=== PATIENT | female | born 1945 | race Caucasian/White ===

== ENCOUNTER 2017-10-25 15:01 | Emergency (ER) | payer MEDICARE, SELFPAY ==
[2017-10-25] VITALS (11 sets, daily range): BP systolic 125–225; BP diastolic 58–93; PULSE 41–70; RESP 12–20; TEMP 36.8; O2SAT 93–98; BMI 45.1
--- NOTE | 2017-10-25 15:29 | ED.VISSUMM ---
- ER Visit Summary Date of Service: 10/25/17 Chief Complaint: Headache and high blood pressure History of Present Illness: The patient is a 71 F who presents for evaluation of 3 weeks of headache and uncontrolled blood pressure. Patient was sent in by Dr. Laird. Patient was on diltiazem and valsartan for blood pressure control, and she stopped taking the diltiazem without telling her doctor in July because she felt her blood pressure was too low. 2 weeks ago she was switched from valsartan to losartan due to valsartan recall. At that time her doctor did not know she did stop the diltiazem. She has been complaining of headache for 3 weeks that is been responsive to Tylenol but returns. The headache is rated an 8 out of 10 now and has been consistent in intensity for the last 3 weeks. It starts on the left upper neck, lower head and radiates around the top of the head to the other side. Patient denies any fever, vision changes, chest pain, new shortness of breath, nausea or vomiting, numbness or weakness in the arms or legs, urinary changes, back pain, or other complaints. She has history of coronary artery disease status post CABG, COPD, diabetes and hypertension. She was just started on diltiazem again yesterday and has had 2 doses. She is on aspirin but no other blood thinners. He has no history of stroke. She does not smoke. Physical Examination: Vital signs: afebrile, hypertensive, no hypoxia on room air General: well nourished, well developed, in no distress, sitting with the lights on Skin: warm, dry, no rash, no pallor HEENT: normocephalic and atraumatic; PERRL, EOMI, no nystagmus, moist mucous membranes Cardiovascular: regular rate and rhythm without murmurs, no peripheral edema, 2+ pulses all distal extremities Respiratory: No increased work of breathing, lungs have mild end expiratory wheezing, no rales or rhonchi Abdominal: Abdomen is soft, nontender with normoactive bowel sounds, no guarding or rebound, no masses MSK: Tenderness to palpation in the left trapezius, with reproduction of the sharp pain radiating into the patient's neck. Moves all extremities, no deformities, normal strength Neuro: Awake and alert, oriented ?4. No facial droop, sensation and motor function intact and symmetric Test Results: Abnormal Lab Results 10/25/17 10/25/17 10/25/17 15:45 15:45 15:45 WBC 8.3 RBC 4.15 L Hgb 11.2 L Hct 37.4 MCV 90.1 MCH 27.0 MCHC 29.9 L RDW 15.8 H RDW Differential 51.7 H Plt Count 270 MPV 10.2 Immature Gran % (Auto) 0.500 Neut % (Auto) 69.7 Lymph % (Auto) 21.3 [place] % (Auto) 5.3 Eos % (Auto) 3.0 Baso % (Auto) 0.2 Absolute Neuts (auto) 5.8 Absolute Lymphs (auto) 1.76 Total Counted Not Reportable PT 13.7 INR 1.1 APTT 32.8 Sodium Potassium Chloride Carbon Dioxide Anion Gap BUN Creatinine Estim Creat Clear Calc Est GFR (MDRD) Af Amer Est GFR (MDRD) Non-Af BUN/Creatinine Ratio Glucose Calcium Total Bilirubin AST ALT Alkaline Phosphatase Troponin I < 0.015 B-Natriuretic Peptide Total Protein Albumin Globulin Albumin/Globulin Ratio 10/25/17 10/25/17 15:45 15:45 WBC RBC Hgb Hct MCV MCH MCHC RDW RDW Differential Plt Count MPV Immature Gran % (Auto) Neut % (Auto) Lymph % (Auto) [place] % (Auto) Eos % (Auto) Baso % (Auto) Absolute Neuts (auto) Absolute Lymphs (auto) Total Counted PT INR APTT Sodium 142 Potassium 3.7 Chloride 103 Carbon Dioxide 32.0 Anion Gap 7 BUN 12 Creatinine 1.14 H Estim Creat Clear Calc 36.32 Est GFR (MDRD) Af Amer 60 Est GFR (MDRD) Non-Af 50 L BUN/Creatinine Ratio 10.5 Glucose 89 Calcium 8.9 Total Bilirubin 0.40 AST 24 ALT 24 Alkaline Phosphatase 135 H Troponin I B-Natriuretic Peptide 195.9 H Total Protein 7.8 Albumin 3.5 Globulin 4.3 H Albumin/Globulin Ratio 0.8 L Clinical Impression(s) from Imaging Studies Brain CT 10/25/17 15:28 IMPRESSION: No acute intracranial process. Electronically Signed: Jorge Tyler, at 16:25 EDT Tel , Service support , Chest X-Ray 10/25/17 16:07 IMPRESSION: There is evidence of underlying COPD without acute superimposed cardiopulmonary process. Electronically Signed: Jorge Tyler, at 17:21 EDT Tel , Service support , Medications Given Discontinued Medications Acetaminophen (Tylenol) 650 mg PO X1 ONE Stop: 10/25/17 16:33 Last Admin: 10/25/17 16:40 Dose: 650 mg Sodium Chloride () 250 mls @ 999 mls/hr IV .Q16M EPHRAIM Stop: 10/25/17 16:45 Last Admin: 10/25/17 16:48 Dose: Sodium Chloride () 500 mls @ 999 mls/hr IV .Q31M ONE Stop: 10/25/17 17:57 Last Admin: 10/25/17 17:28 Dose: 999 mls/hr Labetalol HCl (Trandate) 20 mg IV X1 ONE Stop: 10/25/17 15:29 Last Admin: 10/25/17 15:49 Dose: 20 mg Emergency Department Course and Treatment: Given that patient had persistent hypertension above 210 systolic with multiple blood pressure checks, she was given a small dose of labetalol. At the time of labetalol administration, patient's heart rate was 70. She had improvement of her blood pressure to 170/82 and had improvement of her headache as well. Her heart rate did decrease with brief episodes as low as 40, but mainly in the 50s. Workup performed to evaluate for any end organ damage, and patient had no ischemic changes on EKG, normal troponin, no renal derangements. Head CT showed no mass lesion, intracranial hemorrhage or other acute abnormality. Chest x-ray showed no signs of pulmonary edema or other abnormality. 1625: Patient was reevaluated, and denied any chest pain, shortness of breath, dizziness, lightheadedness and stated that she still felt better. She was monitored closely. Patient continued to remain bradycardic. She received Tylenol for residual headache and had complete resolution of her headache. Heart rate responded appropriately when patient ambulated. It then returned back into the 40s. Patient remained asymptomatic with her bradycardia, and stated she felt much better and wanted to go home. She had been observed for a few hours and had no new symptoms or return of her chief complaint. Patient was discharged home and is to recheck her blood pressure and heart rate in the morning prior to taking her metoprolol. She will follow-up with her doctor closely, especially if her heart rate is still bradycardic, at which time she is to follow-up with her doctor prior to taking her dose of blood pressure medication. Treatment Plan: [] Disposition: discharge home Impression: uncontrolled hypertension, cephalgia This note was generated with [employer] dictation software. It may contain incorrect words, spelling, and punctuation that were not noted in review of the chart prior to signing ED Disposition - Plan for ED Patient: Disposition: Home or Assisted Living Chief Complaint: Hypertension Instructions: ED Cephalgia Unspecified, ED Hypertension Conf Out Of Control Referrals: Levi Laird MD [Primary Care Provider] - 1-2 Days if not improving Additional Instructions: You received Tylenol and a small dose of the blood pressure medication in the emergency department, with improvement of your blood pressure and headache. Your heart rate has been running lower than normal, but you do not have any symptoms from it. Please recheck your heart rate and blood pressure in the morning prior to taking your morning blood pressure medications, especially the metoprolol. If your heart rate is less than 60, please call your doctor prior to taking the metoprolol to see if he still wants you to take it or if you should skip a dose. If you have any worsening of your condition or any new concerning symptoms, please return immediately to the emergency department for another evaluation.
--- NOTE | 2017-10-25 15:33 | ED.DCSUM_ITS ---
- ER Visit Summary Date of Service: 10/25/17 Chief Complaint: Headache and high blood pressure History of Present Illness: The patient is a 71 F who presents for evaluation of 3 weeks of headache and uncontrolled blood pressure. Patient was sent in by Dr. Laird. Patient was on diltiazem and valsartan for blood pressure control, and she stopped taking the diltiazem without telling her doctor in July because she felt her blood pressure was too low. 2 weeks ago she was switched from valsartan to losartan due to valsartan recall. At that time her doctor did not know she did stop the diltiazem. She has been complaining of headache for 3 weeks that is been responsive to Tylenol but returns. The headache is rated an 8 out of 10 now and has been consistent in intensity for the last 3 weeks. It starts on the left upper neck, lower head and radiates around the top of the head to the other side. Patient denies any fever, vision changes, chest pain, new shortness of breath, nausea or vomiting, numbness or weakness in the arms or legs, urinary changes, back pain, or other complaints. She has history of coronary artery disease status post CABG, COPD, diabetes and hypertension. She was just started on diltiazem again yesterday and has had 2 doses. She is on aspirin but no other blood thinners. He has no history of stroke. She does not smoke. Physical Examination: Vital signs: afebrile, hypertensive, no hypoxia on room air General: well nourished, well developed, in no distress, sitting with the lights on Skin: warm, dry, no rash, no pallor HEENT: normocephalic and atraumatic; PERRL, EOMI, no nystagmus, moist mucous membranes Cardiovascular: regular rate and rhythm without murmurs, no peripheral edema, 2 + pulses all distal extremities Respiratory: No increased work of breathing, lungs have mild end expiratory wheezing, no rales or rhonchi Abdominal: Abdomen is soft, nontender with normoactive bowel sounds, no guarding or rebound, no masses MSK: Tenderness to palpation in the left trapezius, with reproduction of the sharp pain radiating into the patient's neck. Moves all extremities, no deformities, normal strength Neuro: Awake and alert, oriented ?4. No facial droop, sensation and motor function intact and symmetric Test Results: Abnormal Lab Results 10/25/17 10/25/17 10/25/17 15:45 15:45 15:45 WBC 8.3 RBC 4.15 L Hgb 11.2 L Hct 37.4 MCV 90.1 MCH 27.0 MCHC 29.9 L RDW 15.8 H RDW Differential 51.7 H Plt Count 270 MPV 10.2 Immature Gran % (Auto) 0.500 Neut % (Auto) 69.7 Lymph % (Auto) 21.3 [place] % (Auto) 5.3 Eos % (Auto) 3.0 Baso % (Auto) 0.2 Absolute Neuts (auto) 5.8 Absolute Lymphs (auto) 1.76 Total Counted Not Reportable PT 13.7 INR 1.1 APTT 32.8 Sodium Potassium Chloride Carbon Dioxide Anion Gap BUN Creatinine Estim Creat Clear Calc Est GFR (MDRD) Af Amer Est GFR (MDRD) Non-Af BUN/Creatinine Ratio Glucose Calcium Total Bilirubin AST ALT Alkaline Phosphatase Troponin I < 0.015 B-Natriuretic Peptide Total Protein Albumin Globulin Albumin/Globulin Ratio 10/25/17 10/25/17 15:45 15:45 WBC RBC Hgb Hct MCV MCH MCHC RDW RDW Differential Plt Count MPV Immature Gran % (Auto) Neut % (Auto) Lymph % (Auto) [place] % (Auto) Eos % (Auto) Baso % (Auto) Absolute Neuts (auto) Absolute Lymphs (auto) Total Counted PT INR APTT Sodium 142 Potassium 3.7 Chloride 103 Carbon Dioxide 32.0 Anion Gap 7 BUN 12 Creatinine 1.14 H Estim Creat Clear Calc 36.32 Est GFR (MDRD) Af Amer 60 Est GFR (MDRD) Non-Af 50 L BUN/Creatinine Ratio 10.5 Glucose 89 Calcium 8.9 Total Bilirubin 0.40 AST 24 ALT 24 Alkaline Phosphatase 135 H Troponin I B-Natriuretic Peptide 195.9 H Total Protein 7.8 Albumin 3.5 Globulin 4.3 H Albumin/Globulin Ratio 0.8 L Clinical Impression(s) from Imaging Studies Brain CT 10/25/17 15:28 IMPRESSION: No acute intracranial process. Electronically Signed: Jorge Tyler, at 16:25 EDT Tel , Service support , Chest X-Ray 10/25/17 16:07 IMPRESSION: There is evidence of underlying COPD without acute superimposed cardiopulmonary process. Electronically Signed: Jorge Tyler, at 17:21 EDT Tel , Service support , Medications Given Discontinued Medications Acetaminophen (Tylenol) 650 mg PO X1 ONE Stop: 10/25/17 16:33 Last Admin: 10/25/17 16:40 Dose: 650 mg Sodium Chloride () 250 mls @ 999 mls/hr IV .Q16M EPHRAIM Stop: 10/25/17 16:45 Last Admin: 10/25/17 16:48 Dose: Sodium Chloride () 500 mls @ 999 mls/hr IV .Q31M ONE Stop: 10/25/17 17:57 Last Admin: 10/25/17 17:28 Dose: 999 mls/hr Labetalol HCl (Trandate) 20 mg IV X1 ONE Stop: 10/25/17 15:29 Last Admin: 10/25/17 15:49 Dose: 20 mg Emergency Department Course and Treatment: Given that patient had persistent hypertension above 210 systolic with multiple blood pressure checks, she was given a small dose of labetalol. At the time of labetalol administration, patient's heart rate was 70. She had improvement of her blood pressure to 170/ 82 and had improvement of her headache as well. Her heart rate did decrease with brief episodes as low as 40, but mainly in the 50s. Workup performed to evaluate for any end organ damage, and patient had no ischemic changes on EKG, normal troponin, no renal derangements. Head CT showed no mass lesion, intracranial hemorrhage or other acute abnormality. Chest x-ray showed no signs of pulmonary edema or other abnormality. 1625: Patient was reevaluated, and denied any chest pain, shortness of breath, dizziness, lightheadedness and stated that she still felt better. She was monitored closely. Patient continued to remain bradycardic. She received Tylenol for residual headache and had complete resolution of her headache. Heart rate responded appropriately when patient ambulated. It then returned back into the 40s. Patient remained asymptomatic with her bradycardia, and stated she felt much better and wanted to go home. She had been observed for a few hours and had no new symptoms or return of her chief complaint. Patient was discharged home and is to recheck her blood pressure and heart rate in the morning prior to taking her metoprolol. She will follow-up with her doctor closely, especially if her heart rate is still bradycardic, at which time she is to follow-up with her doctor prior to taking her dose of blood pressure medication. Treatment Plan: [] Disposition: discharge home Impression: uncontrolled hypertension, cephalgia This note was generated with [employer] dictation software. It may contain incorrect words, spelling, and punctuation that were not noted in review of the chart prior to signing ED Disposition - Plan for ED Patient: Disposition: Home or Assisted Living Chief Complaint: Hypertension Instructions: ED Cephalgia Unspecified, ED Hypertension Conf Out Of Control Referrals: Levi Laird MD [Primary Care Provider] - 1-2 Days if not improving Additional Instructions: You received Tylenol and a small dose of the blood pressure medication in the emergency department, with improvement of your blood pressure and headache. Your heart rate has been running lower than normal, but you do not have any symptoms from it. Please recheck your heart rate and blood pressure in the morning prior to taking your morning blood pressure medications, especially the metoprolol. If your heart rate is less than 60, please call your doctor prior to taking the metoprolol to see if he still wants you to take it or if you should skip a dose. If you have any worsening of your condition or any new concerning symptoms, please return immediately to the emergency department for another evaluation.
[2017-10-25 16:01] LABS: Absolute Lymphocyte Count 1.76 X10^3/ul (0.83-4.51); Absolute Neutrophil Count 5.8 X10^3/uL (2.0-7.7); Basophil# 0.02 X10^3/uL; Basophil% 0.2 % (0-1); Eosinophil# 0.25 X10^3/uL; Hematocrit 37.4 % (37-47); Hemoglobin 11.2 g/dl (12.0-15.0); Lymphocyte # 1.76 X10^3/ul (4.0); Lymphocyte % 21.3 % (19-41); Mean Corp Hgb Conc 29.9 g/gl (32-36); Mean Corpuscular Volume 90.1 fL (81-99); Mean Platelet Vol. 10.2 fl (6.2-12.0); Monocyte# 0.44 X10^3/uL; Monocyte% 5.3 % (0-10); Neutrophil # 5.75 X10^3/uL (2.7-7.7); Neutrophil % 69.7 % (47-70); Platelet Count 270 K/mm3 (150-450); RBC Distribution Width CV 15.8 % (11.6-14.6); RBC Distribution Width SD 51.7 fl (35.1-43.9); Red Blood Count 4.15 M/mm3 (4.2-5.4); White Blood Count 8.3 K/mm3 (4.4-11.0)
[2017-10-25 16:05] LABS: International Normalized Ratio 1.1; Prothrombin Time (Protime)PT. 13.7 SECONDS (11.7-14.9)
[2017-10-25 16:06] LABS: Partial Thromboplast Time 32.8 Seconds (24.1-36.2)
[2017-10-25 16:13] LABS: POSITIVE COUNT NO; POSITIVE DIFFERENTIAL NO; POSITIVE MORPHOLOGY NO
[2017-10-25] MEDS: Acetaminophen 325 MG Tablet 650 MG PO (16:40)
[2017-10-25 16:50] LABS: BNP,B-Type NATRIURETIC PEPTIDE 195.9 pg/mL (0-100)
--- NOTE | 2017-10-25 17:31 | ED.RN ---
MD NOTIFIED OF PT'S BLOOD PRESSURE 125/61, HEART RATE REMAINS IN 40'S. PT DOES REMAIN ASYMPTOMATIC. 500 ML NS BOLUS ORDERED AND STARTED. WILL CONTINUE TO MONITOR.
[2017-10-25 17:40] LABS: BUN 12 mg/dL (7-18); Glucose 89 mg/dL (74-106)
[2017-10-25 17:41] LABS: ALB/GLOB Ratio 0.8 RATIO (0.9-2.4); AST(SGOT) 24 U/L (15-37); Alanine Aminotransfer ALT/SGPT 24 U/L (13-56); Albumin, Serum 3.5 g/dL (3.2-5.0); Alkaline Phosphatase 135 U/L (45-117); Anion Gap 7 (5-15); BUN/Creat Ratio 10.5 RATIO (10-20); Calcium,Total 8.9 mg/dL (8.5-10.1); Chloride 103 mmol/L (98-107); Creatinine, Serum 1.14 mg/dL (0.55-1.02); EST Glomerular Filtration Rate 50 mL/min (>60); Est Glom Filt Rate - Afr Amer 60 mL/min (>60); Estimated Creatinine Clearance 36.32 ml/min; Globulin 4.3 g/dL (2.2-4.2); Potassium 3.7 mmol/L (3.5-5.1); Protein, Total 7.8 g/dL (6.4-8.2); Sodium Level 142 mmol/L (136-145)
--- NOTE | 2017-10-25 18:09 | ED.RN ---
AMBULATED PT PER MD ORDERS, HEART RATE UP TO 68, PT AMBULATED WELL, REMAINED ASYMPTOMATIC. RETURNED PT TO BED, HEART RATE 38-39 AFTER RESTING IN BED. MD NOTIFIED, ANOTHER EKG ORDERED.
--- NOTE | 2017-10-25 19:43 | ED.DEP ---
ED Disposition - Plan for ED Patient: Disposition: Home or Assisted Living Chief Complaint: Hypertension Instructions: ED Hypertension Conf Out Of Control, ED Cephalgia Unspecified Referrals: Levi Laird MD [Primary Care Provider] - 1-2 Days if not improving Additional Instructions: You received Tylenol and a small dose of the blood pressure medication in the emergency department, with improvement of your blood pressure and headache. Your heart rate has been running lower than normal, but you do not have any symptoms from it. Please recheck your heart rate and blood pressure in the morning prior to taking your morning blood pressure medications, especially the metoprolol. If your heart rate is less than 60, please call your doctor prior to taking the metoprolol to see if he still wants you to take it or if you should skip a dose. If you have any worsening of your condition or any new concerning symptoms, please return immediately to the emergency department for another evaluation.
== END 2017-10-25 20:07 | disposition home or self-care (01) ==
PROVIDERS: Emergency Provider Emergency Medicine; Family Provider Family Medicine; PCP Family Medicine
DX: I10 Essential (primary) hypertension (principal); R51 Headache; I25.10 Atherosclerotic heart disease of native coronary artery without angina pectoris; J44.9 Chronic obstructive pulmonary disease, unspecified; E11.9 Type 2 diabetes mellitus without complications; Z95.1 Presence of aortocoronary bypass graft; Z79.82 Long term (current) use of aspirin; Z79.84 Long term (current) use of oral hypoglycemic drugs; Z79.899 Other long term (current) drug therapy; R06.00 Dyspnea, unspecified
CPT/HCPCS: 70450; 71046; 80053; 83880; 84484; 85025; 85610; 85730; 93005; 96361; 96374; 99285; J7040; A4216

== ENCOUNTER → 2017-12-17 16:02 | Outpatient (CLI) | payer MEDICARE, SELFPAY ==
--- NOTE | 2017-12-17 16:17 | BI_ITS ---
MAMMOGRAPHY - BILATERAL SCREENING REASON FOR EXAM: Female, 72 years old. Routine annual screening examination. PERTINENT HISTORY: Non-contributory. TECHNIQUE: Digital bilateral breast dedra (3D mammographic acquisition) in the CC and MLO projections. 2-D mediolateral oblique (MLO) and craniocaudad (CC) views of both breasts were obtained. CAD: Full Field Digital Mammography with Computer Added Detection was performed. COMPARISON: Comparison is made with prior study dated December 01, 2016 and November 05, 2015. FINDINGS: Breast Composition: The breasts are almost entirely fatty. There are no dominant masses or suspicious calcifications. Stable scattered calcifications and is slightly worse on the right side. No other significant abnormalities are identified. There has been no significant change since the prior study. BI/SCREENING MAMM (CAD), BILAT IMPRESSION: Stable bilateral screening mammogram. Yearly follow-up mammogram recommended. (A) ASSESSMENT CATEGORY: BIRADS Category 2: Benign. A letter regarding these results will be sent to the patient by the facility within 30 days. Approximately 10% of breast cancers are not detected by mammography. A normal mammogram should not delay biopsy of a clinically suspicious abnormality. [id number] Electronically Signed: Peter Bahena MD at 10:51 EDT Tel [phone], Service support ,
== END ==
PROVIDERS: Family Provider Family Medicine; PCP Family Medicine; Referring Provider Family Medicine; Visit Provider Family Medicine
DX: Z12.31 Encounter for screening mammogram for malignant neoplasm of breast (principal)
CPT/HCPCS: 77063; 77067

== ENCOUNTER 2018-06-01 10:04 | Inpatient (IN) | payer MEDICARE, SELFPAY ==
[2018-06-01] VITALS (8 sets, daily range): BP systolic 149–191; BP diastolic 68–88; PULSE 77–100; RESP 14–20; TEMP 36.7–37.7; O2SAT 88–97; BMI 42.8; BMI 43.9
--- NOTE | 2018-06-01 10:34 | EKG12_ITS ---
Test Reason : SOB Blood Pressure : / mmHG Vent. Rate : 075 BPM Atrial Rate : 075 BPM P-R Int : 188 ms QRS Dur : 098 ms QT Int : 404 ms P-R-T Axes : 059 039 069 degrees QTc Int : 451 ms Normal sinus rhythm Possible Left atrial enlargement Borderline ECG Confirmed by CHAITANYA DOVE, CARLOS ENRIQUE ([id number]), editorial director DENVER KRAUSE ([id number]) on 06/04/2018 1:05:33 PM Referred By: Quintne Chung Confirmed By:CARLOS ENRIQUE TAVARES MD
--- NOTE | 2018-06-01 10:35 | RAD_ITS ---
STUDY: X-RAY CHEST REASON FOR EXAM: Female, 72 years old. Wheezing and dyspnea TECHNIQUE: PA and lateral views of the chest. COMPARISON: 10/25/2017 FINDINGS: There is hyperinflation of the lungs consistent with chronic obstructive lung disease (COPD). Lungs are clear. There is no demonstrated pleural abnormality. Sternal cerclage wires and vascular clips are present from a prior sternotomy and coronary artery bypass graft procedure (CABG). Borderline cardiomegaly. Normal mediastinum and james. Normal visualized pulmonary arteries. Normal visualized aortic arch and descending thoracic aorta. There are diffuse degenerative changes of the visualized thoracic spine. Normal visualized ribs, clavicles, and shoulders. There is no demonstrated abnormality of the visualized soft tissue structures of the upper abdomen. RAD/Chest PA and Lateral IMPRESSION: No acute cardiopulmonary disease. Electronically Signed: Mike Toussaint DO at 11:43 EDT Tel , Service support ,
[2018-06-01] MEDS: Albuterol 2.5 MG/3 ML VIAL.NEB. INHALATION ×2 (10:45)
[2018-06-01] MEDS: Ipratropium/Albuterol Sulfate 3 ML AMPUL.NEB INHALATION ×2 (10:45→19:23)
[2018-06-01 11:24] LABS: Absolute Lymphocyte Count 1.25 X10^3/ul (0.83-4.51); Absolute Neutrophil Count 7.8 X10^3/uL (2.0-7.7); Basophil# 0.04 X10^3/uL; Basophil% 0.4 % (0-1); Eosinophil# 0.25 X10^3/uL; Eosinophils% 2.4 % (0-5); Hemoglobin 10.3 g/dl (12.0-15.0); Lymphocyte # 1.25 X10^3/ul (4.0); Lymphocyte % 12.2 % (19-41); Mean Corp Hgb Conc 31.2 g/gl (32-36); Mean Corpuscular Volume 89.7 fL (81-99); Mean Platelet Vol. 10.5 fl (6.2-12.0); Monocyte# 0.83 X10^3/uL; Monocyte% 8.1 % (0-10); Neutrophil # 7.82 X10^3/uL (2.7-7.7); Neutrophil % 76.2 % (47-70); POSITIVE COUNT NO; POSITIVE DIFFERENTIAL NO; POSITIVE MORPHOLOGY NO; Platelet Count 280 K/mm3 (150-450); RBC Distribution Width CV 15.5 % (11.6-14.6); RBC Distribution Width SD 50.1 fl (35.1-43.9); Red Blood Count 3.68 M/mm3 (4.2-5.4); White Blood Count 10.3 K/mm3 (4.4-11.0)
[2018-06-01 11:40] LABS: Anion Gap 4 (5-15); BUN 31 mg/dL (7-18); BUN/Creat Ratio 18.9 RATIO (10-20); Calcium,Total 8.6 mg/dL (8.5-10.1); Chloride 104 mmol/L (98-107); Creatinine, Serum 1.64 mg/dL (0.55-1.02); EST Glomerular Filtration Rate 33 mL/min (>60); Est Glom Filt Rate - Afr Amer 40 mL/min (>60); Estimated Creatinine Clearance 26.03 ml/min; Glucose 144 mg/dL (74-106); Potassium 4.3 mmol/L (3.5-5.1); Sodium Level 138 mmol/L (136-145)
--- NOTE | 2018-06-01 11:53 | ED.RN ---
pt 88% on room air, placed on 2 liters nc.
--- NOTE | 2018-06-01 15:10 | ED.DCSUM_ITS ---
History of Present Illness Chief Complaint: Eye Problem Detail of Chief Complaint: Wheezing, cough and shortness of breath Informant: Patient, Family Onset: Days Context: Sudden Onset Timing: Continuous Quality: Eye drainage and swelling started after ciprofloxacin ophthalmic drops Location: Respiratory and ocular bilateral Current Severity: Moderate Maximum Severity: Severe Worsened by: Unable to walk more than 2-3 steps. Was able to walk a couple blocks 1-2 w Relieved by: Nothing Associated Symptoms: Viral symptoms Narrative: Patient is a 72-year-old woman with multiple medical problems who presents with nasal congestion, postnasal drainage, cough, wheezing, dyspnea on exertion and bilateral eye drainage after she was prescribed ciprofloxacin ophthalmic drops. She does complain of itching and has been rubbing her eyes and particularly the left. She denies fever, chills night sweats. She has not been on prednisone in some time. She does have diabetes. She denies headache, photophobia, earache. She denies leg pain or swelling. Chief complaint of right groin pain. There is no history of hemoptysis, pleuritic chest pain. She denies discoloration, swelling or asymmetry of her legs. Prior similar symptoms: No Recent Illness/Hospitalization: No - Past Medical History (1) Hypotension Status: Acute (2) Metabolic encephalopathy Status: Acute (3) Prerenal azotemia Status: Acute (4) Sinus bradycardia Status: Acute (5) CAD (coronary artery disease) Status: Chronic (6) COPD (chronic obstructive pulmonary disease) Status: Chronic (7) Diabetes mellitus type 2 in obese Status: Chronic (8) Dyslipidemia Status: Chronic (9) H/O four vessel coronary artery bypass graft Status: Chronic (10) Morbid obesity with BMI of 40.0-44.9, adult Status: Chronic (11) Pulmonary hypertension Status: Chronic (12) Sleep-disordered breathing Status: Chronic (13) Acute kidney injury Status: Ruled-out Past Medical History - Allergies and Home Meds Allergies/Adverse Reactions: Allergies Penicillins Allergy (Verified 06/01/18 10:05) Hives adhesive tape Adverse Reaction (Verified 06/01/18 10:05) Other Primary Care Physician: Levi Laird MD [Primary Care Provider] - Prior records reviewed: Yes Surgical History: appendectomy, cholecystectomy, - - Surgery includes removal of benign tumor left leg, cholecystectomy appendectomy tonsillectomy and vein stripping. Lives: With Family Smoking Status: Former smoker - Family History Paternal Family History: Reports: No pertinent history Review of Systems General: Reports: Fever, Malaise. Denies: Chills, Subjective, Sweats, Weight loss, - Eyes: Denies: Visual changes - bilaterally, Blurred Vision - bilaterally, Diplopia - Complains of drainage both eyes and itching ENT: Reports: Rhinorrhea. Denies: Bilateral ear pain, Sore throat Cardiovascular: Denies: Chest pain, Palpitations, Heart racing Respiratory: Reports: Dyspnea, Cough, Dyspnea on exertion. Denies: Orthopnea, Paroxysmal nocturnal dyspnea Gastrointestinal: Denies: Abdominal pain, Nausea, Vomiting, Diarrhea, Melena Genitourinary: Denies: Dysuria, Hematuria, Frequency, -, - Musculoskeletal: Reports: Myalgias, Back pain, Extremity Pain - Right groin pain. Denies: Arthralgias, Neck pain, Swelling Skin: Denies: Rash, Wounds Neurological: Denies: Headache, Weakness, Numbness Endocrine: Denies: Polyuria, Polydipsia, Heat intolerance, Cold intolerance, -, - Allergy: Denies: Uticaria Physical Exam Vital Signs/Narrative: Vital Signs Pulse Resp BP Pulse Ox 06/01/18 14:38 80 14 180/80 H 92 06/01/18 11:09 77 18 182/70 H 88 General: Well nourished, Well developed, Obese, No Acute Distress Cardiovascular: Regular rate, Regular rhythm, No murmurs, Normal S1, Normal S2 Respiratory: Chest nontender, Wheezing - Wheezing greater on the right side compared to left, Diminished, Decreased Air Movement Abdomen: Soft, Nontender, Nondistended, Normal bowel sounds, No masses. Negative for: Hepatomegaly, Splenomegaly, Mass, Pulsatile mass Back: Nontender. Negative for: CVA tenderness Extremities: Nontender, No edema, - - There is no asymmetry, swelling, discoloration, leg vein distention, palpable cords or tenderness along the distribution of the deep venous system. Skin: Normal color, No rash. Negative for: Cyanosis, Jaundice Neurological: Alert, Oriented x3, Cranial nerves II-XII grossly intact, Normal Strength, Normal Sensation Psychological: Normal affect, Normal Mood Diagnostic/Tx/Re-eval Chest X-Ray - ED: 2 View, Normal, Heart, Mediastinum, Bony Structures, Chronic Changes, - - Sternal wires noted and clips for bypass surgery noted. X-ray unchanged from October 25, 2017. - Rhythm Strip Rhythm Strip: Sinus Rhythm Rate: 79 Ectopy: None - EKG Initial EKG Interpretation: Sinus Rhythm - Ventricular rate 75. AK interval, Q shinto QT interval axis normal. Possible left atrial enlargement. Unchanged from prior. - Medical Decision Making To evaluate patient's symptoms will obtain chest x-ray appropriate blood work to assess for cardiac etiology versus pulmonary etiology and rule out pneumonia. Patient was reevaluated at 1500. She is still wheezing. [facility] A respiratory panel was obtained as well. Since she was hypoxic with a saturation of 88% she was placed on oxygen and hospitalist was called for admission. She is presently saturating 90% on 3 L. Family and patient were informed that she will be admitted. Spoke with hospitalist. ED Disposition - Plan for ED Patient: Disposition: Acute Care Hospital [facility] Diagnosis: Respiratory failure with hypoxia, Acute exacerbation of chronic obstructive pulmonary disease (COPD), Bronchospasm, Viral conjunctivitis, Allergic conjunctivitis, Chemosis of conjunctiva Referrals: Levi Laird MD [Primary Care Provider] -
[2018-06-01] MEDS: MethylPREDNISolone 125 MG/2 ML Vial 60 MG IV (15:25)
--- NOTE | 2018-06-01 15:58 | HP.PCM_ITS ---
<Stefanie Antonio - Last Filed: 06/01/18 16:22> Problem List (1) Respiratory failure with hypoxia Status: Acute (2) Acute exacerbation of chronic obstructive pulmonary disease (COPD) Status: Acute (3) Bronchospasm Status: Acute (4) Viral conjunctivitis Status: Acute (5) Mitral insufficiency Status: Chronic (6) Tricuspid insufficiency Status: Chronic (7) Pulmonary hypertension Status: Chronic (8) Morbid obesity with BMI of 40.0-44.9, adult Status: Chronic (9) Sleep-disordered breathing Status: Chronic (10) CAD (coronary artery disease) Status: Chronic (11) H/O four vessel coronary artery bypass graft Status: Chronic (12) Dyslipidemia Status: Chronic (13) COPD (chronic obstructive pulmonary disease) Status: Chronic (14) Acute kidney injury Status: Acute (15) Diabetes mellitus type 2 in obese Status: Chronic (16) Prerenal azotemia Status: Resolved History of Present Illness Date of Admission: 06/01/18 Chief Complaint: Eye irritation, URI sx. The patient is a 72 year old F who presents to the ER due to BL eye irritation, shortness of breath and URI sx. She reports cough, worsening today with sputum production. Intermittent fever, chills. She reports shortness of breath ongoing for the last 2 weeks, worsening yesterday and today. She states on sunday she was placed on ciprofloxacin eyedrops due to suspected pinkeye. She reports her eye irritation and crusting has not improved since that time. She complains of redness surrounding her eyes and was concerned she might be allergic to the eyedrops. She reports she was taken off of her HCTZ yesterday by her primary care physician due to elevated creatinine. She has a past medical history of COPD, type 2 diabetes mellitus, hypertension, hyperlipidemia, anxiety, morbid obesity, GERD. Past Medical History Past Medical History (Chronic Problems): Chronic Problems Mitral insufficiency (Chronic) Tricuspid insufficiency (Chronic) Pulmonary hypertension (Chronic) Morbid obesity with BMI of 40.0-44.9, adult (Chronic) Sleep-disordered breathing (Chronic) CAD (coronary artery disease) (Chronic) H/O four vessel coronary artery bypass graft (Chronic) Dyslipidemia (Chronic) COPD (chronic obstructive pulmonary disease) (Chronic) Diabetes mellitus type 2 in obese (Chronic) Allergies Penicillins Allergy (Verified 06/01/18 10:05) Hives adhesive tape Adverse Reaction (Verified 06/01/18 10:05) Other Home Medications: Ambulatory Orders Medication Instructions Recorded Amitriptyline HCl [Elavil] 100 mg PO QHS 04/09/13 Diltiazem HCl [Cartia Xt] 240 mg PO DAILY 12/25/16 Metformin(XR) [Glucophage Xr] 500 mg PO DAILY 12/25/16 Omeprazole 40 mg PO DAILY 12/25/16 Pioglitazone [Actos] 30 mg PO DAILY 12/25/16 Tiotropium Unity [Spiriva] 1 puff INHALATION DAILY 12/25/16 Aspirin E.C. [Ecotrin] 81 mg PO DAILY 10/25/17 Atorvastatin Calcium 80 mg PO DAILY 10/25/17 Gabapentin [Neurontin] 300 mg PO .COMPLEX 10/25/17 Losartan Potassium 100 mg PO DAILY 10/25/17 Amlodipine Besylate 10 mg PO DAILY 06/01/18 Carvedilol 25 mg PO DAILY 06/01/18 Ciprofloxacin HCl 06/01/18 Surgical History: appendectomy, cholecystectomy, - - Surgery includes removal of benign tumor left leg, cholecystectomy appendectomy tonsillectomy and vein stripping. 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 Maternal History Items: - - Denies known maternal cardiac history. Review of Systems Constitutional: Reports: Chills, Fever, Malaise, Weakness. Denies: Weight Change HEENT: Reports: - - Bilateral eye irritation with erythema and crusting. Denies: Head Aches, Sinus Congestion, Sinus Drainage, Sore Throat Cardiovascular: Denies: Chest Pain, Edema, Light Headedness, Palpitations, Syncope Respiratory: Reports: Cough, Shortness of Breath, Sputum production, Wheezing Gastrointestinal: Denies: Abdominal Pain, Nausea, Vomiting Genitourinary: Denies: Dysuria Musculoskeletal: Denies: Joint Pain, Joint Tenderness Skin: Denies: Rash, Wounds Neurological: Denies: Numbness, Tingling, Focal weakness Psychiatric: Reports: Anxiety Hematologic/ Lymphatic: Denies: Easy Bruising, Easy Bleeding VTE Information - Inpt Only VTE Present on Admission: No VTE Mechan Device Prophylaxis: None VTE Pharm Prophylaxis ordered?: Yes Patient Problems: Active and Suspected Problems Respiratory failure with hypoxia (Acute) Acute exacerbation of chronic obstructive pulmonary disease (COPD) (Acute) Bronchospasm (Acute) Viral conjunctivitis (Acute) Allergic conjunctivitis (Acute) Chemosis of conjunctiva (Acute) - Physical Exam General: Alert, Oriented x3, Cooperative HEENT: Atraumatic, PERRLA, EOMI, Normocephalic, - - Bilateral eye erythema with mild crusting bilaterally Oral: Moist Mucosa Neck: Supple, No JVD, Negative Carotid Bruits Lungs: Diminished, Wheezes Cardiovascular: Regular rate, Regular Rhythm, Normal S1, Normal S2, No murmurs Abdomen: Bowel Sounds Present, Soft, Non Tender, Non-Distended, Obese Extremities: No clubbing, No cyanosis, No edema, Capillary Refill Less than 3 Seconds Skin: No rashes, No breakdown Musculoskeletal: No Tenderness to Palpation of Joints or Extremities Neurological: Cranial nerves II-XII grossly intact, Neuro grossly intact Psych/Mental Status: Normal Affect, Appropriate Vital Signs Temp Pulse Resp BP Pulse Ox 98.7 F 84 17 191/72 H 94 06/01/18 10:06 06/01/18 15:25 06/01/18 15:25 06/01/18 15:25 06/01/18 15:25 Oxygen Flow Rate (L/min) 3 Oxygen Delivery Method Nasal Cannula Weight: 242 lb Body Mass Index (BMI) 42.8 Finger Stick Blood Glucose 155 Laboratory Tests Past 24 Hrs 06/01/18 06/01/18 11:10 11:10 WBC 10.3 RBC 3.68 L Hgb 10.3 L Hct 33.0 L MCV 89.7 MCH 28.0 MCHC 31.2 L RDW 15.5 H RDW Differential 50.1 H Plt Count 280 MPV 10.5 Immature Gran % (Auto) 0.700 Neut % (Auto) 76.2 H Lymph % (Auto) 12.2 L [place] % (Auto) 8.1 Eos % (Auto) 2.4 Baso % (Auto) 0.4 Absolute Neuts (auto) 7.8 H Absolute Lymphs (auto) 1.25 Total Counted Not Reportable Sodium 138 Potassium 4.3 Chloride 104 Carbon Dioxide 30.0 Anion Gap 4 L BUN 31 H Creatinine 1.64 H Estim Creat Clear Calc 26.03 Est GFR (MDRD) Af Amer 40 L Est GFR (MDRD) Non-Af 33 L BUN/Creatinine Ratio 18.9 Glucose 144 H Calcium 8.6 Troponin I < 0.015 Assessment/Plan All Active Problems Respiratory failure with hypoxia (Acute) Acute exacerbation of chronic obstructive pulmonary disease (COPD) (Acute) Bronchospasm (Acute) Viral conjunctivitis (Acute) Allergic conjunctivitis (Acute) Chemosis of conjunctiva (Acute) Acute kidney injury (Acute) Prerenal azotemia (Resolved) 1. Acute hypoxia secondary to exacerbation of COPD-chest x-ray without acute process. Check respiratory panel/influenza. IV solu-Medrol. Albuterol and DuoNeb aerosols. Continue supplement oxygen to maintain O2 above 90%. Walking pulse ox prior to discharge. Recommend establishing with pulmonary medicine as an outpatient. 2. Suspected viral URI with associated bilateral viral conjunctivitis- discontinue Cipro eyedrops. Respiratory panel pending as noted above. 3. Hypertensive urgency-patient's HCTZ discontinued yesterday. She also reports she has not taken her daily medications yet today. Resume home amlodipine, carvedilol, Cardizem and losartan regimen. As needed hydralazine for systolic blood pressure greater than 160. 4. KURT on CKD stage III-gentle IV fluids. Trend BMP. Suspect secondary to HCTZ regimen. 5. Type 2 diabetes mellitus-hold home metformin regimen. Accu-Cheks before meals at bedtime with sliding scale insulin. 6. Mild normocytic anemia- stable 7. Anxiety-continue home amitriptyline regimen. 8. GERD-continue PPI. 9. Hyperlipidemia-continue statin. 10. Morbid obesity-encouraged lifestyle modifications. DVT prophylaxis-heparin subcu. This patient was seen by TREVOR Gomez under the supervision of Dr. Chung. <Quinten Chung F - Last Filed: 06/01/18 17:52> History of Present Illness The patient is a 72 year old F [] Past Medical History Allergies Penicillins Allergy (Verified 06/01/18 10:05) Hives adhesive tape Adverse Reaction (Verified 06/01/18 10:05) Other - Physical Exam Vital Signs Temp Pulse Resp BP Pulse Ox 98.0 F 94 20 H 185/88 H 97 06/01/18 17:00 06/01/18 17:00 06/01/18 17:00 06/01/18 17:00 06/01/18 17:00 Oxygen Flow Rate (L/min) 2 Oxygen Delivery Method Nasal Cannula Weight: 248 lb Body Mass Index (BMI) 43.9 Finger Stick Blood Glucose 155 Laboratory Tests Past 24 Hrs 06/01/18 06/01/18 11:10 11:10 WBC 10.3 RBC 3.68 L Hgb 10.3 L Hct 33.0 L MCV 89.7 MCH 28.0 MCHC 31.2 L RDW 15.5 H RDW Differential 50.1 H Plt Count 280 MPV 10.5 Immature Gran % (Auto) 0.700 Neut % (Auto) 76.2 H Lymph % (Auto) 12.2 L [place] % (Auto) 8.1 Eos % (Auto) 2.4 Baso % (Auto) 0.4 Absolute Neuts (auto) 7.8 H Absolute Lymphs (auto) 1.25 Total Counted Not Reportable Sodium 138 Potassium 4.3 Chloride 104 Carbon Dioxide 30.0 Anion Gap 4 L BUN 31 H Creatinine 1.64 H Estim Creat Clear Calc 26.03 Est GFR (MDRD) Af Amer 40 L Est GFR (MDRD) Non-Af 33 L BUN/Creatinine Ratio 18.9 Glucose 144 H Calcium 8.6 Troponin I < 0.015 Code Visit Addendum: Dr. Chung I personally examined the patient and reviewed the chart. I agree with the above. 72-year-old female presenting because she felt that her eyes are getting worse. She was initially treated as an outpatient with eyedrops for conjunctivitis, presented to the ER because of bilateral eye irritation. On exam she was found more consistent with an upper respiratory infection, respiratory panel is pending. She also has a history of COPD and has been having increased cough and wheezing today. Will admit for COPD exacerbation and hypoxia given her need for oxygen, when she does not have any baseline need at home. We will continue with steroids and DuoNeb inhalation. Of note she does have excoriation on her left hand that does appear to be eczema, hopefully the systemic steroids will take care of it otherwise will need a topical steroid. Also her blood pressure was elevated and looking through her home medications she was on 25 mg of Coreg daily, will change that to 25 twice daily, her heart rate and her blood pressure should be able to handle that dosing, especially since she had her hydrochlorothiazide recently discontinued. She does have lower extremity and upper extremity edema and this is likely secondary to her Norvasc which is at 10 mg, so hopefully with the change to twice daily dosing for the Coreg we may be able to lower her Norvasc to 5 mg daily. Inpatient E&M: 77124 Init Hosp L3
--- NOTE | 2018-06-01 16:08 | NURSING ---
319 COPD EXAC CANDACE
[2018-06-01 18:16] LABS: Bedside Glucose 212 mg/dL (70-110)
[2018-06-01] MEDS: Insulin Lispro 100 UNIT/ML INSULN.PEN SQ ×2 (18:34→21:52)
[2018-06-01] MEDS: amLODIPine 10 MG Tablet PO (18:42)
[2018-06-01] MEDS: Losartan Potassium 100 MG Tablet PO (18:42)
[2018-06-01] MEDS: dilTIAZem CD 240 MG Capsule PO (18:42)
[2018-06-01] MEDS: Gabapentin 300 MG Capsule 600 MG PO (21:55)
[2018-06-01] MEDS: Amitriptyline 100 MG Tablet PO (21:55)
[2018-06-01] MEDS: Atorvastatin Calcium 80 MG Tablet PO (21:55)
[2018-06-01] MEDS: Carvedilol 25 MG Tablet PO (21:55)
[2018-06-02] VITALS (45 sets, daily range): BP systolic 52–147; BP diastolic 37–72; PULSE 38–117; RESP 10–27; TEMP 34.2–36.6; O2SAT 88–100
[2018-06-02] MEDS: Ipratropium/Albuterol Sulfate 3 ML AMPUL.NEB INHALATION ×2 (06:21→10:35)
[2018-06-02 06:28] LABS: Absolute Lymphocyte Count 0.68 X10^3/ul (0.83-4.51); Absolute Neutrophil Count 7.6 X10^3/uL (2.0-7.7); Hemoglobin 9.6 g/dl (12.0-15.0); Lymphocyte # 0.68 X10^3/ul (4.0); Lymphocyte % 8.2 % (19-41); Mean Corpuscular Hgb 27.4 pg (27.0-32.0); Mean Corpuscular Volume 88.6 fL (81-99); Mean Platelet Vol. 10.5 fl (6.2-12.0); Monocyte# 0.06 X10^3/uL; Monocyte% 0.7 % (0-10); Neutrophil # 7.56 X10^3/uL (2.7-7.7); Neutrophil % 90.6 % (47-70); Platelet Count 262 K/mm3 (150-450); RBC Distribution Width CV 15.4 % (11.6-14.6); RBC Distribution Width SD 50.1 fl (35.1-43.9); White Blood Count 8.3 K/mm3 (4.4-11.0)
[2018-06-02 06:33] LABS: POSITIVE COUNT NO; POSITIVE DIFFERENTIAL NO; POSITIVE MORPHOLOGY NO
[2018-06-02 06:39] LABS: Anion Gap 7 (5-15); BUN 36 mg/dL (7-18); Calcium,Total 8.4 mg/dL (8.5-10.1); Chloride 104 mmol/L (98-107); Creatinine, Serum 1.89 mg/dL (0.55-1.02); EST Glomerular Filtration Rate 28 mL/min (>60); Est Glom Filt Rate - Afr Amer 34 mL/min (>60); Estimated Creatinine Clearance 22.58 ml/min; Glucose 197 mg/dL (74-106); Potassium 4.4 mmol/L (3.5-5.1); Sodium Level 138 mmol/L (136-145)
[2018-06-02] MEDS: Insulin Lispro 100 UNIT/ML INSULN.PEN SQ ×3 (07:09→22:54)
[2018-06-02 07:16] LABS: Bedside Glucose 176 mg/dL (70-110)
[2018-06-02] MEDS: Gabapentin 300 MG Capsule PO (08:36)
[2018-06-02] MEDS: dilTIAZem CD 240 MG Capsule PO (08:36)
[2018-06-02] MEDS: Aspirin E.C. 81 MG Tablet PO (08:36)
[2018-06-02] MEDS: Pantoprazole Sodium 40 MG Tablet PO (08:36)
[2018-06-02] MEDS: Losartan Potassium 100 MG Tablet PO (08:36)
[2018-06-02] MEDS: Carvedilol 25 MG Tablet PO (08:36)
[2018-06-02] MEDS: amLODIPine 10 MG Tablet PO (08:37)
[2018-06-02] MEDS: Enoxaparin 30 MG/0.3 ML Syringe SC (10:45)
[2018-06-02] MEDS: 0.9% Normal Saline 1,000 ML 250 ML IV (10:48)
[2018-06-02 12:12] LABS: Anion Gap 8 (5-15); BUN 42 mg/dL (7-18); BUN/Creat Ratio 18.8 RATIO (10-20); Calcium,Total 8.2 mg/dL (8.5-10.1); Chloride 101 mmol/L (98-107); Creatinine, Serum 2.23 mg/dL (0.55-1.02); EST Glomerular Filtration Rate 23 mL/min (>60); Est Glom Filt Rate - Afr Amer 28 mL/min (>60); Estimated Creatinine Clearance 19.14 ml/min; Glucose 321 mg/dL (74-106); Potassium 4.4 mmol/L (3.5-5.1); Sodium Level 134 mmol/L (136-145)
--- NOTE | 2018-06-02 13:14 | PN_ITS ---
<Stefanie Antoino - Last Filed: 06/02/18 14:15> Patient Problems: Active and Suspected Problems Respiratory failure with hypoxia (Acute) Acute exacerbation of chronic obstructive pulmonary disease (COPD) (Acute) Bronchospasm (Acute) Viral conjunctivitis (Acute) Allergic conjunctivitis (Acute) Chemosis of conjunctiva (Acute) Subjective: Patient seen and examined. Breathing improved. Reports intermittent dizziness, worse when standing and while ambulating during ambulatory pulse ox this afternoon. She was hoping to be discharged however with rising creatinine and recommended continued monitoring for this, she is agreeable to stay. - Physical Exam General: Alert, Oriented x3, Cooperative HEENT: Atraumatic, PERRLA, EOMI, Normocephalic Oral: Moist Mucosa Neck: Supple, No JVD, Negative Carotid Bruits Lungs: Clear to auscultation, Diminished Cardiovascular: Regular rate, Regular Rhythm, Normal S1, Normal S2, No murmurs Abdomen: Bowel Sounds Present, Soft, Non Tender, Non-Distended, Obese Extremities: No clubbing, No cyanosis, No edema, Capillary Refill Less than 3 Seconds Skin: No rashes, No breakdown Musculoskeletal: No Tenderness to Palpation of Joints or Extremities Neurological: Cranial nerves II-XII grossly intact, Neuro grossly intact Psych/Mental Status: Normal Affect, Appropriate Vital Signs Temp Pulse Resp BP Pulse Ox 97.8 F 48 L 16 94/56 L 92 06/02/18 12:40 06/02/18 12:40 06/02/18 12:40 06/02/18 12:44 06/02/18 12:40 Oxygen Flow Rate (L/min) 1 Oxygen Delivery Method Room Air Weight: 248 lb Body Mass Index (BMI) 43.9 Finger Stick Blood Glucose 155 Intake and Output for Last 24 Hours 05/31/18 06/01/18 06/02/18 23:59 23:59 23:59 Intake Total 711 / 711 918 / 918 Balance 711 / 711 918 / 918 Microbiology Past 72 Hours 06/01/18 15:35 Respiratory Panel (PCR) - Final Mucosa - Nasopharyngeal Laboratory Tests Past 24 Hrs 06/02/18 06/02/18 06/02/18 05:42 05:42 11:32 WBC 8.3 RBC 3.50 L Hgb 9.6 L Hct 31.0 L MCV 88.6 MCH 27.4 MCHC 31.0 L RDW 15.4 H RDW Differential 50.1 H Plt Count 262 MPV 10.5 Immature Gran % (Auto) 0.500 Neut % (Auto) 90.6 H Lymph % (Auto) 8.2 L [place] % (Auto) 0.7 Eos % (Auto) 0.0 Baso % (Auto) 0.0 Absolute Neuts (auto) 7.6 Absolute Lymphs (auto) 0.68 L Total Counted Not Reportable Sodium 138 134 L Potassium 4.4 4.4 Chloride 104 101 Carbon Dioxide 27.0 25.0 Anion Gap 7 8 BUN 36 H 42 H Creatinine 1.89 H 2.23 H Estim Creat Clear Calc 22.58 19.14 Est GFR (MDRD) Af Amer 34 L 28 L Est GFR (MDRD) Non-Af 28 L 23 L BUN/Creatinine Ratio 19.0 18.8 Glucose 197 H 321 H Calcium 8.4 L 8.2 L POC Glucose 06/02/18 06/01/18 07:08 18:03 POC Glucose 176 H 212 H Medical Necessity - Tobacco Use Smoking Status: Former smoker Tobacco Use: Cigarettes Assessment/Plan All Active Problems Respiratory failure with hypoxia (Acute) Acute exacerbation of chronic obstructive pulmonary disease (COPD) (Acute) Bronchospasm (Acute) Viral conjunctivitis (Acute) Allergic conjunctivitis (Acute) Chemosis of conjunctiva (Acute) Acute kidney injury (Acute) Prerenal azotemia (Resolved) 1. Acute hypoxia secondary to exacerbation of COPD-chest x-ray without acute process. Respiratory panel negative. IV solu-Medrol. Albuterol and DuoNeb aerosols. Patient has been weaned off of supplemental oxygen. Recommend establishing with pulmonary medicine as an outpatient. 2. Suspected viral URI with associated bilateral viral conjunctivitis- discontinue Cipro eyedrops. Continue supportive management. 3. Hypertensive urgency-patient's HCTZ discontinued prior to admission. Resume home amlodipine, carvedilol, Cardizem regimen. Hold losartan regimen given acute kidney injury. As needed hydralazine for systolic blood pressure greater than 160. Patient's blood pressure is now on the low side. Continue to monitor. 4. KURT on CKD stage III-gentle IV fluids. Trend BMP. If patient's creatinine continues to go up despite hydration, will obtain renal ultrasound and urine studies tomorrow with possible nephrology consult as well. 5. Type 2 diabetes mellitus-hold home metformin regimen. Accu-Cheks before meals at bedtime with sliding scale insulin. 6. Mild normocytic anemia- stable 7. Anxiety-continue home amitriptyline regimen. 8. GERD-continue PPI. 9. Hyperlipidemia-continue statin. 10. Morbid obesity-encouraged lifestyle modifications. DVT prophylaxis-heparin subcu. This patient was seen by TREVOR Gomez under the supervision of Dr. Resendiz. <Trent Resendiz - Last Filed: 06/02/18 15:35> Subjective: Shortness of breath is improved. Patient had dizziness and lightheadedness while walking around nursing station. - Physical Exam General: Alert, Oriented x3, Cooperative HEENT: Atraumatic, PERRLA, EOMI, Normocephalic Neck: Supple, No JVD, Negative Carotid Bruits Lungs: Clear to auscultation, Normal air movement, No rhonchi, No wheeze, No rales, Diminished Cardiovascular: Regular rate, No murmurs Abdomen: Bowel Sounds Present, Soft, Non Tender, Obese Extremities: No edema, Capillary Refill Less than 3 Seconds Skin: No rashes, No breakdown Musculoskeletal: No Tenderness to Palpation of Joints or Extremities, Arthritic Changes Neurological: Cranial nerves II-XII grossly intact, Neuro grossly intact Psych/Mental Status: Normal Affect, Appropriate Vital Signs Temp Pulse Resp BP Pulse Ox 97.8 F 48 L 16 94/56 L 92 06/02/18 12:40 06/02/18 12:40 06/02/18 12:40 06/02/18 12:44 06/02/18 12:40 Oxygen Flow Rate (L/min) 1 Oxygen Delivery Method Room Air Weight: 248 lb Body Mass Index (BMI) 43.9 Finger Stick Blood Glucose 155 Intake and Output for Last 24 Hours 05/31/18 06/01/18 06/02/18 23:59 23:59 23:59 Intake Total 711 / 711 918 / 918 Balance 711 / 711 918 / 918 Microbiology Past 72 Hours 06/01/18 15:35 Respiratory Panel (PCR) - Final Mucosa - Nasopharyngeal Laboratory Tests Past 24 Hrs 06/02/18 06/02/18 06/02/18 05:42 05:42 11:32 WBC 8.3 RBC 3.50 L Hgb 9.6 L Hct 31.0 L MCV 88.6 MCH 27.4 MCHC 31.0 L RDW 15.4 H RDW Differential 50.1 H Plt Count 262 MPV 10.5 Immature Gran % (Auto) 0.500 Neut % (Auto) 90.6 H Lymph % (Auto) 8.2 L [place] % (Auto) 0.7 Eos % (Auto) 0.0 Baso % (Auto) 0.0 Absolute Neuts (auto) 7.6 Absolute Lymphs (auto) 0.68 L Total Counted Not Reportable Sodium 138 134 L Potassium 4.4 4.4 Chloride 104 101 Carbon Dioxide 27.0 25.0 Anion Gap 7 8 BUN 36 H 42 H Creatinine 1.89 H 2.23 H Estim Creat Clear Calc 22.58 19.14 Est GFR (MDRD) Af Amer 34 L 28 L Est GFR (MDRD) Non-Af 28 L 23 L BUN/Creatinine Ratio 19.0 18.8 Glucose 197 H 321 H Calcium 8.4 L 8.2 L POC Glucose 06/02/18 06/02/18 06/02/18 14:43 12:28 07:08 POC Glucose 309 H 403 H 176 H 06/01/18 18:03 POC Glucose 212 H Assessment/Plan This patient was seen in conjunction with NETWORK SYSTEMS CONSULTANTStefanie. I have independently interviewed and examined the patient and reviewed pertinent history, examination findings, laboratory and plan of management. I have reviewed the note and agree with the documented findings with the few additional points. In brief, patient is admitted for COPD exacerbation with acute hypoxia. Chest x-ray did not show acute process. Respiratory panel was negative patient improved on bronchodilator, Solu-Medrol was weaned off oxygen. Patient had creatinine elevated and she was on HCTZ which was discontinued 1 or 2 days prior to admission by PCP. IV fluid rehydration. Renal ultrasound. Patient had a rapid response in afternoon. Please see the rapid response note I have discussed my assessment with Stefanie GONZALEZ and orders have been reviewed. Code Visit Inpatient E&M: 99176 Subs Hosp L3
[2018-06-02 13:16] LABS: Bedside Glucose 403 mg/dL (70-110)
--- NOTE | 2018-06-02 14:20 | ECHOD_ITS ---
Reason For Study: Dyspnea/SOB Procedure This was a 2D Doppler, Color Flow transthoracic echocardiogram. The study was technically difficult. Patient scanned supine. Exam performed portable in ICU/CCU. Left Ventricle Normal LV size. Left ventricular systolic function is normal. The estimated ejection fraction is 60 %. Stage 2 diastolic dysfunction. No regional wall motion abnormalities noted. Right Ventricle Normal RV size. Normal systolic function. Atria The left atrium is mildly enlarged. Normal right atrium. Prominent eustachian valve. Mitral Valve Bileaflet diffuse mitral valve thickening. Mild (1+) eccentric mitral valve insufficiency. Tricuspid Valve Normal tricuspid valve. Mild to moderate (1-2+) tricuspid valve insufficiency. Pulmonary artery systolic pressure is 44 mmHg. Aortic Valve Trisinus/trileaflet aortic valve. Mild focal aortic valve calcification. Pulmonic Valve Normal pulmonic valve. Great Vessels Normal aortic root. The pulmonary artery is normal size. Normal inferior vena cava. Pericardium/Pleural No pericardial effusion. MMode/2D Measurements & Calculations LVIDd: 4.7 cm IVSd: 1.3 cm Ao root diam: 3.2 cm LVIDs: 3.1 cm LVPWd: 1.1 cm RVDd: 3.8 cm FS: 34.2 % LAV(MOD-bp): 51.4 ml LA A4 area: 20.6 cm2 LA dimension(2D): 4.8 cm LAV(MOD-bp) Indexed: 23.9 ml/m2 LAV(MOD-sp2): 40.6 ml LAV(MOD-sp4): 62.6 ml RA A4 area: 12.9 cm2 Doppler Measurements & Calculations MV E max enmanuel: 101.9 cm/sec Lat Peak E' Enmanuel: 4.3 cm/sec Med Peak E' Enmanuel: 5.3 cm/sec MV A max enmanuel: 87.2 cm/sec E/E' lat: 23.9 E/E' med: 19.3 MV E/A: 1.2 Ao V2 max: 163.1 cm/sec LV V1 max: 117.8 cm/sec PA V2 max: 123.3 cm/sec Ao max P.6 mmHg LV V1 max P.5 mmHg Ao V2 mean: 116.1 cm/sec Ao mean P.1 mmHg Ao V2 VTI: 37.1 cm PI end-d enmanuel: 114.6 cm/sec TR max enmanuel: 318.7 cm/sec TR max P.6 mmHg Interpretation Summary Normal LV size. Left ventricular systolic function is normal. The estimated ejection fraction is 60 %. Stage 2 diastolic dysfunction. Mild (1+) eccentric mitral valve insufficiency. Compared to prior study, there is no significant change. Ordering Physician: TREVOR Gomez Referring Physician: Levi Laird Performed By: Jasmine Harris RDCS, RVT
--- NOTE | 2018-06-02 14:36 | EKG12_ITS ---
Test Reason : SYNCOPE Blood Pressure : / mmHG Vent. Rate : 041 BPM Atrial Rate : 062 BPM P-R Int : 000 ms QRS Dur : 100 ms QT Int : 528 ms P-R-T Axes : 000 042 063 degrees QTc Int : 435 ms Atrial fibrillation Abnormal ECG Confirmed by ELLEN DOVE, MARKUS ([id number]), supervising film or videotape editor DENVER KRAUSE ([id number]) on 06/10/2018 11:57:36 AM Referred By: Quinten Chung Confirmed By:MARKUS HUGHES MD
[2018-06-02 14:56] LABS: Bedside Glucose 309 mg/dL (70-110)
[2018-06-02] MEDS: 0.9% Normal Saline 1,000 ML 999 ML IV ×2 (15:00→16:00)
--- NOTE | 2018-06-02 15:09 | NURSING ---
Dr. Resendiz at bedside, pt remains nola HR 36. 82/46 1510 - atropine 0.5mg given IV, NS bolus continues at 999ml/hr 1511- 108/54 HR 45, pulse ox 87% O2 2L NC 1512 - NRB mask applied 1513 - 0.5mg atropine given IV 1514 - HR 42, EKG completed at this time 1516 - 98/49 HR 40.
[2018-06-02] MEDS: Atropine Sulfate 1 MG/10 ML Syringe 0.5 MG IV ×2 (15:10→15:39)
--- NOTE | 2018-06-02 15:32 | RRT_ITS ---
Rapid Response Note Rapid response was called. The patient was sitting on the toilet and trying to push her bowel but then suddenly was found minimally responsive on the toilet seat. Rapid response was called. Patient was found bradycardic and hypotensive. Heart rate 36, blood pressure 90/45. Patient was laid on the bed. Patient looks very tired and sleepy. She is responsive and answers question but sleepy and minimally responsive IV fluid normal saline 1 L bolus ordered. Hold beta-blockers. Twelve-lead EKG done shows A. fib at 41 bpm. Admitting EKG normal sinus rhythm at 75 bpm. Looking on her home medication it seems she was on 37.5 mg twice daily and was decreased to 25 mg twice daily yesterday. She is also on Norvasc 10 mg daily. Recently HCTZ was discontinued because of elevated creatinine Creatinine went upFrom 1.64 to 2.23 And lightheaded on walking around the nursing station as she was 1-2 L of oxygen in the morning but last 192% on room air When the patient moved to PCU, she is still bradycardic, heart rate 35-40/min and was minimally responsive. Atropine Assessment and plan Syncope: Most probably vasovagal syncope or possible new onset A. fib with bradycardia Transferred to ICU Stat labs ordered. CBC, BMP, magnesium, phosphorus and troponin. 2D echo ordered. Discussed with Dr. Clarke Wait and watch see the response of IV fluid. If she still bradycardic, hypotensive will need dopamine drip. Patient Problems: Active and Suspected Problems Respiratory failure with hypoxia (Acute) Acute exacerbation of chronic obstructive pulmonary disease (COPD) (Acute) Bronchospasm (Acute) Viral conjunctivitis (Acute) Allergic conjunctivitis (Acute) Chemosis of conjunctiva (Acute) - Physical Exam General: Lethargic, - HEENT: Atraumatic, EOMI, Normocephalic Neck: Supple, No JVD, Negative Carotid Bruits Lungs: Clear to auscultation, No rhonchi, No wheeze, Diminished - Air entry is diminished Cardiovascular: Bradycardic, Irregular Rate Abdomen: Bowel Sounds Present, Soft, Non Tender, Non-Distended Extremities: Capillary Refill Less than 3 Seconds, Edema Skin: No rashes Musculoskeletal: No Tenderness to Palpation of Joints or Extremities, Arthritic Changes Neurological: Cranial nerves II-XII grossly intact, Deep Tendon Reflexes 2+/4 and Symmetrical Vital Signs Temp Pulse Resp BP Pulse Ox 97.8 F 48 L 16 94/56 L 92 06/02/18 12:40 06/02/18 12:40 06/02/18 12:40 06/02/18 12:44 06/02/18 12:40 Oxygen Flow Rate (L/min) 1 Oxygen Delivery Method Room Air Weight: 248 lb Body Mass Index (BMI) 43.9 Finger Stick Blood Glucose 155 Intake and Output for Last 24 Hours 05/31/18 06/01/18 06/02/18 23:59 23:59 23:59 Intake Total 711 / 711 918 / 918 Balance 711 / 711 918 / 918 Microbiology Past 72 Hours 06/01/18 15:35 Respiratory Panel (PCR) - Final Mucosa - Nasopharyngeal Laboratory Tests Past 24 Hrs 06/02/18 06/02/18 06/02/18 05:42 05:42 11:32 WBC 8.3 RBC 3.50 L Hgb 9.6 L Hct 31.0 L MCV 88.6 MCH 27.4 MCHC 31.0 L RDW 15.4 H RDW Differential 50.1 H Plt Count 262 MPV 10.5 Immature Gran % (Auto) 0.500 Neut % (Auto) 90.6 H Lymph % (Auto) 8.2 L [facility] % (Auto) 0.7 Eos % (Auto) 0.0 Baso % (Auto) 0.0 Absolute Neuts (auto) 7.6 Absolute Lymphs (auto) 0.68 L Total Counted Not Reportable Sodium 138 134 L Potassium 4.4 4.4 Chloride 104 101 Carbon Dioxide 27.0 25.0 Anion Gap 7 8 BUN 36 H 42 H Creatinine 1.89 H 2.23 H Estim Creat Clear Calc 22.58 19.14 Est GFR (MDRD) Af Amer 34 L 28 L Est GFR (MDRD) Non-Af 28 L 23 L BUN/Creatinine Ratio 19.0 18.8 Glucose 197 H 321 H Calcium 8.4 L 8.2 L POC Glucose 06/02/18 06/02/18 06/01/18 12:28 07:08 18:03 POC Glucose 403 H 176 H 212 H Assessment/Plan All Active Problems Respiratory failure with hypoxia (Acute) Acute exacerbation of chronic obstructive pulmonary disease (COPD) (Acute) Bronchospasm (Acute) Viral conjunctivitis (Acute) Allergic conjunctivitis (Acute) Chemosis of conjunctiva (Acute) Acute kidney injury (Acute) Prerenal azotemia (Resolved)
[2018-06-02] MEDS: DOPamine IV 800 MG/250 ML IV.SOLN. 10.546 MG CONT INF ×2 (15:57→21:00)
[2018-06-02 16:12] LABS: Anion Gap 9 (5-15); BUN 43 mg/dL (7-18); BUN/Creat Ratio 17.4 RATIO (10-20); Chloride 104 mmol/L (98-107); Creatinine, Serum 2.47 mg/dL (0.55-1.02); EST Glomerular Filtration Rate 20 mL/min (>60); Est Glom Filt Rate - Afr Amer 25 mL/min (>60); Estimated Creatinine Clearance 17.28 ml/min; Glucose 267 mg/dL (74-106); Magnesium 2.2 mg/dL (1.6-2.6); Potassium 4.6 mmol/L (3.5-5.1); Sodium Level 136 mmol/L (136-145)
[2018-06-02 16:19] LABS: Phosphorus 4.7 mg/dL (2.5-4.9)
--- NOTE | 2018-06-02 16:38 | NURSING ---
1240 completed walking O2 test with patient in hallway. she walked 1/[address] around small loop in hallway and then stated that she was getting tired and wanted to sit in the chairs in the hallway to rest. pt sat for about 10 minutes without complaint. denied light-headedness or dizziness. stated she was ready to walk back to room and made about 10 steps before she stated she was dizzy and her knees began to buckle. pt was assisted into a chair and then wheeled back to her room. vital signs were taken and blood sugar checked. after sitting, pt stated she felt better and was able to pivot into bed without difficulty. pt tried to elevate head of bed and again stated she felt dizzy. head of bed lowered and pt stated improvement. Stefanie Antonio notified and came to unit to see patient. 1400 pt called out requesting to use bathroom. RN entered room to find pt sitting on side of bed. vital signs checked and this RN asked pt to use BSC instead of ambulating to bathroom. pt agreed and attempted to use BSC. Elvira RN, stayed with pt but pt was unable to void on the BSC and asked to use bathroom. pt again denied dizziness and walked to bathroom without difficulty. while on commode, she experienced dizziness and although she did not become unresponsive, her responses were very delayed and she had difficulty sitting up. PYRIDINE OPERATOR was called at this time. Dr Resendiz and Stefanie Antonio to bedside and decision was made to transport patient to PCU. 1L NS IV bolus was started, EKG and stat troponin ordered.
[2018-06-02] MEDS: 0.9% Normal Saline 1,000 ML 125 ML IV (17:00)
[2018-06-02] MEDS: Atropine Sulfate 1 MG/10 ML Syringe IV (17:19)
--- NOTE | 2018-06-02 17:20 | CON.PCM_ITS ---
Problem List (1) Bradycardia Status: Acute (2) Hypotension Status: Acute (3) CAD (coronary artery disease) Status: Chronic (4) H/O four vessel coronary artery bypass graft Status: Chronic (5) Dyslipidemia Status: Chronic (6) HTN (hypertension) Status: Chronic (7) Diabetes mellitus type 2 in obese Status: Chronic (8) COPD (chronic obstructive pulmonary disease) Status: Chronic (9) Acute kidney injury Status: Acute Reason for Consult Date of Consultation: 06/02/18 History of Present Illness: The patient is a 72 year old female with a past cardiovascular history which has included underlying hyperlipidemia, hypertension, CAD, status post CABG, MR/TR, superimposed on diabetes mellitus, and COPD who was referred for evaluation of bradycardia, hypotension, and a possible vasovagal mediated event. The patient has been following with [facility] cardiology. According to the family members present the patient has had medication adjustments recently based upon concerns of her heart rate at times being bradycardic and her blood pressure being both low and high. The patient has been on multiple medications. This has included beta-blockers with carvedilol at 37.5 mg twice daily. She was also on simultaneous diltiazem CD at 240 mg daily. She was on HCTZ. She had also been placed on amlodipine at 10 mg a day. They note that because of her fluctuating heart rate being low at times and her blood pressures being low and high her medicines were adjusted. They believe that her diltiazem CD was discontinued approximately 2 weeks ago. They received a message to discontinue her HCTZ, however, they state that message was not received until after she was hospitalized. The patient states that at home she has episodes where she passes out. The patient lives with 1 of her daughters. Both daughters are present today. They state she has episodes at home where she becomes weak, mildred at the knees, and is noted during those times based upon her home heart rate/blood pressure device to have heart rates in the 40s and systolic blood pressures as low as the 70s. She will have to rest, drink some fluids, and then her heart rate and blood pressures eventually resolved. However, at the same time they note at home that she has episodes of systolic blood pressures in excess of 170 mmHg thus she has undergone manipulation of her medications. The daughters do not believe the patient has actually lost consciousness at home. 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 The nephrology consultation has not yet occurred. The patient denies, as to her daughters, any recent complaints of chest discomfort suspicious for angina pectoris. There is been no episodes of acute CHF or pulmonary edema. She has undergone cardiovascular evaluation in the past. This has included transthoracic echocardiogram with the most recent one being performed on 12/26/2016. At that point in time according to report her left ventricle was thought to be normal with an LVEF of 60% with mild left atrial enlargement moderate MR/TR and mild focal aortic valve calcification with a calcified aortic root. Her estimated RV systolic pressure was 40 mmHg. She has had previous pharmacologic stress nuclear imaging study performed on 04/09/2013. At that time she had changes that could not exclude myocardial ischemia and portions of the basal inferolateral segments extending toward the mid inferolateral segments. She subsequently underwent diagnostic cardiac catheterization under the direction of Yehuda Gaxiola MD on 04/10/2013. At that time according to the report the left main coronary artery had distal 50% stenosis and calcification, the LAD had proximal 60% stenosis and calcification subsequently followed by 75% stenosis and subsequently giving left to left collateral flow to the LCx distribution, the LCx was noted to have an ostial 99% stenosis, and the RCA was noted to have proximal 60% stenosis followed by mid 60-70% stenosis, the right PDA had ostial 50-60% stenosis. The patient was subsequently referred to [facility] where she underwent CABG. The results are unavailable at this time for review. The family does not recall the patient undergoing additional cardiovascular testing since that time. They states she has been treated medically. The main concern has been adjusting her medications based upon heart rate and blood pressure response. The patient was brought to the hospital recently because of initial concerns of pinkeye. This was evaluated as an outpatient. However there were concerns about shortness of breath and dyspnea. She was eventually evaluated at [facility] and thought to have an underlying COPD exacerbation. She was placed in the hospital for further evaluation and care. During her hospi talization her initial cardiac enzyme was negative. Her initial ECG demonstrated normal sinus rhythm with a ventricular rate of approximately 75 bpm with possible left atrial enlargement. Her creatinine level was somewhat elevated. The shunt was reported as improving with treatment of underlying COPD exacerbation. She requested discharge home today to be out a family event. However earlier this day upon walking with the nurses she reportedly buckled at the knees and was noted to have a transient bradycardia with a ventricular rate in the 40s and a transient hypotension with a systolic blood pressure of approximately 90 mmHg. She was returned to bed. She apparently stabilized and improved. She then was attempting to have a bowel movement. She states she was straining which she always does. At that point in time she was reported as having an unresponsive event. She was evaluated by [facility]. She was thought at that time to have bradycardia once again with a ventricular rate in the 40s as well as being hypotensive with a systolic blood pressure of approximately 90 mmHg. She was not on telemetry monitoring at the time. An ECG was performed which demonstrated what was thought to be atrial fibrillation although there are findings potentially compatible with intermittent attempts at regaining a junctional versus sinus rhythm. She had no other acute ECG changes. She was in itially treated with IV fluids and transported to the PCU. Based upon ongoing concerns of bradycardia she continued to receive IV fluids but also received a total of 1 mg of atropine. She had no significant change in her heart rate or blood pressure. A follow-up ECG demonstrated somatic/motion artifact with findings again potentially compatible with atrial fibrillation with intermittent episodes of attempts at junctional versus sinus rhythm. She was then placed in the ICU for further evaluation and care. In the ICU she was receiving IV fluids. She was also placed on IV dopamine. She appeared to maintain ventricular heart rates in the 40-50 bpm range. It appeared she had episodes of junctional rhythm as well as attempts at regaining sinus rhythm. Her blood pressures waxed and waned. It was noted that during an attempt at obtaining an ABG, which was unsuccessful via the radial artery approach on the left, that she again became hypotensive potentially compatible with a vasovagal/vasodilatory effect as her heart rate did not significantly change but her blood pressure decreased. She received additional IV fluids. She has been responding to verbal stimuli. She has denied ongoing chest discomfort compatible with angina pectoris. She has had no acute respiratory deterioration. She is denied nausea or emesis. She has not become diaphoretic. She states she has felt tired. She is going to receive CVC placement under the direction of Dr. Resendiz for better venous access for IV fluids and vasopressor agents. [] Past Medical History Allergies/Adverse Reactions: Allergies Penicillins Allergy (Verified 06/01/18 10:05) Hives adhesive tape Adverse Reaction (Verified 06/01/18 10:05) Other Home Medications: Ambulatory Orders Medication Instructions Recorded RX: Amitriptyline HCl [Elavil] 100 mg PO QHS 04/09/13 RX: Diltiazem HCl [Cartia Xt] 240 mg PO DAILY 12/25/16 RX: Metformin(XR) [Glucophage Xr] 500 mg PO DAILY 12/25/16 RX: Omeprazole 40 mg PO DAILY 12/25/16 RX: Pioglitazone [Actos] 30 mg PO DAILY 12/25/16 RX: Tiotropium [place] [Spiriva] 1 puff INHALATION DAILY 12/25/16 Atorvastatin Calcium 80 mg PO DAILY 10/25/17 Losartan Potassium 100 mg PO DAILY 10/25/17 RX: Aspirin E.C. [Ecotrin] 81 mg PO DAILY 10/25/17 RX: Gabapentin [Neurontin] 300 mg PO .COMPLEX 10/25/17 Amlodipine Besylate 10 mg PO DAILY 06/01/18 Carvedilol 37.5 mg PO BID 06/01/18 RX: Ciprofloxacin 0.3% [Ciloxan] 2 drop OPHTHALMIC 4X/DAY 06/01/18 Past Medical History (Chronic Problems): Chronic Problems HTN (hypertension) (Chronic) Mitral insufficiency (Chronic) Tricuspid insufficiency (Chronic) Pulmonary hypertension (Chronic) Morbid obesity with BMI of 40.0-44.9, adult (Chronic) Sleep-disordered breathing (Chronic) CAD (coronary artery disease) (Chronic) H/O four vessel coronary artery bypass graft (Chronic) Dyslipidemia (Chronic) COPD (chronic obstructive pulmonary disease) (Chronic) Diabetes mellitus type 2 in obese (Chronic) Surgical History: appendectomy, cholecystectomy, - - Surgery includes removal of benign tumor left leg, cholecystectomy appendectomy tonsillectomy and vein stripping. 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 Paternal History Items: - - Denies known paternal cardiac history. Lives: With Family Smoking Status: Former smoker Tobacco Use: Cigarettes Alcohol: None Drugs: None Review of Systems - Review of Systems Cardiovascular: Reports: Lightheadedness, Dizziness, Near Syncope. Denies: Chest Discomfort, Shortness of Breath, Orthopnea, PND, Peripheral Edema, Palpitations, Syncope Subjectve: 72-year-old obese white female who remains in the ICU responding to verbal stimuli and noted to be bradycardic and hypotensive. Objective: Vital Signs Temp Pulse Resp BP Pulse Ox 96.2 F L 52 L 12 82/72 L 93 06/02/18 16:00 06/02/18 16:54 06/02/18 16:30 06/02/18 16:54 06/02/18 16:54 Oxygen Flow Rate (L/min) 1 Oxygen Delivery Method Venturi Mask Weight: 248 lb Body Mass Index (BMI) 43.9 Finger Stick Blood Glucose 155 Intake and Output for Last 24 Hours 05/31/18 06/01/18 06/02/18 23:59 23:59 23:59 Intake Total 711 / 711 918 / 918 Balance 711 / 711 918 / 918 General: Awake, Cooperative, Obese HEENT: Atraumatic, Normocephalic, PERRL, EOMI, Sclera Non Icteric Neck: Supple, Good ROM, No JVD Lungs: Clear to auscultation Cardiovascular: Irregular Rhythm, Normal S1, Normal S2 Vascular: No Carotid Bruits Abdomen: Bowel Sounds Present, Soft, Non Tender Extremities: No edema 06/02/18 05:42: WBC 8.3, RBC 3.50 L, Hgb 9.6 L, Hct 31.0 L, MCV 88.6, MCH 27.4, MCHC 31.0 L, RDW 15.4 H, RDW Differential 50.1 H, Plt Count 262, MPV 10.5, Immature Gran % (Auto) 0.500, Neut % (Auto) 90.6 H, Lymph % (Auto) 8.2 L, Coffee % (Auto) 0.7, Eos % (Auto) 0.0, Baso % (Auto) 0.0, Absolute Neuts (auto) 7.6, Total Counted Not Reportable 06/02/18 05:42: Sodium 138, Potassium 4.4, Chloride 104, Carbon Dioxide 27.0, Anion Gap 7, BUN 36 H, Creatinine 1.89 H, Est GFR (MDRD) Af Amer 34 L, Est GFR (MDRD) Non-Af 28 L, BUN/Creatinine Ratio 19.0, Glucose 197 H, Calcium 8.4 L 06/02/18 11:32: Sodium 134 L, Potassium 4.4, Chloride 101, Carbon Dioxide 25.0, Anion Gap 8, BUN 42 H, Creatinine 2.23 H, Est GFR (MDRD) Af Amer 28 L, Est GFR (MDRD) Non-Af 23 L, BUN/Creatinine Ratio 18.8, Glucose 321 H, Calcium 8.2 L 06/02/18 15:44: Sodium 136, Potassium 4.6, Chloride 104, Carbon Dioxide 23.0, Anion Gap 9, BUN 43 H, Creatinine 2.47 H, Est GFR (MDRD) Af Amer 25 L, Est GFR (MDRD) Non-Af 20 L, BUN/Creatinine Ratio 17.4, Glucose 267 H, Calcium 8.0 L, Magnesium 2.2, Troponin I < 0.015 06/02/18 15:44: Phosphorus 4.7 Rhythm: As noted above EKG: As noted above ECHO: As noted above Echo: 06-02-18: Quick look, hand-held, bedside, portable transthoracic echocardiogram: limited study: Based upon the 2D echocardiographic images obtained there appears to be overall preserved left ventricular size, wall motion, and systolic function; based upon color flow Doppler images obtained there appeared to be no obvious hemodynamically significant valvular heart disease appreciated; based upon 2D echocardiographic images obtained there appeared to be no obvious pericardial effusion Stress Test: As noted above Cardiac Cath: As noted above CT Surgery: Port unavailable for review at this time CXR: 06-01-18: Per radiology report: No acute cardiopulmonary disease reported Assessment/Plan 1. Bradycardia/hypotension The patient apparently has been having issues with her heart rate and blood pressure at home as well as here at [facility]. It appears that at home, similar to what she has experienced here, there is been concerns of bradycardia and hypotension. There has also been concerns of difficulty controlling hypertension. Today she had a recurrent episode similar to what the family describes at home when she was up and ambulating. She had another episode with attempting to have a bowel movement. The second episode was suspicious for a vasovagal event. She is now in the ICU based upon her bradycardia and hypotension. She has required IV fluids as well as attempts at medical therapy for her bradycardia with IV atropine and IV dopamine. Her heart rate has improved somewhat. Her blood pressure has waxed and waned. Her cardiac rhythm has been monitored. During this time it appears she has had episodes where she is attempting to regain sinus rhythm, other episodes where it appears she has transient junctional rhythm, and other episodes where she has had transient atrial fibrillation. She has had additional laboratory studies performed. It is noted her creatinine level has been increasing. This may be secondary to a combination of her decreased intravascular volume status as well as potentially her bradycardia and hypotension and decreased perfusion. The present time she will continue to be monitored. Her rate limiting medications are being held. Her antihypertensive medicines are being held. She is receiving IV dopamine. She is receiving IV fluids. It is unclear at this time as to whether or not, noting that she has had episodes where her heart rate has not changed but her blood pressure has dropped independently, which may be more of a vasodilatory type effect, that placing a temporary transvenous pacemaker would be beneficial or not. However, depending upon her clinical course, she may need an attempt at a temporary transvenous pacemaker to see if it helps improve her cardiovascular hemodynamics. Also, as her clinical course progresses, consideration will be given as to whether or not she needs consideration for future permanent pacemaker. 2. CAD status post CABG There has been no evidence of ongoing acute coronary syndrome. However based on his history she will be followed. This will include cardiac enzyme levels as well as ECG follow-up. An echocardiogram has been requested to evaluate left ventricular wall motion and systolic function. She will continue medical the rapy as deemed appropriate although medications at the moment that negatively impact heart rate or blood pressure are on hold. 3. Hyperlipidemia She will continue lipid-lowering therapy as deemed appropriate. 4. Hypertension Her family states that has been difficult to control her hypertension as well. They note that a request was made by her primary care physician for nephrology input. At the present time her blood pressures will be followed. Her medicines are being adjusted to compensate for hypotension. Over time she may need, especially if she becomes hypertensive once again, further input from other physicians as deemed appropriate. 5. Diabetes mellitus She will continue under the care of internal medicine for this. 6. COPD She apparently has long-standing COPD. She will continue evaluation care by internal medicine. 6. Renal insufficiency Her creatinine level was elevated upon admission. They are concerned this may have been related to decreased intravascular volume secondary to her diuretic therapy. The family states she has also not want to take in oral fluids unless encouraged to do so. Her creatinine level has increased. This may be secondary to concerns of her diminished intravascular volume but also secondary to concerns of her transient bradycardia and hypotension. At the present time her laboratory studies will be followed. She is receiving IV fluids as noted above. Her renal function may need to be further assessed by nephrology. Comment: The above has been discussed and reviewed with the patient, her multiple family members present, and Dr. Resendiz. Comment: Time spent in the patient's evaluation and care: Minimum: 120 minutes This note was generated with [employer] dictation software. It may contain incorrect words, spelling, and punctuation that were not noted in checking the note before signing.
--- NOTE | 2018-06-02 17:28 | RAD_ITS ---
STUDY: X-RAY CHEST REASON FOR EXAM: Female, 72 years old. Line placement. TECHNIQUE: Portal chest. COMPARISON: 06/01/2018. FINDINGS: Right internal jugular line terminates in the superior vena cava. There is no demonstrated pneumothorax. The lungs are clear and expanded. There is no demonstrated pleural abnormality. Normal size heart. Sternotomy wires are present. Normal mediastinum and james. Normal visualized pulmonary arteries. There is atherosclerotic calcification of the aortic arch. Normal visualized thoracic spine. Normal visualized ribs, clavicles, and shoulders. There is no demonstrated abnormality of the visualized soft tissue structures of the upper abdomen. RAD/CXR for Line Placement IMPRESSION: Right IJ line terminates in the SVC. No demonstrated pneumothorax. Electronically Signed: Jolie Her MD at 18:59 EDT Tel , Service support ,
--- NOTE | 2018-06-02 17:46 | PCM.OP.PRO ---
Procedure Report Date of Procedure: 06/02/18 Right ultrasound-guided triple-lumen catheter insertion Indication: Needs vasopressor, dopamine for severe bradycardia Procedure note Informed consent was taken from daughter. Right neck was sterilized and draped in a sterile manner. With ultrasound probe, right IJ was located. Under ultrasound guidance with antiseptic technique, right IJ was cannulated in one attempt and then with guidewire was passed and dilated with dilator. triple-lumen catheter was inserted under guidewire and good blood flow return from all 3 ports. Triple-lumen catheter was secured and sutured. No hematoma. Chest x-ray was ordered and checked. Deep of right IJ in right atrium. Code Visit Procedures: [id number] Insert Non-tunnel CV Cath
--- NOTE | 2018-06-02 17:52 | PRO.PCM_ITS ---
Procedure Report Date of Procedure: 06/02/18 Right ultrasound-guided triple-lumen catheter insertion Indication: Needs vasopressor, dopamine for severe bradycardia Procedure note Informed consent was taken from daughter. Right neck was sterilized and draped in a sterile manner. With ultrasound probe, right IJ was located. Under ultrasound guidance with antiseptic technique, right IJ was cannulated in one attempt and then with guidewire was passed and dilated with dilator. triple- lumen catheter was inserted under guidewire and good blood flow return from all 3 ports. Triple-lumen catheter was secured and sutured. No hematoma. Chest x-ray was ordered and checked. Deep of right IJ in right atrium. Code Visit Procedures: [id number] Insert Non-tunnel CV Cath
--- NOTE | 2018-06-02 18:31 | NURSING ---
1832 Dr. Resendiz at bedside preparing for intubation VS 56 28 70% 99/49 attempting to determine better SPO2 very poor circulation at this time 183 etomidate given 20 mg 183 pt bagged per RT 183 55 11 83% 113/90 w/ spontaneous resp 183 glydescope advanced, suctioned, ETT inserted + color change 23 cm @ lip, + bilateral breath sounds, 7.5 cm ETT 84 15 95% bagging 184 1 mg versed given 76/54
[2018-06-02] MEDS: Etomidate 20 MG/10 ML Vial IV (18:35)
--- NOTE | 2018-06-02 18:42 | RAD_ITS ---
STUDY: X-RAY CHEST REASON FOR EXAM: Female, 72 years old. Endotracheal tube placement TECHNIQUE: Portable chest COMPARISON: Same day FINDINGS: There is a central venous catheter tip in the superior vena cava. There is placement of an endotracheal tube tip 2.8 cm proximal to the lauren. An orogastric tube tip in the stomach. There are sternal wires. There are stable scattered bilateral mild pulmonary opacities. There is no demonstrated pleural abnormality. There is stable cardiomegaly. Normal mediastinum and james. Normal visualized pulmonary arteries. Normal visualized aortic arch and descending thoracic aorta. Normal visualized thoracic spine. Normal visualized ribs, clavicles, and shoulders. There is no demonstrated abnormality of the visualized soft tissue structures of the upper abdomen. RAD/Chest 1 View (Portable) IMPRESSION: Stable cardiomegaly, lines and tubes as above Stable mild scattered bilateral pulmonary opacities Electronically Signed: Perry Rod, at 21:01 EDT Tel , Service support ,
[2018-06-02] MEDS: fentaNYL drip 100 ML 2.5 MCG CONT INF (18:50)
[2018-06-02] MEDS: Midazolam 2 MG/2 ML Syringe IV (18:55)
--- NOTE | 2018-06-02 19:00 | PCM.OP.PRO ---
Problem List (1) Decreased responsiveness Status: Acute (2) Acute hypoxic respiratory failure Status: Acute Procedure Report Date of Procedure: 06/02/18 Procedure note for intubation Indication: 1. Minimal responsive: To protect airway 2. Acute hypoxic respiratory failure: Her pulse ox was 91 to 92% on 50% FiO2 but at times pulse ox probe was not able to track real pulse ox. Procedure note 20 mg IV etomidate given. Under aseptic precaution and Glideoscope, epiglottis was identified. Patient had mild gastric aspirate and vomitus as soon as epiglottis was touched. Gastric aspirate was aspirated and suctioned. Patient was intubated with 7.5 mm ET tube. Colorimeter changed color. Good breath sounds was heard on both lungs. ET tube was secured. OT tube was passed. Chest x-ray, portable was done The tip of ET tube overlaps with sternal wires but seems 2 centimeter above lauren. OG tube in the stomach but again overlapped with many potline monitor wires. Official report pending. Code Visit Procedures: [id number] Insert Emergency Airway
--- NOTE | 2018-06-02 19:10 | PRO.PCM_ITS ---
Problem List (1) Decreased responsiveness Status: Acute (2) Acute hypoxic respiratory failure Status: Acute Procedure Report Date of Procedure: 06/02/18 Procedure note for intubation Indication: 1. Minimal responsive: To protect airway 2. Acute hypoxic respiratory failure: Her pulse ox was 91 to 92% on 50% FiO2 but at times pulse ox probe was not able to track real pulse ox. Procedure note 20 mg IV etomidate given. Under aseptic precaution and Glideoscope, epiglottis was identified. Patient had mild gastric aspirate and vomitus as soon as epiglottis was touched. Gastric aspirate was aspirated and suctioned. Patient was intubated with 7.5 mm ET tube. Colorimeter changed color. Good breath sounds was heard on both lungs. ET tube was secured. OT tube was passed. Chest x-ray, portable was done The tip of ET tube overlaps with sternal wires but seems 2 centimeter above lauren. OG tube in the stomach but again overlapped with many operations representative wires. Official report pending. Code Visit Procedures: [id number] Insert Emergency Airway
--- NOTE | 2018-06-02 20:04 | OP.PCM_ITS ---
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 Hypotension. CAD status post CABG. Hyperlipidemia. Hypertension. Diabetes mellitus. COPD. Acute renal insufficiency Post-Operative Diagnosis: Bradycardia. Hypotension. CAD status post CABG. Hy perlipidemia. Hypertension. Diabetes mellitus. COPD. Acute renal insufficiency Surgery/Procedure Performed:: Temporary transvenous pacemaker Description of Surgical Findings:: Procedure: Temporary transvenous pacemaker Indications: Bradycardia; hypotension Consent: Signed by family members present Premedications: IV fentanyl infusion per the ICU staff Procedure: The right inguinal area was prepped and draped in the standard sterile fashion. 2% Xylocaine was used for local anesthesia. The right femoral vein was accessed and a #7 [place] temporary transvenous pacemaker sheath was placed. A #5 [place] balloon tipped temporary transvenous pacemaker wire was advanced under fluoroscopic guidance to the level of the right ventricle. The temporary transvenous pacemaker setting was placed in a VVI mode with a PPM of 80 and an output of 5 mV with a sensitivity of 5 V. The temporary transvenous pacemaker sheath was secured in place with 2-0 silk and sterile OpSite dressing. Complications: The patient tolerated the procedure well without obvious complication. Type of Anesthesia:: IV Sedation Anesthesiologist: Alex Clarke Special Medications: IV fentanyl continuous infusion per the ICU staff Specimen's removed: N/A Description of Procedure: Procedure: Temporary transvenous pacemaker Indications: Bradycardia; hypotension Consent: Signed by family members present Premedications: IV fentanyl infusion per the ICU staff Procedure: The right inguinal area was prepped and draped in the standard sterile fashion. 2% Xylocaine was used for local anesthesia. The right femoral vein was accessed and a #7 [place] temporary transvenous pacemaker sheath was placed. A #5 [place] balloon tipped temporary transvenous pacemaker wire was advanced under fluoroscopic guidance to the level of the right ventricle. The temporary transvenous pacemaker setting was placed in a VVI mode with a PPM of 80 and an output of 5 mV with a sensitivity of 5 V. The temporary transvenous pacemaker sheath was secured in place with 2-0 silk and sterile OpSite dressing. Complications: The patient tolerated the procedure well without obvious complication. - Complications None - Admit VTE Documentation VTE Present on Admission: No
--- NOTE | 2018-06-02 20:17 | CL.IE_ITS ---
Patient: JULISSA VEGA Study Date: 06/02/2018 Performing: Alex Clarke MD : [id number] Age: 72 Gender: female PROCEDURES PERFORMED [id number] INTRAVENTRICULAR PACING INDICATIONS Syncope Bradycardia; Hypotension PROCEDURE DETAILS The patient was brought to the Catheterization Lab in the postabsorptive nonsedated state. [facility] consent was obtained prior to the procedure. Temporary pacemaker turned on, Temporary pacemaker w as secured and left in place at the completion of the procedure . The patient tolerated the procedur e well. Estimated Blood Loss: 10 ml's IMPLANTED / EX-PLANTED DEVICES DEVICE PARAMETERS Temporary Transvenous Pacemaker Settings: VVI; PPM @ 80 PPM; Output @ 5 mV; Sensitivity @ 5 V CONCLUSIONS / RECOMMENDATIONS Device Conclusions: Successful implantation of a single chamber temporary transvenous pacemaker Device Recommendations: Further evaluation / care per cardiology PROCEDURE MEDICATIONS Signed By Alex Clarke MD On 06/02/2018 20:16:15 Alex Clarke MD
[2018-06-02 20:31] LABS: Base Excess -6 mmol/L (-2 to +2); Bicarbonate 21.1 mmol/L (22-26); Blood Gas Specimen Type ART; FI02 100; Mode A-C; O2 Delivery Device Vent; PEEP 5; PO2 101 mmHG (75-100); RR 14; SITE R Radial; SO2 96 % (95-99); Time Given 2020; Total Carbon Dioxide 23 mmol/L; Vt 450; pCO2 49.7 mmHg (35-45); pH 7.24 (7.35-7.45)
[2018-06-02] MEDS: Propofol 10MG/Ml 1,000 MG/100 ML Bottle 6.749 MG CONT INF (21:00)
[2018-06-02 21:32] LABS: CPK Total, Creatine Kinase 112 U/L (26-192); Triglycerides 91 mg/dL
[2018-06-02] MEDS: QUEtiapine 25 MG Tablet 50 MG PO (21:59)
[2018-06-02] MEDS: Amitriptyline 100 MG Tablet PO (22:40)
[2018-06-02] MEDS: Atorvastatin Calcium 80 MG Tablet PO (22:40)
[2018-06-02] MEDS: Gabapentin 300 MG Capsule 600 MG PO (22:40)
[2018-06-02] MEDS: Chlorhexidine 15 ML PO (22:51)
[2018-06-02 22:54] LABS: M R Staph aureus DNA By PCR Negative (Negative); Probe Check PASS; Specimen Processing Control PASS
--- NOTE | 2018-06-02 22:55 | PN.CARD_ITS ---
Subjectve: The patiently is currently sedated and mechanically intubated/ventilated. She has a right IJ CVC. She has a right femoral vein temporary transvenous pacemaker. The patient was reported by the ICU staff to have moved her right lower extremity. She then lost her temporary transvenous pacemaker ventricular paced rhythm. She was noted once again to become bradycardic. Her blood pressures, which have remained low, apparently decreased further. Her O2 saturation has maintained greater than 90%. This was despite continuing her IV fluids, her IV dopamine, and her IV levo fed. Objective: Vital Signs Temp Pulse Resp BP Pulse Ox 96.2 F L 81 16 97/44 L 97 06/02/18 16:00 06/02/18 20:35 06/02/18 20:35 06/02/18 19:00 06/02/18 20:35 Oxygen Flow Rate (L/min) 1 Oxygen Delivery Method Mechanical Ventilator Weight: 248 lb Body Mass Index (BMI) 43.9 Finger Stick Blood Glucose 155 Intake and Output for Last 24 Hours 05/31/18 06/01/18 06/02/18 23:59 23:59 23:59 Intake Total 711 / 711 918 / 918 Balance 711 / 711 918 / 918 General: Ill Appearing, Obese Lungs: - - Disseminated upper airway sounds Cardiovascular: Regular Rhythm, Normal S1, Normal S2 Abdomen: Bowel Sounds Present, Soft Extremities: No edema 06/02/18 05:42: WBC 8.3, RBC 3.50 L, Hgb 9.6 L, Hct 31.0 L, MCV 88.6, MCH 27.4, MCHC 31.0 L, RDW 15.4 H, RDW Differential 50.1 H, Plt Count 262, MPV 10.5, Immature Gran % (Auto) 0.500, Neut % (Auto) 90.6 H, Lymph % (Auto) 8.2 L, Cameron % (Auto) 0.7, Eos % (Auto) 0.0, Baso % (Auto) 0.0, Absolute Neuts (auto) 7.6, Total Counted Not Reportable 06/02/18 05:42: Sodium 138, Potassium 4.4, Chloride 104, Carbon Dioxide 27.0, Anion Gap 7, BUN 36 H, Creatinine 1.89 H, Est GFR (MDRD) Af Amer 34 L, Est GFR (MDRD) Non-Af 28 L, BUN/Creatinine Ratio 19.0, Glucose 197 H, Calcium 8.4 L 06/02/18 11:32: Sodium 134 L, Potassium 4.4, Chloride 101, Carbon Dioxide 25.0, Anion Gap 8, BUN 42 H, Creatinine 2.23 H, Est GFR (MDRD) Af Amer 28 L, Est GFR (MDRD) Non-Af 23 L, BUN/Creatinine Ratio 18.8, Glucose 321 H, Calcium 8.2 L 06/02/18 15:44: Sodium 136, Potassium 4.6, Chloride 104, Carbon Dioxide 23.0, Anion Gap 9, BUN 43 H, Creatinine 2.47 H, Est GFR (MDRD) Af Amer 25 L, Est GFR (MDRD) Non-Af 20 L, BUN/Creatinine Ratio 17.4, Glucose 267 H, Calcium 8.0 L, Magnesium 2.2, Troponin I < 0.015 06/02/18 15:44: Phosphorus 4.7 06/02/18 20:24: pH 7.24 L, Bicarbonate Actual 21.1 L, POC Total CO2 23, Base Excess -6 L, O2 Saturation 96, ABG pCO2 49.7 H, ABG pO2 101 H 06/02/18 20:45: Triglycerides 91 Rhythm: Electronic ventricular paced rhythm; junctional rhythm Medical Necessity - Tobacco Use Smoking Status: Former smoker Tobacco Use: Cigarettes Assessment/Plan 1. Bradycardia/hypotension The patient is now status post a temporary transvenous pacemaker via the right femoral vein without obvious adverse events. However, status post the patient having spontaneous movement, despite sedation and restraint of the right lower extremity, it appears that she has lost capture of her temporary transvenous pacemaker with respect to an electronic ventricular paced rhythm from the right ventricle. Thus, the temporary transvenous pacemaker settings were inspected. The output and sensitivity were adjusted. The patient did not regain capture or an electronic ventricular paced rhythm. Is, the concern was that the temporary transvenous pacemaker, with movement of the right lower extremity, despite sedation and the right lower extremity being restrained, had migrated and lost capture. An attempt was made at the bedside to reposition the balloon tipped temporary transvenous pacemaker. Despite this effort, capture of the right ventricle was not obtained however, it was subsequently noted that it appeared that the temporary transvenous pacemaker tip had migrated to the right atrium as it was noted that there was now capture of the right atrium and a subsequent atrial paced rhythm with AV synchronous pacing with a narrow QRS complex. The temporary transvenous pacemaker settings were evaluated. The device briefly placed on hold to evaluate the underlying rhythm. The underlying rhythm appeared to be a junctional rhythm with a ventricular rate of approximately 40 bpm. The temporary transvenous pacemaker was turned on to the baseline settings. The patient was noted to be atrial pacing at 80 bpm with an AV synchronous rhythm. It was also noted that time that the patient's blood pressure began to improve with systolic blood pressures greater than 100 mmHg. It appears that the patient, with respect to her blood pressure, was actually better with atrial paced rhythm with AV synchronous pacing with a narrow QRS complex than when she was in an underlying electronic ventricular paced rhythm, which was better than when she is in her own [place] rhythm which at the time it appears to remain a junctional rhythm/junctional bradycardia. Thus the patient may have an underlying sick sinus syndrome/bradycardia tacky syndrome which may have been exacerbated by her rate limiting medications. The patient will be monitored. If her blood pressure remains in an acceptable range then attempt can be made to decrease her IV vasopressor agents. Also, if her blood pressure remains in acceptable range, it may be reasonable to decrease her IV fluid rate and attempt to avoid volume overload and pulmonary compromise. The patient will need to be followed with respect to whether or not her [place] rhythm improves versus whether she needs based upon the above findings, a permanent pacemaker. 2. CAD status post CABG There has been no evidence of ongoing acute coronary syndrome. However based on his history she will be followed. This will include cardiac enzyme levels as well as ECG follow-up. An echocardiogram has been requested to evaluate left ventricular wall motion and systolic function. She will continue medical therapy as deemed appropriate although medications at the moment that negatively impact heart rate or blood pressure are on hold. 3. Hyperlipidemia She will continue lipid-lowering therapy as deemed appropriate. 4. Hypertension Her family states that has been difficult to control her hypertension as well. They note that a request was made by her primary care physician for nephrology input. At the present time her blood pressures will be followed. Her medicines are being adjusted to compensate for hypotension. Over time she may need, especially if she becomes hypertensive once again, further input from other physicians as deemed appropriate. 5. Diabetes mellitus She will continue under the care of internal medicine for this. 6. COPD She apparently has long-standing COPD. She will continue evaluation care by internal medicine. 6. Renal insufficiency Her creatinine level was elevated upon admission. They are concerned this may have been related to decreased intravascular volume secondary to her diuretic therapy. The family states she has also not want to take in oral fluids unless encouraged to do so. Her creatinine level has increased. This may be secondary to concerns of her diminished intravascular volume but also secondary to concerns of her transient bradycardia and hypotension. At the present time her laboratory studies will be followed. She is receiving IV fluids as noted above. Hopefully, if her hemodynamics improved, along with improvement of her volume status, her renal function will improve as well. Comment: Time spent in the patient's evaluation and care: Minimum: 60 minutes This note was generated with [employer] dictation software. It may contain incorrect words, spelling, and punctuation that were not noted in checking the note before signing.
[2018-06-02 23:00] LABS: Bedside Glucose 341 mg/dL (70-110)
[2018-06-02] MEDS: 0.9% Normal Saline 1,000 ML 75 ML IV (23:01)
--- NOTE | 2018-06-02 23:17 | NURSING ---
Dr Clarke at bedside adjusting the pacemaker, pt moved and the pacemaker slid out of place. At this time it is A-paced and pacing in the 80's at this time.
[2018-06-03] VITALS (57 sets, daily range): BP systolic 109–124; BP diastolic 43–58; PULSE 51–81; RESP 14–17; TEMP 34.2–37.1; O2SAT 92–98
--- NOTE | 2018-06-03 00:15 | NURSING ---
Emerald gar applied at 0015.
[2018-06-03] MEDS: DOPamine IV 800 MG/250 ML IV.SOLN. 10.546 MG CONT INF ×5 (01:08→22:36)
[2018-06-03 01:56] LABS: Bedside Glucose 266 mg/dL (70-110)
[2018-06-03] MEDS: fentaNYL drip 100 ML 2.5 MCG CONT INF ×3 (03:29→19:58)
[2018-06-03 04:09] LABS: Hematocrit 31.8 % (37-47); Hemoglobin 10.1 g/dl (12.0-15.0); Mean Corp Hgb Conc 31.8 g/gl (32-36); Mean Corpuscular Hgb 27.5 pg (27.0-32.0); Mean Corpuscular Volume 86.6 fL (81-99); Mean Platelet Vol. 10.4 fl (6.2-12.0); Platelet Count 280 K/mm3 (150-450); RBC Distribution Width CV 14.9 % (11.6-14.6); RBC Distribution Width SD 46.1 fl (35.1-43.9); Red Blood Count 3.67 M/mm3 (4.2-5.4); Scan Indicated on CBC? Y/N NO; White Blood Count 17.9 K/mm3 (4.4-11.0)
[2018-06-03 04:24] LABS: ALB/GLOB Ratio 0.8 RATIO (0.9-2.4); AST(SGOT) 29 U/L (15-37); Alanine Aminotransfer ALT/SGPT 36 U/L (13-56); Alkaline Phosphatase 111 U/L (45-117); Anion Gap 10 (5-15); BUN 49 mg/dL (7-18); Calcium,Total 7.9 mg/dL (8.5-10.1); Chloride 101 mmol/L (98-107); Creatinine, Serum 2.89 mg/dL (0.55-1.02); EST Glomerular Filtration Rate 17 mL/min (>60); Est Glom Filt Rate - Afr Amer 21 mL/min (>60); Estimated Creatinine Clearance 14.77 ml/min; Globulin 3.7 g/dL (2.2-4.2); Glucose 336 mg/dL (74-106); Magnesium 2.1 mg/dL (1.6-2.6); Protein, Total 6.7 g/dL (6.4-8.2); Sodium Level 134 mmol/L (136-145)
--- NOTE | 2018-06-03 05:55 | EKG12_ITS ---
Test Reason : AM EKG Blood Pressure : / mmHG Vent. Rate : 081 BPM Atrial Rate : 081 BPM P-R Int : 184 ms QRS Dur : 098 ms QT Int : 378 ms P-R-T Axes : 003 050 077 degrees QTc Int : 439 ms Electronic atrial pacemaker T wave abnormality, consider anterior ischemia Abnormal ECG Confirmed by ELLEN DOVE, MARKUS ([id number]), editor in chief DENVER KRAUSE ([id number]) on 06/10/2018 11:59:07 AM Referred By: Quinten Chung Confirmed By:MARKUS HUGHES MD
[2018-06-03 06:10] LABS: Bedside Glucose 285 mg/dL (70-110)
[2018-06-03] MEDS: Insulin Lispro 100 UNIT/ML INSULN.PEN SC ×6 (06:32→21:10)
[2018-06-03] MEDS: Ipratropium/Albuterol Sulfate 3 ML AMPUL.NEB INHALATION ×3 (06:40→19:21)
--- NOTE | 2018-06-03 06:55 | NURSING ---
Dr. Clarke at the bedside and has shut off the pacer at this time, pt is remaining stable with a heart rate of 61. Per Dr Clarke if the pt goes bradycardic flip the switch from off to VVI and call him right away, His hope is the pt will capture and pace once the pacer is turned back on.
[2018-06-03] MEDS: Gabapentin 300 MG Capsule PO (08:10)
[2018-06-03] MEDS: Propofol 10MG/Ml 1,000 MG/100 ML Bottle 6.749 MG CONT INF ×2 (08:33→21:06)
--- NOTE | 2018-06-03 08:58 | PN.CARD_ITS ---
Subjectve: The patient remains in the ICU. She remains sedated, mechanically intubated, with a right internal jugular CVC, and the right femoral vein temporary transvenous pacemaker. According to the ICU nursing staff she has had no significant urinary output thus far. Objective: Vital Signs Temp Pulse Resp BP Pulse Ox 98.7 F 62 16 119/46 L 96 06/03/18 07:00 06/03/18 07:30 06/03/18 07:00 06/03/18 07:30 06/03/18 07:00 Oxygen Flow Rate (L/min) 1 Oxygen Delivery Method Mechanical Ventilator Weight: 257 lb 15.053 oz Body Mass Index (BMI) 43.9 Finger Stick Blood Glucose 155 Intake and Output for Last 24 Hours 06/01/18 06/02/18 06/03/18 23:59 23:59 23:59 Intake Total 711 / 711 1168 / 1168 4461.4 / 4461.4 Output Total Balance 711 / 711 1168 / 1168 4431.4 / 4431.4 General: Obese Lungs: Clear to auscultation Cardiovascular: Regular Rhythm, Normal S1, Normal S2 Abdomen: Bowel Sounds Present, Soft Extremities: No edema 06/02/18 11:32: Sodium 134 L, Potassium 4.4, Chloride 101, Carbon Dioxide 25.0, Anion Gap 8, BUN 42 H, Creatinine 2.23 H, Est GFR (MDRD) Af Amer 28 L, Est GFR (MDRD) Non-Af 23 L, BUN/Creatinine Ratio 18.8, Glucose 321 H, Calcium 8.2 L 06/02/18 15:44: Sodium 136, Potassium 4.6, Chloride 104, Carbon Dioxide 23.0, Anion Gap 9, BUN 43 H, Creatinine 2.47 H, Est GFR (MDRD) Af Amer 25 L, Est GFR (MDRD) Non-Af 20 L, BUN/Creatinine Ratio 17.4, Glucose 267 H, Calcium 8.0 L, Magnesium 2.2, Troponin I < 0.015 06/02/18 15:44: Phosphorus 4.7 06/02/18 20:24: pH 7.24 L, Bicarbonate Actual 21.1 L, POC Total CO2 23, Base Excess -6 L, O2 Saturation 96, ABG pCO2 49.7 H, ABG pO2 101 H 06/02/18 20:45: Triglycerides 91 06/03/18 04:00: WBC 17.9 H, RBC 3.67 L, Hgb 10.1 L, Hct 31.8 L, MCV 86.6, MCH 27.5, MCHC 31.8 L, RDW 14.9 H, RDW Differential 46.1 H, Plt Count 280, MPV 10.4 06/03/18 04:00: Sodium 134 L, Potassium 4.0, Chloride 101, Carbon Dioxide 23.0, Anion Gap 10, BUN 49 H, Creatinine 2.89 H, Est GFR (MDRD) Af Amer 21 L, Est GFR (MDRD) Non-Af 17 L, BUN/Creatinine Ratio 17.0, Glucose 336 H, Calcium 7.9 L, Magnesium 2.1, Total Bilirubin 0.60 Rhythm: Electronic atrial paced rhythm; status post placing temporary transvenous pacemaker on hold there is an underlying sinus rhythm with a ventricular rate of 60+ beats per minute EKG: Electronic atrial paced rhythm ECHO: Pending Medical Necessity - Tobacco Use Smoking Status: Former smoker Tobacco Use: Cigarettes Assessment/Plan 1. Bradycardia/hypotension The patient's temporary transvenous pacemaker was placed on hold this morning. She appeared to have an underlying rhythm of sinus rhythm with a ventricular rate of 60+ beats per minute. Her blood pressure was reassessed. In sinus rhythm her blood pressure appeared to remain stable without significant decline. Thus her temporary transvenous pacemaker will be placed on hold. She will be monitored for a period of time. If her rate and rhythm and blood pressure are maintained then hopefully her temporary transvenous pacemaker can be removed. If she maintains adequate heart rate, rhythm, and blood pressure then hopefully she will not need permanent pacemaker at this time. This may need to be re assessed in the future depending upon her future clinical course. 2. CAD status post CABG There has been no evidence of ongoing acute coronary syndrome. However based on his history she will be followed. This will include cardiac enzyme levels as well as ECG follow-up. An echocardiogram has been requested to evaluate left ventricular wall motion and systolic function. She will continue medical therapy as deemed appropriate although medications at the moment that negatively impact heart rate or blood pressure are on hold. 3. Hyperlipidemia She will continue lipid-lowering therapy as deemed appropriate. 4. Hypertension Her family states that has been difficult to control her hypertension as well. They note that a request was made by her primary care physician for nephrology input. At the present time her blood pressures will be followed. Her medicines are being adjusted to compensate for hypotension. Over time she may need, especially if she becomes hypertensive once again, further input from other physicians as deemed appropriate. 5. Diabetes mellitus She will continue under the care of internal medicine for this. 6. COPD She apparently has long-standing COPD. She will continue evaluation care by internal medicine. 6. Renal insufficiency Her creatinine level was elevated upon admission. They are concerned this may have been related to decreased intravascular volume secondary to her diuretic therapy. The family states she has also not want to take in oral fluids unless encouraged to do so. Her creatinine level has increased. This may be secondary to concerns of her diminished intravascular volume but also secondary to concerns of her transient bradycardia and hypotension. At the present time her laboratory studies will be followed. She is receiving IV fluids as noted above. Hopefully, if her hemodynamics improved, along with improvement of her volume status, her renal function will improve as well. Comment: The above was discussed and reviewed with Dr. Ferreira. This note was generated with [employer] software. It may contain incorrect words, spelling, and punctuation that were not noted in checking the note before signing.
[2018-06-03] MEDS: CHLORHEXIDINE GLUC 2% CLOTH 1 EACH TOWELETTE TOPICAL (09:32)
[2018-06-03] MEDS: Chlorhexidine 15 ML PO ×2 (09:58→21:06)
[2018-06-03] MEDS: Enoxaparin 30 MG/0.3 ML Syringe SC (10:01)
[2018-06-03] MEDS: Polyethylene Glycol 3350 17 GM PACKET GT ×2 (10:12→21:06)
[2018-06-03] MEDS: Senna/Docusate Sodium 1 Tablet 2 TABLET GT ×2 (10:12→21:07)
[2018-06-03] MEDS: Vital AF 1.2 Cal Liquid 1,000 ML 65 ML GT (10:28)
--- NOTE | 2018-06-03 10:42 | PCM.PN.HOSP ---
Patient Problems: Active and Suspected Problems Respiratory failure with hypoxia (Acute) Acute exacerbation of chronic obstructive pulmonary disease (COPD) (Acute) Bronchospasm (Acute) Viral conjunctivitis (Acute) Allergic conjunctivitis (Acute) Chemosis of conjunctiva (Acute) Bradycardia (Acute) Hypotension (Acute) Decreased responsiveness (Acute) Acute hypoxic respiratory failure (Acute) Subjective: Patient seen and examined. She remains intubated and sedated. Unable to do review of systems o/a of her being intubated and sedated. She had initially been admitted and managed for COPD exacerbation and conjunctivitis. She was noted to be bradycardic and hypotensive 1 day ago and had a temporary pacemaker placed. She has been on multiple medications including carvedilol 37.5 mg twice daily and Cardizem 240 mg daily and also been on Cardizem and also placed on amlodipine 10 mg daily. These were discontinued yesterday. Her hydrochlorothiazide had been discontinued prior to her admission. Pacemaker has been discontinued as bradycardia and hypotension with a to be due to her medications. She was on Levophed and dopamine. Levophed was weaned off overnight and she is now only on dopamine. Cardiology and exercise instruct on board. Creatinine noted to be worsening and has trended up to 2.89 today. Baseline is around 1.5. Per discussion with nurse, patient is also barely making any urine. Vitals/I&O's: Vital Signs Temp Pulse Resp BP Pulse Ox 98.7 F 62 16 119/46 L 96 06/03/18 07:00 06/03/18 07:30 06/03/18 07:00 06/03/18 07:30 06/03/18 07:00 Oxygen Flow Rate (L/min) 1 Oxygen Delivery Method Mechanical Ventilator Weight: 257 lb 15.053 oz Body Mass Index (BMI) 43.9 Finger Stick Blood Glucose 155 Intake and Output for Last 24 Hours 06/01/18 06/02/18 06/03/18 23:59 23:59 23:59 Intake Total 711 / 711 1168 / 1168 4461.4 / 4461.4 Output Total Balance 711 / 711 1168 / 1168 4431.4 / 4431.4 General: - - intubated, sedated, RASS score is -4 HEENT: Atraumatic, PERRLA, EOMI, Normocephalic Oral: Dry Mucosa Neck: Supple, No JVD, Negative Carotid Bruits Lungs: - - decreased breath sounds bibasally, no wheezes or crackles Cardiovascular: Regular rate, Regular Rhythm, Normal S1, Normal S2, No murmurs Abdomen: Bowel Sounds Present, Soft, Non Tender Extremities: No clubbing, No cyanosis, No edema, Capillary Refill Less than 3 Seconds Skin: No rashes, No breakdown Musculoskeletal: No Tenderness to Palpation of Joints or Extremities Lymphatic: No Cervical, Supraclavicular, or Inguinal Adenopathy Neurological: Cranial nerves II-XII grossly intact Psych/Mental Status: - - intubated, sedated. RASS score is ~ -4 Microbiology Past 72 Hours 06/01/18 15:35 Mucosa - Nasopharyngeal Respiratory Panel (PCR) - Final Laboratory Results 06/01/18 21:48: POC Glucose 266 H 06/02/18 11:32: Sodium 134 L, Potassium 4.4, Chloride 101, Carbon Dioxide 25.0, Anion Gap 8, BUN 42 H, Creatinine 2.23 H, Estim Creat Clear Calc 19.14, Est GFR (MDRD) Af Amer 28 L, Est GFR (MDRD) Non-Af 23 L, BUN/Creatinine Ratio 18.8, Glucose 321 H, Calcium 8.2 L 06/02/18 12:28: POC Glucose 403 H 06/02/18 14:43: POC Glucose 309 H 06/02/18 15:44: Sodium 136, Potassium 4.6, Chloride 104, Carbon Dioxide 23.0, Anion Gap 9, BUN 43 H, Creatinine 2.47 H, Estim Creat Clear Calc 17.28, Est GFR (MDRD) Af Amer 25 L, Est GFR (MDRD) Non-Af 20 L, BUN/Creatinine Ratio 17.4, Glucose 267 H, Calcium 8.0 L, Magnesium 2.2, Troponin I < 0.015 06/02/18 15:44: Phosphorus 4.7 06/02/18 20:24: Specimen Type ART, Sample Site R Radial, pH 7.24 L, Bicarbonate Actual 21.1 L, POC Total CO2 23, Base Excess -6 L, O2 Saturation 96, O2 % 100, ABG pCO2 49.7 H, ABG pO2 101 H, Respiration Rate 14, O2 Delivery Device Vent, Minute Volume 6.00, Vent Mode A-C, Tidal Volume 450, POC PEEP 5, Blood Gas Notified Whom CHERRY DOVE, Blood Gas Notified Time 201906/02/18 20:45: MRSA (PCR) Negative 06/02/18 20:45: Total Creatine Kinase 112, Triglycerides 91 06/02/18 22:53: POC Glucose 341 H 06/03/18 04:00: WBC 17.9 H, RBC 3.67 L, Hgb 10.1 L, Hct 31.8 L, MCV 86.6, MCH 27.5, MCHC 31.8 L, RDW 14.9 H, RDW Differential 46.1 H, Plt Count 280, MPV 10.4 06/03/18 04:00: Sodium 134 L, Potassium 4.0, Chloride 101, Carbon Dioxide 23.0, Anion Gap 10, BUN 49 H, Creatinine 2.89 H, Estim Creat Clear Calc 14.77, Est GFR (MDRD) Af Amer 21 L, Est GFR (MDRD) Non-Af 17 L, BUN/Creatinine Ratio 17.0, Glucose 336 H, Calcium 7.9 L, Magnesium 2.1, Total Bilirubin 0.60, AST 29, ALT 36, Alkaline Phosphatase 111, Total Protein 6.7, Albumin 3.0 L, Globulin 3.7, Albumin/Globulin Ratio 0.8 L 06/03/18 06:08: POC Glucose 285 H Diagnostic Data Chest X-Ray 06/02/18 18:42 IMPRESSION: Stable cardiomegaly, lines and tubes as above Stable mild scattered bilateral pulmonary opacities Electronically Signed: Perry Rod, at 21:01 EDT Tel , Service support , Current Medications Albuterol Sulfate (Ventolin Aerosols) 2.5 mg INHALATION Q2H PRN PRN PRN Reason: SHORTNESS OF BREATH Albuterol/Ipratropium (Duoneb) 3 ml INHALATION Q4HWA.RT [facility] Last Admin: 06/03/18 06:40 Dose: 3 ml Atorvastatin Calcium (Lipitor) 80 mg GT DAILY@2200 [facility] Bacitracin (Bacitracin Ointment) 1 applic TOPICAL BID [facility]; Protocol Last Admin: 06/02/18 23:24 Dose: Not Given Chlorhexidine Gluconate () 15 ml PO BID [facility] Last Admin: 06/03/18 09:58 Dose: 15 ml Chlorhexidine Gluconate () 1 each TOPICAL DAILY [facility] Last Admin: 06/03/18 09:32 Dose: 1 each Dextrose (D50w Syringe) 0 gm IV X1 PRN; Protocol PRN Reason: Hypoglycemia Enoxaparin Sodium (Lovenox) 30 mg SC DAILY@1000 [facility] Last Admin: 06/03/18 10:01 Dose: 30 mg Gabapentin (Neurontin) 100 mg GT BID [facility] Glucagon () 1 mg IM .X1 PRN PRN Reason: Hypoglycemia Hydralazine HCl (Apresoline Iv) 10 mg IV Q4H PRN PRN PRN Reason: BLOOD PRESSURE Dopamine HCl/Dextrose () 800 mg in 250 mls @ 10.546 mls/hr CONT INF .[id number] [facility] Last Admin: 06/03/18 09:33 Dose: 10.546 mls/hr Norepinephrine Bitartrate 8 mg (/ Sodium Chloride) 250 mls @ 9.38 mls/hr CONT INF .[id number] [facility] Last Admin: 06/02/18 18:45 Dose: 9.38 mls/hr Fentanyl () 100 mls @ 2.5 mls/hr CONT INF .Q40H [facility] Last Admin: 06/03/18 10:12 Dose: 2.5 mls/hr Meropenem 1 gm/ Sodium (Chloride) 120 mls @ 33 mls/hr IV Q12 [facility] Last Admin: 06/03/18 10:01 Dose: 33 mls/hr Sodium Chloride () 250 mls @ 15 mls/hr IV .[id number] PRN PRN Reason: SALINE FLUSH Propofol (Diprivan) 1,000 mg in 100 mls @ 6.749 mls/hr CONT INF .Q12H [facility]; Protocol Enteral Nutritional Formula (Vital Af 1.2 Dar Liquid) 1,000 mls @ 65 mls/hr GT .[id number] [facility] Last Admin: 06/03/18 10:28 Dose: 65 mls/hr Insulin Glargine (Lantus (Bkc)) 5 units SC QHS [facility] Last Admin: 06/02/18 22:54 Dose: 5 units Insulin Human Lispro (Humalog Kwikpen (Bk)) 0 unit SC Q4 [facility]; Protocol Last Admin: 06/03/18 10:14 Dose: 6 u Lansoprazole (Prevacid) 30 mg GT DAILY [facility] Last Admin: 06/03/18 10:18 Dose: 30 mg Magnesium Hydroxide (Milk Of Magnesia) 30 ml PO DAILY PRN PRN PRN Reason: Constipation Methylprednisolone (Solu-Medrol) 40 mg IV Q8 [facility] Last Admin: 06/03/18 05:04 Dose: 40 mg Ondansetron HCl (Zofran) 4 mg IV Q6H PRN PRN PRN Reason: NAUSEA/VOMITING Polyethylene Glycol (Miralax) 17 gm GT BID [facility] Last Admin: 06/03/18 10:12 Dose: 17 gm Senna/Docusate Sodium (Senokot-S, Cora-Colace) 2 tablet GT BID [facility] Last Admin: 06/03/18 10:12 Dose: 2 tablet Sodium Chloride () 5 - 15 ml IV UD PRN PRN Reason: SALINE FLUSH Sodium Chloride () 10 - 40 ml IV UD PRN PRN Reason: MULTILUMEN/HICMAN CATH FLUSH Last Admin: 06/03/18 03:57 Dose: 20 ml Medical Necessity - Tobacco Use Smoking Status: Former smoker Tobacco Use: Cigarettes Assessment/Plan All Active Problems Respiratory failure with hypoxia (Acute) Acute exacerbation of chronic obstructive pulmonary disease (COPD) (Acute) Bronchospasm (Acute) Viral conjunctivitis (Acute) Allergic conjunctivitis (Acute) Chemosis of conjunctiva (Acute) Bradycardia (Acute) Hypotension (Acute) Decreased responsiveness (Acute) Acute hypoxic respiratory failure (Acute) Acute kidney injury (Acute) Prerenal azotemia (Resolved) 1. Acute respiratory failure due to bradycardia and hypotension Was emergently intubated after becoming bradycardic and hypotensive. She was on maximum doses of dopamine but was still bradycardic and Levophed had to be added on. Currently intubated and sedated. She had a temporary pacemaker placed but this was discontinued as her bradycardia and hypotension with a to be medication induced. All blood pressure meds on hold-carvedilol, amlodipine, Cardizem. Hydrochlorothiazide had been stopped before admission. Levophed currently weaned off. On dopamine. Cardiology and exercise instruct on board. 2. Acute hypoxic and hypercapnic respiratory failure due to COPD exacerbation PH yesterday was 7.24 with PCO2 of 49.7. currently intubated and sedated. on breathing treatments and IV steroids exercise instruct on board 3. KURT on CKD likely pre-renal due to medication induced hypotension and bradycardia Creatinine trended up to 2.89 today from 1.6 on admission. Urine electrolytes ordered but not done yet as patient is barely making any urine. Discussed with exercise instruct. To defer nephrology consult now as we are waiting to see if kidney function will improve with hydration and pressors as blood pressure has improved now. If creatinine further worsens, will order kidney ultrasound and nephrology consult. 4. Hypertensive urgency: Resolved. Patient now hypotensive likely medication induced. 5. Type 2 diabetes mellitus: Metformin on hold on account of [place]. Insulin sliding scale. Accu-Cheks every 6 hours. 6. GERD: PPI. 7. Acute viral conjunctivitis: Resolved. 8. Mild hyponatremia: Sodium is 134. Likely due to hypotension. Will monitor with IV fluid administration. 9. Hyperlipidemia: On statin 10. DVT prophylaxis: renal dose of lovenox Code Visit Inpatient E&M: [id number] Subs Hosp L3
[2018-06-03 10:45] LABS: Bedside Glucose 211 mg/dL (70-110)
--- NOTE | 2018-06-03 11:00 | PCM.CON.CC ---
Problem List (1) Respiratory failure with hypoxia Status: Acute Qualifiers: Chronicity: acute Qualified Code(s): J96.01 - Acute respiratory failure with hypoxia (2) Acute exacerbation of chronic obstructive pulmonary disease (COPD) Status: Acute (3) Allergic conjunctivitis Status: Acute (4) Bradycardia Status: Acute (5) Hypotension Status: Acute (6) HTN (hypertension) Status: Chronic (7) Decreased responsiveness Status: Acute (8) Pulmonary hypertension Status: Chronic (9) Morbid obesity with BMI of 40.0-44.9, adult Status: Chronic (10) Sleep-disordered breathing Status: Chronic (11) CAD (coronary artery disease) Status: Chronic (12) 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 Patient reportedly had a cough that was productive in nature with subjective fever. Patient had been placed on ciprofloxacin secondary to suspected pinkeye and had recently been taken off her HCTZ secondary to elevated creatinine. While in the ER, patient desaturated, so was admitted to the floor for further evaluation. Patient with a very complex hospitalization thus far. This had been reviewed with nursing and Dr. Clarke. Patient has [facility] to [facility] intensive care unit. Patient is currently intubated with a right IJ central line and a transvenous pacer. Patient was placed on dopamine overnight, along with Levophed. Levophed has been weaned off, but dopamine is still required. Patient's transvenous pacer had been turned off this morning and patient has been doing well through the day. Patient does have a history of reported COPD, but pulmonary function tests are not available for review. Patient only takes Spiriva at home. It does not appear that the patient sees a chemistry technologist at baseline. No pulmonary function tests are available for review. Patient does have an extensive heart history. Patient was on carvedilol and calcium channel blockers recently. Patient typically follows with Dr. Parker. Unable to obtain a full review of systems at this time secondary to patient's intubated status, but family had described episodes of severe weakness while at home. Past Medical History Past Medical History (Chronic Problems): Chronic Problems HTN (hypertension) (Chronic) Mitral insufficiency (Chronic) Tricuspid insufficiency (Chronic) Pulmonary hypertension (Chronic) Morbid obesity with BMI of 40.0-44.9, adult (Chronic) Sleep-disordered breathing (Chronic) CAD (coronary artery disease) (Chronic) H/O four vessel coronary artery bypass graft (Chronic) Dyslipidemia (Chronic) COPD (chronic obstructive pulmonary disease) (Chronic) Diabetes mellitus type 2 in obese (Chronic) Allergies Penicillins Allergy (Verified 06/01/18 10:05) Hives adhesive tape Adverse Reaction (Verified 06/01/18 10:05) Other Home Medications: Ambulatory Orders Medication Instructions Recorded Amitriptyline HCl [Elavil] 100 mg PO QHS 04/09/13 Diltiazem HCl [Cartia Xt] 240 mg PO DAILY 12/25/16 Metformin(XR) [Glucophage Xr] 500 mg PO DAILY 12/25/16 Omeprazole 40 mg PO DAILY 12/25/16 Pioglitazone [Actos] 30 mg PO DAILY 12/25/16 Tiotropium [place] [Spiriva] 1 puff INHALATION DAILY 12/25/16 Aspirin E.C. [Ecotrin] 81 mg PO DAILY 10/25/17 Atorvastatin Calcium 80 mg PO DAILY 10/25/17 Gabapentin [Neurontin] 300 mg PO .COMPLEX 10/25/17 Losartan Potassium 100 mg PO DAILY 10/25/17 Amlodipine Besylate 10 mg PO DAILY 06/01/18 Carvedilol 37.5 mg PO BID 06/01/18 Ciprofloxacin 0.3% [Ciloxan] 2 drop OPHTHALMIC 4X/DAY 06/01/18 Surgical History: appendectomy, cholecystectomy, - - Surgery includes removal of benign tumor left leg, cholecystectomy appendectomy tonsillectomy and vein stripping. Psychiatric History: Anxiety RN CAMP History: No pertinent RN CAMP history Lives: With Family Smoking Status: Former smoker Tobacco Use: Cigarettes Alcohol: None Drugs: None - *Family History Paternal History Items: - - Denies known paternal cardiac history. Maternal History Items: - - Denies known maternal cardiac history. Review of Systems Unable to obtain accurate/complete ROS d/t: Intubated and sedated Patient Problems: Active and Suspected Problems Respiratory failure with hypoxia (Acute) Acute exacerbation of chronic obstructive pulmonary disease (COPD) (Acute) Bronchospasm (Acute) Viral conjunctivitis (Acute) Allergic conjunctivitis (Acute) Chemosis of conjunctiva (Acute) Bradycardia (Acute) Hypotension (Acute) Decreased responsiveness (Acute) Acute hypoxic respiratory failure (Acute) Objective: Chest x-ray was personally reviewed and shows elevated right hemidiaphragm. Endotracheal tube is in appropriate position. - Physical Exam General: - - Intubated and sedated. Good vent synchrony noted. Morbidly obese. HEENT: Atraumatic, PERRLA, EOMI, Normocephalic, - - Scleral injection without icterus Oral: Moist Mucosa, No Gingival or Mucosal Lesions/ Ulcerations Neck: Supple, - - IJ in place. Clean, dry and intact. Difficult to assess JVD secondary to body habitus Lungs: No wheeze, No rales, Diminished, Rhonchi Cardiovascular: Regular rate, Regular Rhythm, Normal S1, Normal S2, No murmurs, No rub noted, No Gallop, - - Patient initially on my arrival. This is since been turned off and patient is currently normal sinus rhythm on telemetry Abdomen: Bowel Sounds Present, Soft, Non Tender, Non-Distended, Obese Extremities: No clubbing, No cyanosis, Capillary Refill Less than 3 Seconds, Edema Skin: - - Venous stasis changes noted of the lower extremities. Musculoskeletal: No Tenderness to Palpation of Joints or Extremities Lymphatic: No Cervical, Supraclavicular, or Inguinal Adenopathy Neurological: Cranial nerves II-XII grossly intact, Neuro grossly intact, Motor Exam 5/5 strength throughout Psych/Mental Status: Appropriate, Flat Affect Vital Signs Temp Pulse Resp BP Pulse Ox 37.1 C 62 16 119/46 L 96 06/03/18 07:00 06/03/18 07:30 06/03/18 07:00 06/03/18 07:30 06/03/18 07:00 Oxygen Flow Rate (L/min) 1 Oxygen Delivery Method Mechanical Ventilator Weight: 117 kg Body Mass Index (BMI) 43.9 Finger Stick Blood Glucose 155 Intake and Output for Last 24 Hours 06/01/18 06/02/18 06/03/18 23:59 23:59 23:59 Intake Total 711 / 711 1168 / 1168 4461.4 / 4461.4 Output Total Balance 711 / 711 1168 / 1168 4431.4 / 4431.4 Microbiology Past 72 Hours 06/01/18 15:35 Respiratory Panel (PCR) - Final Mucosa - Nasopharyngeal Laboratory Tests Past 24 Hrs 06/02/18 06/02/18 06/02/18 11:32 15:44 15:44 WBC RBC Hgb Hct MCV MCH MCHC RDW RDW Differential Plt Count MPV Specimen Type Sample Site pH Bicarbonate Actual POC Total CO2 Base Excess O2 Saturation O2 % ABG pCO2 ABG pO2 Respiration Rate O2 Delivery Device Minute Volume Vent Mode Tidal Volume POC PEEP Blood Gas Notified Whom Blood Gas Notified Time Sodium 134 L 136 Potassium 4.4 4.6 Chloride 101 104 Carbon Dioxide 25.0 23.0 Anion Gap 8 9 BUN 42 H 43 H Creatinine 2.23 H 2.47 H Estim Creat Clear Calc 19.14 17.28 Est GFR (MDRD) Af Amer 28 L 25 L Est GFR (MDRD) Non-Af 23 L 20 L BUN/Creatinine Ratio 18.8 17.4 Glucose 321 H 267 H Calcium 8.2 L 8.0 L Phosphorus 4.7 Magnesium 2.2 Total Bilirubin AST ALT Alkaline Phosphatase Total Creatine Kinase Troponin I < 0.015 Total Protein Albumin Globulin Albumin/Globulin Ratio Triglycerides MRSA (PCR) 06/02/18 06/02/18 06/02/18 20:24 20:45 20:45 WBC RBC Hgb Hct MCV MCH MCHC RDW RDW Differential Plt Count MPV Specimen Type ART Sample Site R Radial pH 7.24 L Bicarbonate Actual 21.1 L POC Total CO2 23 Base Excess -6 L O2 Saturation 96 O2 % 100 ABG pCO2 49.7 H ABG pO2 101 H Respiration Rate 14 O2 Delivery Device Vent Minute Volume 6.00 Vent Mode A-C Tidal Volume 450 POC PEEP 5 Blood Gas Notified Whom [facility] Blood Gas Notified Time 2020 Sodium Potassium Chloride Carbon Dioxide Anion Gap BUN Creatinine Estim Creat Clear Calc Est GFR (MDRD) Af Amer Est GFR (MDRD) Non-Af BUN/Creatinine Ratio Glucose Calcium Phosphorus Magnesium Total Bilirubin AST ALT Alkaline Phosphatase Total Creatine Kinase 112 Troponin I Total Protein Albumin Globulin Albumin/Globulin Ratio Triglycerides 91 MRSA (PCR) Negative 06/03/18 06/03/18 04:00 04:00 WBC 17.9 H RBC 3.67 L Hgb 10.1 L Hct 31.8 L MCV 86.6 MCH 27.5 MCHC 31.8 L RDW 14.9 H RDW Differential 46.1 H Plt Count 280 MPV 10.4 Specimen Type Sample Site pH Bicarbonate Actual POC Total CO2 Base Excess O2 Saturation O2 % ABG pCO2 ABG pO2 Respiration Rate O2 Delivery Device Minute Volume Vent Mode Tidal Volume POC PEEP Blood Gas Notified Whom Blood Gas Notified Time Sodium 134 L Potassium 4.0 Chloride 101 Carbon Dioxide 23.0 Anion Gap 10 BUN 49 H Creatinine 2.89 H Estim Creat Clear Calc 14.77 Est GFR (MDRD) Af Amer 21 L Est GFR (MDRD) Non-Af 17 L BUN/Creatinine Ratio 17.0 Glucose 336 H Calcium 7.9 L Phosphorus Magnesium 2.1 Total Bilirubin 0.60 AST 29 ALT 36 Alkaline Phosphatase 111 Total Creatine Kinase Troponin I Total Protein 6.7 Albumin 3.0 L Globulin 3.7 Albumin/Globulin Ratio 0.8 L Triglycerides MRSA (PCR) POC Glucose 06/03/18 06/03/18 06/02/18 10:11 06:08 22:53 POC Glucose 211 H 285 H 341 H 06/02/18 06/02/18 06/01/18 14:43 12:28 21:48 POC Glucose 309 H 403 H 266 H Clinical Impression(s) from Imaging Studies Chest X-Ray 06/01/18 10:35 IMPRESSION: No acute cardiopulmonary disease. Electronically Signed: Mike Toussaint DO at 11:43 EDT Tel , Service support , Chest X-Ray 06/02/18 17:28 IMPRESSION: Right IJ line terminates in the SVC. No demonstrated pneumothorax. Electronically Signed: Jolie Her MD at 18:59 EDT Tel , Service support , Chest X-Ray 06/02/18 18:42 IMPRESSION: Stable cardiomegaly, lines and tubes as above Stable mild scattered bilateral pulmonary opacities Electronically Signed: Perry Velasco at 21:01 EDT Tel , Service support , Assessment/Plan Active and Suspected Problems Respiratory failure with hypoxia (Acute) Acute exacerbation of chronic obstructive pulmonary disease (COPD) (Acute) Bronchospasm (Acute) Viral conjunctivitis (Acute) Allergic conjunctivitis (Acute) Chemosis of conjunctiva (Acute) Bradycardia (Acute) Hypotension (Acute) Decreased responsiveness (Acute) Acute hypoxic respiratory failure (Acute) RECOMMENDATIONS: 1. Wean pressors as tolerated 2. Continue current vent settings 3. Attempt to hold off on transvenous pacing. 4. Continue with empiric antibiotics until culture negative 5. Spontaneous breathing and awakening trials per protocol IMPRESSIONS: 1. Acute respiratory failure Unclear etiology at this time. One would suspect COPD exacerbation secondary to viral illness with something such as adenovirus. However, patient may have an element of CHF secondary to severe bradycardia as another possible etiology. Patient is currently on empiric antibiotics and steroids. We will continue to monitor. Anticipate stabilization of cardiovascular status prior to spontaneous awakening and breathing trials. 2. Cardiogenic shock secondary to bradycardia Unclear etiology at this time. Patient did require transvenous pacing overnight, but appears to be doing well on dopamine at this time. Patient was on extensive beta and calcium channel blockers as an outpatient. Unclear if this is secondary to residual medications given patient's acute kidney injury. Cardiology is currently following. Patient does have an extensive cardiac history. 3. Acute kidney injury on CKD stage III Likely prerenal etiology. Patient does have a 20-1 BUN to creatinine ratio, but is not developing any acidosis or hyperkalemia to indicate a need for renal replacement therapy at this time. We will continue to monitor urine output closely. Blood pressure is much improved compared to previous. May require renal consultation if urine output is not improving in the next 24 hours. Patient will be initiated on tube feeds. 4. Diabetes mellitus type 2 Patient currently with elevated glucose. This is likely secondary to steroid therapy. We will continue to monitor closely. Patient is on sliding scale insulin with a minimal basal dose at this time. This can be titrated up as necessary. 5. GERD/anxiety/morbid obesity/hyperlipidemia/CAD status post CABG/reported COPD Complicates care, management, recovery and prognosis. Quantification of respiratory function is not available at this time. TIME: 45 minutes critical care time spent addressing patient's acute respiratory failure, cardiogenic shock, acute kidney injury, review of all data and collaboration with care team (9 AM to 12 PM) Code Visit [id number]: [id number] Critical care first hour
--- NOTE | 2018-06-03 11:07 | CON.PCM_ITS ---
Problem List (1) Respiratory failure with hypoxia Status: Acute Qualifiers: Chronicity: acute Qualified Code(s): J96.01 - Acute respiratory failure with hypoxia (2) Acute exacerbation of chronic obstructive pulmonary disease (COPD) Status: Acute (3) Allergic conjunctivitis Status: Acute (4) Bradycardia Status: Acute (5) Hypotension Status: Acute (6) HTN (hypertension) Status: Chronic (7) Decreased responsiveness Status: Acute (8) Pulmonary hypertension Status: Chronic (9) Morbid obesity with BMI of 40.0-44.9, adult Status: Chronic (10) Sleep-disordered breathing Status: Chronic (11) CAD (coronary artery disease) Status: Chronic (12) H/O four vessel coronary artery bypass graft Status: Chronic (13) Acute kidney injury Status: Acute (14) Diabetes mellitus type 2 in obese Status: Chronic Reason for Consult Date of Consultation: 06/03/18 - Late Entry Reason for Consultation: Respiratory failure History of Present Illness: The patient is a 72 year old F, with past medical history listed below, who presented with [facility] on 06/01/2018 secondary to bilateral eye irritation, shortness of breath and URI symptoms. Patient reportedly had a cough that was productive in nature with subjective fever. Patient had been placed on ciprofloxacin secondary to suspected pinkeye and had recently been taken off her HCTZ secondary to elevated creatinine. While in the ER, patient desaturated, so was admitted to the floor for further evaluation. Patient with a very complex hospitalization thus far. This had been reviewed with nursing and Dr. Clarke. Patient has gone from [facility] to [facility] to the intensive care unit. Patient is currently intubated with a right IJ central line and a transvenous pacer. Patient was placed on dopamine overnight, along with Levophed. Levophed has been weaned off, but dopamine is still required. Patient's transvenous pacer had been turned off this morning and patient has been doing well through the day. Patient does have a history of reported COPD, but pulmonary function tests are not available for review. Patient only takes Spiriva at home. It does not appear that the patient sees a organ fixer at baseline. No pulmonary function tests are available for review. Patient does have an extensive heart history. Patient was on carvedilol and calcium channel blockers recently. Patient typically follows with Dr. Parker. Unable to obtain a full review of systems at this time secondary to patient's intubated status, but family had described episodes of severe weakness while at home. Past Medical History Past Medical History (Chronic Problems): Chronic Problems HTN (hypertension) (Chronic) Mitral insufficiency (Chronic) Tricuspid insufficiency (Chronic) Pulmonary hypertension (Chronic) Morbid obesity with BMI of 40.0-44.9, adult (Chronic) Sleep-disordered breathing (Chronic) CAD (coronary artery disease) (Chronic) H/O four vessel coronary artery bypass graft (Chronic) Dyslipidemia (Chronic) COPD (chronic obstructive pulmonary disease) (Chronic) Diabetes mellitus type 2 in obese (Chronic) Allergies Penicillins Allergy (Verified 06/01/18 10:05) Hives adhesive tape Adverse Reaction (Verified 06/01/18 10:05) Other Home Medications: Ambulatory Orders Medication Instructions Recorded Amitriptyline HCl [Elavil] 100 mg PO QHS 04/09/13 Diltiazem HCl [Cartia Xt] 240 mg PO DAILY 12/25/16 Metformin(XR) [Glucophage Xr] 500 mg PO DAILY 12/25/16 Omeprazole 40 mg PO DAILY 12/25/16 Pioglitazone [Actos] 30 mg PO DAILY 12/25/16 Tiotropium Hale [Spiriva] 1 puff INHALATION DAILY 12/25/16 Aspirin E.C. [Ecotrin] 81 mg PO DAILY 10/25/17 Atorvastatin Calcium 80 mg PO DAILY 10/25/17 Gabapentin [Neurontin] 300 mg PO .COMPLEX 10/25/17 Losartan Potassium 100 mg PO DAILY 10/25/17 Amlodipine Besylate 10 mg PO DAILY 06/01/18 Carvedilol 37.5 mg PO BID 06/01/18 Ciprofloxacin 0.3% [Ciloxan] 2 drop OPHTHALMIC 4X/DAY 06/01/18 Surgical History: appendectomy, cholecystectomy, - - Surgery includes removal of benign tumor left leg, cholecystectomy appendectomy tonsillectomy and vein stripping. Psychiatric History: Anxiety DINING ROOM HOST History: No pertinent DINING ROOM HOST history Lives: With Family Smoking Status: Former smoker Tobacco Use: Cigarettes Alcohol: None Drugs: None - *Family History Paternal History Items: - - Denies known paternal cardiac history. Maternal History Items: - - Denies known maternal cardiac history. Review of Systems Unable to obtain accurate/complete ROS d/t: Intubated and sedated Patient Problems: Active and Suspected Problems Respiratory failure with hypoxia (Acute) Acute exacerbation of chronic obstructive pulmonary disease (COPD) (Acute) Bronchospasm (Acute) Viral conjunctivitis (Acute) Allergic conjunctivitis (Acute) Chemosis of conjunctiva (Acute) Bradycardia (Acute) Hypotension (Acute) Decreased responsiveness (Acute) Acute hypoxic respiratory failure (Acute) Objective: Chest x-ray was personally reviewed and shows elevated right hemidiaphragm. Endotracheal tube is in appropriate position. - Physical Exam General: - - Intubated and sedated. Good vent synchrony noted. Morbidly obese. HEENT: Atraumatic, PERRLA, EOMI, Normocephalic, - - Scleral injection without icterus Oral: Moist Mucosa, No Gingival or Mucosal Lesions/ Ulcerations Neck: Supple, - - IJ in place. Clean, dry and intact. Difficult to assess JVD secondary to body habitus Lungs: No wheeze, No rales, Diminished, Rhonchi Cardiovascular: Regular rate, Regular Rhythm, Normal S1, Normal S2, No murmurs, No rub noted, No Gallop, - - Patient initially on my arrival. This is since been turned off and patient is currently normal sinus rhythm on telemetry Abdomen: Bowel Sounds Present, Soft, Non Tender, Non-Distended, Obese Extremities: No clubbing, No cyanosis, Capillary Refill Less than 3 Seconds, Edema Skin: - - Venous stasis changes noted of the lower extremities. Musculoskeletal: No Tenderness to Palpation of Joints or Extremities Lymphatic: No Cervical, Supraclavicular, or Inguinal Adenopathy Neurological: Cranial nerves II-XII grossly intact, Neuro grossly intact, Motor Exam 5/5 strength throughout Psych/Mental Status: Appropriate, Flat Affect Vital Signs Temp Pulse Resp BP Pulse Ox 37.1 C 62 16 119/46 L 96 06/03/18 07:00 06/03/18 07:30 06/03/18 07:00 06/03/18 07:30 06/03/18 07:00 Oxygen Flow Rate (L/min) 1 Oxygen Delivery Method Mechanical Ventilator Weight: 117 kg Body Mass Index (BMI) 43.9 Finger Stick Blood Glucose 155 Intake and Output for Last 24 Hours 06/01/18 06/02/18 06/03/18 23:59 23:59 23:59 Intake Total 711 / 711 1168 / 1168 4461.4 / 4461.4 Output Total Balance 711 / 711 1168 / 1168 4431.4 / 4431.4 Microbiology Past 72 Hours 06/01/18 15:35 Respiratory Panel (PCR) - Final Mucosa - Nasopharyngeal Laboratory Tests Past 24 Hrs 06/02/18 06/02/18 06/02/18 11:32 15:44 15:44 WBC RBC Hgb Hct MCV MCH MCHC RDW RDW Differential Plt Count MPV Specimen Type Sample Site pH Bicarbonate Actual POC Total CO2 Base Excess O2 Saturation O2 % ABG pCO2 ABG pO2 Respiration Rate O2 Delivery Device Minute Volume Vent Mode Tidal Volume POC PEEP Blood Gas Notified Whom Blood Gas Notified Time Sodium 134 L 136 Potassium 4.4 4.6 Chloride 101 104 Carbon Dioxide 25.0 23.0 Anion Gap 8 9 BUN 42 H 43 H Creatinine 2.23 H 2.47 H Estim Creat Clear Calc 19.14 17.28 Est GFR (MDRD) Af Amer 28 L 25 L Est GFR (MDRD) Non-Af 23 L 20 L BUN/Creatinine Ratio 18.8 17.4 Glucose 321 H 267 H Calcium 8.2 L 8.0 L Phosphorus 4.7 Magnesium 2.2 Total Bilirubin AST ALT Alkaline Phosphatase Total Creatine Kinase Troponin I < 0.015 Total Protein Albumin Globulin Albumin/Globulin Ratio Triglycerides MRSA (PCR) 06/02/18 06/02/18 06/02/18 20:24 20:45 20:45 WBC RBC Hgb Hct MCV MCH MCHC RDW RDW Differential Plt Count MPV Specimen Type ART Sample Site R Radial pH 7.24 L Bicarbonate Actual 21.1 L POC Total CO2 23 Base Excess -6 L O2 Saturation 96 O2 % 100 ABG pCO2 49.7 H ABG pO2 101 H Respiration Rate 14 O2 Delivery Device Vent Minute Volume 6.00 Vent Mode A-C Tidal Volume 450 POC PEEP 5 Blood Gas Notified Whom [facility] Blood Gas Notified Time 2020 Sodium Potassium Chloride Carbon Dioxide Anion Gap BUN Creatinine Estim Creat Clear Calc Est GFR (MDRD) Af Amer Est GFR (MDRD) Non-Af BUN/Creatinine Ratio Glucose Calcium Phosphorus Magnesium Total Bilirubin AST ALT Alkaline Phosphatase Total Creatine Kinase 112 Troponin I Total Protein Albumin Globulin Albumin/Globulin Ratio Triglycerides 91 MRSA (PCR) Negative 06/03/18 06/03/18 04:00 04:00 WBC 17.9 H RBC 3.67 L Hgb 10.1 L Hct 31.8 L MCV 86.6 MCH 27.5 MCHC 31.8 L RDW 14.9 H RDW Differential 46.1 H Plt Count 280 MPV 10.4 Specimen Type Sample Site pH Bicarbonate Actual POC Total CO2 Base Excess O2 Saturation O2 % ABG pCO2 ABG pO2 Respiration Rate O2 Delivery Device Minute Volume Vent Mode Tidal Volume POC PEEP Blood Gas Notified Whom Blood Gas Notified Time Sodium 134 L Potassium 4.0 Chloride 101 Carbon Dioxide 23.0 Anion Gap 10 BUN 49 H Creatinine 2.89 H Estim Creat Clear Calc 14.77 Est GFR (MDRD) Af Amer 21 L Est GFR (MDRD) Non-Af 17 L BUN/Creatinine Ratio 17.0 Glucose 336 H Calcium 7.9 L Phosphorus Magnesium 2.1 Total Bilirubin 0.60 AST 29 ALT 36 Alkaline Phosphatase 111 Total Creatine Kinase Troponin I Total Protein 6.7 Albumin 3.0 L Globulin 3.7 Albumin/Globulin Ratio 0.8 L Triglycerides MRSA (PCR) POC Glucose 06/03/18 06/03/18 06/02/18 10:11 06:08 22:53 POC Glucose 211 H 285 H 341 H 06/02/18 06/02/18 06/01/18 14:43 12:28 21:48 POC Glucose 309 H 403 H 266 H Clinical Impression(s) from Imaging Studies Chest X-Ray 06/01/18 10:35 IMPRESSION: No acute cardiopulmonary disease. Electronically Signed: Mike Toussaint DO at 11:43 EDT Tel , Service support , Chest X-Ray 06/02/18 17:28 IMPRESSION: Right IJ line terminates in the SVC. No demonstrated pneumothorax. Electronically Signed: Jolie Her MD at 18:59 EDT Tel , Service support , Chest X-Ray 06/02/18 18:42 IMPRESSION: Stable cardiomegaly, lines and tubes as above Stable mild scattered bilateral pulmonary opacities Electronically Signed: Perry Velasco at 21:01 EDT Tel , Service support , Assessment/Plan Active and Suspected Problems Respiratory failure with hypoxia (Acute) Acute exacerbation of chronic obstructive pulmonary disease (COPD) (Acute) Bronchospasm (Acute) Viral conjunctivitis (Acute) Allergic conjunctivitis (Acute) Chemosis of conjunctiva (Acute) Bradycardia (Acute) Hypotension (Acute) Decreased responsiveness (Acute) Acute hypoxic respiratory failure (Acute) RECOMMENDATIONS: 1. Wean pressors as tolerated 2. Continue current vent settings 3. Attempt to hold off on transvenous pacing. 4. Continue with empiric antibiotics until culture negative 5. Spontaneous breathing and awakening trials per protocol IMPRESSIONS: 1. Acute respiratory failure Unclear etiology at this time. One would suspect COPD exacerbation secondary to viral illness with something such as adenovirus. However, patient may have an element of CHF secondary to severe bradycardia as another possible etiology. Patient is currently on empiric antibiotics and steroids. We will continue to monitor. Anticipate stabilization of cardiovascular status prior to spontaneous awakening and breathing trials. 2. Cardiogenic shock secondary to bradycardia Unclear etiology at this time. Patient did require transvenous pacing overnight, but appears to be doing well on dopamine at this time. Patient was on extensive beta and calcium channel blockers as an outpatient. Unclear if this is secondary to residual medications given patient's acute kidney injury. Cardiology is currently following. Patient does have an extensive cardiac history. 3. Acute kidney injury on CKD stage III Likely prerenal etiology. Patient does have a 20-1 BUN to creatinine ratio, but is not developing any acidosis or hyperkalemia to indicate a need for renal replacement therapy at this time. We will continue to monitor urine output closely. Blood pressure is much improved compared to previous. May require renal consultation if urine output is not improving in the next 24 hours. Patient will be initiated on tube feeds. 4. Diabetes mellitus type 2 Patient currently with elevated glucose. This is likely secondary to steroid therapy. We will continue to monitor closely. Patient is on sliding scale insulin with a minimal basal dose at this time. This can be titrated up as necessary. 5. GERD/anxiety/morbid obesity/hyperlipidemia/CAD status post CABG/reported COPD Complicates care, management, recovery and prognosis. Quantification of respiratory function is not available at this time. TIME: 45 minutes critical care time spent addressing patient's acute respiratory failure, cardiogenic shock, acute kidney injury, review of all data and collaboration with care team (9 AM to 12 PM) Code Visit [id number]: [id number] Critical care first hour
--- NOTE | 2018-06-03 13:49 | NURSING ---
at bedside, TV pacer turned in and settings verified by capture/spikes. TV pacer returned to off,settings correct. made aware of current dopamine settings and vitals trend w/titrations.
[2018-06-03] MEDS: BACITRACIN 15 GM Tube 1 APPLIC TOPICAL ×2 (14:32→21:06)
[2018-06-03 14:50] LABS: Bedside Glucose 194 mg/dL (70-110)
[2018-06-03 18:25] LABS: Bedside Glucose 213 mg/dL (70-110)
--- NOTE | 2018-06-03 19:08 | NURSING ---
reviewed wilmer Salvador RN charting and agree with assessment findings.
[2018-06-03] MEDS: 0.9% NaCl Peripheral Flush Adult/Peds IV (20:28)
[2018-06-03] MEDS: Furosemide 20 MG/2 ML VIAL IV (20:28)
[2018-06-03] MEDS: Atorvastatin Calcium 80 MG Tablet GT (21:07)
[2018-06-03] MEDS: Gabapentin 100 MG Capsule GT (21:07)
[2018-06-03 21:51] LABS: Bedside Glucose 206 mg/dL (70-110)
--- NOTE | 2018-06-03 21:52 | NURSING ---
bladder scanned for 402 mLs, after repositioning schmidt catheter, patient urinated 400 mLs in schmidt bag.
[2018-06-03 21:56] LABS: Bacteria 0 SEEN /hpf (None Seen); Mucous, Urine 0 SEEN /hpf (<or=2+); Red Blood Cells-Urine 0 SEEN /hpf (0-5); Squamous Epithelial Cells - UA 0 SEEN /hpf (5-10)
[2018-06-03 22:02] LABS: Color, Urine Yellow (Yellow); Glucose, Dipstick Normal (Normal); Ketone-Dipstick 5 mg/dl (Negative); Leukocyte Esterase-Dipstick 100 /ul (Negative); Nitrite-Dipstick Negative (Negative); Occult Blood-Urine Negative /ul (Negative); Protein-Dipstick 30 mg/dl (Negative); Specific Gravity, Urine 1.025 (1.002-1.030); Urine Clarity Clear (Clear); Urine Urobilinogen 1 mg/dl (Normal)
[2018-06-03 22:03] LABS: Urine Bilirubin Dipstick 1 mg/dL (Negative)
[2018-06-03 22:07] LABS: Urine Sodium 16 mmol/L (Not Establ.)
[2018-06-03 22:08] LABS: White Blood Cells 0-5 SEEN /hpf (0-5); Yeast-Urine RARE /hpf (None Seen)
[2018-06-04] VITALS (55 sets, daily range): BP systolic 104–120; BP diastolic 42–84; PULSE 51–76; RESP 16–20; TEMP 35.6–37.1; O2SAT 89–98
--- NOTE | 2018-06-04 01:10 | NURSING ---
soco gar placed at this time.
[2018-06-04] MEDS: Insulin Lispro 100 UNIT/ML INSULN.PEN SC ×6 (01:25→21:03)
[2018-06-04 01:35] LABS: Bedside Glucose 223 mg/dL (70-110)
--- NOTE | 2018-06-04 04:00 | NURSING ---
soco gar off at this time.
[2018-06-04 04:09] LABS: Absolute Neutrophil Count 14.4 X10^3/uL (2.0-7.7); Basophil# 0.01 X10^3/uL; Basophil% 0.1 % (0-1); Differential Indicated SCAN CRITERIA MET; Hematocrit 31.7 % (37-47); Hemoglobin 10.2 g/dl (12.0-15.0); Lymphocyte % 3.9 % (19-41); Mean Corp Hgb Conc 32.2 g/gl (32-36); Mean Corpuscular Hgb 27.7 pg (27.0-32.0); Mean Corpuscular Volume 86.1 fL (81-99); Mean Platelet Vol. 10.4 fl (6.2-12.0); Monocyte# 0.43 X10^3/uL; Monocyte% 2.8 % (0-10); Neutrophil # 14.35 X10^3/uL (2.7-7.7); Neutrophil % 92.6 % (47-70); POSITIVE COUNT NO; POSITIVE DIFFERENTIAL YES; POSITIVE MORPHOLOGY NO; Platelet Count 331 K/mm3 (150-450); RBC Distribution Width SD 46.1 fl (35.1-43.9); Red Blood Count 3.68 M/mm3 (4.2-5.4); White Blood Count 15.5 K/mm3 (4.4-11.0)
[2018-06-04 04:17] LABS: Anion Gap 10 (5-15); BUN 65 mg/dL (7-18); BUN/Creat Ratio 21.2 RATIO (10-20); Calcium,Total 7.7 mg/dL (8.5-10.1); Chloride 102 mmol/L (98-107); Creatinine, Serum 3.06 mg/dL (0.55-1.02); EST Glomerular Filtration Rate 16 mL/min (>60); Est Glom Filt Rate - Afr Amer 19 mL/min (>60); Estimated Creatinine Clearance 13.95 ml/min; Glucose 231 mg/dL (74-106); Potassium 4.9 mmol/L (3.5-5.1); Sodium Level 134 mmol/L (136-145)
[2018-06-04 05:36] LABS: Bedside Glucose 230 mg/dL (70-110)
[2018-06-04] MEDS: Ipratropium/Albuterol Sulfate 3 ML AMPUL.NEB INHALATION ×3 (06:43→18:50)
[2018-06-04] MEDS: fentaNYL drip 100 ML 2.5 MCG CONT INF ×2 (07:00→18:25)
[2018-06-04] MEDS: DOPamine IV 800 MG/250 ML IV.SOLN. 10.546 MG CONT INF (07:30)
--- NOTE | 2018-06-04 07:51 | PCM.PN.INT ---
Subjective: Patient did okay overnight. Patient did have some issues with oxygenation and PEEP had to be increased to 10 cm of water. There was some concern for decreased urine output, but patient was found to have a dysfunctioning Kimble catheter. Patient has not had to be placed back on transcutaneous pacing and dopamine has been able to be weaned from 20-->12.5. Objective: Echocardiogram is unchanged compared to previous. EF of 60% with stage II diastolic dysfunction and a PAS P of 44 General: No apparent distress, - - Morbidly obese. Anasarca. Good vent synchrony noted. HEENT: Atraumatic, PERRLA, EOMI, Normocephalic, - - Slight scleral injection Oral: Moist Mucosa, No Gingival or Mucosal Lesions/ Ulcerations Neck: Supple, No Nodes, Trachea Midline, - - Right IJ is clean, dry and intact Lungs: No rhonchi, No wheeze, No rales, Diminished, - - Symmetric expansion. Cardiovascular: Regular rate, Regular Rhythm, Normal S1, Normal S2, No murmurs, No rub noted, No Gallop, - - Sinus rhythm noted on telemetry Abdomen: Bowel Sounds Present, Soft, Non Tender, Non-Distended, Obese, - - Tube feeds at goal Extremities: No clubbing, No cyanosis, Edema Skin: - - No significant change compared to previous Musculoskeletal: No Tenderness to Palpation of Joints or Extremities Lymphatic: No Cervical, Supraclavicular, or Inguinal Adenopathy Neurological: Neuro grossly intact Psych/Mental Status: Flat Affect Vital Signs Temp Pulse Resp BP Pulse Ox 36.9 C 63 16 111/52 L 92 06/04/18 07:00 06/04/18 07:00 06/04/18 07:00 06/04/18 07:00 06/04/18 07:00 Oxygen Flow Rate (L/min) 1 Oxygen Delivery Method Mechanical Ventilator Weight: 117.8 kg Body Mass Index (BMI) 43.9 Finger Stick Blood Glucose 155 Intake and Output for Last 24 Hours 06/02/18 06/03/18 06/04/18 23:59 23:59 23:59 Intake Total 1168 / 1168 6999.1 / 6999.1 820.4 / 820.4 Output Total 430 / 430 150 / 150 Balance 1168 / 1168 6569.1 / 6569.1 670.4 / 670.4 Labs (Last 48 Hours) 06/01/18 06/02/18 06/02/18 21:48 11:32 12:28 WBC RBC Hgb Hct MCV MCH MCHC RDW RDW Differential Plt Count MPV Immature Gran % (Auto) Neut % (Auto) Lymph % (Auto) [place] % (Auto) Eos % (Auto) Baso % (Auto) Absolute Neuts (auto) Absolute Lymphs (auto) Total Counted Differential Comment Specimen Type Sample Site pH Bicarbonate Actual POC Total CO2 Base Excess O2 Saturation O2 % ABG pCO2 ABG pO2 Respiration Rate O2 Delivery Device Minute Volume Vent Mode Tidal Volume POC PEEP Blood Gas Notified Whom Blood Gas Notified Time Sodium 134 L Potassium 4.4 Chloride 101 Carbon Dioxide 25.0 Anion Gap 8 BUN 42 H Creatinine 2.23 H Estim Creat Clear Calc 19.14 Est GFR (MDRD) Af Amer 28 L Est GFR (MDRD) Non-Af 23 L BUN/Creatinine Ratio 18.8 Glucose 321 H Calcium 8.2 L Phosphorus Magnesium Total Bilirubin AST ALT Alkaline Phosphatase Total Creatine Kinase Troponin I Total Protein Albumin Globulin Albumin/Globulin Ratio Triglycerides Urine Color Urine Clarity Urine pH Ur Specific [place] Urine Protein Urine Glucose (UA) Urine Ketones Urine Occult Blood Urine Nitrite Urine Bilirubin Urine Urobilinogen Ur Leukocyte Esterase Urine RBC Urine WBC Ur Squamous Epith Cells Urine Bacteria Urine Mucus Urine Yeast Ur Random Sodium Urine Creatinine MRSA (PCR) POC Glucose 266 H 403 H 06/02/18 06/02/18 06/02/18 14:43 15:44 15:44 WBC RBC Hgb Hct MCV MCH MCHC RDW RDW Differential Plt Count MPV Immature Gran % (Auto) Neut % (Auto) Lymph % (Auto) [place] % (Auto) Eos % (Auto) Baso % (Auto) Absolute Neuts (auto) Absolute Lymphs (auto) Total Counted Differential Comment Specimen Type Sample Site pH Bicarbonate Actual POC Total CO2 Base Excess O2 Saturation O2 % ABG pCO2 ABG pO2 Respiration Rate O2 Delivery Device Minute Volume Vent Mode Tidal Volume POC PEEP Blood Gas Notified Whom Blood Gas Notified Time Sodium 136 Potassium 4.6 Chloride 104 Carbon Dioxide 23.0 Anion Gap 9 BUN 43 H Creatinine 2.47 H Estim Creat Clear Calc 17.28 Est GFR (MDRD) Af Amer 25 L Est GFR (MDRD) Non-Af 20 L BUN/Creatinine Ratio 17.4 Glucose 267 H Calcium 8.0 L Phosphorus 4.7 Magnesium 2.2 Total Bilirubin AST ALT Alkaline Phosphatase Total Creatine Kinase Troponin I < 0.015 Total Protein Albumin Globulin Albumin/Globulin Ratio Triglycerides Urine Color Urine Clarity Urine pH Ur Specific [place] Urine Protein Urine Glucose (UA) Urine Ketones Urine Occult Blood Urine Nitrite Urine Bilirubin Urine Urobilinogen Ur Leukocyte Esterase Urine RBC Urine WBC Ur Squamous Epith Cells Urine Bacteria Urine Mucus Urine Yeast Ur Random Sodium Urine Creatinine MRSA (PCR) POC Glucose 309 H 06/02/18 06/02/18 06/02/18 20:24 20:45 20:45 WBC RBC Hgb Hct MCV MCH MCHC RDW RDW Differential Plt Count MPV Immature Gran % (Auto) Neut % (Auto) Lymph % (Auto) [place] % (Auto) Eos % (Auto) Baso % (Auto) Absolute Neuts (auto) Absolute Lymphs (auto) Total Counted Differential Comment Specimen Type ART Sample Site R Radial pH 7.24 L Bicarbonate Actual 21.1 L POC Total CO2 23 Base Excess -6 L O2 Saturation 96 O2 % 100 ABG pCO2 49.7 H ABG pO2 101 H Respiration Rate 14 O2 Delivery Device Vent Minute Volume 6.00 Vent Mode A-C Tidal Volume 450 POC PEEP 5 Blood Gas Notified Whom HOSP Blood Gas Notified Time 2020 Sodium Potassium Chloride Carbon Dioxide Anion Gap BUN Creatinine Estim Creat Clear Calc Est GFR (MDRD) Af Amer Est GFR (MDRD) Non-Af BUN/Creatinine Ratio Glucose Calcium Phosphorus Magnesium Total Bilirubin AST ALT Alkaline Phosphatase Total Creatine Kinase 112 Troponin I Total Protein Albumin Globulin Albumin/Globulin Ratio Triglycerides 91 Urine Color Urine Clarity Urine pH Ur Specific [place] Urine Protein Urine Glucose (UA) Urine Ketones Urine Occult Blood Urine Nitrite Urine Bilirubin Urine Urobilinogen Ur Leukocyte Esterase Urine RBC Urine WBC Ur Squamous Epith Cells Urine Bacteria Urine Mucus Urine Yeast Ur Random Sodium Urine Creatinine MRSA (PCR) Negative POC Glucose 06/02/18 06/03/18 06/03/18 22:53 04:00 04:00 WBC 17.9 H RBC 3.67 L Hgb 10.1 L Hct 31.8 L MCV 86.6 MCH 27.5 MCHC 31.8 L RDW 14.9 H RDW Differential 46.1 H Plt Count 280 MPV 10.4 Immature Gran % (Auto) Neut % (Auto) Lymph % (Auto) [place] % (Auto) Eos % (Auto) Baso % (Auto) Absolute Neuts (auto) Absolute Lymphs (auto) Total Counted Differential Comment Specimen Type Sample Site pH Bicarbonate Actual POC Total CO2 Base Excess O2 Saturation O2 % ABG pCO2 ABG pO2 Respiration Rate O2 Delivery Device Minute Volume Vent Mode Tidal Volume POC PEEP Blood Gas Notified Whom Blood Gas Notified Time Sodium 134 L Potassium 4.0 Chloride 101 Carbon Dioxide 23.0 Anion Gap 10 BUN 49 H Creatinine 2.89 H Estim Creat Clear Calc 14.77 Est GFR (MDRD) Af Amer 21 L Est GFR (MDRD) Non-Af 17 L BUN/Creatinine Ratio 17.0 Glucose 336 H Calcium 7.9 L Phosphorus Magnesium 2.1 Total Bilirubin 0.60 AST 29 ALT 36 Alkaline Phosphatase 111 Total Creatine Kinase Troponin I Total Protein 6.7 Albumin 3.0 L Globulin 3.7 Albumin/Globulin Ratio 0.8 L Triglycerides Urine Color Urine Clarity Urine pH Ur Specific [place] Urine Protein Urine Glucose (UA) Urine Ketones Urine Occult Blood Urine Nitrite Urine Bilirubin Urine Urobilinogen Ur Leukocyte Esterase Urine RBC Urine WBC Ur Squamous Epith Cells Urine Bacteria Urine Mucus Urine Yeast Ur Random Sodium Urine Creatinine MRSA (PCR) POC Glucose 341 H 06/03/18 06/03/18 06/03/18 06:08 10:11 14:30 WBC RBC Hgb Hct MCV MCH MCHC RDW RDW Differential Plt Count MPV Immature Gran % (Auto) Neut % (Auto) Lymph % (Auto) [place] % (Auto) Eos % (Auto) Baso % (Auto) Absolute Neuts (auto) Absolute Lymphs (auto) Total Counted Differential Comment Specimen Type Sample Site pH Bicarbonate Actual POC Total CO2 Base Excess O2 Saturation O2 % ABG pCO2 ABG pO2 Respiration Rate O2 Delivery Device Minute Volume Vent Mode Tidal Volume POC PEEP Blood Gas Notified Whom Blood Gas Notified Time Sodium Potassium Chloride Carbon Dioxide Anion Gap BUN Creatinine Estim Creat Clear Calc Est GFR (MDRD) Af Amer Est GFR (MDRD) Non-Af BUN/Creatinine Ratio Glucose Calcium Phosphorus Magnesium Total Bilirubin AST ALT Alkaline Phosphatase Total Creatine Kinase Troponin I Total Protein Albumin Globulin Albumin/Globulin Ratio Triglycerides Urine Color Urine Clarity Urine pH Ur Specific [place] Urine Protein Urine Glucose (UA) Urine Ketones Urine Occult Blood Urine Nitrite Urine Bilirubin Urine Urobilinogen Ur Leukocyte Esterase Urine RBC Urine WBC Ur Squamous Epith Cells Urine Bacteria Urine Mucus Urine Yeast Ur Random Sodium Urine Creatinine MRSA (PCR) POC Glucose 285 H 211 H 194 H 04/03/2306/03/18 06/03/18 17:49 21:10 21:45 WBC RBC Hgb Hct MCV MCH MCHC RDW RDW Differential Plt Count MPV Immature Gran % (Auto) Neut % (Auto) Lymph % (Auto) [place] % (Auto) Eos % (Auto) Baso % (Auto) Absolute Neuts (auto) Absolute Lymphs (auto) Total Counted Differential Comment Specimen Type Sample Site pH Bicarbonate Actual POC Total CO2 Base Excess O2 Saturation O2 % ABG pCO2 ABG pO2 Respiration Rate O2 Delivery Device Minute Volume Vent Mode Tidal Volume POC PEEP Blood Gas Notified Whom Blood Gas Notified Time Sodium Potassium Chloride Carbon Dioxide Anion Gap BUN Creatinine Estim Creat Clear Calc Est GFR (MDRD) Af Amer Est GFR (MDRD) Non-Af BUN/Creatinine Ratio Glucose Calcium Phosphorus Magnesium Total Bilirubin AST ALT Alkaline Phosphatase Total Creatine Kinase Troponin I Total Protein Albumin Globulin Albumin/Globulin Ratio Triglycerides Urine Color Urine Clarity Urine pH Ur Specific [place] Urine Protein Urine Glucose (UA) Urine Ketones Urine Occult Blood Urine Nitrite Urine Bilirubin Urine Urobilinogen Ur Leukocyte Esterase Urine RBC Urine WBC Ur Squamous Epith Cells Urine Bacteria Urine Mucus Urine Yeast Ur Random Sodium Urine Creatinine 169.00 MRSA (PCR) POC Glucose 213 H 206 H 06/03/18 06/03/18 06/04/18 21:45 21:45 01:24 WBC RBC Hgb Hct MCV MCH MCHC RDW RDW Differential Plt Count MPV Immature Gran % (Auto) Neut % (Auto) Lymph % (Auto) [place] % (Auto) Eos % (Auto) Baso % (Auto) Absolute Neuts (auto) Absolute Lymphs (auto) Total Counted Differential Comment Specimen Type Sample Site pH Bicarbonate Actual POC Total CO2 Base Excess O2 Saturation O2 % ABG pCO2 ABG pO2 Respiration Rate O2 Delivery Device Minute Volume Vent Mode Tidal Volume POC PEEP Blood Gas Notified Whom Blood Gas Notified Time Sodium Potassium Chloride Carbon Dioxide Anion Gap BUN Creatinine Estim Creat Clear Calc Est GFR (MDRD) Af Amer Est GFR (MDRD) Non-Af BUN/Creatinine Ratio Glucose Calcium Phosphorus Magnesium Total Bilirubin AST ALT Alkaline Phosphatase Total Creatine Kinase Troponin I Total Protein Albumin Globulin Albumin/Globulin Ratio Triglycerides Urine Color Yellow Urine Clarity Clear Urine pH 5.0 Ur Specific [place] 1.025 Urine Protein 30 H Urine Glucose (UA) Normal Urine Ketones 5 H Urine Occult Blood Negative Urine Nitrite Negative Urine Bilirubin 1 H Urine Urobilinogen 1 H Ur Leukocyte Esterase 100 H Urine RBC 0 SEEN Urine WBC 0-5 SEEN Ur Squamous Epith Cells 0 SEEN Urine Bacteria 0 SEEN Urine Mucus 0 SEEN Urine Yeast RARE Ur Random Sodium 16 Urine Creatinine MRSA (PCR) POC Glucose 223 H 06/04/18 06/04/18 06/04/18 04:00 04:00 05:07 WBC 15.5 H RBC 3.68 L Hgb 10.2 L Hct 31.7 L MCV 86.1 MCH 27.7 MCHC 32.2 RDW 15.0 H RDW Differential 46.1 H Plt Count 331 MPV 10.4 Immature Gran % (Auto) 0.600 Neut % (Auto) 92.6 H Lymph % (Auto) 3.9 L [place] % (Auto) 2.8 Eos % (Auto) 0.0 Baso % (Auto) 0.1 Absolute Neuts (auto) 14.4 H Absolute Lymphs (auto) 0.60 L Total Counted Not Reportable Differential Comment Specimen Type Sample Site pH Bicarbonate Actual POC Total CO2 Base Excess O2 Saturation O2 % ABG pCO2 ABG pO2 Respiration Rate O2 Delivery Device Minute Volume Vent Mode Tidal Volume POC PEEP Blood Gas Notified Whom Blood Gas Notified Time Sodium 134 L Potassium 4.9 Chloride 102 Carbon Dioxide 22.0 Anion Gap 10 BUN 65 H Creatinine 3.06 H Estim Creat Clear Calc 13.95 Est GFR (MDRD) Af Amer 19 L Est GFR (MDRD) Non-Af 16 L BUN/Creatinine Ratio 21.2 H Glucose 231 H Calcium 7.7 L Phosphorus Magnesium Total Bilirubin AST ALT Alkaline Phosphatase Total Creatine Kinase Troponin I Total Protein Albumin Globulin Albumin/Globulin Ratio Triglycerides Urine Color Urine Clarity Urine pH Ur Specific [place] Urine Protein Urine Glucose (UA) Urine Ketones Urine Occult Blood Urine Nitrite Urine Bilirubin Urine Urobilinogen Ur Leukocyte Esterase Urine RBC Urine WBC Ur Squamous Epith Cells Urine Bacteria Urine Mucus Urine Yeast Ur Random Sodium Urine Creatinine MRSA (PCR) POC Glucose 230 H Microbiology 06/01/18 15:35 Mucosa - Nasopharyngeal Respiratory Panel (PCR) - Final Medical Necessity - Tobacco Use Smoking Status: Former smoker Tobacco Use: Cigarettes Assessment/Plan All Active Problems Respiratory failure with hypoxia (Acute) Acute exacerbation of chronic obstructive pulmonary disease (COPD) (Acute) Bronchospasm (Acute) Viral conjunctivitis (Acute) Allergic conjunctivitis (Acute) Chemosis of conjunctiva (Acute) Bradycardia (Acute) Hypotension (Acute) Decreased responsiveness (Acute) Acute hypoxic respiratory failure (Acute) Acute kidney injury (Acute) Prerenal azotemia (Resolved) RECOMMENDATIONS: 1. Wean pressors as tolerated 2. Wean PEEP as tolerated 3. Defer to cardiology on removal of trans-cutaneous pacer 4. Continue with empiric antibiotics until culture negative 5. Spontaneous breathing and awakening trials per protocol IMPRESSIONS: 1. Acute respiratory failure Unclear etiology at this time. One would suspect COPD exacerbation secondary to viral illness with something such as adenovirus given reported scleral injection. However, patient may have an element of CHF secondary to severe bradycardia as another possible etiology. Patient is currently on empiric antibiotics and steroids. We will continue to monitor. Anticipate stabilization of cardiovascular status prior to spontaneous awakening and breathing trials. We will wean PEEP and FiO2 as tolerated. 2. Cardiogenic shock secondary to bradycardia Unclear etiology at this time. Patient did require transvenous pacing overnight, but appears to be doing well on dopamine at this time. We will continue to wean dopamine as tolerated. Patient was on extensive beta and calcium channel blockers as an outpatient. Unclear if this is secondary to residual medications given patient's acute kidney injury. Cardiology is currently following. Patient does have an extensive cardiac history. 3. Acute kidney injury on CKD stage III Likely prerenal etiology. Renal function is grossly unchanged compared to previous. Patient does have some urine output at this time, but is developing edema. Patient was given a little Lasix yesterday and tolerated this well. No indication for renal replacement therapy at this time 4. Diabetes mellitus type 2 Patient currently with elevated glucose. This is likely secondary to steroid therapy. We will continue to monitor closely. Basal insulin will be increased. Continue with sliding scale insulin. 5. GERD/anxiety/morbid obesity/hyperlipidemia/CAD status post CABG/reported COPD Complicates care, management, recovery and prognosis. Quantification of respiratory function is not available at this time. TIME: 37 minutes critical care time spent addressing patient's acute respiratory failure, cardiogenic shock, acute kidney injury, review of all data and collaboration with care team (5:50 AM to 8 AM) Code Visit [id number]: [id number] Critical care first hour
--- NOTE | 2018-06-04 08:00 | US_ITS ---
STUDY: RENAL ULTRASOUND - COMPLETE REASON FOR EXAM: Female, 72 years old. Acute renal failure TECHNIQUE: Ultrasound evaluation of the kidneys was performed with real-time and static ruby-scale imaging. COMPARISON: None. FINDINGS: RIGHT KIDNEY: Normal location of the right kidney, which is normal in size. The right kidney measures 9.9 x 4.8 x 4.5 cm. There is mild echogenic cortex of the right kidney. The renal cortex measures 1.1 cm. There is no right renal mass or cyst. There are no right renal calculi. There is no right hydronephrosis. DISTAL RIGHT URETER: There is non-visualization of the distal right ureter. LEFT KIDNEY: Normal location of the left kidney, which is normal in size. The left kidney measures 10.5 x 4.3 x 4.4 cm. There is mild echogenic cortex of the left kidney. The renal cortex measures 1.2 cm. There is no left renal mass or cyst. There are no left renal calculi. There is no left hydronephrosis. DISTAL LEFT URETER: There is non-visualization of the distal left ureter. BLADDER: Kimble catheter decompressing the urinary bladder.. US/Kidney and Bladder IMPRESSION: Mildly echogenic cortex of the kidneys may be due to medical renal disease. Electronically Signed: Mele Khalil DO at 23:08 EDT Tel [phone], Service support ,
[2018-06-04] MEDS: Propofol 10MG/Ml 1,000 MG/100 ML Bottle 6.749 MG CONT INF ×2 (08:03→22:49)
--- NOTE | 2018-06-04 09:00 | NURSING ---
Pacer wire pulled by Dr Clarke. Venous sheath remains in place.
--- NOTE | 2018-06-04 09:31 | PCM.PN.HOSP ---
Patient Problems: Active and Suspected Problems Respiratory failure with hypoxia (Acute) Acute exacerbation of chronic obstructive pulmonary disease (COPD) (Acute) Bronchospasm (Acute) Viral conjunctivitis (Acute) Allergic conjunctivitis (Acute) Chemosis of conjunctiva (Acute) Bradycardia (Acute) Hypotension (Acute) Decreased responsiveness (Acute) Acute hypoxic respiratory failure (Acute) Subjective: Patient seen and examined. She remains intubated and sedated. She remains on dopamine drip. Per discussion with her nurse, no acute events overnight. Patient passed all 400 cc of urine yesterday number 150 cc overnight. Creatinine noted to have trended up to 3.06. Labs and vitals reviewed. She is in positive balance by 9.1 L since admission. She has not required transcutaneous pacemaker since yesterday after was taken off and her heart rate has remained in the 50s and 60s. Vitals/I&O's: Vital Signs Temp Pulse Resp BP Pulse Ox 98.4 F 63 16 111/52 L 92 06/04/18 07:00 06/04/18 07:00 06/04/18 07:00 06/04/18 07:00 06/04/18 07:00 Oxygen Flow Rate (L/min) 1 Oxygen Delivery Method Mechanical Ventilator Weight: 259 lb 11.272 oz Body Mass Index (BMI) 43.9 Finger Stick Blood Glucose 155 Intake and Output for Last 24 Hours 06/02/18 06/03/18 06/04/18 23:59 23:59 23:59 Intake Total 1168 / 1168 6999.1 / 6999.1 820.4 / 820.4 Output Total 430 / 430 150 / 150 Balance 1168 / 1168 6569.1 / 6569.1 670.4 / 670.4 General: - - intubated, sedated, RASS score is -3 HEENT: Atraumatic, PERRLA, EOMI, Normocephalic Oral: Dry Mucosa Neck: Supple, No JVD, Negative Carotid Bruits Lungs: - - decreased breath sounds bibasally, no wheezes or crackles Cardiovascular: Regular rate, Regular Rhythm, Normal S1, Normal S2, No murmurs Abdomen: Bowel Sounds Present, Soft, Non Tender Extremities: No clubbing, No cyanosis, No edema, Capillary Refill Less than 3 Seconds Skin: No rashes, No breakdown Musculoskeletal: No Tenderness to Palpation of Joints or Extremities Lymphatic: No Cervical, Supraclavicular, or Inguinal Adenopathy Neurological: Cranial nerves II-XII grossly intact Psych/Mental Status: - - intubated, sedated. RASS score is ~ -3 Microbiology Past 72 Hours 06/03/18 21:45 Urine Catheter - Catheter Urine Culture - Preliminary Culture exhibits no growth. 06/03/18 19:30 Sputum, Induced/Lukens Respiratory Culture - Preliminary GNR lactose hospital clerk 06/01/18 15:35 Mucosa - Nasopharyngeal Respiratory Panel (PCR) - Final Laboratory Results 06/03/18 10:11: POC Glucose 211 H 06/03/18 14:30: POC Glucose 194 H 06/03/18 17:49: POC Glucose 213 H 06/03/18 21:10: POC Glucose 206 H 06/03/18 21:45: Urine Creatinine 169.00 06/03/18 21:45: Urine Color Yellow, Urine Clarity Clear, Urine pH 5.0, Ur Specific [place] 1.025, Urine Protein 30 H, Urine Glucose (UA) Normal, Urine Ketones 5 H, Urine Occult Blood Negative, Urine Nitrite Negative, Urine Bilirubin 1 H, Urine Urobilinogen 1 H, Ur Leukocyte Esterase 100 H, Urine RBC 0 SEEN, Urine WBC 0-5 SEEN, Ur Squamous Epith Cells 0 SEEN, Urine Bacteria 0 SEEN, Urine Mucus 0 SEEN, Urine Yeast RARE 06/03/18 21:45: Ur Random Sodium 16 06/04/18 01:24: POC Glucose 223 H 06/04/18 04:00: WBC 15.5 H, RBC 3.68 L, Hgb 10.2 L, Hct 31.7 L, MCV 86.1, MCH 27.7, MCHC 32.2, RDW 15.0 H, RDW Differential 46.1 H, Plt Count 331, MPV 10.4, Immature Gran % (Auto) 0.600, Neut % (Auto) 92.6 H, Lymph % (Auto) 3.9 L, [place] % (Auto) 2.8, Eos % (Auto) 0.0, Baso % (Auto) 0.1, Absolute Neuts (auto) 14.4 H, Absolute Lymphs (auto) 0.60 L, Total Counted Not Reportable, Differential Comment 06/04/18 04:00: Sodium 134 L, Potassium 4.9, Chloride 102, Carbon Dioxide 22.0, Anion Gap 10, BUN 65 H, Creatinine 3.06 H, Estim Creat Clear Calc 13.95, Est GFR (MDRD) Af Amer 19 L, Est GFR (MDRD) Non-Af 16 L, BUN/Creatinine Ratio 21.2 H, Glucose 231 H, Calcium 7.7 L 06/04/18 05:07: POC Glucose 230 H Diagnostic Data Chest X-Ray 06/02/18 18:42 IMPRESSION: Stable cardiomegaly, lines and tubes as above Stable mild scattered bilateral pulmonary opacities Electronically Signed: Perry Velasco, at 21:01 EDT Tel , Service support , Current Medications Albuterol Sulfate (Ventolin Aerosols) 2.5 mg INHALATION Q2H PRN PRN PRN Reason: SHORTNESS OF BREATH Albuterol/Ipratropium (Duoneb) 3 ml INHALATION Q4HWA.RT [facility] Last Admin: 06/04/18 06:43 Dose: 3 ml Atorvastatin Calcium (Lipitor) 80 mg GT DAILY@2200 [facility] Last Admin: 06/03/18 21:07 Dose: 80 mg Bacitracin (Bacitracin Ointment) 1 applic TOPICAL BID [facility]; Protocol Last Admin: 06/03/18 21:06 Dose: 1 applicatio Chlorhexidine Gluconate () 15 ml PO BID [facility] Last Admin: 06/03/18 21:06 Dose: 15 ml Chlorhexidine Gluconate () 1 each TOPICAL DAILY [facility] Last Admin: 06/03/18 09:32 Dose: 1 each Dextrose (D50w Syringe) 0 gm IV X1 PRN; Protocol PRN Reason: Hypoglycemia Enoxaparin Sodium (Lovenox) 30 mg SC DAILY@1000 [facility] Last Admin: 06/03/18 10:01 Dose: 30 mg Gabapentin (Neurontin) 100 mg GT BID [facility] Last Admin: 06/03/18 21:07 Dose: 100 mg Glucagon () 1 mg IM .X1 PRN PRN Reason: Hypoglycemia Hydralazine HCl (Apresoline Iv) 10 mg IV Q4H PRN PRN PRN Reason: BLOOD PRESSURE Dopamine HCl/Dextrose () 800 mg in 250 mls @ 10.546 mls/hr CONT INF .[id number] [facility] Last Admin: 06/04/18 07:30 Dose: 10.546 mls/hr Norepinephrine Bitartrate 8 mg (/ Sodium Chloride) 250 mls @ 9.38 mls/hr CONT INF .[id number] [facility] Last Admin: 06/03/18 20:43 Dose: Not Given Fentanyl () 100 mls @ 2.5 mls/hr CONT INF .Q40H [facility] Last Admin: 06/04/18 07:00 Dose: 2.5 mls/hr Meropenem 1 gm/ Sodium (Chloride) 120 mls @ 33 mls/hr IV Q12 [facility] Last Admin: 06/03/18 21:06 Dose: 33 mls/hr Sodium Chloride () 250 mls @ 15 mls/hr IV .[id number] PRN PRN Reason: SALINE FLUSH Propofol (Diprivan) 1,000 mg in 100 mls @ 6.749 mls/hr CONT INF .Q12H [facility]; Protocol Last Admin: 06/04/18 08:03 Dose: 6.749 mls/hr Enteral Nutritional Formula (Vital Af 1.2 Dar Liquid) 1,000 mls @ 65 mls/hr GT .[id number] [facility] Last Admin: 06/04/18 01:10 Dose: Not Given Insulin Glargine (Lantus (Bkc)) 15 units SC QHS [facility] Insulin Human Lispro (Humalog Kwikpen (Bkc)) 0 unit SC Q4 [facility]; Protocol Last Admin: 06/04/18 05:08 Dose: 6 u Lansoprazole (Prevacid) 30 mg GT DAILY [facility] Last Admin: 06/03/18 10:18 Dose: 30 mg Magnesium Hydroxide (Milk Of Magnesia) 30 ml PO DAILY PRN PRN PRN Reason: Constipation Methylprednisolone (Solu-Medrol) 40 mg IV Q8 [facility] Last Admin: 06/04/18 05:08 Dose: 40 mg Ondansetron HCl (Zofran) 4 mg IV Q6H PRN PRN PRN Reason: NAUSEA/VOMITING Polyethylene Glycol (Miralax) 17 gm GT BID [facility] Last Admin: 06/03/18 21:06 Dose: 17 gm Senna/Docusate Sodium (Senokot-S, Cora-Colace) 2 tablet GT BID [facility] Last Admin: 06/03/18 21:07 Dose: 2 tablet Sodium Chloride () 5 - 15 ml IV UD PRN PRN Reason: SALINE FLUSH Last Admin: 06/03/18 20:28 Dose: 10 ml Sodium Chloride () 10 - 40 ml IV UD PRN PRN Reason: MULTILUMEN/HICMAN CATH FLUSH Last Admin: 06/03/18 03:57 Dose: 20 ml Medical Necessity - Tobacco Use Smoking Status: Former smoker Tobacco Use: Cigarettes Assessment/Plan All Active Problems Respiratory failure with hypoxia (Acute) Acute exacerbation of chronic obstructive pulmonary disease (COPD) (Acute) Bronchospasm (Acute) Viral conjunctivitis (Acute) Allergic conjunctivitis (Acute) Chemosis of conjunctiva (Acute) Bradycardia (Acute) Hypotension (Acute) Decreased responsiveness (Acute) Acute hypoxic respiratory failure (Acute) Acute kidney injury (Acute) Prerenal azotemia (Resolved) 1. Cardiogenic shock due to bradycardia Was emergently intubated after becoming bradycardic and hypotensive. currently on dopamine, levophed stopped. required temporary pacemaker, but this has been discontinued as bradycardia was thought to be medication induced. HR now in 50s and 60s cadrdiology and park recreation manager on board All blood pressure meds on hold-carvedilol, amlodipine, Cardizem. Hydrochlorothiazide had been stopped before admission. Levophed currently weaned off. On dopamine. Cardiology and park recreation manager on board. 2D echo showed EF of 60%, with stage 2 diastolic dysfunction and normal LV systolic function 2. Acute hypoxic and hypercapnic respiratory failure due to probable COPD exacerbation remains intubated and sedated on breathing treatments and IV solumedrol park recreation manager on board; PEEP had to be increased to [id number] overnight, and her FiO2 is 60% 3. KURT on CKD likely pre-renal due to medication induced hypotension and bradycardia CR up to 3.06 today; FeNa is 0.2, indicating a pre-renal cause of KURT nephrology consult- park recreation manager still prefers to defer nephrology consult for now kidney and bladder USG pending 4. Hypertensive urgency: Resolved. 5. Type 2 diabetes mellitus: Metformin on hold on account of KRUT. on Insulin lantus 15IU qhs Insulin sliding scale. Accu-Cheks every 6 hours. 6. GERD: on PPI. 7. Acute viral conjunctivitis: Resolved. 8. Mild hyponatremia: Sodium is 134. Likely due to hypotension. Will monitor with IV fluid administration. 9. Hyperlipidemia: On statin 10. DVT prophylaxis: renal dose of lovenox Code Visit Inpatient E&M: [address] [facility] Hosp L3
--- NOTE | 2018-06-04 09:35 | CASEMGMT ---
RN CM Assessment/Note: family emotional after rounds re: pt's continuing on ventilator and slow improvement. RN CM and Resp Therapist spoke with daughters and son re: plan of care outlined in interdisciplinary rounds. Questions answered, emotional support given. Daughters wished to speak again with Dr. Ferreira, nurse updated and Dr. Ferreira to speak with them. Detailed learning administrator deferred again today as family is emotional. Pt remains on ventilator, PT/OT deferred today. CM will continue to follow and address dc needs when family/pt ready to discuss further. PCP: Dr. Laird Insurance: [facility] Prescription Coverage: yes LNOK: DaughterDoris Living Arrangements: per daughters, pt was independent, ambulatory prior to admission DC PLAN: undetermined. Awaiting PT/OT evaluations. Pt remains on ventilator. Family is supportive. Anticipate pt may need SNF on discharge. Opal SHERIFFN RN ACM
--- NOTE | 2018-06-04 09:48 | PN_ITS ---
Patient Problems: Active and Suspected Problems Respiratory failure with hypoxia (Acute) Acute exacerbation of chronic obstructive pulmonary disease (COPD) (Acute) Bronchospasm (Acute) Viral conjunctivitis (Acute) Allergic conjunctivitis (Acute) Chemosis of conjunctiva (Acute) Bradycardia (Acute) Hypotension (Acute) Decreased responsiveness (Acute) Acute hypoxic respiratory failure (Acute) Subjective: Patient seen and examined. She remains intubated and sedated. She remains on dopamine drip. Per discussion with her nurse, no acute events overnight. Patient passed all 400 cc of urine yesterday number 150 cc overnight. Creatinine noted to have trended up to 3.06. Labs and vitals reviewed. She is in positive balance by 9.1 L since admission. She has not required transcutaneous pacemaker since yesterday after was taken off and her heart rate has remained in the 50s and 60s. Vitals/I&O's: Vital Signs Temp Pulse Resp BP Pulse Ox 98.4 F 63 16 111/52 L 92 06/04/18 07:00 06/04/18 07:00 06/04/18 07:00 06/04/18 07:00 06/04/18 07:00 Oxygen Flow Rate (L/min) 1 Oxygen Delivery Method Mechanical Ventilator Weight: 259 lb 11.272 oz Body Mass Index (BMI) 43.9 Finger Stick Blood Glucose 155 Intake and Output for Last 24 Hours 06/02/18 06/03/18 06/04/18 23:59 23:59 23:59 Intake Total 1168 / 1168 6999.1 / 6999.1 820.4 / 820.4 Output Total 430 / 430 150 / 150 Balance 1168 / 1168 6569.1 / 6569.1 670.4 / 670.4 General: - - intubated, sedated, RASS score is -3 HEENT: Atraumatic, PERRLA, EOMI, Normocephalic Oral: Dry Mucosa Neck: Supple, No JVD, Negative Carotid Bruits Lungs: - - decreased breath sounds bibasally, no wheezes or crackles Cardiovascular: Regular rate, Regular Rhythm, Normal S1, Normal S2, No murmurs Abdomen: Bowel Sounds Present, Soft, Non Tender Extremities: No clubbing, No cyanosis, No edema, Capillary Refill Less than 3 Seconds Skin: No rashes, No breakdown Musculoskeletal: No Tenderness to Palpation of Joints or Extremities Lymphatic: No Cervical, Supraclavicular, or Inguinal Adenopathy Neurological: Cranial nerves II-XII grossly intact Psych/Mental Status: - - intubated, sedated. RASS score is ~ -3 Microbiology Past 72 Hours 06/03/18 21:45 Urine Catheter - Catheter Urine Culture - Preliminary Culture exhibits no growth. 06/03/18 19:30 Sputum, Induced/Lukens Respiratory Culture - Preliminary GNR lactose life insurance specialist 06/01/18 15:35 Mucosa - Nasopharyngeal Respiratory Panel (PCR) - Final Laboratory Results 06/03/18 10:11: POC Glucose 211 H 06/03/18 14:30: POC Glucose 194 H 06/03/18 17:49: POC Glucose 213 H 06/03/18 21:10: POC Glucose 206 H 06/03/18 21:45: Urine Creatinine 169.00 06/03/18 21:45: Urine Color Yellow, Urine Clarity Clear, Urine pH 5.0, Ur Specific [place] 1.025, Urine Protein 30 H, Urine Glucose (UA) Normal, Urine Ketones 5 H, Urine Occult Blood Negative, Urine Nitrite Negative, Urine Bilirubin 1 H, Urine Urobilinogen 1 H, Ur Leukocyte Esterase 100 H, Urine RBC 0 SEEN, Urine WBC 0-5 SEEN, Ur Squamous Epith Cells 0 SEEN, Urine Bacteria 0 SEEN, Urine Mucus 0 SEEN, Urine Yeast RARE 06/03/18 21:45: Ur Random Sodium 16 06/04/18 01:24: POC Glucose 223 H 06/04/18 04:00: WBC 15.5 H, RBC 3.68 L, Hgb 10.2 L, Hct 31.7 L, MCV 86.1, MCH 27.7, MCHC 32.2, RDW 15.0 H, RDW Differential 46.1 H, Plt Count 331, MPV 10.4, Immature Gran % (Auto) 0.600, Neut % (Auto) 92.6 H, Lymph % (Auto) 3.9 L, [place] % (Auto) 2.8, Eos % (Auto) 0.0, Baso % (Auto) 0.1, Absolute Neuts (auto) 14.4 H, Absolute Lymphs (auto) 0.60 L, Total Counted Not Reportable, Differential Comment 06/04/18 04:00: Sodium 134 L, Potassium 4.9, Chloride 102, Carbon Dioxide 22.0, Anion Gap 10, BUN 65 H, Creatinine 3.06 H, Estim Creat Clear Calc 13.95, Est GFR (MDRD) Af Amer 19 L, Est GFR (MDRD) Non-Af 16 L, BUN/Creatinine Ratio 21.2 H, Glucose 231 H, Calcium 7.7 L 06/04/18 05:07: POC Glucose 230 H Diagnostic Data Chest X-Ray 06/02/18 18:42 IMPRESSION: Stable cardiomegaly, lines and tubes as above Stable mild scattered bilateral pulmonary opacities Electronically Signed: Perry Velasco, at 21:01 EDT Tel , Service support , Current Medications Albuterol Sulfate (Ventolin Aerosols) 2.5 mg INHALATION Q2H PRN PRN PRN Reason: SHORTNESS OF BREATH Albuterol/Ipratropium (Duoneb) 3 ml INHALATION Q4HWA.RT [facility] Last Admin: 06/04/18 06:43 Dose: 3 ml Atorvastatin Calcium (Lipitor) 80 mg GT DAILY@2200 [facility] Last Admin: 06/03/18 21:07 Dose: 80 mg Bacitracin (Bacitracin Ointment) 1 applic TOPICAL BID [facility]; Protocol Last Admin: 06/03/18 21:06 Dose: 1 applicatio Chlorhexidine Gluconate () 15 ml PO BID [facility] Last Admin: 06/03/18 21:06 Dose: 15 ml Chlorhexidine Gluconate () 1 each TOPICAL DAILY [facility] Last Admin: 06/03/18 09:32 Dose: 1 each Dextrose (D50w Syringe) 0 gm IV X1 PRN; Protocol PRN Reason: Hypoglycemia Enoxaparin Sodium (Lovenox) 30 mg SC DAILY@1000 [facility] Last Admin: 06/03/18 10:01 Dose: 30 mg Gabapentin (Neurontin) 100 mg GT BID [facility] Last Admin: 06/03/18 21:07 Dose: 100 mg Glucagon () 1 mg IM .X1 PRN PRN Reason: Hypoglycemia Hydralazine HCl (Apresoline Iv) 10 mg IV Q4H PRN PRN PRN Reason: BLOOD PRESSURE Dopamine HCl/Dextrose () 800 mg in 250 mls @ 10.546 mls/hr CONT INF .[id number] [facility] Last Admin: 06/04/18 07:30 Dose: 10.546 mls/hr Norepinephrine Bitartrate 8 mg (/ Sodium Chloride) 250 mls @ 9.38 mls/hr CONT INF .[id number] [facility] Last Admin: 06/03/18 20:43 Dose: Not Given Fentanyl () 100 mls @ 2.5 mls/hr CONT INF .Q40H [facility] Last Admin: 06/04/18 07:00 Dose: 2.5 mls/hr Meropenem 1 gm/ Sodium (Chloride) 120 mls @ 33 mls/hr IV Q12 [facility] Last Admin: 06/03/18 21:06 Dose: 33 mls/hr Sodium Chloride () 250 mls @ 15 mls/hr IV .[id number] PRN PRN Reason: SALINE FLUSH Propofol (Diprivan) 1,000 mg in 100 mls @ 6.749 mls/hr CONT INF .Q12H [facility]; Protocol Last Admin: 06/04/18 08:03 Dose: 6.749 mls/hr Enteral Nutritional Formula (Vital Af 1.2 Dar Liquid) 1,000 mls @ 65 mls/hr GT .[id number] [facility] Last Admin: 06/04/18 01:10 Dose: Not Given Insulin Glargine (Lantus (Bkc)) 15 units SC QHS [facility] Insulin Human Lispro (Humalog Kwikpen (Bkc)) 0 unit SC Q4 [facility]; Protocol Last Admin: 06/04/18 05:08 Dose: 6 u Lansoprazole (Prevacid) 30 mg GT DAILY [facility] Last Admin: 06/03/18 10:18 Dose: 30 mg Magnesium Hydroxide (Milk Of Magnesia) 30 ml PO DAILY PRN PRN PRN Reason: Constipation Methylprednisolone (Solu-Medrol) 40 mg IV Q8 [facility] Last Admin: 06/04/18 05:08 Dose: 40 mg Ondansetron HCl (Zofran) 4 mg IV Q6H PRN PRN PRN Reason: NAUSEA/VOMITING Polyethylene Glycol (Miralax) 17 gm GT BID [facility] Last Admin: 06/03/18 21:06 Dose: 17 gm Senna/Docusate Sodium (Senokot-S, Cora-Colace) 2 tablet GT BID [facility] Last Admin: 06/03/18 21:07 Dose: 2 tablet Sodium Chloride () 5 - 15 ml IV UD PRN PRN Reason: SALINE FLUSH Last Admin: 06/03/18 20:28 Dose: 10 ml Sodium Chloride () 10 - 40 ml IV UD PRN PRN Reason: MULTILUMEN/HICMAN CATH FLUSH Last Admin: 06/03/18 03:57 Dose: 20 ml Medical Necessity - Tobacco Use Smoking Status: Former smoker Tobacco Use: Cigarettes Assessment/Plan All Active Problems Respiratory failure with hypoxia (Acute) Acute exacerbation of chronic obstructive pulmonary disease (COPD) (Acute) Bronchospasm (Acute) Viral conjunctivitis (Acute) Allergic conjunctivitis (Acute) Chemosis of conjunctiva (Acute) Bradycardia (Acute) Hypotension (Acute) Decreased responsiveness (Acute) Acute hypoxic respiratory failure (Acute) Acute kidney injury (Acute) Prerenal azotemia (Resolved) 1. Cardiogenic shock due to bradycardia * Was emergently intubated after becoming bradycardic and hypotensive. * currently on dopamine, levophed stopped. * required temporary pacemaker, but this has been discontinued as bradycardia was thought to be medication induced. * HR now in 50s and 60s * cadrdiology and psychosocial rehabilitation counselor on board * All blood pressure meds on hold-carvedilol, amlodipine, Cardizem. Hydrochlorothiazide had been stopped before admission. * Levophed currently weaned off. On dopamine. * Cardiology and psychosocial rehabilitation counselor on board. * 2D echo showed EF of 60%, with stage 2 diastolic dysfunction and normal LV systolic function * 2. Acute hypoxic and hypercapnic respiratory failure due to probable COPD exacerbation * remains intubated and sedated * on breathing treatments and IV solumedrol * psychosocial rehabilitation counselor on board; PEEP had to be increased to [id number] overnight, and her FiO2 is 60% * 3. KURT on CKD * likely pre-renal due to medication induced hypotension and bradycardia * CR up to 3.06 today; FeNa is 0.2, indicating a pre-renal cause of KURT * nephrology consult- psychosocial rehabilitation counselor still prefers to defer nephrology consult for now * kidney and bladder USG pending * * 4. Hypertensive urgency: Resolved. 5. Type 2 diabetes mellitus: Metformin on hold on account of KURT. on Insulin lantus 15IU qhs Insulin sliding scale. Accu-Cheks every 6 hours. 6. GERD: on PPI. 7. Acute viral conjunctivitis: Resolved. 8. Mild hyponatremia: Sodium is 134. Likely due to hypotension. Will monitor with IV fluid administration. 9. Hyperlipidemia: On statin 10. DVT prophylaxis: renal dose of lovenox Code Visit Inpatient E&M: 98898 Subs Hosp L3
--- NOTE | 2018-06-04 09:54 | PCM.PN.CARD ---
Subjectve: The patient remains sedated and mechanically intubated/ventilated. Objective: Vital Signs Temp Pulse Resp BP Pulse Ox 98.4 F 63 16 111/52 L 92 06/04/18 07:00 06/04/18 07:00 06/04/18 07:00 06/04/18 07:00 06/04/18 07:00 Oxygen Flow Rate (L/min) 1 Oxygen Delivery Method Mechanical Ventilator Weight: 259 lb 11.272 oz Body Mass Index (BMI) 43.9 Finger Stick Blood Glucose 155 Intake and Output for Last 24 Hours 06/02/18 06/03/18 06/04/18 23:59 23:59 23:59 Intake Total 1168 / 1168 6999.1 / 6999.1 820.4 / 820.4 Output Total 430 / 430 150 / 150 Balance 1168 / 1168 6569.1 / 6569.1 670.4 / 670.4 General: Obese Lungs: Diminished Fabricio Bases Cardiovascular: Regular Rhythm, Normal S1, Normal S2 Abdomen: Bowel Sounds Present, Soft, Non Tender - =- Extremities: No edema 06/03/18 21:45: Urine Color Yellow, Urine Clarity Clear, Urine pH 5.0, Ur Specific [place] 1.025, Urine Protein 30 H, Urine Glucose (UA) Normal, Urine Ketones 5 H, Urine Occult Blood Negative, Urine Nitrite Negative, Urine Bilirubin 1 H, Urine Urobilinogen 1 H, Ur Leukocyte Esterase 100 H, Urine RBC 0 SEEN, Urine WBC 0-5 SEEN 06/04/18 04:00: WBC 15.5 H, RBC 3.68 L, Hgb 10.2 L, Hct 31.7 L, MCV 86.1, MCH 27.7, MCHC 32.2, RDW 15.0 H, RDW Differential 46.1 H, Plt Count 331, MPV 10.4, Immature Gran % (Auto) 0.600, Neut % (Auto) 92.6 H, Lymph % (Auto) 3.9 L, [place] % (Auto) 2.8, Eos % (Auto) 0.0, Baso % (Auto) 0.1, Absolute Neuts (auto) 14.4 H, Total Counted Not Reportable 06/04/18 04:00: Sodium 134 L, Potassium 4.9, Chloride 102, Carbon Dioxide 22.0, Anion Gap 10, BUN 65 H, Creatinine 3.06 H, Est GFR (MDRD) Af Amer 19 L, Est GFR (MDRD) Non-Af 16 L, BUN/Creatinine Ratio 21.2 H, Glucose 231 H, Calcium 7.7 L Rhythm: Sinus rhythm ECHO: Left ventricle considered normal with an estimated LVEF of 60%; mild MR; mild to moderate TR; estimated RV systolic pressure 44 mmHg; please see official report Medical Necessity - Tobacco Use Smoking Status: Former smoker Tobacco Use: Cigarettes Assessment/Plan 1. Bradycardia/hypotension The patient's temporary transvenous pacemaker was placed on hold approximately 24 hours ago. She appeared to have an underlying rhythm of sinus rhythm with a ventricular rate of approximately 60 bpm. In sinus rhythm her blood pressure appeared to remain stable without significant decline. Thus, at the present time, her temporary transvenous pacemaker will be withdrawn. If she remains stable her venous access sheath will be withdrawn. Her rate and rhythm as well as her blood pressures will be monitored. She will did not need to be monitored going forward as to whether or not at some point in time the future she may need a permanent pacemaker. 2. CAD status post CABG She has undergone evaluation with formal transthoracic echocardiogram during sinus rhythm. Her overall left ventricular size, wall motion, and systolic function was considered normal with an LVEF of 60%. At the present time she will continue risk factor modification care and medical management as deemed appropriate. Her medications can be adjusted as her clinical course progresses. 3. Hyperlipidemia She will continue lipid-lowering therapy as deemed appropriate. 4. Hypertension Her family states that has been difficult to control her hypertension as well. They note that a request was made by her primary care physician for nephrology input. Her blood pressures have improved overall. She remains on IV dopamine therapy. It is being gently weaned. 5. Diabetes mellitus She will continue under the care of internal medicine for this. 6. COPD She apparently has long-standing COPD. She will continue evaluation care by internal medicine. 6. Renal insufficiency Her creatinine level has remained elevated. She has demonstrated some urine output. Her renal function will need to be followed. Comment: The above was discussed and reviewed with Dr. Ferreira. This note was generated with [employer] software. It may contain incorrect words, spelling, and punctuation that were not noted in checking the note before signing.
[2018-06-04] MEDS: Chlorhexidine 15 ML PO ×2 (10:17→21:08)
[2018-06-04] MEDS: Enoxaparin 30 MG/0.3 ML Syringe SC (10:24)
[2018-06-04] MEDS: Polyethylene Glycol 3350 17 GM PACKET GT ×2 (10:24→21:04)
[2018-06-04] MEDS: Gabapentin 100 MG Capsule GT ×2 (10:24→21:04)
[2018-06-04] MEDS: Senna/Docusate Sodium 1 Tablet 2 TABLET GT ×2 (10:26→21:04)
[2018-06-04 11:21] LABS: Bedside Glucose 227 mg/dL (70-110)
--- NOTE | 2018-06-04 12:42 | PCM.CONS.R ---
Problem List (1) Acute kidney injury Status: Acute Consultation - Renal 06/04/18 PCP/ Referring MD: Requesting physician: Dr Ferreira Primary care physician: Levi Laird MD Reason for Consultation:: KURT - History of Present Illness History of Present Illness: The patient is a 72 year old F who was initially admitted to floors with eye redness, facial swelling and fevers. initially thought to be related to adenovirus infection. decompensated in hospital. CKD stage with baseline creatinine around 1.1 as of last year. events include respiratory failure - possibly COPD vs CHF KURT Severe bradycardia requiring temporary pacemaker but now off urine output was low overnight. schmidt was noted to be dysfunctional. good return this am she is currently intubated and sedated - Allergies Allergies: Allergies Penicillins Allergy (Verified 06/01/18 10:05) Hives adhesive tape Adverse Reaction (Verified 06/01/18 10:05) Other - Current Medications Current Medications: Current Medications Albuterol Sulfate (Ventolin Aerosols) 2.5 mg INHALATION Q2H PRN PRN PRN Reason: SHORTNESS OF BREATH Albuterol/Ipratropium (Duoneb) 3 ml INHALATION Q4HWA.RT [facility] Last Admin: 06/04/18 11:05 Dose: 3 ml Atorvastatin Calcium (Lipitor) 80 mg GT DAILY@2200 [facility] Last Admin: 06/03/18 21:07 Dose: 80 mg Bacitracin (Bacitracin Ointment) 1 applic TOPICAL BID [facility]; Protocol Last Admin: 06/03/18 21:06 Dose: 1 applicatio Chlorhexidine Gluconate () 15 ml PO BID [facility] Last Admin: 06/04/18 10:17 Dose: 15 ml Chlorhexidine Gluconate () 1 each TOPICAL DAILY [facility] Last Admin: 06/03/18 09:32 Dose: 1 each Dextrose (D50w Syringe) 0 gm IV X1 PRN; Protocol PRN Reason: Hypoglycemia Enoxaparin Sodium (Lovenox) 30 mg SC DAILY@1000 [facility] Last Admin: 06/04/18 10:24 Dose: 30 mg Gabapentin (Neurontin) 100 mg GT BID [facility] Last Admin: 06/04/18 10:24 Dose: 100 mg Glucagon () 1 mg IM .X1 PRN PRN Reason: Hypoglycemia Hydralazine HCl (Apresoline Iv) 10 mg IV Q4H PRN PRN PRN Reason: BLOOD PRESSURE Dopamine HCl/Dextrose () 800 mg in 250 mls @ 10.546 mls/hr CONT INF .[id number] [facility] Last Admin: 06/04/18 07:30 Dose: 10.546 mls/hr Norepinephrine Bitartrate 8 mg (/ Sodium Chloride) 250 mls @ 9.38 mls/hr CONT INF .[id number] [facility] Last Admin: 06/03/18 20:43 Dose: Not Given Fentanyl () 100 mls @ 2.5 mls/hr CONT INF .Q40H [facility] Last Admin: 06/04/18 07:00 Dose: 2.5 mls/hr Meropenem 1 gm/ Sodium (Chloride) 120 mls @ 33 mls/hr IV Q12 [facility] Last Admin: 06/04/18 10:24 Dose: 33 mls/hr Sodium Chloride () 250 mls @ 15 mls/hr IV .[id number] PRN PRN Reason: SALINE FLUSH Propofol (Diprivan) 1,000 mg in 100 mls @ 6.749 mls/hr CONT INF .Q12H [facility]; Protocol Last Admin: 06/04/18 08:03 Dose: 6.749 mls/hr Enteral Nutritional Formula (Vital Af 1.2 Dar Liquid) 1,000 mls @ 65 mls/hr GT .[id number] [facility] Last Admin: 06/04/18 01:10 Dose: Not Given Insulin Glargine (Lantus (Bkc)) 15 units SC QHS [facility] Insulin Human Lispro (Humalog Kwikpen (Bkc)) 0 unit SC Q4 [facility]; Protocol Last Admin: 06/04/18 10:23 Dose: 6 u Lansoprazole (Prevacid) 30 mg GT DAILY [facility] Last Admin: 06/04/18 10:24 Dose: 30 mg Magnesium Hydroxide (Milk Of Magnesia) 30 ml PO DAILY PRN PRN PRN Reason: Constipation Methylprednisolone (Solu-Medrol) 40 mg IV Q8 [facility] Last Admin: 06/04/18 05:08 Dose: 40 mg Ondansetron HCl (Zofran) 4 mg IV Q6H PRN PRN PRN Reason: NAUSEA/VOMITING Polyethylene Glycol (Miralax) 17 gm GT BID [facility] Last Admin: 06/04/18 10:24 Dose: 17 gm Senna/Docusate Sodium (Senokot-S, Cora-Colace) 2 tablet GT BID [facility] Last Admin: 06/04/18 10:26 Dose: 2 tablet Sodium Chloride () 5 - 15 ml IV UD PRN PRN Reason: SALINE FLUSH Last Admin: 06/03/18 20:28 Dose: 10 ml Sodium Chloride () 10 - 40 ml IV UD PRN PRN Reason: MULTILUMEN/HICMAN CATH FLUSH Last Admin: 06/03/18 03:57 Dose: 20 ml - Past Medical History Past Medical History (Chronic Problems): Chronic Problems HTN (hypertension) (Chronic) Mitral insufficiency (Chronic) Tricuspid insufficiency (Chronic) Pulmonary hypertension (Chronic) Morbid obesity with BMI of 40.0-44.9, adult (Chronic) Sleep-disordered breathing (Chronic) CAD (coronary artery disease) (Chronic) 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 - Social History Smoking Status: Former smoker Alcohol: None Drugs: None - Family History Paternal History Items: - - Denies known paternal cardiac history. Maternal History Items: - - Denies known maternal cardiac history. Review of Systems Constitutional: Reports: Chills, Fever HEENT: Denies: Head Aches, Sinus Congestion, Sinus Drainage Cardiovascular: Denies: Chest Pain, Palpitations Respiratory: Denies: Cough, Shortness of breath at rest, Sputum production Gastrointestinal: Denies: Abdominal Pain, Nausea, Vomiting Genitourinary: Denies: Dysuria Musculoskeletal: Denies: Joint Pain, Joint Tenderness Skin: Denies: Rash, Wounds Neurological: Denies: Numbness, Tingling, Focal weakness Psychiatric: Denies: Anxiety, Depression, Homicidal Ideations, Suicidal Ideations Hematologic/ Lymphatic: Denies: Easy Bruising, Easy Bleeding Comment: as per chart Patient Problems: Active and Suspected Problems Respiratory failure with hypoxia (Acute) Acute exacerbation of chronic obstructive pulmonary disease (COPD) (Acute) Bronchospasm (Acute) Viral conjunctivitis (Acute) Allergic conjunctivitis (Acute) Chemosis of conjunctiva (Acute) Bradycardia (Acute) Hypotension (Acute) Decreased responsiveness (Acute) Acute hypoxic respiratory failure (Acute) - Physical Exam Neck: Supple, No JVD, Negative Carotid Bruits Lungs: Clear to auscultation, Normal air movement Cardiovascular: Regular rate, No murmurs Abdomen: Bowel Sounds Present, Soft, Non Tender Extremities: No edema, Capillary Refill Less than 3 Seconds Skin: No rashes, No breakdown Musculoskeletal: No Tenderness to Palpation of Joints or Extremities Vital Signs Temp Pulse Resp BP Pulse Ox 98.4 F 60 16 111/52 L 91 06/04/18 07:00 06/04/18 11:10 06/04/18 11:10 06/04/18 07:00 06/04/18 11:10 Oxygen Flow Rate (L/min) 1 Oxygen Delivery Method Mechanical Ventilator Weight: 117.8 kg Body Mass Index (BMI) 43.9 Finger Stick Blood Glucose 155 Intake and Output for Last 24 Hours 06/02/18 06/03/18 06/04/18 23:59 23:59 23:59 Intake Total 1168 / 1168 6999.1 / 6999.1 820.4 / 820.4 Output Total 430 / 430 150 / 150 Balance 1168 / 1168 6569.1 / 6569.1 670.4 / 670.4 Microbiology Past 72 Hours 06/03/18 19:30 Gram Stain - Final Sputum, Induced/Lukens Respiratory Culture - 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 06/01/18 15:35 Respiratory Panel (PCR) - Final Mucosa - Nasopharyngeal Laboratory Tests Past 24 Hrs 06/03/18 06/03/18 06/03/18 21:45 21:45 21:45 WBC RBC Hgb Hct MCV MCH MCHC RDW RDW Differential Plt Count MPV Immature Gran % (Auto) Neut % (Auto) Lymph % (Auto) [place] % (Auto) Eos % (Auto) Baso % (Auto) Absolute Neuts (auto) Absolute Lymphs (auto) Total Counted Differential Comment Sodium Potassium Chloride Carbon Dioxide Anion Gap BUN Creatinine Estim Creat Clear Calc Est GFR (MDRD) Af Amer Est GFR (MDRD) Non-Af BUN/Creatinine Ratio Glucose Calcium Urine Color Yellow Urine Clarity Clear Urine pH 5.0 Ur Specific [place] 1.025 Urine Protein 30 H Urine Glucose (UA) Normal Urine Ketones 5 H Urine Occult Blood Negative Urine Nitrite Negative Urine Bilirubin 1 H Urine Urobilinogen 1 H Ur Leukocyte Esterase 100 H Urine RBC 0 SEEN Urine WBC 0-5 SEEN Ur Squamous Epith Cells 0 SEEN Urine Bacteria 0 SEEN Urine Mucus 0 SEEN Urine Yeast RARE Ur Random Sodium 16 Urine Creatinine 169.00 06/04/18 06/04/18 04:00 04:00 WBC 15.5 H RBC 3.68 L Hgb 10.2 L Hct 31.7 L MCV 86.1 MCH 27.7 MCHC 32.2 RDW 15.0 H RDW Differential 46.1 H Plt Count 331 MPV 10.4 Immature Gran % (Auto) 0.600 Neut % (Auto) 92.6 H Lymph % (Auto) 3.9 L [place] % (Auto) 2.8 Eos % (Auto) 0.0 Baso % (Auto) 0.1 Absolute Neuts (auto) 14.4 H Absolute Lymphs (auto) 0.60 L Total Counted Not Reportable Differential Comment Sodium 134 L Potassium 4.9 Chloride 102 Carbon Dioxide 22.0 Anion Gap 10 BUN 65 H Creatinine 3.06 H Estim Creat Clear Calc 13.95 Est GFR (MDRD) Af Amer 19 L Est GFR (MDRD) Non-Af 16 L BUN/Creatinine Ratio 21.2 H Glucose 231 H Calcium 7.7 L Urine Color Urine Clarity Urine pH Ur Specific [place] Urine Protein Urine Glucose (UA) Urine Ketones Urine Occult Blood Urine Nitrite Urine Bilirubin Urine Urobilinogen Ur Leukocyte Esterase Urine RBC Urine WBC Ur Squamous Epith Cells Urine Bacteria Urine Mucus Urine Yeast Ur Random Sodium Urine Creatinine POC Glucose 06/04/18 06/04/18 06/04/18 10:20 05:07 01:24 POC Glucose 227 H 230 H 223 H 06/03/18 06/03/18 06/03/18 21:10 17:49 14:30 POC Glucose 206 H 213 H 194 H Assessment/Plan All Active Problems Respiratory failure with hypoxia (Acute) Acute exacerbation of chronic obstructive pulmonary disease (COPD) (Acute) Bronchospasm (Acute) Viral conjunctivitis (Acute) Allergic conjunctivitis (Acute) Chemosis of conjunctiva (Acute) Bradycardia (Acute) Hypotension (Acute) Decreased responsiveness (Acute) Acute hypoxic respiratory failure (Acute) Acute kidney injury (Acute) Prerenal azotemia (Resolved) KURT CKD stage 3 Baseline creatinine is around 1.1 to 1.3. UA shows some leukocytes but this is a schmidt sample overnight schmidt was noted to be dysfunctional, flushed better this am. urine output is low since 6 am again. 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
--- NOTE | 2018-06-04 12:47 | CON.PCM_ITS ---
Problem List (1) Acute kidney injury Status: Acute Consultation - Renal 06/04/18 PCP/ Referring MD: Requesting physician: Dr Ferreira Primary care physician: Levi Laird MD Reason for Consultation:: KURT - History of Present Illness History of Present Illness: The patient is a 72 year old F who was initially admitted to floors with eye redness, facial swelling and fevers. initially thought to be related to adenovirus infection. decompensated in hospital. CKD stage with baseline creatinine around 1.1 as of last year. events include respiratory failure - possibly COPD vs CHF KURT Severe bradycardia requiring temporary pacemaker but now off urine output was low overnight. schmidt was noted to be dysfunctional. good return this am she is currently intubated and sedated - Allergies Allergies: Allergies Penicillins Allergy (Verified 06/01/18 10:05) Hives adhesive tape Adverse Reaction (Verified 06/01/18 10:05) Other - Current Medications Current Medications: Current Medications Albuterol Sulfate (Ventolin Aerosols) 2.5 mg INHALATION Q2H PRN PRN PRN Reason: SHORTNESS OF BREATH Albuterol/Ipratropium (Duoneb) 3 ml INHALATION Q4HWA.RT [facility] Last Admin: 06/04/18 11:05 Dose: 3 ml Atorvastatin Calcium (Lipitor) 80 mg GT DAILY@2200 [facility] Last Admin: 06/03/18 21:07 Dose: 80 mg Bacitracin (Bacitracin Ointment) 1 applic TOPICAL BID [facility]; Protocol Last Admin: 06/03/18 21:06 Dose: 1 applicatio Chlorhexidine Gluconate () 15 ml PO BID [facility] Last Admin: 06/04/18 10:17 Dose: 15 ml Chlorhexidine Gluconate () 1 each TOPICAL DAILY [facility] Last Admin: 06/03/18 09:32 Dose: 1 each Dextrose (D50w Syringe) 0 gm IV X1 PRN; Protocol PRN Reason: Hypoglycemia Enoxaparin Sodium (Lovenox) 30 mg SC DAILY@1000 [facility] Last Admin: 06/04/18 10:24 Dose: 30 mg Gabapentin (Neurontin) 100 mg GT BID [facility] Last Admin: 06/04/18 10:24 Dose: 100 mg Glucagon () 1 mg IM .X1 PRN PRN Reason: Hypoglycemia Hydralazine HCl (Apresoline Iv) 10 mg IV Q4H PRN PRN PRN Reason: BLOOD PRESSURE Dopamine HCl/Dextrose () 800 mg in 250 mls @ 10.546 mls/hr CONT INF .[id number] [facility] Last Admin: 06/04/18 07:30 Dose: 10.546 mls/hr Norepinephrine Bitartrate 8 mg (/ Sodium Chloride) 250 mls @ 9.38 mls/hr CONT INF .[id number] [facility] Last Admin: 06/03/18 20:43 Dose: Not Given Fentanyl () 100 mls @ 2.5 mls/hr CONT INF .Q40H [facility] Last Admin: 06/04/18 07:00 Dose: 2.5 mls/hr Meropenem 1 gm/ Sodium (Chloride) 120 mls @ 33 mls/hr IV Q12 [facility] Last Admin: 06/04/18 10:24 Dose: 33 mls/hr Sodium Chloride () 250 mls @ 15 mls/hr IV .[id number] PRN PRN Reason: SALINE FLUSH Propofol (Diprivan) 1,000 mg in 100 mls @ 6.749 mls/hr CONT INF .Q12H [facility]; Protocol Last Admin: 06/04/18 08:03 Dose: 6.749 mls/hr Enteral Nutritional Formula (Vital Af 1.2 Dar Liquid) 1,000 mls @ 65 mls/hr GT .[id number] [facility] Last Admin: 06/04/18 01:10 Dose: Not Given Insulin Glargine (Lantus (Bkc)) 15 units SC QHS [facility] Insulin Human Lispro (Humalog Kwikpen (Bkc)) 0 unit SC Q4 [facility]; Protocol Last Admin: 06/04/18 10:23 Dose: 6 u Lansoprazole (Prevacid) 30 mg GT DAILY [facility] Last Admin: 06/04/18 10:24 Dose: 30 mg Magnesium Hydroxide (Milk Of Magnesia) 30 ml PO DAILY PRN PRN PRN Reason: Constipation Methylprednisolone (Solu-Medrol) 40 mg IV Q8 [facility] Last Admin: 06/04/18 05:08 Dose: 40 mg Ondansetron HCl (Zofran) 4 mg IV Q6H PRN PRN PRN Reason: NAUSEA/VOMITING Polyethylene Glycol (Miralax) 17 gm GT BID [facility] Last Admin: 06/04/18 10:24 Dose: 17 gm Senna/Docusate Sodium (Senokot-S, Cora-Colace) 2 tablet GT BID [facility] Last Admin: 06/04/18 10:26 Dose: 2 tablet Sodium Chloride () 5 - 15 ml IV UD PRN PRN Reason: SALINE FLUSH Last Admin: 06/03/18 20:28 Dose: 10 ml Sodium Chloride () 10 - 40 ml IV UD PRN PRN Reason: MULTILUMEN/HICMAN CATH FLUSH Last Admin: 06/03/18 03:57 Dose: 20 ml - Past Medical History Past Medical History (Chronic Problems): Chronic Problems HTN (hypertension) (Chronic) Mitral insufficiency (Chronic) Tricuspid insufficiency (Chronic) Pulmonary hypertension (Chronic) Morbid obesity with BMI of 40.0-44.9, adult (Chronic) Sleep-disordered breathing (Chronic) CAD (coronary artery disease) (Chronic) 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 - Social History Smoking Status: Former smoker Alcohol: None Drugs: None - Family History Paternal History Items: - - Denies known paternal cardiac history. Maternal History Items: - - Denies known maternal cardiac history. Review of Systems Constitutional: Reports: Chills, Fever HEENT: Denies: Head Aches, Sinus Congestion, Sinus Drainage Cardiovascular: Denies: Chest Pain, Palpitations Respiratory: Denies: Cough, Shortness of breath at rest, Sputum production Gastrointestinal: Denies: Abdominal Pain, Nausea, Vomiting Genitourinary: Denies: Dysuria Musculoskeletal: Denies: Joint Pain, Joint Tenderness Skin: Denies: Rash, Wounds Neurological: Denies: Numbness, Tingling, Focal weakness Psychiatric: Denies: Anxiety, Depression, Homicidal Ideations, Suicidal Ideations Hematologic/ Lymphatic: Denies: Easy Bruising, Easy Bleeding Comment: as per chart Patient Problems: Active and Suspected Problems Respiratory failure with hypoxia (Acute) Acute exacerbation of chronic obstructive pulmonary disease (COPD) (Acute) Bronchospasm (Acute) Viral conjunctivitis (Acute) Allergic conjunctivitis (Acute) Chemosis of conjunctiva (Acute) Bradycardia (Acute) Hypotension (Acute) Decreased responsiveness (Acute) Acute hypoxic respiratory failure (Acute) - Physical Exam Neck: Supple, No JVD, Negative Carotid Bruits Lungs: Clear to auscultation, Normal air movement Cardiovascular: Regular rate, No murmurs Abdomen: Bowel Sounds Present, Soft, Non Tender Extremities: No edema, Capillary Refill Less than 3 Seconds Skin: No rashes, No breakdown Musculoskeletal: No Tenderness to Palpation of Joints or Extremities Vital Signs Temp Pulse Resp BP Pulse Ox 98.4 F 60 16 111/52 L 91 06/04/18 07:00 06/04/18 11:10 06/04/18 11:10 06/04/18 07:00 06/04/18 11:10 Oxygen Flow Rate (L/min) 1 Oxygen Delivery Method Mechanical Ventilator Weight: 117.8 kg Body Mass Index (BMI) 43.9 Finger Stick Blood Glucose 155 Intake and Output for Last 24 Hours 06/02/18 06/03/18 06/04/18 23:59 23:59 23:59 Intake Total 1168 / 1168 6999.1 / 6999.1 820.4 / 820.4 Output Total 430 / 430 150 / 150 Balance 1168 / 1168 6569.1 / 6569.1 670.4 / 670.4 Microbiology Past 72 Hours 06/03/18 19:30 Gram Stain - Final Sputum, Induced/Lukens Respiratory Culture - 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 06/01/18 15:35 Respiratory Panel (PCR) - Final Mucosa - Nasopharyngeal Laboratory Tests Past 24 Hrs 06/03/18 06/03/18 06/03/18 21:45 21:45 21:45 WBC RBC Hgb Hct MCV MCH MCHC RDW RDW Differential Plt Count MPV Immature Gran % (Auto) Neut % (Auto) Lymph % (Auto) [place] % (Auto) Eos % (Auto) Baso % (Auto) Absolute Neuts (auto) Absolute Lymphs (auto) Total Counted Differential Comment Sodium Potassium Chloride Carbon Dioxide Anion Gap BUN Creatinine Estim Creat Clear Calc Est GFR (MDRD) Af Amer Est GFR (MDRD) Non-Af BUN/Creatinine Ratio Glucose Calcium Urine Color Yellow Urine Clarity Clear Urine pH 5.0 Ur Specific [place] 1.025 Urine Protein 30 H Urine Glucose (UA) Normal Urine Ketones 5 H Urine Occult Blood Negative Urine Nitrite Negative Urine Bilirubin 1 H Urine Urobilinogen 1 H Ur Leukocyte Esterase 100 H Urine RBC 0 SEEN Urine WBC 0-5 SEEN Ur Squamous Epith Cells 0 SEEN Urine Bacteria 0 SEEN Urine Mucus 0 SEEN Urine Yeast RARE Ur Random Sodium 16 Urine Creatinine 169.00 06/04/18 06/04/18 04:00 04:00 WBC 15.5 H RBC 3.68 L Hgb 10.2 L Hct 31.7 L MCV 86.1 MCH 27.7 MCHC 32.2 RDW 15.0 H RDW Differential 46.1 H Plt Count 331 MPV 10.4 Immature Gran % (Auto) 0.600 Neut % (Auto) 92.6 H Lymph % (Auto) 3.9 L [place] % (Auto) 2.8 Eos % (Auto) 0.0 Baso % (Auto) 0.1 Absolute Neuts (auto) 14.4 H Absolute Lymphs (auto) 0.60 L Total Counted Not Reportable Differential Comment Sodium 134 L Potassium 4.9 Chloride 102 Carbon Dioxide 22.0 Anion Gap 10 BUN 65 H Creatinine 3.06 H Estim Creat Clear Calc 13.95 Est GFR (MDRD) Af Amer 19 L Est GFR (MDRD) Non-Af 16 L BUN/Creatinine Ratio 21.2 H Glucose 231 H Calcium 7.7 L Urine Color Urine Clarity Urine pH Ur Specific [place] Urine Protein Urine Glucose (UA) Urine Ketones Urine Occult Blood Urine Nitrite Urine Bilirubin Urine Urobilinogen Ur Leukocyte Esterase Urine RBC Urine WBC Ur Squamous Epith Cells Urine Bacteria Urine Mucus Urine Yeast Ur Random Sodium Urine Creatinine POC Glucose 06/04/18 06/04/18 06/04/18 10:20 05:07 01:24 POC Glucose 227 H 230 H 223 H 06/03/18 06/03/18 06/03/18 21:10 17:49 14:30 POC Glucose 206 H 213 H 194 H Assessment/Plan All Active Problems Respiratory failure with hypoxia (Acute) Acute exacerbation of chronic obstructive pulmonary disease (COPD) (Acute) Bronchospasm (Acute) Viral conjunctivitis (Acute) Allergic conjunctivitis (Acute) Chemosis of conjunctiva (Acute) Bradycardia (Acute) Hypotension (Acute) Decreased responsiveness (Acute) Acute hypoxic respiratory failure (Acute) Acute kidney injury (Acute) Prerenal azotemia (Resolved) KURT CKD stage 3 Baseline creatinine is around 1.1 to 1.3. UA shows some leukocytes but this is a schmidt sample overnight schmidt was noted to be dysfunctional, flushed better this am. urine output is low since 6 am again. 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
[2018-06-04] MEDS: BACITRACIN 15 GM Tube 1 APPLIC TOPICAL ×2 (16:04→21:03)
[2018-06-04] MEDS: CHLORHEXIDINE GLUC 2% CLOTH 1 EACH TOWELETTE TOPICAL (16:05)
[2018-06-04 16:20] LABS: Bedside Glucose 182 mg/dL (70-110)
[2018-06-04] MEDS: Magnesium Citrate 300 ML 150 ML PO (18:39)
[2018-06-04 18:46] LABS: Bedside Glucose 173 mg/dL (70-110)
[2018-06-04] MEDS: Atorvastatin Calcium 80 MG Tablet GT (21:07)
[2018-06-04 21:10] LABS: Bedside Glucose 159 mg/dL (70-110)
[2018-06-05] VITALS (39 sets, daily range): BP systolic 97–143; BP diastolic 42–94; PULSE 58–82; RESP 14–22; TEMP 35.6–37; O2SAT 88–97
[2018-06-05] MEDS: Insulin Lispro 100 UNIT/ML INSULN.PEN SC ×6 (01:11→21:13)
[2018-06-05 01:36] LABS: Bedside Glucose 166 mg/dL (70-110)
[2018-06-05 04:36] LABS: Absolute Neutrophil Count 12.1 X10^3/uL (2.0-7.7); Basophil# 0.01 X10^3/uL; Basophil% 0.1 % (0-1); Hematocrit 31.9 % (37-47); Lymphocyte % 5.2 % (19-41); Mean Corp Hgb Conc 31.3 g/gl (32-36); Mean Corpuscular Hgb 27.5 pg (27.0-32.0); Mean Corpuscular Volume 87.6 fL (81-99); Mean Platelet Vol. 10.3 fl (6.2-12.0); Monocyte# 0.46 X10^3/uL; Monocyte% 3.4 % (0-10); Neutrophil # 12.07 X10^3/uL (2.7-7.7); Neutrophil % 90.4 % (47-70); Platelet Count 338 K/mm3 (150-450); RBC Distribution Width CV 15.5 % (11.6-14.6); RBC Distribution Width SD 50.4 fl (35.1-43.9); Red Blood Count 3.64 M/mm3 (4.2-5.4); White Blood Count 13.4 K/mm3 (4.4-11.0)
[2018-06-05 04:40] LABS: POSITIVE COUNT NO; POSITIVE DIFFERENTIAL NO; POSITIVE MORPHOLOGY NO
[2018-06-05 04:49] LABS: Anion Gap 11 (5-15); BUN 92 mg/dL (7-18); BUN/Creat Ratio 22.5 RATIO (10-20); Calcium,Total 7.5 mg/dL (8.5-10.1); Chloride 100 mmol/L (98-107); Creatinine, Serum 4.08 mg/dL (0.55-1.02); EST Glomerular Filtration Rate 11 mL/min (>60); Est Glom Filt Rate - Afr Amer 14 mL/min (>60); Estimated Creatinine Clearance 10.46 ml/min; Glucose 183 mg/dL (74-106); Potassium 5.1 mmol/L (3.5-5.1); Sodium Level 132 mmol/L (136-145)
[2018-06-05] MEDS: CHLORHEXIDINE GLUC 2% CLOTH 1 EACH TOWELETTE TOPICAL (05:14)
[2018-06-05 05:31] LABS: Bedside Glucose 173 mg/dL (70-110)
[2018-06-05] MEDS: fentaNYL drip 100 ML 2.5 MCG CONT INF ×2 (05:59→17:26)
[2018-06-05] MEDS: Ipratropium/Albuterol Sulfate 3 ML AMPUL.NEB INHALATION ×4 (06:43→18:40)
[2018-06-05] MEDS: Vital AF 1.2 Cal Liquid 1,000 ML 65 ML GT (06:54)
--- NOTE | 2018-06-05 06:58 | NURSING ---
Vital AF tube feed restarted at 10 mL/hr at this time.
--- NOTE | 2018-06-05 07:20 | PCM.PN.INT ---
Subjective: Patient did well yesterday. Patient was able to come off of dopamine and venous sheath was able to be removed. Patient did have a bowel movement overnight, but continues to have issues with tube feed residuals leading to holding of these overnight. PEEP improved significantly to 5 and patient is currently on 50%. General: No apparent distress, - - RASS -1. Good vent synchrony noted. HEENT: Atraumatic, PERRLA, EOMI, Normocephalic, - - No scleral icterus or injection noted. Oral: Moist Mucosa, No Gingival or Mucosal Lesions/ Ulcerations Neck: Supple, No Nodes, Trachea Midline, - - Right IJ is clean, dry and intact. Lungs: No rhonchi, No wheeze, No rales, Diminished, - - Symmetric expansion. No dullness to percussion. Cardiovascular: Regular rate, Regular Rhythm, Normal S1, Normal S2, No murmurs, No rub noted, No Gallop Abdomen: Bowel Sounds Present, Soft, Non Tender, Distended, Obese Extremities: No cyanosis, Capillary Refill Less than 3 Seconds, Edema Skin: - - No significant change compared to previous Musculoskeletal: No Tenderness to Palpation of Joints or Extremities, No Muscle Wasting Lymphatic: No Cervical, Supraclavicular, or Inguinal Adenopathy Neurological: Cranial nerves II-XII grossly intact, Neuro grossly intact, Motor Exam 5/5 strength throughout Psych/Mental Status: Flat Affect Vital Signs Temp Pulse Resp BP Pulse Ox 35.6 C L 63 22 H 123/54 H 91 06/05/18 07:00 06/05/18 07:00 06/05/18 07:00 06/05/18 07:00 06/05/18 07:00 Oxygen Flow Rate (L/min) 1 Oxygen Delivery Method Mechanical Ventilator Weight: 121 kg Body Mass Index (BMI) 43.9 Finger Stick Blood Glucose 155 Intake and Output for Last 24 Hours 06/03/18 06/04/18 06/05/18 23:59 23:59 23:59 Intake Total 6999.1 / 6999.1 2262.1 / 2262.1 196 / 196 Output Total 430 / 430 580 / 580 125 / 125 Balance 6569.1 / 6569.1 1682.1 / 1682.1 71 / 71 Labs (Last 48 Hours) 06/03/18 06/03/18 06/03/18 10:11 14:30 17:49 WBC RBC Hgb Hct MCV MCH MCHC RDW RDW Differential Plt Count MPV Immature Gran % (Auto) Neut % (Auto) Lymph % (Auto) [place] % (Auto) Eos % (Auto) Baso % (Auto) Absolute Neuts (auto) Absolute Lymphs (auto) Total Counted Differential Comment Sodium Potassium Chloride Carbon Dioxide Anion Gap BUN Creatinine Estim Creat Clear Calc Est GFR (MDRD) Af Amer Est GFR (MDRD) Non-Af BUN/Creatinine Ratio Glucose Calcium Urine Color Urine Clarity Urine pH Ur Specific [place] Urine Protein Urine Glucose (UA) Urine Ketones Urine Occult Blood Urine Nitrite Urine Bilirubin Urine Urobilinogen Ur Leukocyte Esterase Urine RBC Urine WBC Ur Squamous Epith Cells Urine Bacteria Urine Mucus Urine Yeast Ur Random Sodium Urine Creatinine POC Glucose 211 H 194 H 213 H 06/03/18 06/03/18 06/03/18 21:10 21:45 21:45 WBC RBC Hgb Hct MCV MCH MCHC RDW RDW Differential Plt Count MPV Immature Gran % (Auto) Neut % (Auto) Lymph % (Auto) [place] % (Auto) Eos % (Auto) Baso % (Auto) Absolute Neuts (auto) Absolute Lymphs (auto) Total Counted Differential Comment Sodium Potassium Chloride Carbon Dioxide Anion Gap BUN Creatinine Estim Creat Clear Calc Est GFR (MDRD) Af Amer Est GFR (MDRD) Non-Af BUN/Creatinine Ratio Glucose Calcium Urine Color Yellow Urine Clarity Clear Urine pH 5.0 Ur Specific [place] 1.025 Urine Protein 30 H Urine Glucose (UA) Normal Urine Ketones 5 H Urine Occult Blood Negative Urine Nitrite Negative Urine Bilirubin 1 H Urine Urobilinogen 1 H Ur Leukocyte Esterase 100 H Urine RBC 0 SEEN Urine WBC 0-5 SEEN Ur Squamous Epith Cells 0 SEEN Urine Bacteria 0 SEEN Urine Mucus 0 SEEN Urine Yeast RARE Ur Random Sodium Urine Creatinine 169.00 POC Glucose 206 H 06/03/18 06/04/18 06/04/18 21:45 01:24 04:00 WBC 15.5 H RBC 3.68 L Hgb 10.2 L Hct 31.7 L MCV 86.1 MCH 27.7 MCHC 32.2 RDW 15.0 H RDW Differential 46.1 H Plt Count 331 MPV 10.4 Immature Gran % (Auto) 0.600 Neut % (Auto) 92.6 H Lymph % (Auto) 3.9 L [place] % (Auto) 2.8 Eos % (Auto) 0.0 Baso % (Auto) 0.1 Absolute Neuts (auto) 14.4 H Absolute Lymphs (auto) 0.60 L Total Counted Not Reportable Differential Comment Sodium Potassium Chloride Carbon Dioxide Anion Gap BUN Creatinine Estim Creat Clear Calc Est GFR (MDRD) Af Amer Est GFR (MDRD) Non-Af BUN/Creatinine Ratio Glucose Calcium Urine Color Urine Clarity Urine pH Ur Specific [place] Urine Protein Urine Glucose (UA) Urine Ketones Urine Occult Blood Urine Nitrite Urine Bilirubin Urine Urobilinogen Ur Leukocyte Esterase Urine RBC Urine WBC Ur Squamous Epith Cells Urine Bacteria Urine Mucus Urine Yeast Ur Random Sodium 16 Urine Creatinine POC Glucose 223 H 06/04/18 06/04/18 06/04/18 04:00 05:07 10:20 WBC RBC Hgb Hct MCV MCH MCHC RDW RDW Differential Plt Count MPV Immature Gran % (Auto) Neut % (Auto) Lymph % (Auto) [place] % (Auto) Eos % (Auto) Baso % (Auto) Absolute Neuts (auto) Absolute Lymphs (auto) Total Counted Differential Comment Sodium 134 L Potassium 4.9 Chloride 102 Carbon Dioxide 22.0 Anion Gap 10 BUN 65 H Creatinine 3.06 H Estim Creat Clear Calc 13.95 Est GFR (MDRD) Af Amer 19 L Est GFR (MDRD) Non-Af 16 L BUN/Creatinine Ratio 21.2 H Glucose 231 H Calcium 7.7 L Urine Color Urine Clarity Urine pH Ur Specific [place] Urine Protein Urine Glucose (UA) Urine Ketones Urine Occult Blood Urine Nitrite Urine Bilirubin Urine Urobilinogen Ur Leukocyte Esterase Urine RBC Urine WBC Ur Squamous Epith Cells Urine Bacteria Urine Mucus Urine Yeast Ur Random Sodium Urine Creatinine POC Glucose 230 H 227 H 06/04/18 06/04/18 06/04/18 15:41 18:42 21:01 WBC RBC Hgb Hct MCV MCH MCHC RDW RDW Differential Plt Count MPV Immature Gran % (Auto) Neut % (Auto) Lymph % (Auto) [place] % (Auto) Eos % (Auto) Baso % (Auto) Absolute Neuts (auto) Absolute Lymphs (auto) Total Counted Differential Comment Sodium Potassium Chloride Carbon Dioxide Anion Gap BUN Creatinine Estim Creat Clear Calc Est GFR (MDRD) Af Amer Est GFR (MDRD) Non-Af BUN/Creatinine Ratio Glucose Calcium Urine Color Urine Clarity Urine pH Ur Specific [place] Urine Protein Urine Glucose (UA) Urine Ketones Urine Occult Blood Urine Nitrite Urine Bilirubin Urine Urobilinogen Ur Leukocyte Esterase Urine RBC Urine WBC Ur Squamous Epith Cells Urine Bacteria Urine Mucus Urine Yeast Ur Random Sodium Urine Creatinine POC Glucose 182 H 173 H 159 H 06/05/18 06/05/18 06/05/18 01:09 04:15 04:15 WBC 13.4 H RBC 3.64 L Hgb 10.0 L Hct 31.9 L MCV 87.6 MCH 27.5 MCHC 31.3 L RDW 15.5 H RDW Differential 50.4 H Plt Count 338 MPV 10.3 Immature Gran % (Auto) 0.900 Neut % (Auto) 90.4 H Lymph % (Auto) 5.2 L [place] % (Auto) 3.4 Eos % (Auto) 0.0 Baso % (Auto) 0.1 Absolute Neuts (auto) 12.1 H Absolute Lymphs (auto) 0.70 L Total Counted Not Reportable Differential Comment Sodium 132 L Potassium 5.1 Chloride 100 Carbon Dioxide 21.0 Anion Gap 11 BUN 92 H Creatinine 4.08 H Estim Creat Clear Calc 10.46 Est GFR (MDRD) Af Amer 14 L Est GFR (MDRD) Non-Af 11 L BUN/Creatinine Ratio 22.5 H Glucose 183 H Calcium 7.5 L Urine Color Urine Clarity Urine pH Ur Specific [place] Urine Protein Urine Glucose (UA) Urine Ketones Urine Occult Blood Urine Nitrite Urine Bilirubin Urine Urobilinogen Ur Leukocyte Esterase Urine RBC Urine WBC Ur Squamous Epith Cells Urine Bacteria Urine Mucus Urine Yeast Ur Random Sodium Urine Creatinine POC Glucose 166 H 06/05/18 05:12 WBC RBC Hgb Hct MCV MCH MCHC RDW RDW Differential Plt Count MPV Immature Gran % (Auto) Neut % (Auto) Lymph % (Auto) [place] % (Auto) Eos % (Auto) Baso % (Auto) Absolute Neuts (auto) Absolute Lymphs (auto) Total Counted Differential Comment Sodium Potassium Chloride Carbon Dioxide Anion Gap BUN Creatinine Estim Creat Clear Calc Est GFR (MDRD) Af Amer Est GFR (MDRD) Non-Af BUN/Creatinine Ratio Glucose Calcium Urine Color Urine Clarity Urine pH Ur Specific [place] Urine Protein Urine Glucose (UA) Urine Ketones Urine Occult Blood Urine Nitrite Urine Bilirubin Urine Urobilinogen Ur Leukocyte Esterase Urine RBC Urine WBC Ur Squamous Epith Cells Urine Bacteria Urine Mucus Urine Yeast Ur Random Sodium Urine Creatinine POC Glucose 173 H Microbiology 06/03/18 19:30 Sputum, Induced/Lukens Gram Stain - Final 06/03/18 19:30 Sputum, Induced/Lukens Respiratory Culture - Preliminary GNR 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 Clinical Impression(s) from Imaging Studies Renal Ultrasound 06/04/18 08:00 IMPRESSION: Mildly echogenic cortex of the kidneys may be due to medical renal disease. Electronically Signed: Mele Khalil DO at 23:08 EDT Tel [phone], Service support , Medical Necessity - Tobacco Use Smoking Status: Former smoker Tobacco Use: Cigarettes Assessment/Plan All Active Problems Respiratory failure with hypoxia (Acute) Acute exacerbation of chronic obstructive pulmonary disease (COPD) (Acute) Bronchospasm (Acute) Viral conjunctivitis (Acute) Allergic conjunctivitis (Acute) Chemosis of conjunctiva (Acute) Bradycardia (Acute) Hypotension (Acute) Decreased responsiveness (Acute) Acute hypoxic respiratory failure (Acute) Acute kidney injury (Acute) Prerenal azotemia (Resolved) RECOMMENDATIONS: 1. Await nephrology recommendations 2. Wean FiO2 as tolerated 3. Increase activity as tolerated with PT 4. Continue with empiric antibiotics until sputum culture is finalized 5. Spontaneous breathing and awakening trials per protocol IMPRESSIONS: 1. Acute respiratory failure secondary to gram-negative pneumonia Patient appears to have a gram-negative growing in the sputum leading to a COPD exacerbation. Patient's oxygenation has improved significantly over the last 24 hours. Leukocytosis continues to improve. We will continue on empiric antibiotics until species and sensitivities are completed. Spontaneous breathing and awakening trials per protocol. 2. Cardiogenic shock secondary to bradycardia Unclear etiology at this time. Transvenous pacing has been discontinued along with venous sheath. No pressor therapy has been required for over 24 hours. Blood pressure remains adequate and heart rate is now in the mid 70s. Patient was on extensive beta and calcium channel blockers as an outpatient. Unclear if this is secondary to residual medications given patient's acute kidney injury. Cardiology is currently following. Patient does have an extensive cardiac history. 3. Acute kidney injury on CKD stage III Likely prerenal etiology. BUN and creatinine continue to increase. Patient may have an element of ATN secondary to hypotension related to problems 1 and 2. We will need to discuss with family about hemodialysis or Lasix challenge. Nephrology is following. 4. Diabetes mellitus type 2 Patient currently with elevated glucose. This is likely secondary to steroid therapy. We will continue to monitor closely. Basal insulin increased with good result. Continue with sliding scale insulin. 5. GERD/anxiety/morbid obesity/hyperlipidemia/CAD status post CABG/reported COPD Complicates care, management, recovery and prognosis. Quantification of respiratory function is not available at this time. Will attempt to increase mobility with therapy today. TIME: 40 minutes critical care time spent addressing patient's acute respiratory failure, cardiogenic shock, acute kidney injury, review of all data and collaboration with care team (6:00 AM to 7:30 AM) Code Visit [id number]: [id number] Critical care first hour
--- NOTE | 2018-06-05 09:35 | PCM.PN.CARD ---
Subjectve: The patient's sedation has been decreased. She is more awake and alert. She appears to be responding to verbal interaction. Objective: Vital Signs Temp Pulse Resp BP Pulse Ox 96.1 F L 63 22 H 123/54 H 91 06/05/18 07:00 06/05/18 07:00 06/05/18 07:00 06/05/18 07:00 06/05/18 07:00 Oxygen Flow Rate (L/min) 1 Oxygen Delivery Method Mechanical Ventilator Weight: 266 lb 12.149 oz Body Mass Index (BMI) 43.9 Finger Stick Blood Glucose 155 Intake and Output for Last 24 Hours 06/03/18 06/04/18 06/05/18 23:59 23:59 23:59 Intake Total 6999.1 / 6999.1 2262.1 / 2262.1 196 / 196 Output Total 430 / 430 580 / 580 125 / 125 Balance 6569.1 / 6569.1 1682.1 / 1682.1 71 / 71 General: Awake, Alert HEENT: Atraumatic, Normocephalic Lungs: - - Scattered upper airway sounds Cardiovascular: Regular Rhythm, Normal S1, Normal S2 Extremities: No edema 06/05/18 04:15: WBC 13.4 H, RBC 3.64 L, Hgb 10.0 L, Hct 31.9 L, MCV 87.6, MCH 27.5, MCHC 31.3 L, RDW 15.5 H, RDW Differential 50.4 H, Plt Count 338, MPV 10.3, Immature Gran % (Auto) 0.900, Neut % (Auto) 90.4 H, Lymph % (Auto) 5.2 L, [place] % (Auto) 3.4, Eos % (Auto) 0.0, Baso % (Auto) 0.1, Absolute Neuts (auto) 12.1 H, Total Counted Not Reportable 06/05/18 04:15: Sodium 132 L, Potassium 5.1, Chloride 100, Carbon Dioxide 21.0, Anion Gap 11, BUN 92 H, Creatinine 4.08 H, Est GFR (MDRD) Af Amer 14 L, Est GFR (MDRD) Non-Af 11 L, BUN/Creatinine Ratio 22.5 H, Glucose 183 H, Calcium 7.5 L Rhythm: Sinus rhythm Medical Necessity - Tobacco Use Smoking Status: Former smoker Tobacco Use: Cigarettes Assessment/Plan 1. Bradycardia/hypotension The patient's temporary transvenous pacemaker was removed yesterday. Her IV vasopressor [id number] been discontinued. She has maintained sinus rhythm and adequate blood pressure. She will continue to be followed for any obvious recurrence of bradycardia and/or hypotension. 2. CAD status post CABG She has undergone evaluation with formal transthoracic echocardiogram during sinus rhythm. Her overall left ventricular size, wall motion, and systolic function was considered normal with an LVEF of 60%. At the present time she will continue risk factor modification care and medical management as deemed appropriate. Her medications can be adjusted as her clinical course progresses. 3. Hyperlipidemia She will continue lipid-lowering therapy as deemed appropriate. 4. Hypertension Her family states that has been difficult to control her hypertension as well. Her blood pressures have improved overall. 5. Diabetes mellitus She will continue under the care of internal medicine for this. 6. COPD She apparently has long-standing COPD. She will continue evaluation care by internal medicine. 6. Renal insufficiency Her creatinine level has remained elevated. She has demonstrated some urine output. Comment: The above was discussed and reviewed with the patient's family members and Dr. Ferreira. This note was generated with [employer]ation software. It may contain incorrect words, spelling, and punctuation that were not noted in checking the note before signing.
--- NOTE | 2018-06-05 09:39 | PCM.PN.HOSP ---
Patient Problems: Active and Suspected Problems Respiratory failure with hypoxia (Acute) Acute exacerbation of chronic obstructive pulmonary disease (COPD) (Acute) Bronchospasm (Acute) Viral conjunctivitis (Acute) Allergic conjunctivitis (Acute) Chemosis of conjunctiva (Acute) Bradycardia (Acute) Hypotension (Acute) Decreased responsiveness (Acute) Acute hypoxic respiratory failure (Acute) Subjective: Patient seen and examined. She made some urine yesterday. Per her nurse, there were no active events overnight. She is now off dopamine blood pressure and heart rate of remained well controlled. Transcutaneous pacer is now permanently off. Patient is more alert today and RA SS score is 0. FiO2 is down to 35% and her PEEP is down to 5cmH2O. creatinine is trended up to 4.28 today. Nephrology was consulted yesterday. White cell count is down to 13.4 today. Patient remains on propofol and fentanyl. Attempt to wean propofol and fentanyl off resulted in patient becoming agitated. Vitals/I&O's: Vital Signs Temp Pulse Resp BP Pulse Ox 96.1 F L 63 22 H 123/54 H 91 06/05/18 07:00 06/05/18 07:00 06/05/18 07:00 06/05/18 07:00 06/05/18 07:00 Oxygen Flow Rate (L/min) 1 Oxygen Delivery Method Mechanical Ventilator Weight: 266 lb 12.149 oz Body Mass Index (BMI) 43.9 Finger Stick Blood Glucose 155 Intake and Output for Last 24 Hours 06/03/18 06/04/18 06/05/18 23:59 23:59 23:59 Intake Total 6999.1 / 6999.1 2262.1 / 2262.1 196 / 196 Output Total 430 / 430 580 / 580 125 / 125 Balance 6569.1 / 6569.1 1682.1 / 1682.1 71 / 71 General: - - intubated, sedated, RASS score is 0 HEENT: Atraumatic, PERRLA, EOMI, Normocephalic Oral: Dry Mucosa Neck: Supple, No JVD, Negative Carotid Bruits Lungs: - - decreased breath sounds bibasally, no wheezes or crackles Cardiovascular: Regular rate, Regular Rhythm, Normal S1, Normal S2, No murmurs Abdomen: Bowel Sounds Present, Soft, Non Tender Extremities: No clubbing, No cyanosis, No edema, Capillary Refill Less than 3 Seconds Skin: No rashes, No breakdown Musculoskeletal: No Tenderness to Palpation of Joints or Extremities Lymphatic: No Cervical, Supraclavicular, or Inguinal Adenopathy Neurological: Cranial nerves II-XII grossly intact Psych/Mental Status: - - intubated, sedated. RASS score is ~ -0 Microbiology Past 72 Hours 06/03/18 21:45 Urine Catheter - Catheter Urine Culture - Preliminary Culture exhibits no growth. 06/03/18 19:30 Sputum, Induced/Lukens Gram Stain - Final 06/03/18 19:30 Sputum, Induced/Lukens Respiratory Culture - Preliminary Klebsiella pneumoniae sp pneum Staphylococcus aureus 06/01/18 15:35 Mucosa - Nasopharyngeal Respiratory Panel (PCR) - Final Laboratory Results 06/04/18 10:20: POC Glucose 227 H 06/04/18 15:41: POC Glucose 182 H 06/04/18 18:42: POC Glucose 173 H 06/04/18 21:01: POC Glucose 159 H 06/05/18 01:09: POC Glucose 166 H 06/05/18 04:15: WBC 13.4 H, RBC 3.64 L, Hgb 10.0 L, Hct 31.9 L, MCV 87.6, MCH 27.5, MCHC 31.3 L, RDW 15.5 H, RDW Differential 50.4 H, Plt Count 338, MPV 10.3, Immature Gran % (Auto) 0.900, Neut % (Auto) 90.4 H, Lymph % (Auto) 5.2 L, [place] % (Auto) 3.4, Eos % (Auto) 0.0, Baso % (Auto) 0.1, Absolute Neuts (auto) 12.1 H, Absolute Lymphs (auto) 0.70 L, Total Counted Not Reportable 06/05/18 04:15: Sodium 132 L, Potassium 5.1, Chloride 100, Carbon Dioxide 21.0, Anion Gap 11, BUN 92 H, Creatinine 4.08 H, Estim Creat Clear Calc 10.46, Est GFR (MDRD) Af Amer 14 L, Est GFR (MDRD) Non-Af 11 L, BUN/Creatinine Ratio 22.5 H, Glucose 183 H, Calcium 7.5 L 06/05/18 05:12: POC Glucose 173 H Diagnostic Data Chest X-Ray 06/02/18 18:42 IMPRESSION: Stable cardiomegaly, lines and tubes as above Stable mild scattered bilateral pulmonary opacities Electronically Signed: Perry Velasco, at 21:01 EDT Tel , Service support , Renal Ultrasound 06/04/18 08:00 IMPRESSION: Mildly echogenic cortex of the kidneys may be due to medical renal disease. Electronically Signed: Mele Khalil DO at 23:08 EDT Tel [phone], Service support , Current Medications Albuterol Sulfate (Ventolin Aerosols) 2.5 mg INHALATION Q2H PRN PRN PRN Reason: SHORTNESS OF BREATH Albuterol/Ipratropium (Duoneb) 3 ml INHALATION Q4HWA.RT [facility] Last Admin: 06/05/18 06:43 Dose: 3 ml Atorvastatin Calcium (Lipitor) 80 mg GT DAILY@2200 [facility] Last Admin: 06/04/18 21:07 Dose: 80 mg Bacitracin (Bacitracin Ointment) 1 applic TOPICAL BID [facility]; Protocol Last Admin: 06/04/18 21:03 Dose: 1 applicatio Chlorhexidine Gluconate () 15 ml PO BID [facility] Last Admin: 06/04/18 21:08 Dose: 15 ml Chlorhexidine Gluconate () 1 each TOPICAL DAILY [facility] Last Admin: 06/05/18 05:14 Dose: 1 each Dextrose (D50w Syringe) 0 gm IV X1 PRN; Protocol PRN Reason: Hypoglycemia Enoxaparin Sodium (Lovenox) 30 mg SC DAILY@1000 [facility] Last Admin: 06/04/18 10:24 Dose: 30 mg Gabapentin (Neurontin) 100 mg GT DAILY [facility] Glucagon () 1 mg IM .X1 PRN PRN Reason: Hypoglycemia Hydralazine HCl (Apresoline Iv) 10 mg IV Q4H PRN PRN PRN Reason: BLOOD PRESSURE Fentanyl () 100 mls @ 2.5 mls/hr CONT INF .Q40H [facility] Last Admin: 06/05/18 05:59 Dose: 2.5 mls/hr Sodium Chloride () 250 mls @ 15 mls/hr IV .[id number] PRN PRN Reason: SALINE FLUSH Propofol (Diprivan) 1,000 mg in 100 mls @ 6.749 mls/hr CONT INF .Q12H [facility]; Protocol Last Admin: 06/04/18 22:49 Dose: 6.749 mls/hr Enteral Nutritional Formula (Vital Af 1.2 Juli Liquid) 1,000 mls @ 65 mls/hr GT .[id number] [facility] Last Admin: 06/05/18 08:10 Dose: Not Given Ampicillin Sodium/Sulbactam (Sodium 3 gm/ Sodium Chloride) 112 mls @ 150 mls/hr IV Q24 [facility] Insulin Glargine (Lantus (Bkc)) 15 units SC QHS [facility] Last Admin: 06/04/18 21:03 Dose: 15 units Insulin Human Lispro (Humalog Kwikpen (Bkc)) 0 unit SC Q4 [facility]; Protocol Last Admin: 06/05/18 05:13 Dose: 3 u Lansoprazole (Prevacid) 30 mg GT DAILY [facility] Last Admin: 06/04/18 10:24 Dose: 30 mg Methylprednisolone (Solu-Medrol) 40 mg IV Q8 [facility] Last Admin: 06/05/18 05:12 Dose: 40 mg Ondansetron HCl (Zofran) 4 mg IV Q6H PRN PRN PRN Reason: NAUSEA/VOMITING Sodium Chloride () 5 - 15 ml IV UD PRN PRN Reason: SALINE FLUSH Last Admin: 06/03/18 20:28 Dose: 10 ml Sodium Chloride () 10 - 40 ml IV UD PRN PRN Reason: MULTILUMEN/HICMAN CATH FLUSH Last Admin: 06/05/18 05:13 Dose: 20 ml Medical Necessity - Tobacco Use Smoking Status: Former smoker Tobacco Use: Cigarettes Assessment/Plan All Active Problems Respiratory failure with hypoxia (Acute) Acute exacerbation of chronic obstructive pulmonary disease (COPD) (Acute) Bronchospasm (Acute) Viral conjunctivitis (Acute) Allergic conjunctivitis (Acute) Chemosis of conjunctiva (Acute) Bradycardia (Acute) Hypotension (Acute) Decreased responsiveness (Acute) Acute hypoxic respiratory failure (Acute) Acute kidney injury (Acute) Prerenal azotemia (Resolved) 1. Cardiogenic shock due to bradycardia still intubated and sedated bradycardia was likely medication induced, as HR is now stable since medications were stopped. dopamine weaned off; temporary pacemaker discontinued HR has remained in 50s and 60s; BP meds remain on hold cardiology and geriatric nurse on board currently on dopamine, levophed stopped. 2D echo showed EF of 60%, with stage 2 diastolic dysfunction and normal LV systolic function 2. Acute hypoxic and hypercapnic respiratory failure due to probable COPD exacerbation and pneumonia remains intubated and sedated on breathing treatments and IV solumedrol geriatric nurse on board; PEEP decreased to 5cmH2O today, from 10 overnight. FiO2 is now down to 35%. sputum cultured Klebsiella pneumoniae and Staphyloccous aureus wbc is down to 13.4, on IV unasyn 3. Community acquired pneumonia: as under 2. 4. Bracycardia, likely medication induced: as under 1. 5. KURT on CKD likely pre-renal due to medication induced hypotension and bradycardia CR up to 4.08 today; FeNa is 0.2, indicating a pre-renal cause of KURT nephrology consulted yesterday; think it is likely due to ATN from hypotension; no need for INSECT CONTROL AIDE now kidney and bladder USG showed mild echogenic cortex of the kidneys which may be due to medical renal disease 6. Hypertensive urgency: Resolved. 7. Type 2 diabetes mellitus: Metformin on hold on account of KURT. on Insulin lantus 15IU qhs Insulin sliding scale. Accu-Cheks every 6 hours. 8. GERD: on PPI. 9. Acute viral conjunctivitis: Resolved. 10. Mild hyponatremia: Sodium is 132 today. continue hydrating with IVF and monitor. 11. Hyperlipidemia: On statin 12. DVT prophylaxis: renal dose of lovenox GI prophylaxis: on lansoprazole 30mg daily. Nutrition: on tube feeding with Vitral AF 1.2 juli liquid at 65mls/hr Code Visit Inpatient E&M: 17203 [facility] Hosp L3
--- NOTE | 2018-06-05 09:44 | PN_ITS ---
Patient Problems: Active and Suspected Problems Respiratory failure with hypoxia (Acute) Acute exacerbation of chronic obstructive pulmonary disease (COPD) (Acute) Bronchospasm (Acute) Viral conjunctivitis (Acute) Allergic conjunctivitis (Acute) Chemosis of conjunctiva (Acute) Bradycardia (Acute) Hypotension (Acute) Decreased responsiveness (Acute) Acute hypoxic respiratory failure (Acute) Subjective: Patient seen and examined. She made some urine yesterday. Per her nurse, there were no active events overnight. She is now off dopamine blood pressure and heart rate of remained well controlled. Transcutaneous pacer is now permanently off. Patient is more alert today and RA SS score is 0. FiO2 is down to 35% and her PEEP is down to 5cmH2O. creatinine is trended up to 4.28 today. Nephrology was consulted yesterday. White cell count is down to 13.4 today. Patient remains on propofol and fentanyl. Attempt to wean propofol and fentanyl off resulted in patient becoming agitated. Vitals/I&O's: Vital Signs Temp Pulse Resp BP Pulse Ox 96.1 F L 63 22 H 123/54 H 91 06/05/18 07:00 06/05/18 07:00 06/05/18 07:00 06/05/18 07:00 06/05/18 07:00 Oxygen Flow Rate (L/min) 1 Oxygen Delivery Method Mechanical Ventilator Weight: 266 lb 12.149 oz Body Mass Index (BMI) 43.9 Finger Stick Blood Glucose 155 Intake and Output for Last 24 Hours 06/03/18 06/04/18 06/05/18 23:59 23:59 23:59 Intake Total 6999.1 / 6999.1 2262.1 / 2262.1 196 / 196 Output Total 430 / 430 580 / 580 125 / 125 Balance 6569.1 / 6569.1 1682.1 / 1682.1 71 / 71 General: - - intubated, sedated, RASS score is 0 HEENT: Atraumatic, PERRLA, EOMI, Normocephalic Oral: Dry Mucosa Neck: Supple, No JVD, Negative Carotid Bruits Lungs: - - decreased breath sounds bibasally, no wheezes or crackles Cardiovascular: Regular rate, Regular Rhythm, Normal S1, Normal S2, No murmurs Abdomen: Bowel Sounds Present, Soft, Non Tender Extremities: No clubbing, No cyanosis, No edema, Capillary Refill Less than 3 Seconds Skin: No rashes, No breakdown Musculoskeletal: No Tenderness to Palpation of Joints or Extremities Lymphatic: No Cervical, Supraclavicular, or Inguinal Adenopathy Neurological: Cranial nerves II-XII grossly intact Psych/Mental Status: - - intubated, sedated. RASS score is ~ -0 Microbiology Past 72 Hours 06/03/18 21:45 Urine Catheter - Catheter Urine Culture - Preliminary Culture exhibits no growth. 06/03/18 19:30 Sputum, Induced/Lukens Gram Stain - Final 06/03/18 19:30 Sputum, Induced/Lukens Respiratory Culture - Preliminary Klebsiella pneumoniae sp pneum Staphylococcus aureus 06/01/18 15:35 Mucosa - Nasopharyngeal Respiratory Panel (PCR) - Final Laboratory Results 06/04/18 10:20: POC Glucose 227 H 06/04/18 15:41: POC Glucose 182 H 06/04/18 18:42: POC Glucose 173 H 06/04/18 21:01: POC Glucose 159 H 06/05/18 01:09: POC Glucose 166 H 06/05/18 04:15: WBC 13.4 H, RBC 3.64 L, Hgb 10.0 L, Hct 31.9 L, MCV 87.6, MCH 27.5, MCHC 31.3 L, RDW 15.5 H, RDW Differential 50.4 H, Plt Count 338, MPV 10.3, Immature Gran % (Auto) 0.900, Neut % (Auto) 90.4 H, Lymph % (Auto) 5.2 L, [place] % (Auto) 3.4, Eos % (Auto) 0.0, Baso % (Auto) 0.1, Absolute Neuts (auto) 12.1 H, Absolute Lymphs (auto) 0.70 L, Total Counted Not Reportable 06/05/18 04:15: Sodium 132 L, Potassium 5.1, Chloride 100, Carbon Dioxide 21.0, Anion Gap 11, BUN 92 H, Creatinine 4.08 H, Estim Creat Clear Calc 10.46, Est GFR (MDRD) Af Amer 14 L, Est GFR (MDRD) Non-Af 11 L, BUN/Creatinine Ratio 22.5 H, Glucose 183 H, Calcium 7.5 L 06/05/18 05:12: POC Glucose 173 H Diagnostic Data Chest X-Ray 06/02/18 18:42 IMPRESSION: Stable cardiomegaly, lines and tubes as above Stable mild scattered bilateral pulmonary opacities Electronically Signed: Perry Velasco, at 21:01 EDT Tel , Service support , Renal Ultrasound 06/04/18 08:00 IMPRESSION: Mildly echogenic cortex of the kidneys may be due to medical renal disease. Electronically Signed: Mele Khalil DO at 23:08 EDT Tel [phone], Service support , Current Medications Albuterol Sulfate (Ventolin Aerosols) 2.5 mg INHALATION Q2H PRN PRN PRN Reason: SHORTNESS OF BREATH Albuterol/Ipratropium (Duoneb) 3 ml INHALATION Q4HWA.RT [facility] Last Admin: 06/05/18 06:43 Dose: 3 ml Atorvastatin Calcium (Lipitor) 80 mg GT DAILY@2200 [facility] Last Admin: 06/04/18 21:07 Dose: 80 mg Bacitracin (Bacitracin Ointment) 1 applic TOPICAL BID [facility]; Protocol Last Admin: 06/04/18 21:03 Dose: 1 applicatio Chlorhexidine Gluconate () 15 ml PO BID [facility] Last Admin: 06/04/18 21:08 Dose: 15 ml Chlorhexidine Gluconate () 1 each TOPICAL DAILY [facility] Last Admin: 06/05/18 05:14 Dose: 1 each Dextrose (D50w Syringe) 0 gm IV X1 PRN; Protocol PRN Reason: Hypoglycemia Enoxaparin Sodium (Lovenox) 30 mg SC DAILY@1000 [facility] Last Admin: 06/04/18 10:24 Dose: 30 mg Gabapentin (Neurontin) 100 mg GT DAILY [facility] Glucagon () 1 mg IM .X1 PRN PRN Reason: Hypoglycemia Hydralazine HCl (Apresoline Iv) 10 mg IV Q4H PRN PRN PRN Reason: BLOOD PRESSURE Fentanyl () 100 mls @ 2.5 mls/hr CONT INF .Q40H [facility] Last Admin: 06/05/18 05:59 Dose: 2.5 mls/hr Sodium Chloride () 250 mls @ 15 mls/hr IV .[id number] PRN PRN Reason: SALINE FLUSH Propofol (Diprivan) 1,000 mg in 100 mls @ 6.749 mls/hr CONT INF .Q12H [facility]; Protocol Last Admin: 06/04/18 22:49 Dose: 6.749 mls/hr Enteral Nutritional Formula (Vital Af 1.2 Juli Liquid) 1,000 mls @ 65 mls/hr GT .[id number] [facility] Last Admin: 06/05/18 08:10 Dose: Not Given Ampicillin Sodium/Sulbactam (Sodium 3 gm/ Sodium Chloride) 112 mls @ 150 mls/hr IV Q24 [facility] Insulin Glargine (Lantus (Bkc)) 15 units SC QHS [facility] Last Admin: 06/04/18 21:03 Dose: 15 units Insulin Human Lispro (Humalog Kwikpen (Bkc)) 0 unit SC Q4 [facility]; Protocol Last Admin: 06/05/18 05:13 Dose: 3 u Lansoprazole (Prevacid) 30 mg GT DAILY [facility] Last Admin: 06/04/18 10:24 Dose: 30 mg Methylprednisolone (Solu-Medrol) 40 mg IV Q8 [facility] Last Admin: 06/05/18 05:12 Dose: 40 mg Ondansetron HCl (Zofran) 4 mg IV Q6H PRN PRN PRN Reason: NAUSEA/VOMITING Sodium Chloride () 5 - 15 ml IV UD PRN PRN Reason: SALINE FLUSH Last Admin: 06/03/18 20:28 Dose: 10 ml Sodium Chloride () 10 - 40 ml IV UD PRN PRN Reason: MULTILUMEN/HICMAN CATH FLUSH Last Admin: 06/05/18 05:13 Dose: 20 ml Medical Necessity - Tobacco Use Smoking Status: Former smoker Tobacco Use: Cigarettes Assessment/Plan All Active Problems Respiratory failure with hypoxia (Acute) Acute exacerbation of chronic obstructive pulmonary disease (COPD) (Acute) Bronchospasm (Acute) Viral conjunctivitis (Acute) Allergic conjunctivitis (Acute) Chemosis of conjunctiva (Acute) Bradycardia (Acute) Hypotension (Acute) Decreased responsiveness (Acute) Acute hypoxic respiratory failure (Acute) Acute kidney injury (Acute) Prerenal azotemia (Resolved) 1. Cardiogenic shock due to bradycardia * still intubated and sedated * bradycardia was likely medication induced, as HR is now stable since medications were stopped. 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 * 2D echo showed EF of 60%, with stage 2 diastolic dysfunction and normal LV systolic function * 2. Acute hypoxic and hypercapnic respiratory failure due to probable COPD exacerbation and pneumonia * remains intubated and sedated * on breathing treatments and IV solumedrol * vegetable washing machine operator on board; PEEP decreased to 5cmH2O today, from 10 overnight. FiO2 is now down to 35%. * sputum cultured Klebsiella pneumoniae and Staphyloccous aureus * wbc is down to 13.4, * on IV unasyn * 3. Community acquired pneumonia: as under 2. 4. Bracycardia, likely medication induced: as under 1. 5. 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 Hypertensive urgency: Resolved. 7. Type 2 diabetes mellitus: Metformin on hold on account of KURT. on Insulin lantus 15IU qhs Insulin sliding scale. Accu-Cheks every 6 hours. 8. GERD: on PPI. 9. Acute viral conjunctivitis: Resolved. 10. Mild hyponatremia: Sodium is 132 today. continue hydrating with IVF and monitor. 11. Hyperlipidemia: On statin 12. DVT prophylaxis: renal dose of lovenox GI prophylaxis: on lansoprazole 30mg daily. Nutrition: on tube feeding with Vitral AF 1.2 juli liquid at 65mls/hr Code Visit Inpatient E&M: 60428 [facility] Hosp L3
[2018-06-05] MEDS: Chlorhexidine 15 ML PO ×2 (10:07→21:10)
[2018-06-05] MEDS: Enoxaparin 30 MG/0.3 ML Syringe SC (10:07)
[2018-06-05] MEDS: Gabapentin 100 MG Capsule GT (10:08)
[2018-06-05 10:36] LABS: Bedside Glucose 175 mg/dL (70-110)
[2018-06-05] MEDS: Propofol 10MG/Ml 1,000 MG/100 ML Bottle 6.749 MG CONT INF ×3 (10:37→22:48)
[2018-06-05 15:05] LABS: Bedside Glucose 183 mg/dL (70-110)
[2018-06-05] MEDS: Furosemide 100 MG/10 ML Vial 120 MG IV (15:58)
[2018-06-05] MEDS: 0.9% NaCl Peripheral Flush Adult/Peds IV (15:58)
--- NOTE | 2018-06-05 18:12 | PN.RENAL_ITS ---
Patient Problems: Active and Suspected Problems Respiratory failure with hypoxia (Acute) Acute exacerbation of chronic obstructive pulmonary disease (COPD) (Acute) Bronchospasm (Acute) Viral conjunctivitis (Acute) Allergic conjunctivitis (Acute) Chemosis of conjunctiva (Acute) Bradycardia (Acute) Hypotension (Acute) Decreased responsiveness (Acute) Acute hypoxic respiratory failure (Acute) Subjective: Pt remains intubated and sedated. FIO2 40% Hemodynamically stable without pressors Cannot do ROS - Physical Exam General: - - intubated and sedated HEENT: Normocephalic - ET in place, - Neck: Supple, No JVD, Trachea Midline Lungs: No rhonchi, No wheeze, - - equal air entery. CTA Cardiovascular: Regular rate, Regular Rhythm, Normal S1, Normal S2 Abdomen: Soft, Non-Distended Extremities: No clubbing, - - +1 edema of LE Lymphatic: No Cervical, Supraclavicular, or Inguinal Adenopathy Neurological: - - sedated Vital Signs Temp Pulse Resp BP Pulse Ox 97.9 F 73 22 H 127/44 H 91 06/05/18 17:00 06/05/18 17:00 06/05/18 17:00 06/05/18 17:00 06/05/18 17:00 Oxygen Flow Rate (L/min) 1 Oxygen Delivery Method Mechanical Ventilator Weight: 121 kg Body Mass Index (BMI) 43.9 Finger Stick Blood Glucose 155 Intake and Output for Last 24 Hours 06/03/18 06/04/18 06/05/18 23:59 23:59 23:59 Intake Total 6999.1 / 6999.1 2262.1 / 2262.1 592 / 592 Output Total 430 / 430 580 / 580 325 / 325 Balance 6569.1 / 6569.1 1682.1 / 1682.1 267 / 267 Microbiology Past 72 Hours 06/02/18 20:45 Blood Culture - Preliminary Blood Culture (Wb) - Anticubital Left No growth in 48 hours. 06/02/18 20:45 Blood Culture - Preliminary Blood Culture (Wb) - Central Line No growth in 48 hours. 06/03/18 21:45 Urine Culture - Preliminary Urine Catheter - Catheter Culture exhibits no growth. 06/03/18 19:30 Gram Stain - Final Sputum, Induced/Lukens Respiratory Culture - Preliminary Klebsiella pneumoniae sp pneum Staphylococcus aureus Laboratory Tests Past 24 Hrs 06/05/18 06/05/18 04:15 04:15 WBC 13.4 H RBC 3.64 L Hgb 10.0 L Hct 31.9 L MCV 87.6 MCH 27.5 MCHC 31.3 L RDW 15.5 H RDW Differential 50.4 H Plt Count 338 MPV 10.3 Immature Gran % (Auto) 0.900 Neut % (Auto) 90.4 H Lymph % (Auto) 5.2 L [place] % (Auto) 3.4 Eos % (Auto) 0.0 Baso % (Auto) 0.1 Absolute Neuts (auto) 12.1 H Absolute Lymphs (auto) 0.70 L Total Counted Not Reportable Sodium 132 L Potassium 5.1 Chloride 100 Carbon Dioxide 21.0 Anion Gap 11 BUN 92 H Creatinine 4.08 H Estim Creat Clear Calc 10.46 Est GFR (MDRD) Af Amer 14 L Est GFR (MDRD) Non-Af 11 L BUN/Creatinine Ratio 22.5 H Glucose 183 H Calcium 7.5 L POC Glucose 06/05/18 06/05/18 06/05/18 14:58 10:01 05:12 POC Glucose 183 H 175 H 173 H 06/05/18 06/04/18 06/04/18 01:09 21:01 18:42 POC Glucose 166 H 159 H 173 H Medical Necessity - Tobacco Use Smoking Status: Former smoker Tobacco Use: Cigarettes Assessment/Plan All Active Problems Respiratory failure with hypoxia (Acute) Acute exacerbation of chronic obstructive pulmonary disease (COPD) (Acute) Bronchospasm (Acute) Viral conjunctivitis (Acute) Allergic conjunctivitis (Acute) Chemosis of conjunctiva (Acute) Bradycardia (Acute) Hypotension (Acute) Decreased responsiveness (Acute) Acute hypoxic respiratory failure (Acute) Acute kidney injury (Acute) Prerenal azotemia (Resolved) 1- KURT on CKD stage 3. Baseline Cr 1.1-1.3 mg/dl UA showed 30 protein. No RBC. No WBC KURT is most ATN from sepsis. I doubt another KURT etiology for now Cr is rising. Cr is up to 4.0 mg/dl. Pt is making some urine. No hyperkalemia. No acidosis.No indication for HD Will give one dose of lasix 120 mg IV Will continue to monitor kidney function and clinical status If kidney function continues to worsen in the coming 24-48 hours. [employer]IN[employer]IAN is indicated. Discussed the later issue with patient's family 2- Acute RF from pneumonia/COPD exacerbation. Vent support as per ICU team 3- cardiogenic shock from medications induced bradycardia. Resolved. Off pressors Renal team will continue to follow. Please call if any question at [phone] plan of care was d/w with patient's family and with Dr. Jhon Hughes MD
[2018-06-05 19:21] LABS: Bedside Glucose 211 mg/dL (70-110)
[2018-06-05] MEDS: Atorvastatin Calcium 80 MG Tablet GT (21:10)
[2018-06-05 21:25] LABS: Bedside Glucose 191 mg/dL (70-110)
[2018-06-06] VITALS (40 sets, daily range): BP systolic 128–156; BP diastolic 46–78; PULSE 59–85; RESP 16–18; TEMP 36.4–36.8; O2SAT 91–97
[2018-06-06] MEDS: Insulin Lispro 100 UNIT/ML INSULN.PEN SC ×6 (02:04→21:39)
[2018-06-06] MEDS: fentaNYL drip 100 ML 2.5 MCG CONT INF ×3 (02:10→23:25)
[2018-06-06 02:16] LABS: Bedside Glucose 173 mg/dL (70-110)
[2018-06-06 04:18] LABS: Absolute Lymphocyte Count 0.57 X10^3/ul (0.83-4.51); Absolute Neutrophil Count 7.5 X10^3/uL (2.0-7.7); Basophil# 0.01 X10^3/uL; Basophil% 0.1 % (0-1); Hematocrit 29.7 % (37-47); Hemoglobin 9.7 g/dl (12.0-15.0); Lymphocyte # 0.57 X10^3/ul (4.0); Lymphocyte % 6.7 % (19-41); Mean Corp Hgb Conc 32.7 g/gl (32-36); Mean Corpuscular Volume 85.8 fL (81-99); Monocyte# 0.35 X10^3/uL; Monocyte% 4.1 % (0-10); Neutrophil # 7.46 X10^3/uL (2.7-7.7); Neutrophil % 87.1 % (47-70); Platelet Count 344 K/mm3 (150-450); RBC Distribution Width CV 15.5 % (11.6-14.6); RBC Distribution Width SD 48.5 fl (35.1-43.9); Red Blood Count 3.46 M/mm3 (4.2-5.4); White Blood Count 8.6 K/mm3 (4.4-11.0)
[2018-06-06 04:22] LABS: Anion Gap 12 (5-15); BUN 103 mg/dL (7-18); Calcium,Total 7.5 mg/dL (8.5-10.1); Chloride 100 mmol/L (98-107); Creatinine, Serum 3.32 mg/dL (0.55-1.02); EST Glomerular Filtration Rate 15 mL/min (>60); Est Glom Filt Rate - Afr Amer 18 mL/min (>60); Estimated Creatinine Clearance 12.86 ml/min; Glucose 203 mg/dL (74-106); Potassium 4.7 mmol/L (3.5-5.1); Sodium Level 134 mmol/L (136-145)
[2018-06-06 04:32] LABS: Differential Indicated SCAN CRITERIA MET; POSITIVE COUNT YES; POSITIVE DIFFERENTIAL YES; POSITIVE MORPHOLOGY YES
[2018-06-06] MEDS: CHLORHEXIDINE GLUC 2% CLOTH 1 EACH TOWELETTE TOPICAL (05:42)
[2018-06-06] MEDS: Propofol 10MG/Ml 1,000 MG/100 ML Bottle 6.749 MG CONT INF ×4 (05:45→21:21)
[2018-06-06 05:46] LABS: Bedside Glucose 224 mg/dL (70-110)
[2018-06-06] MEDS: Ipratropium/Albuterol Sulfate 3 ML AMPUL.NEB INHALATION ×4 (06:36→18:47)
--- NOTE | 2018-06-06 08:04 | PN_ITS ---
Subjective: Patient did well overnight. No hemodynamic instability or significant bradycardia was noted. Patient did have significant urine output with over 1400 cc of urine reported over the last 24 hours. Patient did receive a dose of Lasix yesterday. Patient did qualify for spontaneous awakening and breathing trial this morning, but became very agitated and had to be placed back on sedation quickly. General: - - Intubated and sedated. RASS -1. Morbidly obese. HEENT: Atraumatic, PERRLA, EOMI, Normocephalic, - - No scleral icterus or injection noted. Oral: Moist Mucosa, No Gingival or Mucosal Lesions/ Ulcerations Neck: Supple, No JVD, No Nodes, Trachea Midline Lungs: No wheeze, No rales, Diminished, Rhonchi, - - Symmetric expansion. Cardiovascular: Regular rate, Regular Rhythm, Normal S1, Normal S2, No murmurs, No rub noted, No Gallop, - - Normal sinus rhythm noted on telemetry Abdomen: Bowel Sounds Present, Soft, Non Tender, Non-Distended, Obese Extremities: No clubbing, No cyanosis, Edema Skin: - - No significant change compared to previous Musculoskeletal: No Tenderness to Palpation of Joints or Extremities Lymphatic: No Cervical, Supraclavicular, or Inguinal Adenopathy Neurological: Cranial nerves II-XII grossly intact, Neuro grossly intact Psych/Mental Status: Flat Affect, Impulsive Vital Signs Temp Pulse Resp BP Pulse Ox 36.5 C L 61 16 130/48 H 92 06/06/18 07:00 06/06/18 07:00 06/06/18 07:00 06/06/18 07:00 06/06/18 07:00 Oxygen Flow Rate (L/min) 1 Oxygen Delivery Method Mechanical Ventilator Weight: 125.5 kg Body Mass Index (BMI) 43.9 Finger Stick Blood Glucose 155 Intake and Output for Last 24 Hours 06/04/18 06/05/18 06/06/18 23:59 23:59 23:59 Intake Total 2262.1 / 2262.1 1528.7 / 1528.7 681.5 / 681.5 Output Total 580 / 580 1450 / 1450 550 / 550 Balance 1682.1 / 1682.1 78.7 / 78.7 131.5 / 131.5 Labs (Last 48 Hours) 06/04/18 06/04/18 06/04/18 10:20 15:41 18:42 WBC RBC Hgb Hct MCV MCH MCHC RDW RDW Differential Plt Count MPV Immature Gran % (Auto) Neut % (Auto) Lymph % (Auto) [place] % (Auto) Eos % (Auto) Baso % (Auto) Absolute Neuts (auto) Absolute Lymphs (auto) Total Counted Differential Comment Diff Path Review Sodium Potassium Chloride Carbon Dioxide Anion Gap BUN Creatinine Estim Creat Clear Calc Est GFR (MDRD) Af Amer Est GFR (MDRD) Non-Af BUN/Creatinine Ratio Glucose Calcium POC Glucose 227 H 182 H 173 H 06/04/18 06/05/18 06/05/18 21:01 01:09 04:15 WBC 13.4 H RBC 3.64 L Hgb 10.0 L Hct 31.9 L MCV 87.6 MCH 27.5 MCHC 31.3 L RDW 15.5 H RDW Differential 50.4 H Plt Count 338 MPV 10.3 Immature Gran % (Auto) 0.900 Neut % (Auto) 90.4 H Lymph % (Auto) 5.2 L [place] % (Auto) 3.4 Eos % (Auto) 0.0 Baso % (Auto) 0.1 Absolute Neuts (auto) 12.1 H Absolute Lymphs (auto) 0.70 L Total Counted Not Reportable Differential Comment Diff Path Review Sodium Potassium Chloride Carbon Dioxide Anion Gap BUN Creatinine Estim Creat Clear Calc Est GFR (MDRD) Af Amer Est GFR (MDRD) Non-Af BUN/Creatinine Ratio Glucose Calcium POC Glucose 159 H 166 H 06/05/18 06/05/18 06/05/18 04:15 05:12 10:01 WBC RBC Hgb Hct MCV MCH MCHC RDW RDW Differential Plt Count MPV Immature Gran % (Auto) Neut % (Auto) Lymph % (Auto) [place] % (Auto) Eos % (Auto) Baso % (Auto) Absolute Neuts (auto) Absolute Lymphs (auto) Total Counted Differential Comment Diff Path Review Sodium 132 L Potassium 5.1 Chloride 100 Carbon Dioxide 21.0 Anion Gap 11 BUN 92 H Creatinine 4.08 H Estim Creat Clear Calc 10.46 Est GFR (MDRD) Af Amer 14 L Est GFR (MDRD) Non-Af 11 L BUN/Creatinine Ratio 22.5 H Glucose 183 H Calcium 7.5 L POC Glucose 173 H 175 H 06/05/18 06/05/18 06/05/18 14:58 19:03 21:12 WBC RBC Hgb Hct MCV MCH MCHC RDW RDW Differential Plt Count MPV Immature Gran % (Auto) Neut % (Auto) Lymph % (Auto) [place] % (Auto) Eos % (Auto) Baso % (Auto) Absolute Neuts (auto) Absolute Lymphs (auto) Total Counted Differential Comment Diff Path Review Sodium Potassium Chloride Carbon Dioxide Anion Gap BUN Creatinine Estim Creat Clear Calc Est GFR (MDRD) Af Amer Est GFR (MDRD) Non-Af BUN/Creatinine Ratio Glucose Calcium POC Glucose 183 H 211 H 191 H 06/06/18 06/06/18 06/06/18 02:03 03:45 03:45 WBC 8.6 RBC 3.46 L Hgb 9.7 L Hct 29.7 L MCV 85.8 MCH 28.0 MCHC 32.7 RDW 15.5 H RDW Differential 48.5 H Plt Count 344 MPV 10.0 Immature Gran % (Auto) 2.000 H Neut % (Auto) 87.1 H Lymph % (Auto) 6.7 L [place] % (Auto) 4.1 Eos % (Auto) 0.0 Baso % (Auto) 0.1 Absolute Neuts (auto) 7.5 Absolute Lymphs (auto) 0.57 L Total Counted Not Reportable Differential Comment Diff Path Review May foll Sodium 134 L Potassium 4.7 Chloride 100 Carbon Dioxide 22.0 Anion Gap 12 BUN 103 H* Creatinine 3.32 H Estim Creat Clear Calc 12.86 Est GFR (MDRD) Af Amer 18 L Est GFR (MDRD) Non-Af 15 L BUN/Creatinine Ratio 31.0 H Glucose 203 H Calcium 7.5 L POC Glucose 173 H 06/06/18 05:40 WBC RBC Hgb Hct MCV MCH MCHC RDW RDW Differential Plt Count MPV Immature Gran % (Auto) Neut % (Auto) Lymph % (Auto) [place] % (Auto) Eos % (Auto) Baso % (Auto) Absolute Neuts (auto) Absolute Lymphs (auto) Total Counted Differential Comment Diff Path Review Sodium Potassium Chloride Carbon Dioxide Anion Gap BUN Creatinine Estim Creat Clear Calc Est GFR (MDRD) Af Amer Est GFR (MDRD) Non-Af BUN/Creatinine Ratio Glucose Calcium POC Glucose 224 H Microbiology 06/03/18 19:30 Sputum, Induced/Lukens Gram Stain - Final 06/03/18 19:30 Sputum, Induced/Lukens Respiratory Culture - Final Klebsiella pneumoniae sp pneum Staphylococcus aureus 06/02/18 20:45 Blood Culture (Wb) - Anticubital Left Blood Culture - Preliminary No growth in 48 hours. 06/02/18 20:45 Blood Culture (Wb) - Central Line Blood Culture - Preliminary No growth in 48 hours. 06/03/18 21:45 Urine Catheter - Catheter Urine Culture - Preliminary Culture exhibits no growth. Medical Necessity - Tobacco Use Smoking Status: Former smoker Tobacco Use: Cigarettes Assessment/Plan All Active Problems Respiratory failure with hypoxia (Acute) Acute exacerbation of chronic obstructive pulmonary disease (COPD) (Acute) Bronchospasm (Acute) Viral conjunctivitis (Acute) Allergic conjunctivitis (Acute) Chemosis of conjunctiva (Acute) Bradycardia (Acute) Hypotension (Acute) Decreased responsiveness (Acute) Acute hypoxic respiratory failure (Acute) Acute kidney injury (Acute) Prerenal azotemia (Resolved) RECOMMENDATIONS: 1. Continue to monitor renal function 2. Wean FiO2 as tolerated 3. Increase activity as tolerated with PT 4. Complete 10 days of antibiotics 5. Spontaneous breathing and awakening trials per protocol 6. Possibly transition to Precedex therapy tomorrow 7. Discussed with nephrology about possible scheduling of diuresis IMPRESSIONS: 1. Acute respiratory failure secondary to MSSA and Klebsiella pneumonia Unclear if patient had an element of aspiration related to decreased mental status associated with bradycardia. Patient is responding well to therapy. Patient unable to pass spontaneous breathing trial this morning, but urine output appears to be improved. Patient is over 10 L positive throughout the hospitalization. Will discuss with nephrology if diuretics can be gisela eduled. 2. Cardiogenic shock secondary to bradycardia Unclear etiology at this time. Transvenous pacing has been discontinued along with venous sheath. No pressor therapy has been required for over 24 hours. Blood pressure remains adequate and heart rate is now in the mid 70s. Patient was on extensive beta and calcium channel blockers as an outpatient. Unclear if this is secondary to residual medications given patient's acute kidney injury. Cardiology is currently following. Patient does have an extensive cardiac history. 3. Acute kidney injury on CKD stage III Likely prerenal etiology. BUN and creatinine continue to increase. Patient may have an element of ATN secondary to hypotension related to problems 1 and 2. Nephrology is following. Potentially schedule Lasix therapy. 4. Diabetes mellitus type 2 Patient currently with elevated glucose. This is likely secondary to steroid therapy. We will continue to monitor closely. Basal insulin increased with good result. Continue with sliding scale insulin. 5. GERD/anxiety/morbid obesity/hyperlipidemia/CAD status post CABG/reported COPD Complicates care, management, recovery and prognosis. Quantification of respiratory function is not available at this time. Will attempt to increase mobility with therapy today. TIME: 35 minutes critical care time spent addressing patient's acute respiratory failure, cardiogenic shock, acute kidney injury, review of all data and collaboration with care team (7 AM to 8 AM) Code Visit [id number]: [id number] Critical care first hour
--- NOTE | 2018-06-06 09:34 | PCM.PN.CARD ---
Subjectve: The patient remains sedated and mechanically intubated/ventilated. He is reported as having increased urinary output. Objective: Vital Signs Temp Pulse Resp BP Pulse Ox 97.7 F L 69 16 130/48 H 92 06/06/18 07:00 06/06/18 08:49 06/06/18 08:49 06/06/18 07:00 06/06/18 08:49 Oxygen Flow Rate (L/min) 1 Oxygen Delivery Method Mechanical Ventilator Weight: 276 lb 10.882 oz Body Mass Index (BMI) 43.9 Finger Stick Blood Glucose 155 Intake and Output for Last 24 Hours 06/04/18 06/05/18 06/06/18 23:59 23:59 23:59 Intake Total 2262.1 / 2262.1 1528.7 / 1528.7 681.5 / 681.5 Output Total 580 / 580 1450 / 1450 550 / 550 Balance 1682.1 / 1682.1 78.7 / 78.7 131.5 / 131.5 Lungs: Rhonchi - Scattered Cardiovascular: Regular Rhythm, Normal S1, Normal S2 Abdomen: Bowel Sounds Present, Soft Extremities: Trace RLE Edema, Trace LLE Edema 06/06/18 03:45: WBC 8.6, RBC 3.46 L, Hgb 9.7 L, Hct 29.7 L, MCV 85.8, MCH 28.0, MCHC 32.7, RDW 15.5 H, RDW Differential 48.5 H, Plt Count 344, MPV 10.0, Immature Gran % (Auto) 2.000 H, Neut % (Auto) 87.1 H, Lymph % (Auto) 6.7 L, [place] % (Auto) 4.1, Eos % (Auto) 0.0, Baso % (Auto) 0.1, Absolute Neuts (auto) 7.5, Total Counted Not Reportable 06/06/18 03:45: Sodium 134 L, Potassium 4.7, Chloride 100, Carbon Dioxide 22.0, Anion Gap 12, BUN 103 H*, Creatinine 3.32 H, Est GFR (MDRD) Af Amer 18 L, Est GFR (MDRD) Non-Af 15 L, BUN/Creatinine Ratio 31.0 H, Glucose 203 H, Calcium 7.5 L Rhythm: Sinus rhythm Medical Necessity - Tobacco Use Smoking Status: Former smoker Tobacco Use: Cigarettes Assessment/Plan 1. Bradycardia/hypotension The patient remains without any rate limiting medications, IV vasopressor support, or temporary transvenous pacemaker support. The patient is maintaining a sinus rhythm. Her blood pressures have improved overall. 2. CAD status post CABG She has undergone evaluation with formal transthoracic echocardiogram during sinus rhythm. Her overall left ventricular size, wall motion, and systolic function was considered normal with an LVEF of 60%. At the present time she will continue risk factor modification care and medical management as deemed appropriate. Her medications can be adjusted as her clinical course progresses. 3. Hyperlipidemia She will continue lipid-lowering therapy as deemed appropriate. 4. Hypertension Her family states that has been difficult to control her hypertension as well. Her blood pressures have improved overall. 5. Diabetes mellitus She will continue under the care of internal medicine for this. 6. COPD She apparently has long-standing COPD. She will continue evaluation care by internal medicine and pulmonology/critical care medicine. Hopefully she will be able to be extubated in the near future. 6. Renal insufficiency Her creatinine level has remained elevated. However, it has decreased compared to yesterday. She is noted to have increasing urinary output. She is being followed by nephrology. Comment: The above was discussed and reviewed with the patient's family members and Dr. Ferreira. This note was generated with [employer] dictation software. It may contain incorrect words, spelling, and punctuation that were not noted in checking the note before signing.
--- NOTE | 2018-06-06 10:13 | PN.RENAL_ITS ---
Patient Problems: Active and Suspected Problems Respiratory failure with hypoxia (Acute) Acute exacerbation of chronic obstructive pulmonary disease (COPD) (Acute) Bronchospasm (Acute) Viral conjunctivitis (Acute) Allergic conjunctivitis (Acute) Chemosis of conjunctiva (Acute) Bradycardia (Acute) Hypotension (Acute) Decreased responsiveness (Acute) Acute hypoxic respiratory failure (Acute) Subjective: Patient remains intubated on FiO2 40%. Sedated. Cannot do review of system - Physical Exam General: - - Sedated and intubated HEENT: Atraumatic Neck: Supple, No JVD, - - ET tube in place Lungs: - - Clear to auscultation. No wheezing no crackles. Equal air entry. On vent support Cardiovascular: Regular rate, Regular Rhythm, Normal S1, Normal S2 Abdomen: Bowel Sounds Present, Soft Extremities: No clubbing, No cyanosis, No edema Skin: No rashes Musculoskeletal: No Muscle Wasting Lymphatic: No Cervical, Supraclavicular, or Inguinal Adenopathy Neurological: - Psych/Mental Status: - - Sedated Vital Signs Temp Pulse Resp BP Pulse Ox 97.7 F L 69 16 130/48 H 92 06/06/18 07:00 06/06/18 08:49 06/06/18 08:49 06/06/18 07:00 06/06/18 08:49 Oxygen Flow Rate (L/min) 1 Oxygen Delivery Method Mechanical Ventilator Weight: 125.5 kg Body Mass Index (BMI) 43.9 Finger Stick Blood Glucose 155 Intake and Output for Last 24 Hours 06/04/18 06/05/18 06/06/18 23:59 23:59 23:59 Intake Total 2262.1 / 2262.1 1528.7 / 1528.7 681.5 / 681.5 Output Total 580 / 580 1450 / 1450 550 / 550 Balance 1682.1 / 1682.1 78.7 / 78.7 131.5 / 131.5 Microbiology Past 72 Hours 06/03/18 21:45 Urine Culture - Preliminary Urine Catheter - Catheter Yeast Like Organism 06/03/18 19:30 Gram Stain - Final Sputum, Induced/Lukens Respiratory Culture - Final Klebsiella pneumoniae sp pneum Staphylococcus aureus 06/02/18 20:45 Blood Culture - Preliminary Blood Culture (Wb) - Anticubital Left No growth in 48 hours. 06/02/18 20:45 Blood Culture - Preliminary Blood Culture (Wb) - Central Line No growth in 48 hours. Laboratory Tests Past 24 Hrs 06/06/18 06/06/18 03:45 03:45 WBC 8.6 RBC 3.46 L Hgb 9.7 L Hct 29.7 L MCV 85.8 MCH 28.0 MCHC 32.7 RDW 15.5 H RDW Differential 48.5 H Plt Count 344 MPV 10.0 Immature Gran % (Auto) 2.000 H Neut % (Auto) 87.1 H Lymph % (Auto) 6.7 L [place] % (Auto) 4.1 Eos % (Auto) 0.0 Baso % (Auto) 0.1 Absolute Neuts (auto) 7.5 Absolute Lymphs (auto) 0.57 L Total Counted Not Reportable Differential Comment Diff Path Review May foll Sodium 134 L Potassium 4.7 Chloride 100 Carbon Dioxide 22.0 Anion Gap 12 BUN 103 H* Creatinine 3.32 H Estim Creat Clear Calc 12.86 Est GFR (MDRD) Af Amer 18 L Est GFR (MDRD) Non-Af 15 L BUN/Creatinine Ratio 31.0 H Glucose 203 H Calcium 7.5 L POC Glucose 06/06/18 06/06/18 06/05/18 05:40 02:03 21:12 POC Glucose 224 H 173 H 191 H 06/05/18 06/05/18 06/05/18 19:03 14:58 10:01 POC Glucose 211 H 183 H 175 H Medical Necessity - Tobacco Use Smoking Status: Former smoker Tobacco Use: Cigarettes Assessment/Plan All Active Problems Respiratory failure with hypoxia (Acute) Acute exacerbation of chronic obstructive pulmonary disease (COPD) (Acute) Bronchospasm (Acute) Viral conjunctivitis (Acute) Allergic conjunctivitis (Acute) Chemosis of conjunctiva (Acute) Bradycardia (Acute) Hypotension (Acute) Decreased responsiveness (Acute) Acute hypoxic respiratory failure (Acute) Acute kidney injury (Acute) Prerenal azotemia (Resolved) 1- KURT on CKD stage 3. Baseline Cr 1.1-1.3 mg/dl UA showed 30 protein. No RBC. No WBC UKRT is most ATN from sepsis. I doubt another KURT etiology for now Creatinine is improving. Patient responded well to 1 dose of Lasix 120 mg IV. Okay to continue Lasix 40 mg IV daily No hyperkalemia. No acidosis.No indication for HD Keep mean arterial pressure more than 65. Avoid renal toxic like IV contrast and demonstrate Will continue to monitor kidney function and clinical status 2- Acute RF from pneumonia/COPD exacerbation. Vent support as per ICU team 3- cardiogenic shock from medications induced bradycardia. Resolved. Off pressors Renal team will continue to follow. Please call if any question at [phone] plan of care was d/w with Dr. Jhon Hughes MD
[2018-06-06] MEDS: Chlorhexidine 15 ML PO ×2 (10:20→21:38)
[2018-06-06] MEDS: Gabapentin 100 MG Capsule GT (10:20)
[2018-06-06] MEDS: Enoxaparin 30 MG/0.3 ML Syringe SC (10:21)
[2018-06-06] MEDS: Vital AF 1.2 Cal Liquid 1,000 ML 65 ML GT (10:22)
--- NOTE | 2018-06-06 10:23 | PCM.PN.HOSP ---
Patient Problems: Active and Suspected Problems Respiratory failure with hypoxia (Acute) Acute exacerbation of chronic obstructive pulmonary disease (COPD) (Acute) Bronchospasm (Acute) Viral conjunctivitis (Acute) Allergic conjunctivitis (Acute) Chemosis of conjunctiva (Acute) Bradycardia (Acute) Hypotension (Acute) Decreased responsiveness (Acute) Acute hypoxic respiratory failure (Acute) Subjective: Patient seen and examined. She remains intubated and sedated. No active events overnight. She failed a spontaneous breathing trial this morning and got agitated was sedation was being weaned off. Labs and vitals reviewed. Creatinine noted to have trended down to around 3.3. She was given a dose of Lasix yesterday which helped with increasing urine output. Cell count is trended down to 8.6. Vitals/I&O's: Vital Signs Temp Pulse Resp BP Pulse Ox 97.7 F L 69 16 130/48 H 92 06/06/18 07:00 06/06/18 08:49 06/06/18 08:49 06/06/18 07:00 06/06/18 08:49 Oxygen Flow Rate (L/min) 1 Oxygen Delivery Method Mechanical Ventilator Weight: 276 lb 10.882 oz Body Mass Index (BMI) 43.9 Finger Stick Blood Glucose 155 Intake and Output for Last 24 Hours 06/04/18 06/05/18 06/06/18 23:59 23:59 23:59 Intake Total 2262.1 / 2262.1 1528.7 / 1528.7 681.5 / 681.5 Output Total 580 / 580 1450 / 1450 550 / 550 Balance 1682.1 / 1682.1 78.7 / 78.7 131.5 / 131.5 General: - - intubated, sedated, RASS score is +2 HEENT: Atraumatic, PERRLA, EOMI, Normocephalic Oral: Dry Mucosa Neck: Supple, No JVD, Negative Carotid Bruits Lungs: - - decreased breath sounds bibasally, no wheezes or crackles Cardiovascular: Regular rate, Regular Rhythm, Normal S1, Normal S2, No murmurs Abdomen: Bowel Sounds Present, Soft, Non Tender Extremities: No clubbing, No cyanosis, No edema, Capillary Refill Less than 3 Seconds Skin: No rashes, No breakdown Musculoskeletal: No Tenderness to Palpation of Joints or Extremities Lymphatic: No Cervical, Supraclavicular, or Inguinal Adenopathy Neurological: Cranial nerves II-XII grossly intact Psych/Mental Status: - - intubated, sedated. RASS score is ~ +2 Microbiology Past 72 Hours 06/03/18 21:45 Urine Catheter - Catheter Urine Culture - Preliminary Yeast Like Organism 06/03/18 19:30 Sputum, Induced/Lukens Gram Stain - Final 06/03/18 19:30 Sputum, Induced/Lukens Respiratory Culture - Final Klebsiella pneumoniae sp pneum Staphylococcus aureus 06/02/18 20:45 Blood Culture (Wb) - Anticubital Left Blood Culture - Preliminary No growth in 48 hours. 06/02/18 20:45 Blood Culture (Wb) - Central Line Blood Culture - Preliminary No growth in 48 hours. Laboratory Results 06/05/18 10:01: POC Glucose 175 H 06/05/18 14:58: POC Glucose 183 H 06/05/18 19:03: POC Glucose 211 H 06/05/18 21:12: POC Glucose 191 H 06/06/18 02:03: POC Glucose 173 H 06/06/18 03:45: WBC 8.6, RBC 3.46 L, Hgb 9.7 L, Hct 29.7 L, MCV 85.8, MCH 28.0, MCHC 32.7, RDW 15.5 H, RDW Differential 48.5 H, Plt Count 344, MPV 10.0, Immature Gran % (Auto) 2.000 H, Neut % (Auto) 87.1 H, Lymph % (Auto) 6.7 L, [place] % (Auto) 4.1, Eos % (Auto) 0.0, Baso % (Auto) 0.1, Absolute Neuts (auto) 7.5, Absolute Lymphs (auto) 0.57 L, Total Counted Not Reportable, Differential Comment , Diff Path Review July06/06/18 03:45: Sodium 134 L, Potassium 4.7, Chloride 100, Carbon Dioxide 22.0, Anion Gap 12, BUN 103 H*, Creatinine 3.32 H, Estim Creat Clear Calc 12.86, Est GFR (MDRD) Af Amer 18 L, Est GFR (MDRD) Non-Af 15 L, BUN/Creatinine Ratio 31.0 H, Glucose 203 H, Calcium 7.5 L 06/06/18 05:40: POC Glucose 224 H Diagnostic Data Chest X-Ray 06/02/18 18:42 IMPRESSION: Stable cardiomegaly, lines and tubes as above Stable mild scattered bilateral pulmonary opacities Electronically Signed: Perry Velasco, at 21:01 EDT Tel , Service support , Renal Ultrasound 06/04/18 08:00 IMPRESSION: Mildly echogenic cortex of the kidneys may be due to medical renal disease. Electronically Signed: Mele Khalil DO at 23:08 EDT Tel [phone], Service support , Current Medications Albuterol Sulfate (Ventolin Aerosols) 2.5 mg INHALATION Q2H PRN PRN PRN Reason: SHORTNESS OF BREATH Albuterol/Ipratropium (Duoneb) 3 ml INHALATION Q4HWA.RT [facility] Last Admin: 06/06/18 06:36 Dose: 3 ml Atorvastatin Calcium (Lipitor) 80 mg GT DAILY@2200 [facility] Last Admin: 06/05/18 21:10 Dose: 80 mg Chlorhexidine Gluconate () 15 ml PO BID [facility] Last Admin: 06/05/18 21:10 Dose: 15 ml Chlorhexidine Gluconate () 1 each TOPICAL DAILY [facility] Last Admin: 06/06/18 05:42 Dose: 1 each Dextrose (D50w Syringe) 0 gm IV X1 PRN; Protocol PRN Reason: Hypoglycemia Enoxaparin Sodium (Lovenox) 30 mg SC DAILY@1000 [facility] Last Admin: 06/05/18 10:07 Dose: 30 mg Gabapentin (Neurontin) 100 mg GT DAILY [facility] Last Admin: 06/05/18 10:08 Dose: 100 mg Glucagon () 1 mg IM .X1 PRN PRN Reason: Hypoglycemia Hydralazine HCl (Apresoline Iv) 10 mg IV Q4H PRN PRN PRN Reason: BLOOD PRESSURE Fentanyl () 100 mls @ 2.5 mls/hr CONT INF .Q40H [facility] Last Admin: 06/06/18 02:10 Dose: 2.5 mls/hr Sodium Chloride () 250 mls @ 15 mls/hr IV .[id number] PRN PRN Reason: SALINE FLUSH Propofol (Diprivan) 1,000 mg in 100 mls @ 6.749 mls/hr CONT INF .Q12H [facility]; Protocol Last Admin: 06/06/18 05:45 Dose: 6.749 mls/hr Enteral Nutritional Formula (Vital Af 1.2 Juli Liquid) 1,000 mls @ 65 mls/hr GT .[id number] [facility] Last Admin: 06/06/18 01:55 Dose: Not Given Ampicillin Sodium/Sulbactam (Sodium 3 gm/ Sodium Chloride) 112 mls @ 150 mls/hr IV Q12 [facility] Insulin Glargine (Lantus (Bkc)) 15 units SC QHS [facility] Last Admin: 06/05/18 21:13 Dose: 15 units Insulin Human Lispro (Humalog Kwikpen (Bkc)) 0 unit SC Q4 [facility]; Protocol Last Admin: 06/06/18 05:41 Dose: 6 u Lansoprazole (Prevacid) 30 mg GT DAILY [facility] Last Admin: 06/05/18 10:08 Dose: 30 mg Methylprednisolone (Solu-Medrol) 40 mg IV Q8 [facility] Last Admin: 06/06/18 05:41 Dose: 40 mg Ondansetron HCl (Zofran) 4 mg IV Q6H PRN PRN PRN Reason: NAUSEA/VOMITING Sodium Chloride () 5 - 15 ml IV UD PRN PRN Reason: SALINE FLUSH Last Admin: 06/05/18 15:58 Dose: 10 ml Sodium Chloride () 10 - 40 ml IV UD PRN PRN Reason: MULTILUMEN/HICMAN CATH FLUSH Last Admin: 06/06/18 05:41 Dose: 40 ml Medical Necessity - Tobacco Use Smoking Status: Former smoker Tobacco Use: Cigarettes Assessment/Plan All Active Problems Respiratory failure with hypoxia (Acute) Acute exacerbation of chronic obstructive pulmonary disease (COPD) (Acute) Bronchospasm (Acute) Viral conjunctivitis (Acute) Allergic conjunctivitis (Acute) Chemosis of conjunctiva (Acute) Bradycardia (Acute) Hypotension (Acute) Decreased responsiveness (Acute) Acute hypoxic respiratory failure (Acute) Acute kidney injury (Acute) Prerenal azotemia (Resolved) 1. Cardiogenic shock due to bradycardia resolved still intubated and sedated. bradycardia has resolved. off dopamine now cardiology and labor relations manager on board. bradycardia was likely medication induced, as HR is now stable since medications were stopped. 2D echo showed EF of 60%, with stage 2 diastolic dysfunction and normal LV systolic function 2. Acute hypoxic and hypercapnic respiratory failure due to probable COPD exacerbation and pneumonia remains intubated and sedated; failed spontaneous breathing trial today. on breathing treatments and IV solumedrol labor relations manager on board; PEEP 5cmH2O, with FiO2 of ~30% sputum cultured Klebsiella pneumoniae and Staphyloccous aureus wbc is down to 8.6 on IV unasyn 3. Community acquired pneumonia: as under 2. 4. Bracycardia, likely medication induced: as under 1. 5. KURT on CKD likely pre-renal due to medication induced hypotension and bradycardia Cr down to 3.32, from 4.08 yesterday nephrology on board; think it is likely due to ATN from hypotension; no need for GENERAL FORECASTER now received lasix yesterday, and put out 1.45L of urine over last 24 hours. kidney and bladder USG showed mild echogenic cortex of the kidneys which may be due to medical renal disease 6. Hypertensive urgency: Resolved. 7. Type 2 diabetes mellitus: Metformin on hold on account of KURT. on Insulin lantus 15IU qhs Insulin sliding scale. Accu-Cheks every 6 hours. 8. GERD: on PPI. 9. Acute viral conjunctivitis: Resolved. 10. Mild hyponatremia: Sodium is 134 today. continue hydrating with IVF and monitor. 11. Hyperlipidemia: On statin 12. Anemia: Hb is 9.7; baseline is ~ 11. Likely due to current severe illness. Will check iron panel 13. DVT prophylaxis: renal dose of lovenox GI prophylaxis: on lansoprazole 30mg daily. Nutrition: on tube feeding with Vitral AF 1.2 juli liquid at 65mls/hr Code Visit Inpatient E&M: 34429 Subs Hosp L3
[2018-06-06] MEDS: Furosemide 40 MG/4 ML Vial IV (10:30)
--- NOTE | 2018-06-06 10:34 | PN_ITS ---
Patient Problems: Active and Suspected Problems Respiratory failure with hypoxia (Acute) Acute exacerbation of chronic obstructive pulmonary disease (COPD) (Acute) Bronchospasm (Acute) Viral conjunctivitis (Acute) Allergic conjunctivitis (Acute) Chemosis of conjunctiva (Acute) Bradycardia (Acute) Hypotension (Acute) Decreased responsiveness (Acute) Acute hypoxic respiratory failure (Acute) Subjective: Patient seen and examined. She remains intubated and sedated. No active events overnight. She failed a spontaneous breathing trial this morning and got agitated was sedation was being weaned off. Labs and vitals reviewed. Creatinine noted to have trended down to around 3.3. She was given a dose of Lasix yesterday which helped with increasing urine output. Cell count is trended down to 8.6. Vitals/I&O's: Vital Signs Temp Pulse Resp BP Pulse Ox 97.7 F L 69 16 130/48 H 92 06/06/18 07:00 06/06/18 08:49 06/06/18 08:49 06/06/18 07:00 06/06/18 08:49 Oxygen Flow Rate (L/min) 1 Oxygen Delivery Method Mechanical Ventilator Weight: 276 lb 10.882 oz Body Mass Index (BMI) 43.9 Finger Stick Blood Glucose 155 Intake and Output for Last 24 Hours 06/04/18 06/05/18 06/06/18 23:59 23:59 23:59 Intake Total 2262.1 / 2262.1 1528.7 / 1528.7 681.5 / 681.5 Output Total 580 / 580 1450 / 1450 550 / 550 Balance 1682.1 / 1682.1 78.7 / 78.7 131.5 / 131.5 General: - - intubated, sedated, RASS score is +2 HEENT: Atraumatic, PERRLA, EOMI, Normocephalic Oral: Dry Mucosa Neck: Supple, No JVD, Negative Carotid Bruits Lungs: - - decreased breath sounds bibasally, no wheezes or crackles Cardiovascular: Regular rate, Regular Rhythm, Normal S1, Normal S2, No murmurs Abdomen: Bowel Sounds Present, Soft, Non Tender Extremities: No clubbing, No cyanosis, No edema, Capillary Refill Less than 3 Seconds Skin: No rashes, No breakdown Musculoskeletal: No Tenderness to Palpation of Joints or Extremities Lymphatic: No Cervical, Supraclavicular, or Inguinal Adenopathy Neurological: Cranial nerves II-XII grossly intact Psych/Mental Status: - - intubated, sedated. RASS score is ~ +2 Microbiology Past 72 Hours 06/03/18 21:45 Urine Catheter - Catheter Urine Culture - Preliminary Yeast Like Organism 06/03/18 19:30 Sputum, Induced/Lukens Gram Stain - Final 06/03/18 19:30 Sputum, Induced/Lukens Respiratory Culture - Final Klebsiella pneumoniae sp pneum Staphylococcus aureus 06/02/18 20:45 Blood Culture (Wb) - Anticubital Left Blood Culture - Preliminary No growth in 48 hours. 06/02/18 20:45 Blood Culture (Wb) - Central Line Blood Culture - Preliminary No growth in 48 hours. Laboratory Results 06/05/18 10:01: POC Glucose 175 H 06/05/18 14:58: POC Glucose 183 H 06/05/18 19:03: POC Glucose 211 H 06/05/18 21:12: POC Glucose 191 H 06/06/18 02:03: POC Glucose 173 H 06/06/18 03:45: WBC 8.6, RBC 3.46 L, Hgb 9.7 L, Hct 29.7 L, MCV 85.8, MCH 28.0, MCHC 32.7, RDW 15.5 H, RDW Differential 48.5 H, Plt Count 344, MPV 10.0, Immature Gran % (Auto) 2.000 H, Neut % (Auto) 87.1 H, Lymph % (Auto) 6.7 L, [place] % (Auto) 4.1, Eos % (Auto) 0.0, Baso % (Auto) 0.1, Absolute Neuts (auto) 7.5, Absolute Lymphs (auto) 0.57 L, Total Counted Not Reportable, Differential Comment , Diff Path Review July06/06/18 03:45: Sodium 134 L, Potassium 4.7, Chloride 100, Carbon Dioxide 22.0, Anion Gap 12, BUN 103 H*, Creatinine 3.32 H, Estim Creat Clear Calc 12.86, Est GFR (MDRD) Af Amer 18 L, Est GFR (MDRD) Non-Af 15 L, BUN/Creatinine Ratio 31.0 H , Glucose 203 H, Calcium 7.5 L 06/06/18 05:40: POC Glucose 224 H Diagnostic Data Chest X-Ray 06/02/18 18:42 IMPRESSION: Stable cardiomegaly, lines and tubes as above Stable mild scattered bilateral pulmonary opacities Electronically Signed: Perry Velasco, at 21:01 EDT Tel , Service support , Renal Ultrasound 06/04/18 08:00 IMPRESSION: Mildly echogenic cortex of the kidneys may be due to medical renal disease. Electronically Signed: Mele Khalil DO at 23:08 EDT Tel [phone], Service support , Current Medications Albuterol Sulfate (Ventolin Aerosols) 2.5 mg INHALATION Q2H PRN PRN PRN Reason: SHORTNESS OF BREATH Albuterol/Ipratropium (Duoneb) 3 ml INHALATION Q4HWA.RT [facility] Last Admin: 06/06/18 06:36 Dose: 3 ml Atorvastatin Calcium (Lipitor) 80 mg GT DAILY@2200 [facility] Last Admin: 06/05/18 21:10 Dose: 80 mg Chlorhexidine Gluconate () 15 ml PO BID [facility] Last Admin: 06/05/18 21:10 Dose: 15 ml Chlorhexidine Gluconate () 1 each TOPICAL DAILY [facility] Last Admin: 06/06/18 05:42 Dose: 1 each Dextrose (D50w Syringe) 0 gm IV X1 PRN; Protocol PRN Reason: Hypoglycemia Enoxaparin Sodium (Lovenox) 30 mg SC DAILY@1000 [facility] Last Admin: 06/05/18 10:07 Dose: 30 mg Gabapentin (Neurontin) 100 mg GT DAILY [facility] Last Admin: 06/05/18 10:08 Dose: 100 mg Glucagon () 1 mg IM .X1 PRN PRN Reason: Hypoglycemia Hydralazine HCl (Apresoline Iv) 10 mg IV Q4H PRN PRN PRN Reason: BLOOD PRESSURE Fentanyl () 100 mls @ 2.5 mls/hr CONT INF .Q40H [facility] Last Admin: 06/06/18 02:10 Dose: 2.5 mls/hr Sodium Chloride () 250 mls @ 15 mls/hr IV .[id number] PRN PRN Reason: SALINE FLUSH Propofol (Diprivan) 1,000 mg in 100 mls @ 6.749 mls/hr CONT INF .Q12H [facility]; Protocol Last Admin: 06/06/18 05:45 Dose: 6.749 mls/hr Enteral Nutritional Formula (Vital Af 1.2 Juli Liquid) 1,000 mls @ 65 mls/hr GT .[id number] [facility] Last Admin: 06/06/18 01:55 Dose: Not Given Ampicillin Sodium/Sulbactam (Sodium 3 gm/ Sodium Chloride) 112 mls @ 150 mls/hr IV Q12 [facility] Insulin Glargine (Lantus (Bkc)) 15 units SC QHS [facility] Last Admin: 06/05/18 21:13 Dose: 15 units Insulin Human Lispro (Humalog Kwikpen (Bkc)) 0 unit SC Q4 [facility]; Protocol Last Admin: 06/06/18 05:41 Dose: 6 u Lansoprazole (Prevacid) 30 mg GT DAILY [facility] Last Admin: 06/05/18 10:08 Dose: 30 mg Methylprednisolone (Solu-Medrol) 40 mg IV Q8 [facility] Last Admin: 06/06/18 05:41 Dose: 40 mg Ondansetron HCl (Zofran) 4 mg IV Q6H PRN PRN PRN Reason: NAUSEA/VOMITING Sodium Chloride () 5 - 15 ml IV UD PRN PRN Reason: SALINE FLUSH Last Admin: 06/05/18 15:58 Dose: 10 ml Sodium Chloride () 10 - 40 ml IV UD PRN PRN Reason: MULTILUMEN/HICMAN CATH FLUSH Last Admin: 06/06/18 05:41 Dose: 40 ml Medical Necessity - Tobacco Use Smoking Status: Former smoker Tobacco Use: Cigarettes Assessment/Plan All Active Problems Respiratory failure with hypoxia (Acute) Acute exacerbation of chronic obstructive pulmonary disease (COPD) (Acute) Bronchospasm (Acute) Viral conjunctivitis (Acute) Allergic conjunctivitis (Acute) Chemosis of conjunctiva (Acute) Bradycardia (Acute) Hypotension (Acute) Decreased responsiveness (Acute) Acute hypoxic respiratory failure (Acute) Acute kidney injury (Acute) Prerenal azotemia (Resolved) 1. Cardiogenic shock due to bradycardia * resolved * still intubated and sedated. bradycardia has resolved. * off dopamine now * cardiology and circle beveler on board. * bradycardia was likely medication induced, as HR is now stable since medications were stopped. * 2D echo showed EF of 60%, with stage 2 diastolic dysfunction and normal LV sys tolic function * 2. Acute hypoxic and hypercapnic respiratory failure due to probable COPD exacerbation and pneumonia * remains intubated and sedated; failed spontaneous breathing trial today. * on breathing treatments and IV solumedrol * circle beveler on board; PEEP 5cmH2O, with FiO2 of ~30% * sputum cultured Klebsiella pneumoniae and Staphyloccous aureus * wbc is down to 8.6 * on IV unasyn * 3. Community acquired pneumonia: as under 2. 4. Bracycardia, likely medication induced: as under 1. 5. KURT on CKD * likely pre-renal due to medication induced hypotension and bradycardia * Cr down to 3.32, from 4.08 yesterday * nephrology on board; think it is likely due to ATN from hypotension; no need for PATIENT ACCESS REPRESENTATIVE now * received lasix yesterday, and put out 1.45L of urine over last 24 hours. * kidney and bladder USG showed mild echogenic cortex of the kidneys which may be due to medical renal disease 6. Hypertensive urgency: Resolved. 7. Type 2 diabetes mellitus: Metformin on hold on account of KURT. on Insulin lantus 15IU qhs Insulin sliding scale. Accu-Cheks every 6 hours. 8. GERD: on PPI. 9. Acute viral conjunctivitis: Resolved. 10. Mild hyponatremia: Sodium is 134 today. continue hydrating with IVF and monitor. 11. Hyperlipidemia: On statin 12. Anemia: Hb is 9.7; baseline is ~ 11. Likely due to current severe illness. Will check iron panel 13. DVT prophylaxis: renal dose of lovenox GI prophylaxis: on lansoprazole 30mg daily. Nutrition: on tube feeding with Vitral AF 1.2 juli liquid at 65mls/hr Code Visit Inpatient E&M: 45922 Subs Hosp L3
[2018-06-06 10:55] LABS: Bedside Glucose 239 mg/dL (70-110)
--- NOTE | 2018-06-06 11:12 | CASEMGMT ---
Pt remains on the ventilator this morning. SW spoke w/daughter Doris and Doris's , daughter Adilene, and granddaughter for pt in waiting room. As per family, they confirm pt's PCP is Dr. Laird, pt uses [email or web address]. Pt lives with Doris and her . Doris explained that pt lives with them not because she needs to, but because we want her. Pt normally is fully independent, still drives. Pt uses no DME, has no history of home health or SNF stay. SW explained to family will continue to follow along as sometimes patients after something like this are not able to go straight home, and may need to go somewhere for rehab. Family members nodded in understanding. SW let family know also that SW is available for support. SW/CM will continue to follow and check in w/family, will make arrangements for the needed discharge plan when appropriate. RENAY Ramirez, INSTALLATION HELPER
[2018-06-06 11:23] LABS: Pathologist Review Reviewed
[2018-06-06 11:47] LABS: Ferritin 72 ng/mL (8-252); Iron 59 ug/dL (50-170); Iron Binding Capacity,Total 263 ug/dL (250-450); PERCENT IRON SATURATION 22.4 % (15.0-55.0)
[2018-06-06 15:16] LABS: Bedside Glucose 180 mg/dL (70-110)
--- NOTE | 2018-06-06 16:32 | NURSING ---
reviewed wilmer rn charting and agree with assessment findings
[2018-06-06 18:30] LABS: Bedside Glucose 231 mg/dL (70-110)
[2018-06-06] MEDS: Atorvastatin Calcium 80 MG Tablet GT (21:30)
[2018-06-06 21:56] LABS: Bedside Glucose 251 mg/dL (70-110)
[2018-06-07] VITALS (43 sets, daily range): BP systolic 147–228; BP diastolic 55–84; PULSE 18–117; RESP 14–23; TEMP 36.4–36.7; O2SAT 90–96
[2018-06-07] MEDS: Propofol 10MG/Ml 1,000 MG/100 ML Bottle 6.749 MG CONT INF (02:16)
[2018-06-07] MEDS: Insulin Lispro 100 UNIT/ML INSULN.PEN SC ×4 (02:19→18:15)
[2018-06-07 02:26] LABS: Bedside Glucose 258 mg/dL (70-110)
[2018-06-07 04:34] LABS: Hematocrit 34.1 % (37-47); Hemoglobin 11.1 g/dl (12.0-15.0); Mean Corp Hgb Conc 32.6 g/gl (32-36); Mean Corpuscular Hgb 27.4 pg (27.0-32.0); Mean Corpuscular Volume 84.2 fL (81-99); Mean Platelet Vol. 9.8 fl (6.2-12.0); Platelet Count 450 K/mm3 (150-450); RBC Distribution Width CV 15.4 % (11.6-14.6); RBC Distribution Width SD 46.7 fl (35.1-43.9); Red Blood Count 4.05 M/mm3 (4.2-5.4); White Blood Count 11.4 K/mm3 (4.4-11.0)
[2018-06-07 04:35] LABS: Differential Indicated MANUAL DIFF; POSITIVE COUNT YES; POSITIVE DIFFERENTIAL NO; POSITIVE MORPHOLOGY YES
[2018-06-07 04:46] LABS: Anion Gap 11 (5-15); BUN 112 mg/dL (7-18); BUN/Creat Ratio 47.3 RATIO (10-20); Calcium,Total 7.7 mg/dL (8.5-10.1); Chloride 101 mmol/L (98-107); Creatinine, Serum 2.37 mg/dL (0.55-1.02); EST Glomerular Filtration Rate 21 mL/min (>60); Est Glom Filt Rate - Afr Amer 26 mL/min (>60); Estimated Creatinine Clearance 18.01 ml/min; Glucose 273 mg/dL (74-106); Potassium 4.7 mmol/L (3.5-5.1); Sodium Level 136 mmol/L (136-145)
[2018-06-07] MEDS: hydrALAZINE 20 MG/ML Vial 10 MG IV (04:59)
[2018-06-07] MEDS: 0.9% NaCl Peripheral Flush Adult/Peds IV ×3 (05:00→17:51)
[2018-06-07 05:05] LABS: Neutrophil-Band 1 % (0-5); Neutrophil-Segmented 90 % (47-70); Total Cells Counted 100 (MANUAL DIFF)
[2018-06-07 05:06] LABS: Acanthocytes 1+; Lymphocyte 3 % (19-41); Metamyelocyte 2 % (0-1); Monocyte 2 % (0-10); Myelocyte 2 (0-0); Nucleated Red Bld Cells,Manual 2 % (0-5); Platelet Estimate ADEQUATE (ADEQ); Red Cell Morphology NORM C+C NORMAL (NORM C&C); Schistocytes RARE
[2018-06-07 05:07] LABS: Absolute Lymphocyte Count 0.34 X10^3/ul (0.83-4.51); Absolute Neutrophil Count 10.4 X10^3/uL (2.0-7.7); Lymphocyte # 0.34 X10^3/ul (4.0); Neutrophil # 10.37 X10^3/uL (2.7-7.7)
[2018-06-07] MEDS: Vital AF 1.2 Cal Liquid 1,000 ML 65 ML GT (05:23)
--- NOTE | 2018-06-07 05:38 | CPS ---
Pt placed back on sedation d/t increased agitation, SBT failed
--- NOTE | 2018-06-07 05:39 | CPS ---
Pt failed SBT this AM and placed back on assist control mode d/t increased agitation.
[2018-06-07] MEDS: CHLORHEXIDINE GLUC 2% CLOTH 1 EACH TOWELETTE TOPICAL (06:36)
[2018-06-07] MEDS: Ipratropium/Albuterol Sulfate 3 ML AMPUL.NEB INHALATION ×4 (06:44→19:02)
--- NOTE | 2018-06-07 07:44 | PN_ITS ---
Subjective: Patient did okay overnight. Patient did have some issues with elevated blood pressure, that were exacerbated by spontaneous breathing trial. Patient also had a fluid balance that was positive over the last 24 hours. Nursing reports adequate bowel movements overnight. General: Alert, - - RASS 0. Not following commands. Morbidly obese. HEENT: Atraumatic, PERRLA, EOMI, Normocephalic, - - Slight scleral injection without icterus Oral: Moist Mucosa, No Gingival or Mucosal Lesions/ Ulcerations Neck: Supple, No JVD, No Nodes, Trachea Midline Lungs: No wheeze, No rales, Diminished, Rhonchi, - - Symmetric expansion. No dullness to percussion. Cardiovascular: Regular rate, Regular Rhythm, Normal S1, Normal S2, No murmurs, No rub noted, No Gallop Abdomen: Bowel Sounds Present, Soft, Non Tender, Distended - Slightly Extremities: No cyanosis, Capillary Refill Less than 3 Seconds, Edema Skin: - - No significant change compared to previous Musculoskeletal: No Tenderness to Palpation of Joints or Extremities Lymphatic: No Cervical, Supraclavicular, or Inguinal Adenopathy Neurological: Cranial nerves II-XII grossly intact, Neuro grossly intact, Motor Exam 5/5 strength throughout Psych/Mental Status: Flat Affect, Impulsive Vital Signs Temp Pulse Resp BP Pulse Ox 36.6 C 96 16 172/67 H 91 06/07/18 04:00 06/07/18 07:00 06/07/18 07:00 06/07/18 07:00 06/07/18 07:00 Oxygen Flow Rate (L/min) 1 Oxygen Delivery Method Mechanical Ventilator Weight: 122 kg Body Mass Index (BMI) 43.9 Finger Stick Blood Glucose 155 Intake and Output for Last 24 Hours 06/05/18 06/06/18 06/07/18 23:59 23:59 23:59 Intake Total 1528.7 / 1528.7 3209.5 / 3209.5 648 / 648 Output Total 1450 / 1450 2650 / 2650 500 / 500 Balance 78.7 / 78.7 559.5 / 559.5 148 / 148 Labs (Last 48 Hours) 06/05/18 06/05/18 06/05/18 10:01 14:58 19:03 WBC RBC Hgb Hct MCV MCH MCHC RDW RDW Differential Plt Count MPV Immature Gran % (Auto) Neut % (Auto) Lymph % (Auto) [place] % (Auto) Eos % (Auto) Baso % (Auto) Absolute Neuts (auto) Absolute Lymphs (auto) Total Counted Neutrophils % (Manual) Band Neutrophils % Lymphocytes % (Manual) Monocytes % (Manual) Metamyelocytes % Myelocytes % Nucleated RBCs/100 WBC Differential Comment Diff Path Review Platelet Estimate RBC Morphology Acanthocytes (Spur) Schistocytes Sodium Potassium Chloride Carbon Dioxide Anion Gap BUN Creatinine Estim Creat Clear Calc Est GFR (MDRD) Af Amer Est GFR (MDRD) Non-Af BUN/Creatinine Ratio Glucose Calcium Iron TIBC Iron Saturation Ferritin POC Glucose 175 H 183 H 211 H 06/05/18 06/06/18 06/06/18 21:12 02:03 03:45 WBC 8.6 RBC 3.46 L Hgb 9.7 L Hct 29.7 L MCV 85.8 MCH 28.0 MCHC 32.7 RDW 15.5 H RDW Differential 48.5 H Plt Count 344 MPV 10.0 Immature Gran % (Auto) 2.000 H Neut % (Auto) 87.1 H Lymph % (Auto) 6.7 L [place] % (Auto) 4.1 Eos % (Auto) 0.0 Baso % (Auto) 0.1 Absolute Neuts (auto) 7.5 Absolute Lymphs (auto) 0.57 L Total Counted Not Reportable Neutrophils % (Manual) Band Neutrophils % Lymphocytes % (Manual) Monocytes % (Manual) Metamyelocytes % Myelocytes % Nucleated RBCs/100 WBC Differential Comment Diff Path Review Reviewed Platelet Estimate RBC Morphology Acanthocytes (Spur) Schistocytes Sodium Potassium Chloride Carbon Dioxide Anion Gap BUN Creatinine Estim Creat Clear Calc Est GFR (MDRD) Af Amer Est GFR (MDRD) Non-Af BUN/Creatinine Ratio Glucose Calcium Iron TIBC Iron Saturation Ferritin POC Glucose 191 H 173 H 06/06/18 06/06/18 06/06/18 03:45 03:45 05:40 WBC RBC Hgb Hct MCV MCH MCHC RDW RDW Differential Plt Count MPV Immature Gran % (Auto) Neut % (Auto) Lymph % (Auto) [place] % (Auto) Eos % (Auto) Baso % (Auto) Absolute Neuts (auto) Absolute Lymphs (auto) Total Counted Neutrophils % (Manual) Band Neutrophils % Lymphocytes % (Manual) Monocytes % (Manual) Metamyelocytes % Myelocytes % Nucleated RBCs/100 WBC Differential Comment Diff Path Review Platelet Estimate RBC Morphology Acanthocytes (Spur) Schistocytes Sodium 134 L Potassium 4.7 Chloride 100 Carbon Dioxide 22.0 Anion Gap 12 BUN 103 H* Creatinine 3.32 H Estim Creat Clear Calc 12.86 Est GFR (MDRD) Af Amer 18 L Est GFR (MDRD) Non-Af 15 L BUN/Creatinine Ratio 31.0 H Glucose 203 H Calcium 7.5 L Iron 59 TIBC 263 Iron Saturation 22.4 Ferritin 72 POC Glucose 224 H 06/06/18 06/06/18 06/06/18 10:29 15:11 18:07 WBC RBC Hgb Hct MCV MCH MCHC RDW RDW Differential Plt Count MPV Immature Gran % (Auto) Neut % (Auto) Lymph % (Auto) [place] % (Auto) Eos % (Auto) Baso % (Auto) Absolute Neuts (auto) Absolute Lymphs (auto) Total Counted Neutrophils % (Manual) Band Neutrophils % Lymphocytes % (Manual) Monocytes % (Manual) Metamyelocytes % Myelocytes % Nucleated RBCs/100 WBC Differential Comment Diff Path Review Platelet Estimate RBC Morphology Acanthocytes (Spur) Schistocytes Sodium Potassium Chloride Carbon Dioxide Anion Gap BUN Creatinine Estim Creat Clear Calc Est GFR (MDRD) Af Amer Est GFR (MDRD) Non-Af BUN/Creatinine Ratio Glucose Calcium Iron TIBC Iron Saturation Ferritin POC Glucose 239 H 180 H 231 H 06/06/18 06/07/18 06/07/18 21:36 02:18 04:20 WBC 11.4 H RBC 4.05 L Hgb 11.1 L Hct 34.1 L MCV 84.2 MCH 27.4 MCHC 32.6 RDW 15.4 H RDW Differential 46.7 H Plt Count 450 MPV 9.8 Immature Gran % (Auto) Neut % (Auto) Not Reportable Lymph % (Auto) [place] % (Auto) Eos % (Auto) Baso % (Auto) Absolute Neuts (auto) 10.4 H Absolute Lymphs (auto) 0.34 L Total Counted 100 Neutrophils % (Manual) 90 H Band Neutrophils % 1 Lymphocytes % (Manual) 3 L Monocytes % (Manual) 2 Metamyelocytes % 2 H Myelocytes % 2 H Nucleated RBCs/100 WBC 2 Differential Comment Diff Path Review May foll Platelet Estimate ADEQUATE RBC Morphology NORM C+C Acanthocytes (Spur) 1+ Schistocytes RARE Sodium Potassium Chloride Carbon Dioxide Anion Gap BUN Creatinine Estim Creat Clear Calc Est GFR (MDRD) Af Amer Est GFR (MDRD) Non-Af BUN/Creatinine Ratio Glucose Calcium Iron TIBC Iron Saturation Ferritin POC Glucose 251 H 258 H 06/07/18 04:20 WBC RBC Hgb Hct MCV MCH MCHC RDW RDW Differential Plt Count MPV Immature Gran % (Auto) Neut % (Auto) Lymph % (Auto) [place] % (Auto) Eos % (Auto) Baso % (Auto) Absolute Neuts (auto) Absolute Lymphs (auto) Total Counted Neutrophils % (Manual) Band Neutrophils % Lymphocytes % (Manual) Monocytes % (Manual) Metamyelocytes % Myelocytes % Nucleated RBCs/100 WBC Differential Comment Diff Path Review Platelet Estimate RBC Morphology Acanthocytes (Spur) Schistocytes Sodium 136 Potassium 4.7 Chloride 101 Carbon Dioxide 24.0 Anion Gap 11 BUN 112 H* Creatinine 2.37 H Estim Creat Clear Calc 18.01 Est GFR (MDRD) Af Amer 26 L Est GFR (MDRD) Non-Af 21 L BUN/Creatinine Ratio 47.3 H Glucose 273 H Calcium 7.7 L Iron TIBC Iron Saturation Ferritin POC Glucose Microbiology 06/03/18 21:45 Urine Catheter - Catheter Urine Culture - Preliminary Yeast, not Brina albicans 06/03/18 19:30 Sputum, Induced/Lukens Gram Stain - Final 06/03/18 19:30 Sputum, Induced/Lukens Respiratory Culture - Final Klebsiella pneumoniae sp pneum Staphylococcus aureus 06/02/18 20:45 Blood Culture (Wb) - Anticubital Left Blood Culture - Preliminary No growth in 48 hours. 06/02/18 20:45 Blood Culture (Wb) - Central Line Blood Culture - Preliminary No growth in 48 hours. Medical Necessity - Tobacco Use Smoking Status: Former smoker Tobacco Use: Cigarettes Assessment/Plan All Active Problems Respiratory failure with hypoxia (Acute) Acute exacerbation of chronic obstructive pulmonary disease (COPD) (Acute) Bronchospasm (Acute) Viral conjunctivitis (Acute) Allergic conjunctivitis (Acute) Chemosis of conjunctiva (Acute) Bradycardia (Acute) Hypotension (Acute) Decreased responsiveness (Acute) Acute hypoxic respiratory failure (Acute) Acute kidney injury (Acute) Prerenal azotemia (Resolved) RECOMMENDATIONS: 1. Schedule diuretic therapy with goal of -1-2 L by tomorrow 2. Wean FiO2 as tolerated 3. Increase activity as tolerated with PT 4. Complete 10 days of antibiotics 5. Spontaneous breathing and awakening trials per protocol 6. Transition to Precedex therapy 7. Add antihypertensive IMPRESSIONS: 1. Acute respiratory failure secondary to MSSA and Klebsiella pneumonia Unclear if patient had an element of aspiration related to decreased mental status associated with bradycardia. Patient is responding well to therapy. Patient unable to pass spontaneous breathing trial this morning, but urine output appears to be improved. Patient is over 10 L positive throughout the hospitalization. We will schedule patient with diuretic therapy with a goal of -1-2 L by tomorrow. We will also transition to Precedex therapy to help with spontaneous awakening and breathing trials. Patient has not had any significant bradycardia in days 2. Cardiogenic shock secondary to bradycardia Unclear etiology at this time. Transvenous pacing has been discontinued along with venous sheath. No pressor therapy has been required for over 24 hours. Blood pressure remains adequate and heart rate is now in the low 90s. Patient was on extensive beta and calcium channel blockers as an outpatient. Unclear if this is secondary to residual medications given patient's acute kidney injury. Cardiology is currently following. Patient does have an extensive cardiac history. Defer to cardiology on reinitiation of rate control 3. Acute kidney injury on CKD stage III Likely prerenal etiology. [place] continues to improve. BUN is still elevated. Patient may have an element of ATN secondary to hypotension related to problems 1 and 2. Nephrology is following. Schedule Lasix therapy. 4. Diabetes mellitus type 2 Patient currently with elevated glucose. This is likely secondary to ster oid therapy and tube feeds. We will continue to monitor closely. Basal insulin will be increased. Continue with sliding scale insulin. 5. GERD/anxiety/morbid obesity/hyperlipidemia/CAD status post CABG/reported COPD Complicates care, management, recovery and prognosis. Quantification of respiratory function is not available at this time. Will attempt to increase mobility with therapy today. TIME: 40 minutes critical care time spent addressing patient's acute respiratory failure, cardiogenic shock, acute kidney injury, review of all data and collaboration with care team (7 AM to 7:45 AM) Code Visit [id number]: [id number] Critical care first hour
--- NOTE | 2018-06-07 07:53 | PN.CARD_ITS ---
Subjectve: The patient remains mechanically intubated/ventilated. She is noted to be hypertensive. She is noted to have increasing urinary output. Her creatinine levels are decreasing. Objective: Vital Signs Temp Pulse Resp BP Pulse Ox 97.9 F 96 16 172/67 H 91 06/07/18 04:00 06/07/18 07:00 06/07/18 07:00 06/07/18 07:00 06/07/18 07:00 Oxygen Flow Rate (L/min) 1 Oxygen Delivery Method Mechanical Ventilator Weight: 268 lb 15.423 oz Body Mass Index (BMI) 43.9 Finger Stick Blood Glucose 155 Intake and Output for Last 24 Hours 06/05/18 06/06/18 06/07/18 23:59 23:59 23:59 Intake Total 1528.7 / 1528.7 3209.5 / 3209.5 648 / 648 Output Total 1450 / 1450 2650 / 2650 500 / 500 Balance 78.7 / 78.7 559.5 / 559.5 148 / 148 Lungs: Rhonchi Cardiovascular: Regular Rhythm, Normal S1, Normal S2 Abdomen: Bowel Sounds Present, Soft Extremities: Trace RLE Edema, Trace LLE Edema 06/06/18 03:45: Iron 59, TIBC 263, Iron Saturation 22.4, Ferritin 72 06/07/18 04:20: WBC 11.4 H, RBC 4.05 L, Hgb 11.1 L, Hct 34.1 L, MCV 84.2, MCH 27.4, MCHC 32.6, RDW 15.4 H, RDW Differential 46.7 H, Plt Count 450, MPV 9.8, Neut % (Auto) Not Reportable, Absolute Neuts (auto) 10.4 H, Total Counted 100, Neutrophils % (Manual) 90 H, Band Neutrophils % 1, Lymphocytes % (Manual) 3 L, Monocytes % (Manual) 2, Metamyelocytes % 2 H, Myelocytes % 2 H 06/07/18 04:20: Sodium 136, Potassium 4.7, Chloride 101, Carbon Dioxide 24.0, Anion Gap 11, BUN 112 H*, Creatinine 2.37 H, Est GFR (MDRD) Af Amer 26 L, Est GFR (MDRD) Non-Af 21 L, BUN/Creatinine Ratio 47.3 H, Glucose 273 H, Calcium 7.7 L Rhythm: Sinus rhythm Medical Necessity - Tobacco Use Smoking Status: Former smoker Tobacco Use: Cigarettes Assessment/Plan 1. Bradycardia/hypotension The patient remains without any rate limiting medications, IV vasopressor support, or temporary transvenous pacemaker support. The patient is maintaining a sinus rhythm. 2. CAD status post CABG She has undergone evaluation with formal transthoracic echocardiogram during sinus rhythm. Her overall left ventricular size, wall motion, and systolic function was considered normal with an LVEF of 60%. At the present time she will continue risk factor modification care and medical management as deemed appropriate. Her medications can be adjusted as her clinical course progresses. 3. Hyperlipidemia She will continue lipid-lowering therapy as deemed appropriate. 4. Hypertension She has now become hypertensive. She is going to be treated with nonrate limiting medications and medications and hopefully will have no or minimal impact with respect to her renal status. It appears she has been placed on amlodipine therapy. If that does not assist with her blood pressure control then she may need to be considered, especially while she is still mechanically intubated/ventilated, for IV medication such as IV hydralazine or if need be agent such as IV nitrates (monitoring for any obvious bradycardia effect), etc. 5. Diabetes mellitus She will continue under the care of internal medicine for this. 6. COPD She apparently has long-standing COPD. She will continue evaluation care by internal medicine and pulmonology/critical care medicine. 6. Renal insufficiency Her creatinine level is decreasing. Her urinary output appears to be increasing. Again an attempt is being made to avoid medications would have a negative impact with respect to her renal function. She is being followed by nephrology. This note was generated with [employer] dictation software. It may contain incorrect words, spelling, and punctuation that were not noted in checking the note before signing.
[2018-06-07] MEDS: amLODIPine 5 MG Tablet PO (08:25)
[2018-06-07] MEDS: Gabapentin 100 MG Capsule GT (08:35)
--- NOTE | 2018-06-07 09:14 | PCM.PN.REN ---
Patient Problems: Active and Suspected Problems Respiratory failure with hypoxia (Acute) Acute exacerbation of chronic obstructive pulmonary disease (COPD) (Acute) Bronchospasm (Acute) Viral conjunctivitis (Acute) Allergic conjunctivitis (Acute) Chemosis of conjunctiva (Acute) Bradycardia (Acute) Hypotension (Acute) Decreased responsiveness (Acute) Acute hypoxic respiratory failure (Acute) Subjective: Patient remains intubated and mildly sedated. FiO2 35%. Patient opens her eyes and follow simple commands. - Physical Exam General: - - No acute distress. Opens her eyes and follow simple commands HEENT: Atraumatic Oral: Moist Mucosa Neck: Supple, No JVD, - Cardiovascular: Regular rate, Regular Rhythm, Normal S1 - ET tube in place, Normal S2 Extremities: No clubbing, No cyanosis, Edema - Trace edema of lower extremities Skin: No rashes Musculoskeletal: No Muscle Wasting Lymphatic: No Cervical, Supraclavicular, or Inguinal Adenopathy Psych/Mental Status: Appropriate Vital Signs Temp Pulse Resp BP Pulse Ox 98 F 84 17 167/69 H 93 06/07/18 08:00 06/07/18 09:00 06/07/18 09:00 06/07/18 09:00 06/07/18 09:00 Oxygen Flow Rate (L/min) 1 Oxygen Delivery Method Mechanical Ventilator Weight: 122 kg Body Mass Index (BMI) 43.9 Finger Stick Blood Glucose 155 Intake and Output for Last 24 Hours 06/05/18 06/06/18 06/07/18 23:59 23:59 23:59 Intake Total 1528.7 / 1528.7 3209.5 / 3209.5 678 / 678 Output Total 1450 / 1450 2650 / 2650 500 / 500 Balance 78.7 / 78.7 559.5 / 559.5 178 / 178 Microbiology Past 72 Hours 06/03/18 21:45 Urine Culture - Final Urine Catheter - Catheter Yeast, not Brina albicans 06/03/18 19:30 Gram Stain - Final Sputum, Induced/Lukens Respiratory Culture - Final Klebsiella pneumoniae sp pneum Staphylococcus aureus 06/02/18 20:45 Blood Culture - Preliminary Blood Culture (Wb) - Anticubital Left No growth in 48 hours. 06/02/18 20:45 Blood Culture - Preliminary Blood Culture (Wb) - Central Line No growth in 48 hours. Laboratory Tests Past 24 Hrs 06/06/18 06/06/1819 03:45 03:45 04:20 WBC 11.4 H RBC 4.05 L Hgb 11.1 L Hct 34.1 L MCV 84.2 MCH 27.4 MCHC 32.6 RDW 15.4 H RDW Differential 46.7 H Plt Count 450 MPV 9.8 Neut % (Auto) Not Reportable Absolute Neuts (auto) 10.4 H Absolute Lymphs (auto) 0.34 L Total Counted 100 Neutrophils % (Manual) 90 H Band Neutrophils % 1 Lymphocytes % (Manual) 3 L Monocytes % (Manual) 2 Metamyelocytes % 2 H Myelocytes % 2 H Nucleated RBCs/100 WBC 2 Diff Path Review Reviewed July Platelet Estimate ADEQUATE RBC Morphology NORM C+C Acanthocytes (Spur) 1+ Schistocytes RARE Sodium Potassium Chloride Carbon Dioxide Anion Gap BUN Creatinine Estim Creat Clear Calc Est GFR (MDRD) Af Amer Est GFR (MDRD) Non-Af BUN/Creatinine Ratio Glucose Calcium Iron 59 TIBC 263 Iron Saturation 22.4 Ferritin 72 06/07/18 04:20 WBC RBC Hgb Hct MCV MCH MCHC RDW RDW Differential Plt Count MPV Neut % (Auto) Absolute Neuts (auto) Absolute Lymphs (auto) Total Counted Neutrophils % (Manual) Band Neutrophils % Lymphocytes % (Manual) Monocytes % (Manual) Metamyelocytes % Myelocytes % Nucleated RBCs/100 WBC Diff Path Review Platelet Estimate RBC Morphology Acanthocytes (Spur) Schistocytes Sodium 136 Potassium 4.7 Chloride 101 Carbon Dioxide 24.0 Anion Gap 11 BUN 112 H* Creatinine 2.37 H Estim Creat Clear Calc 18.01 Est GFR (MDRD) Af Amer 26 L Est GFR (MDRD) Non-Af 21 L BUN/Creatinine Ratio 47.3 H Glucose 273 H Calcium 7.7 L Iron TIBC Iron Saturation Ferritin POC Glucose 06/07/18 06/06/18 06/06/18 02:18 21:36 18:07 POC Glucose 258 H 251 H 231 H 06/06/18 06/06/18 15:11 10:29 POC Glucose 180 H 239 H Medical Necessity - Tobacco Use Smoking Status: Former smoker Tobacco Use: Cigarettes Assessment/Plan All Active Problems Respiratory failure with hypoxia (Acute) Acute exacerbation of chronic obstructive pulmonary disease (COPD) (Acute) Bronchospasm (Acute) Viral conjunctivitis (Acute) Allergic conjunctivitis (Acute) Chemosis of conjunctiva (Acute) Bradycardia (Acute) Hypotension (Acute) Decreased responsiveness (Acute) Acute hypoxic respiratory failure (Acute) Acute kidney injury (Acute) Prerenal azotemia (Resolved) 1- KURT on CKD stage 3. Baseline Cr 1.1-1.3 mg/dl UA showed 30 protein. No RBC. No WBC KURT is most ATN from sepsis. I doubt another KURT etiology for now Creatinine is improving. Last creatinine trend 3.3->2.37. BUN is to rise from steroid, NG tube feeding and diuresis Patient is responding well to Lasix. I am okay to increase Lasix to 40 mg twice a day No hyperkalemia. No acidosis.No indication for HD Keep mean arterial pressure more than 65. Avoid renal toxic like IV contrast and NSAIDs Will continue to monitor kidney function and clinical status 2- Acute RF from pneumonia/COPD exacerbation. Vent support as per ICU team 3- cardiogenic shock from medications induced bradycardia. Resolved. Off pressors 4-hypertension: Blood pressure is elevated I agree with starting amlodipine 5 mg p.o. daily. Renal team will continue to follow. Please call if any question at [phone] plan of care was d/w with Dr. Jhon Hughes MD
--- NOTE | 2018-06-07 09:30 | PCM.PN.HOSP ---
Patient Problems: Active and Suspected Problems Respiratory failure with hypoxia (Acute) Acute exacerbation of chronic obstructive pulmonary disease (COPD) (Acute) Bronchospasm (Acute) Viral conjunctivitis (Acute) Allergic conjunctivitis (Acute) Chemosis of conjunctiva (Acute) Bradycardia (Acute) Hypotension (Acute) Decreased responsiveness (Acute) Acute hypoxic respiratory failure (Acute) Subjective: Patient seen and examined. She is alert and calm. She remains on sedation with propofol and fentanyl. She is failed spontaneous breathing trial again and her blood pressure was elevated during the spontaneous breathing trial. Patient in positive balance by 10 L since admission. She is to be started on diuresis with Lasix. Labs and vitals reviewed. Vitals/I&O's: Vital Signs Temp Pulse Resp BP Pulse Ox 98 F 84 17 167/69 H 93 06/07/18 08:00 06/07/18 09:00 06/07/18 09:00 06/07/18 09:00 06/07/18 09:00 Oxygen Flow Rate (L/min) 1 Oxygen Delivery Method Mechanical Ventilator Weight: 268 lb 15.423 oz Body Mass Index (BMI) 43.9 Finger Stick Blood Glucose 155 Intake and Output for Last 24 Hours 06/05/18 06/06/18 06/07/18 23:59 23:59 23:59 Intake Total 1528.7 / 1528.7 3209.5 / 3209.5 678 / 678 Output Total 1450 / 1450 2650 / 2650 500 / 500 Balance 78.7 / 78.7 559.5 / 559.5 178 / 178 General: - - intubated, sedated, RASS score is 0, alert and calm HEENT: Atraumatic, PERRLA, EOMI, Normocephalic Oral: Dry Mucosa Neck: Supple, No JVD, Negative Carotid Bruits Lungs: - - decreased breath sounds bibasally, no wheezes or crackles Cardiovascular: Regular rate, Regular Rhythm, Normal S1, Normal S2, No murmurs Abdomen: Bowel Sounds Present, Soft, Non Tender Extremities: No clubbing, No cyanosis, No edema, Capillary Refill Less than 3 Seconds Skin: No rashes, No breakdown Musculoskeletal: No Tenderness to Palpation of Joints or Extremities Lymphatic: No Cervical, Supraclavicular, or Inguinal Adenopathy Neurological: Cranial nerves II-XII grossly intact Psych/Mental Status: - - intubated, sedated. RASS score is ~ 0 Microbiology Past 72 Hours 06/03/18 21:45 Urine Catheter - Catheter Urine Culture - Final Yeast, not Brina albicans 06/03/18 19:30 Sputum, Induced/Lukens Gram Stain - Final 06/03/18 19:30 Sputum, Induced/Lukens Respiratory Culture - Final Klebsiella pneumoniae sp pneum Staphylococcus aureus 06/02/18 20:45 Blood Culture (Wb) - Anticubital Left Blood Culture - Preliminary No growth in 48 hours. 06/02/18 20:45 Blood Culture (Wb) - Central Line Blood Culture - Preliminary No growth in 48 hours. Laboratory Results 06/06/18 03:45: Diff Path Review Reviewed 06/06/18 03:45: Iron 59, TIBC 263, Iron Saturation 22.4, Ferritin 72 06/06/18 10:29: POC Glucose 239 H 06/06/18 15:11: POC Glucose 180 H 06/06/18 18:07: POC Glucose 231 H 06/06/18 21:36: POC Glucose 251 H 06/07/18 02:18: POC Glucose 258 H 06/07/18 04:20: WBC 11.4 H, RBC 4.05 L, Hgb 11.1 L, Hct 34.1 L, MCV 84.2, MCH 27.4, MCHC 32.6, RDW 15.4 H, RDW Differential 46.7 H, Plt Count 450, MPV 9.8, Neut % (Auto) Not Reportable, Absolute Neuts (auto) 10.4 H, Absolute Lymphs (auto) 0.34 L, Total Counted 100, Neutrophils % (Manual) 90 H, Band Neutrophils % 1, Lymphocytes % (Manual) 3 L, Monocytes % (Manual) 2, Metamyelocytes % 2 H, Myelocytes % 2 H, Nucleated RBCs/100 WBC 2, Diff Path Review May , Platelet Estimate ADEQUATE, RBC Morphology NORM C+C, Acanthocytes (Spur) 1+, Schistocytes RARE 06/07/18 04:20: Sodium 136, Potassium 4.7, Chloride 101, Carbon Dioxide 24.0, Anion Gap 11, BUN 112 H*, Creatinine 2.37 H, Estim Creat Clear Calc 18.01, Est GFR (MDRD) Af Amer 26 L, Est GFR (MDRD) Non-Af 21 L, BUN/Creatinine Ratio 47.3 H, Glucose 273 H, Calcium 7.7 L Current Medications Albuterol Sulfate (Ventolin Aerosols) 2.5 mg INHALATION Q2H PRN PRN PRN Reason: SHORTNESS OF BREATH Albuterol/Ipratropium (Duoneb) 3 ml INHALATION Q4HWA.RT [facility] Last Admin: 06/07/18 06:44 Dose: 3 ml Amlodipine Besylate (Norvasc) 5 mg GT DAILY [facility] Atorvastatin Calcium (Lipitor) 80 mg GT DAILY@2200 [facility] Last Admin: 06/06/18 21:30 Dose: 80 mg Chlorhexidine Gluconate () 15 ml PO BID [facility] Last Admin: 06/06/18 21:38 Dose: 15 ml Chlorhexidine Gluconate () 1 each TOPICAL DAILY [facility] Last Admin: 06/07/18 06:36 Dose: 1 each Dextrose (D50w Syringe) 0 gm IV X1 PRN; Protocol PRN Reason: Hypoglycemia Enoxaparin Sodium (Lovenox) 30 mg SC DAILY@1000 [facility] Last Admin: 06/06/18 10:21 Dose: 30 mg Famotidine (Pepcid) 20 mg GT DAILY [facility] Furosemide (Lasix) 40 mg IV BID@1000,1800 [facility] Gabapentin (Neurontin) 300 mg GT BID [facility] Glucagon () 1 mg IM .X1 PRN PRN Reason: Hypoglycemia Hydralazine HCl (Apresoline Iv) 10 mg IV Q4H PRN PRN PRN Reason: BLOOD PRESSURE Last Admin: 06/07/18 04:59 Dose: 10 mg Fentanyl () 100 mls @ 2.5 mls/hr CONT INF .Q40H [facility] Last Admin: 06/06/18 23:25 Dose: 2.5 mls/hr Sodium Chloride () 250 mls @ 15 mls/hr IV .[id number] PRN PRN Reason: SALINE FLUSH Propofol (Diprivan) 1,000 mg in 100 mls @ 6.749 mls/hr CONT INF .Q12H [facility]; Protocol Last Admin: 06/07/18 02:16 Dose: 6.749 mls/hr Enteral Nutritional Formula (Vital Af 1.2 Juli Liquid) 1,000 mls @ 65 mls/hr GT .[id number] [facility] Last Admin: 06/07/18 05:23 Dose: 65 mls/hr Ampicillin Sodium/Sulbactam (Sodium 3 gm/ Sodium Chloride) 112 mls @ 150 mls/hr IV Q12 [facility] Stop: 06/11/18 22:45 Last Admin: 06/06/18 21:39 Dose: 150 mls/hr Dexmedetomidine HCl 400 mcg/ (Sodium Chloride) 100 mls @ 15.25 mls/hr CONT INF .Q6H34M [facility] Last Admin: 06/07/18 08:25 Dose: 15.25 mls/hr Insulin Glargine (Lantus (Bkc)) 20 units SC 1800 [facility] Insulin Human Lispro (Humalog Kwikpen (Bkc)) 0 unit SC Q6 [facility]; Protocol Methylprednisolone (Solu-Medrol) 40 mg IV Q12 [facility] Ondansetron HCl (Zofran) 4 mg IV Q6H PRN PRN PRN Reason: NAUSEA/VOMITING Sodium Chloride () 5 - 15 ml IV UD PRN PRN Reason: SALINE FLUSH Last Admin: 06/07/18 05:00 Dose: 10 ml Sodium Chloride () 10 - 40 ml IV UD PRN PRN Reason: MULTILUMEN/HICMAN CATH FLUSH Last Admin: 06/07/18 06:38 Dose: 10 ml Medical Necessity - Tobacco Use Smoking Status: Former smoker Tobacco Use: Cigarettes Assessment/Plan All Active Problems Respiratory failure with hypoxia (Acute) Acute exacerbation of chronic obstructive pulmonary disease (COPD) (Acute) Bronchospasm (Acute) Viral conjunctivitis (Acute) Allergic conjunctivitis (Acute) Chemosis of conjunctiva (Acute) Bradycardia (Acute) Hypotension (Acute) Decreased responsiveness (Acute) Acute hypoxic respiratory failure (Acute) Acute kidney injury (Acute) Prerenal azotemia (Resolved) 1. Cardiogenic shock due to bradycardia resolved still intubated and sedated. bradycardia has resolved. off dopamine now cardiology and re dye hand on board. bradycardia was likely medication induced, as HR is now stable since medications were stopped. 2D echo showed EF of 60%, with stage 2 diastolic dysfunction and normal LV systolic function 2. Acute hypoxic and hypercapnic respiratory failure due to probable COPD exacerbation and pneumonia remains intubated and sedated; failed spontaneous breathing trial again today on breathing treatments and IV solumedrol re dye hand on board; PEEP 5cmH2O, with FiO2 of ~30% sputum cultured Klebsiella pneumoniae and MSSA on IV unasyn switched to precedex for sedation. 3. Community acquired pneumonia: as under 2. 4. Bracycardia, likely medication induced: as under 1. 5. KURT on CKD likely pre-renal due to medication induced hypotension and bradycardia Cr down to 2.37 today nephrology on board; think it is likely due to ATN from hypotension; no need for BACON SKINNER now received lasix yesterday, and put out 1.45L of urine over last 24 hours. in positive balance by ~ 10L since admission kidney and bladder USG showed mild echogenic cortex of the kidneys which may be due to medical renal disease started on IV lasix 40mg bid. will monitor urine output. 6. Hypertensive urgency: Resolved. 7. Type 2 diabetes mellitus: Metformin on hold on account of KURT. Insulin lantus increased to 20IU qhs Insulin sliding scale. Accu-Cheks every 6 hours. 8. GERD: on PPI. 9. Acute viral conjunctivitis: Resolved. 10. Mild hyponatremia: resolved. 11. Hyperlipidemia: On statin 12. Anemia: Hb is up to 11 today. Iron panel showed normal iron level of 59 and iron saturation of 22.4 Nutrition: on tube feeding with Vitral AF 1.2 juli liquid at 65mls/hr DVT prophylaxis: renal dose of lovenox GI prophylaxis: on lansoprazole 30mg daily. Code Visit Inpatient E&M: [id number] [facility] L3
--- NOTE | 2018-06-07 09:48 | PN_ITS ---
Patient Problems: Active and Suspected Problems Respiratory failure with hypoxia (Acute) Acute exacerbation of chronic obstructive pulmonary disease (COPD) (Acute) Bronchospasm (Acute) Viral conjunctivitis (Acute) Allergic conjunctivitis (Acute) Chemosis of conjunctiva (Acute) Bradycardia (Acute) Hypotension (Acute) Decreased responsiveness (Acute) Acute hypoxic respiratory failure (Acute) Subjective: Patient seen and examined. She is alert and calm. She remains on sedation with propofol and fentanyl. She is failed spontaneous breathing trial again and her blood pressure was elevated during the spontaneous breathing trial. Patient in positive balance by 10 L since admission. She is to be started on diuresis with Lasix. Labs and vitals reviewed. Vitals/I&O's: Vital Signs Temp Pulse Resp BP Pulse Ox 98 F 84 17 167/69 H 93 06/07/18 08:00 06/07/18 09:00 06/07/18 09:00 06/07/18 09:00 06/07/18 09:00 Oxygen Flow Rate (L/min) 1 Oxygen Delivery Method Mechanical Ventilator Weight: 268 lb 15.423 oz Body Mass Index (BMI) 43.9 Finger Stick Blood Glucose 155 Intake and Output for Last 24 Hours 06/05/18 06/06/18 06/07/18 23:59 23:59 23:59 Intake Total 1528.7 / 1528.7 3209.5 / 3209.5 678 / 678 Output Total 1450 / 1450 2650 / 2650 500 / 500 Balance 78.7 / 78.7 559.5 / 559.5 178 / 178 General: - - intubated, sedated, RASS score is 0, alert and calm HEENT: Atraumatic, PERRLA, EOMI, Normocephalic Oral: Dry Mucosa Neck: Supple, No JVD, Negative Carotid Bruits Lungs: - - decreased breath sounds bibasally, no wheezes or crackles Cardiovascular: Regular rate, Regular Rhythm, Normal S1, Normal S2, No murmurs Abdomen: Bowel Sounds Present, Soft, Non Tender Extremities: No clubbing, No cyanosis, No edema, Capillary Refill Less than 3 Seconds Skin: No rashes, No breakdown Musculoskeletal: No Tenderness to Palpation of Joints or Extremities Lymphatic: No Cervical, Supraclavicular, or Inguinal Adenopathy Neurological: Cranial nerves II-XII grossly intact Psych/Mental Status: - - intubated, sedated. RASS score is ~ 0 Microbiology Past 72 Hours 06/03/18 21:45 Urine Catheter - Catheter Urine Culture - Final Yeast, not Brina albicans 06/03/18 19:30 Sputum, Induced/Lukens Gram Stain - Final 06/03/18 19:30 Sputum, Induced/Lukens Respiratory Culture - Final Klebsiella pneumoniae sp pneum Staphylococcus aureus 06/02/18 20:45 Blood Culture (Wb) - Anticubital Left Blood Culture - Preliminary No growth in 48 hours. 06/02/18 20:45 Blood Culture (Wb) - Central Line Blood Culture - Preliminary No growth in 48 hours. Laboratory Results 06/06/18 03:45: Diff Path Review Reviewed 06/06/18 03:45: Iron 59, TIBC 263, Iron Saturation 22.4, Ferritin 72 06/06/18 10:29: POC Glucose 239 H 06/06/18 15:11: POC Glucose 180 H 06/06/18 18:07: POC Glucose 231 H 06/06/18 21:36: POC Glucose 251 H 06/07/18 02:18: POC Glucose 258 H 06/07/18 04:20: WBC 11.4 H, RBC 4.05 L, Hgb 11.1 L, Hct 34.1 L, MCV 84.2, MCH 27.4, MCHC 32.6, RDW 15.4 H, RDW Differential 46.7 H, Plt Count 450, MPV 9.8, Neut % (Auto) Not Reportable, Absolute Neuts (auto) 10.4 H, Absolute Lymphs (auto) 0.34 L, Total Counted 100, Neutrophils % (Manual) 90 H, Band Neutrophils % 1, Lymphocytes % (Manual) 3 L, Monocytes % (Manual) 2, Metamyelocytes % 2 H, Myelocytes % 2 H, Nucleated RBCs/100 WBC 2, Diff Path Review May , Platelet Estimate ADEQUATE, RBC Morphology NORM C+C, Acanthocytes (Spur) 1+, Schistocytes RARE 06/07/18 04:20: Sodium 136, Potassium 4.7, Chloride 101, Carbon Dioxide 24.0, Anion Gap 11, BUN 112 H*, Creatinine 2.37 H, Estim Creat Clear Calc 18.01, Est GFR (MDRD) Af Amer 26 L, Est GFR (MDRD) Non-Af 21 L, BUN/Creatinine Ratio 47.3 H , Glucose 273 H, Calcium 7.7 L Current Medications Albuterol Sulfate (Ventolin Aerosols) 2.5 mg INHALATION Q2H PRN PRN PRN Reason: SHORTNESS OF BREATH Albuterol/Ipratropium (Duoneb) 3 ml INHALATION Q4HWA.RT [facility] Last Admin: 06/07/18 06:44 Dose: 3 ml Amlodipine Besylate (Norvasc) 5 mg GT DAILY [facility] Atorvastatin Calcium (Lipitor) 80 mg GT DAILY@2200 [facility] Last Admin: 06/06/18 21:30 Dose: 80 mg Chlorhexidine Gluconate () 15 ml PO BID [facility] Last Admin: 06/06/18 21:38 Dose: 15 ml Chlorhexidine Gluconate () 1 each TOPICAL DAILY [facility] Last Admin: 06/07/18 06:36 Dose: 1 each Dextrose (D50w Syringe) 0 gm IV X1 PRN; Protocol PRN Reason: Hypoglycemia Enoxaparin Sodium (Lovenox) 30 mg SC DAILY@1000 [facility] Last Admin: 06/06/18 10:21 Dose: 30 mg Famotidine (Pepcid) 20 mg GT DAILY [facility] Furosemide (Lasix) 40 mg IV BID@1000,1800 [facility] Gabapentin (Neurontin) 300 mg GT BID [facility] Glucagon () 1 mg IM .X1 PRN PRN Reason: Hypoglycemia Hydralazine HCl (Apresoline Iv) 10 mg IV Q4H PRN PRN PRN Reason: BLOOD PRESSURE Last Admin: 06/07/18 04:59 Dose: 10 mg Fentanyl () 100 mls @ 2.5 mls/hr CONT INF .Q40H [facility] Last Admin: 06/06/18 23:25 Dose: 2.5 mls/hr Sodium Chloride () 250 mls @ 15 mls/hr IV .[id number] PRN PRN Reason: SALINE FLUSH Propofol (Diprivan) 1,000 mg in 100 mls @ 6.749 mls/hr CONT INF .Q12H [facility]; Protocol Last Admin: 06/07/18 02:16 Dose: 6.749 mls/hr Enteral Nutritional Formula (Vital Af 1.2 Juli Liquid) 1,000 mls @ 65 mls/hr GT .[id number] [facility] Last Admin: 06/07/18 05:23 Dose: 65 mls/hr Ampicillin Sodium/Sulbactam (Sodium 3 gm/ Sodium Chloride) 112 mls @ 150 mls/hr IV Q12 [facility] Stop: 06/11/18 22:45 Last Admin: 06/06/18 21:39 Dose: 150 mls/hr Dexmedetomidine HCl 400 mcg/ (Sodium Chloride) 100 mls @ 15.25 mls/hr CONT INF .Q6H34M [facility] Last Admin: 06/07/18 08:25 Dose: 15.25 mls/hr Insulin Glargine (Lantus (Bkc)) 20 units SC 1800 [facility] Insulin Human Lispro (Humalog Kwikpen (Bkc)) 0 unit SC Q6 [facility]; Protocol Methylprednisolone (Solu-Medrol) 40 mg IV Q12 [facility] Ondansetron HCl (Zofran) 4 mg IV Q6H PRN PRN PRN Reason: NAUSEA/VOMITING Sodium Chloride () 5 - 15 ml IV UD PRN PRN Reason: SALINE FLUSH Last Admin: 06/07/18 05:00 Dose: 10 ml Sodium Chloride () 10 - 40 ml IV UD PRN PRN Reason: MULTILUMEN/HICMAN CATH FLUSH Last Admin: 06/07/18 06:38 Dose: 10 ml Medical Necessity - Tobacco Use Smoking Status: Former smoker Tobacco Use: Cigarettes Assessment/Plan All Active Problems Respiratory failure with hypoxia (Acute) Acute exacerbation of chronic obstructive pulmonary disease (COPD) (Acute) Bronchospasm (Acute) Viral conjunctivitis (Acute) Allergic conjunctivitis (Acute) Chemosis of conjunctiva (Acute) Bradycardia (Acute) Hypotension (Acute) Decreased responsiveness (Acute) Acute hypoxic respiratory failure (Acute) Acute kidney injury (Acute) Prerenal azotemia (Resolved) 1. Cardiogenic shock due to bradycardia * resolved * still intubated and sedated. bradycardia has resolved. * off dopamine now * cardiology and bench jeweler on board. * bradycardia was likely medication induced, as HR is now stable since medications were stopped. * 2D echo showed EF of 60%, with stage 2 diastolic dysfunction and normal LV systolic function * 2. Acute hypoxic and hypercapnic respiratory failure due to probable COPD exacerbation and pneumonia * remains intubated and sedated; failed spontaneous breathing trial again today * on breathing treatments and IV solumedrol * bench jeweler on board; PEEP 5cmH2O, with FiO2 of ~30% * sputum cultured Klebsiella pneumoniae and MSSA * on IV unasyn * switched to precedex for sedation. * 3. Community acquired pneumonia: as under 2. 4. Bracycardia, likely medication induced: as under 1. 5. KURT on CKD * likely pre-renal due to medication induced hypotension and bradycardia * Cr down to 2.37 today * nephrology on board; think it is likely due to ATN from hypotension; no need for FITNESS SUPERVISOR now * received lasix yesterday, and put out 1.45L of urine over last 24 hours. * in positive balance by ~ 10L since admission * kidney and bladder USG showed mild echogenic cortex of the kidneys which may be due to medical renal disease * started on IV lasix 40mg bid. * will monitor urine output. 6. Hypertensive urgency: Resolved. 7. Type 2 diabetes mellitus: Metformin on hold on account of KURT. Insulin lantus increased to 20IU qhs Insulin sliding scale. Accu-Cheks every 6 hours. 8. GERD: on PPI. 9. Acute viral conjunctivitis: Resolved. 10. Mild hyponatremia: resolved. 11. Hyperlipidemia: On statin 12. Anemia: Hb is up to 11 today. Iron panel showed normal iron level of 59 and iron saturation of 22.4 Nutrition: on tube feeding with Vitral AF 1.2 juli liquid at 65mls/hr DVT prophylaxis: renal dose of lovenox GI prophylaxis: on lansoprazole 30mg daily. Code Visit Inpatient E&M: [id number] [facility] L3
[2018-06-07] MEDS: Furosemide 40 MG/4 ML Vial IV ×2 (10:22→17:51)
[2018-06-07] MEDS: Enoxaparin 30 MG/0.3 ML Syringe SC (10:22)
[2018-06-07] MEDS: Chlorhexidine 15 ML PO ×2 (10:22→23:39)
[2018-06-07 11:10] LABS: Bedside Glucose 259 mg/dL (70-110)
[2018-06-07] MEDS: hydrALAZINE 20 MG/ML Vial IV ×2 (11:45→16:31)
[2018-06-07] MEDS: fentaNYL drip 100 ML 2.5 MCG CONT INF ×2 (12:12→20:27)
[2018-06-07 12:20] LABS: Bedside Glucose 330 mg/dL (70-110)
[2018-06-07] MEDS: amLODIPine 5 MG Tablet GT (12:42)
[2018-06-07 13:41] LABS: Pathologist Review Reviewed
[2018-06-07 17:50] LABS: Bedside Glucose 241 mg/dL (70-110)
[2018-06-07] MEDS: hydrALAZINE 25 MG Tablet PO ×2 (18:38→23:27)
[2018-06-07] MEDS: Gabapentin 300 MG Capsule GT (23:28)
[2018-06-07] MEDS: Atorvastatin Calcium 80 MG Tablet GT (23:28)
[2018-06-08] VITALS (62 sets, daily range): BP systolic 153–230; BP diastolic 54–82; PULSE 74–110; RESP 9–22; TEMP 36.7–37.4; O2SAT 91–100
[2018-06-08 01:00] LABS: Bedside Glucose 145 mg/dL (70-110)
[2018-06-08] MEDS: hydrALAZINE 20 MG/ML Vial IV ×2 (01:29→14:28)
[2018-06-08] MEDS: 0.9% NaCl IVPB Med Flush (250 mL) 15 ML IV (04:42)
[2018-06-08 05:22] LABS: Differential Indicated MANUAL DIFF; Hematocrit 33.6 % (37-47); Hemoglobin 10.9 g/dl (12.0-15.0); Mean Corp Hgb Conc 32.4 g/gl (32-36); Mean Corpuscular Hgb 27.3 pg (27.0-32.0); POSITIVE COUNT YES; POSITIVE DIFFERENTIAL NO; POSITIVE MORPHOLOGY YES; Platelet Count 489 K/mm3 (150-450); RBC Distribution Width CV 15.8 % (11.6-14.6); RBC Distribution Width SD 47.3 fl (35.1-43.9); White Blood Count 16.3 K/mm3 (4.4-11.0)
[2018-06-08 05:29] LABS: Anion Gap 9 (5-15); BUN 111 mg/dL (7-18); BUN/Creat Ratio 63.8 RATIO (10-20); Calcium,Total 8.2 mg/dL (8.5-10.1); Chloride 105 mmol/L (98-107); Creatinine, Serum 1.74 mg/dL (0.55-1.02); EST Glomerular Filtration Rate 31 mL/min (>60); Est Glom Filt Rate - Afr Amer 37 mL/min (>60); Estimated Creatinine Clearance 24.53 ml/min; Glucose 239 mg/dL (74-106); Potassium 4.2 mmol/L (3.5-5.1); Sodium Level 140 mmol/L (136-145)
[2018-06-08 06:05] LABS: Lymphocyte 2 % (19-41); Metamyelocyte 6 % (0-1); Monocyte 2 % (0-10); Myelocyte 8 (0-0); Neutrophil-Band 2 % (0-5); Neutrophil-Segmented 80 % (47-70)
[2018-06-08 06:07] LABS: Total Cells Counted 100 (MANUAL DIFF)
[2018-06-08 06:08] LABS: Absolute Lymphocyte Count 0.33 X10^3/ul (0.83-4.51); Absolute Neutrophil Count 13.4 X10^3/uL (2.0-7.7); Lymphocyte # 0.33 X10^3/ul (4.0); Neutrophil # 13.37 X10^3/uL (2.7-7.7)
[2018-06-08 06:09] LABS: Differential Comment SCANNED
[2018-06-08 06:10] LABS: Acanthocytes RARE; Burr Cells RARE
[2018-06-08 06:12] LABS: Polychromasia RARE
[2018-06-08 06:13] LABS: Schistocytes RARE
[2018-06-08 06:14] LABS: Platelet Estimate SLT INC (ADEQ)
[2018-06-08] MEDS: Insulin Lispro 100 UNIT/ML INSULN.PEN SC ×3 (06:38→17:37)
[2018-06-08] MEDS: Furosemide 20 MG/2 ML VIAL IV (06:39)
[2018-06-08 06:46] LABS: Bedside Glucose 260 mg/dL (70-110)
[2018-06-08 06:55] LABS: Allen Test POS; Base Excess 0 mmol/L (-2 to +2); Bicarbonate 24.9 mmol/L (22-26); Blood Gas Specimen Type ART; FI02 35; Mode CPAP PS; O2 Delivery Device Vent; PEEP 5; PO2 62 mmHG (75-100); PS 5; SITE R Radial; SO2 91 % (95-99); Time Given 650; Total Carbon Dioxide 26 mmol/L; pCO2 40.3 mmHg (35-45)
[2018-06-08] MEDS: Ipratropium/Albuterol Sulfate 3 ML AMPUL.NEB INHALATION ×4 (07:05→18:43)
[2018-06-08] MEDS: fentaNYL drip 100 ML 2.5 MCG CONT INF ×2 (07:10→19:31)
--- NOTE | 2018-06-08 07:25 | PCM.PN.REN ---
Patient Problems: Active and Suspected Problems Respiratory failure with hypoxia (Acute) Acute exacerbation of chronic obstructive pulmonary disease (COPD) (Acute) Bronchospasm (Acute) Viral conjunctivitis (Acute) Allergic conjunctivitis (Acute) Chemosis of conjunctiva (Acute) Bradycardia (Acute) Hypotension (Acute) Decreased responsiveness (Acute) Acute hypoxic respiratory failure (Acute) Subjective: Following for KURT. Pt is intubated. She is alert. Cannot do ROS because she is on vent. - Physical Exam General: Alert, Cooperative HEENT: Atraumatic Oral: - - intubated Lungs: Clear to auscultation - anteriorly Cardiovascular: Regular Rhythm, Normal S1, Normal S2, Tachycardic Abdomen: Bowel Sounds Present, Soft, Non Tender Extremities: Edema - 1+ of LE Vital Signs Temp Pulse Resp BP Pulse Ox 98.3 F 100 10 L 182/76 H 92 06/08/18 06:00 06/08/18 06:30 06/08/18 06:00 06/08/18 06:30 06/08/18 06:00 Oxygen Flow Rate (L/min) 1 Oxygen Delivery Method Mechanical Ventilator Weight: 119.5 kg Body Mass Index (BMI) 43.9 Finger Stick Blood Glucose 155 Intake and Output for Last 24 Hours 06/06/18 06/07/18 06/08/18 23:59 23:59 23:59 Intake Total 3209.5 / 3209.5 1135 / 1135 1685 / 1685 Output Total 2650 / 2650 2400 / 2400 1700 / 1700 Balance 559.5 / 559.5 -1265 / -1265 -15 / -15 Microbiology Past 72 Hours 06/03/18 21:45 Urine Culture - Final Urine Catheter - Catheter Yeast, not Brina albicans 06/03/18 19:30 Gram Stain - Final Sputum, Induced/Lukens Respiratory Culture - Final Klebsiella pneumoniae sp pneum Staphylococcus aureus 06/02/18 20:45 Blood Culture - Preliminary Blood Culture (Wb) - Anticubital Left No growth in 48 hours. 06/02/18 20:45 Blood Culture - Preliminary Blood Culture (Wb) - Central Line No growth in 48 hours. Laboratory Tests Past 24 Hrs 06/07/18 06/08/18 06/08/18 04:20 04:50 04:50 WBC 16.3 H RBC 4.00 L Hgb 10.9 L Hct 33.6 L MCV 84.0 MCH 27.3 MCHC 32.4 RDW 15.8 H RDW Differential 47.3 H Plt Count 489 H MPV 10.0 Neut % (Auto) Not Reportable Absolute Neuts (auto) 13.4 H Absolute Lymphs (auto) 0.33 L Total Counted 100 Neutrophils % (Manual) 80 H Band Neutrophils % 2 Lymphocytes % (Manual) 2 L Monocytes % (Manual) 2 Metamyelocytes % 6 H Myelocytes % 8 H Differential Comment SCANNED Diff Path Review Reviewed May foll Platelet Estimate SLT INC Polychromasia RARE Pradeep Cells RARE Acanthocytes (Spur) RARE Schistocytes RARE Specimen Type Sample Site pH Bicarbonate Actual POC Total CO2 Base Excess O2 Saturation O2 % ABG pCO2 ABG pO2 Abram Test O2 Delivery Device Vent Mode POC PEEP POC Pressure Suppt Blood Gas Notified Whom Blood Gas Notified Time Sodium 140 Potassium 4.2 Chloride 105 Carbon Dioxide 26.0 Anion Gap 9 BUN 111 H* Creatinine 1.74 H Estim Creat Clear Calc 24.53 Est GFR (MDRD) Af Amer 37 L Est GFR (MDRD) Non-Af 31 L BUN/Creatinine Ratio 63.8 H Glucose 239 H Calcium 8.2 L 06/08/18 06:52 WBC RBC Hgb Hct MCV MCH MCHC RDW RDW Differential Plt Count MPV Neut % (Auto) Absolute Neuts (auto) Absolute Lymphs (auto) Total Counted Neutrophils % (Manual) Band Neutrophils % Lymphocytes % (Manual) Monocytes % (Manual) Metamyelocytes % Myelocytes % Differential Comment Diff Path Review Platelet Estimate Polychromasia Pradeep Cells Acanthocytes (Spur) Schistocytes Specimen Type ART Sample Site R Radial pH 7.40 Bicarbonate Actual 24.9 POC Total CO2 26 Base Excess 0 O2 Saturation 91 L O2 % 35 ABG pCO2 40.3 ABG pO2 62 L Abram Test POS O2 Delivery Device Vent Vent Mode CPAP PS POC PEEP 5 POC Pressure Suppt 5 Blood Gas Notified Whom ICU MD Blood Gas Notified Time 650 Sodium Potassium Chloride Carbon Dioxide Anion Gap BUN Creatinine Estim Creat Clear Calc Est GFR (MDRD) Af Amer Est GFR (MDRD) Non-Af BUN/Creatinine Ratio Glucose Calcium POC Glucose 06/08/18 06/08/18 06/07/18 06:28 00:51 17:46 POC Glucose 260 H 145 H 241 H 06/07/18 06/07/18 12:07 06:34 POC Glucose 330 H 259 H Medical Necessity - Tobacco Use Smoking Status: Former smoker Tobacco Use: Cigarettes Assessment/Plan All Active Problems Respiratory failure with hypoxia (Acute) Acute exacerbation of chronic obstructive pulmonary disease (COPD) (Acute) Bronchospasm (Acute) Viral conjunctivitis (Acute) Allergic conjunctivitis (Acute) Chemosis of conjunctiva (Acute) Bradycardia (Acute) Hypotension (Acute) Decreased responsiveness (Acute) Acute hypoxic respiratory failure (Acute) Acute kidney injury (Acute) Prerenal azotemia (Resolved) 1- KURT on CKD stage 3. Baseline Cr 1.1-1.3 mg/dl KURT is due to ischemic ATN related to sepsis. I doubt another KURT etiology for now Creatinine is improving. Last creatinine trend 3.3->2.37->1.74. Elevated BUN is likely realted to steroid, NG tube feeding and diuresis Patient is responding well to Lasix. I am okay to increase Lasix to 40 mg twice a day No hyperkalemia. No acidosis. No indication for HD Keep mean arterial pressure more than 65. Will continue to monitor kidney function and clinical status 2- Acute RF from pneumonia/COPD exacerbation. Vent support as per ICU team 3- cardiogenic shock from medications induced bradycardia. Resolved. Off pressors. 4-hypertension. Blood pressure is elevated. Continue diuresis. Increase amlodipine to 10 mg p.o. daily. plan of care was d/w with Dr. Frereira
--- NOTE | 2018-06-08 07:47 | PN_ITS ---
Subjective: Patient did okay overnight. Patient consistently had elevated blood pressures and tachycardia. Patient had tolerated the diuresis well and was able to be placed on a spontaneous breathing trial this morning, but was not extubated secondary to marginal oxygenation. Patient has tolerated tube feeds. General: Alert, - - Follow some direction. Good vent synchrony noted. Morbidly obese. HEENT: Atraumatic, PERRLA, EOMI, Normocephalic, - - Slight scleral injection without icterus Oral: Moist Mucosa, No Gingival or Mucosal Lesions/ Ulcerations Neck: Supple, No Nodes, Trachea Midline, JVD, Right Lungs: No rhonchi, No wheeze, Diminished, Rales, - - Symmetric expansion. Cardiovascular: Normal S1, Normal S2, No murmurs, No rub noted, No Gallop, Tachycardic Abdomen: Bowel Sounds Present, Soft, Non Tender, Non-Distended, Obese Extremities: No clubbing, No cyanosis, Capillary Refill Less than 3 Seconds, Edema Skin: - - No significant change compared to previous Musculoskeletal: No Tenderness to Palpation of Joints or Extremities, No Muscle Wasting Lymphatic: No Cervical, Supraclavicular, or Inguinal Adenopathy Neurological: Cranial nerves II-XII grossly intact, Neuro grossly intact Psych/Mental Status: Appropriate, Flat Affect Vital Signs Temp Pulse Resp BP Pulse Ox 36.8 C 100 10 L 182/76 H 92 06/08/18 06:00 06/08/18 07:37 06/08/18 06:00 06/08/18 06:30 06/08/18 06:00 Oxygen Flow Rate (L/min) 1 Oxygen Delivery Method Mechanical Ventilator Weight: 119.5 kg Body Mass Index (BMI) 43.9 Finger Stick Blood Glucose 155 Intake and Output for Last 24 Hours 06/06/18 06/07/18 06/08/18 23:59 23:59 23:59 Intake Total 3209.5 / 3209.5 1135 / 1135 1685 / 1685 Output Total 2650 / 2650 2400 / 2400 1700 / 1700 Balance 559.5 / 559.5 -1265 / -1265 -15 / -15 Labs (Last 48 Hours) 06/06/18 06/06/18 06/06/18 03:45 03:45 10:29 WBC RBC Hgb Hct MCV MCH MCHC RDW RDW Differential Plt Count MPV Neut % (Auto) Absolute Neuts (auto) Absolute Lymphs (auto) Total Counted Neutrophils % (Manual) Band Neutrophils % Lymphocytes % (Manual) Monocytes % (Manual) Metamyelocytes % Myelocytes % Nucleated RBCs/100 WBC Differential Comment Diff Path Review Reviewed Platelet Estimate RBC Morphology Polychromasia [place] Cells Acanthocytes (Spur) Schistocytes Specimen Type Sample Site pH Bicarbonate Actual POC Total CO2 Base Excess O2 Saturation O2 % ABG pCO2 ABG pO2 Abram Test O2 Delivery Device Vent Mode POC PEEP POC Pressure Suppt Blood Gas Notified Whom Blood Gas Notified Time Sodium Potassium Chloride Carbon Dioxide Anion Gap BUN Creatinine Estim Creat Clear Calc Est GFR (MDRD) Af Amer Est GFR (MDRD) Non-Af BUN/Creatinine Ratio Glucose Calcium Iron 59 TIBC 263 Iron Saturation 22.4 Ferritin 72 POC Glucose 239 H 06/06/18 06/06/18 06/06/18 15:11 18:07 21:36 WBC RBC Hgb Hct MCV MCH MCHC RDW RDW Differential Plt Count MPV Neut % (Auto) Absolute Neuts (auto) Absolute Lymphs (auto) Total Counted Neutrophils % (Manual) Band Neutrophils % Lymphocytes % (Manual) Monocytes % (Manual) Metamyelocytes % Myelocytes % Nucleated RBCs/100 WBC Differential Comment Diff Path Review Platelet Estimate RBC Morphology Polychromasia [place] Cells Acanthocytes (Spur) Schistocytes Specimen Type Sample Site pH Bicarbonate Actual POC Total CO2 Base Excess O2 Saturation O2 % ABG pCO2 ABG pO2 Abram Test O2 Delivery Device Vent Mode POC PEEP POC Pressure Suppt Blood Gas Notified Whom Blood Gas Notified Time Sodium Potassium Chloride Carbon Dioxide Anion Gap BUN Creatinine Estim Creat Clear Calc Est GFR (MDRD) Af Amer Est GFR (MDRD) Non-Af BUN/Creatinine Ratio Glucose Calcium Iron TIBC Iron Saturation Ferritin POC Glucose 180 H 231 H 251 H 06/07/18 06/07/18 06/07/18 02:18 04:20 04:20 WBC 11.4 H RBC 4.05 L Hgb 11.1 L Hct 34.1 L MCV 84.2 MCH 27.4 MCHC 32.6 RDW 15.4 H RDW Differential 46.7 H Plt Count 450 MPV 9.8 Neut % (Auto) Not Reportable Absolute Neuts (auto) 10.4 H Absolute Lymphs (auto) 0.34 L Total Counted 100 Neutrophils % (Manual) 90 H Band Neutrophils % 1 Lymphocytes % (Manual) 3 L Monocytes % (Manual) 2 Metamyelocytes % 2 H Myelocytes % 2 H Nucleated RBCs/100 WBC 2 Differential Comment Diff Path Review Reviewed Platelet Estimate ADEQUATE RBC Morphology NORM C+C Polychromasia Pradeep Cells Acanthocytes (Spur) 1+ Schistocytes RARE Specimen Type Sample Site pH Bicarbonate Actual POC Total CO2 Base Excess O2 Saturation O2 % ABG pCO2 ABG pO2 Abram Test O2 Delivery Device Vent Mode POC PEEP POC Pressure Suppt Blood Gas Notified Whom Blood Gas Notified Time Sodium 136 Potassium 4.7 Chloride 101 Carbon Dioxide 24.0 Anion Gap 11 BUN 112 H* Creatinine 2.37 H Estim Creat Clear Calc 18.01 Est GFR (MDRD) Af Amer 26 L Est GFR (MDRD) Non-Af 21 L BUN/Creatinine Ratio 47.3 H Glucose 273 H Calcium 7.7 L Iron TIBC Iron Saturation Ferritin POC Glucose 258 H 06/07/18 06/07/18 06/07/18 06:34 12:07 17:46 WBC RBC Hgb Hct MCV MCH MCHC RDW RDW Differential Plt Count MPV Neut % (Auto) Absolute Neuts (auto) Absolute Lymphs (auto) Total Counted Neutrophils % (Manual) Band Neutrophils % Lymphocytes % (Manual) Monocytes % (Manual) Metamyelocytes % Myelocytes % Nucleated RBCs/100 WBC Differential Comment Diff Path Review Platelet Estimate RBC Morphology Polychromasia Pradeep Cells Acanthocytes (Spur) Schistocytes Specimen Type Sample Site pH Bicarbonate Actual POC Total CO2 Base Excess O2 Saturation O2 % ABG pCO2 ABG pO2 Abram Test O2 Delivery Device Vent Mode POC PEEP POC Pressure Suppt Blood Gas Notified Whom Blood Gas Notified Time Sodium Potassium Chloride Carbon Dioxide Anion Gap BUN Creatinine Estim Creat Clear Calc Est GFR (MDRD) Af Amer Est GFR (MDRD) Non-Af BUN/Creatinine Ratio Glucose Calcium Iron TIBC Iron Saturation Ferritin POC Glucose 259 H 330 H 241 H 06/08/18 06/08/18 06/08/18 00:51 04:50 04:50 WBC 16.3 H RBC 4.00 L Hgb 10.9 L Hct 33.6 L MCV 84.0 MCH 27.3 MCHC 32.4 RDW 15.8 H RDW Differential 47.3 H Plt Count 489 H MPV 10.0 Neut % (Auto) Not Reportable Absolute Neuts (auto) 13.4 H Absolute Lymphs (auto) 0.33 L Total Counted 100 Neutrophils % (Manual) 80 H Band Neutrophils % 2 Lymphocytes % (Manual) 2 L Monocytes % (Manual) 2 Metamyelocytes % 6 H Myelocytes % 8 H Nucleated RBCs/100 WBC Differential Comment SCANNED Diff Path Review May foll Platelet Estimate SLT INC RBC Morphology Polychromasia RARE Pradeep Cells RARE Acanthocytes (Spur) RARE Schistocytes RARE Specimen Type Sample Site pH Bicarbonate Actual POC Total CO2 Base Excess O2 Saturation O2 % ABG pCO2 ABG pO2 Abram Test O2 Delivery Device Vent Mode POC PEEP POC Pressure Suppt Blood Gas Notified Whom Blood Gas Notified Time Sodium 140 Potassium 4.2 Chloride 105 Carbon Dioxide 26.0 Anion Gap 9 BUN 111 H* Creatinine 1.74 H Estim Creat Clear Calc 24.53 Est GFR (MDRD) Af Amer 37 L Est GFR (MDRD) Non-Af 31 L BUN/Creatinine Ratio 63.8 H Glucose 239 H Calcium 8.2 L Iron TIBC Iron Saturation Ferritin POC Glucose 145 H 06/08/18 06/08/18 06:28 06:52 WBC RBC Hgb Hct MCV MCH MCHC RDW RDW Differential Plt Count MPV Neut % (Auto) Absolute Neuts (auto) Absolute Lymphs (auto) Total Counted Neutrophils % (Manual) Band Neutrophils % Lymphocytes % (Manual) Monocytes % (Manual) Metamyelocytes % Myelocytes % Nucleated RBCs/100 WBC Differential Comment Diff Path Review Platelet Estimate RBC Morphology Polychromasia Pradeep Cells Acanthocytes (Spur) Schistocytes Specimen Type ART Sample Site R Radial pH 7.40 Bicarbonate Actual 24.9 POC Total CO2 26 Base Excess 0 O2 Saturation 91 L O2 % 35 ABG pCO2 40.3 ABG pO2 62 L Abram Test POS O2 Delivery Device Vent Vent Mode CPAP PS POC PEEP 5 POC Pressure Suppt 5 Blood Gas Notified Whom ICU MD Blood Gas Notified Time 650 Sodium Potassium Chloride Carbon Dioxide Anion Gap BUN Creatinine Estim Creat Clear Calc Est GFR (MDRD) Af Amer Est GFR (MDRD) Non-Af BUN/Creatinine Ratio Glucose Calcium Iron TIBC Iron Saturation Ferritin POC Glucose 260 H Microbiology 06/03/18 21:45 Urine Catheter - Catheter Urine Culture - Final Yeast, not Brina albicans 06/03/18 19:30 Sputum, Induced/Lukens Gram Stain - Final 06/03/18 19:30 Sputum, Induced/Lukens Respiratory Culture - Final Klebsiella pneumoniae sp pneum Staphylococcus aureus Medical Necessity - Tobacco Use Smoking Status: Former smoker Tobacco Use: Cigarettes Assessment/Plan All Active Problems Respiratory failure with hypoxia (Acute) Acute exacerbation of chronic obstructive pulmonary disease (COPD) (Acute) Bronchospasm (Acute) Viral conjunctivitis (Acute) Allergic conjunctivitis (Acute) Chemosis of conjunctiva (Acute) Bradycardia (Acute) Hypotension (Acute) Decreased responsiveness (Acute) Acute hypoxic respiratory failure (Acute) Acute kidney injury (Acute) Prerenal azotemia (Resolved) RECOMMENDATIONS: 1. Schedule diuretic therapy with goal of -1-2 L by tomorrow 2. Wean FiO2 as tolerated 3. Increase activity as tolerated with PT 4. Complete 10 days of antibiotics 5. Spontaneous breathing and awakening trials per protocol 6. Consider Cardizem drip, discuss with cardiology IMPRESSIONS: 1. Acute respiratory failure secondary to MSSA and Klebsiella pneumonia Unclear if patient had an element of aspiration related to decreased mental status associated with bradycardia. Patient is responding well to therapy. Patient unable to pass spontaneous breathing trial this morning, but urine output appears to be improved. Patient is over 9 L positive throughout the hospitalization. We will schedule patient with diuretic therapy with a goal of -1-2 L by tomorrow. Patient has tolerated transition to Precedex therapy well. Continue spontaneous awakening and breathing trials. Patient has not had any significant bradycardia in days. Patient was not extubated secondary to marginal oxygenation. This should improve with continued diuresis. 2. Cardiogenic shock secondary to bradycardia Unclear etiology at this time. Transvenous pacing has been discontinued along with venous sheath. No pressor therapy has been required for over 24 hours. Blood pressure remains adequate and heart rate is now in the low 90s. Patient was on extensive beta and calcium channel blockers as an outpatient. Unclear if this is secondary to residual medications given patient's acute kidney injury. Cardiology is currently following. Patient does have an extensive cardiac history. Defer to cardiology on reinitiation of rate control, possibly Cardizem drip as this could be discontinued quickly 3. Acute kidney injury on CKD stage III Likely prerenal etiology. Patient continues to improve. BUN is still elevated. Patient may have an element of ATN secondary to hypotension related to problems 1 and 2. Nephrology is following. Schedule Lasix therapy. 4. Diabetes mellitus type 2 Patient currently with elevated glucose. This is likely secondary to steroid therapy and tube feeds. We will continue to monitor closely. Basal insulin will be increased. Continue with sliding scale insulin. 5. GERD/anxiety/morbid obesity/hyperlipidemia/CAD status post CABG/reported COPD Complicates care, management, recovery and prognosis. Quantification of respiratory function is not available at this time. Will attempt to increase mobility with therapy today. TIME: 35 minutes critical care time spent addressing patient's acute respiratory failure, cardiogenic shock, acute kidney injury, review of all data and collaboration with care team (7 AM to 7:45 AM) Code Visit [id number]: [id number] Critical care first hour
--- NOTE | 2018-06-08 08:19 | PCM.PN.HOSP ---
Patient Problems: Active and Suspected Problems Respiratory failure with hypoxia (Acute) Acute exacerbation of chronic obstructive pulmonary disease (COPD) (Acute) Bronchospasm (Acute) Viral conjunctivitis (Acute) Allergic conjunctivitis (Acute) Chemosis of conjunctiva (Acute) Bradycardia (Acute) Hypotension (Acute) Decreased responsiveness (Acute) Acute hypoxic respiratory failure (Acute) Subjective: Patient did have fever or chills. Blood pressure is elevated, 185/60. Heart rate was in 100s to 120s in the morning but currently 94 to 96/min. Vitals/I&O's: Vital Signs Temp Pulse Resp BP Pulse Ox 98.3 F 100 18 182/76 H 91 06/08/18 06:00 06/08/18 07:37 06/08/18 07:05 06/08/18 06:30 06/08/18 07:05 Oxygen Flow Rate (L/min) 1 Oxygen Delivery Method Mechanical Ventilator Weight: 263 lb 7.238 oz Body Mass Index (BMI) 43.9 Finger Stick Blood Glucose 155 Intake and Output for Last 24 Hours 06/06/18 06/07/18 06/08/18 23:59 23:59 23:59 Intake Total 3209.5 / 3209.5 1135 / 1135 1685 / 1685 Output Total 2650 / 2650 2400 / 2400 1700 / 1700 Balance 559.5 / 559.5 -1265 / -1265 -15 / -15 General: - - Patient responds to verbal command. Opens eyes or nystagmus. HEENT: Atraumatic, PERRLA, EOMI, Normocephalic Oral: - - Intubated on ventilator. OG tube Neck: Supple, No JVD, Negative Carotid Bruits Lungs: Diminished, - Cardiovascular: Regular rate - On vent support, Normal S1, Normal S2, No murmurs Abdomen: Bowel Sounds Present, Soft, Non Tender, Non-Distended Extremities: Capillary Refill Less than 3 Seconds, Edema Musculoskeletal: No Tenderness to Palpation of Joints or Extremities, Arthritic Changes Lymphatic: No Cervical, Supraclavicular, or Inguinal Adenopathy Neurological: Cranial nerves II-XII grossly intact Microbiology Past 72 Hours 06/03/18 21:45 Urine Catheter - Catheter Urine Culture - Final Yeast, not Rbina albicans 06/03/18 19:30 Sputum, Induced/Lukens Gram Stain - Final 06/03/18 19:30 Sputum, Induced/Lukens Respiratory Culture - Final Klebsiella pneumoniae sp pneum Staphylococcus aureus 06/02/18 20:45 Blood Culture (Wb) - Anticubital Left Blood Culture - Preliminary No growth in 48 hours. 06/02/18 20:45 Blood Culture (Wb) - Central Line Blood Culture - Preliminary No growth in 48 hours. Laboratory Results 06/07/18 04:20: Diff Path Review Reviewed 06/07/18 06:34: POC Glucose 259 H 06/07/18 12:07: POC Glucose 330 H 06/07/18 17:46: POC Glucose 241 H 06/08/18 00:51: POC Glucose 145 H 06/08/18 04:50: WBC 16.3 H, RBC 4.00 L, Hgb 10.9 L, Hct 33.6 L, MCV 84.0, MCH 27.3, MCHC 32.4, RDW 15.8 H, RDW Differential 47.3 H, Plt Count 489 H, MPV 10.0, Neut % (Auto) Not Reportable, Absolute Neuts (auto) 13.4 H, Absolute Lymphs (auto) 0.33 L, Total Counted 100, Neutrophils % (Manual) 80 H, Band Neutrophils % 2, Lymphocytes % (Manual) 2 L, Monocytes % (Manual) 2, Metamyelocytes % 6 H, Myelocytes % 8 H, Differential Comment SCANNED, Diff Path Review May foll, Platelet Estimate SLT INC, Polychromasia RARE, Osborne Cells RARE, Acanthocytes (Spur) RARE, Schistocytes RARE 06/08/18 04:50: Sodium 140, Potassium 4.2, Chloride 105, Carbon Dioxide 26.0, Anion Gap 9, BUN 111 H*, Creatinine 1.74 H, Estim Creat Clear Calc 24.53, Est GFR (MDRD) Af Amer 37 L, Est GFR (MDRD) Non-Af 31 L, BUN/Creatinine Ratio 63.8 H, Glucose 239 H, Calcium 8.2 L 06/08/18 06:28: POC Glucose 260 H 06/08/18 06:52: Specimen Type ART, Sample Site R Radial, pH 7.40, Bicarbonate Actual 24.9, POC Total CO2 26, Base Excess 0, O2 Saturation 91 L, O2 % 35, ABG pCO2 40.3, ABG pO2 62 L, Abram Test POS, O2 Delivery Device Vent, Vent Mode CPAP PS, POC PEEP 5, POC Pressure Suppt 5, Blood Gas Notified Whom ICU MD, Blood Gas Notified Time 650 Current Medications Albuterol Sulfate (Ventolin Aerosols) 2.5 mg INHALATION Q2H PRN PRN PRN Reason: SHORTNESS OF BREATH Albuterol/Ipratropium (Duoneb) 3 ml INHALATION Q4HWA.RT [facility] Last Admin: 06/08/18 07:05 Dose: 3 ml Amlodipine Besylate (Norvasc) 10 mg GT DAILY [facility] Atorvastatin Calcium (Lipitor) 80 mg GT DAILY@2200 [facility] Last Admin: 06/07/18 23:28 Dose: 80 mg Chlorhexidine Gluconate () 15 ml PO BID [facility] Last Admin: 06/07/18 23:39 Dose: 15 ml Chlorhexidine Gluconate () 1 each TOPICAL DAILY [facility] Last Admin: 06/07/18 06:36 Dose: 1 each Dextrose (D50w Syringe) 0 gm IV X1 PRN; Protocol PRN Reason: Hypoglycemia Enoxaparin Sodium (Lovenox) 30 mg SC DAILY@1000 [facility] Last Admin: 06/07/18 10:22 Dose: 30 mg Famotidine (Pepcid) 20 mg GT DAILY [facility] Last Admin: 06/07/18 10:17 Dose: Not Given Furosemide (Lasix) 40 mg IV BID@1000,1800 [facility] Last Admin: 06/07/18 17:51 Dose: 40 mg Gabapentin (Neurontin) 300 mg GT BID [facility] Last Admin: 06/07/18 23:28 Dose: 300 mg Glucagon () 1 mg IM .X1 PRN PRN Reason: Hypoglycemia Hydralazine HCl (Apresoline Iv) 20 mg IV Q4H PRN PRN PRN Reason: BLOOD PRESSURE Last Admin: 06/08/18 01:29 Dose: 20 mg Hydralazine HCl (Apresoline) 50 mg PO 4X/DAY [facility] Sodium Chloride () 250 mls @ 15 mls/hr IV .[id number] PRN PRN Reason: SALINE FLUSH Last Admin: 06/08/18 04:42 Dose: 15 mls/hr Propofol (Diprivan) 1,000 mg in 100 mls @ 6.749 mls/hr CONT INF .Q12H [facility]; Protocol Last Admin: 06/08/18 00:23 Dose: Not Given Enteral Nutritional Formula (Vital Af 1.2 Dar Liquid) 1,000 mls @ 65 mls/hr GT .[id number] [facility] Last Admin: 06/07/18 23:39 Dose: Not Given Ampicillin Sodium/Sulbactam (Sodium 3 gm/ Sodium Chloride) 112 mls @ 150 mls/hr IV Q12 [facility] Stop: 06/11/18 22:45 Last Admin: 06/07/18 23:39 Dose: 150 mls/hr Dexmedetomidine HCl 400 mcg/ (Sodium Chloride) 100 mls @ 15.25 mls/hr CONT INF .Q6H34M [facility] Last Admin: 06/08/18 06:34 Dose: 15.25 mls/hr Fentanyl () 100 mls @ 2.5 mls/hr CONT INF .Q40H [facility] Last Admin: 06/08/18 07:10 Dose: 2.5 mls/hr Nitroglycerin/Dextrose 25 mg/ (N/A) 250 mls @ 12 mls/hr IV .[id number] [facility]; Protocol Last Admin: 06/08/18 03:30 Dose: 12 mls/hr Insulin Glargine (Lantus (Bkc)) 20 units SC 1800 [facility] Last Admin: 06/07/18 17:51 Dose: 20 u Insulin Human Lispro (Humalog Kwikpen (Bkc)) 0 unit SC Q6 [facility]; Protocol Last Admin: 06/08/18 06:38 Dose: 9 u Methylprednisolone (Solu-Medrol) 40 mg IV Q12 [facility] Last Admin: 06/07/18 23:28 Dose: 40 mg Ondansetron HCl (Zofran) 4 mg IV Q6H PRN PRN PRN Reason: NAUSEA/VOMITING Sodium Chloride () 5 - 15 ml IV UD PRN PRN Reason: SALINE FLUSH Last Admin: 06/07/18 17:51 Dose: 10 ml Sodium Chloride () 10 - 40 ml IV UD PRN PRN Reason: MULTILUMEN/HICMAN CATH FLUSH Last Admin: 06/07/18 06:38 Dose: 10 ml Medical Necessity - Tobacco Use Smoking Status: Former smoker Tobacco Use: Cigarettes Assessment/Plan All Active Problems Respiratory failure with hypoxia (Acute) Acute exacerbation of chronic obstructive pulmonary disease (COPD) (Acute) Bronchospasm (Acute) Viral conjunctivitis (Acute) Allergic conjunctivitis (Acute) Chemosis of conjunctiva (Acute) Bradycardia (Acute) Hypotension (Acute) Decreased responsiveness (Acute) Acute hypoxic respiratory failure (Acute) Acute kidney injury (Acute) Prerenal azotemia (Resolved) This is a 72-year-old female who was admitted for COPD exacerbation with acute hypoxia. Chest x-ray did not show acute process. Respiratory panel was negative patient improved on bronchodilator, Solu-Medrol was weaned off oxygen. Patient had creatinine elevated and she was on HCTZ which was discontinued 1 or 2 days prior to admission by PCP. After that patient had rapid response with syncope with severe bradycardia and mild hypotension which led to the complex hospital course from [facility] to PCU and in ICU. Initially, patient was tried to resuscitate with IV fluid, atropine but did not improve and required IV dopamine and then Levophed and further intubated edge she was continued minimally responsive and mild hypoxia. She had a right IJ central venous catheter inserted. Later on, Dr. Clarke report transvenous pacemaker on same day. Subsequently, transvenous catheter has been removed. Patient is off the vasopressor support. 1. Cardiogenic shock most probably secondary to bradycardia and vasovagal syncope: Patient is still intubated. Seen by goodwill ambassador. Hydralazine dose increased 200 mg 3 times daily. On amlodipine 10 mg daily. No need for IV Cardizem as per Dr. jones. 2D echo showed EF of 60%, with stage 2 diastolic dysfunction and normal LV systolic function 2. Acute hypoxic and hypercapnic respiratory failure due to probable COPD exacerbation and pneumonia: Klebsiella and Staphylococcus pneumonia: Patient is still intubated. On a spontaneous awakening and breathing trial. Patient has lower extremity swelling and needs diuresis. On IV Precedex for sedation. 3. Community acquired pneumonia: On IV Unasyn. Chest x-ray showed scattered mild pulmonary opacities. 4. Bracycardia, likely medication induced: As mentioned above 5. KURT on CKD likely pre-renal due to medication induced hypotension and bradycardia Cr improving. BUN-111. Creatinine 1.74. nephrology on board; think it is likely due to ATN from hypotension; no need for [employer] now kidney and bladder USG showed mild echogenic cortex of the kidneys which may be due to medical renal disease on IV lasix 40mg bid. monitor urine output. 6. Hypertensive urgency: Resolved. 7. Type 2 diabetes mellitus: Metformin on hold on account of KURT. Insulin lantus increased to 20IU qhs Insulin sliding scale. Accu-Cheks every 6 hours. 8. GERD: on PPI. 9. Acute viral conjunctivitis: Resolved. 10. Mild hyponatremia: resolved. 11. Hyperlipidemia: On statin 12. Anemia: Iron panel showed normal iron level of 59 and iron saturation of 22.4. H&H about Nutrition: on tube feeding with Vitral AF 1.2 dar liquid at 65mls/hr DVT prophylaxis: renal dose of lovenox GI prophylaxis: on lansoprazole 30mg daily. Active Medications Albuterol Sulfate (Ventolin Aerosols) 2.5 mg INHALATION Q2H PRN PRN PRN Reason: SHORTNESS OF BREATH Albuterol/Ipratropium (Duoneb) 3 ml INHALATION Q4HWA.RT [facility] Last Admin: 06/08/18 10:26 Dose: 3 ml Amlodipine Besylate (Norvasc) 10 mg GT DAILY [facility] Last Admin: 06/08/18 08:52 Dose: 10 mg Atorvastatin Calcium (Lipitor) 80 mg GT DAILY@2200 [facility] Last Admin: 06/07/18 23:28 Dose: 80 mg Chlorhexidine Gluconate () 15 ml PO BID [facility] Last Admin: 06/08/18 08:29 Dose: 15 ml Chlorhexidine Gluconate () 1 each TOPICAL DAILY [facility] Last Admin: 06/08/18 08:57 Dose: 1 each Dextrose (D50w Syringe) 0 gm IV X1 PRN; Protocol PRN Reason: Hypoglycemia Enoxaparin Sodium (Lovenox) 30 mg SC DAILY@1000 [facility] Last Admin: 06/08/18 08:50 Dose: 30 mg Famotidine (Pepcid) 20 mg GT DAILY [facility] Last Admin: 06/08/18 08:52 Dose: 20 mg Furosemide (Lasix) 40 mg IV BID@1000,1800 [facility] Last Admin: 06/08/18 10:25 Dose: 40 mg Gabapentin (Neurontin) 300 mg GT BID [facility] Last Admin: 06/08/18 08:52 Dose: 300 mg Glucagon () 1 mg IM .X1 PRN PRN Reason: Hypoglycemia Hydralazine HCl (Apresoline Iv) 20 mg IV Q4H PRN PRN PRN Reason: BLOOD PRESSURE Last Admin: 06/08/18 01:29 Dose: 20 mg Hydralazine HCl (Apresoline) 100 mg PO TID [facility] Last Admin: 06/08/18 13:13 Dose: 100 mg Sodium Chloride () 250 mls @ 15 mls/hr IV .[id number] PRN PRN Reason: SALINE FLUSH Last Admin: 06/08/18 04:42 Dose: 15 mls/hr Enteral Nutritional Formula (Vital Af 1.2 Dar Liquid) 1,000 mls @ 65 mls/hr GT .[id number] [facility] Last Admin: 06/08/18 10:25 Dose: 65 mls/hr Ampicillin Sodium/Sulbactam (Sodium 3 gm/ Sodium Chloride) 112 mls @ 150 mls/hr IV Q12 [facility] Stop: 06/11/18 22:45 Last Admin: 06/08/18 08:58 Dose: 150 mls/hr Dexmedetomidine HCl 400 mcg/ (Sodium Chloride) 100 mls @ 15.25 mls/hr CONT INF .Q6H34M [facility] Last Admin: 06/08/18 10:56 Dose: 15.25 mls/hr Fentanyl () 100 mls @ 2.5 mls/hr CONT INF .Q40H [facility] Last Admin: 06/08/18 07:10 Dose: 2.5 mls/hr Insulin Glargine (Lantus (Bkc)) 20 units SC 1800 [facility] Last Admin: 06/07/18 17:51 Dose: 20 u Insulin Human Lispro (Humalog Kwikpen (Bkc)) 0 unit SC Q6 [facility]; Protocol Last Admin: 06/08/18 11:58 Dose: 3 u Methylprednisolone (Solu-Medrol) 40 mg IV Q12 [facility] Last Admin: 06/08/18 08:54 Dose: 40 mg Ondansetron HCl (Zofran) 4 mg IV Q6H PRN PRN PRN Reason: NAUSEA/VOMITING Sodium Chloride () 5 - 15 ml IV UD PRN PRN Reason: SALINE FLUSH Last Admin: 06/07/18 17:51 Dose: 10 ml Sodium Chloride () 10 - 40 ml IV UD PRN PRN Reason: MULTILUMEN/HICMAN CATH FLUSH Last Admin: 06/07/18 06:38 Dose: 10 ml Code Visit Inpatient E&M: [id number] [facility] L3
[2018-06-08] MEDS: Chlorhexidine 15 ML PO ×2 (08:29→22:08)
[2018-06-08] MEDS: hydrALAZINE 50 MG Tablet 100 MG PO ×3 (08:45→22:08)
[2018-06-08] MEDS: Enoxaparin 30 MG/0.3 ML Syringe SC (08:50)
[2018-06-08] MEDS: Gabapentin 300 MG Capsule GT ×2 (08:52→22:09)
[2018-06-08] MEDS: amLODIPine 10 MG Tablet GT (08:52)
[2018-06-08] MEDS: Famotidine 20 MG Tablet GT (08:52)
[2018-06-08] MEDS: CHLORHEXIDINE GLUC 2% CLOTH 1 EACH TOWELETTE TOPICAL (08:57)
--- NOTE | 2018-06-08 09:44 | PN.CARD_ITS ---
Subjectve: Patient seen and evaluated. Appears to be stable. She however is still intubated. Objective: Vital Signs Temp Pulse Resp BP Pulse Ox 98.3 F 102 H 18 163/59 H 91 06/08/18 06:00 06/08/18 08:46 06/08/18 07:05 06/08/18 08:46 06/08/18 07:05 Oxygen Flow Rate (L/min) 1 Oxygen Delivery Method Mechanical Ventilator Weight: 263 lb 7.238 oz Body Mass Index (BMI) 43.9 Finger Stick Blood Glucose 155 Intake and Output for Last 24 Hours 06/06/18 06/07/18 06/08/18 23:59 23:59 23:59 Intake Total 3209.5 / 3209.5 1135 / 1135 1685 / 1685 Output Total 2650 / 2650 2400 / 2400 1700 / 1700 Balance 559.5 / 559.5 -1265 / -1265 -15 / -15 General: Awake, Alert, Oriented x 3 HEENT: PERRL, EOMI, Sclera Non Icteric Neck: Supple, Good ROM, No Lymph Node Enlargement Lungs: Clear to auscultation Cardiovascular: Regular Rhythm, Normal S1, Normal S2, No Murmurs, No Rubs, No Gallops Vascular: No Carotid Bruits, Normal Femoral Pulses, Normal Radial Pulses, Normal Dorsalis Pedal Pulse, Normal Posterior Tibial Pulses Abdomen: Bowel Sounds Present, Soft, Non Tender, No HSM, No Organomegaly Extremities: No Cyanosis, No Clubbing, No edema Neurological: No Focal Motor or Sensory Deficit Psych/Mental Status: Appropriate 06/08/18 04:50: WBC 16.3 H, RBC 4.00 L, Hgb 10.9 L, Hct 33.6 L, MCV 84.0, MCH 27 .3, MCHC 32.4, RDW 15.8 H, RDW Differential 47.3 H, Plt Count 489 H, MPV 10.0, Neut % (Auto) Not Reportable, Absolute Neuts (auto) 13.4 H, Total Counted 100, Neutrophils % (Manual) 80 H, Band Neutrophils % 2, Lymphocytes % (Manual) 2 L, Monocytes % (Manual) 2, Metamyelocytes % 6 H, Myelocytes % 8 H 06/08/18 04:50: Sodium 140, Potassium 4.2, Chloride 105, Carbon Dioxide 26.0, Anion Gap 9, BUN 111 H*, Creatinine 1.74 H, Est GFR (MDRD) Af Amer 37 L, Est GFR (MDRD) Non-Af 31 L, BUN/Creatinine Ratio 63.8 H, Glucose 239 H, Calcium 8.2 L 06/08/18 06:52: pH 7.40, Bicarbonate Actual 24.9, POC Total CO2 26, Base Excess 0, O2 Saturation 91 L, ABG pCO2 40.3, ABG pO2 62 L, Abram Test POS Rhythm: EKG: ECHO: Stress Test: Cardiac Cath: PCI: CT Surgery: Holter monitor: EPS: PPM: CXR: Chest CT Scan: Medical Necessity - Tobacco Use Smoking Status: Former smoker Tobacco Use: Cigarettes Assessment/Plan 1. Bradycardia/hypotension The patient remains without any rate limiting medications, IV vasopressor support, or temporary transvenous pacemaker support.The patient is maintaining a sinus rhythm. 2. CAD status post CABG She is stable without any indication of coronary ischemia. She has undergone evaluation with formal transthoracic echocardiogram during sinus rhythm. Her overall left ventricular size, wall motion, and systolic function was considered normal with an LVEF of 60%. 3. Hyperlipidemia She will continue lipid-lowering therapy as deemed appropriate. 4. Hypertension She has now become hypertensive. Accommodation will be to continue the hydralazine at 100 mg 3 times a day, as well as Norvasc 10 mg a day. At this time I do not see any indication for starting her on any intravenous diltiazem. Her intravenous nitroglycerin should be weaned off. Thank you for allowing me to participate in the care of your patient. Please don't hesitate to call if any issues arise
[2018-06-08] MEDS: Furosemide 40 MG/4 ML Vial IV ×2 (10:25→17:39)
[2018-06-08] MEDS: Vital AF 1.2 Cal Liquid 1,000 ML 65 ML GT (10:25)
[2018-06-08 12:00] LABS: Bedside Glucose 203 mg/dL (70-110)
[2018-06-08 16:55] LABS: Bedside Glucose 261 mg/dL (70-110)
[2018-06-08] MEDS: Atorvastatin Calcium 80 MG Tablet GT (22:09)
[2018-06-09] VITALS (39 sets, daily range): BP systolic 149–200; BP diastolic 53–105; PULSE 62–106; RESP 10–25; TEMP 36.9–37.3; O2SAT 92–99
[2018-06-09 00:35] LABS: Bedside Glucose 235 mg/dL (70-110)
[2018-06-09] MEDS: Insulin Lispro 100 UNIT/ML INSULN.PEN SC ×5 (00:37→23:43)
[2018-06-09] MEDS: CHLORHEXIDINE GLUC 2% CLOTH 1 EACH TOWELETTE TOPICAL (02:11)
[2018-06-09] MEDS: Dexmedetomidine 1,000 mcg in 0.9% NS 240 mL 14.94 MCG CONT INF (02:45)
[2018-06-09 06:21] LABS: Allen Test POS; Base Excess 4 mmol/L (-2 to +2); Bicarbonate 28.9 mmol/L (22-26); Blood Gas Specimen Type ART; FI02 35; Mode VC+; O2 Delivery Device Vent; PEEP 5; PO2 76 mmHG (75-100); RR 16; SITE L Radial; SO2 95 % (95-99); Time Given 610; Total Carbon Dioxide 30 mmol/L; Vt 450; pCO2 44.1 mmHg (35-45); pH 7.42 (7.35-7.45)
[2018-06-09 06:25] LABS: Anion Gap 8 (5-15); BUN 99 mg/dL (7-18); BUN/Creat Ratio 66.4 RATIO (10-20); Calcium,Total 8.5 mg/dL (8.5-10.1); Chloride 107 mmol/L (98-107); Creatinine, Serum 1.49 mg/dL (0.55-1.02); EST Glomerular Filtration Rate 37 mL/min (>60); Est Glom Filt Rate - Afr Amer 44 mL/min (>60); Estimated Creatinine Clearance 28.65 ml/min; Glucose 295 mg/dL (74-106); Potassium 4.3 mmol/L (3.5-5.1); Sodium Level 145 mmol/L (136-145)
[2018-06-09 06:30] LABS: Bedside Glucose 265 mg/dL (70-110)
[2018-06-09] MEDS: Ipratropium/Albuterol Sulfate 3 ML AMPUL.NEB INHALATION ×4 (06:37→18:55)
[2018-06-09] MEDS: cloNIDine HCl 0.1 MG Tablet PO ×2 (06:38→13:19)
[2018-06-09] MEDS: hydrALAZINE 50 MG Tablet 100 MG PO ×3 (06:39→21:51)
[2018-06-09 06:52] LABS: Hematocrit 33.8 % (37-47); Hemoglobin 10.8 g/dl (12.0-15.0); Mean Corpuscular Hgb 27.3 pg (27.0-32.0); Mean Corpuscular Volume 85.6 fL (81-99); Mean Platelet Vol. 9.7 fl (6.2-12.0); Platelet Count 437 K/mm3 (150-450); RBC Distribution Width CV 16.3 % (11.6-14.6); RBC Distribution Width SD 50.5 fl (35.1-43.9); Red Blood Count 3.95 M/mm3 (4.2-5.4); White Blood Count 13.1 K/mm3 (4.4-11.0)
[2018-06-09 06:56] LABS: Differential Indicated MANUAL DIFF; POSITIVE COUNT YES; POSITIVE DIFFERENTIAL NO; POSITIVE MORPHOLOGY YES
[2018-06-09 07:33] LABS: Lymphocyte 7 % (19-41); Metamyelocyte 7 % (0-1); Monocyte 6 % (0-10); Myelocyte 1 (0-0); Neutrophil-Segmented 79 % (47-70); Total Cells Counted 100 (MANUAL DIFF)
[2018-06-09 07:35] LABS: Absolute Neutrophil Count 11.4 X10^3/uL (2.0-7.7); Lymphocyte # 0.92 X10^3/ul (4.0)
--- NOTE | 2018-06-09 07:35 | PN_ITS ---
Subjective: Patient did do okay overnight from a hemodynamic standpoint. Patient has been persistently hypertensive despite multiple as needed doses of medications. Patient did receive some labetalol overnight and heart rate dropped into the 60s-80s, but blood pressure was not as improved. Patient was able to complete a spontaneous breathing trial this morning and oxygenation was improved, so patient was extubated under my direct supervision. Objective: Patient was dosed with 0.1 of clonidine x1 prior to removal of OG. General: Alert, Cooperative, No apparent distress, - - Appears older than stated age. Morbidly obese. HEENT: Atraumatic, PERRLA, EOMI, Normocephalic, - - Slight scleral injection without icterus Oral: Moist Mucosa, No Gingival or Mucosal Lesions/ Ulcerations, - - Crowded posterior pharynx Neck: Supple, No Nodes, Trachea Midline, JVD, Right Lungs: No rhonchi, No wheeze, Diminished, Rales - Improving, - - Symmetric expansion. No dullness to percussion. Cardiovascular: Normal S1, Normal S2, No murmurs, No rub noted, No Gallop, Tachycardic Abdomen: Bowel Sounds Present, Soft, Non Tender, Non-Distended, Obese Extremities: No clubbing, No cyanosis, Capillary Refill Less than 3 Seconds, Edema - Anasarca is improving Skin: - - No significant change compared to previous Musculoskeletal: No Tenderness to Palpation of Joints or Extremities, No Muscle Wasting Lymphatic: No Cervical, Supraclavicular, or Inguinal Adenopathy Neurological: Cranial nerves II-XII grossly intact, Neuro grossly intact Psych/Mental Status: Appropriate, Flat Affect Vital Signs Temp Pulse Resp BP Pulse Ox 37.2 C 104 H 10 L 199/75 H 97 06/09/18 06:00 06/09/18 06:39 06/09/18 06:00 06/09/18 06:39 06/09/18 06:00 Oxygen Flow Rate (L/min) 1 Oxygen Delivery Method Mechanical Ventilator Weight: 118.2 kg Body Mass Index (BMI) 43.9 Finger Stick Blood Glucose 155 Intake and Output for Last 24 Hours 06/07/18 06/08/18 06/09/18 23:59 23:59 23:59 Intake Total 1135 / 1135 3067 / 3067 1930 / 1930 Output Total 2400 / 2400 4100 / 4100 2200 / 2200 Balance -1265 / -1265 -1033 / -1033 -270 / -270 Labs (Last 48 Hours) 06/07/18 06/07/18 06/07/18 04:20 06:34 12:07 WBC RBC Hgb Hct MCV MCH MCHC RDW RDW Differential Plt Count MPV Neut % (Auto) Absolute Neuts (auto) Absolute Lymphs (auto) Total Counted Neutrophils % (Manual) Band Neutrophils % Lymphocytes % (Manual) Monocytes % (Manual) Metamyelocytes % Myelocytes % Differential Comment Diff Path Review Reviewed Platelet Estimate Polychromasia [place] Cells Acanthocytes (Spur) Schistocytes Specimen Type Sample Site pH Bicarbonate Actual POC Total CO2 Base Excess O2 Saturation O2 % ABG pCO2 ABG pO2 Abram Test Respiration Rate O2 Delivery Device Vent Mode Tidal Volume POC PEEP POC Pressure Suppt Blood Gas Notified Whom Blood Gas Notified Time Sodium Potassium Chloride Carbon Dioxide Anion Gap BUN Creatinine Estim Creat Clear Calc Est GFR (MDRD) Af Amer Est GFR (MDRD) Non-Af BUN/Creatinine Ratio Glucose Calcium POC Glucose 259 H 330 H 06/07/18 06/08/18 06/08/18 17:46 00:51 04:50 WBC 16.3 H RBC 4.00 L Hgb 10.9 L Hct 33.6 L MCV 84.0 MCH 27.3 MCHC 32.4 RDW 15.8 H RDW Differential 47.3 H Plt Count 489 H MPV 10.0 Neut % (Auto) Not Reportable Absolute Neuts (auto) 13.4 H Absolute Lymphs (auto) 0.33 L Total Counted 100 Neutrophils % (Manual) 80 H Band Neutrophils % 2 Lymphocytes % (Manual) 2 L Monocytes % (Manual) 2 Metamyelocytes % 6 H Myelocytes % 8 H Differential Comment SCANNED Diff Path Review May foll Platelet Estimate SLT INC Polychromasia RARE [place] Cells RARE Acanthocytes (Spur) RARE Schistocytes RARE Specimen Type Sample Site pH Bicarbonate Actual POC Total CO2 Base Excess O2 Saturation O2 % ABG pCO2 ABG pO2 Abram Test Respiration Rate O2 Delivery Device Vent Mode Tidal Volume POC PEEP POC Pressure Suppt Blood Gas Notified Whom Blood Gas Notified Time Sodium Potassium Chloride Carbon Dioxide Anion Gap BUN Creatinine Estim Creat Clear Calc Est GFR (MDRD) Af Amer Est GFR (MDRD) Non-Af BUN/Creatinine Ratio Glucose Calcium POC Glucose 241 H 145 H 06/08/18 06/08/18 06/08/18 04:50 06:28 06:52 WBC RBC Hgb Hct MCV MCH MCHC RDW RDW Differential Plt Count MPV Neut % (Auto) Absolute Neuts (auto) Absolute Lymphs (auto) Total Counted Neutrophils % (Manual) Band Neutrophils % Lymphocytes % (Manual) Monocytes % (Manual) Metamyelocytes % Myelocytes % Differential Comment Diff Path Review Platelet Estimate Polychromasia [place] Cells Acanthocytes (Spur) Schistocytes Specimen Type ART Sample Site R Radial pH 7.40 Bicarbonate Actual 24.9 POC Total CO2 26 Base Excess 0 O2 Saturation 91 L O2 % 35 ABG pCO2 40.3 ABG pO2 62 L Abram Test POS Respiration Rate O2 Delivery Device Vent Vent Mode CPAP PS Tidal Volume POC PEEP 5 POC Pressure Suppt 5 Blood Gas Notified Whom ICU MD Blood Gas Notified Time 650 Sodium 140 Potassium 4.2 Chloride 105 Carbon Dioxide 26.0 Anion Gap 9 BUN 111 H* Creatinine 1.74 H Estim Creat Clear Calc 24.53 Est GFR (MDRD) Af Amer 37 L Est GFR (MDRD) Non-Af 31 L BUN/Creatinine Ratio 63.8 H Glucose 239 H Calcium 8.2 L POC Glucose 260 H 06/08/18 06/08/18 06/09/18 11:52 16:49 00:33 WBC RBC Hgb Hct MCV MCH MCHC RDW RDW Differential Plt Count MPV Neut % (Auto) Absolute Neuts (auto) Absolute Lymphs (auto) Total Counted Neutrophils % (Manual) Band Neutrophils % Lymphocytes % (Manual) Monocytes % (Manual) Metamyelocytes % Myelocytes % Differential Comment Diff Path Review Platelet Estimate Polychromasia [place] Cells Acanthocytes (Spur) Schistocytes Specimen Type Sample Site pH Bicarbonate Actual POC Total CO2 Base Excess O2 Saturation O2 % ABG pCO2 ABG pO2 Abram Test Respiration Rate O2 Delivery Device Vent Mode Tidal Volume POC PEEP POC Pressure Suppt Blood Gas Notified Whom Blood Gas Notified Time Sodium Potassium Chloride Carbon Dioxide Anion Gap BUN Creatinine Estim Creat Clear Calc Est GFR (MDRD) Af Amer Est GFR (MDRD) Non-Af BUN/Creatinine Ratio Glucose Calcium POC Glucose 203 H 261 H 235 H 06/09/18 06/09/18 06/09/18 05:45 05:45 06:09 WBC 13.1 H RBC 3.95 L Hgb 10.8 L Hct 33.8 L MCV 85.6 MCH 27.3 MCHC 32.0 RDW 16.3 H RDW Differential 50.5 H Plt Count 437 MPV 9.7 Neut % (Auto) Not Reportable Absolute Neuts (auto) Not Reportable Absolute Lymphs (auto) Total Counted Pending Neutrophils % (Manual) Band Neutrophils % Lymphocytes % (Manual) Monocytes % (Manual) Metamyelocytes % Myelocytes % Differential Comment Diff Path Review Platelet Estimate Polychromasia [place] Cells Acanthocytes (Spur) Schistocytes Specimen Type Sample Site pH Bicarbonate Actual POC Total CO2 Base Excess O2 Saturation O2 % ABG pCO2 ABG pO2 Abram Test Respiration Rate O2 Delivery Device Vent Mode Tidal Volume POC PEEP POC Pressure Suppt Blood Gas Notified Whom Blood Gas Notified Time Sodium 145 Potassium 4.3 Chloride 107 Carbon Dioxide 30.0 Anion Gap 8 BUN 99 H Creatinine 1.49 H Estim Creat Clear Calc 28.65 Est GFR (MDRD) Af Amer 44 L Est GFR (MDRD) Non-Af 37 L BUN/Creatinine Ratio 66.4 H Glucose 295 H Calcium 8.5 POC Glucose 265 H 06/09/18 06:16 WBC RBC Hgb Hct MCV MCH MCHC RDW RDW Differential Plt Count MPV Neut % (Auto) Absolute Neuts (auto) Absolute Lymphs (auto) Total Counted Neutrophils % (Manual) Band Neutrophils % Lymphocytes % (Manual) Monocytes % (Manual) Metamyelocytes % Myelocytes % Differential Comment Diff Path Review Platelet Estimate Polychromasia [place] Cells Acanthocytes (Spur) Schistocytes Specimen Type ART Sample Site L Radial pH 7.42 Bicarbonate Actual 28.9 H POC Total CO2 30 Base Excess 4 H O2 Saturation 95 O2 % 35 ABG pCO2 44.1 ABG pO2 76 Abram Test POS Respiration Rate 16 O2 Delivery Device Vent Vent Mode VC+ Tidal Volume 450 POC PEEP 5 POC Pressure Suppt Blood Gas Notified Whom ICU MD Blood Gas Notified Time 610 Sodium Potassium Chloride Carbon Dioxide Anion Gap BUN Creatinine Estim Creat Clear Calc Est GFR (MDRD) Af Amer Est GFR (MDRD) Non-Af BUN/Creatinine Ratio Glucose Calcium POC Glucose Microbiology 06/02/18 20:45 Blood Culture (Wb) - Anticubital Left Blood Culture - Final No growth in 5 days. 06/02/18 20:45 Blood Culture (Wb) - Central Line Blood Culture - Final No growth in 5 days. 06/03/18 21:45 Urine Catheter - Catheter Urine Culture - Final Yeast, not Brina albicans Medical Necessity - Tobacco Use Smoking Status: Former smoker Tobacco Use: Cigarettes Assessment/Plan All Active Problems Respiratory failure with hypoxia (Acute) Acute exacerbation of chronic obstructive pulmonary disease (COPD) (Acute) Bronchospasm (Acute) Viral conjunctivitis (Acute) Allergic conjunctivitis (Acute) Chemosis of conjunctiva (Acute) Bradycardia (Acute) Hypotension (Acute) Decreased responsiveness (Acute) Acute hypoxic respiratory failure (Acute) Acute kidney injury (Acute) Prerenal azotemia (Resolved) RECOMMENDATIONS: 1. Continue scheduled diuretic therapy with goal of -1-2 L by tomorrow 2. Wean FiO2 as tolerated 3. Increase activity as tolerated with PT 4. Complete 10 days of antibiotics 5. Possibly titrate up with clonidine for hypertension 6. Await results of bedside swallow evaluation IMPRESSIONS: 1. Acute respiratory failure secondary to MSSA and Klebsiella pneumonia Unclear if patient had an element of aspiration related to decreased mental status associated with bradycardia. Patient is responding well to therapy. Patient successfully extubated. Patient is over 7 L positive throughout the hospitalization. We will continue with diuretic therapy with a goal of -1-2 L by tomorrow. Discontinue Precedex and fentanyl. Patient has not had any significant bradycardia in days. Patient was not extubated secondary to marginal oxygenation. This should improve with continued diuresis. 2. Cardiogenic shock secondary to bradycardia Unclear etiology at this time. Transvenous pacing has been discontinued along with venous sheath. No pressor therapy has been required for over 24 hours. Blood pressure remains adequate and heart rate is now in the low 90s. Patient was on extensive beta and calcium channel blockers as an outpatient. Unclear if this is secondary to residual medications given patient's acute kidney injury. Cardiology is currently following. Patient does have an extensive cardiac history. Cardiology very wary about using any chronotropic agents. Patient has been dosed with clonidine this morning. 3. Acute kidney injury on CKD stage III/hypertensive urgency Likely prerenal etiology. Patient continues to improve. BUN is still elevated. Patient may have an element of ATN secondary to hypotension related to problems 1 and 2. Nephrology is following. Schedule Lasix therapy. Patient given 0.1 of clonidine this morning. This may be titrated for blood pressure. 4. Diabetes mellitus type 2 Patient currently with elevated glucose. Await bedside swallow evaluation. We will continue to monitor closely. Basal insulin may need to be discontinued pending swallow evaluation. Continue with sliding scale insulin. 5. GERD/anxiety/morbid obesity/hyperlipidemia/CAD status post CABG/reported COPD Complicates care, management, recovery and prognosis. Quantification of respiratory function is not available at this time. Will attempt to increase mobility with therapy today. TIME: 33 minutes critical care time spent addressing patient's acute respiratory failure, cardiogenic shock, acute kidney injury, review of all data and collaboration with care team (5:30 AM to 6:30 AM) Code Visit [id number]: [id number] Critical care first hour
[2018-06-09 07:36] LABS: Absolute Lymphocyte Count 0.92 X10^3/ul (0.83-4.51); Anisocytosis RARE; Platelet Estimate ADEQUATE (ADEQ)
[2018-06-09 07:37] LABS: Crenated RBC RARE
--- NOTE | 2018-06-09 07:52 | PCM.PN.HOSP ---
Patient Problems: Active and Suspected Problems Respiratory failure with hypoxia (Acute) Acute exacerbation of chronic obstructive pulmonary disease (COPD) (Acute) Bronchospasm (Acute) Viral conjunctivitis (Acute) Allergic conjunctivitis (Acute) Chemosis of conjunctiva (Acute) Bradycardia (Acute) Hypotension (Acute) Decreased responsiveness (Acute) Acute hypoxic respiratory failure (Acute) Subjective: The patient is extubated in the morning. Awake and alert and can talk in full sentences. Patient has cough and can bring up phlegm. Blood pressure still high. Heart rate is controlled; controlled last night but got in 90s-100 at the time of extubation; expected. Vitals/I&O's: Vital Signs Temp Pulse Resp BP Pulse Ox 98.9 F 100 18 199/75 H 95 06/09/18 06:00 06/09/18 06:45 06/09/18 06:45 06/09/18 06:39 06/09/18 06:45 Oxygen Flow Rate (L/min) 4 Oxygen Delivery Method Nasal Cannula Weight: 260 lb 9.382 oz Body Mass Index (BMI) 43.9 Finger Stick Blood Glucose 155 Intake and Output for Last 24 Hours 06/07/18 06/08/18 06/09/18 23:59 23:59 23:59 Intake Total 1135 / 1135 3067 / 3067 1930 / 1930 Output Total 2400 / 2400 4100 / 4100 2200 / 2200 Balance -1265 / -1265 -1033 / -1033 -270 / -270 General: Alert, Oriented x3, Cooperative HEENT: Atraumatic, PERRLA, EOMI, Normocephalic Neck: Supple, No JVD, Negative Carotid Bruits Lungs: No rales, Diminished - Air entry diminished in bilateral lung bases, Rhonchi Cardiovascular: Regular rate, Regular Rhythm, Normal S1, Normal S2, No murmurs Abdomen: Bowel Sounds Present, Soft, Non Tender, Non-Distended Extremities: Capillary Refill Less than 3 Seconds, Edema - improved Skin: No rashes, No breakdown Musculoskeletal: No Tenderness to Palpation of Joints or Extremities, Arthritic Changes Lymphatic: No Cervical, Supraclavicular, or Inguinal Adenopathy Neurological: Cranial nerves II-XII grossly intact, Deep Tendon Reflexes 2+/4 and Symmetrical, Neuro grossly intact Psych/Mental Status: Normal Affect, Appropriate Microbiology Past 72 Hours 06/02/18 20:45 Blood Culture (Wb) - Anticubital Left Blood Culture - Final No growth in 5 days. 06/02/18 20:45 Blood Culture (Wb) - Central Line Blood Culture - Final No growth in 5 days. 06/03/18 21:45 Urine Catheter - Catheter Urine Culture - Final Yeast, not Brina albicans 06/03/18 19:30 Sputum, Induced/Lukens Gram Stain - Final 06/03/18 19:30 Sputum, Induced/Lukens Respiratory Culture - Final Klebsiella pneumoniae sp pneum Staphylococcus aureus Laboratory Results 06/08/18 11:52: POC Glucose 203 H 06/08/18 16:49: POC Glucose 261 H 06/09/18 00:33: POC Glucose 235 H 06/09/18 05:45: Sodium 145, Potassium 4.3, Chloride 107, Carbon Dioxide 30.0, Anion Gap 8, BUN 99 H, Creatinine 1.49 H, Estim Creat Clear Calc 28.65, Est GFR (MDRD) Af Amer 44 L, Est GFR (MDRD) Non-Af 37 L, BUN/Creatinine Ratio 66.4 H, Glucose 295 H, Calcium 8.5 06/09/18 05:45: WBC 13.1 H, RBC 3.95 L, Hgb 10.8 L, Hct 33.8 L, MCV 85.6, MCH 27.3, MCHC 32.0, RDW 16.3 H, RDW Differential 50.5 H, Plt Count 437, MPV 9.7, Neut % (Auto) Not Reportable, Absolute Neuts (auto) 11.4 H, Absolute Lymphs (auto) 0.92, Total Counted 100, Neutrophils % (Manual) 79 H, Lymphocytes % (Manual) 7 L, Monocytes % (Manual) 6, Metamyelocytes % 7 H, Myelocytes % 1 H, Diff Path Review July, Platelet Estimate ADEQUATE, RBC Morphology RARE, Anisocytosis RARE 06/09/18 06:09: POC Glucose 265 H 06/09/18 06:16: Specimen Type ART, Sample Site L Radial, pH 7.42, Bicarbonate Actual 28.9 H, POC Total CO2 30, Base Excess 4 H, O2 Saturation 95, O2 % 35, ABG pCO2 44.1, ABG pO2 76, Abram Test POS, Respiration Rate 16, O2 Delivery Device Vent, Vent Mode VC+, Tidal Volume 450, POC PEEP 5, Blood Gas Notified Whom ICU MD, Blood Gas Notified Time 610 Current Medications Albuterol Sulfate (Ventolin Aerosols) 2.5 mg INHALATION Q2H PRN PRN PRN Reason: SHORTNESS OF BREATH Albuterol/Ipratropium (Duoneb) 3 ml INHALATION Q4HWA.RT [facility] Last Admin: 06/09/18 06:37 Dose: 3 ml Amlodipine Besylate (Norvasc) 10 mg GT DAILY [facility] Last Admin: 06/08/18 08:52 Dose: 10 mg Atorvastatin Calcium (Lipitor) 80 mg GT DAILY@2200 [facility] Last Admin: 06/08/18 22:09 Dose: 80 mg Chlorhexidine Gluconate () 15 ml PO BID [facility] Last Admin: 06/08/18 22:08 Dose: 15 ml Chlorhexidine Gluconate () 1 each TOPICAL DAILY [facility] Last Admin: 06/09/18 02:11 Dose: 1 each Dextrose (D50w Syringe) 0 gm IV X1 PRN; Protocol PRN Reason: Hypoglycemia Enoxaparin Sodium (Lovenox) 30 mg SC DAILY@1000 [facility] Last Admin: 06/08/18 08:50 Dose: 30 mg Famotidine (Pepcid) 20 mg GT DAILY [facility] Last Admin: 06/08/18 08:52 Dose: 20 mg Furosemide (Lasix) 40 mg IV BID@1000,1800 [facility] Last Admin: 06/08/18 17:39 Dose: 40 mg Gabapentin (Neurontin) 300 mg GT BID [facility] Last Admin: 06/08/18 22:09 Dose: 300 mg Glucagon () 1 mg IM .X1 PRN PRN Reason: Hypoglycemia Hydralazine HCl (Apresoline Iv) 20 mg IV Q4H PRN PRN PRN Reason: BLOOD PRESSURE Last Admin: 06/08/18 14:28 Dose: 20 mg Hydralazine HCl (Apresoline) 100 mg PO TID [facility] Last Admin: 06/09/18 06:39 Dose: 100 mg Sodium Chloride () 250 mls @ 15 mls/hr IV .[id number] PRN PRN Reason: SALINE FLUSH Last Admin: 06/08/18 04:42 Dose: 15 mls/hr Enteral Nutritional Formula (Vital Af 1.2 Dar Liquid) 1,000 mls @ 65 mls/hr GT .[id number] [facility] Last Admin: 06/09/18 06:36 Dose: Not Given Ampicillin Sodium/Sulbactam (Sodium 3 gm/ Sodium Chloride) 112 mls @ 150 mls/hr IV Q12 [facility] Stop: 06/11/18 22:45 Last Admin: 06/08/18 22:10 Dose: 150 mls/hr Fentanyl () 100 mls @ 2.5 mls/hr CONT INF .Q40H [facility] Last Admin: 06/08/18 19:31 Dose: 2.5 mls/hr Dexmedetomidine HCl 1,000 mcg/ (Sodium Chloride) 250 mls @ 14.94 mls/hr CONT INF .[id number] [facility] Last Admin: 06/09/18 02:45 Dose: 14.94 mls/hr Insulin Glargine (Lantus (Bkc)) 20 units SC 1800 [facility] Last Admin: 06/08/18 17:37 Dose: 20 u Insulin Human Lispro (Humalog Kwikpen (Bkc)) 0 unit SC Q6 [facility]; Protocol Last Admin: 06/09/18 06:24 Dose: 9 u Labetalol HCl (Trandate) 20 mg IV Q6H [facility] Last Admin: 06/09/18 02:10 Dose: 20 mg Methylprednisolone (Solu-Medrol) 40 mg IV Q12 [facility] Last Admin: 06/08/18 22:09 Dose: 40 mg Ondansetron HCl (Zofran) 4 mg IV Q6H PRN PRN PRN Reason: NAUSEA/VOMITING Sodium Chloride () 5 - 15 ml IV UD PRN PRN Reason: SALINE FLUSH Last Admin: 06/07/18 17:51 Dose: 10 ml Sodium Chloride () 10 - 40 ml IV UD PRN PRN Reason: MULTILUMEN/HICMAN CATH FLUSH Last Admin: 06/07/18 06:38 Dose: 10 ml Medical Necessity - Tobacco Use Smoking Status: Former smoker Tobacco Use: Cigarettes Assessment/Plan All Active Problems Respiratory failure with hypoxia (Acute) Acute exacerbation of chronic obstructive pulmonary disease (COPD) (Acute) Bronchospasm (Acute) Viral conjunctivitis (Acute) Allergic conjunctivitis (Acute) Chemosis of conjunctiva (Acute) Bradycardia (Acute) Hypotension (Acute) Decreased responsiveness (Acute) Acute hypoxic respiratory failure (Acute) Acute kidney injury (Acute) Prerenal azotemia (Resolved) This is a 72-year-old female who was admitted for COPD exacerbation with acute hypoxia. Chest x-ray did not show acute process. Respiratory panel was negative patient improved on bronchodilator, Solu-Medrol was weaned off oxygen. Patient had creatinine elevated and she was on HCTZ which was discontinued 1 or 2 days prior to admission by PCP. After that patient had rapid response with syncope with severe bradycardia and mild hypotension which led to the complex hospital course from [facility] to PCU and in ICU. Initially, patient was tried to resuscitate with IV fluid, atropine but did not improve and required IV dopamine and then Levophed and further intubated edge she was continued minimally responsive and mild hypoxia. She had a right IJ central venous catheter inserted. Later on, Dr. Clarke report transvenous pacemaker on same day. Subsequently, transvenous catheter has been removed. Patient is off the vasopressor support. 1. Cardiogenic shock most probably secondary to bradycardia and vasovagal syncope: Patient is still intubated. Seen by scale model maker. Hydralazine dose increased 200 mg 3 times daily. On amlodipine 10 mg daily. No need for IV Cardizem as per Dr. jones. 2D echo showed EF of 60%, with stage 2 diastolic dysfunction and normal LV systolic function 2. Acute hypoxic and hypercapnic respiratory failure due to probable COPD exacerbation and pneumonia: Klebsiella and Staphylococcus pneumonia: Patient was successfully extubated in the morning. Patient has lower extremity swelling and needs diuresis. Precedex drip discontinued. 3. MSSA sand Klebsiella pneumoniae community acquired pneumonia: On IV Unasyn. Chest x-ray showed scattered mild pulmonary opacities. 4. Bracycardia, likely medication induced: As mentioned above 5. KURT on CKD likely pre-renal due to medication induced hypotension and bradycardia Cr improving. BUN-111. Creatinine 1.74. nephrology on board; think it is likely due to ATN from hypotension; no need for TAX SERVICES MANAGER now kidney and bladder USG showed mild echogenic cortex of the kidneys which may be due to medical renal disease on IV lasix 40mg bid. monitor urine output. 6. Hypertensive urgency: Blood pressure is still high. On hydralazine 100 mg 3 times daily, Norvasc 10 mg daily. clonidine 0.1 mg 3 times daily added. 7. Type 2 diabetes mellitus: Metformin on hold on account of KURT. Insulin lantus adjusted to 20 Units HS and 15 units am breakfast Insulin sliding scale. Accu-Cheks every 6 hours. 8. GERD: on PPI. 9. Acute viral conjunctivitis: Resolved. 10. Mild hyponatremia: resolved. 11. Hyperlipidemia: On statin 12. Anemia: Iron panel showed normal iron level of 59 and iron saturation of 22.4. H&H about Nutrition: on tube feeding with Vitral AF 1.2 dar liquid at 65mls/hr DVT prophylaxis: renal dose of lovenox GI prophylaxis: on lansoprazole 30mg daily. Microbiology Past 72 Hours 06/02/18 20:45 Blood Culture (Wb) - Anticubital Left Blood Culture - Final No growth in 5 days. 06/02/18 20:45 Blood Culture (Wb) - Central Line Blood Culture - Final No growth in 5 days. 06/03/18 21:45 Urine Catheter - Catheter Urine Culture - Final Yeast, not Brina albicans 06/03/18 19:30 Sputum, Induced/Lukens Gram Stain - Final 06/03/18 19:30 Sputum, Induced/Lukens Respiratory Culture - Final Klebsiella pneumoniae sp pneum Staphylococcus aureus Laboratory Results 06/08/18 11:52: POC Glucose 203 H 06/08/18 16:49: POC Glucose 261 H 06/09/18 00:33: POC Glucose 235 H 06/09/18 05:45: Sodium 145, Potassium 4.3, Chloride 107, Carbon Dioxide 30.0, Anion Gap 8, BUN 99 H, Creatinine 1.49 H, Estim Creat Clear Calc 28.65, Est GFR (MDRD) Af Amer 44 L, Est GFR (MDRD) Non-Af 37 L, BUN/Creatinine Ratio 66.4 H, Glucose 295 H, Calcium 8.5 06/09/18 05:45: WBC 13.1 H, RBC 3.95 L, Hgb 10.8 L, Hct 33.8 L, MCV 85.6, MCH 27.3, MCHC 32.0, RDW 16.3 H, RDW Differential 50.5 H, Plt Count 437, MPV 9.7, Neut % (Auto) Not Reportable, Absolute Neuts (auto) 11.4 H, Absolute Lymphs (auto) 0.92, Total Counted 100, Neutrophils % (Manual) 79 H, Lymphocytes % (Manual) 7 L, Monocytes % (Manual) 6, Metamyelocytes % 7 H, Myelocytes % 1 H, Diff Path Review May foll, Platelet Estimate ADEQUATE, RBC Morphology RARE, Anisocytosis RARE 06/09/18 06:09: POC Glucose 265 H 06/09/18 06:16: Specimen Type ART, Sample Site L Radial, pH 7.42, Bicarbonate Actual 28.9 H, POC Total CO2 30, Base Excess 4 H, O2 Saturation 95, O2 % 35, ABG pCO2 44.1, ABG pO2 76, Abram Test POS, Respiration Rate 16, O2 Delivery Device Vent, Vent Mode VC+, Tidal Volume 450, POC PEEP 5, Blood Gas Notified Whom ICU MD, Blood Gas Notified Time 610 Code Visit Inpatient E&M: 48732 Subs Hosp L3
--- NOTE | 2018-06-09 07:56 | PN_ITS ---
Patient Problems: Active and Suspected Problems Respiratory failure with hypoxia (Acute) Acute exacerbation of chronic obstructive pulmonary disease (COPD) (Acute) Bronchospasm (Acute) Viral conjunctivitis (Acute) Allergic conjunctivitis (Acute) Chemosis of conjunctiva (Acute) Bradycardia (Acute) Hypotension (Acute) Decreased responsiveness (Acute) Acute hypoxic respiratory failure (Acute) Subjective: The patient is extubated in the morning. Awake and alert and can talk in full sentences. Patient has cough and can bring up phlegm. Blood pressure still high. Heart rate is controlled; controlled last night but got in 90s-100 at the time of extubation; expected. Vitals/I&O's: Vital Signs Temp Pulse Resp BP Pulse Ox 98.9 F 100 18 199/75 H 95 06/09/18 06:00 06/09/18 06:45 06/09/18 06:45 06/09/18 06:39 06/09/18 06:45 Oxygen Flow Rate (L/min) 4 Oxygen Delivery Method Nasal Cannula Weight: 260 lb 9.382 oz Body Mass Index (BMI) 43.9 Finger Stick Blood Glucose 155 Intake and Output for Last 24 Hours 06/07/18 06/08/18 06/09/18 23:59 23:59 23:59 Intake Total 1135 / 1135 3067 / 3067 1930 / 1930 Output Total 2400 / 2400 4100 / 4100 2200 / 2200 Balance -1265 / -1265 -1033 / -1033 -270 / -270 General: Alert, Oriented x3, Cooperative HEENT: Atraumatic, PERRLA, EOMI, Normocephalic Neck: Supple, No JVD, Negative Carotid Bruits Lungs: No rales, Diminished - Air entry diminished in bilateral lung bases, Rhonchi Cardiovascular: Regular rate, Regular Rhythm, Normal S1, Normal S2, No murmurs Abdomen: Bowel Sounds Present, Soft, Non Tender, Non-Distended Extremities: Capillary Refill Less than 3 Seconds, Edema - improved Skin: No rashes, No breakdown Musculoskeletal: No Tenderness to Palpation of Joints or Extremities, Arthritic Changes Lymphatic: No Cervical, Supraclavicular, or Inguinal Adenopathy Neurological: Cranial nerves II-XII grossly intact, Deep Tendon Reflexes 2+/4 and Symmetrical, Neuro grossly intact Psych/Mental Status: Normal Affect, Appropriate Microbiology Past 72 Hours 06/02/18 20:45 Blood Culture (Wb) - Anticubital Left Blood Culture - Final No growth in 5 days. 06/02/18 20:45 Blood Culture (Wb) - Central Line Blood Culture - Final No growth in 5 days. 06/03/18 21:45 Urine Catheter - Catheter Urine Culture - Final Yeast, not Brina albicans 06/03/18 19:30 Sputum, Induced/Lukens Gram Stain - Final 06/03/18 19:30 Sputum, Induced/Lukens Respiratory Culture - Final Klebsiella pneumoniae sp pneum Staphylococcus aureus Laboratory Results 06/08/18 11:52: POC Glucose 203 H 06/08/18 16:49: POC Glucose 261 H 06/09/18 00:33: POC Glucose 235 H 06/09/18 05:45: Sodium 145, Potassium 4.3, Chloride 107, Carbon Dioxide 30.0, Anion Gap 8, BUN 99 H, Creatinine 1.49 H, Estim Creat Clear Calc 28.65, Est GFR (MDRD) Af Amer 44 L, Est GFR (MDRD) Non-Af 37 L, BUN/Creatinine Ratio 66.4 H, Glucose 295 H, Calcium 8.5 06/09/18 05:45: WBC 13.1 H, RBC 3.95 L, Hgb 10.8 L, Hct 33.8 L, MCV 85.6, MCH 27.3, MCHC 32.0, RDW 16.3 H, RDW Differential 50.5 H, Plt Count 437, MPV 9.7, Neut % (Auto) Not Reportable, Absolute Neuts (auto) 11.4 H, Absolute Lymphs (auto) 0.92, Total Counted 100, Neutrophils % (Manual) 79 H, Lymphocytes % (Manual) 7 L, Monocytes % (Manual) 6, Metamyelocytes % 7 H, Myelocytes % 1 H, Diff Path Review July, Platelet Estimate ADEQUATE, RBC Morphology RARE, Anisocytosis RARE 06/09/18 06:09: POC Glucose 265 H 06/09/18 06:16: Specimen Type ART, Sample Site L Radial, pH 7.42, Bicarbonate Ac tual 28.9 H, POC Total CO2 30, Base Excess 4 H, O2 Saturation 95, O2 % 35, ABG pCO2 44.1, ABG pO2 76, Abram Test POS, Respiration Rate 16, O2 Delivery Device Vent, Vent Mode VC+, Tidal Volume 450, POC PEEP 5, Blood Gas Notified Whom ICU MD, Blood Gas Notified Time 610 Current Medications Albuterol Sulfate (Ventolin Aerosols) 2.5 mg INHALATION Q2H PRN PRN PRN Reason: SHORTNESS OF BREATH Albuterol/Ipratropium (Duoneb) 3 ml INHALATION Q4HWA.RT [facility] Last Admin: 06/09/18 06:37 Dose: 3 ml Amlodipine Besylate (Norvasc) 10 mg GT DAILY [facility] Last Admin: 06/08/18 08:52 Dose: 10 mg Atorvastatin Calcium (Lipitor) 80 mg GT DAILY@2200 [facility] Last Admin: 06/08/18 22:09 Dose: 80 mg Chlorhexidine Gluconate () 15 ml PO BID [facility] Last Admin: 06/08/18 22:08 Dose: 15 ml Chlorhexidine Gluconate () 1 each TOPICAL DAILY [facility] Last Admin: 06/09/18 02:11 Dose: 1 each Dextrose (D50w Syringe) 0 gm IV X1 PRN; Protocol PRN Reason: Hypoglycemia Enoxaparin Sodium (Lovenox) 30 mg SC DAILY@1000 [facility] Last Admin: 06/08/18 08:50 Dose: 30 mg Famotidine (Pepcid) 20 mg GT DAILY [facility] Last Admin: 06/08/18 08:52 Dose: 20 mg Furosemide (Lasix) 40 mg IV BID@1000,1800 [facility] Last Admin: 06/08/18 17:39 Dose: 40 mg Gabapentin (Neurontin) 300 mg GT BID [facility] Last Admin: 06/08/18 22:09 Dose: 300 mg Glucagon () 1 mg IM .X1 PRN PRN Reason: Hypoglycemia Hydralazine HCl (Apresoline Iv) 20 mg IV Q4H PRN PRN PRN Reason: BLOOD PRESSURE Last Admin: 06/08/18 14:28 Dose: 20 mg Hydralazine HCl (Apresoline) 100 mg PO TID [facility] Last Admin: 06/09/18 06:39 Dose: 100 mg Sodium Chloride () 250 mls @ 15 mls/hr IV .[id number] PRN PRN Reason: SALINE FLUSH Last Admin: 06/08/18 04:42 Dose: 15 mls/hr Enteral Nutritional Formula (Vital Af 1.2 Dar Liquid) 1,000 mls @ 65 mls/hr GT .[id number] [facility] Last Admin: 06/09/18 06:36 Dose: Not Given Ampicillin Sodium/Sulbactam (Sodium 3 gm/ Sodium Chloride) 112 mls @ 150 mls/hr IV Q12 [facility] Stop: 06/11/18 22:45 Last Admin: 06/08/18 22:10 Dose: 150 mls/hr Fentanyl () 100 mls @ 2.5 mls/hr CONT INF .Q40H [facility] Last Admin: 06/08/18 19:31 Dose: 2.5 mls/hr Dexmedetomidine HCl 1,000 mcg/ (Sodium Chloride) 250 mls @ 14.94 mls/hr CONT INF .[id number] [facility] Last Admin: 06/09/18 02:45 Dose: 14.94 mls/hr Insulin Glargine (Lantus (Bkc)) 20 units SC 1800 [facility] Last Admin: 06/08/18 17:37 Dose: 20 u Insulin Human Lispro (Humalog Kwikpen (Bkc)) 0 unit SC Q6 [facility]; Protocol Last Admin: 06/09/18 06:24 Dose: 9 u Labetalol HCl (Trandate) 20 mg IV Q6H [facility] Last Admin: 06/09/18 02:10 Dose: 20 mg Methylprednisolone (Solu-Medrol) 40 mg IV Q12 [facility] Last Admin: 06/08/18 22:09 Dose: 40 mg Ondansetron HCl (Zofran) 4 mg IV Q6H PRN PRN PRN Reason: NAUSEA/VOMITING Sodium Chloride () 5 - 15 ml IV UD PRN PRN Reason: SALINE FLUSH Last Admin: 06/07/18 17:51 Dose: 10 ml Sodium Chloride () 10 - 40 ml IV UD PRN PRN Reason: MULTILUMEN/HICMAN CATH FLUSH Last Admin: 06/07/18 06:38 Dose: 10 ml Medical Necessity - Tobacco Use Smoking Status: Former smoker Tobacco Use: Cigarettes Assessment/Plan All Active Problems Respiratory failure with hypoxia (Acute) Acute exacerbation of chronic obstructive pulmonary disease (COPD) (Acute) Bronchospasm (Acute) Viral conjunctivitis (Acute) Allergic conjunctivitis (Acute) Chemosis of conjunctiva (Acute) Bradycardia (Acute) Hypotension (Acute) Decreased responsiveness (Acute) Acute hypoxic respiratory failure (Acute) Acute kidney injury (Acute) Prerenal azotemia (Resolved) This is a 72-year-old female who was admitted for COPD exacerbation with acute hypoxia. Chest x-ray did not show acute process. Respiratory panel was negative patient improved on bronchodilator, Solu-Medrol was weaned off oxygen. Patient had creatinine elevated and she was on HCTZ which was discontinued 1 or 2 days prior to admission by PCP. After that patient had rapid response with syncope with severe bradycardia and mild hypotension which led to the complex hospital course from [facility] to PCU and in ICU. Initially, patient was tried to resuscitate with IV fluid, atropine but did not improve and required IV dopamine and then Levophed and further intubated edge she was continued minimally responsive and mild hypoxia. She had a right IJ central venous catheter inserted. Later on, Dr. Clarke report transvenous pacemaker on same day. Subsequently, transvenous catheter has been removed. Patient is off the vasopressor support. 1. Cardiogenic shock most probably secondary to bradycardia and vasovagal syncope: Patient is still intubated. Seen by frame table operator helper. Hydralazine dose increased 200 mg 3 times daily. On amlodipine 10 mg daily. No need for IV Cardizem as per Dr. jones. 2D echo showed EF of 60%, with stage 2 diastolic dysfunction and normal LV systolic function * 2. Acute hypoxic and hypercapnic respiratory failure due to probable COPD exacerbation and pneumonia: Klebsiella and Staphylococcus pneumonia: Patient was successfully extubated in the morning. Patient has lower extremity swelling and needs diuresis. Precedex drip discontinued. 3. MSSA sand Klebsiella pneumoniae community acquired pneumonia: On IV Unasyn. Chest x-ray showed scattered mild pulmonary opacities. 4. Bracycardia, likely medication induced: As mentioned above 5. KURT on CKD * likely pre-renal due to medication induced hypotension and bradycardia * Cr improving. BUN-111. Creatinine 1.74. * nephrology on board; think it is likely due to ATN from hypotension; no need for CONFLICT RESOLUTION PROFESSIONAL now * kidney and bladder USG showed mild echogenic cortex of the kidneys which may be due to medical renal disease * on IV lasix 40mg bid. * monitor urine output. 6. Hypertensive urgency: Blood pressure is still high. On hydralazine 100 mg 3 times daily, Norvasc 10 mg daily. clonidine 0.1 mg 3 times daily added. 7. Type 2 diabetes mellitus: Metformin on hold on account of KURT. Insulin lantus adjusted to 20 Units HS and 15 units am breakfast Insulin sliding scale. Accu-Cheks every 6 hours. 8. GERD: on PPI. 9. Acute viral conjunctivitis: Resolved. 10. Mild hyponatremia: resolved. 11. Hyperlipidemia: On statin 12. Anemia: Iron panel showed normal iron level of 59 and iron saturation of 22.4. H&H about Nutrition: on tube feeding with Vitral AF 1.2 dar liquid at 65mls/hr DVT prophylaxis: renal dose of lovenox GI prophylaxis: on lansoprazole 30mg daily. Microbiology Past 72 Hours 06/02/18 20:45 Blood Culture (Wb) - Anticubital Left Blood Culture - Final No growth in 5 days. 06/02/18 20:45 Blood Culture (Wb) - Central Line Blood Culture - Final No growth in 5 days. 06/03/18 21:45 Urine Catheter - Catheter Urine Culture - Final Yeast, not Brina albicans 06/03/18 19:30 Sputum, Induced/Lukens Gram Stain - Final 06/03/18 19:30 Sputum, Induced/Lukens Respiratory Culture - Final Klebsiella pneumoniae sp pneum Staphylococcus aureus Laboratory Results 06/08/18 11:52: POC Glucose 203 H 06/08/18 16:49: POC Glucose 261 H 06/09/18 00:33: POC Glucose 235 H 06/09/18 05:45: Sodium 145, Potassium 4.3, Chloride 107, Carbon Dioxide 30.0, Anion Gap 8, BUN 99 H, Creatinine 1.49 H, Estim Creat Clear Calc 28.65, Est GFR (MDRD) Af Amer 44 L, Est GFR (MDRD) Non-Af 37 L, BUN/Creatinine Ratio 66.4 H, Glucose 295 H, Calcium 8.5 06/09/18 05:45: WBC 13.1 H, RBC 3.95 L, Hgb 10.8 L, Hct 33.8 L, MCV 85.6, MCH 27.3, MCHC 32.0, RDW 16.3 H, RDW Differential 50.5 H, Plt Count 437, MPV 9.7, Neut % (Auto) Not Reportable, Absolute Neuts (auto) 11.4 H, Absolute Lymphs ( auto) 0.92, Total Counted 100, Neutrophils % (Manual) 79 H, Lymphocytes % (Manual) 7 L, Monocytes % (Manual) 6, Metamyelocytes % 7 H, Myelocytes % 1 H, Diff Path Review May foll, Platelet Estimate ADEQUATE, RBC Morphology RARE, Anisocytosis RARE 06/09/18 06:09: POC Glucose 265 H 06/09/18 06:16: Specimen Type ART, Sample Site L Radial, pH 7.42, Bicarbonate Actual 28.9 H, POC Total CO2 30, Base Excess 4 H, O2 Saturation 95, O2 % 35, ABG pCO2 44.1, ABG pO2 76, Abram Test POS, Respiration Rate 16, O2 Delivery Device Vent, Vent Mode VC+, Tidal Volume 450, POC PEEP 5, Blood Gas Notified Whom ICU MD, Blood Gas Notified Time 610 Code Visit Inpatient E&M: 79216 Subs Hosp L3
--- NOTE | 2018-06-09 08:09 | PCM.PN.REN ---
Patient Problems: Active and Suspected Problems Respiratory failure with hypoxia (Acute) Acute exacerbation of chronic obstructive pulmonary disease (COPD) (Acute) Bronchospasm (Acute) Viral conjunctivitis (Acute) Allergic conjunctivitis (Acute) Chemosis of conjunctiva (Acute) Bradycardia (Acute) Hypotension (Acute) Decreased responsiveness (Acute) Acute hypoxic respiratory failure (Acute) Subjective: Following for KURT. Extubated since I saw her yesterday morning. Pt denies CP, SOB or nausea. - Physical Exam General: Alert, Oriented x3 HEENT: Atraumatic Oral: Moist Mucosa Neck: Supple Lungs: Clear to auscultation - anteriorly Cardiovascular: Normal S1, Normal S2, No murmurs Abdomen: Bowel Sounds Present, Soft, Non Tender Extremities: Edema - 2+ Vital Signs Temp Pulse Resp BP Pulse Ox 98.9 F 100 18 199/75 H 95 06/09/18 06:00 06/09/18 06:45 06/09/18 06:45 06/09/18 06:39 06/09/18 06:45 Oxygen Flow Rate (L/min) 4 Oxygen Delivery Method Nasal Cannula Weight: 118.2 kg Body Mass Index (BMI) 43.9 Finger Stick Blood Glucose 155 Intake and Output for Last 24 Hours 06/07/18 06/08/18 06/09/18 23:59 23:59 23:59 Intake Total 1135 / 1135 3067 / 3067 1930 / 1930 Output Total 2400 / 2400 4100 / 4100 2200 / 2200 Balance -1265 / -1265 -1033 / -1033 -270 / -270 Microbiology Past 72 Hours 06/02/18 20:45 Blood Culture - Final Blood Culture (Wb) - Anticubital Left No growth in 5 days. 06/02/18 20:45 Blood Culture - Final Blood Culture (Wb) - Central Line No growth in 5 days. 06/03/18 21:45 Urine Culture - Final Urine Catheter - Catheter Yeast, not Brina albicans 06/03/18 19:30 Gram Stain - Final Sputum, Induced/Lukens Respiratory Culture - Final Klebsiella pneumoniae sp pneum Staphylococcus aureus Laboratory Tests Past 24 Hrs 06/09/18 06/09/18 06/09/18 05:45 05:45 06:16 WBC 13.1 H RBC 3.95 L Hgb 10.8 L Hct 33.8 L MCV 85.6 MCH 27.3 MCHC 32.0 RDW 16.3 H RDW Differential 50.5 H Plt Count 437 MPV 9.7 Neut % (Auto) Not Reportable Absolute Neuts (auto) 11.4 H Absolute Lymphs (auto) 0.92 Total Counted 100 Neutrophils % (Manual) 79 H Lymphocytes % (Manual) 7 L Monocytes % (Manual) 6 Metamyelocytes % 7 H Myelocytes % 1 H Diff Path Review May foll Platelet Estimate ADEQUATE RBC Morphology RARE Anisocytosis RARE Specimen Type ART Sample Site L Radial pH 7.42 Bicarbonate Actual 28.9 H POC Total CO2 30 Base Excess 4 H O2 Saturation 95 O2 % 35 ABG pCO2 44.1 ABG pO2 76 Abram Test POS Respiration Rate 16 O2 Delivery Device Vent Vent Mode VC+ Tidal Volume 450 POC PEEP 5 Blood Gas Notified Whom ICU MD Blood Gas Notified Time 610 Sodium 145 Potassium 4.3 Chloride 107 Carbon Dioxide 30.0 Anion Gap 8 BUN 99 H Creatinine 1.49 H Estim Creat Clear Calc 28.65 Est GFR (MDRD) Af Amer 44 L Est GFR (MDRD) Non-Af 37 L BUN/Creatinine Ratio 66.4 H Glucose 295 H Calcium 8.5 POC Glucose 06/09/18 06/09/18 06/08/18 06:09 00:33 16:49 POC Glucose 265 H 235 H 261 H 06/08/18 11:52 POC Glucose 203 H Medical Necessity - Tobacco Use Smoking Status: Former smoker Tobacco Use: Cigarettes Assessment/Plan All Active Problems Respiratory failure with hypoxia (Acute) Acute exacerbation of chronic obstructive pulmonary disease (COPD) (Acute) Bronchospasm (Acute) Viral conjunctivitis (Acute) Allergic conjunctivitis (Acute) Chemosis of conjunctiva (Acute) Bradycardia (Acute) Hypotension (Acute) Decreased responsiveness (Acute) Acute hypoxic respiratory failure (Acute) Acute kidney injury (Acute) Prerenal azotemia (Resolved) 1- KURT on CKD stage 3. Baseline Cr 1.1-1.3 mg/dl KURT is due to ischemic ATN related to sepsis. I doubt another KURT etiology for now Renal function is improving. Last creatinine trend 3.3->2.37->1.74->1.49 in the last 4 days. Elevated BUN is likely related to steroid, NG tube feeding and diuresis. BUN is also improving. Patient is responding well to Lasix. I am okay with current dose of Lasix. Keep mean arterial pressure more than 65. Will continue to monitor kidney function and clinical status 2- Acute RF from pneumonia/COPD exacerbation. Off vent. O>I with diuresis. 3- cardiogenic shock from medications induced bradycardia. Resolved. Off pressors. 4-hypertension. Blood pressure is elevated. Continue diuresis. Add scheduled clonidine today. Add back losartan once Cr is back to baseline. plan of care was d/w with Dr. Ferreira
--- NOTE | 2018-06-09 09:13 | PN.CARD_ITS ---
Subjectve: Patient seen and evaluated. Has been successfully extubated. She is conversant this morning. Objective: Vital Signs Temp Pulse Resp BP Pulse Ox 98.9 F 100 18 199/75 H 95 06/09/18 06:00 06/09/18 06:45 06/09/18 06:45 06/09/18 06:39 06/09/18 06:45 Oxygen Flow Rate (L/min) 4 Oxygen Delivery Method Nasal Cannula Weight: 260 lb 9.382 oz Body Mass Index (BMI) 43.9 Finger Stick Blood Glucose 155 Intake and Output for Last 24 Hours 06/07/18 06/08/18 06/09/18 23:59 23:59 23:59 Intake Total 1135 / 1135 3067 / 3067 1930 / 1930 Output Total 2400 / 2400 4100 / 4100 2200 / 2200 Balance -1265 / -1265 -1033 / -1033 -270 / -270 General: Awake, Alert, Oriented x 3 HEENT: PERRL, EOMI, Sclera Non Icteric Neck: Supple, Good ROM, No Lymph Node Enlargement Lungs: Clear to auscultation Cardiovascular: Regular Rhythm, Normal S1, Normal S2, No Murmurs, No Rubs, No Gallops Vascular: No Carotid Bruits, Normal Femoral Pulses, Normal Radial Pulses, Normal Dorsalis Pedal Pulse, Normal Posterior Tibial Pulses Abdomen: Bowel Sounds Present, Soft, Non Tender, No HSM, No Organomegaly Extremities: No Cyanosis, No Clubbing, Bilateral Edema +1 Musculoskeletal: No Erythema Lymphatic: No Lymph Node Enlargement Neurological: No Focal Motor or Sensory Deficit Psych/Mental Status: Appropriate 06/09/18 05:45: Sodium 145, Potassium 4.3, Chloride 107, Carbon Dioxide 30.0, Anion Gap 8, BUN 99 H, Creatinine 1.49 H, Est GFR (MDRD) Af Amer 44 L, Est GFR (MDRD) Non-Af 37 L, BUN/Creatinine Ratio 66.4 H, Glucose 295 H, Calcium 8.5 06/09/18 05:45: WBC 13.1 H, RBC 3.95 L, Hgb 10.8 L, Hct 33.8 L, MCV 85.6, MCH 27.3, MCHC 32.0, RDW 16.3 H, RDW Differential 50.5 H, Plt Count 437, MPV 9.7, Neut % (Auto) Not Reportable, Absolute Neuts (auto) 11.4 H, Total Counted 100, Neutrophils % (Manual) 79 H, Lymphocytes % (Manual) 7 L, Monocytes % (Manual) 6, Metamyelocytes % 7 H, Myelocytes % 1 H 06/09/18 06:16: pH 7.42, Bicarbonate Actual 28.9 H, POC Total CO2 30, Base Excess 4 H, O2 Saturation 95, ABG pCO2 44.1, ABG pO2 76, Abram Test POS Rhythm: EKG: ECHO: Stress Test: Cardiac Cath: PCI: CT Surgery: Holter monitor: EPS: PPM: CXR: Chest CT Scan: Medical Necessity - Tobacco Use Smoking Status: Former smoker Tobacco Use: Cigarettes Assessment/Plan 1. Bradycardia/hypotension The patient remains without any rate limiting medications, IV vasopressor support, or temporary transvenous pacemaker support.The patient is maintaining a sinus rhythm. 2. CAD status post CABG She is stable without any indication of coronary ischemia. She has undergone evaluation with formal transthoracic echocardiogram during sinus rhythm. Her overall left ventricular size, wall motion, and systolic function was considered normal with an LVEF of 60%. 3. Hyperlipidemia She will continue lipid-lowering therapy as deemed appropriate. 4. Hypertension She has now become hypertensive. Accommodation will be to continue the hydralazine at 100 mg 3 times a day, as well as Norvasc 10 mg a day. After conferring with bus and trolley inspecting dispatcher as well as certified legal investigator will start the patient on clonidine 0.1 mg 3 times a day and may need to advance as appropriate. May be able to start losartan in the next day or so. Thank you for allowing me to participate in the care of your patient. Please don't hesitate to call if any issues arise
[2018-06-09] MEDS: Furosemide 40 MG/4 ML Vial IV ×2 (09:28→17:30)
[2018-06-09] MEDS: Famotidine 20 MG Tablet GT (09:31)
[2018-06-09] MEDS: Gabapentin 300 MG Capsule GT (09:33)
[2018-06-09] MEDS: Enoxaparin 30 MG/0.3 ML Syringe SC (09:34)
[2018-06-09] MEDS: amLODIPine 10 MG Tablet GT (09:35)
[2018-06-09 11:45] LABS: Bedside Glucose 171 mg/dL (70-110)
[2018-06-09] MEDS: hydrALAZINE 20 MG/ML Vial IV (11:51)
[2018-06-09] MEDS: predniSONE 20 MG Tablet 40 MG PO (11:56)
[2018-06-09 16:35] LABS: Bedside Glucose 198 mg/dL (70-110)
[2018-06-09] MEDS: Gabapentin 300 MG Capsule PO (18:39)
[2018-06-09] MEDS: Atorvastatin Calcium 80 MG Tablet GT (21:52)
[2018-06-09] MEDS: cloNIDine HCl 0.2 MG Tablet PO (21:56)
[2018-06-09] MEDS: MELATONIN 10 MG TABLET 5 MG PO (23:05)
[2018-06-09 23:50] LABS: Bedside Glucose 182 mg/dL (70-110)
[2018-06-10] VITALS (28 sets, daily range): BP systolic 141–192; BP diastolic 57–89; PULSE 70–92; RESP 12–81; TEMP 35.5–36.8; O2SAT 92–97
[2018-06-10] MEDS: 0.9% NaCl Peripheral Flush Adult/Peds IV ×3 (04:05→21:58)
[2018-06-10] MEDS: oxyCODONE 5 MG Tablet PO (04:26)
[2018-06-10 04:29] LABS: Hematocrit 34.3 % (37-47); Hemoglobin 10.8 g/dl (12.0-15.0); Mean Corp Hgb Conc 31.5 g/gl (32-36); Mean Corpuscular Hgb 27.4 pg (27.0-32.0); Mean Corpuscular Volume 87.1 fL (81-99); Mean Platelet Vol. 9.8 fl (6.2-12.0); Platelet Count 446 K/mm3 (150-450); RBC Distribution Width CV 16.8 % (11.6-14.6); RBC Distribution Width SD 51.2 fl (35.1-43.9); Red Blood Count 3.94 M/mm3 (4.2-5.4); White Blood Count 15.3 K/mm3 (4.4-11.0)
[2018-06-10 04:36] LABS: Anion Gap 7 (5-15); BUN 85 mg/dL (7-18); BUN/Creat Ratio 63.4 RATIO (10-20); Calcium,Total 8.9 mg/dL (8.5-10.1); Chloride 111 mmol/L (98-107); Creatinine, Serum 1.34 mg/dL (0.55-1.02); Differential Indicated MANUAL DIFF; EST Glomerular Filtration Rate 41 mL/min (>60); Est Glom Filt Rate - Afr Amer 50 mL/min (>60); Estimated Creatinine Clearance 31.85 ml/min; Glucose 149 mg/dL (74-106); POSITIVE COUNT YES; POSITIVE DIFFERENTIAL YES; POSITIVE MORPHOLOGY YES; Sodium Level 151 mmol/L (136-145)
[2018-06-10] MEDS: cloNIDine HCl 0.2 MG Tablet PO ×2 (05:06→13:52)
[2018-06-10] MEDS: hydrALAZINE 50 MG Tablet 100 MG PO ×3 (05:06→22:03)
[2018-06-10 05:16] LABS: Bedside Glucose 150 mg/dL (70-110)
[2018-06-10 06:07] LABS: Lymphocyte 12 % (19-41); Monocyte 8 % (0-10); Neutrophil-Band 1 % (0-5); Neutrophil-Segmented 79 % (47-70); Platelet Estimate ADEQUATE (ADEQ); Reactive Lymphocyte 2+; Red Cell Morphology NORM C+C NORMAL (NORM C&C); Total Cells Counted 100 (MANUAL DIFF)
[2018-06-10 06:08] LABS: Absolute Lymphocyte Count 1.84 X10^3/ul (0.83-4.51); Absolute Neutrophil Count 12.2 X10^3/uL (2.0-7.7); Lymphocyte # 1.84 X10^3/ul (4.0); Neutrophil # 12.24 X10^3/uL (2.7-7.7)
--- NOTE | 2018-06-10 06:17 | PN_ITS ---
Subjective: The patient was seen and examined at the bedside this morning. Events from the last 24 hours have been reviewed. The patient is currently afebrile, hemodynamically stable and maintaining appropriate oxygen saturations on 2 L/min via nasal cannula. The patient remains persistently hypertensive. The patient was noted to be overall net -2.2 L yesterday. She is now noted to be overall net +4.2 L for the admission. Sodium was high this morning at 151. Creatinine is improving. The patient reports feeling warm this morning. Objective: The patient's most recent lab work, culture data and imaging studies have all been personally reviewed. Sputum culture dated June 03 was positive for both Klebsiella pneumonia and MSSA. Surface echocardiogram dated June 03 revealed stage II diastolic dysfunction with an ejection fraction of 60%. Pulmonary artery systolic pressure was estimated to be 44 mmHg. General: Alert, Cooperative, No apparent distress HEENT: Atraumatic, PERRLA, Normocephalic Oral: Dry Mucosa Neck: Supple, No Nodes, Trachea Midline Lungs: No rhonchi, No wheeze, No rales, Diminished Cardiovascular: Regular rate, Regular Rhythm, Normal S1, Normal S2, No murmurs Abdomen: Bowel Sounds Present, Soft, Non Tender, Obese Extremities: No clubbing, No cyanosis, Edema Skin: - - No significant change from previous Musculoskeletal: No Tenderness to Palpation of Joints or Extremities Lymphatic: No Cervical, Supraclavicular, or Inguinal Adenopathy Neurological: Cranial nerves II-XII grossly intact, Neuro grossly intact Psych/Mental Status: Normal Affect, Appropriate Vital Signs Temp Pulse Resp BP Pulse Ox 36.3 C L 76 13 164/58 H 94 06/10/18 00:00 06/10/18 06:00 06/10/18 06:00 06/10/18 06:00 06/10/18 06:00 Oxygen Flow Rate (L/min) 2 Oxygen Delivery Method Nasal Cannula Weight: 260 lb 9.382 oz Body Mass Index (BMI) 43.9 Finger Stick Blood Glucose 155 Intake and Output for Last 24 Hours 06/08/18 06/09/18 06/10/18 23:59 23:59 23:59 Intake Total 3067 / 3067 2480 / 2480 312 / 312 Output Total 4100 / 4100 4750 / 4750 2310 / 2310 Balance -1033 / -1033 -2270 / -2270 -1997 Labs (Last 48 Hours) 06/08/18 06/08/18 06/08/18 06:28 06:52 11:52 WBC RBC Hgb Hct MCV MCH MCHC RDW RDW Differential Plt Count MPV Neut % (Auto) Absolute Neuts (auto) Absolute Lymphs (auto) Total Counted Neutrophils % (Manual) Band Neutrophils % Lymphocytes % (Manual) Monocytes % (Manual) Metamyelocytes % Myelocytes % Diff Path Review Reactive Lymphocytes Platelet Estimate RBC Morphology Anisocytosis Specimen Type ART Sample Site R Radial pH 7.40 Bicarbonate Actual 24.9 POC Total CO2 26 Base Excess 0 O2 Saturation 91 L O2 % 35 ABG pCO2 40.3 ABG pO2 62 L Abram Test POS Respiration Rate O2 Delivery Device Vent Vent Mode CPAP PS Tidal Volume POC PEEP 5 POC Pressure Suppt 5 Blood Gas Notified Whom ICU MD Blood Gas Notified Time 650 Sodium Potassium Chloride Carbon Dioxide Anion Gap BUN Creatinine Estim Creat Clear Calc Est GFR (MDRD) Af Amer Est GFR (MDRD) Non-Af BUN/Creatinine Ratio Glucose Calcium POC Glucose 260 H 203 H 06/08/18 06/09/18 06/09/18 16:49 00:33 05:45 WBC RBC Hgb Hct MCV MCH MCHC RDW RDW Differential Plt Count MPV Neut % (Auto) Absolute Neuts (auto) Absolute Lymphs (auto) Total Counted Neutrophils % (Manual) Band Neutrophils % Lymphocytes % (Manual) Monocytes % (Manual) Metamyelocytes % Myelocytes % Diff Path Review Reactive Lymphocytes Platelet Estimate RBC Morphology Anisocytosis Specimen Type Sample Site pH Bicarbonate Actual POC Total CO2 Base Excess O2 Saturation O2 % ABG pCO2 ABG pO2 Abram Test Respiration Rate O2 Delivery Device Vent Mode Tidal Volume POC PEEP POC Pressure Suppt Blood Gas Notified Whom Blood Gas Notified Time Sodium 145 Potassium 4.3 Chloride 107 Carbon Dioxide 30.0 Anion Gap 8 BUN 99 H Creatinine 1.49 H Estim Creat Clear Calc 28.65 Est GFR (MDRD) Af Amer 44 L Est GFR (MDRD) Non-Af 37 L BUN/Creatinine Ratio 66.4 H Glucose 295 H Calcium 8.5 POC Glucose 261 H 235 H 06/09/18 06/09/18 06/09/18 05:45 06:09 06:16 WBC 13.1 H RBC 3.95 L Hgb 10.8 L Hct 33.8 L MCV 85.6 MCH 27.3 MCHC 32.0 RDW 16.3 H RDW Differential 50.5 H Plt Count 437 MPV 9.7 Neut % (Auto) Not Reportable Absolute Neuts (auto) 11.4 H Absolute Lymphs (auto) 0.92 Total Counted 100 Neutrophils % (Manual) 79 H Band Neutrophils % Lymphocytes % (Manual) 7 L Monocytes % (Manual) 6 Metamyelocytes % 7 H Myelocytes % 1 H Diff Path Review May foll Reactive Lymphocytes Platelet Estimate ADEQUATE RBC Morphology RARE Anisocytosis RARE Specimen Type ART Sample Site L Radial pH 7.42 Bicarbonate Actual 28.9 H POC Total CO2 30 Base Excess 4 H O2 Saturation 95 O2 % 35 ABG pCO2 44.1 ABG pO2 76 Abram Test POS Respiration Rate 16 O2 Delivery Device Vent Vent Mode VC+ Tidal Volume 450 POC PEEP 5 POC Pressure Suppt Blood Gas Notified Whom ICU MD Blood Gas Notified Time 610 Sodium Potassium Chloride Carbon Dioxide Anion Gap BUN Creatinine Estim Creat Clear Calc Est GFR (MDRD) Af Amer Est GFR (MDRD) Non-Af BUN/Creatinine Ratio Glucose Calcium POC Glucose 265 H 06/09/18 06/09/18 06/09/18 11:39 16:33 23:42 WBC RBC Hgb Hct MCV MCH MCHC RDW RDW Differential Plt Count MPV Neut % (Auto) Absolute Neuts (auto) Absolute Lymphs (auto) Total Counted Neutrophils % (Manual) Band Neutrophils % Lymphocytes % (Manual) Monocytes % (Manual) Metamyelocytes % Myelocytes % Diff Path Review Reactive Lymphocytes Platelet Estimate RBC Morphology Anisocytosis Specimen Type Sample Site pH Bicarbonate Actual POC Total CO2 Base Excess O2 Saturation O2 % ABG pCO2 ABG pO2 Abram Test Respiration Rate O2 Delivery Device Vent Mode Tidal Volume POC PEEP POC Pressure Suppt Blood Gas Notified Whom Blood Gas Notified Time Sodium Potassium Chloride Carbon Dioxide Anion Gap BUN Creatinine Estim Creat Clear Calc Est GFR (MDRD) Af Amer Est GFR (MDRD) Non-Af BUN/Creatinine Ratio Glucose Calcium POC Glucose 171 H 198 H 182 H 06/10/18 06/10/18 06/10/18 04:10 04:10 05:06 WBC 15.3 H RBC 3.94 L Hgb 10.8 L Hct 34.3 L MCV 87.1 MCH 27.4 MCHC 31.5 L RDW 16.8 H RDW Differential 51.2 H Plt Count 446 MPV 9.8 Neut % (Auto) Not Reportable Absolute Neuts (auto) 12.2 H Absolute Lymphs (auto) 1.84 Total Counted 100 Neutrophils % (Manual) 79 H Band Neutrophils % 1 Lymphocytes % (Manual) 12 L Monocytes % (Manual) 8 Metamyelocytes % Myelocytes % Diff Path Review May foll Reactive Lymphocytes 2+ Platelet Estimate ADEQUATE RBC Morphology NORM C+C Anisocytosis Specimen Type Sample Site pH Bicarbonate Actual POC Total CO2 Base Excess O2 Saturation O2 % ABG pCO2 ABG pO2 Abram Test Respiration Rate O2 Delivery Device Vent Mode Tidal Volume POC PEEP POC Pressure Suppt Blood Gas Notified Whom Blood Gas Notified Time Sodium 151 H Potassium 4.0 Chloride 111 H Carbon Dioxide 33.0 H Anion Gap 7 BUN 85 H Creatinine 1.34 H Estim Creat Clear Calc 31.85 Est GFR (MDRD) Af Amer 50 L Est GFR (MDRD) Non-Af 41 L BUN/Creatinine Ratio 63.4 H Glucose 149 H Calcium 8.9 POC Glucose 150 H Microbiology 06/02/18 20:45 Blood Culture (Wb) - Anticubital Left Blood Culture - Final No growth in 5 days. 06/02/18 20:45 Blood Culture (Wb) - Central Line Blood Culture - Final No growth in 5 days. Clinical Impression(s) from Imaging Studies Chest X-Ray 06/01/18 10:35 IMPRESSION: No acute cardiopulmonary disease. Electronically Signed: Mike Toussaint DO at 11:43 EDT Tel , Service support , Chest X-Ray 06/02/18 17:28 IMPRESSION: Right IJ line terminates in the SVC. No demonstrated pneumothorax. Electronically Signed: Jolie Her MD at 18:59 EDT Tel , Service support , Chest X-Ray 06/02/18 18:42 IMPRESSION: Stable cardiomegaly, lines and tubes as above Stable mild scattered bilateral pulmonary opacities Electronically Signed: Perry Velasco at 21:01 EDT Tel , Service support , Renal Ultrasound 06/04/18 08:00 IMPRESSION: Mildly echogenic cortex of the kidneys may be due to medical renal disease. Electronically Signed: Mele Khalil DO at 23:08 EDT Tel [phone], Service support , Medical Necessity - Tobacco Use Smoking Status: Former smoker Tobacco Use: Cigarettes Assessment/Plan All Active Problems Respiratory failure with hypoxia (Acute) Acute exacerbation of chronic obstructive pulmonary disease (COPD) (Acute) Bronchospasm (Acute) Viral conjunctivitis (Acute) Allergic conjunctivitis (Acute) Chemosis of conjunctiva (Acute) Bradycardia (Acute) Hypotension (Acute) Decreased responsiveness (Acute) Acute hypoxic respiratory failure (Acute) Acute kidney injury (Acute) Prerenal azotemia (Resolved) RECOMMENDATIONS: 1. We will defer blood pressure control to cardiology. 2. Continue antibiotics as ordered. 3. Continue bronchodilators and prednisone. 4. Start D5W, given rising sodium level. 5. Consider dose de-escalation of Lasix, given rising bicarbonate. 6. Continue to wean supplemental oxygen to maintain saturations at or above 90%. Encourage incentive spirometer use and mobilize patient as tolerated. IMPRESSIONS: 1. Acute respiratory failure secondary to MSSA and Klebsiella pneumonia The patient is currently responding well to therapy. Continue antibiotics as ordered. Wean supplemental oxygen as tolerated. Continue gentle volume optimization with IV diuretics. Encourage incentive spirometer use and mobilize patient as tolerated. Prednisone can be weaned by 10 mg every 3 days. 2. Cardiogenic shock secondary to bradycardia The patient has been weaned from all vasopressor support at this time. In fact, the patient is consistently hypertensive. Cardiology is following to assist with management. 3. Acute kidney injury on CKD Likely secondary to ischemic ATN. Nephrology is following. 4. Hypertensive urgency Blood pressures remain elevated this morning. Will defer management of the patient's hypertension to cardiology, who is currently following. 5. GERD/anxiety/morbid obesity/hyperlipidemia/CAD status post CABG/reported COPD/diabetes mellitus Complicates care, management, recovery and prognosis. Continue Lantus and sliding scale insulin coverage. This note was generated with [employer] software. It may contain incorrect words, spelling, and punctuation that were not noted in checking the note before signing. Code Visit Inpatient E&M: 48062 Subs Hosp L3
[2018-06-10] MEDS: Ipratropium/Albuterol Sulfate 3 ML AMPUL.NEB INHALATION ×4 (06:32→20:17)
[2018-06-10] MEDS: Famotidine 20 MG Tablet PO (08:21)
[2018-06-10] MEDS: amLODIPine 10 MG Tablet PO (08:22)
[2018-06-10] MEDS: predniSONE 20 MG Tablet 40 MG PO (08:22)
[2018-06-10] MEDS: Enoxaparin 30 MG/0.3 ML Syringe SC (08:22)
[2018-06-10] MEDS: Gabapentin 300 MG Capsule PO ×2 (08:22→16:17)
[2018-06-10] MEDS: Furosemide 40 MG/4 ML Vial IV (08:28)
--- NOTE | 2018-06-10 09:24 | PCM.PN.HOSP ---
Patient Problems: Active and Suspected Problems Respiratory failure with hypoxia (Acute) Acute exacerbation of chronic obstructive pulmonary disease (COPD) (Acute) Bronchospasm (Acute) Viral conjunctivitis (Acute) Allergic conjunctivitis (Acute) Chemosis of conjunctiva (Acute) Bradycardia (Acute) Hypotension (Acute) Decreased responsiveness (Acute) Acute hypoxic respiratory failure (Acute) Subjective: Patient seen and examined. She was successfully extubated yesterday. She has no complaints and feels well. She was lethargic but able to answer questions. She denied any fever chills, palpitations or dizziness, chest pain, diarrhea vomiting. Review of systems otherwise negative. Labs and vitals reviewed. Sodium n0oted to have trended up to 151. Bicarb is also up to 33. She has net cumulative positive balance by 4.2 L. She has been diuresed with IV Lasix. Vitals/I&O's: Vital Signs Temp Pulse Resp BP Pulse Ox 97.3 F L 70 18 173/89 H 94 06/10/18 00:00 06/10/18 08:45 06/10/18 08:00 06/10/18 08:00 06/10/18 08:00 Oxygen Flow Rate (L/min) 2 Oxygen Delivery Method Nasal Cannula Weight: 249 lb 1.957 oz Body Mass Index (BMI) 43.9 Finger Stick Blood Glucose 155 Intake and Output for Last 24 Hours 06/08/18 06/09/18 06/10/18 23:59 23:59 23:59 Intake Total 3067 / 3067 2480 / 2480 312 / 312 Output Total 4100 / 4100 4750 / 4750 2310 / 2310 Balance -1033 / -1033 -0 / -2270 -1997 / General: Alert, Oriented x3, Cooperative, Lethargic HEENT: Atraumatic, PERRLA, EOMI, Normocephalic Oral: Dry Mucosa Neck: Supple, No JVD, Negative Carotid Bruits Lungs: - - decreased breath sounds bibasally, no wheezes or crackles Cardiovascular: Regular rate, Regular Rhythm, Normal S1, Normal S2, No murmurs Abdomen: Bowel Sounds Present, Soft, Non Tender, Non-Distended, No Hepato-splenomegaly Extremities: No clubbing, No cyanosis, No edema, Capillary Refill Less than 3 Seconds Skin: No rashes, No breakdown Musculoskeletal: No Tenderness to Palpation of Joints or Extremities Lymphatic: No Cervical, Supraclavicular, or Inguinal Adenopathy Neurological: Cranial nerves II-XII grossly intact, Neuro grossly intact, Motor Exam 5/5 strength throughout Psych/Mental Status: Normal Affect, Appropriate Microbiology Past 72 Hours 06/02/18 20:45 Blood Culture (Wb) - Anticubital Left Blood Culture - Final No growth in 5 days. 06/02/18 20:45 Blood Culture (Wb) - Central Line Blood Culture - Final No growth in 5 days. 06/03/18 21:45 Urine Catheter - Catheter Urine Culture - Final Yeast, not Brina albicans Laboratory Results 06/09/18 11:39: POC Glucose 171 H 06/09/18 16:33: POC Glucose 198 H 06/09/18 23:42: POC Glucose 182 H 06/10/18 04:10: WBC 15.3 H, RBC 3.94 L, Hgb 10.8 L, Hct 34.3 L, MCV 87.1, MCH 27.4, MCHC 31.5 L, RDW 16.8 H, RDW Differential 51.2 H, Plt Count 446, MPV 9.8, Neut % (Auto) Not Reportable, Absolute Neuts (auto) 12.2 H, Absolute Lymphs (auto) 1.84, Total Counted 100, Neutrophils % (Manual) 79 H, Band Neutrophils % 1, Lymphocytes % (Manual) 12 L, Monocytes % (Manual) 8, Diff Path Review May foll, Reactive Lymphocytes 2+, Platelet Estimate ADEQUATE, RBC Morphology NORM C+C 06/10/18 04:10: Sodium 151 H, Potassium 4.0, Chloride 111 H, Carbon Dioxide 33.0 H, Anion Gap 7, BUN 85 H, Creatinine 1.34 H, Estim Creat Clear Calc 31.85, Est GFR (MDRD) Af Amer 50 L, Est GFR (MDRD) Non-Af 41 L, BUN/Creatinine Ratio 63.4 H, Glucose 149 H, Calcium 8.9 06/10/18 05:06: POC Glucose 150 H Diagnostic Data Chest X-Ray 06/02/18 18:42 IMPRESSION: Stable cardiomegaly, lines and tubes as above Stable mild scattered bilateral pulmonary opacities Electronically Signed: Perry Velasco, at 21:01 EDT Tel , Service support , Renal Ultrasound 06/04/18 08:00 IMPRESSION: Mildly echogenic cortex of the kidneys may be due to medical renal disease. Electronically Signed: Mele Khalil DO at 23:08 EDT Tel [phone], Service support , Current Medications Albuterol Sulfate (Ventolin Aerosols) 2.5 mg INHALATION Q2H PRN PRN PRN Reason: SHORTNESS OF BREATH Albuterol/Ipratropium (Duoneb) 3 ml INHALATION Q4HWA.RT [facility] Last Admin: 06/10/18 06:32 Dose: 3 ml Amlodipine Besylate (Norvasc) 10 mg PO DAILY [facility] Last Admin: 06/10/18 08:22 Dose: 10 mg Atorvastatin Calcium (Lipitor) 80 mg GT DAILY@2200 [facility] Last Admin: 06/09/18 21:52 Dose: 80 mg Chlorhexidine Gluconate () 1 each TOPICAL DAILY [facility] Last Admin: 06/09/18 02:11 Dose: 1 each Clonidine (Catapres) 0.2 mg PO TID [facility] Last Admin: 06/10/18 05:06 Dose: 0.2 mg Dextrose (D50w Syringe) 0 gm IV X1 PRN; Protocol PRN Reason: Hypoglycemia Enoxaparin Sodium (Lovenox) 30 mg SC DAILY@1000 [facility] Last Admin: 06/10/18 08:22 Dose: 30 mg Famotidine (Pepcid) 20 mg PO DAILY [facility] Last Admin: 06/10/18 08:21 Dose: 20 mg Furosemide (Lasix) 40 mg IV BID@1000,1800 [facility] Last Admin: 06/10/18 08:28 Dose: 40 mg Gabapentin (Neurontin) 300 mg PO BIDCM [facility] Last Admin: 06/10/18 08:22 Dose: 300 mg Glucagon () 1 mg IM .X1 PRN PRN Reason: Hypoglycemia Hydralazine HCl (Apresoline Iv) 20 mg IV Q4H PRN PRN PRN Reason: BLOOD PRESSURE Last Admin: 06/09/18 11:51 Dose: 20 mg Hydralazine HCl (Apresoline) 100 mg PO TID [facility] Last Admin: 06/10/18 05:06 Dose: 100 mg Sodium Chloride () 250 mls @ 15 mls/hr IV .[id number] PRN PRN Reason: SALINE FLUSH Last Admin: 06/08/18 04:42 Dose: 15 mls/hr Ampicillin Sodium/Sulbactam (Sodium 3 gm/ Sodium Chloride) 112 mls @ 150 mls/hr IV Q12 [facility] Stop: 06/11/18 22:45 Last Admin: 06/10/18 08:28 Dose: 150 mls/hr Dextrose () 1,000 mls @ 75 mls/hr IV .[id number] [facility] Last Admin: 06/10/18 08:16 Dose: 75 mls/hr Insulin Glargine (Lantus (Bk)) 20 units SC 1800 [facility] Last Admin: 06/09/18 17:32 Dose: 20 u Insulin Glargine (Lantus (Bkc)) 15 units SC BREAKFAST [facility] Last Admin: 06/10/18 08:20 Dose: 15 u Insulin Human Lispro (Humalog Kwikpen ([facility])) 0 unit SC Q6 [facility]; Protocol Last Admin: 06/10/18 05:07 Dose: Not Given Labetalol HCl (Trandate) 20 mg IV Q6H [facility] Last Admin: 06/10/18 08:19 Dose: 20 mg Melatonin (Melatonin) 5 mg PO QHS PRN PRN Reason: INSOMNIA Last Admin: 06/09/18 23:05 Dose: 5 mg Ondansetron HCl (Zofran) 4 mg IV Q6H PRN PRN PRN Reason: NAUSEA/VOMITING Prednisone () 40 mg PO DAILY@0800 [facility] Last Admin: 06/10/18 08:22 Dose: 40 mg Sodium Chloride () 5 - 15 ml IV UD PRN PRN Reason: SALINE FLUSH Last Admin: 06/10/18 04:05 Dose: 10 ml Sodium Chloride () 10 - 40 ml IV UD PRN PRN Reason: MULTILUMEN/HICMAN CATH FLUSH Last Admin: 06/09/18 20:10 Dose: 10 ml Medical Necessity - Tobacco Use Smoking Status: Former smoker Tobacco Use: Cigarettes Assessment/Plan All Active Problems Respiratory failure with hypoxia (Acute) Acute exacerbation of chronic obstructive pulmonary disease (COPD) (Acute) Bronchospasm (Acute) Viral conjunctivitis (Acute) Allergic conjunctivitis (Acute) Chemosis of conjunctiva (Acute) Bradycardia (Acute) Hypotension (Acute) Decreased responsiveness (Acute) Acute hypoxic respiratory failure (Acute) Acute kidney injury (Acute) Prerenal azotemia (Resolved) 1. Cardiogenic shock due to bradycardia resolved bradycardia was likely medication induced, as HR is now stable since medications were stopped. 2D echo showed EF of 60%, with stage 2 diastolic dysfunction and normal LV systolic function 2. Acute hypoxic and hypercapnic respiratory failure due to probable COPD exacerbation and pneumonia was successfully extubated yesterday; on breathing treatments and IV solumedrol cuff setter lockstitch on board sputum cultured Klebsiella pneumoniae and MSSA on IV unasyn 3. Community acquired pneumonia: as under 2. 4. Bracycardia, likely medication induced: as under 1. 5. KURT on CKD likely pre-renal due to medication induced hypotension and bradycardia Cr down to 1.34 today nephrology on board; think it is likely due to ATN from hypotension; no need for [employer] now being diuresed with IV lasix; in net positive balance by 4.2L since admission and in net negative balance by 1.99L since yesterday kidney and bladder USG showed mild echogenic cortex of the kidneys which may be due to medical renal disease started on IV lasix 40mg bid. will monitor urine output. 6. Hypertension: admitted with hypertensive urgency which resolved. Currently BP is in 170s systolic on amlodipine 10mg daily and clonidine 0.1mg tid 7. MEtabolic alkalosis: bicarb is up to 33, likely due to contraction alkalosis from diuresis with lasix. WIll continue monitoring, and consider adjusting lasix dose as needed if bicarb continues to rise. 8. Hypernatremia: Na is 151 today; likely due to overdiuresis. WIll give D5W with very gently hydration. 9. Type 2 diabetes mellitus Metformin on hold on account of KURT. Insulin lantus increased to 20IU qhs and 15IU qam. Insulin sliding scale. Accu-Cheks ACHS 10. GERD: on PPI. 11. Acute viral conjunctivitis: Resolved. 12. Mild hyponatremia: resolved. 13. Hyperlipidemia: On statin 14. Anemia: Hb is up to 10.8 today. Iron panel showed normal iron level of 59 and iron saturation of 22.4 Nutrition: tube feeding stopped. 2gram low Na diet. DVT prophylaxis: renal dose of lovenox GI prophylaxis: on lansoprazole 30mg daily. Code Visit Inpatient E&M: 27776 Subs Hosp L3
--- NOTE | 2018-06-10 09:33 | PN_ITS ---
Patient Problems: Active and Suspected Problems Respiratory failure with hypoxia (Acute) Acute exacerbation of chronic obstructive pulmonary disease (COPD) (Acute) Bronchospasm (Acute) Viral conjunctivitis (Acute) Allergic conjunctivitis (Acute) Chemosis of conjunctiva (Acute) Bradycardia (Acute) Hypotension (Acute) Decreased responsiveness (Acute) Acute hypoxic respiratory failure (Acute) Subjective: Patient seen and examined. She was successfully extubated yesterday. She has no complaints and feels well. She was lethargic but able to answer questions. She denied any fever chills, palpitations or dizziness, chest pain, diarrhea vomiting. Review of systems otherwise negative. Labs and vitals reviewed. Sodium n0oted to have trended up to 151. Bicarb is also up to 33. She has net cumulative positive balance by 4.2 L. She has been diuresed with IV Lasix. Vitals/I&O's: Vital Signs Temp Pulse Resp BP Pulse Ox 97.3 F L 70 18 173/89 H 94 06/10/18 00:00 06/10/18 08:45 06/10/18 08:00 06/10/18 08:00 06/10/18 08:00 Oxygen Flow Rate (L/min) 2 Oxygen Delivery Method Nasal Cannula Weight: 249 lb 1.957 oz Body Mass Index (BMI) 43.9 Finger Stick Blood Glucose 155 Intake and Output for Last 24 Hours 06/08/18 06/09/18 06/10/18 23:59 23:59 23:59 Intake Total 3067 / 3067 2480 / 2480 312 / 312 Output Total 4100 / 4100 4750 / 4750 2310 / 2310 Balance -1033 / -1033 -0 / -2270 -1997 / General: Alert, Oriented x3, Cooperative, Lethargic HEENT: Atraumatic, PERRLA, EOMI, Normocephalic Oral: Dry Mucosa Neck: Supple, No JVD, Negative Carotid Bruits Lungs: - - decreased breath sounds bibasally, no wheezes or crackles Cardiovascular: Regular rate, Regular Rhythm, Normal S1, Normal S2, No murmurs Abdomen: Bowel Sounds Present, Soft, Non Tender, Non-Distended, No Hepato- splenomegaly Extremities: No clubbing, No cyanosis, No edema, Capillary Refill Less than 3 Seconds Skin: No rashes, No breakdown Musculoskeletal: No Tenderness to Palpation of Joints or Extremities Lymphatic: No Cervical, Supraclavicular, or Inguinal Adenopathy Neurological: Cranial nerves II-XII grossly intact, Neuro grossly intact, Motor Exam 5/5 strength throughout Psych/Mental Status: Normal Affect, Appropriate Microbiology Past 72 Hours 06/02/18 20:45 Blood Culture (Wb) - Anticubital Left Blood Culture - Final No growth in 5 days. 06/02/18 20:45 Blood Culture (Wb) - Central Line Blood Culture - Final No growth in 5 days. 06/03/18 21:45 Urine Catheter - Catheter Urine Culture - Final Yeast, not Brina albicans Laboratory Results 06/09/18 11:39: POC Glucose 171 H 06/09/18 16:33: POC Glucose 198 H 06/09/18 23:42: POC Glucose 182 H 06/10/18 04:10: WBC 15.3 H, RBC 3.94 L, Hgb 10.8 L, Hct 34.3 L, MCV 87.1, MCH 27.4, MCHC 31.5 L, RDW 16.8 H, RDW Differential 51.2 H, Plt Count 446, MPV 9.8, Neut % (Auto) Not Reportable, Absolute Neuts (auto) 12.2 H, Absolute Lymphs (auto) 1.84, Total Counted 100, Neutrophils % (Manual) 79 H, Band Neutrophils % 1, Lymphocytes % (Manual) 12 L, Monocytes % (Manual) 8, Diff Path Review May foll, Reactive Lymphocytes 2+, Platelet Estimate ADEQUATE, RBC Morphology NORM C+C 06/10/18 04:10: Sodium 151 H, Potassium 4.0, Chloride 111 H, Carbon Dioxide 33.0 H, Anion Gap 7, BUN 85 H, Creatinine 1.34 H, Estim Creat Clear Calc 31.85, Est GFR (MDRD) Af Amer 50 L, Est GFR (MDRD) Non-Af 41 L, BUN/Creatinine Ratio 63.4 H , Glucose 149 H, Calcium 8.9 06/10/18 05:06: POC Glucose 150 H Diagnostic Data Chest X-Ray 06/02/18 18:42 IMPRESSION: Stable cardiomegaly, lines and tubes as above Stable mild scattered bilateral pulmonary opacities Electronically Signed: Perry Velasco, at 21:01 EDT Tel , Service support , Renal Ultrasound 06/04/18 08:00 IMPRESSION: Mildly echogenic cortex of the kidneys may be due to medical renal disease. Electronically Signed: Mele Khalil DO at 23:08 EDT Tel [phone], Service support , Current Medications Albuterol Sulfate (Ventolin Aerosols) 2.5 mg INHALATION Q2H PRN PRN PRN Reason: SHORTNESS OF BREATH Albuterol/Ipratropium (Duoneb) 3 ml INHALATION Q4HWA.RT [facility] Last Admin: 06/10/18 06:32 Dose: 3 ml Amlodipine Besylate (Norvasc) 10 mg PO DAILY [facility] Last Admin: 06/10/18 08:22 Dose: 10 mg Atorvastatin Calcium (Lipitor) 80 mg GT DAILY@2200 [facility] Last Admin: 06/09/18 21:52 Dose: 80 mg Chlorhexidine Gluconate () 1 each TOPICAL DAILY [facility] Last Admin: 06/09/18 02:11 Dose: 1 each Clonidine (Catapres) 0.2 mg PO TID [facility] Last Admin: 06/10/18 05:06 Dose: 0.2 mg Dextrose (D50w Syringe) 0 gm IV X1 PRN; Protocol PRN Reason: Hypoglycemia Enoxaparin Sodium (Lovenox) 30 mg SC DAILY@1000 [facility] Last Admin: 06/10/18 08:22 Dose: 30 mg Famotidine (Pepcid) 20 mg PO DAILY [facility] Last Admin: 06/10/18 08:21 Dose: 20 mg Furosemide (Lasix) 40 mg IV BID@1000,1800 [facility] Last Admin: 06/10/18 08:28 Dose: 40 mg Gabapentin (Neurontin) 300 mg PO BIDCM [facility] Last Admin: 06/10/18 08:22 Dose: 300 mg Glucagon () 1 mg IM .X1 PRN PRN Reason: Hypoglycemia Hydralazine HCl (Apresoline Iv) 20 mg IV Q4H PRN PRN PRN Reason: BLOOD PRESSURE Last Admin: 06/09/18 11:51 Dose: 20 mg Hydralazine HCl (Apresoline) 100 mg PO TID [facility] Last Admin: 06/10/18 05:06 Dose: 100 mg Sodium Chloride () 250 mls @ 15 mls/hr IV .[id number] PRN PRN Reason: SALINE FLUSH Last Admin: 06/08/18 04:42 Dose: 15 mls/hr Ampicillin Sodium/Sulbactam (Sodium 3 gm/ Sodium Chloride) 112 mls @ 150 mls/hr IV Q12 [facility] Stop: 06/11/18 22:45 Last Admin: 06/10/18 08:28 Dose: 150 mls/hr Dextrose () 1,000 mls @ 75 mls/hr IV .[id number] [facility] Last Admin: 06/10/18 08:16 Dose: 75 mls/hr Insulin Glargine (Lantus (Bk)) 20 units SC 1800 [facility] Last Admin: 06/09/18 17:32 Dose: 20 u Insulin Glargine (Lantus (Bkc)) 15 units SC BREAKFAST [facility] Last Admin: 06/10/18 08:20 Dose: 15 u Insulin Human Lispro (Humalog Kwikpen ([facility])) 0 unit SC Q6 [facility]; Protocol Last Admin: 06/10/18 05:07 Dose: Not Given Labetalol HCl (Trandate) 20 mg IV Q6H [facility] Last Admin: 06/10/18 08:19 Dose: 20 mg Melatonin (Melatonin) 5 mg PO QHS PRN PRN Reason: INSOMNIA Last Admin: 06/09/18 23:05 Dose: 5 mg Ondansetron HCl (Zofran) 4 mg IV Q6H PRN PRN PRN Reason: NAUSEA/VOMITING Prednisone () 40 mg PO DAILY@0800 [facility] Last Admin: 06/10/18 08:22 Dose: 40 mg Sodium Chloride () 5 - 15 ml IV UD PRN PRN Reason: SALINE FLUSH Last Admin: 06/10/18 04:05 Dose: 10 ml Sodium Chloride () 10 - 40 ml IV UD PRN PRN Reason: MULTILUMEN/HICMAN CATH FLUSH Last Admin: 06/09/18 20:10 Dose: 10 ml Medical Necessity - Tobacco Use Smoking Status: Former smoker Tobacco Use: Cigarettes Assessment/Plan All Active Problems Respiratory failure with hypoxia (Acute) Acute exacerbation of chronic obstructive pulmonary disease (COPD) (Acute) Bronchospasm (Acute) Viral conjunctivitis (Acute) Allergic conjunctivitis (Acute) Chemosis of conjunctiva (Acute) Bradycardia (Acute) Hypotension (Acute) Decreased responsiveness (Acute) Acute hypoxic respiratory failure (Acute) Acute kidney injury (Acute) Prerenal azotemia (Resolved) 1. Cardiogenic shock due to bradycardia * resolved * bradycardia was likely medication induced, as HR is now stable since medications were stopped. * 2D echo showed EF of 60%, with stage 2 diastolic dysfunction and normal LV systolic function * 2. Acute hypoxic and hypercapnic respiratory failure due to probable COPD exacerbation and pneumonia * was successfully extubated yesterday; * on breathing treatments and IV solumedrol * manipulative therapy specialist on board * sputum cultured Klebsiella pneumoniae and MSSA * on IV unasyn * 3. Community acquired pneumonia: as under 2. 4. Bracycardia, likely medication induced: as under 1. 5. KURT on CKD * likely pre-renal due to medication induced hypotension and bradycardia * Cr down to 1.34 today * nephrology on board; think it is likely due to ATN from hypotension; no need for [employer] now * being diuresed with IV lasix; in net positive balance by 4.2L since admission and in net negative balance by 1.99L since yesterday * kidney and bladder USG showed mild echogenic cortex of the kidneys which may be due to medical renal disease * started on IV lasix 40mg bid. * will monitor urine output. 6. Hypertension: * admitted with hypertensive urgency which resolved. Currently BP is in 170s systolic * on amlodipine 10mg daily and clonidine 0.1mg tid 7. MEtabolic alkalosis: * bicarb is up to 33, likely due to contraction alkalosis from diuresis with lasix. * WIll continue monitoring, and consider adjusting lasix dose as needed if bicarb continues to rise. * 8. Hypernatremia: Na is 151 today; likely due to overdiuresis. WIll give D5W with very gently hydration. 9. Type 2 diabetes mellitus * Metformin on hold on account of KURT. Insulin lantus increased to 20IU qhs and 15IU qam. Insulin sliding scale. Accu-Cheks ACHS 10. GERD: on PPI. 11. Acute viral conjunctivitis: Resolved. 12. Mild hyponatremia: resolved. 13. Hyperlipidemia: On statin 14. Anemia: Hb is up to 10.8 today. Iron panel showed normal iron level of 59 and iron saturation of 22.4 Nutrition: tube feeding stopped. 2gram low Na diet. DVT prophylaxis: renal dose of lovenox GI prophylaxis: on lansoprazole 30mg daily. Code Visit Inpatient E&M: 08350 Subs Hosp L3
[2018-06-10 10:22] LABS: Partial Thromboplast Time 29.7 Seconds (24.1-36.2)
--- NOTE | 2018-06-10 11:11 | PCM.PN.REN ---
Patient Problems: Active and Suspected Problems Respiratory failure with hypoxia (Acute) Acute exacerbation of chronic obstructive pulmonary disease (COPD) (Acute) Bronchospasm (Acute) Viral conjunctivitis (Acute) Allergic conjunctivitis (Acute) Chemosis of conjunctiva (Acute) Bradycardia (Acute) Hypotension (Acute) Decreased responsiveness (Acute) Acute hypoxic respiratory failure (Acute) Subjective: Pt has no nausea No vomiting. No SOB On NC at 2L/M - Physical Exam General: Alert, Oriented x3 HEENT: Atraumatic Oral: Moist Mucosa Neck: Supple, No JVD Lungs: Clear to auscultation, Normal air movement, No rhonchi Cardiovascular: Regular rate, Regular Rhythm, Normal S1, Normal S2 Abdomen: Bowel Sounds Present, Soft, Non Tender, Non-Distended Extremities: No clubbing Skin: No rashes Musculoskeletal: No Tenderness to Palpation of Joints or Extremities Lymphatic: No Cervical, Supraclavicular, or Inguinal Adenopathy Neurological: Cranial nerves II-XII grossly intact, Neuro grossly intact Psych/Mental Status: Normal Affect Vital Signs Temp Pulse Resp BP Pulse Ox 96 F L 82 17 171/70 H 97 06/10/18 09:00 06/10/18 09:30 06/10/18 09:30 06/10/18 09:00 06/10/18 09:30 Oxygen Flow Rate (L/min) 2 Oxygen Delivery Method Nasal Cannula Weight: 113 kg Body Mass Index (BMI) 43.9 Finger Stick Blood Glucose 155 Intake and Output for Last 24 Hours 06/08/18 06/09/18 06/10/18 23:59 23:59 23:59 Intake Total 3067 / 3067 2480 / 2480 312 / 312 Output Total 4100 / 4100 4750 / 4750 2310 / 2310 Balance -1033 / -1033 -2270 / -2270 -1997 / Microbiology Past 72 Hours 06/02/18 20:45 Blood Culture - Final Blood Culture (Wb) - Anticubital Left No growth in 5 days. 06/02/18 20:45 Blood Culture - Final Blood Culture (Wb) - Central Line No growth in 5 days. 06/03/18 21:45 Urine Culture - Final Urine Catheter - Catheter Yeast, not Brina albicans Laboratory Tests Past 24 Hrs 06/10/18 06/10/18 06/10/18 04:10 04:10 10:05 WBC 15.3 H RBC 3.94 L Hgb 10.8 L Hct 34.3 L MCV 87.1 MCH 27.4 MCHC 31.5 L RDW 16.8 H RDW Differential 51.2 H Plt Count 446 MPV 9.8 Neut % (Auto) Not Reportable Absolute Neuts (auto) 12.2 H Absolute Lymphs (auto) 1.84 Total Counted 100 Neutrophils % (Manual) 79 H Band Neutrophils % 1 Lymphocytes % (Manual) 12 L Monocytes % (Manual) 8 Diff Path Review May foll Reactive Lymphocytes 2+ Platelet Estimate ADEQUATE RBC Morphology NORM C+C APTT 29.7 Sodium 151 H Potassium 4.0 Chloride 111 H Carbon Dioxide 33.0 H Anion Gap 7 BUN 85 H Creatinine 1.34 H Estim Creat Clear Calc 31.85 Est GFR (MDRD) Af Amer 50 L Est GFR (MDRD) Non-Af 41 L BUN/Creatinine Ratio 63.4 H Glucose 149 H Calcium 8.9 POC Glucose 06/10/18 06/09/18 06/09/18 05:06 23:42 16:33 POC Glucose 150 H 182 H 198 H 06/09/18 11:39 POC Glucose 171 H Medical Necessity - Tobacco Use Smoking Status: Former smoker Tobacco Use: Cigarettes Assessment/Plan All Active Problems Respiratory failure with hypoxia (Acute) Acute exacerbation of chronic obstructive pulmonary disease (COPD) (Acute) Bronchospasm (Acute) Viral conjunctivitis (Acute) Allergic conjunctivitis (Acute) Chemosis of conjunctiva (Acute) Bradycardia (Acute) Hypotension (Acute) Decreased responsiveness (Acute) Acute hypoxic respiratory failure (Acute) Acute kidney injury (Acute) Prerenal azotemia (Resolved) 1- KURT on CKD stage 3. Baseline Cr 1.1-1.3 mg/dl KURT is due to ischemic ATN related to sepsis. I doubt another KURT etiology for now Renal function is improving. Last creatinine trend 3.3->2.37->1.74->1.49>1.34 in the last 4 days. Elevated BUN is likely related to steroid and diuresis. BUN is also improving. Patient is responding well to Lasix. I will d/c lasix due to hypernatremia Keep mean arterial pressure more than 65. Will continue to monitor kidney function and clinical status 2- Acute RF from pneumonia/COPD exacerbation. Off vent. Keep O>I 3- cardiogenic shock from medications induced bradycardia. Resolved. Off pressors. 4-hypertension. Blood pressure is elevated. Will add losartan continue the rest of BP medication 5- Hypernatremia: d/c lasix encouraged PO H20 intake after swallow eval Renal team will continue to follow Please call if any question at [phone] Dewayne Hughes MD
[2018-06-10 11:34] LABS: Pathologist Review Reviewed
[2018-06-10] MEDS: Insulin Lispro 100 UNIT/ML INSULN.PEN SC ×3 (11:34→22:06)
[2018-06-10 11:36] LABS: Bedside Glucose 227 mg/dL (70-110)
[2018-06-10 11:40] LABS: Pathologist Review Reviewed
--- NOTE | 2018-06-10 13:14 | CASEMGMT ---
RN CM Note: PT/OT notes reviewed. Call to Gregoria who worked with pt today for recommendation: alf is recommended. SW consult placed for possible SNF referral. Champ DELGADO updated. Opal SHERIFFN RN ACM
--- NOTE | 2018-06-10 14:02 | NURSING ---
Addendum entered by Rebecca Webster 06/10/18 14:03: Original Note: report called to pcu transferred per chair with monitor to room 116, family present
--- NOTE | 2018-06-10 16:32 | CASEMGMT ---
Social Work PCU Reason for Consult: SNF placement recommendation Summary: Consult received for SNF placement. Chart reviewed and noted that prior to admission patient was independent at home, still drives, no reported adaptive equipment used for mobility. Noted recommendations at present time for continued skilled therapy. Presented to patient's room. Also present is a granddaughter named Иван. Introduced self, role and reason for visit to the patient. Patient laughs and stated I'm not going to a rest home. 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 Patient has familiarity with intermediate facilities. Patient reports home is the most comfortable for patient, patient feels peaceful at home and that will do whatever it takes to be able to go home. Living Situation: living with daughter Doris for the last 4 years. Home is first floor set up, a couple of steps into the home. Patient confirms that was independent with mobility prior to admission, still drove and provided for own self care. Medical equipment: has grab bars in the bathroom. Access to a shower chair if needed. Reports willingness to use recommended DME at time of discharge. Expresses interest in medical alert system. Advanced Directives: Does not have but expresses interest in having more information. Discharge planning: Patient reports that Doris no longer works so is home most of the time and can help patient if needed. Patient has another daughter sandra and granddaughter Иван who are around and helpful. Patient reports to have no interested to go to a SNF, even temporarily to get stronger. Patient is willing however to go home with skilled home health care. Reviewed some options verbally and patient has no voiced preference at this time. Agreed to return to patient's room with a list of home health agencies, medical alert information and advanced directive information. Returned to patient's room. Patient sleeping. Provided Иван with information on HHC and asked that patient and family review, and that social work or case management will return tomorrow to see what patient has chosen. Provided information on medical alert and advanced directives. Let Иван know that if patient wants to complete while in the hospital social work is available, or an appointment can also be made as an outpatient if patient wants to take some time to consider. Plan: Anticipating home with Home Health care, as is the patient's choice at this time. Uncertain what DME may be recommended for home going. -RENAY Bloom, DEPARTMENTAL BUYER
[2018-06-10 16:50] LABS: Bedside Glucose 207 mg/dL (70-110)
--- NOTE | 2018-06-10 17:03 | PN.CARD_ITS ---
Subjectve: The patient is now extubated and in the PCU. She appears to be awake and alert at this time. She denies ongoing chest discomfort or difficulty breathing. She is tired and fatigued. Objective: Vital Signs Temp Pulse Resp BP Pulse Ox 97.8 F 77 16 150/69 H 94 06/10/18 16:06 06/10/18 16:06 06/10/18 16:06 06/10/18 16:06 06/10/18 16:06 Oxygen Flow Rate (L/min) 1 Oxygen Delivery Method Nasal Cannula Weight: 249 lb 1.957 oz Body Mass Index (BMI) 43.9 Finger Stick Blood Glucose 155 Intake and Output for Last 24 Hours 06/08/18 06/09/18 06/10/18 23:59 23:59 23:59 Intake Total 3067 / 3067 2480 / 2480 957 / 957 Output Total 4100 / 4100 4750 / 4750 3610 / 3610 Balance -1033 / -1033 -2270 / -2270 -2653 / -2653 General: Awake, Alert, Oriented x 3, Cooperative, No Acute Distress, Obese HEENT: Atraumatic, Normocephalic, PERRL, EOMI, Sclera Non Icteric Oral: Moist Mucosa Neck: Supple, Good ROM Lungs: - - No obvious rales or rhonchi reported Cardiovascular: Regular Rhythm, Normal S1, Normal S2 Abdomen: Bowel Sounds Present, Soft, Non Tender Extremities: Trace RLE Edema, Trace LLE Edema Psych/Mental Status: Appropriate 06/10/18 04:10: WBC 15.3 H, RBC 3.94 L, Hgb 10.8 L, Hct 34.3 L, MCV 87.1, MCH 27.4, MCHC 31.5 L, RDW 16.8 H, RDW Differential 51.2 H, Plt Count 446, MPV 9.8, Neut % (Auto) Not Reportable, Absolute Neuts (auto) 12.2 H, Total Counted 100, Neutrophils % (Manual) 79 H, Band Neutrophils % 1, Lymphocytes % (Manual) 12 L, Monocytes % (Manual) 8 06/10/18 04:10: Sodium 151 H, Potassium 4.0, Chloride 111 H, Carbon Dioxide 33.0 H, Anion Gap 7, BUN 85 H, Creatinine 1.34 H, Est GFR (MDRD) Af Amer 50 L, Est GFR (MDRD) Non-Af 41 L, BUN/Creatinine Ratio 63.4 H, Glucose 149 H, Calcium 8.9 06/10/18 10:05: APTT 29.7 Rhythm: Sinus rhythm Medical Necessity - Tobacco Use Smoking Status: Former smoker Tobacco Use: Cigarettes Assessment/Plan 1. Bradycardia/hypotension The patient remains in sinus rhythm. There is been caution with respect to restarting rate limiting medications to avoid repeat episodes of bradycardia dysrhythmias. However the patient has been placed on clonidine therapy for her hypertension. Thus far she has not yet become bradycardic. 2. CAD status post CABG She has undergone evaluation with formal transthoracic echocardiogram during sinus rhythm. Her overall left ventricular size, wall motion, and systolic function was considered normal with an LVEF of 60%. A [facility] CABG report was placed on her chart. It appears she received a NATHAN to the LAD, and SVG to the diagonal branch, and SVG to the LCx system, and an SVG to the RCA. 3. Hyperlipidemia She will continue lipid-lowering therapy as deemed appropriate. 4. Hypertension She has now become hypertensive. Again it is been difficult to control her blood pressure in the past. As her course is progressed her blood pressure is been challenging with respect to going from hypotension to hypertension. She has been placed on nonrate limiting medication with amlodipine and hydralazine. She has now been given additional medication with clonidine. Thus far she has not developed obvious bradycardia. However her blood pressure remains elevated. As her renal function has improved perhaps she can be a candidate for either an NICOLAS inhibitor or ARB to assist with her blood pressure control. Would need follow-up BMP. 5. Diabetes mellitus She will continue under the care of internal medicine for this. 6. COPD She apparently has long-standing COPD. She will continue evaluation care by internal medicine and pulmonology/critical care medicine. 6. Renal insufficiency Her creatinine level is decreasing. She is being followed by nephrology. This note was generated with [employer] software. It may contain incorrect words, spelling, and punctuation that were not noted in checking the note before signing.
[2018-06-10] MEDS: Carvedilol 3.125 MG TABLET PO (22:04)
[2018-06-10] MEDS: Atorvastatin Calcium 80 MG Tablet PO (22:04)
[2018-06-10 22:25] LABS: Bedside Glucose 199 mg/dL (70-110)
[2018-06-11] VITALS (16 sets, daily range): BP systolic 156–194; BP diastolic 47–71; PULSE 70–89; RESP 16–20; TEMP 36.6–36.9; O2SAT 91–96
[2018-06-11] MEDS: 0.9% NaCl Peripheral Flush Adult/Peds IV ×3 (02:49→21:28)
[2018-06-11 06:23] LABS: Anion Gap 6 (5-15); BUN 60 mg/dL (7-18); BUN/Creat Ratio 53.6 RATIO (10-20); Calcium,Total 8.6 mg/dL (8.5-10.1); Chloride 105 mmol/L (98-107); Creatinine, Serum 1.12 mg/dL (0.55-1.02); EST Glomerular Filtration Rate 51 mL/min (>60); Est Glom Filt Rate - Afr Amer 62 mL/min (>60); Estimated Creatinine Clearance 38.11 ml/min; Glucose 84 mg/dL (74-106); Potassium 3.5 mmol/L (3.5-5.1); Sodium Level 144 mmol/L (136-145)
[2018-06-11 06:28] LABS: Hematocrit 32.7 % (37-47); Hemoglobin 10.2 g/dl (12.0-15.0); Mean Corp Hgb Conc 31.2 g/gl (32-36); Mean Corpuscular Hgb 27.5 pg (27.0-32.0); Mean Corpuscular Volume 88.1 fL (81-99); Mean Platelet Vol. 9.8 fl (6.2-12.0); Platelet Count 406 K/mm3 (150-450); RBC Distribution Width CV 16.5 % (11.6-14.6); RBC Distribution Width SD 50.8 fl (35.1-43.9); Red Blood Count 3.71 M/mm3 (4.2-5.4); White Blood Count 14.7 K/mm3 (4.4-11.0)
[2018-06-11] MEDS: hydrALAZINE 50 MG Tablet 100 MG PO ×3 (06:28→21:26)
[2018-06-11 06:30] LABS: Differential Indicated MANUAL DIFF; POSITIVE COUNT YES; POSITIVE DIFFERENTIAL NO; POSITIVE MORPHOLOGY YES
[2018-06-11 06:55] LABS: Bedside Glucose 93 mg/dL (70-110)
[2018-06-11] MEDS: Ipratropium/Albuterol Sulfate 3 ML AMPUL.NEB INHALATION ×4 (07:02→19:57)
[2018-06-11 07:09] LABS: Eosinophil 3 % (0-5); Lymphocyte 16 % (19-41); Monocyte 6 % (0-10); Neutrophil-Band 2 % (0-5); Neutrophil-Segmented 73 % (47-70); Nucleated Red Bld Cells,Manual 1 % (0-5); Total Cells Counted 100 (MANUAL DIFF)
[2018-06-11 07:10] LABS: Platelet Estimate ADEQUATE (ADEQ); Red Cell Morphology NORM C+C NORMAL (NORM C&C)
[2018-06-11 07:11] LABS: Absolute Lymphocyte Count 2.35 X10^3/ul (0.83-4.51)
--- NOTE | 2018-06-11 07:40 | PN_ITS ---
Patient Problems: Active and Suspected Problems Respiratory failure with hypoxia (Acute) Acute exacerbation of chronic obstructive pulmonary disease (COPD) (Acute) Bronchospasm (Acute) Viral conjunctivitis (Acute) Allergic conjunctivitis (Acute) Chemosis of conjunctiva (Acute) Bradycardia (Acute) Hypotension (Acute) Decreased responsiveness (Acute) Acute hypoxic respiratory failure (Acute) Subjective: The patient was seen and examined at the bedside this morning. Events from the last 24 hours have been reviewed. The patient is currently afebrile, hemodynamically stable and maintaining appropriate oxygen saturations on 1 L/min via nasal cannula. The patient is currently overall net +3 L for the admission. Sodium is improved this morning to 144. Creatinine is stable. The patient denies shortness of breath or cough. Objective: The patient's most recent lab work, culture data and imaging studies have all been personally reviewed. Sputum culture dated June 03 was positive for both Klebsiella pneumonia and MSSA. Surface echocardiogram dated June 03 revealed stage II diastolic dysfunction with an ejection fraction of 60%. Pulmonary artery systolic pressure was estimated to be 44 mmHg. - Physical Exam General: Alert, No apparent distress HEENT: Atraumatic, PERRLA, Normocephalic Oral: No Gingival or Mucosal Lesions/ Ulcerations Neck: Supple, No Nodes, Trachea Midline Lungs: No rhonchi, No wheeze, No rales, Diminished Cardiovascular: Regular rate, Regular Rhythm, Normal S1, Normal S2, No murmurs Abdomen: Bowel Sounds Present, Soft, Non Tender, Obese Extremities: No clubbing, No cyanosis, No edema Skin: - - No significant change from previous Musculoskeletal: No Tenderness to Palpation of Joints or Extremities Lymphatic: No Cervical, Supraclavicular, or Inguinal Adenopathy Neurological: Cranial nerves II-XII grossly intact, Neuro grossly intact Psych/Mental Status: Normal Affect, Appropriate Vital Signs Temp Pulse Resp BP Pulse Ox 36.8 C 79 16 194/71 H 91 06/11/18 06:23 06/11/18 07:02 06/11/18 07:02 06/11/18 06:28 06/11/18 07:02 Oxygen Flow Rate (L/min) 1 Oxygen Delivery Method Nasal Cannula Weight: 252 lb 13.923 oz Body Mass Index (BMI) 43.9 Finger Stick Blood Glucose 155 Intake and Output for Last 24 Hours 06/09/18 06/10/18 06/11/18 23:59 23:59 23:59 Intake Total 2480 / 2480 1877 / 1877 615 / 615 Output Total 4750 / 4750 5160 / 5160 650 / 650 Balance -2270 / -2270 -3283 / -3283 -35 / -35 Microbiology Past 72 Hours 06/02/18 20:45 Blood Culture - Final Blood Culture (Wb) - Anticubital Left No growth in 5 days. 06/02/18 20:45 Blood Culture - Final Blood Culture (Wb) - Central Line No growth in 5 days. Laboratory Tests Past 24 Hrs 06/09/18 06/10/18 06/10/18 05:45 04:10 10:05 WBC RBC Hgb Hct MCV MCH MCHC RDW RDW Differential Plt Count MPV Neut % (Auto) Absolute Neuts (auto) Absolute Lymphs (auto) Total Counted Neutrophils % (Manual) Band Neutrophils % Lymphocytes % (Manual) Monocytes % (Manual) Eosinophils % (Manual) Nucleated RBCs/100 WBC Diff Path Review Reviewed Reviewed Platelet Estimate RBC Morphology APTT 29.7 Sodium Potassium Chloride Carbon Dioxide Anion Gap BUN Creatinine Estim Creat Clear Calc Est GFR (MDRD) Af Amer Est GFR (MDRD) Non-Af BUN/Creatinine Ratio Glucose Calcium 06/11/18 06/11/18 05:05 05:05 WBC 14.7 H RBC 3.71 L Hgb 10.2 L Hct 32.7 L MCV 88.1 MCH 27.5 MCHC 31.2 L RDW 16.5 H RDW Differential 50.8 H Plt Count 406 MPV 9.8 Neut % (Auto) Not Reportable Absolute Neuts (auto) 11.0 H Absolute Lymphs (auto) 2.35 Total Counted 100 Neutrophils % (Manual) 73 H Band Neutrophils % 2 Lymphocytes % (Manual) 16 L Monocytes % (Manual) 6 Eosinophils % (Manual) 3 Nucleated RBCs/100 WBC 1 Diff Path Review May foll Platelet Estimate ADEQUATE RBC Morphology NORM C+C APTT Sodium 144 Potassium 3.5 Chloride 105 Carbon Dioxide 33.0 H Anion Gap 6 BUN 60 H Creatinine 1.12 H Estim Creat Clear Calc 38.11 Est GFR (MDRD) Af Amer 62 Est GFR (MDRD) Non-Af 51 L BUN/Creatinine Ratio 53.6 H Glucose 84 Calcium 8.6 POC Glucose 04/11/2106/10/18 06/10/18 06:42 21:57 16:05 POC Glucose 93 199 H 207 H 06/10/18 11:29 POC Glucose 227 H Clinical Impression(s) from Imaging Studies Chest X-Ray 06/01/18 10:35 IMPRESSION: No acute cardiopulmonary disease. Electronically Signed: Mike Toussaint DO at 11:43 EDT Tel , Service support , Chest X-Ray 06/02/18 17:28 IMPRESSION: Right IJ line terminates in the SVC. No demonstrated pneumothorax. Electronically Signed: Jolie Her MD at 18:59 EDT Tel , Service support , Chest X-Ray 06/02/18 18:42 IMPRESSION: Stable cardiomegaly, lines and tubes as above Stable mild scattered bilateral pulmonary opacities Electronically Signed: Perry Velasco at 21:01 EDT Tel , Service support , Renal Ultrasound 06/04/18 08:00 IMPRESSION: Mildly echogenic cortex of the kidneys may be due to medical renal disease. Electronically Signed: Mele Khalil DO at 23:08 EDT Tel [phone], Service support , Medical Necessity - Tobacco Use Smoking Status: Former smoker Tobacco Use: Cigarettes Assessment/Plan All Active Problems Respiratory failure with hypoxia (Acute) Acute exacerbation of chronic obstructive pulmonary disease (COPD) (Acute) Bronchospasm (Acute) Viral conjunctivitis (Acute) Allergic conjunctivitis (Acute) Chemosis of conjunctiva (Acute) Bradycardia (Acute) Hypotension (Acute) Decreased responsiveness (Acute) Acute hypoxic respiratory failure (Acute) Acute kidney injury (Acute) Prerenal azotemia (Resolved) RECOMMENDATIONS: 1. Will defer blood pressure control to cardiology. 2. Continue antibiotics as ordered. Stop date already established. 3. Continue bronchodilators and prednisone. Wean prednisone by 10 mg every 3 days. 4. Discontinue D5W. 5. Continue to wean supplemental oxygen to maintain saturations at or above 90%. Encourage incentive spirometer use and mobilize patient as tolerated. 6. Perform walking oximetry study prior to consideration for discharge. 7. Outpatient pulmonary follow-up in 2 weeks following discharge. 8. Given the patient's lack of ongoing ICU needs, will sign off. Please call with any additional questions. IMPRESSIONS: 1. Acute respiratory failure secondary to MSSA and Klebsiella pneumonia The patient is currently responding well to therapy. Continue antibiotics as ordered. Wean supplemental oxygen as tolerated. Encourage incentive spirometer use and mobilize patient as tolerated. Prednisone can be weaned by 10 mg every 3 days. Perform walking oximetry study prior to consideration for discharge. The patient can follow-up in the pulmonary medicine clinic within 2 weeks of her discharge. 2. Cardiogenic shock secondary to bradycardia Resolved. The patient has been weaned from all vasopressor support at this time. In fact, the patient is consistently hypertensive. Cardiology is following to assist with management. 3. Acute kidney injury on CKD Improved. Likely secondary to ischemic ATN. Nephrology is following. 4. Hypertensive urgency Will defer management of the patient's hypertension to cardiology, who is currently following. 5. GERD/anxiety/morbid obesity/hyperlipidemia/CAD status post CABG/reported COPD/diabetes mellitus Complicates care, management, recovery and prognosis. Continue Lantus and sliding scale insulin coverage. This note was generated with [employer] ([employer]ation software. It may contain incorrect words, spelling, and punctuation that were not noted in checking the note before signing. Code Visit Inpatient E&M: 70724 Subs Hosp L2
[2018-06-11] MEDS: Gabapentin 300 MG Capsule PO ×2 (09:44→16:10)
[2018-06-11] MEDS: predniSONE 20 MG Tablet 40 MG PO (09:44)
[2018-06-11] MEDS: Losartan Potassium 100 MG Tablet PO (09:46)
[2018-06-11] MEDS: Carvedilol 3.125 MG TABLET PO ×2 (09:47→21:27)
[2018-06-11] MEDS: Famotidine 20 MG Tablet PO (09:48)
[2018-06-11] MEDS: Enoxaparin 30 MG/0.3 ML Syringe SC (09:48)
[2018-06-11] MEDS: amLODIPine 10 MG Tablet PO (09:48)
--- NOTE | 2018-06-11 09:53 | PCM.PN.REN ---
Patient Problems: Active and Suspected Problems Respiratory failure with hypoxia (Acute) Acute exacerbation of chronic obstructive pulmonary disease (COPD) (Acute) Bronchospasm (Acute) Viral conjunctivitis (Acute) Allergic conjunctivitis (Acute) Chemosis of conjunctiva (Acute) Bradycardia (Acute) Hypotension (Acute) Decreased responsiveness (Acute) Acute hypoxic respiratory failure (Acute) Subjective: Pt is doing well. No nausea No vomiting. No SOB No CP. Good appetite - Physical Exam General: Alert, Oriented x3 HEENT: Atraumatic Oral: Moist Mucosa Neck: Supple, No JVD Lungs: Clear to auscultation, Normal air movement, No rhonchi, No wheeze Cardiovascular: Regular rate, Regular Rhythm, Normal S1, Normal S2 Abdomen: Bowel Sounds Present, Soft, Non Tender, Non-Distended Extremities: No clubbing, No cyanosis, No edema Skin: No rashes Musculoskeletal: No Tenderness to Palpation of Joints or Extremities Lymphatic: No Cervical, Supraclavicular, or Inguinal Adenopathy Neurological: Cranial nerves II-XII grossly intact, Neuro grossly intact Psych/Mental Status: Appropriate Vital Signs Temp Pulse Resp BP Pulse Ox 98.2 F 79 16 194/71 H 91 06/11/18 06:23 06/11/18 07:02 06/11/18 07:02 06/11/18 06:28 06/11/18 07:02 Oxygen Flow Rate (L/min) 1 Oxygen Delivery Method Nasal Cannula Weight: 114.7 kg Body Mass Index (BMI) 43.9 Finger Stick Blood Glucose 155 Intake and Output for Last 24 Hours 06/09/18 06/10/18 06/11/18 23:59 23:59 23:59 Intake Total 2480 / 2480 1877 / 1877 615 / 615 Output Total 4750 / 4750 5160 / 5160 650 / 650 Balance -2270 / -2270 -3283 / -3283 -35 / -35 Microbiology Past 72 Hours 06/02/18 20:45 Blood Culture - Final Blood Culture (Wb) - Anticubital Left No growth in 5 days. 06/02/18 20:45 Blood Culture - Final Blood Culture (Wb) - Central Line No growth in 5 days. Laboratory Tests Past 24 Hrs 06/09/18 06/10/18 06/10/18 05:45 04:10 10:05 WBC RBC Hgb Hct MCV MCH MCHC RDW RDW Differential Plt Count MPV Neut % (Auto) Absolute Neuts (auto) Absolute Lymphs (auto) Total Counted Neutrophils % (Manual) Band Neutrophils % Lymphocytes % (Manual) Monocytes % (Manual) Eosinophils % (Manual) Nucleated RBCs/100 WBC Diff Path Review Reviewed Reviewed Platelet Estimate RBC Morphology APTT 29.7 Sodium Potassium Chloride Carbon Dioxide Anion Gap BUN Creatinine Estim Creat Clear Calc Est GFR (MDRD) Af Amer Est GFR (MDRD) Non-Af BUN/Creatinine Ratio Glucose Calcium 06/11/18 06/11/18 05:05 05:05 WBC 14.7 H RBC 3.71 L Hgb 10.2 L Hct 32.7 L MCV 88.1 MCH 27.5 MCHC 31.2 L RDW 16.5 H RDW Differential 50.8 H Plt Count 406 MPV 9.8 Neut % (Auto) Not Reportable Absolute Neuts (auto) 11.0 H Absolute Lymphs (auto) 2.35 Total Counted 100 Neutrophils % (Manual) 73 H Band Neutrophils % 2 Lymphocytes % (Manual) 16 L Monocytes % (Manual) 6 Eosinophils % (Manual) 3 Nucleated RBCs/100 WBC 1 Diff Path Review May foll Platelet Estimate ADEQUATE RBC Morphology NORM C+C APTT Sodium 144 Potassium 3.5 Chloride 105 Carbon Dioxide 33.0 H Anion Gap 6 BUN 60 H Creatinine 1.12 H Estim Creat Clear Calc 38.11 Est GFR (MDRD) Af Amer 62 Est GFR (MDRD) Non-Af 51 L BUN/Creatinine Ratio 53.6 H Glucose 84 Calcium 8.6 POC Glucose 06/11/18 06/10/18 06/10/18 06:42 21:57 16:05 POC Glucose 93 199 H 207 H 06/10/18 11:29 POC Glucose 227 H Medical Necessity - Tobacco Use Smoking Status: Former smoker Tobacco Use: Cigarettes Assessment/Plan All Active Problems Respiratory failure with hypoxia (Acute) Acute exacerbation of chronic obstructive pulmonary disease (COPD) (Acute) Bronchospasm (Acute) Viral conjunctivitis (Acute) Allergic conjunctivitis (Acute) Chemosis of conjunctiva (Acute) Bradycardia (Acute) Hypotension (Acute) Decreased responsiveness (Acute) Acute hypoxic respiratory failure (Acute) Acute kidney injury (Acute) Prerenal azotemia (Resolved) 1- KURT on CKD stage 3. Baseline Cr 1.1-1.3 mg/dl KURT is due to ischemic ATN related to sepsis. I doubt another KURT etiology for now Renal function is improving. Last creatinine trends 3.3->2.37->1.74->1.49>1.34>1.12 in the last 5 days. BUN level is also improving. Pt has polyuria from ATN recovery. Please avoid diuretics. electrolytes are Ok 2- Acute RF from pneumonia/COPD exacerbation. Off vent. On NC now COPD and Abx as per the primary service 3- cardiogenic shock from medications induced bradycardia. Resolved. Off pressors. 4-hypertension. Blood pressure is elevated. losartan and coreg were added Continue the same other BP meds Continue to monitor BP 5- Hypernatremia: resolved. Na is 144 encouraged PO H20 intake Plan of care was d/w Dr. Ken Renal team will continue to follow Please call if any question at [phone] Dewayne Hughes MD
[2018-06-11] MEDS: hydroCHLOROthiazide 25 MG Tablet PO (09:54)
--- NOTE | 2018-06-11 10:31 | PCM.PN.HOSP ---
Patient Problems: Active and Suspected Problems Respiratory failure with hypoxia (Acute) Acute exacerbation of chronic obstructive pulmonary disease (COPD) (Acute) Bronchospasm (Acute) Viral conjunctivitis (Acute) Allergic conjunctivitis (Acute) Chemosis of conjunctiva (Acute) Bradycardia (Acute) Hypotension (Acute) Decreased responsiveness (Acute) Acute hypoxic respiratory failure (Acute) Subjective: Patient seen and examined. She had no complaints and felt well. She was just 1 L of oxygen. She denied any shortness of breath, cough, chest pain, palpitations or dizziness, diarrhea vomiting. Granddaughter was at her bedside. Review of systems otherwise negative. Labs and vitals reviewed. Vitals/I&O's: Vital Signs Temp Pulse Resp BP Pulse Ox 98.2 F 79 16 194/71 H 91 06/11/18 06:23 06/11/18 07:02 06/11/18 07:02 06/11/18 06:28 06/11/18 07:02 Oxygen Flow Rate (L/min) 1 Oxygen Delivery Method Nasal Cannula Weight: 252 lb 13.923 oz Body Mass Index (BMI) 43.9 Finger Stick Blood Glucose 155 Intake and Output for Last 24 Hours 06/09/18 06/10/18 06/11/18 23:59 23:59 23:59 Intake Total 2480 / 2480 1877 / 1877 615 / 615 Output Total 4750 / 4750 5160 / 5160 650 / 650 Balance -2270 / -2270 -3283 / -3283 -35 / -35 General: Alert, Oriented x3, Cooperative, HEENT: Atraumatic, PERRLA, EOMI, Normocephalic Oral: Dry Mucosa Neck: Supple, No JVD, Negative Carotid Bruits Lungs: - - decreased breath sounds bibasally, no wheezes or crackles Cardiovascular: Regular rate, Regular Rhythm, Normal S1, Normal S2, No murmurs Abdomen: Bowel Sounds Present, Soft, Non Tender, Non-Distended, No Hepato-splenomegaly Extremities: No clubbing, No cyanosis, No edema, Capillary Refill Less than 3 Seconds Skin: No rashes, No breakdown Musculoskeletal: No Tenderness to Palpation of Joints or Extremities Lymphatic: No Cervical, Supraclavicular, or Inguinal Adenopathy Neurological: Cranial nerves II-XII grossly intact, Neuro grossly intact, Motor Exam 5/5 strength throughout Psych/Mental Status: Normal Affect, Appropriate Microbiology Past 72 Hours 06/02/18 20:45 Blood Culture (Wb) - Anticubital Left Blood Culture - Final No growth in 5 days. 06/02/18 20:45 Blood Culture (Wb) - Central Line Blood Culture - Final No growth in 5 days. Laboratory Results 06/09/18 05:45: Diff Path Review Reviewed 06/10/18 04:10: Diff Path Review Reviewed 06/10/18 11:29: POC Glucose 227 H 06/10/18 16:05: POC Glucose 207 H 06/10/18 21:57: POC Glucose 199 H 06/11/18 05:05: WBC 14.7 H, RBC 3.71 L, Hgb 10.2 L, Hct 32.7 L, MCV 88.1, MCH 27.5, MCHC 31.2 L, RDW 16.5 H, RDW Differential 50.8 H, Plt Count 406, MPV 9.8, Neut % (Auto) Not Reportable, Absolute Neuts (auto) 11.0 H, Absolute Lymphs (auto) 2.35, Total Counted 100, Neutrophils % (Manual) 73 H, Band Neutrophils % 2, Lymphocytes % (Manual) 16 L, Monocytes % (Manual) 6, Eosinophils % (Manual) 3, Nucleated RBCs/100 WBC 1, Diff Path Review July, Platelet Estimate ADEQUATE, RBC Morphology NORM C+C 06/11/18 05:05: Sodium 144, Potassium 3.5, Chloride 105, Carbon Dioxide 33.0 H, Anion Gap 6, BUN 60 H, Creatinine 1.12 H, Estim Creat Clear Calc 38.11, Est GFR (MDRD) Af Amer 62, Est GFR (MDRD) Non-Af 51 L, BUN/Creatinine Ratio 53.6 H, Glucose 84, Calcium 8.6 06/11/18 06:42: POC Glucose 93 Current Medications Albuterol Sulfate (Ventolin Aerosols) 2.5 mg INHALATION Q2H PRN PRN PRN Reason: SHORTNESS OF BREATH Albuterol/Ipratropium (Duoneb) 3 ml INHALATION Q4HWA.RT [facility] Last Admin: 06/11/18 07:02 Dose: 3 ml Amlodipine Besylate (Norvasc) 10 mg PO DAILY [facility] Last Admin: 06/11/18 09:48 Dose: 10 mg Atorvastatin Calcium (Lipitor) 80 mg PO QHS [facility] Last Admin: 06/10/18 22:04 Dose: 80 mg Carvedilol (Coreg) 3.125 mg PO BID [facility] Last Admin: 06/11/18 09:47 Dose: 3.125 mg Chlorhexidine Gluconate () 1 each TOPICAL DAILY [facility] Last Admin: 06/11/18 09:45 Dose: Not Given Dextrose (D50w Syringe) 0 gm IV X1 PRN; Protocol PRN Reason: Hypoglycemia Enoxaparin Sodium (Lovenox) 30 mg SC DAILY@1000 [facility] Last Admin: 06/11/18 09:48 Dose: 30 mg Famotidine (Pepcid) 20 mg PO DAILY [facility] Last Admin: 06/11/18 09:48 Dose: 20 mg Gabapentin (Neurontin) 300 mg PO BIDCM [facility] Last Admin: 06/11/18 09:44 Dose: 300 mg Glucagon () 1 mg IM .X1 PRN PRN Reason: Hypoglycemia Hydralazine HCl (Apresoline Iv) 20 mg IV Q4H PRN PRN PRN Reason: BLOOD PRESSURE Last Admin: 06/09/18 11:51 Dose: 20 mg Hydralazine HCl (Apresoline) 100 mg PO TID [facility] Last Admin: 06/11/18 06:28 Dose: 100 mg Hydrochlorothiazide (Hctz) 25 mg PO DAILY [facility] Last Admin: 06/11/18 09:54 Dose: 25 mg Sodium Chloride () 250 mls @ 15 mls/hr IV .[id number] PRN PRN Reason: SALINE FLUSH Last Admin: 06/08/18 04:42 Dose: 15 mls/hr Ampicillin Sodium/Sulbactam (Sodium 3 gm/ Sodium Chloride) 112 mls @ 150 mls/hr IV Q8 [facility] Stop: 06/11/18 22:45 Last Admin: 06/11/18 06:28 Dose: 150 mls/hr Insulin Glargine (Lantus (Bkc)) 20 units SC 1800 [facility] Last Admin: 06/10/18 16:17 Dose: 20 u Insulin Glargine (Lantus (Bkc)) 15 units SC BREAKFAST [facility] Last Admin: 06/11/18 09:44 Dose: 15 u Insulin Human Lispro (Humalog Kwikpen (Bk)) 0 unit SC ACHS [facility]; Protocol Last Admin: 06/11/18 07:37 Dose: Not Given Labetalol HCl (Trandate) 20 mg IV Q6H [facility] Last Admin: 06/11/18 02:49 Dose: 20 mg Losartan Potassium (Cozaar) 100 mg PO DAILY [facility] Last Admin: 06/11/18 09:46 Dose: 100 mg Melatonin (Melatonin) 5 mg PO QHS PRN PRN Reason: INSOMNIA Last Admin: 06/09/18 23:05 Dose: 5 mg Ondansetron HCl (Zofran) 4 mg IV Q6H PRN PRN PRN Reason: NAUSEA/VOMITING Pot[facility]nisone () 40 mg PO DAILY@0800 [facility] Last Admin: 06/11/18 09:44 Dose: 40 mg Sodium Chloride () 5 - 15 ml IV UD PRN PRN Reason: SALINE FLUSH Last Admin: 06/11/18 06:28 Dose: 10 ml Sodium Chloride () 10 - 40 ml IV UD PRN PRN Reason: MULTILUMEN/HICMAN CATH FLUSH Last Admin: 06/11/18 05:11 Dose: 20 ml Medical Necessity - Tobacco Use Smoking Status: Former smoker Tobacco Use: Cigarettes Assessment/Plan All Active Problems Respiratory failure with hypoxia (Acute) Acute exacerbation of chronic obstructive pulmonary disease (COPD) (Acute) Bronchospasm (Acute) Viral conjunctivitis (Acute) Allergic conjunctivitis (Acute) Chemosis of conjunctiva (Acute) Bradycardia (Acute) Hypotension (Acute) Decreased responsiveness (Acute) Acute hypoxic respiratory failure (Acute) Acute kidney injury (Acute) Prerenal azotemia (Resolved) 1. Cardiogenic shock due to bradycardia resolved bradycardia was likely medication induced, as HR is now stable since medications were stopped. 2D echo showed EF of 60%, with stage 2 diastolic dysfunction and normal LV systolic function 2. 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 Community acquired pneumonia: as under 2. 4. Bracycardia, likely medication induced: as under 1. 5. KURT on CKD likely pre-renal due to medication induced hypotension and bradycardia Cr down to 1.12 today nephrology on board; being diuresed with IV lasix; urine output was 5.1L yesteday, in negative balance by 3.28L since yesterday. kidney and bladder USG showed mild echogenic cortex of the kidneys which may be due to medical renal disease furosemide discontinued will monitor urine output. 6. Hypertension: poorly controlled admitted with hypertensive urgency which resolved. Currently BP is in 190s systolic on amlodipine 10mg daily and clonidine 0.1mg tid. Carvedilol 3.125mg bid and hydralazine 100mg tid as well as HCTZ 25mg daily added on. IV hydralazine prn 7. MEtabolic alkalosis: bicarb is still 33, likely due to contraction alkalosis from diuresis with lasix. WIll continue monitoring, lasix discontinued 8. Hypernatremia: resolved. Na is down to 144 today. 9. Type 2 diabetes mellitus Metformin on hold on account of KURT. Insulin lantus increased to 20IU qhs and 15IU qam. Insulin sliding scale. Accu-Cheks ACHS 10. GERD: on PPI. 11. Acute viral conjunctivitis: Resolved. 12. Mild hyponatremia: resolved. 13. Hyperlipidemia: On statin 14. Anemia: Hb is up to 10.2 today. Iron panel showed normal iron level of 59 and iron saturation of 22.4 Nutrition: . 2gram low Na diet. DVT prophylaxis: renal dose of lovenox GI prophylaxis: on lansoprazole 30mg daily. Disposition: will need rehab upon discharge, as recommended by PT. however refuses and wishes to go home with home health care. Code Visit Inpatient E&M: 93221 [facility] [[email or web address] Hosp L3
--- NOTE | 2018-06-11 10:38 | PN_ITS ---
Patient Problems: Active and Suspected Problems Respiratory failure with hypoxia (Acute) Acute exacerbation of chronic obstructive pulmonary disease (COPD) (Acute) Bronchospasm (Acute) Viral conjunctivitis (Acute) Allergic conjunctivitis (Acute) Chemosis of conjunctiva (Acute) Bradycardia (Acute) Hypotension (Acute) Decreased responsiveness (Acute) Acute hypoxic respiratory failure (Acute) Subjective: Patient seen and examined. She had no complaints and felt well. She was just 1 L of oxygen. She denied any shortness of breath, cough, chest pain, palpitations or dizziness, diarrhea vomiting. Granddaughter was at her bedside. Review of systems otherwise negative. Labs and vitals reviewed. Vitals/I&O's: Vital Signs Temp Pulse Resp BP Pulse Ox 98.2 F 79 16 194/71 H 91 06/11/18 06:23 06/11/18 07:02 06/11/18 07:02 06/11/18 06:28 06/11/18 07:02 Oxygen Flow Rate (L/min) 1 Oxygen Delivery Method Nasal Cannula Weight: 252 lb 13.923 oz Body Mass Index (BMI) 43.9 Finger Stick Blood Glucose 155 Intake and Output for Last 24 Hours 06/09/18 06/10/18 06/11/18 23:59 23:59 23:59 Intake Total 2480 / 2480 1877 / 1877 615 / 615 Output Total 4750 / 4750 5160 / 5160 650 / 650 Balance -2270 / -2270 -3283 / -3283 -35 / -35 General: Alert, Oriented x3, Cooperative, HEENT: Atraumatic, PERRLA, EOMI, Normocephalic Oral: Dry Mucosa Neck: Supple, No JVD, Negative Carotid Bruits Lungs: - - decreased breath sounds bibasally, no wheezes or crackles Cardiovascular: Regular rate, Regular Rhythm, Normal S1, Normal S2, No murmurs Abdomen: Bowel Sounds Present, Soft, Non Tender, Non-Distended, No Hepato- splenomegaly Extremities: No clubbing, No cyanosis, No edema, Capillary Refill Less than 3 Seconds Skin: No rashes, No breakdown Musculoskeletal: No Tenderness to Palpation of Joints or Extremities Lymphatic: No Cervical, Supraclavicular, or Inguinal Adenopathy Neurological: Cranial nerves II-XII grossly intact, Neuro grossly intact, Motor Exam 5/5 strength throughout Psych/Mental Status: Normal Affect, Appropriate Microbiology Past 72 Hours 06/02/18 20:45 Blood Culture (Wb) - Anticubital Left Blood Culture - Final No growth in 5 days. 06/02/18 20:45 Blood Culture (Wb) - Central Line Blood Culture - Final No growth in 5 days. Laboratory Results 06/09/18 05:45: Diff Path Review Reviewed 06/10/18 04:10: Diff Path Review Reviewed 06/10/18 11:29: POC Glucose 227 H 06/10/18 16:05: POC Glucose 207 H 06/10/18 21:57: POC Glucose 199 H 06/11/18 05:05: WBC 14.7 H, RBC 3.71 L, Hgb 10.2 L, Hct 32.7 L, MCV 88.1, MCH 27.5, MCHC 31.2 L, RDW 16.5 H, RDW Differential 50.8 H, Plt Count 406, MPV 9.8, Neut % (Auto) Not Reportable, Absolute Neuts (auto) 11.0 H, Absolute Lymphs (auto) 2.35, Total Counted 100, Neutrophils % (Manual) 73 H, Band Neutrophils % 2, Lymphocytes % (Manual) 16 L, Monocytes % (Manual) 6, Eosinophils % (Manual) 3, Nucleated RBCs/100 WBC 1, Diff Path Review July, Platelet Estimate ADEQUATE, RBC Morphology NORM C+C 06/11/18 05:05: Sodium 144, Potassium 3.5, Chloride 105, Carbon Dioxide 33.0 H, Anion Gap 6, BUN 60 H, Creatinine 1.12 H, Estim Creat Clear Calc 38.11, Est GFR (MDRD) Af Amer 62, Est GFR (MDRD) Non-Af 51 L, BUN/Creatinine Ratio 53.6 H, Glucose 84, Calcium 8.6 06/11/18 06:42: POC Glucose 93 Current Medications Albuterol Sulfate (Ventolin Aerosols) 2.5 mg INHALATION Q2H PRN PRN PRN Reason: SHORTNESS OF BREATH Albuterol/Ipratropium (Duoneb) 3 ml INHALATION Q4HWA.RT [facility] Last Admin: 06/11/18 07:02 Dose: 3 ml Amlodipine Besylate (Norvasc) 10 mg PO DAILY [facility] Last Admin: 06/11/18 09:48 Dose: 10 mg Atorvastatin Calcium (Lipitor) 80 mg PO QHS [facility] Last Admin: 06/10/18 22:04 Dose: 80 mg Carvedilol (Coreg) 3.125 mg PO BID [facility] Last Admin: 06/11/18 09:47 Dose: 3.125 mg Chlorhexidine Gluconate () 1 each TOPICAL DAILY [facility] Last Admin: 06/11/18 09:45 Dose: Not Given Dextrose (D50w Syringe) 0 gm IV X1 PRN; Protocol PRN Reason: Hypoglycemia Enoxaparin Sodium (Lovenox) 30 mg SC DAILY@1000 [facility] Last Admin: 06/11/18 09:48 Dose: 30 mg Famotidine (Pepcid) 20 mg PO DAILY [facility] Last Admin: 06/11/18 09:48 Dose: 20 mg Gabapentin (Neurontin) 300 mg PO BIDCM [facility] Last Admin: 06/11/18 09:44 Dose: 300 mg Glucagon () 1 mg IM .X1 PRN PRN Reason: Hypoglycemia Hydralazine HCl (Apresoline Iv) 20 mg IV Q4H PRN PRN PRN Reason: BLOOD PRESSURE Last Admin: 06/09/18 11:51 Dose: 20 mg Hydralazine HCl (Apresoline) 100 mg PO TID [facility] Last Admin: 06/11/18 06:28 Dose: 100 mg Hydrochlorothiazide (Hctz) 25 mg PO DAILY [facility] Last Admin: 06/11/18 09:54 Dose: 25 mg Sodium Chloride () 250 mls @ 15 mls/hr IV .[id number] PRN PRN Reason: SALINE FLUSH Last Admin: 06/08/18 04:42 Dose: 15 mls/hr Ampicillin Sodium/Sulbactam (Sodium 3 gm/ Sodium Chloride) 112 mls @ 150 mls/hr IV Q8 [facility] Stop: 06/11/18 22:45 Last Admin: 06/11/18 06:28 Dose: 150 mls/hr Insulin Glargine (Lantus (Bkc)) 20 units SC 1800 [facility] Last Admin: 06/10/18 16:17 Dose: 20 u Insulin Glargine (Lantus (Bkc)) 15 units SC BREAKFAST [facility] Last Admin: 06/11/18 09:44 Dose: 15 u Insulin Human Lispro (Humalog Kwikpen (Bk)) 0 unit SC ACHS [facility]; Protocol Last Admin: 06/11/18 07:37 Dose: Not Given Labetalol HCl (Trandate) 20 mg IV Q6H [facility] Last Admin: 06/11/18 02:49 Dose: 20 mg Losartan Potassium (Cozaar) 100 mg PO DAILY [facility] Last Admin: 06/11/18 09:46 Dose: 100 mg Melatonin (Melatonin) 5 mg PO QHS PRN PRN Reason: INSOMNIA Last Admin: 06/09/18 23:05 Dose: 5 mg Ondansetron HCl (Zofran) 4 mg IV Q6H PRN PRN PRN Reason: NAUSEA/VOMITING Potassium [facility]one () 40 mg PO DAILY@0800 [facility] Last Admin: 06/11/18 09:44 Dose: 40 mg Sodium Chloride () 5 - 15 ml IV UD PRN PRN Reason: SALINE FLUSH Last Admin: 06/11/18 06:28 Dose: 10 ml Sodium Chloride () 10 - 40 ml IV UD PRN PRN Reason: MULTILUMEN/HICMAN CATH FLUSH Last Admin: 06/11/18 05:11 Dose: 20 ml Medical Necessity - Tobacco Use Smoking Status: Former smoker Tobacco Use: Cigarettes Assessment/Plan All Active Problems Respiratory failure with hypoxia (Acute) Acute exacerbation of chronic obstructive pulmonary disease (COPD) (Acute) Bronchospasm (Acute) Viral conjunctivitis (Acute) Allergic conjunctivitis (Acute) Chemosis of conjunctiva (Acute) Bradycardia (Acute) Hypotension (Acute) Decreased responsiveness (Acute) Acute hypoxic respiratory failure (Acute) Acute kidney injury (Acute) Prerenal azotemia (Resolved) 1. Cardiogenic shock due to bradycardia * resolved * bradycardia was likely medication induced, as HR is now stable since medications were stopped. * 2D echo showed EF of 60%, with stage 2 diastolic dysfunction and normal LV systolic function * 2. Acute hypoxic and hypercapnic respiratory failure due to probable COPD exacerbation and pneumonia * was successfully extubated; now on 1L of oxygen * on breathing treatments and IV solumedrol * rn mental health on board * sputum cultured Klebsiella pneumoniae and MSSA * on IV unasyn * 3. Community acquired pneumonia: as under 2. 4. Bracycardia, likely medication induced: as under 1. 5. KURT on CKD * likely pre-renal due to medication induced hypotension and bradycardia * Cr down to 1.12 today * nephrology on board; * being diuresed with IV lasix; urine output was 5.1L yesteday, in negative balance by 3.28L since yesterday. * kidney and bladder USG showed mild echogenic cortex of the kidneys which may be due to medical renal disease * furosemide discontinued * will monitor urine output. 6. Hypertension: * poorly controlled * admitted with hypertensive urgency which resolved. Currently BP is in 190s systolic * on amlodipine 10mg daily and clonidine 0.1mg tid. Carvedilol 3.125mg bid and hydralazine 100mg tid as well as HCTZ 25mg daily added on. * IV hydralazine prn 7. MEtabolic alkalosis: * bicarb is still 33, likely due to contraction alkalosis from diuresis with lasix. * WIll continue monitoring, lasix discontinued * * 8. Hypernatremia: resolved. Na is down to 144 today. 9. Type 2 diabetes mellitus * Metformin on hold on account of KURT. Insulin lantus increased to 20IU qhs and 15IU qam. Insulin sliding scale. Accu-Cheks ACHS 10. GERD: on PPI. 11. Acute viral conjunctivitis: Resolved. 12. Mild hyponatremia: resolved. 13. Hyperlipidemia: On statin 14. Anemia: Hb is up to 10.2 today. Iron panel showed normal iron level of 59 and iron saturation of 22.4 Nutrition: . 2gram low Na diet. DVT prophylaxis: renal dose of lovenox GI prophylaxis: on lansoprazole 30mg daily. Disposition: will need rehab upon discharge, as recommended by PT. however refuses and wishes to go home with home health care. Code Visit Inpatient E&M: 75935 Subs Hosp L3
[2018-06-11 11:11] LABS: Bedside Glucose 131 mg/dL (70-110)
[2018-06-11 12:17] LABS: Pathologist Review Reviewed
[2018-06-11 12:36] LABS: Pathologist Review Reviewed
--- NOTE | 2018-06-11 14:38 | CASEMGMT ---
This RN CM to room to see if pt/family picked a [facility] agency at this time. Pt's daughter states that pt lives with her and her and that they have bathroom set up with walk in shower. Pt states also has access to walker, if needed. Pt has numerous family members for support. Pt/family did ask multiple questions to this RN CM regarding therapy recommendations, pt choices at discharge, etc. and this RN CM spent awhile in the room explaining all to pt/family at this time. Pt is agreeable to [facility] still at this time and daughter states would like [facility]. Call to [facility] and they states to call another agency as they would not be able to see pt until the weekend or next week. Daughter updated at this time and states that they would like to try [facility] at this time. Call to Prema at [facility] and she states that they should be able to take pt at this time. Order for RN, PT/OT placed in [facility] at this time. This RN CM to follow for home oxygen need and for any further discharge planning/needs that arise. SStcynthia RN CM
[2018-06-11] MEDS: Insulin Lispro 100 UNIT/ML INSULN.PEN SC ×2 (16:10→21:27)
[2018-06-11 16:21] LABS: Bedside Glucose 164 mg/dL (70-110)
--- NOTE | 2018-06-11 18:28 | PCM.PN.CARD ---
Subjectve: The patient is to be without acute chest discomfort or worsening shortness of breath/dyspnea. She has been up and ambulating in her room but not yet in the hallway. Objective: Vital Signs Temp Pulse Resp BP Pulse Ox 98.4 F 77 18 160/64 H 94 06/11/18 17:50 06/11/18 17:50 06/11/18 17:50 06/11/18 17:50 06/11/18 17:50 Oxygen Flow Rate (L/min) 1 Oxygen Delivery Method Nasal Cannula Weight: 252 lb 13.923 oz Body Mass Index (BMI) 43.9 Finger Stick Blood Glucose 155 Intake and Output for Last 24 Hours 06/09/18 06/10/18 06/11/18 23:59 23:59 23:59 Intake Total 2480 / 2480 1877 / 1877 1095 / 1095 Output Total 4750 / 4750 5160 / 5160 1000 / 1000 Balance -2270 / -2270 -3283 / -3283 95 / 95 General: Awake, Alert, Oriented x 3, Cooperative, No Acute Distress HEENT: Atraumatic, Normocephalic, PERRL, EOMI, Sclera Non Icteric Oral: Moist Mucosa Neck: Supple, Good ROM, No JVD Lungs: - - No obvious rales or rhonchi Cardiovascular: Regular Rhythm, Normal S1, Normal S2 Murmur Murmur: Grade 2/6, Mid Systolic, LLSB, LVOT Abdomen: Bowel Sounds Present, Soft, Non Tender Extremities: Trace LLE Edema Psych/Mental Status: Appropriate 06/11/18 05:05: WBC 14.7 H, RBC 3.71 L, Hgb 10.2 L, Hct 32.7 L, MCV 88.1, MCH 27.5, MCHC 31.2 L, RDW 16.5 H, RDW Differential 50.8 H, Plt Count 406, MPV 9.8, Neut % (Auto) Not Reportable, Absolute Neuts (auto) 11.0 H, Total Counted 100, Neutrophils % (Manual) 73 H, Band Neutrophils % 2, Lymphocytes % (Manual) 16 L, Monocytes % (Manual) 6, Eosinophils % (Manual) 3 06/11/18 05:05: Sodium 144, Potassium 3.5, Chloride 105, Carbon Dioxide 33.0 H, Anion Gap 6, BUN 60 H, Creatinine 1.12 H, Est GFR (MDRD) Af Amer 62, Est GFR (MDRD) Non-Af 51 L, BUN/Creatinine Ratio 53.6 H, Glucose 84, Calcium 8.6 Rhythm: Sinus rhythm Medical Necessity - Tobacco Use Smoking Status: Former smoker Tobacco Use: Cigarettes Assessment/Plan 1. Bradycardia/hypotension The patient remains in sinus rhythm. There is been caution with respect to restarting rate limiting medications to avoid repeat episodes of bradycardia dysrhythmias. The patient appeared to tolerate clonidine without obvious bradycardia dysrhythmias. Her clonidine was discontinued. She was subsequently placed on low-dose carvedilol therapy. As far she appears to be tolerating it without any obvious significant bradycardia dysrhythmias. 2. CAD status post CABG She has undergone evaluation with formal transthoracic echocardiogram during sinus rhythm. Her overall left ventricular size, wall motion, and systolic function was considered normal with an LVEF of 60%. A [facility] CABG report was placed on her chart. It appears she received a NATHAN to the LAD, and SVG to the diagonal branch, and SVG to the LCx system, and an SVG to the RCA. 3. Hyperlipidemia She will continue lipid-lowering therapy as deemed appropriate. 4. Hypertension Her medications have been adjusted. She is now on low-dose beta-cha, a hydrochlorothiazide diuretic, her loop diuretics have been discontinued, and ARB, calcium channel antagonist, and a vasodilator-hydralazine. Overall, today, her blood pressure appears to be somewhat improved. She will continue medical management. Her vital signs will be followed. Her BMP will need to be followed. 5. Diabetes mellitus She will continue under the care of internal medicine for this. 6. COPD She apparently has long-standing COPD. She will continue evaluation care by internal medicine and pulmonology/critical care medicine. 6. Renal insufficiency Her creatinine level has improved. BMP will need to be followed for her potassium level and renal function. She is being followed by nephrology. This note was generated with [employer] software. It may contain incorrect words, spelling, and punctuation that were not noted in checking the note before signing.
[2018-06-11] MEDS: Loperamide 2 MG Capsule PO (19:57)
[2018-06-11] MEDS: Atorvastatin Calcium 80 MG Tablet PO (21:28)
[2018-06-11 22:01] LABS: Bedside Glucose 186 mg/dL (70-110)
[2018-06-12] VITALS (11 sets, daily range): BP systolic 154–179; BP diastolic 49–70; PULSE 65–85; RESP 16–20; TEMP 36.6–36.8; O2SAT 90–94
[2018-06-12] MEDS: 0.9% NaCl Peripheral Flush Adult/Peds IV ×2 (03:10→04:36)
[2018-06-12] MEDS: hydrALAZINE 20 MG/ML Vial IV (04:36)
[2018-06-12 04:51] LABS: Differential Indicated MANUAL DIFF; Hematocrit 31.4 % (37-47); Mean Corp Hgb Conc 31.8 g/gl (32-36); Mean Corpuscular Hgb 27.9 pg (27.0-32.0); Mean Corpuscular Volume 87.5 fL (81-99); POSITIVE COUNT YES; POSITIVE DIFFERENTIAL NO; POSITIVE MORPHOLOGY YES; Platelet Count 343 K/mm3 (150-450); RBC Distribution Width CV 16.3 % (11.6-14.6); RBC Distribution Width SD 50.3 fl (35.1-43.9); Red Blood Count 3.59 M/mm3 (4.2-5.4); White Blood Count 12.7 K/mm3 (4.4-11.0)
[2018-06-12 05:02] LABS: BUN 58 mg/dL (7-18); Creatinine, Serum 1.39 mg/dL (0.55-1.02); EST Glomerular Filtration Rate 40 mL/min (>60); Estimated Creatinine Clearance 30.71 ml/min; Glucose 76 mg/dL (74-106)
[2018-06-12 05:03] LABS: Anion Gap 8 (5-15); BUN/Creat Ratio 41.7 RATIO (10-20); Calcium,Total 8.2 mg/dL (8.5-10.1); Chloride 104 mmol/L (98-107); Est Glom Filt Rate - Afr Amer 48 mL/min (>60); Potassium 3.6 mmol/L (3.5-5.1); Sodium Level 144 mmol/L (136-145)
[2018-06-12 05:36] LABS: Anisocytosis 1+; Eosinophil 1 % (0-5); Hypochromasia 1+; Lymphocyte 9 % (19-41); Monocyte 5 % (0-10); Neutrophil-Band 2 % (0-5); Neutrophil-Segmented 83 % (47-70); Polychromasia 1+; Total Cells Counted 100 (MANUAL DIFF)
[2018-06-12 05:37] LABS: Microcytosis 1+; Platelet Estimate ADEQUATE (ADEQ); Platelet Morphology LARGE
[2018-06-12 05:38] LABS: Absolute Lymphocyte Count 1.14 X10^3/ul (0.83-4.51); Absolute Neutrophil Count 10.8 X10^3/uL (2.0-7.7)
[2018-06-12] MEDS: hydrALAZINE 50 MG Tablet 100 MG PO (05:56)
[2018-06-12 06:56] LABS: Bedside Glucose 74 mg/dL (70-110)
[2018-06-12] MEDS: Ipratropium/Albuterol Sulfate 3 ML AMPUL.NEB INHALATION ×2 (07:09→10:36)
[2018-06-12] MEDS: Enoxaparin 30 MG/0.3 ML Syringe SC (09:40)
[2018-06-12] MEDS: Carvedilol 3.125 MG TABLET PO (09:41)
[2018-06-12] MEDS: amLODIPine 10 MG Tablet PO (09:41)
[2018-06-12] MEDS: Gabapentin 300 MG Capsule PO (09:41)
[2018-06-12] MEDS: predniSONE 20 MG Tablet 40 MG PO (09:41)
[2018-06-12] MEDS: Losartan Potassium 100 MG Tablet PO (09:41)
[2018-06-12] MEDS: Famotidine 20 MG Tablet PO (09:41)
[2018-06-12] MEDS: hydroCHLOROthiazide 25 MG Tablet PO (09:42)
--- NOTE | 2018-06-12 10:11 | CASEMGMT ---
Per Dr. Ken, pt to be discharged today. [facility] order already placed for RN, PT/OT and Prema at [facility] is aware at this time. Dyan PADILLA CM
--- NOTE | 2018-06-12 10:23 | PCM.DC ---
- Discharge Diagnoses Current Active Problems: Current Active and Chronic Problems Respiratory failure with hypoxia (Acute) Acute exacerbation of chronic obstructive pulmonary disease (COPD) (Acute) Bronchospasm (Acute) Viral conjunctivitis (Acute) Allergic conjunctivitis (Acute) Chemosis of conjunctiva (Acute) Bradycardia (Acute) Hypotension (Acute) HTN (hypertension) (Chronic) Decreased responsiveness (Acute) Acute hypoxic respiratory failure (Acute) You will use the following diet at home:: Cardiac Your food should be the consistency of: Regular Your liquids should be the consistency of: Regular/Thin Discharge Activity: Return to Normal Activity Weight Bearing Status: Weight bearing as tolerated Call your doctor if you observe: Fever of 101 or Higher, Shortness of breath, Swelling in the ankles, Chest pain Instructions: Inside the ICU (Intensive Care Unit), Understanding Ventilators, Discharge Instructions for Acute Kidney Injury, Discharge Instructions: COPD Allergies/Adverse Reactions: Allergies Penicillins Allergy (Verified 06/01/18 10:05) Hives adhesive tape Adverse Reaction (Verified 06/01/18 10:05) Other Medications to take at Discharge Amitriptyline HCl [Elavil] 100 mg PO QHS 04/09/13 Metformin(XR) [Glucophage Xr] 500 mg PO DAILY 12/25/16 Omeprazole 40 mg PO DAILY 12/25/16 Pioglitazone [Actos] 30 mg PO DAILY 12/25/16 Tiotropium [place] [Spiriva] 1 puff INHALATION DAILY 12/25/16 Aspirin E.C. [Ecotrin] 81 mg PO DAILY 10/25/17 Atorvastatin Calcium 80 mg PO DAILY 10/25/17 Gabapentin [Neurontin] 300 mg PO .COMPLEX 10/25/17 Losartan Potassium 100 mg PO DAILY 10/25/17 Amlodipine Besylate 10 mg PO DAILY 06/01/18 Carvedilol [Coreg (Beta Nya)] 3.125 mg PO BID #60 tablet 06/12/18 Hydrochlorothiazide [Hctz] 25 mg PO DAILY #30 tablet 06/12/18 Prednisone 10 mg PO UD #30 tab.ds.pk 06/12/18 hydrALAZINE [Apresoline] 100 mg PO TID #90 tablet 06/12/18 The following prescriptions were given: Hydrochlorothiazide [Hctz] 25 mg PO DAILY #30 tablet Prednisone 10 mg PO UD #30 tab.ds.pk Carvedilol [Coreg (Beta Nya)] 3.125 mg PO BID #60 tablet hydrALAZINE [Apresoline] 100 mg PO TID #90 tablet Primary Care Physician: Levi Laird MD [Primary Care Provider] - Please follow up with your Primary Care Physician in: one week Test Results: Test results from this visit will be discussed in further detail at your follow-up appointment, if applicable. Please Follow Up With: Lucien Ferreira MD When: 1-2 weeks Please Follow Up With: Dewayne Hughes MD When: 1-2 weeks Please Follow Up With: Alex Clarke MD When: 1 week Please Follow Up With: Dev Vasquez MD When: 1-2 weeks for eye discharge Proposed Discharge Date: 06/12/18
--- NOTE | 2018-06-12 10:54 | CASEMGMT ---
Per Wenceslao RN, pt did not qualify for home oxygen at this time. This RN CM to room to speak with pt/family and they are updated on this at this time, voice understanding. Advised them that [facility] has been set up for RN, PT/OT and that Prema from [facility] is on her way to speak with pt/family prior to discharge, voice understanding. Pt/family voice no further questions/concerns/needs at this time. Dyan RN CM
--- NOTE | 2018-06-12 10:57 | DS.PCM_ITS ---
Discharge Date and Diagnosis Date of Admission: 06/01/18 Date of Discharge: 06/12/18 - Primary Discharge Diagnosis Active and Suspected Problems Respiratory failure with hypoxia (Acute) Acute exacerbation of chronic obstructive pulmonary disease (COPD) (Acute) Bronchospasm (Acute) Viral conjunctivitis (Acute) Allergic conjunctivitis (Acute) Chemosis of conjunctiva (Acute) Bradycardia (Acute) Hypotension (Acute) Decreased responsiveness (Acute) Acute hypoxic respiratory failure (Acute) - Secondary Discharge Diagnosis Chronic Problems HTN (hypertension) (Chronic) Mitral insufficiency (Chronic) Tricuspid insufficiency (Chronic) Pulmonary hypertension (Chronic) Morbid obesity with BMI of 40.0-44.9, adult (Chronic) Sleep-disordered breathing (Chronic) CAD (coronary artery disease) (Chronic) 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 Electronically Signed: Mele Khalil DO at 23:08 EDT Tel [phone], Service support , cardiology- Dr Clarke Nephrology- Dr Hughes laser systems engineer- Dr Ferreira Operations: None Procedures: 2-D Echocardiogram, Central line placement Summary of Care Provided: The patient is a 72 year old F with an extensive past medical history as listed. She was admitted in [facility] on 05/15/2018 with complaint of shortness of breath and upper respiratory infection symptoms as well as bilateral eye irritation. She also had a cough which was productive as well as a subjective fever. She had been on ciprofloxacin eyedrops on account of pinkeye and had been recently taken off hydrochlorothiazide due to elevated creatinine. In the ED, patient desaturated so she was admitted to the regular nursing floor for further management. Patient initially remained stable but rapid response was subsequently called on day after admission after she was trying to have a bowel movement and was found to be minimally responsive on the toilet seat. She was found to be bradycardic and hypotensive with heart rate of 36 and blood pressure of 90/45. Her beta blockers and other medications were held and she was given a bolus of 1 L of normal saline. EKG done showed A. fib with heart rate of 41 bpm. Creatinine trended up from 1.64-2.23. At that point she was diagnosed with syncope likely vasovagal and new onset A. fib with bradycardia. All her blood pressure medications were held and she was transferred up to the ICU. Cardiology was consulted. Turned out that she had been on carvedilol at 37.5 mg twice a day and also on Cardizem at 240 mg daily as well as hydrochlorothiazide and amlodipine 10 mg daily. She had also been having similar syncopal episodes at home. In the ICU, she was started on IV dopamine and had a central line placed. She required a transvenous pacemaker on account of persistent bradycardia. Patient still remained hypotensive and so Lopressor had to be also started. Creatinine was noted to be trending further upwards. Hemodynamic status gradually improved and Levophed was weaned off and eventually dopamine was also weaned off. Patient's course was complicated by worsening AK I on CKD and creatinine trended up further. Nephrology was consulted and they thought it was likely due to ATN from hypotension. Conservative management was advocated and eventually creatinine started trending down gradually. Patient failed numerous spontaneous breathing trials. She was also noted to be getting progressively edematous and was started on IV Lasix. Kidney ultrasound done showed possible medical renal disease. 2D echo done showed EF of 60% with stage II diastolic dysfunction and normal left ventricular systolic function. Patient was on breathing treatments and IV Solu-Medrol and sputum culture Klebsiella pneumonia and MSSA. She was therefore started on IV Unasyn while seen in the ICU. Patient subsequently had polyuria and output increased to as much as 5.1 L of urine over 24 hours and she can coordinate a negative balance. Lasix was therefore discontinued on account of hyponatremia resolved. Patient was subsequently successfully extubated to oxygen by nasal cannula. Hypotension resolved and blood pressure subsequently became poorly controlled. She was therefore started on amlodipine 10 mg daily, carvedilol 3.125 mg twice daily and hydralazine 100 mg 3 times daily as well as hydrochlorothiazide 25 mg daily. Patient was transferred to the regular nursing floor from ICU. Physical therapy evaluated patient in skilled her for additional inpatient therapy. Patient and family however refused and insisted on having discharged home with home health care. Patient remained stable and was discharged home on 06/12/2018. Creatinine trended down to 1.39 on day of discharge. Walking pulse ox showed oxygen saturation of 90% with ambulation on room air and 94% at rest on room air. She therefore did not qualify for oxygen. She was discharged home on 06/12/2018 and is to follow-up with her primary care doctor, cardiology, nephrology and pulmonology. Patient seen and examined prior to discharge. Family was by her bedside. She had no complaints and felt well. Review of systems otherwise negative. Labs and vitals reviewed. Home medication reviewed and reconciled. o/e: Vital Signs Height 5 ft 3 in Weight: 251 lb 15.814 oz Weight in Pounds 252.0 lbs Pulse Ox 90 Temperature 98.2 F Pulse Rate 82 Respiratory Rate 20 Blood Pressure [BP] 154/49 Blood Pressure 158/50 Blood Pressure Position [BP] Semi-Fowlers Blood Pressure Position Sitting General: Alert, Oriented x3, Cooperative, HEENT: Atraumatic, PERRLA, EOMI, Normocephalic Oral: Dry Mucosa Neck: Supple, No JVD, Negative Carotid Bruits Lungs: - - decreased breath sounds bibasally, no wheezes or crackles Cardiovascular: Regular rate, Regular Rhythm, Normal S1, Normal S2, No murmurs Abdomen: Bowel Sounds Present, Soft, Non Tender, Non-Distended, No Hepato-splenomegaly Extremities: No clubbing, No cyanosis, No edema, Capillary Refill Less than 3 Seconds Skin: No rashes, No breakdown Musculoskeletal: No Tenderness to Palpation of Joints or Extremities Lymphatic: No Cervical, Supraclavicular, or Inguinal Adenopathy Neurological: Cranial nerves II-XII grossly intact, Neuro grossly intact, Motor Exam 5/5 strength throughout Psych/Mental Status: Normal Affect, Appropriate Plan as detailed above. She was also referred to an pattern layout worker. She was also given a script for PO prednisone to taper as follows: 40mg x 3 days, 30mg x 3 days, 20mg x 3 days, 10mg x 3 days. [] - Physical Exam Vital Signs Temp Pulse Resp BP Pulse Ox 98.2 F 85 16 158/50 H 90 06/12/18 09:09 06/12/18 09:09 06/12/18 09:09 06/12/18 09:09 06/12/18 10:30 Oxygen Flow Rate (L/min) 1 Oxygen Delivery Method Room Air Weight: 251 lb 15.814 oz Body Mass Index (BMI) 43.9 Finger Stick Blood Glucose 155 Intake and Output for Last 24 Hours 06/10/18 06/11/18 06/12/18 23:59 23:59 23:59 Intake Total 1877 / 1877 1823 / 1823 60 / 60 Output Total 5160 / 5160 1725 / 1725 400 / 400 Balance -3283 / -3283 98 / 98 -340 / -340 Laboratory Tests Past 24 Hrs 06/08/18 06/11/18 06/12/18 04:50 05:05 04:35 WBC 12.7 H RBC 3.59 L Hgb 10.0 L Hct 31.4 L MCV 87.5 MCH 27.9 MCHC 31.8 L RDW 16.3 H RDW Differential 50.3 H Plt Count 343 MPV 9.0 Neut % (Auto) Not Reportable Absolute Neuts (auto) 10.8 H Absolute Lymphs (auto) 1.14 Total Counted 100 Neutrophils % (Manual) 83 H Band Neutrophils % 2 Lymphocytes % (Manual) 9 L Monocytes % (Manual) 5 Eosinophils % (Manual) 1 Diff Path Review Reviewed Reviewed May foll Platelet Estimate ADEQUATE Plt Morphology Comment LARGE Polychromasia 1+ Hypochromasia 1+ Anisocytosis 1+ Microcytosis 1+ Sodium Potassium Chloride Carbon Dioxide Anion Gap BUN Creatinine Estim Creat Clear Calc Est GFR (MDRD) Af Amer Est GFR (MDRD) Non-Af BUN/Creatinine Ratio Glucose Calcium 06/12/18 04:35 WBC RBC Hgb Hct MCV MCH MCHC RDW RDW Differential Plt Count MPV Neut % (Auto) Absolute Neuts (auto) Absolute Lymphs (auto) Total Counted Neutrophils % (Manual) Band Neutrophils % Lymphocytes % (Manual) Monocytes % (Manual) Eosinophils % (Manual) Diff Path Review Platelet Estimate Plt Morphology Comment Polychromasia Hypochromasia Anisocytosis Microcytosis Sodium 144 Potassium 3.6 Chloride 104 Carbon Dioxide 32.0 Anion Gap 8 BUN 58 H Creatinine 1.39 H Estim Creat Clear Calc 30.71 Est GFR (MDRD) Af Amer 48 L Est GFR (MDRD) Non-Af 40 L BUN/Creatinine Ratio 41.7 H Glucose 76 Calcium 8.2 L POC Glucose 06/12/18 06/11/18 06/11/18 06:51 21:22 16:07 POC Glucose 74 186 H 164 H 06/11/18 10:56 POC Glucose 131 H Discharge Diet: Low fat/ Low Cholesterol Discharge Activity: Return to Normal Activity Weight Bearing Status: Weight bearing as tolerated Call your doctor if you observe: Fever of 101 or Higher, Shortness of breath, Swelling in the ankles, Chest pain Home Medications: Medications to take at Discharge Amitriptyline HCl [Elavil] 100 mg PO QHS 04/09/13 Metformin(XR) [Glucophage Xr] 500 mg PO DAILY 12/25/16 Omeprazole 40 mg PO DAILY 12/25/16 Pioglitazone [Actos] 30 mg PO DAILY 12/25/16 Tiotropium [place] [Spiriva] 1 puff INHALATION DAILY 12/25/16 Aspirin E.C. [Ecotrin] 81 mg PO DAILY 10/25/17 Atorvastatin Calcium 80 mg PO DAILY 10/25/17 Gabapentin [Neurontin] 300 mg PO .COMPLEX 10/25/17 Losartan Potassium 100 mg PO DAILY 10/25/17 Amlodipine Besylate 10 mg PO DAILY 06/01/18 Carvedilol [Coreg (Beta Nya)] 3.125 mg PO BID #60 tablet 06/12/18 Hydrochlorothiazide [Hctz] 25 mg PO DAILY #30 tablet 06/12/18 Prednisone 10 mg PO UD #30 tab.ds.pk 06/12/18 hydrALAZINE [Apresoline] 100 mg PO TID #90 tablet 06/12/18 Following Prescrptions Were Given to Patient: Hydrochlorothiazide [Hctz] 25 mg PO DAILY #30 tablet Prednisone 10 mg PO UD #30 tab.ds.pk Carvedilol [Coreg (Beta Nya)] 3.125 mg PO BID #60 tablet hydrALAZINE [Apresoline] 100 mg PO TID #90 tablet Primary Care Physician: Levi Laird MD [Primary Care Provider] - Please follow up with your Primary Care Physician in: one week Please Follow Up With: Lucien Ferreira MD When: 1-2 weeks Please Follow Up With: Dewayne Hughes MD When: 1-2 weeks Please Follow Up With: Alex Clarke MD When: 1 week Please Follow Up With: Dev Vasquez MD When: 1-2 weeks for eye discharge Patient Instructions: Inside the ICU (Intensive Care Unit), Understanding Ventilators, Discharge Instructions for Acute Kidney Injury, Discharge Instructions: COPD Disposition: Home with Home Health Minutes spent on discharge:: 50 Patient Condition:: Stable Medical Necessity - Tobacco Use Smoking Status: Former smoker Tobacco Use: Cigarettes Meaningful Use Info Meaningful Use Diagnoses (Choose all that apply): None applicable Code Visit Inpatient E&M: 60951 Disch Hosp
[2018-06-12 12:18] LABS: Pathologist Review Reviewed
--- NOTE | 2018-06-12 12:40 | PCM.PN.REN ---
Patient Problems: Active and Suspected Problems Respiratory failure with hypoxia (Acute) Acute exacerbation of chronic obstructive pulmonary disease (COPD) (Acute) Bronchospasm (Acute) Viral conjunctivitis (Acute) Allergic conjunctivitis (Acute) Chemosis of conjunctiva (Acute) Bradycardia (Acute) Hypotension (Acute) Decreased responsiveness (Acute) Acute hypoxic respiratory failure (Acute) Subjective: Pt is going to be discharged today. No nausea No vomiting. No SOB - Physical Exam General: Oriented x3 HEENT: Atraumatic Oral: Moist Mucosa Neck: Supple, No JVD Lungs: Clear to auscultation Cardiovascular: Regular rate, Regular Rhythm, Normal S1, Normal S2 Abdomen: Bowel Sounds Present, Soft, Non Tender Extremities: No clubbing, No cyanosis, Edema - +1 edema of LE Skin: No rashes Musculoskeletal: No Tenderness to Palpation of Joints or Extremities Lymphatic: No Cervical, Supraclavicular, or Inguinal Adenopathy Neurological: Cranial nerves II-XII grossly intact, Neuro grossly intact Psych/Mental Status: Normal Affect Vital Signs Temp Pulse Resp BP Pulse Ox 98.2 F 82 20 H 158/50 H 90 06/12/18 09:09 06/12/18 10:36 06/12/18 10:36 06/12/18 09:09 06/12/18 10:30 Oxygen Flow Rate (L/min) 1 Oxygen Delivery Method Room Air Weight: 114.3 kg Body Mass Index (BMI) 43.9 Finger Stick Blood Glucose 155 Intake and Output for Last 24 Hours 06/10/18 06/11/18 06/12/18 23:59 23:59 23:59 Intake Total 1877 / 1877 1823 / 1823 60 / 60 Output Total 5160 / 5160 1725 / 1725 400 / 400 Balance -3283 / -3283 98 / -340 / -340 Laboratory Tests Past 24 Hrs 06/12/18 06/12/18 04:35 04:35 WBC 12.7 H RBC 3.59 L Hgb 10.0 L Hct 31.4 L MCV 87.5 MCH 27.9 MCHC 31.8 L RDW 16.3 H RDW Differential 50.3 H Plt Count 343 MPV 9.0 Neut % (Auto) Not Reportable Absolute Neuts (auto) 10.8 H Absolute Lymphs (auto) 1.14 Total Counted 100 Neutrophils % (Manual) 83 H Band Neutrophils % 2 Lymphocytes % (Manual) 9 L Monocytes % (Manual) 5 Eosinophils % (Manual) 1 Diff Path Review Reviewed Platelet Estimate ADEQUATE Plt Morphology Comment LARGE Polychromasia 1+ Hypochromasia 1+ Anisocytosis 1+ Microcytosis 1+ Sodium 144 Potassium 3.6 Chloride 104 Carbon Dioxide 32.0 Anion Gap 8 BUN 58 H Creatinine 1.39 H Estim Creat Clear Calc 30.71 Est GFR (MDRD) Af Amer 48 L Est GFR (MDRD) Non-Af 40 L BUN/Creatinine Ratio 41.7 H Glucose 76 Calcium 8.2 L POC Glucose 06/12/18 06/11/18 06/11/18 06:51 21:22 16:07 POC Glucose 74 186 H 164 H Medical Necessity - Tobacco Use Smoking Status: Former smoker Tobacco Use: Cigarettes Assessment/Plan All Active Problems Respiratory failure with hypoxia (Acute) Acute exacerbation of chronic obstructive pulmonary disease (COPD) (Acute) Bronchospasm (Acute) Viral conjunctivitis (Acute) Allergic conjunctivitis (Acute) Chemosis of conjunctiva (Acute) Bradycardia (Acute) Hypotension (Acute) Decreased responsiveness (Acute) Acute hypoxic respiratory failure (Acute) Acute kidney injury (Acute) Prerenal azotemia (Resolved) 1- KURT on CKD stage 3. Baseline Cr 1.1-1.3 mg/dl KURT is due to ischemic ATN related to sepsis. I doubt another KURT etiology for now Renal function improved. Cr is back to baseline. Cr increased fro 1.1->1.3 mg/dL with adding losartan which is appropriate 2- Acute RF from pneumonia/COPD exacerbation. Off vent. On NC now COPD and Abx as per the primary service 3- cardiogenic shock from medications induced bradycardia. Resolved. Off pressors. 4-hypertension. Blood pressure is better. Pt can be discharged with current BP meds 5- Hypernatremia: resolved. Na is 144 encouraged PO H20 intake Renal team will continue to follow Please call if any question at [phone] Ok to d/c patient from nephro stand point Dewayne Hughes MD
--- NOTE | 2018-06-12 13:00 | CASEMGMT ---
Pt completed LW/POA forms with family, SW copied them and placed in chart, originals and copies given to family. RENAY Ramirez
--- NOTE | 2018-06-12 18:21 | PN.CARD_ITS ---
Subjectve: The patient was evaluated earlier this day with her family members present. At that time she denied ongoing issues of chest discomfort or worsening shortness of breath or dyspnea. She had been up and ambulating to the restroom but had not yet been out in the hallway. She was pending further evaluation by OT/PT. Objective: Vital Signs Temp Pulse Resp BP Pulse Ox 98.2 F 82 20 H 158/50 H 90 06/12/18 09:09 06/12/18 10:36 06/12/18 10:36 06/12/18 09:09 06/12/18 10:30 Oxygen Flow Rate (L/min) 1 Oxygen Delivery Method Room Air Weight: 251 lb 15.814 oz Body Mass Index (BMI) 43.9 Finger Stick Blood Glucose 155 Intake and Output for Last 24 Hours 06/10/18 06/11/18 06/12/18 23:59 23:59 23:59 Intake Total 1877 / 1877 1823 / 1823 300 / 300 Output Total 5160 / 5160 1725 / 1725 400 / 400 Balance -3283 / -3283 98 / 98 -100 / -100 General: Awake, Alert, Oriented x 3, Cooperative, No Acute Distress HEENT: Atraumatic, Normocephalic, PERRL, EOMI, Sclera Non Icteric Oral: Moist Mucosa Neck: Supple, Good ROM Lungs: Clear to auscultation Cardiovascular: Regular Rhythm, Normal S1, Normal S2 Abdomen: Bowel Sounds Present, Soft Extremities: Trace RLE Edema, Trace LLE Edema Psych/Mental Status: Appropriate 06/12/18 04:35: WBC 12.7 H, RBC 3.59 L, Hgb 10.0 L, Hct 31.4 L, MCV 87.5, MCH 27.9, MCHC 31.8 L, RDW 16.3 H, RDW Differential 50.3 H, Plt Count 343, MPV 9.0, Neut % (Auto) Not Reportable, Absolute Neuts (auto) 10.8 H, Total Counted 100, Neutrophils % (Manual) 83 H, Band Neutrophils % 2, Lymphocytes % (Manual) 9 L, Monocytes % (Manual) 5, Eosinophils % (Manual) 1 06/12/18 04:35: Sodium 144, Potassium 3.6, Chloride 104, Carbon Dioxide 32.0, Anion Gap 8, BUN 58 H, Creatinine 1.39 H, Est GFR (MDRD) Af Amer 48 L, Est GFR (MDRD) Non-Af 40 L, BUN/Creatinine Ratio 41.7 H, Glucose 76, Calcium 8.2 L Rhythm: Sinus rhythm Medical Necessity - Tobacco Use Smoking Status: Former smoker Tobacco Use: Cigarettes Assessment/Plan 1. Bradycardia/hypotension The patient remains in sinus rhythm. The patient has been placed back on low-dose carvedilol therapy. She appears to be tolerating it well thus far. 2. CAD status post CABG She has undergone evaluation with formal transthoracic echocardiogram during sinus rhythm. Her overall left ventricular size, wall motion, and systolic function was considered normal with an LVEF of 60%. A [facility] CABG report was placed on her chart. It appears she received a NATHAN to the LAD, and SVG to the diagonal branch, and SVG to the LCx system, and an SVG to the RCA. 3. Hyperlipidemia She will continue lipid-lowering therapy as deemed appropriate. 4. Hypertension Her medications have been adjusted. She is now on low-dose beta-cha, a hydrochlorothiazide diuretic, her loop diuretics have been discontinued, and ARB, calcium channel antagonist, and a vasodilator-hydralazine. Her blood pressure does appear to be somewhat improved. 5. Diabetes mellitus She will continue under the care of internal medicine for this. 6. COPD She apparently has long-standing COPD. She will continue evaluation care by internal medicine and pulmonology/critical care medicine. 6. Renal insufficiency Her creatinine level has improved. BMP will need to be followed for her potassium level and renal function. She is being followed by nephrology. Her assistance with her underlying renal status and her blood pressure is most appreciated. Overall the patient appears to be clinically improved. She is going to continue medical therapy. She is going to have future outpatient cardiovascular follow- up to monitor her cardiac history. Comment: The patient's case was discussed with the patient and her family members present. This note was generated with [employer] software. It may contain incorrect words, spelling, and punctuation that were not noted in checking the note before signing.
--- NOTE | 2018-06-13 14:38 | CASEMGMT ---
RANDY MONTALVO Discharge Follow-Up Phone Call. Karina: 13 Strata: 4 Discharge Date: 06/12/18 Adm Dx: COPD Exac Call to pt to inquire about how she has been doing since being discharged from the hospital. Pt spoke to this RANDY MONTALVO briefly and stated she is doing pretty good. Lost phone connection and call placed back to pt. Pt's daughter answered and she answered remainder of questions. Daughter states pt is doing really good and states that her breathing is better. She states her mom was having some questions about her medications but that she has explained to her why she has been started back on some of them. Dtr states pt started getting a rash today and that nurse Felicitas from [facility] was out to see pt today, assessed the rash, and called pt's PCP about it. Dtr states she has no further questions about the medications. Dtr did state she was unsure of when pt's follow-up appts are. Dtr informed that printout of appts should have been sent home with pt. Dtr looked through the discharge packet and was able to locate the print out. Reviewed the appts with her and what appts still need to be made. She voiced understanding. She denies having any other questions or concerns. RANDY MONTALVO thanked pt for choosing [facility]. Amanuel KATZ RN, CM
== END 2018-06-12 13:00 | disposition home health service (06) | DRG 207 ==
LOC: ED 16:13 → MS3 16:49 → ICU 06-03 07:23 → MS3 06-04 10:49 → PCU 06-04 10:49 → ICU 06-11 09:54 → PCU 06-12 10:46
PROVIDERS: Internal Medicine; Internal Medicine Critical Care Medicine; Nurse Practitioner Family; Admitting Provider Family Medicine; Emergency Provider Emergency Medicine; Family Provider Family Medicine; PCP Family Medicine; Referring Provider Family Medicine; Visit Provider Student in an Organized Health Care Education/Training Program
DX: J15.0 Pneumonia due to Klebsiella pneumoniae (principal); J96.01 Acute respiratory failure with hypoxia; R57.0 Cardiogenic shock; J44.1 Chronic obstructive pulmonary disease with (acute) exacerbation; Z68.41 Body mass index [BMI] 40.0-44.9, adult; N17.9 Acute kidney failure, unspecified; J15.211 Pneumonia due to Methicillin susceptible Staphylococcus aureus; I27.20 Pulmonary hypertension, unspecified; E66.01 Morbid (severe) obesity due to excess calories; E78.5 Hyperlipidemia, unspecified; I25.10 Atherosclerotic heart disease of native coronary artery without angina pectoris; I07.1 Rheumatic tricuspid insufficiency; I34.0 Nonrheumatic mitral (valve) insufficiency; H11.429 Conjunctival edema, unspecified eye; J98.01 Acute bronchospasm; I12.9 Hypertensive chronic kidney disease with stage 1 through stage 4 chronic kidney disease, or unspecified chronic kidney disease; E11.22 Type 2 diabetes mellitus with diabetic chronic kidney disease; N18.3 Chronic kidney disease, stage 3 (moderate); I16.0 Hypertensive urgency; F41.9 Anxiety disorder, unspecified; K21.9 Gastro-esophageal reflux disease without esophagitis; D64.9 Anemia, unspecified; R00.1 Bradycardia, unspecified; Z79.84 Long term (current) use of oral hypoglycemic drugs; Z95.1 Presence of aortocoronary bypass graft; Z87.891 Personal history of nicotine dependence; B30.9 Viral conjunctivitis, unspecified; I95.9 Hypotension, unspecified
CPT/HCPCS: 31500; 31720; 33210; 36415; 36600; 71045; 71046; 76770; 80048; 80053; 81001; 82550; 82570; 82728; 82803; 82962; 83540; 83550; 83735; 84100; 84300; 84478; 84484; 85025; 85027; 85730; 87040; 87070; 87077; 87086; 87088; 87186; 87205; 87633; 87641; 92526; 92610; 93005; 93306; 94002; 94003; 94640; 94660; 94799; 95831; 97110; 97116; 97162; 97167; 97530; 97802; 99251; 99285; J2185; J7030; J7040; J7050; A4216; C1894; G0463; J0295; J1940

== ENCOUNTER → 2018-06-19 11:39 | Outpatient (CLI) | payer MEDICARE, SELFPAY ==
[2018-06-19 10:39] VITALS: BMI 42.0
[2018-06-19 12:46] LABS: Absolute Lymphocyte Count 0.93 X10^3/ul (0.83-4.51); Absolute Neutrophil Count 8.2 X10^3/uL (2.0-7.7); Basophil# 0.03 X10^3/uL; Basophil% 0.3 % (0-1); Eosinophil# 0.92 X10^3/uL; Eosinophils% 8.7 % (0-5); Hematocrit 31.4 % (37-47); Hemoglobin 9.8 g/dl (12.0-15.0); Lymphocyte # 0.93 X10^3/ul (4.0); Lymphocyte % 8.8 % (19-41); Mean Corp Hgb Conc 31.2 g/gl (32-36); Mean Corpuscular Hgb 27.8 pg (27.0-32.0); Mean Corpuscular Volume 89.2 fL (81-99); Mean Platelet Vol. 9.8 fl (6.2-12.0); Monocyte# 0.45 X10^3/uL; Monocyte% 4.2 % (0-10); Neutrophil % 77.2 % (47-70); Platelet Count 333 K/mm3 (150-450); RBC Distribution Width CV 17.2 % (11.6-14.6); RBC Distribution Width SD 55.5 fl (35.1-43.9); Red Blood Count 3.52 M/mm3 (4.2-5.4); White Blood Count 10.6 K/mm3 (4.4-11.0)
[2018-06-19 12:47] LABS: POSITIVE COUNT NO; POSITIVE DIFFERENTIAL NO; POSITIVE MORPHOLOGY NO
[2018-06-19 13:12] LABS: Anion Gap 4 (5-15); BUN 26 mg/dL (7-18); BUN/Creat Ratio 20.6 RATIO (10-20); Calcium,Total 8.5 mg/dL (8.5-10.1); Chloride 104 mmol/L (98-107); Creatinine, Serum 1.26 mg/dL (0.55-1.02); EST Glomerular Filtration Rate 44 mL/min (>60); Est Glom Filt Rate - Afr Amer 54 mL/min (>60); Glucose 196 mg/dL (74-106); Potassium 4.1 mmol/L (3.5-5.1); Sodium Level 139 mmol/L (136-145)
== END ==
PROVIDERS: Family Provider Family Medicine; PCP Family Medicine; Referring Provider Nurse Practitioner Family; Visit Provider Nurse Practitioner Family
DX: D64.9 Anemia, unspecified (principal); I25.10 Atherosclerotic heart disease of native coronary artery without angina pectoris; I10 Essential (primary) hypertension; J96.91 Respiratory failure, unspecified with hypoxia
CPT/HCPCS: 36415; 80048; 85025

== ENCOUNTER 2018-07-01 13:33 | Outpatient (RCR) | payer MEDICARE, SELFPAY ==
[2018-06-28 09:31] VITALS: BMI 39.4
[2018-07-01 14:03] LABS: Hematocrit 28.8 % (37-47); Hemoglobin 8.7 g/dl (12.0-15.0); Mean Corp Hgb Conc 30.2 g/gl (32-36); Mean Corpuscular Hgb 27.4 pg (27.0-32.0); Mean Corpuscular Volume 90.6 fL (81-99); Mean Platelet Vol. 10.4 fl (6.2-12.0); Platelet Count 326 K/mm3 (150-450); RBC Distribution Width CV 16.2 % (11.6-14.6); RBC Distribution Width SD 52.4 fl (35.1-43.9); Red Blood Count 3.18 M/mm3 (4.2-5.4); White Blood Count 6.4 K/mm3 (4.4-11.0)
[2018-07-01 14:16] LABS: Scan Indicated on CBC? Y/N NO
[2018-07-01 14:26] LABS: Anion Gap 8 (5-15); BUN 41 mg/dL (7-18); BUN/Creat Ratio 15.8 RATIO (10-20); Calcium,Total 7.9 mg/dL (8.5-10.1); Chloride 100 mmol/L (98-107); Creatinine, Serum 2.59 mg/dL (0.55-1.02); EST Glomerular Filtration Rate 19 mL/min (>60); Est Glom Filt Rate - Afr Amer 23 mL/min (>60); Glucose 152 mg/dL (74-106); Iron 18 ug/dL (50-170); Iron Binding Capacity,Total 265 ug/dL (250-450); PERCENT IRON SATURATION 6.8 % (15.0-55.0); Potassium 3.9 mmol/L (3.5-5.1); Sodium Level 137 mmol/L (136-145)
[2018-07-01 14:30] LABS: Hemoglobin A1c 7.2 % (4.2-6.3)
== END 2018-07-02 23:59 ==
LOC: HHLAB 13:33
PROVIDERS: Family Provider Family Medicine; PCP Family Medicine; Referring Provider Family Medicine; Visit Provider Family Medicine
DX: J44.1 Chronic obstructive pulmonary disease with (acute) exacerbation (principal); J44.0 Chronic obstructive pulmonary disease with (acute) lower respiratory infection; J18.9 Pneumonia, unspecified organism
CPT/HCPCS: 80048; 83036; 83540; 83550; 85027

== ENCOUNTER 2018-07-02 06:11 | Inpatient (IN) | payer MEDICARE, SELFPAY ==
[2018-06-28 09:31] VITALS: BMI 39.4
[2018-07-02] VITALS (20 sets, daily range): BP systolic 137–191; BP diastolic 47–95; PULSE 82–98; RESP 16–24; TEMP 36.6–36.9; O2SAT 77–95; BMI 48.4; BMI 45.5
--- NOTE | 2018-07-02 06:34 | EKG12_ITS ---
Test Reason : Blood Pressure : / mmHG Vent. Rate : 098 BPM Atrial Rate : 098 BPM P-R Int : 188 ms QRS Dur : 094 ms QT Int : 358 ms P-R-T Axes : 080 040 064 degrees QTc Int : 457 ms Normal sinus rhythm with sinus arrhythmia Normal ECG Confirmed by ELLEN DOVE, MARKUS ([id number]), assignment editor DENVER KRAUSE ([id number]) on 07/04/2018 9:26:33 AM Referred By: RUPA Confirmed By:MARKUS HUGHES MD
--- NOTE | 2018-07-02 06:34 | RAD_ITS ---
HISTORY: patient recently discharged after being admitted for pneumonia. Persistent breathing problems EXAM:XR Chest 1 View portable COMPARISON: 06/02/2018 FINDINGS: EKG leads in place. No significant change. Borderline cardiomegaly. Chronic mild elevation of the right hemidiaphragm with secondary hypoventilation of the right lung base. No acute infiltrates seen. No vascular congestion or pleural effusion. Atherosclerotic thoracic aorta. Previous median sternotomy. No pneumothorax. RAD/Chest 1 View (Portable) IMPRESSION: 1. No acute cardiopulmonary disease. No significant change. 2. Chronic elevation of the right hemidiaphragm. 3. Borderline cardiomegaly. Previous CABG. at 0749 Reported and signed by: Alphonso Gleason MD Electronically Signed: Alphonso Gleason, at 7:48 EDT Tel , Service support ,
--- NOTE | 2018-07-02 06:50 | ED.VISSUMM ---
- ER Visit Summary Date of Service: 07/02/18 Chief Complaint: Unable to urinate History of Present Illness: The patient is a 72 F who has not urinated since 1:30 PM yesterday, about 17 to 18 hours ago. She states that she feels like she needs to but is unable to go. Family is also concerned because she developed increased work of breathing and wheezing this morning. The patient subjectively does not feel short of breath. She denies any pain. She complains of a mild nonproductive cough. No fevers nausea vomiting. She recently had a critical illness and was hospitalized for pneumonia intubated had a temporary pacemaker and acute kidney failure. Physical Examination: Afebrile pulse ox 77% on room air, respiratory rate 24 Patient is in moderate distress with increased work of breathing she has diminished air exchange diffusely as well as diffuse wheezing. Moist mucous membranes Heart regular rate and rhythm Abdomen soft Patient has symmetric pitting lower extremity edema Test Results: EKG shows normal sinus rhythm at a rate of 98. Chest x-ray on my review shows no acute process. Labs are notable for hemoglobin of 8.7 hematocrit 27.6. BUN is 45 with a creatinine of 2.64. Urinalysis shows yeast. Troponin is negative. ABG shows pH of 7.34, PCO2 48, PO2 70. Emergency Department Course and Treatment: Was treated with albuterol and Atrovent aerosols as well as IV Solu-Medrol. On patient's arrival here she was placed on nasal cannula with improvement of oxygen saturations. A Kimble catheter was placed and she did have 500 cc of urine out. Patient was discussed with the hospitalist and will be admitted. Treatment Plan: [] Disposition: Admit Impression: Acute kidney injury Acute hypoxic respiratory failure COPD Urinary retention This note was generated with [employer] dictation software. It may contain incorrect words, spelling, and punctuation that were not noted in review of the chart prior to signing ED Disposition - Plan for ED Patient: Referrals: Levi Laird MD [Primary Care Provider] -
[2018-07-02 06:55] LABS: Mucous, Urine 0 SEEN /hpf (<or=2+); Red Blood Cells-Urine 0 SEEN /hpf (0-5)
[2018-07-02 06:59] LABS: Color, Urine Yellow (Yellow); Glucose, Dipstick Normal (Normal); Ketone-Dipstick Negative (Negative); Leukocyte Esterase-Dipstick 25 /ul (Negative); Nitrite-Dipstick Negative (Negative); Occult Blood-Urine Negative /ul (Negative); Protein-Dipstick 15 mg/dl (Negative); Urine Clarity Sl. Cloudy (Clear); Urine Urobilinogen Normal (Normal)
[2018-07-02 07:00] LABS: Absolute Neutrophil Count 5.4 X10^3/uL (2.0-7.7); Basophil# 0.02 X10^3/uL; Basophil% 0.3 % (0-1); Eosinophil# 0.44 X10^3/uL; Eosinophils% 5.9 % (0-5); Hematocrit 27.6 % (37-47); Hemoglobin 8.7 g/dl (12.0-15.0); Lymphocyte % 10.7 % (19-41); Mean Corp Hgb Conc 31.5 g/gl (32-36); Mean Corpuscular Hgb 27.7 pg (27.0-32.0); Mean Corpuscular Volume 87.9 fL (81-99); Mean Platelet Vol. 9.8 fl (6.2-12.0); Monocyte# 0.66 X10^3/uL; Monocyte% 8.9 % (0-10); Neutrophil # 5.42 X10^3/uL (2.7-7.7); Neutrophil % 72.7 % (47-70); Platelet Count 350 K/mm3 (150-450); RBC Distribution Width CV 16.2 % (11.6-14.6); RBC Distribution Width SD 52.3 fl (35.1-43.9); Red Blood Count 3.14 M/mm3 (4.2-5.4); White Blood Count 7.5 K/mm3 (4.4-11.0)
[2018-07-02 07:00] LABS: Urine Bilirubin Dipstick 1 mg/dL (Negative)
[2018-07-02 07:01] LABS: POSITIVE COUNT NO; POSITIVE DIFFERENTIAL NO; POSITIVE MORPHOLOGY NO
[2018-07-02 07:04] LABS: Bacteria RARE /hpf (None Seen); Squamous Epithelial Cells - UA 0-5 SEEN /hpf (5-10); White Blood Cells 0-5 SEEN /hpf (0-5); Yeast-Urine 2+ /hpf (None Seen)
[2018-07-02] MEDS: Ipratropium/Albuterol Sulfate 3 ML AMPUL.NEB INHALATION ×5 (07:07→22:47)
[2018-07-02] MEDS: Albuterol 2.5 MG/3 ML VIAL.NEB. INHALATION (07:07)
[2018-07-02 07:14] LABS: Anion Gap 7 (5-15); BUN 45 mg/dL (7-18); Calcium,Total 7.9 mg/dL (8.5-10.1); Chloride 98 mmol/L (98-107); Creatinine, Serum 2.64 mg/dL (0.55-1.02); EST Glomerular Filtration Rate 19 mL/min (>60); Est Glom Filt Rate - Afr Amer 23 mL/min (>60); Estimated Creatinine Clearance 15.46 ml/min; Glucose 138 mg/dL (74-106); Sodium Level 133 mmol/L (136-145)
[2018-07-02 07:21] LABS: Allen Test POS; Base Excess 0 mmol/L (-2 to +2); Bicarbonate 25.9 mmol/L (22-26); Blood Gas Specimen Type ART; O2 Delivery Device Nasal Can; PO2 70 mmHG (75-100); SITE L Radial; SO2 92 % (95-99); Time Given 700; Total Carbon Dioxide 27 mmol/L; pCO2 48.4 mmHg (35-45); pH 7.34 (7.35-7.45)
--- NOTE | 2018-07-02 07:50 | NURSING ---
PCU ACUTE RESPIRATORY FAILURE, COPD EXAC KURT PAINTSIL
[2018-07-02] MEDS: MethylPREDNISolone 125 MG/2 ML Vial IV (07:56)
--- NOTE | 2018-07-02 09:47 | PCM.HP.STD ---
Problem List (1) Acute respiratory failure with hypoxia Status: Acute (2) HTN (hypertension) Status: Chronic Qualifiers: Hypertension type: essential hypertension Qualified Code(s): I10 - Essential (primary) hypertension (3) Sleep-disordered breathing Status: Chronic (4) H/O four vessel coronary artery bypass graft Status: Chronic (5) Dyslipidemia Status: Chronic (6) Acute kidney injury Status: Acute (7) Diabetes mellitus type 2 in obese Status: Chronic History of Present Illness Date of Admission: 07/02/18 Chief Complaint: Worsening shortness of breath, anuria - 1 day The patient is a 72 year old F with multiple comorbidities including COPD not on home oxygen, recently admitted with shortness of breath and upper respiratory symptoms and subsequently had syncope, soon after she was admitted. She was found to have severe bradycardia, she was minimally responsive, intubated, and managed in ICU, on IV dopamine and a transvenous pacemaker on account of persistent bradycardia.. She had KURT on CKD at the time, nephrology was consulted, and management was ATN from hypotension. Patient continued to improve and was eventually extubated. Patient was recommended to go for skilled therapy but she refused and was discharged with home health. The day of discharge, she did not qualify for oxygen. Patient was brought to the emergency department because he was found to be having increased work of breathing with wheezes and had not also been able to urinate for the past almost 18 hours. She denied any fever or chills. She was found to be saturating 77% on room air in the emergency department. Her vitals in the ED show temperature of 98.0F, blood pressure was 1158/69, heart rate was 98, this patient was 18, she was saturating 77%, increased to 95% on 3 L of oxygen. Blood work showed RBC count of 7.5, hemoglobin 8.7, platelet count of 350, ABG showed pH 7.34, PCO2 was 48.4, PO2 was 70, creatinine was 133, potassium 4.2, bicarbonate 28, chloride 98, BUN 45, creatinine 2.64, compared to previous creatinine of 1.26, UA was unremarkable. Chest x-ray showed no acute pulmonary disease. Past Medical History Past Medical History (Chronic Problems): Chronic Problems (Last Reviewed 06/28/18 @ 09:50 by Lia Meléndez NP-C) HTN (hypertension) (Chronic) Mitral insufficiency (Chronic) Tricuspid insufficiency (Chronic) Pulmonary hypertension (Chronic) Morbid obesity with BMI of 40.0-44.9, adult (Chronic) Sleep-disordered breathing (Chronic) CAD (coronary artery disease) (Chronic) NATHAN to the LAD, and SVG to the diagonal branch, and SVG to the LCx system, and an SVG to the RCA on 04/16/2013 at [facility] with Dr. Fields H/O four vessel coronary artery bypass graft (Chronic) Dyslipidemia (Chronic) COPD (chronic obstructive pulmonary disease) (Chronic) Diabetes mellitus type 2 in obese (Chronic) Medical History: Medical History (Last Reviewed 06/28/18 @ 09:50 by Lia Meléndez NP-C) Respiratory failure with hypoxia (Acute) J96.91 Acute exacerbation of chronic obstructive pulmonary disease (COPD) (Acute) J44.1 Bronchospasm (Acute) J98.01 Viral conjunctivitis (Acute) B30.9 Allergic conjunctivitis (Acute) H10.10 Chemosis of conjunctiva (Acute) H11.429 Bradycardia (Acute) R00.1 Hypotension (Acute) I95.9 HTN (hypertension) (Chronic) I10 Decreased responsiveness (Acute) Acute hypoxic respiratory failure (Acute) Mitral insufficiency (Chronic) I34.0 Tricuspid insufficiency (Chronic) I07.1 Pulmonary hypertension (Chronic) I27.20 Morbid obesity with BMI of 40.0-44.9, adult (Chronic) E66.01, Z68.41 Sleep-disordered breathing (Chronic) G47.30 CAD (coronary artery disease) (Chronic) I25.10 NATHAN to the LAD, and SVG to the diagonal branch, and SVG to the LCx system, and an SVG to the RCA on 04/16/2013 at [facility] with Dr. Fields Dyslipidemia (Chronic) E78.5 COPD (chronic obstructive pulmonary disease) (Chronic) J44.9 Acute kidney injury (Acute) N17.9 Diabetes mellitus type 2 in obese (Chronic) E11.69, E66.9 Allergies Penicillins Allergy (Verified 07/02/18 06:26) Hives adhesive tape Adverse Reaction (Verified 07/02/18 06:26) Other Home Medications: Ambulatory Orders Medication Instructions Recorded Amitriptyline HCl [Elavil] 100 mg PO QHS 04/09/13 Metformin(XR) [Glucophage Xr] 500 mg PO DAILY 12/25/16 Omeprazole 40 mg PO DAILY 12/25/16 Pioglitazone [Actos] 30 mg PO DAILY 12/25/16 Tiotropium Dyer [Spiriva] 1 puff INHALATION DAILY 12/25/16 Aspirin E.C. [Ecotrin] 81 mg PO DAILY 10/25/17 Atorvastatin Calcium 80 mg PO DAILY 10/25/17 Gabapentin [Neurontin] 300 mg PO .COMPLEX 10/25/17 Losartan Potassium 100 mg PO DAILY 10/25/17 Amlodipine Besylate 10 mg PO DAILY 06/01/18 Carvedilol [Coreg (Beta Nya)] 3.125 mg PO BID #60 tab 06/12/18 Hydrochlorothiazide [Hctz] 25 mg PO DAILY #30 tab 06/12/18 hydrALAZINE [Apresoline] 100 mg PO TID #90 tab 06/12/18 Surgical History: Surgical History (Last Reviewed 06/28/18 @ 09:50 by TREVOR Hou) H/O four vessel coronary artery bypass graft (Chronic) Z95.1 Surgical History: appendectomy, cholecystectomy, - Psychiatric History: Anxiety DIRECTOR SPEECH History: No pertinent DIRECTOR SPEECH history Lives: With Family Smoking Status: Former smoker Tobacco Use: Non-smoker Alcohol: None Drugs: None - *Family History Paternal Family History: Family History (Last Reviewed 06/28/18 @ 09:50 by TREVOR Hou) Mother Heart disease History Items: - - Denies known paternal cardiac history. Maternal Family History: Family History (Last Reviewed 06/28/18 @ 09:50 by TREVOR Hou) Mother Heart disease History Items: - - Denies known maternal cardiac history. Review of Systems Unable to obtain accurate/complete ROS d/t: Unable to fully complete on account of patient being slightly lethargic VTE Information - Inpt Only VTE Present on Admission: No VTE Pharm Prophylaxis ordered?: Yes Patient Problems: Active and Suspected Problems (Last Reviewed 06/28/18 @ 09:50 by Lia Meléndez NP-C) Acute respiratory failure with hypoxia (Acute) - Physical Exam General: Alert, Oriented x3, Cooperative, No apparent distress HEENT: Atraumatic, PERRLA, EOMI, Normocephalic Oral: Moist Mucosa Neck: Supple, No JVD, Negative Carotid Bruits Lungs: Diminished, Wheezes Cardiovascular: Regular rate, Regular Rhythm, Normal S1, Normal S2, No murmurs Abdomen: Bowel Sounds Present, Soft, Non Tender Extremities: No edema Skin: No rashes, No breakdown Musculoskeletal: No Tenderness to Palpation of Joints or Extremities Lymphatic: No Cervical, Supraclavicular, or Inguinal Adenopathy Neurological: Cranial nerves II-XII grossly intact, Neuro grossly intact Psych/Mental Status: Normal Affect, Appropriate Vital Signs Temp Pulse Resp BP Pulse Ox 98.0 F 90 20 H 150/57 H 94 07/02/18 08:50 07/02/18 08:50 07/02/18 08:50 07/02/18 08:50 07/02/18 08:50 Oxygen Flow Rate (L/min) 4 Oxygen Delivery Method Nasal Cannula Weight: 116.5 kg Body Mass Index (BMI) 45.5 Finger Stick Blood Glucose 155 Intake and Output for Last 24 Hours 06/30/18 07/01/18 07/02/18 23:59 23:59 23:59 Output Total 500 / 500 Balance -500 / -500 Laboratory Tests Past 24 Hrs 07/02/18 07/02/18 07/02/18 06:23 06:23 06:23 WBC 7.5 RBC 3.14 L Hgb 8.7 L Hct 27.6 L MCV 87.9 MCH 27.7 MCHC 31.5 L RDW 16.2 H RDW Differential 52.3 H Plt Count 350 MPV 9.8 Immature Gran % (Auto) 1.500 H Neut % (Auto) 72.7 H Lymph % (Auto) 10.7 L [place] % (Auto) 8.9 Eos % (Auto) 5.9 H Baso % (Auto) 0.3 Absolute Neuts (auto) 5.4 Absolute Lymphs (auto) 0.80 L Total Counted Not Reportable Specimen Type Sample Site pH Bicarbonate Actual POC Total CO2 Base Excess O2 Saturation ABG pCO2 ABG pO2 Abram Test O2 Delivery Device Liter Flow Blood Gas Notified Whom Blood Gas Notified Time Sodium 133 L Potassium 4.0 Chloride 98 Carbon Dioxide 28.0 Anion Gap 7 BUN 45 H Creatinine 2.64 H Estim Creat Clear Calc 15.46 Est GFR (MDRD) Af Amer 23 L Est GFR (MDRD) Non-Af 19 L BUN/Creatinine Ratio 17.0 Glucose 138 H Calcium 7.9 L Troponin I < 0.015 B-Natriuretic Peptide 161.0 H Urine Color Urine Clarity Urine pH Ur Specific [place] Urine Protein Urine Glucose (UA) Urine Ketones Urine Occult Blood Urine Nitrite Urine Bilirubin Urine Urobilinogen Ur Leukocyte Esterase Urine RBC Urine WBC Ur Squamous Epith Cells Urine Bacteria Urine Mucus Urine Yeast 07/02/18 07/02/18 06:49 07:13 WBC RBC Hgb Hct MCV MCH MCHC RDW RDW Differential Plt Count MPV Immature Gran % (Auto) Neut % (Auto) Lymph % (Auto) [place] % (Auto) Eos % (Auto) Baso % (Auto) Absolute Neuts (auto) Absolute Lymphs (auto) Total Counted Specimen Type ART Sample Site L Radial pH 7.34 L Bicarbonate Actual 25.9 POC Total CO2 27 Base Excess 0 O2 Saturation 92 L ABG pCO2 48.4 H ABG pO2 70 L Abram Test POS O2 Delivery Device Nasal Can Liter Flow 2.0 Blood Gas Notified Whom ED MD Blood Gas Notified Time 700 Sodium Potassium Chloride Carbon Dioxide Anion Gap BUN Creatinine Estim Creat Clear Calc Est GFR (MDRD) Af Amer Est GFR (MDRD) Non-Af BUN/Creatinine Ratio Glucose Calcium Troponin I B-Natriuretic Peptide Urine Color Yellow Urine Clarity Sl. Cloudy Urine pH 5.0 Ur Specific [place] 1.020 Urine Protein 15 H Urine Glucose (UA) Normal Urine Ketones Negative Urine Occult Blood Negative Urine Nitrite Negative Urine Bilirubin 1 H Urine Urobilinogen Normal Ur Leukocyte Esterase 25 H Urine RBC 0 SEEN Urine WBC 0-5 SEEN Ur Squamous Epith Cells 0-5 SEEN Urine Bacteria RARE Urine Mucus 0 SEEN Urine Yeast 2+ Assessment/Plan All Active Problems (Last Reviewed 06/28/18 @ 09:50 by Lia Meléndez, [employer] COMMUNICATIONS SUPERINTENDENT-C) Acute respiratory failure with hypoxia (Acute) Respiratory failure with hypoxia (Acute) Acute exacerbation of chronic obstructive pulmonary disease (COPD) (Acute) Bronchospasm (Acute) Viral conjunctivitis (Acute) Allergic conjunctivitis (Acute) Chemosis of conjunctiva (Acute) Bradycardia (Acute) Hypotension (Acute) Decreased responsiveness (Acute) Acute hypoxic respiratory failure (Acute) Acute kidney injury (Acute) Prerenal azotemia (Resolved) 72 year old F with multiple comorbidities including COPD not on home oxygen, recently discharged after a complicated hospital course in which patient was found to be minimally responsive soon after admission and managed in the ICU, intubated, bradycardic, on IV department, transvenous pacemaker. Patient subsequently was extubated, managed on the nursing flow and eventually discharged home with home health. She comes in with progressive shortness of breath and anuria. 1. Acute hypoxic respiratory failure secondary COPD exacerbation, admitting SPO2 was 77%, improved on nasal cannula oxygen 2. Acute COPD exacerbation, unclear etiology, no infiltrates on chest x-ray Continue on IV steroids, breathing treatments, incentive spirometer 3. KURT on CKD stage 3, unclear etiology, her baseline creatinine is around 1.2 Hold hydrochlorothiazide and losartan, Will get nephrology consult, ultrasound of kidney and bladder, continue on IV fluids Repeat blood work in a.m. 4. Hypertension, fairly controlled, will continue on home medications 5. Type II DM, blood sugars are controlled, will hold home metformin, continue with Accu-Cheks AC fifth 6. Morbid obesity, BMI 45.5 7. DVT prophylaxis with heparin subcu Code Visit Inpatient E&M: 46870 Init Hosp L3
--- NOTE | 2018-07-02 10:36 | CASEMGMT ---
Patient has a Healthcare POA and Healthcare LW on file. Josie GREENWOOD [employer]BER [employer]TER
[2018-07-02] MEDS: 0.9% Normal Saline 1,000 ML 100 ML IV (11:14)
[2018-07-02] MEDS: Pantoprazole Sodium 40 MG Tablet PO (11:16)
[2018-07-02] MEDS: Famotidine 20 MG Tablet PO ×2 (11:16→22:16)
[2018-07-02] MEDS: Carvedilol 3.125 MG TABLET PO ×2 (11:16→22:13)
[2018-07-02] MEDS: amLODIPine 10 MG Tablet PO (11:16)
[2018-07-02] MEDS: Aspirin E.C. 81 MG Tablet PO (11:16)
[2018-07-02] MEDS: Insulin Lispro 100 UNIT/ML INSULN.PEN SQ ×3 (11:30→22:17)
[2018-07-02 11:31] LABS: Bedside Glucose 161 mg/dL (70-110)
[2018-07-02] MEDS: hydrALAZINE 50 MG Tablet 100 MG PO ×2 (14:27→22:13)
--- NOTE | 2018-07-02 17:49 | US_ITS ---
STUDY: RENAL ULTRASOUND - COMPLETE REASON FOR EXAM: Female, 72 years old. Acute renal failure TECHNIQUE: Ultrasound evaluation of the kidneys was performed with real-time and static ruby-scale imaging. COMPARISON: None. FINDINGS: RIGHT KIDNEY: Normal location of the right kidney, which is normal in size. The right kidney measures 9.3 x 4.3 x 4.0 cm. There is a normal cortex of the right kidney. The renal cortex measures 1.4 cm. There is no right renal mass or cyst. There are no right renal calculi. There is no right hydronephrosis. LEFT KIDNEY: Normal location of the left kidney, which is normal in size. The left kidney measures 10.1 x 4.6 x 5.2 cm. There is a normal cortex of the left kidney. The renal cortex measures 1.3 cm. There is no left renal mass or cyst. There are no left renal calculi. There is no left hydronephrosis. BLADDER: The urinary bladder is decompressed with Kimble catheter. US/Kidney and Bladder IMPRESSION: Normal ultrasound of the kidneys. Electronically Signed: Mele Khalil DO at 19:59 EDT Tel [phone], Service support ,
[2018-07-02 18:21] LABS: Bedside Glucose 347 mg/dL (70-110)
[2018-07-02] MEDS: Atorvastatin Calcium 80 MG Tablet PO (22:13)
[2018-07-02] MEDS: Amitriptyline 100 MG Tablet PO (22:13)
[2018-07-02] MEDS: Gabapentin 600 MG Tablet PO (22:16)
[2018-07-02] MEDS: 0.9% NaCl Peripheral Flush Adult/Peds IV ×2 (22:24→22:30)
[2018-07-02] MEDS: Heparin Injection (Vial) 5,000 UNIT/ML VIAL 5000 UNIT SC (22:32)
[2018-07-02 22:46] LABS: Bedside Glucose 253 mg/dL (70-110)
[2018-07-03] VITALS (31 sets, daily range): BP systolic 137–171; BP diastolic 46–86; PULSE 85–97; RESP 10–24; TEMP 36.3–37.1; O2SAT 90–98
--- NOTE | 2018-07-03 01:04 | PCM.PN.BLA ---
Progress Note Nurse reported that patient has restless legs. Will do iron study. Nurse to offer patient tylenol
[2018-07-03] MEDS: Acetaminophen 325 MG Tablet 650 MG PO (01:09)
[2018-07-03] MEDS: Ipratropium/Albuterol Sulfate 3 ML AMPUL.NEB INHALATION ×6 (03:14→23:13)
[2018-07-03 06:08] LABS: ALB/GLOB Ratio 0.8 RATIO (0.9-2.4); AST(SGOT) 15 U/L (15-37); Alanine Aminotransfer ALT/SGPT 25 U/L (13-56); Albumin, Serum 2.8 g/dL (3.2-5.0); Alkaline Phosphatase 98 U/L (45-117); Anion Gap 10 (5-15); BUN 48 mg/dL (7-18); BUN/Creat Ratio 22.9 RATIO (10-20); Calcium,Total 7.9 mg/dL (8.5-10.1); Chloride 100 mmol/L (98-107); EST Glomerular Filtration Rate 25 mL/min (>60); Est Glom Filt Rate - Afr Amer 30 mL/min (>60); Estimated Creatinine Clearance 20.33 ml/min; Ferritin 74 ng/mL (8-252); Globulin 3.6 g/dL (2.2-4.2); Glucose 211 mg/dL (74-106); Iron 27 ug/dL (50-170); Iron Binding Capacity,Total 261 ug/dL (250-450); PERCENT IRON SATURATION 10.3 % (15.0-55.0); Potassium 4.1 mmol/L (3.5-5.1); Protein, Total 6.4 g/dL (6.4-8.2); Sodium Level 136 mmol/L (136-145)
[2018-07-03 06:11] LABS: Absolute Lymphocyte Count 0.47 X10^3/ul (0.83-4.51); Absolute Neutrophil Count 7.5 X10^3/uL (2.0-7.7); Basophil# 0.01 X10^3/uL; Basophil% 0.1 % (0-1); Eosinophil# 0.02 X10^3/uL; Eosinophils% 0.2 % (0-5); Hematocrit 26.1 % (37-47); Hemoglobin 8.5 g/dl (12.0-15.0); Lymphocyte # 0.47 X10^3/ul (4.0); Lymphocyte % 5.6 % (19-41); Mean Corp Hgb Conc 32.6 g/gl (32-36); Mean Corpuscular Hgb 28.1 pg (27.0-32.0); Mean Corpuscular Volume 86.1 fL (81-99); Mean Platelet Vol. 9.7 fl (6.2-12.0); Monocyte# 0.28 X10^3/uL; Monocyte% 3.3 % (0-10); Neutrophil # 7.54 X10^3/uL (2.7-7.7); Neutrophil % 89.5 % (47-70); Platelet Count 348 K/mm3 (150-450); RBC Distribution Width CV 15.7 % (11.6-14.6); RBC Distribution Width SD 50.2 fl (35.1-43.9); Red Blood Count 3.03 M/mm3 (4.2-5.4); White Blood Count 8.4 K/mm3 (4.4-11.0)
[2018-07-03 06:25] LABS: Differential Indicated SCAN CRITERIA MET; POSITIVE COUNT NO; POSITIVE DIFFERENTIAL YES; POSITIVE MORPHOLOGY NO
[2018-07-03] MEDS: hydrALAZINE 50 MG Tablet 100 MG PO ×3 (06:27→22:05)
[2018-07-03] MEDS: Heparin Injection (Vial) 5,000 UNIT/ML VIAL 5000 UNIT SC ×3 (06:28→22:09)
[2018-07-03] MEDS: 0.9% NaCl Peripheral Flush Adult/Peds IV ×2 (06:31→11:42)
[2018-07-03 06:36] LABS: Differential Comment SCANNED; Hypochromasia 2+
[2018-07-03] MEDS: Insulin Lispro 100 UNIT/ML INSULN.PEN SQ ×4 (06:56→22:07)
[2018-07-03 07:01] LABS: Bedside Glucose 215 mg/dL (70-110)
--- NOTE | 2018-07-03 09:24 | PCM.CONS.R ---
Problem List (1) Acute kidney injury Status: Acute Consultation - Renal PCP/ Referring MD: Requesting physician: [] Primary care physician: Levi Laird MD - History of Present Illness History of Present Illness: The patient is a 72 year old F past medical history of COPD , hypertension , and chronic kidney disease . Patient was admitted to the hospital recently for respiratory failure and intubation , bradycardia , acute kidney injury due to an ischemic event. Patient did not need dialysis. kidney function improved to baseline at discharge. Patient needed permanent pacemaker placement due to bradycardia during her last admission. Patient has hypertension which is somewhat difficult to manage. During her last admission losartan and hydrochlorothiazide were added in addition to amlodipine and hydralazine and Coreg. Patient presented this time with shortness of breath. Patient was admitted for COPD exacerbation. In the emergency room, blood work showed acute kidney injury with creatinine up to 2.6 from 1.23 when she left the hospital on June 19. Hydrochlorthiazide and losartan were stopped and patient given a liter of normal saline yesterday. Creatinine is better today 2.1. Patient had 1.8 L urine output. Blood pressure remains an issue.Systolic blood pressure is more than 150. She is only taking amlodipine Coreg and hydralazine She also has leg edema patient is complaining of restless leg syndrome symptoms . She could not sleep last night because of that . Patient said her breathing is better. Review of system: 12 system review is negative except for restlessness in her legs, some shortness of breath and leg edema [] - Allergies Allergies: Allergies Penicillins Allergy (Verified 07/02/18 06:26) Hives adhesive tape Adverse Reaction (Verified 07/02/18 06:26) Other - Current Medications Current Medications: Current Medications Acetaminophen (Tylenol) 650 mg PO Q6H PRN PRN PRN Reason: Mild Pain (1-3)/Temp > 100.7 F Last Admin: 07/03/18 01:09 Dose: 650 mg Albuterol Sulfate (Ventolin Aerosols) 2.5 mg INHALATION Q2H PRN PRN PRN Reason: Shortness of Breath/Wheezing Albuterol/Ipratropium (Duoneb) 3 ml INHALATION Q4H.RT EPHRAIM Last Admin: 07/03/18 07:30 Dose: 3 ml Amitriptyline HCl (Elavil) 100 mg PO QHS [facility] Last Admin: 07/02/18 22:13 Dose: 100 mg Amlodipine Besylate (Norvasc) 10 mg PO DAILY [facility] Last Admin: 07/02/18 11:16 Dose: 10 mg Aspirin (Ecotrin) 81 mg PO DAILY[facility]AN[facility] Last Admin: 07/02/18 11:16 Dose: 81 mg Atorvastatin Calcium (Lipitor) 80 mg PO HS [facility] Last Admin: 07/02/18 22:13 Dose: 80 mg Carvedilol (Coreg) 3.125 mg PO BID [facility] Last Admin: 07/02/18 22:13 Dose: 3.125 mg Dextrose (D50w Syringe) 0 gm IV X1 PRN; Protocol PRN Reason: Hypoglycemia Famotidine (Pepcid) 20 mg PO BID [facility] Last Admin: 07/02/18 22:16 Dose: 20 mg Gabapentin (Neurontin) 300 mg PO DAILYCOX BRANSON Gabapentin (Neurontin) 600 mg PO [facility] Last Admin: 07/02/18 22:16 Dose: 600 mg Glucagon () 1 mg IM .X1 PRN PRN Reason: Hypoglycemia Heparin Sodium (Porcine) (Heparin Na) 5,000 unit SC Q8 [facility] Last Admin: 07/03/18 06:28 Dose: 5,000 unit Hydralazine HCl (Apresoline) 100 mg PO TID [facility] Last Admin: 07/03/18 06:27 Dose: 100 mg Insulin Human Lispro (Humalog Kwikpen (Bkc)) 0 unit SQ ACHS [facility]; Protocol Last Admin: 07/03/18 06:56 Dose: 1 u Methylprednisolone (Solu-Medrol) 40 mg IV Q8 [facility] Stop: 07/03/18 14:01 Last Admin: 07/03/18 06:30 Dose: 40 mg Ondansetron HCl (Zofran) 4 mg IV Q8H PRN PRN PRN Reason: NAUSEA/VOMITING Pantoprazole Sodium (Protonix) 40 mg PO DAILY [facility] Last Admin: 07/02/18 11:16 Dose: 40 mg Prednisone () 40 mg PO DAILY[facility] Stop: 07/06/18 08:01 Prednisone () 30 mg PO DAILY[facility] Stop: 07/09/18 08:01 Prednisone () 20 mg PO DAILYCO[facility]AN[facility] Stop: 07/12/18 08:01 Sodium Chloride () 5 - 15 ml IV UD PRN PRN Reason: SALINE FLUSH Last Admin: 07/03/18 06:31 Dose: 10 ml Throat Lozenges (Cepacol Sore Throat Lozenge) 1 lozenge MUCOUS MEM Q2H PRN PRN PRN Reason: Sore throat or cough - Past Medical History Past Medical History (Chronic Problems): Chronic Problems (Last Reviewed 06/28/18 @ 09:50 by ANNABELLA HouC) HTN (hypertension) (Chronic) Mitral insufficiency (Chronic) Tricuspid insufficiency (Chronic) Pulmonary hypertension (Chronic) Morbid obesity with BMI of 40.0-44.9, adult (Chronic) Sleep-disordered breathing (Chronic) CAD (coronary artery disease) (Chronic) NATHAN to the LAD, and SVG to the diagonal branch, and SVG to the LCx system, and an SVG to the RCA on 04/16/2013 at [facility] with Dr. 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 Maternal Family History: Family History (Last Reviewed 06/28/18 @ 09:50 by TREVOR Hou) Mother Heart disease History Items: - - Denies known maternal cardiac history. Patient Problems: Active and Suspected Problems (Last Reviewed 06/28/18 @ 09:50 by Lia Meléndez NP-Katja) Acute respiratory failure with hypoxia (Acute) - Physical Exam General: Alert, Oriented x3 HEENT: Atraumatic, PERRLA Oral: Moist Mucosa Neck: Supple, No JVD Lungs: Clear to auscultation, Normal air movement, No rhonchi, No wheeze Cardiovascular: Regular rate, Regular Rhythm, Normal S1, Normal S2 Abdomen: Bowel Sounds Present, Soft, Non Tender, Non-Distended Extremities: No clubbing, No cyanosis, Edema - +2 edema of lower extremity Skin: No rashes Musculoskeletal: No Muscle Wasting Lymphatic: No Cervical, Supraclavicular, or Inguinal Adenopathy Neurological: Cranial nerves II-XII grossly intact, Neuro grossly intact Psych/Mental Status: Appropriate Vital Signs Temp Pulse Resp BP Pulse Ox 97.7 F L 89 18 158/70 H 94 07/03/18 06:23 07/03/18 07:12 07/03/18 06:23 07/03/18 06:27 07/03/18 06:23 Oxygen Flow Rate (L/min) 2 Oxygen Delivery Method Nasal Cannula Weight: 117.4 kg Body Mass Index (BMI) 45.5 Finger Stick Blood Glucose 155 Intake and Output for Last 24 Hours 07/01/18 07/02/18 07/03/18 23:59 23:59 23:59 Intake Total 1614 / 1614 260 / 260 Output Total 1850 / 1850 325 / 325 Balance -236 / -236 -65 / -65 Microbiology Past 72 Hours 07/02/18 15:40 Stool Occult Blood (SANJUANA) - Final Stool Laboratory Tests Past 24 Hrs 07/03/18 07/03/18 05:10 05:10 WBC 8.4 RBC 3.03 L Hgb 8.5 L Hct 26.1 L MCV 86.1 MCH 28.1 MCHC 32.6 RDW 15.7 H RDW Differential 50.2 H Plt Count 348 MPV 9.7 Immature Gran % (Auto) 1.300 H Neut % (Auto) 89.5 H Lymph % (Auto) 5.6 L [place] % (Auto) 3.3 Eos % (Auto) 0.2 Baso % (Auto) 0.1 Absolute Neuts (auto) 7.5 Absolute Lymphs (auto) 0.47 L Total Counted Not Reportable Differential Comment SCANNED Hypochromasia 2+ Sodium 136 Potassium 4.1 Chloride 100 Carbon Dioxide 26.0 Anion Gap 10 BUN 48 H Creatinine 2.10 H Estim Creat Clear Calc 20.33 Est GFR (MDRD) Af Amer 30 L Est GFR (MDRD) Non-Af 25 L BUN/Creatinine Ratio 22.9 H Glucose 211 H Calcium 7.9 L Iron 27 L TIBC 261 Iron Saturation 10.3 L Ferritin 74 Total Bilirubin 0.30 AST 15 ALT 25 Alkaline Phosphatase 98 Total Protein 6.4 Albumin 2.8 L Globulin 3.6 Albumin/Globulin Ratio 0.8 L POC Glucose 07/03/18 07/02/18 07/02/18 06:38 22:11 18:02 POC Glucose 215 H 253 H 347 H 07/02/18 11:24 POC Glucose 161 H Assessment/Plan All Active Problems (Last Reviewed 06/28/18 @ 09:50 by Lia Meléndez NP-C) Acute respiratory failure with hypoxia (Acute) Respiratory failure with hypoxia (Acute) Acute exacerbation of chronic obstructive pulmonary disease (COPD) (Acute) Bronchospasm (Acute) Viral conjunctivitis (Acute) Allergic conjunctivitis (Acute) Chemosis of conjunctiva (Acute) Bradycardia (Acute) Hypotension (Acute) Decreased responsiveness (Acute) Acute hypoxic respiratory failure (Acute) Acute kidney injury (Acute) Prerenal azotemia (Resolved) 1-acute kidney injury on chronic kidney disease stage III. Baseline creatinine 1.2 mg deciliter patient presented with a creatinine 2.6 mg/dL. UA was benign yesterday except for 50 mg/dL protein in the urine. No RBCs no white cell. Kidney function improved with holding hydrochlorthiazide and losartan and given a liter of fluid. Creatinine is down to 2.1 milligram per deciliter. Acute kidney injury is most probably from prerenal. I doubt other KURT etiologies Please continue holding diuretics NICOLAS inhibitor, and ARB. I will give the patient another liter of normal saline. No need for renal placement therapy. Keep mean arterial pressure more than 65. please dose medications for the current GFR. Check renal function panel in a.m. 2-hypertension remains uncontrolled. Steroid may be playing a role. Patient is taking hydrochlorothiazide, amlodipine and Coreg. I will add doxazosin 4 mg p.o. daily. Please avoid diuretics and NICOLAS/ARB. We will continue to monitor blood pressure. 3-leg edema might be related to steroid, pulmonary hypertension. Patient is dangling her legs all the time because of restless Syndrome . I will start the patient on allopurinol 0.25 mg p.o. daily. I asked the patient to raise her legs .I recommend compressive stockings 4-COPD exacerbation. I will defer management to the hospitalist team thank you for the consult. Thank you for the consult. Renal team will continue to follow. Plan of care was discussed with the patient, patient's family and with Dr. Mart Please call with any question at my cell: [phone]
--- NOTE | 2018-07-03 09:29 | CON.PCM_ITS ---
Problem List (1) Acute kidney injury Status: Acute Consultation - Renal PCP/ Referring MD: Requesting physician: [] Primary care physician: Levi Laird MD - History of Present Illness History of Present Illness: The patient is a 72 year old F past medical history of COPD , hypertension , and chronic kidney disease . Patient was admitted to the hospital recently for respiratory failure and intubation , bradycardia , acute kidney injury due to an ischemic event. Patient did not need dialysis. kidney function improved to baseline at discharge. Patient needed permanent pacemaker placement due to bradycardia during her last admission. Patient has hypertension which is somewhat difficult to manage. During her last admission losartan and hydrochlorothiazide were added in addition to amlodipine and hydralazine and Coreg. Patient presented this time with shortness of breath. Patient was admitted for COPD exacerbation. In the emergency room, blood work showed acute kidney injury with creatinine up to 2.6 from 1.23 when she left the hospital on June 19. Hydrochlorthiazide and losartan were stopped and patient given a liter of normal saline yesterday. Creatinine is better today 2.1. Patient had 1.8 L urine output. Blood pressure remains an issue.Systolic blood pressure is more than 150. She is only taking amlodipine Coreg and hydralazine She also has leg edema patient is complaining of restless leg syndrome symptoms . She could not sleep last night because of that . Patient said her breathing is better. Review of system: 12 system review is negative except for restlessness in her legs, some shortness of breath and leg edema [] - Allergies Allergies: Allergies Penicillins Allergy (Verified 07/02/18 06:26) Hives adhesive tape Adverse Reaction (Verified 07/02/18 06:26) Other - Current Medications Current Medications: Current Medications Acetaminophen (Tylenol) 650 mg PO Q6H PRN PRN PRN Reason: Mild Pain (1-3)/Temp > 100.7 F Last Admin: 07/03/18 01:09 Dose: 650 mg Albuterol Sulfate (Ventolin Aerosols) 2.5 mg INHALATION Q2H PRN PRN PRN Reason: Shortness of Breath/Wheezing Albuterol/Ipratropium (Duoneb) 3 ml INHALATION Q4H.RT [facility] Last Admin: 07/03/18 07:30 Dose: 3 ml Amitriptyline HCl (Elavil) 100 mg PO QHS [facility] Last Admin: 07/02/18 22:13 Dose: 100 mg Amlodipine Besylate (Norvasc) 10 mg PO DAILY [facility] Last Admin: 07/02/18 11:16 Dose: 10 mg [facility] Last Admin: 07/02/18 11:16 Dose: 81 mg Atorvastatin Calcium (Lipitor) 80 mg PO HS [facility] Last Admin: 07/02/18 22:13 Dose: 80 mg Carvedilol (Coreg) 3.125 mg PO BID [facility] Last Admin: 07/02/18 22:13 Dose: 3.125 mg Dextrose (D50w Syringe) 0 gm IV X1 PRN; Protocol PRN Reason: Hypoglycemia Famotidine (Pepcid) 20 mg PO BID [facility] Last Admin: 07/02/18 22:16 Dose: 20 mg Gabap[facility]ontin) [facility]in) [facility] Last Admin: 07/02/18 22:16 Dose: 600 mg Glucagon () 1 mg IM .X1 PRN PRN Reason: Hypoglycemia Heparin Sodium (Porcine) (Heparin Na) 5,000 unit SC Q8 [facility] Last Admin: 07/03/18 06:28 Dose: 5,000 unit Hydralazine HCl (Apresoline) 100 mg PO TID [facility] Last Admin: 07/03/18 06:27 Dose: 100 mg Insulin Human Lispro (Humalog Kwikpen (Bkc)) 0 unit SQ ACHS [facility]; Protocol Last Admin: 07/03/18 06:56 Dose: 1 u Methylprednisolone (Solu-Medrol) 40 mg IV Q8 [facility] Stop: 07/03/18 14:01 Last Admin: 07/03/18 06:30 Dose: 40 mg Ondansetron HCl (Zofran) 4 mg IV Q8H PRN PRN PRN Reason: NAUSEA/VOMITING Pantoprazole Sodium (Protonix) 40 mg PO DAILY [facility] Last Admin: 07/02/18 11:16 Dose: 40 mg Pred[facility]one () [facility] Stop: 07/06/18 08:01 Prednisone () [facility] Stop: 07/09/18 08:01 Prednisone () [facility] Stop: 07/12/18 08:01 Sodium Chloride () 5 - 15 ml IV UD PRN PRN Reason: SALINE FLUSH Last Admin: 07/03/18 06:31 Dose: 10 ml Throat Lozenges (Cepacol Sore Throat Lozenge) 1 lozenge MUCOUS MEM Q2H PRN PRN PRN Reason: Sore throat or cough - Past Medical History Past Medical History (Chronic Problems): Chronic Problems (Last Reviewed 06/28/18 @ 09:50 by ANNABELLA HouC) HTN (hypertension) (Chronic) Mitral insufficiency (Chronic) Tricuspid insufficiency (Chronic) Pulmonary hypertension (Chronic) Morbid obesity with BMI of 40.0-44.9, adult (Chronic) Sleep-disordered breathing (Chronic) CAD (coronary artery disease) (Chronic) NATHAN to the LAD, and SVG to the diagonal branch, and SVG to the LCx system, and an SVG to the RCA on 04/16/2013 at [facility] with Dr. 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 Maternal Family History: Family History (Last Reviewed 06/28/18 @ 09:50 by TREVOR Hou) Mother Heart disease History Items: - - Denies known maternal cardiac history. Patient Problems: Active and Suspected Problems (Last Reviewed 06/28/18 @ 09:50 by Lia Meléndez NP-Katja) Acute respiratory failure with hypoxia (Acute) - Physical Exam General: Alert, Oriented x3 HEENT: Atraumatic, PERRLA Oral: Moist Mucosa Neck: Supple, No JVD Lungs: Clear to auscultation, Normal air movement, No rhonchi, No wheeze Cardiovascular: Regular rate, Regular Rhythm, Normal S1, Normal S2 Abdomen: Bowel Sounds Present, Soft, Non Tender, Non-Distended Extremities: No clubbing, No cyanosis, Edema - +2 edema of lower extremity Skin: No rashes Musculoskeletal: No Muscle Wasting Lymphatic: No Cervical, Supraclavicular, or Inguinal Adenopathy Neurological: Cranial nerves II-XII grossly intact, Neuro grossly intact Psych/Mental Status: Appropriate Vital Signs Temp Pulse Resp BP Pulse Ox 97.7 F L 89 18 158/70 H 94 07/03/18 06:23 07/03/18 07:12 07/03/18 06:23 07/03/18 06:27 07/03/18 06:23 Oxygen Flow Rate (L/min) 2 Oxygen Delivery Method Nasal Cannula Weight: 117.4 kg Body Mass Index (BMI) 45.5 Finger Stick Blood Glucose 155 Intake and Output for Last 24 Hours 07/01/18 07/02/18 07/03/18 23:59 23:59 23:59 Intake Total 1614 / 1614 260 / 260 Output Total 1850 / 1850 325 / 325 Balance -236 / -236 -65 / -65 Microbiology Past 72 Hours 07/02/18 15:40 Stool Occult Blood (SANJUANA) - Final Stool Laboratory Tests Past 24 Hrs 07/03/18 07/03/18 05:10 05:10 WBC 8.4 RBC 3.03 L Hgb 8.5 L Hct 26.1 L MCV 86.1 MCH 28.1 MCHC 32.6 RDW 15.7 H RDW Differential 50.2 H Plt Count 348 MPV 9.7 Immature Gran % (Auto) 1.300 H Neut % (Auto) 89.5 H Lymph % (Auto) 5.6 L [place] % (Auto) 3.3 Eos % (Auto) 0.2 Baso % (Auto) 0.1 Absolute Neuts (auto) 7.5 Absolute Lymphs (auto) 0.47 L Total Counted Not Reportable Differential Comment SCANNED Hypochromasia 2+ Sodium 136 Potassium 4.1 Chloride 100 Carbon Dioxide 26.0 Anion Gap 10 BUN 48 H Creatinine 2.10 H Estim Creat Clear Calc 20.33 Est GFR (MDRD) Af Amer 30 L Est GFR (MDRD) Non-Af 25 L BUN/Creatinine Ratio 22.9 H Glucose 211 H Calcium 7.9 L Iron 27 L TIBC 261 Iron Saturation 10.3 L Ferritin 74 Total Bilirubin 0.30 AST 15 ALT 25 Alkaline Phosphatase 98 Total Protein 6.4 Albumin 2.8 L Globulin 3.6 Albumin/Globulin Ratio 0.8 L POC Glucose 07/03/18 07/02/18 07/02/18 06:38 22:11 18:02 POC Glucose 215 H 253 H 347 H 07/02/18 11:24 POC Glucose 161 H Assessment/Plan All Active Problems (Last Reviewed 06/28/18 @ 09:50 by Lia Meléndez NP-C) Acute respiratory failure with hypoxia (Acute) Respiratory failure with hypoxia (Acute) Acute exacerbation of chronic obstructive pulmonary disease (COPD) (Acute) Bronchospasm (Acute) Viral conjunctivitis (Acute) Allergic conjunctivitis (Acute) Chemosis of conjunctiva (Acute) Bradycardia (Acute) Hypotension (Acute) Decreased responsiveness (Acute) Acute hypoxic respiratory failure (Acute) Acute kidney injury (Acute) Prerenal azotemia (Resolved) 1-acute kidney injury on chronic kidney disease stage III. Baseline creatinine 1.2 mg deciliter patient presented with a creatinine 2.6 mg/dL. UA was benign yesterday except for 50 mg/dL protein in the urine. No RBCs no white cell. Kidney function improved with holding hydrochlorthiazide and losartan and given a liter of fluid. Creatinine is down to 2.1 milligram per deciliter. Acute kidney injury is most probably from prerenal. I doubt other KURT etiologies Please continue holding diuretics NICOLAS inhibitor, and ARB. I will give the patient another liter of normal saline. No need for renal placement therapy. Keep mean arterial pressure more than 65. please dose medications for the current GFR. Check renal function panel in a.m. 2-hypertension remains uncontrolled. Steroid may be playing a role. Patient is taking hydrochlorothiazide, amlodipine and Coreg. I will add doxazosin 4 mg p.o. daily. Please avoid diuretics and NICOLAS/ARB. We will continue to monitor blood pressure. 3-leg edema might be related to steroid, pulmonary hypertension. Patient is dangling her legs all the time because of restless Syndrome . I will start the patient on allopurinol 0.25 mg p.o. daily. I asked the patient to raise her legs .I recommend compressive stockings 4-COPD exacerbation. I will defer management to the hospitalist team thank you for the consult. Thank you for the consult. Renal team will continue to follow. Plan of care was discussed with the patient, patient's family and with Dr. Mart Please call with any question at my cell: [phone]
[2018-07-03] MEDS: Aspirin E.C. 81 MG Tablet PO (09:38)
[2018-07-03] MEDS: Pantoprazole Sodium 40 MG Tablet PO (09:38)
[2018-07-03] MEDS: Carvedilol 3.125 MG TABLET PO ×2 (09:38→22:06)
[2018-07-03] MEDS: Gabapentin 300 MG Capsule PO (09:38)
[2018-07-03] MEDS: Famotidine 20 MG Tablet PO ×2 (09:38→22:09)
[2018-07-03] MEDS: amLODIPine 10 MG Tablet PO (09:39)
--- NOTE | 2018-07-03 09:53 | EKG12_ITS ---
Test Reason : CP Blood Pressure : / mmHG Vent. Rate : 095 BPM Atrial Rate : 095 BPM P-R Int : 186 ms QRS Dur : 102 ms QT Int : 368 ms P-R-T Axes : 056 030 064 degrees QTc Int : 462 ms Normal sinus rhythm Normal ECG When compared with ECG of 02-JUL-2018 06:53, MANUAL COMPARISON REQUIRED, DATA IS UNCONFIRMED Confirmed by SUSAN MEDINA ([id number]), international editorial producer CHANEL HOGAN ([id number]) on 07/08/2018 2:37:56 PM Referred By: OMAIRA Confirmed By:DEANNE MEDINA
--- NOTE | 2018-07-03 10:35 | CPS ---
Patient having chest pain at this time (RN and DR aware), PEP therapy not done.
--- NOTE | 2018-07-03 10:38 | CASEMGMT ---
RANDY MONTALVO assessment: Face to Face with patient for initial transition planning/care coordination assessment. RANDY MONTALVO introduced self and role at [facility], pt voices understanding and consents to assessment at this time. Pt is sitting up in bed sleeping with no distress at this time. Pt's daughter is at bedside and prefers to answer all questions for pt at this time. Care providers, pharmacy, and demographics verified/updated at this time. PCP: Eitan Specialists: Vince, cardio; Jhon puljanak; Saul nephro Preferred Pharmacy: [facility] Insurance: [facility] A/B Prescription Benefit: Yes thru MCR D plan Living Will/HPOA: Pt does have LW/HPOA on file at [facility] at this time and her daughter, Adilene Morin, is HPOA. LNOK: Doris Robertson, daughter; Adilene Morin, daughter Living Arrangements: Pt lives with daughter, Doris and her , in 1 story home and daughter states no concerns at home at this time. Per daughter, pt is independent with ADL's. Transportation: Pt drives self and per daughter, there are no transportation concerns at this time. DME/HHC: Pt has grab bars in the shower and no further DME at this time. Daughter states no need for any further DME at this time. Pt is current with [facility] for RN, PT/OT at this time and daughter states no hx of SNF. Daughter states no concerns with pt going home at discharge. Pt is retired. Daughter states that pt does not smoke or drink ETOH. Daughter states no further concerns/needs at this time. CM to follow PT/OT and for any further discharge planning/needs. Advised pt to ask for CM if any further questions/concerns/needs arise, voices understanding. Plan: Home w/ [facility] HHC. [place] RANDY MONTALVO
--- NOTE | 2018-07-03 10:41 | PN_ITS ---
Patient Problems: Active and Suspected Problems (Last Reviewed 06/28/18 @ 09:50 by Lia Meléndez NP-Katja) Acute respiratory failure with hypoxia (Acute) Subjective: Patient was seen and examined. Family at the bedside. Patient complains of severe chest pain, 6 out of 10, starts from the size of the chest and breast in the midsternal region, sharp, heavy, not associated with nausea or vomiting. Still has wheezes. Denies any dizziness or palpitations. Vitals/I&O's: Vital Signs Temp Pulse Resp BP Pulse Ox 97.5 F L 96 20 H 153/46 H 93 07/03/18 10:08 07/03/18 10:12 07/03/18 10:12 07/03/18 10:30 07/03/18 10:20 Oxygen Flow Rate (L/min) 4 Oxygen Delivery Method Nasal Cannula Weight: 117.4 kg Body Mass Index (BMI) 45.5 Finger Stick Blood Glucose 155 Intake and Output for Last 24 Hours 07/01/18 07/02/18 07/03/18 23:59 23:59 23:59 Intake Total 1614 / 1614 260 / 260 Output Total 1850 / 1850 325 / 325 Balance -236 / -236 -65 / -65 General: Alert, Oriented x3, Cooperative, - - In mild respiratory distress, wheezes plus HEENT: Atraumatic, PERRLA, EOMI, Normocephalic Oral: Moist Mucosa Neck: Supple, Negative Carotid Bruits Lungs: Diminished, Tachypneic, Wheezes - ++ Cardiovascular: Regular rate, Regular Rhythm, Normal S1, Normal S2, No murmurs Abdomen: Bowel Sounds Present, Soft, Non Tender, Non-Distended, No Hepato- splenomegaly Extremities: Edema - Bipedal nontender edema +2 Skin: No rashes Musculoskeletal: No Tenderness to Palpation of Joints or Extremities Lymphatic: No Cervical, Supraclavicular, or Inguinal Adenopathy Neurological: Cranial nerves II-XII grossly intact Psych/Mental Status: Normal Affect, Appropriate Microbiology Past 72 Hours 07/02/18 15:40 Stool Stool Occult Blood (SANJUANA) - Final Laboratory Results 07/02/18 11:24: POC Glucose 161 H 07/02/18 18:02: POC Glucose 347 H 07/02/18 22:11: POC Glucose 253 H 07/03/18 05:10: WBC 8.4, RBC 3.03 L, Hgb 8.5 L, Hct 26.1 L, MCV 86.1, MCH 28.1, MCHC 32.6, RDW 15.7 H, RDW Differential 50.2 H, Plt Count 348, MPV 9.7, Immature Gran % (Auto) 1.300 H, Neut % (Auto) 89.5 H, Lymph % (Auto) 5.6 L, Ada % (Auto) 3.3, Eos % (Auto) 0.2, Baso % (Auto) 0.1, Absolute Neuts (auto) 7.5, Absolute Lymphs (auto) 0.47 L, Total Counted Not Reportable, Differential Comment SCANNED, Hypochromasia 2+ 07/03/18 05:10: Sodium 136, Potassium 4.1, Chloride 100, Carbon Dioxide 26.0, Anion Gap 10, BUN 48 H, Creatinine 2.10 H, Estim Creat Clear Calc 20.33, Est GFR (MDRD) Af Amer 30 L, Est GFR (MDRD) Non-Af 25 L, BUN/Creatinine Ratio 22.9 H, Glucose 211 H, Calcium 7.9 L, Iron 27 L, TIBC 261, Iron Saturation 10.3 L, Ferritin 74, Total Bilirubin 0.30, AST 15, ALT 25, Alkaline Phosphatase 98, Total Protein 6.4, Albumin 2.8 L, Globulin 3.6, Albumin/Globulin Ratio 0.8 L 07/03/18 06:38: POC Glucose 215 H 07/03/18 10:20: Troponin I Pending Current Medications Acetaminophen (Tylenol) 650 mg PO Q6H PRN PRN PRN Reason: Mild Pain (1-3)/Temp > 100.7 F Last Admin: 07/03/18 01:09 Dose: 650 mg Albuterol Sulfate (Ventolin Aerosols) 2.5 mg INHALATION Q2H PRN PRN PRN Reason: Shortness of Breath/Wheezing Albuterol/Ipratropium (Duoneb) 3 ml INHALATION Q4H.RT [facility] Last Admin: 07/03/18 10:12 Dose: 3 ml Amitriptyline HCl (Elavil) 100 mg PO QHS [facility] Last Admin: 07/02/18 22:13 Dose: 100 mg Amlodipine Besylate (Norvasc) 10 mg PO DAILY [facility] Last Admin: 07/03/18 09:39 Dose: 10 mg Aspirin (Ecotrin) 81 mg PO DAILYCM [facility] Last Admin: 07/03/18 09:38 Dose: 81 mg Atorvastatin Calcium (Lipitor) 80 mg PO HS [facility] Last Admin: 07/02/18 22:13 Dose: 80 mg Carvedilol (Coreg) 3.125 mg PO BID [facility] Last Admin: 07/03/18 09:38 Dose: 3.125 mg Dextrose (D50w Syringe) 0 gm IV X1 PRN; Protocol PRN Reason: Hypoglycemia Doxazosin Mesylate (Cardura) 4 mg PO QHS [facility] Famotidine (Pepcid) 20 mg PO BID [facility] Last Admin: 07/03/18 09:38 Dose: 20 mg Gabap[facility] ([facility]urontin) [facility] Last Admin: 07/03/18 09:38 Dose: 300 mg Gabapentin (Neurontin) 600 mg PO HS [facility] Last Admin: 07/02/18 22:16 Dose: 600 mg Glucagon () 1 mg IM .X1 PRN PRN Reason: Hypoglycemia Heparin Sodium (Porcine) (Heparin Na) 5,000 unit SC Q8 [facility] Last Admin: 07/03/18 06:28 Dose: 5,000 unit Hydralazine HCl (Apresoline) 100 mg PO TID [facility] Last Admin: 07/03/18 06:27 Dose: 100 mg Sodium Chloride () 1,000 mls @ 100 mls/hr IV .Q10H [facility] Stop: 07/03/18 22:00 Iron Sucrose 200 mg/ Sodium (Chloride) 110 mls @ 220 mls/hr IV DAILY [facility] Stop: 07/07/18 10:29 Insulin Human Lispro (Humalog Kwikpen (Bkc)) 0 unit SQ ACHS [facility]; Protocol Last Admin: 07/03/18 06:56 Dose: 1 u Methylprednisolone (Solu-Medrol) 40 mg IV Q8 [facility] Stop: 07/03/18 14:01 Last Admin: 07/03/18 06:30 Dose: 40 mg Nitroglycerin (Nitrostat) 0.4 mg SUBLINGUAL Q5M PRN PRN Reason: CARDIAC/CHEST PAIN Last Admin: 07/03/18 10:25 Dose: 0.4 mg Ondansetron HCl (Zofran) 4 mg IV Q8H PRN PRN PRN Reason: NAUSEA/VOMITING Pantoprazole Sodium (Protonix) 40 mg PO DAILY [facility] Last Admin: 07/03/18 09:38 Dose: 40 mg Pramipexole Dihydrochloride (Mirapex) 0.125 mg PO QHS [facility] Prednisone () [facility] Stop: 07/06/18 08:01 Prednisone () [facility] Stop: 07/09/18 08:01 Prednisone () [facility] Stop: 07/12/18 08:01 Sodium Chloride () 5 - 15 ml IV UD PRN PRN Reason: SALINE FLUSH Last Admin: 07/03/18 06:31 Dose: 10 ml Throat Lozenges (Cepacol Sore Throat Lozenge) 1 lozenge MUCOUS MEM Q2H PRN PRN PRN Reason: Sore throat or cough Medical Necessity - Tobacco Use Smoking Status: Former smoker Tobacco Use: Non-smoker Assessment/Plan All Active Problems (Last Reviewed 06/28/18 @ 09:50 by Lia Meléndez NP-C) Acute respiratory failure with hypoxia (Acute) Respiratory failure with hypoxia (Acute) Acute exacerbation of chronic obstructive pulmonary disease (COPD) (Acute) Bronchospasm (Acute) Viral conjunctivitis (Acute) Allergic conjunctivitis (Acute) Chemosis of conjunctiva (Acute) Bradycardia (Acute) Hypotension (Acute) Decreased responsiveness (Acute) Acute hypoxic respiratory failure (Acute) Acute kidney injury (Acute) Prerenal azotemia (Resolved) 72 year old F with multiple comorbidities including COPD not on home oxygen, recently discharged after a complicated hospital course in which patient was found to be minimally responsive soon after admission and managed in the ICU, intubated, bradycardic, on IV dopamine, transvenous pacemaker. Patient subsequently was extubated, managed on the nursing flow and eventually discharged home with home health. She comes in with progressive shortness of breath and anuria. 1. Chest pain, history of CAD status post CABG, EKG shows no acute ST-T changes, troponins x1 is negative Will trend troponins, family requests cardiology consult, nitro as needed, continue with aspirin, statins, beta-cha 2. Acute hypoxic respiratory failure secondary COPD exacerbation, admitting SPO2 was 77%, Still has generalised wheezes, on 4L oxygen, increased from 2L, will continue with incentive spirometer 3. Acute COPD exacerbation, remains the same, no infiltrates on chest x-ray Continue on IV steroids, breathing treatments, incentive spirometer 4. KURT on CKD stage 3, unclear etiology, her baseline creatinine is around 1.2, slighly improved, Ultrasound of the kidneys is unremarkable, Hydrochlorothiazide and losartan on hold, nephrology consulted Continue on IV fluids, Repeat blood work in a.m. 5. Hypertension, fairly controlled, will continue on home medications 6. Type II DM, blood sugars are uncontrolled, secondary to steroids, will continue to hold home metformin, continue with med-high dose insulin sliding scale with Accu-Cheks 7. Morbid obesity, BMI 45.5 8. DVT prophylaxis with heparin subcu Code Visit Inpatient E&M: 21824 Subs Hosp L2
[2018-07-03] MEDS: Albuterol 2.5 MG/3 ML VIAL.NEB. INHALATION ×2 (10:46→13:37)
[2018-07-03 12:15] LABS: Bedside Glucose 333 mg/dL (70-110)
--- NOTE | 2018-07-03 15:12 | PCM.CONS.PUL ---
Problem List (1) Acute respiratory failure with hypoxia Status: Acute (2) HTN (hypertension) Status: Chronic Qualifiers: Hypertension type: essential hypertension Qualified Code(s): I10 - Essential (primary) hypertension (3) Decreased responsiveness Status: Acute (4) Mitral insufficiency Status: Chronic (5) Tricuspid insufficiency Status: Chronic (6) Pulmonary hypertension Status: Chronic (7) Morbid obesity with BMI of 40.0-44.9, adult Status: Chronic (8) Sleep-disordered breathing Status: Chronic (9) CAD (coronary artery disease) Status: Chronic Qualifiers: Coronary Disease-Associated Artery/Lesion type: marshall artery [place] vs. transplanted heart: marshall heart Associated angina: without angina Qualified Code(s): I25.10 - Atherosclerotic heart disease of marshall coronary artery without angina pectoris Comment: NATHAN to the LAD, and SVG to the diagonal branch, and SVG to the LCx system, and an SVG to the RCA on 04/16/2013 at [facility] with Dr. Fields (10) H/O four vessel coronary artery bypass graft Status: Chronic (11) Dyslipidemia Status: Chronic (12) Diabetes mellitus type 2 in obese Status: Chronic Reason for Consult Date of Consultation: 07/03/18 Reason for Consultation: Hypoxia History of Present Illness: The patient is a 72 year old F, with past medical history listed below, who presented to [facility] on 07/02/2018 secondary to progressive shortness of breath. Patient was taking care of by myself during the recent hospitalization but required ICU care with mechanical ventilation and acute kidney injury. Patient was discharged to skilled therapy and did not qualify for supplemental oxygen on the day of discharge. During this evaluation, patient presented to the emergency department with wheezing and inability to urinate for almost a day. Patient had denied any fevers or chills, but was found to saturate 77% on room air in the emergency department. Blood pressure was adequate at that time, but patient did require 3 L nasal cannula to maintain saturations. Patient was noted to be lethargic at that time, but ABG showed adequate ventilation. Laboratory work-up did show a significant increase in creatinine to 2.6 from a new baseline of 1.26. Chest x-ray showed chronic elevation of the right hemidiaphragm without obvious infiltrates. Patient was admitted to the PCU on supplemental oxygen. Over the last 24 hours, patient reported a sharp pain sensation in the middle of her chest. Patient has had significant anasarca develop over the last 48 to 72 hours per her family. Patient is also had worsening in her oxygenation requiring 4 to 5 L of nasal cannula oxygen to maintain saturations. Patient has not required BiPAP therapy. During the last hospitalization, patient was noted to have bradycardia requiring transvenous pacer. Patient does not have any significant bradycardia during this hospitalization. However, patient was on losartan and hydrochlorothiazide as an outpatient, in addition to amlodipine, hydralazine and Coreg. Patient does report restless legs at baseline and she believes this leads to poor sleep. Patient was seen in my office as an outpatient with Lia Meléndez. Patient has had multiple tests ordered, but has not been able to complete any of these prior to this hospitalization. Review of systems otherwise negative x10 systems. Past Medical History Past Medical History (Chronic Problems): Chronic Problems (Last Reviewed 06/28/18 @ 09:50 by Lia Meléndez, LISA-C) HTN (hypertension) (Chronic) Mitral insufficiency (Chronic) Tricuspid insufficiency (Chronic) Pulmonary hypertension (Chronic) Morbid obesity with BMI of 40.0-44.9, adult (Chronic) Sleep-disordered breathing (Chronic) CAD (coronary artery disease) (Chronic) NATHAN to the LAD, and SVG to the diagonal branch, and SVG to the LCx system, and an SVG to the RCA on 04/16/2013 at [facility] with Dr. Fields H/O four vessel coronary artery bypass graft (Chronic) Dyslipidemia (Chronic) COPD (chronic obstructive pulmonary disease) (Chronic) Diabetes mellitus type 2 in obese (Chronic) Medical History: Medical History (Last Reviewed 06/28/18 @ 09:50 by Lia Meléndez, LISA-C) Respiratory failure with hypoxia (Acute) J96.91 Acute exacerbation of chronic obstructive pulmonary disease (COPD) (Acute) J44.1 Bronchospasm (Acute) J98.01 Viral conjunctivitis (Acute) B30.9 Allergic conjunctivitis (Acute) H10.10 Chemosis of conjunctiva (Acute) H11.429 Bradycardia (Acute) R00.1 Hypotension (Acute) I95.9 HTN (hypertension) (Chronic) I10 Decreased responsiveness (Acute) Acute hypoxic respiratory failure (Acute) Mitral insufficiency (Chronic) I34.0 Tricuspid insufficiency (Chronic) I07.1 Pulmonary hypertension (Chronic) I27.20 Morbid obesity with BMI of 40.0-44.9, adult (Chronic) E66.01, Z68.41 Sleep-disordered breathing (Chronic) G47.30 CAD (coronary artery disease) (Chronic) I25.10 NATHAN to the LAD, and SVG to the diagonal branch, and SVG to the LCx system, and an SVG to the RCA on 04/16/2013 at [facility] with Dr. Fields Dyslipidemia (Chronic) E78.5 COPD (chronic obstructive pulmonary disease) (Chronic) J44.9 Acute kidney injury (Acute) N17.9 Diabetes mellitus type 2 in obese (Chronic) E11.69, E66.9 Allergies Penicillins Allergy (Verified 07/02/18 06:26) Hives adhesive tape Adverse Reaction (Verified 07/02/18 06:26) Other Home Medications: Ambulatory Orders Medication Instructions Recorded Amitriptyline HCl [Elavil] 100 mg PO QHS 04/09/13 Metformin(XR) [Glucophage Xr] 500 mg PO DAILY 12/25/16 Omeprazole 40 mg PO DAILY 12/25/16 Pioglitazone [Actos] 30 mg PO DAILY 12/25/16 Tiotropium [place] [Spiriva] 1 puff INHALATION DAILY 12/25/16 Aspirin E.C. [Ecotrin] 81 mg PO DAILY 10/25/17 Atorvastatin Calcium 80 mg PO DAILY 10/25/17 Gabapentin [Neurontin] 300 mg PO .COMPLEX 10/25/17 Losartan Potassium 100 mg PO DAILY 10/25/17 Amlodipine Besylate 10 mg PO DAILY 06/01/18 Carvedilol [Coreg (Beta Nya)] 3.125 mg PO BID #60 tab 06/12/18 Hydrochlorothiazide [Hctz] 25 mg PO DAILY #30 tab 06/12/18 hydrALAZINE [Apresoline] 100 mg PO TID #90 tab 06/12/18 Surgical History: Surgical History (Last Reviewed 06/28/18 @ 09:50 by Lia Meléndez LABEL DRIER-C) H/O four vessel coronary artery bypass graft (Chronic) Z95.1 Surgical History: appendectomy, cholecystectomy, - Lives: With Family Smoking Status: Former smoker Tobacco Use: Non-smoker Alcohol: None Drugs: None - *Family History Paternal Family History: Family History (Last Reviewed 06/28/18 @ 09:50 by TREVOR Hou) Mother Heart disease History Items: - - Denies known paternal cardiac history. Maternal Family History: Family History (Last Reviewed 06/28/18 @ 09:50 by TREVOR Hou) Mother Heart disease History Items: - - Denies known maternal cardiac history. Review of Systems Comment: See HPI Patient Problems: Active and Suspected Problems (Last Reviewed 06/28/18 @ 09:50 by TREVOR Hou) Acute respiratory failure with hypoxia (Acute) Objective: Chest x-ray was personally reviewed and described in HPI. Echocardiogram during last admission showed an EF of 60% with stage II diastolic dysfunction, elevated pulmonary artery systolic pressure of 44 mmHg with mild focal aortic valve calcification. This had been consistent compared to previous examination. Patient is never had pulmonary function test. - Physical Exam General: Alert, Oriented x3, Cooperative, No apparent distress, - - Morbidly obese. No conversational dyspnea noted. Anasarca. HEENT: Atraumatic, PERRLA, EOMI, Normocephalic, - - Glasses in place. Scleral injection without icterus Oral: Moist Mucosa, No Gingival or Mucosal Lesions/ Ulcerations, - - Crowded posterior pharynx Neck: Supple, No Nodes, Trachea Midline, - - Difficult to assess JVD secondary to body habitus Lungs: No rhonchi, Diminished, Rales, Wheezes, - - Symmetric expansion. Slight dullness to percussion at the right base Cardiovascular: Regular rate, Regular Rhythm, Normal S1, Normal S2, Murmur - Grade 2 out of 6 systolic ejection murmur at the right sternal border, No rub noted, No Gallop Abdomen: Bowel Sounds Present, Soft, Non Tender, Non-Distended, Obese Extremities: No clubbing, No cyanosis, Edema Skin: No rashes, No breakdown Musculoskeletal: No Tenderness to Palpation of Joints or Extremities Lymphatic: No Cervical, Supraclavicular, or Inguinal Adenopathy Neurological: Cranial nerves II-XII grossly intact Psych/Mental Status: Alert and oriented to time, place, person, mood and affect Vital Signs Temp Pulse Resp BP Pulse Ox 36.5 C L 89 20 H 149/56 H 96 07/03/18 13:13 07/03/18 13:18 07/03/18 13:13 07/03/18 13:13 07/03/18 13:13 Oxygen Flow Rate (L/min) 4 Oxygen Delivery Method Nasal Cannula Weight: 117.4 kg Body Mass Index (BMI) 45.5 Finger Stick Blood Glucose 155 Intake and Output for Last 24 Hours 07/01/18 07/02/18 07/03/18 23:59 23:59 23:59 Intake Total 1614 / 1614 500 / 500 Output Total 1850 / 1850 575 / 575 Balance -236 / -236 -75 / -75 Microbiology Past 72 Hours 07/02/18 15:40 Stool Occult Blood (SANJUANA) - Final Stool Laboratory Tests Past 24 Hrs 07/03/18 07/03/18 07/03/18 05:10 05:10 10:20 WBC 8.4 RBC 3.03 L Hgb 8.5 L Hct 26.1 L MCV 86.1 MCH 28.1 MCHC 32.6 RDW 15.7 H RDW Differential 50.2 H Plt Count 348 MPV 9.7 Immature Gran % (Auto) 1.300 H Neut % (Auto) 89.5 H Lymph % (Auto) 5.6 L Metcalfe % (Auto) 3.3 Eos % (Auto) 0.2 Baso % (Auto) 0.1 Absolute Neuts (auto) 7.5 Absolute Lymphs (auto) 0.47 L Total Counted Not Reportable Differential Comment SCANNED Hypochromasia 2+ Sodium 136 Potassium 4.1 Chloride 100 Carbon Dioxide 26.0 Anion Gap 10 BUN 48 H Creatinine 2.10 H Estim Creat Clear Calc 20.33 Est GFR (MDRD) Af Amer 30 L Est GFR (MDRD) Non-Af 25 L BUN/Creatinine Ratio 22.9 H Glucose 211 H Calcium 7.9 L Iron 27 L TIBC 261 Iron Saturation 10.3 L Ferritin 74 Total Bilirubin 0.30 AST 15 ALT 25 Alkaline Phosphatase 98 Troponin I < 0.015 Total Protein 6.4 Albumin 2.8 L Globulin 3.6 Albumin/Globulin Ratio 0.8 L 07/03/18 12:50 WBC RBC Hgb Hct MCV MCH MCHC RDW RDW Differential Plt Count MPV Immature Gran % (Auto) Neut % (Auto) Lymph % (Auto) Metcalfe % (Auto) Eos % (Auto) Baso % (Auto) Absolute Neuts (auto) Absolute Lymphs (auto) Total Counted Differential Comment Hypochromasia Sodium Potassium Chloride Carbon Dioxide Anion Gap BUN Creatinine Estim Creat Clear Calc Est GFR (MDRD) Af Amer Est GFR (MDRD) Non-Af BUN/Creatinine Ratio Glucose Calcium Iron TIBC Iron Saturation Ferritin Total Bilirubin AST ALT Alkaline Phosphatase Troponin I < 0.015 Total Protein Albumin Globulin Albumin/Globulin Ratio POC Glucose 07/03/18 07/03/18 07/02/18 11:40 06:38 22:11 POC Glucose 333 H 215 H 253 H 07/02/18 18:02 POC Glucose 347 H Clinical Impression(s) from Imaging Studies Chest X-Ray 07/02/18 06:34 IMPRESSION: 1. No acute cardiopulmonary disease. No significant change. 2. Chronic elevation of the right hemidiaphragm. 3. Borderline cardiomegaly. Previous CABG. at 0780 Reported and signed by: Alphonso Gleason MD Electronically Signed: Alphonso Gleason, at 7:48 EDT Tel , Service support , Renal Ultrasound 07/02/18 17:49 IMPRESSION: Normal ultrasound of the kidneys. Electronically Signed: Mele Khalil DO at 19:59 EDT Tel [phone], Service support , Assessment/Plan All Active Problems (Last Reviewed 06/28/18 @ 09:50 by Lia Meléndez NP-C) Acute respiratory failure with hypoxia (Acute) Respiratory failure with hypoxia (Acute) Acute exacerbation of chronic obstructive pulmonary disease (COPD) (Acute) Bronchospasm (Acute) Viral conjunctivitis (Acute) Allergic conjunctivitis (Acute) Chemosis of conjunctiva (Acute) Bradycardia (Acute) Hypotension (Acute) Decreased responsiveness (Acute) Acute hypoxic respiratory failure (Acute) Acute kidney injury (Acute) Prerenal azotemia (Resolved) RECOMMENDATIONS: 1. Continue supportive therapy 2. Possible need for BiPAP rescue overnight 3. Wean oxygen as tolerated 4. No antibiotics or steroids indicated from my perspective 5. Await renal recommendations IMPRESSIONS: 1. Acute hypoxic respiratory insufficiency secondary to probable acute on chronic diastolic congestive heart failure Patient with significant wheezing. This is likely not to respond to beta agonists given etiology likely is excessive fluid. Patient may benefit from BiPAP therapy if there is difficulty overnight. High clinical suspicion for undiagnosed obstructive sleep apnea. Patient may develop polyuric phase of ATN and auto diuresis. Would not actively diurese at this time unless respiratory status becomes further compromised. ABG as indicated for decreased mental status 2. Acute on chronic diastolic congestive heart failure secondary to postobstructive uropathy with renal failure She appears to have an element of anasarca at this time. Patient's albumin is low leading to decreased oncotic pressure. Patient does have significant sub-dermal edema. Would defer to nephrology if patient will be worked up for nephrotic type syndromes. Patient may require active diuresis if respiratory status decompensates. 3. Acute kidney injury on chronic kidney disease stage III Suspicion for postobstructive uropathy secondary to urinary retention. Patient does appear to have some improvement with conservative therapy. Would hold off on any diuretic therapy for now, but this may be helpful if patient were to develop hypoxemia requiring BiPAP rescue. 4. Poorly controlled hypertension Nephrology is currently following. Some medications are contraindicated given patient's renal function. We will continue to monitor closely. Patient is not showing any signs of endorgan damage except for renal dysfunction. 5. Morbid obesity/probable COPD/diabetes mellitus type 2/GERD/anxiety/hyperlipidemia/coronary artery disease Complicates care, management, recovery and prognosis. Do not believe patient is having acute exacerbation of COPD, so no steroids or antibiotics are indicated. Code Visit Inpatient E&M: 90428 Init Hosp L3
--- NOTE | 2018-07-03 15:17 | CON.PCM_ITS ---
Problem List (1) Acute respiratory failure with hypoxia Status: Acute (2) HTN (hypertension) Status: Chronic Qualifiers: Hypertension type: essential hypertension Qualified Code(s): I10 - Essential (primary) hypertension (3) Decreased responsiveness Status: Acute (4) Mitral insufficiency Status: Chronic (5) Tricuspid insufficiency Status: Chronic (6) Pulmonary hypertension Status: Chronic (7) Morbid obesity with BMI of 40.0-44.9, adult Status: Chronic (8) Sleep-disordered breathing Status: Chronic (9) CAD (coronary artery disease) Status: Chronic Qualifiers: Coronary Disease-Associated Artery/Lesion type: [place] artery [place] vs. transplanted heart: [place] heart Associated angina: without angina Qualified Code(s): I25.10 - Atherosclerotic heart disease of [place] coronary artery without angina pectoris Comment: NATHAN to the LAD, and SVG to the diagonal branch, and SVG to the LCx system, and an SVG to the RCA on 04/16/2013 at [facility] with Dr. Fields (10) H/O four vessel coronary artery bypass graft Status: Chronic (11) Dyslipidemia Status: Chronic (12) Diabetes mellitus type 2 in obese Status: Chronic Reason for Consult Date of Consultation: 07/03/18 Reason for Consultation: Hypoxia History of Present Illness: The patient is a 72 year old F, with past medical history listed below, who presented to [facility] on 07/02/2018 secondary to progressive shortness of breath. Patient was taking care of by myself during the recent hospitalization but required ICU care with mechanical ventilation and acute kidney injury. Patient was discharged to skilled therapy and did not qualify for supplemental oxygen on the day of discharge. During this evaluation, patient presented to the emergency department with wheezing and inability to urinate for almost a day. Patient had denied any fevers or chills, but was found to saturate 77% on room air in the emergency department. Blood pressure was adequate at that time, but patient did require 3 L nasal cannula to maintain saturations. Patient was noted to be lethargic at that time, but ABG showed adequate ventilation. Laboratory work-up did show a significant increase in creatinine to 2.6 from a new baseline of 1.26. Chest x- ray showed chronic elevation of the right hemidiaphragm without obvious infiltrates. Patient was admitted to the PCU on supplemental oxygen. Over the last 24 hours, patient reported a sharp pain sensation in the middle of her chest. Patient has had significant anasarca develop over the last 48 to 72 hours per her family. Patient is also had worsening in her oxygenation requiring 4 to 5 L of nasal cannula oxygen to maintain saturations. Patient has not required BiPAP therapy. During the last hospitalization, patient was noted to have bradycardia requiring transvenous pacer. Patient does not have any significant bradycardia during this hospitalization. However, patient was on losartan and hydrochlorothiazide as an outpatient, in addition to amlodipine, hydralazine and Coreg. Patient does report restless legs at baseline and she believes this leads to poor sleep. Patient was seen in my office as an outpatient with Lia Meléndez. Patient has had multiple tests ordered, but has not been able to complete any of these prior to this hospitalization. Review of systems otherwise negative x10 systems. Past Medical History Past Medical History (Chronic Problems): Chronic Problems (Last Reviewed 06/28/18 @ 09:50 by Lia Meléndez, LISA-C) HTN (hypertension) (Chronic) Mitral insufficiency (Chronic) Tricuspid insufficiency (Chronic) Pulmonary hypertension (Chronic) Morbid obesity with BMI of 40.0-44.9, adult (Chronic) Sleep-disordered breathing (Chronic) CAD (coronary artery disease) (Chronic) NATHAN to the LAD, and SVG to the diagonal branch, and SVG to the LCx system, and an SVG to the RCA on 04/16/2013 at [facility] with Dr. Fields H/O four vessel coronary artery bypass graft (Chronic) Dyslipidemia (Chronic) COPD (chronic obstructive pulmonary disease) (Chronic) Diabetes mellitus type 2 in obese (Chronic) Medical History: Medical History (Last Reviewed 06/28/18 @ 09:50 by Lia Meléndez, LISA-C) Respiratory failure with hypoxia (Acute) J96.91 Acute exacerbation of chronic obstructive pulmonary disease (COPD) (Acute) J44.1 Bronchospasm (Acute) J98.01 Viral conjunctivitis (Acute) B30.9 Allergic conjunctivitis (Acute) H10.10 Chemosis of conjunctiva (Acute) H11.429 Bradycardia (Acute) R00.1 Hypotension (Acute) I95.9 HTN (hypertension) (Chronic) I10 Decreased responsiveness (Acute) Acute hypoxic respiratory failure (Acute) Mitral insufficiency (Chronic) I34.0 Tricuspid insufficiency (Chronic) I07.1 Pulmonary hypertension (Chronic) I27.20 Morbid obesity with BMI of 40.0-44.9, adult (Chronic) E66.01, Z68.41 Sleep-disordered breathing (Chronic) G47.30 CAD (coronary artery disease) (Chronic) I25.10 NATHAN to the LAD, and SVG to the diagonal branch, and SVG to the LCx system, and an SVG to the RCA on 04/16/2013 at [facility] with Dr. Fields Dyslipidemia (Chronic) E78.5 COPD (chronic obstructive pulmonary disease) (Chronic) J44.9 Acute kidney injury (Acute) N17.9 Diabetes mellitus type 2 in obese (Chronic) E11.69, E66.9 Allergies Penicillins Allergy (Verified 07/02/18 06:26) Hives adhesive tape Adverse Reaction (Verified 07/02/18 06:26) Other Home Medications: Ambulatory Orders Medication Instructions Recorded Amitriptyline HCl [Elavil] 100 mg PO QHS 04/09/13 Metformin(XR) [Glucophage Xr] 500 mg PO DAILY 12/25/16 Omeprazole 40 mg PO DAILY 12/25/16 Pioglitazone [Actos] 30 mg PO DAILY 12/25/16 Tiotropium [place] [Spiriva] 1 puff INHALATION DAILY 12/25/16 Aspirin E.C. [Ecotrin] 81 mg PO DAILY 10/25/17 Atorvastatin Calcium 80 mg PO DAILY 10/25/17 Gabapentin [Neurontin] 300 mg PO .COMPLEX 10/25/17 Losartan Potassium 100 mg PO DAILY 10/25/17 Amlodipine Besylate 10 mg PO DAILY 06/01/18 Carvedilol [Coreg (Beta Nya)] 3.125 mg PO BID #60 tab 06/12/18 Hydrochlorothiazide [Hctz] 25 mg PO DAILY #30 tab 06/12/18 hydrALAZINE [Apresoline] 100 mg PO TID #90 tab 06/12/18 Surgical History: Surgical History (Last Reviewed 06/28/18 @ 09:50 by Lia Meléndez [employer]-C) H/O four vessel coronary artery bypass graft (Chronic) Z95.1 Surgical History: appendectomy, cholecystectomy, - Lives: With Family Smoking Status: Former smoker Tobacco Use: Non-smoker Alcohol: None Drugs: None - *Family History Paternal Family History: Family History (Last Reviewed 06/28/18 @ 09:50 by TREVOR Hou) Mother Heart disease History Items: - - Denies known paternal cardiac history. Maternal Family History: Family History (Last Reviewed 06/28/18 @ 09:50 by TREVOR Hou) Mother Heart disease History Items: - - Denies known maternal cardiac history. Review of Systems Comment: See HPI Patient Problems: Active and Suspected Problems (Last Reviewed 06/28/18 @ 09:50 by TREVOR Hou) Acute respiratory failure with hypoxia (Acute) Objective: Chest x-ray was personally reviewed and described in HPI. Echocardiogram during last admission showed an EF of 60% with stage II diastolic dysfunction, elevated pulmonary artery systolic pressure of 44 mmHg with mild focal aortic valve calcification. This had been consistent compared to previous examination. Patient is never had pulmonary function test. - Physical Exam General: Alert, Oriented x3, Cooperative, No apparent distress, - - Morbidly obese. No conversational dyspnea noted. Anasarca. HEENT: Atraumatic, PERRLA, EOMI, Normocephalic, - - Glasses in place. Scleral injection without icterus Oral: Moist Mucosa, No Gingival or Mucosal Lesions/ Ulcerations, - - Crowded posterior pharynx Neck: Supple, No Nodes, Trachea Midline, - - Difficult to assess JVD secondary to body habitus Lungs: No rhonchi, Diminished, Rales, Wheezes, - - Symmetric expansion. Slight dullness to percussion at the right base Cardiovascular: Regular rate, Regular Rhythm, Normal S1, Normal S2, Murmur - Grade 2 out of 6 systolic ejection murmur at the right sternal border, No rub noted, No Gallop Abdomen: Bowel Sounds Present, Soft, Non Tender, Non-Distended, Obese Extremities: No clubbing, No cyanosis, Edema Skin: No rashes, No breakdown Musculoskeletal: No Tenderness to Palpation of Joints or Extremities Lymphatic: No Cervical, Supraclavicular, or Inguinal Adenopathy Neurological: Cranial nerves II-XII grossly intact Psych/Mental Status: Alert and oriented to time, place, person, mood and affect Vital Signs Temp Pulse Resp BP Pulse Ox 36.5 C L 89 20 H 149/56 H 96 07/03/18 13:13 07/03/18 13:18 07/03/18 13:13 07/03/18 13:13 07/03/18 13:13 Oxygen Flow Rate (L/min) 4 Oxygen Delivery Method Nasal Cannula Weight: 117.4 kg Body Mass Index (BMI) 45.5 Finger Stick Blood Glucose 155 Intake and Output for Last 24 Hours 07/01/18 07/02/18 07/03/18 23:59 23:59 23:59 Intake Total 1614 / 1614 500 / 500 Output Total 1850 / 1850 575 / 575 Balance -236 / -236 -75 / -75 Microbiology Past 72 Hours 07/02/18 15:40 Stool Occult Blood (SANJUANA) - Final Stool Laboratory Tests Past 24 Hrs 07/03/18 07/03/18 07/03/18 05:10 05:10 10:20 WBC 8.4 RBC 3.03 L Hgb 8.5 L Hct 26.1 L MCV 86.1 MCH 28.1 MCHC 32.6 RDW 15.7 H RDW Differential 50.2 H Plt Count 348 MPV 9.7 Immature Gran % (Auto) 1.300 H Neut % (Auto) 89.5 H Lymph % (Auto) 5.6 L [place] % (Auto) 3.3 Eos % (Auto) 0.2 Baso % (Auto) 0.1 Absolute Neuts (auto) 7.5 Absolute Lymphs (auto) 0.47 L Total Counted Not Reportable Differential Comment SCANNED Hypochromasia 2+ Sodium 136 Potassium 4.1 Chloride 100 Carbon Dioxide 26.0 Anion Gap 10 BUN 48 H Creatinine 2.10 H Estim Creat Clear Calc 20.33 Est GFR (MDRD) Af Amer 30 L Est GFR (MDRD) Non-Af 25 L BUN/Creatinine Ratio 22.9 H Glucose 211 H Calcium 7.9 L Iron 27 L TIBC 261 Iron Saturation 10.3 L Ferritin 74 Total Bilirubin 0.30 AST 15 ALT 25 Alkaline Phosphatase 98 Troponin I < 0.015 Total Protein 6.4 Albumin 2.8 L Globulin 3.6 Albumin/Globulin Ratio 0.8 L 07/03/18 12:50 WBC RBC Hgb Hct MCV MCH MCHC RDW RDW Differential Plt Count MPV Immature Gran % (Auto) Neut % (Auto) Lymph % (Auto) [place] % (Auto) Eos % (Auto) Baso % (Auto) Absolute Neuts (auto) Absolute Lymphs (auto) Total Counted Differential Comment Hypochromasia Sodium Potassium Chloride Carbon Dioxide Anion Gap BUN Creatinine Estim Creat Clear Calc Est GFR (MDRD) Af Amer Est GFR (MDRD) Non-Af BUN/Creatinine Ratio Glucose Calcium Iron TIBC Iron Saturation Ferritin Total Bilirubin AST ALT Alkaline Phosphatase Troponin I < 0.015 Total Protein Albumin Globulin Albumin/Globulin Ratio POC Glucose 07/03/18 07/03/18 07/02/18 11:40 06:38 22:11 POC Glucose 333 H 215 H 253 H 07/02/18 18:02 POC Glucose 347 H Clinical Impression(s) from Imaging Studies Chest X-Ray 07/02/18 06:34 IMPRESSION: 1. No acute cardiopulmonary disease. No significant change. 2. Chronic elevation of the right hemidiaphragm. 3. Borderline cardiomegaly. Previous CABG. at 0789 Reported and signed by: Alphonso Gleason MD Electronically Signed: Alphonso Gleason, at 7:48 EDT Tel , Service support , Renal Ultrasound 07/02/18 17:49 IMPRESSION: Normal ultrasound of the kidneys. Electronically Signed: Mele Khalil DO at 19:59 EDT Tel [phone], Service support , Assessment/Plan All Active Problems (Last Reviewed 06/28/18 @ 09:50 by Lia Meléndez NP-C) Acute respiratory failure with hypoxia (Acute) Respiratory failure with hypoxia (Acute) Acute exacerbation of chronic obstructive pulmonary disease (COPD) (Acute) Bronchospasm (Acute) Viral conjunctivitis (Acute) Allergic conjunctivitis (Acute) Chemosis of conjunctiva (Acute) Bradycardia (Acute) Hypotension (Acute) Decreased responsiveness (Acute) Acute hypoxic respiratory failure (Acute) Acute kidney injury (Acute) Prerenal azotemia (Resolved) RECOMMENDATIONS: 1. Continue supportive therapy 2. Possible need for BiPAP rescue overnight 3. Wean oxygen as tolerated 4. No antibiotics or steroids indicated from my perspective 5. Await renal recommendations IMPRESSIONS: 1. Acute hypoxic respiratory insufficiency secondary to probable acute on chronic diastolic congestive heart failure Patient with significant wheezing. This is likely not to respond to beta agonists given etiology likely is excessive fluid. Patient may benefit from BiPAP therapy if there is difficulty overnight. High clinical suspicion for undiagnosed obstructive sleep apnea. Patient may develop polyuric phase of ATN and auto diuresis. Would not actively diurese at this time unless respiratory status becomes further compromised. ABG as indicated for decreased mental status 2. Acute on chronic diastolic congestive heart failure secondary to postobstructive uropathy with renal failure She appears to have an element of anasarca at this time. Patient's albumin is low leading to decreased oncotic pressure. Patient does have significant sub-dermal edema. Would defer to nephrology if patient will be worked up for nephrotic type syndromes. Patient may require active diuresis if respiratory status decompensates. 3. Acute kidney injury on chronic kidney disease stage III Suspicion for postobstructive uropathy secondary to urinary retention. Patient does appear to have some improvement with conservative therapy. Would hold off on any diuretic therapy for now, but this may be helpful if patient were to develop hypoxemia requiring BiPAP rescue. 4. Poorly controlled hypertension Nephrology is currently following. Some medications are contraindicated given patient's renal function. We will continue to monitor closely. Patient is not showing any signs of endorgan damage except for renal dysfunction. 5. Morbid obesity/probable COPD/diabetes mellitus type 2/GERD/anxiety/hyperlipidemia/coronary artery disease Complicates care, management, recovery and prognosis. Do not believe patient is having acute exacerbation of COPD, so no steroids or antibiotics are indicated. Code Visit Inpatient E&M: [id number] Init Hosp L3
--- NOTE | 2018-07-03 15:36 | CON.PCM_ITS ---
Problem List (1) CAD (coronary artery disease) Status: Chronic Qualifiers: Coronary Disease-Associated Artery/Lesion type: [place] artery [place] vs. transplanted heart: [place] heart Associated angina: without angina Qualified Code(s): I25.10 - Atherosclerotic heart disease of [place] coronary artery without angina pectoris Comment: NATHAN to the LAD, and SVG to the diagonal branch, and SVG to the LCx system, and an SVG to the RCA on 04/16/2013 at [facility] with Dr. Fields (2) H/O four vessel coronary artery bypass graft Status: Chronic (3) Dyslipidemia Status: Chronic (4) HTN (hypertension) Status: Chronic Qualifiers: Hypertension type: essential hypertension Qualified Code(s): I10 - Essential (primary) hypertension (5) Diabetes mellitus type 2 in obese Status: Chronic (6) Acute exacerbation of chronic obstructive pulmonary disease (COPD) Status: Acute (7) Acute kidney injury Status: Acute Reason for Consult Date of Consultation: 07/03/18 History of Present Illness: The patient is a 72 year old white female with a past cardiovascular history which is included hyperlipidemia, hypertension, CAD, CABG, MR/TR, superimposed upon concerns of bradycardia (recently evaluated and treated by holding rate limiting medications and requiring a temporary transvenous pacemaker), diabetes mellitus, COPD exacerbation, and recurrent acute on chronic renal insufficiency who was referred for evaluation of her cardiovascular status and concerns of underlying chest discomfort. The patient was recently at [facility] for multiple medical issues with cardiovascular consultation being provided on 06/02/2018. She underwent evaluation and care at that time for concerns of her bradycardia which required holding rate limiting medication, using IV atropine, using IV vasopressor support, using temporary transcutaneous pacemaking, and using temporary transvenous pacemaking until her condition stabilized. Once stabilized she did not proceed to require permanent pacemaker placement. She had regain sinus rhythm and hemodynamic stability with respect to resolution of concerns of hypotension. She underwent medical management. She was eventually released home. She presents back now for concerns of progressive shortness of breath/dyspnea and audible wheezing. There were concerns of an underlying COPD exacerbation as well as recurrent acute on chronic renal insufficiency. She was placed in the PCU for further evaluation and care. She has been noted to have audible wheezing. This day she complained of some chest pressure that radiating from the outside of her right and left pectoral areas towards the center of her chest. Her family was with her and felt that she became very anxious. She did not have associated nausea, emesis, or an abrupt worsening of her shortness of breath and dyspnea. There was no near syncope or syncope. She was evaluated by internal medicine. She had a cardiac enzyme level performed which was negative. She had a follow-up ECG performed which demonstrated sinus rhythm. Cardiac enzyme was subsequently repeated and remained negative. She was treated with nitroglycerin sublingual. She claimed it gave her some relief of her symptoms. She has continued with her audible wheezing. [] Past Medical History Allergies/Adverse Reactions: Allergies Penicillins Allergy (Verified 07/02/18 06:26) Hives adhesive tape Adverse Reaction (Verified 07/02/18 06:26) Other Home Medications: Ambulatory Orders Medication Instructions Recorded Amitriptyline HCl [Elavil] 100 mg PO QHS 04/09/13 Metformin(XR) [Glucophage Xr] 500 mg PO DAILY 12/25/16 Omeprazole 40 mg PO DAILY 12/25/16 Pioglitazone [Actos] 30 mg PO DAILY 12/25/16 Tiotropium [place] [Spiriva] 1 puff INHALATION DAILY 12/25/16 Aspirin E.C. [Ecotrin] 81 mg PO DAILY 10/25/17 Atorvastatin Calcium 80 mg PO DAILY 10/25/17 Gabapentin [Neurontin] 300 mg PO .COMPLEX 10/25/17 Losartan Potassium 100 mg PO DAILY 10/25/17 Amlodipine Besylate 10 mg PO DAILY 06/01/18 Carvedilol [Coreg (Beta Nya)] 3.125 mg PO BID #60 tab 06/12/18 Hydrochlorothiazide [Hctz] 25 mg PO DAILY #30 tab 06/12/18 hydrALAZINE [Apresoline] 100 mg PO TID #90 tab 06/12/18 Past Medical History (Chronic Problems): Chronic Problems (Last Reviewed 06/28/18 @ 09:50 by Lia Meléndez NP-C) HTN (hypertension) (Chronic) Mitral insufficiency (Chronic) Tricuspid insufficiency (Chronic) Pulmonary hypertension (Chronic) Morbid obesity with BMI of 40.0-44.9, adult (Chronic) Sleep-disordered breathing (Chronic) CAD (coronary artery disease) (Chronic) NATHAN to the LAD, and SVG to the diagonal branch, and SVG to the LCx system, and an SVG to the RCA on 04/16/2013 at [facility] with Dr. Fields H/O four vessel coronary artery bypass graft (Chronic) Dyslipidemia (Chronic) COPD (chronic obstructive pulmonary disease) (Chronic) Diabetes mellitus type 2 in obese (Chronic) Surgical History: appendectomy, cholecystectomy, - - *Family History Paternal Family History: Family History (Last Reviewed 06/28/18 @ 09:50 by TREVOR Hou) Mother Heart disease History Items: - - Denies known paternal cardiac history. Maternal Family History: Family History (Last Reviewed 06/28/18 @ 09:50 by TREVOR Hou) Mother Heart disease History Items: - - Denies known maternal cardiac history. Lives: With Family Smoking Status: Former smoker Tobacco Use: Non-smoker Alcohol: None Drugs: None Review of Systems - Review of Systems General: Denies: Fever, Night Sweats, Fatigue Cardiovascular: Reports: Chest Discomfort, Chest Discomfort at Rest, Shortness of Breath, Shortness of Breath at Rest, Peripheral Edema. Denies: Orthopnea, PND, Palpitations, Lightheadedness, Dizziness, Near Syncope, Syncope Respiratory: Reports: Shortness of Breath, Wheezing. Denies: Cough, Sputum Production, Hemoptysis Gastrointestinal: Denies: Hematemesis, Hematochezia, Melena Genitourinary: Denies: Dysuria, Hematuria Skin: Denies: Rash Subjectve: This is a 72-year-old obese white female who appears to be resting comfortably at the moment in no acute distress but noted to have audible wheezing. Objective: Vital Signs Temp Pulse Resp BP Pulse Ox 97.7 F L 89 20 H 149/56 H 96 07/03/18 13:13 07/03/18 13:18 07/03/18 13:13 07/03/18 13:13 07/03/18 13:13 Oxygen Flow Rate (L/min) 4 Oxygen Delivery Method Nasal Cannula Weight: 258 lb 13.163 oz Body Mass Index (BMI) 45.5 Finger Stick Blood Glucose 155 Intake and Output for Last 24 Hours 07/01/18 07/02/18 07/03/18 23:59 23:59 23:59 Intake Total 1614 / 1614 500 / 500 Output Total 1850 / 1850 575 / 575 Balance -236 / -236 -75 / -75 General: Awake, Alert, Oriented x 3, Cooperative, No Acute Distress, Obese HEENT: Atraumatic, Normocephalic, PERRL, EOMI, Sclera Non Icteric Oral: Moist Mucosa Neck: Supple, Good ROM, No JVD Lungs: Inspiratory Wheezes - Fabricio, Expiratory Wheezes-Fabricio Cardiovascular: Regular Rhythm, Normal S1, Normal S2 Vascular: No Carotid Bruits Abdomen: Bowel Sounds Present, Soft, Non Tender, Obese Extremities: Mild RLE Edema, Mild LLE Edema Neurological: No Focal Motor or Sensory Deficit Psych/Mental Status: Anxious 07/03/18 05:10: WBC 8.4, RBC 3.03 L, Hgb 8.5 L, Hct 26.1 L, MCV 86.1, MCH 28.1, MCHC 32.6, RDW 15.7 H, RDW Differential 50.2 H, Plt Count 348, MPV 9.7, Immature Gran % (Auto) 1.300 H, Neut % (Auto) 89.5 H, Lymph % (Auto) 5.6 L, [place] % (Auto) 3.3, Eos % (Auto) 0.2, Baso % (Auto) 0.1, Absolute Neuts (auto) 7.5, Total Counted Not Reportable 07/03/18 05:10: Sodium 136, Potassium 4.1, Chloride 100, Carbon Dioxide 26.0, Anion Gap 10, BUN 48 H, Creatinine 2.10 H, Est GFR (MDRD) Af Amer 30 L, Est GFR (MDRD) Non-Af 25 L, BUN/Creatinine Ratio 22.9 H, Glucose 211 H, Calcium 7.9 L, Iron 27 L, TIBC 261, Iron Saturation 10.3 L, Ferritin 74, Total Bilirubin 0.30 07/03/18 10:20: Troponin I < 0.015 07/03/18 12:50: Troponin I < 0.015 Rhythm: Sinus rhythm EKG: Sinus rhythm ECHO: 06-03-18 Technically difficult study Left ventricular systolic function considered normal with an estimated LVEF of 60% Decreased diastolic compliance Mild MR Mild to moderate TR Mild focal aortic valve calcification Estimated PA systolic pressure 44 mmHg Stress Test: 04-09-13 The patient underwent pharmacologic (regadenoson) evaluation with a peak heart rate of 96 beats per minute (62% predicted maximum heart rate) and a peak blood pressure of 124/70 mmHg. The baseline ECG demonstrated normal sinus rhythm. The peak pharmacologic ECG demonstrated no obvious ECG changes. There were no obvious cardiac dysrhythmias pretest, during pharmacologic infusion, or recovery. There was no report of chest discomfort during pharmacologic infusion or recovery. The examination was discontinued secondary to completion of protocol. IMPRESSION: 1. Pharmacologic (regadenoson) evaluation. 2. Peak pharmacologic ECG with no obvious ECG changes. 3. Nuclear images pending. MYOCARDIAL PERFUSION IMAGING STUDY: TECHNIQUE: The patient was injected with 12.0 mCi of Tc99m Cardiolite and subsequently rest SPECT Cardiolite nuclear imaging was obtained in the horizontal long, vertical long, and short axes views. The patient underwent pharmacologic (regadenoson) evaluation with a peak heart rate of 96 beats per minute (62% predicted maximum heart rate) with a peak blood pressure of 124/70 mmHg. The patient was injected with 34.1 mCi of Tc99m Cardiolite and subsequently stress SPECT Cardiolite nuclear imaging was obtained in the horizontal long, vertical long, and short axes views. A gated Cardiolite study at peak stress was obtained. INTERPRETATION: Rest and stress SPECT Cardiolite nuclear imaging demonstrate areas of extracardiac/hepatic and gastrointestinal tracer uptake near the inferior segments. There is notation of diminished tracer uptake in portions of the basal inferoseptal, basal inferior, and basal inferolateral segments extending towards the mid inferior segment. This maybe somewhat more prominent following stress as opposed to rest. There appears to be end systolic thickening and brightening. The gated Cardiolite study demonstrates myocardial thickening and inward wall motion. The reported LVEF is 67%. The aforementioned changes maybe compatible with the effects of shifting soft tissue attenuation/artifact as well as gastrointestinal tracer uptake/detraction, however an area of myocardial ischemia involving portions of the basal inferolateral segments extending toward the mid inferior segment cannot necessarily be excluded. IMPRESSION: 1. Rest and stress SPECT Cardiolite nuclear imaging demonstrate myocardial perfusion changes potentially compatible with the effects of shifting soft tissue attenuation/artifact as well as the effects of gastrointestinal tracer uptake/detraction, however, an area of myocardial ischemia in portions of the basal inferolateral extending toward the mid inferior segment cannot necessarily be excluded. 2. The gated Cardiolite study reports an LVEF of 67%. Cardiac Cath: 04-10-13 Left main coronary artery had distal 50% stenosis and calcification LAD had proximal 60% stenosis and calcification and subsequently followed by an 75% stenosis and subsequently giving left to left collateral flow to the LCx distribution The LCx was noted to have an ostial 99% stenosis The RCA was noted to have a proximal 60% stenosis followed by mid 60 to 70% stenosis The right PDA had an ostial 50 to 60% stenosis CT Surgery: 04-16-2013: [facility] NATHAN to the LAD; SVG to the diagonal branch; SVG to the LCx system; SVG to the PDA CXR: IMPRESSION: 1. No acute cardiopulmonary disease. No significant change. 2. Chronic elevation of the right hemidiaphragm. 3. Borderline cardiomegaly. Previous CABG. Assessment/Plan 1. CAD status post CABG The patient has undergone noninvasive and invasive evaluation as noted above. This subsequently led to her diagnosis and subsequent coronary artery revascularization therapy with CABG. The present time she did complain, amidst her COPD exacerbation and audible whe ezing, of some chest discomfort/pressure. Her cardiac enzymes, which have been repeated, have been negative. Her ECG, which was repeated, demonstrated no obvious ECG changes. At the present time it was felt reasonable the patient continue to be monitored and followed. She will continue medical management as deemed appropriate. This will include agents such as aspirin/antiplatelet therapy, nitrates as needed, beta blockers as tolerated as long as there is no issues with respect to her underlying cardiac dysrhythmia or conduction system disease, lipid-lowering agents, anticoagulant agents, etc. as deemed appropriate. The present time the patient does not appear to be ideal for further pharmacologic stress nuclear imaging study based upon her underlying acute COPD exacerbation. She is also not an ideal candidate this time for repeat invasive evaluation or care with diagnostic cardiac catheterization based on concerns of her recent acute renal insufficiency related issues. 2. Hyper lipidemia The patient will continue lipid-lowering therapy as deemed appropriate. 3. Hypertension The patient should continue medical management with adjustment of medications as deemed appropriate and tolerated. 4. Diabetes mellitus Patient will continue care per internal medicine. 5. COPD exacerbation Patient will continue evaluation care per internal medicine and pulmonology/critical care medicine. 6. Acute renal insufficiency The patient has recurrent acute on chronic renal insufficiency. She is being followed by nephrology. Again based upon her renal insufficiency concerns her be hesitancy in proceeding with additional diagnostic studies such as diagnostic cardiac catheterization based on concerns of IV contrast related nephropathy and worsening renal insufficiency. Comment: The above was discussed with the patient and her multiple family members present. The above was also discussed with Dr. Mart. This note was generated with in2appsation software. It may contain incorrect words, spelling, and punctuation that were not noted in checking the note before signing.
[2018-07-03] MEDS: 0.9% Normal Saline 1,000 ML 100 ML IV (15:57)
[2018-07-03 16:11] LABS: Bedside Glucose 312 mg/dL (70-110)
[2018-07-03] MEDS: Isosorbide Mononitrate 30 MG Tablet PO (17:31)
--- NOTE | 2018-07-03 19:32 | CPS ---
family states pt came off at 1710
[2018-07-03] MEDS: Atorvastatin Calcium 80 MG Tablet PO (22:06)
[2018-07-03] MEDS: Doxazosin 4 MG Tablet PO (22:06)
[2018-07-03] MEDS: Amitriptyline 100 MG Tablet PO (22:06)
[2018-07-03] MEDS: Pramipexole Di-HCl 0.125 MG Tablet PO (22:07)
[2018-07-03] MEDS: Gabapentin 600 MG Tablet PO (22:08)
[2018-07-03 22:31] LABS: Bedside Glucose 304 mg/dL (70-110)
[2018-07-04] VITALS (23 sets, daily range): BP systolic 144–162; BP diastolic 46–62; PULSE 82–100; RESP 10–18; TEMP 36.4–36.9; O2SAT 93–98
[2018-07-04] MEDS: Ipratropium/Albuterol Sulfate 3 ML AMPUL.NEB INHALATION ×6 (03:30→22:40)
[2018-07-04 06:04] LABS: Anion Gap 11 (5-15); BUN 55 mg/dL (7-18); BUN/Creat Ratio 24.1 RATIO (10-20); Chloride 101 mmol/L (98-107); Creatinine, Serum 2.28 mg/dL (0.55-1.02); EST Glomerular Filtration Rate 22 mL/min (>60); Est Glom Filt Rate - Afr Amer 27 mL/min (>60); Estimated Creatinine Clearance 18.72 ml/min; Glucose 123 mg/dL (74-106); Potassium 4.1 mmol/L (3.5-5.1); Sodium Level 137 mmol/L (136-145)
[2018-07-04 06:12] LABS: Hematocrit 25.5 % (37-47); Hemoglobin 7.9 g/dl (12.0-15.0); Mean Corpuscular Hgb 27.1 pg (27.0-32.0); Mean Corpuscular Volume 87.6 fL (81-99); Mean Platelet Vol. 9.8 fl (6.2-12.0); Platelet Count 406 K/mm3 (150-450); RBC Distribution Width CV 15.8 % (11.6-14.6); RBC Distribution Width SD 49.1 fl (35.1-43.9); Red Blood Count 2.91 M/mm3 (4.2-5.4); White Blood Count 10.8 K/mm3 (4.4-11.0)
[2018-07-04 06:15] LABS: Differential Indicated MANUAL DIFF; POSITIVE COUNT YES; POSITIVE DIFFERENTIAL NO; POSITIVE MORPHOLOGY YES
[2018-07-04 06:27] LABS: Lymphocyte 7 % (19-41); Metamyelocyte 1 % (0-1); Monocyte 4 % (0-10); Neutrophil-Band 1 % (0-5); Neutrophil-Segmented 87 % (47-70); Platelet Estimate ADEQUATE (ADEQ); Total Cells Counted 100 (MANUAL DIFF)
[2018-07-04 06:28] LABS: Absolute Lymphocyte Count 0.76 X10^3/ul (0.83-4.51); Absolute Neutrophil Count 9.5 X10^3/uL (2.0-7.7); Hypochromasia 3+; Lymphocyte # 0.76 X10^3/ul (4.0); Red Cell Morphology NORM C+C NORMAL (NORM C&C)
[2018-07-04] MEDS: Heparin Injection (Vial) 5,000 UNIT/ML VIAL 5000 UNIT SC ×3 (06:36→21:36)
[2018-07-04] MEDS: hydrALAZINE 50 MG Tablet 100 MG PO ×3 (06:37→21:33)
[2018-07-04 06:51] LABS: Bedside Glucose 133 mg/dL (70-110)
[2018-07-04] MEDS: amLODIPine 10 MG Tablet PO (09:11)
[2018-07-04] MEDS: Pantoprazole Sodium 40 MG Tablet PO (09:11)
[2018-07-04] MEDS: Aspirin E.C. 81 MG Tablet PO (09:11)
[2018-07-04] MEDS: Carvedilol 3.125 MG TABLET PO ×2 (09:11→21:35)
[2018-07-04] MEDS: Famotidine 20 MG Tablet PO ×2 (09:11→21:38)
[2018-07-04] MEDS: Isosorbide Mononitrate 30 MG Tablet PO (09:11)
[2018-07-04] MEDS: Gabapentin 300 MG Capsule PO (09:12)
[2018-07-04] MEDS: 0.9% NaCl Peripheral Flush Adult/Peds IV ×2 (09:18→21:40)
--- NOTE | 2018-07-04 09:42 | RAD_ITS ---
STUDY: X-RAY CHEST REASON FOR EXAM: Female, 72 years old. Shortness of breath/dyspnea. TECHNIQUE: AP and lateral views of the chest. COMPARISON: Comparison is made with prior study dated July 02, 2018. FINDINGS: EKG electrodes are seen. There is elevation of the right hemidiaphragm. This is unchanged. Stable mild increased linear markings at the lung bases. There is no demonstrated pleural abnormality. Sternal cerclage wires and vascular clips are present from a prior sternotomy and coronary artery bypass graft procedure (CABG). Normal mediastinum and james. Normal visualized pulmonary arteries. There is atherosclerotic calcification of the aortic arch with tortuosity. Normal visualized thoracic spine. Normal visualized ribs, clavicles, and shoulders. There is no demonstrated abnormality of the visualized soft tissue structures of the upper abdomen. RAD/Chest PA and Lateral IMPRESSION: Stable examination. No acute abnormality is seen. Electronically Signed: Peter Bahena, at 15:14 EDT , Service support ,
--- NOTE | 2018-07-04 09:48 | PCM.PN.PUL ---
Patient Problems: Active and Suspected Problems (Last Reviewed 06/28/18 @ 09:50 by TREVOR Hou) Acute respiratory failure with hypoxia (Acute) Subjective: Patient did well overnight. Patient reports subjective improvement this morning. No complications reported overnight. Patient does remain on 4 L nasal cannula oxygen. Patient was on BiPAP for short period of time. - Physical Exam General: Alert, Oriented x3, Cooperative, No apparent distress, - - Morbidly obese. Speaking in full sentences. HEENT: Atraumatic, PERRLA, EOMI, Normocephalic, - - Slight scleral injection without icterus Oral: Moist Mucosa, No Gingival or Mucosal Lesions/ Ulcerations Neck: Supple, No JVD, No Nodes, Trachea Midline Lungs: No rhonchi, No wheeze, Rales, - - Symmetric expansion. Cardiovascular: Regular rate, Regular Rhythm, Normal S1, Normal S2, No murmurs, No rub noted, No Gallop Abdomen: Bowel Sounds Present, Soft, Non Tender, Non-Distended, Obese Extremities: No clubbing, No cyanosis, Edema - No change in anasarca Skin: - - No significant change compared to previous Musculoskeletal: No Tenderness to Palpation of Joints or Extremities Lymphatic: No Cervical, Supraclavicular, or Inguinal Adenopathy Neurological: Cranial nerves II-XII grossly intact, Neuro grossly intact, Motor Exam 5/5 strength throughout Psych/Mental Status: Alert and oriented to time, place, person, mood and affect Vital Signs Temp Pulse Resp BP Pulse Ox 36.5 C L 100 18 162/59 H 96 07/04/18 09:00 07/04/18 09:00 07/04/18 09:00 07/04/18 09:00 07/04/18 09:37 Oxygen Flow Rate (L/min) 3 Oxygen Delivery Method Nasal Cannula Weight: 120.8 kg Body Mass Index (BMI) 45.5 Finger Stick Blood Glucose 155 Intake and Output for Last 24 Hours 07/02/18 07/03/18 07/04/18 23:59 23:59 23:59 Intake Total 1614 / 1614 1758 / 1758 223 / 223 Output Total 1850 / 1850 1075 / 1075 225 / 225 Balance -236 / -236 683 / 683 -2 / -2 Microbiology Past 72 Hours 07/02/18 15:40 Stool Occult Blood (SANJUANA) - Final Stool Laboratory Tests Past 24 Hrs 07/03/18 07/03/18 07/03/18 10:20 12:50 15:35 WBC RBC Hgb Hct MCV MCH MCHC RDW RDW Differential Plt Count MPV Neut % (Auto) Absolute Neuts (auto) Absolute Lymphs (auto) Total Counted Neutrophils % (Manual) Band Neutrophils % Lymphocytes % (Manual) Monocytes % (Manual) Metamyelocytes % Diff Path Review Platelet Estimate RBC Morphology Hypochromasia Sodium Potassium Chloride Carbon Dioxide Anion Gap BUN Creatinine Estim Creat Clear Calc Est GFR (MDRD) Af Amer Est GFR (MDRD) Non-Af BUN/Creatinine Ratio Glucose Calcium Troponin I < 0.015 < 0.015 < 0.015 07/04/18 07/04/18 05:20 05:20 WBC 10.8 RBC 2.91 L Hgb 7.9 L Hct 25.5 L MCV 87.6 MCH 27.1 MCHC 31.0 L RDW 15.8 H RDW Differential 49.1 H Plt Count 406 MPV 9.8 Neut % (Auto) Not Reportable Absolute Neuts (auto) 9.5 H Absolute Lymphs (auto) 0.76 L Total Counted 100 Neutrophils % (Manual) 87 H Band Neutrophils % 1 Lymphocytes % (Manual) 7 L Monocytes % (Manual) 4 Metamyelocytes % 1 Diff Path Review May foll Platelet Estimate ADEQUATE RBC Morphology NORM C+C Hypochromasia 3+ Sodium 137 Potassium 4.1 Chloride 101 Carbon Dioxide 25.0 Anion Gap 11 BUN 55 H Creatinine 2.28 H Estim Creat Clear Calc 18.72 Est GFR (MDRD) Af Amer 27 L Est GFR (MDRD) Non-Af 22 L BUN/Creatinine Ratio 24.1 H Glucose 123 H Calcium 8.0 L Troponin I POC Glucose 07/04/18 07/03/18 07/03/18 06:35 22:04 16:03 POC Glucose 133 H 304 H 312 H 07/03/18 11:40 POC Glucose 333 H Medical Necessity - Tobacco Use Smoking Status: Former smoker Tobacco Use: Non-smoker Assessment/Plan All Active Problems (Last Reviewed 06/28/18 @ 09:50 by Lia Meléndez, LISA-C) Acute respiratory failure with hypoxia (Acute) Respiratory failure with hypoxia (Acute) Acute exacerbation of chronic obstructive pulmonary disease (COPD) (Acute) Bronchospasm (Acute) Viral conjunctivitis (Acute) Allergic conjunctivitis (Acute) Chemosis of conjunctiva (Acute) Bradycardia (Acute) Hypotension (Acute) Decreased responsiveness (Acute) Acute hypoxic respiratory failure (Acute) Acute kidney injury (Acute) Prerenal azotemia (Resolved) RECOMMENDATIONS: 1. Consider diuretic therapy, defer to nephrology 2. Continue BiPAP rescue overnight 3. Wean oxygen as tolerated 4. No antibiotics or steroids indicated from my perspective 5. Aggressive blood sugar control IMPRESSIONS: 1. Acute hypoxic respiratory insufficiency secondary to probable acute on chronic diastolic congestive heart failure Patient with significant wheezing previously, but this appears to be improving. This is likely not to respond to beta agonists given etiology likely is excessive fluid. Patient may benefit from BiPAP therapy if there is difficulty overnight. High clinical suspicion for undiagnosed obstructive sleep apnea. Patient may develop polyuric phase of ATN and auto diuresis. Would defer to nephrology on diuretic therapy. ABG as indicated for decreased mental status 2. Acute on chronic diastolic congestive heart failure secondary to postobstructive uropathy with renal failure She appears to have an element of anasarca at this time. Patient's albumin is low leading to decreased oncotic pressure. Patient does have significant sub-dermal edema. Would defer to nephrology if patient will be worked up for nephrotic type syndromes. Patient may require active diuresis if respiratory status decompensates. 3. Acute kidney injury on chronic kidney disease stage III Suspicion for postobstructive uropathy secondary to urinary retention. Patient does appear to have some improvement with conservative therapy. Would hold off on any diuretic therapy for now, but this may be helpful if patient were to develop hypoxemia requiring BiPAP rescue. 4. Poorly controlled hypertension Nephrology is currently following. Some medications are contraindicated given patient's renal function. We will continue to monitor closely. Patient is not showing any signs of endorgan damage except for renal dysfunction. 5. Morbid obesity/probable COPD/diabetes mellitus type 2/GERD/anxiety/hyperlipidemia/coronary artery disease Complicates care, management, recovery and prognosis. Do not believe patient is having acute exacerbation of COPD, so no steroids or antibiotics are indicated. But sugars are significantly elevated and patient may benefit from basal insulin. Code Visit Inpatient E&M: [id number] Subs Hosp L2
--- NOTE | 2018-07-04 09:52 | PCM.PN.REN ---
Patient Problems: Active and Suspected Problems (Last Reviewed 06/28/18 @ 09:50 by TREVOR Hou) Acute respiratory failure with hypoxia (Acute) Subjective: Pt is feeling better today Breathing is stable at 3 l/min No nausea no vomiting. No chest pain today - Physical Exam General: Alert, Oriented x3 HEENT: Atraumatic Oral: Moist Mucosa Neck: Supple, No JVD Lungs: Clear to auscultation, Normal air movement, No rhonchi, No wheeze Cardiovascular: Regular rate, Regular Rhythm, Normal S1, Normal S2 Abdomen: Bowel Sounds Present, Soft, Non Tender, Non-Distended Extremities: Edema - +1 edema of LE Skin: No rashes Musculoskeletal: No Tenderness to Palpation of Joints or Extremities Lymphatic: No Cervical, Supraclavicular, or Inguinal Adenopathy Neurological: Cranial nerves II-XII grossly intact, Neuro grossly intact Psych/Mental Status: Appropriate Vital Signs Temp Pulse Resp BP Pulse Ox 97.7 F L 100 18 162/59 H 96 07/04/18 09:00 07/04/18 09:00 07/04/18 09:00 07/04/18 09:00 07/04/18 09:37 Oxygen Flow Rate (L/min) 3 Oxygen Delivery Method Nasal Cannula Weight: 120.8 kg Body Mass Index (BMI) 45.5 Finger Stick Blood Glucose 155 Intake and Output for Last 24 Hours 07/02/18 07/03/18 07/04/18 23:59 23:59 23:59 Intake Total 1614 / 1614 1758 / 1758 223 / 223 Output Total 1850 / 1850 1075 / 1075 225 / 225 Balance -236 / -236 683 / 683 -2 / -2 Microbiology Past 72 Hours 07/02/18 15:40 Stool Occult Blood (SANJUANA) - Final Stool Laboratory Tests Past 24 Hrs 07/03/18 07/03/18 07/03/18 10:20 12:50 15:35 WBC RBC Hgb Hct MCV MCH MCHC RDW RDW Differential Plt Count MPV Neut % (Auto) Absolute Neuts (auto) Absolute Lymphs (auto) Total Counted Neutrophils % (Manual) Band Neutrophils % Lymphocytes % (Manual) Monocytes % (Manual) Metamyelocytes % Diff Path Review Platelet Estimate RBC Morphology Hypochromasia Sodium Potassium Chloride Carbon Dioxide Anion Gap BUN Creatinine Estim Creat Clear Calc Est GFR (MDRD) Af Amer Est GFR (MDRD) Non-Af BUN/Creatinine Ratio Glucose Calcium Troponin I < 0.015 < 0.015 < 0.015 07/04/18 07/04/18 05:20 05:20 WBC 10.8 RBC 2.91 L Hgb 7.9 L Hct 25.5 L MCV 87.6 MCH 27.1 MCHC 31.0 L RDW 15.8 H RDW Differential 49.1 H Plt Count 406 MPV 9.8 Neut % (Auto) Not Reportable Absolute Neuts (auto) 9.5 H Absolute Lymphs (auto) 0.76 L Total Counted 100 Neutrophils % (Manual) 87 H Band Neutrophils % 1 Lymphocytes % (Manual) 7 L Monocytes % (Manual) 4 Metamyelocytes % 1 Diff Path Review May foll Platelet Estimate ADEQUATE RBC Morphology NORM C+C Hypochromasia 3+ Sodium 137 Potassium 4.1 Chloride 101 Carbon Dioxide 25.0 Anion Gap 11 BUN 55 H Creatinine 2.28 H Estim Creat Clear Calc 18.72 Est GFR (MDRD) Af Amer 27 L Est GFR (MDRD) Non-Af 22 L BUN/Creatinine Ratio 24.1 H Glucose 123 H Calcium 8.0 L Troponin I POC Glucose 07/04/18 07/03/18 07/03/18 06:35 22:04 16:03 POC Glucose 133 H 304 H 312 H 07/03/18 11:40 POC Glucose 333 H Medical Necessity - Tobacco Use Smoking Status: Former smoker Tobacco Use: Non-smoker Assessment/Plan All Active Problems (Last Reviewed 06/28/18 @ 09:50 by Lia Meléndez, LISA-C) Acute respiratory failure with hypoxia (Acute) Respiratory failure with hypoxia (Acute) Acute exacerbation of chronic obstructive pulmonary disease (COPD) (Acute) Bronchospasm (Acute) Viral conjunctivitis (Acute) Allergic conjunctivitis (Acute) Chemosis of conjunctiva (Acute) Bradycardia (Acute) Hypotension (Acute) Decreased responsiveness (Acute) Acute hypoxic respiratory failure (Acute) Acute kidney injury (Acute) Prerenal azotemia (Resolved) 1-Acute kidney injury on chronic kidney disease stage III. Baseline creatinine 1.2 mg deciliter patient presented with a creatinine 2.6 mg/dL. UA was benign yesterday except for 15 mg/dL protein in the urine. No RBCs no white cell. Kidney function initially improved with holding hydrochlorthiazide and losartan and giving a liter of fluid. Acute kidney injury is most probably from prerenal. I doubt other KURT etiologies IVF was held yesterday concerning for CHF exacerbation Cr increased slightly today from 2.1->2.28 mg/dL. UOP decreased to ~ 1 L I will order chest xray. if No CHF finding, please start IVF NS at 100 cc /hour for 1L Please continue holding diuretics NICOLAS inhibitor, and ARB. No need for renal placement therapy. Keep mean arterial pressure more than 65. please dose medications for the current GFR. Check renal function panel in a.m. 2-hypertension remains uncontrolled but slightly better. Patient is now taking hydrochlorothiazide, amlodipine. doxazosin and Coreg. Might increase the dose of doxazosin to 8 mg PO daily Please avoid diuretics and NICOLAS/ARB. We will continue to monitor blood pressure. 3-leg edema : related to medications ( vasodilator ) and hypoalbuminemia.Doubt it is related to nephrotic syndrome because UA showed only 15 mg/dL protein. Keeps the legs raised .I recommend compressive stockings 4-COPD exacerbation. I will defer management to the hospitalist team 5- CP: EKG and cardiac enzymes are negative. Cardiology service is following Thank you for the consult. Renal team will continue to follow. Plan of care was discussed with the patient, patient's family and with Dr. Mart Please call with any question at my cell: [phone]
[2018-07-04] MEDS: 0.9% Normal Saline 1,000 ML 100 ML IV (10:49)
[2018-07-04 11:31] LABS: Bedside Glucose 121 mg/dL (70-110)
[2018-07-04 13:12] LABS: Urine Sodium 10 mmol/L (Not Establ.)
[2018-07-04 13:17] LABS: Urea Nitrogen, Urine 414 mg/dL (NO RANGE EST.)
[2018-07-04 14:20] LABS: BNP,B-Type NATRIURETIC PEPTIDE 182.2 pg/mL (0-100)
[2018-07-04 14:40] LABS: Pathologist Review Reviewed
--- NOTE | 2018-07-04 15:05 | PCM.PN.HOSP ---
Patient Problems: Active and Suspected Problems (Last Reviewed 06/28/18 @ 09:50 by TREVOR Hou) Acute respiratory failure with hypoxia (Acute) Objective: Physical exam: General: Alert, Oriented x3, Cooperative, no wheezes HEENT: Atraumatic, PERRLA, EOMI, Normocephalic Oral: Moist Mucosa Neck: Supple, Negative Carotid Bruits Lungs: Diminished, Vesicular BS, no added sounds Cardiovascular: Regular rate, Regular Rhythm, Normal S1, Normal S2, No murmurs Abdomen: Bowel Sounds Present, Soft, Non Tender, Non-Distended, No Hepato-splenomegaly Extremities: Edema - Bipedal nontender edema +1-2 Skin: No rashes Musculoskeletal: No Tenderness to Palpation of Joints or Extremities Lymphatic: No Cervical, Supraclavicular, or Inguinal Adenopathy Neurological: Cranial nerves II-XII grossly intact Psych/Mental Status: Normal Affect, Appropriate Vitals/I&O's: Vital Signs Temp Pulse Resp BP Pulse Ox 97.6 F L 82 18 144/46 H 96 07/04/18 14:18 07/04/18 14:24 07/04/18 14:18 07/04/18 14:18 07/04/18 14:18 Oxygen Flow Rate (L/min) 2 Oxygen Delivery Method Nasal Cannula Weight: 120.8 kg Body Mass Index (BMI) 45.5 Finger Stick Blood Glucose 155 Intake and Output for Last 24 Hours 07/02/18 07/03/18 07/04/18 23:59 23:59 23:59 Intake Total 1614 / 1614 1758 / 1758 823 / 823 Output Total 1850 / 1850 1075 / 1075 725 / 725 Balance -236 / -236 683 / 683 98 / 98 Microbiology Past 72 Hours 07/02/18 15:40 Stool Stool Occult Blood (SANJUANA) - Final Laboratory Results 07/03/18 15:35: Troponin I < 0.015 07/03/18 16:03: POC Glucose 312 H 07/03/18 22:04: POC Glucose 304 H 07/04/18 05:20: WBC 10.8, RBC 2.91 L, Hgb 7.9 L, Hct 25.5 L, MCV 87.6, MCH 27.1, MCHC 31.0 L, RDW 15.8 H, RDW Differential 49.1 H, Plt Count 406, MPV 9.8, Neut % (Auto) Not Reportable, Absolute Neuts (auto) 9.5 H, Absolute Lymphs (auto) 0.76 L, Total Counted 100, Neutrophils % (Manual) 87 H, Band Neutrophils % 1, Lymphocytes % (Manual) 7 L, Monocytes % (Manual) 4, Metamyelocytes % 1, Diff Path Review Reviewed, Platelet Estimate ADEQUATE, RBC Morphology NORM C+C, Hypochromasia 3+ 07/04/18 05:20: Sodium 137, Potassium 4.1, Chloride 101, Carbon Dioxide 25.0, Anion Gap 11, BUN 55 H, Creatinine 2.28 H, Estim Creat Clear Calc 18.72, Est GFR (MDRD) Af Amer 27 L, Est GFR (MDRD) Non-Af 22 L, BUN/Creatinine Ratio 24.1 H, Glucose 123 H, Calcium 8.0 L 07/04/18 05:20: B-Natriuretic Peptide 182.2 H 07/04/18 06:35: POC Glucose 133 H 07/04/18 10:47: POC Glucose 121 H 07/04/18 12:50: Urine Creatinine 63.40 07/04/18 12:50: Urine Urea Nitrogen 414 07/04/18 12:50: Ur Random Sodium 10 Current Medications Acetaminophen (Tylenol) 650 mg PO Q6H PRN PRN PRN Reason: Mild Pain (1-3)/Temp > 100.7 F Last Admin: 07/03/18 01:09 Dose: 650 mg Albuterol Sulfate (Ventolin Aerosols) 2.5 mg INHALATION Q2H PRN PRN PRN Reason: Shortness of Breath/Wheezing Last Admin: 07/03/18 13:37 Dose: 2.5 mg Albuterol/Ipratropium (Duoneb) 3 ml INHALATION Q4H.RT [facility] Last Admin: 07/04/18 11:18 Dose: 3 ml Amitriptyline HCl (Elavil) 100 mg PO QHS [facility] Last Admin: 07/03/18 22:06 Dose: 100 mg Amlodipine Besylate (Norvasc) 10 mg PO DAILY [facility] Last Admin: 07/04/18 09:11 Dose: 10 [facility] Last Admin: 05/02/19 09:11 Dose: 81 mg Atorvastatin Calcium (Lipitor) 80 mg PO HS [facility] Last Admin: 07/03/18 22:06 Dose: 80 mg Carvedilol (Coreg) 3.125 mg PO BID [facility] Last Admin: 07/04/18 09:11 Dose: 3.125 mg Dextrose (D50w Syringe) 0 gm IV X1 PRN; Protocol PRN Reason: Hypoglycemia Doxazosin Mesylate (Cardura) 8 mg PO QHS [facility] Famotidine (Pepcid) 20 mg PO BID [facility] Last Admin: 07/04/18 09:11 Dose: 20 mg Gabapentin (Neurontin) 300 mg PO DAILYCM [facility] Last Admin: 07/04/18 09:12 Dose: 300 mg Gabapentin (Neurontin) 600 mg PO HS [facility] Last Admin: 07/03/18 22:08 Dose: 600 mg Glucagon () 1 mg IM .X1 PRN PRN Reason: Hypoglycemia Heparin Sodium (Porcine) (Heparin Na) 5,000 unit SC Q8 [facility] Last Admin: 07/04/18 14:24 Dose: 5,000 unit Hydralazine HCl (Apresoline) 100 mg PO TID [facility] Last Admin: 07/04/18 14:24 Dose: 100 mg Iron Sucrose 200 mg/ Sodium (Chloride) 110 mls @ 220 mls/hr IV DAILY [facility] Stop: 07/07/18 10:29 Last Admin: 07/04/18 09:17 Dose: 220 mls/hr Sodium Chloride () 1,000 mls @ 100 mls/hr IV .Q10H [facility] Stop: 07/04/18 22:00 Last Admin: 07/04/18 10:49 Dose: 100 mls/hr Insulin Human Lispro (Humalog Kwikpen (Bkc)) 0 unit SQ ACHS [facility]; Protocol Last Admin: 07/04/18 10:48 Dose: Not Given Isosorbide Mononitrate (Imdur) 30 mg PO DAILY [facility] Last Admin: 07/04/18 09:11 Dose: 30 mg Nitroglycerin (Nitrostat) 0.4 mg SUBLINGUAL Q5M PRN PRN Reason: CARDIAC/CHEST PAIN Last Admin: 07/03/18 10:25 Dose: 0.4 mg Ondansetron HCl (Zofran) 4 mg IV Q8H PRN PRN PRN Reason: NAUSEA/VOMITING Pantoprazole Sodium (Protonix) 40 mg PO DAILY [facility] Last Admin: 07/04/18 09:11 Dose: 40 mg Pramipexole Dihydrochloride (Mirapex) 0.125 mg PO QHS [facility] Last Admin: 07/03/18 22:07 Dose: 0.125 mg Sodium Chloride () 5 - 15 ml IV UD PRN PRN Reason: SALINE FLUSH Last Admin: 07/04/18 09:18 Dose: 10 ml Throat Lozenges (Cepacol Sore Throat Lozenge) 1 lozenge MUCOUS MEM Q2H PRN PRN PRN Reason: Sore throat or cough Medical Necessity - Tobacco Use Smoking Status: Former smoker Tobacco Use: Non-smoker Assessment/Plan All Active Problems (Last Reviewed 06/28/18 @ 09:50 by Lia Meléndez NP-C) Acute respiratory failure with hypoxia (Acute) Respiratory failure with hypoxia (Acute) Acute exacerbation of chronic obstructive pulmonary disease (COPD) (Acute) Bronchospasm (Acute) Viral conjunctivitis (Acute) Allergic conjunctivitis (Acute) Chemosis of conjunctiva (Acute) Bradycardia (Acute) Hypotension (Acute) Decreased responsiveness (Acute) Acute hypoxic respiratory failure (Acute) Acute kidney injury (Acute) Prerenal azotemia (Resolved) 72 year old F with multiple comorbidities including COPD not on home oxygen, recently discharged after a complicated hospital course in which patient was found to be minimally responsive soon after admission and managed in the ICU, intubated, bradycardic, on IV dopamine, transvenous pacemaker. Patient subsequently was extubated, managed on the nursing flow and eventually discharged home with home health. She comes in with progressive shortness of breath and anuria. 1. Chest pain,non-cardiac, continue with aspirin, statins, beta-cha 2. Acute hypoxic respiratory failure secondary to acute COPD exacerbation, admitting SPO2 was 77%, improving, will continue with incentive spirometer 3. Acute COPD exacerbation, remains the same, no infiltrates on chest x-ray Of steroids per pulmonology, continue to monitor, encourage incentive spirometer 4. KURT on CKD stage 3, unclear etiology, creatinine slightly worse her baseline creatinine is around 1.2, slighly improved, Hydrochlorothiazide and losartan on hold, nephrology consulted Continue on IV fluids, Repeat blood work in a.m. 5. Hypertension, fairly controlled, will continue on home medications 6. Type II DM, blood sugars are better controlled now, secondary to steroids, will continue to hold home metformin, continue with med-high dose insulin sliding scale with Accu-Cheks 7. Morbid obesity, BMI 45.5, diet and exercises recommended 8. DVT prophylaxis with heparin subcu Code Visit Inpatient E&M: 48941 Subs Hosp L2
--- NOTE | 2018-07-04 15:10 | PN_ITS ---
Patient Problems: Active and Suspected Problems (Last Reviewed 06/28/18 @ 09:50 by TREVOR Hou) Acute respiratory failure with hypoxia (Acute) Objective: Physical exam: General: Alert, Oriented x3, Cooperative, no wheezes HEENT: Atraumatic, PERRLA, EOMI, Normocephalic Oral: Moist Mucosa Neck: Supple, Negative Carotid Bruits Lungs: Diminished, Vesicular BS, no added sounds Cardiovascular: Regular rate, Regular Rhythm, Normal S1, Normal S2, No murmurs Abdomen: Bowel Sounds Present, Soft, Non Tender, Non-Distended, No Hepato- splenomegaly Extremities: Edema - Bipedal nontender edema +1-2 Skin: No rashes Musculoskeletal: No Tenderness to Palpation of Joints or Extremities Lymphatic: No Cervical, Supraclavicular, or Inguinal Adenopathy Neurological: Cranial nerves II-XII grossly intact Psych/Mental Status: Normal Affect, Appropriate Vitals/I&O's: Vital Signs Temp Pulse Resp BP Pulse Ox 97.6 F L 82 18 144/46 H 96 07/04/18 14:18 07/04/18 14:24 07/04/18 14:18 07/04/18 14:18 07/04/18 14:18 Oxygen Flow Rate (L/min) 2 Oxygen Delivery Method Nasal Cannula Weight: 120.8 kg Body Mass Index (BMI) 45.5 Finger Stick Blood Glucose 155 Intake and Output for Last 24 Hours 07/02/18 07/03/18 07/04/18 23:59 23:59 23:59 Intake Total 1614 / 1614 1758 / 1758 823 / 823 Output Total 1850 / 1850 1075 / 1075 725 / 725 Balance -236 / -236 683 / 683 98 / 98 Microbiology Past 72 Hours 07/02/18 15:40 Stool Stool Occult Blood (SANJUANA) - Final Laboratory Results 07/03/18 15:35: Troponin I < 0.015 07/03/18 16:03: POC Glucose 312 H 07/03/18 22:04: POC Glucose 304 H 07/04/18 05:20: WBC 10.8, RBC 2.91 L, Hgb 7.9 L, Hct 25.5 L, MCV 87.6, MCH 27.1, MCHC 31.0 L, RDW 15.8 H, RDW Differential 49.1 H, Plt Count 406, MPV 9.8, Neut % (Auto) Not Reportable, Absolute Neuts (auto) 9.5 H, Absolute Lymphs (auto) 0.76 L, Total Counted 100, Neutrophils % (Manual) 87 H, Band Neutrophils % 1, Lymphocytes % (Manual) 7 L, Monocytes % (Manual) 4, Metamyelocytes % 1, Diff Path Review Reviewed, Platelet Estimate ADEQUATE, RBC Morphology NORM C+C, Hypochromasia 3+ 07/04/18 05:20: Sodium 137, Potassium 4.1, Chloride 101, Carbon Dioxide 25.0, Anion Gap 11, BUN 55 H, Creatinine 2.28 H, Estim Creat Clear Calc 18.72, Est GFR (MDRD) Af Amer 27 L, Est GFR (MDRD) Non-Af 22 L, BUN/Creatinine Ratio 24.1 H, Glucose 123 H, Calcium 8.0 L 07/04/18 05:20: B-Natriuretic Peptide 182.2 H 07/04/18 06:35: POC Glucose 133 H 07/04/18 10:47: POC Glucose 121 H 07/04/18 12:50: Urine Creatinine 63.40 07/04/18 12:50: Urine Urea Nitrogen 414 07/04/18 12:50: Ur Random Sodium 10 Current Medications Acetaminophen (Tylenol) 650 mg PO Q6H PRN PRN PRN Reason: Mild Pain (1-3)/Temp > 100.7 F Last Admin: 07/03/18 01:09 Dose: 650 mg Albuterol Sulfate (Ventolin Aerosols) 2.5 mg INHALATION Q2H PRN PRN PRN Reason: Shortness of Breath/Wheezing Last Admin: 07/03/18 13:37 Dose: 2.5 mg Albuterol/Ipratropium (Duoneb) 3 ml INHALATION Q4H.RT [facility] Last Admin: 07/04/18 11:18 Dose: 3 ml Amitriptyline HCl (Elavil) 100 mg PO QHS [facility] Last Admin: 07/03/18 22:06 Dose: 100 mg Amlodipine Besylate (Norvasc) 10 mg PO DAILY [facility] Last Admin: 07/04/18 09:11 Dose: 10 mg [facility] ([facility]) [facility] Last Admin: 05/02/19 09:11 Dose: 81 mg Atorvastatin Calcium (Lipitor) 80 mg PO HS [facility] Last Admin: 07/03/18 22:06 Dose: 80 mg Carvedilol (Coreg) 3.125 mg PO BID [facility] Last Admin: 07/04/18 09:11 Dose: 3.125 mg Dextrose (D50w Syringe) 0 gm IV X1 PRN; Protocol PRN Reason: Hypoglycemia Doxazosin Mesylate (Cardura) 8 mg PO QHS [facility] Famotidine (Pepcid) 20 mg PO BID [facility] Last Admin: 07/04/18 09:11 Dose: 20 mg Gabapentin (Neurontin) 300 mg PO DAILYCM [facility] Last Admin: 07/04/18 09:12 Dose: 300 mg Gabapentin (Neurontin) 600 mg PO HS [facility] Last Admin: 07/03/18 22:08 Dose: 600 mg Glucagon () 1 mg IM .X1 PRN PRN Reason: Hypoglycemia Heparin Sodium (Porcine) (Heparin Na) 5,000 unit SC Q8 [facility] Last Admin: 07/04/18 14:24 Dose: 5,000 unit Hydralazine HCl (Apresoline) 100 mg PO TID [facility] Last Admin: 07/04/18 14:24 Dose: 100 mg Iron Sucrose 200 mg/ Sodium (Chloride) 110 mls @ 220 mls/hr IV DAILY [facility] Stop: 07/07/18 10:29 Last Admin: 07/04/18 09:17 Dose: 220 mls/hr Sodium Chloride () 1,000 mls @ 100 mls/hr IV .Q10H [facility] Stop: 07/04/18 22:00 Last Admin: 07/04/18 10:49 Dose: 100 mls/hr Insulin Human Lispro (Humalog Kwikpen (Bkc)) 0 unit SQ ACHS [facility]; Protocol Last Admin: 07/04/18 10:48 Dose: Not Given Isosorbide Mononitrate (Imdur) 30 mg PO DAILY [facility] Last Admin: 07/04/18 09:11 Dose: 30 mg Nitroglycerin (Nitrostat) 0.4 mg SUBLINGUAL Q5M PRN PRN Reason: CARDIAC/CHEST PAIN Last Admin: 07/03/18 10:25 Dose: 0.4 mg Ondansetron HCl (Zofran) 4 mg IV Q8H PRN PRN PRN Reason: NAUSEA/VOMITING Pantoprazole Sodium (Protonix) 40 mg PO DAILY [facility] Last Admin: 07/04/18 09:11 Dose: 40 mg Pramipexole Dihydrochloride (Mirapex) 0.125 mg PO QHS [facility] Last Admin: 07/03/18 22:07 Dose: 0.125 mg Sodium Chloride () 5 - 15 ml IV UD PRN PRN Reason: SALINE FLUSH Last Admin: 07/04/18 09:18 Dose: 10 ml Throat Lozenges (Cepacol Sore Throat Lozenge) 1 lozenge MUCOUS MEM Q2H PRN PRN PRN Reason: Sore throat or cough Medical Necessity - Tobacco Use Smoking Status: Former smoker Tobacco Use: Non-smoker Assessment/Plan All Active Problems (Last Reviewed 06/28/18 @ 09:50 by Lia Meléndez NP-C) Acute respiratory failure with hypoxia (Acute) Respiratory failure with hypoxia (Acute) Acute exacerbation of chronic obstructive pulmonary disease (COPD) (Acute) Bronchospasm (Acute) Viral conjunctivitis (Acute) Allergic conjunctivitis (Acute) Chemosis of conjunctiva (Acute) Bradycardia (Acute) Hypotension (Acute) Decreased responsiveness (Acute) Acute hypoxic respiratory failure (Acute) Acute kidney injury (Acute) Prerenal azotemia (Resolved) 72 year old F with multiple comorbidities including COPD not on home oxygen, recently discharged after a complicated hospital course in which patient was found to be minimally responsive soon after admission and managed in the ICU, intubated, bradycardic, on IV dopamine, transvenous pacemaker. Patient subsequently was extubated, managed on the nursing flow and eventually discharged home with home health. She comes in with progressive shortness of breath and anuria. 1. Chest pain,non-cardiac, continue with aspirin, statins, beta-cha 2. Acute hypoxic respiratory failure secondary to acute COPD exacerbation, adm itting SPO2 was 77%, improving, will continue with incentive spirometer 3. Acute COPD exacerbation, remains the same, no infiltrates on chest x-ray Of steroids per pulmonology, continue to monitor, encourage incentive spirometer 4. KURT on CKD stage 3, unclear etiology, creatinine slightly worse her baseline creatinine is around 1.2, slighly improved, Hydrochlorothiazide and losartan on hold, nephrology consulted Continue on IV fluids, Repeat blood work in a.m. 5. Hypertension, fairly controlled, will continue on home medications 6. Type II DM, blood sugars are better controlled now, secondary to steroids, will continue to hold home metformin, continue with med-high dose insulin sliding scale with Accu-Cheks 7. Morbid obesity, BMI 45.5, diet and exercises recommended 8. DVT prophylaxis with heparin subcu Code Visit Inpatient E&M: 18555 Subs Hosp L2
[2018-07-04] MEDS: Insulin Lispro 100 UNIT/ML INSULN.PEN SQ ×2 (16:27→21:36)
[2018-07-04 16:41] LABS: Bedside Glucose 214 mg/dL (70-110)
--- NOTE | 2018-07-04 18:04 | PN.CARD_ITS ---
Subjectve: The patient was evaluated earlier this day. She stated she was feeling better with respect to her breathing. She had less audible wheezing than the day before. Objective: Vital Signs Temp Pulse Resp BP Pulse Ox 97.6 F L 83 16 144/46 H 96 07/04/18 14:18 07/04/18 15:11 07/04/18 15:11 07/04/18 14:18 07/04/18 14:18 Oxygen Flow Rate (L/min) 2 Oxygen Delivery Method Nasal Cannula Weight: 266 lb 5.094 oz Body Mass Index (BMI) 45.5 Finger Stick Blood Glucose 155 Intake and Output for Last 24 Hours 07/02/18 07/03/18 07/04/18 23:59 23:59 23:59 Intake Total 1614 / 1614 1758 / 1758 823 / 823 Output Total 1850 / 1850 1075 / 1075 725 / 725 Balance -236 / -236 683 / 683 98 / 98 General: Awake, Alert, Oriented x 3, Cooperative, No Acute Distress, Obese HEENT: Atraumatic, Normocephalic, PERRL, EOMI, Sclera Non Icteric Oral: Moist Mucosa Neck: Supple, Good ROM, No JVD Lungs: Inspiratory Wheezes - Fabricio, Expiratory Wheezes-Fabricio, - - Less prominent than yesterday Cardiovascular: Regular Rhythm, Normal S1, Normal S2 Abdomen: Bowel Sounds Present, Soft, Non Tender Extremities: Trace RLE Edema, Trace LLE Edema Psych/Mental Status: Appropriate 07/04/18 05:20: WBC 10.8, RBC 2.91 L, Hgb 7.9 L, Hct 25.5 L, MCV 87.6, MCH 27.1, MCHC 31.0 L, RDW 15.8 H, RDW Differential 49.1 H, Plt Count 406, MPV 9.8, Neut % (Auto) Not Reportable, Absolute Neuts (auto) 9.5 H, Total Counted 100, Neutrophils % (Manual) 87 H, Band Neutrophils % 1, Lymphocytes % (Manual) 7 L, Monocytes % (Manual) 4, Metamyelocytes % 1 07/04/18 05:20: Sodium 137, Potassium 4.1, Chloride 101, Carbon Dioxide 25.0, Anion Gap 11, BUN 55 H, Creatinine 2.28 H, Est GFR (MDRD) Af Amer 27 L, Est GFR (MDRD) Non-Af 22 L, BUN/Creatinine Ratio 24.1 H, Glucose 123 H, Calcium 8.0 L 07/04/18 05:20: B-Natriuretic Peptide 182.2 H Rhythm: Sinus rhythm Medical Necessity - Tobacco Use Smoking Status: Former smoker Tobacco Use: Non-smoker Assessment/Plan 1. CAD status post CABG The patient has undergone noninvasive and invasive evaluation as noted above. This subsequently led to her diagnosis and subsequent coronary artery revascularization therapy with CABG. The present time she did complain, amidst her COPD exacerbation and audible wheezing, of some chest discomfort/pressure. Her cardiac enzymes, which have been repeated, have been negative. Her ECG, which was repeated, demonstrated no obvious ECG changes. At the present time it was felt reasonable the patient continue to be monitored and followed. She will continue medical management as deemed appropriate. The present time the patient does not appear to be ideal for further pharmacologic stress nuclear imaging study based upon her underlying acute COPD exacerbation. She is also not an ideal candidate this time for repeat invasive evaluation or care with diagnostic cardiac catheterization based on concerns of her recent acute renal insufficiency related issues. 2. Hyperlipidemia The patient will continue lipid-lowering therapy as deemed appropriate. 3. Hypertension The patient should continue medical management with adjustment of medications as deemed appropriate and tolerated. 4. Diabetes mellitus Patient will continue care per internal medicine. 5. COPD exacerbation Patient will continue evaluation care per internal medicine and pulmonology/critical care medicine. 6. Acute renal insufficiency The patient has recurrent acute on chronic renal insufficiency. She is being followed by nephrology. Comment: The above was discussed with the patient and her multiple family members present and Dr. Hughes. This note was generated with [employer] dictation software. It may contain incorrect words, spelling, and punctuation that were not noted in checking the note before signing.
--- NOTE | 2018-07-04 18:08 | NURSING ---
Kimble removed d/t c/o discomfort all day despite draining; 1-2 clots noted over course of the day. Pt reports immediate relief of discomfort following removal of catheter. Will monitor for void.
[2018-07-04] MEDS: Doxazosin 4 MG Tablet 8 MG PO (21:35)
[2018-07-04] MEDS: Amitriptyline 100 MG Tablet PO (21:36)
[2018-07-04] MEDS: Pramipexole Di-HCl 0.125 MG Tablet PO (21:37)
[2018-07-04] MEDS: Atorvastatin Calcium 80 MG Tablet PO (21:37)
[2018-07-04] MEDS: Gabapentin 600 MG Tablet PO (21:38)
[2018-07-04 23:40] LABS: Bedside Glucose 200 mg/dL (70-110)
[2018-07-05] VITALS (33 sets, daily range): BP systolic 127–171; BP diastolic 51–99; PULSE 80–102; RESP 12–24; TEMP 36.3–37.1; O2SAT 90–98
[2018-07-05] MEDS: Ipratropium/Albuterol Sulfate 3 ML AMPUL.NEB INHALATION ×4 (02:00→14:25)
[2018-07-05 06:54] LABS: Hematocrit 24.3 % (37-47); Hemoglobin 7.5 g/dl (12.0-15.0); Mean Corp Hgb Conc 30.9 g/gl (32-36); Mean Corpuscular Hgb 27.7 pg (27.0-32.0); Mean Corpuscular Volume 89.7 fL (81-99); Mean Platelet Vol. 9.2 fl (6.2-12.0); Platelet Count 404 K/mm3 (150-450); RBC Distribution Width CV 15.9 % (11.6-14.6); RBC Distribution Width SD 50.5 fl (35.1-43.9); Red Blood Count 2.71 M/mm3 (4.2-5.4); White Blood Count 10.6 K/mm3 (4.4-11.0)
[2018-07-05 06:57] LABS: Differential Indicated MANUAL DIFF; POSITIVE COUNT YES; POSITIVE DIFFERENTIAL NO; POSITIVE MORPHOLOGY YES
[2018-07-05] MEDS: hydrALAZINE 50 MG Tablet 100 MG PO ×3 (07:05→21:26)
[2018-07-05] MEDS: Heparin Injection (Vial) 5,000 UNIT/ML VIAL 5000 UNIT SC (07:06)
[2018-07-05 07:11] LABS: Eosinophil 4 % (0-5); Lymphocyte 8 % (19-41); Metamyelocyte 2 % (0-1); Monocyte 5 % (0-10); Myelocyte 1 (0-0); Neutrophil-Segmented 80 % (47-70); Total Cells Counted 100 (MANUAL DIFF)
[2018-07-05 07:12] LABS: Platelet Estimate SLT INC (ADEQ); Red Cell Morphology NORM C+C NORMAL (NORM C&C)
[2018-07-05 07:13] LABS: Absolute Lymphocyte Count 0.85 X10^3/ul (0.83-4.51); Absolute Neutrophil Count 8.5 X10^3/uL (2.0-7.7); Lymphocyte # 0.85 X10^3/ul (4.0); Neutrophil # 8.48 X10^3/uL (2.7-7.7)
[2018-07-05 07:15] LABS: Bedside Glucose 125 mg/dL (70-110)
[2018-07-05 07:16] LABS: Anion Gap 8 (5-15); BUN 56 mg/dL (7-18); BUN/Creat Ratio 24.7 RATIO (10-20); Calcium,Total 7.8 mg/dL (8.5-10.1); Chloride 103 mmol/L (98-107); Creatinine, Serum 2.27 mg/dL (0.55-1.02); EST Glomerular Filtration Rate 23 mL/min (>60); Est Glom Filt Rate - Afr Amer 27 mL/min (>60); Glucose 134 mg/dL (74-106); Phosphorus 3.5 mg/dL (2.5-4.9); Potassium 4.1 mmol/L (3.5-5.1); Sodium Level 138 mmol/L (136-145)
[2018-07-05] MEDS: Gabapentin 300 MG Capsule PO (08:59)
[2018-07-05] MEDS: Aspirin E.C. 81 MG Tablet PO (08:59)
[2018-07-05] MEDS: Pantoprazole Sodium 40 MG Tablet PO (09:00)
[2018-07-05] MEDS: Carvedilol 3.125 MG TABLET PO ×2 (09:00→21:27)
[2018-07-05] MEDS: amLODIPine 10 MG Tablet PO (09:00)
[2018-07-05] MEDS: Isosorbide Mononitrate 30 MG Tablet PO (09:00)
--- NOTE | 2018-07-05 09:05 | CASEMGMT ---
SW spoke with patient and her family. Introduced self and role at [facility]. SW asked patient if she was still planning on returning home at discharge or if she felt she needed a SNF for short term rehab. Patient said she is going home. SW told her if she changes her mind to ask for SW. She said she won't change her mind. Family said patient has home health currently. Plan: Home with family with resumption of home health. Josie GREENWOOD MSW
--- NOTE | 2018-07-05 09:12 | PCM.PN.CARD ---
Subjectve: The patient was reported as sleeping well last night. She appeared to be somewhat difficult to arouse this morning. She appeared to have difficulty with questions such as place and time. She was noted to be visibly twitching all over. She was audibly wheezing. She did not appear to voice any acute complaints such as tach chest discomfort or worsening shortness of breath. Objective: Vital Signs Temp Pulse Resp BP Pulse Ox 97.4 F L 84 20 H 152/67 H 94 07/05/18 03:19 07/05/18 07:17 07/05/18 07:17 07/05/18 07:05 07/05/18 07:17 Oxygen Flow Rate (L/min) 4 Oxygen Delivery Method Nasal Cannula Weight: 272 lb 0.807 oz Body Mass Index (BMI) 45.5 Finger Stick Blood Glucose 155 Intake and Output for Last 24 Hours 07/03/18 07/04/18 07/05/18 23:59 23:59 23:59 Intake Total 1758 / 1758 823 / 823 1226 / 1226 Output Total 1075 / 1075 975 / 975 200 / 200 Balance 683 / 683 -152 / -152 1026 / 1026 General: Lethargic, Disoriented HEENT: Atraumatic, Normocephalic Neck: No JVD Lungs: Inspiratory Wheezes - Fabricio, Expiratory Wheezes-Fabricio Cardiovascular: Regular Rhythm, Normal S1, Normal S2 Abdomen: Bowel Sounds Present, Soft, Non Tender Extremities: Mild RLE Edema, Mild LLE Edema Psych/Mental Status: Restless 07/04/18 05:20: B-Natriuretic Peptide 182.2 H 07/05/18 06:30: WBC 10.6, RBC 2.71 L, Hgb 7.5 L, Hct 24.3 L, MCV 89.7, MCH 27.7, MCHC 30.9 L, RDW 15.9 H, RDW Differential 50.5 H, Plt Count 404, MPV 9.2, Neut % (Auto) Not Reportable, Absolute Neuts (auto) 8.5 H, Total Counted 100, Neutrophils % (Manual) 80 H, Lymphocytes % (Manual) 8 L, Monocytes % (Manual) 5, Eosinophils % (Manual) 4, Metamyelocytes % 2 H, Myelocytes % 1 H 07/05/18 06:30: Sodium 138, Potassium 4.1, Chloride 103, Carbon Dioxide 27.0, Anion Gap 8, BUN 56 H, Creatinine 2.27 H, Est GFR (MDRD) Af Amer 27 L, Est GFR (MDRD) Non-Af 23 L, BUN/Creatinine Ratio 24.7 H, Glucose 134 H, Calcium 7.8 L, Phosphorus 3.5, Magnesium 2.0 Rhythm: Sinus rhythm Medical Necessity - Tobacco Use Smoking Status: Former smoker Tobacco Use: Non-smoker Assessment/Plan 1. CAD status post CABG The patient has undergone noninvasive and invasive evaluation as noted above. This subsequently led to her diagnosis and subsequent coronary artery revascularization therapy with CABG. From a cardiac standpoint there is been no further symptoms of chest discomfort. There is been no abnormal cardiac enzymes. Her ECG demonstrated no acute changes. She has been treated medically with a combination of aspirin, nitrates, beta-blockers, and statins. She has not required any additional noninvasive or invasive studies at this time. 2. Hyperlipidemia The patient will continue lipid-lowering therapy as deemed appropriate. 3. Hypertension The patient should continue medical management with adjustment of medications as deemed appropriate and tolerated. 4. Diabetes mellitus Patient will continue care per internal medicine. 5. COPD exacerbation Patient will continue evaluation care per internal medicine and pulmonology/critical care medicine. 6. Acute renal insufficiency The patient has recurrent acute on chronic renal insufficiency. She is being followed by nephrology. 7. Anemia Her H&H remains low. This may be multifactorial in etiology. However may not be unreasonable to consider PRBCs for her to increase her oxygen carrying capacity especially in light of her cardiovascular condition. 8. Mental status changes It is unclear with respect to her mental status changes at this morning has to an exact etiology. This concern was communicated to the [facility] hospitalist staff. She may need further evaluation with additional diagnostic studies such as repeat ABGs and or an ammonia level. Comment: The above was discussed with the patient and her multiple family members present there and a message was sent to Dr. Mart regarding the above. This note was generated with [employer] software. It may contain incorrect words, spelling, and punctuation that were not noted in checking the note before signing.
[2018-07-05] MEDS: Famotidine 20 MG Tablet PO (09:19)
[2018-07-05 09:46] LABS: Allen Test POS; Base Excess -1 mmol/L (-2 to +2); Bicarbonate 25.2 mmol/L (22-26); Blood Gas Specimen Type ART; O2 Delivery Device Nasal Can; PO2 60 mmHG (75-100); SITE R Radial; SO2 89 % (95-99); Time Given 938; Total Carbon Dioxide 27 mmol/L; pCO2 47.6 mmHg (35-45); pH 7.33 (7.35-7.45)
--- NOTE | 2018-07-05 09:58 | RAD_ITS ---
STUDY: X-RAY CHEST REASON FOR EXAM: Female, 72 years old. Short of breath. Acute respiratory failure. COPD exacerbation. TECHNIQUE: Single portable frontal chest. COMPARISON: 2 views of the chest obtained July 04, 2018. FINDINGS: There is mild increased elevation of the right hemidiaphragm. Adjacent to the mid and medial aspect of the right hemidiaphragm is a focus of next interstitial and alveolar opacification. This appears new. There is no evident pleural effusion or pneumothorax. Sternal cerclage wires and vascular clips are present from a prior sternotomy and coronary artery bypass graft procedure (CABG). There is no demonstrated mediastinal lymphadenopathy or mediastinal mass lesion. Normal visualized pulmonary arteries. There is atherosclerotic calcification of the aortic arch with tortuosity. There is mild diffuse demineralization without evident acute osseous abnormality. There is no demonstrated abnormality of the visualized soft tissue structures of the upper abdomen. RAD/Chest 1 View (Portable) IMPRESSION: New, right medial lung base/right infrahilar consolidation may represent pneumonia. The right hemithorax volume loss manifested by increased elevation of the right hemidiaphragm suggests that this consolidation may contain at least some component of atelectasis. No pneumothorax. Stable cardiomediastinal still silhouette status post CABG. Electronically Signed: Dean Hernadez MD at 10:46 EDT , Service support ,
--- NOTE | 2018-07-05 10:08 | PCM.PN.REN ---
Patient Problems: Active and Suspected Problems (Last Reviewed 06/28/18 @ 09:50 by Lia Meléndez NP-Katja) Acute respiratory failure with hypoxia (Acute) Subjective: Pt was confused this morning but better now On NC at 4 l/m No nausea no vomiting - Physical Exam General: Alert, Cooperative, No apparent distress HEENT: Atraumatic Oral: Moist Mucosa Neck: Supple, No JVD Lungs: Wheezes, - - fine crackles at the end of insipatory phase Cardiovascular: Regular rate, Regular Rhythm, Normal S1, Normal S2 Abdomen: Bowel Sounds Present, Non Tender, Non-Distended Extremities: No clubbing, No cyanosis, Edema - +1 edema Musculoskeletal: No Muscle Wasting Neurological: Cranial nerves II-XII grossly intact, Neuro grossly intact Psych/Mental Status: Appropriate Vital Signs Temp Pulse Resp BP Pulse Ox 98.4 F 89 18 154/78 H 90 07/05/18 09:15 07/05/18 09:15 07/05/18 09:15 07/05/18 09:15 07/05/18 09:35 Oxygen Flow Rate (L/min) 4.5 Oxygen Delivery Method Nasal Cannula Weight: 123.4 kg Body Mass Index (BMI) 45.5 Finger Stick Blood Glucose 155 Intake and Output for Last 24 Hours 07/03/18 07/04/18 07/05/18 23:59 23:59 23:59 Intake Total 1758 / 1758 823 / 823 1226 / 1226 Output Total 1075 / 1075 975 / 975 200 / 200 Balance 683 / 683 -152 / -152 1026 / 1026 Microbiology Past 72 Hours 07/02/18 15:40 Stool Occult Blood (SANJUANA) - Final Stool Laboratory Tests Past 24 Hrs 07/04/18 07/04/18 07/04/18 05:20 05:20 12:50 WBC RBC Hgb Hct MCV MCH MCHC RDW RDW Differential Plt Count MPV Neut % (Auto) Absolute Neuts (auto) Absolute Lymphs (auto) Total Counted Neutrophils % (Manual) Lymphocytes % (Manual) Monocytes % (Manual) Eosinophils % (Manual) Metamyelocytes % Myelocytes % Diff Path Review Reviewed Platelet Estimate RBC Morphology Specimen Type Sample Site pH Bicarbonate Actual POC Total CO2 Base Excess O2 Saturation ABG pCO2 ABG pO2 Abram Test O2 Delivery Device Liter Flow Blood Gas Notified Whom Blood Gas Notified Time Sodium Potassium Chloride Carbon Dioxide Anion Gap BUN Creatinine Estim Creat Clear Calc Est GFR (MDRD) Af Amer Est GFR (MDRD) Non-Af BUN/Creatinine Ratio Glucose Calcium Phosphorus Magnesium Ammonia B-Natriuretic Peptide 182.2 H Ur Random Sodium Urine Creatinine 63.40 Urine Urea Nitrogen Blood Type Antibody Screen Crossmatch 07/04/18 07/04/18 07/05/18 12:50 12:50 06:30 WBC 10.6 RBC 2.71 L Hgb 7.5 L Hct 24.3 L MCV 89.7 MCH 27.7 MCHC 30.9 L RDW 15.9 H RDW Differential 50.5 H Plt Count 404 MPV 9.2 Neut % (Auto) Not Reportable Absolute Neuts (auto) 8.5 H Absolute Lymphs (auto) 0.85 Total Counted 100 Neutrophils % (Manual) 80 H Lymphocytes % (Manual) 8 L Monocytes % (Manual) 5 Eosinophils % (Manual) 4 Metamyelocytes % 2 H Myelocytes % 1 H Diff Path Review May foll Platelet Estimate SLT INC RBC Morphology NORM C+C Specimen Type Sample Site pH Bicarbonate Actual POC Total CO2 Base Excess O2 Saturation ABG pCO2 ABG pO2 Abram Test O2 Delivery Device Liter Flow Blood Gas Notified Whom Blood Gas Notified Time Sodium Potassium Chloride Carbon Dioxide Anion Gap BUN Creatinine Estim Creat Clear Calc Est GFR (MDRD) Af Amer Est GFR (MDRD) Non-Af BUN/Creatinine Ratio Glucose Calcium Phosphorus Magnesium Ammonia B-Natriuretic Peptide Ur Random Sodium 10 Urine Creatinine Urine Urea Nitrogen 414 Blood Type Antibody Screen Crossmatch 07/05/18 07/05/18 07/05/18 06:30 09:20 09:20 WBC RBC Hgb Hct MCV MCH MCHC RDW RDW Differential Plt Count MPV Neut % (Auto) Absolute Neuts (auto) Absolute Lymphs (auto) Total Counted Neutrophils % (Manual) Lymphocytes % (Manual) Monocytes % (Manual) Eosinophils % (Manual) Metamyelocytes % Myelocytes % Diff Path Review Platelet Estimate RBC Morphology Specimen Type Sample Site pH Bicarbonate Actual POC Total CO2 Base Excess O2 Saturation ABG pCO2 ABG pO2 Abram Test O2 Delivery Device Liter Flow Blood Gas Notified Whom Blood Gas Notified Time Sodium 138 Potassium 4.1 Chloride 103 Carbon Dioxide 27.0 Anion Gap 8 BUN 56 H Creatinine 2.27 H Estim Creat Clear Calc 18.80 Est GFR (MDRD) Af Amer 27 L Est GFR (MDRD) Non-Af 23 L BUN/Creatinine Ratio 24.7 H Glucose 134 H Calcium 7.8 L Phosphorus 3.5 Magnesium 2.0 Ammonia Pending B-Natriuretic Peptide Ur Random Sodium Urine Creatinine Urine Urea Nitrogen Blood Type Pending Antibody Screen Pending Crossmatch See Detail 07/05/18 09:38 WBC RBC Hgb Hct MCV MCH MCHC RDW RDW Differential Plt Count MPV Neut % (Auto) Absolute Neuts (auto) Absolute Lymphs (auto) Total Counted Neutrophils % (Manual) Lymphocytes % (Manual) Monocytes % (Manual) Eosinophils % (Manual) Metamyelocytes % Myelocytes % Diff Path Review Platelet Estimate RBC Morphology Specimen Type ART Sample Site R Radial pH 7.33 L Bicarbonate Actual 25.2 POC Total CO2 27 Base Excess -1 O2 Saturation 89 L ABG pCO2 47.6 H ABG pO2 60 L Abram Test POS O2 Delivery Device Nasal Can Liter Flow 4.0 Blood Gas Notified Whom RN Blood Gas Notified Time 938 Sodium Potassium Chloride Carbon Dioxide Anion Gap BUN Creatinine Estim Creat Clear Calc Est GFR (MDRD) Af Amer Est GFR (MDRD) Non-Af BUN/Creatinine Ratio Glucose Calcium Phosphorus Magnesium Ammonia B-Natriuretic Peptide Ur Random Sodium Urine Creatinine Urine Urea Nitrogen Blood Type Antibody Screen Crossmatch POC Glucose 07/05/18 07/04/18 07/04/18 07:02 21:24 16:24 POC Glucose 125 H 200 H 214 H 07/04/18 10:47 POC Glucose 121 H Medical Necessity - Tobacco Use Smoking Status: Former smoker Tobacco Use: Non-smoker Assessment/Plan All Active Problems (Last Reviewed 06/28/18 @ 09:50 by Lia Meléndez NP-C) Acute respiratory failure with hypoxia (Acute) Respiratory failure with hypoxia (Acute) Acute exacerbation of chronic obstructive pulmonary disease (COPD) (Acute) Bronchospasm (Acute) Viral conjunctivitis (Acute) Allergic conjunctivitis (Acute) Chemosis of conjunctiva (Acute) Bradycardia (Acute) Hypotension (Acute) Decreased responsiveness (Acute) Acute hypoxic respiratory failure (Acute) Acute kidney injury (Acute) Prerenal azotemia (Resolved) 1-Acute kidney injury on chronic kidney disease stage III. Baseline creatinine 1.2 mg deciliter patient presented with a creatinine 2.6 mg/dL. UA was benign yesterday except for 15 mg/dL protein in the urine. No RBCs no white cell. Kidney function initially improved with holding hydrochlorthiazide and losartan and giving IV fluid. Acute kidney injury is most probably from prerenal. FeNa is 0.3 %. Pt received another IV liter of NS. Cr remained stable at 2.2 mg/dL Please follow chest xray from today. If no volume overload, please give another liter of IVF. If chest xray shows congestion, please give lasix 60 mg IV discussed the case with Dr. Clarke and the plan to do right side heart catheterization Please continue holding NICOLAS inhibitor, and ARB. No need for renal placement therapy. Keep mean arterial pressure more than 65. please dose medications for the current GFR. Check renal function panel in a.m. 2-hypertension Improved Patient is now taking hydrochlorothiazide, amlodipine. doxazosin and Coreg. Please avoid diuretics and NICOLAS/ARB. We will continue to monitor blood pressure. 3-leg edema : related to medications ( vasodilator ) and hypoalbuminemia.Doubt it is related to nephrotic syndrome because UA showed only 15 mg/dL protein. Keeps the legs raised .I recommend compressive stockings 4-COPD exacerbation. I will defer management to the hospitalist team 5- CP: EKG and cardiac enzymes are negative. Cardiology service is following Renal team will continue to follow. Plan of care was discussed with the patient, patient's family, Dr. Clarke and with Dr. Mart Please call with any question at my cell: [phone]
--- NOTE | 2018-07-05 10:10 | CASEMGMT ---
RANDY MONTALVO NOTE: Noted pt currently on 4.5 L/M O2. Pt does not have Home O2. To room to talk with pt and family. Per daughter, pt is confused this AM. Discussed possibility that pt may need home O2 on discharge. Daughter states no preference of [employer] for Home O2 if she qualifies. Pt will need Home O2 testing /walking test completed prior to discharge. Green sheet placed on chart for Oxygen if pt qualifies. Green sheet also instructions for resumption of HHC if pt discharges over the weekend. Amanuel KATZ RN CM
--- NOTE | 2018-07-05 12:02 | CPS ---
Took BIPAP to [employer] for use during cath so pt will be able to lay flat. gave RN my phone # if they have questions or concerns. left BIPAP on, just needs mask to be placed on pt.
[2018-07-05 12:56] LABS: Blood Gas Specimen Type VEN; VBG BASE EXCESS -2 mmol/L (-1.0-3.5); VBG Bicarbonate 25 mmol/L (22-26); VBG Oxygen Content 27 mmol/L (23-33); VBG PO2 35 mmHg (25-40); VBG SO2 57 % (50-70); VBG pCO2 54.4 mmHg (41-51); VBG pH 7.27 (7.32-7.42)
[2018-07-05 12:56] LABS: Blood Gas Specimen Type VEN; VBG BASE EXCESS -2 mmol/L (-1.0-3.5); VBG Bicarbonate 25 mmol/L (22-26); VBG Oxygen Content 27 mmol/L (23-33); VBG PO2 34 mmHg (25-40); VBG SO2 56 % (50-70); VBG pCO2 55.2 mmHg (41-51); VBG pH 7.27 (7.32-7.42)
[2018-07-05 12:56] LABS: Blood Gas Specimen Type VEN; VBG BASE EXCESS -2 mmol/L (-1.0-3.5); VBG Bicarbonate 25 mmol/L (22-26); VBG Oxygen Content 27 mmol/L (23-33); VBG PO2 31 mmHg (25-40); VBG SO2 51 % (50-70); VBG pCO2 54.5 mmHg (41-51); VBG pH 7.27 (7.32-7.42)
[2018-07-05 12:56] LABS: Blood Gas Specimen Type VEN; VBG BASE EXCESS -2 mmol/L (-1.0-3.5); VBG Bicarbonate 25 mmol/L (22-26); VBG Oxygen Content 27 mmol/L (23-33); VBG PO2 34 mmHg (25-40); VBG SO2 56 % (50-70); VBG pCO2 53.3 mmHg (41-51); VBG pH 7.28 (7.32-7.42)
[2018-07-05 12:56] LABS: Blood Gas Specimen Type VEN; VBG BASE EXCESS -2 mmol/L (-1.0-3.5); VBG Bicarbonate 25 mmol/L (22-26); VBG Oxygen Content 27 mmol/L (23-33); VBG PO2 32 mmHg (25-40); VBG SO2 52 % (50-70); VBG pCO2 54.1 mmHg (41-51); VBG pH 7.28 (7.32-7.42)
[2018-07-05 12:56] LABS: Base Excess -2 mmol/L (-2 to +2); Bicarbonate 24.2 mmol/L (22-26); Blood Gas Specimen Type ART; PO2 71 mmHG (75-100); SO2 92 % (95-99); Total Carbon Dioxide 26 mmol/L; pCO2 50.6 mmHg (35-45); pH 7.29 (7.35-7.45)
[2018-07-05 12:56] LABS: Blood Gas Specimen Type VEN; VBG BASE EXCESS -3 mmol/L (-1.0-3.5); VBG Bicarbonate 24 mmol/L (22-26); VBG Oxygen Content 26 mmol/L (23-33); VBG PO2 39 mmHg (25-40); VBG SO2 64 % (50-70); VBG pCO2 52.7 mmHg (41-51); VBG pH 7.27 (7.32-7.42)
--- NOTE | 2018-07-05 12:58 | CL.D_ITS ---
Patient Name: JULISSA VEGA Study Date: 07/05/2018 Performing: Alex Clarke MD Ht: 62.99 inches 160 cm : 1945 Wt: 273.37 lbs 124 kg Age: 72 Gender: female BSA: 2.21 PROCEDURE(S) PERFORMED [id number] ONLY CLINICAL PROFILE AND INDICATIONS Indications: Shortness of Breath Heart Failure: None Stress/Imaging Stress/Image Study Performed: No Angina Classification Anginal Classification w/in 2 Weeks: No symptoms CAD Presentations: Other: Shortness of Breath CONCLUSIONS Right heart pressures - moderately to severely elevated The patient has pulmonary hypertension which is moderate to severely elevated. Intracardiac shunting: None Calculated Qp/Qs: 0.8 (non hemodynamically significant) RECOMMENDATIONS Risk factor modification Medical therapy DESCRIPTION OF PROCEDURE The patient arrived to the procedure lab. The risks and benefits of the procedure as well as a full d escription of our services here and current unavailability of surgical backup were fully explained to the patient and/or their significant other prior to the catheterization. The Timeout was completed, verifying the correct patient and procedure. The patient's procedural site was prepped and draped in the usual fashion. Local anesthetic was given subcutaneously to right groin region with Lidocaine 2%. Using a modified Seldinger technique, Venous access was obtained via the right femoral vein, a 7Fr sheath was inserted. A 7Fr thermal dilution catheter was inserted and right heart pressures were leyla rded, it was then advanced to PA position for cardiac outputs. O2 saturations were then obtained. The rmal dilution cardiac outputs were then recorded. The Thermal dilution catheter was then removed.The venous sheath was then pulled and manual compression applied until hemostasis achieved CORONARY ANGIOGRAPHY RIGHT HEART ASSESSMENT Thermal CO: 6.91 Thermal CI: 3.13 Dedrick CO: 8 Dedrick CI: 3.62 PW: 36/36 31 PA: 63/31 41 RV: 61/18 24 RA: PVR: 116 Right Heart pressures - elevated Pulmonary Hypertension Moderate to Severe Intracardiac shunting: None Calculated Qp/Qs: 0.8 (non hemodynamically significant) COMPLICATIONS No Complications PROCEDURE MEDICATIONS Oxygen: 30 % FiO2 via ventilator (BiPAP). See Resp Record for Settings SUMMARY OF HEMODYNAMIC DATA Time AIR REST ECG 12:09:50 RA (23) SV 12:23:42 RV 61/18, 24 12:24:05 PW 36/36 (31) PV 12:24:51 PW 33/40 (31) 12:25:40 PA 63/31 (41) PA 12:29:29 Type SV CO (l/m) CI (l/m/ HR Time AIR REST Thermal 82.30 6.91 3.13 84 12:09:50 Dedrick 95.20 8.00 3.62 84 12:09:50 Label % O2 Pres/Loc Time AIR REST AO 92 PV 12:49:39 PA 56 PA 12:49:43 SVC 64 12:49:52 IVC 56 SV 12:49:56 Signed By Alex Clarke MD On 07/05/2018 12:57:25 PM Alex Clarke MD
--- NOTE | 2018-07-05 13:10 | PN_ITS ---
Patient Problems: Active and Suspected Problems (Last Reviewed 06/28/18 @ 09:50 by TREVOR Hou) Acute respiratory failure with hypoxia (Acute) Subjective: Patient was evaluated multiple times throughout the morning. Patient was severely confused this morning on BiPAP therapy with myoclonic type jerking. Patient improved as the day went on, but remained confused. No pain was reported. Patient has been stable on nasal cannula oxygen. Patient denies any abdominal pain, nausea or vomiting Objective: Right heart cath just completed shows moderately severe pulmonary hypertension with a PA pressure of 63 and an elevated wedge at 31. - Physical Exam General: Alert, Confused, Disoriented, - - Morbidly obese. Speaking in full sentences. HEENT: Atraumatic, PERRLA, EOMI, Normocephalic, - - Slight scleral injection. Oral: Moist Mucosa, No Gingival or Mucosal Lesions/ Ulcerations Neck: Supple, No Nodes, Trachea Midline, JVD, Right Lungs: No rhonchi, No wheeze, No rales, Diminished, - - Symmetric expansion. Cardiovascular: Regular rate, Regular Rhythm, Normal S1, Normal S2, No murmurs, No rub noted, No Gallop Abdomen: Bowel Sounds Present, Soft, Non Tender, Non-Distended, Obese Extremities: No clubbing, No cyanosis, Edema Skin: - - No significant change compared to previous Musculoskeletal: No Tenderness to Palpation of Joints or Extremities Lymphatic: No Cervical, Supraclavicular, or Inguinal Adenopathy Neurological: Cranial nerves II-XII grossly intact, Neuro grossly intact, Motor Exam 5/5 strength throughout Psych/Mental Status: Anxious, Impulsive, Restless Vital Signs Temp Pulse Resp BP Pulse Ox 36.7 C 98 18 146/67 H 96 07/05/18 11:49 07/05/18 11:49 07/05/18 11:49 07/05/18 11:49 07/05/18 11:49 Oxygen Flow Rate (L/min) 4 Oxygen Delivery Method Nasal Cannula Weight: 123.68 kg Body Mass Index (BMI) 45.5 Finger Stick Blood Glucose 155 Intake and Output for Last 24 Hours 07/03/18 07/04/18 07/05/18 23:59 23:59 23:59 Intake Total 1758 / 1758 823 / 823 1226 / 1226 Output Total 1075 / 1075 975 / 975 200 / 200 Balance 683 / 683 -152 / -152 1026 / 1026 Microbiology Past 72 Hours 07/02/18 15:40 Stool Occult Blood (SANJUANA) - Final Stool Laboratory Tests Past 24 Hrs 07/04/18 07/04/18 07/04/18 05:20 05:20 12:50 WBC RBC Hgb Hct MCV MCH MCHC RDW RDW Differential Plt Count MPV Neut % (Auto) Absolute Neuts (auto) Absolute Lymphs (auto) Total Counted Neutrophils % (Manual) Lymphocytes % (Manual) Monocytes % (Manual) Eosinophils % (Manual) Metamyelocytes % Myelocytes % Diff Path Review Reviewed Platelet Estimate RBC Morphology Specimen Type Sample Site pH Bicarbonate Actual POC Total CO2 Base Excess O2 Saturation ABG pCO2 ABG pO2 Abram Test VBG pH VBG pO2 VBG O2 Sat (Calc) VBG O2 Content VBG Base Excess POC Mix VBG pCO2 Pt Tmp O2 Delivery Device Liter Flow Blood Gas Notified Whom Blood Gas Notified Time Sodium Potassium Chloride Carbon Dioxide Anion Gap BUN Creatinine Estim Creat Clear Calc Est GFR (MDRD) Af Amer Est GFR (MDRD) Non-Af BUN/Creatinine Ratio Glucose Calcium Phosphorus Magnesium Ammonia B-Natriuretic Peptide 182.2 H Ur Random Sodium Urine Creatinine 63.40 Urine Urea Nitrogen Blood Type Antibody Screen Crossmatch 07/04/18 07/04/18 07/05/18 12:50 12:50 06:30 WBC 10.6 RBC 2.71 L Hgb 7.5 L Hct 24.3 L MCV 89.7 MCH 27.7 MCHC 30.9 L RDW 15.9 H RDW Differential 50.5 H Plt Count 404 MPV 9.2 Neut % (Auto) Not Reportable Absolute Neuts (auto) 8.5 H Absolute Lymphs (auto) 0.85 Total Counted 100 Neutrophils % (Manual) 80 H Lymphocytes % (Manual) 8 L Monocytes % (Manual) 5 Eosinophils % (Manual) 4 Metamyelocytes % 2 H Myelocytes % 1 H Diff Path Review May foll Platelet Estimate SLT INC RBC Morphology NORM C+C Specimen Type Sample Site pH Bicarbonate Actual POC Total CO2 Base Excess O2 Saturation ABG pCO2 ABG pO2 Abram Test VBG pH VBG pO2 VBG O2 Sat (Calc) VBG O2 Content VBG Base Excess POC Mix VBG pCO2 Pt Tmp O2 Delivery Device Liter Flow Blood Gas Notified Whom Blood Gas Notified Time Sodium Potassium Chloride Carbon Dioxide Anion Gap BUN Creatinine Estim Creat Clear Calc Est GFR (MDRD) Af Amer Est GFR (MDRD) Non-Af BUN/Creatinine Ratio Glucose Calcium Phosphorus Magnesium Ammonia B-Natriuretic Peptide Ur Random Sodium 10 Urine Creatinine Urine Urea Nitrogen 414 Blood Type Antibody Screen Crossmatch 07/05/18 07/05/18 07/05/18 06:30 09:20 09:20 WBC RBC Hgb Hct MCV MCH MCHC RDW RDW Differential Plt Count MPV Neut % (Auto) Absolute Neuts (auto) Absolute Lymphs (auto) Total Counted Neutrophils % (Manual) Lymphocytes % (Manual) Monocytes % (Manual) Eosinophils % (Manual) Metamyelocytes % Myelocytes % Diff Path Review Platelet Estimate RBC Morphology Specimen Type Sample Site pH Bicarbonate Actual POC Total CO2 Base Excess O2 Saturation ABG pCO2 ABG pO2 Abram Test VBG pH VBG pO2 VBG O2 Sat (Calc) VBG O2 Content VBG Base Excess POC Mix VBG pCO2 Pt Tmp O2 Delivery Device Liter Flow Blood Gas Notified Whom Blood Gas Notified Time Sodium 138 Potassium 4.1 Chloride 103 Carbon Dioxide 27.0 Anion Gap 8 BUN 56 H Creatinine 2.27 H Estim Creat Clear Calc 18.80 Est GFR (MDRD) Af Amer 27 L Est GFR (MDRD) Non-Af 23 L BUN/Creatinine Ratio 24.7 H Glucose 134 H Calcium 7.8 L Phosphorus 3.5 Magnesium 2.0 Ammonia 23.0 B-Natriuretic Peptide Ur Random Sodium Urine Creatinine Urine Urea Nitrogen Blood Type A NEGATIVE Antibody Screen NEGATIVE Crossmatch See Detail 07/05/18 07/05/18 07/05/18 09:38 12:23 12:26 WBC RBC Hgb Hct MCV MCH MCHC RDW RDW Differential Plt Count MPV Neut % (Auto) Absolute Neuts (auto) Absolute Lymphs (auto) Total Counted Neutrophils % (Manual) Lymphocytes % (Manual) Monocytes % (Manual) Eosinophils % (Manual) Metamyelocytes % Myelocytes % Diff Path Review Platelet Estimate RBC Morphology Specimen Type ART MARY MARY Sample Site R Radial pH 7.33 L Bicarbonate Actual 25.2 POC Total CO2 27 Base Excess -1 O2 Saturation 89 L ABG pCO2 47.6 H ABG pO2 60 L Abram Test POS VBG pH 7.27 L 7.27 L VBG pO2 31 35 VBG O2 Sat (Calc) 51 57 VBG O2 Content 27 27 VBG Base Excess -2 L -2 L POC Mix VBG pCO2 Pt Tmp 54.5 H 54.4 H O2 Delivery Device Nasal Can Liter Flow 4.0 Blood Gas Notified Whom RN Blood Gas Notified Time 938 Sodium Potassium Chloride Carbon Dioxide Anion Gap BUN Creatinine Estim Creat Clear Calc Est GFR (MDRD) Af Amer Est GFR (MDRD) Non-Af BUN/Creatinine Ratio Glucose Calcium Phosphorus Magnesium Ammonia B-Natriuretic Peptide Ur Random Sodium Urine Creatinine Urine Urea Nitrogen Blood Type Antibody Screen Crossmatch 07/05/18 07/05/18 07/05/18 12:30 12:33 12:36 WBC RBC Hgb Hct MCV MCH MCHC RDW RDW Differential Plt Count MPV Neut % (Auto) Absolute Neuts (auto) Absolute Lymphs (auto) Total Counted Neutrophils % (Manual) Lymphocytes % (Manual) Monocytes % (Manual) Eosinophils % (Manual) Metamyelocytes % Myelocytes % Diff Path Review Platelet Estimate RBC Morphology Specimen Type MARY ART MARY Sample Site pH 7.29 L Bicarbonate Actual 24.2 POC Total CO2 26 Base Excess -2 O2 Saturation 92 L ABG pCO2 50.6 H ABG pO2 71 L Abram Test VBG pH 7.28 L 7.28 L VBG pO2 32 34 VBG O2 Sat (Calc) 52 56 VBG O2 Content 27 27 VBG Base Excess -2 L -2 L POC Mix VBG pCO2 Pt Tmp 54.1 H 53.3 H O2 Delivery Device Liter Flow Blood Gas Notified Whom Blood Gas Notified Time Sodium Potassium Chloride Carbon Dioxide Anion Gap BUN Creatinine Estim Creat Clear Calc Est GFR (MDRD) Af Amer Est GFR (MDRD) Non-Af BUN/Creatinine Ratio Glucose Calcium Phosphorus Magnesium Ammonia B-Natriuretic Peptide Ur Random Sodium Urine Creatinine Urine Urea Nitrogen Blood Type Antibody Screen Crossmatch 07/05/18 07/05/18 12:39 12:45 WBC RBC Hgb Hct MCV MCH MCHC RDW RDW Differential Plt Count MPV Neut % (Auto) Absolute Neuts (auto) Absolute Lymphs (auto) Total Counted Neutrophils % (Manual) Lymphocytes % (Manual) Monocytes % (Manual) Eosinophils % (Manual) Metamyelocytes % Myelocytes % Diff Path Review Platelet Estimate RBC Morphology Specimen Type MARY MARY Sample Site pH Bicarbonate Actual POC Total CO2 Base Excess O2 Saturation ABG pCO2 ABG pO2 Abram Test VBG pH 7.27 L 7.27 L VBG pO2 39 34 VBG O2 Sat (Calc) 64 56 VBG O2 Content 26 27 VBG Base Excess -3 L -2 L POC Mix VBG pCO2 Pt Tmp 52.7 H 55.2 H O2 Delivery Device Liter Flow Blood Gas Notified Whom Blood Gas Notified Time Sodium Potassium Chloride Carbon Dioxide Anion Gap BUN Creatinine Estim Creat Clear Calc Est GFR (MDRD) Af Amer Est GFR (MDRD) Non-Af BUN/Creatinine Ratio Glucose Calcium Phosphorus Magnesium Ammonia B-Natriuretic Peptide Ur Random Sodium Urine Creatinine Urine Urea Nitrogen Blood Type Antibody Screen Crossmatch POC Glucose 07/05/18 07/04/18 07/04/18 07:02 21:24 16:24 POC Glucose 125 H 200 H 214 H Clinical Impression(s) from Imaging Studies Chest X-Ray 07/04/18 09:42 IMPRESSION: Stable examination. No acute abnormality is seen. Electronically Signed: Peter Bahena, at 15:14 EDT , Service support , Chest X-Ray 07/05/18 09:58 IMPRESSION: New, right medial lung base/right infrahilar consolidation may represent pneumonia. The right hemithorax volume loss manifested by increased elevation of the right hemidiaphragm suggests that this consolidation may contain at least some component of atelectasis. No pneumothorax. Stable cardiomediastinal still silhouette status post CABG. Electronically Signed: Dean Hernadez MD at 10:46 EDT , Service support , Medical Necessity - Tobacco Use Smoking Status: Former smoker Tobacco Use: Non-smoker Assessment/Plan All Active Problems (Last Reviewed 06/28/18 @ 09:50 by Lia Meléndez, LISA-C) Acute respiratory failure with hypoxia (Acute) Respiratory failure with hypoxia (Acute) Acute exacerbation of chronic obstructive pulmonary disease (COPD) (Acute) Bronchospasm (Acute) Viral conjunctivitis (Acute) Allergic conjunctivitis (Acute) Chemosis of conjunctiva (Acute) Bradycardia (Acute) Hypotension (Acute) Decreased responsiveness (Acute) Acute hypoxic respiratory failure (Acute) Acute kidney injury (Acute) Prerenal azotemia (Resolved) RECOMMENDATIONS: 1. Consider diuretic therapy, defer to nephrology 2. Continue BiPAP rescue overnight 3. Wean oxygen as tolerated 4. No antibiotics or steroids indicated from my perspective 5. Aggressive blood sugar control IMPRESSIONS: 1. Acute hypoxic respiratory insufficiency secondary to probable acute on chronic diastolic congestive heart failure Patient with significant wheezing previously, but this appears to be improving. This is likely not to respond to beta agonists given etiology likely has excessive fluid. Patient may benefit from BiPAP therapy if there is difficulty overnight. High clinical suspicion for undiagnosed obstructive sleep apnea. Given elevated wedge pressure on right heart catheterization, diuresis would be indicated. Did not believe patient has infiltrate and this is likely related to breast tissue. A PA and lateral chest x-ray can be obtained. However, patient does not have fever or leukocytosis clinically. 2. Acute on chronic diastolic congestive heart failure secondary to postobstructive uropathy with renal failure She appears to have an element of anasarca at this time. Patient's albumin is low leading to decreased oncotic pressure. Patient does have significant anasarca on exam. Elevated wedge pressure would suggest that diuresis would be necessary. However, given patient's renal function, would need to discuss with nephrology. 3. Acute kidney injury on chronic kidney disease stage III Suspicion for postobstructive uropathy secondary to urinary retention. Patient does appear to have some improvement with conservative therapy. Renal function slightly improved today. 4. Poorly controlled hypertension Nephrology is currently following. Some medications are contraindicated given patient's renal function. We will continue to monitor closely. Patient is not showing any signs of endorgan damage except for renal dysfunction. 5. Morbid obesity/probable COPD/diabetes mellitus type 2/GERD/anx iety/hyperlipidemia/coronary artery disease Complicates care, management, recovery and prognosis. Do not believe patient is having acute exacerbation of COPD, so no steroids or antibiotics are indicated. Blood sugars are improved today Code Visit Inpatient E&M: 08146 Subs Hosp L3
--- NOTE | 2018-07-05 13:45 | CPS ---
back to room on BIPAP after heart cath, will leave on while pt is on flat bed rest
[2018-07-05 14:23] LABS: Pathologist Review Reviewed
--- NOTE | 2018-07-05 15:32 | PCM.PN.HOSP ---
Patient Problems: Active and Suspected Problems (Last Reviewed 06/28/18 @ 09:50 by Lia Meléndez NP-Katja) Acute respiratory failure with hypoxia (Acute) Subjective: Patient was seen and examined. She was noted to be confused, developed myoclonic jerks, did well overnight on BiPAP. ABG was unremarkable compared to previous. Ammonia was negative. 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 No fever or chills. Objective: Physical Exam General: Alert, Confused, Disoriented, - - Morbidly obese. Speaking in full sentences. HEENT: Atraumatic, PERRLA, EOMI, Normocephalic Oral: Moist Mucosa, No Gingival or Mucosal Lesions/ Ulcerations Neck: Supple, No Nodes, Trachea Midline, JVD, Right Lungs: No rhonchi, No wheeze, No rales, Diminished, - - Symmetric expansion. Cardiovascular: Regular rate, Regular Rhythm, Normal S1, Normal S2, No murmurs, No rub noted Abdomen: Bowel Sounds Present, Soft, Non Tender, Non-Distended, Obese Extremities: No clubbing, No cyanosis, Edema Skin: - - No significant change compared to previous Musculoskeletal: No Tenderness to Palpation of Joints or Extremities Lymphatic: No Cervical, Supraclavicular, or Inguinal Adenopathy Neurological: Cranial nerves II-XII grossly intact, Neuro grossly intact, Motor Exam 5/5 strength throughout Psych/Mental Status: Anxious, Impulsive, Restless Vitals/I&O's: Vital Signs Temp Pulse Resp BP Pulse Ox 98.4 F 89 20 H 143/78 H 97 07/05/18 15:15 07/05/18 15:15 07/05/18 15:15 07/05/18 15:15 07/05/18 15:15 Oxygen Flow Rate (L/min) 4 Oxygen Delivery Method Bi-pap Weight: 123.68 kg Body Mass Index (BMI) 45.5 Finger Stick Blood Glucose 155 Intake and Output for Last 24 Hours 07/03/18 07/04/18 07/05/18 23:59 23:59 23:59 Intake Total 1758 / 1758 823 / 823 1326 / 1326 Output Total 1075 / 1075 975 / 975 200 / 200 Balance 683 / 683 -152 / -152 1126 / 1126 Microbiology Past 72 Hours 07/02/18 15:40 Stool Stool Occult Blood (SANJUANA) - Final Laboratory Results 07/04/18 16:24: POC Glucose 214 H 07/04/18 21:24: POC Glucose 200 H 07/05/18 06:30: WBC 10.6, RBC 2.71 L, Hgb 7.5 L, Hct 24.3 L, MCV 89.7, MCH 27.7, MCHC 30.9 L, RDW 15.9 H, RDW Differential 50.5 H, Plt Count 404, MPV 9.2, Neut % (Auto) Not Reportable, Absolute Neuts (auto) 8.5 H, Absolute Lymphs (auto) 0.85, Total Counted 100, Neutrophils % (Manual) 80 H, Lymphocytes % (Manual) 8 L, Monocytes % (Manual) 5, Eosinophils % (Manual) 4, Metamyelocytes % 2 H, Myelocytes % 1 H, Diff Path Review Reviewed, Platelet Estimate SLT INC, RBC Morphology NORM C+C 07/05/18 06:30: Sodium 138, Potassium 4.1, Chloride 103, Carbon Dioxide 27.0, Anion Gap 8, BUN 56 H, Creatinine 2.27 H, Estim Creat Clear Calc 18.80, Est GFR (MDRD) Af Amer 27 L, Est GFR (MDRD) Non-Af 23 L, BUN/Creatinine Ratio 24.7 H, Glucose 134 H, Calcium 7.8 L, Phosphorus 3.5, Magnesium 2.0 07/05/18 07:02: POC Glucose 125 H 07/05/18 09:20: Ammonia 23.0 07/05/18 09:20: Blood Type A NEGATIVE, Antibody Screen NEGATIVE, Crossmatch See Detail 07/05/18 09:38: Specimen Type ART, Sample Site R Radial, pH 7.33 L, Bicarbonate Actual 25.2, POC Total CO2 27, Base Excess -1, O2 Saturation 89 L, ABG pCO2 47.6 H, ABG pO2 60 L, Abram Test POS, O2 Delivery Device Nasal Can, Liter Flow 4.0, Blood Gas Notified Whom RN, Blood Gas Notified Time 938 07/05/18 12:23: Specimen Type MARY, VBG pH 7.27 L, VBG pO2 31, VBG O2 Sat (Calc) 51, VBG O2 Content 27, VBG Base Excess -2 L, POC Mix VBG pCO2 Pt Tmp 54.5 H 07/05/18 12:26: Specimen Type MARY, VBG pH 7.27 L, VBG pO2 35, VBG O2 Sat (Calc) 57, VBG O2 Content 27, VBG Base Excess -2 L, POC Mix VBG pCO2 Pt Tmp 54.4 H 07/05/18 12:30: Specimen Type MARY, VBG pH 7.28 L, VBG pO2 32, VBG O2 Sat (Calc) 52, VBG O2 Content 27, VBG Base Excess -2 L, POC Mix VBG pCO2 Pt Tmp 54.1 H 07/05/18 12:33: Specimen Type ART, pH 7.29 L, Bicarbonate Actual 24.2, POC Total CO2 26, Base Excess -2, O2 Saturation 92 L, ABG pCO2 50.6 H, ABG pO2 71 L 07/05/18 12:36: Specimen Type MARY, VBG pH 7.28 L, VBG pO2 34, VBG O2 Sat (Calc) 56, VBG O2 Content 27, VBG Base Excess -2 L, POC Mix VBG pCO2 Pt Tmp 53.3 H 07/05/18 12:39: Specimen Type MARY, VBG pH 7.27 L, VBG pO2 39, VBG O2 Sat (Calc) 64, VBG O2 Content 26, VBG Base Excess -3 L, POC Mix VBG pCO2 Pt Tmp 52.7 H 07/05/18 12:45: Specimen Type MARY, VBG pH 7.27 L, VBG pO2 34, VBG O2 Sat (Calc) 56, VBG O2 Content 27, VBG Base Excess -2 L, POC Mix VBG pCO2 Pt Tmp 55.2 H Current Medications Acetaminophen (Tylenol) 650 mg PO Q6H PRN PRN PRN Reason: Mild Pain (1-3)/Temp > 100.7 F Last Admin: 07/03/18 01:09 Dose: 650 mg Albuterol Sulfate (Ventolin Aerosols) 2.5 mg INHALATION Q2H PRN PRN PRN Reason: Shortness of Breath/Wheezing Last Admin: 07/03/18 13:37 Dose: 2.5 mg Albuterol/Ipratropium (Duoneb) 3 ml INHALATION Q4H.RT [facility] Last Admin: 07/05/18 14:25 Dose: 3 ml Amlodipine Besylate (Norvasc) 10 mg PO DAILY [facility] Last Admin: 07/05/18 09:00 Dose: 10 mg Aspirin (Ecotrin) 81 mg PO DAILYCM [facility] Last Admin: 07/05/18 08:59 Dose: 81 mg Atorvastatin Calcium (Lipitor) 80 mg PO HS [facility] Last Admin: 07/04/18 21:37 Dose: 80 mg Carvedilol (Coreg) 3.125 mg PO BID [facility] Last Admin: 07/05/18 09:00 Dose: 3.125 mg Dextrose (D50w Syringe) 0 gm IV X1 PRN; Protocol PRN Reason: Hypoglycemia Doxazosin Mesylate (Cardura) 8 mg PO QHS [facility] Last Admin: 07/04/18 21:35 Dose: 8 mg Famotidine (Pepcid) 20 mg PO BID [facility] Last Admin: 07/05/18 09:19 Dose: 20 mg [facility]ap[facility] (Neurontin) [facility] Last Admin: 07/05/18 08:59 Dose: 300 mg Gabapentin (Neurontin) 600 mg PO [facility] Last Admin: 07/04/18 21:38 Dose: 600 mg Glucagon () 1 mg IM .X1 PRN PRN Reason: Hypoglycemia Hydralazine HCl (Apresoline) 100 mg PO TID [facility] Last Admin: 07/05/18 07:05 Dose: 100 mg Iron Sucrose 200 mg/ Sodium (Chloride) 110 mls @ 220 mls/hr IV DAILY [facility] Stop: 07/07/18 10:29 Last Admin: 07/05/18 10:55 Dose: 220 mls/hr Furosemide 500 mg/ N/A 50 mls @ 1 mls/hr CONT INF .Q50H [facility] Insulin Human Lispro (Humalog Kwikpen (Bkc)) 0 unit SQ ACHS [facility]; Protocol Last Admin: 07/05/18 11:54 Dose: Not Given Isosorbide Mononitrate (Imdur) 30 mg PO DAILY [facility] Last Admin: 07/05/18 09:00 Dose: 30 mg Nitroglycerin (Nitrostat) 0.4 mg SUBLINGUAL Q5M PRN PRN Reason: CARDIAC/CHEST PAIN Last Admin: 07/03/18 10:25 Dose: 0.4 mg Ondansetron HCl (Zofran) 4 mg IV Q8H PRN PRN PRN Reason: NAUSEA/VOMITING Pantoprazole Sodium (Protonix) 40 mg PO DAILY [facility] Last Admin: 07/05/18 09:00 Dose: 40 mg Sodium Chloride () 5 - 15 ml IV UD PRN PRN Reason: SALINE FLUSH Last Admin: 07/04/18 21:40 Dose: 10 ml Throat Lozenges (Cepacol Sore Throat Lozenge) 1 lozenge MUCOUS MEM Q2H PRN PRN PRN Reason: Sore throat or cough Medical Necessity - Tobacco Use Smoking Status: Former smoker Tobacco Use: Non-smoker Assessment/Plan All Active Problems (Last Reviewed 06/28/18 @ 09:50 by Lia Meléndez NP-C) Acute respiratory failure with hypoxia (Acute) Respiratory failure with hypoxia (Acute) Acute exacerbation of chronic obstructive pulmonary disease (COPD) (Acute) Bronchospasm (Acute) Viral conjunctivitis (Acute) Allergic conjunctivitis (Acute) Chemosis of conjunctiva (Acute) Bradycardia (Acute) Hypotension (Acute) Decreased responsiveness (Acute) Acute hypoxic respiratory failure (Acute) Acute kidney injury (Acute) Prerenal azotemia (Resolved) 72 year old F with multiple comorbidities including COPD not on home oxygen, recently discharged after a complicated hospital course in which patient was found to be minimally responsive soon after admission and managed in the ICU, intubated, bradycardic, on IV dopamine, transvenous pacemaker. Patient subsequently was extubated, managed on the nursing flow and eventually discharged home with home health. She comes in with progressive shortness of breath and anuria. 1. Myoclonic jerks, symptomatic, likely related to metabolic derangements, will give Valproic acid 1g x 1 Will get neurologist involved if it persists. 2. Acute delirium, hyperactive, will continue to treat underlying problems, will give Melatonin 3mg Q6pm, haldol 1mg IV prn as needed, EKG in am. 3. Acute hypoxic respiratory failure secondary to moderate-severe pulmonary hypertension, copd exacerbation, possible right sided heart failure will continue on nasal canula oxygen and Bipap at night and as needed when sleeping. 4. Moderate-severe pulmonary Hypertension, discussed with cardiology, pulmonology and nephrology, Patient is s/p right heart cath findings as abive. Per nephrology, will start patient on lasix drip at 10mg/hr, will monitor urine output and renal function 5. KURT on CKD stage 3, unclear etiology, creatinine remains the same compared her baseline creatinine is around 1.2, hydrochlorothiazide and losartan on hold, nephrology consulted Started on Lasix drip, will continue to monitor 6. Hypertension, fairly controlled, will continue on home medications 7. Type II DM, blood sugars are better controlled now, off steroids, will continue to hold home metformin, continue with med-high dose insulin sliding scale with Accu-Cheks 8. DVT prophylaxis with heparin subcu Code Visit Inpatient E&M: 11399 Subs Hosp L3
--- NOTE | 2018-07-05 15:43 | PN_ITS ---
Patient Problems: Active and Suspected Problems (Last Reviewed 06/28/18 @ 09:50 by Lia Meléndez NP-Katja) Acute respiratory failure with hypoxia (Acute) Subjective: Patient was seen and examined. She was noted to be confused, developed myoclonic jerks, did well overnight on BiPAP. ABG was unremarkable compared to previous. Ammonia was negative. 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 No fever or chills. Objective: Physical Exam General: Alert, Confused, Disoriented, - - Morbidly obese. Speaking in full s entences. HEENT: Atraumatic, PERRLA, EOMI, Normocephalic Oral: Moist Mucosa, No Gingival or Mucosal Lesions/ Ulcerations Neck: Supple, No Nodes, Trachea Midline, JVD, Right Lungs: No rhonchi, No wheeze, No rales, Diminished, - - Symmetric expansion. Cardiovascular: Regular rate, Regular Rhythm, Normal S1, Normal S2, No murmurs, No rub noted Abdomen: Bowel Sounds Present, Soft, Non Tender, Non-Distended, Obese Extremities: No clubbing, No cyanosis, Edema Skin: - - No significant change compared to previous Musculoskeletal: No Tenderness to Palpation of Joints or Extremities Lymphatic: No Cervical, Supraclavicular, or Inguinal Adenopathy Neurological: Cranial nerves II-XII grossly intact, Neuro grossly intact, Motor Exam 5/5 strength throughout Psych/Mental Status: Anxious, Impulsive, Restless Vitals/I&O's: Vital Signs Temp Pulse Resp BP Pulse Ox 98.4 F 89 20 H 143/78 H 97 07/05/18 15:15 07/05/18 15:15 07/05/18 15:15 07/05/18 15:15 07/05/18 15:15 Oxygen Flow Rate (L/min) 4 Oxygen Delivery Method Bi-pap Weight: 123.68 kg Body Mass Index (BMI) 45.5 Finger Stick Blood Glucose 155 Intake and Output for Last 24 Hours 07/03/18 07/04/18 07/05/18 23:59 23:59 23:59 Intake Total 1758 / 1758 823 / 823 1326 / 1326 Output Total 1075 / 1075 975 / 975 200 / 200 Balance 683 / 683 -152 / -152 1126 / 1126 Microbiology Past 72 Hours 07/02/18 15:40 Stool Stool Occult Blood (SANJUANA) - Final Laboratory Results 07/04/18 16:24: POC Glucose 214 H 07/04/18 21:24: POC Glucose 200 H 07/05/18 06:30: WBC 10.6, RBC 2.71 L, Hgb 7.5 L, Hct 24.3 L, MCV 89.7, MCH 27.7, MCHC 30.9 L, RDW 15.9 H, RDW Differential 50.5 H, Plt Count 404, MPV 9.2, Neut % (Auto) Not Reportable, Absolute Neuts (auto) 8.5 H, Absolute Lymphs (auto) 0.85, Total Counted 100, Neutrophils % (Manual) 80 H, Lymphocytes % (Manual) 8 L, Monocytes % (Manual) 5, Eosinophils % (Manual) 4, Metamyelocytes % 2 H, Myelocytes % 1 H, Diff Path Review Reviewed, Platelet Estimate T INC, RBC Morphology NORM C+C 07/05/18 06:30: Sodium 138, Potassium 4.1, Chloride 103, Carbon Dioxide 27.0, Anion Gap 8, BUN 56 H, Creatinine 2.27 H, Estim Creat Clear Calc 18.80, Est GFR (MDRD) Af Amer 27 L, Est GFR (MDRD) Non-Af 23 L, BUN/Creatinine Ratio 24.7 H, Glucose 134 H, Calcium 7.8 L, Phosphorus 3.5, Magnesium 2.0 07/05/18 07:02: POC Glucose 125 H 07/05/18 09:20: Ammonia 23.0 07/05/18 09:20: Blood Type A NEGATIVE, Antibody Screen NEGATIVE, Crossmatch See Detail 07/05/18 09:38: Specimen Type ART, Sample Site R Radial, pH 7.33 L, Bicarbonate Actual 25.2, POC Total CO2 27, Base Excess -1, O2 Saturation 89 L, ABG pCO2 47.6 H, ABG pO2 60 L, Abram Test POS, O2 Delivery Device Nasal Can, Liter Flow 4.0, Blood Gas Notified Whom RN, Blood Gas Notified Time 938 07/05/18 12:23: Specimen Type MARY, VBG pH 7.27 L, VBG pO2 31, VBG O2 Sat (Calc) 51, VBG O2 Content 27, VBG Base Excess -2 L, POC Mix VBG pCO2 Pt Tmp 54.5 H 07/05/18 12:26: Specimen Type MARY, VBG pH 7.27 L, VBG pO2 35, VBG O2 Sat (Calc) 57, VBG O2 Content 27, VBG Base Excess -2 L, POC Mix VBG pCO2 Pt Tmp 54.4 H 07/05/18 12:30: Specimen Type MARY, VBG pH 7.28 L, VBG pO2 32, VBG O2 Sat (Calc) 52, VBG O2 Content 27, VBG Base Excess -2 L, POC Mix VBG pCO2 Pt Tmp 54.1 H 07/05/18 12:33: Specimen Type ART, pH 7.29 L, Bicarbonate Actual 24.2, POC Total CO2 26, Base Excess -2, O2 Saturation 92 L, ABG pCO2 50.6 H, ABG pO2 71 L 07/05/18 12:36: Specimen Type MARY, VBG pH 7.28 L, VBG pO2 34, VBG O2 Sat (Calc) 56, VBG O2 Content 27, VBG Base Excess -2 L, POC Mix VBG pCO2 Pt Tmp 53.3 H 07/05/18 12:39: Specimen Type MARY, VBG pH 7.27 L, VBG pO2 39, VBG O2 Sat (Calc) 64, VBG O2 Content 26, VBG Base Excess -3 L, POC Mix VBG pCO2 Pt Tmp 52.7 H 07/05/18 12:45: Specimen Type MARY, VBG pH 7.27 L, VBG pO2 34, VBG O2 Sat (Calc) 56, VBG O2 Content 27, VBG Base Excess -2 L, POC Mix VBG pCO2 Pt Tmp 55.2 H Current Medications Acetaminophen (Tylenol) 650 mg PO Q6H PRN PRN PRN Reason: Mild Pain (1-3)/Temp > 100.7 F Last Admin: 07/03/18 01:09 Dose: 650 mg Albuterol Sulfate (Ventolin Aerosols) 2.5 mg INHALATION Q2H PRN PRN PRN Reason: Shortness of Breath/Wheezing Last Admin: 07/03/18 13:37 Dose: 2.5 mg Albuterol/Ipratropium (Duoneb) 3 ml INHALATION Q4H.RT [facility] Last Admin: 07/05/18 14:25 Dose: 3 ml Amlodipine Besylate (Norvasc) 10 mg PO DAILY [facility] Last Admin: 07/05/18 09:00 Dose: 10 mg [facility] Last Admin: 07/05/18 08:59 Dose: 81 mg Atorvastatin Calcium (Lipitor) 80 mg PO HS [facility] Last Admin: 07/04/18 21:37 Dose: 80 mg Carvedilol (Coreg) 3.125 mg PO BID [facility] Last Admin: 07/05/18 09:00 Dose: 3.125 mg Dextrose (D50w Syringe) 0 gm IV X1 PRN; Protocol PRN Reason: Hypoglycemia Doxazosin Mesylate (Cardura) 8 mg PO QHS [facility] Last Admin: 07/04/18 21:35 Dose: 8 mg Famotidine (Pepcid) 20 mg PO BID [facility] Last Admin: 07/05/18 09:19 Dose: 20 mg Gabapentin ([facility]urontin) [facility] Last Admin: 07/05/18 08:59 Dose: 300 mg Gabapentin (Neurontin) 600 mg PO [facility] Last Admin: 07/04/18 21:38 Dose: 600 mg Glucagon () 1 mg IM .X1 PRN PRN Reason: Hypoglycemia Hydralazine HCl (Apresoline) 100 mg PO TID [facility] Last Admin: 07/05/18 07:05 Dose: 100 mg Iron Sucrose 200 mg/ Sodium (Chloride) 110 mls @ 220 mls/hr IV DAILY [facility] Stop: 07/07/18 10:29 Last Admin: 07/05/18 10:55 Dose: 220 mls/hr Furosemide 500 mg/ N/A 50 mls @ 1 mls/hr CONT INF .Q50H [facility] Insulin Human Lispro (Humalog Kwikpen (Bkc)) 0 unit SQ ACHS [facility]; Protocol Last Admin: 07/05/18 11:54 Dose: Not Given Isosorbide Mononitrate (Imdur) 30 mg PO DAILY [facility] Last Admin: 07/05/18 09:00 Dose: 30 mg Nitroglycerin (Nitrostat) 0.4 mg SUBLINGUAL Q5M PRN PRN Reason: CARDIAC/CHEST PAIN Last Admin: 07/03/18 10:25 Dose: 0.4 mg Ondansetron HCl (Zofran) 4 mg IV Q8H PRN PRN PRN Reason: NAUSEA/VOMITING Pantoprazole Sodium (Protonix) 40 mg PO DAILY [facility] Last Admin: 07/05/18 09:00 Dose: 40 mg Sodium Chloride () 5 - 15 ml IV UD PRN PRN Reason: SALINE FLUSH Last Admin: 07/04/18 21:40 Dose: 10 ml Throat Lozenges (Cepacol Sore Throat Lozenge) 1 lozenge MUCOUS MEM Q2H PRN PRN PRN Reason: Sore throat or cough Medical Necessity - Tobacco Use Smoking Status: Former smoker Tobacco Use: Non-smoker Assessment/Plan All Active Problems (Last Reviewed 06/28/18 @ 09:50 by Lia Meléndez NP-C) Acute respiratory failure with hypoxia (Acute) Respiratory failure with hypoxia (Acute) Acute exacerbation of chronic obstructive pulmonary disease (COPD) (Acute) Bronchospasm (Acute) Viral conjunctivitis (Acute) Allergic conjunctivitis (Acute) Chemosis of conjunctiva (Acute) Bradycardia (Acute) Hypotension (Acute) Decreased responsiveness (Acute) Acute hypoxic respiratory failure (Acute) Acute kidney injury (Acute) Prerenal azotemia (Resolved) 72 year old F with multiple comorbidities including COPD not on home oxygen, recently discharged after a complicated hospital course in which patient was found to be minimally responsive soon after admission and managed in the ICU, intubated, bradycardic, on IV dopamine, transvenous pacemaker. Patient subsequently was extubated, managed on the nursing flow and eventually discharged home with home health. She comes in with progressive shortness of breath and anuria. 1. Myoclonic jerks, symptomatic, likely related to metabolic derangements, will give Valproic acid 1g x 1 Will get neurologist involved if it persists. 2. Acute delirium, hyperactive, will continue to treat underlying problems, will give Melatonin 3mg Q6pm, haldol 1mg IV prn as needed, EKG in am. 3. Acute hypoxic respiratory failure secondary to moderate-severe pulmonary hypertension, copd exacerbation, possible right sided heart failure will continue on nasal canula oxygen and Bipap at night and as needed when sleeping. 4. Moderate-severe pulmonary Hypertension, discussed with cardiology, pulmonology and nephrology, Patient is s/p right heart cath findings as abive. Per nephrology, will start patient on lasix drip at 10mg/hr, will monitor urine output and renal function 5. KURT on CKD stage 3, unclear etiology, creatinine remains the same compared her baseline creatinine is around 1.2, hydrochlorothiazide and losartan on hold, nephrology consulted Started on Lasix drip, will continue to monitor 6. Hypertension, fairly controlled, will continue on home medications 7. Type II DM, blood sugars are better controlled now, off steroids, will continue to hold home metformin, continue with med-high dose insulin sliding scale with Accu-Cheks 8. DVT prophylaxis with heparin subcu Code Visit Inpatient E&M: 04247 Subs Hosp L3
[2018-07-05] MEDS: Insulin Lispro 100 UNIT/ML INSULN.PEN SQ (16:49)
[2018-07-05 17:10] LABS: Bedside Glucose 175 mg/dL (70-110)
[2018-07-05] MEDS: Furosemide 500 MG in Empty Viaflex 50 mL 1 EACH CONT INF (17:44)
[2018-07-05] MEDS: MELATONIN 3 MG TABLET PO (18:45)
[2018-07-05] MEDS: Ipratropium 0.5 MG/2.5 ML SOLUTION INHALATION ×2 (19:10→23:35)
[2018-07-05 20:11] LABS: Allen Test POS; Base Excess -1 mmol/L (-2 to +2); Bicarbonate 25.1 mmol/L (22-26); Blood Gas Specimen Type ART; EPAP 7; FI02 30; IPAP 14; PO2 67 mmHG (75-100); RR 12; SITE R Radial; SO2 90 % (95-99); Time Given 1952; Total Carbon Dioxide 27 mmol/L; pCO2 51.6 mmHg (35-45)
[2018-07-05 21:25] LABS: Bedside Glucose 134 mg/dL (70-110)
[2018-07-05] MEDS: Atorvastatin Calcium 80 MG Tablet PO (21:27)
[2018-07-05] MEDS: Doxazosin 4 MG Tablet 8 MG PO (21:27)
[2018-07-05] MEDS: Gabapentin 600 MG Tablet PO (21:27)
[2018-07-06] VITALS (28 sets, daily range): BP systolic 115–141; BP diastolic 56–66; PULSE 80–96; RESP 12–20; TEMP 36.7–37.2; O2SAT 91–97
[2018-07-06] MEDS: Ipratropium 0.5 MG/2.5 ML SOLUTION INHALATION ×6 (03:52→23:26)
[2018-07-06] MEDS: hydrALAZINE 50 MG Tablet 100 MG PO ×3 (05:46→21:47)
--- NOTE | 2018-07-06 05:55 | EKG12_ITS ---
Test Reason : AM EKG Blood Pressure : / mmHG Vent. Rate : 087 BPM Atrial Rate : 087 BPM P-R Int : 176 ms QRS Dur : 096 ms QT Int : 348 ms P-R-T Axes : 071 050 069 degrees QTc Int : 418 ms Normal sinus rhythm Normal ECG When compared with ECG of 03-JUL-2018 10:04, MANUAL COMPARISON REQUIRED, DATA IS UNCONFIRMED Confirmed by CHAITANYA DOVE, CARLOS ENRIQUE ([id number]), editor producer DENVER KRAUSE ([id number]) on 07/09/2018 2:02:56 PM Referred By: OMAIRA Confirmed By:CARLOS ENRIQUE TAVARES MD
[2018-07-06 06:48] LABS: Hematocrit 26.1 % (37-47); Hemoglobin 8.3 g/dl (12.0-15.0); Mean Corp Hgb Conc 31.8 g/gl (32-36); Mean Corpuscular Hgb 28.4 pg (27.0-32.0); Mean Corpuscular Volume 89.4 fL (81-99); Mean Platelet Vol. 9.1 fl (6.2-12.0); Platelet Count 364 K/mm3 (150-450); RBC Distribution Width CV 16.3 % (11.6-14.6); RBC Distribution Width SD 53.3 fl (35.1-43.9); Red Blood Count 2.92 M/mm3 (4.2-5.4); White Blood Count 10.7 K/mm3 (4.4-11.0)
--- NOTE | 2018-07-06 06:53 | CPS ---
Patient currently on BiPAP, PEP Therapy not done.
[2018-07-06 06:57] LABS: Differential Indicated MANUAL DIFF; POSITIVE COUNT YES; POSITIVE DIFFERENTIAL NO; POSITIVE MORPHOLOGY YES
[2018-07-06 07:05] LABS: ALB/GLOB Ratio 0.8 RATIO (0.9-2.4); AST(SGOT) 19 U/L (15-37); Alanine Aminotransfer ALT/SGPT 22 U/L (13-56); Albumin, Serum 2.8 g/dL (3.2-5.0); Alkaline Phosphatase 95 U/L (45-117); Anion Gap 8 (5-15); BUN 57 mg/dL (7-18); BUN/Creat Ratio 23.6 RATIO (10-20); Calcium,Total 8.2 mg/dL (8.5-10.1); Chloride 102 mmol/L (98-107); Creatinine, Serum 2.42 mg/dL (0.55-1.02); EST Glomerular Filtration Rate 21 mL/min (>60); Est Glom Filt Rate - Afr Amer 25 mL/min (>60); Estimated Creatinine Clearance 17.64 ml/min; Globulin 3.3 g/dL (2.2-4.2); Glucose 126 mg/dL (74-106); Potassium 3.9 mmol/L (3.5-5.1); Protein, Total 6.1 g/dL (6.4-8.2); Sodium Level 137 mmol/L (136-145)
--- NOTE | 2018-07-06 07:19 | PN_ITS ---
Patient Problems: Active and Suspected Problems (Last Reviewed 06/28/18 @ 09:50 by Lia Meléndez NP-Katja) Acute respiratory failure with hypoxia (Acute) Subjective: Patient was seen and examined. Overnight, she is reported as being somnolent, still having myoclonic clonic-like twitches. Repeat ABG is not changed much from previous. Did well with Bipap at night and prn. Family had requested UA for possible UTI - urine is unremarkable Vitals/I&O's: Vital Signs Temp Pulse Resp BP Pulse Ox 98.9 F 94 18 115/60 96 07/06/18 03:15 07/06/18 06:51 07/06/18 06:51 07/06/18 05:41 07/06/18 06:51 Oxygen Flow Rate (L/min) 4 Oxygen Delivery Method Bi-pap Weight: 123.1 kg Body Mass Index (BMI) 45.5 Finger Stick Blood Glucose 155 Intake and Output for Last 24 Hours 07/04/18 07/05/18 07/06/18 23:59 23:59 23:59 Intake Total 823 / 823 1952.6 / 1952.6 125.6 / 125.6 Output Total 975 / 975 200 / 200 Balance -152 / -152 1752.6 / 1752.6 125.6 / 125.6 General: Lethargic, - - On Bipap, arouses to sternal rubs HEENT: Atraumatic, PERRLA, EOMI, Normocephalic Oral: Moist Mucosa Neck: Supple Lungs: Diminished Cardiovascular: Regular rate, Regular Rhythm, Normal S1, Normal S2, No murmurs Abdomen: Bowel Sounds Present, Soft, Non Tender, Non-Distended, No Hepato- splenomegaly, Passing Flatus Extremities: Edema - +1-2 Skin: - - mild ecchymosis of left lower leg Musculoskeletal: No Tenderness to Palpation of Joints or Extremities Lymphatic: No Cervical, Supraclavicular, or Inguinal Adenopathy Neurological: Cranial nerves II-XII grossly intact, Neuro grossly intact Laboratory Results 07/05/18 06:30: Diff Path Review Reviewed 07/05/18 09:20: Ammonia 23.0 07/05/18 09:20: Blood Type A NEGATIVE, Antibody Screen NEGATIVE, Crossmatch See Detail 07/05/18 09:38: Specimen Type ART, Sample Site R Radial, pH 7.33 L, Bicarbonate Actual 25.2, POC Total CO2 27, Base Excess -1, O2 Saturation 89 L, ABG pCO2 47.6 H, ABG pO2 60 L, Abram Test POS, O2 Delivery Device Nasal Can, Liter Flow 4.0, Blood Gas Notified Whom RN, Blood Gas Notified Time 938 07/05/18 12:23: Specimen Type MARY, VBG pH 7.27 L, VBG pO2 31, VBG O2 Sat (Calc) 51, VBG O2 Content 27, VBG Base Excess -2 L, POC Mix VBG pCO2 Pt Tmp 54.5 H 07/05/18 12:26: Specimen Type MARY, VBG pH 7.27 L, VBG pO2 35, VBG O2 Sat (Calc) 57, VBG O2 Content 27, VBG Base Excess -2 L, POC Mix VBG pCO2 Pt Tmp 54.4 H 07/05/18 12:30: Specimen Type MARY, VBG pH 7.28 L, VBG pO2 32, VBG O2 Sat (Calc) 52, VBG O2 Content 27, VBG Base Excess -2 L, POC Mix VBG pCO2 Pt Tmp 54.1 H 07/05/18 12:33: Specimen Type ART, pH 7.29 L, Bicarbonate Actual 24.2, POC Total CO2 26, Base Excess -2, O2 Saturation 92 L, ABG pCO2 50.6 H, ABG pO2 71 L 07/05/18 12:36: Specimen Type MARY, VBG pH 7.28 L, VBG pO2 34, VBG O2 Sat (Calc) 56, VBG O2 Content 27, VBG Base Excess -2 L, POC Mix VBG pCO2 Pt Tmp 53.3 H 07/05/18 12:39: Specimen Type MARY, VBG pH 7.27 L, VBG pO2 39, VBG O2 Sat (Calc) 64, VBG O2 Content 26, VBG Base Excess -3 L, POC Mix VBG pCO2 Pt Tmp 52.7 H 07/05/18 12:45: Specimen Type MARY, VBG pH 7.27 L, VBG pO2 34, VBG O2 Sat (Calc) 56, VBG O2 Content 27, VBG Base Excess -2 L, POC Mix VBG pCO2 Pt Tmp 55.2 H 07/05/18 16:44: POC Glucose 175 H 07/05/18 20:07: Specimen Type ART, Sample Site R Radial, pH 7.30 L, Bicarbonate Actual 25.1, POC Total CO2 27, Base Excess -1, O2 Saturation 90 L, O2 % 30, ABG pCO2 51.6 H, ABG pO2 67 L, Abram Test POS, Respiration Rate 12, O2 Delivery Device Bi / C PAP, EPAP 7, IPAP 14, Blood Gas Notified Whom CHERRY DOVE, Blood Gas Notified Time 195107/05/18 21:10: POC Glucose 134 H 07/06/18 05:50: WBC 10.7, RBC 2.92 L, Hgb 8.3 L, Hct 26.1 L, MCV 89.4, MCH 28.4, MCHC 31.8 L, RDW 16.3 H, RDW Differential 53.3 H, Plt Count 364, MPV 9.1, Neut % (Auto) Not Reportable, Absolute Neuts (auto) Not Reportable, Total Counted Pending 07/06/18 05:50: Sodium 137, Potassium 3.9, Chloride 102, Carbon Dioxide 27.0, Anion Gap 8, BUN 57 H, Creatinine 2.42 H, Estim Creat Clear Calc 17.64, Est GFR (MDRD) Af Amer 25 L, Est GFR (MDRD) Non-Af 21 L, BUN/Creatinine Ratio 23.6 H, Glucose 126 H, Calcium 8.2 L, Total Bilirubin 0.30, AST 19, ALT 22, Alkaline Phosphatase 95, Total Protein 6.1 L, Albumin 2.8 L, Globulin 3.3, Albumin/Globulin Ratio 0.8 L Current Medications Acetaminophen (Tylenol) 650 mg PO Q6H PRN PRN PRN Reason: Mild Pain (1-3)/Temp > 100.7 F Last Admin: 07/03/18 01:09 Dose: 650 mg Amlodipine Besylate (Norvasc) 10 mg PO DAILY [facility] Last Admin: 07/05/18 09:00 Dose: 10 mg [facility] Last Admin: 07/05/18 08:59 Dose: 81 mg Atorvastatin Calcium (Lipitor) 80 mg PO HS [facility] Last Admin: 07/05/18 21:27 Dose: 80 mg Carvedilol (Coreg) 3.125 mg PO BID [facility] Last Admin: 07/05/18 21:27 Dose: 3.125 mg Dextrose (D50w Syringe) 0 gm IV X1 PRN; Protocol PRN Reason: Hypoglycemia Doxazosin Mesylate (Cardura) 8 mg PO QHS [facility] Last Admin: 07/05/18 21:27 Dose: 8 mg Gabapentin (Neurontin) 300 mg PO DAILYCM [facility] Last Admin: 07/05/18 08:59 Dose: 300 mg Gabapentin (Neurontin) 600 mg PO HS [facility] Last Admin: 07/05/18 21:27 Dose: 600 mg Glucagon () 1 mg IM .X1 PRN PRN Reason: Hypoglycemia Haloperidol Lactate (Haldol) 1 mg IV Q6H PRN PRN PRN Reason: AGITATION Hydralazine HCl (Apresoline) 100 mg PO TID [facility] Last Admin: 07/06/18 05:46 Dose: 100 mg Iron Sucrose 200 mg/ Sodium (Chloride) 110 mls @ 220 mls/hr IV DAILY [facility] Stop: 07/07/18 10:29 Last Admin: 07/05/18 10:55 Dose: 220 mls/hr Furosemide 500 mg/ N/A 50 mls @ 1 mls/hr CONT INF .Q50H [facility] Last Admin: 07/05/18 17:44 Dose: 1 mls/hr Insulin Human Lispro (Humalog Kwikpen (Bkc)) 0 unit SQ ACHS [facility]; Protocol Last Admin: 07/06/18 06:39 Dose: Not Given Ipratropium Magnolia (Atrovent) 0.5 mg INHALATION Q4H.RT [facility] Last Admin: 07/06/18 06:54 Dose: 0.5 mg Isosorbide Mononitrate (Imdur) 30 mg PO DAILY [facility] Last Admin: 07/05/18 09:00 Dose: 30 mg Melatonin (Melatonin) 3 mg PO QHS [facility] Last Admin: 07/05/18 18:45 Dose: 3 mg Nitroglycerin (Nitrostat) 0.4 mg SUBLINGUAL Q5M PRN PRN Reason: CARDIAC/CHEST PAIN Last Admin: 07/03/18 10:25 Dose: 0.4 mg Pantoprazole Sodium (Protonix) 40 mg PO DAILY [facility] Last Admin: 07/05/18 09:00 Dose: 40 mg Sodium Chloride () 5 - 15 ml IV UD PRN PRN Reason: SALINE FLUSH Last Admin: 07/04/18 21:40 Dose: 10 ml Throat Lozenges (Cepacol Sore Throat Lozenge) 1 lozenge MUCOUS MEM Q2H PRN PRN PRN Reason: Sore throat or cough Medical Necessity - Tobacco Use Smoking Status: Former smoker Tobacco Use: Non-smoker Assessment/Plan All Active Problems (Last Reviewed 06/28/18 @ 09:50 by Lia Meléndez, LISA-C) Acute respiratory failure with hypoxia (Acute) Respiratory failure with hypoxia (Acute) Acute exacerbation of chronic obstructive pulmonary disease (COPD) (Acute) Bronchospasm (Acute) Viral conjunctivitis (Acute) Allergic conjunctivitis (Acute) Chemosis of conjunctiva (Acute) Bradycardia (Acute) Hypotension (Acute) Decreased responsiveness (Acute) Acute hypoxic respiratory failure (Acute) Acute kidney injury (Acute) Prerenal azotemia (Resolved) 72 year old F with multiple comorbidities including COPD not on home oxygen, recently discharged after a complicated hospital course in which patient was found to be minimally responsive soon after admission and managed in the ICU, intubated, bradycardic, on IV dopamine, transvenous pacemaker. Patient subsequently was extubated, managed on the nursing flow and eventually discharged home with home health. She comes in with progressive shortness of breath and anuria. 1. Myoclonic jerks, symptomatic, likely related to metabolic derangements, slightly improved, will continue to monitor 2. Acute delirium, hypoactive today, will continue to treat underlining problems, will dc melatonin and haldol 3. Acute hypoxic respiratory failure secondary to moderate-severe pulmonary hypertension, copd exacerbation, possible right sided heart failure, remains the same will continue on nasal canula oxygen and Bipap at night and as needed when sleeping. 4. Moderate-severe pulmonary Hypertension, discussed with cardiology, pulmonology and nephrology, Patient is s/p right heart cath findings as above, on lasix drip, unable to have accurate I & Os as patient is incontinent, will continue to monitor. 5. KURT on CKD stage 3, likely secondary to pulmo-renal syndrome, creatinine is slightly elevated, will monitor on Lasix drip 6. Hypertension, fairly controlled, will continue on home medications 7. Type II DM, blood sugars are better controlled now, off steroids, will continue to hold home metformin, continue with med-high dose insulin sliding scale with Accu-Cheks 8. DVT prophylaxis with heparin subcu Code Visit Inpatient E&M: 38951 Subs Hosp L3
--- NOTE | 2018-07-06 08:08 | PCM.PN.PUL ---
Patient Problems: Active and Suspected Problems (Last Reviewed 06/28/18 @ 09:50 by Lia Meléndez NP-Katja) Acute respiratory failure with hypoxia (Acute) Subjective: Patient did okay overnight. Patient did have a large incontinent episode reported. Patient tolerated BiPAP therapy, but has remained confused. Nursing continues to report intermittent myoclonic jerking. Patient denied any pain for me this morning, but was difficult to wake while on BiPAP therapy. - Physical Exam General: Confused, Disoriented, - - Good BiPAP synchrony. Morbidly obese. HEENT: Atraumatic, PERRLA, EOMI, Normocephalic, - - Slight scleral injection Oral: Moist Mucosa, No Gingival or Mucosal Lesions/ Ulcerations Neck: Supple, No Nodes, Trachea Midline, JVD, Right Lungs: No rhonchi, No wheeze, No rales, Diminished Cardiovascular: Regular rate, Regular Rhythm, Normal S1, Normal S2, No murmurs, No rub noted, No Gallop Abdomen: Bowel Sounds Present, Soft, Non Tender, Non-Distended, Obese Extremities: No clubbing, No cyanosis, Edema - 1-2+ lower extremity Skin: - - Mild ecchymosis of the left lower leg Musculoskeletal: No Tenderness to Palpation of Joints or Extremities Lymphatic: No Cervical, Supraclavicular, or Inguinal Adenopathy Neurological: Cranial nerves II-XII grossly intact, Neuro grossly intact, Motor Exam 5/5 strength throughout Psych/Mental Status: Flat Affect, Impulsive, Restless Vital Signs Temp Pulse Resp BP Pulse Ox 37.2 C 93 18 115/60 96 07/06/18 03:15 07/06/18 07:00 07/06/18 06:51 07/06/18 05:41 07/06/18 06:51 Oxygen Flow Rate (L/min) 4 Oxygen Delivery Method Bi-pap Weight: 123.1 kg Body Mass Index (BMI) 45.5 Finger Stick Blood Glucose 155 Intake and Output for Last 24 Hours 07/04/18 07/05/18 07/06/18 23:59 23:59 23:59 Intake Total 823 / 823 1952.6 / 1952.6 125.6 / 125.6 Output Total 975 / 975 200 / 200 Balance -152 / -152 1752.6 / 1752.6 125.6 / 125.6 Laboratory Tests Past 24 Hrs 07/05/18 07/05/18 07/05/18 06:30 09:20 09:20 WBC RBC Hgb Hct MCV MCH MCHC RDW RDW Differential Plt Count MPV Neut % (Auto) Absolute Neuts (auto) Total Counted Diff Path Review Reviewed Specimen Type Sample Site pH Bicarbonate Actual POC Total CO2 Base Excess O2 Saturation O2 % ABG pCO2 ABG pO2 Abram Test VBG pH VBG pO2 VBG O2 Sat (Calc) VBG O2 Content VBG Base Excess POC Mix VBG pCO2 Pt Tmp Respiration Rate O2 Delivery Device Liter Flow EPAP IPAP Blood Gas Notified Whom Blood Gas Notified Time Sodium Potassium Chloride Carbon Dioxide Anion Gap BUN Creatinine Estim Creat Clear Calc Est GFR (MDRD) Af Amer Est GFR (MDRD) Non-Af BUN/Creatinine Ratio Glucose Calcium Total Bilirubin AST ALT Alkaline Phosphatase Ammonia 23.0 Total Protein Albumin Globulin Albumin/Globulin Ratio Blood Type A NEGATIVE Antibody Screen NEGATIVE Crossmatch See Detail 07/05/18 07/05/18 07/05/18 09:38 12:23 12:26 WBC RBC Hgb Hct MCV MCH MCHC RDW RDW Differential Plt Count MPV Neut % (Auto) Absolute Neuts (auto) Total Counted Diff Path Review Specimen Type ART MARY MARY Sample Site R Radial pH 7.33 L Bicarbonate Actual 25.2 POC Total CO2 27 Base Excess -1 O2 Saturation 89 L O2 % ABG pCO2 47.6 H ABG pO2 60 L Abram Test POS VBG pH 7.27 L 7.27 L VBG pO2 31 35 VBG O2 Sat (Calc) 51 57 VBG O2 Content 27 27 VBG Base Excess -2 L -2 L POC Mix VBG pCO2 Pt Tmp 54.5 H 54.4 H Respiration Rate O2 Delivery Device Nasal Can Liter Flow 4.0 EPAP IPAP Blood Gas Notified Whom RN Blood Gas Notified Time 938 Sodium Potassium Chloride Carbon Dioxide Anion Gap BUN Creatinine Estim Creat Clear Calc Est GFR (MDRD) Af Amer Est GFR (MDRD) Non-Af BUN/Creatinine Ratio Glucose Calcium Total Bilirubin AST ALT Alkaline Phosphatase Ammonia Total Protein Albumin Globulin Albumin/Globulin Ratio Blood Type Antibody Screen Crossmatch 07/05/18 07/05/18 07/05/18 12:30 12:33 12:36 WBC RBC Hgb Hct MCV MCH MCHC RDW RDW Differential Plt Count MPV Neut % (Auto) Absolute Neuts (auto) Total Counted Diff Path Review Specimen Type MARY ART MARY Sample Site pH 7.29 L Bicarbonate Actual 24.2 POC Total CO2 26 Base Excess -2 O2 Saturation 92 L O2 % ABG pCO2 50.6 H ABG pO2 71 L Abram Test VBG pH 7.28 L 7.28 L VBG pO2 32 34 VBG O2 Sat (Calc) 52 56 VBG O2 Content 27 27 VBG Base Excess -2 L -2 L POC Mix VBG pCO2 Pt Tmp 54.1 H 53.3 H Respiration Rate O2 Delivery Device Liter Flow EPAP IPAP Blood Gas Notified Whom Blood Gas Notified Time Sodium Potassium Chloride Carbon Dioxide Anion Gap BUN Creatinine Estim Creat Clear Calc Est GFR (MDRD) Af Amer Est GFR (MDRD) Non-Af BUN/Creatinine Ratio Glucose Calcium Total Bilirubin AST ALT Alkaline Phosphatase Ammonia Total Protein Albumin Globulin Albumin/Globulin Ratio Blood Type Antibody Screen Crossmatch 07/05/18 07/05/18 07/05/18 12:39 12:45 20:07 WBC RBC Hgb Hct MCV MCH MCHC RDW RDW Differential Plt Count MPV Neut % (Auto) Absolute Neuts (auto) Total Counted Diff Path Review Specimen Type MARY MARY ART Sample Site R Radial pH 7.30 L Bicarbonate Actual 25.1 POC Total CO2 27 Base Excess -1 O2 Saturation 90 L O2 % 30 ABG pCO2 51.6 H ABG pO2 67 L Abram Test POS VBG pH 7.27 L 7.27 L VBG pO2 39 34 VBG O2 Sat (Calc) 64 56 VBG O2 Content 26 27 VBG Base Excess -3 L -2 L POC Mix VBG pCO2 Pt Tmp 52.7 H 55.2 H Respiration Rate 12 O2 Delivery Device Bi / C PAP Liter Flow EPAP 7 IPAP 14 Blood Gas Notified Whom [facility] Blood Gas Notified Time 1951 Sodium Potassium Chloride Carbon Dioxide Anion Gap BUN Creatinine Estim Creat Clear Calc Est GFR (MDRD) Af Amer Est GFR (MDRD) Non-Af BUN/Creatinine Ratio Glucose Calcium Total Bilirubin AST ALT Alkaline Phosphatase Ammonia Total Protein Albumin Globulin Albumin/Globulin Ratio Blood Type Antibody Screen Crossmatch 07/06/18 07/06/18 05:50 05:50 WBC 10.7 RBC 2.92 L Hgb 8.3 L Hct 26.1 L MCV 89.4 MCH 28.4 MCHC 31.8 L RDW 16.3 H RDW Differential 53.3 H Plt Count 364 MPV 9.1 Neut % (Auto) Not Reportable Absolute Neuts (auto) Not Reportable Total Counted Pending Diff Path Review Specimen Type Sample Site pH Bicarbonate Actual POC Total CO2 Base Excess O2 Saturation O2 % ABG pCO2 ABG pO2 Abram Test VBG pH VBG pO2 VBG O2 Sat (Calc) VBG O2 Content VBG Base Excess POC Mix VBG pCO2 Pt Tmp Respiration Rate O2 Delivery Device Liter Flow EPAP IPAP Blood Gas Notified Whom Blood Gas Notified Time Sodium 137 Potassium 3.9 Chloride 102 Carbon Dioxide 27.0 Anion Gap 8 BUN 57 H Creatinine 2.42 H Estim Creat Clear Calc 17.64 Est GFR (MDRD) Af Amer 25 L Est GFR (MDRD) Non-Af 21 L BUN/Creatinine Ratio 23.6 H Glucose 126 H Calcium 8.2 L Total Bilirubin 0.30 AST 19 ALT 22 Alkaline Phosphatase 95 Ammonia Total Protein 6.1 L Albumin 2.8 L Globulin 3.3 Albumin/Globulin Ratio 0.8 L Blood Type Antibody Screen Crossmatch POC Glucose 07/05/18 07/05/18 21:10 16:44 POC Glucose 134 H 175 H Clinical Impression(s) from Imaging Studies Chest X-Ray 07/05/18 09:58 IMPRESSION: New, right medial lung base/right infrahilar consolidation may represent pneumonia. The right hemithorax volume loss manifested by increased elevation of the right hemidiaphragm suggests that this consolidation may contain at least some component of atelectasis. No pneumothorax. Stable cardiomediastinal still silhouette status post CABG. Electronically Signed: Dean Hernadez MD at 10:46 EDT , Service support , Medical Necessity - Tobacco Use Smoking Status: Former smoker Tobacco Use: Non-smoker Assessment/Plan All Active Problems (Last Reviewed 06/28/18 @ 09:50 by Lia Meléndez, [employer]IDE TEACHER-C) Acute respiratory failure with hypoxia (Acute) Respiratory failure with hypoxia (Acute) Acute exacerbation of chronic obstructive pulmonary disease (COPD) (Acute) Bronchospasm (Acute) Viral conjunctivitis (Acute) Allergic conjunctivitis (Acute) Chemosis of conjunctiva (Acute) Bradycardia (Acute) Hypotension (Acute) Decreased responsiveness (Acute) Acute hypoxic respiratory failure (Acute) Acute kidney injury (Acute) Prerenal azotemia (Resolved) RECOMMENDATIONS: 1. Continue diuretic therapy 2. Continue BiPAP rescue overnight 3. Wean oxygen as tolerated 4. No antibiotics or steroids indicated from my perspective 5. Aggressive blood sugar control 6. Haldol as needed for agitation IMPRESSIONS: 1. Acute hypoxic respiratory insufficiency secondary to probable acute on chronic diastolic congestive heart failure Patient with significant wheezing previously, but this appears to be improving. This is likely not to respond to beta agonists given etiology likely has excessive fluid. Patient will benefit from BiPAP therapy overnight. However, a formal sleep study should be completed as an outpatient. High clinical suspicion for undiagnosed obstructive sleep apnea. Given elevated wedge pressure on right heart catheterization, diuresis would be indicated. Did not believe patient has infiltrate and this is likely related to breast tissue. A PA and lateral chest x-ray can be obtained if questionable. However, patient does not have fever or leukocytosis clinically. 2. Acute on chronic diastolic congestive heart failure secondary to postobstructive uropathy with renal failure She appears to have an element of anasarca at this time. Patient's albumin is lower, leading to decreased oncotic pressure. Patient does have significant anasarca on exam. Elevated wedge pressure would suggest that diuresis would be necessary. Patient's cardiac output may paradoxically improve with better starling forces and less distention. 3. Acute kidney injury on chronic kidney disease stage III Suspicion for postobstructive uropathy secondary to urinary retention. Patient does appear to have some improvement with conservative therapy. Renal function slightly worse today. 4. Poorly controlled hypertension Nephrology is currently following. Some medications are contraindicated given patient's renal function. We will continue to monitor closely. Patient is not showing any signs of endorgan damage except for renal dysfunction. 5. Morbid obesity/probable COPD/diabetes mellitus type 2/GERD/anxiety/hyperlipidemia/coronary artery disease Complicates care, management, recovery and prognosis. Do not believe patient is having acute exacerbation of COPD, so no steroids or antibiotics are indicated. Blood sugars are improved today Code Visit Inpatient E&M: 20595 [facility] Hosp L3
[2018-07-06 08:15] LABS: Hypochromasia 1+; Lymphocyte 6 % (19-41); Metamyelocyte 4 % (0-1); Monocyte 1 % (0-10); Myelocyte 9 (0-0); Neutrophil-Segmented 80 % (47-70); Total Cells Counted 100 (MANUAL DIFF)
[2018-07-06 08:17] LABS: Platelet Estimate ADEQUATE (ADEQ)
[2018-07-06 08:18] LABS: Absolute Neutrophil Count 8.6 X10^3/uL (2.0-7.7); Neutrophil # 8.56 X10^3/uL (2.7-7.7)
[2018-07-06 08:19] LABS: Absolute Lymphocyte Count 0.64 X10^3/ul (0.83-4.51); Lymphocyte # 0.64 X10^3/ul (4.0)
[2018-07-06 09:41] LABS: Bedside Glucose 120 mg/dL (70-110)
--- NOTE | 2018-07-06 10:12 | NURSING ---
Attempted x2 unsuccessful with IV restart. Flora, primary nurse attempted x1 without success. Family requests that patient not be poked any further. Flora made aware and spoke with Dr. Mart regarding same.
[2018-07-06] MEDS: Furosemide 500 MG in Empty Viaflex 50 mL 1 EACH CONT INF (10:29)
[2018-07-06] MEDS: amLODIPine 10 MG Tablet PO (10:30)
[2018-07-06] MEDS: Carvedilol 3.125 MG TABLET PO ×2 (10:30→21:47)
[2018-07-06] MEDS: Isosorbide Mononitrate 30 MG Tablet PO (10:30)
[2018-07-06] MEDS: Aspirin E.C. 81 MG Tablet PO (10:30)
[2018-07-06] MEDS: Pantoprazole Sodium 40 MG Tablet PO (10:31)
[2018-07-06] MEDS: Insulin Lispro 100 UNIT/ML INSULN.PEN SQ ×2 (11:33→21:47)
[2018-07-06 11:41] LABS: Bedside Glucose 176 mg/dL (70-110)
--- NOTE | 2018-07-06 13:35 | NURSING ---
NICOLAS wraps applied to BLE
--- NOTE | 2018-07-06 14:33 | CASEMGMT ---
RN CM Note. LTAC referral was suggested by physician as pt may need Bipap on dc. This will not meet LTAC criteria. If Bipap on dc is indicated, pt will benefit from Skilled stay @ SNF. Per Dr. Ferreira's note, recommending formal sleep study to be completed as an outpt. High clinical suspicion for ELAINE. Pt has refused SNF stay at this time. CM will continue to follow and assist with dc planning needs. Opal KATZ RN ACM
[2018-07-06 15:06] LABS: Anion Gap 5 (5-15); BUN 58 mg/dL (7-18); BUN/Creat Ratio 23.7 RATIO (10-20); Calcium,Total 7.9 mg/dL (8.5-10.1); Chloride 102 mmol/L (98-107); Creatinine, Serum 2.45 mg/dL (0.55-1.02); EST Glomerular Filtration Rate 21 mL/min (>60); Est Glom Filt Rate - Afr Amer 25 mL/min (>60); Estimated Creatinine Clearance 17.42 ml/min; Glucose 172 mg/dL (74-106); Potassium 3.8 mmol/L (3.5-5.1); Sodium Level 135 mmol/L (136-145)
[2018-07-06 16:21] LABS: Bedside Glucose 134 mg/dL (70-110)
[2018-07-06] MEDS: Ferrous Sulfate 300 MG/5 ML UDC PO (16:39)
[2018-07-06] MEDS: Acetaminophen 325 MG Tablet 650 MG PO (17:25)
[2018-07-06 19:15] LABS: Albumin, Serum 2.7 g/dL (3.2-5.0); BUN 55 mg/dL (7-18); BUN/Creat Ratio 22.4 RATIO (10-20); Calcium,Total 8.1 mg/dL (8.5-10.1); Chloride 101 mmol/L (98-107); Creatinine, Serum 2.45 mg/dL (0.55-1.02); EST Glomerular Filtration Rate 21 mL/min (>60); Est Glom Filt Rate - Afr Amer 25 mL/min (>60); Estimated Creatinine Clearance 17.42 ml/min; Glucose 172 mg/dL (74-106); Phosphorus 4.7 mg/dL (2.5-4.9); Potassium 3.9 mmol/L (3.5-5.1); Sodium Level 137 mmol/L (136-145)
[2018-07-06] MEDS: Doxazosin 4 MG Tablet 8 MG PO (21:47)
[2018-07-06] MEDS: Atorvastatin Calcium 80 MG Tablet PO (21:48)
[2018-07-06 22:41] LABS: Bedside Glucose 181 mg/dL (70-110)
[2018-07-07] VITALS (22 sets, daily range): BP systolic 141–158; BP diastolic 59–73; PULSE 80–99; RESP 12–20; TEMP 36.4–36.9; O2SAT 94–97
[2018-07-07] MEDS: Ipratropium 0.5 MG/2.5 ML SOLUTION INHALATION ×6 (03:45→23:00)
[2018-07-07 06:20] LABS: Hematocrit 26.9 % (37-47); Hemoglobin 8.2 g/dl (12.0-15.0); Mean Corp Hgb Conc 30.5 g/gl (32-36); Mean Corpuscular Hgb 27.1 pg (27.0-32.0); Mean Corpuscular Volume 88.8 fL (81-99); Mean Platelet Vol. 9.2 fl (6.2-12.0); Platelet Count 379 K/mm3 (150-450); RBC Distribution Width CV 15.9 % (11.6-14.6); RBC Distribution Width SD 49.4 fl (35.1-43.9); Red Blood Count 3.03 M/mm3 (4.2-5.4)
[2018-07-07 06:23] LABS: Differential Indicated MANUAL DIFF; POSITIVE COUNT NO; POSITIVE DIFFERENTIAL YES; POSITIVE MORPHOLOGY NO
[2018-07-07 06:40] LABS: Eosinophil 3 % (0-5); Lymphocyte 16 % (19-41); Metamyelocyte 7 % (0-1); Monocyte 4 % (0-10); Myelocyte 2 (0-0); Neutrophil-Band 5 % (0-5); Neutrophil-Segmented 63 % (47-70); Total Cells Counted 100 (MANUAL DIFF)
[2018-07-07 06:42] LABS: Absolute Lymphocyte Count 1.28 X10^3/ul (0.83-4.51); Absolute Neutrophil Count 6.2 X10^3/uL (2.0-7.7); Lymphocyte # 1.28 X10^3/ul (4.0); Neutrophil # 6.16 X10^3/uL (2.7-7.7)
[2018-07-07 06:43] LABS: Platelet Estimate ADEQUATE (ADEQ)
[2018-07-07 06:44] LABS: Crenated RBC 1+; Polychromasia RARE; Schistocytes RARE
[2018-07-07 06:46] LABS: Anisocytosis 2+
[2018-07-07 06:51] LABS: Anion Gap 9 (5-15); BUN 57 mg/dL (7-18); Calcium,Total 8.1 mg/dL (8.5-10.1); Chloride 102 mmol/L (98-107); Creatinine, Serum 2.19 mg/dL (0.55-1.02); EST Glomerular Filtration Rate 24 mL/min (>60); Est Glom Filt Rate - Afr Amer 28 mL/min (>60); Estimated Creatinine Clearance 19.49 ml/min; Glucose 119 mg/dL (74-106); Potassium 3.3 mmol/L (3.5-5.1); Sodium Level 139 mmol/L (136-145)
[2018-07-07] MEDS: hydrALAZINE 50 MG Tablet 100 MG PO ×3 (06:56→21:31)
[2018-07-07 07:05] LABS: Bedside Glucose 117 mg/dL (70-110)
--- NOTE | 2018-07-07 08:07 | PCM.PN.HOSP ---
Patient Problems: Active and Suspected Problems (Last Reviewed 06/28/18 @ 09:50 by Lia Meléndez NP-Katja) Acute respiratory failure with hypoxia (Acute) Subjective: Patient was seen and examined. She feels much improved, denied any shortness of breath. No chest pain. No confusion or myoclonic jerks seen overnight. Objective: Physical exam: General: Morbidly obese, not pale, not jaundiced, on 3L oxygen HEENT: Atraumatic, PERRLA, EOMI, Normocephalic Oral: Moist Mucosa Neck: Supple Lungs: Diminished Cardiovascular: Regular rate, Regular Rhythm, Normal S1, Normal S2, No murmurs Abdomen: Bowel Sounds Present, Soft, Non Tender, Non-Distended, No Hepato-splenomegaly, Passing Flatus Extremities: Edema - +1-2 Skin: - - mild ecchymosis of left lower leg Musculoskeletal: No Tenderness to Palpation of Joints or Extremities Lymphatic: No Cervical, Supraclavicular, or Inguinal Adenopathy Neurological: Cranial nerves II-XII grossly intact, Neuro grossly intact Vitals/I&O's: Vital Signs Temp Pulse Resp BP Pulse Ox 97.6 F L 89 20 H 148/70 H 94 07/07/18 03:25 07/07/18 07:00 07/07/18 06:51 07/07/18 06:54 07/07/18 06:51 Oxygen Flow Rate (L/min) 3 Oxygen Delivery Method Nasal Cannula Weight: 124.5 kg Body Mass Index (BMI) 45.5 Finger Stick Blood Glucose 155 Intake and Output for Last 24 Hours 07/05/18 07/06/18 07/07/18 23:59 23:59 23:59 Intake Total 1952.6 / 1952.6 1734.2 / 1734.2 130.4 / 130.4 Output Total 200 / 200 2150 / 2150 900 / 900 Balance 1752.6 / 1752.6 -415.8 / -415.8 -769.6 / -769.6 Laboratory Results 07/06/18 05:50: Absolute Neuts (auto) 8.6 H, Absolute Lymphs (auto) 0.64 L, Total Counted 100, Neutrophils % (Manual) 80 H, Lymphocytes % (Manual) 6 L, Monocytes % (Manual) 1, Metamyelocytes % 4 H, Myelocytes % 9 H, Diff Path Review May alexandra, Platelet Estimate ADEQUATE, Hypochromasia 1+ 07/06/18 06:34: POC Glucose 120 H 07/06/18 11:31: POC Glucose 176 H 07/06/18 14:05: Sodium 135 L, Potassium 3.8, Chloride 102, Carbon Dioxide 28.0, Anion Gap 5, BUN 58 H, Creatinine 2.45 H, Estim Creat Clear Calc 17.42, Est GFR (MDRD) Af Amer 25 L, Est GFR (MDRD) Non-Af 21 L, BUN/Creatinine Ratio 23.7 H, Glucose 172 H, Calcium 7.9 L 07/06/18 14:05: Sodium 137, Potassium 3.9, Chloride 101, Carbon Dioxide 26.0, BUN 55 H, Creatinine 2.45 H, Estim Creat Clear Calc 17.42, Est GFR (MDRD) Af Amer 25 L, Est GFR (MDRD) Non-Af 21 L, BUN/Creatinine Ratio 22.4 H, Glucose 172 H, Calcium 8.1 L, Phosphorus 4.7, Albumin 2.7 L 07/06/18 16:15: POC Glucose 134 H 07/06/18 21:44: POC Glucose 181 H 07/07/18 05:24: WBC 8.0, RBC 3.03 L, Hgb 8.2 L, Hct 26.9 L, MCV 88.8, MCH 27.1, MCHC 30.5 L, RDW 15.9 H, RDW Differential 49.4 H, Plt Count 379, MPV 9.2, Neut % (Auto) Not Reportable, Absolute Neuts (auto) 6.2, Absolute Lymphs (auto) 1.28, Total Counted 100, Neutrophils % (Manual) 63, Band Neutrophils % 5, Lymphocytes % (Manual) 16 L, Monocytes % (Manual) 4, Eosinophils % (Manual) 3, Metamyelocytes % 7 H, Myelocytes % 2 H, Diff Path Review May alexandra, Platelet Estimate ADEQUATE, RBC Morphology 1+, Polychromasia RARE, Anisocytosis 2+, Schistocytes RARE 07/07/18 05:24: Sodium 139, Potassium 3.3 L, Chloride 102, Carbon Dioxide 28.0, Anion Gap 9, BUN 57 H, Creatinine 2.19 H, Estim Creat Clear Calc 19.49, Est GFR (MDRD) Af Amer 28 L, Est GFR (MDRD) Non-Af 24 L, BUN/Creatinine Ratio 26.0 H, Glucose 119 H, Calcium 8.1 L 07/07/18 06:49: POC Glucose 117 H Current Medications Acetaminophen (Tylenol) 650 mg PO Q6H PRN PRN PRN Reason: Mild Pain (1-3)/Temp > 100.7 F Last Admin: 07/06/18 17:25 Dose: 650 mg Amlodipine Besylate (Norvasc) 10 mg PO DAILY [facility] Last Admin: 07/06/18 10:30 Dose: 10 mg [facility]ir[facility]rin) [facility] Last Admin: 07/06/18 10:30 Dose: 81 mg Atorvastatin Calcium (Lipitor) 80 mg PO [facility] Last Admin: 07/06/18 21:48 Dose: 80 mg Carvedilol (Coreg) 3.125 mg PO BID [facility] Last Admin: 07/06/18 21:47 Dose: 3.125 mg Dextrose (D50w Syringe) 0 gm IV X1 PRN; Protocol PRN Reason: Hypoglycemia Doxazosin Mesylate (Cardura) 8 mg PO QHS [facility] Last Admin: 07/06/18 21:47 Dose: 8 mg Ferrous Sulfate (Ferrous Sulfate Syrup) 300 mg [facility] Last Admin: 07/06/18 16:39 Dose: 300 mg Gabapentin (Neurontin) 300 mg [facility] Last Admin: 07/05/18 08:59 Dose: 300 mg Gabapentin (Neurontin) 600 mg PO [facility] Last Admin: 07/05/18 21:27 Dose: 600 mg Glucagon () 1 mg IM .X1 PRN PRN Reason: Hypoglycemia Haloperidol Lactate (Haldol) 1 mg IV Q6H PRN PRN PRN Reason: AGITATION Hydralazine HCl (Apresoline) 100 mg PO TID [facility] Last Admin: 07/07/18 06:56 Dose: 100 mg Furosemide 500 mg/ N/A 50 mls @ 1 mls/hr CONT INF .Q50H [facility] Last Admin: 07/06/18 10:29 Dose: 1 mls/hr Potassium Chloride () 10 meq in 100 mls @ 100 mls/hr IV BOLUS Q1H [facility] Stop: 07/07/18 09:59 Insulin Human Lispro (Humalog Kwikpen (Bkc)) 0 unit SQ ACHS [facility]; Protocol Last Admin: 07/07/18 06:57 Dose: Not Given Ipratropium [place] (Atrovent) 0.5 mg INHALATION Q4H.RT [facility] Last Admin: 07/07/18 06:51 Dose: 0.5 mg Isosorbide Mononitrate (Imdur) 30 mg PO DAILY [facility] Last Admin: 07/06/18 10:30 Dose: 30 mg Melatonin (Melatonin) 3 mg PO QHS [facility] Last Admin: 07/05/18 18:45 Dose: 3 mg Nitroglycerin (Nitrostat) 0.4 mg SUBLINGUAL Q5M PRN PRN Reason: CARDIAC/CHEST PAIN Last Admin: 07/03/18 10:25 Dose: 0.4 mg Pantoprazole Sodium (Protonix) 40 mg PO DAILY [facility] Last Admin: 07/06/18 10:31 Dose: 40 mg Potassium Chloride (K-Dur) 20 meq PO BIDCM [facility] Stop: 07/07/18 17:01 Sodium Chloride () 5 - 15 ml IV UD PRN PRN Reason: SALINE FLUSH Last Admin: 07/04/18 21:40 Dose: 10 ml Throat Lozenges (Cepacol Sore Throat Lozenge) 1 lozenge MUCOUS MEM Q2H PRN PRN PRN Reason: Sore throat or cough Medical Necessity - Tobacco Use Smoking Status: Former smoker Tobacco Use: Non-smoker Assessment/Plan All Active Problems (Last Reviewed 06/28/18 @ 09:50 by Lia Meléndez NP-C) Acute respiratory failure with hypoxia (Acute) Respiratory failure with hypoxia (Acute) Acute exacerbation of chronic obstructive pulmonary disease (COPD) (Acute) Bronchospasm (Acute) Viral conjunctivitis (Acute) Allergic conjunctivitis (Acute) Chemosis of conjunctiva (Acute) Bradycardia (Acute) Hypotension (Acute) Decreased responsiveness (Acute) Acute hypoxic respiratory failure (Acute) Acute kidney injury (Acute) Prerenal azotemia (Resolved) 72 year old F with multiple comorbidities including COPD not on home oxygen, recently discharged after a complicated hospital course in which patient was found to be minimally responsive soon after admission and managed in the ICU, intubated, bradycardic, on IV dopamine, transvenous pacemaker. Patient subsequently was extubated, managed on the nursing flow and eventually discharged home with home health. She comes back into the hospital in with progressive shortness of breath and anuria. 1. Myoclonic jerks, symptomatic, likely related to metabolic derangements, resolved 2. Acute delirium, resolved, will continue to monitor her mentation 3. Acute hypoxic respiratory failure secondary to moderate-severe pulmonary hypertension, copd exacerbation, possible right sided heart failure, gradualkly being weaned off oxygen will continue on nasal canula oxygen and Bipap at night and as needed when sleeping. 4. Probable acute on chronic diastolic CHF/ moderate-severe pulmonary Hypertension, present on admission s/p right heart cath findings as above, on lasix drip, good urine output, will continue same 5. KURT on CKD stage 3, likely secondary to pulmo-renal syndrome, improving slightly, on lasix drip, will continue 6. Hypertension, fairly controlled, will continue on home medications 7. Type II DM, blood sugars are better controlled now, off steroids, will continue to hold home metformin, continue with med-high dose insulin sliding scale with Accu-Cheks 8. DVT prophylaxis with heparin subcu Code Visit Inpatient E&M: 12161 Subs Hosp L2
--- NOTE | 2018-07-07 08:27 | PCM.PN.PUL ---
Patient Problems: Active and Suspected Problems (Last Reviewed 06/28/18 @ 09:50 by Lia Meléndez NP-Katja) Acute respiratory failure with hypoxia (Acute) Subjective: Patient is much improved compared to yesterday. Patient did wear BiPAP overnight, but reports improved respiratory status this morning. Some incontinence noted overnight. Son was at the bedside and was updated on patient's current condition. Patient reportedly enjoys bananas, so this was encouraged for electrolyte replacement. - Physical Exam General: Alert, Oriented x3, Cooperative, No apparent distress, - - Morbidly obese. Speaking in full sentences. HEENT: Atraumatic, PERRLA, EOMI, Normocephalic, - - No scleral icterus or injection noted. Oral: Moist Mucosa, No Gingival or Mucosal Lesions/ Ulcerations Neck: Supple, No JVD, No Nodes, Trachea Midline Lungs: No rhonchi, No wheeze, Diminished, Rales Cardiovascular: Regular rate, Regular Rhythm, Normal S1, Normal S2, No murmurs, No rub noted, No Gallop Abdomen: Bowel Sounds Present, Soft, Non Tender, Non-Distended, Obese Extremities: No clubbing, No cyanosis, No edema Skin: No rashes, No breakdown Musculoskeletal: No Tenderness to Palpation of Joints or Extremities Lymphatic: No Cervical, Supraclavicular, or Inguinal Adenopathy Neurological: Cranial nerves II-XII grossly intact, Neuro grossly intact, Motor Exam 5/5 strength throughout Psych/Mental Status: Alert and oriented to time, place, person, mood and affect Vital Signs Temp Pulse Resp BP Pulse Ox 36.4 C L 89 20 H 148/70 H 94 07/07/18 03:25 07/07/18 07:00 07/07/18 06:51 07/07/18 06:54 07/07/18 06:51 Oxygen Flow Rate (L/min) 3 Oxygen Delivery Method Nasal Cannula Weight: 124.5 kg Body Mass Index (BMI) 45.5 Finger Stick Blood Glucose 155 Intake and Output for Last 24 Hours 07/05/18 07/06/18 07/07/18 23:59 23:59 23:59 Intake Total 1952.6 / 1952.6 1734.2 / 1734.2 130.4 / 130.4 Output Total 200 / 200 2150 / 2150 900 / 900 Balance 1752.6 / 1752.6 -415.8 / -415.8 -769.6 / -769.6 Laboratory Tests Past 24 Hrs 07/06/18 07/06/18 07/07/18 14:05 14:05 05:24 WBC 8.0 RBC 3.03 L Hgb 8.2 L Hct 26.9 L MCV 88.8 MCH 27.1 MCHC 30.5 L RDW 15.9 H RDW Differential 49.4 H Plt Count 379 MPV 9.2 Neut % (Auto) Not Reportable Absolute Neuts (auto) 6.2 Absolute Lymphs (auto) 1.28 Total Counted 100 Neutrophils % (Manual) 63 Band Neutrophils % 5 Lymphocytes % (Manual) 16 L Monocytes % (Manual) 4 Eosinophils % (Manual) 3 Metamyelocytes % 7 H Myelocytes % 2 H Diff Path Review May foll Platelet Estimate ADEQUATE RBC Morphology 1+ Polychromasia RARE Anisocytosis 2+ Schistocytes RARE Sodium 135 L 137 Potassium 3.8 3.9 Chloride 102 101 Carbon Dioxide 28.0 26.0 Anion Gap 5 BUN 58 H 55 H Creatinine 2.45 H 2.45 H Estim Creat Clear Calc 17.42 17.42 Est GFR (MDRD) Af Amer 25 L 25 L Est GFR (MDRD) Non-Af 21 L 21 L BUN/Creatinine Ratio 23.7 H 22.4 H Glucose 172 H 172 H Calcium 7.9 L 8.1 L Phosphorus 4.7 Albumin 2.7 L 07/07/18 05:24 WBC RBC Hgb Hct MCV MCH MCHC RDW RDW Differential Plt Count MPV Neut % (Auto) Absolute Neuts (auto) Absolute Lymphs (auto) Total Counted Neutrophils % (Manual) Band Neutrophils % Lymphocytes % (Manual) Monocytes % (Manual) Eosinophils % (Manual) Metamyelocytes % Myelocytes % Diff Path Review Platelet Estimate RBC Morphology Polychromasia Anisocytosis Schistocytes Sodium 139 Potassium 3.3 L Chloride 102 Carbon Dioxide 28.0 Anion Gap 9 BUN 57 H Creatinine 2.19 H Estim Creat Clear Calc 19.49 Est GFR (MDRD) Af Amer 28 L Est GFR (MDRD) Non-Af 24 L BUN/Creatinine Ratio 26.0 H Glucose 119 H Calcium 8.1 L Phosphorus Albumin POC Glucose 07/07/18 07/06/18 07/06/18 06:49 21:44 16:15 POC Glucose 117 H 181 H 134 H 07/06/18 07/06/18 11:31 06:34 POC Glucose 176 H 120 H Medical Necessity - Tobacco Use Smoking Status: Former smoker Tobacco Use: Non-smoker Assessment/Plan All Active Problems (Last Reviewed 06/28/18 @ 09:50 by Lia Meléndez, LISA-C) Acute respiratory failure with hypoxia (Acute) Respiratory failure with hypoxia (Acute) Acute exacerbation of chronic obstructive pulmonary disease (COPD) (Acute) Bronchospasm (Acute) Viral conjunctivitis (Acute) Allergic conjunctivitis (Acute) Chemosis of conjunctiva (Acute) Bradycardia (Acute) Hypotension (Acute) Decreased responsiveness (Acute) Acute hypoxic respiratory failure (Acute) Acute kidney injury (Acute) Prerenal azotemia (Resolved) RECOMMENDATIONS: 1. Continue diuretic therapy 2. Continue BiPAP rescue overnight 3. Wean oxygen as tolerated 4. No antibiotics or steroids indicated from my perspective 5. Aggressive blood sugar control 6. Haldol as needed for agitation IMPRESSIONS: 1. Acute hypoxic respiratory insufficiency secondary to probable acute on chronic diastolic congestive heart failure Patient with significant wheezing previously, but this appears to be improving. This is likely not to respond to beta agonists given etiology likely has excessive fluid. Patient will benefit from BiPAP therapy overnight. However, a formal sleep study should be completed as an outpatient. High clinical suspicion for undiagnosed obstructive sleep apnea. Given elevated wedge pressure on right heart catheterization, diuresis would be indicated. Did not believe patient has infiltrate and this is likely related to breast tissue. A PA and lateral chest x-ray can be obtained if questionable. However, patient does not have fever or leukocytosis clinically. 2. Acute on chronic diastolic congestive heart failure secondary to postobstructive uropathy with renal failure She appears to have an element of anasarca at this time. Patient's albumin is lower, leading to decreased oncotic pressure. Patient does have significant anasarca on exam. Elevated wedge pressure would suggest that diuresis would be necessary. Patient's cardiac output may paradoxically improve with better starling forces and less distention. 3. Acute kidney injury on chronic kidney disease stage III Suspicion for postobstructive uropathy secondary to urinary retention. Patient does appear to have some improvement with conservative therapy. Renal function slightly worse today. 4. Poorly controlled hypertension Improving. Nephrology is currently following. Some medications are contraindicated given patient's renal function. We will continue to monitor closely. Patient is not showing any signs of endorgan damage except for renal dysfunction. 5. Morbid obesity/probable COPD/diabetes mellitus type 2/GERD/anxiety/hyperlipidemia/coronary artery disease/delirium Complicates care, management, recovery and prognosis. Do not believe patient is having acute exacerbation of COPD, so no steroids or antibiotics are indicated. Blood sugars are improved today. Delirium much improved compared to previous. Discussed with the son at length about measures to avoid recurrence. Code Visit Inpatient E&M: 69318 Subs Hosp L3
[2018-07-07] MEDS: Isosorbide Mononitrate 30 MG Tablet PO (09:10)
[2018-07-07] MEDS: Pantoprazole Sodium 40 MG Tablet PO (09:10)
[2018-07-07] MEDS: Ferrous Sulfate 300 MG/5 ML UDC PO (09:10)
[2018-07-07] MEDS: amLODIPine 10 MG Tablet PO (09:10)
[2018-07-07] MEDS: Aspirin E.C. 81 MG Tablet PO (09:11)
[2018-07-07] MEDS: Carvedilol 3.125 MG TABLET PO ×2 (09:11→21:31)
[2018-07-07] MEDS: Potassium Chloride 10mEq/100mL 10 MEQ/100 ML IV.SOLN. 100 MEQ IV BOLUS ×2 (09:22→10:58)
[2018-07-07] MEDS: Insulin Lispro 100 UNIT/ML INSULN.PEN SQ ×3 (11:03→21:32)
[2018-07-07 11:36] LABS: Bedside Glucose 210 mg/dL (70-110)
[2018-07-07] MEDS: Furosemide 500 MG in Empty Viaflex 50 mL 1 EACH CONT INF (12:10)
[2018-07-07] MEDS: Heparin Injection (Vial) 5,000 UNIT/ML VIAL 5000 UNIT SC ×2 (15:16→21:32)
[2018-07-07] MEDS: Ferrous Sulfate 325 MG Tablet PO (17:16)
[2018-07-07 17:20] LABS: Bedside Glucose 188 mg/dL (70-110)
[2018-07-07] MEDS: Doxazosin 4 MG Tablet 8 MG PO (21:31)
[2018-07-07] MEDS: Atorvastatin Calcium 80 MG Tablet PO (21:32)
[2018-07-07 21:56] LABS: Bedside Glucose 168 mg/dL (70-110)
[2018-07-08] VITALS (18 sets, daily range): BP systolic 126–170; BP diastolic 47–67; PULSE 80–106; RESP 12–20; TEMP 36.7–37.4; O2SAT 93–97
[2018-07-08 05:40] LABS: Anion Gap 7 (5-15); BUN 51 mg/dL (7-18); BUN/Creat Ratio 27.4 RATIO (10-20); Calcium,Total 8.5 mg/dL (8.5-10.1); Chloride 104 mmol/L (98-107); Creatinine, Serum 1.86 mg/dL (0.55-1.02); EST Glomerular Filtration Rate 28 mL/min (>60); Est Glom Filt Rate - Afr Amer 34 mL/min (>60); Estimated Creatinine Clearance 22.95 ml/min; Glucose 119 mg/dL (74-106); Potassium 3.5 mmol/L (3.5-5.1); Sodium Level 140 mmol/L (136-145)
[2018-07-08] MEDS: Heparin Injection (Vial) 5,000 UNIT/ML VIAL 5000 UNIT SC ×3 (06:35→22:40)
[2018-07-08] MEDS: hydrALAZINE 50 MG Tablet 100 MG PO ×3 (06:35→22:40)
[2018-07-08 06:45] LABS: Bedside Glucose 115 mg/dL (70-110)
[2018-07-08] MEDS: Ipratropium 0.5 MG/2.5 ML SOLUTION INHALATION ×4 (06:49→19:32)
--- NOTE | 2018-07-08 07:36 | PN_ITS ---
Patient Problems: Active and Suspected Problems (Last Reviewed 06/28/18 @ 09:50 by TREVOR Hou) Acute respiratory failure with hypoxia (Acute) Subjective: The patient was seen and examined at the bedside this morning. Events from the last 24 hours have been reviewed. The patient is currently afebrile, hemodynamically stable and maintaining appropriate oxygen saturations on 2 L/min via nasal cannula. The patient is currently sitting in her bedside recliner. She reports that she was able to ambulate in the hallway earlier in the morning without any significant issue. She denies any resting shortness of breath. Objective: The patient's most recent lab work, culture data and imaging studies have all been personally reviewed. - Physical Exam General: Alert, Oriented x3, Cooperative, No apparent distress HEENT: Atraumatic, PERRLA, Normocephalic Oral: No Gingival or Mucosal Lesions/ Ulcerations Neck: Supple, No Nodes, Trachea Midline Lungs: No rhonchi, No wheeze, No rales, Diminished Cardiovascular: Regular rate, Regular Rhythm, Normal S1, Normal S2, No murmurs Abdomen: Bowel Sounds Present, Soft, Non Tender, Obese Extremities: No clubbing, No cyanosis, No edema Skin: No breakdown Musculoskeletal: No Tenderness to Palpation of Joints or Extremities, No Muscle Wasting Lymphatic: No Cervical, Supraclavicular, or Inguinal Adenopathy Neurological: Cranial nerves II-XII grossly intact, Neuro grossly intact Psych/Mental Status: Alert and oriented to time, place, person, mood and affect Vital Signs Temp Pulse Resp BP Pulse Ox 98.5 F 92 19 H 157/62 H 94 07/08/18 03:10 07/08/18 07:00 07/08/18 03:10 07/08/18 06:23 07/08/18 03:10 Oxygen Flow Rate (L/min) 2 Oxygen Delivery Method Nasal Cannula Weight: 267 lb 3.204 oz Body Mass Index (BMI) 45.5 Finger Stick Blood Glucose 155 Intake and Output for Last 24 Hours 07/06/18 07/07/18 07/08/18 23:59 23:59 23:59 Intake Total 1734.2 / 1734.2 2053.4 / 2053.4 126 / 126 Output Total 2150 / 2150 2350 / 2350 600 / 600 Balance -415.8 / -415.8 -296.6 / -296.6 -474 / -474 Laboratory Tests Past 24 Hrs 07/08/18 05:02 Sodium 140 Potassium 3.5 Chloride 104 Carbon Dioxide 29.0 Anion Gap 7 BUN 51 H Creatinine 1.86 H Estim Creat Clear Calc 22.95 Est GFR (MDRD) Af Amer 34 L Est GFR (MDRD) Non-Af 28 L BUN/Creatinine Ratio 27.4 H Glucose 119 H Calcium 8.5 POC Glucose 07/08/18 07/07/18 07/07/18 06:34 21:26 17:09 POC Glucose 115 H 168 H 188 H 07/07/18 11:02 POC Glucose 210 H Clinical Impression(s) from Imaging Studies Chest X-Ray 07/02/18 06:34 IMPRESSION: 1. No acute cardiopulmonary disease. No significant change. 2. Chronic elevation of the right hemidiaphragm. 3. Borderline cardiomegaly. Previous CABG. at 0776 Reported and signed by: Alphonso Gleason MD Electronically Signed: Alphonso Gleason, at 7:48 EDT Tel , Service support , Renal Ultrasound 07/02/18 17:49 IMPRESSION: Normal ultrasound of the kidneys. Electronically Signed: Mele Khalil DO at 19:59 EDT Tel [phone], Service support , Chest X-Ray 07/04/18 09:42 IMPRESSION: Stable examination. No acute abnormality is seen. Electronically Signed: Peter Bahena, at 15:14 EDT , Service support , Chest X-Ray 07/05/18 09:58 IMPRESSION: New, right medial lung base/right infrahilar consolidation may represent pneumonia. The right hemithorax volume loss manifested by increased elevation of the right hemidiaphragm suggests that this consolidation may contain at least some component of atelectasis. No pneumothorax. Stable cardiomediastinal still silhouette status post CABG. Electronically Signed: Dean Hernadez MD at 10:46 EDT , Service support , Medical Necessity - Tobacco Use Smoking Status: Former smoker Tobacco Use: Non-smoker Assessment/Plan All Active Problems (Last Reviewed 06/28/18 @ 09:50 by Lia Meléndez, LISA-C) Acute respiratory failure with hypoxia (Acute) Respiratory failure with hypoxia (Acute) Acute exacerbation of chronic obstructive pulmonary disease (COPD) (Acute) Bronchospasm (Acute) Viral conjunctivitis (Acute) Allergic conjunctivitis (Acute) Chemosis of conjunctiva (Acute) Bradycardia (Acute) Hypotension (Acute) Decreased responsiveness (Acute) Acute hypoxic respiratory failure (Acute) Acute kidney injury (Acute) Prerenal azotemia (Resolved) RECOMMENDATIONS: 1. Continue diuretic therapy as ordered. 2. Wean supplemental oxygen to maintain saturations at or above 90%. 3. Encourage incentive spirometer use and mobilize patient as tolerated. 4. Outpatient diagnostic polysomnogram recommended. IMPRESSIONS: 1. Acute hypoxic respiratory insufficiency secondary to probable acute on chronic diastolic congestive heart failure The patient does appear to be improving clinically. Continue to wean supplemental oxygen to maintain saturations at or above 90%. Continue to encourage incentive spirometer use and mobilize patient as tolerated. Continue diuretic therapy as tolerated by renal function. Given the high clinical index of suspicion for underlying obstructive sleep apnea, recommend outpatient polysomnogram and initiation of nocturnal Pap therapy, if indicated. 2. Acute on chronic diastolic congestive heart failure secondary to postobstructive uropathy with renal failure Continue medical management with diuretics as noted above. 3. Acute kidney injury on chronic kidney disease stage III Continues to improve with diuretic therapy, which will be continued. Nephrology is currently following. 4. Poorly controlled hypertension Continue current antihypertensive regimen. 5. Morbid obesity/probable COPD/diabetes mellitus type 2/GERD/anxiety/hyperlipidemia/coronary artery disease/delirium Complicates care, management, recovery and prognosis. Okay to continue home medication regimen. This note was generated with [employer] software. It may contain incorrect words, spelling, and punctuation that were not noted in checking the note before signing. Code Visit Inpatient E&M: 77246 Subs Hosp L2
[2018-07-08] MEDS: Isosorbide Mononitrate 30 MG Tablet PO (08:16)
[2018-07-08] MEDS: Carvedilol 3.125 MG TABLET PO ×2 (08:16→22:40)
[2018-07-08] MEDS: amLODIPine 10 MG Tablet PO (08:16)
[2018-07-08] MEDS: Aspirin E.C. 81 MG Tablet PO (08:16)
[2018-07-08] MEDS: Ferrous Sulfate 325 MG Tablet PO ×2 (08:17→15:58)
[2018-07-08] MEDS: Pantoprazole Sodium 40 MG Tablet PO (08:17)
--- NOTE | 2018-07-08 08:39 | PN_ITS ---
Patient Problems: Active and Suspected Problems (Last Reviewed 06/28/18 @ 09:50 by TREVOR Hou) Acute respiratory failure with hypoxia (Acute) Subjective: Patient is a 72-year-old lady with past medical history segment for chronic diastolic congestive heart failure, COPD brought to the emergency department with worsening shortness of breath and assessment of acute hypoxic respiratory failure made admitted for subsequent inpatient management Objective: GENERAL: cooperative HEENT: Atraumatic; EYES; Anicteric, Normal Conjunctiva NECK; supple, normal thyroid, RESPIRATORY: Diminished to auscultation bilaterally, CARDIOVASCULAR: Regular S1 S2, no audible murmurs GI: soft, non-tender, normoactive bowel sounds, : No Renal angle tenderness; EXTREMITIES: Bipedal edema, no clubbing, no cyanosis. MUSCULOSKELETAL: No Joint Tenderness; no muscle waisting NEURO: Awake; no lateralizing signs. SKIN: No Rash PSYCH; Normal affect Vitals/I&O's: Vital Signs Temp Pulse Resp BP Pulse Ox 98.5 F 92 19 H 157/62 H 94 07/08/18 03:10 07/08/18 07:00 07/08/18 03:10 07/08/18 06:23 07/08/18 03:10 Oxygen Flow Rate (L/min) 2 Oxygen Delivery Method Nasal Cannula Weight: 121.2 kg Body Mass Index (BMI) 45.5 Finger Stick Blood Glucose 155 Intake and Output for Last 24 Hours 07/06/18 07/07/18 07/08/18 23:59 23:59 23:59 Intake Total 1734.2 / 1734.2 2053.4 / 2053.4 126 / 126 Output Total 2150 / 2150 2350 / 2350 600 / 600 Balance -415.8 / -415.8 -296.6 / -296.6 -474 / -474 Laboratory Results 07/07/18 11:02: POC Glucose 210 H 07/07/18 17:09: POC Glucose 188 H 07/07/18 21:26: POC Glucose 168 H 07/08/18 05:02: Sodium 140, Potassium 3.5, Chloride 104, Carbon Dioxide 29.0, Anion Gap 7, BUN 51 H, Creatinine 1.86 H, Estim Creat Clear Calc 22.95, Est GFR (MDRD) Af Amer 34 L, Est GFR (MDRD) Non-Af 28 L, BUN/Creatinine Ratio 27.4 H, Glucose 119 H, Calcium 8.5 07/08/18 06:34: POC Glucose 115 H Current Medications Acetaminophen (Tylenol) 650 mg PO Q6H PRN PRN PRN Reason: Mild Pain (1-3)/Temp > 100.7 F Last Admin: 07/06/18 17:25 Dose: 650 mg Amlodipine Besylate (Norvasc) 10 mg PO DAILY [facility] Last Admin: 07/08/18 08:16 Dose: 10 mg [facility] ([facility]) [facility] Last Admin: 07/08/18 08:16 Dose: 81 mg Atorvastatin Calcium (Lipitor) 80 mg PO HS [facility] Last Admin: 07/07/18 21:32 Dose: 80 mg Carvedilol (Coreg) 3.125 mg PO BID [facility] Last Admin: 07/08/18 08:16 Dose: 3.125 mg Dextrose (D50w Syringe) 0 gm IV X1 PRN; Protocol PRN Reason: Hypoglycemia Doxazosin Mesylate (Cardura) 8 mg PO QHS [facility] Last Admin: 07/07/18 21:31 Dose: 8 mg Ferrous Sulfate (Ferrous Sulfate) 325 mg PO 1200,1700 [facility] Last Admin: 07/08/18 08:17 Dose: 325 mg Gabapentin (Neurontin) [facility] Last Admin: 07/05/18 08:59 Dose: 300 mg Gabapentin (Neurontin) 600 mg PO HS [facility] Last Admin: 07/05/18 21:27 Dose: 600 mg Glucagon () 1 mg IM .X1 PRN PRN Reason: Hypoglycemia Heparin Sodium (Porcine) (Heparin Na) 5,000 unit SC Q8 [facility] Last Admin: 07/08/18 06:35 Dose: 5,000 unit Hydralazine HCl (Apresoline) 100 mg PO TID [facility] Last Admin: 07/08/18 06:35 Dose: 100 mg Furosemide 500 mg/ N/A 50 mls @ 1 mls/hr CONT INF .Q50H [facility] Last Admin: 07/07/18 12:10 Dose: 1 mls/hr Insulin Human Lispro (Humalog Kwikpen (Bkc)) 0 unit SQ ACHS [facility]; Protocol Last Admin: 07/08/18 06:36 Dose: Not Given Ipratropium [place] (Atrovent) 0.5 mg INHALATION Q4H.RT [facility] Last Admin: 07/08/18 06:49 Dose: 0.5 mg Isosorbide Mononitrate (Imdur) 30 mg PO DAILY [facility] Last Admin: 07/08/18 08:16 Dose: 30 mg Nitroglycerin (Nitrostat) 0.4 mg SUBLINGUAL Q5M PRN PRN Reason: CARDIAC/CHEST PAIN Last Admin: 07/03/18 10:25 Dose: 0.4 mg Pantoprazole Sodium (Protonix) 40 mg PO DAILY [facility] Last Admin: 07/08/18 08:17 Dose: 40 mg Sodium Chloride () 5 - 15 ml IV UD PRN PRN Reason: SALINE FLUSH Last Admin: 07/04/18 21:40 Dose: 10 ml Throat Lozenges (Cepacol Sore Throat Lozenge) 1 lozenge MUCOUS MEM Q2H PRN PRN PRN Reason: Sore throat or cough Medical Necessity - Tobacco Use Smoking Status: Former smoker Tobacco Use: Non-smoker Assessment/Plan All Active Problems (Last Reviewed 06/28/18 @ 09:50 by Lia Meléndez NP-C) Acute respiratory failure with hypoxia (Acute) Respiratory failure with hypoxia (Acute) Acute exacerbation of chronic obstructive pulmonary disease (COPD) (Acute) Bronchospasm (Acute) Viral conjunctivitis (Acute) Allergic conjunctivitis (Acute) Chemosis of conjunctiva (Acute) Bradycardia (Acute) Hypotension (Acute) Decreased responsiveness (Acute) Acute hypoxic respiratory failure (Acute) Acute kidney injury (Acute) Prerenal azotemia (Resolved) Patient is a 72-year-old lady with past medical history segment for chronic diastolic congestive heart failure, COPD brought to the emergency department with worsening shortness of breath and assessment of acute hypoxic respiratory failure made admitted for subsequent inpatient management 1. Acute hypoxic respiratory failure secondary to combination of COPD with acute exacerbation, severe pulmonary hypertension as well as congestive heart failure patient was managed on BiPAP on admission subsequently weaned off 2. Acute on chronic diastolic congestive heart failure managed with Lasix. Adjusted dose 3. Severe pulmonary hypertension 4. Acute on chronic kidney disease stage III with baseline creatinine ranging from 1.3-1.8. Patient creatinine on admission was 2.59 has since improved with diuresis 5. Essential hypertension: With labile control did continue with patient's home regimen with adjustment of dose as needed 6. Diabetes mellitus type 2 cases including diabetic nephropathy: on metformin at home held on admission placed on Accu-Cheks before meals and at bedtime with sliding scale coverage 7. GERD: PPI 8. Coronary artery disease with previous CABG 9. Morbid obesity with BMI 47.3 10. Suspected obstructive sleep apnea 11. Assessment dyslipidemia 12. Metabolic encephalopathy secondary to acute on chronic kidney failure. Patient level of sensorium improved with improvement in her kidney function 13. Myoclonic jerks: Resolved 14. DVT prophylaxis SC heparin Active Medications Acetaminophen (Tylenol) 650 mg PO Q6H PRN PRN PRN Reason: Mild Pain (1-3)/Temp > 100.7 F Last Admin: 07/06/18 17:25 Dose: 650 mg Amlodipine Besylate (Norvasc) 10 mg PO DAILY [facility] Last Admin: 07/08/18 08:16 Dose: 10 mg Aspirin (Ecotrin) [facility] Last Admin: 07/08/18 08:16 Dose: 81 mg Atorvastatin Calcium (Lipitor) 80 mg PO [facility] Last Admin: 07/07/18 21:32 Dose: 80 mg Carvedilol (Coreg) 3.125 mg PO BID [facility] Last Admin: 07/08/18 08:16 Dose: 3.125 mg Dextrose (D50w Syringe) 0 gm IV X1 PRN; Protocol PRN Reason: Hypoglycemia Doxazosin Mesylate (Cardura) 8 mg PO QHS [facility] Last Admin: 07/07/18 21:31 Dose: 8 mg Ferrous Sulfate (Ferrous Sulfate) 325 mg PO 1200,1700 [facility] Last Admin: 07/08/18 08:17 Dose: 325 mg Gabapentin (Neurontin) 300 [facility] Last Admin: 07/05/18 08:59 Dose: 300 mg Gabapentin (Neurontin) 600 mg PO [facility] Last Admin: 07/05/18 21:27 Dose: 600 mg Glucagon () 1 mg IM .X1 PRN PRN Reason: Hypoglycemia Heparin Sodium (Porcine) (Heparin Na) 5,000 unit SC Q8 [facility] Last Admin: 07/08/18 06:35 Dose: 5,000 unit Hydralazine HCl (Apresoline) 100 mg PO TID [facility] Last Admin: 07/08/18 06:35 Dose: 100 mg Furosemide 500 mg/ N/A 50 mls @ 1 mls/hr CONT INF .Q50H [facility] Last Admin: 07/07/18 12:10 Dose: 1 mls/hr Insulin Human Lispro (Humalog Kwikpen (Bkc)) 0 unit SQ ACHS [facility]; Protocol Last Admin: 07/08/18 06:36 Dose: Not Given Ipratropium [place] (Atrovent) 0.5 mg INHALATION Q4H.RT [facility] Last Admin: 07/08/18 06:49 Dose: 0.5 mg Isosorbide Mononitrate (Imdur) 30 mg PO DAILY [facility] Last Admin: 07/08/18 08:16 Dose: 30 mg Nitroglycerin (Nitrostat) 0.4 mg SUBLINGUAL Q5M PRN PRN Reason: CARDIAC/CHEST PAIN Last Admin: 07/03/18 10:25 Dose: 0.4 mg Pantoprazole Sodium (Protonix) 40 mg PO DAILY [facility] Last Admin: 07/08/18 08:17 Dose: 40 mg Sodium Chloride () 5 - 15 ml IV UD PRN PRN Reason: SALINE FLUSH Last Admin: 07/04/18 21:40 Dose: 10 ml Throat Lozenges (Cepacol Sore Throat Lozenge) 1 lozenge MUCOUS MEM Q2H PRN PRN PRN Reason: Sore throat or cough Code Visit Inpatient E&M: 70871 [facility] Hosp L3
--- NOTE | 2018-07-08 10:29 | PCM.PN.REN ---
Patient Problems: Active and Suspected Problems (Last Reviewed 06/28/18 @ 09:50 by TREVOR Hou) Acute respiratory failure with hypoxia (Acute) Subjective: no new complaints breathing is ok LE edema is better - Physical Exam General: Alert, Oriented x3, Cooperative HEENT: Atraumatic, PERRLA, EOMI, Normocephalic Neck: Supple, No JVD, Negative Carotid Bruits Lungs: Clear to auscultation, Normal air movement Cardiovascular: Regular rate, No murmurs Abdomen: Bowel Sounds Present, Soft, Non Tender Extremities: No edema, Capillary Refill Less than 3 Seconds Skin: No rashes, No breakdown Musculoskeletal: No Tenderness to Palpation of Joints or Extremities Neurological: Cranial nerves II-XII grossly intact Psych/Mental Status: Normal Affect, Appropriate Vital Signs Temp Pulse Resp BP Pulse Ox 98.2 F 97 16 139/64 H 94 07/08/18 09:15 07/08/18 09:15 07/08/18 09:15 07/08/18 09:15 07/08/18 09:15 Oxygen Flow Rate (L/min) 2 Oxygen Delivery Method Nasal Cannula Weight: 121.2 kg Body Mass Index (BMI) 45.5 Finger Stick Blood Glucose 155 Intake and Output for Last 24 Hours 07/06/18 07/07/18 07/08/18 23:59 23:59 23:59 Intake Total 1734.2 / 1734.2 2053.4 / 2053.4 126 / 126 Output Total 2150 / 2150 2350 / 2350 600 / 600 Balance -415.8 / -415.8 -296.6 / -296.6 -474 / -474 Laboratory Tests Past 24 Hrs 07/08/18 05:02 Sodium 140 Potassium 3.5 Chloride 104 Carbon Dioxide 29.0 Anion Gap 7 BUN 51 H Creatinine 1.86 H Estim Creat Clear Calc 22.95 Est GFR (MDRD) Af Amer 34 L Est GFR (MDRD) Non-Af 28 L BUN/Creatinine Ratio 27.4 H Glucose 119 H Calcium 8.5 POC Glucose 07/08/18 07/07/18 07/07/18 06:34 21:26 17:09 POC Glucose 115 H 168 H 188 H 07/07/18 11:02 POC Glucose 210 H Medical Necessity - Tobacco Use Smoking Status: Former smoker Tobacco Use: Non-smoker Assessment/Plan All Active Problems (Last Reviewed 06/28/18 @ 09:50 by Lia Meléndez, REVERSE [employer]IT OPERATOR-C) Acute respiratory failure with hypoxia (Acute) Respiratory failure with hypoxia (Acute) Acute exacerbation of chronic obstructive pulmonary disease (COPD) (Acute) Bronchospasm (Acute) Viral conjunctivitis (Acute) Allergic conjunctivitis (Acute) Chemosis of conjunctiva (Acute) Bradycardia (Acute) Hypotension (Acute) Decreased responsiveness (Acute) Acute hypoxic respiratory failure (Acute) Acute kidney injury (Acute) Prerenal azotemia (Resolved) 1-Acute kidney injury on chronic kidney disease stage III. Baseline creatinine 1.2 mg deciliter patient presented with a creatinine 2.6 mg/dL. UA was benign except for 15 mg/dL protein in the urine. No RBCs no white cell. creatinine is improving with diuresis. 2-hypertension Improved. Bp is acceptable 3-leg edema : overall volume overloaded with moderate pulmonary HTN. decent response to lasix drip. weight went down. edema is better. lasix changed to IV bolus today.
[2018-07-08] MEDS: Insulin Lispro 100 UNIT/ML INSULN.PEN SQ ×2 (11:05→22:41)
[2018-07-08 11:10] LABS: Bedside Glucose 203 mg/dL (70-110)
[2018-07-08 12:52] LABS: Pathologist Review Reviewed
--- NOTE | 2018-07-08 12:53 | PN.CARD_ITS ---
Subjectve: The patient appears to be much more awake and alert today. She appears to be without any obvious twitching or myoclonic jerking sensations as she did this past Sunday. She has no other new concerns of chest discomfort or worsening shortness of breath or dyspnea. She states she is feeling better and would like to go home soon. Objective: Vital Signs Temp Pulse Resp BP Pulse Ox 98.2 F 82 20 H 139/64 H 94 07/08/18 09:15 07/08/18 11:30 07/08/18 11:30 07/08/18 09:15 07/08/18 09:15 Oxygen Flow Rate (L/min) 2 Oxygen Delivery Method Nasal Cannula Weight: 267 lb 3.204 oz Body Mass Index (BMI) 45.5 Finger Stick Blood Glucose 155 Intake and Output for Last 24 Hours 07/06/18 07/07/18 07/08/18 23:59 23:59 23:59 Intake Total 1734.2 / 1734.2 2053.4 / 2053.4 676.9 / 676.9 Output Total 2150 / 2150 2350 / 2350 600 / 600 Balance -415.8 / -415.8 -296.6 / -296.6 76.9 / 76.9 General: Awake, Alert, Oriented x 3, Cooperative, No Acute Distress, Obese HEENT: Atraumatic, Normocephalic, PERRL, EOMI, Sclera Non Icteric Oral: Moist Mucosa Neck: Supple, Good ROM, No JVD Lungs: - - No obvious wheezing at this time. Cardiovascular: Regular Rhythm, Normal S1, Normal S2 Abdomen: Bowel Sounds Present, Soft, Non Tender Extremities: Trace RLE Edema, Trace LLE Edema Psych/Mental Status: Appropriate 07/08/18 05:02: Sodium 140, Potassium 3.5, Chloride 104, Carbon Dioxide 29.0, Anion Gap 7, BUN 51 H, Creatinine 1.86 H, Est GFR (MDRD) Af Amer 34 L, Est GFR (MDRD) Non-Af 28 L, BUN/Creatinine Ratio 27.4 H, Glucose 119 H, Calcium 8.5 Rhythm: Sinus rhythm Medical Necessity - Tobacco Use Smoking Status: Former smoker Tobacco Use: Non-smoker Assessment/Plan 1. CAD status post CABG The patient has undergone noninvasive and invasive evaluation as noted above. This subsequently led to her diagnosis and subsequent coronary artery revascularization therapy with CABG. From a cardiac standpoint there is been no further symptoms of chest discomfort. There is been no abnormal cardiac enzymes. Her ECG demonstrated no acute changes. She has been treated medically with a combination of aspirin, nitrates, beta- blockers, and statins. She has not required any additional noninvasive or invasive studies at this time. 2. Hyperlipidemia The patient will continue lipid-lowering therapy as deemed appropriate. 3. Hypertension The patient should continue medical management with adjustment of medications as deemed appropriate and tolerated. 4. Diabetes mellitus Patient will continue care per internal medicine. 5. COPD exacerbation Patient will continue evaluation care per internal medicine and pulmonology/critical care medicine. 6. Acute renal insufficiency The patient has recurrent acute on chronic renal insufficiency. She is being followed by nephrology. 7. Anemia Her H&H remains low. This may be multifactorial in etiology. However may not be unreasonable to consider PRBCs for her to increase her oxygen carrying capacity especially in light of her cardiovascular condition. 8. Mental status changes This appears to have improved. She will continue to be followed by internal medicine and neurology. 9. Pulmonary hypertension Based upon the patient's right heart cardiac catheterization performed this past Sunday she was noted to have elevated right-sided/pulmonary pressures. This may be secondary to multiple etiologies. Her medications were adjusted. She underwent diuretic therapy. She does appear to be symptomatically improved at this time. She will continue to be followed as deemed appropriate. Comment: The above was discussed and reviewed with the patient, her family members present, and Dr. Leach. This note was generated with [employer] dictation software. It may contain incorrect words, spelling, and punctuation that were not noted in checking the note before signing.
[2018-07-08 12:55] LABS: Pathologist Review Reviewed
[2018-07-08] MEDS: Furosemide 100 MG/10 ML Vial 60 MG IV ×2 (13:25→22:41)
[2018-07-08 16:06] LABS: Bedside Glucose 147 mg/dL (70-110)
[2018-07-08] MEDS: Doxazosin 4 MG Tablet 8 MG PO (22:40)
[2018-07-08] MEDS: Atorvastatin Calcium 80 MG Tablet PO (22:41)
[2018-07-08] MEDS: 0.9% NaCl Peripheral Flush Adult/Peds IV (22:53)
[2018-07-09] VITALS (8 sets, daily range): BP systolic 159–180; BP diastolic 57–71; PULSE 93–99; RESP 13–16; TEMP 36.7–36.8; O2SAT 86–94
[2018-07-09 00:26] LABS: Bedside Glucose 154 mg/dL (70-110)
--- NOTE | 2018-07-09 05:44 | CPS ---
patient refused pap therapy. patient informed it is recommended that she wears pap throughout the night. patient still refused.
--- NOTE | 2018-07-09 06:30 | SLEEP ---
Introduced self to pt and her daughter. Explained I was there to discuss pt's need and dr request to schedule a sleep study. Patient refusing to have or schedule at this time. Daughter asked her to consider, pt maintained refusal. With pt's permission, I explained to her the study procedure as well as why the doctor feels she needs to have one based on her health and re-admissions to hospital. She verbally acknowledges however continues to refuse. I left sleep lab brochure, encouraged her to call if she has questions or decides to schedule test.
[2018-07-09 06:32] LABS: Anion Gap 6 (5-15); BUN 43 mg/dL (7-18); BUN/Creat Ratio 28.3 RATIO (10-20); Calcium,Total 8.7 mg/dL (8.5-10.1); Chloride 104 mmol/L (98-107); Creatinine, Serum 1.52 mg/dL (0.55-1.02); EST Glomerular Filtration Rate 36 mL/min (>60); Est Glom Filt Rate - Afr Amer 43 mL/min (>60); Estimated Creatinine Clearance 28.08 ml/min; Glucose 115 mg/dL (74-106); Potassium 3.2 mmol/L (3.5-5.1); Sodium Level 145 mmol/L (136-145)
[2018-07-09] MEDS: Furosemide 100 MG/10 ML Vial 60 MG IV (06:46)
[2018-07-09] MEDS: Heparin Injection (Vial) 5,000 UNIT/ML VIAL 5000 UNIT SC (06:46)
[2018-07-09] MEDS: hydrALAZINE 50 MG Tablet 100 MG PO (06:47)
[2018-07-09] MEDS: Ipratropium 0.5 MG/2.5 ML SOLUTION INHALATION (07:02)
[2018-07-09 07:10] LABS: Bedside Glucose 122 mg/dL (70-110)
--- NOTE | 2018-07-09 08:27 | DCINST_ITS ---
- Discharge Diagnoses Current Active Problems: Current Active and Chronic Problems (Last Reviewed 06/28/18 @ 09:50 by TREVOR Hou) Acute respiratory failure with hypoxia (Acute) You will use the following diet at home:: Calorie/Carbohydrate Controlled (specify 1200, 1400, etc), Fluid restricted (specify 2000 mls, 1500 mls) - 1999 Discharge Activity: Return to Normal Activity Allergies/Adverse Reactions: Allergies Penicillins Allergy (Verified 07/02/18 06:26) Hives adhesive tape Adverse Reaction (Verified 07/02/18 06:26) Other Medications to take at Discharge Amitriptyline HCl [Elavil] 100 mg PO QHS 04/09/13 Metformin(XR) [Glucophage Xr] 500 mg PO DAILY 12/25/16 Omeprazole 40 mg PO DAILY 12/25/16 Tiotropium Mobile [Spiriva] 1 puff INHALATION DAILY 12/25/16 Aspirin E.C. [Ecotrin] 81 mg PO DAILY 10/25/17 Atorvastatin Calcium 80 mg PO DAILY 10/25/17 Gabapentin [Neurontin] 300 mg PO .COMPLEX 10/25/17 Amlodipine Besylate 10 mg PO DAILY 06/01/18 Carvedilol [Coreg (Beta Nya)] 3.125 mg PO BID #60 tab 06/12/18 hydrALAZINE [Apresoline] 100 mg PO TID #90 tab 06/12/18 Doxazosin Mesylate [Cardura] 8 mg PO QHS #60 tablet 07/09/18 Ferrous Sulfate 325 mg PO 1200,1700 #120 tablet 07/09/18 Furosemide [Lasix] 40 mg PO BID@1000,1800 #120 tablet 07/09/18 Isosorbide Mononitrate [Imdur] 30 mg PO DAILY #60 tablet 07/09/18 Potassium Chloride 20 meq PO DAILY #60 tab.er.prt 07/09/18 The following prescriptions were given: Doxazosin Mesylate [Cardura] 8 mg PO QHS #60 tablet Ferrous Sulfate 325 mg PO 1200,1700 #120 tablet Furosemide [Lasix] 40 mg PO BID@1000,1800 #120 tablet Isosorbide Mononitrate [Imdur] 30 mg PO DAILY #60 tablet Potassium Chloride 20 meq PO DAILY #60 tab.er.prt Orders to be completed after discharge: Physical Therapy Evaluation Facility: [facility], Location: [facility] Primary Care Physician: Levi Laird MD [Primary Care Provider] - Please follow up with your Primary Care Physician in: [place] 5-7 DAYS Test Results: Test results from this visit will be discussed in further detail at your follow- up appointment, if applicable. Please Follow Up With: Alex Clarke MD When: IN 2-4 WEEKS Please Follow Up With: Evert Waite MD When: IN 2-4 WEEKS Proposed Discharge Date: 07/09/18
--- NOTE | 2018-07-09 08:55 | PN_ITS ---
Patient Problems: Active and Suspected Problems (Last Reviewed 06/28/18 @ 09:50 by TREVOR Hou) Acute respiratory failure with hypoxia (Acute) Subjective: The patient was seen and examined at the bedside this morning. Events from the last 24 hours have been reviewed. The patient is currently afebrile, hemodynamically stable and maintaining appropriate oxygen saturations on 2 L/min via nasal cannula. With ambulation, the patient did require 3 L/min. Despite recommendations to proceed with a polysomnogram, the patient refused to undergo testing. Objective: The patient's most recent lab work, culture data and imaging studies have all been personally reviewed. - Physical Exam General: Alert, Cooperative, No apparent distress HEENT: Atraumatic, PERRLA, Normocephalic Oral: No Gingival or Mucosal Lesions/ Ulcerations Neck: Supple, No Nodes, Trachea Midline Lungs: No rhonchi, No wheeze, No rales, Diminished Cardiovascular: Regular rate, Regular Rhythm, Normal S1, Normal S2, No murmurs Abdomen: Bowel Sounds Present, Soft, Non Tender, Obese Extremities: No clubbing, No cyanosis, No edema Skin: No breakdown Musculoskeletal: No Tenderness to Palpation of Joints or Extremities, No Muscle Wasting Lymphatic: No Cervical, Supraclavicular, or Inguinal Adenopathy Neurological: Cranial nerves II-XII grossly intact, Neuro grossly intact Psych/Mental Status: Alert and oriented to time, place, person, mood and affect Vital Signs Temp Pulse Resp BP Pulse Ox 98.3 F 96 16 180/58 H 94 07/09/18 02:42 07/09/18 07:02 07/09/18 07:02 07/09/18 06:45 07/09/18 07:02 Oxygen Flow Rate (L/min) 2 Oxygen Delivery Method Nasal Cannula Weight: 260 lb 9.382 oz Body Mass Index (BMI) 45.5 Finger Stick Blood Glucose 155 Intake and Output for Last 24 Hours 07/07/18 07/08/18 07/09/18 23:59 23:59 23:59 Intake Total 2053.4 / 2053.4 1464.4 / 1464.4 96 / 96 Output Total 2350 / 2350 600 / 600 750 / 750 Balance -296.6 / -296.6 864.4 / 864.4 -654 / -654 Laboratory Tests Past 24 Hrs 07/06/18 07/07/18 07/09/18 05:50 05:24 05:32 WBC RBC Hgb Hct MCV MCH MCHC RDW RDW Differential Plt Count Diff Path Review Reviewed Reviewed Sodium 145 Potassium 3.2 L Chloride 104 Carbon Dioxide 35.0 H Anion Gap 6 BUN 43 H Creatinine 1.52 H Estim Creat Clear Calc 28.08 Est GFR (MDRD) Af Amer 43 L Est GFR (MDRD) Non-Af 36 L BUN/Creatinine Ratio 28.3 H Glucose 115 H Calcium 8.7 07/09/18 05:32 WBC Pending RBC Pending Hgb Pending Hct Pending MCV Pending MCH Pending MCHC Pending RDW Pending RDW Differential Pending Plt Count Pending Diff Path Review Sodium Potassium Chloride Carbon Dioxide Anion Gap BUN Creatinine Estim Creat Clear Calc Est GFR (MDRD) Af Amer Est GFR (MDRD) Non-Af BUN/Creatinine Ratio Glucose Calcium POC Glucose 07/09/18 07/08/18 07/08/18 06:44 22:35 15:56 POC Glucose 122 H 154 H 147 H 07/08/18 11:04 POC Glucose 203 H Clinical Impression(s) from Imaging Studies Chest X-Ray 07/02/18 06:34 IMPRESSION: 1. No acute cardiopulmonary disease. No significant change. 2. Chronic elevation of the right hemidiaphragm. 3. Borderline cardiomegaly. Previous CABG. at 0749 Reported and signed by: Alphonso Gleason MD Electronically Signed: Alphonso Gleason, at 7:48 EDT Tel , Service support , Renal Ultrasound 07/02/18 17:49 IMPRESSION: Normal ultrasound of the kidneys. Electronically Signed: Mele Khalil DO at 19:59 EDT Tel [phone], Service support , Chest X-Ray 07/04/18 09:42 IMPRESSION: Stable examination. No acute abnormality is seen. Electronically Signed: Peter Bahena, at 15:14 EDT , Service support , Chest X-Ray 07/05/18 09:58 IMPRESSION: New, right medial lung base/right infrahilar consolidation may represent pneumonia. The right hemithorax volume loss manifested by increased elevation of the right hemidiaphragm suggests that this consolidation may contain at least some component of atelectasis. No pneumothorax. Stable cardiomediastinal still silhouette status post CABG. Electronically Signed: Dean Hernadez MD at 10:46 EDT , Service support , Medical Necessity - Tobacco Use Smoking Status: Former smoker Tobacco Use: Non-smoker Assessment/Plan All Active Problems (Last Reviewed 06/28/18 @ 09:50 by Lia Meléndez, LISA-C) Acute respiratory failure with hypoxia (Acute) Respiratory failure with hypoxia (Acute) Acute exacerbation of chronic obstructive pulmonary disease (COPD) (Acute) Bronchospasm (Acute) Viral conjunctivitis (Acute) Allergic conjunctivitis (Acute) Chemosis of conjunctiva (Acute) Bradycardia (Acute) Hypotension (Acute) Decreased responsiveness (Acute) Acute hypoxic respiratory failure (Acute) Acute kidney injury (Acute) Prerenal azotemia (Resolved) RECOMMENDATIONS: 1. Continue diuretic therapy as ordered. 2. Wean supplemental oxygen to maintain saturations at or above 90%. 3. Encourage incentive spirometer use and mobilize patient as tolerated. 4. Pursue outpatient sleep study if the patient changes her mind regarding testing. IMPRESSIONS: 1. Acute hypoxic respiratory insufficiency secondary to probable acute on chronic diastolic congestive heart failure The patient does appear to be improving clinically. Continue to wean supplemental oxygen to maintain saturations at or above 90%. Continue to encourage incentive spirometer use and mobilize patient as tolerated. Continue diuretic therapy as tolerated by renal function. Given the high clinical index of suspicion for underlying obstructive sleep apnea, recommend outpatient polysomnogram and initiation of nocturnal Pap therapy, if indicated. 2. Acute on chronic diastolic congestive heart failure secondary to postobstructive uropathy with renal failure Continue medical management with diuretics as noted above. 3. Acute kidney injury on chronic kidney disease stage III Continues to improve with diuretic therapy, which will be continued. Nephrology is currently following. 4. Poorly controlled hypertension Continue current antihypertensive regimen. 5. Morbid obesity/probable COPD/diabetes mellitus type 2/GERD/anxiety/hyperlipidemia/coronary artery disease/delirium Complicates care, management, recovery and prognosis. Okay to continue home medication regimen. This note was generated with [employer] dictation software. It may contain incorrect words, spelling, and punctuation that were not noted in checking the note before signing. Code Visit Inpatient E&M: 12983 Subs Hosp L2
[2018-07-09 09:00] LABS: Hematocrit 26.9 % (37-47); Hemoglobin 8.5 g/dl (12.0-15.0); Mean Corp Hgb Conc 31.6 g/gl (32-36); Mean Corpuscular Hgb 28.1 pg (27.0-32.0); Mean Corpuscular Volume 89.1 fL (81-99); Platelet Count 387 K/mm3 (150-450); RBC Distribution Width CV 16.5 % (11.6-14.6); RBC Distribution Width SD 53.7 fl (35.1-43.9); Red Blood Count 3.02 M/mm3 (4.2-5.4)
[2018-07-09 09:02] LABS: Scan Indicated on CBC? Y/N NO
--- NOTE | 2018-07-09 09:10 | CASEMGMT ---
Addendum entered by Royal Lew 07/09/18 10:27: Discharge summary w/documentation stating pt's need for Home O2 faxed to [employer]. Original Note: RANDY MONTALVO NOTE: Informed that pt no longer wishes to have HHC services upon discharge and that she wants to do Out-pt therapy. To room to talk with pt and daughter. They both confirm pt no longer wishes to receive HHC services and wants to do Out-pt therapy. They stated they are not sure which out-pt location they want her to go to yet but daughter states it will most likely be at a location in [place]. Provided phone numbers to [employer] and [facility]. Pt and daughter given script for Out-pt PT and made aware they can call to location of their choice once they decide to make arrangements/schedule appts and discuss pt's financial obligation with them. Discussed Home O2 and they are aware pt qualifies for home O2. They confirm they have no preference of DME company. Call placed to Prema @ [facility]. She was notified that pt is discharging to home today and also that she is no longer wanting to receive HHC services. Home O2 testing has been completed. Pt qualifies for Home O2. Script for O2 obtained from Dr Leach and faxed to [employer] along with demographics and insurance info. Call placed to [employer] and spoke with Melanie. She was made aware pt is discharging today. Discussed sleep studies/BIPAP with pt. Pt confirms she does not want sleep studies done at this time. Pt and family made aware if she changes her mind in the future/decides she would like to have sleep studies done, to follow up with Dr Aldrich about this. They voice understanding. Dr Aldrich aware. Amanuel KATZ RN, CM
[2018-07-09] MEDS: Aspirin E.C. 81 MG Tablet PO (09:15)
[2018-07-09] MEDS: Isosorbide Mononitrate 30 MG Tablet PO (09:15)
[2018-07-09] MEDS: Pantoprazole Sodium 40 MG Tablet PO (09:15)
[2018-07-09] MEDS: Carvedilol 3.125 MG TABLET PO (09:15)
[2018-07-09] MEDS: amLODIPine 10 MG Tablet PO (09:15)
[2018-07-09] MEDS: Ferrous Sulfate 325 MG Tablet PO (09:16)
--- NOTE | 2018-07-09 10:14 | PCM.DC.SUM ---
Discharge Date and Diagnosis - Problem List Patient Problems: Active and Suspected Problems (Last Reviewed 06/28/18 @ 09:50 by TREVOR Hou) Acute respiratory failure with hypoxia (Acute) Date of Admission: 07/02/18 Date of Discharge: 07/09/18 - Primary Discharge Diagnosis Active and Suspected Problems (Last Reviewed 06/28/18 @ 09:50 by TREVOR Hou) Acute respiratory failure with hypoxia (Acute) - Secondary Discharge Diagnosis Chronic Problems (Last Reviewed 06/28/18 @ 09:50 by TREVOR Hou) HTN (hypertension) (Chronic) Mitral insufficiency (Chronic) Tricuspid insufficiency (Chronic) Pulmonary hypertension (Chronic) Morbid obesity with BMI of 40.0-44.9, adult (Chronic) Sleep-disordered breathing (Chronic) CAD (coronary artery disease) (Chronic) NATHAN to the LAD, and SVG to the diagonal branch, and SVG to the LCx system, and an SVG to the RCA on 04/16/2013 at [facility] with Dr. Fields H/O four vessel coronary artery bypass graft (Chronic) Dyslipidemia (Chronic) COPD (chronic obstructive pulmonary disease) (Chronic) Diabetes mellitus type 2 in obese (Chronic) Hospital Course and Treatment Imaging Results: Clinical Impression(s) from Imaging Studies Chest X-Ray 07/02/18 06:34 IMPRESSION: 1. No acute cardiopulmonary disease. No significant change. 2. Chronic elevation of the right hemidiaphragm. 3. Borderline cardiomegaly. Previous CABG. at 0749 Reported and signed by: Alphonso Gleason MD Electronically Signed: Alphonso Gleason, at 7:48 EDT Tel , Service support , Renal Ultrasound 07/02/18 17:49 IMPRESSION: Normal ultrasound of the kidneys. Electronically Signed: Mele Khalil DO at 19:59 EDT Tel [phone], Service support , Chest X-Ray 07/04/18 09:42 IMPRESSION: Stable examination. No acute abnormality is seen. Electronically Signed: Peter Josef, at 15:14 EDT , Service support , Chest X-Ray 07/05/18 09:58 IMPRESSION: New, right medial lung base/right infrahilar consolidation may represent pneumonia. The right hemithorax volume loss manifested by increased elevation of the right hemidiaphragm suggests that this consolidation may contain at least some component of atelectasis. No pneumothorax. Stable cardiomediastinal still silhouette status post CABG. Electronically Signed: Dean Hernadez MD at 10:46 EDT , Service support , Operations: None Summary of Care Provided: Patient is a 72-year-old lady with past medical history segment for chronic diastolic congestive heart failure, COPD brought to the emergency department with worsening shortness of breath and assessment of acute hypoxic respiratory failure made admitted for subsequent inpatient management 1. Acute hypoxic respiratory failure secondary to combination of COPD with acute exacerbation, severe pulmonary hypertension as well as congestive heart failure patient was managed on BiPAP on admission subsequently weaned off patient condition did stabilize after 10 days of hospitalization. Patient was assessed for home O2 to her discharge which she did qualify. Patient will need portability since is active in the community as well as at home. 2. Acute on chronic diastolic congestive heart failure managed with Lasix. Echo obtained on 06/03/2018 demonstrated ejection fraction of 60% 3. Severe pulmonary hypertension 4. Acute on chronic kidney disease stage III with baseline creatinine ranging from 1.3-1.8. Patient creatinine on admission was 2.59 has since improved with diuresis 5. Essential hypertension: With labile control did continue with patient's home regimen with adjustment of dose as needed 6. Diabetes mellitus type 2 cases including diabetic nephropathy: on metformin at home held on admission placed on Accu-Cheks before meals and at bedtime with sliding scale coverage 7. GERD: PPI 8. Coronary artery disease with previous CABG 9. Morbid obesity with BMI 47.3 10. Suspected obstructive sleep apnea 11. Assessment dyslipidemia 12. Metabolic encephalopathy secondary to acute on chronic kidney failure. Patient level of sensorium improved with improvement in her kidney function 13. Myoclonic jerks: Resolved 14. DVT prophylaxis SC heparin Patient Problems: Active and Suspected Problems (Last Reviewed 06/28/18 @ 09:50 by TREVOR Hou) Acute respiratory failure with hypoxia (Acute) Objective: GENERAL: cooperative HEENT: Atraumatic; EYES; Anicteric, NECK; supple, normal thyroid, RESPIRATORY: Diminished to auscultation bilaterally, CARDIOVASCULAR: Regular S1 S2, GI: soft, non-tender, normoactive bowel sounds, : No Renal angle tenderness; NEURO: Awake; SKIN: No Rash PSYCH; Normal affect - Physical Exam Vital Signs Temp Pulse Resp BP Pulse Ox 98.0 F 99 16 162/71 H 94 07/09/18 09:15 07/09/18 09:15 07/09/18 09:15 07/09/18 09:15 07/09/18 09:15 Oxygen Flow Rate (L/min) [ 3 AMBULATION with Oxygen] Oxygen Flow Rate (L/min) [ 3 AMBULATING on Room Air] Oxygen Flow Rate (L/min) 2 Oxygen Delivery Method Nasal Cannula Weight: 118.2 kg Body Mass Index (BMI) 45.5 Finger Stick Blood Glucose 155 Intake and Output for Last 24 Hours 07/07/18 07/08/18 07/09/18 23:59 23:59 23:59 Intake Total 2053.4 / 2053.4 1464.4 / 1464.4 96 / 96 Output Total 2350 / 2350 600 / 600 750 / 750 Balance -296.6 / -296.6 864.4 / 864.4 -654 / -654 Laboratory Tests Past 24 Hrs 07/06/18 07/07/18 07/09/18 05:50 05:24 05:32 WBC RBC Hgb Hct MCV MCH MCHC RDW RDW Differential Plt Count MPV Diff Path Review Reviewed Reviewed Sodium 145 Potassium 3.2 L Chloride 104 Carbon Dioxide 35.0 H Anion Gap 6 BUN 43 H Creatinine 1.52 H Estim Creat Clear Calc 28.08 Est GFR (MDRD) Af Amer 43 L Est GFR (MDRD) Non-Af 36 L BUN/Creatinine Ratio 28.3 H Glucose 115 H Calcium 8.7 07/09/18 05:32 WBC 9.0 RBC 3.02 L Hgb 8.5 L Hct 26.9 L MCV 89.1 MCH 28.1 MCHC 31.6 L RDW 16.5 H RDW Differential 53.7 H Plt Count 387 MPV 9.0 Diff Path Review Sodium Potassium Chloride Carbon Dioxide Anion Gap BUN Creatinine Estim Creat Clear Calc Est GFR (MDRD) Af Amer Est GFR (MDRD) Non-Af BUN/Creatinine Ratio Glucose Calcium POC Glucose 07/09/18 07/08/18 07/08/18 06:44 22:35 15:56 POC Glucose 122 H 154 H 147 H 07/08/18 11:04 POC Glucose 203 H Discharge Diet: 8 Cup Fluid Restriciton Discharge Activity: Return to Normal Activity Home Medications: Medications to take at Discharge Amitriptyline HCl [Elavil] 100 mg PO QHS 04/09/13 Metformin(XR) [Glucophage Xr] 500 mg PO DAILY 12/25/16 Omeprazole 40 mg PO DAILY 12/25/16 Tiotropium [place] [Spiriva] 1 puff INHALATION DAILY 12/25/16 Aspirin E.C. [Ecotrin] 81 mg PO DAILY 10/25/17 Atorvastatin Calcium 80 mg PO DAILY 10/25/17 Gabapentin [Neurontin] 300 mg PO .COMPLEX 10/25/17 Amlodipine Besylate 10 mg PO DAILY 06/01/18 Carvedilol [Coreg (Beta Nya)] 3.125 mg PO BID #60 tab 06/12/18 hydrALAZINE [Apresoline] 100 mg PO TID #90 tab 06/12/18 Doxazosin Mesylate [Cardura] 8 mg PO QHS #60 tablet 07/09/18 Ferrous Sulfate 325 mg PO 1200,1700 #120 tablet 07/09/18 Furosemide [Lasix] 40 mg PO BID@1000,1800 #120 tablet 07/09/18 Isosorbide Mononitrate [Imdur] 30 mg PO DAILY #60 tablet 07/09/18 Potassium Chloride 20 meq PO DAILY #60 tab.er.prt 07/09/18 Following Prescrptions Were Given to Patient: Doxazosin Mesylate [Cardura] 8 mg PO QHS #60 tablet Ferrous Sulfate 325 mg PO 1200,1700 #120 tablet Furosemide [Lasix] 40 mg PO BID@1000,1800 #120 tablet Isosorbide Mononitrate [Imdur] 30 mg PO DAILY #60 tablet Potassium Chloride 20 meq PO DAILY #60 tab.er.prt Other Amb Orders: Physical Therapy Evaluation Facility: [facility], Location: [facility] Primary Care Physician: Levi Laird MD [Primary Care Provider] - Please follow up with your Primary Care Physician in: IN 5-7 DAYS Please Follow Up With: Alex Clarke MD When: IN 2-4 WEEKS Please Follow Up With: Evert Waite MD When: IN 2-4 WEEKS Please Follow Up With: Levi Laird MD Disposition: Home with Home Health Minutes spent on discharge:: 35 Patient Condition:: Stable Medical Necessity - Tobacco Use Smoking Status: Former smoker Tobacco Use: Non-smoker Meaningful Use Info Meaningful Use Diagnoses (Choose all that apply): CHF - CHF NICOLAS/ARB ordered at discharge?: No Reason NICOLAS/ARB not ordered?: Worsening renal disease Documented LVEF (%): 60 Code Visit Inpatient E&M: 29086 Disch Hosp
--- NOTE | 2018-07-09 13:24 | PCM.PN.CARD ---
Subjectve: The patient was evaluated earlier this morning. She had been up and ambulating in the hallway. She had no complaints of acute chest discomfort or worsening shortness of breath or dyspnea. There was no obvious audible wheezing. Objective: Vital Signs Temp Pulse Resp BP Pulse Ox 98.0 F 99 16 162/71 H 94 07/09/18 09:15 07/09/18 09:15 07/09/18 09:15 07/09/18 09:15 07/09/18 09:15 Oxygen Flow Rate (L/min) [ 3 AMBULATION with Oxygen] Oxygen Flow Rate (L/min) [ 3 AMBULATING on Room Air] Oxygen Flow Rate (L/min) 2 Oxygen Delivery Method Nasal Cannula Weight: 260 lb 9.382 oz Body Mass Index (BMI) 45.5 Finger Stick Blood Glucose 155 Intake and Output for Last 24 Hours 07/07/18 07/08/18 07/09/18 23:59 23:59 23:59 Intake Total 2053.4 / 2053.4 1464.4 / 1464.4 96 / 96 Output Total 2350 / 2350 600 / 600 750 / 750 Balance -296.6 / -296.6 864.4 / 864.4 -654 / -654 General: Awake, Alert, Oriented x 3, Cooperative, No Acute Distress, Obese HEENT: Atraumatic, Normocephalic, PERRL, EOMI, Sclera Non Icteric Oral: Moist Mucosa Neck: Supple, Good ROM, No JVD Lungs: Clear to auscultation Cardiovascular: Regular Rhythm, Normal S1, Normal S2 Abdomen: Bowel Sounds Present, Soft, Non Tender, Obese Extremities: Trace RLE Edema, Trace LLE Edema Psych/Mental Status: Appropriate 07/09/18 05:32: Sodium 145, Potassium 3.2 L, Chloride 104, Carbon Dioxide 35.0 H, Anion Gap 6, BUN 43 H, Creatinine 1.52 H, Est GFR (MDRD) Af Amer 43 L, Est GFR (MDRD) Non-Af 36 L, BUN/Creatinine Ratio 28.3 H, Glucose 115 H, Calcium 8.7 07/09/18 05:32: WBC 9.0, RBC 3.02 L, Hgb 8.5 L, Hct 26.9 L, MCV 89.1, MCH 28.1, MCHC 31.6 L, RDW 16.5 H, RDW Differential 53.7 H, Plt Count 387, MPV 9.0 Rhythm: Sinus rhythm Medical Necessity - Tobacco Use Smoking Status: Former smoker Tobacco Use: Non-smoker Assessment/Plan 1. CAD status post CABG The patient has undergone noninvasive and invasive evaluation as noted above. This subsequently led to her diagnosis and subsequent coronary artery revascularization therapy with CABG. From a cardiac standpoint there is been no further symptoms of chest discomfort. There is been no abnormal cardiac enzymes. Her ECG demonstrated no acute changes. She has been treated medically with a combination of aspirin, nitrates, beta-blockers, and statins. She has not required any additional noninvasive or invasive studies at this time. 2. Hyperlipidemia The patient will continue lipid-lowering therapy as deemed appropriate. 3. Hypertension The patient should continue medical management with adjustment of medications as deemed appropriate and tolerated. 4. Diabetes mellitus Patient will continue care per internal medicine. 5. COPD exacerbation Her pulmonary status does appear to be improved. 6. Acute renal insufficiency The patient has recurrent acute on chronic renal insufficiency. She is being followed by nephrology. Her creatinine level has decreased. 7. Anemia Her H&H should be followed by her PCP in the future. Depending upon her laboratory findings she may or may not need future therapy with additional PRBCs. 8. Mental status changes This appears to have improved. She will continue to be followed by internal medicine and neurology. 9. Pulmonary hypertension Based upon the patient's right heart cardiac catheterization performed this past Sunday she was noted to have elevated right-sided/pulmonary pressures. This may be secondary to multiple etiologies. Her medications were adjusted. She underwent diuretic therapy. She does appear to be symptomatically improved at this time. She will continue to be followed as deemed appropriate. Comment: The above was discussed and reviewed with the patient, her family members present, and Dr. Leach. This note was generated with [employer] software. It may contain incorrect words, spelling, and punctuation that were not noted in checking the note before signing.
--- NOTE | 2018-07-10 14:59 | CASEMGMT ---
Addendum entered by Royal Lew 07/10/18 15:28: Call placed to Dr Aldrich's office and spoke with nurse. Nurse informed RN CM pt can continue with the Albuter nebulizer tx's every 4 hrs PRN or the Albuterol rescue Inhaler q 4 hrs PRN, but that since they are the same medication, pt/family should be aware they pt can use only one or the other q 4 hrs. Call placed back to Doris, pt's daughter, and she was informed of Dr Aldrich's nurses' instruction. She voiced understanding. Doris also states the Home oxygen from [employer] was delivered. Original Note: RN CM Discharge Follow-Up Phone Call. Lace: 14 Strata: 4 Discharge Date: 07/09/18 Adm Dx: Acute Resp Failure/COPD exac, KURT. Call to pt to inquire about how she has been doing since being discharged from the hospital. Daughter, Doris, answered and spoke with this RN CM and answered questions. Doris states pt has been doing okay since she returned home. She states pt did have bloody nose today, which has stopped, but that now states, her nose is plugged. She states they called pt's ENT and was instructed to apply Neosporin to nostril edges and they have done that. She states she does have a question about the nebulizer tx's and if pt can continue to use the nebulizers as she had prior to her hospitalization, stating they were unsure since they were not on the discharge instructions. She states pt sees Dr Aldrich and they have left messages with the office but have not heard back from them. Doris informed that this RN CM could do a courtesy call to Dr Aldrich's office to inquire about this. Doris states she does not have any further questions about the discharge instructions, other medications, or follow-up appts. Amanuel KATZ RN, CM
== END 2018-07-09 11:19 | disposition home or self-care (01) | DRG 286 ==
LOC: ED 06:38 → PCU 08:13
PROVIDERS: Internal Medicine Critical Care Medicine; Internal Medicine Nephrology; Admitting Provider Internal Medicine; Emergency Provider Emergency Medicine; Family Provider Family Medicine; PCP Family Medicine; Visit Provider Internal Medicine
DX: I13.0 Hypertensive heart and chronic kidney disease with heart failure and stage 1 through stage 4 chronic kidney disease, or unspecified chronic kidney disease (principal); J96.01 Acute respiratory failure with hypoxia; I50.33 Acute on chronic diastolic (congestive) heart failure; G93.41 Metabolic encephalopathy; J18.9 Pneumonia, unspecified organism; N17.9 Acute kidney failure, unspecified; Z68.42 Body mass index [BMI] 45.0-49.9, adult; J44.1 Chronic obstructive pulmonary disease with (acute) exacerbation; J44.0 Chronic obstructive pulmonary disease with (acute) lower respiratory infection; E66.01 Morbid (severe) obesity due to excess calories; D64.9 Anemia, unspecified; I27.20 Pulmonary hypertension, unspecified; E11.22 Type 2 diabetes mellitus with diabetic chronic kidney disease; N18.3 Chronic kidney disease, stage 3 (moderate); I25.10 Atherosclerotic heart disease of native coronary artery without angina pectoris; G25.3 Myoclonus; R33.9 Retention of urine, unspecified; I07.1 Rheumatic tricuspid insufficiency; I34.0 Nonrheumatic mitral (valve) insufficiency; K21.9 Gastro-esophageal reflux disease without esophagitis; E78.5 Hyperlipidemia, unspecified; Z95.1 Presence of aortocoronary bypass graft; Z79.84 Long term (current) use of oral hypoglycemic drugs; Z87.891 Personal history of nicotine dependence
CPT/HCPCS: 36415; 36600; 51702; 71045; 71046; 76770; 80048; 80053; 80069; 81001; 82140; 82274; 82570; 82728; 82803; 82962; 83036; 83540; 83550; 83735; 83880; 84100; 84300; 84484; 84540; 85025; 85027; 86850; 86900; 86920; 86922; 93005; 93451; 94002; 94003; 94640; 94667; 94668; 97110; 97116; 97162; 97166; 97530; 97802; 99285; J1756; J7030; J7040; P9016; A4216; C1751; C1769; C1894; J1940

== ENCOUNTER 2018-08-04 07:08 | Emergency (ER) | payer MEDICARE, SELFPAY ==
[2018-07-31 14:22] VITALS: BMI 43.9
[2018-08-04] VITALS (10 sets, daily range): BP systolic 142–166; BP diastolic 65–71; PULSE 86–109; RESP 12–22; TEMP 37.6; O2SAT 77–95; BMI 46.5
--- NOTE | 2018-08-04 07:15 | RAD_ITS ---
STUDY: X-RAY CHEST REASON FOR EXAM: Female, 72 years old. Dyspnea, wheezing and hypoxia. TECHNIQUE: PA and lateral views of the chest. COMPARISON: 07/05/2018. FINDINGS: There is probable mild infiltrate in the left lower lobe. There again is mild elevation of right hemidiaphragm. There are small bilateral pleural effusions. Sternal cerclage wires and vascular clips are present from a prior sternotomy and coronary artery bypass graft procedure (CABG). The heart is borderline in size. Normal mediastinum and james. Normal visualized pulmonary arteries. There is atherosclerotic calcification of the aortic arch. The osseous structures are unchanged. There is no demonstrated abnormality of the visualized soft tissue structures of the upper abdomen. RAD/Chest PA and Lateral IMPRESSION: Probable mild left lower lobe infiltrate. Small bilateral pleural effusions. Status post CABG. Electronically Signed: Christiano Leal MD at 8:13 EDT Tel , Service support ,
--- NOTE | 2018-08-04 07:15 | EKG12_ITS ---
Test Reason : SOB Blood Pressure : / mmHG Vent. Rate : 094 BPM Atrial Rate : 094 BPM P-R Int : 178 ms QRS Dur : 096 ms QT Int : 360 ms P-R-T Axes : 057 044 069 degrees QTc Int : 450 ms Normal sinus rhythm Normal ECG Confirmed by CHAITANYA DOVE, CARLOS ENRIQUE ([id number]), photo editor CHANEL HOGAN ([id number]) on 08/05/2018 11:48:28 AM Referred By: HAILEY Confirmed By:CARLOS ENRIQUE TAVARES MD
[2018-08-04] MEDS: MethylPREDNISolone 125 MG/2 ML Vial 60 MG IV (07:20)
--- NOTE | 2018-08-04 07:22 | ED.VIS.GEN ---
History of Present Illness Chief Complaint: Shortness of Breath Informant: Patient, Family Onset: Days Context: Gradual Onset Timing: Continuous Quality: Increased shortness of breath, decreased level of consciousness Location: Home Current Severity: Moderate Maximum Severity: Severe Worsened by: Activity Relieved by: Nothing Associated Symptoms: Cough, shortness of breath, chills Narrative: Patient is an elderly woman with multiple medical problems who was brought to the emergency department because of shortness of breath, dyspnea on exertion, decreased level of consciousness, bilateral lower extremity edema and 5 pound weight gain. She has similar presentation 1 month ago. She was placed on BiPAP for CO2 retention. She denies headache, ocular, visual or auditory symptoms. She denies rhinorrhea, congestion, postnasal drainage or sore throat. Cough is nonproductive. She sleeps in a chair and is slept in a chair since last admission. She denies nausea, vomiting diarrhea. She denies hematemesis, melena hematochezia. She denies urologic symptoms. Prior similar symptoms: Yes Recent Illness/Hospitalization: Yes - Past Medical History (1) Acute kidney injury Status: Acute (2) Bronchospasm Status: Acute (3) Respiratory failure with hypoxia Status: Acute (4) COPD (chronic obstructive pulmonary disease) Status: Chronic (5) Diabetes mellitus type 2 in obese Status: Chronic (6) Dyslipidemia Status: Chronic (7) Essential hypertension Status: Chronic (8) H/O four vessel coronary artery bypass graft Status: Chronic Comment: NATHAN to the LAD, and SVG to the diagonal branch, and SVG to the LCx system, and an SVG to the RCA on 04/16/2013 at [facility] with Dr. Fields (9) Morbid obesity with BMI of 40.0-44.9, adult Status: Chronic (10) Pulmonary hypertension Status: Chronic (11) Sleep-disordered breathing Status: Chronic (12) Tricuspid insufficiency Status: Chronic Past Medical History - Allergies and Home Meds Allergies/Adverse Reactions: Allergies Penicillins Allergy (Verified 08/04/18 07:09) Hives adhesive tape Adverse Reaction (Verified 08/04/18 07:09) Other Primary Care Physician: Levi Laird MD [Primary Care Provider] - Prior records reviewed: Yes Surgical History: appendectomy, cholecystectomy, - Lives: With Family Smoking Status: Former smoker Alcohol: None - Family History Paternal Family History: Family History (Last Reviewed 07/31/18 @ 14:23 by Prema Sullivan) Mother Heart disease Family History: Reports: - - Denies known paternal cardiac history. Maternal Family History: Family History (Last Reviewed 07/31/18 @ 14:23 by Prema Sullivan) Mother Heart disease Family History: Reports: - - Denies known maternal cardiac history. Review of Systems General: Reports: Chills, Fever, Subjective. Denies: Sweats, Weight loss Eyes: Denies: Visual changes - bilaterally, Blurred Vision - bilaterally, Diplopia ENT: Denies: Bilateral ear pain, Rhinorrhea, Sore throat Cardiovascular: Denies: Chest pain, Palpitations, Heart racing Respiratory: Reports: Dyspnea, Cough, Dyspnea on exertion, Orthopnea. Denies: Sputum, Paroxysmal nocturnal dyspnea Gastrointestinal: Denies: Abdominal pain, Nausea, Vomiting, Diarrhea, Melena, Hematochezia Genitourinary: Denies: Dysuria, Hematuria, Frequency Musculoskeletal: Reports: Swelling. Denies: Myalgias, Arthralgias, Back pain, Extremity Pain Skin: Denies: Rash, Wounds Neurological: Reports: Weakness. Denies: Headache, Parasthesia, Numbness Hematologic: Denies: Easy bruising, Easy bleeding Allergy: Denies: Uticaria, Swelling of the mouth Physical Exam Vital Signs/Narrative: Vital Signs Temp Pulse Resp BP Pulse Ox 08/04/18 07:17 95 08/04/18 07:14 92 19 H 160/71 H 93 08/04/18 07:09 99.7 F H 109 H 22 H 160/71 H 77 Inital Vital Signs reviewed: Yes General: Well nourished, Well developed, Obese, No Acute Distress Head: Normocephalic, Atraumatic Eyes: Perrl, EOMI. Negative for: Pale conjunctiva, Scleral icterus, - ENT: Moist mucous membranes, No rhinorrhea, TM's clear Neck: Supple, Nontender, No lymphadenopathy, No JVD, - Cardiovascular: Regular rhythm, No murmurs, Normal S1, Normal S2, Tachycardia Respiratory: Chest nontender, Wheezing, Diminished, Decreased Air Movement - Expiratory phase is increased., Retractions Abdomen: Soft, Nontender, Nondistended, Normal bowel sounds Back: Nontender, Normal Inspection Extremities: Nontender, Edema - 1+ pitting to the knee. Negative for: No edema Skin: Normal color, No rash, No Trauma. Negative for: Cyanosis, Diaphoresis, Jaundice Neurological: Oriented x3, Cranial nerves II-XII grossly intact, Normal Strength, Normal Sensation, Normal DTR. Negative for: Alert Psychological: Normal affect Diagnostic/Tx/Re-eval Chest X-Ray - ED: 2 View, Read by ED Physician, Normal, Bony Structures, Chronic Changes, Left Effusion - Small, - - Sternal wires noted. Cardiac silhouette unchanged from prior. Prominence of right hilum unchanged from prior. Elevation of the right hemidiaphragm is unchanged from prior. There is evidence of discoid atelectasis. There is calcification of the aortic knob. There is no obvious infiltrate noted. 0805 08/04/18 07:15 Chest PA and Lateral [RAD] Stat Laboratory Results 08/04/18 08/04/18 08/04/18 07:15 07:15 07:15 WBC 10.5 RBC 2.61 L Hgb 7.4 L Hct 23.6 L MCV 90.4 MCH 28.4 MCHC 31.4 L RDW 16.9 H RDW Differential 56.3 H Plt Count 246 MPV 9.2 Immature Gran % (Auto) 1.200 H Neut % (Auto) 82.2 H Lymph % (Auto) 6.4 L [place] % (Auto) 8.4 Eos % (Auto) 1.7 Baso % (Auto) 0.1 Absolute Neuts (auto) 8.6 H Absolute Lymphs (auto) 0.67 L Total Counted Not Reportable Specimen Type Sample Site pH Bicarbonate Actual POC Total CO2 Base Excess O2 Saturation ABG pCO2 ABG pO2 Abram Test O2 Delivery Device Liter Flow Blood Gas Notified Whom Blood Gas Notified Time Sodium 136 Potassium 4.0 Chloride 95 L Carbon Dioxide 36.0 H Anion Gap 5 BUN 34 H Creatinine 1.84 H Estim Creat Clear Calc 23.20 Est GFR (MDRD) Af Amer 35 L Est GFR (MDRD) Non-Af 29 L BUN/Creatinine Ratio 18.5 Glucose 167 H Lactic Acid 0.8 Calcium 8.6 Troponin I < 0.015 08/04/18 07:23 WBC RBC Hgb Hct MCV MCH MCHC RDW RDW Differential Plt Count MPV Immature Gran % (Auto) Neut % (Auto) Lymph % (Auto) [place] % (Auto) Eos % (Auto) Baso % (Auto) Absolute Neuts (auto) Absolute Lymphs (auto) Total Counted Specimen Type ART Sample Site R Radial pH 7.40 Bicarbonate Actual 35.1 H POC Total CO2 37 Base Excess 10 H O2 Saturation 94 L ABG pCO2 57.2 H ABG pO2 72 L Abram Test POS O2 Delivery Device Nasal Can Liter Flow 6.0 Blood Gas Notified Whom ED Blood Gas Notified Time 715 Sodium Potassium Chloride Carbon Dioxide Anion Gap BUN Creatinine Estim Creat Clear Calc Est GFR (MDRD) Af Amer Est GFR (MDRD) Non-Af BUN/Creatinine Ratio Glucose Lactic Acid Calcium Troponin I - Rhythm Strip Rhythm Strip: Sinus Rhythm Rate: 97 Ectopy: None - EKG Initial EKG Interpretation: Sinus Rhythm - Circular rate is 94. WI interval, 178 ms. QRS duration is 96 ms. QT interval is normal. [place] is normal. There are no acute ischemic changes and the EKG is normal. - Medical Decision Making With decreased level of consciousness expiratory wheezing with decreased air movement concern exacerbate COPD with CO2 retention. ABG was obtained. With history of pulmonary hypertension and 5 pound weight gain and edema lower extremity concern right heart failure. EKG was obtained to evaluate for ischemia. Chest x-ray to evaluate for pneumonia versus CHF and rule out pneumothorax since there is decreased movement of air. Since there is a history of coronary disease troponin was ordered to rule out cardiac ischemia. CBC was obtained to evaluate white count and rule out anemia. Basic metabolic panel was obtained to evaluate electrolytes and renal function especially since she had acute kidney injury last admission and required consultation with nephrology. ABG on 6 L by nasal cannula reveals a pH of 7.39, PCO2 57.2, PaO2 72, base excess 10 bicarb 35.1. This indicates respiratory acidosis with compensation. This also represents a increased AA gradient. Per family patient is on oxygen during the day, 1.5 L and 3.0 L at night. Patient was treated with DuoNeb, albuterol and Solu-Medrol for exacerbation of her COPD. There is a slight increase in creatinine from prior. There is approximately 1 g drop in hemoglobin. BUN to creatinine ratio is less than 20-1. 0835. She is somnolent. She is moving more air. Wheezing still noted on expiration. Will reassess after third aerosol treatment. Presently she is on 3 L by nasal cannula, which is more than normal for her. Patient was reassessed at 1030. She is not tachypneic, tachycardic or hypoxic. Presently there is no wheezing. Because she has a productive cough will discharge with prescription for levofloxacin. She received her first dose in the emergency department. And 5-day burst of prednisone. ED Disposition - Plan for ED Patient: Disposition: Home or Assisted Living Diagnosis: Chronic obstructive pulmonary disease with acute exacerbation Instructions: ED COPD Flare Prescriptions: levoFLOXacin tablet [Levaquin] 500 mg PO DAILY #7 tablet Prednisone [Deltasone] 40 mg PO DAILY #10 tablet Referrals: Levi Laird MD [Primary Care Provider] - 3-5 Days Additional Instructions: Your prescription was electronically transmitted to [facility] pharmacy on [facility].
[2018-08-04 07:25] LABS: Allen Test POS; Base Excess 10 mmol/L (-2 to +2); Bicarbonate 35.1 mmol/L (22-26); Blood Gas Specimen Type ART; O2 Delivery Device Nasal Can; PO2 72 mmHG (75-100); SITE R Radial; SO2 94 % (95-99); Time Given 715; Total Carbon Dioxide 37 mmol/L; pCO2 57.2 mmHg (35-45)
[2018-08-04] MEDS: Albuterol 2.5 MG/3 ML VIAL.NEB. INHALATION ×2 (07:29)
[2018-08-04] MEDS: Ipratropium/Albuterol Sulfate 3 ML AMPUL.NEB INHALATION (07:29)
[2018-08-04 07:30] LABS: Basophil% 0.1 % (0-1); Eosinophils% 1.7 % (0-5); Hematocrit 23.6 % (37-47); Hemoglobin 7.4 g/dl (12.0-15.0); Lymphocyte % 6.4 % (19-41); Mean Corp Hgb Conc 31.4 g/gl (32-36); Mean Corpuscular Hgb 28.4 pg (27.0-32.0); Mean Corpuscular Volume 90.4 fL (81-99); Mean Platelet Vol. 9.2 fl (6.2-12.0); Monocyte% 8.4 % (0-10); Neutrophil # 8.59 X10^3/uL (2.7-7.7); Neutrophil % 82.2 % (47-70); POSITIVE COUNT NO; POSITIVE DIFFERENTIAL NO; POSITIVE MORPHOLOGY NO; Platelet Count 246 K/mm3 (150-450); RBC Distribution Width CV 16.9 % (11.6-14.6); RBC Distribution Width SD 56.3 fl (35.1-43.9); Red Blood Count 2.61 M/mm3 (4.2-5.4); White Blood Count 10.5 K/mm3 (4.4-11.0)
[2018-08-04 07:31] LABS: Absolute Lymphocyte Count 0.67 X10^3/ul (0.83-4.51); Absolute Neutrophil Count 8.6 X10^3/uL (2.0-7.7); Basophil# 0.01 X10^3/uL; Eosinophil# 0.18 X10^3/uL; Lymphocyte # 0.67 X10^3/ul (4.0); Monocyte# 0.88 X10^3/uL
[2018-08-04 07:44] LABS: Anion Gap 5 (5-15); BUN 34 mg/dL (7-18); BUN/Creat Ratio 18.5 RATIO (10-20); Calcium,Total 8.6 mg/dL (8.5-10.1); Chloride 95 mmol/L (98-107); Creatinine, Serum 1.84 mg/dL (0.55-1.02); EST Glomerular Filtration Rate 29 mL/min (>60); Est Glom Filt Rate - Afr Amer 35 mL/min (>60); Glucose 167 mg/dL (74-106); Sodium Level 136 mmol/L (136-145)
[2018-08-04 07:50] LABS: Lactic Acid 0.8 mmol/L (0.4-2.0)
[2018-08-04] MEDS: levoFLOXacin 750 MG Tablet PO (10:38)
== END 2018-08-04 10:45 | disposition home or self-care (01) ==
PROVIDERS: Emergency Provider Emergency Medicine; Family Provider Family Medicine; PCP Family Medicine
DX: J44.1 Chronic obstructive pulmonary disease with (acute) exacerbation (principal); E87.2 Acidosis; E11.69 Type 2 diabetes mellitus with other specified complication; E78.5 Hyperlipidemia, unspecified; I10 Essential (primary) hypertension; E66.01 Morbid (severe) obesity due to excess calories; Z68.41 Body mass index [BMI] 40.0-44.9, adult; I27.20 Pulmonary hypertension, unspecified; I07.1 Rheumatic tricuspid insufficiency; I25.10 Atherosclerotic heart disease of native coronary artery without angina pectoris; Z87.448 Personal history of other diseases of urinary system; Z87.09 Personal history of other diseases of the respiratory system; Z95.1 Presence of aortocoronary bypass graft; Z99.81 Dependence on supplemental oxygen; Z79.82 Long term (current) use of aspirin; Z79.899 Other long term (current) drug therapy; Z87.891 Personal history of nicotine dependence
CPT/HCPCS: 36600; 71046; 80048; 82803; 83605; 84484; 85025; 93005; 94640; 96374; 99285; A4216

== ENCOUNTER → 2018-08-15 | Outpatient (CLI) | payer MEDICARE, SELFPAY ==
[2018-07-19 13:05] VITALS: BMI 45.5
== END | disposition home or self-care (01) ==
LOC: SL 21:16
PROVIDERS: Family Provider Family Medicine; PCP Family Medicine; Referring Provider Nurse Practitioner Acute Care; Visit Provider Nurse Practitioner Acute Care
DX: G47.33 Obstructive sleep apnea (adult) (pediatric) (principal)
CPT/HCPCS: 95811

== ENCOUNTER 2018-08-20 13:43 | Inpatient (IN) | payer MEDICARE, SELFPAY ==
[2018-08-08 10:21] VITALS: BMI 44.6
[2018-08-20] VITALS (23 sets, daily range): BP systolic 164–199; BP diastolic 58–83; PULSE 84–101; RESP 12–28; TEMP 36.8–37.2; O2SAT 92–99; BMI 43.9; BMI 45.2
--- NOTE | 2018-08-20 14:01 | EKG12_ITS ---
Test Reason : SOB Blood Pressure : / mmHG Vent. Rate : 095 BPM Atrial Rate : 095 BPM P-R Int : 170 ms QRS Dur : 092 ms QT Int : 370 ms P-R-T Axes : 053 041 052 degrees QTc Int : 464 ms Normal sinus rhythm Possible Left atrial enlargement Borderline ECG Confirmed by MELISSA SNOW ([id number]), international editorial producer ISABEL DWYER ([id number]) on 08/26/2018 10:25:16 AM Referred By: Jennifer Erickson Confirmed By:MELISSA SNOW
--- NOTE | 2018-08-20 14:01 | RAD_ITS ---
STUDY: X-RAY CHEST REASON FOR EXAM: Female, 72 years old. Dyspnea. TECHNIQUE: Single AP portable view of the chest. COMPARISON: Comparison is made with prior study dated August 04, 2018. FINDINGS: EKG electrodes are seen. Mild degree of vascular congestion with bibasilar atelectasis and/or infiltrates worse at the left lung base. Blunting of the costophrenic angles. Sternal cerclage wires and vascular clips are present from a prior sternotomy and coronary artery bypass graft procedure (CABG). Normal mediastinum and james. Normal visualized pulmonary arteries. There is atherosclerotic calcification of the aortic arch with tortuosity. There are diffuse degenerative changes of the visualized thoracic spine. Normal visualized ribs, clavicles, and shoulders. There is no demonstrated abnormality of the visualized soft tissue structures of the upper abdomen. RAD/Chest 1 View (Portable) IMPRESSION: Findings in keeping with a mild degree of CHF with superimposed atelectasis and/or infiltrates at the lung bases worse on the left side. Electronically Signed: Peter Bahena, at 14:29 EDT , Service support ,
[2018-08-20 14:34] LABS: Absolute Lymphocyte Count 0.49 X10^3/ul (0.83-4.51); Absolute Neutrophil Count 13.9 X10^3/uL (2.0-7.7); Basophil# 0.02 X10^3/uL; Basophil% 0.1 % (0-1); Eosinophil# 0.09 X10^3/uL; Eosinophils% 0.6 % (0-5); Hematocrit 27.4 % (37-47); Hemoglobin 8.3 g/dl (12.0-15.0); Lymphocyte # 0.49 X10^3/ul (4.0); Lymphocyte % 3.1 % (19-41); Mean Corp Hgb Conc 30.3 g/gl (32-36); Mean Corpuscular Hgb 27.8 pg (27.0-32.0); Mean Corpuscular Volume 91.6 fL (81-99); Mean Platelet Vol. 9.5 fl (6.2-12.0); Monocyte# 1.23 X10^3/uL; Monocyte% 7.8 % (0-10); Neutrophil # 13.85 X10^3/uL (2.7-7.7); Neutrophil % 87.3 % (47-70); Platelet Count 234 K/mm3 (150-450); RBC Distribution Width SD 60.7 fl (35.1-43.9); Red Blood Count 2.99 M/mm3 (4.2-5.4); White Blood Count 15.9 K/mm3 (4.4-11.0)
[2018-08-20] MEDS: Ipratropium/Albuterol Sulfate 3 ML AMPUL.NEB INHALATION ×3 (14:35→22:15)
[2018-08-20 14:36] LABS: Base Excess 12 mmol/L (-2 to +2); Bicarbonate 36.4 mmol/L (22-26); Blood Gas Specimen Type ART; EPAP 8; FI02 40; IPAP 14; PO2 108 mmHG (75-100); RR 12; SITE L Brachial; SO2 98 % (95-99); Time Given 1429; Total Carbon Dioxide 38 mmol/L; pCO2 55.1 mmHg (35-45); pH 7.43 (7.35-7.45)
[2018-08-20 14:37] LABS: Differential Indicated SCAN CRITERIA MET; POSITIVE COUNT NO; POSITIVE DIFFERENTIAL YES; POSITIVE MORPHOLOGY NO
[2018-08-20 14:42] LABS: Anion Gap 7 (5-15); BUN 29 mg/dL (7-18); BUN/Creat Ratio 21.5 RATIO (10-20); Calcium,Total 9.1 mg/dL (8.5-10.1); Chloride 94 mmol/L (98-107); Creatinine, Serum 1.35 mg/dL (0.55-1.02); EST Glomerular Filtration Rate 41 mL/min (>60); Est Glom Filt Rate - Afr Amer 50 mL/min (>60); Estimated Creatinine Clearance 31.62 ml/min; Glucose 259 mg/dL (74-106); Potassium 3.5 mmol/L (3.5-5.1); Sodium Level 137 mmol/L (136-145)
[2018-08-20 14:53] LABS: Lactic Acid 0.7 mmol/L (0.4-2.0)
[2018-08-20] MEDS: MethylPREDNISolone 125 MG/2 ML Vial IV (14:58)
[2018-08-20 15:03] LABS: BNP,B-Type NATRIURETIC PEPTIDE 299.1 pg/mL (0-100)
--- NOTE | 2018-08-20 15:08 | HP.PCM_ITS ---
Problem List (1) Acute respiratory failure with hypoxia and hypercapnia Status: Acute (2) Acute exacerbation of chronic obstructive pulmonary disease (COPD) Status: Acute (3) CHF exacerbation Status: Acute Qualifiers: Heart failure type: unspecified Qualified Code(s): I50.9 - Heart failure, unspecified (4) Pneumonia Status: Acute Qualifiers: Pneumonia type: due to unspecified organism Laterality: bilateral Lung location: lower lobe of lung Qualified Code(s): J18.1 - Lobar pneumonia, unspecified organism (5) CKD (chronic kidney disease), stage III Status: Chronic (6) Atherosclerotic heart disease of [place] coronary artery without angina pectoris Status: Chronic Qualifiers: [place] vs. transplanted heart: unspecified whether [place] or transplanted heart Qualified Code(s): I25.10 - Atherosclerotic heart disease of [place] coronary artery without angina pectoris Comment: NATHAN to the LAD, and SVG to the diagonal branch, and SVG to the LCx system, and an SVG to the RCA on 04/16/2013 at [facility] with Dr. Fields (7) ELAINE (obstructive sleep apnea) Status: Chronic (8) Mitral insufficiency Status: Chronic Qualifiers: Cardiac valve disease etiology: etiology unspecified Qualified Code(s): I34.0 - Nonrheumatic mitral (valve) insufficiency (9) Tricuspid insufficiency Status: Chronic Qualifiers: Cardiac valve disease etiology: etiology unspecified Qualified Code(s): I07.1 - Rheumatic tricuspid insufficiency (10) Pulmonary hypertension Status: Chronic (11) Morbid obesity with BMI of 40.0-44.9, adult Status: Chronic (12) Sleep-disordered breathing Status: Chronic (13) H/O four vessel coronary artery bypass graft Status: Chronic Comment: NATHAN to the LAD, and SVG to the diagonal branch, and SVG to the LCx system, and an SVG to the RCA on 04/16/2013 at [facility] with Dr. Fields (14) COPD (chronic obstructive pulmonary disease) Status: Chronic Qualifiers: COPD type: unspecified COPD Qualified Code(s): J44.9 - Chronic obstructive pulmonary disease, unspecified (15) Diabetes mellitus type 2 in obese Status: Chronic History of Present Illness Date of Admission: 08/20/18 Chief Complaint: Dyspnea. The patient is a 72 y/o F w/ PMHx: Chronic Normocytic anemia, CKD stage III, Chronic Hypoxic Respiratory Failure w/ Chronic COPD (1.5-3L NC), HTN, HLD, CAD s/p CABG x 4 w/ NATHAN to LAD, SVG to diagonal branch, SVG to LCx system, SVG to RCA on 04/16/2013 at [facility] with Dr. Fields, ELAINE, Morbid Obesity, Diabetes mellitus type II who presents to the [facility] ED on 08/20/18 with history of recent fatigue, malaise, mildly productive cough over the weekend with decreased interactiveness however on day of ED presentation had presented to her primary care physician for routine evaluation and was noted to be in acute respiratory distress with increased work of breathing, wheezing requiring EMS transportation to the hospital. Actually family notes that she has had worsened lower extremity swelling and discomfort with palpation of the extremities as a result. Work-up in the ED included T 98.2, heart rate 101, BP 172/73, respiratory rate 28, 97% on 4 L--> respiratory rate 25, oxygenation 97% on 40% BiPAP, CBC with WBC 15.9, hemoglobin 8.3, platelet 234 with left shift, ABG with pH 7.43, bicarb 36.4, PCO2 55.1, PO2 108 on BiPAP therapy, BMP with chloride 94, carbon dioxide 36, BUN/creatinine 29/1.35, glucose 259, lactic acid 0.7, troponin 0 0.015, BNP 299.1, blood culture x2 pending per ED, chest x-ray with mild degree CHF with superimposed atelectasis versus infiltrates at the bilateral lung bases, left greater than right, EKG with no acute evidence of ischemia. In the ED patient administered DuoNeb, Solu-Medrol 125 mg IV x1 as well as Levaquin 750 mg IV x1. Past Medical History Past Medical History (Chronic Problems): Chronic Problems (Last Reviewed 08/08/18 @ 10:32 by Lia Meléndez NP-Katja) CKD (chronic kidney disease), stage III (Chronic) Atherosclerotic heart disease of [place] coronary artery without angina pectoris (Chronic) NATHAN to the LAD, and SVG to the diagonal branch, and SVG to the LCx system, and an SVG to the RCA on 04/16/2013 at [facility] with Dr. Tra lopez Essential hypertension (Chronic) ELAINE (obstructive sleep apnea) (Chronic) Mitral insufficiency (Chronic) Tricuspid insufficiency (Chronic) Pulmonary hypertension (Chronic) Morbid obesity with BMI of 40.0-44.9, adult (Chronic) Sleep-disordered breathing (Chronic) H/O four vessel coronary artery bypass graft (Chronic ~04/16/13) NATHAN to the LAD, and SVG to the diagonal branch, and SVG to the LCx system, and an SVG to the RCA on 04/16/2013 at [facility] with Dr. Fields Dyslipidemia (Chronic) COPD (chronic obstructive pulmonary disease) (Chronic) Diabetes mellitus type 2 in obese (Chronic) Medical History: Medical History (Last Reviewed 08/08/18 @ 10:32 by Lia Meléndez NP-C) Atherosclerotic heart disease of [place] coronary artery without angina pectoris (Chronic) I25.10 NATHAN to the LAD, and SVG to the diagonal branch, and SVG to the LCx system, and an SVG to the RCA on 04/16/2013 at [facility] with Dr. Fields Essential hypertension (Chronic) I10 Respiratory failure with hypoxia (Acute) J96.91 Acute exacerbation of chronic obstructive pulmonary disease (COPD) (Acute) J44.1 Bronchospasm (Acute) J98.01 Viral conjunctivitis (Acute) B30.9 Allergic conjunctivitis (Acute) H10.10 Chemosis of conjunctiva (Acute) H11.429 Bradycardia (Acute) R00.1 Hypotension (Acute) I95.9 Decreased responsiveness (Acute) Acute hypoxic respiratory failure (Acute) Mitral insufficiency (Chronic) I34.0 Tricuspid insufficiency (Chronic) I07.1 Pulmonary hypertension (Chronic) I27.20 Morbid obesity with BMI of 40.0-44.9, adult (Chronic) E66.01, Z68.41 Sleep-disordered breathing (Chronic) G47.30 Dyslipidemia (Chronic) E78.5 COPD (chronic obstructive pulmonary disease) (Chronic) J44.9 Acute kidney injury (Acute) N17.9 Diabetes mellitus type 2 in obese (Chronic) E11.69, E66.9 CAD (coronary artery disease) (Inactive) I25.10 NATHAN to the LAD, and SVG to the diagonal branch, and SVG to the LCx system, and an SVG to the RCA on 04/16/2013 at [facility] with Dr. Fields HTN (hypertension) (Inactive) I10 Allergies Penicillins Allergy (Verified 08/20/18 13:54) Hives adhesive tape Adverse Reaction (Verified 08/20/18 13:54) Other Home Medications: Ambulatory Orders Medication Instructions Recorded Amitriptyline HCl [Elavil] 100 mg PO QHS 04/09/13 metFORMIN (XR) [Glucophage Xr] 500 mg PO DAILY 12/25/16 Aspirin E.C. [Ecotrin] 81 mg PO DAILY 10/25/17 Atorvastatin Calcium 80 mg PO DAILY 10/25/17 Gabapentin [Neurontin] 300 mg PO .COMPLEX 10/25/17 Amlodipine Besylate 10 mg PO DAILY 06/01/18 Ferrous Sulfate 325 mg PO 1200,1700 #120 tab 07/09/18 Furosemide [Lasix] 40 mg PO BID@1000,1800 #120 tab 07/09/18 Potassium Chloride 20 meq PO DAILY #60 tab.er.prt 07/09/18 carvedilol 6.25 mg tablet 6.25 mg PO BID #60 tab 07/31/18 isosorbide mononitrate ER 60 mg 60 mg PO DAILY #60 tab 07/31/18 tablet,extended release 24 hr mometasone-formoterol HFA 200 2 puff INHALATION BID #13 g 08/08/18 mcg-5 mcg/actuation aerosol inhaler tiotropium 2.5 mcg-olodaterol 2.5 2 puff INHALATION DAILY #4 g 08/08/18 mcg/actuation mist for inhalation Albuterol Sulfate 1.25 mg IH 4X/DAY 08/20/18 Doxazosin Mesylate 8 mg PO QHS 08/20/18 Hydralazine HCl 100 mg PO TID 08/20/18 Omeprazole 40 mg PO DAILY 08/20/18 Prednisone 10 mg PO DAILY 08/20/18 Surgical History: Surgical History (Last Reviewed 08/08/18 @ 10:32 by ANNABELLA HouC) H/O four vessel coronary artery bypass graft (Chronic) Onset Date: ~04/16/13 Z95.1 NATHAN to the LAD, and SVG to the diagonal branch, and SVG to the LCx system, and an SVG to the RCA on 04/16/2013 at [facility] with Dr. Fields Surgical History: appendectomy, cholecystectomy, - - CABG x4, cholecystectomy, appendectomy, left lower extremity vein stripping, tonsillectomy. 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 Smoking Status: Former smoker - Patient quit cigarette tobacco usage approximately 10 years prior with at that time 3 pack/day sick or tobacco use. Tobacco Use: Non-smoker Alcohol: None Drugs: None - *Family History Paternal Family History: Family History (Last Reviewed 08/08/18 @ 10:32 by TREVOR Hou) Mother Heart disease History Items: - - Patient notes a paternal family history of chronic COPD with tobacco use, heart disease and diabetes. Maternal Family History: Family History (Last Reviewed 08/08/18 @ 10:32 by TREVOR Hou) Mother Heart disease History Items: - - Patient notes a maternal family history of heart disease and diabetes. Review of Systems Constitutional: Reports: Anorexia, Fever, Malaise, Weakness, Weight Change, Fatigue. Denies: Chills HEENT: Denies: Head Aches, Sinus Congestion, Sinus Drainage Cardiovascular: Reports: Edema, Orthopnea. Denies: Chest Pain, Palpitations Respiratory: Reports: Cough, Shortness of Breath, Shortness of breath at rest, Shortness of breath upon exertion, Sputum production, Wheezing Gastrointestinal: Denies: Abdominal Pain, Nausea, Vomiting Genitourinary: Denies: Dysuria Musculoskeletal: Reports: Joint Pain. Denies: Joint Tenderness Skin: Reports: Skin Changes. Denies: Rash, Wounds Neurological: Denies: Numbness, Tingling, Focal weakness Psychiatric: Denies: Anxiety, Depression, Homicidal Ideations, Suicidal Id eations Hematologic/ Lymphatic: Reports: Anemia, Easy Bruising, Easy Bleeding VTE Information - Inpt Only VTE Present on Admission: No VTE Mechan Device Prophylaxis: SCD's VTE Pharm Prophylaxis ordered?: Yes Patient Problems: Active and Suspected Problems (Last Reviewed 08/08/18 @ 10:32 by TREVOR Hou) Acute respiratory failure with hypoxia and hypercapnia (Acute) CHF exacerbation (Acute) Pneumonia (Acute) Subjective: Seated upright, fatigued, encephalopathic, on BiPAP. Objective: Physical Examination: General: Patient on the BiPAP, awakens to some stimuli, not markedly alert, answering some orientation questions but very lethargic, remains cooperative, seated upright in the ED bed, evident distress although improved since BiPAP application. Skin: normal color, turgor, no icterus, cyanosis except noted bilateral looks any chronic venous stasis skin changes. HEENT: AT/NC, EOMI however difficult exam given lethargy, PERRLA, mildly dry MM, no carotid bruits, difficult to assess JVD secondary to very thickened neck. Lungs: Acutely diminished breath sounds, greater bases, BiPAP in place, increased respiratory rate, accessory muscle usage ongoing although improved appearance from initial ED presentation, mildly rhonchorous and rales bases, prior wheezing noted per ED decreased. Heart: Cardiac with regular rhythm; no gallop, rub audible. Abdomen: soft, overly obese, NTTP, ND, normal BS, no HSM; however, habitus makes examination difficult. Extremities: no cyanosis, clubbing, lateral lower extremity pedal to knee 2+ pitting edema, tender to palpation. Neurological: Patient on the BiPAP, awakens to some stimuli, not markedly alert, answering some orientation questions but very lethargic, remains cooperative, seated upright in the ED bed, evident distress although improved since BiPAP application; cognitive function not baseline intact; pupils equally reactive to light and accomodation; cranial nerves II-XII grossly normal, moving all 4 extremities except extremely limited secondary to acute presentation, strength severely globally decreased. Psychiatric: affect appears lethargic, flat, no acute evidence of depressive or anxiety feelings. - Physical Exam Vital Signs Temp Pulse Resp BP Pulse Ox 98.2 F 97 25 H 172/73 H 97 08/20/18 13:44 08/20/18 14:39 08/20/18 14:39 08/20/18 13:44 08/20/18 14:39 Oxygen Flow Rate (L/min) 4 Oxygen Delivery Method Nasal Cannula Weight: 248 lb Body Mass Index (BMI) 43.9 Finger Stick Blood Glucose 155 Laboratory Tests Past 24 Hrs 08/20/18 08/20/18 08/20/18 14:10 14:10 14:10 WBC 15.9 H RBC 2.99 L Hgb 8.3 L Hct 27.4 L MCV 91.6 MCH 27.8 MCHC 30.3 L RDW 18.0 H RDW Differential 60.7 H Plt Count 234 MPV 9.5 Immature Gran % (Auto) 1.100 H Neut % (Auto) 87.3 H Lymph % (Auto) 3.1 L [place] % (Auto) 7.8 Eos % (Auto) 0.6 Baso % (Auto) 0.1 Absolute Neuts (auto) 13.9 H Absolute Lymphs (auto) 0.49 L Total Counted Pending Specimen Type Sample Site pH Bicarbonate Actual POC Total CO2 Base Excess O2 Saturation O2 % ABG pCO2 ABG pO2 Respiration Rate O2 Delivery Device EPAP IPAP Blood Gas Notified Whom Blood Gas Notified Time Sodium 137 Potassium 3.5 Chloride 94 L Carbon Dioxide 36.0 H Anion Gap 7 BUN 29 H Creatinine 1.35 H Estim Creat Clear Calc 31.62 Est GFR (MDRD) Af Amer 50 L Est GFR (MDRD) Non-Af 41 L BUN/Creatinine Ratio 21.5 H Glucose 259 H Lactic Acid Calcium 9.1 Troponin I 0.015 B-Natriuretic Peptide 299.1 H 08/20/18 08/20/18 14:10 14:31 WBC RBC Hgb Hct MCV MCH MCHC RDW RDW Differential Plt Count MPV Immature Gran % (Auto) Neut % (Auto) Lymph % (Auto) [place] % (Auto) Eos % (Auto) Baso % (Auto) Absolute Neuts (auto) Absolute Lymphs (auto) Total Counted Specimen Type ART Sample Site L Brachial pH 7.43 Bicarbonate Actual 36.4 H POC Total CO2 38 Base Excess 12 H O2 Saturation 98 O2 % 40 ABG pCO2 55.1 H ABG pO2 108 H Respiration Rate 12 O2 Delivery Device Bi / C PAP EPAP 8 IPAP 14 Blood Gas Notified Whom ED MD Blood Gas Notified Time 1429 Sodium Potassium Chloride Carbon Dioxide Anion Gap BUN Creatinine Estim Creat Clear Calc Est GFR (MDRD) Af Amer Est GFR (MDRD) Non-Af BUN/Creatinine Ratio Glucose Lactic Acid 0.7 Calcium Troponin I B-Natriuretic Peptide Assessment/Plan All Active Problems (Last Reviewed 08/08/18 @ 10:32 by Lia Meléndez NP-C) Acute respiratory failure with hypoxia and hypercapnia (Acute) CHF exacerbation (Acute) Pneumonia (Acute) Acute respiratory failure with hypoxia (Acute) Respiratory failure with hypoxia (Acute) Acute exacerbation of chronic obstructive pulmonary disease (COPD) (Acute) Bronchospasm (Acute) Viral conjunctivitis (Acute) Allergic conjunctivitis (Acute) Chemosis of conjunctiva (Acute) Bradycardia (Acute) Hypotension (Acute) Decreased responsiveness (Acute) Acute hypoxic respiratory failure (Acute) Acute kidney injury (Acute) Prerenal azotemia (Resolved) The patient is a 72 y/o F w/ PMHx: Chronic Normocytic anemia, CKD stage III, Chronic Hypoxic Respiratory Failure w/ Chronic COPD (1.5-3L NC), HTN, HLD, CAD s/p CABG x 4 w/ NATHAN to LAD, SVG to diagonal branch, SVG to LCx system, SVG to RCA on 04/16/2013 at [facility] with Dr. Fields, ELAINE, Morbid Obesity, Diabetes mellitus type II who presents to the [facility] ED on 08/20/18 with history of recent fatigue, malaise, mildly productive cough over the weekend with decreased interactiveness however on day of ED presentation had presented to her primary care physician for routine evaluation and was noted to be in acute respiratory distress with increased work of breathing, wheezing requiring EMS transportation to the hospital. (1) Acute Encephalopathy (Infectious, Metabolic) secondary to Acute on Chronic Hypoxic and Hypercapnic Respiratory Failure, Multifactorial, secondary to Acute on Chronic COPD Exacerbation, Possible Concurrent Community Acquired Pneumonia in addition to #2: Work-up in the ED included T 98.2, heart rate 101, BP 172/73, respiratory rate 28, 97% on 4 L--> respiratory rate 25, oxygenation 97% on 40% BiPAP, CBC with WBC 15.9, hemoglobin 8.3, platelet 234 with left shift, ABG with pH 7.43, bicarb 36.4, PCO2 55.1, PO2 108 on BiPAP therapy, BMP with chloride 94, carbon dioxide 36, BUN/creatinine 29/1.35, glucose 259, lactic acid 0.7, troponin 0 0.015, BNP 299.1, blood culture x2 pending per ED, chest x-ray with mild degree CHF with superimposed atelectasis versus infiltrates at the bilateral lung bases, left greater than right, EKG with no acute evidence of ischemia. Will admit to ICU, maintain on BIPAP, consult ICU physician, continue ATC duonebs, PRN albuterol, maintain on IV solumedrol, maintain on IV Rocephin and Azithromycin, HOB, IS parameters w/ pending sputum cultures, respiratory viral panel and urine antigens. Bld cx x 2 obtained in the ED. Will obtain repeat AM CXR following diuresis to ascertain if infiltrate present. (2) Acute Decompensated Diastolic CHF: Troponin 0 0.015, BNP 299.1, blood culture x2 pending per ED, chest x-ray with mild degree CHF with superimposed atelectasis versus infiltrates at the bilateral lung bases, left greater than right, EKG with no acute evidence of ischemia, maintain on cardiac telemetry obtain cardiac enzyme series, obtain serial EKGs, continue IV lasix diuresis, monitor I/Os, maintain on intake restriction, continue medical therapy w/ asa, statin, BB, isosorbide and hydralazine. Will obtain TSH and magnesium level. Most recent ECHO in June 2018 thus will not repeat with noted normal LV size, LV systolic function normal, EF 60%, stage II diastolic dysfunction, mild MVI. PRN morphine to decrease afterload, continue oxygen supplementation, if neces james will position w/ upright position with legs off bed to decrease preload. (3) CAD: s/p CABG x 4 w/ NATHAN to LAD, SVG to diagonal branch, SVG to LCx system, SVG to RCA on 04/16/2013 at [facility] with Dr. Fields, maintained on aspirin, statin, beta-cha therapy. (4) Morbid Obesity: Weight loss and lifestyle changes encouraged, nutrition consulted. (5) Hypertension: Continue home regimen including Norvasc, Coreg, doxazosin, IV Lasix as noted, hydralazine, isosorbide, PRN hydralazine. (6) Hyperlipidemia: Continue home statin regimen. AM FLP. (7) Diabetes mellitus type II: Hold oral home regimen, ADA diet, accu checks w/ ISS. (8) Chronic normocytic anemia: Admission hemoglobin 8.3, baseline appears 8-10, stable, trend. (9) Chronic Kidney Disease Stage III: Admission BUN/Cr 29/1.35, baseline renal function 1.6-2.2, repeat BMP in AM. (10) ELAINE: BIPAP q HS once transitioned to this regimen only, currently continuous. (11) DVT Prophylaxis: SCDs, heparin. (12) CODE status: Family members present are healthcare power of trust and estates attorney status, living will in place. Discussed CODE status at length including difference between FULL code, DNR-CCA and DNR-CC status. Following discussions about the differences in these status, requested full code status. Advanced Care Planning Face to Face Time: 16 minutes. Code Visit Inpatient E&M: 91338 Init Hosp L3 Procedures: 66703 Advncd Care Plan 30 Min
--- NOTE | 2018-08-20 15:20 | NURSING ---
107 WHITE DYSPNEA, COPD EXAC, CHF
[2018-08-20] MEDS: levoFLOXacin IV 750 MG/150 ML BAG 100 MG IV (15:29)
[2018-08-20] MEDS: Furosemide 40 MG/4 ML Vial IV ×2 (15:29→22:58)
--- NOTE | 2018-08-20 15:29 | ED.VISSUMM ---
- ER Visit Summary Date of Service: 08/20/18 Chief Complaint: [Shortness of breath] History of Present Illness: The patient is a 72 F [presents the emergency department shortness of breath that started today. Patient was going to see her primary care physician for a general checkup when she started had sudden onset of shortness of breath. Patient began to wheeze. She was given a breathing treatment and referred to the ER via EMS. Patient is normally on 1.5 to 3 L of O2 at all times. Patient does have a history of COPD and CHF. She has a history of CO2 retention and encephalopathy related to that. Patient denies any chest pain on arrival. She has not had any recent illness. She did complain per daughter of feeling hot this weekend but he did not take her temperature.] Physical Examination: [HEENT-PERRLA, EOMI. Cranial nerves II through XII grossly intact. TMs clear. Mucous membranes moist. No adenopathy. Cardiovascular-regular rate and rhythm without murmur or ectopy Lungs-initial bilaterally with expiratory wheezes throughout. Patient is tachypneic. No accessory muscle use or retractions. Abdomen-normoactive bowel sounds, soft, nontender, no rebound or rigidity, no peritoneal signs. Extremities-intact ?4, normal range of motion, normal pulses, atraumatic. Patient has +1 edema both lower extremities and symmetric.] Test Results: [EKG obtained on arrival showed sinus rhythm with a ventricular rate of 95 bpm with left atrial enlargement. CBC with differential showed a white count of 15.9, hemoglobin 8.3, hematocrit 27, platelets 234. Chemistries unremarkable. BUN was 29 creatinine 1.35. Troponin was 0.015. Chest x-ray obtained showed some mild CHF with some increased markings in the bases and could not rule out infiltrates.] Emergency Department Course and Treatment: [Patient had blood cultures ordered and lactate. ABG performed showed a pH of 7.429, CO2 of 55, PaO2 of 108, bicarb 36, 98% on 4 L and on BiPAP]. Patient was started on Levaquin 750 mill grams IV. Patient was given a DuoNeb aerosol and started on Solu-Medrol 125 mg IV. After discussion with hospitalist patient was given Lasix 40 mg IV. Treatment Plan: [Admit] Disposition: [Admit] Impression: [Respiratory failure CHF exacerbation COPD exacerbation] This note was generated with Dragon dictation software. It may contain incorrect words, spelling, and punctuation that were not noted in review of the chart prior to signing
--- NOTE | 2018-08-20 15:42 | NURSING ---
NEW ORDER TO ICU 5
--- NOTE | 2018-08-20 16:17 | ED.RN ---
REPORT GIVEN TO SELVIN PADILLA IN ICU.
--- NOTE | 2018-08-20 16:53 | CPS ---
Pt had recent sleep study 08/15/18 with recommended bipap settings . Dr. Erickson paged and given verbal order to change settings to .
[2018-08-20] MEDS: Insulin Lispro 100 UNIT/ML INSULN.PEN SC ×2 (17:09→23:00)
[2018-08-20 17:20] LABS: Bedside Glucose 303 mg/dL (70-110)
[2018-08-20 17:23] LABS: Magnesium 1.6 mg/dL (1.6-2.6)
[2018-08-20] MEDS: Heparin Injection (Vial) 5,000 UNIT/ML VIAL 5000 UNIT SC (20:37)
[2018-08-20] MEDS: Carvedilol 6.25 MG Tablet PO (20:38)
[2018-08-20] MEDS: Doxazosin 4 MG Tablet 8 MG PO (20:38)
[2018-08-20] MEDS: Atorvastatin Calcium 80 MG Tablet PO (20:39)
[2018-08-20] MEDS: hydrALAZINE 50 MG Tablet 100 MG PO (20:39)
[2018-08-20] MEDS: Amitriptyline 100 MG Tablet PO (20:39)
[2018-08-20] MEDS: Gabapentin 300 MG Capsule 600 MG PO (20:39)
[2018-08-20] MEDS: 0.9% NaCl Peripheral Flush Adult/Peds IV (22:58)
[2018-08-20 23:16] LABS: Bedside Glucose 311 mg/dL (70-110)
[2018-08-21] VITALS (31 sets, daily range): BP systolic 145–176; BP diastolic 58–94; PULSE 74–100; RESP 12–21; TEMP 36.7–37.2; O2SAT 91–98
[2018-08-21] MEDS: hydrALAZINE 20 MG/ML Vial 10 MG IV (03:30)
[2018-08-21 03:44] LABS: Absolute Lymphocyte Count 0.31 X10^3/ul (0.83-4.51); Absolute Neutrophil Count 8.3 X10^3/uL (2.0-7.7); Basophil# 0.01 X10^3/uL; Basophil% 0.1 % (0-1); Hematocrit 26.4 % (37-47); Hemoglobin 8.1 g/dl (12.0-15.0); Lymphocyte # 0.31 X10^3/ul (4.0); Lymphocyte % 3.5 % (19-41); Mean Corp Hgb Conc 30.7 g/gl (32-36); Mean Corpuscular Hgb 27.9 pg (27.0-32.0); Mean Platelet Vol. 9.6 fl (6.2-12.0); Monocyte# 0.11 X10^3/uL; Monocyte% 1.2 % (0-10); Neutrophil # 8.29 X10^3/uL (2.7-7.7); POSITIVE COUNT NO; POSITIVE DIFFERENTIAL YES; POSITIVE MORPHOLOGY NO; Platelet Count 236 K/mm3 (150-450); RBC Distribution Width CV 17.5 % (11.6-14.6); RBC Distribution Width SD 55.8 fl (35.1-43.9); White Blood Count 8.8 K/mm3 (4.4-11.0)
[2018-08-21 03:45] LABS: Differential Indicated SCAN CRITERIA MET
[2018-08-21 04:08] LABS: ALB/GLOB Ratio 0.9 RATIO (0.9-2.4); AST(SGOT) 19 U/L (15-37); Alanine Aminotransfer ALT/SGPT 28 U/L (13-56); Alkaline Phosphatase 85 U/L (45-117); Anion Gap 9 (5-15); BUN 29 mg/dL (7-18); BUN/Creat Ratio 20.3 RATIO (10-20); Calcium,Total 8.5 mg/dL (8.5-10.1); Chloride 95 mmol/L (98-107); Cholesterol 117 mg/dL (200); Creatinine, Serum 1.43 mg/dL (0.55-1.02); EST Glomerular Filtration Rate 38 mL/min (>60); Est Glom Filt Rate - Afr Amer 46 mL/min (>60); Estimated Creatinine Clearance 29.85 ml/min; Globulin 3.4 g/dL (2.2-4.2); Glucose 267 mg/dL (74-106); High Density Lipoprotein 74 mg/dL; Potassium 3.5 mmol/L (3.5-5.1); Protein, Total 6.4 g/dL (6.4-8.2); Sodium Level 142 mmol/L (136-145); Thyroid Stim Hormone (TSH) 0.65 uIU/mL (0.358-3.74); Triglycerides 83 mg/dL; Very Low Density Lipoprotein 17 mg/dL (5-40)
--- NOTE | 2018-08-21 05:55 | EKG12_ITS ---
Test Reason : AM EKG Blood Pressure : / mmHG Vent. Rate : 076 BPM Atrial Rate : 076 BPM P-R Int : 170 ms QRS Dur : 098 ms QT Int : 416 ms P-R-T Axes : 064 041 062 degrees QTc Int : 468 ms Normal sinus rhythm Nonspecific ST abnormality Abnormal ECG When compared with ECG of 04-AUG-2018 07:08, No significant change was found Confirmed by CAROL DOVE, SUSAN ([id number]), avid editor ISABEL DWYER ([id number]) on 08/27/2018 7:04:18 AM Referred By: Jennifer Erickson Confirmed By:DEANNE MEDINA MD
--- NOTE | 2018-08-21 05:55 | RAD_ITS ---
HISTORY: SOBShort of Breath/DyspneaRAD - Chest EXAM: XR Chest 1 View COMPARISON: August 20, 2018 FINDINGS: LINES/DEVICES: Sternal wires. Mediastinal clips. LUNGS: There are chronic interstitial changes. No pneumothorax. No consolidation. Blunting to the left lateral costophrenic sulcus is less, but suggest small left pleural effusion. Elevation of the right hemidiaphragm is chronic MEDIASTINUM AND CARDIOVASCULAR STRUCTURES: Cardiac silhouette not enlarged. Central airways and mediastinal contour are unremarkable. Athersclerotic plaque within the aortic arch. BONES AND SOFT TISSUES: Thoracic spondylosis. RAD/Chest 1 View (Portable) IMPRESSION: Chronic interestitial changes. No radiographic evidence of acute cardiopulmonary disease. at 6004 Reported and signed by: Byron Kruse MD Electronically Signed: Byron Kruse MD at 5:25 EDT Tel , Service support ,
[2018-08-21] MEDS: Furosemide 40 MG/4 ML Vial IV ×3 (06:14→22:43)
[2018-08-21] MEDS: hydrALAZINE 50 MG Tablet 100 MG PO ×3 (06:14→22:45)
--- NOTE | 2018-08-21 06:50 | CON.PCM_ITS ---
Reason for Consult Date of Consultation: 08/21/18 Reason for Consultation: Respiratory failure History of Present Illness: The patient is a 72-year-old female, with a history as outlined below, who presented to the emergency department on August 20 with complaints of shortness of breath. The patient has a presumptive history of COPD and chronic hypoxemic respiratory failure. She was also just recently diagnosed with obstructive sleep apnea. The patient has yet to be set up with home BiPAP therapy. She reported to me that she was advised that it would take 6 to 8 weeks to get a machine. If you recall, the patient does have a smoking history of approximately 120 pack years, having quit completely 10 years ago. She has yet to undergo pulmonary function studies but is currently prescribed a triple therapy inhaler regimen in her home environment. At her baseline, the patient utilizes 3 L/min of supplemental oxygen. On presentation to the emergency department, the patient was noted to be afebrile and hypertensive with a blood pressure of 172/73. She was initially documented to be saturating 97% on 4 L/min. Laboratory evaluation revealed an elevated white blood cell count to 16,000. Chemistry profile was notable for a bicarbonate of 36 along with a creatinine of 1.35. Lactate was normal. Troponin was within normal limits. BNP was mildly elevated to 300. Plain film chest x-ray revealed evidence of an elevated right hemidiaphragm with pulmonary vascular congestion. An arterial blood gas was obtained on BiPAP 14/8 and revealed a pH of 7.43 with a corresponding PCO2 of 55 and PO2 of 108. The patient was started on Levaquin in the emergency department and provided with aerosol treatments and Solu-Medrol. Lasix was also initiated. The patient was placed on BiPAP and subsequently admitted to the medical intensive care unit. The patient was recently admitted to the hospital July 02 through July 09, during which time, she was treated empirically for a COPD exacerbation along with decompensated heart failure. The patient did follow-up in the pulmonary medicin e clinic, both on July 19 and again on August 08. At the time of her last office visit, the patient was placed on Dulera and Stiolto Respimat. There was also note of clinical concern for adrenal insufficiency, for which was recommended that the patient follow-up with an corporate development manager. The patient did complete a split-night sleep study in August 2018, for which it was recommended that she be on bilevel therapy with a pressure support of 17/13 centimeters of water. Past Medical History Past Medical History (Chronic Problems): Chronic Problems (Last Reviewed 08/08/18 @ 10:32 by TREVOR Hou) ELAINE (obstructive sleep apnea) (Chronic) CKD (chronic kidney disease), stage III (Chronic) Atherosclerotic heart disease of [place] coronary artery without angina pectoris (Chronic) NATHAN to the LAD, and SVG to the diagonal branch, and SVG to the LCx system, and an SVG to the RCA on 04/16/2013 at [facility] with Dr. 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 Fields Dyslipidemia (Chronic) COPD (chronic obstructive pulmonary disease) (Chronic) Diabetes mellitus type 2 in obese (Chronic) Medical History: Medical History (Last Reviewed 08/08/18 @ 10:32 by TREVOR Hou) Atherosclerotic heart disease of [place] coronary artery without angina pectoris (Chronic) I25.10 NATHAN to the LAD, and SVG to the diagonal branch, and SVG to the LCx system, and an SVG to the RCA on 04/16/2013 at [facility] with Dr. Fields Essential hypertension (Chronic) I10 Pulmonary hypertension (Chronic) I27.20 Morbid obesity with BMI of 40.0-44.9, adult (Chronic) E66.01, Z68.41 Dyslipidemia (Chronic) E78.5 COPD (chronic obstructive pulmonary disease) (Chronic) J44.9 Diabetes mellitus type 2 in obese (Chronic) E11.69, E66.9 CAD (coronary artery disease) (Inactive) I25.10 NATHAN to the LAD, and SVG to the diagonal branch, and SVG to the LCx system, and an SVG to the RCA on 04/16/2013 at [facility] with Dr. Fields Allergies Penicillins Allergy (Verified 08/20/18 13:54) Hives adhesive tape Adverse Reaction (Verified 08/20/18 13:54) Other Home Medications: Ambulatory Orders Medication Instructions Recorded Amitriptyline HCl [Elavil] 100 mg PO QHS 04/09/13 metFORMIN (XR) [Glucophage Xr] 500 mg PO DAILY 12/25/16 Aspirin E.C. [Ecotrin] 81 mg PO DAILY 10/25/17 Atorvastatin Calcium 80 mg PO DAILY 10/25/17 Gabapentin [Neurontin] 300 mg PO .COMPLEX 10/25/17 Amlodipine Besylate 10 mg PO DAILY 06/01/18 Ferrous Sulfate 325 mg PO 1200,1700 #120 tab 07/09/18 Furosemide [Lasix] 40 mg PO BID@1000,1800 #120 tab 07/09/18 Potassium Chloride 20 meq PO DAILY #60 tab.er.prt 07/09/18 carvedilol 6.25 mg tablet 6.25 mg PO BID #60 tab 07/31/18 isosorbide mononitrate ER 60 mg 60 mg PO DAILY #60 tab 07/31/18 tablet,extended release 24 hr mometasone-formoterol HFA 200 2 puff INHALATION BID #13 g 08/08/18 mcg-5 mcg/actuation aerosol inhaler tiotropium 2.5 mcg-olodaterol 2.5 2 puff INHALATION DAILY #4 g 08/08/18 mcg/actuation mist for inhalation Albuterol Sulfate 1.25 mg IH 4X/DAY 08/20/18 Doxazosin Mesylate 8 mg PO QHS 08/20/18 Hydralazine HCl 100 mg PO TID 08/20/18 Omeprazole 40 mg PO DAILY 08/20/18 Prednisone 10 mg PO DAILY 08/20/18 Surgical History: Surgical History (Last Reviewed 08/08/18 @ 10:32 by TREVOR Hou) 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 Fields Surgical History: appendectomy, cholecystectomy, - - CABG x4, cholecystectomy, appendectomy, left lower extremity vein stripping, tonsillectomy. 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 Smoking Status: Former smoker - Patient quit cigarette tobacco usage approximately 10 years prior with at that time 3 pack/day sick or tobacco use. Tobacco Use: Non-smoker Alcohol: None Drugs: None - *Family History Paternal Family History: Family History (Last Reviewed 08/08/18 @ 10:32 by TREVOR Hou) Mother Heart disease History Items: - - Patient notes a paternal family history of chronic COPD with tobacco use, heart disease and diabetes. Maternal Family History: Family History (Last Reviewed 08/08/18 @ 10:32 by TREVOR Hou) Mother Heart disease History Items: - - Patient notes a maternal family history of heart disease and diabetes. Review of Systems Constitutional: Reports: Weight Change. Denies: Chills, Fever Eyes: Denies: Blurred vision, Double vision HEENT: Denies: Head Aches, Sinus Congestion, Sinus Drainage Cardiovascular: Reports: Edema Respiratory: Reports: Shortness of Breath, Wheezing. Denies: Cough Gastrointestinal: Reports: Abdominal Pain Genitourinary: Denies: Dysuria Musculoskeletal: Denies: Joint Pain, Joint Tenderness Skin: Denies: Rash, Wounds Neurological: Denies: Numbness, Tingling, Focal weakness Psychiatric: Denies: Anxiety, Depression, Homicidal Ideations, Suicidal Ideations Hematologic/ Lymphatic: Denies: Easy Bruising, Easy Bleeding Objective: The patient's most recent lab work, culture data and imaging studies have all been personally reviewed. Strep and urine Legionella antigens were both negative. Respiratory viral panel is pending. Blood cultures are pending. - Physical Exam General: Alert, Cooperative, No apparent distress HEENT: Atraumatic, PERRLA, Normocephalic Oral: No Gingival or Mucosal Lesions/ Ulcerations Neck: Supple, No Nodes, Trachea Midline Lungs: Diminished, Rales, Wheezes Cardiovascular: Regular rate, Regular Rhythm, Normal S1, Normal S2, No murmurs Abdomen: Bowel Sounds Present, Soft, Non Tender, Obese Extremities: No clubbing, No cyanosis, Edema Skin: No breakdown Musculoskeletal: No Tenderness to Palpation of Joints or Extremities Lymphatic: No Cervical, Supraclavicular, or Inguinal Adenopathy Neurological: Neuro grossly intact Psych/Mental Status: Flat Affect Vital Signs Temp Pulse Resp BP Pulse Ox 98.0 F 85 15 148/60 H 92 08/21/18 04:00 08/21/18 06:14 08/21/18 06:00 08/21/18 06:14 08/21/18 06:00 Oxygen Flow Rate (L/min) 2 Oxygen Delivery Method Bi-pap Weight: 257 lb 11.526 oz Body Mass Index (BMI) 45.2 Finger Stick Blood Glucose 155 Intake and Output for Last 24 Hours 08/19/18 08/20/18 08/21/18 23:59 23:59 23:59 Intake Total 584 / 584 60 / 60 Output Total 700 / 700 Balance -116 / -116 60 / 60 Microbiology Past 72 Hours 08/21/18 00:45 Legionella Antigen - Final Interface Orders Streptococcus pneumoniae Antigen (M - Final Laboratory Tests Past 24 Hrs 08/20/18 08/20/18 08/20/18 14:10 14:10 14:10 WBC 15.9 H RBC 2.99 L Hgb 8.3 L Hct 27.4 L MCV 91.6 MCH 27.8 MCHC 30.3 L RDW 18.0 H RDW Differential 60.7 H Plt Count 234 MPV 9.5 Immature Gran % (Auto) 1.100 H Neut % (Auto) 87.3 H Lymph % (Auto) 3.1 L [place] % (Auto) 7.8 Eos % (Auto) 0.6 Baso % (Auto) 0.1 Absolute Neuts (auto) 13.9 H Absolute Lymphs (auto) 0.49 L Total Counted Not Reportable Differential Comment COMMENT Specimen Type Sample Site pH Bicarbonate Actual POC Total CO2 Base Excess O2 Saturation O2 % ABG pCO2 ABG pO2 Respiration Rate O2 Delivery Device EPAP IPAP Blood Gas Notified Whom Blood Gas Notified Time Sodium 137 Potassium 3.5 Chloride 94 L Carbon Dioxide 36.0 H Anion Gap 7 BUN 29 H Creatinine 1.35 H Estim Creat Clear Calc 31.62 Est GFR (MDRD) Af Amer 50 L Est GFR (MDRD) Non-Af 41 L BUN/Creatinine Ratio 21.5 H Glucose 259 H Lactic Acid Calcium 9.1 Magnesium Total Bilirubin AST ALT Alkaline Phosphatase Troponin I 0.015 B-Natriuretic Peptide 299.1 H Total Protein Albumin Globulin Albumin/Globulin Ratio Triglycerides Cholesterol LDL Cholesterol VLDL Cholesterol HDL Cholesterol TSH 08/20/18 08/20/18 08/20/18 14:10 14:10 14:31 WBC RBC Hgb Hct MCV MCH MCHC RDW RDW Differential Plt Count MPV Immature Gran % (Auto) Neut % (Auto) Lymph % (Auto) [place] % (Auto) Eos % (Auto) Baso % (Auto) Absolute Neuts (auto) Absolute Lymphs (auto) Total Counted Differential Comment Specimen Type ART Sample Site L Brachial pH 7.43 Bicarbonate Actual 36.4 H POC Total CO2 38 Base Excess 12 H O2 Saturation 98 O2 % 40 ABG pCO2 55.1 H ABG pO2 108 H Respiration Rate 12 O2 Delivery Device Bi / C PAP EPAP 8 IPAP 14 Blood Gas Notified Whom ED MD Blood Gas Notified Time 1429 Sodium Potassium Chloride Carbon Dioxide Anion Gap BUN Creatinine Estim Creat Clear Calc Est GFR (MDRD) Af Amer Est GFR (MDRD) Non-Af BUN/Creatinine Ratio Glucose Lactic Acid 0.7 Calcium Magnesium 1.6 Total Bilirubin AST ALT Alkaline Phosphatase Troponin I B-Natriuretic Peptide Total Protein Albumin Globulin Albumin/Globulin Ratio Triglycerides Cholesterol LDL Cholesterol VLDL Cholesterol HDL Cholesterol TSH 08/21/18 08/21/18 03:35 03:35 WBC 8.8 RBC 2.90 L Hgb 8.1 L Hct 26.4 L MCV 91.0 MCH 27.9 MCHC 30.7 L RDW 17.5 H RDW Differential 55.8 H Plt Count 236 MPV 9.6 Immature Gran % (Auto) 1.200 H Neut % (Auto) 94.0 H Lymph % (Auto) 3.5 L [place] % (Auto) 1.2 Eos % (Auto) 0.0 Baso % (Auto) 0.1 Absolute Neuts (auto) 8.3 H Absolute Lymphs (auto) 0.31 L Total Counted Not Reportable Differential Comment Specimen Type Sample Site pH Bicarbonate Actual POC Total CO2 Base Excess O2 Saturation O2 % ABG pCO2 ABG pO2 Respiration Rate O2 Delivery Device EPAP IPAP Blood Gas Notified Whom Blood Gas Notified Time Sodium 142 Potassium 3.5 Chloride 95 L Carbon Dioxide 38.0 H Anion Gap 9 BUN 29 H Creatinine 1.43 H Estim Creat Clear Calc 29.85 Est GFR (MDRD) Af Amer 46 L Est GFR (MDRD) Non-Af 38 L BUN/Creatinine Ratio 20.3 H Glucose 267 H Lactic Acid Calcium 8.5 Magnesium Total Bilirubin 0.60 AST 19 ALT 28 Alkaline Phosphatase 85 Troponin I B-Natriuretic Peptide Total Protein 6.4 Albumin 3.0 L Globulin 3.4 Albumin/Globulin Ratio 0.9 Triglycerides 83 Cholesterol 117 LDL Cholesterol 26 VLDL Cholesterol 17 HDL Cholesterol 74 TSH 0.65 POC Glucose 08/20/18 08/20/18 23:00 16:56 POC Glucose 311 H 303 H Clinical Impression(s) from Imaging Studies Chest X-Ray 08/20/18 14:01 IMPRESSION: Findings in keeping with a mild degree of CHF with superimposed atelectasis and/or infiltrates at the lung bases worse on the left side. Electronically Signed: Peter Josef, at 14:29 EDT , Service support , Chest X-Ray 08/21/18 05:55 IMPRESSION: Chronic interestitial changes. No radiographic evidence of acute cardiopulmonary disease. at 0526 Reported and signed by: Byron Kruse MD Electronically Signed: Byron Kruse MD at 5:25 EDT Tel , Service support , Assessment/Plan RECOMMENDATIONS: 1. Cautious use of sedating medications, including opiates and benzodiazepines. 2. Continue BiPAP therapy with a pressure support of 17/13 with naps and nightly. 3. Continue bronchodilators. 4. Transition from IV steroids to prednisone 40 mg daily by mouth. 5. Continue scheduled Lasix regimen. 6. Orders have been signed for the patient's home BiPAP therapy. [facility] to come to the hospital to set the patient's machine up. 7. Outpatient pulmonary follow-up so that baseline pulmonary function studies can be obtained. 8. The patient can be transferred out of the intensive care unit, from my perspective. IMPRESSIONS: 1. Acute on chronic combined respiratory failure Most likely secondary to decompensated heart failure. The patient does have presumptive underlying COPD of unknown severity and is currently on a triple therapy inhaler regimen. There was some concern noted previously that the patient may have relative adrenal insufficiency due to the frequency with which she is prescribed prednisone. Therefore, I would plan to continue co rticosteroids with slow de-escalation planned. Continue bronchodilators as ordered. Continue scheduled Lasix regimen as well. Low clinical index of suspicion for underlying pulmonary infectious process. 2. Obstructive sleep apnea The patient recently completed a sleep study which revealed the need for bilevel therapy on a nocturnal basis with a pressure support of 17/13 centimeters of water. The patient and her family reported that they were initially told it would be 6 to 8 weeks before the machine could be set up. I did speak personally with her DME provider this afternoon. Orders for the patient's BiPAP were signed. They indicated to me that they would be able to come to the hospital to set her up on her therapy prior to her discharge. The ventilatory support offered by BIPAP should help prevent any further episodes of acute CO2 retention. 3. Heart failure with preserved ejection fraction/pulmonary hypertension/coronary artery disease Continue diuretic regimen as ordered. 4. Long-standing tobacco abuse history, now in remission/chronic kidney disease/diabetes mellitus/hypertension/hyperlipidemia/obesity Complicates care, management, recovery and prognosis. Continue home medications as indicated. Recommend close outpatient pulmonary follow-up. The patient undoubtedly needs to have pulmonary function studies completed. This note was generated with [employer] dictation software. It may contain incorrect words, spelling, and punctuation that were not noted in checking the note before signing. Code Visit Inpatient E&M: 48437 Init Hosp L3
[2018-08-21] MEDS: Ipratropium/Albuterol Sulfate 3 ML AMPUL.NEB INHALATION ×5 (06:52→23:14)
[2018-08-21] MEDS: Insulin Lispro 100 UNIT/ML INSULN.PEN SC ×4 (08:26→22:46)
[2018-08-21] MEDS: Gabapentin 300 MG Capsule PO (08:28)
[2018-08-21] MEDS: Carvedilol 6.25 MG Tablet PO ×2 (08:28→22:45)
[2018-08-21] MEDS: Heparin Injection (Vial) 5,000 UNIT/ML VIAL 5000 UNIT SC ×2 (08:29→22:44)
[2018-08-21] MEDS: amLODIPine 10 MG Tablet PO (08:29)
[2018-08-21] MEDS: Aspirin E.C. 81 MG Tablet PO (08:34)
[2018-08-21] MEDS: Ceftriaxone 1 GM/50 ML BAG IV (08:34)
[2018-08-21] MEDS: Pantoprazole Sodium 40 MG Tablet PO (08:34)
[2018-08-21 08:36] LABS: Bedside Glucose 274 mg/dL (70-110)
--- NOTE | 2018-08-21 10:03 | PN_ITS ---
Subjective: Chief complaint: Follow-up after admission for acute on chronic hypoxic and hypercapnic respiratory failure attributed to acute COPD exacerbation and acute on chronic diastolic CHF. Patient seen and examined. No acute events overnight. She is alert and oriented x3. She mentioned that her breathing is minimally better. She is still requiring oxygen. Denied cough or sputum production. Denied chest pain or palpitation. Denied abdominal pain or nausea vomiting. She has been afebrile, heart rate stable, blood pressure slightly elevated, pulse ox is maintained on 2 L. - Physical Exam General: Alert, Oriented x3, Cooperative, - - Moderately short of breath. HEENT: Atraumatic, PERRLA, EOMI, Normocephalic Oral: Moist Mucosa, No Gingival or Mucosal Lesions/ Ulcerations Neck: Supple, No JVD, Negative Carotid Bruits, Trachea Midline, Thyroid Normal Size and Texture Lungs: Diminished, Rales, Rhonchi, Short of Breath, Wheezes, - - Markedly decreased breath sounds bilateral, bilateral expiratory wheezes, rhonchi. Cardiovascular: Regular rate, Regular Rhythm, Normal S1, Normal S2, PMI Normal Abdomen: Bowel Sounds Present, Soft, Non Tender, Non-Distended, No Hepato- splenomegaly, Obese Extremities: No clubbing, No cyanosis, Edema - ++ Edema. Skin: No rashes, No breakdown Lymphatic: No Cervical, Supraclavicular, or Inguinal Adenopathy Neurological: Cranial nerves II-XII grossly intact, Motor Exam 5/5 strength throughout Psych/Mental Status: Normal Affect, Appropriate Vital Signs Temp Pulse Resp BP Pulse Ox 98.5 F 92 16 172/70 H 91 08/21/18 07:00 08/21/18 08:00 08/21/18 08:00 08/21/18 08:00 08/21/18 08:00 Oxygen Flow Rate (L/min) 2 Oxygen Delivery Method Nasal Cannula Weight: 257 lb 11.526 oz Body Mass Index (BMI) 45.2 Finger Stick Blood Glucose 155 Intake and Output for Last 24 Hours 08/19/18 08/20/18 08/21/18 23:59 23:59 23:59 Intake Total 584 / 584 60 / 60 Output Total 700 / 700 Balance -116 / -116 60 / 60 Microbiology Past 72 Hours 08/20/18 18:45 Respiratory Panel (PCR) - Final Mucosa - Nasopharyngeal 08/21/18 00:45 Legionella Antigen - Final Interface Orders Streptococcus pneumoniae Antigen (M - Final Laboratory Tests Past 24 Hrs 08/20/18 08/20/18 08/20/18 14:10 14:10 14:10 WBC 15.9 H RBC 2.99 L Hgb 8.3 L Hct 27.4 L MCV 91.6 MCH 27.8 MCHC 30.3 L RDW 18.0 H RDW Differential 60.7 H Plt Count 234 MPV 9.5 Immature Gran % (Auto) 1.100 H Neut % (Auto) 87.3 H Lymph % (Auto) 3.1 L [place] % (Auto) 7.8 Eos % (Auto) 0.6 Baso % (Auto) 0.1 Absolute Neuts (auto) 13.9 H Absolute Lymphs (auto) 0.49 L Total Counted Not Reportable Differential Comment COMMENT Specimen Type Sample Site pH Bicarbonate Actual POC Total CO2 Base Excess O2 Saturation O2 % ABG pCO2 ABG pO2 Respiration Rate O2 Delivery Device EPAP IPAP Blood Gas Notified Whom Blood Gas Notified Time Sodium 137 Potassium 3.5 Chloride 94 L Carbon Dioxide 36.0 H Anion Gap 7 BUN 29 H Creatinine 1.35 H Estim Creat Clear Calc 31.62 Est GFR (MDRD) Af Amer 50 L Est GFR (MDRD) Non-Af 41 L BUN/Creatinine Ratio 21.5 H Glucose 259 H Lactic Acid Calcium 9.1 Magnesium Total Bilirubin AST ALT Alkaline Phosphatase Troponin I 0.015 B-Natriuretic Peptide 299.1 H Total Protein Albumin Globulin Albumin/Globulin Ratio Triglycerides Cholesterol LDL Cholesterol VLDL Cholesterol HDL Cholesterol TSH 08/20/18 08/20/18 08/20/18 14:10 14:10 14:31 WBC RBC Hgb Hct MCV MCH MCHC RDW RDW Differential Plt Count MPV Immature Gran % (Auto) Neut % (Auto) Lymph % (Auto) [place] % (Auto) Eos % (Auto) Baso % (Auto) Absolute Neuts (auto) Absolute Lymphs (auto) Total Counted Differential Comment Specimen Type ART Sample Site L Brachial pH 7.43 Bicarbonate Actual 36.4 H POC Total CO2 38 Base Excess 12 H O2 Saturation 98 O2 % 40 ABG pCO2 55.1 H ABG pO2 108 H Respiration Rate 12 O2 Delivery Device Bi / C PAP EPAP 8 IPAP 14 Blood Gas Notified Whom ED Blood Gas Notified Time 1429 Sodium Potassium Chloride Carbon Dioxide Anion Gap BUN Creatinine Estim Creat Clear Calc Est GFR (MDRD) Af Amer Est GFR (MDRD) Non-Af BUN/Creatinine Ratio Glucose Lactic Acid 0.7 Calcium Magnesium 1.6 Total Bilirubin AST ALT Alkaline Phosphatase Troponin I B-Natriuretic Peptide Total Protein Albumin Globulin Albumin/Globulin Ratio Triglycerides Cholesterol LDL Cholesterol VLDL Cholesterol HDL Cholesterol TSH 08/21/18 08/21/18 03:35 03:35 WBC 8.8 RBC 2.90 L Hgb 8.1 L Hct 26.4 L MCV 91.0 MCH 27.9 MCHC 30.7 L RDW 17.5 H RDW Differential 55.8 H Plt Count 236 MPV 9.6 Immature Gran % (Auto) 1.200 H Neut % (Auto) 94.0 H Lymph % (Auto) 3.5 L [place] % (Auto) 1.2 Eos % (Auto) 0.0 Baso % (Auto) 0.1 Absolute Neuts (auto) 8.3 H Absolute Lymphs (auto) 0.31 L Total Counted Not Reportable Differential Comment Specimen Type Sample Site pH Bicarbonate Actual POC Total CO2 Base Excess O2 Saturation O2 % ABG pCO2 ABG pO2 Respiration Rate O2 Delivery Device EPAP IPAP Blood Gas Notified Whom Blood Gas Notified Time Sodium 142 Potassium 3.5 Chloride 95 L Carbon Dioxide 38.0 H Anion Gap 9 BUN 29 H Creatinine 1.43 H Estim Creat Clear Calc 29.85 Est GFR (MDRD) Af Amer 46 L Est GFR (MDRD) Non-Af 38 L BUN/Creatinine Ratio 20.3 H Glucose 267 H Lactic Acid Calcium 8.5 Magnesium Total Bilirubin 0.60 AST 19 ALT 28 Alkaline Phosphatase 85 Troponin I B-Natriuretic Peptide Total Protein 6.4 Albumin 3.0 L Globulin 3.4 Albumin/Globulin Ratio 0.9 Triglycerides 83 Cholesterol 117 LDL Cholesterol 26 VLDL Cholesterol 17 HDL Cholesterol 74 TSH 0.65 POC Glucose 08/21/18 08/20/18 08/20/18 08:24 23:00 16:56 POC Glucose 274 H 311 H 303 H Clinical Impression(s) from Imaging Studies Chest X-Ray 08/20/18 14:01 IMPRESSION: Findings in keeping with a mild degree of CHF with superimposed atelectasis and/or infiltrates at the lung bases worse on the left side. Electronically Signed: Peter Bahena, at 14:29 EDT , Service support , Chest X-Ray 08/21/18 05:55 IMPRESSION: Chronic interestitial changes. No radiographic evidence of acute cardiopulmonary disease. at 0526 Reported and signed by: Byron Kruse MD Electronically Signed: Byron Kruse MD at 5:25 EDT Tel , Service support , Medical Necessity - Tobacco Use Smoking Status: Former smoker - Patient quit cigarette tobacco usage approximately 10 years prior with at that time 3 pack/day sick or tobacco use. Tobacco Use: Non-smoker Assessment/Plan All Active Problems (Last Reviewed 08/08/18 @ 10:32 by TREVOR Hou) Acute respiratory failure with hypoxia (Acute) Acute exacerbation of chronic obstructive pulmonary disease (COPD) (Acute) This is a 72 years old female patient presented to the emergency room because of worsening shortness of breath, mild productive cough and she was found to have acute on chronic hypoxic and hypercapnic respiratory failure secondary to acute COPD exacerbation as well as acute on chronic diastolic CHF and also found to have acute encephalopathy attributed to metabolic versus infectious etiology. #1 acute on chronic hypoxic and hypercapnic respiratory failure: Multifactorial secondary to acute COPD exacerbation acute CHF as well as obstructive sleep apnea as she is not currently on BiPAP. ABG revealed pH of 7.34, PCO2 of 55 and PO2 of 108. Patient was very dyspneic and tachypneic. Chest x-ray revealed mild bilateral pulmonary vascular congestion. EKG revealed no acute ischemic changes. Patient is on IV antibiotics, IV steroids, IV diuretics and bronchodilators. Pulse ox is maintained on 2 L of oxygen. Plan to transfer to PCU. #2 acute COPD exacerbation: Chest x-ray reviewed as above. She is on IV antibiotics, IV steroids and bronchodilators. She still having significant wheezing, markedly decreased breath sounds on auscultation. Plan to continue same treatment. #3 acute on chronic diastolic CHF: She is on IV Lasix, continued on Coreg, hydralazine and nitrates. She had a 2D echocardiogram on June, that revealed ejection fraction of 60%, stage II diastolic dysfunction. Plan to continue IV Lasix, repeat BMP tomorrow morning. #4 chronic anemia: Baseline hemoglobin around 10 to 11 g/dL, but has been trending down to 8 g/dL recently. It is normocytic anemia. No evidence of active bleeding. Plan to monitor, transfuse if hemoglobin less than 8 g/dL. #5 stage III chronic kidney disease: Baseline creatinine has been around 1.3 to 2.4 mg/dL, has been fluctuating significantly. Today's creatinine is 1.43, stable at baseline. Plan to continue iron supplement, monitor. #6 CAD status post CABG: Patient denies any chest pain, troponin is negative. EKG without acute ischemic changes. Continue aspirin, statins, Coreg, hydralazine and nitrates. #7 type 2 diabetes mellitus: Blood sugars in 300s, likely because of IV steroids. She is on insulin sliding scale. Metformin held. I will start her on Levemir insulin twice daily while on IV steroids. #8 hypertension: Blood pressure slightly elevated, continue Norvasc, Coreg, IV Lasix, hydralazine and nitrates as well as IV hydrazine as needed. #9 hyperlipidemia: Continue statins. #10 obstructive sleep apnea: Patient supposed to be on BiPAP but she did not get the machine yet from the insurance company. She was told that it needs 4 to 6 weeks to get the machine. Plan to get the machine to the patient before discharge. #11 DVT prophylaxis: Subcu heparin. #12 CODE STATUS: Admission, CODE STATUS discussed with the patient's and her family and they agreed to be on full code. Today, patient's granddaughter mentioned that the patient wants to change her CODE STATUS to DNR CCA. I spoke with the patient, her son and her granddaughter in details about different types of CODE STATUS including full code, DNR CC and DNR CCA. They elected to go with DNR CCA, no intubation, no mechanical ventilation, no aggressive treatment and we will keep medical treatment for now. This note was generated with [employer] software. It may contain incorrect words, spelling, and punctuation that were not noted in checking the note before signing. Code Visit Inpatient E&M: 35279 [facility] Hosp L3
--- NOTE | 2018-08-21 10:38 | CASEMGMT ---
Addendum entered by Aj Blankenship 08/21/18 10:56: Call to [facility] to find out about Bipap order. Per Nichole @ [facility], they have not received script yet. Called to Josie Resp Oh who states she has been in contact with Marcela conde/[facility] sleep lab and has contacted Dr. Aldrich to have script signed. RN KATIA let Josie know [facility] is her DME provider and script will be faxed to [facility]. Per Josie, this should be able to be set up closer to dc and prior to dc from hospital. Opal SUTTON Original Note: RN CM Assessment Presentation: Respiratory Failure with Hypoxia Intro role of CM and purpose of RN CM assessment. Demographics, PCP and Pharmacy verified. PCP: Dr. Laird Specialists: Dr. Clarke (cardiology), Lia Meléndez NP (pulmonology) [facility] Insurance: [facility] Prescription Benefit: yes LNOK: Doris Robertson, daughter Living Arrangements: Pt lives with daughter Doris in one story home with 4 steps into home. Pt states she is independent in ADL's except showering. Daughter is able to assist. No additional care needs identified @ this time. Transportation: family drives DME: walker, cane, Oxygen continuous through [facility]. States she has portable tanks and concentrator. -Bipap being ordered through [facility]. [facility] is looking into how soon pt will have this ordered for patient. HHC: past-[facility]. Pt is declining HHS on dc from this admission. Patient DC goals: Home with family DC PLAN: Home with family support. PT/OT evaluations pending. RANDY CM available if dc needs arise. Opal KAYEM
[2018-08-21] MEDS: Isosorbide Mononitrate 60 MG Tablet PO (11:20)
[2018-08-21 11:31] LABS: Bedside Glucose 316 mg/dL (70-110)
[2018-08-21] MEDS: Ferrous Sulfate 325 MG Tablet PO ×2 (11:36→17:30)
[2018-08-21] MEDS: 0.9% NaCl Peripheral Flush Adult/Peds IV (14:17)
--- NOTE | 2018-08-21 16:51 | CHAPLAIN ---
Type of Pastoral Visit _x__ Initial Visit ___ Follow-up Visit ___ On-call Visit ___ General Patient Visit ___ Spiritual Assessment ___ Family Conference ___ Bereavement ___ Rapid Response ___ Code Blue ___ Other (describe below) Pastoral Care Referral From _x__ Patient ___ Family ___ Nurse ___ Physician ___ Ultrasonic Seaming Machine Operator ___ Block Tester ___ Other (describe below) Sacrament/Intervention _x__ Active listening ___ Anointing ___ Hindu ___ Bereavement ___ Communion ___ Nichole exploration ___ _x__ Life review _x__ Prayer ___ Reconciliation ___ Sacrament of Sick _x__ Supportive presence ___ Wedding ___ Other (describe below) Pastoral Comments several admissions in recent weeks; daughter is with pt; offer of support received; currently unchurched
[2018-08-21 17:45] LABS: Bedside Glucose 416 mg/dL (70-110)
[2018-08-21] MEDS: Atorvastatin Calcium 80 MG Tablet PO (22:43)
[2018-08-21] MEDS: Gabapentin 300 MG Capsule 600 MG PO (22:44)
[2018-08-21] MEDS: Doxazosin 4 MG Tablet 8 MG PO (22:45)
[2018-08-21] MEDS: Amitriptyline 100 MG Tablet PO (22:46)
[2018-08-21 23:41] LABS: Bedside Glucose 358 mg/dL (70-110)
[2018-08-22] VITALS (14 sets, daily range): BP systolic 120–149; BP diastolic 54–83; PULSE 70–89; RESP 12–20; TEMP 36.6–36.9; O2SAT 94–98
--- NOTE | 2018-08-22 00:35 | NURSING ---
Gave report to Jessica PADILLA at this time, no longer taking care of pt.
[2018-08-22 05:22] LABS: Absolute Lymphocyte Count 0.72 X10^3/ul (0.83-4.51); Absolute Neutrophil Count 8.6 X10^3/uL (2.0-7.7); Basophil# 0.01 X10^3/uL; Basophil% 0.1 % (0-1); Eosinophil# 0.01 X10^3/uL; Eosinophils% 0.1 % (0-5); Hematocrit 27.2 % (37-47); Hemoglobin 8.1 g/dl (12.0-15.0); Lymphocyte # 0.72 X10^3/ul (4.0); Lymphocyte % 7.1 % (19-41); Mean Corp Hgb Conc 29.8 g/gl (32-36); Mean Corpuscular Hgb 27.3 pg (27.0-32.0); Mean Corpuscular Volume 91.6 fL (81-99); Mean Platelet Vol. 9.7 fl (6.2-12.0); Monocyte# 0.78 X10^3/uL; Monocyte% 7.7 % (0-10); Neutrophil # 8.55 X10^3/uL (2.7-7.7); Neutrophil % 83.8 % (47-70); Platelet Count 249 K/mm3 (150-450); RBC Distribution Width CV 17.8 % (11.6-14.6); RBC Distribution Width SD 57.2 fl (35.1-43.9); Red Blood Count 2.97 M/mm3 (4.2-5.4); White Blood Count 10.2 K/mm3 (4.4-11.0)
[2018-08-22 05:26] LABS: POSITIVE COUNT NO; POSITIVE DIFFERENTIAL NO; POSITIVE MORPHOLOGY NO
[2018-08-22 06:02] LABS: Anion Gap 10 (5-15); BUN 38 mg/dL (7-18); BUN/Creat Ratio 22.2 RATIO (10-20); Calcium,Total 8.6 mg/dL (8.5-10.1); Chloride 96 mmol/L (98-107); Creatinine, Serum 1.71 mg/dL (0.55-1.02); EST Glomerular Filtration Rate 31 mL/min (>60); Est Glom Filt Rate - Afr Amer 38 mL/min (>60); Estimated Creatinine Clearance 24.96 ml/min; Glucose 200 mg/dL (74-106); Potassium 3.3 mmol/L (3.5-5.1); Sodium Level 141 mmol/L (136-145)
[2018-08-22] MEDS: hydrALAZINE 50 MG Tablet 100 MG PO ×2 (06:38→16:17)
[2018-08-22] MEDS: 0.9% NaCl Peripheral Flush Adult/Peds IV ×2 (06:38→10:09)
[2018-08-22] MEDS: Insulin Lispro 100 UNIT/ML INSULN.PEN SC ×3 (06:39→16:23)
[2018-08-22] MEDS: Furosemide 40 MG/4 ML Vial IV (06:39)
[2018-08-22] MEDS: Ipratropium/Albuterol Sulfate 3 ML AMPUL.NEB INHALATION ×3 (06:44→15:04)
[2018-08-22 07:00] LABS: Bedside Glucose 173 mg/dL (70-110)
--- NOTE | 2018-08-22 07:56 | PN_ITS ---
Subjective: Chief complaint: Follow-up after admission for acute on chronic hypoxic and hypercapnic respiratory failure attributed to acute COPD exacerbation and acute on chronic diastolic CHF. Patient seen and examined. No acute events overnight. This morning, she reported improvement of her shortness of breath, feeling better. She tolerated BiPAP last night. Her vital signs are stable, pulse ox is maintained on 2 L. - Physical Exam General: Alert, Oriented x3, Cooperative, No apparent distress HEENT: Atraumatic, PERRLA, EOMI, Normocephalic Oral: Moist Mucosa, No Gingival or Mucosal Lesions/ Ulcerations Neck: Supple, No JVD, Negative Carotid Bruits, Trachea Midline, Thyroid Normal Size and Texture Lungs: No rales, Diminished, Rhonchi, Wheezes, - - Decreased breath sounds bilateral, bilateral expiratory wheezes. Scattered rhonchi. Cardiovascular: Regular rate, Regular Rhythm, Normal S1, Normal S2, PMI Normal Abdomen: Bowel Sounds Present, Soft, Non Tender, Non-Distended, No Hepato- splenomegaly Extremities: No clubbing, No cyanosis, Edema Skin: No rashes, No breakdown Lymphatic: No Cervical, Supraclavicular, or Inguinal Adenopathy Neurological: Cranial nerves II-XII grossly intact, Neuro grossly intact Psych/Mental Status: Normal Affect, Appropriate Vital Signs Temp Pulse Resp BP Pulse Ox 98.5 F 84 17 120/83 H 96 08/22/18 04:30 08/22/18 07:18 08/22/18 05:34 08/22/18 06:38 08/22/18 05:34 Oxygen Flow Rate (L/min) 2 Oxygen Delivery Method Bi-pap Weight: 254 lb 6.615 oz Body Mass Index (BMI) 45.2 Finger Stick Blood Glucose 155 Intake and Output for Last 24 Hours 08/20/18 08/21/18 08/22/18 23:59 23:59 23:59 Intake Total 584 / 584 501 / 501 Output Total 700 / 700 Balance -116 / -116 501 / 501 Microbiology Past 72 Hours 08/20/18 18:45 Respiratory Panel (PCR) - Final Mucosa - Nasopharyngeal 08/21/18 00:45 Legionella Antigen - Final Interface Orders Streptococcus pneumoniae Antigen (M - Final Laboratory Tests Past 24 Hrs 08/22/18 08/22/18 04:50 04:50 WBC 10.2 RBC 2.97 L Hgb 8.1 L Hct 27.2 L MCV 91.6 MCH 27.3 MCHC 29.8 L RDW 17.8 H RDW Differential 57.2 H Plt Count 249 MPV 9.7 Immature Gran % (Auto) 1.200 H Neut % (Auto) 83.8 H Lymph % (Auto) 7.1 L [place] % (Auto) 7.7 Eos % (Auto) 0.1 Baso % (Auto) 0.1 Absolute Neuts (auto) 8.6 H Absolute Lymphs (auto) 0.72 L Total Counted Not Reportable Sodium 141 Potassium 3.3 L Chloride 96 L Carbon Dioxide 35.0 H Anion Gap 10 BUN 38 H Creatinine 1.71 H Estim Creat Clear Calc 24.96 Est GFR (MDRD) Af Amer 38 L Est GFR (MDRD) Non-Af 31 L BUN/Creatinine Ratio 22.2 H Glucose 200 H Calcium 8.6 POC Glucose 08/22/18 08/21/18 08/21/18 06:37 22:42 17:26 POC Glucose 173 H 358 H 416 H 08/21/18 08/21/18 11:25 08:24 POC Glucose 316 H 274 H Medical Necessity - Tobacco Use Smoking Status: Former smoker - Patient quit cigarette tobacco usage approximately 10 years prior with at that time 3 pack/day sick or tobacco use. Tobacco Use: Non-smoker Assessment/Plan All Active Problems (Last Reviewed 08/08/18 @ 10:32 by Lia Meléndez NP-C) Acute respiratory failure with hypoxia (Acute) Acute exacerbation of chronic obstructive pulmonary disease (COPD) (Acute) This is a 72 years old female patient presented to the emergency room because of worsening shortness of breath, mild productive cough and she was found to have acute on chronic hypoxic and hypercapnic respiratory failure secondary to acute COPD exacerbation as well as acute on chronic diastolic CHF and also found to have acute encephalopathy attributed to metabolic versus infectious etiology. #1 acute on chronic hypoxic and hypercapnic respiratory failure: Respiratory status stabilized. Patient tolerated BiPAP overnight. This morning, pulse ox is maintained on 2 L of oxygen. It is multifactorial secondary to acute COPD exacerbation acute CHF as well as obstructive sleep apnea as she is not currently on BiPAP. ABG revealed pH of 7.34, PCO2 of 55 and PO2 of 108. Patient is on IV antibiotics, oral prednisone, IV diuretics and bronchodilators. Plan: DC IV Lasix, start p.o. Lasix, replace potassium, awaiting arrangement for BiPAP at home. #2 acute COPD exacerbation: Chest x-ray reviewed as above. She is on IV antibiotics, oral prednisone and bronchodilators. Symptoms improved, tolerating BiPAP. Plan as above. #3 acute on chronic diastolic CHF: She is on IV Lasix, continued on Coreg, hydralazine and nitrates. She had a 2D echocardiogram on June, that revealed ejection fraction of 60%, stage II diastolic dysfunction. Plan to DC IV Lasix, start oral Lasix, replace potassium, repeat BMP tomorrow morning. #4 chronic anemia: Iron deficiency anemia. Baseline hemoglobin around 10 to 11 g/dL, but has been trending down to 8 g/dL recently. Today's hemoglobin is 8.1 g/dL. It is normocytic anemia. No evidence of active bleeding. Plan to continue iron supplement, transfuse if hemoglobin less than 8 g/dL. #5 stage III chronic kidney disease: Baseline creatinine has been around 1.3 to 2.4 mg/dL, has been fluctuating significantly. Today's creatinine is 1.71, remained stable at baseline. It is likely went up because of IV Lasix. Plan to DC IV Lasix, start oral Lasix, repeat BMP tomorrow morning. #6 CAD status post CABG: Patient denies any chest pain, troponin is negative. EKG without acute ischemic changes. Continue aspirin, statins, Coreg, hydralazine and nitrates. #7 type 2 diabetes mellitus: Blood sugars still fluctuating and uncontrolled. She is on insulin sliding scale, started on Levemir twice daily yesterday. IV steroids discontinued, patient is on oral prednisone. Plan to increase Levemir to 10 units twice daily. #8 hypertension: Blood pressure under better control, continue Norvasc, Coreg, Lasix, hydralazine and nitrates as well as IV hydrazine as needed. #9 hyperlipidemia: Continue statins. #10 obstructive sleep apnea: Patient supposed to be on BiPAP but she did not get the machine yet from the insurance company. She was told that it needs 4 to 6 weeks to get the machine. Plan to get the machine to the patient before discharge. #11 DVT prophylaxis: Subcu heparin. #12 CODE STATUS: DNR CCA. This note was generated with [employer] software. It may contain incorrect words, spelling, and punctuation that were not noted in checking the note before signing. Code Visit Inpatient E&M: 28975 Subs Hosp L2
[2018-08-22] MEDS: Gabapentin 300 MG Capsule PO (08:42)
[2018-08-22] MEDS: predniSONE 20 MG Tablet 40 MG PO (08:42)
[2018-08-22] MEDS: Aspirin E.C. 81 MG Tablet PO (08:42)
[2018-08-22] MEDS: Pantoprazole Sodium 40 MG Tablet PO (08:44)
--- NOTE | 2018-08-22 09:46 | CASEMGMT ---
Addendum entered by Mayra Zayas 08/22/18 12:54: Per Marcela from sleep lab, pt's daughter at bedside declines to be educated on the bipap at this time and states that her sister needs to be the one learning. Marcela states she set up appt for tomorrow at 0930 but this RN CM advised her that pt is up for discharge at this time. Marcela states that she is willing to stay till 6pm to educate pt/family. Call to Doris, who lives with pt, and she states that they were under the impression that pt was staying till tomorrow and that she wanted her to be present for education as well but he is already at work. Advised her that pt is up for discharge and that sleep lab is willing to stay this afternoon to educate, voices understanding. Doris states that she would like to call her regarding all and then she will call this RN CM back. Dyan RN CM Addendum entered by Mayra Zayas 08/22/18 11:07: 1020 Call back from Marcela in sleep lab and she states she will be over in 15-20 to educate pt/family on bipap. This RN CM to room to notify pt/family at this time and per family, the daughter that lives with pt is not here at this time as she is at work all day. This RN CM told family to notify Marcela of this when she comes, voice understanding. Pt is A/Ox4 at this time. Pt/family voice no further questions/concerns/needs for pt at this time. Dyan RN KATIA Original Note: Call to Marcela in sleep lab per Dr. Aldrich request and she is making sure that they have bipap for pt and she will call this RN CM to notify when she can come educate pt/family and this RN CM will notify pt/family at that time. Dyan PADILLA CM
[2018-08-22] MEDS: Isosorbide Mononitrate 60 MG Tablet PO (09:57)
[2018-08-22] MEDS: Carvedilol 6.25 MG Tablet PO (09:57)
[2018-08-22] MEDS: amLODIPine 10 MG Tablet PO (09:59)
[2018-08-22] MEDS: Heparin Injection (Vial) 5,000 UNIT/ML VIAL 5000 UNIT SC (10:09)
[2018-08-22] MEDS: Ceftriaxone 1 GM/50 ML BAG IV (10:09)
--- NOTE | 2018-08-22 10:35 | DCINST_ITS ---
- Discharge Diagnoses Current Active Problems: Current Active and Chronic Problems (Last Reviewed 08/08/18 @ 10:32 by TREVOR Hou) CKD (chronic kidney disease), stage III (Chronic) You will use the following diet at home:: Calorie/Carbohydrate Controlled (specify 1200, 1400, etc) - 1800 juli., Cardiac Your food should be the consistency of: Regular Weight Bearing Status: Weight bearing as tolerated Call your doctor if you observe: Fever of 101 or Higher, Shortness of breath, Dizziness, Fainting spells, Chest pain, Increased palpitations (irregular heartbeat), Uncontrolled pain Additional Instructions: Use BiPAP as directed. Allergies/Adverse Reactions: Allergies Penicillins Allergy (Verified 08/20/18 13:54) Hives adhesive tape Adverse Reaction (Verified 08/20/18 13:54) Other Medications to take at Discharge Amitriptyline HCl [Elavil] 100 mg PO QHS 04/09/13 metFORMIN (XR) [Glucophage Xr] 500 mg PO DAILY 12/25/16 Aspirin E.C. [Ecotrin] 81 mg PO DAILY 10/25/17 Atorvastatin Calcium 80 mg PO DAILY 10/25/17 Gabapentin [Neurontin] 300 mg PO .COMPLEX 10/25/17 Amlodipine Besylate 10 mg PO DAILY 06/01/18 Ferrous Sulfate 325 mg PO 1200,1700 #120 tab 07/09/18 Furosemide [Lasix] 40 mg PO BID@1000,1800 #120 tab 07/09/18 Potassium Chloride 20 meq PO DAILY #60 tab.er.prt 07/09/18 carvedilol 6.25 mg tablet 6.25 mg PO BID #60 tab 07/31/18 isosorbide mononitrate ER 60 mg tablet,extended release 24 hr 60 mg PO DAILY #60 tab 07/31/18 mometasone-formoterol HFA 200 mcg-5 mcg/actuation aerosol inhaler 2 puff INHALATION BID #13 g 08/08/18 tiotropium 2.5 mcg-olodaterol 2.5 mcg/actuation mist for inhalation 2 puff INHALATION DAILY #4 g 08/08/18 Albuterol Sulfate 1.25 mg IH 4X/DAY 08/20/18 Doxazosin Mesylate 8 mg PO QHS 08/20/18 Hydralazine HCl 100 mg PO TID 08/20/18 Omeprazole 40 mg PO DAILY 08/20/18 Prednisone 10 mg PO DAILY 08/20/18 Primary Care Physician: Levi Laird MD [Primary Care Provider] - Please follow up with your Primary Care Physician in: 1 week. Test Results: Test results from this visit will be discussed in further detail at your follow- up appointment, if applicable. Please Follow Up With: Lia Meléndez NP-C When: 2 weeks.
--- NOTE | 2018-08-22 11:22 | PHA.DC.MR ---
Pharmacy Service has performed discharge medication reconciliation for this patient. No new medications at time of discharge review, home medications reported at the time of admission were assessed. The patient's discharge medication list was reviewed for discrepancies and discrepancies were resolved. Home Medications Amitriptyline HCl [Elavil] 100 mg PO QHS 04/09/13 metFORMIN (XR) [Glucophage Xr] 500 mg PO DAILY 12/25/16 Aspirin E.C. [Ecotrin] 81 mg PO DAILY 10/25/17 Atorvastatin Calcium 80 mg PO DAILY 10/25/17 Gabapentin [Neurontin] 300 mg PO .COMPLEX 10/25/17 Amlodipine Besylate 10 mg PO DAILY 06/01/18 Ferrous Sulfate 325 mg PO 1200,1700 #120 tab 07/09/18 Furosemide [Lasix] 40 mg PO BID@1000,1800 #120 tab 07/09/18 Potassium Chloride 20 meq PO DAILY #60 tab.er.prt 07/09/18 carvedilol 6.25 mg tablet 6.25 mg PO BID #60 tab 07/31/18 isosorbide mononitrate ER 60 mg tablet,extended release 24 hr 60 mg PO DAILY #60 tab 07/31/18 mometasone-formoterol HFA 200 mcg-5 mcg/actuation aerosol inhaler 2 puff INHALATION BID #13 g 08/08/18 tiotropium 2.5 mcg-olodaterol 2.5 mcg/actuation mist for inhalation 2 puff INHALATION DAILY #4 g 08/08/18 Albuterol Sulfate 1.25 mg IH 4X/DAY 08/20/18 Doxazosin Mesylate 8 mg PO QHS 08/20/18 Hydralazine HCl 100 mg PO TID 08/20/18 Omeprazole 40 mg PO DAILY 08/20/18 Prednisone 10 mg PO DAILY 08/20/18
[2018-08-22 11:25] LABS: Bedside Glucose 230 mg/dL (70-110)
[2018-08-22] MEDS: Ferrous Sulfate 325 MG Tablet PO ×2 (12:01→16:17)
--- NOTE | 2018-08-22 12:22 | PN_ITS ---
Subjective: The patient was seen and examined at the bedside this morning. Events from the last 24 hours have been reviewed. The patient is currently afebrile, hemodynamically stable and maintaining appropriate oxygen saturations on her baseline oxygen requirement. The patient did tolerate BiPAP overnight. She reports subjective improvement in her breathing quality overall. There are plans for [facility] to bring in a BiPAP to the patient's bedside today. Objective: The patient's most recent lab work, culture data and imaging studies have all been personally reviewed. - Physical Exam General: Alert, Oriented x3, Cooperative, No apparent distress HEENT: Atraumatic, PERRLA, Normocephalic Oral: No Gingival or Mucosal Lesions/ Ulcerations Neck: Supple, No Nodes, Trachea Midline Lungs: No rhonchi, No wheeze, No rales, Diminished Cardiovascular: Regular rate, Regular Rhythm, Normal S1, Normal S2, No murmurs Abdomen: Bowel Sounds Present, Soft, Non Tender, Obese Extremities: No clubbing, No cyanosis, Edema Skin: No breakdown Musculoskeletal: No Tenderness to Palpation of Joints or Extremities, No Muscle Wasting Lymphatic: No Cervical, Supraclavicular, or Inguinal Adenopathy Neurological: Cranial nerves II-XII grossly intact, Neuro grossly intact Psych/Mental Status: Alert and oriented to time, place, person, mood and affect Vital Signs Temp Pulse Resp BP Pulse Ox 97.9 F 82 16 149/54 H 97 08/22/18 09:48 08/22/18 11:02 08/22/18 10:45 08/22/18 09:48 08/22/18 09:48 Oxygen Flow Rate (L/min) 2 Oxygen Delivery Method Nasal Cannula Weight: 254 lb 6.615 oz Body Mass Index (BMI) 45.2 Finger Stick Blood Glucose 155 Intake and Output for Last 24 Hours 08/20/18 08/21/18 08/22/18 23:59 23:59 23:59 Intake Total 584 / 584 501 / 501 507 / 507 Output Total 700 / 700 800 / 800 Balance -116 / -116 501 / 501 -293 / -293 Microbiology Past 72 Hours 08/20/18 15:05 Blood Culture - Preliminary Blood Culture (Wb) - Left Hand No growth in 48 hours. 08/20/18 14:10 Blood Culture - Preliminary Blood Culture (Wb) - Anticubital Left No growth in 48 hours. 08/20/18 18:45 Respiratory Panel (PCR) - Final Mucosa - Nasopharyngeal 08/21/18 00:45 Legionella Antigen - Final Interface Orders Streptococcus pneumoniae Antigen (M - Final Laboratory Tests Past 24 Hrs 08/22/18 08/22/18 04:50 04:50 WBC 10.2 RBC 2.97 L Hgb 8.1 L Hct 27.2 L MCV 91.6 MCH 27.3 MCHC 29.8 L RDW 17.8 H RDW Differential 57.2 H Plt Count 249 MPV 9.7 Immature Gran % (Auto) 1.200 H Neut % (Auto) 83.8 H Lymph % (Auto) 7.1 L [place] % (Auto) 7.7 Eos % (Auto) 0.1 Baso % (Auto) 0.1 Absolute Neuts (auto) 8.6 H Absolute Lymphs (auto) 0.72 L Total Counted Not Reportable Sodium 141 Potassium 3.3 L Chloride 96 L Carbon Dioxide 35.0 H Anion Gap 10 BUN 38 H Creatinine 1.71 H Estim Creat Clear Calc 24.96 Est GFR (MDRD) Af Amer 38 L Est GFR (MDRD) Non-Af 31 L BUN/Creatinine Ratio 22.2 H Glucose 200 H Calcium 8.6 POC Glucose 08/22/18 08/22/18 08/21/18 11:08 06:37 22:42 POC Glucose 230 H 173 H 358 H 08/21/18 17:26 POC Glucose 416 H Clinical Impression(s) from Imaging Studies Chest X-Ray 08/20/18 14:01 IMPRESSION: Findings in keeping with a mild degree of CHF with superimposed atelectasis and/or infiltrates at the lung bases worse on the left side. Electronically Signed: Peter Bahena, at 14:29 EDT , Service support , Chest X-Ray 08/21/18 05:55 IMPRESSION: Chronic interestitial changes. No radiographic evidence of acute cardiopulmonary disease. at 0507 Reported and signed by: Byron Kruse MD Electronically Signed: Byron Kruse MD at 5:25 EDT Tel , Service support , Medical Necessity - Tobacco Use Smoking Status: Former smoker - Patient quit cigarette tobacco usage approximately 10 years prior with at that time 3 pack/day sick or tobacco use. Tobacco Use: Non-smoker Assessment/Plan All Active Problems (Last Reviewed 08/08/18 @ 10:32 by TREVOR Hou) Acute respiratory failure with hypoxia (Acute) Acute exacerbation of chronic obstructive pulmonary disease (COPD) (Acute) RECOMMENDATIONS: 1. Continue diuretic regimen. 2. Continue bronchodilators. At discharge, recommend resumption of the patient's baseline prednisone dose. 3. [facility] to bring the patient's BiPAP to the bedside and instruct patient/family on use. 4. Okay from my perspective to discontinue antibiotics. 5. Resume triple therapy inhaler regimen at discharge. 6. Follow-up in the pulmonary medicine clinic within 2 weeks of discharge. Pulmonary function studies still need to be completed. IMPRESSIONS: 1. Acute on chronic combined respiratory failure Most likely secondary to decompensated heart failure. The patient does have presumptive underlying COPD of unknown severity and is currently on a triple therapy inhaler regimen. There was some concern noted previously that the patient may have relative adrenal insufficiency due to the frequency with which she is prescribed prednisone. Therefore, I would plan to continue corticosteroids her baseline. Continue bronchodilators as ordered. Continue scheduled Lasix regimen as well. Low clinical index of suspicion for underlying pulmonary infectious process. 2. Obstructive sleep apnea The patient recently completed a sleep study which revealed the need for bilevel therapy on a nocturnal basis with a pressure support of 17/13 centimeters of water. The patient and her family reported that they were initially told it would be 6 to 8 weeks before the machine could be set up. I did speak personally with her DME provider this afternoon. Orders for the patient's BiPAP were signed. There are plans for the patient's BiPAP to be brought to the bedside today. The ventilatory support offered by BIPAP should help prevent any further episodes of acute CO2 retention. 3. Heart failure with preserved ejection fraction/pulmonary hypertension/coronary artery disease Continue diuretic regimen as ordered. 4. Long-standing tobacco abuse history, now in remission/chronic kidney disease/diabetes mellitus/hypertension/hyperlipidemia/obesity Complicates care, management, recovery and prognosis. Continue home medications as indicated. Recommend close outpatient pulmonary follow-up. The patient undoubtedly needs to have pulmonary function studies completed. This note was generated with [employer] dictation software. It may contain incorrect words, spelling, and punctuation that were not noted in checking the note before signing. Code Visit Inpatient E&M: 36285 Subs Hosp L2
--- NOTE | 2018-08-22 14:20 | PCM.DC.SUM ---
Discharge Date and Diagnosis Date of Admission: 08/20/18 Date of Discharge: 08/22/18 - Primary Discharge Diagnosis #1 acute on chronic hypoxic and hypercapnic respiratory failure. #2 probable acute COPD exacerbation. #3 acute on chronic diastolic CHF. - Secondary Discharge Diagnosis Chronic Problems (Last Reviewed 08/08/18 @ 10:32 by TREVOR Hou) ELAINE (obstructive sleep apnea) (Chronic) CKD (chronic kidney disease), stage III (Chronic) Atherosclerotic heart disease of [place] coronary artery without angina pectoris (Chronic) NATHAN to the LAD, and SVG to the diagonal branch, and SVG to the LCx system, and an SVG to the RCA on 04/16/2013 at [facility] with Dr. 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 Fields Dyslipidemia (Chronic) COPD (chronic obstructive pulmonary disease) (Chronic) Diabetes mellitus type 2 in obese (Chronic) Hospital Course and Treatment Imaging Results: Clinical Impression(s) from Imaging Studies Chest X-Ray 08/20/18 14:01 IMPRESSION: Findings in keeping with a mild degree of CHF with superimposed atelectasis and/or infiltrates at the lung bases worse on the left side. Electronically Signed: Peter Bahena, at 14:29 EDT , Service support , Chest X-Ray 08/21/18 05:55 IMPRESSION: Chronic interestitial changes. No radiographic evidence of acute cardiopulmonary disease. at 0513 Reported and signed by: Byron Kruse MD Electronically Signed: Byron Kruse MD at 5:25 EDT Tel , Service support , Dr. Aldrich, pulmonology. Operations: None Procedures: None Summary of Care Provided: Patient seen and examined on today's discharge and appeared to be stable to be discharged home. Shortness of breath improved and she is at her baseline. She tolerated BiPAP overnight and has been on nasal cannula. Other vital signs are stable. The patient is a 72 year old F admitted because of worsening shortness of breath, mild productive cough and she was found to have acute on chronic hypoxic and hypercapnic respiratory failure which was attributed to probable acute COPD exacerbation and acute on chronic diastolic CHF as well as obstructive sleep apnea. A chest x-ray revealed findings consistent with mild bilateral pulmonary vascular congestion consistent with mild degree of CHF. Her ABG revealed pH of 7.43, PCO2 55 and PO2 of 108. Her EKG revealed no acute ischemic changes and troponin was negative. She was treated with IV diuretics, IV steroids, BiPAP and bronchodilators. Patient did have a history of obstructive sleep apnea and she is supposed to be on BiPAP at home. She had recent sleep study and recommendation was given to start BiPAP at home. Patient has been having issues with getting her BiPAP machine at home from her insurance company and she was informed that it might take up to 4 to 6 weeks to have this done. With above-mentioned treatment, patient symptoms improved, she did tolerate BiPAP very well overnight and she remained stable on oxygen during daytime at 2 L. BiPAP machine was arranged, brought to the patient's room and education was provided to the patient and her caregiver. Patient discharged home in a stable medical condition, resumed back on her previous prednisone dose without stable which is 10 mg p.o. daily, no antibiotics given, discharged on BiPAP at night and oxygen during daytime, continued on her previous home medications without any changes, plan to follow-up with pulmonology in 2 weeks, recommended follow-up with PCP in 1 week. - Physical Exam General: Alert, Oriented x3, Cooperative, No apparent distress HEENT: Atraumatic, PERRLA, EOMI, Normocephalic Oral: Moist Mucosa, No Gingival or Mucosal Lesions/ Ulcerations Neck: Supple, No JVD, Negative Carotid Bruits, Trachea Midline, Thyroid Normal Size and Texture Lungs: No rales, Diminished, Rhonchi, Wheezes Cardiovascular: Regular rate, Regular Rhythm, Normal S1, Normal S2, No murmurs Abdomen: Bowel Sounds Present, Soft, Non Tender, Non-Distended, No Hepato-splenomegaly Extremities: No clubbing, No cyanosis, Edema Skin: No rashes, No breakdown Lymphatic: No Cervical, Supraclavicular, or Inguinal Adenopathy Neurological: Cranial nerves II-XII grossly intact, Neuro grossly intact Psych/Mental Status: Normal Affect, Appropriate Vital Signs Temp Pulse Resp BP Pulse Ox 97.9 F 82 16 149/54 H 97 08/22/18 09:48 08/22/18 11:02 08/22/18 10:45 08/22/18 09:48 08/22/18 09:48 Oxygen Flow Rate (L/min) 2 Oxygen Delivery Method Nasal Cannula Weight: 254 lb 6.615 oz Body Mass Index (BMI) 45.2 Finger Stick Blood Glucose 155 Intake and Output for Last 24 Hours 08/20/18 08/21/18 08/22/18 23:59 23:59 23:59 Intake Total 584 / 584 501 / 501 507 / 507 Output Total 700 / 700 800 / 800 Balance -116 / -116 501 / 501 -293 / -293 Microbiology Past 72 Hours 08/20/18 15:05 Blood Culture - Preliminary Blood Culture (Wb) - Left Hand No growth in 48 hours. 08/20/18 14:10 Blood Culture - Preliminary Blood Culture (Wb) - Anticubital Left No growth in 48 hours. 08/20/18 18:45 Respiratory Panel (PCR) - Final Mucosa - Nasopharyngeal 08/21/18 00:45 Legionella Antigen - Final Interface Orders Streptococcus pneumoniae Antigen (M - Final Laboratory Tests Past 24 Hrs 08/22/18 08/22/18 04:50 04:50 WBC 10.2 RBC 2.97 L Hgb 8.1 L Hct 27.2 L MCV 91.6 MCH 27.3 MCHC 29.8 L RDW 17.8 H RDW Differential 57.2 H Plt Count 249 MPV 9.7 Immature Gran % (Auto) 1.200 H Neut % (Auto) 83.8 H Lymph % (Auto) 7.1 L [place] % (Auto) 7.7 Eos % (Auto) 0.1 Baso % (Auto) 0.1 Absolute Neuts (auto) 8.6 H Absolute Lymphs (auto) 0.72 L Total Counted Not Reportable Sodium 141 Potassium 3.3 L Chloride 96 L Carbon Dioxide 35.0 H Anion Gap 10 BUN 38 H Creatinine 1.71 H Estim Creat Clear Calc 24.96 Est GFR (MDRD) Af Amer 38 L Est GFR (MDRD) Non-Af 31 L BUN/Creatinine Ratio 22.2 H Glucose 200 H Calcium 8.6 POC Glucose 08/22/18 08/22/18 08/21/18 11:08 06:37 22:42 POC Glucose 230 H 173 H 358 H 08/21/18 17:26 POC Glucose 416 H Weight Bearing Status: Weight bearing as tolerated Call your doctor if you observe: Fever of 101 or Higher, Shortness of breath, Dizziness, Fainting spells, Chest pain, Increased palpitations (irregular heartbeat), Uncontrolled pain Home Medications: Medications to take at Discharge Amitriptyline HCl [Elavil] 100 mg PO QHS 04/09/13 metFORMIN (XR) [Glucophage Xr] 500 mg PO DAILY 12/25/16 Aspirin E.C. [Ecotrin] 81 mg PO DAILY 10/25/17 Atorvastatin Calcium 80 mg PO DAILY 10/25/17 Gabapentin [Neurontin] 300 mg PO .COMPLEX 10/25/17 Amlodipine Besylate 10 mg PO DAILY 06/01/18 Ferrous Sulfate 325 mg PO 1200,1700 #120 tab 07/09/18 Furosemide [Lasix] 40 mg PO BID@1000,1800 #120 tab 07/09/18 Potassium Chloride 20 meq PO DAILY #60 tab.er.prt 07/09/18 carvedilol 6.25 mg tablet 6.25 mg PO BID #60 tab 07/31/18 isosorbide mononitrate ER 60 mg tablet,extended release 24 hr 60 mg PO DAILY #60 tab 07/31/18 mometasone-formoterol HFA 200 mcg-5 mcg/actuation aerosol inhaler 2 puff INHALATION BID #13 g 08/08/18 tiotropium 2.5 mcg-olodaterol 2.5 mcg/actuation mist for inhalation 2 puff INHALATION DAILY #4 g 08/08/18 Albuterol Sulfate 1.25 mg IH 4X/DAY 08/20/18 Doxazosin Mesylate 8 mg PO QHS 08/20/18 Hydralazine HCl 100 mg PO TID 08/20/18 Omeprazole 40 mg PO DAILY 08/20/18 Prednisone 10 mg PO DAILY 08/20/18 Primary Care Physician: Levi Laird MD [Primary Care Provider] - Please follow up with your Primary Care Physician in: 1 week. Please Follow Up With: Lia Meléndez NP-C When: 2 weeks. Please Follow Up With: Levi Laird MD Disposition: Home Minutes spent on discharge:: 33 Patient Condition:: Stable Medical Necessity - Tobacco Use Smoking Status: Former smoker - Patient quit cigarette tobacco usage approximately 10 years prior with at that time 3 pack/day sick or tobacco use. Tobacco Use: Non-smoker Meaningful Use Info Meaningful Use Diagnoses (Choose all that apply): CHF - CHF NICOLAS/ARB ordered at discharge?: No Reason NICOLAS/ARB not ordered?: Worsening renal disease Documented LVEF (%): 60 Code Visit Inpatient E&M: 35262 Disch Hosp
[2018-08-22 16:25] LABS: Bedside Glucose 388 mg/dL (70-110)
--- NOTE | 2018-08-23 16:07 | CASEMGMT ---
RANDY MONTALVO Discharge Follow-up Phone Call: MARTIR: Kathie Strata: 4 Call Date: 08/23/18 Discharge Date: 08/22/18 Time of Call: 1608 Duration: Admitting Diagnosis: SOB, COPD, Dyspnea, CHF RN KATIA completed follow-up phone call after recent hospitalization. Patient states that she is doing alright and had no questions or concerns regarding discharge instructions. Patient states she is aware of follow-up appts. Patient voiced no further concerns at this time.
== END 2018-08-22 18:45 | disposition home or self-care (01) | DRG 291 ==
LOC: ED 14:50 → PCU 15:33 → ICU 16:05 → PCU 08-22 10:27
PROVIDERS: Admitting Provider Family Medicine; Emergency Provider Emergency Medicine; Family Provider Family Medicine; PCP Family Medicine; Referring Provider Family Medicine; Visit Provider Hospitalist
DX: I13.0 Hypertensive heart and chronic kidney disease with heart failure and stage 1 through stage 4 chronic kidney disease, or unspecified chronic kidney disease (principal); J96.21 Acute and chronic respiratory failure with hypoxia; I50.33 Acute on chronic diastolic (congestive) heart failure; J96.22 Acute and chronic respiratory failure with hypercapnia; G93.41 Metabolic encephalopathy; Z68.42 Body mass index [BMI] 45.0-49.9, adult; J44.1 Chronic obstructive pulmonary disease with (acute) exacerbation; I25.10 Atherosclerotic heart disease of native coronary artery without angina pectoris; N18.3 Chronic kidney disease, stage 3 (moderate); E66.01 Morbid (severe) obesity due to excess calories; E11.22 Type 2 diabetes mellitus with diabetic chronic kidney disease; Z99.81 Dependence on supplemental oxygen; E78.5 Hyperlipidemia, unspecified; G47.33 Obstructive sleep apnea (adult) (pediatric); Z87.891 Personal history of nicotine dependence; Z79.84 Long term (current) use of oral hypoglycemic drugs; Z95.1 Presence of aortocoronary bypass graft; D50.9 Iron deficiency anemia, unspecified; I27.20 Pulmonary hypertension, unspecified; I08.1 Rheumatic disorders of both mitral and tricuspid valves
CPT/HCPCS: 36415; 36600; 71045; 80048; 80053; 80061; 82803; 82962; 83605; 83735; 83880; 84443; 84484; 85025; 87040; 87070; 87077; 87186; 87205; 87449; 87633; 93005; 94002; 94003; 94640; 94667; 94668; 97162; 97166; 97530; 97802; 99285; J7050; A4216; J1940

== ENCOUNTER → 2018-08-22 | Outpatient (CLI) | payer MEDICARE, SELFPAY ==
[2018-08-20 16:39] VITALS: BMI 45.2
--- NOTE | 2018-08-22 18:06 | SLEEP ---
Provided patient with BILEVEL S DME equipment from [employer] per Rx. Education on machine, mask, ELAINE, and therapy provided with daughter Doris (caregiver) present. Patient and daughter understand BILEVEL therapy is prescribed with supplemental oxygen bleed in and how to attach her oxygen tubing to her machine at home for use with sleep. All questions answered. The patient follows up with [facility] next week.
== END | disposition home or self-care (01) ==
LOC: SL 18:05
PROVIDERS: Family Provider Family Medicine; PCP Family Medicine; Referring Provider Nurse Practitioner Acute Care; Visit Provider Nurse Practitioner Acute Care
DX: G47.33 Obstructive sleep apnea (adult) (pediatric) (principal)

== ENCOUNTER → 2018-09-06 | Outpatient (CLI) | payer MEDICARE, SELFPAY ==
[2018-09-02 11:00] VITALS: BMI 45.2
[2018-09-06 08:24] VITALS: BP 162/52; PULSE 87; RESP 16; TEMP 36.6; O2SAT 95; BMI 44.2
[2018-09-06 09:01] VITALS: BP 161/60; PULSE 84; RESP 16; TEMP 36.6; O2SAT 95
[2018-09-06 10:01] VITALS: BP 157/61; PULSE 84; RESP 16; TEMP 36.1; O2SAT 100
[2018-09-06 11:01] VITALS: BP 142/66; PULSE 83; RESP 16; TEMP 36.5; O2SAT 100
[2018-09-06 11:41] VITALS: BP 160/60; PULSE 87; RESP 16; TEMP 36.8; O2SAT 92
[2018-09-06] MEDS: Furosemide 20 MG/2 ML VIAL IV (11:46)
[2018-09-06 12:33] VITALS: BP 169/61; PULSE 88; RESP 24; TEMP 36.6; O2SAT 82
--- NOTE | 2018-09-06 12:35 | NURSING ---
Patient states feeling short of breath and not feeling good, color slightly dusky; transfusion stopped; oxygen turned up to 3 liters and then up to 4 liters . Pulse ox up to 100 on 4liters, lungs sounds with wheezing and crackles. Oxygen tightened at wall connector and patient used emergency inhaler.
--- NOTE | 2018-09-06 12:52 | NURSING ---
notified and cancelled second unit. patient to call office on Sunday and to go to ED if starts feeling worse. Pulse ox has been staying at 100% on 2liters
== END | disposition home or self-care (01) ==
LOC: MEDOUTP 07:49
PROVIDERS: Family Provider Family Medicine; PCP Family Medicine; Referring Provider Family Medicine; Visit Provider Family Medicine
DX: D64.9 Anemia, unspecified (principal)
CPT/HCPCS: 36415; 36430; 86850; 86900; 86920; 86922; J7040; P9016; A4216; J1940

== ENCOUNTER → 2018-10-01 | Outpatient (CLI) | payer MEDICARE, SELFPAY ==
[2018-06-28 09:31] VITALS: BMI 39.4
[2018-09-06 08:24] VITALS: BMI 44.2
--- NOTE | 2018-10-02 07:52 | PFT ---
INTRODUCTION: The patient is a 72-year-old female that presents for pulmonary function studies secondary to a diagnosis of COPD. Respiratory therapy reports good patient effort. Bronchodilators were used during testing. INTERPRETATION: Forced expiration spirometry demonstrates no evidence of a large airways obstructive ventilatory defect. There was no significant response to aerosolized bronchodilators. Spirograms are of good quality and plateau normally. Body plethysmography was performed and reveals a decrease TLC to 3.14 L, 68% of predicted, indicative of a moderate restrictive ventilatory impairment. The remainder of the lung volumes are symmetrically reduced. Diffusing capacity by single breath CO is moderately reduced at 47% of predicted. IMPRESSION: Moderate restrictive ventilatory impairment with symmetric reduction in diffusing capacity. There are no previous pulmonary function studies available for comparison.
== END | disposition home or self-care (01) ==
LOC: PSN 07:21
PROVIDERS: Family Provider Family Medicine; PCP Family Medicine; Referring Provider Nurse Practitioner Acute Care; Visit Provider Nurse Practitioner Acute Care
DX: J44.1 Chronic obstructive pulmonary disease with (acute) exacerbation (principal)
CPT/HCPCS: 94060; 94726; 94729

== ENCOUNTER → 2018-10-16 | Outpatient (CLI) | payer MEDICARE, SELFPAY ==
[2018-10-16 06:20] VITALS: BMI 44.2
[2018-10-16 13:50] LABS: Hematocrit 26.7 % (37-47); Hemoglobin 8.1 g/dL (12.0-15.0); Mean Corp Hgb Conc 30.3 g/dL (32-36); Mean Corpuscular Hgb 27.3 pg (27.0-32.0); Mean Corpuscular Volume 89.9 fL (81-99); Mean Platelet Vol. 10.7 fl (6.2-12.0); Platelet Count 265 K/mm3 (150-450); RBC Distribution Width CV 15.6 % (11.6-14.6); RBC Distribution Width SD 50.9 fl (35.1-43.9); Red Blood Count 2.97 M/mm3 (4.2-5.4); White Blood Count 12.6 K/mm3 (4.4-11.0)
[2018-10-16 14:16] LABS: BUN 25 mg/dL (7-18); Creatinine, Serum 1.35 mg/dL (0.55-1.02); Glucose 237 mg/dL (74-106)
[2018-10-16 14:17] LABS: Albumin, Serum 3.2 g/dL (3.2-5.0); BUN/Creat Ratio 18.5 RATIO (10-20); Calcium,Total 8.8 mg/dL (8.5-10.1); Chloride 102 mmol/L (98-107); EST Glomerular Filtration Rate 41 mL/min (>60); Est Glom Filt Rate - Afr Amer 50 mL/min (>60); Phosphorus 3.3 mg/dL (2.5-4.9); Sodium Level 140 mmol/L (136-145)
[2018-10-16 14:26] LABS: Vitamin D,25 Hydroxy 9.6 ng/mL (29.95-100.01)
[2018-10-16 14:27] LABS: PTHIN 65.1 pg/mL (18.4-80.1)
== END | disposition home or self-care (01) ==
LOC: LAB 13:04
PROVIDERS: Family Provider Family Medicine; PCP Family Medicine; Referring Provider Internal Medicine Nephrology; Visit Provider Internal Medicine Nephrology
DX: N18.3 Chronic kidney disease, stage 3 (moderate) (principal); D64.9 Anemia, unspecified
CPT/HCPCS: 36415; 80069; 82306; 83970; 85027

== ENCOUNTER → 2018-10-24 | Outpatient (CLI) | payer MEDICARE, SELFPAY ==
[2018-10-16 13:25] VITALS: BMI 42.5
[2018-10-24 12:52] LABS: Protein, Urine (Random) 10.1 mg/dL (<11.9); Protein:Creat Ratio 241 mg/g CRE (0-200)
== END | disposition home or self-care (01) ==
LOC: LABSPEC 10:42
PROVIDERS: Family Provider Family Medicine; PCP Family Medicine; Referring Provider Internal Medicine Nephrology; Visit Provider Internal Medicine Nephrology
DX: N18.3 Chronic kidney disease, stage 3 (moderate) (principal); D64.9 Anemia, unspecified
CPT/HCPCS: 82570; 84156

== ENCOUNTER 2018-11-18 09:24 | Inpatient (IN) | payer MEDICARE, SELFPAY ==
[2018-10-16 13:25] VITALS: BMI 42.5
[2018-11-18] VITALS (18 sets, daily range): BP systolic 137–168; BP diastolic 60–75; PULSE 82–93; RESP 12–24; TEMP 36.7–36.9; O2SAT 90–97; BMI 43.7; BMI 45.7; BMI 45.8
--- NOTE | 2018-11-18 09:42 | EKG12_ITS ---
Test Reason : SOB Blood Pressure : / mmHG Vent. Rate : 084 BPM Atrial Rate : 084 BPM P-R Int : 168 ms QRS Dur : 098 ms QT Int : 388 ms P-R-T Axes : 070 048 063 degrees QTc Int : 458 ms Normal sinus rhythm Possible Left atrial enlargement Borderline ECG Confirmed by ELLEN DOVE, MARKUS ([id number]), scientific editor ISABEL DWYER ([id number]) on 11/20/2018 2:18:05 PM Referred By: Sandoval Tong Confirmed By:MARKUS HUGHES MD
[2018-11-18] MEDS: Ipratropium/Albuterol Sulfate 3 ML AMPUL.NEB INHALATION (09:45)
[2018-11-18 09:57] LABS: Absolute Lymphocyte Count 1.09 X10^3/uL (0.83-4.51); Absolute Neutrophil Count 8.5 X10^3/uL (2.0-7.7); Basophil# 0.04 X10^3/uL; Basophil% 0.4 % (0-1); Eosinophil# 0.16 X10^3/uL; Eosinophils% 1.5 % (0-5); Hematocrit 24.6 % (37-47); Hemoglobin 7.5 g/dL (12.0-15.0); Lymphocyte # 1.09 X10^3/ul (4.0); Lymphocyte % 10.1 % (19-41); Mean Corp Hgb Conc 30.5 g/dL (32-36); Mean Corpuscular Hgb 26.6 pg (27.0-32.0); Mean Corpuscular Volume 87.2 fL (81-99); Mean Platelet Vol. 9.8 fl (6.2-12.0); Monocyte# 0.76 X10^3/uL; NRBC Flagged by Analyzer 0 % (0-5); Neutrophil # 8.54 X10^3/uL (2.7-7.7); Neutrophil % 78.9 % (47-70); Platelet Count 269 K/mm3 (150-450); RBC Distribution Width CV 15.6 % (11.6-14.6); RBC Distribution Width SD 49.7 fl (35.1-43.9); Red Blood Count 2.82 M/mm3 (4.2-5.4); White Blood Count 10.8 K/mm3 (4.4-11.0)
--- NOTE | 2018-11-18 10:08 | RAD_ITS ---
STUDY: X-RAY CHEST REASON FOR EXAM: Female, 72 years old. Shortness of breath/dyspnea. TECHNIQUE: Single AP portable view of the chest. COMPARISON: Comparison is made with prior examination dated August 21, 2018. FINDINGS: EKG electrodes are seen. There is evidence of basilar congestion and mild increased interstitial markings in keeping with the CHF. There is no demonstrated pleural abnormality. Sternal cerclage wires and vascular clips are present from a prior sternotomy and coronary artery bypass graft procedure (CABG). Normal mediastinum and james. Normal visualized pulmonary arteries. There is atherosclerotic calcification of the aortic arch with tortuosity. There are diffuse degenerative changes of the visualized thoracic spine. Normal visualized ribs, clavicles, and shoulders. There is no demonstrated abnormality of the visualized soft tissue structures of the upper abdomen. RAD/Chest 1 View (Portable) IMPRESSION: Findings in keeping with a mild degree of CHF. Electronically Signed: Peter Bahena, at 10:46 EDT , Service support ,
[2018-11-18 10:10] LABS: Allen Test POS; Base Excess 5 mmol/L (-2 to +2); Bicarbonate 29.3 mmol/L (22-26); Blood Gas Specimen Type ART; O2 Delivery Device Nasal Can; PO2 101 mmHG (75-100); SITE R Radial; SO2 98 % (95-99); Time Given 955; Total Carbon Dioxide 31 mmol/L; pCO2 47.1 mmHg (35-45)
[2018-11-18] MEDS: Albuterol 2.5 MG/3 ML VIAL.NEB. INHALATION ×3 (10:14→11:47)
[2018-11-18] MEDS: MethylPREDNISolone 125 MG/2 ML Vial IV (10:17)
[2018-11-18 10:19] LABS: Anion Gap 8 (5-15); BUN 37 mg/dL (7-18); BUN/Creat Ratio 22.2 RATIO (10-20); Calcium,Total 8.8 mg/dL (8.5-10.1); Chloride 99 mmol/L (98-107); Creatinine, Serum 1.67 mg/dL (0.55-1.02); EST Glomerular Filtration Rate 32 mL/min (>60); Est Glom Filt Rate - Afr Amer 39 mL/min (>60); Estimated Creatinine Clearance 24.44 ml/min; Glucose 140 mg/dL (74-106); Sodium Level 137 mmol/L (136-145)
[2018-11-18 10:32] LABS: BNP,B-Type NATRIURETIC PEPTIDE 320.6 pg/mL (0-100)
--- NOTE | 2018-11-18 10:56 | CT_ITS ---
STUDY: CT ABDOMEN AND PELVIS WITHOUT CONTRAST REASON FOR EXAM: Female, 72 years old. Abdominal pain and shortness of breath. RADIATION DOSAGE (If Supplied By Facility): CTDIvol = ( 32.71 ) mGy, DLP = ( 1724.50 ) mGycm TECHNIQUE: Transaxial images were obtained from the dome of the diaphragm to the symphysis pubis without oral contrast, and without intravenous contrast. Sagittal and coronal images were reconstructed. Individualized dose optimization techniques were used for this CT. COMPARISON: None. FINDINGS: Increased linear markings at the lung bases suggestive of bibasilar scarring. Small bilateral pleural effusions with bibasilar atelectasis. Coronary artery calcification. Small amount of the perihepatic and perisplenic fluid in keeping with ascites. The patient is status post cholecystectomy. Normal spleen. Normal pancreas. Normal bilateral adrenal glands. Normal right kidney. Right intrarenal calcified renal arterial plaque. Normal left kidney. Normal visualized stomach. There is evidence of a 2.7 cm x 2.4 cm diverticulum in the second portion of the duodenum. Moderate amount of fecal material is seen in the colon. Sigmoid diverticulosis. There are surgical clips in the region of the appendix consistent with a prior appendectomy. There is diffuse atherosclerotic calcification of the abdominal aorta and its major visceral branches., without a demonstrated aneurysm. Normal inferior vena cava. There is borderline retroperitoneal lymphadenopathy with enlarged nodes no greater than 10mm in the short axis diameter. Normal urinary bladder. Calcified fibroid uterus. Free fluid in the pelvis. Normal abdominal wall. There are degenerative changes of the visualized lower lumbar spine. CT/Abdomen/Pelvis without Cont IMPRESSION: Small amount of ascites. Sigmoid diverticulosis. Small bilateral effusions with bibasilar atelectasis and basilar scarring. Electronically Signed: Peter Bahena, at 11:37 EDT , Service support ,
--- NOTE | 2018-11-18 12:11 | ED.DCSUM_ITS ---
- ER Visit Summary Date of Service: 11/18/18 Chief Complaint: [Shortness of breath] History of Present Illness: The patient is a 72 F [presents to the emergency department chief complaint of shortness of breath initially started yesterday. Patient's been increasingly short of breath since around 3:15 AM however. She denies any chest pain. Patient also started voicing some complaint of abdominal discomfort is been diffuse today. She denies any nausea or vomiting. She is had no fever at home. She not really coughing or bringing anything up. Patient does have a history of COPD, CHF, diabetes, hypertension, and coronary artery disease. Patient has had prior appendectomy and prior cholecystectomy. Patient has had prior four-vessel CABG.] Physical Examination: [HEENT-PERRLA, EOMI. Cranial nerves II through XII grossly intact. TMs clear. Mucous membranes moist. No adenopathy. Cardiovascular-regular rate and rhythm without murmur or ectopy Lungs-few rales in the bases. Diminished breath sounds bilaterally with some expiratory wheezes noted bilaterally. Patient has mild conversational dyspnea. Abdomen-normoactive bowel sounds, soft, nontender, no rebound or rigidity, no peritoneal signs. Extremities-intact ?4, normal range of motion, normal pulses, atraumatic] Test Results: [EKG obtained on arrival showed sinus rhythm with a rate of 84 bpm with some possible left atrial enlargement. ABG performed showed pH is 7.4, CO2 47, PaO2 of 101, bicarb of 29, satting 98% on 3 L[address] CT scan of the abdomen pelvis showed mild ascites otherwise nothing really significant. Chest x-ray performed showed mild CHF. Emergency Department Course and Treatment: [She was given DuoNeb aerosols as well as albuterol aerosols and placed on oxygen. Patient given Solu-Medrol 125 mill grams IV patient required an increase in her O2 demand and was bumped up to 4 L.] Treatment Plan: [Admit] Disposition: [Admit] Impression: [COPD exacerbation Dyspnea Anemia CHF] This note was generated with [employer] dictation software. It may contain incorrect words, spelling, and punctuation that were not noted in review of the chart prior to signing ED Disposition - Plan for ED Patient: Referrals: Levi Laird MD [Primary Care Provider] -
--- NOTE | 2018-11-18 12:38 | ED.RN ---
family doesnt understand why her pcp can not see the pt, why do doctors who dont know you, take care of you. this rn tried to explain that this is the ER, that it is not done by the ER staff to be difficult. that the MD was calling her PCP.
--- NOTE | 2018-11-18 12:40 | CPS ---
Patient placed on BiPAP at home settings.
--- NOTE | 2018-11-18 12:43 | ED.RN ---
per daughters pt does not want the [facility].
[2018-11-18] MEDS: Furosemide 40 MG/4 ML Vial IV ×2 (12:45→16:27)
--- NOTE | 2018-11-18 13:25 | CPS ---
Patient transported to PCU on 6lpm nasal cannula. Patient placed back on BiPAP once in PCU bed.
--- NOTE | 2018-11-18 14:28 | CASEMGMT ---
Patient has a Healthcare POA and Healthcare LW on file at [facility]. Josie GREENWOOD [employer] APPRENTICE
--- NOTE | 2018-11-18 14:29 | PCM.HP.STD ---
Problem List (1) (HFpEF) heart failure with preserved ejection fraction Status: Acute Qualifiers: Heart failure chronicity: acute Qualified Code(s): I50.31 - Acute diastolic (congestive) heart failure (2) Acute respiratory failure with hypoxia Status: Acute (3) ELAINE (obstructive sleep apnea) Status: Chronic (4) CKD (chronic kidney disease), stage III Status: Chronic (5) Atherosclerotic heart disease of [place] coronary artery without angina pectoris Status: Chronic Qualifiers: Comment: NATHAN to the LAD, and SVG to the diagonal branch, and SVG to the LCx system, and an SVG to the RCA on 04/16/2013 at [facility] with Dr. Fields (6) Essential hypertension Status: Chronic (7) Acute exacerbation of chronic obstructive pulmonary disease (COPD) Status: Acute (8) Mitral insufficiency Status: Chronic Qualifiers: (9) Tricuspid insufficiency Status: Chronic Qualifiers: (10) Pulmonary hypertension Status: Chronic (11) Morbid obesity with BMI of 40.0-44.9, adult Status: Chronic (12) H/O four vessel coronary artery bypass graft Status: Chronic Comment: NATHAN to the LAD, and SVG to the diagonal branch, and SVG to the LCx system, and an SVG to the RCA on 04/16/2013 at [facility] with Dr. Fields (13) Dyslipidemia Status: Chronic (14) COPD (chronic obstructive pulmonary disease) Status: Chronic Qualifiers: (15) Diabetes mellitus type 2 in obese Status: Chronic History of Present Illness Date of Admission: 11/18/18 Chief Complaint: shortness of breath. The patient is a 72 year old F who awoke this morning, roughly around 3 AM, short of breath. Patient was in her normal state of health yesterday and was visiting her sister. Patient became very short of breath today and presented to the emergency room. Patient was also complaining of some epigastric abdominal pain. Patient underwent a chest x-ray that showed some mild CHF. She also underwent a CT of the abdomen pelvis that showed no acute intra-abdominal process but did show some small bilateral pleural effusions. Patient did receive IV Lasix, bronchodilators as well as methylprednisolone in the emergency room. After I spoke with the emergency room physician, patient was then placed on a BiPAP and sent to the floor. Patient is somnolent and unable/unwilling to provide any history despite questioning. [] Past Medical History Past Medical History (Chronic Problems): Chronic Problems (Last Reviewed 10/16/18 @ 13:26 by Vanessa Holden) ELAINE (obstructive sleep apnea) (Chronic) CKD (chronic kidney disease), stage III (Chronic) Atherosclerotic heart disease of [place] coronary artery without angina pectoris (Chronic) NATHAN to the LAD, and SVG to the diagonal branch, and SVG to the LCx system, and an SVG to the RCA on 04/16/2013 at [facility] with Dr. Fields Essential hypertension (Chronic) Mitral insufficiency (Chronic) Tricuspid insufficiency (Chronic) Pulmonary hypertension (Chronic) Morbid obesity with BMI of 40.0-44.9, adult (Chronic) H/O four vessel coronary artery bypass graft (Chronic ~04/16/13) NATHAN to the LAD, and SVG to the diagonal branch, and SVG to the LCx system, and an SVG to the RCA on 04/16/2013 at [facility] with Dr. Fields Dyslipidemia (Chronic) COPD (chronic obstructive pulmonary disease) (Chronic) Diabetes mellitus type 2 in obese (Chronic) Medical History: Medical History (Last Updated 11/18/18 @ 14:34 by Sandoval Tong DO) Atherosclerotic heart disease of [place] coronary artery without angina pectoris (Chronic) I25.10 NATHAN to the LAD, and SVG to the diagonal branch, and SVG to the LCx system, and an SVG to the RCA on 04/16/2013 at [facility] with Dr. Fields Essential hypertension (Chronic) I10 Pulmonary hypertension (Chronic) I27.20 Morbid obesity with BMI of 40.0-44.9, adult (Chronic) E66.01, Z68.41 Dyslipidemia (Chronic) E78.5 COPD (chronic obstructive pulmonary disease) (Chronic) J44.9 Diabetes mellitus type 2 in obese (Chronic) E11.69, E66.9 (HFpEF) heart failure with preserved ejection fraction I50.30 CAD (coronary artery disease) (Inactive) I25.10 NATHAN to the LAD, and SVG to the diagonal branch, and SVG to the LCx system, and an SVG to the RCA on 04/16/2013 at [facility] with Dr. Fields Allergies Penicillins Allergy (Verified 11/18/18 09:25) Hives adhesive tape Adverse Reaction (Verified 11/18/18 09:25) Other Home Medications: Ambulatory Orders Medication Instructions Recorded Amitriptyline HCl [Elavil] 100 mg PO QHS 04/09/13 metFORMIN (XR) [Glucophage Xr] 500 mg PO DAILY 12/25/16 Aspirin E.C. [Ecotrin] 81 mg PO DAILY 10/25/17 Atorvastatin Calcium 80 mg PO DAILY 10/25/17 Gabapentin [Neurontin] 200 mg PO .COMPLEX 10/25/17 Amlodipine Besylate 10 mg PO DAILY 06/01/18 Ferrous Sulfate 325 mg PO 1200,1700 #120 tab 07/09/18 Potassium Chloride 20 meq PO DAILY #60 tab.er.prt 07/09/18 carvedilol 6.25 mg tablet 6.25 mg PO BID #60 tab 07/31/18 isosorbide mononitrate ER 60 mg 60 mg PO DAILY #60 tab 07/31/18 tablet,extended release 24 hr Albuterol Sulfate 1.25 mg IH 4X/DAY 08/20/18 Doxazosin Mesylate 8 mg PO QHS 08/20/18 Hydralazine HCl 100 mg PO TID 08/20/18 Omeprazole 40 mg PO DAILY 08/20/18 Prednisone 10 mg PO DAILY 08/20/18 budesonide-formoterol HFA 160 2 puff INHALATION BID #1 ea 09/25/18 mcg-4.5 mcg/actuation aerosol inhaler furosemide 40 mg tablet 40 mg PO BID@1000,1800 #120 tab 10/16/18 tiotropium 2.5 mcg-olodaterol 2.5 2 puff INHALATION DAILY #4 g 10/28/18 mcg/actuation mist for inhalation Surgical History: Surgical History (Last Reviewed 11/18/18 @ 14:35 by Sandoval Tong DO) H/O four vessel coronary artery bypass graft (Chronic) Onset Date: ~04/16/13 Z95.1 NATHAN to the LAD, and SVG to the diagonal branch, and SVG to the LCx system, and an SVG to the RCA on 04/16/2013 at [facility] with Dr. Fields Surgical History: appendectomy, cholecystectomy, - - CABG x4, cholecystectomy, appendectomy, left lower extremity vein stripping, tonsillectomy. 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 Maternal Family History: Family History (Last Reviewed 11/18/18 @ 14:35 by Sandoval Tong DO) Mother Heart disease History Items: - - Patient notes a maternal family history of heart disease and diabetes. Review of Systems Cardiovascular: Reports: Edema Respiratory: Reports: Shortness of Breath Comment: Unable to obtain adequate review of systems as patient is somnolent and does respond to some questioning and is able to state that she wants some coffee but does not respond to direct questioning for review of systems. So please see HPI for further details. VTE Information - Inpt Only VTE Present on Admission: No VTE Mechan Device Prophylaxis: None VTE Pharm Prophylaxis ordered?: Yes Patient Problems: Active and Suspected Problems (Last Reviewed 10/16/18 @ 13:26 by Vanessa Holden) (HFpEF) heart failure with preserved ejection fraction (Acute) - Physical Exam General: Alert, No apparent distress, Well developed, Well nourished, - - Listless. Afebrile. HEENT: Atraumatic, Normocephalic Oral: Moist Mucosa, No Gingival or Mucosal Lesions/ Ulcerations Neck: Trachea Midline, JVD, Right Lungs: Diminished, - - Coarse breath sounds bilaterally Cardiovascular: Regular rate, Regular Rhythm, Normal S1, Normal S2, No murmurs Abdomen: Bowel Sounds Present, Soft, Non Tender, Non-Distended, No Hepato-splenomegaly Extremities: No Calf Tenderness, Edema Skin: - - macular rash on forarms bilaterally. Musculoskeletal: No Tenderness to Palpation of Joints or Extremities, No Muscle Wasting Neurological: Sensory exam intact to light touch and pain Psych/Mental Status: Normal Affect, Appropriate Vital Signs Temp Pulse Resp BP Pulse Ox 36.7 C 89 18 159/73 H 96 11/18/18 13:51 11/18/18 13:51 11/18/18 13:51 11/18/18 13:51 11/18/18 13:51 Oxygen Flow Rate (L/min) 2 Oxygen Delivery Method Nasal Cannula Weight: 113.5 kg Body Mass Index (BMI) 45.7 Finger Stick Blood Glucose 155 Laboratory Tests Past 24 Hrs 11/18/18 11/18/18 11/18/18 09:50 09:50 09:50 WBC 10.8 RBC 2.82 L Hgb 7.5 L Hct 24.6 L MCV 87.2 MCH 26.6 L MCHC 30.5 L RDW Std Deviation 49.7 H RDW Coeff of Becca 15.6 H Plt Count 269 MPV 9.8 Immature Gran % (Auto) 2.100 H Neut % (Auto) 78.9 H Lymph % (Auto) 10.1 L [place] % (Auto) 7.0 Eos % (Auto) 1.5 Baso % (Auto) 0.4 Absolute Neuts (auto) 8.5 H Absolute Lymphs (auto) 1.09 Nucleated RBC % 0 Specimen Type Sample Site pH Bicarbonate Actual POC Total CO2 Base Excess O2 Saturation ABG pCO2 ABG pO2 Abram Test O2 Delivery Device Liter Flow Blood Gas Notified Whom Blood Gas Notified Time Sodium 137 Potassium 4.0 Chloride 99 Carbon Dioxide 30.0 Anion Gap 8 BUN 37 H Creatinine 1.67 H Estim Creat Clear Calc 24.44 Est GFR (MDRD) Af Amer 39 L Est GFR (MDRD) Non-Af 32 L BUN/Creatinine Ratio 22.2 H Glucose 140 H Calcium 8.8 Troponin I < 0.015 B-Natriuretic Peptide 320.6 H 11/18/18 10:03 WBC RBC Hgb Hct MCV MCH MCHC RDW Std Deviation RDW Coeff of Becca Plt Count MPV Immature Gran % (Auto) Neut % (Auto) Lymph % (Auto) [place] % (Auto) Eos % (Auto) Baso % (Auto) Absolute Neuts (auto) Absolute Lymphs (auto) Nucleated RBC % Specimen Type ART Sample Site R Radial pH 7.40 Bicarbonate Actual 29.3 H POC Total CO2 31 Base Excess 5 H O2 Saturation 98 ABG pCO2 47.1 H ABG pO2 101 H Abram Test POS O2 Delivery Device Nasal Can Liter Flow 3.0 Blood Gas Notified Whom ED MD Blood Gas Notified Time 955 Sodium Potassium Chloride Carbon Dioxide Anion Gap BUN Creatinine Estim Creat Clear Calc Est GFR (MDRD) Af Amer Est GFR (MDRD) Non-Af BUN/Creatinine Ratio Glucose Calcium Troponin I B-Natriuretic Peptide Clinical Impression(s) from Imaging Studies Chest X-Ray 11/18/18 10:08 IMPRESSION: Findings in keeping with a mild degree of CHF. Electronically Signed: Peter Bahena, at 10:46 EDT , Service support , Abdomen/Pelvis CT 11/18/18 10:56 IMPRESSION: Small amount of ascites. Sigmoid diverticulosis. Small bilateral effusions with bibasilar atelectasis and basilar scarring. Electronically Signed: Peter Bahena, at 11:37 EDT , Service support , Assessment/Plan All Active Problems (Last Reviewed 10/16/18 @ 13:26 by Vanessa Holden) (HFpEF) heart failure with preserved ejection fraction (Acute) Acute respiratory failure with hypoxia (Acute) Acute exacerbation of chronic obstructive pulmonary disease (COPD) (Acute) 1. Acute HFpEF EF 60% on 06/03/18 furosemide 40 BID IV fluid restrict 1500cc/day Dtr states her weekly weights have been stable. on Hydralazine and isosorbide (not a candidate for NICOLAS-/ARB given CKD) 2. Possible COPD exacerbation PFT on 10/02 showed moderate restrictive ventilatory impariment with reduction in diffusion Pulm consult with Dr. Ferreira Bronchodilators methylprednisolone 3. Pulmonary HTN complicates care mod-severe on RHC Type 2 and/or 3 4. HTN monitor continue home medications consider DC amlodipine given LE edema 5. DM2: continue metformin SSI 6. Vitamin D deficiency 25 OH D level on 10/16 was 9.6 start ergocalciferol 50,000 units weekly for 8 weeks 7. Anemia: stable has been iron-deficient in past (last done in July) will recheck iron studies 8. VTE proph: moderate risk. LMWH. 9. Advanced Care planning: confirmed through patient's daughters--DNRCCA Code Visit Inpatient E&M: 99900 Init Hosp L3
--- NOTE | 2018-11-18 15:14 | PCM.CONS.PUL ---
Problem List (1) Tricuspid insufficiency Status: Chronic Qualifiers: (2) Mitral insufficiency Status: Chronic Qualifiers: (3) ELAINE (obstructive sleep apnea) Status: Chronic (4) CKD (chronic kidney disease), stage III Status: Chronic (5) (HFpEF) heart failure with preserved ejection fraction Status: Acute Qualifiers: Heart failure chronicity: acute Qualified Code(s): I50.31 - Acute diastolic (congestive) heart failure (6) Atherosclerotic heart disease of [place] coronary artery without angina pectoris Status: Chronic Qualifiers: Comment: NATHAN to the LAD, and SVG to the diagonal branch, and SVG to the LCx system, and an SVG to the RCA on 04/16/2013 at [facility] with Dr. Fields (7) Essential hypertension Status: Chronic (8) Pulmonary hypertension Status: Chronic (9) Morbid obesity with BMI of 40.0-44.9, adult Status: Chronic (10) H/O four vessel coronary artery bypass graft Status: Chronic Comment: NATHAN to the LAD, and SVG to the diagonal branch, and SVG to the LCx system, and an SVG to the RCA on 04/16/2013 at [facility] with Dr. Fields (11) Dyslipidemia Status: Chronic (12) Diabetes mellitus type 2 in obese Status: Chronic Reason for Consult Date of Consultation: 11/18/18 Reason for Consultation: Hypoxia History of Present Illness: The patient is a 72 year old F, with past medical history listed below and well-known to me from the outpatient office, who presented to [facility] on 11/18/2018 secondary to increasing shortness of breath that occurred at approximately 3:15 AM. Patient reportedly had had some mild increased dyspnea on exertion yesterday, but woke this morning at approximately 3:15 AM significantly short of breath. Patient's daughter reports that she typically gets up with her and refills her reservoir for her BiPAP therapy. However, patient refused to reinitiate therapy secondary to some chest pressure. Patient also reported some abdominal discomfort that was diffuse. This was not associated with nausea, vomiting or diarrhea. No fevers have been noted. Patient has not been having any coughing, but did report some epistaxis despite the use of AYR gel in the air nares. On presentation to the ER, patient was noted to be tachypneic. ABG was unremarkable. Chest x-ray showed mild CHF and CT scan of the abdomen and pelvis showed some mild ascites. Patient was placed on supplemental oxygen, Lasix, given Solu-Medrol and placed on BiPAP therapy. No significant arrhythmias were reported. Patient was admitted to PCU for further evaluation. On my evaluation, patient was feeling subjectively improved compared to previous. Patient's daughters were at the bedside and reported that she is much improved from her presentation. Patient reportedly does check her weight every and had not noted any significant changes. Patient's daughters did report that she had gone out to [employer] and had a grilled cheese with spicy rice on Sunday. Otherwise, patient did not go to the fair. Patient has not had any sinus congestion, fever or chills. Patient has had some epistaxis and has seen ENT in the past, but not recently. Patient does not report any aspiration events. Patient denies any dysuria. Patient's daughters report that she has been more active recently and they have checked her saturations frequently. No irregular heart rhythms or palpitations have been noted. Patient has had some lower extremity edema, but they do not believe this is significantly changed compared to previous. Patient is compliant with BiPAP 17/13 centimeters of water at baseline. Patient denied any recent difficulty with compliance. Patient uses a full facemask at baseline. Past Medical History Past Medical History (Chronic Problems): Chronic Problems (Last Updated 11/18/18 @ 14:34 by Sandoval Tong DO) Tricuspid insufficiency (Chronic) Mitral insufficiency (Chronic) ELAINE (obstructive sleep apnea) (Chronic) CKD (chronic kidney disease), stage III (Chronic) Atherosclerotic heart disease of [place] coronary artery without angina pectoris (Chronic) NATHAN to the LAD, and SVG to the diagonal branch, and SVG to the LCx system, and an SVG to the RCA on 04/16/2013 at [facility] with Dr. Fields Essential hypertension (Chronic) Pulmonary hypertension (Chronic) Morbid obesity with BMI of 40.0-44.9, adult (Chronic) H/O four vessel coronary artery bypass graft (Chronic ~04/16/13) NATHAN to the LAD, and SVG to the diagonal branch, and SVG to the LCx system, and an SVG to the RCA on 04/16/2013 at [facility] with Dr. Fields Dyslipidemia (Chronic) COPD (chronic obstructive pulmonary disease) (Chronic) Diabetes mellitus type 2 in obese (Chronic) Medical History: Medical History (Last Updated 11/18/18 @ 14:34 by Sandoval Tong DO) Atherosclerotic heart disease of [place] coronary artery without angina pectoris (Chronic) I25.10 NATHAN to the LAD, and SVG to the diagonal branch, and SVG to the LCx system, and an SVG to the RCA on 04/16/2013 at [facility] with Dr. Fields Essential hypertension (Chronic) I10 Pulmonary hypertension (Chronic) I27.20 Morbid obesity with BMI of 40.0-44.9, adult (Chronic) E66.01, Z68.41 Dyslipidemia (Chronic) E78.5 COPD (chronic obstructive pulmonary disease) (Chronic) J44.9 Diabetes mellitus type 2 in obese (Chronic) E11.69, E66.9 (HFpEF) heart failure with preserved ejection fraction I50.30 CAD (coronary artery disease) (Inactive) I25.10 NATHAN to the LAD, and SVG to the diagonal branch, and SVG to the LCx system, and an SVG to the RCA on 04/16/2013 at [facility] with Dr. Fields Allergies Penicillins Allergy (Verified 11/18/18 09:25) Hives adhesive tape Adverse Reaction (Verified 11/18/18 09:25) Other Home Medications: Ambulatory Orders Medication Instructions Recorded Amitriptyline HCl [Elavil] 100 mg PO QHS 04/09/13 metFORMIN (XR) [Glucophage Xr] 500 mg PO DAILY 12/25/16 Aspirin E.C. [Ecotrin] 81 mg PO DAILY 10/25/17 Atorvastatin Calcium 80 mg PO DAILY 10/25/17 Gabapentin [Neurontin] 200 mg PO .COMPLEX 10/25/17 Amlodipine Besylate 10 mg PO DAILY 06/01/18 Ferrous Sulfate 325 mg PO 1200,1700 #120 tab 07/09/18 Potassium Chloride 20 meq PO DAILY #60 tab.er.prt 07/09/18 carvedilol 6.25 mg tablet 6.25 mg PO BID #60 tab 07/31/18 isosorbide mononitrate ER 60 mg 60 mg PO DAILY #60 tab 07/31/18 tablet,extended release 24 hr Albuterol Sulfate 1.25 mg IH 4X/DAY 08/20/18 Doxazosin Mesylate 8 mg PO QHS 08/20/18 Hydralazine HCl 100 mg PO TID 08/20/18 Omeprazole 40 mg PO DAILY 08/20/18 Prednisone 10 mg PO DAILY 08/20/18 budesonide-formoterol HFA 160 2 puff INHALATION BID #1 ea 09/25/18 mcg-4.5 mcg/actuation aerosol inhaler furosemide 40 mg tablet 40 mg PO BID@1000,1800 #120 tab 10/16/18 tiotropium 2.5 mcg-olodaterol 2.5 2 puff INHALATION DAILY #4 g 10/28/18 mcg/actuation mist for inhalation Surgical History: Surgical History (Last Reviewed 11/18/18 @ 14:35 by Sandoval Tong DO) H/O four vessel coronary artery bypass graft (Chronic) Onset Date: ~04/16/13 Z95.1 NATHAN to the LAD, and SVG to the diagonal branch, and SVG to the LCx system, and an SVG to the RCA on 04/16/2013 at [facility] with Dr. Fields Surgical History: appendectomy, cholecystectomy, - - CABG x4, cholecystectomy, appendectomy, left lower extremity vein stripping, tonsillectomy. Psychiatric History: Anxiety TUBE TESTER History: No pertinent TUBE TESTER history Smoking Status: Former smoker - *Family History Paternal Family History: Family History (Last Reviewed 11/18/18 @ 14:35 by Sandoval Tong DO) Mother Heart disease History Items: - - Patient notes a paternal family history of chronic COPD with tobacco use, heart disease and diabetes. Maternal Family History: Family History (Last Reviewed 11/18/18 @ 14:35 by Sandoval Tong DO) Mother Heart disease History Items: - - Patient notes a maternal family history of heart disease and diabetes. Review of Systems Constitutional: Denies: Anorexia, Chills, Fever, Night Sweats Eyes: Denies: Blurred vision, Double vision, Redness, Vision Change HEENT: Reports: Nasal bleeding. Denies: Difficulty Hearing, Ear Pain, Nasal Congestion, Post Nasal Drip, Sinus Congestion, Sore Throat Cardiovascular: Reports: Edema. Denies: Chest Pain, Chest Pressure, Chest Tightness, Light Headedness, Paroxysmal Noc. Dyspnea Respiratory: Reports: Cough, Shortness of breath upon exertion. Denies: Pleuritic Pain, Sputum production Gastrointestinal: Reports: Abdominal Pain. Denies: Hematemesis, Hematochezia, Nausea, Melena, Vomiting Genitourinary: Denies: Dysuria, Frequency, Hematuria Gynecological: Denies: Breast symptoms, Vaginal bleeding Musculoskeletal: Denies: Arm Pain, Foot Pain, Joint Pain, Shoulder Pain Skin: Denies: Dryness, Jaundice, Pruritis Neurological: Denies: Double vision, Change in Speech, Slurred speech, Numbness, Tingling Psychiatric: Denies: Anxiety, Depression, Homicidal Ideations, Suicidal Ideations Endocrine: Denies: Change in Body Habitus, Polydipsia, Polyuria Hematologic/ Lymphatic: Reports: - - Patient is supposed to get an iron infusion tomorrow as an outpatient. Denies: Adenopathy, Anemia, Easy Bruising Patient Problems: Active and Suspected Problems (Last Updated 11/18/18 @ 14:34 by Sandoval Tong DO) (HFpEF) heart failure with preserved ejection fraction (Acute) Objective: Chest x-ray was personally reviewed and appears to be consistent with mild CHF. Complete PFT performed 10/02/2018 showed moderate restrictive ventilatory defect with a symmetric reduction diffusing capacity (FVC 66%, FEV1 61%, TLC 68%, DLCO 47%). Echo (06/02/2018): EF 60% with stage II diastolic dysfunction and elevated pulmonary artery pressures of 44 mmHg. - Physical Exam General: Alert, Oriented x3, Cooperative, No apparent distress, - - Morbidly obese. Mild conversational dyspnea. HEENT: Atraumatic, PERRLA, EOMI, Normocephalic, - - No scleral icterus or injection noted. Oral: Moist Mucosa, No Gingival or Mucosal Lesions/ Ulcerations Neck: Supple, No Nodes, Trachea Midline, JVD, Right Lungs: No rhonchi, No wheeze, Diminished, Rales, - - Symmetric expansion. No dullness to percussion. Cardiovascular: Regular rate, Regular Rhythm, Normal S1, Normal S2, No murmurs, No rub noted, No Gallop, - - Sinus rhythm noted on telemetry. Abdomen: Bowel Sounds Present, Soft, Non Tender, Non-Distended Extremities: No clubbing, No cyanosis, Capillary Refill Less than 3 Seconds, Edema - 1-2+ bilateral lower extremities Skin: No rashes, No breakdown Musculoskeletal: No Tenderness to Palpation of Joints or Extremities Lymphatic: No Cervical, Supraclavicular, or Inguinal Adenopathy Neurological: Cranial nerves II-XII grossly intact, Neuro grossly intact, Motor Exam 5/5 strength throughout, Sensory exam intact to light touch and pain Psych/Mental Status: Alert and oriented to time, place, person, mood and affect Vital Signs Temp Pulse Resp BP Pulse Ox 36.7 C 89 18 159/73 H 96 11/18/18 13:51 11/18/18 13:51 11/18/18 13:51 11/18/18 13:51 11/18/18 13:51 Oxygen Flow Rate (L/min) 2 Oxygen Delivery Method Nasal Cannula Weight: 113.5 kg Body Mass Index (BMI) 45.7 Finger Stick Blood Glucose 155 Laboratory Tests Past 24 Hrs 11/18/18 11/18/18 11/18/18 09:50 09:50 09:50 WBC 10.8 RBC 2.82 L Hgb 7.5 L Hct 24.6 L MCV 87.2 MCH 26.6 L MCHC 30.5 L RDW Std Deviation 49.7 H RDW Coeff of Becca 15.6 H Plt Count 269 MPV 9.8 Immature Gran % (Auto) 2.100 H Neut % (Auto) 78.9 H Lymph % (Auto) 10.1 L [place] % (Auto) 7.0 Eos % (Auto) 1.5 Baso % (Auto) 0.4 Absolute Neuts (auto) 8.5 H Absolute Lymphs (auto) 1.09 Nucleated RBC % 0 Specimen Type Sample Site pH Bicarbonate Actual POC Total CO2 Base Excess O2 Saturation ABG pCO2 ABG pO2 Abram Test O2 Delivery Device Liter Flow Blood Gas Notified Whom Blood Gas Notified Time Sodium 137 Potassium 4.0 Chloride 99 Carbon Dioxide 30.0 Anion Gap 8 BUN 37 H Creatinine 1.67 H Estim Creat Clear Calc 24.44 Est GFR (MDRD) Af Amer 39 L Est GFR (MDRD) Non-Af 32 L BUN/Creatinine Ratio 22.2 H Glucose 140 H Calcium 8.8 Troponin I < 0.015 B-Natriuretic Peptide 320.6 H 11/18/18 10:03 WBC RBC Hgb Hct MCV MCH MCHC RDW Std Deviation RDW Coeff of Becca Plt Count MPV Immature Gran % (Auto) Neut % (Auto) Lymph % (Auto) [place] % (Auto) Eos % (Auto) Baso % (Auto) Absolute Neuts (auto) Absolute Lymphs (auto) Nucleated RBC % Specimen Type ART Sample Site R Radial pH 7.40 Bicarbonate Actual 29.3 H POC Total CO2 31 Base Excess 5 H O2 Saturation 98 ABG pCO2 47.1 H ABG pO2 101 H Abram Test POS O2 Delivery Device Nasal Can Liter Flow 3.0 Blood Gas Notified Whom ED MD Blood Gas Notified Time 955 Sodium Potassium Chloride Carbon Dioxide Anion Gap BUN Creatinine Estim Creat Clear Calc Est GFR (MDRD) Af Amer Est GFR (MDRD) Non-Af BUN/Creatinine Ratio Glucose Calcium Troponin I B-Natriuretic Peptide Clinical Impression(s) from Imaging Studies Chest X-Ray 11/18/18 10:08 IMPRESSION: Findings in keeping with a mild degree of CHF. Electronically Signed: Peter Bahena, at 10:46 EDT , Service support , Abdomen/Pelvis CT 11/18/18 10:56 IMPRESSION: Small amount of ascites. Sigmoid diverticulosis. Small bilateral effusions with bibasilar atelectasis and basilar scarring. Electronically Signed: Peter Bahena, at 11:37 EDT , Service support , Assessment/Plan All Active Problems (Last Updated 11/18/18 @ 14:34 by Sandoval Tong DO) Acute exacerbation of chronic obstructive pulmonary disease (COPD) (Acute) Acute respiratory failure with hypoxia (Acute) (HFpEF) heart failure with preserved ejection fraction (Acute) RECOMMENDATIONS: 1. Gentle diuresis as tolerated 2. Continue to monitor continuous pulse ox and telemetry 3. Use baseline BiPAP with sleep 4. Likely discontinue steroid therapy tomorrow if improved 5. Wean supplemental oxygen as tolerated IMPRESSIONS: 1. Acute hypoxic respiratory insufficiency secondary to acute on chronic diastolic CHF Patient is appropriately on diuretic therapy. Agree with fluid restriction. Patient states her weekly weights have been stable, but patient did have an increased salt load over the weekend. Cannot exclude an arrhythmia leading to exacerbation of underlying condition. Agree with continuous pulse ox and telemetry for now. This can be reviewed tomorrow. Patient is not reporting significant change in sputum, protracted shortness of breath or other symptomatology to suggest a COPD exacerbation. Likely discontinue steroid therapy tomorrow if continues to improve. 2. Type II pulmonary hypertension Patient with moderate to severe elevation on right heart cath in the past. Acute hypoxemia would exacerbate patient's underlying cor pulmonale could lead to flash pulmonary edema. Patient saturations are doing well at this time. We will continue to monitor. Patient appears to be responding well to diuretic therapy. 3. Hypertension/diabetes mellitus/iron deficiency anemia/advanced age/morbid obesity Complicates care, management, recovery and prognosis. Patient's blood counts are marginal at this time, but patient may be able to have iron infusion as an outpatient. Continue to monitor blood sugars closely, especially given IV steroid therapy. Encourage weight loss. Code Visit Inpatient E&M: 07520 Init Hosp L3
--- NOTE | 2018-11-18 15:17 | CASEMGMT ---
RN CM Assessment Introduced role of RN CM to patient and patient two Dtrs Adilene and Doris at bedside.? Patient is alert, oriented and able?to participate in RN CM Assessment. ?Care providers, pharmacy, and demographics verified. Presentation: SOB started yesterday, Diffuse Abd discomfort today. Admit Dx: CHF Ex Re-Admit: No, Inpt 08/20-08/22/18 for SOB, COPD, Dyspnea, CHF Barriers/Issues: None PCP: Levi Laird Specialists: Cardio- Dr Clarke, Pulm SOURCE INSPECTOR- Lia Meléndez Pref[facility]acy[facility] Insurance: [facility] Rx Benefit:?Yes with [facility] LNOK: HPOA Dtr Adilene Morin, Dtr Doris Marcelo LW/HPOA: Yes both on file with [facility]. HPOA- Dtr Adilene Morin. Josie-JOCELINE made aware per Dtr's at bedside and patient would like to update HPOA removing a person and adding a different person. Living Arrangements:?Lives with Dtr Doris in a SS home, 4 steps to enter home. ADL?s: Independent with ambulation, does use WC for further distances and walker as needed. Independent with ADL's, however Dtr Doris does stand by in case patient needs assistance. Transportation: Dtr Doris Transports patient and states family to transport with no transportations issues or concerns. DME: Walker, Cane, WC, Home O2 continuous at 2-2.5LPM-[place], Bipap, Portable O2 tank, Shower Chair HHC: Past-[facility] SNF: None Goal: Home and states that patient is already feeling/doing better than when she presented to the ER. Denies any questions, concerns, or issues with DC planning at this time. Aware CM remains available for any emerging needs. DC PLAN: Home with no anticipated needs identified at this time. MARYANNE Titus
[2018-11-18 15:55] LABS: Bedside Glucose 292 mg/dL (70-110)
[2018-11-18] MEDS: Ferrous Sulfate 325 MG Tablet PO (16:26)
[2018-11-18] MEDS: Insulin Lispro 100 UNIT/ML INSULN.PEN SC ×2 (16:26→22:32)
[2018-11-18] MEDS: Doxazosin 4 MG Tablet 8 MG PO (21:55)
[2018-11-18] MEDS: Amitriptyline 100 MG Tablet PO (21:55)
[2018-11-18] MEDS: Atorvastatin Calcium 80 MG Tablet PO (21:55)
[2018-11-18] MEDS: Carvedilol 6.25 MG Tablet PO (21:55)
[2018-11-18] MEDS: hydrALAZINE 50 MG Tablet 100 MG PO (21:55)
[2018-11-18] MEDS: Gabapentin 400 MG Capsule PO (21:56)
[2018-11-18 22:00] LABS: Bedside Glucose 357 mg/dL (70-110)
[2018-11-19] VITALS (22 sets, daily range): BP systolic 124–169; BP diastolic 51–88; PULSE 77–98; RESP 16–22; TEMP 36.2–37.3; O2SAT 94–97
[2018-11-19] MEDS: Ipratropium/Albuterol Sulfate 3 ML AMPUL.NEB INHALATION ×6 (01:42→22:02)
[2018-11-19] MEDS: Insulin Lispro 100 UNIT/ML INSULN.PEN SC ×5 (02:16→22:06)
[2018-11-19 02:26] LABS: Bedside Glucose 313 mg/dL (70-110)
[2018-11-19] MEDS: hydrALAZINE 50 MG Tablet 100 MG PO ×3 (05:23→22:00)
[2018-11-19] MEDS: 0.9% NaCl Peripheral Flush Adult/Peds IV ×2 (05:24→18:50)
[2018-11-19 05:52] LABS: Absolute Lymphocyte Count 0.41 X10^3/uL (0.83-4.51); Basophil# 0.01 X10^3/uL; Basophil% 0.1 % (0-1); Hematocrit 23.9 % (37-47); Hemoglobin 7.3 g/dL (12.0-15.0); Lymphocyte # 0.41 X10^3/ul (4.0); Lymphocyte % 4.7 % (19-41); Mean Corp Hgb Conc 30.5 g/dL (32-36); Mean Corpuscular Hgb 26.3 pg (27.0-32.0); Mean Platelet Vol. 10.4 fl (6.2-12.0); Monocyte# 0.19 X10^3/uL; Monocyte% 2.2 % (0-10); NRBC Flagged by Analyzer 0 % (0-5); Neutrophil # 7.97 X10^3/uL (2.7-7.7); Neutrophil % 91.6 % (47-70); POSITIVE DIFFERENTIAL YES; Platelet Count 297 K/mm3 (150-450); RBC Distribution Width CV 15.6 % (11.6-14.6); RBC Distribution Width SD 48.9 fl (35.1-43.9); Red Blood Count 2.78 M/mm3 (4.2-5.4); White Blood Count 8.7 K/mm3 (4.4-11.0)
[2018-11-19 06:07] LABS: Differential Indicated SCAN CRITERIA MET
[2018-11-19 06:09] LABS: Anion Gap 11 (5-15); BUN 46 mg/dL (7-18); BUN/Creat Ratio 23.7 RATIO (10-20); Calcium,Total 8.6 mg/dL (8.5-10.1); Chloride 98 mmol/L (98-107); Creatinine, Serum 1.94 mg/dL (0.55-1.02); EST Glomerular Filtration Rate 27 mL/min (>60); Est Glom Filt Rate - Afr Amer 33 mL/min (>60); Estimated Creatinine Clearance 21.04 ml/min; Ferritin 46 ng/mL (8-252); Glucose 308 mg/dL (74-106); Iron Binding Capacity,Total 287 ug/dL (250-450); Potassium 4.2 mmol/L (3.5-5.1); Sodium Level 137 mmol/L (136-145)
--- NOTE | 2018-11-19 06:40 | CPS ---
PT HAS OWN BIPAP, HOOKED UP AND IN USE
[2018-11-19 06:43] LABS: Acanthocytes 1+; Differential Comment SCANNED; Hypochromasia 2+
[2018-11-19 06:46] LABS: Bedside Glucose 294 mg/dL (70-110)
[2018-11-19] MEDS: Carvedilol 6.25 MG Tablet PO ×2 (09:02→22:00)
[2018-11-19] MEDS: Pantoprazole Sodium 40 MG Tablet PO (09:02)
[2018-11-19] MEDS: Gabapentin 100 MG Capsule 200 MG PO (09:02)
[2018-11-19] MEDS: Enoxaparin 30 MG/0.3 ML Syringe SC (09:02)
[2018-11-19] MEDS: Furosemide 40 MG/4 ML Vial IV ×2 (09:02→18:50)
[2018-11-19] MEDS: Isosorbide Mononitrate 60 MG Tablet PO (09:02)
[2018-11-19] MEDS: Aspirin E.C. 81 MG Tablet PO (09:02)
[2018-11-19] MEDS: amLODIPine 10 MG Tablet PO (09:02)
--- NOTE | 2018-11-19 09:34 | PCM.PN.PUL ---
Patient Problems: Active and Suspected Problems (Last Updated 11/18/18 @ 14:34 by Sandoval Tong DO) (HFpEF) heart failure with preserved ejection fraction (Acute) Subjective: The patient was seen and examined at the bedside this morning. Events from the last 24 hours have been reviewed. The patient is currently afebrile, hemodynamically stable and maintaining appropriate oxygen saturations on 2.5 L/min via nasal cannula. The patient's breathing quality has improved since her hospital admission in the setting of BiPAP utilization and diuretics. Objective: The patient's most recent lab work, culture data and imaging studies have all been personally reviewed. - Physical Exam General: Alert, Oriented x3, Cooperative, No apparent distress HEENT: Atraumatic, PERRLA, Normocephalic Oral: No Gingival or Mucosal Lesions/ Ulcerations Neck: Supple, No Nodes, Trachea Midline Lungs: No rhonchi, No wheeze, Diminished, Rales Cardiovascular: Regular rate, Regular Rhythm, Normal S1, Normal S2, No murmurs Abdomen: Bowel Sounds Present, Soft, Non Tender, Obese Extremities: No clubbing, No cyanosis, Edema Skin: No breakdown Musculoskeletal: No Tenderness to Palpation of Joints or Extremities, No Muscle Wasting Lymphatic: No Cervical, Supraclavicular, or Inguinal Adenopathy Neurological: Cranial nerves II-XII grossly intact, Neuro grossly intact Psych/Mental Status: Alert and oriented to time, place, person, mood and affect Vital Signs Temp Pulse Resp BP Pulse Ox 98.5 F 87 18 157/51 H 95 11/19/18 08:57 11/19/18 08:57 11/19/18 08:57 11/19/18 08:57 11/19/18 08:57 Oxygen Flow Rate (L/min) 2.5 Oxygen Delivery Method Nasal Cannula Weight: 253 lb 1.451 oz Body Mass Index (BMI) 45.7 Finger Stick Blood Glucose 155 Intake and Output for Last 24 Hours 11/17/18 11/18/18 11/19/18 23:59 23:59 23:59 Intake Total 240 / 240 360 / 360 Output Total 300 / 300 Balance 240 / 240 60 / 60 Laboratory Tests Past 24 Hrs 11/18/18 11/18/18 11/18/18 09:50 09:50 09:50 WBC 10.8 RBC 2.82 L Hgb 7.5 L Hct 24.6 L MCV 87.2 MCH 26.6 L MCHC 30.5 L RDW Std Deviation 49.7 H RDW Coeff of Becca 15.6 H Plt Count 269 MPV 9.8 Immature Gran % (Auto) 2.100 H Neut % (Auto) 78.9 H Lymph % (Auto) 10.[address] [place] % (Auto) 7.0 Eos % (Auto) 1.5 Baso % (Auto) 0.4 Absolute Neuts (auto) 8.5 H Absolute Lymphs (auto) 1.09 Nucleated RBC % 0 Differential Comment Hypochromasia Acanthocytes (Spur) Specimen Type Sample Site pH Bicarbonate Actual POC Total CO2 Base Excess O2 Saturation ABG pCO2 ABG pO2 Abram Test O2 Delivery Device Liter Flow Blood Gas Notified Whom Blood Gas Notified Time Sodium 137 Potassium 4.0 Chloride 99 Carbon Dioxide 30.0 Anion Gap 8 BUN 37 H Creatinine 1.67 H Estim Creat Clear Calc 24.44 Est GFR (MDRD) Af Amer 39 L Est GFR (MDRD) Non-Af 32 L BUN/Creatinine Ratio 22.2 H Glucose 140 H Calcium 8.8 TIBC Ferritin Troponin I < 0.015 B-Natriuretic Peptide 320.6 H 11/18/18 11/19/18 11/19/18 10:03 05:02 05:02 WBC 8.7 RBC 2.78 L Hgb 7.3 L Hct 23.9 L MCV 86.0 MCH 26.3 L MCHC 30.5 L RDW Std Deviation 48.9 H RDW Coeff of Becca 15.6 H Plt Count 297 MPV 10.4 Immature Gran % (Auto) 1.400 H Neut % (Auto) 91.6 H Lymph % (Auto) 4.[address] [place] % (Auto) 2.2 Eos % (Auto) 0.0 Baso % (Auto) 0.1 Absolute Neuts (auto) 8.0 H Absolute Lymphs (auto) 0.41 L Nucleated RBC % 0 Differential Comment SCANNED Hypochromasia 2+ Acanthocytes (Spur) 1+ Specimen Type ART Sample Site R Radial pH 7.40 Bicarbonate Actual 29.3 H POC Total CO2 31 Base Excess 5 H O2 Saturation 98 ABG pCO2 47.1 H ABG pO2 101 H Abram Test POS O2 Delivery Device Nasal Can Liter Flow 3.0 Blood Gas Notified Whom ED MD Blood Gas Notified Time 955 Sodium 137 Potassium 4.2 Chloride 98 Carbon Dioxide 28.0 Anion Gap 11 BUN 46 H Creatinine 1.94 H Estim Creat Clear Calc 21.04 Est GFR (MDRD) Af Amer 33 L Est GFR (MDRD) Non-Af 27 L BUN/Creatinine Ratio 23.7 H Glucose 308 H Calcium 8.6 TIBC 287 Ferritin 46 Troponin I B-Natriuretic Peptide POC Glucose 11/19/18 11/19/18 11/18/18 06:38 02:14 21:41 POC Glucose 294 H 313 H 357 H 11/18/18 15:52 POC Glucose 292 H Clinical Impression(s) from Imaging Studies Chest X-Ray 11/18/18 10:08 IMPRESSION: Findings in keeping with a mild degree of CHF. Electronically Signed: Peter Bahena, at 10:46 EDT , Service support , Abdomen/Pelvis CT 11/18/18 10:56 IMPRESSION: Small amount of ascites. Sigmoid diverticulosis. Small bilateral effusions with bibasilar atelectasis and basilar scarring. Electronically Signed: Peter Bahena, at 11:37 EDT , Service support , Medical Necessity - Tobacco Use Smoking Status: Former smoker Assessment/Plan All Active Problems (Last Updated 11/18/18 @ 14:34 by Sandoval Tong DO) Acute exacerbation of chronic obstructive pulmonary disease (COPD) (Acute) Acute respiratory failure with hypoxia (Acute) (HFpEF) heart failure with preserved ejection fraction (Acute) RECOMMENDATIONS: 1. May wish to consider de-escalation and diuretic regimen, given worsening renal insufficiency. 2. Continue BiPAP therapy with naps and nightly. 3. Discontinue corticosteroids, as the patient has no evidence of COPD on PFTs. 4. Agree with transfusion of blood products. 5. Encourage incentive spirometer use and mobilize patient as tolerated. IMPRESSIONS: 1. Acute hypoxic respiratory insufficiency secondary to acute on chronic diastolic CHF Patient is appropriately on diuretic therapy. Agree with fluid restriction. I would recommend de-escalation in her diuretic regimen given renal insufficiency. Continue nocturnal BiPAP therapy. Wean supplemental oxygen as tolerated and encourage incentive spirometer use. The patient's most recent pulmonary function studies showed no evidence of COPD. The patient in fact has underlying restrictive lung disease. Recommend discontinuation of corticosteroids. Her shortness of breath may also be compounded by the fact that she is anemic. There are plans for her to receive a transfusion today. 2. Type II pulmonary hypertension Patient with moderate to severe elevation on right heart cath in the past. Acute hypoxemia would exacerbate patient's underlying cor pulmonale could lead to flash pulmonary edema. Patient saturations are doing well at this time. We will continue to monitor. Patient appears to be responding well to diuretic therapy. 3. Hypertension/diabetes mellitus/iron deficiency anemia/advanced age/morbid obesity Complicates care, management, recovery and prognosis. Okay to continue home medications from my perspective. This note was generated with [employer] software. It may contain incorrect words, spelling, and punctuation that were not noted in checking the note before signing. Code Visit Inpatient E&M: 60538 Subs Hosp L2
--- NOTE | 2018-11-19 10:02 | CASEMGMT ---
Per RN CM patient would like to change her Healthcare POA papers. SW stopped in to see patient and she confirmed she did want to change papers, but asked if SW could come back later as she had company right now. Josie GREENWOOD MSW
--- NOTE | 2018-11-19 10:53 | PCM.CONS.C ---
<Prema Mixon - Last Filed: 11/19/18 10:53> Problem List (1) Acute exacerbation of chronic obstructive pulmonary disease (COPD) Status: Acute (2) ELAINE (obstructive sleep apnea) Status: Chronic (3) (HFpEF) heart failure with preserved ejection fraction Status: Acute Qualifiers: Heart failure chronicity: acute Qualified Code(s): I50.31 - Acute diastolic (congestive) heart failure (4) Atherosclerotic heart disease of [place] coronary artery without angina pectoris Status: Chronic Comment: NATHAN to the LAD, and SVG to the diagonal branch, and SVG to the LCx system, and an SVG to the RCA on 04/16/2013 at [facility] with Dr. Fields (5) Essential hypertension Status: Chronic (6) Pulmonary hypertension Status: Chronic Reason for Consult Date of Consultation: 11/19/18 History of Present Illness: The patient is a 72 year old F that was admitted on 11/18/2018 for sudden increase of shortness of breath. Patient states that on Sunday during the daytime she felt fine. She was not having any worsening symptoms of shortness of breath however during the evening she became more short of breath with exertion and had noted wheezing. She then presented to the emergency room. She was noted to have small bilateral pleural effusion and a small amount of ascites noted on abdominal CT scan. Her BNP was elevated at 320. Is also noted that she is anemic with a hemoglobin of 7.3. Per patient she was scheduled to have IV iron transfusion today. Patient does have a history of coronary artery disease with previous bypass surgery, severe pulmonary hypertension, hypertension, tricuspid and mitral insufficiency, COPD, obstructive sleep apnea, bradycardia that was treated by holding multiple rate weaning medications that had required a temporary transvenous pacemaker, diabetes, chronic renal insufficiency. Patient does not have any chest discomfort prior to hospital admission. She does not feel that her lower extremity has gotten any worse. She does however note an increase in palpitations. She states that this is increased over the last few weeks and where she has noted it to last a few minutes several times a day. Past Medical History Allergies/Adverse Reactions: Allergies Penicillins Allergy (Verified 11/18/18 09:25) Hives adhesive tape Adverse Reaction (Verified 11/18/18 09:25) Other Home Medications: Ambulatory Orders Medication Instructions Recorded Amitriptyline HCl [Elavil] 100 mg PO QHS 04/09/13 metFORMIN (XR) [Glucophage Xr] 500 mg PO DAILY 12/25/16 Aspirin E.C. [Ecotrin] 81 mg PO DAILY 10/25/17 Atorvastatin Calcium 80 mg PO DAILY 10/25/17 Gabapentin [Neurontin] 200 mg PO .COMPLEX 10/25/17 Amlodipine Besylate 10 mg PO DAILY 06/01/18 Ferrous Sulfate 325 mg PO 1200,1700 #120 tab 07/09/18 Potassium Chloride 20 meq PO DAILY #60 tab.er.prt 07/09/18 carvedilol 6.25 mg tablet 6.25 mg PO BID #60 tab 07/31/18 isosorbide mononitrate ER 60 mg 60 mg PO DAILY #60 tab 07/31/18 tablet,extended release 24 hr Albuterol Sulfate 1.25 mg IH 4X/DAY 08/20/18 Doxazosin Mesylate 8 mg PO QHS 08/20/18 Hydralazine HCl 100 mg PO TID 08/20/18 Omeprazole 40 mg PO DAILY 08/20/18 Prednisone 10 mg PO DAILY 08/20/18 budesonide-formoterol HFA 160 2 puff INHALATION BID #1 ea 09/25/18 mcg-4.5 mcg/actuation aerosol inhaler furosemide 40 mg tablet 40 mg PO BID@1000,1800 #120 tab 10/16/18 tiotropium 2.5 mcg-olodaterol 2.5 2 puff INHALATION DAILY #4 g 10/28/18 mcg/actuation mist for inhalation Past Medical History (Chronic Problems): Chronic Problems (Last Updated 11/18/18 @ 14:34 by Sandoval Tong DO) Tricuspid insufficiency (Chronic) Mitral insufficiency (Chronic) ELAINE (obstructive sleep apnea) (Chronic) CKD (chronic kidney disease), stage III (Chronic) Atherosclerotic heart disease of [place] coronary artery without angina pectoris (Chronic) NATHAN to the LAD, and SVG to the diagonal branch, and SVG to the LCx system, and an SVG to the RCA on 04/16/2013 at [facility] with Dr. Fields Essential hypertension (Chronic) Pulmonary hypertension (Chronic) Morbid obesity with BMI of 40.0-44.9, adult (Chronic) H/O four vessel coronary artery bypass graft (Chronic ~04/16/13) NATHAN to the LAD, and SVG to the diagonal branch, and SVG to the LCx system, and an SVG to the RCA on 04/16/2013 at [facility] with Dr. Fields Dyslipidemia (Chronic) COPD (chronic obstructive pulmonary disease) (Chronic) Diabetes mellitus type 2 in obese (Chronic) Surgical History: appendectomy, cholecystectomy, - - CABG x4, cholecystectomy, appendectomy, left lower extremity vein stripping, tonsillectomy. 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 Maternal Family History: Family History (Last Reviewed 11/18/18 @ 14:35 by Sandoval Tong DO) Mother Heart disease History Items: - - Patient notes a maternal family history of heart disease and diabetes. Smoking Status: Former smoker Review of Systems - Review of Systems General: Reports: Fatigue. Denies: Fever, Malaise, Weight Loss HEENT: Denies: Vision Change, Sore Throat Cardiovascular: Reports: Shortness of Breath with Exertion, Peripheral Edema, Palpitations. Denies: Chest Discomfort, Chest Discomfort at Rest, Chest Discomfort with Exertion, Shortness of Breath at Rest, Orthopnea, Lightheadedness, Near Syncope, Syncope Respiratory: Reports: Cough Gastrointestinal: Denies: Heart Burn, Hematemesis, Hematochezia, Diarrhea Genitourinary: Denies: Hematuria Muscoloskeletal: Reports: Myalgias Objective: Vital Signs Temp Pulse Resp BP Pulse Ox 98.5 F 87 18 157/51 H 95 11/19/18 08:57 11/19/18 08:57 11/19/18 08:57 11/19/18 08:57 11/19/18 08:57 Oxygen Flow Rate (L/min) 2.5 Oxygen Delivery Method Nasal Cannula Weight: 253 lb 1.451 oz Body Mass Index (BMI) 45.7 Finger Stick Blood Glucose 155 Intake and Output for Last 24 Hours 11/17/18 11/18/18 11/19/18 23:59 23:59 23:59 Intake Total 240 / 240 360 / 360 Output Total 300 / 300 Balance 240 / 240 60 / 60 General: Awake, Alert, Oriented x 3, Obese HEENT: Atraumatic, Normocephalic, PERRL Oral: Moist Mucosa Neck: Supple, No JVD Lungs: Diminished Fabricio Bases, Expiratory Wheezes-Fabricio Cardiovascular: Regular Rhythm, Normal S1, Normal S2, No Rubs, No Gallops Murmur Murmur: Grade 2/6, Loud, Mid Systolic, LLSB Abdomen: Bowel Sounds Present, Soft, Non Tender Extremities: No edema Neurological: No Focal Motor or Sensory Deficit, CN II-XII Intact 11/19/18 05:02: WBC 8.7, RBC 2.78 L, Hgb 7.3 L, Hct 23.9 L, MCV 86.0, MCH 26.3 L, MCHC 30.5 L, Plt Count 297, MPV 10.4, Immature Gran % (Auto) 1.400 H, Neut % (Auto) 91.6 H, Lymph % (Auto) 4.7 L, Baker % (Auto) 2.2, Eos % (Auto) 0.0, Baso % (Auto) 0.1, Absolute Neuts (auto) 8.0 H, Nucleated RBC % 0 11/19/18 05:02: Sodium 137, Potassium 4.2, Chloride 98, Carbon Dioxide 28.0, Anion Gap 11, BUN 46 H, Creatinine 1.94 H, Est GFR (MDRD) Af Amer 33 L, Est GFR (MDRD) Non-Af 27 L, BUN/Creatinine Ratio 23.7 H, Glucose 308 H, Calcium 8.6, TIBC 287, Ferritin 46 Rhythm: EKG: ECHO: Echocardiogram from 2019 demonstrates normal LV size, left ventricular systolic function normal with an estimated ejection fraction of 60%. Stage II diastolic dysfunction, mild mitral insufficiency. Mild to moderate tricuspid insufficiency. With an RVSP of 44 mmHg. Mild Aortic valve calcification. Stress Test: Cardiac Cath: From July 2018 demonstrated to severe pulmonary hypertension. PCI: CT Surgery: Holter monitor: EPS: PPM: CXR: Chest CT Scan: Assessment/Plan 1. Acute diastolic congestive heart failure: Patient's BNP was elevated. She is currently on IV Lasix. Her weights have been stable when compared to previous office visit. Do feel that patient's anemia could be contributing to patient's congestive heart failure. Would recommend that she have a blood transfusion with IV Lasix. Patient is not on an NICOLAS or an ARB with her chronic kidney disease. 2. Tricuspid insufficiency: Patient does have a newly noted murmur that was not noted at her last office visit. This could be related to her congestive heart failure and her anemia. Recommend continuation of diuretics. Recommend blood transfusion as mentioned above. Will also consider repeating an echocardiogram. 3. Pulmonary hypertension: Patient does have moderate to her pulmonary hypertension based on a previous right heart cath. She is being followed by pulmonary. She is also continue to use her oxygen and CPAP. 4. Hypertension: Pressures appear to be controlled. She will continue with her current home medications. 5. Coronary artery disease: Patient does have a history of bypass surgery. Patient is not on any rate limiting medication due to her history of bradycardia in the past. She is not on an Aspirin due to her anemia. She will remain in high dose statin. Currently she is not having any chest discomfort. Her troponin was negative. We will continue to monitor. 6. Palpitations: this is newer for patient, will monitor with telemetry for now. She is not on a beta cha d/t her history of bradycardia in the past. 6. COPD: Patient is being followed by pulmonary. 7. Anemia: Patient's hemoglobin has decreased since July of this year. Hemoglobin upon admission was 7.5. Do feel that her anemia is complicating her disease processes. Recommend that patient have a blood transfusion with IV Lasix. 8. Chronic renal insufficiency: We will need to continue to monitor renal function closely as she is receiving diuretics. This case has been discussed with Dr. Clarke. <Alex Clarke - Last Filed: 11/19/18 20:24> Reason for Consult History of Present Illness: The patient is a 72 year old F [] Past Medical History - *Family History Paternal Family History: Family History (Last Reviewed 11/18/18 @ 14:35 by Sandoval Tong DO) Mother Heart disease Maternal Family History: Family History (Last Reviewed 11/18/18 @ 14:35 by Sandoval Tong DO) Mother Heart disease Objective: Vital Signs Temp Pulse Resp BP Pulse Ox 99.2 F H 96 18 155/62 H 96 11/19/18 18:48 11/19/18 19:16 11/19/18 18:48 11/19/18 18:48 11/19/18 18:48 Oxygen Flow Rate (L/min) 2 Oxygen Delivery Method Nasal Cannula Weight: 253 lb 1.451 oz Body Mass Index (BMI) 45.7 Finger Stick Blood Glucose 155 Intake and Output for Last 24 Hours 11/17/18 11/18/18 11/19/18 23:59 23:59 23:59 Intake Total 240 / 240 2550 / 2550 Output Total 800 / 800 Balance 240 / 240 1750 / 1750 11/19/18 05:02: WBC 8.7, RBC 2.78 L, Hgb 7.3 L, Hct 23.9 L, MCV 86.0, MCH 26.3 L, MCHC 30.5 L, Plt Count 297, MPV 10.4, Immature Gran % (Auto) 1.400 H, Neut % (Auto) 91.6 H, Lymph % (Auto) 4.7 L, Baker % (Auto) 2.2, Eos % (Auto) 0.0, Baso % (Auto) 0.1, Absolute Neuts (auto) 8.0 H, Nucleated RBC % 0 11/19/18 05:02: Sodium 137, Potassium 4.2, Chloride 98, Carbon Dioxide 28.0, Anion Gap 11, BUN 46 H, Creatinine 1.94 H, Est GFR (MDRD) Af Amer 33 L, Est GFR (MDRD) Non-Af 27 L, BUN/Creatinine Ratio 23.7 H, Glucose 308 H, Calcium 8.6, TIBC 287, Ferritin 46 Rhythm: EKG: ECHO: Stress Test: Cardiac Cath: PCI: CT Surgery: Holter monitor: EPS: PPM: CXR: Chest CT Scan: Assessment/Plan Addendum: Date: 11-19-18 The patient was independently evaluated and examined The patient complained of progressive shortness of breath and dyspnea and findings compatible with orthopnea. She denied ongoing chest discomfort. She has had a report of mild edema of the lower extremities. There is been no near syncope or syncope. She states she has been evaluated for her anemia. It has progressively been getting worse despite iron supplements. Based upon worsening shortness of breath and dyspnea she was brought to the hospital for further evaluation. Based upon her evaluation with respect to her laboratory profile her hemoglobin had progressively decreased. Her renal function demonstrated continued evidence of an elevated creatinine level. Her BNP level was mildly elevated. A chest x-ray suggested findings compatible with CHF per the radiology report. She does state that since being in the hospital with IV diuresis she has felt better. On examination is noted that she still has a minimally elevated blood pressures. Her lungs demonstrate diminished breath sounds in the bases. He also has inspiratory and expiratory wheezing. Her cardiovascular exam demonstrates a regular rhythm at this time. She does have a normal S1 and S2 and a 3/6 systolic murmur at the lower left sternal border rating toward the LV outflow tract area as well as the apex. Her lower extremities do demonstrate mild lower extremity bilateral edema involving the ankle areas. Her laboratory studies are as noted. Her ECG demonstrated sinus rhythm with no acute ECG changes. At the present time the patient has multiple diagnoses. She has a history of underlying CAD status post revascularization therapy as well as valvular heart disease with both MR and TR as well as a history of bradycardia dysrhythmias requiring temporary transvenous pacemaker placement as well as evidence of pulmonary hypertension by right heart catheterization which was demonstrated to be moderate to severe superimposed upon a history previously reported compatible with COPD as well as her chronic renal insufficiency and anemia. At the present time there is concern that her progressive anemia may have exacerbated her underlying cardiopulmonary status. Thus it was recommended that she be treated with PRBC transfusion to increase her hemoglobin level to increase her oxygen carrying capacity as well as with IV diuresis to improve her volume status. She can continue noninvasive evaluation as deemed appropriate. There are no immediate plans for further invasive cardiovascular evaluation at this time. He also has previous pulmonary disease by her PFTs demonstrating a restrictive component with decreased diffusing capacity. She should continue evaluation care per pulmonology. She will need continued follow-up with nephrology. There is caution with respect to her medications to avoid recurrence of her bradycardia dysrhythmias while trying to care for her hypertension and her volume status. She will also need continued follow-up with hematology/oncology for her anemia issues. However it was also thought that the patient should have an attempt at keeping her hemoglobin elevated to assist with her cardiopulmonary process. The above was discussed and reviewed with the patient and her family members present. The above was also discussed and reviewed with Prema Mixon PA-C. This note was generated using a voice recognition system and there may be incorrect words, spelling or punctuation that were not noted when reviewing the office note prior to saving.
[2018-11-19 11:16] LABS: Bedside Glucose 354 mg/dL (70-110)
--- NOTE | 2018-11-19 12:24 | PN_ITS ---
Patient Problems: Active and Suspected Problems (Last Updated 11/18/18 @ 14:34 by Sandoval Tong DO) (HFpEF) heart failure with preserved ejection fraction (Acute) Subjective: Breathing better. Vitals/I&O's: Vital Signs Temp Pulse Resp BP Pulse Ox 36.9 C 89 16 157/51 H 95 11/19/18 08:57 11/19/18 11:33 11/19/18 11:33 11/19/18 08:57 11/19/18 08:57 Oxygen Flow Rate (L/min) 2.5 Oxygen Delivery Method Nasal Cannula Weight: 114.8 kg Body Mass Index (BMI) 45.7 Finger Stick Blood Glucose 155 Intake and Output for Last 24 Hours 11/17/18 11/18/18 11/19/18 23:59 23:59 23:59 Intake Total 240 / 240 360 / 360 Output Total 300 / 300 Balance 240 / 240 60 / 60 General: Alert, No apparent distress HEENT: Atraumatic, Normocephalic Oral: Moist Mucosa, No Gingival or Mucosal Lesions/ Ulcerations Neck: No Nodes, Thyroid Normal Size and Texture Lungs: Clear to auscultation, Diminished Cardiovascular: Regular rate, Regular Rhythm, Murmur Abdomen: Bowel Sounds Present, Soft, Non Tender, Non-Distended, Obese Extremities: No Calf Tenderness, Edema Skin: No rashes, No breakdown Psych/Mental Status: Normal Affect, Appropriate Laboratory Results 11/18/18 15:52: POC Glucose 292 H 11/18/18 21:41: POC Glucose 357 H 11/19/18 02:14: POC Glucose 313 H 11/19/18 05:02: WBC 8.7, RBC 2.78 L, Hgb 7.3 L, Hct 23.9 L, MCV 86.0, MCH 26.3 L , MCHC 30.5 L, RDW Std Deviation 48.9 H, RDW Coeff of Becca 15.6 H, Plt Count 297, MPV 10.4, Immature Gran % (Auto) 1.400 H, Neut % (Auto) 91.6 H, Lymph % (Auto) 4.7 L, [place] % (Auto) 2.2, Eos % (Auto) 0.0, Baso % (Auto) 0.1, Absolute Neuts (auto) 8.0 H, Absolute Lymphs (auto) 0.41 L, Nucleated RBC % 0, Differential Comment SCANNED, Hypochromasia 2+, Acanthocytes (Spur) 1+ 11/19/18 05:02: Sodium 137, Potassium 4.2, Chloride 98, Carbon Dioxide 28.0, Anion Gap 11, BUN 46 H, Creatinine 1.94 H, Estim Creat Clear Calc 21.04, Est GFR (MDRD) Af Amer 33 L, Est GFR (MDRD) Non-Af 27 L, BUN/Creatinine Ratio 23.7 H, Glucose 308 H, Calcium 8.6, TIBC 287, Ferritin 46 11/19/18 06:38: POC Glucose 294 H 11/19/18 11:10: POC Glucose 354 H 11/19/18 11:38: Blood Type Pending, Antibody Screen Pending, Crossmatch See Detail Current Medications Acetaminophen (Tylenol) 650 mg PO Q6H PRN PRN PRN Reason: Mild pain 1-3/Temp > 100.7 F Albuterol Sulfate (Ventolin Aerosols) 2.5 mg INHALATION Q2H PRN PRN PRN Reason: SHORTNESS OF BREATH Albuterol/Ipratropium (Duoneb) 3 ml INHALATION Q4H.RT [facility] Last Admin: 11/19/18 11:33 Dose: 3 ml Documented by: Amitriptyline HCl (Elavil) 100 mg PO QHS [facility] Last Admin: 11/18/18 21:55 Dose: 100 mg Documented by: Amlodipine Besylate (Norvasc) 10 mg PO DAILY [facility] Last Admin: 11/19/18 09:02 Dose: 10 mg Documented by: Aspirin (Ecotrin) 81 mg PO DAILY [facility] Last Admin: 11/19/18 09:02 Dose: 81 mg Documented by: Atorvastatin Calcium (Lipitor) 80 mg PO QHS [facility] Last Admin: 11/18/18 21:55 Dose: 80 mg Documented by: Carvedilol (Coreg) 6.25 mg PO BID [facility] Last Admin: 11/19/18 09:02 Dose: 6.25 mg Documented by: Dextrose (D50w Syringe) 0 gm IV X1 PRN; Protocol PRN Reason: Hypoglycemia Doxazosin Mesylate (Cardura) 8 mg PO QHS [facility] Last Admin: 11/18/18 21:55 Dose: 8 mg Documented by: Enoxaparin Sodium (Lovenox) 30 mg SC DAILY@1000 [facility] Last Admin: 11/19/18 09:02 Dose: 30 mg Documented by: Ergocalciferol (Vitamin D) 50,000 unit PO Th [facility] Ferrous Sulfate (Ferrous Sulfate) 325 mg PO 1200,1700 [facility] Last Admin: 11/18/18 16:26 Dose: 325 mg Documented by: Furosemide (Lasix) 40 mg IV BIDLX [facility] Last Admin: 11/19/18 09:02 Dose: 40 mg Documented by: Gabapentin (Neurontin) 200 mg PO DAILY [facility] Last Admin: 11/19/18 09:02 Dose: 200 mg Documented by: Gabapentin (Neurontin) 400 mg PO QHS [facility] Last Admin: 11/18/18 21:56 Dose: 400 mg Documented by: Glucagon () 1 mg IM .X1 PRN PRN Reason: Hypoglycemia Hydralazine HCl (Apresoline) 100 mg PO TID [facility] Last Admin: 11/19/18 05:23 Dose: 100 mg Documented by: Sodium Chloride () 250 mls @ 15 mls/hr IV .[id number] PRN PRN Reason: SALINE FLUSH Insulin Human Lispro (Humalog Kwikpen (Bkc)) 0 unit SC ACHS & 3AM [facility]; Protocol Last Admin: 11/19/18 06:39 Dose: 6 units Documented by: Isosorbide Mononitrate (Imdur) 60 mg PO DAILY [facility] Last Admin: 11/19/18 09:02 Dose: 60 mg Documented by: Ondansetron HCl (Zofran) 4 mg IV Q8H PRN PRN PRN Reason: NAUSEA/VOMITING Pantoprazole Sodium (Protonix) 40 mg PO DAILY [facility] Last Admin: 11/19/18 09:02 Dose: 40 mg Documented by: Potassium Chloride (K-Dur) 20 meq PO DAILY [facility] Last Admin: 11/19/18 09:02 Dose: 20 meq Documented by: Senna/Docusate Sodium (Senokot-S, Cora-Colace) 2 tablet PO BID PRN PRN PRN Reason: Constipation Sodium Chloride () 10 - 40 ml IV UD PRN PRN Reason: SALINE FLUSH Last Admin: 11/19/18 05:24 Dose: 10 ml Documented by: Medical Necessity - Tobacco Use Smoking Status: Former smoker Assessment/Plan All Active Problems (Last Updated 11/18/18 @ 14:34 by Sandoval Tong DO) Acute exacerbation of chronic obstructive pulmonary disease (COPD) (Acute) Acute respiratory failure with hypoxia (Acute) (HFpEF) heart failure with preserved ejection fraction (Acute) 1. Acute HFpEF * EF 60% on 06/03/18 * furosemide 40 BID IV * fluid restrict 1500cc/day * Dtr states her weekly weights have been stable. * on Hydralazine and isosorbide (not a candidate for NICOLAS-/ARB given CKD) 2. Possible COPD exacerbation--ruled out * PFT on 10/02 showed moderate restrictive ventilatory impariment with reduction in diffusion * DW Dr. Aldrich: no COPD on PFTs * DC steroid 3. Pulmonary HTN * complicates care * mod-severe on RHC * Type 2 and/or 3 4. HTN * monitor * continue home medications * consider DC amlodipine given LE edema 5. DM2: * continue metformin * SSI 6. Vitamin D deficiency * 25 OH D level on 10/16 was 9.6 * start ergocalciferol 50,000 units weekly for 8 weeks 7. Anemia: * stable * has been iron-deficient in past (last done in July) * will recheck iron studies 8. VTE proph: moderate risk. LMWH. 9. Advanced Care planning: confirmed through patient's daughters--DNRCCA 10. CKD 4 * creatinine worse today. * monitor * may need to DC diuretics 11. Anemia * chronic * worse * transfuse 1 unit. Code Visit Inpatient E&M: 73347 Subs Hosp L2
[2018-11-19] MEDS: Ferrous Sulfate 325 MG Tablet PO ×2 (14:00→17:49)
--- NOTE | 2018-11-19 14:47 | CASEMGMT ---
SW completed new Healthcare POA papers with patient. Copies were made and given to patient along with originals. A copy was also put in patient's chart. Josie GREENWOOD MSW
[2018-11-19 16:45] LABS: Bedside Glucose 319 mg/dL (70-110)
[2018-11-19] MEDS: Gabapentin 400 MG Capsule PO (22:00)
[2018-11-19] MEDS: Doxazosin 4 MG Tablet 8 MG PO (22:00)
[2018-11-19] MEDS: Amitriptyline 100 MG Tablet PO (22:01)
[2018-11-19] MEDS: Atorvastatin Calcium 80 MG Tablet PO (22:02)
[2018-11-19] MEDS: Sodium Chloride 0.65% 1 SPRAY SPRAY.BTL 2 SPRAY NASAL (22:13)
[2018-11-19 22:15] LABS: Bedside Glucose 221 mg/dL (70-110)
[2018-11-20] VITALS (19 sets, daily range): BP systolic 139–159; BP diastolic 66–77; PULSE 74–88; RESP 18–20; TEMP 36.1–36.8; O2SAT 91–96
[2018-11-20] MEDS: Insulin Lispro 100 UNIT/ML INSULN.PEN SC ×5 (03:40→21:49)
[2018-11-20 04:06] LABS: Bedside Glucose 175 mg/dL (70-110)
[2018-11-20 05:31] LABS: Absolute Lymphocyte Count 1.15 X10^3/uL (0.83-4.51); Absolute Neutrophil Count 8.8 X10^3/uL (2.0-7.7); Basophil# 0.02 X10^3/uL; Basophil% 0.2 % (0-1); Eosinophil# 0.03 X10^3/uL; Eosinophils% 0.3 % (0-5); Hematocrit 25.4 % (37-47); Hemoglobin 7.8 g/dL (12.0-15.0); Lymphocyte # 1.15 X10^3/ul (4.0); Lymphocyte % 10.4 % (19-41); Mean Corp Hgb Conc 30.7 g/dL (32-36); Mean Corpuscular Hgb 26.3 pg (27.0-32.0); Mean Corpuscular Volume 85.5 fL (81-99); Mean Platelet Vol. 9.8 fl (6.2-12.0); Monocyte# 0.86 X10^3/uL; Monocyte% 7.8 % (0-10); NRBC Flagged by Analyzer 0 % (0-5); Neutrophil # 8.84 X10^3/uL (2.7-7.7); Neutrophil % 79.9 % (47-70); Platelet Count 294 K/mm3 (150-450); RBC Distribution Width CV 15.6 % (11.6-14.6); RBC Distribution Width SD 48.9 fl (35.1-43.9); Red Blood Count 2.97 M/mm3 (4.2-5.4); White Blood Count 11.1 K/mm3 (4.4-11.0)
[2018-11-20 05:49] LABS: Anion Gap 8 (5-15); BUN 51 mg/dL (7-18); BUN/Creat Ratio 26.2 RATIO (10-20); Calcium,Total 8.7 mg/dL (8.5-10.1); Chloride 101 mmol/L (98-107); Creatinine, Serum 1.95 mg/dL (0.55-1.02); EST Glomerular Filtration Rate 27 mL/min (>60); Est Glom Filt Rate - Afr Amer 32 mL/min (>60); Estimated Creatinine Clearance 20.93 ml/min; Glucose 168 mg/dL (74-106); Potassium 3.5 mmol/L (3.5-5.1); Sodium Level 139 mmol/L (136-145)
[2018-11-20] MEDS: hydrALAZINE 50 MG Tablet 100 MG PO ×3 (06:47→21:49)
[2018-11-20] MEDS: Ipratropium/Albuterol Sulfate 3 ML AMPUL.NEB INHALATION ×4 (06:54→18:57)
[2018-11-20 06:55] LABS: Bedside Glucose 165 mg/dL (70-110)
--- NOTE | 2018-11-20 07:22 | PN_ITS ---
Patient Problems: Active and Suspected Problems (Last Updated 11/18/18 @ 14:34 by Sandoval Tong DO) (HFpEF) heart failure with preserved ejection fraction (Acute) Subjective: The patient was seen and examined at the bedside this morning. Events from the last 24 hours have been reviewed. The patient is currently afebrile, hemodyn amically stable and maintaining appropriate oxygen saturations on 2 L/min via nasal cannula. The patient did receive a transfusion of 1 unit of packed red blood cells yesterday. Hemoglobin was noted to be 7.8 g/dL this morning. Creatinine remains elevated at 1.95. The patient denies any resting shortness of breath or cough. Objective: The patient's most recent lab work, culture data and imaging studies have all been personally reviewed. - Physical Exam General: Alert, Oriented x3, Cooperative, No apparent distress HEENT: Atraumatic, PERRLA, Normocephalic Oral: No Gingival or Mucosal Lesions/ Ulcerations Neck: Supple, No Nodes, Trachea Midline Lungs: No rhonchi, No wheeze, No rales, Diminished Cardiovascular: Regular rate, Regular Rhythm, Normal S1, Normal S2, Murmur Abdomen: Bowel Sounds Present, Soft, Non Tender, Obese Extremities: No clubbing, No cyanosis, Edema Skin: No breakdown Musculoskeletal: No Tenderness to Palpation of Joints or Extremities Lymphatic: No Cervical, Supraclavicular, or Inguinal Adenopathy Neurological: Cranial nerves II-XII grossly intact, Neuro grossly intact Psych/Mental Status: Alert and oriented to time, place, person, mood and affect Vital Signs Temp Pulse Resp BP Pulse Ox 97.0 F L 78 20 H 158/73 H 92 11/20/18 03:30 11/20/18 06:47 11/20/18 03:30 11/20/18 06:46 11/20/18 03:30 Oxygen Flow Rate (L/min) 2 Oxygen Delivery Method CPAP Weight: 253 lb 8.505 oz Body Mass Index (BMI) 45.7 Finger Stick Blood Glucose 155 Intake and Output for Last 24 Hours 11/18/18 11/19/18 11/20/18 23:59 23:59 23:59 Intake Total 240 / 240 2550 / 2550 240 / 240 Output Total 800 / 800 600 / 600 Balance 240 / 240 1750 / 1750 -360 / -360 Laboratory Tests Past 24 Hrs 11/19/18 11/20/18 11/20/18 11:38 05:00 05:00 WBC 11.1 H RBC 2.97 L Hgb 7.8 L Hct 25.4 L MCV 85.5 MCH 26.3 L MCHC 30.7 L RDW Std Deviation 48.9 H RDW Coeff of Becca 15.6 H Plt Count 294 MPV 9.8 Immature Gran % (Auto) 1.400 H Neut % (Auto) 79.9 H Lymph % (Auto) 10.4 L [place] % (Auto) 7.8 Eos % (Auto) 0.3 Baso % (Auto) 0.2 Absolute Neuts (auto) 8.8 H Absolute Lymphs (auto) 1.15 Nucleated RBC % 0 Sodium 139 Potassium 3.5 Chloride 101 Carbon Dioxide 30.0 Anion Gap 8 BUN 51 H Creatinine 1.95 H Estim Creat Clear Calc 20.93 Est GFR (MDRD) Af Amer 32 L Est GFR (MDRD) Non-Af 27 L BUN/Creatinine Ratio 26.2 H Glucose 168 H Calcium 8.7 Blood Type A NEGATIVE Antibody Screen NEGATIVE Crossmatch See Detail POC Glucose 11/20/18 11/20/18 11/19/18 06:49 03:39 22:06 POC Glucose 165 H 175 H 221 H 11/19/18 11/19/18 16:41 11:10 POC Glucose 319 H 354 H Clinical Impression(s) from Imaging Studies Chest X-Ray 11/18/18 10:08 IMPRESSION: Findings in keeping with a mild degree of CHF. Electronically Signed: Peter Bahena, at 10:46 EDT , Service support , Abdomen/Pelvis CT 11/18/18 10:56 IMPRESSION: Small amount of ascites. Sigmoid diverticulosis. Small bilateral effusions with bibasilar atelectasis and basilar scarring. Electronically Signed: Peter Bahena, at 11:37 EDT , Service support , Medical Necessity - Tobacco Use Smoking Status: Former smoker Assessment/Plan All Active Problems (Last Updated 11/18/18 @ 14:34 by Sandoval Tong DO) Acute exacerbation of chronic obstructive pulmonary disease (COPD) (Acute) Acute respiratory failure with hypoxia (Acute) (HFpEF) heart failure with preserved ejection fraction (Acute) RECOMMENDATIONS: 1. May wish to consider de-escalation and diuretic regimen, given worsening renal insufficiency. 2. Continue BiPAP therapy with naps and nightly. 3. Encourage incentive spirometer use and mobilize patient as tolerated. 4. Perform walking oximetry study prior to consideration for discharge from the hospital. 5. The patient should follow-up in the pulmonary medicine clinic within 2 weeks of discharge. IMPRESSIONS: 1. Acute hypoxic respiratory insufficiency secondary to acute on chronic diastolic CHF Given the patient's rapid response to the use of diuretics and noninvasive positive pressure ventilatory support, it is highly likely that her respiratory insufficiency was secondary to decompensated heart failure. At this time, however, the patient has developed worsening renal insufficiency in light of aggressive diuresis. I would strongly recommend de-escalation in her diuretic regimen. Continue nocturnal BiPAP therapy per home regimen. Continue to wean supplemental oxygen as tolerated and encourage incentive spirometer use. The patient's most recent pulmonary function studies showed no evidence of COPD. The patient in fact has underlying restrictive lung disease. Her shortness of breath may also be compounded by the fact that she is anemic. In the absence of acute coronary syndrome, I do not feel that the patient needs to receive any additional blood products at this time. 2. Type II pulmonary hypertension The patient has known pulmonary hypertension based upon right heart catheterization performed in the past. Acute hypoxemia would exacerbate patient's underlying cor pulmonale, which could lead to flash pulmonary edema. We will continue to monitor. Patient appears to be responding well to diuretic therapy. 3. Obstructive sleep apnea Continue nocturnal BiPAP therapy. 4. Hypertension/diabetes mellitus/iron deficiency anemia/advanced age/morbid obesity Complicates care, management, recovery and prognosis. Okay to continue home medications from my perspective. This note was generated with Timeful[employer] software. It may contain incorrect words, spelling, and punctuation that were not noted in checking the note before signing. Code Visit Inpatient E&M: 20145 Subs Hosp L2
--- NOTE | 2018-11-20 10:38 | PN.CARD_ITS ---
<Prema Mixon M - Last Filed: 11/20/18 10:38> Subjectve: Pt sts that she is feeling better this morning. She notes that she feels that her SOB has improved. She denies chest pain, she denies palpitations. Objective: Vital Signs Temp Pulse Resp BP Pulse Ox 97.7 F L 80 20 H 159/75 H 95 11/20/18 07:52 11/20/18 07:52 11/20/18 09:43 11/20/18 07:52 11/20/18 09:43 Oxygen Flow Rate (L/min) 2 Oxygen Delivery Method Nasal Cannula Weight: 253 lb 8.505 oz Body Mass Index (BMI) 45.7 Finger Stick Blood Glucose 155 Intake and Output for Last 24 Hours 11/18/18 11/19/18 11/20/18 23:59 23:59 23:59 Intake Total 240 / 240 2550 / 2550 240 / 240 Output Total 800 / 800 600 / 600 Balance 240 / 240 1750 / 1750 -360 / -360 General: Awake, Alert, Oriented x 3, Obese HEENT: Atraumatic, Normocephalic, PERRL Oral: Moist Mucosa Neck: Supple, No JVD Lungs: Diminished Fabricio Bases Cardiovascular: Regular Rhythm, Normal S1, Normal S2, No Rubs, No Gallops Murmur Murmur: Grade 2/6, Loud, LLSB Vascular: Normal Posterior Tibial Pulses Abdomen: Bowel Sounds Present, Soft, Non Tender Extremities: Trace RLE Edema, Trace LLE Edema Neurological: No Focal Motor or Sensory Deficit, CN II-XII Intact Psych/Mental Status: Appropriate, Normal Affect 11/20/18 05:00: WBC 11.1 H, RBC 2.97 L, Hgb 7.8 L, Hct 25.4 L, MCV 85.5, MCH 26.3 L, MCHC 30.7 L, Plt Count 294, MPV 9.8, Immature Gran % (Auto) 1.400 H, Neut % (Auto) 79.9 H, Lymph % (Auto) 10.4 L, [place] % (Auto) 7.8, Eos % (Auto) 0.3, Baso % (Auto) 0.2, Absolute Neuts (auto) 8.8 H, Nucleated RBC % 0 11/20/18 05:00: Sodium 139, Potassium 3.5, Chloride 101, Carbon Dioxide 30.0, Anion Gap 8, BUN 51 H, Creatinine 1.95 H, Est GFR (MDRD) Af Amer 32 L, Est GFR (MDRD) Non-Af 27 L, BUN/Creatinine Ratio 26.2 H, Glucose 168 H, Calcium 8.7 Rhythm: EKG: ECHO: Stress Test: Cardiac Cath: PCI: CT Surgery: Holter monitor: EPS: PPM: CXR: Chest CT Scan: Medical Necessity - Tobacco Use Smoking Status: Former smoker Assessment/Plan 1. Acute diastolic congestive heart failure: Patient's BNP was elevated. She is currently on IV Lasix. Her weights have been stable when compared to previous office visit. Do feel that patient's anemia could be contributing to patient's congestive heart failure. PT did receive one unit of blood yesterday. Hgb did improve slightly, but feel that pt would benefit from a Hgb of ideal closer to 10. Would like for Hgb to be at least 8. This would help with patients oxygen carrying capacity. Patient is not on an NICOLAS or an ARB with her chronic kidney disease. 2. Tricuspid insufficiency: Patient does have a newly noted murmur that was not noted at her last office visit. This could be related to her congestive heart failure and her anemia. Recommend continuation of diuretics. Recommend blood transfusion as mentioned above. If does not improve will consider repeating an echocardiogram. 3. Pulmonary hypertension: Patient does have moderate to her pulmonary hypertension based on a previous right heart cath. She is being followed by pulmonary. She is also continue to use her oxygen and CPAP. Recommend continuation of her diuretics. 4. Hypertension: Pressures appear to be controlled. She will continue with her current home medications. 5. Coronary artery disease: Patient does have a history of bypass surgery. Patient is not on any rate limiting medication due to her history of bradycardia in the past. She is not on an Aspirin due to her anemia. She will remain in high dose statin. Currently she is not having any chest discomfort. Her troponin was negative. We will continue to monitor. 6. Palpitations: this is newer for patient, will monitor with telemetry for now. No arrhythmias have been noted on telemetry. She is not on a beta cha d/t her history of bradycardia in the past. 6. COPD: Patient is being followed by pulmonary. 7. Anemia: Patient's hemoglobin has decreased since July of this year. Hemoglobin upon admission was 7.5. After 1 unit of PRBC it did improve slightly but would recommend another another transfusion. 8. Chronic renal insufficiency: We will need to continue to monitor renal function closely as she is receiving diuretics. This case has been discussed with Dr. Clarke. <Alex Clarke - Last Filed: 11/20/18 18:47> Objective: Vital Signs Temp Pulse Resp BP Pulse Ox 97.5 F L 77 18 141/77 H 94 11/20/18 17:10 11/20/18 17:10 11/20/18 17:10 11/20/18 17:10 11/20/18 17:10 Oxygen Flow Rate (L/min) 2 Oxygen Delivery Method Nasal Cannula Weight: 253 lb 8.505 oz Body Mass Index (BMI) 45.7 Finger Stick Blood Glucose 155 Intake and Output for Last 24 Hours 11/18/18 11/19/18 11/20/18 23:59 23:59 23:59 Intake Total 240 / 240 2550 / 2550 950 / 950 Output Total 800 / 800 2100 / 2100 Balance 240 / 240 1750 / 1750 -1150 / -1150 11/20/18 05:00: WBC 11.1 H, RBC 2.97 L, Hgb 7.8 L, Hct 25.4 L, MCV 85.5, MCH 26.3 L, MCHC 30.7 L, Plt Count 294, MPV 9.8, Immature Gran % (Auto) 1.400 H, Neut % (Auto) 79.9 H, Lymph % (Auto) 10.4 L, [place] % (Auto) 7.8, Eos % (Auto) 0.3, Baso % (Auto) 0.2, Absolute Neuts (auto) 8.8 H, Nucleated RBC % 0 11/20/18 05:00: Sodium 139, Potassium 3.5, Chloride 101, Carbon Dioxide 30.0, Anion Gap 8, BUN 51 H, Creatinine 1.95 H, Est GFR (MDRD) Af Amer 32 L, Est GFR (MDRD) Non-Af 27 L, BUN/Creatinine Ratio 26.2 H, Glucose 168 H, Calcium 8.7 11/20/18 05:00: Iron 29 L Rhythm: EKG: ECHO: Stress Test: Cardiac Cath: PCI: CT Surgery: Holter monitor: EPS: PPM: CXR: Chest CT Scan: Assessment/Plan Addendum: Date: 11-20-18 The patient was independently interviewed and examined. The patient states that overall she has felt better with her shortness of breath/dyspnea. She denies ongoing chest discomfort. She admits she has not had any significant out of bed ambulation other than to the restroom and back. Her examination demonstrates that her vital signs have remained stable. Her lungs do not appear to demonstrate as much inspiratory expiratory wheezing as she has had. Her cardiovascular exam demonstrates a regular rhythm at this time with a normal S1-S2 with continued cardiac murmur. Her laboratory studies despite PRBCs represent continued decreased hemoglobin levels. Her creatinine level remains elevated. Her cardiac rhythm has remained sinus rhythm. At the present time she has multiple cardiopulmonary issues superimposed upon her non-cardiopulmonary issues as previously described. From a cardiac standpoint she did receive PRBCs and attempt to increase her hemoglobin level and assist with her oxygen carrying capacity. However her hemoglobin level did not significantly increase. Consideration has been given 2 additional PRBCs. A discussion was held with Dr. Tong. He requested holding on additional PRBCs until the patient underwent further hematologic evaluation and iron supplementation. Thus at the present time the patient will not receive additional PRBCs. She will continue her conservative medical therapy with diuretic therapy. She will need follow-up with hematology to further assess her anemia and make additional recommendations/care. At the moment there are no other additional noninvasive or invasive cardiovascu lar studies scheduled for this patient. The above was discussed and reviewed with the patient, her son, and Prema Mixon PA-C. This note was generated using a voice recognition system and there may be incorrect words, spelling or punctuation that were not noted when reviewing the office note prior to saving.
[2018-11-20] MEDS: Isosorbide Mononitrate 60 MG Tablet PO (11:11)
[2018-11-20] MEDS: Aspirin E.C. 81 MG Tablet PO (11:11)
[2018-11-20] MEDS: Carvedilol 6.25 MG Tablet PO ×2 (11:11→21:49)
[2018-11-20] MEDS: Enoxaparin 30 MG/0.3 ML Syringe SC (11:12)
[2018-11-20] MEDS: amLODIPine 10 MG Tablet PO (11:13)
[2018-11-20] MEDS: Gabapentin 100 MG Capsule 200 MG PO (11:13)
[2018-11-20] MEDS: Pantoprazole Sodium 40 MG Tablet PO (11:14)
[2018-11-20] MEDS: Furosemide 40 MG/4 ML Vial IV ×2 (11:48→17:14)
[2018-11-20] MEDS: Ferrous Sulfate 325 MG Tablet PO ×2 (11:53→17:12)
[2018-11-20 12:00] LABS: Bedside Glucose 212 mg/dL (70-110)
--- NOTE | 2018-11-20 13:03 | PCM.PN.HOSP ---
Patient Problems: Active and Suspected Problems (Last Updated 11/18/18 @ 14:34 by Sandoval Tong DO) (HFpEF) heart failure with preserved ejection fraction (Acute) Subjective: Feeling better. Breathing better. Vitals/I&O's: Vital Signs Temp Pulse Resp BP Pulse Ox 36.5 C L 88 20 H 159/75 H 91 11/20/18 07:52 11/20/18 10:38 11/20/18 10:38 11/20/18 07:52 11/20/18 10:38 Oxygen Flow Rate (L/min) 2 Oxygen Delivery Method Nasal Cannula Weight: 115 kg Body Mass Index (BMI) 45.7 Finger Stick Blood Glucose 155 Intake and Output for Last 24 Hours 11/18/18 11/19/18 11/20/18 23:59 23:59 23:59 Intake Total 240 / 240 2550 / 2550 550 / 550 Output Total 800 / 800 1300 / 1300 Balance 240 / 240 1750 / 1750 -750 / -750 General: Alert, No apparent distress HEENT: Atraumatic, Normocephalic Oral: Moist Mucosa, No Gingival or Mucosal Lesions/ Ulcerations Neck: No Nodes, Trachea Midline Lungs: Diminished, - - bibasilar crackles Cardiovascular: Regular rate, Regular Rhythm Abdomen: Bowel Sounds Present, Soft, Non Tender, Non-Distended, Obese Extremities: No Calf Tenderness, Edema Skin: No rashes, No breakdown Musculoskeletal: No Tenderness to Palpation of Joints or Extremities, No Muscle Wasting Neurological: Sensory exam intact to light touch and pain, Coordination normal Psych/Mental Status: Normal Affect, Appropriate Laboratory Results 11/19/18 11:38: Blood Type A NEGATIVE, Antibody Screen NEGATIVE, Crossmatch See Detail 11/19/18 11:38: Crossmatch See Detail 11/19/18 16:41: POC Glucose 319 H 11/19/18 22:06: POC Glucose 221 H 11/20/18 03:39: POC Glucose 175 H 11/20/18 05:00: WBC 11.1 H, RBC 2.97 L, Hgb 7.8 L, Hct 25.4 L, MCV 85.5, MCH 26.3 L, MCHC 30.7 L, RDW Std Deviation 48.9 H, RDW Coeff of Becca 15.6 H, Plt Count 294, MPV 9.8, Immature Gran % (Auto) 1.400 H, Neut % (Auto) 79.9 H, Lymph % (Auto) 10.4 L, [place] % (Auto) 7.8, Eos % (Auto) 0.3, Baso % (Auto) 0.2, Absolute Neuts (auto) 8.8 H, Absolute Lymphs (auto) 1.15, Nucleated RBC % 0 11/20/18 05:00: Sodium 139, Potassium 3.5, Chloride 101, Carbon Dioxide 30.0, Anion Gap 8, BUN 51 H, Creatinine 1.95 H, Estim Creat Clear Calc 20.93, Est GFR (MDRD) Af Amer 32 L, Est GFR (MDRD) Non-Af 27 L, BUN/Creatinine Ratio 26.2 H, Glucose 168 H, Calcium 8.7 11/20/18 06:49: POC Glucose 165 H 11/20/18 11:52: POC Glucose 212 H Current Medications Acetaminophen (Tylenol) 650 mg PO Q6H PRN PRN PRN Reason: Mild pain 1-3/Temp > 100.7 F Albuterol Sulfate (Ventolin Aerosols) 2.5 mg INHALATION Q2H PRN PRN PRN Reason: SHORTNESS OF BREATH Albuterol/Ipratropium (Duoneb) 3 ml INHALATION Q4H.RT [facility] Last Admin: 11/20/18 10:38 Dose: 3 ml Documented by: Amitriptyline HCl (Elavil) 100 mg PO QHS [facility] Last Admin: 11/19/18 22:01 Dose: 100 mg Documented by: Amlodipine Besylate (Norvasc) 10 mg PO DAILY [facility] Last Admin: 11/20/18 11:13 Dose: 10 mg Documented by: Aspirin (Ecotrin) 81 mg PO DAILY [facility] Last Admin: 11/20/18 11:11 Dose: 81 mg Documented by: Atorvastatin Calcium (Lipitor) 80 mg PO QHS [facility] Last Admin: 11/19/18 22:02 Dose: 80 mg Documented by: Carvedilol (Coreg) 6.25 mg PO BID [facility] Last Admin: 11/20/18 11:11 Dose: 6.25 mg Documented by: Dextrose (D50w Syringe) 0 gm IV X1 PRN; Protocol PRN Reason: Hypoglycemia Doxazosin Mesylate (Cardura) 8 mg PO QHS [facility] Last Admin: 11/19/18 22:00 Dose: 8 mg Documented by: Enoxaparin Sodium (Lovenox) 30 mg SC DAILY@1000 [facility] Last Admin: 11/20/18 11:12 Dose: 30 mg Documented by: Ergocalciferol (Vitamin D) 50,000 unit PO Th [facility] Ferrous Sulfate (Ferrous Sulfate) 325 mg PO 1200,1700 [facility] Last Admin: 11/20/18 11:53 Dose: 325 mg Documented by: Furosemide (Lasix) 40 mg IV BIDLX [facility] Last Admin: 11/20/18 11:48 Dose: 40 mg Documented by: Gabapentin (Neurontin) 200 mg PO DAILY [facility] Last Admin: 11/20/18 11:13 Dose: 200 mg Documented by: Gabapentin (Neurontin) 400 mg PO QHS [facility] Last Admin: 11/19/18 22:00 Dose: 400 mg Documented by: Glucagon () 1 mg IM .X1 PRN PRN Reason: Hypoglycemia Hydralazine HCl (Apresoline) 100 mg PO TID [facility] Last Admin: 11/20/18 06:47 Dose: 100 mg Documented by: Insulin Human Lispro (Humalog Kwikpen (Bkc)) 0 unit SC ACHS & 3AM [facility]; Protocol Last Admin: 11/20/18 11:53 Dose: 4 units Documented by: Isosorbide Mononitrate (Imdur) 60 mg PO DAILY [facility] Last Admin: 11/20/18 11:11 Dose: 60 mg Documented by: Ondansetron HCl (Zofran) 4 mg IV Q8H PRN PRN PRN Reason: NAUSEA/VOMITING Pantoprazole Sodium (Protonix) 40 mg PO DAILY [facility] Last Admin: 11/20/18 11:14 Dose: 40 mg Documented by: Potassium Chloride (K-Dur) 20 meq PO DAILY [facility] Last Admin: 11/20/18 11:11 Dose: 20 meq Documented by: Senna/Docusate Sodium (Senokot-S, Cora-Colace) 2 tablet PO BID PRN PRN PRN Reason: Constipation Sodium Chloride () 10 - 40 ml IV UD PRN PRN Reason: SALINE FLUSH Last Admin: 11/19/18 18:50 Dose: 10 ml Documented by: Sodium Chloride ([place] Nasal [place]) 2 spray NASAL TID PRN PRN PRN Reason: NASAL DRYNESS Last Admin: 11/19/18 22:13 Dose: 2 spray Documented by: Medical Necessity - Tobacco Use Smoking Status: Former smoker Assessment/Plan All Active Problems (Last Updated 11/18/18 @ 14:34 by Sandoval Tong DO) Acute exacerbation of chronic obstructive pulmonary disease (COPD) (Acute) Acute respiratory failure with hypoxia (Acute) (HFpEF) heart failure with preserved ejection fraction (Acute) 1. Acute HFpEF EF 60% on 06/03/18 furosemide 40 BID IV fluid restrict 1500cc/day Dtr states her weekly weights have been stable. on Hydralazine and isosorbide (not a candidate for NICOLAS-/ARB given CKD) 2. Possible COPD exacerbation--ruled out PFT on 10/02 showed moderate restrictive ventilatory impairment with reduction in diffusion DW Dr. Aldrich: no COPD on PFTs DC steroid 3. Pulmonary HTN complicates care mod-severe on RHC Type 2 and/or 3 4. HTN monitor continue home medications consider DC amlodipine given LE edema 5. DM2: continue metformin SSI 6. Vitamin D deficiency 25 OH D level on 10/16 was 9.6 start ergocalciferol 50,000 units weekly for 8 weeks 7. Anemia: improved slightly with 1 unit PRBC has been iron-deficient in past (last done in July) will recheck iron check hemoccult hold off on additional transfusions at this time. Discussed with Prema Mixon and Dr. Clarke. Informed patient we will be hold off on transfusion today. 8. VTE proph: moderate risk. LMWH. 9. Advanced Care planning: confirmed through patient's daughters--DNRCCA 10. CKD 4 stable monitor 11. ELAINE: continue nocturnal BiPAP DW patient's daughter at bedside. Code Visit Inpatient E&M: 70543 Subs Hosp L3
[2018-11-20 13:46] LABS: Iron 29 ug/dL (50-170)
[2018-11-20 17:20] LABS: Bedside Glucose 177 mg/dL (70-110)
[2018-11-20] MEDS: Doxazosin 4 MG Tablet 8 MG PO (21:49)
[2018-11-20] MEDS: Gabapentin 400 MG Capsule PO (21:49)
[2018-11-20] MEDS: Atorvastatin Calcium 80 MG Tablet PO (21:49)
[2018-11-20] MEDS: Amitriptyline 100 MG Tablet PO (21:49)
[2018-11-20 22:30] LABS: Bedside Glucose 193 mg/dL (70-110)
--- NOTE | 2018-11-20 23:58 | CPS ---
pt on own bipap machine with 3L o2 bled in
[2018-11-21] VITALS (20 sets, daily range): BP systolic 155–176; BP diastolic 58–76; PULSE 74–91; RESP 17–20; TEMP 36.7–37.1; O2SAT 92–97
[2018-11-21 03:56] LABS: Bedside Glucose 121 mg/dL (70-110)
[2018-11-21 06:34] LABS: Hematocrit 27.1 % (37-47); Hemoglobin 8.3 g/dL (12.0-15.0)
[2018-11-21 06:47] LABS: Anion Gap 7 (5-15); BUN 49 mg/dL (7-18); BUN/Creat Ratio 28.2 RATIO (10-20); Calcium,Total 8.7 mg/dL (8.5-10.1); Chloride 104 mmol/L (98-107); Creatinine, Serum 1.74 mg/dL (0.55-1.02); EST Glomerular Filtration Rate 31 mL/min (>60); Est Glom Filt Rate - Afr Amer 37 mL/min (>60); Estimated Creatinine Clearance 23.45 ml/min; Glucose 110 mg/dL (74-106); Potassium 3.3 mmol/L (3.5-5.1); Sodium Level 141 mmol/L (136-145)
[2018-11-21] MEDS: hydrALAZINE 50 MG Tablet 100 MG PO ×3 (06:56→21:59)
[2018-11-21] MEDS: Ipratropium/Albuterol Sulfate 3 ML AMPUL.NEB INHALATION ×5 (07:04→22:53)
[2018-11-21 07:05] LABS: Bedside Glucose 125 mg/dL (70-110)
[2018-11-21] MEDS: Senna/Docusate Sodium 1 Tablet 2 TABLET PO (07:58)
[2018-11-21] MEDS: Pantoprazole Sodium 40 MG Tablet PO (09:09)
[2018-11-21] MEDS: Carvedilol 6.25 MG Tablet PO ×2 (09:09→21:59)
[2018-11-21] MEDS: Enoxaparin 30 MG/0.3 ML Syringe SC (09:09)
[2018-11-21] MEDS: Isosorbide Mononitrate 60 MG Tablet PO (09:10)
[2018-11-21] MEDS: amLODIPine 10 MG Tablet PO (09:10)
[2018-11-21] MEDS: Gabapentin 100 MG Capsule 200 MG PO ×2 (09:10→22:11)
[2018-11-21] MEDS: 0.9% NaCl Peripheral Flush Adult/Peds IV (09:11)
[2018-11-21] MEDS: Furosemide 40 MG/4 ML Vial IV (09:11)
[2018-11-21] MEDS: Aspirin E.C. 81 MG Tablet PO (09:11)
--- NOTE | 2018-11-21 10:10 | PN_ITS ---
Patient Problems: Active and Suspected Problems (Last Updated 11/18/18 @ 14:34 by Sandoval Tong DO) (HFpEF) heart failure with preserved ejection fraction (Acute) Subjective: The patient was seen and examined at the bedside this morning. Events from the last 24 hours have been reviewed. The patient is currently afebrile, hemodyn amically stable and maintaining appropriate oxygen saturations on 2 L/min via nasal cannula. Hemoglobin is stable at 8.3 g/dL. Creatinine has improved this morning. Objective: The patient's most recent lab work, culture data and imaging studies have all been personally reviewed. - Physical Exam General: Alert, Cooperative, No apparent distress HEENT: Atraumatic, PERRLA, Normocephalic Oral: No Gingival or Mucosal Lesions/ Ulcerations Neck: Supple, No Nodes, Trachea Midline Lungs: No rhonchi, No wheeze, No rales, Diminished Cardiovascular: Regular rate, Regular Rhythm, Normal S1, Normal S2, Murmur Abdomen: Bowel Sounds Present, Soft, Non Tender, Obese Extremities: No clubbing, No cyanosis, Edema Skin: - - No significant change from previous Musculoskeletal: No Tenderness to Palpation of Joints or Extremities, No Muscle Wasting Lymphatic: No Cervical, Supraclavicular, or Inguinal Adenopathy Neurological: Cranial nerves II-XII grossly intact, Neuro grossly intact Psych/Mental Status: Normal Affect, Appropriate Vital Signs Temp Pulse Resp BP Pulse Ox 98.1 F 90 18 167/66 H 94 11/21/18 09:06 11/21/18 09:06 11/21/18 09:06 11/21/18 09:06 11/21/18 09:06 Oxygen Flow Rate (L/min) 2 Oxygen Delivery Method Nasal Cannula Weight: 253 lb 8.505 oz Body Mass Index (BMI) 45.7 Finger Stick Blood Glucose 155 Intake and Output for Last 24 Hours 11/19/18 11/20/18 11/21/18 23:59 23:59 23:59 Intake Total 2550 / 2550 1060 / 1060 240 / 240 Output Total 800 / 800 2100 / 2100 700 / 700 Balance 1750 / 1750 -1040 / -1040 -460 / -460 Laboratory Tests Past 24 Hrs 11/19/18 11/20/18 11/21/18 11:38 05:00 06:05 Hgb 8.3 L Hct 27.1 L Sodium Potassium Chloride Carbon Dioxide Anion Gap BUN Creatinine Estim Creat Clear Calc Est GFR (MDRD) Af Amer Est GFR (MDRD) Non-Af BUN/Creatinine Ratio Glucose Calcium Iron 29 L Crossmatch See Detail 11/21/18 06:05 Hgb Hct Sodium 141 Potassium 3.3 L Chloride 104 Carbon Dioxide 30.0 Anion Gap 7 BUN 49 H Creatinine 1.74 H Estim Creat Clear Calc 23.45 Est GFR (MDRD) Af Amer 37 L Est GFR (MDRD) Non-Af 31 L BUN/Creatinine Ratio 28.2 H Glucose 110 H Calcium 8.7 Iron Crossmatch POC Glucose 11/21/18 11/21/18 11/20/18 06:55 03:51 21:48 POC Glucose 125 H 121 H 193 H 11/20/18 11/20/18 17:06 11:52 POC Glucose 177 H 212 H Clinical Impression(s) from Imaging Studies Chest X-Ray 11/18/18 10:08 IMPRESSION: Findings in keeping with a mild degree of CHF. Electronically Signed: Peter Bahena, at 10:46 EDT , Service support , Abdomen/Pelvis CT 11/18/18 10:56 IMPRESSION: Small amount of ascites. Sigmoid diverticulosis. Small bilateral effusions with bibasilar atelectasis and basilar scarring. Electronically Signed: Peter Bahena, at 11:37 EDT , Service support , Medical Necessity - Tobacco Use Smoking Status: Former smoker Assessment/Plan All Active Problems (Last Updated 11/18/18 @ 14:34 by Sandoval Tong DO) Acute exacerbation of chronic obstructive pulmonary disease (COPD) (Acute) Acute respiratory failure with hypoxia (Acute) (HFpEF) heart failure with preserved ejection fraction (Acute) RECOMMENDATIONS: 1. Continue diuretic therapy. 2. Continue BiPAP therapy with naps and nightly. 3. Encourage incentive spirometer use and mobilize patient as tolerated. 4. Perform walking oximetry study prior to consideration for discharge from the hospital. 5. The patient should follow-up in the pulmonary medicine clinic within 2 weeks of discharge. IMPRESSIONS: 1. Acute hypoxic respiratory insufficiency secondary to acute on chronic diastolic CHF Given the patient's rapid response to the use of diuretics and noninvasive positive pressure ventilatory support, it is highly likely that her respiratory insufficiency was secondary to decompensated heart failure. Continue nocturnal BiPAP therapy per home regimen. Continue to wean supplemental oxygen as tolerated and encourage incentive spirometer use. Continue diuretic therapy. The patient's most recent pulmonary function studies showed no evidence of COPD. The patient in fact has underlying restrictive lung disease. Her shortness of breath may also be compounded by the fact that she is anemic. In the absence of acute coronary syndrome, I do not feel that the patient needs to receive any additional blood products at this time. 2. Type II pulmonary hypertension The patient has known pulmonary hypertension based upon right heart catheterization performed in the past. Acute hypoxemia would exacerbate patient's underlying cor pulmonale, which could lead to flash pulmonary edema. We will continue to monitor. Patient appears to be responding well to diuretic therapy. 3. Obstructive sleep apnea Continue nocturnal BiPAP therapy. 4. Hypertension/diabetes mellitus/iron deficiency anemia/advanced age/morbid obesity Complicates care, management, recovery and prognosis. Okay to continue home medications from my perspective. This note was generated with [employer] dictation software. It may contain incorrect words, spelling, and punctuation that were not noted in checking the note before signing. Code Visit Inpatient E&M: 95513 Subs Hosp L2
[2018-11-21] MEDS: Ferrous Sulfate 325 MG Tablet PO ×2 (11:11→16:36)
[2018-11-21] MEDS: Insulin Lispro 100 UNIT/ML INSULN.PEN SC ×3 (11:12→22:02)
[2018-11-21 11:20] LABS: Bedside Glucose 163 mg/dL (70-110)
--- NOTE | 2018-11-21 13:47 | PN_ITS ---
Patient Problems: Active and Suspected Problems (Last Updated 11/18/18 @ 14:34 by Sandoval Tong DO) (HFpEF) heart failure with preserved ejection fraction (Acute) Subjective: Sleepy. No shortness of breath. Vitals/I&O's: Vital Signs Temp Pulse Resp BP Pulse Ox 36.7 C 74 18 155/64 H 94 11/21/18 13:30 11/21/18 13:34 11/21/18 13:30 11/21/18 13:34 11/21/18 13:30 Oxygen Flow Rate (L/min) 2 Oxygen Delivery Method Nasal Cannula Weight: 115 kg Body Mass Index (BMI) 45.7 Finger Stick Blood Glucose 155 Intake and Output for Last 24 Hours 11/19/18 11/20/18 11/21/18 23:59 23:59 23:59 Intake Total 2550 / 2550 1060 / 1060 460 / 460 Output Total 800 / 800 2100 / 2100 700 / 700 Balance 1750 / 1750 -1040 / -1040 -240 / -240 General: Alert, No apparent distress HEENT: Atraumatic, Normocephalic Oral: Moist Mucosa, No Gingival or Mucosal Lesions/ Ulcerations Neck: No Nodes, Thyroid Normal Size and Texture Lungs: Normal air movement, - - bibasilar crackles Cardiovascular: Regular rate, Regular Rhythm, Normal S1, Normal S2, No murmurs Abdomen: Bowel Sounds Present, Soft, Non Tender, Non-Distended Extremities: No Calf Tenderness, Edema Skin: No rashes, No breakdown Neurological: Neuro grossly intact, Sensory exam intact to light touch and pain Psych/Mental Status: Normal Affect, Appropriate Laboratory Results 11/20/18 17:06: POC Glucose 177 H 11/20/18 21:48: POC Glucose 193 H 11/21/18 03:51: POC Glucose 121 H 11/21/18 06:05: Hgb 8.3 L, Hct 27.1 L 11/21/18 06:05: Sodium 141, Potassium 3.3 L, Chloride 104, Carbon Dioxide 30.0, Anion Gap 7, BUN 49 H, Creatinine 1.74 H, Estim Creat Clear Calc 23.45, Est GFR (MDRD) Af Amer 37 L, Est GFR (MDRD) Non-Af 31 L, BUN/Creatinine Ratio 28.2 H, Glucose 110 H, Calcium 8.7 11/21/18 06:55: POC Glucose 125 H 11/21/18 11:10: POC Glucose 163 H Current Medications Acetaminophen (Tylenol) 650 mg PO Q6H PRN PRN PRN Reason: Mild pain 1-3/Temp > 100.7 F Albuterol Sulfate (Ventolin Aerosols) 2.5 mg INHALATION Q2H PRN PRN PRN Reason: SHORTNESS OF BREATH Albuterol/Ipratropium (Duoneb) 3 ml INHALATION Q4H.RT [facility] Last Admin: 11/21/18 11:12 Dose: 3 ml Documented by: Amitriptyline HCl (Elavil) 100 mg PO QHS [facility] Last Admin: 11/20/18 21:49 Dose: 100 mg Documented by: Amlodipine Besylate (Norvasc) 10 mg PO DAILY [facility] Last Admin: 11/21/18 09:10 Dose: 10 mg Documented by: Aspirin (Ecotrin) 81 mg PO DAILY [facility] Last Admin: 11/21/18 09:11 Dose: 81 mg Documented by: Atorvastatin Calcium (Lipitor) 80 mg PO QHS [facility] Last Admin: 11/20/18 21:49 Dose: 80 mg Documented by: Carvedilol (Coreg) 6.25 mg PO BID [facility] Last Admin: 11/21/18 09:09 Dose: 6.25 mg Documented by: Dextrose (D50w Syringe) 0 gm IV X1 PRN; Protocol PRN Reason: Hypoglycemia Doxazosin Mesylate (Cardura) 8 mg PO QHS [facility] Last Admin: 11/20/18 21:49 Dose: 8 mg Documented by: Enoxaparin Sodium (Lovenox) 30 mg SC DAILY@1000 [facility] Last Admin: 11/21/18 09:09 Dose: 30 mg Documented by: Ergocalciferol (Vitamin D) 50,000 unit PO Th [facility] Last Admin: 11/21/18 09:09 Dose: 50,000 unit Documented by: Ferrous Sulfate (Ferrous Sulfate) 325 mg PO 1200,1700 [facility] Last Admin: 11/21/18 11:11 Dose: 325 mg Documented by: Furosemide (Lasix) 80 mg PO BID@1000,1800 [facility] Gabapentin (Neurontin) 200 mg PO DAILY [facility] Last Admin: 11/21/18 09:10 Dose: 200 mg Documented by: Gabapentin (Neurontin) 400 mg PO QHS [facility] Last Admin: 11/20/18 21:49 Dose: 400 mg Documented by: Glucagon () 1 mg IM .X1 PRN PRN Reason: Hypoglycemia Hydralazine HCl (Apresoline) 100 mg PO TID [facility] Last Admin: 11/21/18 13:34 Dose: 100 mg Documented by: Insulin Human Lispro (Humalog Kwikpen (Bkc)) 0 unit SC ACHS & 3AM EPHRAIM; Protocol Last Admin: 11/21/18 11:12 Dose: 2 units Documented by: Isosorbide Mononitrate (Imdur) 60 mg PO DAILY [facility] Last Admin: 11/21/18 09:10 Dose: 60 mg Documented by: Ondansetron HCl (Zofran) 4 mg IV Q8H PRN PRN PRN Reason: NAUSEA/VOMITING Pantoprazole Sodium (Protonix) 40 mg PO DAILY [facility] Last Admin: 11/21/18 09:09 Dose: 40 mg Documented by: Potassium Chloride (K-Dur) 20 meq PO DAILY [facility] Last Admin: 11/21/18 09:09 Dose: 20 meq Documented by: Senna/Docusate Sodium (Senokot-S, Cora-Colace) 2 tablet PO BID PRN PRN PRN Reason: Constipation Last Admin: 11/21/18 07:58 Dose: 2 tablet Documented by: Sodium Chloride () 10 - 40 ml IV UD PRN PRN Reason: SALINE FLUSH Last Admin: 11/21/18 09:11 Dose: 10 ml Documented by: Sodium Chloride (Nicollet Nasal Sewell) 2 spray NASAL TID PRN PRN PRN Reason: NASAL DRYNESS Last Admin: 11/19/18 22:13 Dose: 2 spray Documented by: Medical Necessity - Tobacco Use Smoking Status: Former smoker Assessment/Plan All Active Problems (Last Updated 11/18/18 @ 14:34 by Sandoval Tong DO) Acute exacerbation of chronic obstructive pulmonary disease (COPD) (Acute) Acute respiratory failure with hypoxia (Acute) (HFpEF) heart failure with preserved ejection fraction (Acute) 1. Acute HFpEF * EF 60% on 06/03/18 * furosemide 40 BID IV, changed to PO by cardiology * fluid restrict 1500cc/day * Dtr states her weekly weights have been stable. * on Hydralazine and isosorbide (not a candidate for NICOLAS-/ARB given CKD) 2. Possible COPD exacerbation--ruled out * PFT on 10/02 showed moderate restrictive ventilatory impairment with reduction in diffusion * DW Dr. Aldrich: no COPD on PFTs * DC steroid 3. Pulmonary HTN * complicates care * mod-severe on RHC * Type 2 and/or 3 4. HTN * monitor * continue home medications * consider DC amlodipine given LE edema 5. DM2: * continue metformin * SSI 6. Vitamin D deficiency * 25 OH D level on 10/16 was 9.6 * start ergocalciferol 50,000 units weekly for 8 weeks 7. Anemia, iron-deficient: * improved slightly with 1 unit PRBC * has been iron-deficient in past (last done in July) * will recheck iron * check hemoccult * received 1 dose of iron sucrose yesterday. Was to have had it 11/19 as outpt, and again on 11/26 for total of 2 doses. Will give second dose tomorrow, therefore, she will not need the the 11/26 dose. * Follow up with Dr. Bell 8. VTE proph: moderate risk. LMWH. 9. Advanced Care planning: confirmed through patient's daughters--DNRCCA 10. CKD 4 * stable * monitor 11. ELAINE: continue nocturnal BiPAP Greater than 35 minutes of which greater than 50% of the time was counseling about her heart failure and anemia. Anticipate discharge 11/22, if stable or improving. Code Visit Inpatient E&M: 81187 [facility] Hosp L3
--- NOTE | 2018-11-21 15:59 | PCM.PN.CARD ---
Subjectve: The patient appears to be resting comfortably. She states overall she is breathing better. Objective: Vital Signs Temp Pulse Resp BP Pulse Ox 98.0 F 79 17 155/64 H 94 11/21/18 13:30 11/21/18 15:14 11/21/18 15:14 11/21/18 13:34 11/21/18 13:30 Oxygen Flow Rate (L/min) 2 Oxygen Delivery Method Nasal Cannula Weight: 253 lb 8.505 oz Body Mass Index (BMI) 45.7 Finger Stick Blood Glucose 155 Intake and Output for Last 24 Hours 11/19/18 11/20/18 11/21/18 23:59 23:59 23:59 Intake Total 2550 / 2550 1060 / 1060 460 / 460 Output Total 800 / 800 2100 / 2100 700 / 700 Balance 1750 / 1750 -1040 / -1040 -240 / -240 General: Awake, Alert, Oriented x 3, Cooperative, No Acute Distress HEENT: Atraumatic, Normocephalic, PERRL, EOMI Oral: Moist Mucosa Neck: Supple, Good ROM, No JVD Lungs: - - Scattered rhonchi/scattered wheezing: Compared to previous examination this appears to be improved Cardiovascular: Regular Rhythm, Normal S1, Normal S2 Abdomen: Bowel Sounds Present, Soft, Non Tender Extremities: Trace RLE Edema, Trace LLE Edema Psych/Mental Status: Appropriate 11/21/18 06:05: Hgb 8.3 L, Hct 27.1 L 11/21/18 06:05: Sodium 141, Potassium 3.3 L, Chloride 104, Carbon Dioxide 30.0, Anion Gap 7, BUN 49 H, Creatinine 1.74 H, Est GFR (MDRD) Af Amer 37 L, Est GFR (MDRD) Non-Af 31 L, BUN/Creatinine Ratio 28.2 H, Glucose 110 H, Calcium 8.7 Rhythm: Sinus rhythm Medical Necessity - Tobacco Use Smoking Status: Former smoker Assessment/Plan 1. CAD status post CABG The patient appears to be without any acute symptoms. She will continue risk factor modification medical therapy as deemed appropriate. 2. Valvular heart disease The patient will continue to be followed for her underlying valvular heart disease. At the moment she is continuing conservative medical management. 3. Diastolic mediated CHF acute on chronic The patient does appear to be symptomatically improved with her ongoing medical management. Her diuretics will be altered from IV to oral. She will continue with outpatient follow-up. 4. Hypertension The patient will continue medical management with adjustment as deemed appropriate. 5. COPD The patient does have by PFTs findings of underlying restrictive lung disease and decreased using capacity. She will need continued follow-up by pulmonology. 6. Pulmonary hypertension She does have by previous examination moderate to severe pulmonary hypertension. At the moment she is continuing conservative medical management. She is also being followed by pulmonology. 7. Chronic renal insufficiency The patient does have chronic renal insufficiency. An attempt is being made to avoid medications to adversely interact with her renal function. She continues to be followed by nephrology. 8. Anemia She is anemic. She is receiving therapy for such. Her hemoglobin has increased somewhat since her admission. Overall, from a cardiac standpoint, she will continue conservative medical management. This includes alteration of her diuretic therapy to maintain volume status. She will continue evaluation care by her other physicians for her other multiple medical concerns. The above was discussed and reviewed with the patient and Dr. Tong. This note was generated using a voice recognition system and there may be incorrect words, spelling or punctuation that were not noted when reviewing the office note prior to saving.
[2018-11-21 16:40] LABS: Bedside Glucose 209 mg/dL (70-110)
[2018-11-21] MEDS: Furosemide 80 MG Tablet PO (16:59)
[2018-11-21] MEDS: Doxazosin 4 MG Tablet 8 MG PO (21:59)
[2018-11-21] MEDS: Amitriptyline 100 MG Tablet PO (21:59)
[2018-11-21] MEDS: Atorvastatin Calcium 80 MG Tablet PO (22:00)
[2018-11-21 23:25] LABS: Bedside Glucose 233 mg/dL (70-110)
[2018-11-22] VITALS (13 sets, daily range): BP systolic 139–180; BP diastolic 64–84; PULSE 78–91; RESP 18–20; TEMP 36.7–36.9; O2SAT 94–97
[2018-11-22] MEDS: Insulin Lispro 100 UNIT/ML INSULN.PEN SC ×2 (03:30→12:15)
[2018-11-22 03:41] LABS: Bedside Glucose 157 mg/dL (70-110)
[2018-11-22] MEDS: hydrALAZINE 20 MG/ML Vial 5 MG IV (04:14)
[2018-11-22] MEDS: 0.9% NaCl Peripheral Flush Adult/Peds IV (04:16)
[2018-11-22] MEDS: hydrALAZINE 50 MG Tablet 100 MG PO ×2 (06:18→13:54)
[2018-11-22 06:43] LABS: Absolute Lymphocyte Count 0.86 X10^3/uL (0.83-4.51); Absolute Neutrophil Count 7.2 X10^3/uL (2.0-7.7); Basophil# 0.03 X10^3/uL; Basophil% 0.3 % (0-1); Eosinophil# 0.15 X10^3/uL; Eosinophils% 1.6 % (0-5); Hematocrit 27.5 % (37-47); Hemoglobin 8.3 g/dL (12.0-15.0); Lymphocyte # 0.86 X10^3/ul (4.0); Lymphocyte % 9.4 % (19-41); Mean Corp Hgb Conc 30.2 g/dL (32-36); Mean Corpuscular Volume 86.2 fL (81-99); Mean Platelet Vol. 9.5 fl (6.2-12.0); Monocyte# 0.64 X10^3/uL; NRBC Flagged by Analyzer 0 % (0-5); Neutrophil # 7.15 X10^3/uL (2.7-7.7); Neutrophil % 77.8 % (47-70); Platelet Count 284 K/mm3 (150-450); RBC Distribution Width CV 15.7 % (11.6-14.6); RBC Distribution Width SD 49.2 fl (35.1-43.9); Red Blood Count 3.19 M/mm3 (4.2-5.4); White Blood Count 9.2 K/mm3 (4.4-11.0)
[2018-11-22 06:56] LABS: Bedside Glucose 131 mg/dL (70-110)
[2018-11-22 07:03] LABS: Anion Gap 3 (5-15); BUN 49 mg/dL (7-18); Calcium,Total 8.7 mg/dL (8.5-10.1); Chloride 105 mmol/L (98-107); Creatinine, Serum 1.75 mg/dL (0.55-1.02); EST Glomerular Filtration Rate 30 mL/min (>60); Est Glom Filt Rate - Afr Amer 37 mL/min (>60); Estimated Creatinine Clearance 23.32 ml/min; Glucose 137 mg/dL (74-106); Potassium 3.3 mmol/L (3.5-5.1); Sodium Level 140 mmol/L (136-145)
[2018-11-22] MEDS: amLODIPine 10 MG Tablet PO (08:31)
[2018-11-22] MEDS: Enoxaparin 30 MG/0.3 ML Syringe SC (08:31)
[2018-11-22] MEDS: Furosemide 80 MG Tablet PO (08:32)
[2018-11-22] MEDS: Isosorbide Mononitrate 60 MG Tablet PO (08:32)
[2018-11-22] MEDS: Aspirin E.C. 81 MG Tablet PO (08:32)
[2018-11-22] MEDS: Carvedilol 6.25 MG Tablet PO (08:32)
[2018-11-22] MEDS: Pantoprazole Sodium 40 MG Tablet PO (08:32)
[2018-11-22] MEDS: Gabapentin 100 MG Capsule 200 MG PO (08:43)
[2018-11-22] MEDS: Ipratropium/Albuterol Sulfate 3 ML AMPUL.NEB INHALATION (11:09)
[2018-11-22 11:21] LABS: Bedside Glucose 169 mg/dL (70-110)
[2018-11-22] MEDS: Ferrous Sulfate 325 MG Tablet PO (12:15)
--- NOTE | 2018-11-22 12:57 | DCINST_ITS ---
- Discharge Diagnoses Current Active Problems: Current Active and Chronic Problems (Last Updated 11/18/18 @ 14:34 by Sandoval Tong DO) (HFpEF) heart failure with preserved ejection fraction (Acute) You will use the following diet at home:: Calorie/Carbohydrate Controlled (specify 1200, 1400, etc) - 1800, Cardiac Your food should be the consistency of: Regular Your liquids should be the consistency of: Regular/Thin Discharge Activity: Return to Normal Activity Call your doctor if you observe: Fever of 101 or Higher, Shortness of breath, Chest pain Instructions: Taking Medication to Control Heart Failure, What Is Heart Failure?, Heart Failure: Tracking Your Weight, Heart Failure: Being Active, Taking Medications for Your Heart, Coping with Heart Failure, Heart Failure: Making Changes to Your Diet Allergies/Adverse Reactions: Allergies Penicillins Allergy (Verified 11/18/18 09:25) Hives adhesive tape Adverse Reaction (Verified 11/18/18 09:25) Other Medications to take at Discharge Amitriptyline HCl [Elavil] 100 mg PO QHS 04/09/13 metFORMIN (XR) [Glucophage Xr] 500 mg PO DAILY 12/25/16 Aspirin E.C. [Ecotrin] 81 mg PO DAILY 10/25/17 Atorvastatin Calcium 80 mg PO DAILY 10/25/17 Gabapentin [Neurontin] 200 mg PO .COMPLEX 10/25/17 Amlodipine Besylate 10 mg PO DAILY 06/01/18 Ferrous Sulfate 325 mg PO 1200,1700 #120 tab 07/09/18 Potassium Chloride 20 meq PO DAILY #60 tab.er.prt 07/09/18 carvedilol 6.25 mg tablet 6.25 mg PO BID #60 tab 07/31/18 isosorbide mononitrate ER 60 mg tablet,extended release 24 hr 60 mg PO DAILY #60 tab 07/31/18 Albuterol Sulfate 1.25 mg IH 4X/DAY 08/20/18 Doxazosin Mesylate 8 mg PO QHS 08/20/18 Hydralazine HCl 100 mg PO TID 08/20/18 Omeprazole 40 mg PO DAILY 08/20/18 budesonide-formoterol HFA 160 mcg-4.5 mcg/actuation aerosol inhaler 2 puff INHALATION BID #1 ea 09/25/18 tiotropium 2.5 mcg-olodaterol 2.5 mcg/actuation mist for inhalation 2 puff INHALATION DAILY #4 g 10/28/18 Furosemide [Lasix] 80 mg PO BID@1000,1800 #60 tab 11/22/18 The following prescriptions were given: Furosemide [Lasix] 80 mg PO BID@1000,1800 #60 tab Transmission Status: Pending to [id number] Orders to be completed after discharge: Basic Metabolic Profile (BMP) Time Frame: 1 Week, Facility: [facility], Location: Laboratory CBC W/Diff, Automated Time Frame: 1 Week, Facility: [facility], Location: Laboratory Primary Care Physician: Levi Laird MD [Primary Care Provider] - Within 1 Week Test Results: Test results from this visit will be discussed in further detail at your follow- up appointment, if applicable. Please Follow Up With: Alex Clarke MD When: 01/01/19. Call to see if can be seen sooner. Please Follow Up With: Lia Meléndez NP-C When: 01/13/19 Please Follow Up With: Maria Del Rosario Bell MD When: 1-2 weeks Proposed Discharge Date: 11/22/18
--- NOTE | 2018-11-22 13:01 | DS.PCM_ITS ---
Discharge Date and Diagnosis - Problem List Patient Problems: Active and Suspected Problems (Last Updated 11/18/18 @ 14:34 by Sandoval Tong DO) (HFpEF) heart failure with preserved ejection fraction (Acute) Date of Admission: 11/18/18 Date of Discharge: 11/22/18 - Primary Discharge Diagnosis Active and Suspected Problems (Last Updated 11/18/18 @ 14:34 by Sandoval Tong DO) (HFpEF) heart failure with preserved ejection fraction (Acute) 1. Acute HFpEF * EF 60% on 06/03/18 * furosemide 40 BID IV, changed to 80 BID PO by cardiology * fluid restrict 1500cc/day * Dtr states her weekly weights have been stable. * on Hydralazine and isosorbide (not a candidate for NICOLAS-/ARB given CKD) 2. Possible COPD exacerbation--ruled out * PFT on 10/02 showed moderate restrictive ventilatory impairment with reduction in diffusion * DW Dr. Aldrich: no COPD on PFTs * DC steroid 3. Pulmonary HTN * complicates care * mod-severe on RHC * Type 2 and/or 3 4. HTN * monitor * continue home medications * consider DC amlodipine given LE edema 5. DM2: * continue metformin * SSI 6. Vitamin D deficiency * 25 OH D level on 10/16 was 9.6 * start ergocalciferol 50,000 units weekly for 8 weeks 7. Anemia, iron-deficient: * improved slightly with 1 unit PRBC * has been iron-deficient in past (last done in July) * will recheck iron * check hemoccult * received 1 dose of iron sucrose yesterday. Was to have had it 11/19 as outpt, and again on 11/26 for total of 2 doses. Will give second dose tomorrow, therefore, she will not need the the 11/26 dose. * Follow up with Dr. Bell 8. CKD 4 * stable * monitor 9. ELAINE: continue nocturnal BiPAP - Secondary Discharge Diagnosis Chronic Problems (Last Updated 11/18/18 @ 14:34 by Sandoval Tong DO) Tricuspid insufficiency (Chronic) Mitral insufficiency (Chronic) ELAINE (obstructive sleep apnea) (Chronic) CKD (chronic kidney disease), stage III (Chronic) Atherosclerotic heart disease of [place] coronary artery without angina pectoris (Chronic) NATHAN to the LAD, and SVG to the diagonal branch, and SVG to the LCx system, and an SVG to the RCA on 04/16/2013 at [facility] with Dr. 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 Fields Dyslipidemia (Chronic) COPD (chronic obstructive pulmonary disease) (Chronic) Diabetes mellitus type 2 in obese (Chronic) Hospital Course and Treatment Imaging Results: Clinical Impression(s) from Imaging Studies Chest X-Ray 11/18/18 10:08 IMPRESSION: Findings in keeping with a mild degree of CHF. Electronically Signed: Peter Bahena, at 10:46 EDT , Service support , Abdomen/Pelvis CT 11/18/18 10:56 IMPRESSION: Small amount of ascites. Sigmoid diverticulosis. Small bilateral effusions with bibasilar atelectasis and basilar scarring. Electronically Signed: Peter Bahena, at 11:37 EDT , Service support , Nikolay Aldrich: pulmonology Alex Clarke: cardiology Operations: None Procedures: None Summary of Care Provided: The patient is a 72 year old F with acute onset of shortness of breath. Initial Sumption was that this was an acute exacerbation as well as heart failure. Patient was treated for both. Patient did have outpatient PFTs that showed a restrictive component not obstructive. Patient was seen by Dr. Aldrich who stated the patient did not have a COPD discontinue the steroids. Patient was seen in consultation by Dr. Clarke of cardiology and patient was diuresed with IV Lasix. Patient was taking oral Lasix 40 mg twice daily at home and will be transitioned over to 80 mg twice daily moving forward. Patient has an appointment with Dr. Clarke on 01 January, advised patient try to move that appointment up sooner if possible. Patient did have anemia and did receive 1 unit packed red blood cells. Patient is iron deficient as well and did receive 2 doses of 20 mg of iron sucrose. Patient was to have this done as outpatient but so she will no longer need to have at least for the 2 doses. Patient will need follow-up with Dr. Bell to see if additional infusions would be necessary iron sucrose or further blood transfusions. Patient's hemoglobin has remained stable at 8.3 since the transfusion. Patient does have some weakness but patient and family are declining any kind of home health services at this time. [] Patient Problems: Active and Suspected Problems (Last Updated 11/18/18 @ 14:34 by Sadnoval Tong DO) (HFpEF) heart failure with preserved ejection fraction (Acute) - Physical Exam General: Alert, No apparent distress HEENT: Atraumatic, Normocephalic Oral: Moist Mucosa, No Gingival or Mucosal Lesions/ Ulcerations Neck: No Nodes, Thyroid Normal Size and Texture Lungs: Diminished, - - coarse breath sounds bilaterally. Cardiovascular: Regular rate, Regular Rhythm, Normal S1, Normal S2 Abdomen: Bowel Sounds Present, Soft, Non Tender, Non-Distended, No Hepato- splenomegaly Extremities: No edema, No Calf Tenderness Skin: No rashes, No breakdown Vital Signs Temp Pulse Resp BP Pulse Ox 36.9 C 79 20 H 180/65 H 94 11/22/18 09:15 11/22/18 11:03 11/22/18 09:15 11/22/18 09:15 11/22/18 09:15 Oxygen Flow Rate (L/min) 2.5 Oxygen Delivery Method Nasal Cannula Weight: 114.4 kg Body Mass Index (BMI) 45.7 Finger Stick Blood Glucose 155 Intake and Output for Last 24 Hours 11/20/18 11/21/18 11/22/18 23:59 23:59 23:59 Intake Total 1060 / 1060 740 / 740 243.67 / 243.67 Output Total 2100 / 2100 1600 / 1600 Balance -1040 / -1040 -860 / -860 243.67 / 243.67 Laboratory Tests Past 24 Hrs 11/22/18 11/22/18 06:25 06:25 WBC 9.2 RBC 3.19 L Hgb 8.3 L Hct 27.5 L MCV 86.2 MCH 26.0 L MCHC 30.2 L RDW Std Deviation 49.2 H RDW Coeff of Becca 15.7 H Plt Count 284 MPV 9.5 Immature Gran % (Auto) 3.900 H Neut % (Auto) 77.8 H Lymph % (Auto) 9.4 L [place] % (Auto) 7.0 Eos % (Auto) 1.6 Baso % (Auto) 0.3 Absolute Neuts (auto) 7.2 Absolute Lymphs (auto) 0.86 Nucleated RBC % 0 Sodium 140 Potassium 3.3 L Chloride 105 Carbon Dioxide 32.0 Anion Gap 3 L BUN 49 H Creatinine 1.75 H Estim Creat Clear Calc 23.32 Est GFR (MDRD) Af Amer 37 L Est GFR (MDRD) Non-Af 30 L BUN/Creatinine Ratio 28.0 H Glucose 137 H Calcium 8.7 POC Glucose 11/22/18 11/22/18 11/22/18 11:13 06:23 03:28 POC Glucose 169 H 131 H 157 H 11/21/18 11/21/18 22:02 16:33 POC Glucose 233 H 209 H Discharge Diet: Low fat/ Low Cholesterol, 1800 Calorie Control Diet Discharge Activity: Return to Normal Activity Call your doctor if you observe: Fever of 101 or Higher, Shortness of breath, Chest pain Home Medications: Medications to take at Discharge Amitriptyline HCl [Elavil] 100 mg PO QHS 04/09/13 metFORMIN (XR) [Glucophage Xr] 500 mg PO DAILY 12/25/16 Aspirin E.C. [Ecotrin] 81 mg PO DAILY 10/25/17 Atorvastatin Calcium 80 mg PO DAILY 10/25/17 Gabapentin [Neurontin] 200 mg PO .COMPLEX 10/25/17 Amlodipine Besylate 10 mg PO DAILY 06/01/18 Ferrous Sulfate 325 mg PO 1200,1700 #120 tab 07/09/18 Potassium Chloride 20 meq PO DAILY #60 tab.er.prt 07/09/18 carvedilol 6.25 mg tablet 6.25 mg PO BID #60 tab 07/31/18 isosorbide mononitrate ER 60 mg tablet,extended release 24 hr 60 mg PO DAILY #60 tab 07/31/18 Albuterol Sulfate 1.25 mg IH 4X/DAY 08/20/18 Doxazosin Mesylate 8 mg PO QHS 08/20/18 Hydralazine HCl 100 mg PO TID 08/20/18 Omeprazole 40 mg PO DAILY 08/20/18 budesonide-formoterol HFA 160 mcg-4.5 mcg/actuation aerosol inhaler 2 puff INHALATION BID #1 ea 09/25/18 tiotropium 2.5 mcg-olodaterol 2.5 mcg/actuation mist for inhalation 2 puff INHALATION DAILY #4 g 10/28/18 Furosemide [Lasix] 80 mg PO BID@1000,1800 #60 tab 11/22/18 Following Prescrptions Were Given to Patient: Furosemide [Lasix] 80 mg PO BID@1000,1800 #60 tab Transmission Status: Pending to [id number] Other Amb Orders: Basic Metabolic Profile (BMP) Time Frame: 1 Week, Facility: [facility], Location: Laboratory CBC W/Diff, Automated Time Frame: 1 Week, Facility: [facility], Location: Laboratory Primary Care Physician: Levi Laird MD [Primary Care Provider] - Within 1 Week Please Follow Up With: Alex Clarke MD When: 01/01/19. Call to see if can be seen sooner. Please Follow Up With: Lia Meléndez NP-C When: 01/13/19 Please Follow Up With: Maria Del Rosario Bell MD When: 1-2 weeks Patient Instructions: Taking Medication to Control Heart Failure, What Is Heart Failure?, Heart Failure: Tracking Your Weight, Heart Failure: Being Active, Taking Medications for Your Heart, Coping with Heart Failure, Heart Failure: Making Changes to Your Diet Disposition: Home Minutes spent on discharge:: 36 Patient Condition:: Fair Medical Necessity - Tobacco Use Smoking Status: Former smoker Meaningful Use Info Meaningful Use Diagnoses (Choose all that apply): CHF - CHF NICOLAS/ARB ordered at discharge?: No Reason NICOLAS/ARB not ordered?: Worsening renal disease Documented LVEF (%): 60 Code Visit Inpatient E&M: 86768 Disch Hosp
--- NOTE | 2018-11-22 13:37 | PCM.PN.PUL ---
Patient Problems: Active and Suspected Problems (Last Updated 11/18/18 @ 14:34 by Sandoval Tong DO) (HFpEF) heart failure with preserved ejection fraction (Acute) Subjective: Patient did well overnight. Patient reports subjective improvement in dyspnea. Patient has been requiring 2 L nasal cannula with rest. Patient denies any abdominal pain, nausea or vomiting. Patient has been up to the chair frequently and feels she is strong enough to go home. Patient is requesting a POC for home - Physical Exam General: Alert, Oriented x3, Cooperative, No apparent distress, - - Appears stated age. Morbidly obese. HEENT: Atraumatic, PERRLA, EOMI, Normocephalic, - - No scleral icterus or injection noted. Oral: Moist Mucosa, No Gingival or Mucosal Lesions/ Ulcerations Neck: Supple, No Nodes, Trachea Midline, JVD, Right Lungs: No rhonchi, No wheeze, No rales, Diminished, - - Fair effort. Cardiovascular: Regular rate, Regular Rhythm, Normal S1, Normal S2, Murmur - Unchanged from previous, No rub noted, No Gallop Abdomen: Bowel Sounds Present, Soft, Non Tender, Non-Distended, Obese Extremities: No clubbing, No cyanosis, Edema - Improved from previous evaluation Skin: No rashes, No breakdown Musculoskeletal: No Tenderness to Palpation of Joints or Extremities Lymphatic: No Cervical, Supraclavicular, or Inguinal Adenopathy Neurological: Cranial nerves II-XII grossly intact, Neuro grossly intact, Motor Exam 5/5 strength throughout Psych/Mental Status: Alert and oriented to time, place, person, mood and affect Vital Signs Temp Pulse Resp BP Pulse Ox 36.9 C 79 20 H 180/65 H 94 11/22/18 09:15 11/22/18 11:03 11/22/18 09:15 11/22/18 09:15 11/22/18 09:15 Oxygen Flow Rate (L/min) 2.5 Oxygen Delivery Method Nasal Cannula Weight: 114.4 kg Body Mass Index (BMI) 45.7 Finger Stick Blood Glucose 155 Intake and Output for Last 24 Hours 11/20/18 11/21/18 11/22/18 23:59 23:59 23:59 Intake Total 1060 / 1060 740 / 740 243.67 / 243.67 Output Total 2099 / 2100 1600 / 1600 Balance -1040 / -1040 -860 / -860 243.67 / 243.67 Laboratory Tests Past 24 Hrs 11/22/18 11/22/18 06:25 06:25 WBC 9.2 RBC 3.19 L Hgb 8.3 L Hct 27.5 L MCV 86.2 MCH 26.0 L MCHC 30.2 L RDW Std Deviation 49.2 H RDW Coeff of Becca 15.7 H Plt Count 284 MPV 9.5 Immature Gran % (Auto) 3.900 H Neut % (Auto) 77.8 H Lymph % (Auto) 9.4 L [place] % (Auto) 7.0 Eos % (Auto) 1.6 Baso % (Auto) 0.3 Absolute Neuts (auto) 7.2 Absolute Lymphs (auto) 0.86 Nucleated RBC % 0 Sodium 140 Potassium 3.3 L Chloride 105 Carbon Dioxide 32.0 Anion Gap 3 L BUN 49 H Creatinine 1.75 H Estim Creat Clear Calc 23.32 Est GFR (MDRD) Af Amer 37 L Est GFR (MDRD) Non-Af 30 L BUN/Creatinine Ratio 28.0 H Glucose 137 H Calcium 8.7 POC Glucose 11/22/18 11/22/18 11/22/18 11:13 06:23 03:28 POC Glucose 169 H 131 H 157 H 11/21/18 11/21/18 22:02 16:33 POC Glucose 233 H 209 H Medical Necessity - Tobacco Use Smoking Status: Former smoker Assessment/Plan All Active Problems (Last Updated 11/18/18 @ 14:34 by Sandoval Tong DO) Acute exacerbation of chronic obstructive pulmonary disease (COPD) (Acute) Acute respiratory failure with hypoxia (Acute) (HFpEF) heart failure with preserved ejection fraction (Acute) RECOMMENDATIONS: 1. Continue diuretic therapy. 2. Continue BiPAP therapy with naps and nightly. 3. Encourage incentive spirometer use and mobilize patient as tolerated. 4. Perform walking oximetry study prior to consideration for discharge from the hospital. 5. The patient should follow-up in the pulmonary medicine clinic within 2 weeks of discharge. IMPRESSIONS: 1. Acute hypoxic respiratory insufficiency secondary to acute on chronic diastolic CHF Given the patient's rapid response to the use of diuretics and noninvasive positive pressure ventilatory support, it is highly likely that her respiratory insufficiency was secondary to decompensated heart failure. Continue nocturnal BiPAP therapy per home regimen. Continue to wean supplemental oxygen as tolerated and encourage incentive spirometer use. Patient can be transition to baseline diuretic therapy. Stressed to the patient the importance of maintaining a stable dry weight and avoiding salt intake. Patient can follow-up with nurse practitioner. Patient will need an outpatient walking oximetry to qualify for POC as requested. 2. Type II pulmonary hypertension The patient has known pulmonary hypertension based upon right heart catheterization performed in the past. Acute hypoxemia would exacerbate patient's underlying cor pulmonale, which could lead to flash pulmonary edema. We will continue to monitor. Patient appears to be responding well to diuretic therapy. Patient can likely be transition to baseline diuretic therapy. Did stress to the patient role of a low-salt diet to avoid future hospitalization. 3. Obstructive sleep apnea Continue nocturnal BiPAP therapy. 4. Hypertension/diabetes mellitus/iron deficiency anemia/advanced age/morbid obesity Complicates care, management, recovery and prognosis. Okay to continue home medications from my perspective. Code Visit Inpatient E&M: 45766 Subs Hosp L2
--- NOTE | 2018-11-22 14:13 | PHA.DC.MC ---
Pharmacy Service has performed discharge medication reconciliation and counseling for this patient. The patient's discharge medication list was reviewed for discrepancies and discrepancies were resolved. 1. FUROSEMIDE 80MG PO BID (increased from 40mg PO BID) Home Medications Amitriptyline HCl [Elavil] 100 mg PO QHS 04/09/13 metFORMIN (XR) [Glucophage Xr] 500 mg PO DAILY 12/25/16 Aspirin E.C. [Ecotrin] 81 mg PO DAILY 10/25/17 Atorvastatin Calcium 80 mg PO DAILY 10/25/17 Gabapentin [Neurontin] 200 mg PO .COMPLEX 10/25/17 Amlodipine Besylate 10 mg PO DAILY 06/01/18 Ferrous Sulfate 325 mg PO 1200,1700 #120 tab 07/09/18 Potassium Chloride 20 meq PO DAILY #60 tab.er.prt 07/09/18 carvedilol 6.25 mg tablet 6.25 mg PO BID #60 tab 07/31/18 isosorbide mononitrate ER 60 mg tablet,extended release 24 hr 60 mg PO DAILY #60 tab 07/31/18 Albuterol Sulfate 1.25 mg IH 4X/DAY 08/20/18 Doxazosin Mesylate 8 mg PO QHS 08/20/18 Hydralazine HCl 100 mg PO TID 08/20/18 Omeprazole 40 mg PO DAILY 08/20/18 budesonide-formoterol HFA 160 mcg-4.5 mcg/actuation aerosol inhaler 2 puff INHALATION BID #1 ea 09/25/18 tiotropium 2.5 mcg-olodaterol 2.5 mcg/actuation mist for inhalation 2 puff INHALATION DAILY #4 g 10/28/18 Furosemide [Lasix] 80 mg PO BID@1000,1800 #60 tab 11/22/18 The patient was counseled on the following discharge medications and changes in medications for homegoing were reviewed. The Reason for Use, instructions for use, and potential side effects were reviewed for all new medications. The patient's questions regarding all of their medications were answered. The patient was able to verbally demonstrate an understanding of their discharge medications.
--- NOTE | 2018-11-25 16:04 | CASEMGMT ---
RANDY MONTALVO DC phone call DC DATE: 11/22/18 DC Disposition: Home Diagnosis: Heart Failure Lace/Strata: 18/06 Intro role of CM to patient's daughter. Daughter states her mother is doing well, no concerns. No questions re: instructions, prescriptions. Daughter states she assisted her mother in making f/u appointments. No care improvement instructions given. Opal SHERIFFN RN ACM
== END 2018-11-22 14:58 | disposition home or self-care (01) | DRG 291 ==
LOC: ED 10:45 → PCU 11-19 06:57
PROVIDERS: Internal Medicine Cardiovascular Disease; Emergency Provider Emergency Medicine; Family Provider Family Medicine; PCP Family Medicine
DX: I13.0 Hypertensive heart and chronic kidney disease with heart failure and stage 1 through stage 4 chronic kidney disease, or unspecified chronic kidney disease (principal); I50.33 Acute on chronic diastolic (congestive) heart failure; Z68.42 Body mass index [BMI] 45.0-49.9, adult; N18.4 Chronic kidney disease, stage 4 (severe); E55.9 Vitamin D deficiency, unspecified; E11.22 Type 2 diabetes mellitus with diabetic chronic kidney disease; E66.01 Morbid (severe) obesity due to excess calories; I25.10 Atherosclerotic heart disease of native coronary artery without angina pectoris; I07.1 Rheumatic tricuspid insufficiency; G47.33 Obstructive sleep apnea (adult) (pediatric); D50.9 Iron deficiency anemia, unspecified; I27.22 Pulmonary hypertension due to left heart disease; Z95.1 Presence of aortocoronary bypass graft; Z79.84 Long term (current) use of oral hypoglycemic drugs; Z87.891 Personal history of nicotine dependence
CPT/HCPCS: 36415; 36600; 71045; 74176; 80048; 82728; 82803; 82962; 83540; 83550; 83880; 84484; 85014; 85018; 85025; 86850; 86900; 86901; 86920; 86922; 93005; 94002; 94640; 99285; J1756; J7040; P9016; A4216; J1940

== ENCOUNTER 2018-11-26 12:54 | Inpatient (IN) | payer MEDICARE, SELFPAY ==
[2018-11-18 13:40] VITALS: BMI 45.7
[2018-11-26] VITALS (11 sets, daily range): BP systolic 138–171; BP diastolic 65–76; PULSE 71–85; RESP 15–20; TEMP 36.4–37.2; O2SAT 95–99; BMI 45.7; BMI 46.3
--- NOTE | 2018-11-26 14:05 | EKG12_ITS ---
Test Reason : SOB Blood Pressure : / mmHG Vent. Rate : 072 BPM Atrial Rate : 072 BPM P-R Int : 184 ms QRS Dur : 108 ms QT Int : 434 ms P-R-T Axes : 050 030 043 degrees QTc Int : 475 ms Normal sinus rhythm Possible Left atrial enlargement Borderline ECG Confirmed by MELISSA SNOW ([id number]), news editor DENVER KRAUSE ([id number]) on 12/03/2018 1:23:59 PM Referred By: Trent Resendiz Confirmed By:MELISSA SNOW
--- NOTE | 2018-11-26 14:07 | ED.VIS.GEN ---
History of Present Illness Chief Complaint: Shortness of Breath Informant: Patient, Family Onset: Days Context: Gradual Onset Narrative: She is a 72-year-old female with history of hypertension, CHF with frequent exacerbations, COPD (on 2 L at baseline) and acute kidney injury presenting with concern for fluid overload. Patient states she has had an 8 pound weight gain since discharge from the hospital 5 days ago. At that time patient was admitted for fluid overload and anemia. Patient received IV Lasix. She was discharged home on 80 mg Lasix daily which is double of her normal dose. Since yesterday she has had decreased urination. She is having increased swelling of her abdomen and her legs. She states she feels a little bit more short of breath and does have a nonproductive cough. She denies any associated chest pain. Family states that since June patient has had multiple admissions for CHF and kidney injury. She notes that she has had orthopnea since June. She denies any other new symptoms at this time. Past Medical History - Allergies and Home Meds Allergies/Adverse Reactions: Allergies Penicillins Allergy (Verified 11/26/18 12:58) Hives adhesive tape Adverse Reaction (Verified 11/26/18 12:58) Other Surgical History: appendectomy, cholecystectomy, - - CABG x4, cholecystectomy, appendectomy, left lower extremity vein stripping, tonsillectomy. Smoking Status: Former smoker - Family History Paternal Family History: Family History (Last Reviewed 11/18/18 @ 14:35 by Sandoval Tong DO) Mother Heart disease Family History: Reports: - - Patient notes a paternal family history of chronic COPD with tobacco use, heart disease and diabetes. Maternal Family History: Family History (Last Reviewed 11/18/18 @ 14:35 by Sandoval Tong DO) Mother Heart disease Family History: Reports: - - Patient notes a maternal family history of heart disease and diabetes. Review of Systems All systems negative except as indicated Respiratory: Reports: Dyspnea, Cough, Dyspnea on exertion, Orthopnea Genitourinary: Reports: - - Urination decreased Physical Exam Vital Signs/Narrative: Vital Signs Temp Pulse Resp BP Pulse Ox 11/26/18 12:55 98 F 73 20 H 138/66 H 99 Inital Vital Signs reviewed: Yes General: Well nourished, Well developed, No Acute Distress Head: Normocephalic, Atraumatic Eyes: Perrl, EOMI ENT: Moist mucous membranes, No rhinorrhea Neck: Supple, Nontender, No JVD Cardiovascular: Regular rate, Regular rhythm, Murmur Respiratory: No distress, CTA bilaterally, Chest nontender. Negative for: Rales, Rhonchi, Wheezing Abdomen: Soft, Nontender, Nondistended, Normal bowel sounds Back: Nontender, Normal Inspection Extremities: Nontender, Edema - 2+ edema up to mid lindsey bilateral Skin: Normal color, No rash Neurological: Alert, Oriented x3, Cranial nerves II-XII grossly intact, Normal Strength, Normal Sensation Psychological: Normal affect, Normal Mood Diagnostic/Tx/Re-eval Chest X-Ray - ED: 2 View, Read by ED Physician, Read by Radiologist, CHF Laboratory Results - last 24 hr 11/26/18 11/26/18 11/26/18 13:40 13:40 13:40 WBC 12.3 H RBC 3.17 L Hgb 8.4 L Hct 27.3 L MCV 86.1 MCH 26.5 L MCHC 30.8 L RDW Std Deviation 50.0 H RDW Coeff of Becca 16.1 H Plt Count 324 MPV 10.1 Immature Gran % (Auto) 3.300 H Neut % (Auto) 83.8 H Lymph % (Auto) 5.9 L [place] % (Auto) 5.5 Eos % (Auto) 1.0 Baso % (Auto) 0.5 Absolute Neuts (auto) 10.3 H Absolute Lymphs (auto) 0.73 L Nucleated RBC % 0 PT 14.8 INR 1.2 Sodium 133 L Potassium 4.1 Chloride 98 Carbon Dioxide 29.0 Anion Gap 6 BUN 57 H Creatinine 2.13 H Estim Creat Clear Calc 19.16 Est GFR (MDRD) Af Amer 29 L Est GFR (MDRD) Non-Af 24 L BUN/Creatinine Ratio 26.8 H Glucose 219 H Calcium 8.7 Total Bilirubin 0.50 AST 49 H ALT 47 Alkaline Phosphatase 226 H Troponin I < 0.015 B-Natriuretic Peptide Total Protein 7.0 Albumin 3.4 Globulin 3.6 Albumin/Globulin Ratio 0.9 11/26/18 13:40 WBC RBC Hgb Hct MCV MCH MCHC RDW Std Deviation RDW Coeff of Becca Plt Count MPV Immature Gran % (Auto) Neut % (Auto) Lymph % (Auto) [place] % (Auto) Eos % (Auto) Baso % (Auto) Absolute Neuts (auto) Absolute Lymphs (auto) Nucleated RBC % PT INR Sodium Potassium Chloride Carbon Dioxide Anion Gap BUN Creatinine Estim Creat Clear Calc Est GFR (MDRD) Af Amer Est GFR (MDRD) Non-Af BUN/Creatinine Ratio Glucose Calcium Total Bilirubin AST ALT Alkaline Phosphatase Troponin I B-Natriuretic Peptide 344.8 H Total Protein Albumin Globulin Albumin/Globulin Ratio Diagnostic Data Chest X-Ray 11/26/18 14:15 IMPRESSION: Mild pulmonary vascular congestion/CHF Electronically Signed: Mike Toussaint DO at 14:47 EDT Tel , Service support , - Rhythm Strip Rhythm Strip: Sinus Rhythm Rate: 72 Ectopy: None - EKG Initial EKG Interpretation: Sinus Rhythm, - - Normal sinus rhythm at a rate of 72 MA interval 184 QRS 108 QT/QTc 34/475 Normal axis Nonspecific T wave inversions in V1 and V2 Compared to prior EKG on 11/18/2018 patient is T wave inversion in V2 is new however this might be secondary to lead placement - Medical Decision Making She is evaluated for weight gain, worsening shortness of breath and dyspnea on exertion. Her symptoms are consistent with a CHF exacerbation. Patient was just discharged from the hospital 1 week ago for the same thing. Patient states she been compliant with her medications but for the past 24 hours had decreased urine output. She denies any associated chest pain. Patient does have a slight bump in her creatinine which might be secondary to the Lasix that she was discharged home on. She will be admitted for further monitoring of her kidney function as well as fluid balance. She is agreeable with this plan. She is stable for the general medical floor at time of disposition. ED Disposition - Plan for ED Patient: Disposition: Acute Care Hospital [facility] Diagnosis: Acute exacerbation of CHF (congestive heart failure), Paibp-go-ssoejme kidney injury
--- NOTE | 2018-11-26 14:15 | RAD_ITS ---
STUDY: X-RAY CHEST REASON FOR EXAM: Female, 72 years old. Shortness of breath TECHNIQUE: PA and lateral views of the chest. COMPARISON: 11/18/2018 FINDINGS: Lungs are adequately inflated. Mild diffuse pulmonary vascular congestion is noted. Elevated right hemidiaphragm is identified. Sternal cerclage wires and vascular clips are present from a prior sternotomy and coronary artery bypass graft procedure (CABG). Normal mediastinum and james. Normal visualized pulmonary arteries. Normal visualized aortic arch and descending thoracic aorta. There are diffuse degenerative changes of the visualized thoracic spine. There is degenerative osteoarthritis of the bilateral shoulders. There is no demonstrated abnormality of the visualized soft tissue structures of the upper abdomen. RAD/Chest PA and Lateral IMPRESSION: Mild pulmonary vascular congestion/CHF Electronically Signed: Mike Toussaint DO at 14:47 EDT Tel , Service support ,
[2018-11-26 14:19] LABS: Absolute Lymphocyte Count 0.73 X10^3/uL (0.83-4.51); Absolute Neutrophil Count 10.3 X10^3/uL (2.0-7.7); Basophil# 0.06 X10^3/uL; Basophil% 0.5 % (0-1); Eosinophil# 0.12 X10^3/uL; Hematocrit 27.3 % (37-47); Hemoglobin 8.4 g/dL (12.0-15.0); Lymphocyte # 0.73 X10^3/ul (4.0); Lymphocyte % 5.9 % (19-41); Mean Corp Hgb Conc 30.8 g/dL (32-36); Mean Corpuscular Hgb 26.5 pg (27.0-32.0); Mean Corpuscular Volume 86.1 fL (81-99); Mean Platelet Vol. 10.1 fl (6.2-12.0); Monocyte# 0.68 X10^3/uL; Monocyte% 5.5 % (0-10); NRBC Flagged by Analyzer 0 % (0-5); Neutrophil # 10.29 X10^3/uL (2.7-7.7); Neutrophil % 83.8 % (47-70); Platelet Count 324 K/mm3 (150-450); RBC Distribution Width CV 16.1 % (11.6-14.6); Red Blood Count 3.17 M/mm3 (4.2-5.4); White Blood Count 12.3 K/mm3 (4.4-11.0)
[2018-11-26 14:30] LABS: ALB/GLOB Ratio 0.9 RATIO (0.9-2.4); AST(SGOT) 49 U/L (15-37); Alanine Aminotransfer ALT/SGPT 47 U/L (13-56); Albumin, Serum 3.4 g/dL (3.2-5.0); Alkaline Phosphatase 226 U/L (45-117); Anion Gap 6 (5-15); BUN 57 mg/dL (7-18); BUN/Creat Ratio 26.8 RATIO (10-20); Calcium,Total 8.7 mg/dL (8.5-10.1); Chloride 98 mmol/L (98-107); Creatinine, Serum 2.13 mg/dL (0.55-1.02); EST Glomerular Filtration Rate 24 mL/min (>60); Est Glom Filt Rate - Afr Amer 29 mL/min (>60); Estimated Creatinine Clearance 19.16 ml/min; Globulin 3.6 g/dL (2.2-4.2); Glucose 219 mg/dL (74-106); International Normalized Ratio 1.2; Potassium 4.1 mmol/L (3.5-5.1); Prothrombin Time (Protime)PT. 14.8 SECONDS (11.7-14.9); Sodium Level 133 mmol/L (136-145)
[2018-11-26 14:48] LABS: BNP,B-Type NATRIURETIC PEPTIDE 344.8 pg/mL (0-100)
--- NOTE | 2018-11-26 16:42 | PCM.HP.STD ---
Problem List (1) Tricuspid insufficiency Status: Chronic Qualifiers: (2) Mitral insufficiency Status: Chronic Qualifiers: (3) Acute respiratory failure with hypoxia Status: Acute (4) ELAINE (obstructive sleep apnea) Status: Chronic (5) CKD (chronic kidney disease), stage III Status: Chronic (6) (HFpEF) heart failure with preserved ejection fraction Status: Acute Qualifiers: Heart failure chronicity: acute Qualified Code(s): I50.31 - Acute diastolic (congestive) heart failure (7) Atherosclerotic heart disease of [place] coronary artery without angina pectoris Status: Chronic Qualifiers: Comment: NATHAN to the LAD, and SVG to the diagonal branch, and SVG to the LCx system, and an SVG to the RCA on 04/16/2013 at [facility] with Dr. Fields (8) Essential hypertension Status: Chronic (9) Pulmonary hypertension Status: Chronic (10) Morbid obesity with BMI of 40.0-44.9, adult Status: Chronic (11) H/O four vessel coronary artery bypass graft Status: Chronic Comment: NATHAN to the LAD, and SVG to the diagonal branch, and SVG to the LCx system, and an SVG to the RCA on 04/16/2013 at [facility] with Dr. Fields (12) Dyslipidemia Status: Chronic (13) COPD (chronic obstructive pulmonary disease) Status: Chronic Qualifiers: (14) Diabetes mellitus type 2 in obese Status: Chronic (15) Acute exacerbation of CHF (congestive heart failure) Status: Chronic (16) Acute kidney injury superimposed on CKD Status: Acute History of Present Illness Date of Admission: 11/26/18 Chief Complaint: Shortness of breath today The patient is a 72 year old F with history of chronic systolic heart failure with frequent exacerbations, last discharged on 11/26/2018, COPD on 2 L of oxygen came to ER for shortness of breath, weight gain about 8 pounds since discharge, bilateral lower extremity edema. Patient also states she is not able to urinate much even Lasix was increased to 80 mg twice daily during last discharge. She denies any chest pressure. She also has dry cough which as per the patient, his initial symptom for CHF exacerbation. Patient kidney function have gotten worsened, BUN from 49-57, creatinine 1.75 to 2.13 as compared to 11/22. Sodium 133. H&H is stable EKG shows normal sinus rhythm 72 bpm. Chest x-ray does not show much difference from previous x-ray but reported as mild pulmonary vascular congestion Past Medical History Past Medical History (Chronic Problems): Chronic Problems (Last Updated 11/18/18 @ 14:34 by Sandoval Tong DO) Tricuspid insufficiency (Chronic) Mitral insufficiency (Chronic) ELAINE (obstructive sleep apnea) (Chronic) CKD (chronic kidney disease), stage III (Chronic) Acute exacerbation of CHF (congestive heart failure) (Chronic) Atherosclerotic heart disease of [place] coronary artery without angina pectoris (Chronic) NATHAN to the LAD, and SVG to the diagonal branch, and SVG to the LCx system, and an SVG to the RCA on 04/16/2013 at [facility] with Dr. 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 iFelds Dyslipidemia (Chronic) COPD (chronic obstructive pulmonary disease) (Chronic) Diabetes mellitus type 2 in obese (Chronic) Medical History: Medical History (Last Updated 11/18/18 @ 14:34 by Sandoval Tong DO) Atherosclerotic heart disease of [place] coronary artery without angina pectoris (Chronic) I25.10 NATHAN to the LAD, and SVG to the diagonal branch, and SVG to the LCx system, and an SVG to the RCA on 04/16/2013 at [facility] with Dr. Fields Essential hypertension (Chronic) I10 Pulmonary hypertension (Chronic) I27.20 Morbid obesity with BMI of 40.0-44.9, adult (Chronic) E66.01, Z68.41 Dyslipidemia (Chronic) E78.5 COPD (chronic obstructive pulmonary disease) (Chronic) J44.9 Diabetes mellitus type 2 in obese (Chronic) E11.69, E66.9 (HFpEF) heart failure with preserved ejection fraction I50.30 CAD (coronary artery disease) (Inactive) I25.10 NATHAN to the LAD, and SVG to the diagonal branch, and SVG to the LCx system, and an SVG to the RCA on 04/16/2013 at [facility] with Dr. Fields Allergies Penicillins Allergy (Verified 11/26/18 12:58) Hives adhesive tape Adverse Reaction (Verified 11/26/18 12:58) Other Home Medications: Ambulatory Orders Medication Instructions Recorded Amitriptyline HCl [Elavil] 100 mg PO QHS 04/09/13 metFORMIN (XR) [Glucophage Xr] 500 mg PO DAILY 12/25/16 Aspirin E.C. [Ecotrin] 81 mg PO DAILY 10/25/17 Atorvastatin Calcium 80 mg PO DAILY 10/25/17 Gabapentin [Neurontin] 300 mg PO QHS 10/25/17 Amlodipine Besylate 10 mg PO DAILY 06/01/18 Ferrous Sulfate 325 mg PO 1200,1700 #120 tab 07/09/18 Potassium Chloride 20 meq PO DAILY #60 tab.er.prt 07/09/18 carvedilol 6.25 mg tablet 6.25 mg PO BID #60 tab 07/31/18 isosorbide mononitrate ER 60 mg 60 mg PO DAILY #60 tab 07/31/18 tablet,extended release 24 hr Albuterol Sulfate 1.25 mg IH 4X/DAY 08/20/18 Doxazosin Mesylate 8 mg PO QHS 08/20/18 Hydralazine HCl 200 mg PO DAILY 08/20/18 Omeprazole 40 mg PO DAILY 08/20/18 budesonide-formoterol HFA 160 2 puff INHALATION BID #1 ea 09/25/18 mcg-4.5 mcg/actuation aerosol inhaler tiotropium 2.5 mcg-olodaterol 2.5 2 puff INHALATION DAILY #4 g 10/28/18 mcg/actuation mist for inhalation Furosemide [Lasix] 80 mg PO BID@1000,1800 #60 tab 11/22/18 Hydralazine HCl 100 mg PO QHS 11/26/18 Surgical History: Surgical History (Last Reviewed 11/18/18 @ 14:35 by Sandoval Tong DO) H/O four vessel coronary artery bypass graft (Chronic) Onset Date: ~04/16/13 Z95.1 NATHAN to the LAD, and SVG to the diagonal branch, and SVG to the LCx system, and an SVG to the RCA on 04/16/2013 at [facility] with Dr. Fields Surgical History: appendectomy, cholecystectomy, - - CABG x4, cholecystectomy, appendectomy, left lower extremity vein stripping, tonsillectomy. 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 Maternal Family History: Family History (Last Reviewed 11/18/18 @ 14:35 by Sandoval Tong DO) Mother Heart disease History Items: - - Patient notes a maternal family history of heart disease and diabetes. Review of Systems Constitutional: Denies: Chills, Fever, Weight Change HEENT: Denies: Head Aches, Sinus Congestion, Sinus Drainage Cardiovascular: Reports: Edema. Denies: Chest Pain, Palpitations Respiratory: Reports: Cough, Shortness of breath at rest, Shortness of breath upon exertion. Denies: Sputum production Gastrointestinal: Denies: Abdominal Pain, Nausea, Vomiting Genitourinary: Reports: -. Denies: Dysuria, Frequency - Decrease in frequency and volume of urination Musculoskeletal: Reports: Joint Pain. Denies: Joint Tenderness Skin: Denies: Rash, Wounds Neurological: Denies: Numbness, Tingling, Focal weakness Psychiatric: Denies: Anxiety, Depression, Homicidal Ideations, Suicidal Ideations Hematologic/ Lymphatic: Denies: Easy Bruising, Easy Bleeding VTE Information - Inpt Only VTE Present on Admission: No VTE Mechan Device Prophylaxis: None VTE Pharm Prophylaxis ordered?: Yes Patient Problems: Active and Suspected Problems (Last Updated 11/18/18 @ 14:34 by Sandoval Tong DO) Acute kidney injury superimposed on CKD (Acute) - Physical Exam General: Alert, Oriented x3, Cooperative HEENT: Atraumatic, PERRLA, EOMI, Normocephalic Neck: Supple, No JVD, Negative Carotid Bruits Lungs: No wheeze, No rales, Diminished - Air entry diminished in bilateral lung bases. Conducted sounds from upper bronciole Cardiovascular: Regular rate, Regular Rhythm, Normal S1, Normal S2, No murmurs Abdomen: Bowel Sounds Present, Soft, Non Tender, Distended - Mild ascites with shifting dullness. Extremities: Capillary Refill Less than 3 Seconds, Edema - 3+ pedal edema. Stasis dermatitis Skin: No rashes, No breakdown, Rash Present - redness lower extremity secondary to venous stasis Musculoskeletal: No Tenderness to Palpation of Joints or Extremities, Arthritic Changes Neurological: Cranial nerves II-XII grossly intact, Deep Tendon Reflexes 2+/4 and Symmetrical, Neuro grossly intact Psych/Mental Status: Normal Affect, Appropriate Vital Signs Temp Pulse Resp BP Pulse Ox 98 F 71 18 138/71 H 96 11/26/18 12:55 11/26/18 15:30 11/26/18 15:30 11/26/18 15:30 11/26/18 15:30 Oxygen Flow Rate (L/min) 2 Oxygen Delivery Method Nasal Cannula Weight: 250 lb Body Mass Index (BMI) 45.7 Finger Stick Blood Glucose 155 Laboratory Tests Past 24 Hrs 11/26/18 11/26/18 11/26/18 13:40 13:40 13:40 WBC 12.3 H RBC 3.17 L Hgb 8.4 L Hct 27.3 L MCV 86.1 MCH 26.5 L MCHC 30.8 L RDW Std Deviation 50.0 H RDW Coeff of Becca 16.1 H Plt Count 324 MPV 10.1 Immature Gran % (Auto) 3.300 H Neut % (Auto) 83.8 H Lymph % (Auto) 5.9 L [place] % (Auto) 5.5 Eos % (Auto) 1.0 Baso % (Auto) 0.5 Absolute Neuts (auto) 10.3 H Absolute Lymphs (auto) 0.73 L Nucleated RBC % 0 PT 14.8 INR 1.2 Sodium 133 L Potassium 4.1 Chloride 98 Carbon Dioxide 29.0 Anion Gap 6 BUN 57 H Creatinine 2.13 H Estim Creat Clear Calc 19.16 Est GFR (MDRD) Af Amer 29 L Est GFR (MDRD) Non-Af 24 L BUN/Creatinine Ratio 26.8 H Glucose 219 H Calcium 8.7 Total Bilirubin 0.50 AST 49 H ALT 47 Alkaline Phosphatase 226 H Troponin I < 0.015 B-Natriuretic Peptide Total Protein 7.0 Albumin 3.4 Globulin 3.6 Albumin/Globulin Ratio 0.9 11/26/18 13:40 WBC RBC Hgb Hct MCV MCH MCHC RDW Std Deviation RDW Coeff of Becca Plt Count MPV Immature Gran % (Auto) Neut % (Auto) Lymph % (Auto) [place] % (Auto) Eos % (Auto) Baso % (Auto) Absolute Neuts (auto) Absolute Lymphs (auto) Nucleated RBC % PT INR Sodium Potassium Chloride Carbon Dioxide Anion Gap BUN Creatinine Estim Creat Clear Calc Est GFR (MDRD) Af Amer Est GFR (MDRD) Non-Af BUN/Creatinine Ratio Glucose Calcium Total Bilirubin AST ALT Alkaline Phosphatase Troponin I B-Natriuretic Peptide 344.8 H Total Protein Albumin Globulin Albumin/Globulin Ratio Assessment/Plan All Active Problems (Last Updated 11/18/18 @ 14:34 by Sandoval Tong DO) Acute respiratory failure with hypoxia (Acute) (HFpEF) heart failure with preserved ejection fraction (Acute) Acute kidney injury superimposed on CKD (Acute) The patient is a 72 year old F with history of chronic heart failure with frequent exacerbations, last discharged on 11/26/2018, COPD on 2 L of oxygen came to ER for shortness of breath, weight gain about 8 pounds since discharge, bilateral lower extremity edema. Patient also states she is not able to urinate much even Lasix was increased to 80 mg twice daily during last discharge. She denies any chest pressure. She also has dry cough which as per the patient, his initial symptom for CHF exacerbation. H&H is stable EKG shows normal sinus rhythm 72 bpm. Chest x-ray does not show much difference from previous x-ray but reported as mild pulmonary vascular congestion. 1. Acute on chronic heart failure with preserved EF: As per the echo in June 2018, patient EF 60%. Echo reported as a stage II diastolic dysfunction with normal RV size and systolic function. LA mildly enlarged. Mild eccentric MR. Mild to moderate TR, RVSP 40 G. It seems that patient is not responding to Lasix even on higher dose 50 twice daily therefore started on Bumex 1 mg IV and then 0.5 mg/h infusion drip. Monitor intake and output, electrolytes, kidney function. Fluid restriction to 1500 mL/h. Patient dose of hydralazine and isosorbide continued. 2. COPD: Seems stable. There is no wheezing or URI symptoms except cough. No fever or chills.PFT on 10/02 showed moderate restrictive ventilatory impairment with reduction in diffusion. Continue bronchodilator and Spiriva at home. Patient does not need IV Solu-Medrol. Patient is on chronic 2 L of home oxygen. 3. Acute kidney injury on CKD stage IV: Patient kidney function have gotten worsened, BUN from 49-57, creatinine 1.75 to 2.13 as compared to 11/22. Sodium 133. For now, patient needs diuresis. Monitor kidney function electrolytes. Consult [place] [facility]. Pulmonary hypertension: As mentioned above. 4. HTN: Blood pressure is controlled. Antihypertensive medications with holding BP parameters. 5. DM2: Hold metformin. On Accu-Chek essences and cover with Humalog sliding scale. 6. Anemia, chronic iron deficiency anemia: H&H did not change. Iron medications ferrous sulfate continued. Patient had iron work-up which shows normal TIBC, ferritin but iron level low, consistent with mixed anemia from anemia of chronic disease and iron deficiency anemia. 7. VTE proph: moderate risk. On Lovenox 30 g subcu daily. Advanced directive/CODE STATUS: Discussed with the patient and patient's son-in-law present in the room. Patient does not want artificial life support including intubation, tube feed, ventilator and/chest compression. Patient is DNR CC Arrest. Total time spent in [id number] encounter in discussion of advanced directive 18 minutes. Clinical Impression(s) from Imaging Studies Chest X-Ray 11/26/18 14:15 IMPRESSION: Mild pulmonary vascular congestion/CHF Code Visit Inpatient E&M: 31765 Init Hosp L3 Procedures: 39148 Advncd Care Plan 30 Min
[2018-11-26] MEDS: Bumetanide 1 MG/4 ML Vial 2 MG IV (18:32)
[2018-11-26] MEDS: Enoxaparin 30 MG/0.3 ML Syringe SC (18:32)
[2018-11-26] MEDS: Bumetanide 12.5 MG in CONTAINER,EMPTY 1 BAG 2 MG CONT INF (19:37)
[2018-11-26] MEDS: Ferrous Sulfate 325 MG Tablet PO (20:17)
[2018-11-26] MEDS: Atorvastatin Calcium 80 MG Tablet PO (22:03)
[2018-11-26] MEDS: hydrALAZINE 50 MG Tablet 100 MG PO (22:03)
[2018-11-26] MEDS: Gabapentin 300 MG Capsule PO (22:03)
[2018-11-26] MEDS: Amitriptyline 100 MG Tablet PO (22:03)
[2018-11-26] MEDS: Doxazosin 4 MG Tablet 8 MG PO (22:03)
[2018-11-26] MEDS: Carvedilol 6.25 MG Tablet PO (22:03)
[2018-11-26] MEDS: Insulin Lispro 100 UNIT/ML INSULN.PEN SC (22:04)
[2018-11-26 22:25] LABS: Bedside Glucose 218 mg/dL (70-110)
[2018-11-27] VITALS (17 sets, daily range): BP systolic 148–168; BP diastolic 59–66; PULSE 77–87; RESP 16–20; TEMP 36.8–37.1; O2SAT 93–96
[2018-11-27 05:39] LABS: Absolute Neutrophil Count 7.8 X10^3/uL (2.0-7.7); Basophil# 0.03 X10^3/uL; Basophil% 0.3 % (0-1); Eosinophil# 0.11 X10^3/uL; Eosinophils% 1.1 % (0-5); Hematocrit 26.1 % (37-47); Hemoglobin 7.9 g/dL (12.0-15.0); Lymphocyte % 10.8 % (19-41); Mean Corp Hgb Conc 30.3 g/dL (32-36); Mean Corpuscular Volume 85.9 fL (81-99); Mean Platelet Vol. 9.9 fl (6.2-12.0); Monocyte# 0.88 X10^3/uL; Monocyte% 8.7 % (0-10); NRBC Flagged by Analyzer 0 % (0-5); Neutrophil # 7.76 X10^3/uL (2.7-7.7); Neutrophil % 76.4 % (47-70); Platelet Count 317 K/mm3 (150-450); RBC Distribution Width CV 16.2 % (11.6-14.6); RBC Distribution Width SD 50.6 fl (35.1-43.9); Red Blood Count 3.04 M/mm3 (4.2-5.4); White Blood Count 10.2 K/mm3 (4.4-11.0)
[2018-11-27 05:50] LABS: Anion Gap 10 (5-15); BUN 60 mg/dL (7-18); BUN/Creat Ratio 28.7 RATIO (10-20); Chloride 100 mmol/L (98-107); Creatinine, Serum 2.09 mg/dL (0.55-1.02); EST Glomerular Filtration Rate 25 mL/min (>60); Est Glom Filt Rate - Afr Amer 30 mL/min (>60); Estimated Creatinine Clearance 19.53 ml/min; Glucose 154 mg/dL (74-106); Magnesium 2.3 mg/dL (1.6-2.6); Potassium 3.7 mmol/L (3.5-5.1); Sodium Level 138 mmol/L (136-145)
[2018-11-27] MEDS: Budesonide Respules 0.5 MG/2 ML AMPUL.NEB. INHALATION ×2 (06:48→18:37)
[2018-11-27] MEDS: Ipratropium/Albuterol Sulfate 3 ML AMPUL.NEB INHALATION ×3 (06:48→18:37)
[2018-11-27 06:51] LABS: Bedside Glucose 143 mg/dL (70-110)
--- NOTE | 2018-11-27 08:45 | EKG12_ITS ---
Test Reason : Blood Pressure : / mmHG Vent. Rate : 081 BPM Atrial Rate : 081 BPM P-R Int : 180 ms QRS Dur : 104 ms QT Int : 398 ms P-R-T Axes : 073 044 061 degrees QTc Int : 462 ms Normal sinus rhythm Possible Left atrial enlargement Nonspecific T wave abnormality Abnormal ECG When compared with ECG of 26-NOV-2018 14:27, MANUAL COMPARISON REQUIRED, DATA IS UNCONFIRMED Confirmed by CAROL DOVE, SUSAN ([id number]), video news editor DENVER KRAUSE ([id number]) on 11/29/2018 10:40:47 A M Referred By: Trent Resendiz Confirmed By:DEANNE MEDINA MD
[2018-11-27] MEDS: Isosorbide Mononitrate 60 MG Tablet PO (09:46)
[2018-11-27] MEDS: Enoxaparin 30 MG/0.3 ML Syringe SC (09:46)
[2018-11-27] MEDS: amLODIPine 10 MG Tablet PO (09:46)
[2018-11-27] MEDS: Carvedilol 6.25 MG Tablet PO ×2 (09:46→21:53)
[2018-11-27] MEDS: Pantoprazole Sodium 40 MG Tablet PO (09:46)
[2018-11-27] MEDS: Aspirin E.C. 81 MG Tablet PO (09:46)
[2018-11-27] MEDS: hydrALAZINE 50 MG Tablet 200 MG PO (09:47)
--- NOTE | 2018-11-27 11:01 | CASEMGMT ---
LW/POA forms both scanned into summary tab of [facility], daughter Janessa Robertson is listed as POA. RENAY Ramirez
[2018-11-27 11:23] LABS: Hemoglobin A1c 7.5 % (4.2-6.3)
[2018-11-27] MEDS: Insulin Lispro 100 UNIT/ML INSULN.PEN SC (12:09)
[2018-11-27] MEDS: Ferrous Sulfate 325 MG Tablet PO ×2 (12:09→16:21)
[2018-11-27 12:10] LABS: Bedside Glucose 161 mg/dL (70-110)
--- NOTE | 2018-11-27 12:39 | CON.PCM_ITS ---
Problem List (1) CKD (chronic kidney disease), stage III Status: Chronic Consultation - Renal 11/27/18 PCP/ Referring MD: Requesting physician: Dr Resendiz Primary care physician: Levi Laird MD Reason for Consultation:: KURT - History of Present Illness History of Present Illness: The patient is a 72 year old F well known to us. History of CKD stage 3 with baseline creatinine around 1.3 to 1.5 or so. History of CHF with preserved EF, Elevated RVSP. last seen in office about 3 weeks ago. this is her second admissions since then essentially with similar complaints. apparently developed nausea, abd discomfort and dyspnea. Initially treated for CHF. currently feels better. - Allergies Allergies: Allergies Penicillins Allergy (Verified 11/26/18 12:58) Hives adhesive tape Adverse Reaction (Verified 11/26/18 12:58) Other - Current Medications Current Medications: Current Medications Acetaminophen (Tylenol) 650 mg PO Q6H PRN PRN PRN Reason: Mild pain 1-3/Temp > 100.7 F Albuterol Sulfate (Ventolin Aerosols) 2.5 mg INHALATION Q4H PRN PRN PRN Reason: SOB/WHEEZING Albuterol/Ipratropium (Duoneb) 3 ml INHALATION Q6HWA.RT [facility] Last Admin: 11/27/18 06:48 Dose: 3 ml Documented by: Amitriptyline HCl (Elavil) 100 mg PO QHS [facility] Last Admin: 11/26/18 22:03 Dose: 100 mg Documented by: Amlodipine Besylate (Norvasc) 10 mg PO DAILY [facility] Last Admin: 11/27/18 09:46 Dose: 10 mg Documented by: Aspirin (Ecotrin) 81 mg PO DAILY@0800 [facility] Last Admin: 11/27/18 09:46 Dose: 81 mg Documented by: Atorvastatin Calcium (Lipitor) 80 mg PO DAILY@2200 [facility] Last Admin: 11/26/18 22:03 Dose: 80 mg Documented by: Budesonide (Pulmicort Aerosol) 0.5 mg INHALATION Q12H.RT [facility] Last Admin: 11/27/18 06:48 Dose: 0.5 mg Documented by: Carvedilol (Coreg) 6.25 mg PO BID [facility] Last Admin: 11/27/18 09:46 Dose: 6.25 mg Documented by: Dextrose (D50w Syringe) 0 gm IV X1 PRN; Protocol PRN Reason: Hypoglycemia Doxazosin Mesylate (Cardura) 8 mg PO QHS [facility] Last Admin: 11/26/18 22:03 Dose: 8 mg Documented by: Enoxaparin Sodium (Lovenox) 30 mg SC DAILY [facility] Last Admin: 11/27/18 09:46 Dose: 30 mg Documented by: Ferrous Sulfate (Ferrous Sulfate) 325 mg PO 1200,1700 [facility] Last Admin: 11/27/18 12:09 Dose: 325 mg Documented by: Gabapentin (Neurontin) 300 mg PO QHS [facility] Last Admin: 11/26/18 22:03 Dose: 300 mg Documented by: Glucagon () 1 mg IM .X1 PRN PRN Reason: Hypoglycemia Guaifenesin (Robitussin) 20 ml PO Q4H PRN PRN PRN Reason: COUGH Hydralazine HCl (Apresoline) 100 mg PO QHS [facility] Last Admin: 11/26/18 22:03 Dose: 100 mg Documented by: Hydralazine HCl (Apresoline) 200 mg PO DAILY [facility] Last Admin: 11/27/18 09:47 Dose: 200 mg Documented by: Sodium Chloride () 250 mls @ 15 mls/hr IV .[id number] PRN PRN Reason: SALINE FLUSH Sodium Chloride () 500 mls @ 15 mls/hr IV .[id number] PRN PRN Reason: SALINE FLUSH Insulin Human Lispro (Humalog Kwikpen (Bkc)) 0 unit SC ACHS [facility]; Protocol Last Admin: 11/27/18 12:09 Dose: 2 u Documented by: Isosorbide Mononitrate (Imdur) 60 mg PO DAILY [facility] Last Admin: 11/27/18 09:46 Dose: 60 mg Documented by: Melatonin (Melatonin) 3 mg PO QHS PRN PRN PRN Reason: INSOMNIA Nitroglycerin (Nitrostat) 0.4 mg SUBLINGUAL Q5M PRN PRN Reason: CARDIAC/CHEST PAIN Pantoprazole Sodium (Protonix) 40 mg PO DAILY [facility] Last Admin: 11/27/18 09:46 Dose: 40 mg Documented by: Potassium Chloride (K-Dur) 20 meq PO DAILY@0800 [facility] Last Admin: 11/27/18 09:46 Dose: 20 meq Documented by: Prochlorperazine Edisylate (Compazine Iv) 5 mg IV Q4H PRN PRN PRN Reason: Breakthrough Nausea/Vomiting Senna/Docusate Sodium (Senokot-S, Cora-Colace) 2 tablet PO BID PRN PRN PRN Reason: Constipation Sodium Chloride () 10 - 40 ml IV UD PRN PRN Reason: SALINE FLUSH - Past Medical History Past Medical History (Chronic Problems): Chronic Problems (Last Updated 11/18/18 @ 14:34 by Sandoval Tong DO) Tricuspid insufficiency (Chronic) Mitral insufficiency (Chronic) ELAINE (obstructive sleep apnea) (Chronic) CKD (chronic kidney disease), stage III (Chronic) Acute exacerbation of CHF (congestive heart failure) (Chronic) [id number] kidney injury (Chronic) 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 Fields Dyslipidemia (Chronic) COPD (chronic obstructive pulmonary disease) (Chronic) Diabetes mellitus type 2 in obese (Chronic) - Past Surgical History Surgical History: appendectomy, cholecystectomy, - - CABG x4, cholecystectomy, appendectomy, left lower extremity vein stripping, tonsillectomy. - Social History Smoking Status: Former smoker - Family History Paternal Family History: Family History (Last Reviewed 11/18/18 @ 14:35 by Sandoval Tong DO) Mother Heart disease History Items: - - Patient notes a paternal family history of chronic COPD with tobacco use, heart disease and diabetes. Maternal Family History: Family History (Last Reviewed 11/18/18 @ 14:35 by Sandoval Tong DO) Mother Heart disease History Items: - - Patient notes a maternal family history of heart disease and diabetes. Review of Systems Constitutional: Denies: Chills, Fever, Weight Change HEENT: Denies: Head Aches, Sinus Congestion, Sinus Drainage Cardiovascular: Denies: Chest Pain, Palpitations Respiratory: Denies: Cough, Shortness of breath at rest, Sputum production Gastrointestinal: Denies: Abdominal Pain, Nausea, Vomiting Genitourinary: Denies: Dysuria Musculoskeletal: Denies: Joint Pain, Joint Tenderness Skin: Denies: Rash, Wounds Neurological: Denies: Numbness, Tingling, Focal weakness Psychiatric: Denies: Anxiety, Depression, Homicidal Ideations, Suicidal Ideations Hematologic/ Lymphatic: Denies: Easy Bruising, Easy Bleeding Patient Problems: Active and Suspected Problems (Last Updated 11/18/18 @ 14:34 by Sandoval Tong DO) Acute kidney injury superimposed on CKD (Acute) - Physical Exam General: Alert, Oriented x3, Cooperative HEENT: Atraumatic, PERRLA, EOMI, Normocephalic Neck: Supple, No JVD, Negative Carotid Bruits Lungs: Clear to auscultation, Normal air movement Cardiovascular: Regular rate, No murmurs Abdomen: Bowel Sounds Present, Soft, Non Tender Extremities: No edema, Capillary Refill Less than 3 Seconds Skin: No rashes, No breakdown Musculoskeletal: No Tenderness to Palpation of Joints or Extremities Neurological: Cranial nerves II-XII grossly intact Psych/Mental Status: Normal Affect, Appropriate Vital Signs Temp Pulse Resp BP Pulse Ox 98.2 F 87 18 148/59 H 93 11/27/18 12:23 11/27/18 12:23 11/27/18 12:23 11/27/18 12:23 11/27/18 12:23 Oxygen Flow Rate (L/min) 3 Oxygen Delivery Method Nasal Cannula Weight: 114.7 kg Body Mass Index (BMI) 46.3 Finger Stick Blood Glucose 155 Intake and Output for Last 24 Hours 11/25/18 11/26/18 11/27/18 23:59 23:59 23:59 Intake Total 208.7 / 208.7 573.57 / 573.57 Output Total 200 / 200 700 / 700 Balance 8.7 / 8.7 -126.43 / -126.43 Laboratory Tests Past 24 Hrs 11/26/18 11/26/18 11/26/18 13:40 13:40 13:40 WBC 12.3 H RBC 3.17 L Hgb 8.4 L Hct 27.3 L MCV 86.1 MCH 26.5 L MCHC 30.8 L RDW Std Deviation 50.0 H RDW Coeff of Becca 16.1 H Plt Count 324 MPV 10.1 Immature Gran % (Auto) 3.300 H Neut % (Auto) 83.8 H Lymph % (Auto) 5.9 L Mcdonald % (Auto) 5.5 Eos % (Auto) 1.0 Baso % (Auto) 0.5 Absolute Neuts (auto) 10.3 H Absolute Lymphs (auto) 0.73 L Nucleated RBC % 0 PT 14.8 INR 1.2 Sodium 133 L Potassium 4.1 Chloride 98 Carbon Dioxide 29.0 Anion Gap 6 BUN 57 H Creatinine 2.13 H Estim Creat Clear Calc 19.16 Est GFR (MDRD) Af Amer 29 L Est GFR (MDRD) Non-Af 24 L BUN/Creatinine Ratio 26.8 H Glucose 219 H Hemoglobin A1c Calcium 8.7 Magnesium Total Bilirubin 0.50 AST 49 H ALT 47 Alkaline Phosphatase 226 H Troponin I < 0.015 B-Natriuretic Peptide Total Protein 7.0 Albumin 3.4 Globulin 3.6 Albumin/Globulin Ratio 0.9 11/26/18 11/26/18 11/26/18 13:40 17:51 20:53 WBC RBC Hgb Hct MCV MCH MCHC RDW Std Deviation RDW Coeff of Becca Plt Count MPV Immature Gran % (Auto) Neut % (Auto) Lymph % (Auto) Mcdonald % (Auto) Eos % (Auto) Baso % (Auto) Absolute Neuts (auto) Absolute Lymphs (auto) Nucleated RBC % PT INR Sodium Potassium Chloride Carbon Dioxide Anion Gap BUN Creatinine Estim Creat Clear Calc Est GFR (MDRD) Af Amer Est GFR (MDRD) Non-Af BUN/Creatinine Ratio Glucose Hemoglobin A1c Calcium Magnesium Total Bilirubin AST ALT Alkaline Phosphatase Troponin I < 0.015 < 0.015 B-Natriuretic Peptide 344.8 H Total Protein Albumin Globulin Albumin/Globulin Ratio 11/27/18 11/27/18 11/27/18 05:10 05:10 05:10 WBC 10.2 RBC 3.04 L Hgb 7.9 L Hct 26.1 L MCV 85.9 MCH 26.0 L MCHC 30.3 L RDW Std Deviation 50.6 H RDW Coeff of Becca 16.2 H Plt Count 317 MPV 9.9 Immature Gran % (Auto) 2.700 H Neut % (Auto) 76.4 H Lymph % (Auto) 10.8 L Mcdonald % (Auto) 8.7 Eos % (Auto) 1.1 Baso % (Auto) 0.3 Absolute Neuts (auto) 7.8 H Absolute Lymphs (auto) 1.10 Nucleated RBC % 0 PT INR Sodium 138 Potassium 3.7 Chloride 100 Carbon Dioxide 28.0 Anion Gap 10 BUN 60 H Creatinine 2.09 H Estim Creat Clear Calc 19.53 Est GFR (MDRD) Af Amer 30 L Est GFR (MDRD) Non-Af 25 L BUN/Creatinine Ratio 28.7 H Glucose 154 H Hemoglobin A1c 7.5 H Calcium 9.0 Magnesium 2.3 Total Bilirubin AST ALT Alkaline Phosphatase Troponin I B-Natriuretic Peptide Total Protein Albumin Globulin Albumin/Globulin Ratio POC Glucose 11/27/18 11/27/18 11/26/18 11:49 06:27 22:01 POC Glucose 161 H 143 H 218 H Assessment/Plan All Active Problems (Last Updated 11/18/18 @ 14:34 by Sandoval Tong DO) Acute respiratory failure with hypoxia (Acute) (HFpEF) heart failure with preserved ejection fraction (Acute) Acute kidney injury superimposed on CKD (Acute) KURT CKD 3 Baseline creatinine is around 1.3. she had several fluctuations in creatinine over the last [address] abd without hydronephrosis clinically volume status is ok. lungs are clear, some peripheral edema which is chronic weight is documented 253. last office weight was 246. not sure how accurate scales are ok to dc bumex drip and switch to po lasix/bumex edwin Tracy
--- NOTE | 2018-11-27 12:50 | PCM.PROGNOTE ---
<Tutu Arevalo - Last Filed: 11/27/18 12:50> Subjective: Ongoing peripheral edema. Pt needs to elevate legs and nicolas wrap at home. Does not like to nicolas wrap. Weight is up 3 lbs since discharge. She was doing well at home, compliant with bipap and carefully watching her diet with the help of her daughter, but suddenly became worse yesterday. She complains of pressure in her chest worse with coughing. Non productive cough. No fever/ chills. - Physical Exam General: Alert, Oriented x3, Cooperative HEENT: Atraumatic, PERRLA, EOMI, Normocephalic Neck: Supple, No JVD, Negative Carotid Bruits Lungs: Diminished Cardiovascular: Regular rate, No murmurs, Murmur - 2/6 systolic murmur best heard at 2nd IC space LSB Abdomen: Bowel Sounds Present, Soft, Non Tender Extremities: Capillary Refill Less than 3 Seconds, Edema - 2+ pitting edema BLE up to knees Skin: No rashes, No breakdown, - - left breast hematoma, hematoma on abdomen right lower quadrant Musculoskeletal: No Tenderness to Palpation of Joints or Extremities Neurological: Cranial nerves II-XII grossly intact Psych/Mental Status: Normal Affect, Appropriate, Alert and oriented to time, place, person, mood and affect Vital Signs Temp Pulse Resp BP Pulse Ox 98.2 F 87 18 148/59 H 93 11/27/18 12:23 11/27/18 12:23 11/27/18 12:23 11/27/18 12:23 11/27/18 12:23 Oxygen Flow Rate (L/min) 3 Oxygen Delivery Method Nasal Cannula Weight: 252 lb 13.923 oz Body Mass Index (BMI) 46.3 Finger Stick Blood Glucose 155 Intake and Output for Last 24 Hours 11/25/18 11/26/18 11/27/18 23:59 23:59 23:59 Intake Total 208.7 / 208.7 573.57 / 573.57 Output Total 200 / 200 700 / 700 Balance 8.7 / 8.7 -126.43 / -126.43 Laboratory Tests Past 24 Hrs 11/26/18 11/26/18 11/26/18 13:40 13:40 13:40 WBC 12.3 H RBC 3.17 L Hgb 8.4 L Hct 27.3 L MCV 86.1 MCH 26.5 L MCHC 30.8 L RDW Std Deviation 50.0 H RDW Coeff of Becca 16.1 H Plt Count 324 MPV 10.1 Immature Gran % (Auto) 3.300 H Neut % (Auto) 83.8 H Lymph % (Auto) 5.9 L Butler % (Auto) 5.5 Eos % (Auto) 1.0 Baso % (Auto) 0.5 Absolute Neuts (auto) 10.3 H Absolute Lymphs (auto) 0.73 L Nucleated RBC % 0 PT 14.8 INR 1.2 Sodium 133 L Potassium 4.1 Chloride 98 Carbon Dioxide 29.0 Anion Gap 6 BUN 57 H Creatinine 2.13 H Estim Creat Clear Calc 19.16 Est GFR (MDRD) Af Amer 29 L Est GFR (MDRD) Non-Af 24 L BUN/Creatinine Ratio 26.8 H Glucose 219 H Hemoglobin A1c Calcium 8.7 Magnesium Total Bilirubin 0.50 AST 49 H ALT 47 Alkaline Phosphatase 226 H Troponin I < 0.015 B-Natriuretic Peptide Total Protein 7.0 Albumin 3.4 Globulin 3.6 Albumin/Globulin Ratio 0.9 11/26/18 11/26/18 11/26/18 13:40 17:51 20:53 WBC RBC Hgb Hct MCV MCH MCHC RDW Std Deviation RDW Coeff of Becca Plt Count MPV Immature Gran % (Auto) Neut % (Auto) Lymph % (Auto) [place] % (Auto) Eos % (Auto) Baso % (Auto) Absolute Neuts (auto) Absolute Lymphs (auto) Nucleated RBC % PT INR Sodium Potassium Chloride Carbon Dioxide Anion Gap BUN Creatinine Estim Creat Clear Calc Est GFR (MDRD) Af Amer Est GFR (MDRD) Non-Af BUN/Creatinine Ratio Glucose Hemoglobin A1c Calcium Magnesium Total Bilirubin AST ALT Alkaline Phosphatase Troponin I < 0.015 < 0.015 B-Natriuretic Peptide 344.8 H Total Protein Albumin Globulin Albumin/Globulin Ratio 11/27/18 11/27/18 11/27/18 05:10 05:10 05:10 WBC 10.2 RBC 3.04 L Hgb 7.9 L Hct 26.1 L MCV 85.9 MCH 26.0 L MCHC 30.3 L RDW Std Deviation 50.6 H RDW Coeff of Becca 16.2 H Plt Count 317 MPV 9.9 Immature Gran % (Auto) 2.700 H Neut % (Auto) 76.4 H Lymph % (Auto) 10.8 L Butler % (Auto) 8.7 Eos % (Auto) 1.1 Baso % (Auto) 0.3 Absolute Neuts (auto) 7.8 H Absolute Lymphs (auto) 1.10 Nucleated RBC % 0 PT INR Sodium 138 Potassium 3.7 Chloride 100 Carbon Dioxide 28.0 Anion Gap 10 BUN 60 H Creatinine 2.09 H Estim Creat Clear Calc 19.53 Est GFR (MDRD) Af Amer 30 L Est GFR (MDRD) Non-Af 25 L BUN/Creatinine Ratio 28.7 H Glucose 154 H Hemoglobin A1c 7.5 H Calcium 9.0 Magnesium 2.3 Total Bilirubin AST ALT Alkaline Phosphatase Troponin I B-Natriuretic Peptide Total Protein Albumin Globulin Albumin/Globulin Ratio POC Glucose 11/27/18 11/27/18 11/26/18 11:49 06:27 22:01 POC Glucose 161 H 143 H 218 H Medical Necessity - Tobacco Use Smoking Status: Former smoker Assessment/Plan All Active Problems (Last Reviewed 12/03/18 @ 10:40 by Eusebia Ramirez PA-C) Congestive heart failure (Acute) Acute renal failure (Acute) Abdominal pain (Acute) Acute renal failure superimposed on stage 3 chronic kidney disease (Acute) Acute respiratory failure with hypoxia (Ruled-out) 1. KURT on CKD IV - clinically appears dry with dry mucus membranes. Bumex stopped. NICOLAS wrap legs. Elevate when at rest. Fluid/sodium restrict. Daily weights, I/Os. Trop negx3, EKG reviewed no acute changes, tele reviewed NSR no events. 2. Acute diastolic CHF exacerbation - ruled out. Resume prior lasix dose. 3. COPD - ruled out. pt does not have COPD per last admission. Recently on steroids accounting for initial leukocytosis. 4. Pulmonary HTN - continue home lasix 5. ELAINE - CPAP qhs. Probably OHS as she is morbidly obese. She would benefit from a repeat PSG if she has not had one recently. 6. CAD - prior CABG. Coreg, imdur, asa, statin, 7. DMt2 with morbid obesity - metformin held for KURT. SSI. A1C 7.5. Only takes metformin 500 once daily at home. 8. Iron def anemia - PO iron. Stable. 9. GERD/gastritis - PPI. DVT ppx: lovenox DC planning: PTOT. This patient was seen by Tutu Arevalo PA-C under the supervision of Dr. Tracy. <InocentezeldaElba - Last Filed: 12/17/18 09:27> - Physical Exam Vital Signs Temp Pulse Resp BP Pulse Ox 98.5 F 79 18 150/70 H 96 11/28/18 09:45 11/28/18 13:12 11/28/18 13:12 11/28/18 09:45 11/28/18 13:12 Oxygen Flow Rate (L/min) 2 Oxygen Delivery Method Nasal Cannula Weight: 250 lb 10.649 oz Body Mass Index (BMI) 46.3 Finger Stick Blood Glucose 155 Assessment/Plan The patient was seen at the same time as Tutu and we interviewed and examined together. She was recently admitted to the hospital for diastolic CHF. She presents again with c/o SOB and leg swelling. She is compliant with diuretics but still has peripeheral edema and SOB. She is morbidly obese and sedentary. She sits in a chair with her legs dependent and she does not use compressions. She will not elevate her legs. She has venous insufficiency. MM are very dry and she has minimal edema of the LE's since elevated. there is wrinkling of the skin. There was a prolonged discussion of the importance of compressions and elevation of the legs when sitting. Also weight loss was encouraged and an exercise program. She was instructed to pump her feet when sitting in a chair. Her dtr-in-law seems to understand but, I am afraid the pt will continue to do what suits her. This will be a recurrent problem. The SOB is not going to improve since she is morbidly obese, sedentary and with ELAINE(no recent sleep study and she continues to gain wt. Pressures are not likely adequate. I 3 lb weight difference is not likely to cause her to decompensate....I suspect she is at baseline. Discussed with Tutu and orders have been written. Code Visit Inpatient E&M: 48806 Subs Hosp L2
[2018-11-27 16:56] LABS: Bedside Glucose 135 mg/dL (70-110)
[2018-11-27] MEDS: Amitriptyline 100 MG Tablet PO (21:53)
[2018-11-27] MEDS: Doxazosin 4 MG Tablet 8 MG PO (21:53)
[2018-11-27] MEDS: hydrALAZINE 50 MG Tablet 100 MG PO (21:53)
[2018-11-27] MEDS: Gabapentin 300 MG Capsule PO (21:54)
[2018-11-27] MEDS: Atorvastatin Calcium 80 MG Tablet PO (21:54)
[2018-11-27 22:30] LABS: Bedside Glucose 135 mg/dL (70-110)
--- NOTE | 2018-11-28 00:16 | CPS ---
PATIENT HAS HOME CPAP MACHINE. RT SETUP, AND FILLED WITH STERILE WATER. MASK FITTED WITH NO ADVERSE REACTION.
[2018-11-28 03:00] VITALS: PULSE 72
[2018-11-28 03:45] VITALS: BP 158/64; PULSE 71; RESP 18; TEMP 37.1; O2SAT 94
[2018-11-28 06:14] LABS: Absolute Lymphocyte Count 1.07 X10^3/uL (0.83-4.51); Absolute Neutrophil Count 7.7 X10^3/uL (2.0-7.7); Basophil# 0.06 X10^3/uL; Basophil% 0.6 % (0-1); Eosinophil# 0.19 X10^3/uL; Eosinophils% 1.8 % (0-5); Hematocrit 27.5 % (37-47); Hemoglobin 8.4 g/dL (12.0-15.0); Lymphocyte # 1.07 X10^3/ul (4.0); Lymphocyte % 10.3 % (19-41); Mean Corp Hgb Conc 30.5 g/dL (32-36); Mean Corpuscular Hgb 26.4 pg (27.0-32.0); Mean Corpuscular Volume 86.5 fL (81-99); Mean Platelet Vol. 9.7 fl (6.2-12.0); Monocyte# 0.85 X10^3/uL; Monocyte% 8.2 % (0-10); NRBC Flagged by Analyzer 0 % (0-5); Neutrophil # 7.71 X10^3/uL (2.7-7.7); Neutrophil % 74.7 % (47-70); Platelet Count 301 K/mm3 (150-450); RBC Distribution Width CV 16.3 % (11.6-14.6); Red Blood Count 3.18 M/mm3 (4.2-5.4); White Blood Count 10.3 K/mm3 (4.4-11.0)
[2018-11-28 06:28] LABS: Anion Gap 6 (5-15); BUN 56 mg/dL (7-18); BUN/Creat Ratio 27.7 RATIO (10-20); Calcium,Total 8.6 mg/dL (8.5-10.1); Chloride 101 mmol/L (98-107); Creatinine, Serum 2.02 mg/dL (0.55-1.02); EST Glomerular Filtration Rate 26 mL/min (>60); Est Glom Filt Rate - Afr Amer 31 mL/min (>60); Glucose 125 mg/dL (74-106); Potassium 3.5 mmol/L (3.5-5.1); Sodium Level 136 mmol/L (136-145)
[2018-11-28 06:51] LABS: Bedside Glucose 128 mg/dL (70-110)
[2018-11-28 07:15] VITALS: PULSE 68
[2018-11-28] MEDS: Aspirin E.C. 81 MG Tablet PO (09:40)
[2018-11-28 09:41] VITALS: PULSE 78
[2018-11-28] MEDS: Calcium Carbonate 500 MG Tablet PO (09:41)
[2018-11-28] MEDS: Carvedilol 6.25 MG Tablet PO (09:41)
[2018-11-28] MEDS: hydrALAZINE 50 MG Tablet 200 MG PO (09:41)
[2018-11-28] MEDS: amLODIPine 10 MG Tablet PO (09:42)
[2018-11-28] MEDS: Pantoprazole Sodium 40 MG Tablet PO (09:42)
[2018-11-28] MEDS: Enoxaparin 30 MG/0.3 ML Syringe SC (09:42)
[2018-11-28] MEDS: Isosorbide Mononitrate 60 MG Tablet PO (09:42)
[2018-11-28 09:45] VITALS: BP 150/70; PULSE 76; RESP 18; TEMP 36.9; O2SAT 94
--- NOTE | 2018-11-28 10:38 | CASEMGMT ---
SW spoke with patient and her son in law. SW explained Palliative Care to them and gave them the pamphlet. Patient wanted to talk with her doctor and family about it. Josie GREENWOOD MSW
[2018-11-28] MEDS: Insulin Lispro 100 UNIT/ML INSULN.PEN SC (11:25)
--- NOTE | 2018-11-28 11:28 | CASEMGMT ---
Readmission chart review: Pt was initially admitted 11/18-11/22/18 for COPD, CHF, dyspnea and was discharged home with daughter, Doris, who she lives with. Pt is already on 2-2.5liters home oxygen thru [employer] and has Cpap as well. Pt returned to ED 08/26/18 for SOB and 'fluid in lungs' and was admitted for CHF, KURT on CKD. Pt states 8lb weight gain since the sunday before. Pt states she was taking her 80 mg lasix twice daily. CM to follow PT/OT and for any increased need in home oxygen. SStaten RN CM
[2018-11-28 11:31] LABS: Bedside Glucose 167 mg/dL (70-110)
[2018-11-28] MEDS: Ferrous Sulfate 325 MG Tablet PO (11:48)
--- NOTE | 2018-11-28 11:52 | PN.RENAL_ITS ---
Patient Problems: Active and Suspected Problems (Last Updated 11/18/18 @ 14:34 by Sandoval Tong DO) Acute kidney injury superimposed on CKD (Acute) Subjective: No new complaints Asking to go home breathing is back to baseline - Physical Exam General: Alert, Oriented x3, Cooperative HEENT: Atraumatic, PERRLA, EOMI, Normocephalic Neck: Supple, No JVD, Negative Carotid Bruits Lungs: Clear to auscultation, Normal air movement Cardiovascular: Regular rate, No murmurs Abdomen: Bowel Sounds Present, Soft, Non Tender Extremities: No edema, Capillary Refill Less than 3 Seconds Skin: No rashes, No breakdown Musculoskeletal: No Tenderness to Palpation of Joints or Extremities Neurological: Cranial nerves II-XII grossly intact Psych/Mental Status: Normal Affect, Appropriate Vital Signs Temp Pulse Resp BP Pulse Ox 98.7 F 78 18 158/64 H 94 11/28/18 03:45 11/28/18 09:41 11/28/18 03:45 11/28/18 03:45 11/28/18 03:45 Oxygen Flow Rate (L/min) 3 Oxygen Delivery Method Bi-pap Weight: 113.7 kg Body Mass Index (BMI) 46.3 Finger Stick Blood Glucose 155 Intake and Output for Last 24 Hours 11/26/18 11/27/18 11/28/18 23:59 23:59 23:59 Intake Total 208.7 / 208.7 1493.57 / 1493.57 Output Total 200 / 200 1300 / 1300 Balance 8.7 / 8.7 193.57 / 193.57 Laboratory Tests Past 24 Hrs 11/28/18 11/28/18 06:00 06:00 WBC 10.3 RBC 3.18 L Hgb 8.4 L Hct 27.5 L MCV 86.5 MCH 26.4 L MCHC 30.5 L RDW Std Deviation 51.0 H RDW Coeff of Becca 16.3 H Plt Count 301 MPV 9.7 Immature Gran % (Auto) 4.400 H Neut % (Auto) 74.7 H Lymph % (Auto) 10.3 L [place] % (Auto) 8.2 Eos % (Auto) 1.8 Baso % (Auto) 0.6 Absolute Neuts (auto) 7.7 Absolute Lymphs (auto) 1.07 Nucleated RBC % 0 Sodium 136 Potassium 3.5 Chloride 101 Carbon Dioxide 29.0 Anion Gap 6 BUN 56 H Creatinine 2.02 H Estim Creat Clear Calc 20.20 Est GFR (MDRD) Af Amer 31 L Est GFR (MDRD) Non-Af 26 L BUN/Creatinine Ratio 27.7 H Glucose 125 H Calcium 8.6 POC Glucose 11/28/18 11/28/18 11/27/18 11:23 06:45 21:40 POC Glucose 167 H 128 H 135 H 11/27/18 11/27/18 16:19 11:49 POC Glucose 135 H 161 H Medical Necessity - Tobacco Use Smoking Status: Former smoker Assessment/Plan All Active Problems (Last Updated 11/18/18 @ 14:34 by Sandoval Tong, ) Acute respiratory failure with hypoxia (Acute) (HFpEF) heart failure with preserved ejection fraction (Acute) Acute kidney injury superimposed on CKD (Acute) KURT CKD 3 Baseline creatinine is around 1.3. she had several fluctuations in creatinine over the last [address] abd without hydronephrosis clinically volume status is ok. lungs are clear, some peripheral edema which is chronic Wants to go home. ok from renal standpoint says baseline weight at home is around 240 lbs. would change home dose of diuretics to bumex 2 mg BID. metolazone 5 mg once a day with KCL 20 meq daily for 4 lb weight gain hold bumex if weight is below 234 lbs. will arrange follow up in 2 weeks after dc Anemia. recently saw Dr Bell HTN. She was supposed to be on losartan as per my last office notes but its on hold now. will reassess in office
[2018-11-28] MEDS: Ipratropium/Albuterol Sulfate 3 ML AMPUL.NEB INHALATION (13:11)
[2018-11-28 13:12] VITALS: PULSE 79; RESP 18; O2SAT 96
[2018-11-28] MEDS: Budesonide Respules 0.5 MG/2 ML AMPUL.NEB. INHALATION (13:12)
--- NOTE | 2018-11-28 13:55 | DCINST_ITS ---
- Discharge Diagnoses Current Active Problems: Current Active and Chronic Problems (Last Updated 11/18/18 @ 14:34 by Sandoval Tong DO) Acute exacerbation of CHF (congestive heart failure) (Chronic) Acute kidney injury superimposed on CKD (Acute) [id number] kidney injury (Chronic) You will use the following diet at home:: Calorie/Carbohydrate Controlled (specify 1200, 1400, etc), Cardiac, Other - Resume previous diet Your food should be the consistency of: Regular Your liquids should be the consistency of: Regular/Thin Discharge Activity: Return to Normal Activity, - - It is always a good idea to get up and walk every 1-2 hours to help mobilize the fluid in the legs Weight Bearing Status: Full weight bearing Keep extremity elevated above heart level: Legs - when sitting in a chair Call your doctor if you observe: Fever of 101 or Higher, Shortness of breath, Dizziness, Fainting spells, Chest pain, Increased palpitations (irregular heartbeat) Additional Instructions: 1. You will always have swelling in your legs and it is due to your weight, varicose veins and the high blood pressure in your lungs. When your legs are always hanging down when you are sitting in a chair the legs will swell even more and your weight will go up and make it harder for you to breath. The way to keep the swelling down in the legs is to elevate your legs when you are sitting in a chair, wear the NICOLAS wraps from the time you get up in the morning until when you go to bed at night and when you are sitting in a chair pump your feet to make the muscles in the calf contract and move fluid. If you could lose some weight it would help your breathing. Weigh yourself every day and record it. If your weight increases by 4 lbs take the Zaroxolyn once a day until your weight is back to baseline. If your weight drops below 234 lbs HOLD the Bumex until your weight is above 234 lbs. Follow up with Dr. Bell for the anemia. You were not in heart failure when you came to the hospital this time.....you were actually a little dehydrated. Pending Tests on Discharge: none Allergies/Adverse Reactions: Allergies Penicillins Allergy (Verified 11/26/18 12:58) Hives adhesive tape Adverse Reaction (Verified 11/26/18 12:58) Other Medications to take at Discharge Amitriptyline HCl [Elavil] 100 mg PO QHS 04/09/13 Aspirin E.C. [Ecotrin] 81 mg PO DAILY 10/25/17 Atorvastatin Calcium 80 mg PO DAILY 10/25/17 Gabapentin [Neurontin] 300 mg PO QHS 10/25/17 Amlodipine Besylate 10 mg PO DAILY 06/01/18 Ferrous Sulfate 325 mg PO 1200,1700 #120 tab 07/09/18 Potassium Chloride 20 meq PO DAILY #60 tab.er.prt 07/09/18 carvedilol 6.25 mg tablet 6.25 mg PO BID #60 tab 07/31/18 isosorbide mononitrate ER 60 mg tablet,extended release 24 hr 60 mg PO DAILY #60 tab 07/31/18 Albuterol Sulfate 1.25 mg IH 4X/DAY 08/20/18 Doxazosin Mesylate 8 mg PO QHS 08/20/18 Hydralazine HCl 200 mg PO DAILY 08/20/18 Omeprazole 40 mg PO DAILY 08/20/18 budesonide-formoterol HFA 160 mcg-4.5 mcg/actuation aerosol inhaler 2 puff INHALATION BID #1 ea 09/25/18 tiotropium 2.5 mcg-olodaterol 2.5 mcg/actuation mist for inhalation 2 puff INHALATION DAILY #4 g 10/28/18 Hydralazine HCl 100 mg PO QHS 11/26/18 Bumetanide [Bumex] 2 mg NG DAILY #30 tab 11/28/18 Glimepiride [Amaryl] 1 mg PO DAILY #30 tab 11/28/18 Metolazone [Zaroxolyn] 5 mg PO DAILY #15 tab 11/28/18 Pantoprazole Sodium [Protonix] 40 mg PO DAILY #14 tab 11/28/18 The following prescriptions were given: Glimepiride [Amaryl] 1 mg PO DAILY #30 tab Transmission Status: Pending to [id number] Bumetanide [Bumex] 2 mg NG DAILY #30 tab Transmission Status: Pending to [id number] Pantoprazole Sodium [Protonix] 40 mg PO DAILY #14 tab Transmission Status: Pending to [id number] Metolazone [Zaroxolyn] 5 mg PO DAILY #15 tab Transmission Status: Pending to [id number] Primary Care Physician: Levi Laird MD [Primary Care Provider] - Please follow up with your Primary Care Physician in: 1 week Test Results: Test results from this visit will be discussed in further detail at your follow- up appointment, if applicable. Please Follow Up With: Evert Waite MD When: 2 weeks Proposed Discharge Date: 11/28/18
--- NOTE | 2018-11-28 14:23 | DS.PCM_ITS ---
Discharge Date and Diagnosis - Problem List Patient Problems: Active and Suspected Problems (Last Updated 11/18/18 @ 14:34 by Sandoval Tong DO) Congestive heart failure (Acute) Date of Admission: 11/26/18 Date of Discharge: 11/28/18 - Primary Discharge Diagnosis Active and Suspected Problems (Last Updated 11/18/18 @ 14:34 by Sandoval Tong DO) Acute CHF - ruled out Dehydration - LE edema was due to Pulmonary HTN and non-compliance with elevation and compressions Acute renal failure superimposed on stage 3 chronic kidney disease (Acute) - due to dehydration Abdominal pain (Acute) Gastritis (Suspected) - Secondary Discharge Diagnosis Chronic Problems (Last Updated 11/18/18 @ 14:34 by Sandoval Tong DO) Iron deficiency anemia (Chronic) Tricuspid insufficiency (Chronic) Mitral insufficiency (Chronic) ELAINE (obstructive sleep apnea) (Chronic) CKD (chronic kidney disease), stage III (Chronic) Atherosclerotic heart disease of [place] coronary artery without angina pectoris (Chronic) NATHAN to the LAD, and SVG to the diagonal branch, and SVG to the LCx system, and an SVG to the RCA on 04/16/2013 at [facility] with Dr. 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 Fields Dyslipidemia (Chronic) COPD (chronic obstructive pulmonary disease) (Chronic) Diabetes mellitus type 2 in obese (Chronic) venous insufficiency Hospital Course and Treatment Imaging Results: Clinical Impression(s) from Imaging Studies Chest X-Ray 11/26/18 14:15 IMPRESSION: Mild pulmonary vascular congestion/CHF Electronically Signed: Mike Toussiant DO at 14:47 EDT Tel , Service support , Laboratory Results - last 24 hr 11/27/18 11/27/18 11/28/18 16:19 21:40 06:00 WBC 10.3 RBC 3.18 L Hgb 8.4 L Hct 27.5 L MCV 86.5 MCH 26.4 L MCHC 30.5 L RDW Std Deviation 51.0 H RDW Coeff of Becca 16.3 H Plt Count 301 MPV 9.7 Immature Gran % (Auto) 4.400 H Neut % (Auto) 74.7 H Lymph % (Auto) 10.3 L [place] % (Auto) 8.2 Eos % (Auto) 1.8 Baso % (Auto) 0.6 Absolute Neuts (auto) 7.7 Absolute Lymphs (auto) 1.07 Nucleated RBC % 0 Sodium Potassium Chloride Carbon Dioxide Anion Gap BUN Creatinine Estim Creat Clear Calc Est GFR (MDRD) Af Amer Est GFR (MDRD) Non-Af BUN/Creatinine Ratio Glucose Calcium POC Glucose 135 H 135 H 11/28/18 11/28/18 11/28/18 06:00 06:45 11:23 WBC RBC Hgb Hct MCV MCH MCHC RDW Std Deviation RDW Coeff of Becca Plt Count MPV Immature Gran % (Auto) Neut % (Auto) Lymph % (Auto) [place] % (Auto) Eos % (Auto) Baso % (Auto) Absolute Neuts (auto) Absolute Lymphs (auto) Nucleated RBC % Sodium 136 Potassium 3.5 Chloride 101 Carbon Dioxide 29.0 Anion Gap 6 BUN 56 H Creatinine 2.02 H Estim Creat Clear Calc 20.20 Est GFR (MDRD) Af Amer 31 L Est GFR (MDRD) Non-Af 26 L BUN/Creatinine Ratio 27.7 H Glucose 125 H Calcium 8.6 POC Glucose [address] Nugent nephrology Operations: None Procedures: None Summary of Care Provided: The patient is a 72 year old F with a past medical history of chronic systolic congestive heart failure with frequent exacerbations who was discharged from [facility] on 11/22/2018 on 2 L of oxygen who came back to the emergency room on 11/26/2018 complaining of shortness of breath and a weight gain of 8 pounds since discharge. She also stated that she was not able to urinate even though her Lasix had been increased to 80 mg twice daily during the preceding admission. She denied chest pain. She did complain of a dry cough. She admitted that she did not use compression stockings at home nor did she use [place] wraps. She sits in a chair most of the day with her legs dependent. Her weight had increased 3 pounds since discharge. She was compliant with BiPAP at home. Kidney function had declined in the time that she went home and her crea tinine was 2.13, up from 1.75 at discharge. Sodium was 133 and the H&H was stable. Her EKG showed normal sinus rhythm with no suspicious ST or T wave changes. Chest x-ray was unchanged from her previous x-ray. She was admitted to a monitored bed and started on a Bumex infusion. Fluids were restricted to 1500 cc daily. On 11/27/2018 her lungs were diminished but clear to auscultation. She had 2+ pitting edema of the lower extremities to her knees. She was not tachypneic and had no conversational dyspnea. The edema had improved overnight with just elevation of the legs. the Bumex was discontinued and she was restarted on PO Lasix. Dr. Waite was consulted. He agreed with PO diuretics. The patient and her family were educated with regard to the importance of elevating her legs when she is seated in a chair and using compression wraps or stockings to control edema and this morbidly obese patient with chronic venous insufficiency and pulmonary HTN. On 11/28/2018 she was requesting to go home. She stated her breathing was back to baseline. She had no edema of her lower extremities and she was lying in bed with her legs elevated. Lungs were clear to auscultation. She was discharged home On Bumex 2 mg p.o. daily. If her weight increases by 4 pounds she will take Zaroxolyn once daily until the weight is back to baseline. If her weight drops below 234 pounds she will discontinue Bumex until her weight is above 234 pounds. She will follow-up with Dr. Bell for anemia, Dr. Waite in 2 weeks for CRF and with Dr. Laird in 1 week. This note was generated with [employer] dictation software. It may contain incorrect words, spelling, and punctuation that were not noted in checking the note before signing. Patient Problems: Active and Suspected Problems (Last Updated 11/18/18 @ 14:34 by Sandoval Tong DO) Congestive heart failure (Acute) - Physical Exam Vital Signs Temp Pulse Resp BP Pulse Ox 98.5 F 79 18 150/70 H 96 11/28/18 09:45 11/28/18 13:12 11/28/18 13:12 11/28/18 09:45 11/28/18 13:12 Oxygen Flow Rate (L/min) 2 Oxygen Delivery Method Nasal Cannula Weight: 250 lb 10.649 oz Body Mass Index (BMI) 46.3 Finger Stick Blood Glucose 155 Intake and Output for Last 24 Hours 11/26/18 11/27/18 11/28/18 23:59 23:59 23:59 Intake Total 208.7 / 208.7 1493.57 / 1493.57 500 / 500 Output Total 200 / 200 1300 / 1300 Balance 8.7 / 8.7 193.57 / 193.57 500 / 500 Laboratory Tests Past 24 Hrs 11/28/18 11/28/18 06:00 06:00 WBC 10.3 RBC 3.18 L Hgb 8.4 L Hct 27.5 L MCV 86.5 MCH 26.4 L MCHC 30.5 L RDW Std Deviation 51.0 H RDW Coeff of Becca 16.3 H Plt Count 301 MPV 9.7 Immature Gran % (Auto) 4.400 H Neut % (Auto) 74.7 H Lymph % (Auto) 10.3 L [place] % (Auto) 8.2 Eos % (Auto) 1.8 Baso % (Auto) 0.6 Absolute Neuts (auto) 7.7 Absolute Lymphs (auto) 1.07 Nucleated RBC % 0 Sodium 136 Potassium 3.5 Chloride 101 Carbon Dioxide 29.0 Anion Gap 6 BUN 56 H Creatinine 2.02 H Estim Creat Clear Calc 20.20 Est GFR (MDRD) Af Amer 31 L Est GFR (MDRD) Non-Af 26 L BUN/Creatinine Ratio 27.7 H Glucose 125 H Calcium 8.6 POC Glucose 11/28/18 11/28/18 11/27/18 11:23 06:45 21:40 POC Glucose 167 H 128 H 135 H 11/27/18 16:19 POC Glucose 135 H Discharge Activity: Return to Normal Activity, - - It is always a good idea to get up and walk every 1-2 hours to help mobilize the fluid in the legs Weight Bearing Status: Full weight bearing Keep extremity elevated above heart level: Legs - when sitting in a chair Call your doctor if you observe: Fever of 101 or Higher, Shortness of breath, Dizziness, Fainting spells, Chest pain, Increased palpitations (irregular heartbeat) Home Medications: Medications to take at Discharge Amitriptyline HCl [Elavil] 100 mg PO QHS 04/09/13 Aspirin E.C. [Ecotrin] 81 mg PO DAILY 10/25/17 Atorvastatin Calcium 80 mg PO DAILY 10/25/17 Gabapentin [Neurontin] 300 mg PO QHS 10/25/17 Amlodipine Besylate 10 mg PO DAILY 06/01/18 Ferrous Sulfate 325 mg PO 1200,1700 #120 tab 07/09/18 Potassium Chloride 20 meq PO DAILY #60 tab.er.prt 07/09/18 carvedilol 6.25 mg tablet 6.25 mg PO BID #60 tab 07/31/18 isosorbide mononitrate ER 60 mg tablet,extended release 24 hr 60 mg PO DAILY #60 tab 07/31/18 Albuterol Sulfate 1.25 mg IH 4X/DAY 08/20/18 Doxazosin Mesylate 8 mg PO QHS 08/20/18 Hydralazine HCl 200 mg PO DAILY 08/20/18 Omeprazole 40 mg PO DAILY 08/20/18 budesonide-formoterol HFA 160 mcg-4.5 mcg/actuation aerosol inhaler 2 puff INHALATION BID #1 ea 09/25/18 tiotropium 2.5 mcg-olodaterol 2.5 mcg/actuation mist for inhalation 2 puff INHALATION DAILY #4 g 10/28/18 Hydralazine HCl 100 mg PO QHS 11/26/18 Bumetanide [Bumex] 2 mg NG DAILY #30 tab 11/28/18 Glimepiride [Amaryl] 1 mg PO DAILY #30 tab 11/28/18 Metolazone [Zaroxolyn] 5 mg PO DAILY #15 tab 11/28/18 Pantoprazole Sodium [Protonix] 40 mg PO DAILY #14 tab 11/28/18 Following Prescrptions Were Given to Patient: Glimepiride [Amaryl] 1 mg PO DAILY #30 tab Transmission Status: Received by [facility] 181 Bumetanide [Bumex] 2 mg NG DAILY #30 tab Transmission Status: Received by [facility] 181 Pantoprazole Sodium [Protonix] 40 mg PO DAILY #14 tab Transmission Status: [facility] Metolazone [Zaroxolyn] 5 mg PO DAILY #15 tab Transmission Status: [id number] Primary Care Physician: Levi Laird MD [Primary Care Provider] - Please follow up with your Primary Care Physician in: 1 week Please Follow Up With: Evert Waite MD When: 2 weeks Disposition: Home Minutes spent on discharge:: 30 Patient Condition:: Good Medical Necessity - Tobacco Use Smoking Status: Former smoker Tobacco Use: Non-smoker Meaningful Use Info Meaningful Use Diagnoses (Choose all that apply): None applicable Code Visit Inpatient E&M: 86322 Disch Hosp
--- NOTE | 2018-11-28 15:42 | CASEMGMT ---
Addendum entered by Mayra Zayas 11/28/18 15:43: Pt is on 2 liters oxygen at this time, which is what her order for home is. Dyan PADILLA CM Original Note: This RN CM to room to discuss discharge plan with pt at this time. Pt declines HHC/OP therapy at this time. Pt states no further questions/concerns/needs at this time. Dyan PADILLA CM
== END 2018-11-28 15:50 | disposition home or self-care (01) | DRG 315 ==
LOC: ED 14:36 → PCU 16:51
PROVIDERS: Physician Assistant; Admitting Provider Internal Medicine; Emergency Provider Emergency Medicine; Family Provider Family Medicine; PCP Family Medicine; Referring Provider Internal Medicine; Visit Provider Internal Medicine
DX: I27.20 Pulmonary hypertension, unspecified (principal); N17.9 Acute kidney failure, unspecified; I13.0 Hypertensive heart and chronic kidney disease with heart failure and stage 1 through stage 4 chronic kidney disease, or unspecified chronic kidney disease; Z68.41 Body mass index [BMI] 40.0-44.9, adult; I50.32 Chronic diastolic (congestive) heart failure; E11.22 Type 2 diabetes mellitus with diabetic chronic kidney disease; J44.9 Chronic obstructive pulmonary disease, unspecified; E66.01 Morbid (severe) obesity due to excess calories; E86.0 Dehydration; N18.3 Chronic kidney disease, stage 3 (moderate); Z91.19 Patient's noncompliance with other medical treatment and regimen; I87.2 Venous insufficiency (chronic) (peripheral); Z66 Do not resuscitate; I25.10 Atherosclerotic heart disease of native coronary artery without angina pectoris; K29.70 Gastritis, unspecified, without bleeding; D50.9 Iron deficiency anemia, unspecified; E78.5 Hyperlipidemia, unspecified; Z79.84 Long term (current) use of oral hypoglycemic drugs; Z95.1 Presence of aortocoronary bypass graft; Z87.891 Personal history of nicotine dependence; G47.33 Obstructive sleep apnea (adult) (pediatric)
CPT/HCPCS: 36415; 71046; 80048; 80053; 82962; 83036; 83735; 83880; 84484; 85025; 85610; 93005; 94640; 97162; 97166; 97530; 99285

== ENCOUNTER 2018-12-01 14:54 | Inpatient (IN) | payer MEDICARE, SELFPAY ==
[2018-12-01] VITALS (8 sets, daily range): BP systolic 148–172; BP diastolic 54–72; PULSE 72–98; RESP 15–22; TEMP 36.3–36.7; O2SAT 95–100; BMI 45.7; BMI 46.9
--- NOTE | 2018-12-01 15:22 | ED.VISSUMM ---
- ER Visit Summary Date of Service: 12/01/18 Chief Complaint: Shortness of breath History of Present Illness: The patient is a 72 F who presents with increasing shortness of breath over the past 3 days. Patient was recently discharged from the hospital for congestive heart failure. Patient has had 3 pound weight gain since she was discharged from the hospital. Patient was admitted to the hospital 1 week ago for a 10 pound weight gain and increase in fluid retention. Patient did not lose any of that weight during her hospital stay. Since her discharge she has gained 3 pounds. Patient has been complaining of increasing left leg pain. Patient states her abdomen is swollen. Patient took her dose of Zaroxolyn and Bumex today. Patient admits to a cough but denies any sputum production. Patient denies any fevers or chills. Patient denies any chest pain. Patient had a home aerosol which did not help. Physical Examination: Vital signs are stable. Patient is afebrile. Patient is in no acute distress. Oral mucosa is pink and moist. Neck is supple. Trachea is midline. No JVD. Heart was regular rate and rhythm. Lungs show few scattered wheezes. There is good respiratory effort noted. Abdomen is soft. Bowel sounds are normal. There is mild diffuse tenderness. There is no rebound or guarding noted. Cranial nerves II through XII are intact. There are no focal motor or sensory deficits noted. Test Results: CBC shows a slight leukocytosis of 11.5. Hemoglobin was 8.3. Creatinine was slightly elevated at 2.48 compared to previous result. BNP was 382.9 which is increased from previous result. Troponin was normal. Chest x-ray shows interstitial edema. Emergency Department Course and Treatment: Patient was given a dose of Lasix here. Case was discussed with the hospitalist. She will be in to evaluate the patient and admit the patient to her service. Patient and family understood and were agreeable with the plan. All questions were answered. Disposition: Admit to hospital Impression: Congestive heart failure This note was generated with [employer] dictation software. It may contain incorrect words, spelling, and punctuation that were not noted in review of the chart prior to signing ED Disposition - Plan for ED Patient: Disposition: Acute Care [facility] Diagnosis: Congestive heart failure Referrals: Levi Laird MD [Primary Care Provider] -
[2018-12-01 15:43] LABS: Absolute Neutrophil Count 10.3 X10^3/uL (2.0-7.7); Basophil# 0.04 X10^3/uL; Basophil% 0.3 % (0-1); Eosinophil# 0.08 X10^3/uL; Eosinophils% 0.7 % (0-5); Hematocrit 27.2 % (37-47); Hemoglobin 8.3 g/dL (12.0-15.0); Lymphocyte % 4.4 % (19-41); Mean Corp Hgb Conc 30.5 g/dL (32-36); Mean Corpuscular Hgb 26.6 pg (27.0-32.0); Mean Corpuscular Volume 87.2 fL (81-99); Mean Platelet Vol. 9.8 fl (6.2-12.0); Monocyte# 0.34 X10^3/uL; NRBC Flagged by Analyzer 0 % (0-5); Neutrophil # 10.29 X10^3/uL (2.7-7.7); Neutrophil % 89.8 % (47-70); POSITIVE DIFFERENTIAL YES; Platelet Count 303 K/mm3 (150-450); RBC Distribution Width CV 16.4 % (11.6-14.6); Red Blood Count 3.12 M/mm3 (4.2-5.4); White Blood Count 11.5 K/mm3 (4.4-11.0)
--- NOTE | 2018-12-01 15:44 | RAD_ITS ---
STUDY: X-RAY CHEST REASON FOR EXAM: Female, 72 years old. Increased shortness of breath. TECHNIQUE: PA and lateral views of the chest. COMPARISON: 26 November 2018 FINDINGS: Sternotomy wires are midline. Diffuse prominent interstitial markings are present. Right hemidiaphragm eventration is present with right lower lung basilar atelectasis. There is borderline cardiomegaly. Normal mediastinum and james. There is prominence of the pulmonary hilar arteries and peripheral pulmonary arteries, consistent with congestive heart failure (CHF). There is atherosclerotic calcification of the aortic arch with tortuosity. Normal visualized thoracic spine. Normal visualized ribs, clavicles, and shoulders. There is no demonstrated abnormality of the visualized soft tissue structures of the upper abdomen. RAD/Chest PA and Lateral IMPRESSION: Findings consistent with interstitial edema and component of pulmonary vascular congestion with mild cardiomegaly concern procedure tip exacerbation in the appropriate clinical setting. Electronically Signed: Frank Agarwal DO at 16:07 EDT , Service support ,
[2018-12-01 15:46] LABS: Differential Indicated SCAN CRITERIA MET
[2018-12-01 15:53] LABS: International Normalized Ratio 1.2; Prothrombin Time (Protime)PT. 14.9 SECONDS (11.7-14.9)
[2018-12-01 15:54] LABS: Partial Thromboplast Time 37.3 Seconds (24.1-36.2)
[2018-12-01 16:00] LABS: Differential Comment SCANNED
[2018-12-01 16:05] LABS: ALB/GLOB Ratio 0.9 RATIO (0.9-2.4); AST(SGOT) 32 U/L (15-37); Alanine Aminotransfer ALT/SGPT 29 U/L (13-56); Albumin, Serum 3.3 g/dL (3.2-5.0); Alkaline Phosphatase 185 U/L (45-117); Anion Gap 10 (5-15); BUN 52 mg/dL (7-18); Calcium,Total 8.6 mg/dL (8.5-10.1); Chloride 96 mmol/L (98-107); Creatinine, Serum 2.48 mg/dL (0.55-1.02); EST Glomerular Filtration Rate 20 mL/min (>60); Est Glom Filt Rate - Afr Amer 25 mL/min (>60); Estimated Creatinine Clearance 16.46 ml/min; Globulin 3.6 g/dL (2.2-4.2); Glucose 266 mg/dL (74-106); Lipase 129 U/L (73-393); Protein, Total 6.9 g/dL (6.4-8.2); Sodium Level 132 mmol/L (136-145)
[2018-12-01 16:08] LABS: Bacteria 0 SEEN /hpf (None Seen); Mucous, Urine 0 SEEN /hpf (<or=2+); Red Blood Cells-Urine 0 SEEN /hpf (0-5)
[2018-12-01 16:13] LABS: Color, Urine Yellow (Yellow); Glucose, Dipstick Normal (Normal); Ketone-Dipstick Negative (Negative); Leukocyte Esterase-Dipstick 100 /ul (Negative); Nitrite-Dipstick Negative (Negative); Occult Blood-Urine Negative /ul (Negative); Protein-Dipstick 30 mg/dl (Negative); Specific Gravity, Urine 1.015 (1.002-1.030); Urine Bilirubin Dipstick Negative (Negative); Urine Clarity Cloudy (Clear); Urine Urobilinogen Normal (Normal)
[2018-12-01 16:19] LABS: BNP,B-Type NATRIURETIC PEPTIDE 382.9 pg/mL (0-100)
[2018-12-01 16:34] LABS: Squamous Epithelial Cells - UA 0-5 SEEN /hpf (5-10); White Blood Cells 0-5 SEEN /hpf (0-5); Yeast-Urine 2+ /hpf (None Seen)
--- NOTE | 2018-12-01 17:52 | HP.PCM_ITS ---
History of Present Illness Date of Admission: 12/01/18 Chief Complaint: shortness of breath, LE swelling The patient is a 72 year old F with an extensive past medical history as listed which includes diastolic heart failure, chronic hypoxic respiratory failure due to heart failure and pulmonary hypertension. He was admitted through the ED on 12/01/2018 with a complaint of worsening shortness of breath. Patient was recently discharged just about 3 days ago after being admitted and managed for acute on chronic diastolic heart failure. She was discharged home on Bumex which she has been compliant with as well as metolazone. However since she was discharged home, patient has been getting more short of breath with associated orthopnea and also has bilateral lower extremity swelling. His son-in-law stated that her weight had gone up by about 3 pounds since discharge. This is her third admission in a little over a week and Lasix was switched to Bumex at her last admission as she was thought to be unresponsive to Lasix. She denies any chest pain or palpitations, dizziness, abdominal pain, diarrhea or vomiting. Review of systems is otherwise negative. Vitals in the ED was significant for blood pressure 170/172. Chemistry shows sodium of 132 with creatinine of 2.48. Initial troponin was negative and BNP is 382.9. CBC showed hemoglobin of 11.3 with a similar hyperinflated. Chest x-ray showed findings consistent with interstitial edema and component of pulmonary vascular congestion with mild cardiomegaly. She is been admitted to be managed for acute on chronic exacerbation of diastolic heart failure. [] Past Medical History Past Medical History (Chronic Problems): Chronic Problems (Last Updated 11/18/18 @ 14:34 by Sandoval Tong DO) Iron deficiency anemia (Chronic) Tricuspid insufficiency (Chronic) Mitral insufficiency (Chronic) ELAINE (obstructive sleep apnea) (Chronic) CKD (chronic kidney disease), stage III (Chronic) Atherosclerotic heart disease of [place] coronary artery without angina pectoris (Chronic) NATHAN to the LAD, and SVG to the diagonal branch, and SVG to the LCx system, and an SVG to the RCA on 04/16/2013 at [facility] with Dr. 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 Fields Dyslipidemia (Chronic) COPD (chronic obstructive pulmonary disease) (Chronic) Diabetes mellitus type 2 in obese (Chronic) Medical History: Medical History (Last Updated 11/18/18 @ 14:34 by Sandoval Tong DO) Atherosclerotic heart disease of [place] coronary artery without angina pectoris (Chronic) I25.10 NATHAN to the LAD, and SVG to the diagonal branch, and SVG to the LCx system, and an SVG to the RCA on 04/16/2013 at [facility] with Dr. Fields Essential hypertension (Chronic) I10 Pulmonary hypertension (Chronic) I27.20 Morbid obesity with BMI of 40.0-44.9, adult (Chronic) E66.01, Z68.41 Dyslipidemia (Chronic) E78.5 COPD (chronic obstructive pulmonary disease) (Chronic) J44.9 Diabetes mellitus type 2 in obese (Chronic) E11.69, E66.9 (HFpEF) heart failure with preserved ejection fraction I50.30 CAD (coronary artery disease) (Inactive) I25.10 NATHAN to the LAD, and SVG to the diagonal branch, and SVG to the LCx system, and an SVG to the RCA on 04/16/2013 at [facility] with Dr. Fields Allergies Penicillins Allergy (Verified 12/01/18 14:55) Hives adhesive tape Adverse Reaction (Verified 12/01/18 14:55) Other Home Medications: Ambulatory Orders Medication Instructions Recorded Amitriptyline HCl [Elavil] 100 mg PO QHS 04/09/13 Aspirin E.C. [Ecotrin] 81 mg PO DAILY 10/25/17 Atorvastatin Calcium 80 mg PO DAILY 10/25/17 Gabapentin [Neurontin] 300 mg PO QHS 10/25/17 Amlodipine Besylate 10 mg PO DAILY 06/01/18 Ferrous Sulfate 325 mg PO 1200,1700 #120 tab 07/09/18 Potassium Chloride 20 meq PO DAILY #60 tab.er.prt 07/09/18 carvedilol 6.25 mg tablet 6.25 mg PO BID #60 tab 07/31/18 isosorbide mononitrate ER 60 mg 60 mg PO DAILY #60 tab 07/31/18 tablet,extended release 24 hr Albuterol Sulfate 1.25 mg IH 4X/DAY 08/20/18 Doxazosin Mesylate 8 mg PO QHS 08/20/18 Hydralazine HCl 200 mg PO DAILY 08/20/18 Omeprazole 40 mg PO DAILY 08/20/18 budesonide-formoterol HFA 160 2 puff INHALATION BID #1 ea 09/25/18 mcg-4.5 mcg/actuation aerosol inhaler tiotropium 2.5 mcg-olodaterol 2.5 2 puff INHALATION DAILY #4 g 10/28/18 mcg/actuation mist for inhalation Hydralazine HCl 100 mg PO QHS 11/26/18 Bumetanide [Bumex] 2 mg NG DAILY #30 tab 11/28/18 Glimepiride [Amaryl] 1 mg PO DAILY #30 tab 11/28/18 Metolazone [Zaroxolyn] 5 mg PO DAILY #15 tab 11/28/18 Pantoprazole Sodium [Protonix] 40 mg PO DAILY #14 tab 11/28/18 Surgical History: Surgical History (Last Reviewed 11/18/18 @ 14:35 by Sandoval Tong DO) 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 Fields Surgical History: appendectomy, cholecystectomy, - - CABG x4, cholecystectomy, appendectomy, left lower extremity vein stripping, tonsillectomy. 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 Maternal Family History: Family History (Last Reviewed 11/18/18 @ 14:35 by Sandoval Tong DO) Mother Heart disease History Items: - - Patient notes a maternal family history of heart disease and diabetes. Review of Systems Constitutional: Reports: Malaise, Weakness, Fatigue. Denies: Anorexia, Fever Eyes: Denies: Blurred vision HEENT: Denies: Head Aches, Sinus Congestion, Sinus Drainage Cardiovascular: Reports: Edema, Orthopnea. Denies: Chest Pain, Light [place]aded ness, Palpitations, Paroxysmal Noc. Dyspnea Respiratory: Reports: Shortness of Breath, Shortness of breath at rest, Shortness of breath upon exertion. Denies: Cough, Hemoptysis, Pleuritic Pain, Wheezing Gastrointestinal: Denies: Abdominal Pain, Nausea, Vomiting Genitourinary: Denies: Dysuria Musculoskeletal: Denies: Joint Pain, Joint Tenderness Skin: Denies: Rash, Wounds Neurological: Denies: Numbness, Tingling, Focal weakness Psychiatric: Denies: Anxiety, Depression, Homicidal Ideations, Suicidal Ideations Hematologic/ Lymphatic: Denies: Easy Bruising, Easy Bleeding VTE Information - Inpt Only VTE Present on Admission: No VTE Pharm Prophylaxis ordered?: Yes Patient Problems: Active and Suspected Problems (Last Updated 11/18/18 @ 14:34 by Sandoval Tong DO) Congestive heart failure (Acute) - Physical Exam General: Alert, Oriented x3, Cooperative, No apparent distress, Lethargic HEENT: Atraumatic, PERRLA, EOMI, Normocephalic Oral: Dry Mucosa Neck: Supple, No JVD, Negative Carotid Bruits Lungs: - - coarse crackles in mid and lower lung navarro bilaterally./ on 3L of oxygen by nasal canula Cardiovascular: Regular rate, Regular Rhythm, Normal S1, Normal S2, - - grade 2- 3 systolic murmur loudest in the aortic and pulmonary regions Abdomen: Bowel Sounds Present, Soft, Obese, Tender - mild tenderness on palpation of suprapubic region; no guarding or rebound tenderness Extremities: No clubbing, No cyanosis, - - grade 2+ bilateral pitting pedal edema Skin: No rashes, No breakdown Musculoskeletal: No Tenderness to Palpation of Joints or Extremities Lymphatic: No Cervical, Supraclavicular, or Inguinal Adenopathy Neurological: Cranial nerves II-XII grossly intact, Neuro grossly intact, Motor Exam 5/5 strength throughout Psych/Mental Status: Normal Affect, Appropriate, Alert and oriented to time, place, person, mood and affect Vital Signs Temp Pulse Resp BP Pulse Ox 98.0 F 72 15 172/64 H 100 12/01/18 14:55 12/01/18 16:45 12/01/18 16:45 12/01/18 16:45 12/01/18 16:45 Oxygen Flow Rate (L/min) 3 Oxygen Delivery Method Nasal Cannula Weight: 250 lb Body Mass Index (BMI) 45.7 Finger Stick Blood Glucose 155 Laboratory Tests Past 24 Hrs 12/01/18 12/01/18 12/01/18 15:30 15:30 15:30 WBC 11.5 H RBC 3.12 L Hgb 8.3 L Hct 27.2 L MCV 87.2 MCH 26.6 L MCHC 30.5 L RDW Std Deviation 52.0 H RDW Coeff of Becca 16.4 H Plt Count 303 MPV 9.8 Immature Gran % (Auto) 1.800 H Neut % (Auto) 89.8 H Lymph % (Auto) 4.4 L [place] % (Auto) 3.0 Eos % (Auto) 0.7 Baso % (Auto) 0.3 Absolute Neuts (auto) 10.3 H Absolute Lymphs (auto) 0.50 L Nucleated RBC % 0 Differential Comment SCANNED PT 14.9 INR 1.2 APTT 37.3 H Sodium 132 L Potassium 5.0 Chloride 96 L Carbon Dioxide 26.0 Anion Gap 10 BUN 52 H Creatinine 2.48 H Estim Creat Clear Calc 16.46 Est GFR (MDRD) Af Amer 25 L Est GFR (MDRD) Non-Af 20 L BUN/Creatinine Ratio 21.0 H Glucose 266 H Calcium 8.6 Total Bilirubin 0.40 AST 32 ALT 29 Alkaline Phosphatase 185 H Troponin I < 0.015 B-Natriuretic Peptide Total Protein 6.9 Albumin 3.3 Globulin 3.6 Albumin/Globulin Ratio 0.9 Lipase 129 Urine Color Urine Clarity Urine pH Ur Specific [place] Urine Protein Urine Glucose (UA) Urine Ketones Urine Occult Blood Urine Nitrite Urine Bilirubin Urine Urobilinogen Ur Leukocyte Esterase Urine RBC Urine WBC Ur Squamous Epith Cells Urine Bacteria Urine Mucus Urine Yeast 12/01/18 12/01/18 15:30 15:55 WBC RBC Hgb Hct MCV MCH MCHC RDW Std Deviation RDW Coeff of [place] Plt Count MPV Immature Gran % (Auto) Neut % (Auto) Lymph % (Auto) [place] % (Auto) Eos % (Auto) Baso % (Auto) Absolute Neuts (auto) Absolute Lymphs (auto) Nucleated RBC % Differential Comment PT INR APTT Sodium Potassium Chloride Carbon Dioxide Anion Gap BUN Creatinine Estim Creat Clear Calc Est GFR (MDRD) Af Amer Est GFR (MDRD) Non-Af BUN/Creatinine Ratio Glucose Calcium Total Bilirubin AST ALT Alkaline Phosphatase Troponin I B-Natriuretic Peptide 382.9 H Total Protein Albumin Globulin Albumin/Globulin Ratio Lipase Urine Color Yellow Urine Clarity Cloudy Urine pH 5.0 Ur Specific [place] 1.015 Urine Protein 30 H Urine Glucose (UA) Normal Urine Ketones Negative Urine Occult Blood Negative Urine Nitrite Negative Urine Bilirubin Negative Urine Urobilinogen Normal Ur Leukocyte Esterase 100 H Urine RBC 0 SEEN Urine WBC 0-5 SEEN Ur Squamous Epith Cells 0-5 SEEN Urine Bacteria 0 SEEN Urine Mucus 0 SEEN Urine Yeast 2+ Diagnostic Data Chest X-Ray 12/01/18 15:44 IMPRESSION: Findings consistent with interstitial edema and component of pulmonary vascular congestion with mild cardiomegaly concern procedure tip exacerbation in the appropriate clinical setting. Electronically Signed: Frank Agarwal DO at 16:07 EDT , Service support , Assessment/Plan All Active Problems (Last Updated 11/18/18 @ 14:34 by Sandoval Tong DO) Congestive heart failure (Acute) Abdominal pain (Acute) Acute renal failure superimposed on stage 3 chronic kidney disease (Acute) Acute respiratory failure with hypoxia (Ruled-out) Acute exacerbation of CHF (congestive heart failure) (Ruled-out) 72 y/o female admitted with a complaint of worsening shortness of breath 1. Acute on chronic diastolic heart failure * refractory to treatment; this is her third admission in a little over a week * BNP was ~ 382 * CXR showed interstitial edema and pulmonary vascular congestion with mild cardiomegaly * Admit to PCU with telemetry * CR is up to 2.48, with baseline of ~ 2 * start Bumex drip * insert catheter to monitor urine output * intake output chart * restrict fluid to 1500cc daily. * consult cardiology; family also wants pulmonology to be consulted, specifically Dr Ferreira. * Repeat 2D echo * continue metolazone * Continue carvedilol, hydralazine and Imdur * 2. KURT on CKD: * Cr is 2.48, with baseline of ~ 2. * Family says she has not been making much urine, and they would want her to be seen by nephrology. * Will consult Dr Waite * 3. Chronic hypoxic respiratory failure due to COPD and heart failure as well as pulmonary hypertension * On 2 L of oxygen at home. * titrate oxygen to maintain sats >90% * 4. CHronic anemia: hb is 8.3, which is around her baseline. Will monitor 5. Pulmonary hypertension: RVSP per 2D echo done 3.19 was 44. Will repeat 2D echo. 6. Hypertension: on amlodipine, Carvedilol, hydralazine and Imdur. 7. COPD: On tiotropium inhaler as well as budesonide and formoterol 8. VT prophylaxis: Lovenox renally dosed Code status: DNRCCA * Patient andd family counseled extensively about different types of CODE STATUS including full code, DNR CCA and DNR CCA. Patient elects to be DNRCCA. Total [id number] time 16 minutes. Code Visit Inpatient E&M: 52585 Init Hosp L3 Procedures: 46046 Advncd Care Plan 30 Min
--- NOTE | 2018-12-01 17:56 | EKG12_ITS ---
Test Reason : AM Blood Pressure : / mmHG Vent. Rate : 075 BPM Atrial Rate : 075 BPM P-R Int : 162 ms QRS Dur : 092 ms QT Int : 402 ms P-R-T Axes : 083 049 054 degrees QTc Int : 448 ms Normal sinus rhythm Possible Left atrial enlargement Abnormal ECG When compared with ECG of 27-NOV-2018 08:49, No significant change was found Confirmed by CAROL DOVE, SUSAN ([id number]), editorial cartoonist ISABEL DWYER ([id number]) on 12/10/2018 10:47:47 AM Referred By: Confirmed By:DEANNE MEDINA MD
[2018-12-01] MEDS: Furosemide 40 MG/4 ML Vial IV (18:05)
[2018-12-01] MEDS: Ipratropium/Albuterol Sulfate 3 ML AMPUL.NEB INHALATION (19:40)
[2018-12-01] MEDS: 0.9% NaCl Peripheral Flush Adult/Peds IV (19:57)
--- NOTE | 2018-12-01 21:14 | PCM.CONS.C ---
Problem List (1) Congestive heart failure Status: Acute (2) Atherosclerotic heart disease of [place] coronary artery without angina pectoris Status: Chronic Qualifiers: Comment: NATHAN to the LAD, and SVG to the diagonal branch, and SVG to the LCx system, and an SVG to the RCA on 04/16/2013 at [facility] with Dr. Fields (3) H/O four vessel coronary artery bypass graft Status: Chronic Comment: NATHAN to the LAD, and SVG to the diagonal branch, and SVG to the LCx system, and an SVG to the RCA on 04/16/2013 at [facility] with Dr. Fields (4) Valvular heart disease Status: Chronic (5) ELAINE (obstructive sleep apnea) Status: Chronic (6) COPD (chronic obstructive pulmonary disease) Status: Chronic Qualifiers: (7) Pulmonary hypertension Status: Chronic (8) Essential hypertension Status: Chronic (9) Dyslipidemia Status: Chronic (10) Diabetes mellitus type 2 in obese Status: Chronic (11) Iron deficiency anemia Status: Chronic (12) Acute renal failure superimposed on stage 3 chronic kidney disease Status: Acute Reason for Consult Date of Consultation: 12/01/18 History of Present Illness: The patient is a 72 year old white female with a past complex medical history which is included hyperlipidemia, hypertension, CAD, CABG, valvular heart disease with MR/TR, diabetes mellitus, COPD, restrictive lung disease, pulmonary hypertension, chronic renal insufficiency, anemia, who presents for worsening shortness of breath/dyspnea, increased abdominal girth, increased lower extremity edema, lack of appetite, and generalized weakness. The patient has had frequent hospitalizations for similar type concerns. She is undergone extensive evaluation and care. She was recently released from the hospital and was initially doing better. She states that she felt good for approximately 1 day. Her family states during that day she appeared to be awake, alert, interactive, and feeling well. However over the last few days she is steadily declined. She has had progressive shortness of breath with concerns of increased abdominal girth, increased lower extremity edema, diminished appetite, generalized weakness, increased weight gain, and today recurrent inspiratory and expiratory audible wheezing. She has denied any ongoing symptoms of classic angina pectoris. There has been no near syncope or syncope. She sleeps in a recliner chair. She has been up to the bathroom during the night but not because she is felt short of breath and dyspneic. Her family cares for her. They states that she has been on her appropriate diet and has been receiving her medications as scheduled. They noted that her weight has been going up despite being on the diuretic therapy at home. Today they did use the metolazone as needed. However as they noted that she was appearing to have more audible wheezing they elected to bring her to the emergency department for further evaluation and care. She was thought to have evidence based upon her history and her examination and her noninvasive studies including her chest x-ray of recurrent acute CHF. She was placed in the PCU for further evaluation. She was started on IV Bumex infusion. She has had laboratory studies performed. Her troponin I level was negative. Her BNP level was elevated at 382.9. Her BUN was reported at 52 and her creatinine level has increased to 2.48. Her cardiac rhythm was sinus rhythm. Her chest x-ray demonstrated a portable chest x-ray with diminished inspiratory effort, the appearance of a somewhat elevated right hemidiaphragm, an element of increased pulmonary vascularity. She is scheduled to be evaluated by hematology on 12-03-18 for recurrent iron infusion to assist with her anemia. [] Past Medical History Allergies/Adverse Reactions: Allergies Penicillins Allergy (Verified 12/01/18 14:55) Hives adhesive tape Adverse Reaction (Verified 12/01/18 14:55) Other Home Medications: Ambulatory Orders Medication Instructions Recorded Amitriptyline HCl [Elavil] 100 mg PO QHS 04/09/13 Aspirin E.C. [Ecotrin] 81 mg PO DAILY 10/25/17 Atorvastatin Calcium 80 mg PO DAILY 10/25/17 Gabapentin [Neurontin] 300 mg PO QHS 10/25/17 Amlodipine Besylate 10 mg PO DAILY 06/01/18 Ferrous Sulfate 325 mg PO 1200,1700 #120 tab 07/09/18 Potassium Chloride 20 meq PO DAILY #60 tab.er.prt 07/09/18 carvedilol 6.25 mg tablet 6.25 mg PO BID #60 tab 07/31/18 isosorbide mononitrate ER 60 mg 60 mg PO DAILY #60 tab 07/31/18 tablet,extended release 24 hr Albuterol Sulfate 1.25 mg IH 4X/DAY 08/20/18 Doxazosin Mesylate 8 mg PO QHS 08/20/18 Hydralazine HCl 200 mg PO DAILY 08/20/18 Omeprazole 40 mg PO DAILY 08/20/18 budesonide-formoterol HFA 160 2 puff INHALATION BID #1 ea 09/25/18 mcg-4.5 mcg/actuation aerosol inhaler tiotropium 2.5 mcg-olodaterol 2.5 2 puff INHALATION DAILY #4 g 10/28/18 mcg/actuation mist for inhalation Hydralazine HCl 100 mg PO QHS 11/26/18 Bumetanide [Bumex] 2 mg NG DAILY #30 tab 11/28/18 Glimepiride [Amaryl] 1 mg PO DAILY #30 tab 11/28/18 Metolazone [Zaroxolyn] 5 mg PO DAILY #15 tab 11/28/18 Pantoprazole Sodium [Protonix] 40 mg PO DAILY #14 tab 11/28/18 Past Medical History (Chronic Problems): Chronic Problems (Last Updated 11/18/18 @ 14:34 by Sandoval Tong DO) Valvular heart disease (Chronic) Iron deficiency anemia (Chronic) Tricuspid insufficiency (Chronic) Mitral insufficiency (Chronic) ELAINE (obstructive sleep apnea) (Chronic) CKD (chronic kidney disease), stage III (Chronic) Atherosclerotic heart disease of [place] coronary artery without angina pectoris (Chronic) NATHAN to the LAD, and SVG to the diagonal branch, and SVG to the LCx system, and an SVG to the RCA on 04/16/2013 at [facility] with Dr. Fields Essential hypertension (Chronic) Pulmonary hypertension (Chronic) Morbid obesity with BMI of 40.0-44.9, adult (Chronic) H/O four vessel coronary artery bypass graft (Chronic ~04/16/13) NATHAN to the LAD, and SVG to the diagonal branch, and SVG to the LCx system, and an SVG to the RCA on 04/16/2013 at [facility] with Dr. Fields Dyslipidemia (Chronic) COPD (chronic obstructive pulmonary disease) (Chronic) Diabetes mellitus type 2 in obese (Chronic) Surgical History: appendectomy, cholecystectomy, - - CABG x4, cholecystectomy, appendectomy, left lower extremity vein stripping, tonsillectomy. Psychiatric History: Anxiety OBSTETRICAL NURSE History: No pertinent OBSTETRICAL NURSE history - *Family History Paternal Family History: Family History (Last Reviewed 11/18/18 @ 14:35 by Sandoval Tong DO) Mother Heart disease History Items: - - Patient notes a paternal family history of chronic COPD with tobacco use, heart disease and diabetes. Maternal Family History: Family History (Last Reviewed 11/18/18 @ 14:35 by Sandoval Tong DO) Mother Heart disease History Items: - - Patient notes a maternal family history of heart disease and diabetes. Lives: With Family Smoking Status: Former smoker Alcohol: None Drugs: None Review of Systems - Review of Systems General: Reports: Weakness, Decreased Appetite, - - Weight gain. Denies: Fever, Fatigue, Night Sweats Cardiovascular: Reports: Shortness of Breath, Shortness of Breath at Rest, Shortness of Breath with Exertion, Peripheral Edema. Denies: Chest Discomfort, Orthopnea, PND, Palpitations, Lightheadedness, Dizziness, Near Syncope, Syncope Respiratory: Reports: Shortness of Breath, Wheezing. Denies: Cough, Sputum Production, Hemoptysis Gastrointestinal: Reports: Epigastric Discomfort. Denies: Hematemesis, Hematochezia, Melena Genitourinary: Denies: Dysuria, Hematuria Skin: Denies: Rash Subjectve: This is a 72-year-old white female who demonstrates audible wheezing but does not appear to be in acute distress at this time. Objective: Vital Signs Temp Pulse Resp BP Pulse Ox 97.4 F L 75 22 H 152/54 H 98 12/01/18 18:22 12/01/18 19:14 12/01/18 18:22 12/01/18 18:22 12/01/18 18:22 Oxygen Flow Rate (L/min) 2 Oxygen Delivery Method Nasal Cannula Weight: 256 lb 9.889 oz Body Mass Index (BMI) 46.9 Finger Stick Blood Glucose 155 General: Awake, Alert, Oriented x 3, Cooperative, Ill Appearing, Obese HEENT: Atraumatic, Normocephalic, PERRL, EOMI, Sclera Non Icteric Oral: Moist Mucosa Neck: Supple, Good ROM, No JVD Lungs: Inspiratory Wheezes - Fabricio, Expiratory Wheezes-Fabricio Cardiovascular: Regular Rhythm, Normal S1, Normal S2 Murmur Murmur: Grade 3/6, Harsh, Mid Systolic, LLSB, [place], LVOT, Sternal [place] Abdomen: Bowel Sounds Present, Soft, - - Positive tenderness in the epigastric area Extremities: Moderate RLE Edema, Moderate LLE Edema, - - Positive tenderness upon palpation of the thighs and legs 12/01/18 15:30: WBC 11.5 H, RBC 3.12 L, Hgb 8.3 L, Hct 27.2 L, MCV 87.2, MCH 26.6 L, MCHC 30.5 L, Plt Count 303, MPV 9.8, Immature Gran % (Auto) 1.800 H, Neut % (Auto) 89.8 H, Lymph % (Auto) 4.4 L, [place] % (Auto) 3.0, Eos % (Auto) 0.7, Baso % (Auto) 0.3, Absolute Neuts (auto) 10.3 H, Nucleated RBC % 0 12/01/18 15:30: PT 14.9, INR 1.2, APTT 37.3 H 12/01/18 15:30: Sodium 132 L, Potassium 5.0, Chloride 96 L, Carbon Dioxide 26.0, Anion Gap 10, BUN 52 H, Creatinine 2.48 H, Est GFR (MDRD) Af Amer 25 L, Est GFR (MDRD) Non-Af 20 L, BUN/Creatinine Ratio 21.0 H, Glucose 266 H, Calcium 8.6, Total Bilirubin 0.40, Troponin I < 0.015 12/01/18 15:30: B-Natriuretic Peptide 382.9 H 12/01/18 15:55: Urine Color Yellow, Urine Clarity Cloudy, Urine pH 5.0, Ur Specific [place] 1.015, Urine Protein 30 H, Urine Glucose (UA) Normal, Urine Ketones Negative, Urine Occult Blood Negative, Urine Nitrite Negative, Urine Bilirubin Negative, Urine Urobilinogen Normal, Ur Leukocyte Esterase 100 H, Urine RBC 0 SEEN, Urine WBC 0-5 SEEN Rhythm: Sinus rhythm EKG: None available for review at this time ECHO: 06-03-18 Left ventricle normal with an LVEF of 60% Decreased diastolic compliance Mild MR Mild to moderate TR Mild focal aortic valve calcification Estimated PA systolic pressure 44 mmHg Stress Test: 04-09-13 EXERCISE TOLERANCE TEST: The patient underwent pharmacologic (regadenoson) evaluation with a peak heart rate of 96 beats per minute (62% predicted maximum heart rate) and a peak blood pressure of 124/70 mmHg. The baseline ECG demonstrated normal sinus rhythm. The peak pharmacologic ECG demonstrated no obvious ECG changes. There were no obvious cardiac dysrhythmias pretest, during pharmacologic infusion, or recovery. There was no report of chest discomfort during pharmacologic infusion or recovery. The examination was discontinued secondary to completion of protocol. IMPRESSION: 1. Pharmacologic (regadenoson) evaluation. 2. Peak pharmacologic ECG with no obvious ECG changes. 3. Nuclear images pending. MYOCARDIAL PERFUSION IMAGING STUDY: TECHNIQUE: The patient was injected with 12.0 mCi of Tc99m Cardiolite and subsequently rest SPECT Cardiolite nuclear imaging was obtained in the horizontal long, vertical long, and short axes views. The patient underwent pharmacologic (regadenoson) evaluation with a peak heart rate of 96 beats per minute (62% predicted maximum heart rate) with a peak blood pressure of 124/70 mmHg. The patient was injected with 34.1 mCi of Tc99m Cardiolite and subsequently stress SPECT Cardiolite nuclear imaging was obtained in the horizontal long, vertical long, and short axes views. A gated Cardiolite study at peak stress was obtained. INTERPRETATION: Rest and stress SPECT Cardiolite nuclear imaging demonstrate areas of extracardiac/hepatic and gastrointestinal tracer uptake near the inferior segments. There is notation of diminished tracer uptake in portions of the basal inferoseptal, basal inferior, and basal inferolateral segments extending towards the mid inferior segment. This maybe somewhat more prominent following stress as opposed to rest. There appears to be end systolic thickening and brightening. The gated Cardiolite study demonstrates myocardial thickening and inward wall motion. The reported LVEF is 67%. The aforementioned changes maybe compatible with the effects of shifting soft tissue attenuation/artifact as well as gastrointestinal tracer uptake/detraction, however an area of myocardial ischemia involving portions of the basal inferolateral segments extending toward the mid inferior segment cannot necessarily be excluded. IMPRESSION: 1. Rest and stress SPECT Cardiolite nuclear imaging demonstrate myocardial perfusion changes potentially compatible with the effects of shifting soft tissue attenuation/artifact as well as the effects of gastrointestinal tracer uptake/detraction, however, an area of myocardial ischemia in portions of the basal inferolateral extending toward the mid inferior segment cannot necessarily be excluded. 2. The gated Cardiolite study reports an LVEF of 67%. Cardiac Cath: 04-10-13 Left main coronary artery with distal 50% stenosis and calcification LAD with proximal 60% stenosis and calcification followed by 75% stenosis and giving left to left collateral flow to the LCx distribution The LCx was noted to have an ostial 99% stenosis The RCA was noted to have a proximal 60% stenosis followed by mid 60 to 70% stenosis The right PDA had an ostial 50 to 60% stenosis 07-05-18 Right heart catheterization: CONCLUSIONS Right heart pressures - moderately to severely elevated The patient has pulmonary hypertension which is moderate to severely elevated. Intracardiac shunting: None Calculated Qp/Qs: 0.8 (non hemodynamically significant) RECOMMENDATIONS Risk factor modification Medical therapy CORONARY ANGIOGRAPHY RIGHT HEART ASSESSMENT Thermal CO: 6.91 Thermal CI: 3.13 [place] CO: 8 [place] CI: 3.62 PW: 36/36 31 PA: 63/31 41 RV: 61/18 24 RA: 24 23 PVR: 116 Right Heart pressures - elevated Pulmonary Hypertension Moderate to Severe Intracardiac shunting: None Calculated Qp/Qs: 0.8 (non hemodynamically significant) CT Surgery: 04-16-13: [facility]: NATHAN to the LAD, SVG to the diagonal branch, SVG to the LCx system, SVG to the right PDA CXR: Preliminary evaluation: As noted above: Please see official report Assessment/Plan 1. CHF: Acute on chronic diastolic mediated The patient presents with findings compatible with recurrent acute on chronic diastolic mediated CHF. The patient lives with her family. They have been monitoring her diet. They provide her her medications. Despite the above attention she has had a decline in her overall status. At the present time there is concern about recurrent acute on chronic diastolic mediated CHF. She is being monitored. She is being treated. This includes IV diuretics with IV Bumex continuous infusion. She will need follow-up laboratory studies. In the meantime she will be reassessed with an echocardiogram to evaluate for any obvious changes in her cardiac anatomy and/or function that would be contributing to recurrent CHF events. 2. CAD status post CABG At the moment she has no complaints of ongoing chest discomfort. Her initial troponin I level was negative. She has undergone noninvasive and invasive evaluation as described above. At the moment she will continue medical management. She is not an ideal candidate for repeat evaluation in the cardiac catheterization laboratory with respect to IV contrast related studies such as a left heart catheterization based on concerns of IV contrast related nephropathy and worsening renal function. 3. Valvular heart disease She does have underlying valvular heart disease with MR and TR. She will be reassessed with an echocardiogram to monitor for any obvious changes that would be contributing to her recurrent CHF events. 4. Obstructive sleep apnea/COPD The patient has a history of obstructive sleep apnea. She has reported a history of COPD. Based upon her previous PFTs she does have restrictive airway disease. She will need to continue her evaluation and care. She may need repeat input from pulmonology. 5. Pulmonary hypertension She does have history of pulmonary hypertension as described above. This may be multifactorial. She may have a component related to underlying decreased diastolic compliance and/or potentially valvular heart disease. She may have a component secondary to her history of obstructive sleep apnea and COPD/restrictive disease. At the present time she will continue medical management and support. She is receiving O2 therapy at this time. 6. Hypertension She will continue medical management. Her medicines be adjusted based upon her renal insufficiency. 7. Dyslipidemia She will continue medical management as deemed appropriate. 8. Diabetes mellitus She will continue evaluation care per internal medicine. 9. Anemia She will need continued evaluation for her underlying anemia. She may need hematology input. Ideally, if her hemoglobin could increase, this may improve her oxygen carrying capacity and help benefit her overall course. 10. Acute on chronic renal insufficiency Her renal function has declined. This may be secondary to her ongoing issues. She will continue medical management. Her renal function will need to be followed. She has been followed by nephrology. She may need input from nephrology depending upon her response to medical therapy as to whether or not she is going to need some form of ultrafiltration or hemodialysis in the future. Comment: The patient's case was discussed and reviewed with the patient, her daughter, son-in-law, and Dr. Ken. This note was generated using a voice recognition system and there may be incorrect words, spelling or punctuation that were not noted when reviewing the office note prior to saving.
[2018-12-01] MEDS: hydrALAZINE 50 MG Tablet 100 MG PO (21:58)
[2018-12-01] MEDS: Doxazosin 4 MG Tablet 8 MG PO (21:58)
[2018-12-01] MEDS: Carvedilol 6.25 MG Tablet PO (21:59)
[2018-12-01] MEDS: Amitriptyline 100 MG Tablet PO (21:59)
[2018-12-01] MEDS: Gabapentin 300 MG Capsule PO (21:59)
[2018-12-01] MEDS: Insulin Lispro 100 UNIT/ML INSULN.PEN SC (22:11)
[2018-12-01 22:21] LABS: Bedside Glucose 229 mg/dL (70-110)
[2018-12-02] VITALS (15 sets, daily range): BP systolic 125–163; BP diastolic 52–68; PULSE 70–86; RESP 16–24; TEMP 36.3–37; O2SAT 93–97
[2018-12-02 05:37] LABS: Absolute Lymphocyte Count 0.84 X10^3/uL (0.83-4.51); Absolute Neutrophil Count 7.4 X10^3/uL (2.0-7.7); Basophil# 0.03 X10^3/uL; Basophil% 0.3 % (0-1); Eosinophil# 0.12 X10^3/uL; Eosinophils% 1.3 % (0-5); Hematocrit 25.8 % (37-47); Hemoglobin 7.8 g/dL (12.0-15.0); Lymphocyte # 0.84 X10^3/ul (4.0); Lymphocyte % 9.2 % (19-41); Mean Corp Hgb Conc 30.2 g/dL (32-36); Mean Corpuscular Hgb 26.3 pg (27.0-32.0); Mean Corpuscular Volume 86.9 fL (81-99); Mean Platelet Vol. 9.7 fl (6.2-12.0); Monocyte# 0.59 X10^3/uL; Monocyte% 6.5 % (0-10); NRBC Flagged by Analyzer 0 % (0-5); Neutrophil # 7.37 X10^3/uL (2.7-7.7); Neutrophil % 81.2 % (47-70); Platelet Count 274 K/mm3 (150-450); RBC Distribution Width CV 16.3 % (11.6-14.6); RBC Distribution Width SD 51.1 fl (35.1-43.9); Red Blood Count 2.97 M/mm3 (4.2-5.4); White Blood Count 9.1 K/mm3 (4.4-11.0)
--- NOTE | 2018-12-02 05:55 | ECHOD_ITS ---
Reason For Study: CHF Procedure This was a 2D Doppler, Color Flow transthoracic echocardiogram. The study was technically difficult. Exam performed portable in patient room. Left Ventricle Normal LV size. Mild concentric left ventricular hypertrophy. D shaped septum in systole and diastole. Left ventricular systolic function is normal. The estimated ejection fraction is 65 %. No regional wall motion abnormalities noted. Right Ventricle Mildly dilated right ventricle. Mild global right ventricular systolic dysfunction. Atria The left atrium is moderately enlarged. The right atrium is mildly enlarged. No doppler evidence for ASD. Mitral Valve There is mild mitral annular calcification. Mild diffuse mitral valve thickening. Moderately severe (3+) eccentric mitral valve insufficiency. Tricuspid Valve Normal tricuspid valve. Moderate (2+) tricuspid valve insufficiency. Right ventricular systolic pressure estimated to be 67 mmHg. Aortic Valve Trisinus/trileaflet aortic valve. Mild diffuse aortic valve thickening. Mild focal aortic valve calcification. Pulmonic Valve The pulmonic valve is not well visualized. Trivial pulmonic valve insufficiency. Great Vessels Normal sized aortic root. Calcified aortic root. Pericardium/Pleural No pericardial effusion. MMode/2D Measurements & Calculations LVIDd: 5.1 cm IVSd: 1.3 cm Ao root diam: 3.4 cm LVIDs: 3.2 cm LVPWd: 1.3 cm RVDd: 5.0 cm FS: 36.7 % LAV(MOD-bp): 79.8 ml LVAd ap4: 41.2 cm2 SV(MOD-sp4): 97.8 ml LAV(MOD-bp) Indexed: 37.8 ml/m2 EDV(MOD-sp4): 152.1 ml LAV(MOD-sp2): 65.9 ml EDV(sp4-el): 156.7 ml LAV(MOD-sp4): 87.0 ml LVAs ap4: 21.2 cm2 ESV(MOD-sp4): 54.3 ml ESV(sp4-el): 53.5 ml EF(MOD-sp4): 64.3 % EF(sp4-el): 65.9 % SV(sp4-el): 103.2 ml LA A4 area: 25.9 cm2 LA dimension(2D): 5.1 cm RA A4 area: 17.8 cm2 Doppler Measurements & Calculations MV E max vivi: 135.3 cm/sec Ao V2 max: 201.4 cm/sec LV V1 max: 108.5 cm/sec MV A max vivi: 79.3 cm/sec Ao max P.2 mmHg LV V1 max P.7 mmHg MV E/A: 1.7 TR max vivi: 358.6 cm/sec TR max P.5 mmHg Interpretation Summary The study was technically difficult. Left ventricular systolic function is normal. The estimated ejection fraction is 65 %. Mild concentric left ventricular hypertrophy. D shaped septum in systole and diastole. Mildly dilated right ventricle. Mild global right ventricular systolic dysfunction. The left atrium is moderately enlarged. The right atrium is mildly enlarged. There is mild mitral annular calcification. Moderately severe (3+) eccentric mitral valve insufficiency. Moderate (2+) tricuspid valve insufficiency. Mild diffuse aortic valve thickening. Mild focal aortic valve calcification. Trivial pulmonic valve insufficiency. Calcified aortic root. Right ventricular systolic pressure estimated to be 67 mmHg. Transmitral diastolic flow velocities suggest diastolic dysfunction (pseudonormal pattern). Ordering Physician: Jo Ken Referring Physician: RACHAEL CHIU Performed By: Roro Rivas, SKIP, RVT
[2018-12-02 06:10] LABS: Anion Gap 10 (5-15); BUN 54 mg/dL (7-18); BUN/Creat Ratio 22.3 RATIO (10-20); Calcium,Total 8.8 mg/dL (8.5-10.1); Chloride 99 mmol/L (98-107); Creatinine, Serum 2.42 mg/dL (0.55-1.02); EST Glomerular Filtration Rate 21 mL/min (>60); Est Glom Filt Rate - Afr Amer 25 mL/min (>60); Estimated Creatinine Clearance 16.86 ml/min; Glucose 139 mg/dL (74-106); Potassium 3.7 mmol/L (3.5-5.1); Sodium Level 137 mmol/L (136-145)
[2018-12-02 06:55] LABS: Bedside Glucose 150 mg/dL (70-110)
[2018-12-02] MEDS: Ipratropium/Albuterol Sulfate 3 ML AMPUL.NEB INHALATION ×3 (07:16→20:04)
[2018-12-02] MEDS: Budesonide Respules 0.5 MG/2 ML AMPUL.NEB. INHALATION ×2 (07:17→20:04)
[2018-12-02] MEDS: Aspirin E.C. 81 MG Tablet PO (08:05)
[2018-12-02] MEDS: hydrALAZINE 50 MG Tablet 200 MG PO (08:05)
[2018-12-02] MEDS: Enoxaparin 30 MG/0.3 ML Syringe SC (08:06)
[2018-12-02] MEDS: Carvedilol 6.25 MG Tablet PO ×2 (08:06→21:56)
[2018-12-02] MEDS: amLODIPine 10 MG Tablet PO (08:06)
[2018-12-02] MEDS: Atorvastatin Calcium 80 MG Tablet PO (08:06)
[2018-12-02] MEDS: Isosorbide Mononitrate 60 MG Tablet PO (08:06)
[2018-12-02] MEDS: Pantoprazole Sodium 40 MG Tablet PO (08:07)
--- NOTE | 2018-12-02 08:21 | PN.CARD_ITS ---
Subjectve: The patient believes that her breathing is somewhat improved compared to last night. She still feels tender in her lower abdomen and her lower extremities. Objective: Vital Signs Temp Pulse Resp BP Pulse Ox 98.0 F 80 18 156/55 H 97 12/02/18 08:10 12/02/18 08:10 12/02/18 08:10 12/02/18 08:10 12/02/18 08:10 Oxygen Flow Rate (L/min) 1 Oxygen Delivery Method Nasal Cannula Weight: 253 lb 15.56 oz Body Mass Index (BMI) 46.9 Finger Stick Blood Glucose 155 Intake and Output for Last 24 Hours 11/30/18 12/01/18 12/02/18 23:59 23:59 23:59 Intake Total 228.27 / 228.27 Output Total 1500 / 1500 Balance -1271.73 / -1271.73 General: Awake, Alert, Oriented x 3, Cooperative, No Acute Distress, Obese HEENT: Atraumatic, Normocephalic, PERRL, EOMI, Sclera Non Icteric Oral: Moist Mucosa Neck: Supple, Good ROM, No JVD Lungs: Inspiratory Wheezes - Fabricio, Expiratory Wheezes-Fabricio Cardiovascular: Regular Rhythm, Normal S1, Normal S2 Murmur Murmur: Grade 3/6, Harsh, Mid Systolic, LLSB, [place], LVOT, Sternal Notch Abdomen: Bowel Sounds Present, Soft, - - Positive tenderness to palpation in the lower abdominal area. Extremities: Moderate RLE Edema, Moderate LLE Edema Psych/Mental Status: Appropriate 12/01/18 15:30: WBC 11.5 H, RBC 3.12 L, Hgb 8.3 L, Hct 27.2 L, MCV 87.2, MCH 26.6 L, MCHC 30.5 L, Plt Count 303, MPV 9.8, Immature Gran % (Auto) 1.800 H, Neut % (Auto) 89.8 H, Lymph % (Auto) 4.4 L, [place] % (Auto) 3.0, Eos % (Auto) 0.7, Baso % (Auto) 0.3, Absolute Neuts (auto) 10.3 H, Nucleated RBC % 0 12/01/18 15:30: PT 14.9, INR 1.2, APTT 37.3 H 12/01/18 15:30: Sodium 132 L, Potassium 5.0, Chloride 96 L, Carbon Dioxide 26.0, Anion Gap 10, BUN 52 H, Creatinine 2.48 H, Est GFR (MDRD) Af Amer 25 L, Est GFR (MDRD) Non-Af 20 L, BUN/Creatinine Ratio 21.0 H, Glucose 266 H, Calcium 8.6, Total Bilirubin 0.40, Troponin I < 0.015 12/01/18 15:30: B-Natriuretic Peptide 382.9 H 12/01/18 15:55: Urine Color Yellow, Urine Clarity Cloudy, Urine pH 5.0, Ur Specific [place] 1.015, Urine Protein 30 H, Urine Glucose (UA) Normal, Urine Ketones Negative, Urine Occult Blood Negative, Urine Nitrite Negative, Urine Bilirubin Negative, Urine Urobilinogen Normal, Ur Leukocyte Esterase 100 H, Urine RBC 0 SEEN, Urine WBC 0-5 SEEN 12/02/18 05:15: WBC 9.1, RBC 2.97 L, Hgb 7.8 L, Hct 25.8 L, MCV 86.9, MCH 26.3 L , MCHC 30.2 L, Plt Count 274, MPV 9.7, Immature Gran % (Auto) 1.500 H, Neut % (Auto) 81.2 H, Lymph % (Auto) 9.2 L, [place] % (Auto) 6.5, Eos % (Auto) 1.3, Baso % (Auto) 0.3, Absolute Neuts (auto) 7.4, Nucleated RBC % 0 12/02/18 05:15: Sodium 137, Potassium 3.7, Chloride 99, Carbon Dioxide 28.0, Anion Gap 10, BUN 54 H, Creatinine 2.42 H, Est GFR (MDRD) Af Amer 25 L, Est GFR (MDRD) Non-Af 21 L, BUN/Creatinine Ratio 22.3 H, Glucose 139 H, Calcium 8.8 Rhythm: Sinus rhythm EKG: Sinus rhythm; no acute ECG changes Medical Necessity - Tobacco Use Smoking Status: Former smoker Assessment/Plan 1. CHF: Acute on chronic diastolic mediated The patient presents with findings compatible with recurrent acute on chronic diastolic mediated CHF. The patient lives with her family. They have been monitoring her diet. They p rovide her her medications. Despite the above attention she has had a decline in her overall status. At the present time there is concern about recurrent acute on chronic diastolic mediated CHF. She is being monitored. She is being treated. This includes IV diuretics with IV Bumex continuous infusion. She will need follow-up laboratory studies. In the meantime she will be reassessed with an echocardiogram to evaluate for any obvious changes in her cardiac anatomy and/or function that would be contributing to recurrent CHF events. 2. CAD status post CABG At the moment she has no complaints of ongoing chest discomfort. Her initial troponin I level was negative. She has undergone noninvasive and invasive evaluation as described above. At the moment she will continue medical management. She is not an ideal candidate for repeat evaluation in the cardiac catheterization laboratory with respect to IV contrast related studies such as a left heart catheterization based on concerns of IV contrast related nephropathy and worsening renal function. 3. Valvular heart disease She does have underlying valvular heart disease with MR and TR. She will be reassessed with an echocardiogram to monitor for any obvious changes that would be contributing to her recurrent CHF events. 4. Obstructive sleep apnea/COPD The patient has a history of obstructive sleep apnea. She has reported a history of COPD. Based upon her previous PFTs she does have restrictive airway disease. She will need to continue her evaluation and care. She may need repeat input from pulmonology. 5. Pulmonary hypertension She does have history of pulmonary hypertension as described above. This may be multifactorial. She may have a component related to underlying decreased diastolic compliance and/or potentially valvular heart disease. She may have a component secondary to her history of obstructive sleep apnea and COPD/restrictive disease. At the present time she will continue medical management and support. She is receiving O2 therapy at this time. 6. Hypertension She will continue medical management. Her medicines be adjusted based upon her renal insufficiency. 7. Dyslipidemia She will continue medical management as deemed appropriate. 8. Diabetes mellitus She will continue evaluation care per internal medicine. 9. Anemia Her hemoglobin has decreased somewhat. She will need continued evaluation for her underlying anemia. She may need hematology input. Ideally, if her hemoglobin could increase, this may improve her oxygen carrying capacity and help benefit her overall course. 10. Acute on chronic renal insufficiency Her creatinine level has changed from 2.48-2.4. She will continue medical management. Her renal function will need to be followed. She has been followed by nephrology. She may need input from nephrology depending upon her response to medical therapy as to whether or not she is going to need some form of ultrafiltration or hemodialysis in the future. Comment: The patient's case was discussed and reviewed with the patient. This note was generated using a voice recognition system and there may be incorrect words, spelling or punctuation that were not noted when reviewing the office note prior to saving.
--- NOTE | 2018-12-02 10:23 | PN_ITS ---
Patient Problems: Active and Suspected Problems (Last Updated 11/18/18 @ 14:34 by Sandoval Tong DO) Congestive heart failure (Acute) Subjective: That her breathing is of little bit better no issues overnight Vitals/I&O's: Vital Signs Temp Pulse Resp BP Pulse Ox 98.0 F 80 18 156/55 H 97 12/02/18 08:10 12/02/18 08:10 12/02/18 08:10 12/02/18 08:10 12/02/18 08:29 Oxygen Flow Rate (L/min) 1 Oxygen Delivery Method Nasal Cannula Weight: 253 lb 15.56 oz Body Mass Index (BMI) 46.9 Finger Stick Blood Glucose 155 Intake and Output for Last 24 Hours 11/30/18 12/01/18 12/02/18 23:59 23:59 23:59 Intake Total 228.27 / 228.27 Output Total 1500 / 1500 Balance -1271.73 / -1271.73 General: Alert, Oriented x3, Cooperative, No apparent distress HEENT: Atraumatic, PERRLA, EOMI, Normocephalic Oral: Moist Mucosa Neck: Supple, No JVD Lungs: Normal air movement, No wheeze, Rhonchi, - - Crackles bilaterally Cardiovascular: Regular rate, Regular Rhythm, Normal S1, Normal S2, Murmur - 2/6 ARLEEN Abdomen: Soft, Non-Distended, No Hepato-splenomegaly, Tender - Mild Extremities: Capillary Refill Less than 3 Seconds, Edema - 2+ pitting edema bilateral Skin: No rashes, No breakdown Neurological: Neuro grossly intact, Sensory exam intact to light touch and pain Psych/Mental Status: Normal Affect, Appropriate Laboratory Results 12/01/18 15:30: WBC 11.5 H, RBC 3.12 L, Hgb 8.3 L, Hct 27.2 L, MCV 87.2, MCH 26.6 L, MCHC 30.5 L, RDW Std Deviation 52.0 H, RDW Coeff of Becca 16.4 H, Plt Count 303, MPV 9.8, Immature Gran % (Auto) 1.800 H, Neut % (Auto) 89.8 H, Lymph % (Auto) 4.4 L, [place] % (Auto) 3.0, Eos % (Auto) 0.7, Baso % (Auto) 0.3, Absolute Neuts (auto) 10.3 H, Absolute Lymphs (auto) 0.50 L, Nucleated RBC % 0, Differential Comment SCANNED 12/01/18 15:30: PT 14.9, INR 1.2, APTT 37.3 H 12/01/18 15:30: Sodium 132 L, Potassium 5.0, Chloride 96 L, Carbon Dioxide 26.0, Anion Gap 10, BUN 52 H, Creatinine 2.48 H, Estim Creat Clear Calc 16.46, Est GFR (MDRD) Af Amer 25 L, Est GFR (MDRD) Non-Af 20 L, BUN/Creatinine Ratio 21.0 H, Glucose 266 H, Calcium 8.6, Total Bilirubin 0.40, AST 32, ALT 29, Alkaline Phosphatase 185 H, Troponin I < 0.015, Total Protein 6.9, Albumin 3.3, Globulin 3.6, Albumin/Globulin Ratio 0.9, Lipase 129 12/01/18 15:30: B-Natriuretic Peptide 382.9 H 12/01/18 15:55: Urine Color Yellow, Urine Clarity Cloudy, Urine pH 5.0, Ur Specific [place] 1.015, Urine Protein 30 H, Urine Glucose (UA) Normal, Urine Ketones Negative, Urine Occult Blood Negative, Urine Nitrite Negative, Urine Bilirubin Negative, Urine Urobilinogen Normal, Ur Leukocyte Esterase 100 H, Urine RBC 0 SEEN, Urine WBC 0-5 SEEN, Ur Squamous Epith Cells 0-5 SEEN, Urine Bacteria 0 SEEN, Urine Mucus 0 SEEN, Urine Yeast 2+ 12/01/18 21:55: POC Glucose 229 H 12/02/18 05:15: WBC 9.1, RBC 2.97 L, Hgb 7.8 L, Hct 25.8 L, MCV 86.9, MCH 26.3 L , MCHC 30.2 L, RDW Std Deviation 51.1 H, RDW Coeff of Becca 16.3 H, Plt Count 274, MPV 9.7, Immature Gran % (Auto) 1.500 H, Neut % (Auto) 81.2 H, Lymph % (Auto) 9.2 L, [place] % (Auto) 6.5, Eos % (Auto) 1.3, Baso % (Auto) 0.3, Absolute Neuts (auto) 7.4, Absolute Lymphs (auto) 0.84, Nucleated RBC % 0 12/02/18 05:15: Sodium 137, Potassium 3.7, Chloride 99, Carbon Dioxide 28.0, Anion Gap 10, BUN 54 H, Creatinine 2.42 H, Estim Creat Clear Calc 16.86, Est GFR (MDRD) Af Amer 25 L, Est GFR (MDRD) Non-Af 21 L, BUN/Creatinine Ratio 22.3 H, Glucose 139 H, Calcium 8.8 12/02/18 06:32: POC Glucose 150 H Current Medications Albuterol/Ipratropium (Duoneb) 3 ml INHALATION Q6HWA.RT [facility] Last Admin: 12/02/18 07:16 Dose: 3 ml Documented by: Amitriptyline HCl (Elavil) 100 mg PO QHS [facility] Last Admin: 12/01/18 21:59 Dose: 100 mg Documented by: Amlodipine Besylate (Norvasc) 10 mg PO DAILY [facility] Last Admin: 12/02/18 08:06 Dose: 10 mg Documented by: Aspirin (Ecotrin) 81 mg PO DAILY@0800 [facility] Last Admin: 12/02/18 08:05 Dose: 81 mg Documented by: Atorvastatin Calcium (Lipitor) 80 mg PO DAILY [facility] Last Admin: 12/02/18 08:06 Dose: 80 mg Documented by: Budesonide (Pulmicort Aerosol) 0.5 mg INHALATION Q12H.RT [facility] Last Admin: 12/02/18 07:17 Dose: 0.5 mg Documented by: Carvedilol (Coreg) 6.25 mg PO BID [facility] Last Admin: 12/02/18 08:06 Dose: 6.25 mg Documented by: Dextrose (D50w Syringe) 0 gm IV X1 PRN; Protocol PRN Reason: Hypoglycemia Doxazosin Mesylate (Cardura) 8 mg PO QHS [facility] Last Admin: 12/01/18 21:58 Dose: 8 mg Documented by: Enoxaparin Sodium (Lovenox) 30 mg SC DAILY@1000 [facility] Last Admin: 12/02/18 08:06 Dose: 30 mg Documented by: Ferrous Sulfate (Ferrous Sulfate) 325 mg PO 1200,1700 [facility] Gabapentin (Neurontin) 300 mg PO QHS [facility] Last Admin: 12/01/18 21:59 Dose: 300 mg Documented by: Glucagon () 1 mg IM .X1 PRN PRN Reason: Hypoglycemia Hydralazine HCl (Apresoline) 100 mg PO QHS [facility] Last Admin: 12/01/18 21:58 Dose: 100 mg Documented by: Hydralazine HCl (Apresoline) 200 mg PO DAILY [facility] Last Admin: 12/02/18 08:05 Dose: 200 mg Documented by: Bumetanide 12.5 mg/ N/A 50 mls @ 4 mls/hr CONT INF .[id number] [facility] Last Admin: 12/02/18 03:02 Dose: Not Given Documented by: Sodium Chloride () 250 mls @ 15 mls/hr IV .[id number] PRN PRN Reason: SALINE FLUSH Insulin Human Lispro (Humalog Kwikpen (Bkc)) 0 unit SC ACHS [facility]; Protocol Last Admin: 12/02/18 06:40 Dose: Not Given Documented by: Isosorbide Mononitrate (Imdur) 60 mg PO DAILY [facility] Last Admin: 12/02/18 08:06 Dose: 60 mg Documented by: Metolazone (Zaroxolyn) 5 mg PO DAILY PRN PRN Pantoprazole Sodium (Protonix) 40 mg PO DAILY [facility] Last Admin: 12/02/18 08:07 Dose: 40 mg Documented by: Potassium Chloride (K-Dur) 20 meq PO DAILY@0800 [facility] Last Admin: 12/02/18 08:05 Dose: 20 meq Documented by: Sodium Chloride () 10 - 40 ml IV UD PRN PRN Reason: SALINE FLUSH Last Admin: 12/01/18 19:57 Dose: 10 ml Documented by: Medical Necessity - Tobacco Use Smoking Status: Former smoker Assessment/Plan All Active Problems (Last Updated 11/18/18 @ 14:34 by Sandoval Tong DO) Congestive heart failure (Acute) Abdominal pain (Acute) Acute renal failure superimposed on stage 3 chronic kidney disease (Acute) Acute respiratory failure with hypoxia (Ruled-out) Acute exacerbation of CHF (congestive heart failure) (Ruled-out) 1. Acute on chronic diastolic heart failure with chronic hypoxic respiratory failure secondary to COPD and heart failure pulmonary hypertension/KURT on CKD/HTN -Appreciate cardiology assistance -Continue with Bumex drip and monitor creatinine, creatinine is around 2, and on admission she was 2.48 -BNP was elevated to 382 on admission which is higher than the last 2 measurements that she has had -Tinea with eyes and nose and daily weights. Fluid restriction of 1500 cc -Echo is pending -Blood pressure medications and Lipitor -Continue with aspirin -We will continue with her home oxygen of 2 L -Tinea with her home inhalers 2. DM 2/CKD 3 anemia of chronic disease -We will hold her glimepiride and continue with sliding scale insulin -Accu-Cheks -Baseline hemoglobin since June has been between 8 and 9 -Continue with ferrous sulfate and monitor hemoglobin, will start her on vitamin C since she is also on a PPI 3. GERD -Stable -Continue with PPI DVT: Lovenox Code Visit Inpatient E&M: 24844 Subs Hosp L2
--- NOTE | 2018-12-02 11:48 | CASEMGMT ---
Physician indicated he told family patient should consider a fci due to her numerous re-admissions. Per physician patient's family seemed open to it. SW me with patient and her family. Introduced self and role at [facility]. JOCELINE told them JOCELINE has a list of facilities in the area. Patient said she is not going to a fci. Family did take the list and thanked JOCELINE for stopping by. Josie GREENWOOD MSW
[2018-12-02 11:50] LABS: Bedside Glucose 117 mg/dL (70-110)
[2018-12-02] MEDS: Ferrous Sulfate 325 MG Tablet PO ×2 (11:50→16:20)
--- NOTE | 2018-12-02 12:22 | NURSING ---
this RN called into pt room. family stated she choked on tomato vs taken, stable. took tray away at this time. suggested having speech therapy come evaluate swallowing before proceding with more food/drink. family and pt both agreeable.
--- NOTE | 2018-12-02 14:00 | PCM.CONS.R ---
Problem List (1) Congestive heart failure Status: Acute (2) Acute renal failure superimposed on stage 3 chronic kidney disease Status: Acute Consultation - Renal 12/02/18 PCP/ Referring MD: Requesting physician: Dr Ken Primary care physician: Levi Laird MD Reason for Consultation:: gayathri on ckd 3 - History of Present Illness History of Present Illness: The patient is a 72 year old F who is admitted to the hospital with complaints of shortness of breath. Renal is consulted for acute renal failure with history of chronic kidney disease stage III. She has known history of congestive heart failure with diastolic dysfunction, pulmonary arterial hypertension. History of right heart cath earlier this year. She was admitted twice within the last 2 weeks with similar complaints. At the time of last discharge, we increased her diuretics to Bumex twice a day with metolazone. Apparently she got dyspneic despite taking these medications and came back with above complaints. She is currently on Bumex IV drip. Feels somewhat better. History of chronic moderate lower extremity edema which is unchanged. Weight has apparently increased since discharge. No urinary complaints. Kimble catheter placed. - Allergies Allergies: Allergies Penicillins Allergy (Verified 12/01/18 14:55) Hives adhesive tape Adverse Reaction (Verified 12/01/18 14:55) Other - Current Medications Current Medications: Current Medications Albuterol/Ipratropium (Duoneb) 3 ml INHALATION Q6HWA.RT [facility] Last Admin: 12/02/18 13:14 Dose: 3 ml Documented by: Amitriptyline HCl (Elavil) 100 mg PO QHS [facility] Last Admin: 12/01/18 21:59 Dose: 100 mg Documented by: Amlodipine Besylate (Norvasc) 10 mg PO DAILY [facility] Last Admin: 12/02/18 08:06 Dose: 10 mg Documented by: Ascorbic Acid (Vitamin C) 500 mg PO DAILY@0800,1700 [facility] Aspirin (Ecotrin) 81 mg PO DAILY@0800 [facility] Last Admin: 12/02/18 08:05 Dose: 81 mg Documented by: Atorvastatin Calcium (Lipitor) 80 mg PO DAILY [facility] Last Admin: 12/02/18 08:06 Dose: 80 mg Documented by: Budesonide (Pulmicort Aerosol) 0.5 mg INHALATION Q12H.RT [facility] Last Admin: 12/02/18 07:17 Dose: 0.5 mg Documented by: Carvedilol (Coreg) 6.25 mg PO BID [facility] Last Admin: 12/02/18 08:06 Dose: 6.25 mg Documented by: Dextrose (D50w Syringe) 0 gm IV X1 PRN; Protocol PRN Reason: Hypoglycemia Doxazosin Mesylate (Cardura) 8 mg PO QHS [facility] Last Admin: 12/01/18 21:58 Dose: 8 mg Documented by: Enoxaparin Sodium (Lovenox) 30 mg SC DAILY@1000 [facility] Last Admin: 12/02/18 08:06 Dose: 30 mg Documented by: Ferrous Sulfate (Ferrous Sulfate) 325 mg PO 1200,1700 [facility] Last Admin: 12/02/18 11:50 Dose: 325 mg Documented by: Gabapentin (Neurontin) 300 mg PO QHS [facility] Last Admin: 12/01/18 21:59 Dose: 300 mg Documented by: Glucagon () 1 mg IM .X1 PRN PRN Reason: Hypoglycemia Hydralazine HCl (Apresoline) 100 mg PO QHS [facility] Last Admin: 12/01/18 21:58 Dose: 100 mg Documented by: Hydralazine HCl (Apresoline) 200 mg PO DAILY [facility] Last Admin: 12/02/18 08:05 Dose: 200 mg Documented by: Bumetanide 12.5 mg/ N/A 50 mls @ 4 mls/hr CONT INF .[id number] [facility] Last Admin: 12/02/18 03:02 Dose: Not Given Documented by: Sodium Chloride () 250 mls @ 15 mls/hr IV .[id number] PRN PRN Reason: SALINE FLUSH Insulin Human Lispro (Humalog Kwikpen (Bkc)) 0 unit SC [facility]; Protocol Last Admin: 12/02/18 11:50 Dose: Not Given Documented by: Isosorbide Mononitrate (Imdur) 60 mg PO DAILY [facility] Last Admin: 12/02/18 08:06 Dose: 60 mg Documented by: Metolazone (Zaroxolyn) 5 mg PO DAILY PRN PRN Pantoprazole Sodium (Protonix) 40 mg PO DAILY [facility] Last Admin: 12/02/18 08:07 Dose: 40 mg Documented by: Potassium Chloride (K-Dur) 20 meq PO DAILY@0800 [facility] Last Admin: 12/02/18 08:05 Dose: 20 meq Documented by: Sodium Chloride () 10 - 40 ml IV UD PRN PRN Reason: SALINE FLUSH Last Admin: 12/01/18 19:57 Dose: 10 ml Documented by: - Past Medical History Past Medical History (Chronic Problems): Chronic Problems (Last Updated 11/18/18 @ 14:34 by Sandoval Tong DO) Valvular heart disease (Chronic) Iron deficiency anemia (Chronic) Tricuspid insufficiency (Chronic) Mitral insufficiency (Chronic) ELAINE (obstructive sleep apnea) (Chronic) CKD (chronic kidney disease), stage III (Chronic) 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 Fields Dyslipidemia (Chronic) COPD (chronic obstructive pulmonary disease) (Chronic) Diabetes mellitus type 2 in obese (Chronic) - Past Surgical History Surgical History: appendectomy, cholecystectomy, - - CABG x4, cholecystectomy, appendectomy, left lower extremity vein stripping, tonsillectomy. - Social History Smoking Status: Former smoker Alcohol: None Drugs: None - Family History Paternal Family History: Family History (Last Reviewed 11/18/18 @ 14:35 by Sandoval Tong DO) Mother Heart disease History Items: - - Patient notes a paternal family history of chronic COPD with tobacco use, heart disease and diabetes. Maternal Family History: Family History (Last Reviewed 11/18/18 @ 14:35 by Sandoval Tong DO) Mother Heart disease History Items: - - Patient notes a maternal family history of heart disease and diabetes. Review of Systems Constitutional: Denies: Chills, Fever, Weight Change HEENT: Denies: Head Aches, Sinus Congestion, Sinus Drainage Cardiovascular: Denies: Chest Pain, Palpitations Respiratory: Reports: Cough, Shortness of Breath, Shortness of breath at rest. Denies: Sputum production Gastrointestinal: Denies: Abdominal Pain, Nausea, Vomiting Genitourinary: Denies: Dysuria Musculoskeletal: Denies: Joint Pain, Joint Tenderness Skin: Denies: Rash, Wounds Neurological: Denies: Numbness, Tingling, Focal weakness Psychiatric: Denies: Anxiety, Depression, Homicidal Ideations, Suicidal Ideations Hematologic/ Lymphatic: Denies: Easy Bruising, Easy Bleeding Patient Problems: Active and Suspected Problems (Last Updated 11/18/18 @ 14:34 by Sandoval Tong DO) Congestive heart failure (Acute) - Physical Exam General: Alert, Oriented x3, Cooperative HEENT: Atraumatic, PERRLA, EOMI, Normocephalic Neck: Supple, No JVD, Negative Carotid Bruits Lungs: Clear to auscultation, Normal air movement Cardiovascular: Regular rate, No murmurs Abdomen: Bowel Sounds Present, Soft, Non Tender Extremities: Capillary Refill Less than 3 Seconds, Edema Skin: No rashes, No breakdown Musculoskeletal: No Tenderness to Palpation of Joints or Extremities Neurological: Cranial nerves II-XII grossly intact Psych/Mental Status: Normal Affect, Appropriate Vital Signs Temp Pulse Resp BP Pulse Ox 98.1 F 74 16 125/59 H 96 12/02/18 12:24 12/02/18 13:14 12/02/18 13:14 12/02/18 12:24 12/02/18 12:24 Oxygen Flow Rate (L/min) 1 Oxygen Delivery Method Nasal Cannula Weight: 115.2 kg Body Mass Index (BMI) 46.9 Finger Stick Blood Glucose 155 Intake and Output for Last 24 Hours 11/30/18 12/01/18 12/02/18 23:59 23:59 23:59 Intake Total 348.27 / 348.27 Output Total 2200 / 2200 Balance -1851.73 / -1851.73 Laboratory Tests Past 24 Hrs 12/01/18 12/01/18 12/01/18 15:30 15:30 15:30 WBC 11.5 H RBC 3.12 L Hgb 8.3 L Hct 27.2 L MCV 87.2 MCH 26.6 L MCHC 30.5 L RDW Std Deviation 52.0 H RDW Coeff of Becca 16.4 H Plt Count 303 MPV 9.8 Immature Gran % (Auto) 1.800 H Neut % (Auto) 89.8 H Lymph % (Auto) 4.4 L Ad[place] % (Auto) 3.0 Eos % (Auto) 0.7 Baso % (Auto) 0.3 Absolute Neuts (auto) 10.3 H Absolute Lymphs (auto) 0.50 L Nucleated RBC % 0 Differential Comment SCANNED PT 14.9 INR 1.2 APTT 37.3 H Sodium 132 L Potassium 5.0 Chloride 96 L Carbon Dioxide 26.0 Anion Gap 10 BUN 52 H Creatinine 2.48 H Estim Creat Clear Calc 16.46 Est GFR (MDRD) Af Amer 25 L Est GFR (MDRD) Non-Af 20 L BUN/Creatinine Ratio 21.0 H Glucose 266 H Calcium 8.6 Total Bilirubin 0.40 AST 32 ALT 29 Alkaline Phosphatase 185 H Troponin I < 0.015 B-Natriuretic Peptide Total Protein 6.9 Albumin 3.3 Globulin 3.6 Albumin/Globulin Ratio 0.9 Lipase 129 Urine Color Urine Clarity Urine pH Ur Specific Aurora Urine Protein Urine Glucose (UA) Urine Ketones Urine Occult Blood Urine Nitrite Urine Bilirubin Urine Urobilinogen Ur Leukocyte Esterase Urine RBC Urine WBC Ur Squamous Epith Cells Urine Bacteria Urine Mucus Urine Yeast 12/01/18 12/01/18 12/02/18 15:30 15:55 05:15 WBC 9.1 RBC 2.97 L Hgb 7.8 L Hct 25.8 L MCV 86.9 MCH 26.3 L MCHC 30.2 L RDW Std Deviation 51.1 H RDW Coeff of Becca 16.3 H Plt Count 274 MPV 9.7 Immature Gran % (Auto) 1.500 H Neut % (Auto) 81.2 H Lymph % (Auto) 9.2 L [place] % (Auto) 6.5 Eos % (Auto) 1.3 Baso % (Auto) 0.3 Absolute Neuts (auto) 7.4 Absolute Lymphs (auto) 0.84 Nucleated RBC % 0 Differential Comment PT INR APTT Sodium Potassium Chloride Carbon Dioxide Anion Gap BUN Creatinine Estim Creat Clear Calc Est GFR (MDRD) Af Amer Est GFR (MDRD) Non-Af BUN/Creatinine Ratio Glucose Calcium Total Bilirubin AST ALT Alkaline Phosphatase Troponin I B-Natriuretic Peptide 382.9 H Total Protein Albumin Globulin Albumin/Globulin Ratio Lipase Urine Color Yellow Urine Clarity Cloudy Urine pH 5.0 Ur Specific Aurora 1.015 Urine Protein 30 H Urine Glucose (UA) Normal Urine Ketones Negative Urine Occult Blood Negative Urine Nitrite Negative Urine Bilirubin Negative Urine Urobilinogen Normal Ur Leukocyte Esterase 100 H Urine RBC 0 SEEN Urine WBC 0-5 SEEN Ur Squamous Epith Cells 0-5 SEEN Urine Bacteria 0 SEEN Urine Mucus 0 SEEN Urine Yeast 2+ 12/02/18 05:15 WBC RBC Hgb Hct MCV MCH MCHC RDW Std Deviation RDW Coeff of Becca Plt Count MPV Immature Gran % (Auto) Neut % (Auto) Lymph % (Auto) [place] % (Auto) Eos % (Auto) Baso % (Auto) Absolute Neuts (auto) Absolute Lymphs (auto) Nucleated RBC % Differential Comment PT INR APTT Sodium 137 Potassium 3.7 Chloride 99 Carbon Dioxide 28.0 Anion Gap 10 BUN 54 H Creatinine 2.42 H Estim Creat Clear Calc 16.86 Est GFR (MDRD) Af Amer 25 L Est GFR (MDRD) Non-Af 21 L BUN/Creatinine Ratio 22.3 H Glucose 139 H Calcium 8.8 Total Bilirubin AST ALT Alkaline Phosphatase Troponin I B-Natriuretic Peptide Total Protein Albumin Globulin Albumin/Globulin Ratio Lipase Urine Color Urine Clarity Urine pH Ur Specific [place] Urine Protein Urine Glucose (UA) Urine Ketones Urine Occult Blood Urine Nitrite Urine Bilirubin Urine Urobilinogen Ur Leukocyte Esterase Urine RBC Urine WBC Ur Squamous Epith Cells Urine Bacteria Urine Mucus Urine Yeast POC Glucose 12/02/18 12/02/18 12/01/18 11:45 06:32 21:55 POC Glucose 117 H 150 H 229 H Assessment/Plan All Active Problems (Last Updated 11/18/18 @ 14:34 by Sandoval Tong DO) Congestive heart failure (Acute) Abdominal pain (Acute) Acute renal failure superimposed on stage 3 chronic kidney disease (Acute) Acute respiratory failure with hypoxia (Ruled-out) Acute exacerbation of CHF (congestive heart failure) (Ruled-out) Acute renal failure Chronic kidney disease stage III Congestive heart failure Overall volume status is decompensated. She failed multiple outpatient trial of diuretics. This is her third admission in the last 2 weeks with similar complaints. We sent her home on high-dose of Bumex and metolazone and she still came back with similar complaints. Blood pressure is high normal. Will check a renal artery Doppler to see if she has any renal artery stenosis. I did discuss with him about possibility of dialysis/ultrafiltration Patient would like to discuss with pulmonology and cardiology before proceeding with this. she is agreeable is everyone recommends it
--- NOTE | 2018-12-02 14:07 | CASEMGMT ---
Readmission chart review: Pt was initially admitted 11/18-11/22/18 for COPD, CHF, and dyspnea. See assessment done by Mel PADILLA CM on 11/18/18. Pt was discharged home with daughters with no concerns at that time. See f/u phone call completed by Opal PADILLA CM on 11/25/18. Pt then returned to [facility] on 11/26/18 for increased SOB and 'fluid in lungs.' Pt/family state pt compliant with meds/diet but state pt gained 8lbs in 3 days. Pt was admitted for CHF, KURT on CKD. Therapy recommending addl therapy at this time but pt declined HHC at discharge. Pt/family stated no further needs at that time. Pt returned to [facility] ED on 12/01/18 with increased SOB, 2lb weight gain and increased edema bilat legs/abd. Pt also c/o pain in left leg. Pt/family continue to insist that pt is compliant with diet/meds at home for HF. Cardiology and Pulmonology consulted to see pt while here. Pt did have episode of choking on her lunch and speech c/s was added as well. Per Dr. Chung, pt/family are agreeable to SNF at this time but when Desiree SW went to room to speak with them, pt declined SNF at this time. CM to follow for any further discharge planning/needs. This RN CM to room to talk to pt and pt states that her daughters keep her strict to her diet at home but pt states does not have much appetite. Pt states 'I am just so tired of doing all this, I just want to get better.' This RN KATIA discussed palliative with pt but pt does not remember discussing this with SW during last visit. Pt states that usually one of her daughters are with her at all times at home. Pt states that she is willing to do dialysis if all doctors agree that that would be the best option for her at this time. Advised pt to ask for CM if any further questions/concerns/needs arise, voices understanding. Dyan PADILLA CM
--- NOTE | 2018-12-02 14:40 | PCM.CONS.PUL ---
Problem List (1) Congestive heart failure Status: Acute Qualifiers: Heart failure type: diastolic Heart failure chronicity: acute on chronic Qualified Code(s): I50.33 - Acute on chronic diastolic (congestive) heart failure (2) Valvular heart disease Status: Chronic (3) Acute renal failure superimposed on stage 3 chronic kidney disease Status: Acute (4) Tricuspid insufficiency Status: Chronic Qualifiers: (5) Mitral insufficiency Status: Chronic Qualifiers: Cardiac valve disease etiology: nonrheumatic Qualified Code(s): I34.0 - Nonrheumatic mitral (valve) insufficiency (6) ELAINE (obstructive sleep apnea) Status: Chronic (7) CKD (chronic kidney disease), stage III Status: Chronic (8) Essential hypertension Status: Chronic (9) Pulmonary hypertension Status: Chronic (10) Morbid obesity with BMI of 40.0-44.9, adult Status: Chronic (11) H/O four vessel coronary artery bypass graft Status: Chronic Comment: NATHAN to the LAD, and SVG to the diagonal branch, and SVG to the LCx system, and an SVG to the RCA on 04/16/2013 at [facility] with Dr. Fields (12) Dyslipidemia Status: Chronic (13) Diabetes mellitus type 2 in obese Status: Chronic Reason for Consult Date of Consultation: 12/02/18 Reason for Consultation: Respiratory insufficiency History of Present Illness: The patient is a 72 year old F with history listed below and well-known to me from previous admissions and outpatient office, presented to [facility] on 12/01/2018 secondary to progressive shortness of breath over the last 3 days. Patient has had multiple admissions in the last 2 weeks and was discharged and feeling well. Patient reportedly started to have significant weight gain despite reported decreased p.o. intake. Patient had also reported some abdominal pain and a sensation of being swollen. Patient also reported some leg pain that was worse with palpation. In the ER, patient's vital signs were stable, but was requiring supplemental oxygen to maintain saturations. ER physician and noted scattered wheezing and diffuse mild abdominal tenderness without rebound or guarding. Patient was noted to have a slight leukocytosis of 11.5 and creatinine slightly elevated from baseline at 2.48. BNP was elevated at 383 and chest x-ray showed findings consistent with interstitial edema. Patient was admitted to the floor for further evaluation. Since being admitted, patient has been placed on a Bumex drip. Patient states that she feels subjectively improved compared to previous. Patient has been evaluated by cardiology and nephrology. Patient continues to have significant tenderness of the lower extremities and abdomen. Abdominal pain appears to be dependent in nature at this time. No associated cellulitis/rash, purulent sputum or sinus tenderness was noted. Past Medical History Past Medical History (Chronic Problems): Chronic Problems (Last Updated 11/18/18 @ 14:34 by Sandoval Tong DO) Valvular heart disease (Chronic) Iron deficiency anemia (Chronic) Tricuspid insufficiency (Chronic) Mitral insufficiency (Chronic) ELAINE (obstructive sleep apnea) (Chronic) CKD (chronic kidney disease), stage III (Chronic) Atherosclerotic heart disease of [place] coronary artery without angina pectoris (Chronic) NATHAN to the LAD, and SVG to the diagonal branch, and SVG to the LCx system, and an SVG to the RCA on 04/16/2013 at [facility] with Dr. 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 Fields Dyslipidemia (Chronic) COPD (chronic obstructive pulmonary disease) (Chronic) Diabetes mellitus type 2 in obese (Chronic) Medical History: Medical History (Last Updated 11/18/18 @ 14:34 by Sandoval Tong DO) Atherosclerotic heart disease of [place] coronary artery without angina pectoris (Chronic) I25.10 NATHAN to the LAD, and SVG to the diagonal branch, and SVG to the LCx system, and an SVG to the RCA on 04/16/2013 at [facility] with Dr. Fields Essential hypertension (Chronic) I10 Pulmonary hypertension (Chronic) I27.20 Morbid obesity with BMI of 40.0-44.9, adult (Chronic) E66.01, Z68.41 Dyslipidemia (Chronic) E78.5 COPD (chronic obstructive pulmonary disease) (Chronic) J44.9 Diabetes mellitus type 2 in obese (Chronic) E11.69, E66.9 (HFpEF) heart failure with preserved ejection fraction I50.30 CAD (coronary artery disease) (Inactive) I25.10 NATHAN to the LAD, and SVG to the diagonal branch, and SVG to the LCx system, and an SVG to the RCA on 04/16/2013 at [facility] with Dr. Fields Allergies Penicillins Allergy (Verified 12/01/18 14:55) Hives adhesive tape Adverse Reaction (Verified 12/01/18 14:55) Other Home Medications: Ambulatory Orders Medication Instructions Recorded Amitriptyline HCl [Elavil] 100 mg PO QHS 04/09/13 Aspirin E.C. [Ecotrin] 81 mg PO DAILY 10/25/17 Atorvastatin Calcium 80 mg PO DAILY 10/25/17 Gabapentin [Neurontin] 300 mg PO QHS 10/25/17 Amlodipine Besylate 10 mg PO DAILY 06/01/18 Ferrous Sulfate 325 mg PO 1200,1700 #120 tab 07/09/18 Potassium Chloride 20 meq PO DAILY #60 tab.er.prt 07/09/18 carvedilol 6.25 mg tablet 6.25 mg PO BID #60 tab 07/31/18 isosorbide mononitrate ER 60 mg 60 mg PO DAILY #60 tab 07/31/18 tablet,extended release 24 hr Albuterol Sulfate 1.25 mg IH 4X/DAY 08/20/18 Doxazosin Mesylate 8 mg PO QHS 08/20/18 Hydralazine HCl 200 mg PO DAILY 08/20/18 Omeprazole 40 mg PO DAILY 08/20/18 budesonide-formoterol HFA 160 2 puff INHALATION BID #1 ea 09/25/18 mcg-4.5 mcg/actuation aerosol inhaler tiotropium 2.5 mcg-olodaterol 2.5 2 puff INHALATION DAILY #4 g 10/28/18 mcg/actuation mist for inhalation Hydralazine HCl 100 mg PO QHS 11/26/18 Bumetanide [Bumex] 2 mg NG DAILY #30 tab 11/28/18 Glimepiride [Amaryl] 1 mg PO DAILY #30 tab 11/28/18 Metolazone [Zaroxolyn] 5 mg PO DAILY #15 tab 11/28/18 Pantoprazole Sodium [Protonix] 40 mg PO DAILY #14 tab 11/28/18 Surgical History: Surgical History (Last Reviewed 11/18/18 @ 14:35 by Sandoval Tong DO) 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 Fields Surgical History: appendectomy, cholecystectomy, - - CABG x4, cholecystectomy, appendectomy, left lower extremity vein stripping, tonsillectomy. 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 Maternal Family History: Family History (Last Reviewed 11/18/18 @ 14:35 by Sandoval Tong DO) Mother Heart disease History Items: - - Patient notes a maternal family history of heart disease and diabetes. Review of Systems Constitutional: Reports: Weakness, Weight Change - Significant fluctuations reported, - - Decreased p.o. intake. Denies: Chills, Fever, Night Sweats Eyes: Denies: Blurred vision, Double vision, Pain, Redness, Vision Change HEENT: Denies: Difficulty Hearing, Difficulty Swallowing, Ear Pain, Post Nasal Drip Cardiovascular: Reports: Chest Tightness, Edema. Denies: Chest Pain, Light Headedness Respiratory: Reports: Cough, Shortness of breath at rest, Shortness of breath upon exertion, Wheezing. Denies: Pleuritic Pain Gastrointestinal: Reports: Abdominal Pain, Nausea. Denies: Constipation, Diarrhea, Hematemesis, Hematochezia, Vomiting Genitourinary: Denies: Dysuria, Hematuria, Incontinence, Retention Gynecological: Denies: Breast symptoms, Vaginal bleeding Musculoskeletal: Reports: Foot Pain, Joint stiffness Skin: Denies: Dryness, Lesions, Pruritis, Rash, Wounds Neurological: Denies: Balance problems, Double vision, Slurred speech, Focal weakness, Incoordination, Seizures Psychiatric: Reports: Anxiety. Denies: Depression, Homicidal Ideations, Suicidal Ideations Endocrine: Denies: Change in Body Habitus, Polydipsia, Polyuria Hematologic/ Lymphatic: Denies: Adenopathy, Anemia, Easy Bruising, Easy Bleeding Patient Problems: Active and Suspected Problems (Last Updated 11/18/18 @ 14:34 by Sandoval Tong DO) Congestive heart failure (Acute) Objective: All imaging was personally reviewed. Echocardiogram shows persistence of pulmonary hypertension compared to previous right heart catheterization completed in July 2018. That heart catheterization did show type II pulmonary hypertension with a wedge of 31. Test x-ray on this hospitalization showed right lower lobe basilar atelectasis with prominent hilar vascular markings and findings consistent with interstitial edema. - Physical Exam General: Alert, Oriented x3, Cooperative, No apparent distress, - - Morbidly obese. Mild conversational dyspnea HEENT: Atraumatic, PERRLA, EOMI, Normocephalic, - - No scleral icterus or injection noted Oral: Moist Mucosa, No Gingival or Mucosal Lesions/ Ulcerations Neck: Supple, No Nodes, Trachea Midline, JVD, Right Lungs: No rhonchi, No rales, Diminished, Wheezes, - - Symmetric expansion. Cardiovascular: Regular rate, Regular Rhythm, Normal S1, Normal S2, Murmur - Grade 3/6 to 4/6 harsh midsystolic left lower sternal border. Diastolic murmur noted at the apex. Abdomen: Bowel Sounds Present, Soft, Non-Distended, Tender - On the ED dependent portion of the pannus. No rebound noted. Slight guarding noted., - - Unable to elicit fluid wave. Extremities: Edema - 3+ bilateral lower extremity edema with palpation tenderness. Skin: No rashes, No breakdown Musculoskeletal: No Tenderness to Palpation of Joints or Extremities Lymphatic: No Cervical, Supraclavicular, or Inguinal Adenopathy Neurological: Cranial nerves II-XII grossly intact, Neuro grossly intact, Motor Exam 5/5 strength throughout Psych/Mental Status: Alert and oriented to time, place, person, mood and affect Vital Signs Temp Pulse Resp BP Pulse Ox 36.7 C 74 16 125/59 H 96 12/02/18 12:24 12/02/18 13:14 12/02/18 13:14 12/02/18 12:24 12/02/18 12:24 Oxygen Flow Rate (L/min) 1 Oxygen Delivery Method Nasal Cannula Weight: 115.2 kg Body Mass Index (BMI) 46.9 Finger Stick Blood Glucose 155 Intake and Output for Last 24 Hours 11/30/18 12/01/18 12/02/18 23:59 23:59 23:59 Intake Total 348.27 / 348.27 Output Total 2200 / 2200 Balance -1851.73 / -1851.73 Laboratory Tests Past 24 Hrs 12/01/18 12/01/18 12/01/18 15:30 15:30 15:30 WBC 11.5 H RBC 3.12 L Hgb 8.3 L Hct 27.2 L MCV 87.2 MCH 26.6 L MCHC 30.5 L RDW Std Deviation 52.0 H RDW Coeff of Becca 16.4 H Plt Count 303 MPV 9.8 Immature Gran % (Auto) 1.800 H Neut % (Auto) 89.8 H Lymph % (Auto) 4.4 L [place] % (Auto) 3.0 Eos % (Auto) 0.7 Baso % (Auto) 0.3 Absolute Neuts (auto) 10.3 H Absolute Lymphs (auto) 0.50 L Nucleated RBC % 0 Differential Comment SCANNED PT 14.9 INR 1.2 APTT 37.3 H Sodium 132 L Potassium 5.0 Chloride 96 L Carbon Dioxide 26.0 Anion Gap 10 BUN 52 H Creatinine 2.48 H Estim Creat Clear Calc 16.46 Est GFR (MDRD) Af Amer 25 L Est GFR (MDRD) Non-Af 20 L BUN/Creatinine Ratio 21.0 H Glucose 266 H Calcium 8.6 Total Bilirubin 0.40 AST 32 ALT 29 Alkaline Phosphatase 185 H Troponin I < 0.015 B-Natriuretic Peptide Total Protein 6.9 Albumin 3.3 Globulin 3.6 Albumin/Globulin Ratio 0.9 Lipase 129 Urine Color Urine Clarity Urine pH Ur Specific [place] Urine Protein Urine Glucose (UA) Urine Ketones Urine Occult Blood Urine Nitrite Urine Bilirubin Urine Urobilinogen Ur Leukocyte Esterase Urine RBC Urine WBC Ur Squamous Epith Cells Urine Bacteria Urine Mucus Urine Yeast 12/01/18 12/01/18 12/02/18 15:30 15:55 05:15 WBC 9.1 RBC 2.97 L Hgb 7.8 L Hct 25.8 L MCV 86.9 MCH 26.3 L MCHC 30.2 L RDW Std Deviation 51.1 H RDW Coeff of Becca 16.3 H Plt Count 274 MPV 9.7 Immature Gran % (Auto) 1.500 H Neut % (Auto) 81.2 H Lymph % (Auto) 9.2 L [place] % (Auto) 6.5 Eos % (Auto) 1.3 Baso % (Auto) 0.3 Absolute Neuts (auto) 7.4 Absolute Lymphs (auto) 0.84 Nucleated RBC % 0 Differential Comment PT INR APTT Sodium Potassium Chloride Carbon Dioxide Anion Gap BUN Creatinine Estim Creat Clear Calc Est GFR (MDRD) Af Amer Est GFR (MDRD) Non-Af BUN/Creatinine Ratio Glucose Calcium Total Bilirubin AST ALT Alkaline Phosphatase Troponin I B-Natriuretic Peptide 382.9 H Total Protein Albumin Globulin Albumin/Globulin Ratio Lipase Urine Color Yellow Urine Clarity Cloudy Urine pH 5.0 Ur Specific [place] 1.015 Urine Protein 30 H Urine Glucose (UA) Normal Urine Ketones Negative Urine Occult Blood Negative Urine Nitrite Negative Urine Bilirubin Negative Urine Urobilinogen Normal Ur Leukocyte Esterase 100 H Urine RBC 0 SEEN Urine WBC 0-5 SEEN Ur Squamous Epith Cells 0-5 SEEN Urine Bacteria 0 SEEN Urine Mucus 0 SEEN Urine Yeast 2+ 12/02/18 05:15 WBC RBC Hgb Hct MCV MCH MCHC RDW Std Deviation RDW Coeff of Becca Plt Count MPV Immature Gran % (Auto) Neut % (Auto) Lymph % (Auto) [place] % (Auto) Eos % (Auto) Baso % (Auto) Absolute Neuts (auto) Absolute Lymphs (auto) Nucleated RBC % Differential Comment PT INR APTT Sodium 137 Potassium 3.7 Chloride 99 Carbon Dioxide 28.0 Anion Gap 10 BUN 54 H Creatinine 2.42 H Estim Creat Clear Calc 16.86 Est GFR (MDRD) Af Amer 25 L Est GFR (MDRD) Non-Af 21 L BUN/Creatinine Ratio 22.3 H Glucose 139 H Calcium 8.8 Total Bilirubin AST ALT Alkaline Phosphatase Troponin I B-Natriuretic Peptide Total Protein Albumin Globulin Albumin/Globulin Ratio Lipase Urine Color Urine Clarity Urine pH Ur Specific [place] Urine Protein Urine Glucose (UA) Urine Ketones Urine Occult Blood Urine Nitrite Urine Bilirubin Urine Urobilinogen Ur Leukocyte Esterase Urine RBC Urine WBC Ur Squamous Epith Cells Urine Bacteria Urine Mucus Urine Yeast POC Glucose 12/02/18 12/02/18 12/01/18 11:45 06:32 21:55 POC Glucose 117 H 150 H 229 H Clinical Impression(s) from Imaging Studies Chest X-Ray 12/01/18 15:44 IMPRESSION: Findings consistent with interstitial edema and component of pulmonary vascular congestion with mild cardiomegaly concern procedure tip exacerbation in the appropriate clinical setting. Electronically Signed: Frank Agarwal DO at 16:07 EDT , Service support , Assessment/Plan All Active Problems (Last Updated 11/18/18 @ 14:34 by Sandoval Tong DO) Congestive heart failure (Acute) Abdominal pain (Acute) Acute renal failure superimposed on stage 3 chronic kidney disease (Acute) Acute respiratory failure with hypoxia (Ruled-out) RECOMMENDATIONS: 1. Continue diuresis as tolerated 2. Continue to monitor continuous pulse ox and telemetry 3. Use baseline BiPAP with sleep and for rescue 4. No indication for IV steroids or antibiotics from my perspective 5. Wean supplemental oxygen as tolerated 6. Walking oximetry prior to discharge IMPRESSIONS: 1. Acute hypoxic respiratory insufficiency secondary to acute on chronic diastolic CHF Patient is appropriately on diuretic therapy. Agree with fluid restriction. Unclear if patient is having an element of exertional hypoxemia leading to exacerbation of pulmonary artery pressures and cor pulmonale. Patient does not appear to have any exacerbation of underlying lung disorder at this time. Agree with diuretic therapy. This is complicated by patient's current renal status. Cardiology is following. From a pulmonary perspective, would not be opposed to evaluation/placement of fistula for possible ultrafiltration. Doubt right heart catheterization would change her overall perspective at this time as patient clinically appears to be overloaded and would likely have elevated pulmonary capillary wedge pressure. 2. Type II pulmonary hypertension/obstructive sleep apnea Patient with moderate to severe elevation on right heart cath in the past. Acute hypoxemia would exacerbate patient's underlying cor pulmonale could lead to flash pulmonary edema. Patient saturations are doing well at this time. We will continue to monitor. Patient appears to be responding well to diuretic therapy. Patient should have a walking oximetry prior to discharge. Continue BiPAP with sleep. This is complicated by relatively severe MVR and diffuse aortic valve calcification 3. Hypertension/diabetes mellitus/iron deficiency anemia/advanced age/morbid obesity Complicates care, management, recovery and prognosis. Patient has received iron infusions recently for iron deficiency anemia. Continue to monitor blood sugars closely. Encourage weight loss. Code Visit Inpatient E&M: 73297 Init Hosp L3
[2018-12-02] MEDS: Ascorbic Acid 500 MG Tablet PO (16:20)
[2018-12-02 16:31] LABS: Bedside Glucose 114 mg/dL (70-110)
[2018-12-02] MEDS: Gabapentin 300 MG Capsule PO (21:55)
[2018-12-02] MEDS: hydrALAZINE 50 MG Tablet 100 MG PO (21:55)
[2018-12-02] MEDS: Doxazosin 4 MG Tablet 8 MG PO (21:56)
[2018-12-02] MEDS: Amitriptyline 100 MG Tablet PO (21:56)
[2018-12-02 22:21] LABS: Bedside Glucose 70 mg/dL (70-110)
[2018-12-03] VITALS (19 sets, daily range): BP systolic 134–177; BP diastolic 48–72; PULSE 75–89; RESP 16–20; TEMP 36.6–37.7; O2SAT 91–99
[2018-12-03 04:16] LABS: Bedside Glucose 60 mg/dL (70-110)
[2018-12-03] MEDS: Budesonide Respules 0.5 MG/2 ML AMPUL.NEB. INHALATION ×2 (06:53→19:27)
[2018-12-03] MEDS: Ipratropium/Albuterol Sulfate 3 ML AMPUL.NEB INHALATION ×3 (06:53→19:27)
[2018-12-03 06:54] LABS: Absolute Lymphocyte Count 0.93 X10^3/uL (0.83-4.51); Absolute Neutrophil Count 7.5 X10^3/uL (2.0-7.7); Basophil# 0.03 X10^3/uL; Basophil% 0.3 % (0-1); Eosinophil# 0.24 X10^3/uL; Eosinophils% 2.5 % (0-5); Hematocrit 25.8 % (37-47); Hemoglobin 7.9 g/dL (12.0-15.0); Lymphocyte # 0.93 X10^3/ul (4.0); Lymphocyte % 9.8 % (19-41); Mean Corp Hgb Conc 30.6 g/dL (32-36); Mean Corpuscular Hgb 26.4 pg (27.0-32.0); Mean Corpuscular Volume 86.3 fL (81-99); Mean Platelet Vol. 9.9 fl (6.2-12.0); Monocyte# 0.62 X10^3/uL; Monocyte% 6.5 % (0-10); NRBC Flagged by Analyzer 0 % (0-5); Neutrophil # 7.53 X10^3/uL (2.7-7.7); Neutrophil % 79.5 % (47-70); Platelet Count 288 K/mm3 (150-450); RBC Distribution Width CV 16.4 % (11.6-14.6); RBC Distribution Width SD 51.5 fl (35.1-43.9); Red Blood Count 2.99 M/mm3 (4.2-5.4); White Blood Count 9.5 K/mm3 (4.4-11.0)
[2018-12-03 06:55] LABS: Bedside Glucose 93 mg/dL (70-110)
[2018-12-03 07:07] LABS: Anion Gap 4 (5-15); BUN 53 mg/dL (7-18); BUN/Creat Ratio 22.8 RATIO (10-20); Calcium,Total 8.8 mg/dL (8.5-10.1); Chloride 99 mmol/L (98-107); Creatinine, Serum 2.32 mg/dL (0.55-1.02); EST Glomerular Filtration Rate 22 mL/min (>60); Est Glom Filt Rate - Afr Amer 27 mL/min (>60); Estimated Creatinine Clearance 17.59 ml/min; Glucose 88 mg/dL (74-106); Sodium Level 135 mmol/L (136-145)
--- NOTE | 2018-12-03 08:43 | PN_ITS ---
Patient Problems: Active and Suspected Problems (Last Updated 11/18/18 @ 14:34 by Sandoval Tong DO) Congestive heart failure (Acute) Subjective: Patient reports subjective improvement in overall condition. Patient feels that she is improving back to her baseline. Oxygenation status has continued to improve. Patient denies any cough or chest pain. No abdominal pain is been reported. - Physical Exam General: Alert, Oriented x3, Cooperative, No apparent distress, Well developed, Well nourished, - - Morbidly obese. HEENT: Atraumatic, PERRLA, EOMI, Normocephalic, - - No scleral icterus or injection noted. Glasses in place. Oral: Moist Mucosa, No Gingival or Mucosal Lesions/ Ulcerations Neck: Supple, No Nodes, Trachea Midline, JVD, Right Lungs: No rhonchi, No wheeze, No rales, Diminished, - - Symmetric expansion. No dullness to percussion. Cardiovascular: Regular rate, Regular Rhythm, Normal S1, Normal S2, Murmur - Unchanged, No rub noted, No Gallop Abdomen: Bowel Sounds Present, Soft, Non Tender, Non-Distended, Obese Extremities: No clubbing, No cyanosis, Capillary Refill Less than 3 Seconds, Edema Skin: - - No significant change compared to previous Musculoskeletal: No Tenderness to Palpation of Joints or Extremities Lymphatic: No Cervical, Supraclavicular, or Inguinal Adenopathy Neurological: Cranial nerves II-XII grossly intact, Neuro grossly intact, Motor Exam 5/5 strength throughout Psych/Mental Status: Alert and oriented to time, place, person, mood and affect Vital Signs Temp Pulse Resp BP Pulse Ox 36.9 C 77 18 141/60 H 93 12/03/18 03:50 12/03/18 07:16 12/03/18 06:53 12/03/18 03:50 12/03/18 06:53 Oxygen Flow Rate (L/min) 2.5 Oxygen Delivery Method Nasal Cannula Weight: 115.2 kg Body Mass Index (BMI) 46.9 Finger Stick Blood Glucose 155 Intake and Output for Last 24 Hours 12/01/18 12/02/18 12/03/18 23:59 23:59 23:59 Intake Total 878.27 / 878.27 170 / 170 Output Total 2800 / 2800 100 / 100 Balance -1921.73 / -1921.73 70 / 70 Laboratory Tests Past 24 Hrs 12/03/18 12/03/18 06:33 06:33 WBC 9.5 RBC 2.99 L Hgb 7.9 L Hct 25.8 L MCV 86.3 MCH 26.4 L MCHC 30.6 L RDW Std Deviation 51.5 H RDW Coeff of Becca 16.4 H Plt Count 288 MPV 9.9 Immature Gran % (Auto) 1.400 H Neut % (Auto) 79.5 H Lymph % (Auto) 9.8 L [place] % (Auto) 6.5 Eos % (Auto) 2.5 Baso % (Auto) 0.3 Absolute Neuts (auto) 7.5 Absolute Lymphs (auto) 0.93 Nucleated RBC % 0 Sodium 135 L Potassium 3.0 L Chloride 99 Carbon Dioxide 32.0 Anion Gap 4 L BUN 53 H Creatinine 2.32 H Estim Creat Clear Calc 17.59 Est GFR (MDRD) Af Amer 27 L Est GFR (MDRD) Non-Af 22 L BUN/Creatinine Ratio 22.8 H Glucose 88 Calcium 8.8 POC Glucose 12/03/18 12/03/18 12/02/18 06:34 03:57 21:51 POC Glucose 93 60 L 70 12/02/18 12/02/18 16:19 11:45 POC Glucose 114 H 117 H Medical Necessity - Tobacco Use Smoking Status: Former smoker Assessment/Plan All Active Problems (Last Updated 11/18/18 @ 14:34 by Sandoval Tong DO) Congestive heart failure (Acute) Abdominal pain (Acute) Acute renal failure superimposed on stage 3 chronic kidney disease (Acute) Acute respiratory failure with hypoxia (Ruled-out) RECOMMENDATIONS: 1. Continue diuresis as tolerated. Aggressive potassium repletion ordered 2. Continue to monitor continuous pulse ox and telemetry 3. Use baseline BiPAP with sleep and for rescue 4. No indication for IV steroids or antibiotics from my perspective 5. Wean supplemental oxygen as tolerated 6. Walking oximetry prior to discharge IMPRESSIONS: 1. Acute hypoxic respiratory insufficiency secondary to acute on chronic diastolic CHF Patient is appropriately on diuretic therapy. Agree with fluid restriction. Unclear if patient is having an element of exertional hypoxemia leading to exacerbation of pulmonary artery pressures and cor pulmonale. Patient does not appear to have any exacerbation of underlying lung disorder at this time. Agree with diuretic therapy. Patient is having significant hypokalemia, likely secondary to diuresis. This will be replaced aggressively. Cardiology is following. From a pulmonary perspective, would not be opposed to evaluation/placement of fistula for possible ultrafiltration. Doubt right heart catheterization would change her overall perspective at this time as patient clinically appears to be overloaded and would likely have elevated pulmonary capillary wedge pressure. 2. Type II pulmonary hypertension/obstructive sleep apnea Patient with moderate to severe elevation on right heart cath in the past. Acute hypoxemia would exacerbate patient's underlying cor pulmonale could lead to flash pulmonary edema. Patient saturations are doing well at this time. We will continue to monitor. Patient appears to be responding well to diuretic therapy. Patient should have a walking oximetry prior to discharge. It will be impaired if the patient's saturations stay above 90% at all times, even with ambulation. Continue BiPAP with sleep. This is complicated by relatively severe MVR and diffuse aortic valve calcification 3. Hypertension/diabetes mellitus/iron deficiency anemia/advanced age/morbid obesity Complicates care, management, recovery and prognosis. Patient has received iron infusions recently for iron deficiency anemia. Continue to monitor blood sugars closely. Encourage weight loss. Code Visit Inpatient E&M: 08008 Subs Hosp L2
[2018-12-03] MEDS: hydrALAZINE 50 MG Tablet 200 MG PO (09:33)
[2018-12-03] MEDS: amLODIPine 10 MG Tablet PO (09:34)
[2018-12-03] MEDS: Isosorbide Mononitrate 60 MG Tablet PO (09:39)
[2018-12-03] MEDS: Carvedilol 6.25 MG Tablet PO ×2 (09:39→22:27)
--- NOTE | 2018-12-03 09:57 | PCM.PN.REN ---
Patient Problems: Active and Suspected Problems (Last Updated 11/18/18 @ 14:34 by Sandoval Tong DO) Congestive heart failure (Acute) Subjective: no new complaints - Physical Exam General: Alert, Oriented x3, Cooperative HEENT: Atraumatic, PERRLA, EOMI, Normocephalic Neck: Supple, No JVD, Negative Carotid Bruits Lungs: Clear to auscultation, Normal air movement Cardiovascular: Regular rate, No murmurs Abdomen: Bowel Sounds Present, Soft, Non Tender Extremities: No edema, Capillary Refill Less than 3 Seconds Skin: No rashes, No breakdown Musculoskeletal: No Tenderness to Palpation of Joints or Extremities Neurological: Cranial nerves II-XII grossly intact Psych/Mental Status: Normal Affect, Appropriate Vital Signs Temp Pulse Resp BP Pulse Ox 98.0 F 84 17 177/67 H 93 12/03/18 08:58 12/03/18 09:33 12/03/18 08:58 12/03/18 09:33 12/03/18 08:58 Oxygen Flow Rate (L/min) 2 Oxygen Delivery Method Nasal Cannula Weight: 115.2 kg Body Mass Index (BMI) 46.9 Finger Stick Blood Glucose 155 Intake and Output for Last 24 Hours 12/01/18 12/02/18 12/03/18 23:59 23:59 23:59 Intake Total 878.27 / 878.27 170 / 170 Output Total 2800 / 2800 100 / 100 Balance -1921.73 / -1921.73 70 / 70 Laboratory Tests Past 24 Hrs 12/03/18 12/03/18 06:33 06:33 WBC 9.5 RBC 2.99 L Hgb 7.9 L Hct 25.8 L MCV 86.3 MCH 26.4 L MCHC 30.6 L RDW Std Deviation 51.5 H RDW Coeff of Becca 16.4 H Plt Count 288 MPV 9.9 Immature Gran % (Auto) 1.400 H Neut % (Auto) 79.5 H Lymph % (Auto) 9.8 L Ste[place]s % (Auto) 6.5 Eos % (Auto) 2.5 Baso % (Auto) 0.3 Absolute Neuts (auto) 7.5 Absolute Lymphs (auto) 0.93 Nucleated RBC % 0 Sodium 135 L Potassium 3.0 L Chloride 99 Carbon Dioxide 32.0 Anion Gap 4 L BUN 53 H Creatinine 2.32 H Estim Creat Clear Calc 17.59 Est GFR (MDRD) Af Amer 27 L Est GFR (MDRD) Non-Af 22 L BUN/Creatinine Ratio 22.8 H Glucose 88 Calcium 8.8 POC Glucose 12/03/18 12/03/18 12/02/18 06:34 03:57 21:51 POC Glucose 93 60 L 70 12/02/18 12/02/18 16:19 11:45 POC Glucose 114 H 117 H Medical Necessity - Tobacco Use Smoking Status: Former smoker Assessment/Plan All Active Problems (Last Updated 11/18/18 @ 14:34 by Sandoval Tong DO) Congestive heart failure (Acute) Abdominal pain (Acute) Acute renal failure superimposed on stage 3 chronic kidney disease (Acute) Acute respiratory failure with hypoxia (Ruled-out) Acute renal failure Chronic kidney disease stage III Congestive heart failure Overall volume status is decompensated. She failed multiple outpatient trial of diuretics. This is her third admission in the last 2 weeks with similar complaints. We sent her home on high-dose of Bumex and metolazone and she still came back with similar complaints. Blood pressure is high normal. discussed with patient and family about dialysis. explained procedure involved. they are agreeable d/w Dr Clarke, Dr Chung, Dr Tavarez will have a tunneled line placed today patient is only KURT will need placement in a dialysis unit as well
--- NOTE | 2018-12-03 10:18 | NURSING ---
Report called to RANDY Sorensen in [place]. Informed that RN attempted x2 to restart another IV without success. Patient currently has 1 IV functioning. Per anastesia, patient may continue Bumex drip in surgery. Sending patient down to OR with K-rider and Bumex infusing.
--- NOTE | 2018-12-03 10:26 | CON.PCM_ITS ---
Problem List (1) Acute renal failure Status: Acute Reason for Consult Date of Consultation: 12/03/18 Reason for Consultation: Acute on chronic renal failure. In need of tunneled dialysis catheter. History of Present Illness: The patient is a 72 year old F who presents to the ED with increased shortness of breath and weight gain. She is a poor historian and unfortunately her daughters were not present to assist with her history. Patient was recently admitted for COPD exacerbation, acute CHF and dyspnea during 11/18-11/22. Patient is on continuous oxygen via nasal canula, 2.5-3 Liters. She follows with Dr. Ferreira as an outpatient. Patient has had cardiac bypass x 4 vessels approximately 5 years ago at [facility]. She follows with Dr. Clarke. Patient has never been on dialysis previously. Patient denies previous dialysis catheter placement, fractured collar bone or IV neck placement. She does follow with a squeezer operator, Dr. Waite. Patient denies previous myocardial infarction, stroke or blood clots. Past Medical History Past Medical History (Chronic Problems): Chronic Problems (Last Updated 11/18/18 @ 14:34 by Sandoval Tong DO) Valvular heart disease (Chronic) Iron deficiency anemia (Chronic) Tricuspid insufficiency (Chronic) Mitral insufficiency (Chronic) ELAINE (obstructive sleep apnea) (Chronic) CKD (chronic kidney disease), stage III (Chronic) Atherosclerotic heart disease of [place] coronary artery without angina pectoris (Chronic) NATHAN to the LAD, and SVG to the diagonal branch, and SVG to the LCx system, and an SVG to the RCA on 04/16/2013 at [facility] with Dr. 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 Fields Dyslipidemia (Chronic) COPD (chronic obstructive pulmonary disease) (Chronic) Diabetes mellitus type 2 in obese (Chronic) Medical History: Medical History (Last Reviewed 12/03/18 @ 10:40 by Eusebia Ramirez PA-C) Atherosclerotic heart disease of [place] coronary artery without angina pectoris (Chronic) I25.10 NATHAN to the LAD, and SVG to the diagonal branch, and SVG to the LCx system, and an SVG to the RCA on 04/16/2013 at [facility] with Dr. Fields Essential hypertension (Chronic) I10 Pulmonary hypertension (Chronic) I27.20 Morbid obesity with BMI of 40.0-44.9, adult (Chronic) E66.01, Z68.41 Dyslipidemia (Chronic) E78.5 COPD (chronic obstructive pulmonary disease) (Chronic) J44.9 Diabetes mellitus type 2 in obese (Chronic) E11.69, E66.9 (HFpEF) heart failure with preserved ejection fraction I50.30 CAD (coronary artery disease) (Inactive) I25.10 NATHAN to the LAD, and SVG to the diagonal branch, and SVG to the LCx system, and an SVG to the RCA on 04/16/2013 at [facility] with Dr. Fields Allergies Penicillins Allergy (Verified 12/01/18 14:55) Hives adhesive tape Adverse Reaction (Verified 12/01/18 14:55) Other Home Medications: Ambulatory Orders Medication Instructions Recorded Amitriptyline HCl [Elavil] 100 mg PO QHS 04/09/13 Aspirin E.C. [Ecotrin] 81 mg PO DAILY 10/25/17 Atorvastatin Calcium 80 mg PO DAILY 10/25/17 Gabapentin [Neurontin] 300 mg PO QHS 10/25/17 Amlodipine Besylate 10 mg PO DAILY 06/01/18 Ferrous Sulfate 325 mg PO 1200,1700 #120 tab 07/09/18 Potassium Chloride 20 meq PO DAILY #60 tab.er.prt 07/09/18 carvedilol 6.25 mg tablet 6.25 mg PO BID #60 tab 07/31/18 isosorbide mononitrate ER 60 mg 60 mg PO DAILY #60 tab 07/31/18 tablet,extended release 24 hr Albuterol Sulfate 1.25 mg IH 4X/DAY 08/20/18 Doxazosin Mesylate 8 mg PO QHS 08/20/18 Hydralazine HCl 200 mg PO DAILY 08/20/18 Omeprazole 40 mg PO DAILY 08/20/18 budesonide-formoterol HFA 160 2 puff INHALATION BID #1 ea 09/25/18 mcg-4.5 mcg/actuation aerosol inhaler tiotropium 2.5 mcg-olodaterol 2.5 2 puff INHALATION DAILY #4 g 10/28/18 mcg/actuation mist for inhalation Hydralazine HCl 100 mg PO QHS 11/26/18 Bumetanide [Bumex] 2 mg NG DAILY #30 tab 11/28/18 Glimepiride [Amaryl] 1 mg PO DAILY #30 tab 11/28/18 Metolazone [Zaroxolyn] 5 mg PO DAILY #15 tab 11/28/18 Pantoprazole Sodium [Protonix] 40 mg PO DAILY #14 tab 11/28/18 Surgical History: Surgical History (Last Reviewed 12/03/18 @ 10:40 by Eusebia Ramirez PA-C) H/O four vessel coronary artery bypass graft (Chronic) Onset Date: ~04/16/13 Z95.1 NATHAN to the LAD, and SVG to the diagonal branch, and SVG to the LCx system, and an SVG to the RCA on 04/16/2013 at [facility] with Dr. Fields Surgical History: appendectomy, cholecystectomy, - - CABG x4, cholecystectomy, appendectomy, left lower extremity vein stripping, tonsillectomy. Psychiatric History: Anxiety RESEARCH RN SPEC History: No pertinent RESEARCH RN SPEC history Lives: With Family Smoking Status: Former smoker Alcohol: None Drugs: None - *Family History Paternal Family History: Family History (Last Reviewed 12/03/18 @ 10:40 by Eusebia Ramirez PA-C) Mother Heart disease History Items: - - Patient notes a paternal family history of chronic COPD with tobacco use, heart disease and diabetes. Maternal Family History: Family History (Last Reviewed 12/03/18 @ 10:40 by Eusebia Ramirez PA-C) Mother Heart disease History Items: - - Patient notes a maternal family history of heart disease and diabetes. Review of Systems Constitutional: Reports: Anorexia, Weakness, Weight Change, Fatigue. Denies: Chills, Fever HEENT: Denies: Head Aches, Sinus Congestion, Sinus Drainage Cardiovascular: Denies: Chest Pain, Palpitations Respiratory: Reports: Shortness of Breath Gastrointestinal: Denies: Abdominal Pain, Nausea, Vomiting Genitourinary: Reports: Dysuria Musculoskeletal: Denies: Joint Pain, Joint Tenderness Skin: Reports: Dryness Neurological: Reports: Balance problems Psychiatric: Denies: Anxiety, Depression, Homicidal Ideations, Suicidal Ideations Hematologic/ Lymphatic: Reports: Anemia Patient Problems: Active and Suspected Problems (Last Updated 11/18/18 @ 14:34 by Sandoval Tong DO) Congestive heart failure (Acute) Acute renal failure (Acute) - Physical Exam General: Alert, Oriented x3, Cooperative HEENT: Atraumatic, PERRLA, EOMI, Normocephalic Neck: Supple, No JVD, Negative Carotid Bruits Lungs: Clear to auscultation, - - Oxygen via nasal canula. Barrel chested Cardiovascular: Regular rate, Murmur Abdomen: Bowel Sounds Present, Soft, Non Tender, Obese Extremities: No edema, Capillary Refill Less than 3 Seconds Skin: No rashes, No breakdown Musculoskeletal: No Tenderness to Palpation of Joints or Extremities Neurological: Neuro grossly intact Psych/Mental Status: Normal Affect, Appropriate Vital Signs Temp Pulse Resp BP Pulse Ox 98.0 F 84 17 177/67 H 93 12/03/18 08:58 12/03/18 09:33 12/03/18 08:58 12/03/18 09:33 12/03/18 08:58 Oxygen Flow Rate (L/min) 2 Oxygen Delivery Method Nasal Cannula Weight: 253 lb 15.56 oz Body Mass Index (BMI) 46.9 Finger Stick Blood Glucose 155 Intake and Output for Last 24 Hours 12/01/18 12/02/18 12/03/18 23:59 23:59 23:59 Intake Total 878.27 / 878.27 170 / 170 Output Total 2800 / 2800 100 / 100 Balance -1921.73 / -1921.73 70 / 70 Laboratory Tests Past 24 Hrs 12/03/18 12/03/18 06:33 06:33 WBC 9.5 RBC 2.99 L Hgb 7.9 L Hct 25.8 L MCV 86.3 MCH 26.4 L MCHC 30.6 L RDW Std Deviation 51.5 H RDW Coeff of Becca 16.4 H Plt Count 288 MPV 9.9 Immature Gran % (Auto) 1.400 H Neut % (Auto) 79.5 H Lymph % (Auto) 9.8 L [place] % (Auto) 6.5 Eos % (Auto) 2.5 Baso % (Auto) 0.3 Absolute Neuts (auto) 7.5 Absolute Lymphs (auto) 0.93 Nucleated RBC % 0 Sodium 135 L Potassium 3.0 L Chloride 99 Carbon Dioxide 32.0 Anion Gap 4 L BUN 53 H Creatinine 2.32 H Estim Creat Clear Calc 17.59 Est GFR (MDRD) Af Amer 27 L Est GFR (MDRD) Non-Af 22 L BUN/Creatinine Ratio 22.8 H Glucose 88 Calcium 8.8 POC Glucose 12/03/18 12/03/18 12/02/18 06:34 03:57 21:51 POC Glucose 93 60 L 70 12/02/18 12/02/18 16:19 11:45 POC Glucose 114 H 117 H Assessment/Plan All Active Problems (Last Updated 11/18/18 @ 14:34 by Sandoval Tong DO) Congestive heart failure (Acute) Acute renal failure (Acute) Abdominal pain (Acute) Acute renal failure superimposed on stage 3 chronic kidney disease (Acute) Acute respiratory failure with hypoxia (Ruled-out) I have been consulted in conjunction with Dr. Tavarez. Impression: Acute on chronic renal failure. In need of tunneled dialysis catheters. Plan: Dr. Tavarez will plan to perform a right possible left chest tunneled dialysis catheter placement. procedure details, risks and benefits have been explained to the patient, her brother and sister in law. Patient has had the opportunity to ask and have questions answered. Patient verbally understands and agrees with the plan. Thank you for allowing us to participate in this patient's care. Code Visit Office Visits / Consults: [id number] IP Consult L3
[2018-12-03] MEDS: Potassium Chloride 10mEq/100mL 10 MEQ/100 ML IV.SOLN. 100 MEQ IV BOLUS ×4 (10:37→14:07)
--- NOTE | 2018-12-03 11:21 | RAD_ITS ---
STUDY: X-RAY CHEST REASON FOR EXAM: Female, 72 years old. Dialysis catheter placement. TECHNIQUE: Single AP portable view of the chest. COMPARISON: Comparison is made with prior study dated December 01, 2018. FINDINGS: And right-sided dialysis catheter has been placed. The tip is in the midportion of the superior vena cava appear Elevation of the right hemidiaphragm. Vascular congestion and mild CHF. Right basilar atelectasis. Blunting of both costophrenic angles. Sternal cerclage wires and vascular clips are present from a prior sternotomy and coronary artery bypass graft procedure (CABG). Normal mediastinum and james. Normal visualized pulmonary arteries. There is atherosclerotic calcification of the aortic arch with tortuosity. Normal visualized thoracic spine. Normal visualized ribs, clavicles, and shoulders. There is no demonstrated abnormality of the visualized soft tissue structures of the upper abdomen. RAD/Chest 1 View (Portable) IMPRESSION: The tip of the dialysis catheter is in the midportion of the superior vena cava. Elevation of the right hemidiaphragm with a mild degree of CHF. Electronically Signed: Peter Bahena, at 13:00 EDT , Service support ,
[2018-12-03] MEDS: Bupivacaine Mpf 0.5% 30 ML VIAL (11:37)
[2018-12-03] MEDS: Heparin 10,000 UNITS/10 ML Vial 10000 UNITS (11:51)
--- NOTE | 2018-12-03 12:01 | PCM.OPRPT ---
Problem List (1) Congestive heart failure Status: Acute Qualifiers: Heart failure type: diastolic Heart failure chronicity: acute on chronic Qualified Code(s): I50.33 - Acute on chronic diastolic (congestive) heart failure (2) Acute renal failure superimposed on stage 3 chronic kidney disease Status: Acute Qualifiers: Acute renal failure type: unspecified Qualified Code(s): N17.9 - Acute kidney failure, unspecified; N18.3 - Chronic kidney disease, stage 3 (moderate) Report of Operation Date of Procedure: 12/03/18 Pre-Operative Diagnosis: Congestive heart failure and acute renal failure Post-Operative Diagnosis: Same Surgery/Procedure Performed:: Right internal jugular double-lumen palindrome tunneled hemodialysis catheter placement. Reference #[id number]. Lot #[id number]. Expiry date 07/04/2024 Description of Surgical Findings:: Timeout and informed consent was obtained. 72-year-old female taken the operative placement the table. She immediately desaturated to 77% oxygen despite on O2. It was elected to proceed with anesthesia monitoring but no IV sedation. The right neck and chest were sterilely prepped and draped. Percent lidocaine mixed 50-50 with 0.5% Marcaine was used as a local anesthetic. Throughout the procedure total 23 cc was used. Ultrasound was used to identify the right internal jugular vein. Local was instilled. Micropuncture inserted. Micropuncture wire inserted. Micropuncture sheath inserted. 035 J-wire was placed. Local was instilled down upon the chest wall. The 19 cm pre-curved palindrome dialysis cath was tunneled from the chest to the neck. Serial dilatation was performed over the wire. Fluoroscopy demonstrated good position. The sheath dilator was placed. The wire dilator were removed. The catheter was advanced through the sheath. The sheath was split and the catheter was positioned at the SVC atrial junction. It aspirated easily. It was flushed with saline and then 2 cc per channel of heparinized saline. The catheter was secured to the exit site with interrupted 3-0 nylon. The neck site was closed with interrupted 5-0 Vicryl subdermal stitch. Steri-Strip Telfa OpSite dressing applied. Silver impregnated dressing was placed on the exit site. An additional cover pressure dressing of 4 x 4's and tape were applied. Sponge and instrument and needle counts were reported the surgeon be correct. Blood loss was minimal. Specimens none. Drains none. Blood loss minimal. The patient was taken to the recovery area in satisfactory condition without apparent complication Perry Tavarez M.D., F.A.C.S. Type of Anesthesia:: Local Anesthesiologist: Toro Raymond
[2018-12-03 13:21] LABS: Bedside Glucose 114 mg/dL (70-110)
--- NOTE | 2018-12-03 14:17 | PN_ITS ---
<Stefanie Antonio - Last Filed: 12/03/18 14:44> Patient Problems: Active and Suspected Problems (Last Reviewed 12/03/18 @ 10:40 by Eusebia Ramirez PA-C) Congestive heart failure (Acute) Acute renal failure (Acute) Subjective: Patient seen and examined. Underwent dialysis catheter placement. Patient states she currently feels well. Denies significant shortness of breath. - Physical Exam General: Alert, Oriented x3, Cooperative HEENT: Atraumatic, PERRLA, EOMI, Normocephalic Neck: Supple, No JVD, Negative Carotid Bruits Lungs: Diminished, - - Crackles bilateral bases Cardiovascular: Regular rate, Regular Rhythm, Normal S1, Normal S2, Murmur Abdomen: Bowel Sounds Present, Soft, Non Tender, Non-Distended, Obese Extremities: No clubbing, No cyanosis, Edema - BLLE Skin: No rashes, No breakdown, - - post op dressing intact Musculoskeletal: No Tenderness to Palpation of Joints or Extremities Neurological: Cranial nerves II-XII grossly intact, Neuro grossly intact Psych/Mental Status: Normal Affect, Appropriate Vital Signs Temp Pulse Resp BP Pulse Ox 97.8 F 76 16 137/60 H 99 12/03/18 13:00 12/03/18 13:22 12/03/18 13:22 12/03/18 13:00 12/03/18 13:00 Oxygen Flow Rate (L/min) 2 Oxygen Delivery Method Nasal Cannula Weight: 253 lb 15.56 oz Body Mass Index (BMI) 46.9 Finger Stick Blood Glucose 155 Intake and Output for Last 24 Hours 12/01/18 12/02/18 12/03/18 23:59 23:59 23:59 Intake Total 878.27 / 878.27 626 / 626 Output Total 2800 / 2800 200 / 200 Balance -1921.73 / -1921.73 426 / 426 Laboratory Tests Past 24 Hrs 12/03/18 12/03/18 06:33 06:33 WBC 9.5 RBC 2.99 L Hgb 7.9 L Hct 25.8 L MCV 86.3 MCH 26.4 L MCHC 30.6 L RDW Std Deviation 51.5 H RDW Coeff of Becca 16.4 H Plt Count 288 MPV 9.9 Immature Gran % (Auto) 1.400 H Neut % (Auto) 79.5 H Lymph % (Auto) 9.8 L [place] % (Auto) 6.5 Eos % (Auto) 2.5 Baso % (Auto) 0.3 Absolute Neuts (auto) 7.5 Absolute Lymphs (auto) 0.93 Nucleated RBC % 0 Sodium 135 L Potassium 3.0 L Chloride 99 Carbon Dioxide 32.0 Anion Gap 4 L BUN 53 H Creatinine 2.32 H Estim Creat Clear Calc 17.59 Est GFR (MDRD) Af Amer 27 L Est GFR (MDRD) Non-Af 22 L BUN/Creatinine Ratio 22.8 H Glucose 88 Calcium 8.8 POC Glucose 12/03/18 12/03/18 12/03/18 13:07 06:34 03:57 POC Glucose 114 H 93 60 L 12/02/18 12/02/18 21:51 16:19 POC Glucose 70 114 H Medical Necessity - Tobacco Use Smoking Status: Former smoker Assessment/Plan All Active Problems (Last Reviewed 12/03/18 @ 10:40 by Eusebia Ramirez PA-C) Congestive heart failure (Acute) Acute renal failure (Acute) Abdominal pain (Acute) Acute renal failure superimposed on stage 3 chronic kidney disease (Acute) Acute respiratory failure with hypoxia (Ruled-out) 1. Acute on chronic diastolic CHF-BNP 382. Chest x-ray consistent with CHF. Echocardiogram demonstrates EF 65%, moderately severe mitral valve insufficiency, moderate tricuspid valve insufficiency, RVSP estimated to be 67 mmHg. Cardiology following. Continue Bumex drip. Strict I&O. Daily weight. 2. Chronic hypoxic respiratory failure secondary to chronic COPD and pulmonary hypertension-continue supplement oxygen to maintain O2 at or above 90%. Echo shows RVSP 67 mmHg. No acute COPD exacerbation. 3. KURT on CKD stage III-nephrology consulted. Patient underwent temporary dialysis catheter placement today. Dialysis regimen per nephrology. 4. Hypokalemia-replace per protocol. Trend BMP. 5. Hypertension-stable, continue home amlodipine, carvedilol, hydralazine, isosorbide regimen. 6. Type 2 diabetes mellitus-hold home metformin regimen. Accu-Cheks before meals at bedtime with sliding scale insulin. 7. Chronic normocytic anemia-slightly below baseline, trend CBC. 8. Anxiety-continue home amitriptyline regimen. 9. GERD-continue PPI. 10. Hyperlipidemia-continue statin. 11. Morbid obesity-encouraged lifestyle modifications. DVT prophylaxis- lovenox This patient was seen by TREVOR Gomez under the supervision of Dr. Chung. <Quinten Chung F - Last Filed: 12/03/18 19:32> - Physical Exam Vital Signs Temp Pulse Resp BP Pulse Ox 98.4 F 82 18 152/48 H 94 12/03/18 17:15 12/03/18 17:15 12/03/18 17:15 12/03/18 17:15 12/03/18 17:15 Oxygen Flow Rate (L/min) 2 Oxygen Delivery Method Nasal Cannula Weight: 253 lb 15.56 oz Body Mass Index (BMI) 46.9 Finger Stick Blood Glucose 155 Intake and Output for Last 24 Hours 12/01/18 12/02/18 12/03/18 23:59 23:59 23:59 Intake Total 878.27 / 878.27 966 / 966 Output Total 2800 / 2800 200 / 200 Balance -1921.73 / -1921.73 766 / 766 Laboratory Tests Past 24 Hrs 12/03/18 12/03/18 06:33 06:33 WBC 9.5 RBC 2.99 L Hgb 7.9 L Hct 25.8 L MCV 86.3 MCH 26.4 L MCHC 30.6 L RDW Std Deviation 51.5 H RDW Coeff of Becca 16.4 H Plt Count 288 MPV 9.9 Immature Gran % (Auto) 1.400 H Neut % (Auto) 79.5 H Lymph % (Auto) 9.8 L [place] % (Auto) 6.5 Eos % (Auto) 2.5 Baso % (Auto) 0.3 Absolute Neuts (auto) 7.5 Absolute Lymphs (auto) 0.93 Nucleated RBC % 0 Sodium 135 L Potassium 3.0 L Chloride 99 Carbon Dioxide 32.0 Anion Gap 4 L BUN 53 H Creatinine 2.32 H Estim Creat Clear Calc 17.59 Est GFR (MDRD) Af Amer 27 L Est GFR (MDRD) Non-Af 22 L BUN/Creatinine Ratio 22.8 H Glucose 88 Calcium 8.8 POC Glucose 12/03/18 12/03/18 12/03/18 17:17 13:07 06:34 POC Glucose 125 H 114 H 93 12/03/18 12/02/18 03:57 21:51 POC Glucose 60 L 70 Code Visit Addendum: Dr. Chung I personally examined the patient and reviewed the chart. I agree with the above. 72-year-old female presenting for the first third time in as many weeks, with acute on chronic diastolic heart failure with chronic hypoxic [place] failure secondary to COPD and heart failure and pulmonary hypertension with KURT on CKD. She was started on Bumex drip and is diuresed fairly well however nephrology was consulted to help assist with volume status and she the patient agreed to a temporary dialysis catheter for potentially temporary dialysis. We will undergo possibly dialysis treat today and then will hopefully be able to minimize the diuretic usage. I also did broach the topic of palliative care with the family given how significant of a burden this disease process is on her. Inpatient E&M: 58753 Subs Hosp L2
--- NOTE | 2018-12-03 14:18 | CASEMGMT ---
Per Dr. Waite, pt to be started on dialysis at this time. This RN CM to room to speak with pt/daughter at this time regarding preference for dialysis clinic at this time. Verbal list of local dialysis clinics provided at this time. Per pt/daughter, they would like [facility] at this time. Per daughter, she has been there in the past and was happy with it. Referral faxed to [facility] and placed in [facility] portal at this time. Hep B panel is pending at this time and this RN CM will send when obtained as well as notes from 1st dialysis. [facility] RN CM
[2018-12-03] MEDS: Ferrous Sulfate 325 MG Tablet PO ×2 (15:03→17:26)
--- NOTE | 2018-12-03 17:13 | PCM.PN.CARD ---
Subjectve: The patient is awake and alert. She is now status post a temporary dialysis catheter placement. Objective: Vital Signs Temp Pulse Resp BP Pulse Ox 97.8 F 80 16 137/60 H 99 12/03/18 13:00 12/03/18 16:22 12/03/18 13:22 12/03/18 13:00 12/03/18 13:00 Oxygen Flow Rate (L/min) 2 Oxygen Delivery Method Nasal Cannula Weight: 253 lb 15.56 oz Body Mass Index (BMI) 46.9 Finger Stick Blood Glucose 155 Intake and Output for Last 24 Hours 12/01/18 12/02/18 12/03/18 23:59 23:59 23:59 Intake Total 878.27 / 878.27 726 / 726 Output Total 2800 / 2800 200 / 200 Balance -1921.73 / -1921.73 526 / 526 General: Awake, Alert, Oriented x 3, Cooperative, No Acute Distress, Obese HEENT: Atraumatic, Normocephalic, PERRL, EOMI, Sclera Non Icteric Oral: Moist Mucosa Neck: Supple, Good ROM, No JVD Lungs: Inspiratory Wheezes - Fabricio, Expiratory Wheezes-Fabricio Cardiovascular: Regular Rhythm, Normal S1, Normal S2 Abdomen: Bowel Sounds Present, Soft, Non Tender Extremities: Moderate RLE Edema, Moderate LLE Edema Psych/Mental Status: Appropriate 12/03/18 06:33: WBC 9.5, RBC 2.99 L, Hgb 7.9 L, Hct 25.8 L, MCV 86.3, MCH 26.4 L, MCHC 30.6 L, Plt Count 288, MPV 9.9, Immature Gran % (Auto) 1.400 H, Neut % (Auto) 79.5 H, Lymph % (Auto) 9.8 L, Hartley % (Auto) 6.5, Eos % (Auto) 2.5, Baso % (Auto) 0.3, Absolute Neuts (auto) 7.5, Nucleated RBC % 0 12/03/18 06:33: Sodium 135 L, Potassium 3.0 L, Chloride 99, Carbon Dioxide 32.0, Anion Gap 4 L, BUN 53 H, Creatinine 2.32 H, Est GFR (MDRD) Af Amer 27 L, Est GFR (MDRD) Non-Af 22 L, BUN/Creatinine Ratio 22.8 H, Glucose 88, Calcium 8.8 Rhythm: Sinus rhythm Medical Necessity - Tobacco Use Smoking Status: Former smoker Assessment/Plan 1. CHF: Acute on chronic diastolic mediated The patient presents with findings compatible with recurrent acute on chronic diastolic mediated CHF. The patient lives with her family. They have been monitoring her diet. They provide her her medications. Despite the above attention she has had a decline in her overall status. At the present time there is concern about recurrent acute on chronic diastolic mediated CHF. She is being monitored. She is being treated. This includes IV diuretics with IV Bumex continuous infusion. She will need follow-up laboratory studies. Her case was discussed earlier this morning with internal medicine and nephrology. At that point time recommended considering dialysis therapy. Nephrology discussed this with the patient and she agreed and subsequently underwent temporary dialysis catheter placement in order to initiate dialysis therapy. Hopefully this will help with her volume management. 2. CAD status post CABG At the moment she has no complaints of ongoing chest discomfort. Her initial troponin I level was negative. She has undergone noninvasive and invasive evaluation as described above. At the moment she will continue medical management. She is not an ideal candidate for repeat evaluation in the cardiac catheterization laboratory with respect to IV contrast related studies such as a left heart catheterization based on concerns of IV contrast related nephropathy and worsening renal function. 3. Valvular heart disease She does have underlying valvular heart disease with MR and TR. Previously noted she was reassessed with an echocardiogram. Her mitral valve regurgitation appears to be somewhat more prominent. This could be a result of changes in her hemodynamics, anemia, etc. As previously noted she would have to be evaluated at a tertiary care center as to whether or not she would be a candidate for any form of mitral valve intervention. Again this could be somewhat challenging as this would be superimposed upon her multiple comorbidities. At the present time she will continue her current medical management. She will initiate dialysis for volume assistance. She will consider her options going forward depending upon her clinical course. 4. Obstructive sleep apnea/COPD The patient has a history of obstructive sleep apnea. She has reported a history of COPD. Based upon her previous PFTs she does have restrictive airway disease. She will need to continue her evaluation and care. She may need repeat input from pulmonology. 5. Pulmonary hypertension She does have history of pulmonary hypertension as described above. This may be multifactorial. She may have a component related to underlying decreased diastolic compliance and/or potentially valvular heart disease. She may have a component secondary to her history of obstructive sleep apnea and COPD/restrictive disease. At the present time she will continue medical management and support. She is receiving O2 therapy at this time. 6. Hypertension She will continue medical management. Her medicines be adjusted based upon her renal insufficiency. 7. Dyslipidemia She will continue medical management as deemed appropriate. 8. Diabetes mellitus She will continue evaluation care per internal medicine. 9. Anemia Her hemoglobin has decreased somewhat. She will need continued evaluation for her underlying anemia. She may need hematology input. Ideally, if her hemoglobin could increase, this may improve her oxygen carrying capacity and help benefit her overall course. 10. Acute on chronic renal insufficiency Again, she is going to initiate dialysis to assist with her volume support. Comment: The patient's case was discussed and reviewed with the patient, her family members present, Dr. Chung, and Dr. Waite. This note was generated using a voice recognition system and there may be incorrect words, spelling or punctuation that were not noted when reviewing the office note prior to saving.
[2018-12-03] MEDS: Glycerin/Hypromellose/PEG400 15 ml Bottle 1 DRP EACH EYE (17:26)
[2018-12-03] MEDS: Ascorbic Acid 500 MG Tablet PO (17:26)
[2018-12-03 17:51] LABS: Bedside Glucose 125 mg/dL (70-110)
[2018-12-03] MEDS: Insulin Lispro 100 UNIT/ML INSULN.PEN SC (22:24)
[2018-12-03] MEDS: Gabapentin 300 MG Capsule PO (22:27)
[2018-12-03] MEDS: Doxazosin 4 MG Tablet 8 MG PO (22:27)
[2018-12-03] MEDS: Amitriptyline 100 MG Tablet PO (22:27)
[2018-12-03] MEDS: hydrALAZINE 50 MG Tablet 100 MG PO (22:27)
[2018-12-03 23:20] LABS: Bedside Glucose 150 mg/dL (70-110)
[2018-12-04] VITALS (14 sets, daily range): BP systolic 148–185; BP diastolic 51–116; PULSE 83–103; RESP 16–20; TEMP 36.9–37.8; O2SAT 93–100
[2018-12-04 05:54] LABS: Hematocrit 25.5 % (37-47); Hemoglobin 7.8 g/dL (12.0-15.0); Mean Corp Hgb Conc 30.6 g/dL (32-36); Mean Corpuscular Hgb 26.4 pg (27.0-32.0); Mean Corpuscular Volume 86.1 fL (81-99); Mean Platelet Vol. 9.6 fl (6.2-12.0); Platelet Count 260 K/mm3 (150-450); RBC Distribution Width CV 16.4 % (11.6-14.6); RBC Distribution Width SD 51.3 fl (35.1-43.9); Red Blood Count 2.96 M/mm3 (4.2-5.4); White Blood Count 11.7 K/mm3 (4.4-11.0)
[2018-12-04 06:24] LABS: Anion Gap 9 (5-15); BUN 39 mg/dL (7-18); BUN/Creat Ratio 19.9 RATIO (10-20); Calcium,Total 8.4 mg/dL (8.5-10.1); Chloride 101 mmol/L (98-107); Creatinine, Serum 1.96 mg/dL (0.55-1.02); EST Glomerular Filtration Rate 27 mL/min (>60); Est Glom Filt Rate - Afr Amer 32 mL/min (>60); Estimated Creatinine Clearance 20.82 ml/min; Glucose 102 mg/dL (74-106); Potassium 3.3 mmol/L (3.5-5.1); Sodium Level 141 mmol/L (136-145)
[2018-12-04 06:46] LABS: Bedside Glucose 108 mg/dL (70-110)
[2018-12-04] MEDS: Budesonide Respules 0.5 MG/2 ML AMPUL.NEB. INHALATION ×2 (07:24→20:01)
[2018-12-04] MEDS: Ipratropium/Albuterol Sulfate 3 ML AMPUL.NEB INHALATION ×3 (07:24→20:01)
--- NOTE | 2018-12-04 08:08 | PCM.PN.SRG ---
Patient Problems: Active and Suspected Problems (Last Reviewed 12/03/18 @ 10:40 by Eusebia Ramirez PA-C) Congestive heart failure (Acute) Acute renal failure (Acute) Subjective: Patient evaluated resting in bed. Her dressing was completely saturated with blood. She denies pain at the catheter site. She did complete dialysis yesterday without any concerns. - Physical Exam General: Alert, Oriented x3, Cooperative Skin: - - Right chest catheter- dressing completely saturated. All dressing was removed. No active oozing noted. Clotting around the catheter noted. No debridement took place. Dry drain sponge gauze was applied followed by 2 small gauze dressing and an op-site. Vital Signs Temp Pulse Resp BP Pulse Ox 99.8 F H 90 18 163/116 H 93 12/04/18 06:05 12/04/18 07:53 12/04/18 06:05 12/04/18 06:05 12/04/18 06:05 Oxygen Flow Rate (L/min) 3 Oxygen Delivery Method CPAP Weight: 249 lb 9.012 oz Body Mass Index (BMI) 46.9 Finger Stick Blood Glucose 155 Intake and Output for Last 24 Hours 12/02/18 12/03/18 12/04/18 23:59 23:59 23:59 Intake Total 878.27 / 878.27 1016 / 1136 288.2 / 288.2 Output Total 2800 / 2800 200 / 1300 1125 / 1125 Balance -1921.73 / -1921.73 816 / -164 -836.8 / -836.8 Laboratory Tests Past 24 Hrs 12/03/18 12/03/18 12/04/18 20:25 20:25 05:20 WBC 11.7 H RBC 2.96 L Hgb 7.8 L Hct 25.5 L MCV 86.1 MCH 26.4 L MCHC 30.6 L RDW Std Deviation 51.3 H RDW Coeff of Becca 16.4 H Plt Count 260 MPV 9.6 Sodium Potassium Chloride Carbon Dioxide Anion Gap BUN Creatinine Estim Creat Clear Calc Est GFR (MDRD) Af Amer Est GFR (MDRD) Non-Af BUN/Creatinine Ratio Glucose Calcium Hep Bs Antigen Pending Hep Bs Antibody Pending Hep B Core Total Ab Pending 12/04/18 05:20 WBC RBC Hgb Hct MCV MCH MCHC RDW Std Deviation RDW Coeff of Becca Plt Count MPV Sodium 141 Potassium 3.3 L Chloride 101 Carbon Dioxide 31.0 Anion Gap 9 BUN 39 H Creatinine 1.96 H Estim Creat Clear Calc 20.82 Est GFR (MDRD) Af Amer 32 L Est GFR (MDRD) Non-Af 27 L BUN/Creatinine Ratio 19.9 Glucose 102 Calcium 8.4 L Hep Bs Antigen Hep Bs Antibody Hep B Core Total Ab POC Glucose 12/04/18 12/03/18 12/03/18 06:33 22:18 17:17 POC Glucose 108 150 H 125 H 12/03/18 13:07 POC Glucose 114 H Medical Necessity - Tobacco Use Smoking Status: Former smoker Assessment/Plan All Active Problems (Last Reviewed 12/03/18 @ 10:40 by Eusebia Ramirez PA-C) Congestive heart failure (Acute) Acute renal failure (Acute) Abdominal pain (Acute) Acute renal failure superimposed on stage 3 chronic kidney disease (Acute) Acute respiratory failure with hypoxia (Ruled-out) I am following this patient in conjunction with Dr. Tavarez. S/p right chest tunneled dialysis catheter placement Patient will need vein mapping and follow-up with Dr. Tavarez as an outpatient for future fistula placement Dialysis nurse to change dressing during dialysis today We will sign off. Please reconsult if needed Thank you for allowing us to participate in this patient's care. Code Visit Inpatient E&M: 17261 Subs Hosp L1 - No charge
--- NOTE | 2018-12-04 09:43 | CASEMGMT ---
LW/Medical POA both in summary tab of Doris archuleta listed as Medical POA. RENAY Ramirez
--- NOTE | 2018-12-04 09:53 | CASEMGMT ---
Addendum entered by Marya Zayas 12/04/18 13:02: [facility]. Dyan PADILLA CM Original Note: [facility]. Hep B panel is still pending. Dyan PADILLA CM
[2018-12-04 10:17] LABS: Hepatitis B Surface Antibody Non-Reactive; Hepatitis B Surface Antigen Non-Reactive (Nonreactive)
--- NOTE | 2018-12-04 10:30 | PCM.PN.REN ---
Patient Problems: Active and Suspected Problems (Last Reviewed 12/03/18 @ 10:40 by Eusebia Ramirez PA-C) Congestive heart failure (Acute) Acute renal failure (Acute) Subjective: no new events - Physical Exam General: Alert, Oriented x3, Cooperative HEENT: Atraumatic, PERRLA, EOMI, Normocephalic Neck: Supple, No JVD, Negative Carotid Bruits Lungs: Clear to auscultation, Normal air movement Cardiovascular: Regular rate, No murmurs Abdomen: Bowel Sounds Present, Soft, Non Tender Extremities: No edema, Capillary Refill Less than 3 Seconds Skin: No rashes, No breakdown Musculoskeletal: No Tenderness to Palpation of Joints or Extremities Neurological: Cranial nerves II-XII grossly intact Psych/Mental Status: Normal Affect, Appropriate Vital Signs Temp Pulse Resp BP Pulse Ox 99.8 F H 90 16 163/116 H 94 12/04/18 06:05 12/04/18 07:53 12/04/18 07:24 12/04/18 06:05 12/04/18 07:24 Oxygen Flow Rate (L/min) 2 Oxygen Delivery Method Nasal Cannula Weight: 113.2 kg Body Mass Index (BMI) 46.9 Finger Stick Blood Glucose 155 Intake and Output for Last 24 Hours 12/02/18 12/03/18 12/04/18 23:59 23:59 23:59 Intake Total 878.27 / 878.27 1016 / 1136 288.47 / 288.47 Output Total 2800 / 2800 200 / 1300 1125 / 1125 Balance -1921.73 / -1921.73 816 / -164 -836.53 / -836.53 Laboratory Tests Past 24 Hrs 12/03/18 12/03/18 12/04/18 20:25 20:25 05:20 WBC 11.7 H RBC 2.96 L Hgb 7.8 L Hct 25.5 L MCV 86.1 MCH 26.4 L MCHC 30.6 L RDW Std Deviation 51.3 H RDW Coeff of Becca 16.4 H Plt Count 260 MPV 9.6 Sodium Potassium Chloride Carbon Dioxide Anion Gap BUN Creatinine Estim Creat Clear Calc Est GFR (MDRD) Af Amer Est GFR (MDRD) Non-Af BUN/Creatinine Ratio Glucose Calcium Hep Bs Antigen Non-Reactive Hep Bs Antibody Non-Reactive Hep B Core Total Ab Pending 12/04/18 05:20 WBC RBC Hgb Hct MCV MCH MCHC RDW Std Deviation RDW Coeff of Becca Plt Count MPV Sodium 141 Potassium 3.3 L Chloride 101 Carbon Dioxide 31.0 Anion Gap 9 BUN 39 H Creatinine 1.96 H Estim Creat Clear Calc 20.82 Est GFR (MDRD) Af Amer 32 L Est GFR (MDRD) Non-Af 27 L BUN/Creatinine Ratio 19.9 Glucose 102 Calcium 8.4 L Hep Bs Antigen Hep Bs Antibody Hep B Core Total Ab POC Glucose 12/04/18 12/03/18 12/03/18 06:33 22:18 17:17 POC Glucose 108 150 H 125 H 12/03/18 13:07 POC Glucose 114 H Medical Necessity - Tobacco Use Smoking Status: Former smoker Assessment/Plan All Active Problems (Last Reviewed 12/03/18 @ 10:40 by Eusebia Ramirez PA-C) Congestive heart failure (Acute) Acute renal failure (Acute) Abdominal pain (Acute) Acute renal failure superimposed on stage 3 chronic kidney disease (Acute) Acute respiratory failure with hypoxia (Ruled-out) Acute renal failure Chronic kidney disease stage III Congestive heart failure Overall volume status is decompensated. She failed multiple outpatient trial of diuretics. This is her third admission in the last 2 weeks with similar complaints. We sent her home on high-dose of Bumex and metolazone and she still came back with similar complaints. Blood pressure is high normal. started HD yesterday HD again today needs placement as KURT some oozing from TDC site plan to do dialysis for 4 weeks and assess response ok to dc bumex drip and change to po bumex and metolazone. maintain oral diuretics for now can dc urine catheter also
[2018-12-04] MEDS: Pantoprazole Sodium 40 MG Tablet PO (10:44)
[2018-12-04] MEDS: Ascorbic Acid 500 MG Tablet PO ×2 (10:45→21:13)
[2018-12-04] MEDS: Isosorbide Mononitrate 60 MG Tablet PO (10:45)
[2018-12-04 11:50] LABS: Bedside Glucose 121 mg/dL (70-110)
--- NOTE | 2018-12-04 12:57 | PCM.PROGNOTE ---
<Stefanie Antonio - Last Filed: 12/04/18 13:06> Patient Problems: Active and Suspected Problems (Last Reviewed 12/03/18 @ 10:40 by Eusebia Ramirez PA-C) Congestive heart failure (Acute) Acute renal failure (Acute) Subjective: Patient seen and examined. Patient denies complaints. Family at bedside reports patient seemed more confused and disoriented this morning. To undergo dialysis again today. - Physical Exam General: Alert, Oriented x3, Cooperative HEENT: Atraumatic, PERRLA, EOMI, Normocephalic Neck: Supple, No JVD, Negative Carotid Bruits Lungs: Diminished, Wheezes Cardiovascular: Regular rate, Regular Rhythm, Normal S1, Normal S2, Murmur Abdomen: Bowel Sounds Present, Soft, Non Tender, Non-Distended, Obese Extremities: No clubbing, No cyanosis, Capillary Refill Less than 3 Seconds, Edema - Bilateral lower extremities Skin: No rashes, No breakdown, - - Right chest dressing with blood however appears stable. Sandbag in place. Musculoskeletal: No Tenderness to Palpation of Joints or Extremities Neurological: Cranial nerves II-XII grossly intact, Neuro grossly intact Psych/Mental Status: Normal Affect, Appropriate Vital Signs Temp Pulse Resp BP Pulse Ox 98.9 F 88 19 H 154/51 H 100 12/04/18 11:04 12/04/18 11:04 12/04/18 11:04 12/04/18 11:04 12/04/18 11:04 Oxygen Flow Rate (L/min) 2 Oxygen Delivery Method Nasal Cannula Weight: 249 lb 9.012 oz Body Mass Index (BMI) 46.9 Finger Stick Blood Glucose 155 Intake and Output for Last 24 Hours 12/02/18 12/03/18 12/04/18 23:59 23:59 23:59 Intake Total 878.27 / 878.27 1016 / 1136 528.47 / 528.47 Output Total 2800 / 2800 200 / 1300 1775 / 1775 Balance -1921.73 / -1921.73 816 / -164 -1246.53 / -1246.53 Laboratory Tests Past 24 Hrs 12/03/18 12/03/18 12/04/18 20:25 20:25 05:20 WBC 11.7 H RBC 2.96 L Hgb 7.8 L Hct 25.5 L MCV 86.1 MCH 26.4 L MCHC 30.6 L RDW Std Deviation 51.3 H RDW Coeff of Becca 16.4 H Plt Count 260 MPV 9.6 Sodium Potassium Chloride Carbon Dioxide Anion Gap BUN Creatinine Estim Creat Clear Calc Est GFR (MDRD) Af Amer Est GFR (MDRD) Non-Af BUN/Creatinine Ratio Glucose Calcium Hep Bs Antigen Non-Reactive Hep Bs Antibody Non-Reactive Hep B Core Total Ab Pending 12/04/18 05:20 WBC RBC Hgb Hct MCV MCH MCHC RDW Std Deviation RDW Coeff of Becca Plt Count MPV Sodium 141 Potassium 3.3 L Chloride 101 Carbon Dioxide 31.0 Anion Gap 9 BUN 39 H Creatinine 1.96 H Estim Creat Clear Calc 20.82 Est GFR (MDRD) Af Amer 32 L Est GFR (MDRD) Non-Af 27 L BUN/Creatinine Ratio 19.9 Glucose 102 Calcium 8.4 L Hep Bs Antigen Hep Bs Antibody Hep B Core Total Ab POC Glucose 12/04/18 12/04/18 12/03/18 11:34 06:33 22:18 POC Glucose 121 H 108 150 H 12/03/18 12/03/18 17:17 13:07 POC Glucose 125 H 114 H Medical Necessity - Tobacco Use Smoking Status: Former smoker Assessment/Plan All Active Problems (Last Reviewed 12/03/18 @ 10:40 by Eusebia Ramirez PA-C) Congestive heart failure (Acute) Acute renal failure (Acute) Abdominal pain (Acute) Acute renal failure superimposed on stage 3 chronic kidney disease (Acute) Acute respiratory failure with hypoxia (Ruled-out) 1. Acute on chronic diastolic CHF-BNP 382. Chest x-ray consistent with CHF. Echocardiogram demonstrates EF 65%, moderately severe mitral valve insufficiency, moderate tricuspid valve insufficiency, RVSP estimated to be 67 mmHg. Cardiology following. Bumex drip discontinued, resume home oral Bumex and metolazone regimen. Strict I&O. Daily weight. 2. Chronic hypoxic respiratory failure secondary to chronic COPD and pulmonary hypertension-continue supplement oxygen to maintain O2 at or above 90%. Echo shows RVSP 67 mmHg. No acute COPD exacerbation. 3. KURT on CKD stage III-nephrology consulted. Patient underwent temporary dialysis catheter placement 12/03/2018 followed by dialysis treatment. Dialysis regimen per nephrology. 4. Hypokalemia-replace per protocol. Trend BMP. 5. Hypertension-stable, continue home amlodipine, carvedilol, hydralazine, isosorbide regimen. 6. Type 2 diabetes mellitus-hold home metformin regimen. Accu-Cheks before meals at bedtime with sliding scale insulin. 7. Chronic normocytic anemia-slightly below baseline, trend CBC. 8. Anxiety-continue home amitriptyline regimen. 9. GERD-continue PPI. 10. Hyperlipidemia-continue statin. 11. Morbid obesity-encouraged lifestyle modifications. DVT prophylaxis- lovenox This patient was seen by TREVOR Gomez under the supervision of Dr. Chung. <Quinten Chung F - Last Filed: 12/04/18 18:12> - Physical Exam Vital Signs Temp Pulse Resp BP Pulse Ox 98.9 F 88 19 H 154/51 H 100 12/04/18 11:04 12/04/18 11:04 12/04/18 11:04 12/04/18 11:04 12/04/18 11:04 Oxygen Flow Rate (L/min) 2 Oxygen Delivery Method Nasal Cannula Weight: 249 lb 9.012 oz Body Mass Index (BMI) 46.9 Finger Stick Blood Glucose 155 Intake and Output for Last 24 Hours 12/02/18 12/03/18 12/04/18 23:59 23:59 23:59 Intake Total 878.27 / 878.27 1016 / 1136 528.47 / 528.47 Output Total 2800 / 2800 200 / 1300 1775 / 1775 Balance -1921.73 / -1921.73 816 / -164 -1246.53 / -1246.53 Laboratory Tests Past 24 Hrs 12/03/18 12/03/18 12/04/18 20:25 20:25 05:20 WBC 11.7 H RBC 2.96 L Hgb 7.8 L Hct 25.5 L MCV 86.1 MCH 26.4 L MCHC 30.6 L RDW Std Deviation 51.3 H RDW Coeff of Becca 16.4 H Plt Count 260 MPV 9.6 Sodium Potassium Chloride Carbon Dioxide Anion Gap BUN Creatinine Estim Creat Clear Calc Est GFR (MDRD) Af Amer Est GFR (MDRD) Non-Af BUN/Creatinine Ratio Glucose Calcium Hep Bs Antigen Non-Reactive Hep Bs Antibody Non-Reactive Hep B Core Total Ab Pending 12/04/18 05:20 WBC RBC Hgb Hct MCV MCH MCHC RDW Std Deviation RDW Coeff of Becca Plt Count MPV Sodium 141 Potassium 3.3 L Chloride 101 Carbon Dioxide 31.0 Anion Gap 9 BUN 39 H Creatinine 1.96 H Estim Creat Clear Calc 20.82 Est GFR (MDRD) Af Amer 32 L Est GFR (MDRD) Non-Af 27 L BUN/Creatinine Ratio 19.9 Glucose 102 Calcium 8.4 L Hep Bs Antigen Hep Bs Antibody Hep B Core Total Ab POC Glucose 12/04/18 12/04/18 12/03/18 11:34 06:33 22:18 POC Glucose 121 H 108 150 H 12/03/18 12/03/18 17:17 13:07 POC Glucose 125 H 114 H Code Visit Addendum: Dr. Chung I personally examined the patient and reviewed the chart. I agree with the above. 72-year-old female presenting for the first third time in as many weeks, with acute on chronic diastolic heart failure with chronic hypoxic respiratory failure secondary to COPD and heart failure and pulmonary hypertension with KURT on CKD. She was started on Bumex drip and is diuresed fairly well however nephrology was consulted to help assist with volume status and she the patient agreed to a temporary dialysis catheter for potentially temporary dialysis. 2 L of fluid removed last night on dialysis and she is can undergo another shorter course of dialysis today. Her Bumex drip was stopped and she was reverted back to her oral Bumex. She has had some wound seepage around the catheter site, so her Lovenox and her aspirin were held today. Inpatient E&M: 71968 Subs Hosp L2
--- NOTE | 2018-12-04 13:59 | CASEMGMT ---
Call from Salazar at [facility] and he states that pt can have a MWF 0650 or 1630 chair time. This RN CM to room and after family discussion with pt and daughters, they decide on the 0650 chair time. This RN CM did broach [facility] for pt/family at this time and they are agreeable to PT only at this time and they state they would like [facility] as they were happy with them in the past. Salazar from [facility] notified of pt decision and states that pt will have to come this sunday only at 1630 due to scheduling. Pt/family aware at this time and agree to this at this time. Call to Prema at [facility] and she states they can take pt for PT at this time. Pt/daughters state no further questions/concerns/needs at this time. Mana GONZALEZ aware and voices understanding at this time. Dyan PADILLA CM
--- NOTE | 2018-12-04 13:59 | NURSING ---
Read and reviewed SN documentation
--- NOTE | 2018-12-04 14:53 | PCM.PN.PUL ---
Patient Problems: Active and Suspected Problems (Last Reviewed 12/03/18 @ 10:40 by Eusebia Ramirez PA-C) Congestive heart failure (Acute) Acute renal failure (Acute) Subjective: LATE ENTRY Patient was seen earlier in the day. Patient does not had a tunneled hemodialysis line placed and appeared to be tolerating this well. Patient did have some confusion. Spoke with the daughter at the bedside. Patient reported some improvement in respiratory symptoms. No pain was reported. - Physical Exam General: Alert, Cooperative, No apparent distress, Confused, Disoriented, - - No conversational dyspnea. Morbidly obese. HEENT: Atraumatic, PERRLA, EOMI, Normocephalic, - - No scleral icterus or injection noted. Glasses in place. Oral: Moist Mucosa, No Gingival or Mucosal Lesions/ Ulcerations Neck: Supple, No JVD, No Nodes, Trachea Midline Lungs: No rhonchi, No wheeze, No rales, Diminished Cardiovascular: Regular rate, Regular Rhythm, Normal S1, Normal S2, Murmur, No rub noted, No Gallop Abdomen: Bowel Sounds Present, Soft, Non Tender, Non-Distended, Obese Extremities: No clubbing, No cyanosis, Edema Skin: No rashes, No breakdown Musculoskeletal: - - Tenderness to palpation of bilateral lower extremities Lymphatic: No Cervical, Supraclavicular, or Inguinal Adenopathy Neurological: Cranial nerves II-XII grossly intact, Neuro grossly intact, Motor Exam 5/5 strength throughout Psych/Mental Status: Flat Affect, Restless Vital Signs Temp Pulse Resp BP Pulse Ox 36.9 C 87 18 148/73 H 96 12/04/18 14:00 12/04/18 14:00 12/04/18 14:00 12/04/18 14:00 12/04/18 14:00 Oxygen Flow Rate (L/min) 2 Oxygen Delivery Method Room Air Weight: 113.2 kg Body Mass Index (BMI) 46.9 Finger Stick Blood Glucose 155 Intake and Output for Last 24 Hours 12/02/18 12/03/18 12/04/18 23:59 23:59 23:59 Intake Total 878.27 / 878.27 1016 / 1136 528.47 / 528.47 Output Total 2800 / 2800 200 / 1300 1775 / 1775 Balance -1921.73 / -1921.73 816 / -164 -1246.53 / -1246.53 Laboratory Tests Past 24 Hrs 12/03/18 12/03/18 12/04/18 20:25 20:25 05:20 WBC 11.7 H RBC 2.96 L Hgb 7.8 L Hct 25.5 L MCV 86.1 MCH 26.4 L MCHC 30.6 L RDW Std Deviation 51.3 H RDW Coeff of Becca 16.4 H Plt Count 260 MPV 9.6 Sodium Potassium Chloride Carbon Dioxide Anion Gap BUN Creatinine Estim Creat Clear Calc Est GFR (MDRD) Af Amer Est GFR (MDRD) Non-Af BUN/Creatinine Ratio Glucose Calcium Hep Bs Antigen Non-Reactive Hep Bs Antibody Non-Reactive Hep B Core Total Ab Pending 12/04/18 05:20 WBC RBC Hgb Hct MCV MCH MCHC RDW Std Deviation RDW Coeff of Becca Plt Count MPV Sodium 141 Potassium 3.3 L Chloride 101 Carbon Dioxide 31.0 Anion Gap 9 BUN 39 H Creatinine 1.96 H Estim Creat Clear Calc 20.82 Est GFR (MDRD) Af Amer 32 L Est GFR (MDRD) Non-Af 27 L BUN/Creatinine Ratio 19.9 Glucose 102 Calcium 8.4 L Hep Bs Antigen Hep Bs Antibody Hep B Core Total Ab POC Glucose 12/04/18 12/04/18 12/03/18 11:34 06:33 22:18 POC Glucose 121 H 108 150 H 12/03/18 17:17 POC Glucose 125 H Medical Necessity - Tobacco Use Smoking Status: Former smoker Assessment/Plan All Active Problems (Last Reviewed 12/03/18 @ 10:40 by Eusebia Ramirez PA-C) Congestive heart failure (Acute) Acute renal failure (Acute) Abdominal pain (Acute) Acute renal failure superimposed on stage 3 chronic kidney disease (Acute) Acute respiratory failure with hypoxia (Ruled-out) RECOMMENDATIONS: 1. Continue diuresis as tolerated. Aggressive potassium repletion ordered 2. Continue to monitor continuous pulse ox and telemetry 3. Use baseline BiPAP with sleep and for rescue 4. No indication for IV steroids or antibiotics from my perspective 5. Wean supplemental oxygen as tolerated 6. Hemodialysis per nephrology IMPRESSIONS: 1. Acute hypoxic respiratory insufficiency secondary to acute on chronic diastolic CHF Patient is appropriately on diuretic therapy. Agree with fluid restriction. Unclear if patient is having an element of exertional hypoxemia leading to exacerbation of pulmonary artery pressures and cor pulmonale. Patient does not appear to have any exacerbation of underlying lung disorder at this time. Agree with diuretic therapy. Patient did have a very hemodialysis line placed. Defer to nephrology for volume removal. Doubt right heart catheterization would change her overall perspective at this time as patient clinically appears to be overloaded and would likely have elevated pulmonary capillary wedge pressure. 2. Type II pulmonary hypertension/obstructive sleep apnea Patient with moderate to severe elevation on right heart cath in the past. Acute hypoxemia would exacerbate patient's underlying cor pulmonale could lead to flash pulmonary edema. Patient saturations are doing well at this time. We will continue to monitor. Patient appears to be responding well to diuretic therapy. Patient should have a walking oximetry prior to discharge. It will be impaired if the patient's saturations stay above 90% at all times, even with ambulation. Continue BiPAP with sleep. This is complicated by relatively severe MVR and diffuse aortic valve calcification 3. Hypertension/diabetes mellitus/iron deficiency anemia/advanced age/morbid obesity Complicates care, management, recovery and prognosis. Patient has received iron infusions recently for iron deficiency anemia. Continue to monitor blood sugars closely. Encourage weight loss. 4. Acute delirium Patient has had difficulty with delirium in the past. Long discussion with the daughter at the bedside about conservative measures for dealing with delirium. Patient did have glasses in place. Blinds were raised. Code Visit Inpatient E&M: 43319 Subs Hosp L2
[2018-12-04 16:46] LABS: Bedside Glucose 154 mg/dL (70-110)
--- NOTE | 2018-12-04 17:23 | PN.CARD_ITS ---
Subjectve: The patient stated dialysis yesterday. She appeared to tolerated without obvious complication. Her family stated she appeared to be somewhat more awake and alert yesterday evening. The patient believes she is breathing somewhat better. She believes the tenderness in her lower extremities is somewhat less prominent although it is still there. Objective: Vital Signs Temp Pulse Resp BP Pulse Ox 98.4 F 88 18 148/73 H 96 12/04/18 14:00 12/04/18 15:42 12/04/18 14:00 12/04/18 14:00 12/04/18 14:00 Oxygen Flow Rate (L/min) 2 Oxygen Delivery Method Room Air Weight: 249 lb 9.012 oz Body Mass Index (BMI) 46.9 Finger Stick Blood Glucose 155 Intake and Output for Last 24 Hours 12/02/18 12/03/18 12/04/18 23:59 23:59 23:59 Intake Total 878.27 / 878.27 1016 / 1136 528.47 / 528.47 Output Total 2800 / 2800 200 / 1300 1775 / 1775 Balance -1921.73 / -1921.73 816 / -164 -1246.53 / -1246.53 General: Awake, Cooperative, No Acute Distress HEENT: Atraumatic, Normocephalic, PERRL, EOMI, Sclera Non Icteric Oral: Moist Mucosa Neck: Supple, Good ROM, No JVD Lungs: Diminished Fabricio Bases Cardiovascular: Regular Rhythm, Normal S1, Normal S2 Murmur Murmur: Grade 3/6, Harsh, Mid Systolic, LLSB, [place], LVOT, Sternal Notch Abdomen: Bowel Sounds Present, Soft, Non Tender Extremities: Moderate RLE Edema, Moderate LLE Edema 12/04/18 05:20: WBC 11.7 H, RBC 2.96 L, Hgb 7.8 L, Hct 25.5 L, MCV 86.1, MCH 26.4 L, MCHC 30.6 L, Plt Count 260, MPV 9.6 12/04/18 05:20: Sodium 141, Potassium 3.3 L, Chloride 101, Carbon Dioxide 31.0, Anion Gap 9, BUN 39 H, Creatinine 1.96 H, Est GFR (MDRD) Af Amer 32 L, Est GFR (MDRD) Non-Af 27 L, BUN/Creatinine Ratio 19.9, Glucose 102, Calcium 8.4 L Rhythm: Sinus rhythm Medical Necessity - Tobacco Use Smoking Status: Former smoker Assessment/Plan 1. CHF: Acute on chronic diastolic mediated The patient presents with findings compatible with recurrent acute on chronic diastolic mediated CHF. The patient lives with her family. They have been monitoring her diet. They provide her her medications. Is been altered from IV diuretics to oral diuretics after starting dialysis therapy. She will continue with medical therapy and dialysis therapy in an attempt to maintain her volume status. 2. CAD status post CABG At the moment she has no complaints of ongoing chest discomfort. Her initial troponin I level was negative. She has undergone noninvasive and invasive evaluation as described above. At the moment she will continue medical management. She is not an ideal candidate for repeat evaluation in the cardiac catheteriza tion laboratory with respect to IV contrast related studies such as a left heart catheterization based on concerns of IV contrast related nephropathy and worsening renal function. 3. Valvular heart disease She does have underlying valvular heart disease with MR and TR. Previously noted she was reassessed with an echocardiogram. Her mitral valve regurgitation appears to be somewhat more prominent. This could be a result of changes in her hemodynamics, anemia, etc. As previously noted she would have to be evaluated at a tertiary care center as to whether or not she would be a candidate for any form of mitral valve intervention. Again this could be somewhat challenging as this would be superimposed upon her multiple comorbidities. At the present time she will continue her current medical management. She will continue dialysis therapy to assist in maintaining her volume status. She will consider her options going forward depending upon her clinical course. 4. Obstructive sleep apnea/COPD The patient has a history of obstructive sleep apnea. She has reported a history of COPD. Based upon her previous PFTs she does have restrictive airway disease. She will need to continue her evaluation and care. Being followed by Dr. Ferreira from pulmonology. 5. Pulmonary hypertension She does have history of pulmonary hypertension as described above. This may be multifactorial. She may have a component related to underlying decreased diastolic compliance and/or potentially valvular heart disease. She may have a component secondary to her history of obstructive sleep apnea and COPD/restrictive disease. At the present time she will continue medical management and support. She is receiving O2 therapy at this time. 6. Hypertension She will continue medical management. Her medicines be adjusted based upon her renal insufficiency. 7. Dyslipidemia She will continue medical management as deemed appropriate. 8. Diabetes mellitus She will continue evaluation care per internal medicine. 9. Anemia Her hemoglobin has decreased somewhat. She will need continued evaluation for her underlying anemia. She may need hematology input. Ideally, if her hemoglobin could increase, this may improve her oxygen carrying capacity and help benefit her overall course. 10. Acute on chronic renal insufficiency Again, she is going to initiate dialysis to assist with her volume support. Comment: The patient's case was discussed and reviewed with the patient, her family members present, Dr. Chung, and Dr. Ferreira. This note was generated using a voice recognition system and there may be incorrect words, spelling or punctuation that were not noted when reviewing the office note prior to saving.
--- NOTE | 2018-12-04 19:33 | DIALYSIS ---
Hemodialysis today UF -2000mL removed. Pt tolerated tx well. Report to RANDY Zavala. Dressing in place some drainage under gauze. Reinforced dressing not removed due to not wanting to remove clotting around line. Floor RN informed. Pt stable . Catherter closed capped and clamped
[2018-12-04] MEDS: Carvedilol 6.25 MG Tablet PO (21:12)
[2018-12-04] MEDS: hydrALAZINE 50 MG Tablet 100 MG PO (21:12)
[2018-12-04] MEDS: Amitriptyline 100 MG Tablet PO (21:12)
[2018-12-04] MEDS: Atorvastatin Calcium 80 MG Tablet PO (21:12)
[2018-12-04] MEDS: Doxazosin 4 MG Tablet 8 MG PO (21:12)
[2018-12-04] MEDS: amLODIPine 10 MG Tablet PO (21:13)
[2018-12-04] MEDS: Gabapentin 300 MG Capsule PO (21:15)
[2018-12-04 23:00] LABS: Bedside Glucose 140 mg/dL (70-110)
[2018-12-05] VITALS (13 sets, daily range): BP systolic 144–162; BP diastolic 54–69; PULSE 79–94; RESP 18–20; TEMP 36.8–37.4; O2SAT 95–100
[2018-12-05 05:17] LABS: Hematocrit 25.9 % (37-47); Hemoglobin 7.9 g/dL (12.0-15.0); Mean Corp Hgb Conc 30.5 g/dL (32-36); Mean Corpuscular Hgb 26.4 pg (27.0-32.0); Mean Corpuscular Volume 86.6 fL (81-99); Mean Platelet Vol. 9.1 fl (6.2-12.0); Platelet Count 250 K/mm3 (150-450); RBC Distribution Width CV 16.5 % (11.6-14.6); RBC Distribution Width SD 51.8 fl (35.1-43.9); Red Blood Count 2.99 M/mm3 (4.2-5.4); White Blood Count 13.1 K/mm3 (4.4-11.0)
[2018-12-05 05:42] LABS: Anion Gap 8 (5-15); BUN 31 mg/dL (7-18); Calcium,Total 8.4 mg/dL (8.5-10.1); Chloride 102 mmol/L (98-107); Creatinine, Serum 1.82 mg/dL (0.55-1.02); EST Glomerular Filtration Rate 29 mL/min (>60); Est Glom Filt Rate - Afr Amer 35 mL/min (>60); Estimated Creatinine Clearance 22.42 ml/min; Glucose 155 mg/dL (74-106); Potassium 3.5 mmol/L (3.5-5.1); Sodium Level 141 mmol/L (136-145)
--- NOTE | 2018-12-05 10:04 | PN.CARD_ITS ---
Subjectve: The patient states she does feel better overall. She notes her breathing has improved. She feels her lower extremities are less tender to the touch. Objective: Vital Signs Temp Pulse Resp BP Pulse Ox 98.2 F 80 18 162/69 H 98 12/05/18 08:16 12/05/18 08:16 12/05/18 08:16 12/05/18 08:16 12/05/18 08:16 Oxygen Flow Rate (L/min) 2 Oxygen Delivery Method Nasal Cannula Weight: 245 lb 2.464 oz Body Mass Index (BMI) 46.9 Finger Stick Blood Glucose 155 Intake and Output for Last 24 Hours 12/03/18 12/04/18 12/05/18 23:59 23:59 23:59 Intake Total 1016 / 1136 888.47 / 888.47 120 / 120 Output Total 200 / 1300 2975 / 2975 Balance 816 / -164 -2086.53 / -2086.53 120 / 120 General: Awake, Alert, Oriented x 3, Cooperative, No Acute Distress HEENT: Atraumatic, Normocephalic, PERRL, EOMI, Sclera Non Icteric Oral: Moist Mucosa Neck: Supple, Good ROM, No JVD Lungs: - - Diminished inspiratory effort Cardiovascular: Regular Rhythm, Normal S1, Normal S2 Abdomen: Bowel Sounds Present, Soft, Non Tender Extremities: Mild RLE Edema, Mild LLE Edema, - - Lower extremities: Appear less tender to palpation Psych/Mental Status: Appropriate 12/05/18 05:10: WBC 13.1 H, RBC 2.99 L, Hgb 7.9 L, Hct 25.9 L, MCV 86.6, MCH 26.4 L, MCHC 30.5 L, Plt Count 250, MPV 9.1 12/05/18 05:10: Sodium 141, Potassium 3.5, Chloride 102, Carbon Dioxide 31.0, Anion Gap 8, BUN 31 H, Creatinine 1.82 H, Est GFR (MDRD) Af Amer 35 L, Est GFR (MDRD) Non-Af 29 L, BUN/Creatinine Ratio 17.0, Glucose 155 H, Calcium 8.4 L Rhythm: Sinus rhythm Medical Necessity - Tobacco Use Smoking Status: Former smoker Assessment/Plan 1. CHF: Acute on chronic diastolic mediated The patient presents with findings compatible with recurrent acute on chronic diastolic mediated CHF. The patient lives with her family. They have been monitoring her diet. They provide her her medications. She will continue with medical therapy and dialysis therapy in an attempt to maintain her volume status. 2. CAD status post CABG At the moment she has no complaints of ongoing chest discomfort. Her initial troponin I level was negative. She has undergone noninvasive and invasive evaluation as described above. At the moment she will continue medical management. She is not an ideal candidate for repeat evaluation in the cardiac catheterization laboratory with respect to IV contrast related studies such as a left heart catheterization based on concerns of IV contrast related nephropathy and worsening renal function. 3. Valvular heart disease She does have underlying valvular heart disease with MR and TR. Previously noted she was reassessed with an echocardiogram. Her mitral valve regurgitation appears to be somewhat more prominent. This could be a result of changes in her hemodynamics, anemia, etc. As previously noted she would have to be evaluated at a tertiary care center as to whether or not she would be a candidate for any form of mitral valve intervention. Again this could be somewhat challenging as this would be superimposed upon her multiple comorbidities. At the present time she will continue her current medical management. She will continue dialysis therapy to assist in maintaining her volume status. She will consider her options going forward depending upon her clinical course. 4. Obstructive sleep apnea/COPD The patient has a history of obstructive sleep apnea. She has reported a history of COPD. Based upon her previous PFTs she does have restrictive airway disease. She will need to continue her evaluation and care. Being followed by Dr. Ferreira from pulmonology. He has recommended based upon a conversation with him, O2 support as deemed appropriate at rest and with exertion. 5. Pulmonary hypertension She does have history of pulmonary hypertension as described above. This may be multifactorial. She may have a component related to underlying decreased diastolic compliance and/or potentially valvular heart disease. She may have a component secondary to her history of obstructive sleep apnea and COPD/restrictive disease. This can lead to cor pulmonale and right heart failure. At the present time she will continue medical management and support. She is receiving O2 therapy at this time. She is also continuing dialysis therapy to assist with volume support. 6. Hypertension She will continue medical management. Her medicines be adjusted based upon her renal insufficiency. 7. Dyslipidemia She will continue medical management as deemed appropriate. 8. Diabetes mellitus She will continue evaluation care per internal medicine. 9. Anemia Her hemoglobin has decreased somewhat. She will need continued evaluation for her underlying anemia. She may need hematology input. Ideally, if her hemoglobin could increase, this may improve her oxygen carrying capacity and help benefit her overall course. 10. Acute on chronic renal insufficiency Again, she is going to initiate dialysis to assist with her volume support. Comment: The patient's case was discussed and reviewed with the patient, her family members present, Dr. Chung, and Dr. Ferreira. This note was generated using a voice recognition system and there may be inc orrect words, spelling or punctuation that were not noted when reviewing the office note prior to saving.
--- NOTE | 2018-12-05 10:25 | PN_ITS ---
Patient Problems: Active and Suspected Problems (Last Reviewed 12/03/18 @ 10:40 by Eusebia Ramirez PA-C) Congestive heart failure (Acute) Acute renal failure (Acute) Subjective: Patient feels subjectively improved compared to yesterday. Patient does appear to be more oriented today compared to previous. Patient denies any abdominal pain. Patient less tender with palpation of the lower extremities. Patient has tolerated p.o. Patient reportedly slept in the chair overnight secondary to comfort issues. Objective: Discussed with hospitalist and cardiology about plan of care away from the patient. - Physical Exam General: Alert, Oriented x3, Cooperative, No apparent distress, - - Morbidly obese. Speaking in full sentences. HEENT: Atraumatic, PERRLA, EOMI, Normocephalic, - - No scleral icterus or injection noted. Oral: Moist Mucosa, No Gingival or Mucosal Lesions/ Ulcerations Neck: Supple, No JVD, No Nodes, Trachea Midline Lungs: No rhonchi, No wheeze, No rales, Diminished, - - Fair effort. Symmetric expansion. Cardiovascular: Regular rate, Regular Rhythm, Normal S1, Normal S2, Murmur, No rub noted, No Gallop Abdomen: Bowel Sounds Present, Soft, Non Tender, Non-Distended, Obese Extremities: No cyanosis, Capillary Refill Less than 3 Seconds, Edema - Improving Skin: - - No change compared to previous Musculoskeletal: No Tenderness to Palpation of Joints or Extremities, No Muscle Wasting Lymphatic: No Cervical, Supraclavicular, or Inguinal Adenopathy Neurological: Cranial nerves II-XII grossly intact, Neuro grossly intact, Motor Exam 5/5 strength throughout Psych/Mental Status: Alert and oriented to time, place, person, mood and affect Vital Signs Temp Pulse Resp BP Pulse Ox 36.8 C 80 18 162/69 H 98 12/05/18 08:16 12/05/18 08:16 12/05/18 08:16 12/05/18 08:16 12/05/18 08:16 Oxygen Flow Rate (L/min) 2 Oxygen Delivery Method Nasal Cannula Weight: 111.2 kg Body Mass Index (BMI) 46.9 Finger Stick Blood Glucose 155 Intake and Output for Last 24 Hours 12/03/18 12/04/18 12/05/18 23:59 23:59 23:59 Intake Total 1016 / 1136 888.47 / 888.47 120 / 120 Output Total 200 / 1300 2975 / 2975 Balance 816 / -164 -2086.53 / -2086.53 120 / 120 Laboratory Tests Past 24 Hrs 12/05/18 12/05/18 05:10 05:10 WBC 13.1 H RBC 2.99 L Hgb 7.9 L Hct 25.9 L MCV 86.6 MCH 26.4 L MCHC 30.5 L RDW Std Deviation 51.8 H RDW Coeff of Becca 16.5 H Plt Count 250 MPV 9.1 Sodium 141 Potassium 3.5 Chloride 102 Carbon Dioxide 31.0 Anion Gap 8 BUN 31 H Creatinine 1.82 H Estim Creat Clear Calc 22.42 Est GFR (MDRD) Af Amer 35 L Est GFR (MDRD) Non-Af 29 L BUN/Creatinine Ratio 17.0 Glucose 155 H Calcium 8.4 L POC Glucose 12/04/18 12/04/18 12/04/18 21:56 16:32 11:34 POC Glucose 140 H 154 H 121 H Medical Necessity - Tobacco Use Smoking Status: Former smoker Assessment/Plan All Active Problems (Last Reviewed 12/03/18 @ 10:40 by Eusebia Ramirez PA-C) Congestive heart failure (Acute) Acute renal failure (Acute) Abdominal pain (Acute) Acute renal failure superimposed on stage 3 chronic kidney disease (Acute) Acute respiratory failure with hypoxia (Ruled-out) RECOMMENDATIONS: 1. Continue diuresis as tolerated. Aggressive potassium repletion as indicated 2. Continue to monitor continuous pulse ox and telemetry. Walking oximetry prior to discharge 3. Use baseline BiPAP with sleep and for rescue 4. No indication for IV steroids or antibiotics from my perspective 5. Wean supplemental oxygen as tolerated 6. Hemodialysis per nephrology IMPRESSIONS: 1. Acute hypoxic respiratory insufficiency secondary to acute on chronic diastolic CHF Patient is appropriately on diuretic therapy. Agree with fluid restriction. Unclear if patient is having an element of exertional hypoxemia leading to exacerbation of pulmonary artery pressures and cor pulmonale. Patient does not appear to have any exacerbation of underlying lung disorder at this time. Patient has continued to improve with diuretic therapy. Patient had volume removal yesterday with hemodialysis and appears to be improving today. Can continue diuretic therapy, but intermittent ultrafiltration may be necess christi. Defer to nephrology. 2. Type II pulmonary hypertension/obstructive sleep apnea Patient with moderate to severe elevation on right heart cath in the past. Acute hypoxemia would exacerbate patient's underlying cor pulmonale could lead to flash pulmonary edema. Patient saturations are doing well at this time. We will continue to monitor. Patient appears to be responding well to diuretic therapy. Patient should have a walking oximetry prior to discharge. It will be impaired if the patient's saturations stay above 90% at all times, even with ambulation. Continue BiPAP with sleep. This is complicated by relatively severe MVR and diffuse aortic valve calcification. Discussed this plan of care with family at the bedside at length. 3. Hypertension/diabetes mellitus/iron deficiency anemia/advanced age/morbid obesity Complicates care, management, recovery and prognosis. Patient has received iron infusions recently for iron deficiency anemia. Continue to monitor blood sugars closely. Encourage weight loss. 4. Acute delirium Improving. Patient has had difficulty with delirium in the past. Long discussion with the daughter at the bedside about conservative measures for dealing with delirium. Patient did have glasses in place. Blinds were raised. Code Visit Inpatient E&M: 12145 Subs Hosp L2
[2018-12-05] MEDS: Aspirin E.C. 81 MG Tablet PO (10:39)
[2018-12-05] MEDS: Ascorbic Acid 500 MG Tablet PO ×2 (10:39→17:25)
[2018-12-05] MEDS: Carvedilol 6.25 MG Tablet PO ×2 (10:39→20:57)
[2018-12-05] MEDS: Bumetanide 2 MG Tablet PO (10:39)
[2018-12-05] MEDS: Pantoprazole Sodium 40 MG Tablet PO (10:40)
[2018-12-05] MEDS: Isosorbide Mononitrate 60 MG Tablet PO (10:40)
[2018-12-05] MEDS: Ferrous Sulfate 325 MG Tablet PO ×2 (10:41→17:25)
[2018-12-05] MEDS: amLODIPine 10 MG Tablet PO (10:45)
--- NOTE | 2018-12-05 10:48 | PCM.PN.REN ---
Patient Problems: Active and Suspected Problems (Last Reviewed 12/03/18 @ 10:40 by Eusebia Ramirez PA-C) Congestive heart failure (Acute) Acute renal failure (Acute) Subjective: no new events - Physical Exam General: Alert, Oriented x3, Cooperative HEENT: Atraumatic, PERRLA, EOMI, Normocephalic Neck: Supple, No JVD, Negative Carotid Bruits Lungs: Clear to auscultation, Normal air movement Cardiovascular: Regular rate, No murmurs Abdomen: Bowel Sounds Present, Soft, Non Tender Extremities: No edema, Capillary Refill Less than 3 Seconds Skin: No rashes, No breakdown Musculoskeletal: No Tenderness to Palpation of Joints or Extremities Neurological: Cranial nerves II-XII grossly intact Psych/Mental Status: Normal Affect, Appropriate Vital Signs Temp Pulse Resp BP Pulse Ox 98.2 F 80 18 162/69 H 98 12/05/18 08:16 12/05/18 08:16 12/05/18 08:16 12/05/18 08:16 12/05/18 08:16 Oxygen Flow Rate (L/min) 2 Oxygen Delivery Method Nasal Cannula Weight: 111.2 kg Body Mass Index (BMI) 46.9 Finger Stick Blood Glucose 155 Intake and Output for Last 24 Hours 12/03/18 12/04/18 12/05/18 23:59 23:59 23:59 Intake Total 1016 / 1136 888.47 / 888.47 120 / 120 Output Total 200 / 1300 2975 / 2975 Balance 816 / -164 -2086.53 / -2086.53 120 / 120 Laboratory Tests Past 24 Hrs 12/05/18 12/05/18 05:10 05:10 WBC 13.1 H RBC 2.99 L Hgb 7.9 L Hct 25.9 L MCV 86.6 MCH 26.4 L MCHC 30.5 L RDW Std Deviation 51.8 H RDW Coeff of Becca 16.5 H Plt Count 250 MPV 9.1 Sodium 141 Potassium 3.5 Chloride 102 Carbon Dioxide 31.0 Anion Gap 8 BUN 31 H Creatinine 1.82 H Estim Creat Clear Calc 22.42 Est GFR (MDRD) Af Amer 35 L Est GFR (MDRD) Non-Af 29 L BUN/Creatinine Ratio 17.0 Glucose 155 H Calcium 8.4 L POC Glucose 12/04/18 12/04/1819 21:56 16:32 11:34 POC Glucose 140 H 154 H 121 H Medical Necessity - Tobacco Use Smoking Status: Former smoker Assessment/Plan All Active Problems (Last Reviewed 12/03/18 @ 10:40 by Eusebia Ramirez PA-C) Congestive heart failure (Acute) Acute renal failure (Acute) Abdominal pain (Acute) Acute renal failure superimposed on stage 3 chronic kidney disease (Acute) Acute respiratory failure with hypoxia (Ruled-out) Acute renal failure Chronic kidney disease stage III Congestive heart failure Overall volume status is decompensated. She failed multiple outpatient trial of diuretics. This is her third admission in the last 2 weeks with similar complaints. We sent her home on high-dose of Bumex and metolazone and she still came back with similar complaints. Blood pressure is high normal. started HD 2 days ago needs placement as KURT some oozing from TDC site which is better plan to do dialysis for 4 weeks and assess response called dialysis unit. has a MWF spot. will plan for HD tomorrow family deciding on placement
[2018-12-05 10:51] LABS: Bedside Glucose 134 mg/dL (70-110)
[2018-12-05 12:24] LABS: Hepatitis B Core Ab Total Negative (Negative)
[2018-12-05] MEDS: Budesonide Respules 0.5 MG/2 ML AMPUL.NEB. INHALATION ×2 (13:08→20:08)
[2018-12-05] MEDS: Ipratropium/Albuterol Sulfate 3 ML AMPUL.NEB INHALATION ×2 (13:08→20:07)
--- NOTE | 2018-12-05 14:11 | PCM.PROGNOTE ---
<Tutu Arevalo - Last Filed: 12/05/18 14:11> Patient Problems: Active and Suspected Problems (Last Reviewed 12/03/18 @ 10:40 by Eusebia Ramirez PA-C) Congestive heart failure (Acute) Acute renal failure (Acute) Subjective: No increased SOB/cough/CP/pressure/edema/LH/dizziness. Pt complains of ongoing fatigue. Tolerating dialysis well. No confusion or muscle cramps. - Physical Exam General: Alert, Oriented x3, Cooperative HEENT: Atraumatic, PERRLA, EOMI, Normocephalic Neck: Supple, No JVD, Negative Carotid Bruits Lungs: Clear to auscultation, Diminished Cardiovascular: Regular rate, No murmurs Abdomen: Bowel Sounds Present, Soft, Non Tender Extremities: Capillary Refill Less than 3 Seconds, Edema - 2+ pitting edema BLE Skin: No rashes, No breakdown Musculoskeletal: No Tenderness to Palpation of Joints or Extremities Neurological: Cranial nerves II-XII grossly intact Psych/Mental Status: Normal Affect, Appropriate, Alert and oriented to time, place, person, mood and affect Vital Signs Temp Pulse Resp BP Pulse Ox 98.2 F 94 20 H 162/69 H 98 12/05/18 08:16 12/05/18 13:08 12/05/18 13:08 12/05/18 08:16 12/05/18 08:16 Oxygen Flow Rate (L/min) 2 Oxygen Delivery Method Nasal Cannula Weight: 245 lb 2.464 oz Body Mass Index (BMI) 46.9 Finger Stick Blood Glucose 155 Intake and Output for Last 24 Hours 12/03/18 12/04/18 12/05/18 23:59 23:59 23:59 Intake Total 1016 / 1136 888.47 / 888.47 120 / 120 Output Total 200 / 1300 2975 / 2975 Balance 816 / -164 -2086.53 / -2086.53 120 / 120 Laboratory Tests Past 24 Hrs 12/03/18 12/05/18 12/05/18 20:25 05:10 05:10 WBC 13.1 H RBC 2.99 L Hgb 7.9 L Hct 25.9 L MCV 86.6 MCH 26.4 L MCHC 30.5 L RDW Std Deviation 51.8 H RDW Coeff of Becca 16.5 H Plt Count 250 MPV 9.1 Sodium 141 Potassium 3.5 Chloride 102 Carbon Dioxide 31.0 Anion Gap 8 BUN 31 H Creatinine 1.82 H Estim Creat Clear Calc 22.42 Est GFR (MDRD) Af Amer 35 L Est GFR (MDRD) Non-Af 29 L BUN/Creatinine Ratio 17.0 Glucose 155 H Calcium 8.4 L Hep B Core Total Ab Negative POC Glucose 12/05/18 12/04/18 12/04/18 10:35 21:56 16:32 POC Glucose 134 H 140 H 154 H Medical Necessity - Tobacco Use Smoking Status: Former smoker Assessment/Plan All Active Problems (Last Reviewed 12/03/18 @ 10:40 by Eusebia Ramirez PA-C) Congestive heart failure (Acute) Acute renal failure (Acute) Abdominal pain (Acute) Acute renal failure superimposed on stage 3 chronic kidney disease (Acute) Acute respiratory failure with hypoxia (Ruled-out) 1. KURT on CKD III - temporary dialysis, last session yesterday. Dr. Waite following. Volume status appears stable. Mild leukocytosis, no fever. No specific symptoms suggestive of acute infection at this time. 2. Chronic diastolic CHF exacerbation - complicated by severe MVR, pulmonary HTN. Cardiology following. pt responds poorly to oral diuretics. currently stable with dialysis. 3. Pulmonary HTN - complicating above. diuretics continued. 4. ELAINE - BiPAP qhs. Probably OHS as she is morbidly obese, 5. CAD - prior CABG. Coreg, imdur, asa, statin, 6. DMt2 with morbid obesity - SSI. A1C 7.5 in november, which is adequate for her age. 7. Chronic iron def anemia - Low but stable. Continue po iron. Recent iron/sat low 11/16. Venofer x1. Likely not absorbing oral iron with PPI use. 8. GERD/gastritis - PPI. 9. HLD - statin DVT ppx: lovenox DC planning: HH at hi This patient was seen by Tutu Arevalo PA-C under the supervision of Dr. Chung. <Quinten Chung F - Last Filed: 12/05/18 17:13> - Physical Exam Vital Signs Temp Pulse Resp BP Pulse Ox 99.0 F 80 18 149/57 H 95 12/05/18 14:00 12/05/18 14:41 12/05/18 14:00 12/05/18 14:41 12/05/18 14:00 Oxygen Flow Rate (L/min) 2 Oxygen Delivery Method Nasal Cannula Weight: 245 lb 2.464 oz Body Mass Index (BMI) 46.9 Finger Stick Blood Glucose 155 Intake and Output for Last 24 Hours 12/03/18 12/04/18 12/05/18 23:59 23:59 23:59 Intake Total 1016 / 1136 888.47 / 888.47 120 / 120 Output Total 200 / 1300 2975 / 2975 Balance 816 / -164 -2086.53 / -2086.53 120 / 120 Laboratory Tests Past 24 Hrs 12/03/18 12/05/18 12/05/18 20:25 05:10 05:10 WBC 13.1 H RBC 2.99 L Hgb 7.9 L Hct 25.9 L MCV 86.6 MCH 26.4 L MCHC 30.5 L RDW Std Deviation 51.8 H RDW Coeff of Becca 16.5 H Plt Count 250 MPV 9.1 Sodium 141 Potassium 3.5 Chloride 102 Carbon Dioxide 31.0 Anion Gap 8 BUN 31 H Creatinine 1.82 H Estim Creat Clear Calc 22.42 Est GFR (MDRD) Af Amer 35 L Est GFR (MDRD) Non-Af 29 L BUN/Creatinine Ratio 17.0 Glucose 155 H Calcium 8.4 L Hep B Core Total Ab Negative POC Glucose 12/05/18 12/04/18 10:35 21:56 POC Glucose 134 H 140 H Code Visit Addendum: Dr. Chung I personally examined the patient and reviewed the chart. I agree with the above. 72-year-old female presenting for the first third time in as many weeks, with acute on chronic diastolic heart failure with chronic hypoxic respiratory failure secondary to COPD and heart failure and pulmonary hypertension with KURT on CKD. She was started on Bumex drip and is diuresed fairly well however nephrology was consulted to help assist with volume status and she the patient agreed to a temporary dialysis catheter for potentially temporary dialysis. 2 L of fluid removed last night on dialysis and she is can undergo another shorter course of dialysis today. Her Bumex drip was stopped and she was reverted back to her oral Bumex. She has had some wound seepage around the catheter site, so her Lovenox and her aspirin were held and surgery was able to reinforce the dressing in place additional sutures to help control the bleeding. Plan will be for discharge tomorrow since she does not want to go to a longterm for rehab. Inpatient E&M: 34686 Subs Hosp L2
[2018-12-05] MEDS: hydrALAZINE 50 MG Tablet 100 MG PO ×2 (14:41→20:57)
--- NOTE | 2018-12-05 15:23 | PCM.PN.BLA ---
Progress Note Catheter site inspected and remains dry s/p additional sutures placed per FRNA, Kellie Continue care
--- NOTE | 2018-12-05 16:30 | CASEMGMT ---
Case Management Progress Note: Patient Dtr Doris called this repairer typewriter twice. First call- requiring about MOD here discussing with patient and Dtr about SNF and TCU here. This repairer typewriter explained to Dtr that TCU does not take HD patients. Dtr states does not want patient to go to any other SNF and that she has heard bad things and could take better care of patient at home. Upset that MOD would even mention and discuss TCU if they could not even take patients on HD. This repairer typewriter apologized and provided her with patient advocate number. States that she was on her way to the hospital. Second call to this repairer typewriter inquiring about DC plan- states that the doctor told her that they were monitoring patient BP d/t HD and that they would now need to switch HD center as plan has changed for patient to be discharged with her sister Adilene whom doesn't work and would need to change HD center to one in [place], [place] on [facility] same dialysis company has one that was arranged out here- [facility]. Royal CM called [facility]ma[facility] Hobson and s[facility]w J[facility] Nguyen [phone] and was going to send them a message to [facility] and [facility] updating on request to change facility. Yehuda Ivey RNCM
[2018-12-05 19:36] LABS: Bedside Glucose 134 mg/dL (70-110)
[2018-12-05] MEDS: Doxazosin 4 MG Tablet 8 MG PO (20:56)
[2018-12-05] MEDS: Amitriptyline 100 MG Tablet PO (20:56)
[2018-12-05] MEDS: Atorvastatin Calcium 80 MG Tablet PO (20:57)
[2018-12-05] MEDS: Gabapentin 300 MG Capsule PO (20:57)
[2018-12-05 21:20] LABS: Bedside Glucose 133 mg/dL (70-110)
[2018-12-06] VITALS (9 sets, daily range): BP systolic 127–149; BP diastolic 49–78; PULSE 73–83; RESP 18; TEMP 36.6–37.2; O2SAT 96–99
--- NOTE | 2018-12-06 06:36 | NURSING ---
This RN went into Pt room to obtain vitals, give Apresoline, and check/cover blood sugar. When attempting to take vitals Pt became irritated and threw cpap off onto foot of bed. Pt then refused to have any vitals or sugar taken, and any meds given.
[2018-12-06] MEDS: Budesonide Respules 0.5 MG/2 ML AMPUL.NEB. INHALATION (07:03)
[2018-12-06] MEDS: Ipratropium/Albuterol Sulfate 3 ML AMPUL.NEB INHALATION ×2 (07:03→12:55)
[2018-12-06 08:35] LABS: Anion Gap 7 (5-15); BUN 35 mg/dL (7-18); BUN/Creat Ratio 15.7 RATIO (10-20); Calcium,Total 8.8 mg/dL (8.5-10.1); Chloride 103 mmol/L (98-107); Creatinine, Serum 2.23 mg/dL (0.55-1.02); EST Glomerular Filtration Rate 23 mL/min (>60); Est Glom Filt Rate - Afr Amer 28 mL/min (>60); Glucose 87 mg/dL (74-106); Magnesium 2.1 mg/dL (1.6-2.6); Phosphorus 3.9 mg/dL (2.5-4.9); Potassium 3.6 mmol/L (3.5-5.1); Sodium Level 139 mmol/L (136-145)
[2018-12-06 09:05] LABS: Bedside Glucose 94 mg/dL (70-110)
--- NOTE | 2018-12-06 10:16 | PCM.PN.PUL ---
Patient Problems: Active and Suspected Problems (Last Reviewed 12/03/18 @ 10:40 by Eusebia Ramirez PA-C) Congestive heart failure (Acute) Acute renal failure (Acute) Subjective: Patient did okay overnight. Patient is more cantankerous today compared to previous. Patient states that she is been compliant with low-salt diet, but saltines and potato chips are on her table. Patient states I am going home today no matter what. Objective: Patient seen while on hemodialysis and tolerating well - Physical Exam General: Alert, Oriented x3, Cooperative, No apparent distress, - - Morbidly obese. Speaking in full sentences. Nasal cannula in place. HEENT: Atraumatic, PERRLA, EOMI, Normocephalic, - - No scleral icterus or injection noted. Oral: Moist Mucosa, No Gingival or Mucosal Lesions/ Ulcerations Neck: Supple, No JVD, No Nodes, Trachea Midline, - - Tunneled hemodialysis catheter appears clean, dry and intact Lungs: No rhonchi, No wheeze, No rales, Diminished Cardiovascular: Regular rate, Regular Rhythm, Normal S1, Normal S2, No murmurs, No rub noted, No Gallop Abdomen: Bowel Sounds Present, Soft, Non Tender, Non-Distended Extremities: No clubbing, No cyanosis, Edema - Continues to improve Skin: No rashes, No breakdown Musculoskeletal: No Tenderness to Palpation of Joints or Extremities Lymphatic: No Cervical, Supraclavicular, or Inguinal Adenopathy Neurological: Cranial nerves II-XII grossly intact, Neuro grossly intact, Motor Exam 5/5 strength throughout Psych/Mental Status: Alert and oriented to time, place, person, mood and affect Vital Signs Temp Pulse Resp BP Pulse Ox 37.2 C 82 18 149/49 H 96 12/06/18 02:55 12/06/18 07:41 12/06/18 07:05 12/06/18 02:55 12/06/18 07:23 Oxygen Flow Rate (L/min) 2 Oxygen Delivery Method Nasal Cannula Weight: 107.6 kg Body Mass Index (BMI) 46.9 Finger Stick Blood Glucose 155 Intake and Output for Last 24 Hours 12/04/18 12/05/18 12/06/18 23:59 23:59 23:59 Intake Total 888.47 / 888.47 680 / 800 120 / 120 Output Total 2975 / 2975 400 / 575 175 / 175 Balance -2086.53 / -2086.53 280 / 225 -55 / -55 Laboratory Tests Past 24 Hrs 12/03/18 12/06/18 20:25 07:47 Sodium 139 Potassium 3.6 Chloride 103 Carbon Dioxide 29.0 Anion Gap 7 BUN 35 H Creatinine 2.23 H Estim Creat Clear Calc 18.30 Est GFR (MDRD) Af Amer 28 L Est GFR (MDRD) Non-Af 23 L BUN/Creatinine Ratio 15.7 Glucose 87 Calcium 8.8 Phosphorus 3.9 Magnesium 2.1 Hep B Core Total Ab Negative POC Glucose 12/06/18 12/05/18 12/05/18 08:37 20:53 17:17 POC Glucose 94 133 H 134 H 12/05/18 10:35 POC Glucose 134 H Medical Necessity - Tobacco Use Smoking Status: Former smoker Assessment/Plan All Active Problems (Last Reviewed 12/03/18 @ 10:40 by Eusebia Ramirez PA-C) Congestive heart failure (Acute) Acute renal failure (Acute) Abdominal pain (Acute) Acute renal failure superimposed on stage 3 chronic kidney disease (Acute) Acute respiratory failure with hypoxia (Ruled-out) RECOMMENDATIONS: 1. Continue diuresis as tolerated. Reiterate need for low-salt diet 2. Continue to monitor continuous pulse ox and telemetry. Walking oximetry prior to discharge 3. Use baseline BiPAP with sleep 4. No indication for IV steroids or antibiotics from my perspective 5. Wean supplemental oxygen as tolerated 6. Hemodialysis per nephrology IMPRESSIONS: 1. Acute hypoxic respiratory insufficiency secondary to acute on chronic diastolic CHF Patient is appropriately on diuretic therapy. Agree with fluid restriction. Unclear if patient is having an element of exertional hypoxemia leading to exacerbation of pulmonary artery pressures and cor pulmonale. Stressed to the patient the importance of keeping saturations greater than 90% at all times. Patient does not appear to have any exacerbation of underlying lung disorder at this time. Patient has continued to improve with diuretic therapy without antibiotics or steroid therapy, inferring lack of underlying pulmonary exacerbation. Patient having volume removal now with hemodialysis and appears to be tolerating well. Can continue diuretic therapy, but intermittent ultrafiltration may be necessary. Defer to nephrology. 2. Type II pulmonary hypertension/obstructive sleep apnea Patient with moderate to severe elevation on right heart cath in the past. Acute hypoxemia would exacerbate patient's underlying cor pulmonale could lead to flash pulmonary edema. Patient saturations are doing well at this time. We will continue to monitor. Patient appears to be responding well to diuretic therapy. Patient should have a walking oximetry prior to discharge. It will be impaired if the patient's saturations stay above 90% at all times, even with ambulation. Continue BiPAP with sleep. This is complicated by relatively severe MVR and diffuse aortic valve calcification. Discussed this plan of care with son-in-law at the bedside at length. 3. Hypertension/diabetes mellitus/iron deficiency anemia/advanced age/morbid obesity Complicates care, management, recovery and prognosis. Patient has received iron infusions recently for iron deficiency anemia. Continue to monitor blood sugars closely. Encourage weight loss. 4. Acute delirium Resolved. Patient has had difficulty with delirium in the past. Long discussion with the daughter at the bedside about conservative measures for dealing with delirium. Patient did have glasses in place. Blinds were raised. Code Visit Inpatient E&M: 20619 Subs Hosp L2
--- NOTE | 2018-12-06 10:27 | PCM.PN.CARD ---
Subjectve: The patient is awake and alert. She states overall she still feels better. She notes her breathing has improved. She also notes her legs are not tender today. This is all changed since initiation of dialysis therapy. Objective: Vital Signs Temp Pulse Resp BP Pulse Ox 98.9 F 82 18 149/49 H 96 12/06/18 02:55 12/06/18 07:41 12/06/18 07:05 12/06/18 02:55 12/06/18 07:23 Oxygen Flow Rate (L/min) 2 Oxygen Delivery Method Nasal Cannula Weight: 237 lb 3.478 oz Body Mass Index (BMI) 46.9 Finger Stick Blood Glucose 155 Intake and Output for Last 24 Hours 12/04/18 12/05/18 12/06/18 23:59 23:59 23:59 Intake Total 888.47 / 888.47 680 / 800 120 / 120 Output Total 2975 / 2975 400 / 575 175 / 175 Balance -2086.53 / -2086.53 280 / 225 -55 / -55 General: Awake, Alert, Oriented x 3, Cooperative, No Acute Distress, Obese HEENT: Atraumatic, Normocephalic, PERRL, EOMI, Sclera Non Icteric Oral: Moist Mucosa Neck: Supple, Good ROM, No JVD Lungs: Clear to auscultation Cardiovascular: Regular Rhythm, Normal S1, Normal S2 Abdomen: Bowel Sounds Present, Soft, Non Tender Extremities: Mild RLE Edema, Mild LLE Edema Psych/Mental Status: Appropriate 12/06/18 07:47: Sodium 139, Potassium 3.6, Chloride 103, Carbon Dioxide 29.0, Anion Gap 7, BUN 35 H, Creatinine 2.23 H, Est GFR (MDRD) Af Amer 28 L, Est GFR (MDRD) Non-Af 23 L, BUN/Creatinine Ratio 15.7, Glucose 87, Calcium 8.8, Phosphorus 3.9, Magnesium 2.1 Rhythm: Sinus rhythm Medical Necessity - Tobacco Use Smoking Status: Former smoker Assessment/Plan 1. CHF: Acute on chronic diastolic mediated The patient presents with findings compatible with recurrent acute on chronic diastolic mediated CHF. She will continue with medical therapy and dialysis therapy in an attempt to maintain her volume status. 2. CAD status post CABG At the moment she has no complaints of ongoing chest discomfort. Her initial troponin I level was negative. She has undergone noninvasive and invasive evaluation as described above. At the moment she will continue medical management. She is not an ideal candidate for repeat evaluation in the cardiac catheterization laboratory with respect to IV contrast related studies such as a left heart catheterization based on concerns of IV contrast related nephropathy and worsening renal function. 3. Valvular heart disease She does have underlying valvular heart disease with MR and TR. Previously noted she was reassessed with an echocardiogram. Her mitral valve regurgitation appears to be somewhat more prominent. This could be a result of changes in her hemodynamics, anemia, etc. As previously noted she would have to be evaluated at a tertiary care center as to whether or not she would be a candidate for any form of mitral valve intervention. Again this could be somewhat challenging as this would be superimposed upon her multiple comorbidities. At the present time she will continue her current medical management. She will continue dialysis therapy to assist in maintaining her volume status. She will consider her options going forward depending upon her clinical course. 4. Obstructive sleep apnea/COPD The patient has a history of obstructive sleep apnea. She has reported a history of COPD. Based upon her previous PFTs she does have restrictive airway disease. She will need to continue her evaluation and care. Being followed by Dr. Ferreira from pulmonology. He has recommended based upon a conversation with him, O2 support as deemed appropriate at rest and with exertion. 5. Pulmonary hypertension She does have history of pulmonary hypertension as described above. This may be multifactorial. She may have a component related to underlying decreased diastolic compliance and/or potentially valvular heart disease. She may have a component secondary to her history of obstructive sleep apnea and COPD/restrictive disease. This can lead to cor pulmonale and right heart failure. At the present time she will continue medical management and support. She is receiving O2 therapy at this time. She is also continuing dialysis therapy to assist with volume support. 6. Hypertension She will continue medical management. Her medicines be adjusted based upon her renal insufficiency. 7. Dyslipidemia She will continue medical management as deemed appropriate. 8. Diabetes mellitus She will continue evaluation care per internal medicine. 9. Anemia Her hemoglobin has decreased somewhat. She will need continued evaluation for her underlying anemia. She may need hematology input. Ideally, if her hemoglobin could increase, this may improve her oxygen carrying capacity and help benefit her overall course. 10. Acute on chronic renal insufficiency Again, she is going to initiate dialysis to assist with her volume support. Overall she appears to have had improvement since initiation of dialysis therapy. She will continue dialysis therapy under the direction of nephrology. She will need continued outpatient PCP follow-up, cardiovascular follow-up, and pulmonology follow-up as well. Comment: The patient's case was discussed and reviewed with the patient. This note was generated using a voice recognition system and there may be incorrect words, spelling or punctuation that were not noted when reviewing the office note prior to saving.
--- NOTE | 2018-12-06 11:30 | CASEMGMT ---
This RN CM received in report that per pt daughters, pt will now be moving to live with her daughter, Adilene, in [place] and that they would like dialysis center switched to [facility]. Pt is sleeping and also getting dialysis at this time. Call to pt's daughter, Doris, at this time to verify discharge plan and per Doris, pt will be going to live with her sister, Adilene, in [place] and they would like pt switched to the [facility] on [facility] in [place] at this time. She states that pt/daughters would also still like [facility] PT set up for pt at discharge, but that this RN CM needs to speak with daughter, Adilene, upon her arrival to figure out [facility] company preference in [place]. Dyan RN CM
--- NOTE | 2018-12-06 11:47 | DCINST_ITS ---
- Discharge Diagnoses Current Active Problems: Current Active and Chronic Problems (Last Reviewed 12/03/18 @ 10:40 by Eusebia Rmairez PA-C) Congestive heart failure (Acute) Valvular heart disease (Chronic) Acute renal failure (Acute) You will use the following diet at home:: Renal (restricted protein/sodium) Your food should be the consistency of: Regular Your liquids should be the consistency of: Regular/Thin Discharge Activity: Return to Normal Activity Allergies/Adverse Reactions: Allergies Penicillins Allergy (Verified 12/01/18 14:55) Hives adhesive tape Adverse Reaction (Verified 12/01/18 14:55) Other Medications to take at Discharge Amitriptyline HCl [Elavil] 100 mg PO QHS 04/09/13 Aspirin E.C. [Ecotrin] 81 mg PO DAILY 10/25/17 Atorvastatin Calcium 80 mg PO DAILY 10/25/17 Gabapentin [Neurontin] 300 mg PO QHS 10/25/17 Amlodipine Besylate 10 mg PO DAILY 06/01/18 Ferrous Sulfate 325 mg PO 1200,1700 #120 tab 07/09/18 carvedilol 6.25 mg tablet 6.25 mg PO BID #60 tab 07/31/18 isosorbide mononitrate ER 60 mg tablet,extended release 24 hr 60 mg PO DAILY #60 tab 07/31/18 Albuterol Sulfate 1.25 mg IH 4X/DAY 08/20/18 Doxazosin Mesylate 8 mg PO QHS 08/20/18 Hydralazine HCl 200 mg PO DAILY 08/20/18 Omeprazole 40 mg PO DAILY 08/20/18 budesonide-formoterol HFA 160 mcg-4.5 mcg/actuation aerosol inhaler 2 puff INHALATION BID #1 ea 09/25/18 tiotropium 2.5 mcg-olodaterol 2.5 mcg/actuation mist for inhalation 2 puff INHALATION DAILY #4 g 10/28/18 Hydralazine HCl 100 mg PO QHS 11/26/18 Bumetanide [Bumex] 2 mg NG DAILY #30 tab 11/28/18 Glimepiride [Amaryl] 1 mg PO DAILY #30 tab 11/28/18 Metolazone [Zaroxolyn] 5 mg PO DAILY #15 tab 11/28/18 Pantoprazole Sodium [Protonix] 40 mg PO DAILY #14 tab 11/28/18 Acetaminophen [Tylenol Tablet] 650 mg PO Q6H PRN PRN tab 12/06/18 Ascorbic Acid [Vitamin C] 500 mg PO DAILY@0800,1700 tab 12/06/18 Potassium Chloride [K-Dur] 20 meq PO BIDCM tab 12/06/18 Primary Care Physician: Levi Laird MD [Primary Care Provider] - Please follow up with your Primary Care Physician in: 1-2 weeks Test Results: Test results from this visit will be discussed in further detail at your follow- up appointment, if applicable. Please Follow Up With: Levi Laird MD Please Follow Up With: Evert Waite MD When: as directed Please Follow Up With: Alex Clarke MD When: as directed Please Follow Up With: Lucien Ferreira MD When: 2 weeks Please Follow Up With: Perry Tavarez MD When: As directed Proposed Discharge Date: 12/06/18
--- NOTE | 2018-12-06 12:15 | DIALYSIS ---
Hemodialysis tx completed x 3.5 hours without complications. Pt tolerated tx well, fluid removed 3,500ml. Vitals stable throughout tx. Verbal report given to RANDY singh post tx. Next scheduled dialysis tx 12/09/18.
--- NOTE | 2018-12-06 12:17 | NS ---
Do not have butter aamir flores - pt willing to have vanilla instead.
[2018-12-06] MEDS: Heparin 10,000 UNITS/10 ML Vial 1000 UNITS IV (12:19)
[2018-12-06] MEDS: Aspirin E.C. 81 MG Tablet PO (12:22)
[2018-12-06] MEDS: Ascorbic Acid 500 MG Tablet PO (12:23)
[2018-12-06] MEDS: Pantoprazole Sodium 40 MG Tablet PO (12:23)
[2018-12-06] MEDS: Isosorbide Mononitrate 60 MG Tablet PO (12:23)
[2018-12-06] MEDS: Bumetanide 2 MG Tablet PO (12:23)
[2018-12-06] MEDS: Carvedilol 6.25 MG Tablet PO (12:23)
[2018-12-06] MEDS: amLODIPine 10 MG Tablet PO (12:23)
[2018-12-06] MEDS: Ferrous Sulfate 325 MG Tablet PO (12:23)
[2018-12-06] MEDS: hydrALAZINE 50 MG Tablet 100 MG PO (12:24)
[2018-12-06] MEDS: Enoxaparin 30 MG/0.3 ML Syringe SC (12:25)
--- NOTE | 2018-12-06 12:42 | CASEMGMT ---
Addendum entered by Mayra Zayas 12/06/18 14:13: 1235 Schedule letter received from [facility] stating starting date at this time which means financials have been approved. Pt scheduled at [facility] for TTS at 0700. Pt/family updated at this time and pt's daughter, Adilene, states that they would like [facility] at this time for PT. Pt/family given copy of schedule letter at this time. Referral faxed to [facility] at this time and call to intake to notify of pt at this time and they state that they will notify this RN CM when referral packet received. Dyan PADILLA CM Original Note: [facility]family would like [facility] switch to the [facility] dialysis at this time and per Sandy, the only time they have available(after she called the clinic) is MWF at 1645. Pt's daughter, Adilene, arrived at the hospital at that time and this RN CM shared this with her at this time. Adilene needed a few minutes to see if they would be able to transport pt as her was the one who was supposed to be able to transport as Adilene can't drive as she is legally blind. Adilene's works 2nd shift and would not be able to transport pt at this time and neither would Adilene's daughter, so Adilene asked if there were any TTS morning times available. Call to [facility] and per rep, they only have afternoon times on MWF and no times on TTS at this time, but rep does suggest that [facility] may have other times available. Call to Prema Romero at [facility] and she states that they do have a TTS at 0700 available at this time. Pt/daughter, Adilene, updated at this time and they state they would like these days/time at this time. Call to Sandy at [facility] and Prema Romero at [facility] to notify that pt would like the TTS at 0700, voice understanding. Per both, the financials will have to be re-verified at this time and pt/family aware. Pt's daughter, Adilene, provided with [facility] list of HHC agencies in [place] at this time and this RN CM will check back later to confirm HHC choice. Dyan PADILLA CM
--- NOTE | 2018-12-06 14:25 | CASEMGMT ---
Addendum entered by Mayra Zayas 12/06/18 15:03: Call to [facility] and per rep, they are able to take pt for PT at this time and she states that the nurse is reviewing chart and will call family to set up start of care. Dyan PADILLA CM Original Note: Dr. Waite, skiff operator, is aware that pt now going to [facility] on TTS schedule and he states that he is fine with pt 1st OP dialysis to be 12/10. Dyan PADILLA CM
--- NOTE | 2018-12-06 16:19 | PCM.DC.SUM ---
<Tutu Arevalo - Last Filed: 12/06/18 16:19> Discharge Date and Diagnosis Date of Admission: 12/01/18 Date of Discharge: 12/06/18 - Primary Discharge Diagnosis Active and Suspected Problems (Last Reviewed 12/03/18 @ 10:40 by Eusebia Ramirez PA-C) Acute on chronic diastolic Congestive heart failure (Acute) KURT on CKD IV Temporary dialysis Pulmonary HTN ELAINE CAD, prior CABG DMt2 with morbid obesity Chronic iron def anemia GERD/Gastritis HLD - Secondary Discharge Diagnosis Chronic Problems (Last Reviewed 12/03/18 @ 10:40 by Eusebia Ramirez PA-C) Valvular heart disease (Chronic) Iron deficiency anemia (Chronic) Tricuspid insufficiency (Chronic) Mitral insufficiency (Chronic) ELAINE (obstructive sleep apnea) (Chronic) CKD (chronic kidney disease), stage III (Chronic) Atherosclerotic heart disease of [place] coronary artery without angina pectoris (Chronic) NATHAN to the LAD, and SVG to the diagonal branch, and SVG to the LCx system, and an SVG to the RCA on 04/16/2013 at [facility] with Dr. 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 Fields Dyslipidemia (Chronic) COPD (chronic obstructive pulmonary disease) (Chronic) Diabetes mellitus type 2 in obese (Chronic) Hospital Course and Treatment Imaging Results: RAD/Chest PA and Lateral IMPRESSION: Findings consistent with interstitial edema and component of pulmonary vascular congestion with mild cardiomegaly concern procedure tip exacerbation in the appropriate clinical setting. Echo: Interpretation Summary The study was technically difficult. Left ventricular systolic function is normal. The estimated ejection fraction is 65 %. Mild concentric left ventricular hypertrophy. D shaped septum in systole and diastole. Mildly dilated right ventricle. Mild global right ventricular systolic dysfunction. The left atrium is moderately enlarged. The right atrium is mildly enlarged. There is mild mitral annular calcification. Moderately severe (3+) eccentric mitral valve insufficiency. Moderate (2+) tricuspid valve insufficiency. Mild diffuse aortic valve thickening. Mild focal aortic valve calcification. Trivial pulmonic valve insufficiency. Calcified aortic root. Right ventricular systolic pressure estimated to be 67 mmHg. Transmitral diastolic flow velocities suggest diastolic dysfunction (pseudonormal pattern). RAD/Chest 1 View (Portable) IMPRESSION: The tip of the dialysis catheter is in the midportion of the superior vena cava. Elevation of the right hemidiaphragm with a mild degree of CHF. Consults: Mariann - nephrology Vince - Cardiology Jhon - pulmonology Corby - [facility] surgery Operations: - - temporary dialysis cath placement Procedures: 2-D Echocardiogram Summary of Care Provided: Hospital Course: The patient is a 72 year old F with extensive past medical history as above, most notable for 2 recent admissions within the past week of this presentation for acute CHF exacerbation, who presented to the emergency room again with increased lower extremity edema and shortness of breath, again found to be in acute on chronic diastolic congestive heart failure. This is complicated by underlying pulmonary hypertension, chronic anemia and valvular heart disease, and increasingly worse chronic kidney disease. She was admitted to the PCU and placed on telemetry. Nephrology, cardiology, pulmonology were all consulted. The patient did not respond well to diuretics. Echocardiogram was obtained which demonstrated EF of 65%, moderately severe 3+ mitral valve insufficiency, moderate 2+ tricuspid valve insufficiency, RVSP of [address] Tavarez placed a temporary dialysis catheter and she underwent dialysis multiple times. She tolerated this well. Weight improved from 256 to 247 lbs while here. Her breathing improved. She plans to continue temporary dialysis and ongoing nephrology care through Dr. Waite. She is going to return home with a daughter in [place], and will continue dialysis in [facility]. She was discharged home in stable condition and will need follow up with nephrology, cardiology, and vascular surgery as directed, pulmonary medicine in 2 weeks, and her PCP in 1-2 weeks. She will continue baseline O2 use and bipap qhs. This patient was seen by Tutu Arevalo PA-C under the supervision of Dr. Mart. [] - Physical Exam General: Alert, Oriented x3, Cooperative HEENT: Atraumatic, PERRLA, EOMI, Normocephalic Neck: Supple, No JVD, Negative Carotid Bruits Lungs: Clear to auscultation, Diminished Cardiovascular: Regular rate, No murmurs Abdomen: Bowel Sounds Present, Soft, Non Tender Extremities: Capillary Refill Less than 3 Seconds, Edema - 1-2 + pitting edema BLE Skin: No rashes, No breakdown Musculoskeletal: No Tenderness to Palpation of Joints or Extremities Neurological: Cranial nerves II-XII grossly intact Psych/Mental Status: Normal Affect, Appropriate, Alert and oriented to time, place, person, mood and affect Vital Signs Temp Pulse Resp BP Pulse Ox 98.1 F 73 18 127/71 H 99 12/06/18 14:55 12/06/18 14:55 12/06/18 14:55 12/06/18 14:55 12/06/18 14:55 Oxygen Flow Rate (L/min) 2 Oxygen Delivery Method Nasal Cannula Weight: 237 lb 3.478 oz Body Mass Index (BMI) 46.9 Finger Stick Blood Glucose 155 Intake and Output for Last 24 Hours 12/04/18 12/05/18 12/06/18 23:59 23:59 23:59 Intake Total 888.47 / 888.47 680 / 800 240 / 240 Output Total 2975 / 2975 400 / 575 175 / 175 Balance -2086.53 / -2086.53 280 / 225 65 / 65 Laboratory Tests Past 24 Hrs 12/06/18 07:47 Sodium 139 Potassium 3.6 Chloride 103 Carbon Dioxide 29.0 Anion Gap 7 BUN 35 H Creatinine 2.23 H Estim Creat Clear Calc 18.30 Est GFR (MDRD) Af Amer 28 L Est GFR (MDRD) Non-Af 23 L BUN/Creatinine Ratio 15.7 Glucose 87 Calcium 8.8 Phosphorus 3.9 Magnesium 2.1 POC Glucose 12/06/18 12/05/18 12/05/18 08:37 20:53 17:17 POC Glucose 94 133 H 134 H Discharge Diet: Renal Diet Discharge Activity: Return to Normal Activity Home Medications: Medications to take at Discharge Amitriptyline HCl [Elavil] 100 mg PO QHS 04/09/13 Aspirin E.C. [Ecotrin] 81 mg PO DAILY 10/25/17 Atorvastatin Calcium 80 mg PO DAILY 10/25/17 Gabapentin [Neurontin] 300 mg PO QHS 10/25/17 Amlodipine Besylate 10 mg PO DAILY 06/01/18 Ferrous Sulfate 325 mg PO 1200,1700 #120 tab 07/09/18 carvedilol 6.25 mg tablet 6.25 mg PO BID #60 tab 07/31/18 isosorbide mononitrate ER 60 mg tablet,extended release 24 hr 60 mg PO DAILY #60 tab 07/31/18 Albuterol Sulfate 1.25 mg IH 4X/DAY 08/20/18 Doxazosin Mesylate 8 mg PO QHS 08/20/18 Hydralazine HCl 200 mg PO DAILY 08/20/18 Omeprazole 40 mg PO DAILY 08/20/18 budesonide-formoterol HFA 160 mcg-4.5 mcg/actuation aerosol inhaler 2 puff INHALATION BID #1 ea 09/25/18 tiotropium 2.5 mcg-olodaterol 2.5 mcg/actuation mist for inhalation 2 puff INHALATION DAILY #4 g 10/28/18 Hydralazine HCl 100 mg PO QHS 11/26/18 Bumetanide [Bumex] 2 mg NG DAILY #30 tab 11/28/18 Glimepiride [Amaryl] 1 mg PO DAILY #30 tab 11/28/18 Metolazone [Zaroxolyn] 5 mg PO DAILY #15 tab 11/28/18 Pantoprazole Sodium [Protonix] 40 mg PO DAILY #14 tab 11/28/18 Acetaminophen [Tylenol Tablet] 650 mg PO Q6H PRN PRN tab 12/06/18 Ascorbic Acid [Vitamin C] 500 mg PO DAILY@0800,1700 tab 12/06/18 Potassium Chloride [K-Dur] 20 meq PO BIDCM tab 12/06/18 Primary Care Physician: Levi Laird MD [Primary Care Provider] - Please follow up with your Primary Care Physician in: 1-2 weeks Please Follow Up With: Levi Laird MD Please Follow Up With: Evert Waite MD When: as directed Please Follow Up With: Chicho Harris NP-C When: as directed Please Follow Up With: Lia Meléndez NP-C When: 2 weeks Please Follow Up With: Eusebia Ramirez PA-C When: As directed Disposition: Home Minutes spent on discharge:: 35 Patient Condition:: Stable Medical Necessity - Tobacco Use Smoking Status: Former smoker Meaningful Use Info Meaningful Use Diagnoses (Choose all that apply): CHF - CHF NICOLAS/ARB ordered at discharge?: No Reason NICOLAS/ARB not ordered?: Worsening renal disease Documented LVEF (%): 65 <LibertyyazminQuinten F - Last Filed: 12/06/18 18:15> Discharge Date and Diagnosis - Secondary Discharge Diagnosis Chronic Problems (Last Reviewed 12/03/18 @ 10:40 by Eusebia Ramirez PA-C) Valvular heart disease (Chronic) Iron deficiency anemia (Chronic) Tricuspid insufficiency (Chronic) Mitral insufficiency (Chronic) ELAINE (obstructive sleep apnea) (Chronic) CKD (chronic kidney disease), stage III (Chronic) Atherosclerotic heart disease of [place] coronary artery without angina pectoris (Chronic) NATHAN to the LAD, and SVG to the diagonal branch, and SVG to the LCx system, and an SVG to the RCA on 04/16/2013 at [facility] with Dr. 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 Fields Dyslipidemia (Chronic) COPD (chronic obstructive pulmonary disease) (Chronic) Diabetes mellitus type 2 in obese (Chronic) Hospital Course and Treatment Summary of Care Provided: The patient is a 72 year old F [] - Physical Exam Vital Signs Temp Pulse Resp BP Pulse Ox 98.1 F 73 18 127/71 H 99 12/06/18 14:55 12/06/18 14:55 12/06/18 14:55 12/06/18 14:55 12/06/18 14:55 Oxygen Flow Rate (L/min) 2 Oxygen Delivery Method Nasal Cannula Weight: 237 lb 3.478 oz Body Mass Index (BMI) 46.9 Finger Stick Blood Glucose 155 Intake and Output for Last 24 Hours 12/04/18 12/05/18 12/06/18 23:59 23:59 23:59 Intake Total 888.47 / 888.47 680 / 800 240 / 240 Output Total 2975 / 2975 400 / 575 175 / 175 Balance -2086.53 / -2086.53 280 / 225 65 / 65 Laboratory Tests Past 24 Hrs 12/06/18 07:47 Sodium 139 Potassium 3.6 Chloride 103 Carbon Dioxide 29.0 Anion Gap 7 BUN 35 H Creatinine 2.23 H Estim Creat Clear Calc 18.30 Est GFR (MDRD) Af Amer 28 L Est GFR (MDRD) Non-Af 23 L BUN/Creatinine Ratio 15.7 Glucose 87 Calcium 8.8 Phosphorus 3.9 Magnesium 2.1 POC Glucose 12/06/18 12/05/18 12/05/18 08:37 20:53 17:17 POC Glucose 94 133 H 134 H Code Visit Addendum: Dr. Chung I personally examined the patient and reviewed the chart. I agree with the above. 72-year-old female presenting for the first third time in as many weeks, with acute on chronic diastolic heart failure with chronic hypoxic respiratory failure secondary to COPD and heart failure and pulmonary hypertension with KURT on CKD. She was started on Bumex drip and is diuresed fairly well however nephrology was consulted to help assist with volume status and she the patient agreed to a temporary dialysis catheter for potentially temporary dialysis. 2 L of fluid removed last night on dialysis and she underwent another dialysis today where 3-1/2 L were removed. In terms of volume status, on admission she was 256 pounds and today on the day of discharge prior to her dialysis she was 237 pounds. She will be continued on her metolazone as well as her p.o. Bumex and she will be discharged home with outpatient dialysis in [place] since she will be moving in with a different daughter. She was breathing much better today and feeling much better, and her temporary catheter site seems to have stopped bleeding. She was discharged on essentially all of her home medications. She did have vitamin C added because she takes iron twice a day but is also on a PPI, it was expanded her that she should take vitamin C at the same time that she takes her iron. Also would recommend that she continue her hydralazine at 100 mg p.o. 3 times daily and she will need follow-up with her primary care physician as well as nephrology, cardiology, pulmonology, and general surgery. Inpatient E&M: 73709 Disch Hosp
[2018-12-06 20:56] LABS: Bedside Glucose 92 mg/dL (70-110)
--- NOTE | 2018-12-09 11:26 | CASEMGMT ---
D/C summary and F2F faxed to [facility] at this time per their insistence on having a F2F form instead of notes at this time. [facility] is made aware again that pt was discharged on sunday12/06/18, voices understanding. Dyan PADILLA CM
--- NOTE | 2018-12-09 15:33 | CASEMGMT ---
RANDY MONTALVO F/U Phone Call LACE: 16 Strata: 4 Discharge date: 12/06/18 Call date: 12/09/18 Call time: [id number] Duration: 4 minutes Admission dx: CHF exacerbation Call to pt's cell phone and phone went to voicemail but voicemail box is full at this time. Call to pt's daughter,Adilene, with whom she is currently living and Adilene answered phone at this time and spoke for pt at this time. Per Adilene, pt is doing 'pretty good' since discharge and states pt was just up for a walk when this RANDY MONTALVO called. Per Adilene, no questions regarding discharge instructions at this time. Adilene does ask about bumex for pt and per d/c instructions, pt is still supposed to be taking the bumex daily and Adilene aware at this time, voices understanding. Adilene states that dialysis called and would like pt to come at 0500 tomorrow instead of 0630. She states that they plan to go at that time but are hoping that it's only for the first visit. Adilene states that pt has f/u appt's scheduled but that two of them are on so she will have to switch them. Adilene also states that she is awaiting a call from [facility] PT at this time to set up start of care. Adilene states no suggestions for [facility] at this time. Adilene voices no further questions/concerns/needs at this time. Adilene thanks this RN KATIA for all the assistance at this time. Dyan PADILLA CM
== END 2018-12-06 17:30 | disposition home or self-care (01) | DRG 291 ==
LOC: ED 17:56 → PCU 18:09
PROVIDERS: Internal Medicine Critical Care Medicine; Internal Medicine Nephrology; Nurse Practitioner Family; Surgery; Admitting Provider Student in an Organized Health Care Education/Training Program; Emergency Provider Emergency Medicine; Family Provider Family Medicine; PCP Family Medicine; Visit Provider Family Medicine
PROC: 0JH63XZ Insertion of Tunneled Vascular Access Device into Chest Subcutaneous Tissue and Fascia, Percutaneous Approach (ICD-10-PCS; principal; 2018-12-03 11:15)
DX: I13.0 Hypertensive heart and chronic kidney disease with heart failure and stage 1 through stage 4 chronic kidney disease, or unspecified chronic kidney disease (principal); I50.33 Acute on chronic diastolic (congestive) heart failure; N17.9 Acute kidney failure, unspecified; J96.11 Chronic respiratory failure with hypoxia; Z68.42 Body mass index [BMI] 45.0-49.9, adult; N18.4 Chronic kidney disease, stage 4 (severe); Z99.81 Dependence on supplemental oxygen; J44.9 Chronic obstructive pulmonary disease, unspecified; Z66 Do not resuscitate; I25.10 Atherosclerotic heart disease of native coronary artery without angina pectoris; E11.22 Type 2 diabetes mellitus with diabetic chronic kidney disease; I27.21 Secondary pulmonary arterial hypertension; G47.33 Obstructive sleep apnea (adult) (pediatric); E66.01 Morbid (severe) obesity due to excess calories; E78.5 Hyperlipidemia, unspecified; R41.0 Disorientation, unspecified; K29.70 Gastritis, unspecified, without bleeding; K21.9 Gastro-esophageal reflux disease without esophagitis; D50.9 Iron deficiency anemia, unspecified; Z95.1 Presence of aortocoronary bypass graft; Z87.891 Personal history of nicotine dependence; I08.1 Rheumatic disorders of both mitral and tricuspid valves
CPT/HCPCS: 36415; 71045; 71046; 77001; 80048; 80053; 81001; 82962; 83690; 83735; 83880; 84100; 84484; 85025; 85027; 85610; 85730; 86704; 86706; 87340; 90937; 92526; 92610; 93005; 93306; 94640; 97116; 97162; 97166; 97530; 97535; 99285; J1756; J7030; J7040; P9612; Q9957; A4216; C1750; G0257; J1940

== ENCOUNTER 2019-03-14 13:10 | Emergency (ER) | payer MEDICARE, MEDICAID, SELFPAY ==
[2019-01-01 11:34] VITALS: BMI 40.9
[2019-03-14] VITALS (7 sets, daily range): BP systolic 147–172; BP diastolic 71–75; PULSE 79–90; RESP 14–28; TEMP 36.6–36.8; O2SAT 94–97; BMI 41.6
--- NOTE | 2019-03-14 14:31 | RAD_ITS ---
STUDY: X-RAY CHEST REASON FOR EXAM: Female, 73 years old. COUGH, FEVER, CONGESTION TECHNIQUE: AP and lateral views of the chest. COMPARISON: Comparison is made with prior study dated December 03, 2018. FINDINGS: EKG electrodes are seen. A right-sided double-lumen catheter is seen with the tip at the junction of the superior vena cava and right atrium. Stable elevation of the right hemidiaphragm. Gastric congestion and mild degree of CHF. There is no demonstrated pleural abnormality. Sternal cerclage wires and vascular clips are present from a prior sternotomy and coronary artery bypass graft procedure (CABG). Mild cardiomegaly. Normal mediastinum and james. Normal visualized pulmonary arteries. There is atherosclerotic calcification of the aortic arch with tortuosity. There is demineralization of the osseous structures. Normal visualized ribs, clavicles, and shoulders. There is no demonstrated abnormality of the visualized soft tissue structures of the upper abdomen. RAD/Chest PA and Lateral IMPRESSION: Cardiomegaly. Mild degree of CHF. Electronically Signed: Peter Bahena, at 15:36 EST , Service support ,
[2019-03-14] MEDS: Ipratropium/Albuterol Sulfate 3 ML AMPUL.NEB INHALATION (14:50)
[2019-03-14] MEDS: MethylPREDNISolone 125 MG/2 ML Vial IV (15:02)
[2019-03-14 15:22] LABS: Absolute Lymphocyte Count 0.43 X10^3/uL (0.83-4.51); Absolute Neutrophil Count 13.8 X10^3/uL (2.0-7.7); Basophil# 0.07 X10^3/uL; Basophil% 0.5 % (0-1); Eosinophil# 0.04 X10^3/uL; Eosinophils% 0.3 % (0-5); Hematocrit 41.4 % (37-47); Hemoglobin 12.2 g/dL (12.0-15.0); Lymphocyte # 0.43 X10^3/ul (4.0); Lymphocyte % 2.8 % (19-41); Mean Corp Hgb Conc 29.5 g/dL (32-36); Mean Corpuscular Hgb 25.8 pg (27.0-32.0); Mean Corpuscular Volume 87.5 fL (81-99); Monocyte# 0.71 X10^3/uL; Monocyte% 4.6 % (0-10); NRBC Flagged by Analyzer 0 % (0-5); Neutrophil # 13.78 X10^3/uL (2.7-7.7); Neutrophil % 89.6 % (47-70); POSITIVE DIFFERENTIAL YES; Platelet Count 262 K/mm3 (150-450); RBC Distribution Width CV 18.8 % (11.6-14.6); RBC Distribution Width SD 60.4 fl (35.1-43.9); Red Blood Count 4.73 M/mm3 (4.2-5.4); White Blood Count 15.4 K/mm3 (4.4-11.0)
[2019-03-14 15:34] LABS: Differential Indicated SCAN CRITERIA MET
[2019-03-14 15:37] LABS: Anion Gap 8 (5-15); BUN 26 mg/dL (7-18); BUN/Creat Ratio 8.6 RATIO (10-20); Chloride 96 mmol/L (98-107); Creatinine, Serum 3.02 mg/dL (0.55-1.02); EST Glomerular Filtration Rate 16 mL/min (>60); Est Glom Filt Rate - Afr Amer 20 mL/min (>60); Estimated Creatinine Clearance 13.93 ml/min; Glucose 195 mg/dL (74-106); Potassium 3.9 mmol/L (3.5-5.1); Sodium Level 133 mmol/L (136-145)
[2019-03-14 15:43] LABS: Lactic Acid 0.6 mmol/L (0.4-1.9)
[2019-03-14 16:09] LABS: Anisocytosis 2+; Platelet Estimate ADEQUATE (ADEQ)
[2019-03-14 16:10] LABS: Hypochromasia 1+
--- NOTE | 2019-03-14 16:14 | ED.DCSUM_ITS ---
- ER Visit Summary Date of Service: 03/14/19 Chief Complaint: Cough History of Present Illness: The patient is a [address] Laird, Dr. Clarke, and Dr. Davis. She has a history of COPD and is on 2 L of home O2. She also is a dialysis patient. She gets dialysis Sunday, , and Sunday. Here for an yesterday. Family reports that she had a cough since December. Is increased yesterday. She had a temperature of 101.8 degrees. Patient has been wheezing. This improves transiently with her nebulizer. She has been on antibiotics for this in the past. Last antibiotics approximate 1 month ago. She was placed on doxycycline and did seem to help at that time. Patient complains of generalized weakness. She denies any other complaints. Physical Examination: Vitals: 97.9, 172/71, 79, 19, 96% on 2 L with nasal cannula which is her home O2.. General: Well-nourished and well-developed. Head: Normocephalic atraumatic. Neck: Supple, no lymphadenopathy. No JVD. Nontender. Cardiovascular: Regular rate and rhythm. 2 out of 6 systolic murmur. Respiratory: No respiratory distress. Mild wheezing bilaterally with greatly decreased air movement. Abdominal: Soft, nontender, nondistended, normal bowel sounds. No guarding, rebound, or peritoneal signs. Back: Nontender. Extremities: Nontender, no edema. Skin: Contusion scattered over upper extremities bilaterally., no rash. Neurologic: Alert and oriented ?3. Cranial nerves II through XII are intact. Normal strength and sensation. Psych: Normal affect. Test Results: CBC shows white count of 15.4 with 97 neutrophils, 3 lymphocytes, and immature granulocytes of 2.2%. Chem-7 shows a sodium 133, chloride 96, BUN 26, creatinine 3.02, glucose 195. Lactic acid is 0.6. Influenza is negative. Clinical Impression(s) from Imaging Studies Chest X-Ray 03/14/19 14:31 IMPRESSION: Cardiomegaly. Mild degree of CHF. Electronically Signed: Peter Bahena, at 15:36 EST , Service support , Emergency Department Course and Treatment: Patient was given albuterol and Atrovent aerosols. She was given Solu-Medrol IV. She is given doxycycline p.o. She is resting comfortably and would like to go home. Treatment Plan: Patient had blood culture sent. She is instructed to follow-up with her primary care physician in 2 days to get the results of these. She will be placed on prednisone and doxycycline at home. Return to the emergency department for any worsening symptoms. Disposition: To home in improved and stable condition. Impression: 1. COPD exacerbation. 2. End-stage renal disease. This note was generated with [employer] dictation software. It may contain incorrect words, spelling, and punctuation that were not noted in review of the chart prior to signing ED Disposition - Plan for ED Patient: Instructions: Copd Flare Prescriptions: Doxycycline 100 mg PO BID #20 cap Prescription Printed Prednisone 10 mg PO DAILY #63 tab Prescription Printed Benzonatate [Tessalon Perle] 200 mg PO TID PRN PRN #20 cap PRN Reason: Cough Prescription Printed Referrals: Levi Laird MD [Primary Care Provider] - 2 Days
[2019-03-14] MEDS: Albuterol 2.5 MG/3 ML VIAL.NEB. INHALATION (16:38)
[2019-03-14] MEDS: Benzonatate 100 MG Capsule 200 MG PO (16:38)
[2019-03-14] MEDS: Doxycycline 100 MG CAPSULE PO (16:38)
== END 2019-03-14 17:52 | disposition home or self-care (01) ==
LOC: ED 14:36
PROVIDERS: Emergency Provider Emergency Medicine; Family Provider Family Medicine; PCP Family Medicine
DX: J44.1 Chronic obstructive pulmonary disease with (acute) exacerbation (principal); I13.2 Hypertensive heart and chronic kidney disease with heart failure and with stage 5 chronic kidney disease, or end stage renal disease; N18.6 End stage renal disease; I50.9 Heart failure, unspecified; Z99.2 Dependence on renal dialysis; I25.10 Atherosclerotic heart disease of native coronary artery without angina pectoris; E78.00 Pure hypercholesterolemia, unspecified; Z99.81 Dependence on supplemental oxygen; Z95.1 Presence of aortocoronary bypass graft; Z79.82 Long term (current) use of aspirin; Z79.899 Other long term (current) drug therapy
CPT/HCPCS: 71046; 80048; 83605; 85025; 87040; 87804; 94640; 94760; 96374; 99285; A4216

== ENCOUNTER 2019-08-27 17:10 | Emergency (ER) | payer MEDICARE, MEDICAID, SELFPAY ==
[2019-07-01 08:07] VITALS: BMI 41.6
[2019-08-27] VITALS (7 sets, daily range): BP systolic 155–188; BP diastolic 71–72; PULSE 86–96; RESP 16–27; TEMP 36.4; O2SAT 89–98; BMI 31.1
--- NOTE | 2019-08-27 17:27 | EKG12_ITS ---
Test Reason : SOB Blood Pressure : / mmHG Vent. Rate : 087 BPM Atrial Rate : 087 BPM P-R Int : 188 ms QRS Dur : 098 ms QT Int : 400 ms P-R-T Axes : 053 045 064 degrees QTc Int : 481 ms Normal sinus rhythm Normal ECG Confirmed by CAROL DOVE, SUSAN ([id number]), rewrite editor JALIL JENSEN ([id number]) on 08/29/2019 10:15:00 AM Referred By: HAILEY Confirmed By:DEANNE MEDINA MD
--- NOTE | 2019-08-27 17:39 | ED.VIS.GEN ---
History of Present Illness Chief Complaint: Shortness of Breath Detail of Chief Complaint: Nonproductive cough, history of COPD dialysis today Informant: Patient, Family Onset: Today, - Sunday as well Context: Sudden Onset Timing: Intermittent Quality: Shortness of breath Location: During dialysis Current Severity: Moderate Maximum Severity: Severe Worsened by: Activity and conversation Relieved by: Nothing Associated Symptoms: Reportedly fluid overloaded per PCP Narrative: Patient is a 73-year-old woman with history of end-stage renal disease on hemodialysis, congestive heart failure, COPD, hypertension, hypercholesterolemia and diabetes who was sent to the emergency room because of dyspnea with conversation. She had a similar episode on Sunday during dialysis. The thought at that time was that too much fluid was taken off. They took according to the daughter too much fluid. She is presently on prednisone for COPD. She does report a dry cough. She denies rhinorrhea, congestion or postnasal drainage. Denies sore throat. Denies change in smell or taste. She is had no exposure to anyone with respiratory symptoms. She denies history of PE or DVT. She does report leg swelling that started Sunday. She denies orthopnea. She states she sleeps with one pillow. She denies PND. She denies chest discomfort or anginal equivalent symptoms during dialysis other than dyspnea. She denies nausea, vomiting or diarrhea. She does not make urine. 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 Fields (5) COPD (chronic obstructive pulmonary disease) Status: Chronic (6) Diabetes mellitus type 2 in obese Status: Chronic (7) Dyslipidemia Status: Chronic (8) Essential hypertension Status: Chronic (9) Iron deficiency anemia Status: Chronic (10) ELAINE (obstructive sleep apnea) Status: Chronic (11) Pulmonary hypertension Status: Chronic (12) Gastritis Status: Suspected Past Medical History - Allergies and Home Meds Allergies/Adverse Reactions: Allergies Penicillins Allergy (Verified 08/27/19 17:14) Hives adhesive tape Adverse Reaction (Verified 08/27/19 17:14) Other Primary Care Physician: Levi Laird MD [Primary Care Provider] - Prior records reviewed: Yes Surgical History: appendectomy, cholecystectomy, - - CABG x4, cholecystectomy, appendectomy, left lower extremity vein stripping, tonsillectomy. Lives: With Family Smoking Status: Former smoker Alcohol: None Drugs: None - Family History Paternal Family History: Family History (Last Reviewed 07/01/19 @ 12:38 by TREVOR Hou) Mother Heart disease Family History: Reports: - - Patient notes a paternal family history of chronic COPD with tobacco use, heart disease and diabetes. Maternal Family History: Family History (Last Reviewed 07/01/19 @ 12:38 by TREVOR Hou) Mother Heart disease Family History: Reports: - - Patient notes a maternal family history of heart disease and diabetes. Review of Systems General: Denies: Chills, Fever, Malaise, Sweats Eyes: Denies: Visual changes - bilaterally, Blurred Vision - bilaterally ENT: Denies: Bilateral ear pain, Rhinorrhea, Sore throat Cardiovascular: Denies: Chest pain, Palpitations, Heart racing Respiratory: Reports: Dyspnea, Cough, Dyspnea on exertion. Denies: Sputum, Orthopnea, Paroxysmal nocturnal dyspnea Gastrointestinal: Denies: Abdominal pain, Nausea, Vomiting, Diarrhea, Melena, Hematochezia Genitourinary: Reports: - - Reports she does not make urine.. Denies: Dysuria, Hematuria, Frequency Musculoskeletal: Reports: Swelling. Denies: Myalgias, Arthralgias, Neck pain, Back pain, Extremity Pain, -, - Skin: Denies: Rash, Wounds Neurological: Denies: Headache, Weakness, Parasthesia Psych: Reports: Depression Hematologic: Reports: Easy bruising. Denies: Easy bleeding Allergy: Denies: Uticaria Physical Exam Vital Signs/Narrative: Vital Signs Temp Pulse Resp BP Pulse Ox 08/27/19 17:34 96 08/27/19 17:11 97.6 F L 86 24 H 155/72 H 98 Inital Vital Signs reviewed: Yes General: Well nourished, Well developed, Cachectic, Acute Distress Head: Normocephalic, Atraumatic Eyes: Perrl, EOMI. Negative for: Pale conjunctiva, Scleral icterus ENT: No rhinorrhea, TM's clear. Negative for: Nasal congestion, Sinus tenderness Neck: Supple, Nontender, No lymphadenopathy. Negative for: No JVD Cardiovascular: Regular rate, Regular rhythm, No murmurs Respiratory: Chest nontender, Wheezing, Diminished, Decreased Air Movement. Negative for: No distress, CTA bilaterally Abdomen: Soft, Nontender, Nondistended, Normal bowel sounds, No masses. Negative for: Hepatomegaly, Splenomegaly, Pulsatile mass Rectal: Deferred Back: Nontender, Normal Inspection. Negative for: CVA tenderness, Spinal tenderness Extremities: Nontender, Edema - Pitting edema 2 to 4 mm. Skin: Normal color, No rash, No Trauma. Negative for: Cyanosis, Diaphoresis, Jaundice Neurological: Alert, Oriented x3, Cranial nerves II-XII grossly intact, Normal Strength, Normal Sensation Psychological: Depressed Diagnostic/Tx/Re-eval Chest X-Ray - ED: 2 View, Read by ED Physician, Cardiomegaly, Right Effusion, Left Effusion, - - Crease interstitial markings consider with fluid overload state. Patient did have dialysis and x-ray may not resolve as quickly. 08/27/19 18:50 Chest PA and Lateral [RAD] Stat Laboratory Results 08/27/19 08/27/19 08/27/19 17:45 17:45 17:45 WBC 9.4 RBC 3.36 L Hgb 9.7 L Hct 31.3 L MCV 93.2 MCH 28.9 MCHC 31.0 L RDW Std Deviation 59.7 H RDW Coeff of Becca 17.9 H Plt Count 345 MPV 9.8 Immature Gran % (Auto) 1.000 H Neut % (Auto) 77.9 H Lymph % (Auto) 12.7 L Coles % (Auto) 6.3 Eos % (Auto) 1.7 Baso % (Auto) 0.4 Absolute Neuts (auto) 7.3 Absolute Lymphs (auto) 1.19 Nucleated RBC % 0 Sodium 135 L Potassium 3.9 Chloride 96 L Carbon Dioxide 33.0 H Anion Gap 6 BUN 7 Creatinine 1.24 H Estim Creat Clear Calc 32.43 Est GFR (MDRD) Af Amer 55 L Est GFR (MDRD) Non-Af 45 L BUN/Creatinine Ratio 5.6 L Glucose 103 Calcium 9.3 Troponin I < 0.015 B-Natriuretic Peptide 566.2 H The BEDSPREAD CUTTER is elevated which is nonspecific. Troponin is normal and there is no ischemic EKG changes. BUN/creatinine are unremarkable. Patient states she does make urine. Will discharge with prescription for Lasix and prednisone. Patient no longer has conversational dyspnea. Her wheezing has resolved with treatment initiated in the emergency department. - Medical Decision Making Differential diagnosis includes COPD, pneumonia, pneumothorax and chest x-ray obtained to confirm heart failure. Appropriate blood work was obtained. EKG was obtained to assess for ischemia as well as troponin. He was treated with DuoNeb, albuterol and Solu-Medrol. Suspect this is exacerbation of COPD. Suspect the pedal edema is either dependent pedal edema or right heart failure due to obstructive sleep apnea. Since wheezing resolved suspect this is due to COPD. The chest x-ray does lag. Fluid overload state. Because she does make urine she was prescribed Lasix and instructed follow-up with Dr. Pope. She was prescribed 5-day burst of prednisone. ED Disposition - Plan for ED Patient: Disposition: Home or Assisted Living Diagnosis: Asthma exacerbation in COPD, Pleural effusion due to CHF (congestive heart failure) Instructions: ED CHF General, ED COPD Flare Prescriptions: Prednisone [Deltasone] 40 mg PO DAILY #10 tab Transmission Status: Pending to [id number] Furosemide [Lasix] 40 mg PO DAILY #30 tab Transmission Status: Pending to [id number] Referrals: Levi Laird MD [Primary Care Provider] - Alex Clarke MD [STAFF PHYSICIAN] - 3-5 Days
[2019-08-27] MEDS: MethylPREDNISolone 125 MG/2 ML Vial 60 MG IV (17:45)
[2019-08-27] MEDS: Ipratropium/Albuterol Sulfate 3 ML AMPUL.NEB INHALATION (17:54)
[2019-08-27] MEDS: Albuterol 2.5 MG/3 ML VIAL.NEB. INHALATION ×3 (17:54→18:13)
[2019-08-27 18:11] LABS: Absolute Lymphocyte Count 1.19 X10^3/uL (0.83-4.51); Absolute Neutrophil Count 7.3 X10^3/uL (2.0-7.7); Basophil# 0.04 X10^3/uL; Basophil% 0.4 % (0-1); Eosinophil# 0.16 X10^3/uL; Eosinophils% 1.7 % (0-5); Hematocrit 31.3 % (37-47); Hemoglobin 9.7 g/dL (12.0-15.0); Lymphocyte # 1.19 X10^3/ul (4.0); Lymphocyte % 12.7 % (19-41); Mean Corpuscular Hgb 28.9 pg (27.0-32.0); Mean Corpuscular Volume 93.2 fL (81-99); Mean Platelet Vol. 9.8 fl (6.2-12.0); Monocyte# 0.59 X10^3/uL; Monocyte% 6.3 % (0-10); NRBC Flagged by Analyzer 0 % (0-5); Neutrophil # 7.29 X10^3/uL (2.7-7.7); Neutrophil % 77.9 % (47-70); Platelet Count 345 K/mm3 (150-450); RBC Distribution Width CV 17.9 % (11.6-14.6); RBC Distribution Width SD 59.7 fl (35.1-43.9); Red Blood Count 3.36 M/mm3 (4.2-5.4); White Blood Count 9.4 K/mm3 (4.4-11.0)
[2019-08-27 18:24] LABS: Anion Gap 6 (5-15); BUN 7 mg/dL (7-18); BUN/Creat Ratio 5.6 RATIO (10-20); Calcium,Total 9.3 mg/dL (8.5-10.1); Chloride 96 mmol/L (98-107); Creatinine, Serum 1.24 mg/dL (0.55-1.02); EST Glomerular Filtration Rate 45 mL/min (>60); Est Glom Filt Rate - Afr Amer 55 mL/min (>60); Estimated Creatinine Clearance 32.43 ml/min; Glucose 103 mg/dL (74-106); Potassium 3.9 mmol/L (3.5-5.1); Sodium Level 135 mmol/L (136-145)
[2019-08-27 18:33] LABS: BNP,B-Type NATRIURETIC PEPTIDE 566.2 pg/mL (0-100)
--- NOTE | 2019-08-27 18:50 | RAD_ITS ---
STUDY: X-RAY CHEST REASON FOR EXAM: Female, 73 years old. SOB, HX CHF. STATES TOO MUCH FLUID TAKEN OFF DURING LAST DIALYSIS, HAS HAD SOB SINCE TODAY''S DIALYSIS TECHNIQUE: PA and lateral views of the chest. COMPARISON: Upright AP and lateral chest x-ray March 14, 2019. FINDINGS: Tunneled right chest wall hemodialysis catheter again noted. Elevation of the right diaphragm on prior study has resolved. There is improved aeration at the right base, but some interstitial/vascular prominence as well as Douglas B lines persist, suggesting regional congestive changes. Stable borderline stranding densities that could be additional crowding or congestive change in the left base. Trace pleural reaction blunts the lateral left costophrenic sulcus. There is borderline cardiomegaly. Sternal cerclage wires and vascular clips are present from a prior sternotomy and coronary artery bypass graft procedure (CABG). Normal mediastinum and james. Normal visualized upper lobe pulmonary vascular markings. There is stable atherosclerotic calcification of the aortic arch and descending thoracoabdominal aorta. Normal visualized thoracic spine. Normal visualized ribs, clavicles, and shoulders. There is no demonstrated abnormality of the visualized soft tissue structures of the upper abdomen. RAD/Chest PA and Lateral IMPRESSION: 1. Prior median sternotomy and CABG. The heart is borderline enlarged. 2. Improved aeration at the right base with the right diaphragm now in expected position. There are findings of pulmonary venous congestive change versus volume loss with crowding in the bilateral lung bases. Trace left pleural reaction also noted. Electronically Signed: Tonio River MD at 19:25 EDT , Service support ,
== END 2019-08-27 19:35 | disposition home or self-care (01) ==
PROVIDERS: Emergency Provider Emergency Medicine; PCP Family Medicine
DX: J44.1 Chronic obstructive pulmonary disease with (acute) exacerbation (principal); J90 Pleural effusion, not elsewhere classified; E11.22 Type 2 diabetes mellitus with diabetic chronic kidney disease; I13.2 Hypertensive heart and chronic kidney disease with heart failure and with stage 5 chronic kidney disease, or end stage renal disease; I50.9 Heart failure, unspecified; N18.6 End stage renal disease; Z99.2 Dependence on renal dialysis; E11.69 Type 2 diabetes mellitus with other specified complication; E66.9 Obesity, unspecified; E78.00 Pure hypercholesterolemia, unspecified; G47.33 Obstructive sleep apnea (adult) (pediatric); I27.20 Pulmonary hypertension, unspecified; I25.10 Atherosclerotic heart disease of native coronary artery without angina pectoris; Z86.2 Personal history of diseases of the blood and blood-forming organs and certain disorders involving the immune mechanism; Z95.1 Presence of aortocoronary bypass graft; Z79.4 Long term (current) use of insulin; Z79.82 Long term (current) use of aspirin; Z79.899 Other long term (current) drug therapy; Z87.891 Personal history of nicotine dependence
CPT/HCPCS: 71046; 80048; 83880; 84484; 85025; 93005; 94640; 96374; 99251; 99284; A4216; G0463

== ENCOUNTER → 2020-05-04 12:16 | Outpatient (CLI) | payer MEDICARE, MEDICAID, SELFPAY ==
[2019-10-30 06:10] VITALS: BMI 32.5
[2020-05-04 12:30] VITALS: PULSE 80; PULSE 84; PULSE 85; PULSE 87; PULSE 93; O2SAT 88; O2SAT 91; O2SAT 93; O2SAT 94; O2SAT 95; O2SAT 97
--- NOTE | 2020-05-04 14:35 | CPS ---
Patient arrived on 1.5L pulse dose. Patient's RA pulse ox was 94% resting. Patient's pulse ox dropped to 88% at 5 min darren. 1.5L pulse dose added. Vida ENGEL
--- NOTE | 2020-05-04 15:57 | WT_ITS ---
PSN 6 Minute Walk Test - 6 Minute Walk Test 6 Minute Walk Test: 6 Minute Walk Test PSN:6-Minute Walk Test Start: 05/04/20 14:32 Freq: Status: Active Protocol: [id number] Document 05/04/20 12:30 JLA (Rec: 05/04/20 14:41 JLA [id number]) 6 Minute Walk Test Date Performed 05/04/20 Time Performed 12:30 Height 5 ft 2 in Weight: 68.039 kg Weight in Pounds 150.[address]: Lia Meléndez CLINICAL MICROBIOLOGIST Assistive device used: None Pre-test Oxygen Delivery Method Room Air Pulse Ox (%) 94 Pulse Rate (60-100 beats/min) 80 Dyspnea Nazanin Scale (0-10) 4 Exertion Nazanin Scale (6-20) 6 1st minute Oxygen Delivery Method Room Air Pulse Ox (%) 97 Pulse Rate (60-100 beats/min) 93 2nd minute Oxygen Delivery Method Room Air Pulse Ox (%) 93 Pulse Rate (60-100 beats/min) 85 3rd minute Oxygen Delivery Method Room Air Pulse Ox (%) 93 Pulse Rate (60-100 beats/min) 85 4th minute Oxygen Delivery Method Room Air Pulse Ox (%) 91 Pulse Rate (60-100 beats/min) 85 5th minute Oxygen Delivery Method Room Air Pulse Ox (%) 88 Pulse Rate (60-100 beats/min) 87 Dyspnea Nazanin Scale (0-10) 6 Exertion Nazanin Scale (6-20) 13 6th minute Oxygen Flow Rate (L/min) (L/min) 1.5 Oxygen Delivery Method Nasal Cannula Pulse Ox (%) 95 Pulse Rate (60-100 beats/min) 85 Dyspnea Nazanin Scale (0-10) 6 Exertion Nazanin Scale (6-20) 13 Post-test Oxygen Flow Rate (L/min) (L/min) 1.5 Oxygen Delivery Method Nasal Cannula Pulse Ox (%) 94 Pulse Rate (60-100 beats/min) 84 Full Laps Walked 5 Partial Lap, Number of Tiles Walked 30 Total Distance Walked (ft) 325 05/04/20 14:35 Cardiopulmonary Services by Stefanie Brown Patient arrived on 1.5L pulse dose. Patient's RA pulse ox was 94% resting. Patient's pulse ox dropped to 88% at 5 min darren. 1.5L pulse dose added. Vida PUBLIC SERVICE ADMINISTRATOR Initialized on 05/04/20 14:35 - END OF NOTE - Interpretation Interpretation: The patient was noted to be 94% on room air. The patient did desaturate to 88% in the fifth minute was placed on 1.5 pulse dose oxygen with improvement in saturations. In total, the patient traveled 325 feet over the course of 6 minutes with no significant tachycardia. These findings are consistent with a respiratory limitation exercise tolerance. - Recommendations Recommendations: No supplemental oxygen is required at rest, but patient should be using 1.5 pulse dose oxygen with exertion.
== END ==
PROVIDERS: PCP Family Medicine; Visit Provider Nurse Practitioner Acute Care
DX: J44.9 Chronic obstructive pulmonary disease, unspecified (principal)
CPT/HCPCS: 94618

== ENCOUNTER → 2020-06-03 08:24 | Outpatient (CLI) | payer MEDICARE, MEDICAID, SELFPAY ==
--- NOTE | 2020-06-03 12:52 | PFTCOMP_ITS ---
COMPLETE PULMONARY FUNCTION TEST INTERPRETATION Brief HPI: Patient is a 74 year old female, currently under the care of Lia Meléndez, who presents to [facility] for complete pulmonary function tests secondary to diagnosis of COPD. Respiratory therapist reports good effort and reproducible results. Interpretation: Forced expiration spirometry shows no large airways obstructive ventilatory defect with an FEV1 of 80% predicted. There is a significant bronchodilator response in FVC by strict ATS criteria. Spirograms are of good quality and plateau slowly, indicating slowly emptying areas of the lungs. The respiratory flow volume loop shows decreased expiratory flow rates at high lung volumes consistent with small airways obstruction. Lung volumes by body plethysmography show a normal total lung capacity at 4.46 L, 102% predicted. FRC and RV are elevated out of proportion. Lung volume measurements are consistent with air-trapping. Diffusion capacity by carbon monoxide is decreased at 54% predicted. The airway resistance is elevated. Compared to previous pulmonary function tests from 10/01/2018, there is been a significant improvement in total lung capacity by 52%. Impression: Isolated reduction in diffusion capacity with some stigmata of small airways disease. There is been a significant improvement in lung capacity compared to previous testing.
== END ==
PROVIDERS: PCP Family Medicine; Visit Provider Nurse Practitioner Acute Care
DX: J44.9 Chronic obstructive pulmonary disease, unspecified (principal)
CPT/HCPCS: 94060; 94726; 94729

== ENCOUNTER → 2020-08-05 07:40 | Outpatient (CLI) | payer MEDICARE, MEDICAID, SELFPAY ==
[2020-06-03 09:58] VITALS: BMI 28.1
[2020-08-05 07:54] VITALS: BP 146/49; PULSE 75; RESP 18; TEMP 37; O2SAT 100; BMI 28.3
[2020-08-05] MEDS: 0.9% NaCl Peripheral Flush Adult/Peds IV (08:06)
[2020-08-05 08:45] VITALS: BP 156/51; PULSE 75; RESP 18; TEMP 36.8; O2SAT 98
[2020-08-05 09:55] VITALS: BP 160/58; PULSE 77; RESP 16; TEMP 36.8; O2SAT 94
[2020-08-05 11:10] VITALS: BP 153/55; PULSE 76; RESP 18; TEMP 36.5; O2SAT 97
== END ==
PROVIDERS: PCP Family Medicine
DX: N18.6 End stage renal disease (principal); D63.1 Anemia in chronic kidney disease
CPT/HCPCS: 36415; 36430; 86850; 86900; 86901; 86920; 86922; J7040; J7050; P9016; A4216

== ENCOUNTER → 2020-09-28 07:08 | Outpatient (CLI) | payer MEDICARE, MEDICAID, SELFPAY ==
[2020-09-14 07:55] VITALS: BMI 27.4
[2020-09-28 07:45] LABS: CREATININE FINGERSTICK 1.5 mg/dL (0.55-1.02)
--- NOTE | 2020-09-28 08:10 | CT_ITS ---
STUDY: LOW DOSE CT LUNG CANCER SCREENING REASON FOR EXAM: Female, 74 years old. Smoker and gt; 40 pack years quit 2010 RADIATION DOSAGE (If Supplied By Facility): CTDIvol = ( 1.59 ) mGy, DLP = ( 51.62 ) mGycm TECHNIQUE: No contrast was administered. Low dose technique was utilized (average mAS-38 and kVp 120). 1.25 mm axial source images with a slice interval of 1.25-mm were reconstructed in lung windows. 2.5 mm axial source images with a slice interval of 2.5-mm were reconstructed in lung windows. 5.0 mm axial source images with a slice interval of 5.0-mm were reconstructed in soft tissue windows. Nodule measured using lung windows on PACS and/or independent workstation with automated measurement of minimum and maximum diameter. Nodule measurement reported as average diameter rounded to the nearest whole number. Growth is defined as an increase ins size of greater than 1.5 mm. COMPARISON: None. A tunneled right-sided hemodialysis catheter is seen with the tip in the superior vena cava. NODULES: No suspicious nodules are seen. Emphysema: Mild degree of emphysematous changes slightly more prominent in the upper lobes. Mild thickening of the left major fissure. Minimal increased markings are seen in the anterior aspect of the right lower lobe. Endobronchial lesion: None Aorta: Atherosclerotic calcification. Coronary arteries: Coronary artery calcification. Heart: Prior CABG. Cardiomegaly. Pulmonary artery: Mediastinal nodes: Other chest and abdominal findings: Small amount of perihepatic and perisplenic fluid. CT/Low Dose CT Lung Screening IMPRESSION: Lung-RADS category 2 - Continue annual screening with LDCT in 12 months. IMPORTANT NOTES FOR USE: ACR Lung-RADS Version 1.1 Assessment Categories Release Date: 2018 Category: Coded 0-4 bases on nodule(s) with highest degree of suspicion. Negative screen is defined as categories 1 and 2; a positive screen is defined as categories 3 and 4. Category 3 and 4A nodules that are unchanged on interval CT should be coded as category 2, and individuals returned to screening in 12 months. Category 4X: Category 3 or 4 nodules with additional imaging findings that increase the suspicion of lung cancer, such as spiculation, GGN that doubles in size in 1 year, enlarged lymph notes, etc. Category Modifiers: S (significant finding unrelated to lung cancer) Electronically Signed: Peter Bahena MD at 9:39 EDT , Service support ,
== END ==
PROVIDERS: PCP Family Medicine; Referring Provider Otolaryngology; Visit Provider Otolaryngology
DX: F17.210 Nicotine dependence, cigarettes, uncomplicated (principal)
CPT/HCPCS: 71271

== ENCOUNTER → 2020-10-14 13:00 | Outpatient (CLI) | payer MEDICARE, MEDICAID, SELFPAY ==
[2020-09-30 15:18] VITALS: BMI 29.1
[2020-10-12 07:54] VITALS: BMI 29.1
--- NOTE | 2020-10-14 13:34 | ECHOD_ITS ---
Reason For Study: MURMUR Procedure This was a 2D Doppler, Color Flow transthoracic echocardiogram. The exam was of adequate technical quality. Exam performed in department. Left Ventricle Normal LV size. Mild concentric left ventricular hypertrophy. D shaped septum in systole and diastole. Left ventricular systolic function is normal. The estimated ejection fraction is 60 %. There is evidence of diastolic dysfunction. No regional wall motion abnormalities noted. Right Ventricle Normal RV size. Mild global right ventricular systolic dysfunction. Atria The left atrium is mildly enlarged. Normal right atrium. No doppler evidence for ASD. Mitral Valve There is mild mitral annular calcification. Mild diffuse mitral valve thickening. Mild-Moderate mitral valve stenosis. Moderate (2+) mitral valve insufficiency. Tricuspid Valve Normal tricuspid valve. Moderate (2+) tricuspid valve insufficiency. Right ventricular systolic pressure estimated to be 64 mmHg. Aortic Valve Trisinus/trileaflet aortic valve. Mild diffuse aortic valve thickening. Moderate focal aortic valve calcification. Mild aortic stenosis. Trivial aortic valve insufficiency. Pulmonic Valve Normal pulmonic valve. Mild (1+) pulmonic valve insufficiency. Great Vessels Normal sized aortic root. Calcified aortic root. Pericardium/Pleural No pericardial effusion. MMode/2D Measurements & Calculations LVIDd: 5.4 cm IVSd: 1.3 cm LVOT diam: 2.0 cm LVIDs: 3.7 cm LVPWd: 1.2 cm LVOT area: 3.0 cm2 RVDd: 4.5 cm FS: 32.4 % Ao root diam: 3.0 cm LAV(MOD-bp): 88.7 ml Aortic Valve Planimetry: 1.4 cm2 LAV(MOD-bp) Indexed: 51.2 ml/m2 LAV(MOD-sp2): 73.7 ml LAV(MOD-sp4): 93.4 ml LA dimension(2D): 4.7 cm LA A4 area: 27.4 cm2 RA A4 area: 18.1 cm2 Doppler Measurements & Calculations Lat Peak E' Enmanuel: 6.5 cm/sec Med Peak E' Enmanuel: 7.4 cm/sec MV V2 max: 177.5 cm/sec MV max P.6 mmHg MV V2 mean: 120.6 cm/sec MV mean P.2 mmHg MV V2 VTI: 40.9 cm MVA(VTI): 1.7 cm2 Ao V2 max: 251.8 cm/sec LV V1 max: 104.4 cm/sec SV(LVOT): 70.0 ml Ao max P.4 mmHg LV V1 max P.4 mmHg Ao V2 mean: 175.9 cm/sec LV V1 mean P.3 mmHg Ao mean P.7 mmHg LV V1 mean: 71.3 cm/sec Ao V2 VTI: 51.3 cm LV V1 VTI: 23.1 cm LIVE(I,D): 1.4 cm2 LIVE(V,D): 1.3 cm2 PA V2 max: 177.9 cm/sec PI end-d enmanuel: 180.0 cm/sec TR max enmanuel: 389.4 cm/sec TR max P.8 mmHg MV P1/2t-pr_phl: 81.6 msec ECHO/Echo Complete Interpretation Summary Left ventricular systolic function is normal. The estimated ejection fraction is 60 %. Mild concentric left ventricular hypertrophy. D shaped septum in systole and diastole. Mild global right ventricular systolic dysfunction. The left atrium is mildly enlarged. There is mild mitral annular calcification. Mild diffuse mitral valve thickening. Mild-Moderate mitral valve stenosis. Moderate (2+) mitral valve insufficiency. Moderate (2+) tricuspid valve insufficiency. Mild aortic stenosis. Trivial aortic valve insufficiency. Mild (1+) pulmonic valve insufficiency. Calcified aortic root. Right ventricular systolic pressure estimated to be 64 mmHg. There is evidence of diastolic dysfunction. Comment: Echo lucency potentially compatible with ascites. Ordering Physician: Alex Clarke Referring Physician: RACHAEL CHIU Performed By: Roro Rivas, RDCS, RVT
== END ==
PROVIDERS: PCP Family Medicine; Referring Provider Nurse Practitioner Acute Care; Visit Provider Nurse Practitioner Acute Care
DX: I25.10 Atherosclerotic heart disease of native coronary artery without angina pectoris (principal); I38 Endocarditis, valve unspecified; I10 Essential (primary) hypertension; Z95.1 Presence of aortocoronary bypass graft; E78.5 Hyperlipidemia, unspecified; G47.33 Obstructive sleep apnea (adult) (pediatric)
CPT/HCPCS: 93306; 98960; G0463

== ENCOUNTER 2021-03-09 18:30 | Inpatient (IN) | payer MEDICARE, MEDICAID, SELFPAY ==
[2021-03-09 18:31] VITALS: BP 172/51; PULSE 73; RESP 20; TEMP 35.8; O2SAT 100; BMI 27.4
--- NOTE | 2021-03-09 20:40 | EKG12_ITS ---
Test Reason : DYSRHYTHMIA Blood Pressure : / mmHG Vent. Rate : 076 BPM Atrial Rate : 076 BPM P-R Int : 162 ms QRS Dur : 124 ms QT Int : 470 ms P-R-T Axes : 032 042 065 degrees QTc Int : 528 ms Sinus rhythm with Premature atrial complexes Left ventricular hypertrophy with QRS widening Abnormal ECG Confirmed by ELLEN DOVE, MARKUS ([id number]), editor map JALIL JENSEN ([id number]) on 03/10/2021 10:56:26 AM Referred By: SKYLAR Confirmed By:MARKUS HUGHES MD
--- NOTE | 2021-03-09 20:40 | EX.ED.DYSGE1 ---
HPI History of Present Illness Chief Complaint: Weakness Informant: patient and family Onset/Context/Timing Onset: Today Timing: Continuous Maximum Severity: Mild Narrative Narrative: 75-year-old female history of end-stage renal disease dialysis. Patient also has a history of CHF, CAD, diabetes and hypertension. Has been getting dialysis for about 3 years. She has dialysis 3 times a week on Sunday. She had a full run on Sunday today. She also has restless leg syndrome and was given gabapentin today. She just felt very tired since that time. Denies any nausea, vomiting or diarrhea. No fever or chills. No chest pain, shortness of breath nor cough. She denies any dysuria. Prior similar symptoms: Yes Recent Illness/Hospitalization: No PFSH PFSH Medical History (HFpEF) heart failure with preserved ejection fraction Atherosclerotic heart disease of [place] coronary artery without angina pectoris CAD (coronary artery disease) Chronic diastolic heart failure COPD (chronic obstructive pulmonary disease) Diabetes mellitus type 2 in obese Dyslipidemia Essential hypertension Morbid obesity with BMI of 40.0-44.9, adult Non-rheumatic mitral regurgitation Non-rheumatic tricuspid valve insufficiency Pulmonary hypertension Home Medications amitriptyline 100 mg PO QHS 04/09/13 [History Last Taken 11/25/18] aspirin 81 mg PO DAILY 10/25/17 [History Last Taken 11/26/18] atorvastatin 80 mg PO DAILY 10/25/17 [History Last Taken 11/25/18] amlodipine 10 mg PO DAILY 06/01/18 [History Last Taken 11/25/18] doxazosin 8 mg PO QHS 08/20/18 [History Last Taken 11/25/18] omeprazole 40 mg PO DAILY 08/20/18 [History Last Taken 11/26/18] acetaminophen 650 mg PO Q6H PRN PRN tab 12/06/18 [Rx Last Taken Unknown] ascorbic acid (vitamin C) 500 mg PO DAILY@0800,1700 tab 12/06/18 [Rx Last Taken Unknown] gabapentin 100 mg capsule 300 mg PO QHS cap 01/01/19 [History Last Taken Unknown] hydralazine 100 mg tablet 100 mg PO TID tab 01/01/19 [History Last Taken Unknown] benzonatate 200 mg PO TID PRN PRN #20 cap 03/14/19 [Rx Last Taken Unknown] bumetanide 2 mg PO DAILY 03/14/19 [History Last Taken Unknown] carvedilol 6.25 mg PO BID 03/14/19 [History Last Taken Unknown] ferrous sulfate 325 mg PO TUTHSA 03/14/19 [History Last Taken Unknown] guaifenesin 600 mg PO BID 03/14/19 [History Last Taken Unknown] nitroglycerin 0.4 mg SL Q5M PRN 03/14/19 [History Last Taken Unknown] furosemide 40 mg PO DAILY #30 tab 08/27/19 [Rx Last Taken Unknown] albuterol sulfate 1.25 mg/3 mL solution for nebulization 1.25 mg INHALATION 4X/DAY #360 ml 08/17/20 [Rx Last Taken Unknown] budesonide-formoterol HFA 160 mcg-4.5 mcg/actuation aerosol inhaler 2 puff INHALATION BID #1 ea 09/14/20 [Rx Last Taken Unknown] albuterol sulfate 90 mcg/actuation aerosol inhaler 2 puff INHALATION Q6H PRN 09/30/20 [History Last Taken Unknown] metolazone 5 mg tablet 5 mg PO DAILY PRN tab 09/30/20 [History Last Taken Unknown] prednisone 2.5 mg tablet 2.5 mg PO DAILY tab 09/30/20 [History Last Taken Unknown] isosorbide mononitrate 60 mg tablet,extended release 24 hr 60 mg PO DAILY #90 tab 11/09/20 [Rx Last Taken Unknown] Allergy/AdvReac Type Severity Reaction Status Date / Time Penicillins Allergy Hives Verified 12/23/20 09:27 adhesive tape AdvReac Other Verified 12/23/20 09:27 Family History Mother Heart disease Surgical History H/O four vessel coronary artery bypass graft (~04/16/13) Social History Smoking Status: Former smoker quit date: 03/05/10 ROS ROS ED ROS Narrative Fatigue. Review of Systems ROS Unobtainable: Denies due to encephalopathy Constitutional Constitutional ED: Denies chills or fever(s) Eyes Eyes: Denies change in vision ENT ENT ED: Denies ear pain or sore throat Cardiovascular Cardiovascular: Denies chest pain Respiratory/Chest Respiratory/Chest: Denies cough or dyspnea Gastrointestinal Gastrointestinal: Denies abdominal pain, diarrhea, nausea or vomiting Genitourinary Genitourinary ED: Denies dysuria or hematuria Musculoskeletal Musculoskeletal: Denies myalgias Integumentary Denies rash Neurologic Neurologic: Denies headache(s) Psychiatric Psychiatric: Denies depression Endocrine Endocrinology: Denies polyuria Allergic/Immunologic Allergic/Immunologic ED: Denies urticaria EXAM Physical Exam Narrative Exam Narrative: 75-year-old female no acute distress. Vital signs stable afebrile pulse ox 100% on room air no hypoxia. HEENT exam unremarkable. Neck nontender. Lungs clear to auscultation bilaterally. Heart rate about 70. 4/6 systolic ejection murmur with a history of a murmur. Chest wall nontender right Vas-Cath. No redness. Abdomen soft nontender normal bowel sounds no peritoneal signs. Moving all 4 extremities. Nontender no edema. Equal strength symmetrical neurodiagnostic technologist strength and dorsi and plantar flexion. Back nontender. Neurologically she is awake and alert with no focal motor deficits. Const Vital Signs: 03/09/21 18:31 03/09/21 21:02 03/09/21 21:13 Temperature 96.5 F L Temperature Source Temporal Pulse Rate 73 75 Respiratory Rate 20 H Respiratory Effort Normal Non-Labored Respiratory Pattern Normal Blood Pressure 172/51 H 181/65 H Blood Pressure Mean 91 103 Pulse Ox 100 100 Oxygen Delivery Method Room Air Nasal Cannula Oxygen Flow Rate (L/min) 2 Positive well nourished and well developed; Negative for cachectic, contractures or unkempt General Appearance ED: well developed and NAD; Negative for unkempt, cachectic, contractures, cyanotic or diaphoretic Nutritional Appearance: Negative for cachectic HEENT Reports moist mucous membranes Negative for trauma or tenderness Eyes PERRL and EOMs intact bilaterally Neck no lymphadenopathy, supple and no JVD General: Negative for tenderness Chest Wall inspection of chest normal and palpation of chest normal Resp normal respiratory effort and clear to auscultation bilaterally Effort and Inspection: Negative for pain with movement Auscultation: Negative for rales, rhonchi or wheezes Cardio regular rate and regular rhythm; Negative for no murmurs Rate: other Other Details: 4 over 6 systolic ejection murmur. GI normal to inspection, nondistended, normoactive bowel sounds, non-tender, non-distended and no masses Inspection: Negative for abdominal distention Auscultation: normoactive bowel sounds Palpation: soft; Negative for tender, guarding or rebound tenderness present Back/Spine no CVA tenderness General Back: Negative for CVA tenderness Cervical Spine: Negative for cervical spine tenderness Thoracic Spine / Upper Back: Negative for thoracic spinal tenderness or paraspinal muscle tenderness Extremity normal to inspection General Extremety ED: Negative for edema or tenderness General Extremity: Negative for edema Neuro oriented x3 and CN's II-XII intact bilaterally Sensorium / Orientation: alert; Negative for orientation impaired, lethargic or stuporous Motor Exam: strength 5/5 throughout Psych mental status grossly normal Appearance: Negative for unkempt Attitude: No agitated Mood & Affect: Negative for depressed, anxious or tearful Skin no rashes or lesions noted and no wounds General Skin Exam: Negative for jaundice MDM MDM MDM Narrative Medical decision making narrative: 75-year-old female weak after dialysis today. No other specific complaints. Exam benign. Screening labs to be obtained. Repeat exam at 10 PM patient is doing well. We went over her test results. She is needed transfused in the past. Her normal hemoglobin is around 8-1/2-9. She is willing to stay overnight to be transfused. I have already spoken with the hospitalist and written for the transfusion. Lab Data Attestation: I reviewed the patient's lab results. Lab results narrative: CBC showed a white count of 7.9 hemoglobin is 6. Hematocrit of 19.6. Electrolytes unremarkable gap is 7 BUN 29 creatinine 2.64 and she is end-stage renal disease so that is expected. Liver enzymes unremarkable. Chest x-ray no acute process right-sided Vas-Cath. Labs: Laboratory Results - last 24 hr 03/09/21 03/09/21 20:45 20:45 WBC 7.9 RBC 2.20 L Hgb 6.0 L* Hct 19.6 L MCV 89.1 MCH 27.3 MCHC 30.6 L RDW Std Deviation 56.9 H RDW Coeff of Becca 17.8 H Plt Count 300 MPV 10.0 Immature Gran % (Auto) 1.000 H Neut % (Auto) 79.6 H Lymph % (Auto) 9.9 L Nolan % (Auto) 7.3 Eos % (Auto) 1.7 Baso % (Auto) 0.5 Absolute Neuts (auto) 6.3 Absolute Lymphs (auto) 0.78 L Nucleated RBC % 0 Sodium 136 Potassium 3.5 Chloride 97 L Carbon Dioxide 32.0 Anion Gap 7 BUN 29 H Creatinine 2.64 H Estim Creat Clear Calc 14.79 Est GFR (MDRD) Af Amer 23 L Est GFR (MDRD) Non-Af 19 L BUN/Creatinine Ratio 11.0 Glucose 97 Calcium 8.2 L Total Bilirubin 0.30 AST 20 ALT 17 Alkaline Phosphatase 136 H Total Protein 6.6 Albumin 3.1 L Globulin 3.5 Albumin/Globulin Ratio 0.9 Radiography Chest X-Ray - ED: 1 View, Read by ED Physician, Read by Radiologist, Heart, Lungs, Mediastinum, Bony Structures, No Acute Disease and Chronic Changes Diagnostic Testing: Clinical Impression(s) from Imaging Studies Chest X-Ray 03/09/21 21:07 IMPRESSION: No acute cardiopulmonary process. Electronically Signed: Farhan Allred MD at 21:29 EST Tel , Service support , Chest x-ray, single view portable tibia myself the radiologist shows no acute abnormality. Right-sided Vas-Cath. No infiltrate. Rhythm Strip Rhythm Strip: Sinus Rhythm Rate: 76 Ectopy: PAC(s) EKG Initial EKG: Attestation: I personally reviewed and interpreted this EKG as follows: Interpretation: Sinus Rhythm and No Acute Injury Pattern Comments: Normal sinus rhythm rate of 76 with PACs. No acute signs of SC nor ischemia Rosemarie. Discharge Plan Triage Chief Complaint: Weakness ED Provider: Henrry Hammond Dx/Rx/DC Orders Clinical Impression: Anemia, Transfusion of blood during current hospitalisation, End stage chronic kidney disease Prescriptions: No Action gabapentin 100 mg capsule 300 mg PO QHS RF: 0 prednisone 2.5 mg tablet 2.5 mg PO DAILY RF: 0 Symbicort 160-4.5 mcg/actuation HFA aerosol inhaler 2 puff INHALATION BID Qty: 1 RF: 11 albuterol sulfate [ProAir HFA] 90 mcg/actuation HFA aerosol inhaler 2 puff inhalation Q6H PRNRF: 0 metolazone 5 mg tablet 5 mg PO DAILY PRNRF: 0 amitriptyline 100 MG tablet 100 mg PO QHS RF: 0 atorvastatin 80 MG tablet 80 mg PO DAILY RF: 0 aspirin 81 MG tablet 81 mg PO DAILY RF: 0 amlodipine 10 MG tablet 10 mg PO DAILY RF: 0 omeprazole 40 MG capsule,delayed release(DR/EC) 40 mg PO DAILY RF: 0 doxazosin 8 MG tablet 8 mg PO QHS RF: 0 hydralazine 100 mg tablet 100 mg PO TID RF: 0 acetaminophen 325 MG tablet 650 mg PO Q6H PRN PRN (Reason: pain) RF: 0 ascorbic acid (vitamin C) 500 MG tablet 500 mg PO DAILY@0800,1700 RF: 0 nitroglycerin 0.4 MG tablet, sublingual 0.4 mg SL Q5M PRN (Reason: CHEST PAIN) RF: 0 guaifenesin 600 MG tablet 600 mg PO BID RF: 0 carvedilol 6.25 MG tablet 6.25 mg PO BID RF: 0 bumetanide 2 MG tablet 2 mg PO DAILY RF: 0 ferrous sulfate 325 MG tablet 325 mg PO TUTHSA RF: 0 benzonatate 100 MG capsule 200 mg PO TID PRN PRN (Reason: Cough) Qty: 20 RF: 0 furosemide 40 MG tablet 40 mg PO DAILY Qty: 30 RF: 0 albuterol sulfate 1.25 mg/3 mL solution for nebulization 1.25 mg INHALATION 4X/DAY Qty: 360 RF: 6 isosorbide mononitrate 60 mg tablet extended release 24 hr 60 mg PO DAILY Qty: 90 RF: 6 Primary Care Provider: Levi Laird Referrals: Levi Laird MD [Primary Care Provider] - Disposition Disposition: Acute Care Hospital [facility]
[2021-03-09 20:59] LABS: Absolute Lymphocyte Count 0.78 X10^3/uL (0.83-4.51); Absolute Neutrophil Count 6.3 X10^3/uL (2.0-7.7); Basophil# 0.04 X10^3/uL; Basophil% 0.5 % (0-1); Eosinophil# 0.13 X10^3/uL; Eosinophils% 1.7 % (0-5); Hematocrit 19.6 % (37-47); Lymphocyte # 0.78 X10^3/ul (0.83-4.51); Lymphocyte % 9.9 % (19-41); Mean Corp Hgb Conc 30.6 g/dL (32-36); Mean Corpuscular Hgb 27.3 pg (27.0-32.0); Mean Corpuscular Volume 89.1 fL (81-99); Monocyte# 0.57 X10^3/uL; Monocyte% 7.3 % (0-10); NRBC Flagged by Analyzer 0 % (0-5); Neutrophil # 6.26 X10^3/uL (2.7-7.7); Neutrophil % 79.6 % (47-70); Platelet Count 300 K/mm3 (150-450); RBC Distribution Width CV 17.8 % (11.6-14.6); RBC Distribution Width SD 56.9 fl (35.1-43.9); White Blood Count 7.9 K/mm3 (4.4-11.0)
--- NOTE | 2021-03-09 21:07 | RAD_ITS ---
STUDY: X-RAY CHEST REASON FOR EXAM: Female, 75 years old. Weakness TECHNIQUE: Single frontal view of the chest. COMPARISON: 08/27/2019. FINDINGS: Right central venous catheter tip is in the region of the inferior SVC. Median sternotomy wires. The lungs are clear and expanded. There is no demonstrated pleural abnormality. Normal size heart. Normal mediastinum and james. Normal visualized pulmonary arteries. Normal visualized aortic arch and descending thoracic aorta. Normal visualized thoracic spine. Normal visualized ribs, clavicles, and shoulders. There is no demonstrated abnormality of the visualized soft tissue structures of the upper abdomen. RAD/Chest 1 View (Portable) IMPRESSION: No acute cardiopulmonary process. Electronically Signed: Farhan Allred MD at 21:29 EST Tel , Service support ,
[2021-03-09 21:13] VITALS: BP 181/65; PULSE 75; O2SAT 100
[2021-03-09 21:18] LABS: ALB/GLOB Ratio 0.9 RATIO (0.9-2.4); AST(SGOT) 20 U/L (15-37); Alanine Aminotransfer ALT/SGPT 17 U/L (13-56); Albumin, Serum 3.1 g/dL (3.2-5.0); Alkaline Phosphatase 136 U/L (45-117); Anion Gap 7 (5-15); BUN 29 mg/dL (7-18); Calcium,Total 8.2 mg/dL (8.5-10.1); Chloride 97 mmol/L (98-107); Creatinine, Serum 2.64 mg/dL (0.55-1.02); EST Glomerular Filtration Rate 19 mL/min (>60); Est Glom Filt Rate - Afr Amer 23 mL/min (>60); Estimated Creatinine Clearance 14.79 ml/min; Globulin 3.5 g/dL (2.2-4.2); Glucose 97 mg/dL (74-106); Potassium 3.5 mmol/L (3.5-5.1); Protein, Total 6.6 g/dL (6.4-8.2); Sodium Level 136 mmol/L (136-145)
[2021-03-09] MEDS: Ondansetron 4 MG/2 ML Vial IV (21:44)
--- NOTE | 2021-03-09 22:16 | HP.PCM.HOS_ITS ---
[facility] - General General Date of Admission: 03/09/21 HPI Narrative JULISSA VEGA, is a 75 F with a significant history of heart failure preserved ejection fraction; CAD status post CABG; COPD on chronic 1.5 L nasal cannula oxygen; and end-stage on dialysis (Sunday) who presents to emergency department with severe weakness. Her son-in-law who was at bedside reported that patient returned from dialysis on the same day of presentation. When she returned from dialysis she complained of restless legs and she took her prescribed gabapentin. Thereafter patient was so weak that her son-in-law had to carry her. Her weakness is steady. Her son-in-law reported that previously she was on gabapentin and had similar symptoms so she was taken off pending. However in February 2021 she was prescribed gabapentin and apparently took her first dose on this same day of presentation. At the emergency department patient was found to be anemic. Of note patient has chronic anemia and has received blood transfusions. At the time of examination patient had improved in regard to her weakness. [facility] Medical History (HFpEF) heart failure with preserved ejection fraction Atherosclerotic heart disease of [place] coronary artery without angina pectoris CAD (coronary artery disease) Chronic diastolic heart failure COPD (chronic obstructive pulmonary disease) Diabetes mellitus type 2 in obese Dyslipidemia Essential hypertension Morbid obesity with BMI of 40.0-44.9, adult Non-rheumatic mitral regurgitation Non-rheumatic tricuspid valve insufficiency Pulmonary hypertension Home Medications amitriptyline 100 mg PO QHS 04/09/13 [History Last Taken 11/25/18] aspirin 81 mg PO DAILY 10/25/17 [History Last Taken 11/26/18] atorvastatin 80 mg PO DAILY 10/25/17 [History Last Taken 11/25/18] amlodipine 10 mg PO DAILY 06/01/18 [History Last Taken 11/25/18] doxazosin 8 mg PO QHS 08/20/18 [History Last Taken 11/25/18] omeprazole 40 mg PO DAILY 08/20/18 [History Last Taken 11/26/18] acetaminophen 650 mg PO Q6H PRN PRN tab 12/06/18 [Rx Last Taken Unknown] ascorbic acid (vitamin C) 500 mg PO DAILY@0800,1700 tab 12/06/18 [Rx Last Taken Unknown] hydralazine 100 mg tablet 100 mg PO TID tab 01/01/19 [History Last Taken Unkn own] benzonatate 200 mg PO TID PRN PRN #20 cap 03/14/19 [Rx Last Taken Unknown] bumetanide 2 mg PO DAILY 03/14/19 [History Last Taken Unknown] carvedilol 6.25 mg PO BID 03/14/19 [History Last Taken Unknown] nitroglycerin 0.4 mg SL Q5M PRN 03/14/19 [History Last Taken Unknown] furosemide 40 mg PO DAILY #30 tab 08/27/19 [Rx Last Taken Unknown] albuterol sulfate 1.25 mg/3 mL solution for nebulization 1.25 mg INHALATION 4X/DAY #360 ml 08/17/20 [Rx Last Taken Unknown] budesonide-formoterol HFA 160 mcg-4.5 mcg/actuation aerosol inhaler 2 puff INHALATION BID #1 ea 09/14/20 [Rx Last Taken Unknown] albuterol sulfate 90 mcg/actuation aerosol inhaler 2 puff INHALATION Q6H PRN 09/30/20 [History Last Taken Unknown] metolazone 5 mg tablet 5 mg PO DAILY PRN tab 09/30/20 [History Last Taken Unknown] prednisone 2.5 mg tablet 2.5 mg PO DAILY tab 09/30/20 [History Last Taken Unknown] isosorbide mononitrate 60 mg tablet,extended release 24 hr 60 mg PO DAILY #90 tab 11/09/20 [Rx Last Taken Unknown] Allergy/AdvReac Type Severity Reaction Status Date / Time Penicillins Allergy Hives Verified 12/23/20 09:27 adhesive tape AdvReac Other Verified 12/23/20 09:27 Family History Mother Heart disease Surgical History H/O four vessel coronary artery bypass graft (~04/16/13) Social History Smoking Status: Former smoker quit date: 03/05/10 ROS ROS Narrative Constitutional: Reports fatigue. Denies fever, chills, anorexia and change in weight Eyes: Denies blurry vision, change in eye color, change in vision, discharge from eye(s), double vision, erythema, eye pain, loss of vision or other HEENT: Denies abnormal hearing, dysphagia, ear pain, epistaxis, headache(s), hearing loss, nasal congestion, nasal discharge, post nasal drip, sinus pressure, sore throat or other Cardiovascular: Denies chest pain or palpitations. Reports orthopnea (chronic) Respiratory/Chest: Denies cough, excessive phlegm production, shortness of breath with exertion and wheezing Gastrointestinal: Denies abdominal pain, coffee ground emesis, constipation, diarrhea, dyspepsia, hematemesis, hematochezia, loose stools, melena, nausea, vomiting or other Genitourinary: Denies burning urination, difficulty urinating, dysuria, hematuria, nocturia, urinary frequency, urinary hesitancy, urinary incontinence, urinary urgency or other Musculoskeletal: Denies arthralgias, back pain, joint pain, joint stiffness, joint swelling, myalgias, neck pain or other Neurologic: Denies abnormal gait, abnormal speech, confusion, disequilibrium, dizziness, focal weakness, headache(s), numbness, paresthesias, seizure-like activity, seizures, syncope, tingling, tremor(s) or other Psychiatric: Denies anxiety, depression, homicidal ideation, suicidal ideation or other Endocrinology: Denies change in body appearance, cold intolerance, excessive sweating, heat intolerance, polydipsia, polyuria or other Hematologic/Lymphatic: Denies anemia, easy bleeding, easy bruising, lymphadenopathy or other Integumentary: Denies rashes Allergic/Immunologic: Denies rhinitis, hives, eczema, asthma or other Vital Signs Vital Signs Vital Signs: 03/09/21 18:31 03/09/21 21:02 03/09/21 21:13 Temperature 96.5 F L Temperature Source Temporal Pulse Rate 73 75 Respiratory Rate 20 H Respiratory Effort Normal Non-Labored Respiratory Pattern Normal Blood Pressure 172/51 H 181/65 H Blood Pressure Mean 91 103 Pulse Ox 100 100 Oxygen Delivery Method Room Air Nasal Cannula Oxygen Flow Rate (L/min) 2 Weight Weight: 68.039 kg Body Mass Index (BMI) 27.4 Physical Exam Narrative Physical exam: General: Well-nourished, well-developed. Head: Normocephalic, atraumatic, no tenderness Eyes: PERRLA, EOMI ENT, no trauma, moist mucous membranes, no rhinorrhea Neck: Nontender, full range of motion, no spinal tenderness, deformities, step- off CVS: Regular rate and rhythm. S1-S2 present. No murmur, gallop or rub. Respiratory : clear to auscultation bilaterally, chest wall nontender, no wheezing Abdomen: Soft, nontender, nondistended, normal bowel sounds, no masses : Deferred Back: Nontender, no CVA tenderness, no midline spinal tenderness, deformities, step-offs Extremities: Nontender full range of motion, no trauma Skin: Pallor no trauma, abrasions Neuro: Alert, oriented, cranial nerves II through XII grossly intact. Psychiatry: Normal mood. Normal affect. Not depressed. Not anxious. Results Lab / Micro Data Result Diagrams: 03/09/21 20:45 03/09/21 20:45 Labs: Laboratory Results - last 24 hr 03/09/21 20:45: WBC 7.9, RBC 2.20 L, Hgb 6.0 L*, Hct 19.6 L, MCV 89.1, MCH 27.3, MCHC 30.6 L, RDW Std Deviation 56.9 H, RDW Coeff of Becca 17.8 H, Plt Count 300, MPV 10.0, Immature Gran % (Auto) 1.000 H, Neut % (Auto) 79.6 H, Lymph % (Auto) 9.9 L, Gonzales % (Auto) 7.3, Eos % (Auto) 1.7, Baso % (Auto) 0.5, Absolute Neuts (auto) 6.3, Absolute Lymphs (auto) 0.78 L, Nucleated RBC % 0 03/09/21 20:45: Sodium 136, Potassium 3.5, Chloride 97 L, Carbon Dioxide 32.0, Anion Gap 7, BUN 29 H, Creatinine 2.64 H, Estim Creat Clear Calc 14.79, Est GFR (MDRD) Af Amer 23 L, Est GFR (MDRD) Non-Af 19 L, BUN/Creatinine Ratio 11.0, Glucose 97, Calcium 8.2 L, Total Bilirubin 0.30, AST 20, ALT 17, Alkaline Phosphatase 136 H, Total Protein 6.6, Albumin 3.1 L, Globulin 3.5, Albumin/Globulin Ratio 0.9 Rhythm Strip Rhythm Strip: Sinus Rhythm Rate: 76 Ectopy: PAC(s) Radiology Impression Chest X-Ray 03/09/21 21:07 IMPRESSION: No acute cardiopulmonary process. Electronically Signed: Farhan Allred MD at 21:29 EST Tel , Service support , Assessment & Plan Assessment/Plan (1) Symptomatic anemia: (2) Restless leg syndrome: PLAN: Acute symptomatic anemia on chronic normocytic anemia Review of labs showed hemoglobin of 6.0. Her hemoglobin on 08/27/2019 was 9.7. Occult stools ordered. Iron studies; reticulocyte panel and stool occult stool ordered. Chronic anemia likely secondary to end-stage renal disease. 2 units of packed red blood cells ordered at the emergency department. Check CBC in a.m. Actual chest x-ray image was independently interpreted. Chest x-ray showed no acute cardiopulmonary process Restless leg syndrome We will start patient on Requip. Stop gabapentin. End-stage renal disease on dialysis Labs reviewed showed a potassium of 3.5. Trend BMP. Extremities like secondary to diabetic nephropathy. Dialysis on Mondays, Wednesdays and Fridays. Renal diet with calorie restrictions ordered. Nephrology consulted. Diabetes mellitus Euglycemia on presentation. Calorie restricted diet ordered. Trend BMP. Weakness PT and OT to evaluate and treat. DVT prophylaxis: Avoid chemical prophylaxis secondary to anemia. SCD ordered. Charges/Coding Visit Charges OBSV E&M: 93754 Initial observation care L3
[2021-03-09 22:30] VITALS: BP 176/81; PULSE 70; RESP 15; TEMP 36.7; O2SAT 97
[2021-03-09 22:43] LABS: Platelet Count 315 K/mm3 (150-450); RET-HE 31.5 pg (30-35); Reticulocyte Count 4.34 % (0.5-1.5)
[2021-03-09 22:55] VITALS: BMI 29.2
[2021-03-09 23:02] LABS: Ferritin 296 ng/mL (8-252); Iron 95 ug/dL (50-170); Iron Binding Capacity,Total 229 ug/dL (250-450); PERCENT IRON SATURATION 41.5 % (15.0-55.0)
--- NOTE | 2021-03-09 23:10 | PCS.PANDOC ---
PANDEMIC DOCUMENTATION INITIATED: Date: 10/18/2020 Time: 190
[2021-03-09 23:28] VITALS: BP 161/53; PULSE 78; RESP 20; TEMP 36.6; O2SAT 97
[2021-03-09 23:30] VITALS: RESP 20
[2021-03-09 23:49] VITALS: BP 161/53; PULSE 78
[2021-03-09] MEDS: hydrALAZINE 50 MG Tablet 100 MG PO (23:49)
[2021-03-09] MEDS: Pramipexole Di-HCl 0.125 MG Tablet PO (23:49)
[2021-03-09] MEDS: Furosemide 40 MG Tablet PO (23:49)
[2021-03-09] MEDS: Isosorbide Mononitrate 60 MG Tablet PO (23:49)
[2021-03-09] MEDS: Carvedilol 6.25 MG Tablet PO (23:50)
[2021-03-09] MEDS: Bumetanide 2 MG Tablet PO (23:50)
[2021-03-10] VITALS (18 sets, daily range): BP systolic 137–175; BP diastolic 39–97; PULSE 68–88; RESP 16–20; TEMP 36.5–36.9; O2SAT 98–100
--- NOTE | 2021-03-10 01:53 | PCS.PANDOC ---
PANDEMIC DOCUMENTATION INITIATED: Date: 10/18/2020 Time: 190
[2021-03-10 03:03] LABS: Vitamin B12 239 pg/mL (211-911)
[2021-03-10] MEDS: hydrALAZINE 50 MG Tablet 100 MG PO ×3 (06:30→21:13)
[2021-03-10 08:24] LABS: Absolute Lymphocyte Count 0.68 X10^3/uL (0.83-4.51); Absolute Neutrophil Count 5.1 X10^3/uL (2.0-7.7); Basophil# 0.04 X10^3/uL; Basophil% 0.6 % (0-1); Eosinophil# 0.18 X10^3/uL; Eosinophils% 2.7 % (0-5); Hematocrit 22.2 % (37-47); Lymphocyte # 0.68 X10^3/ul (0.83-4.51); Lymphocyte % 10.1 % (19-41); Mean Corp Hgb Conc 31.5 g/dL (32-36); Mean Corpuscular Hgb 28.2 pg (27.0-32.0); Mean Corpuscular Volume 89.5 fL (81-99); Mean Platelet Vol. 9.9 fl (6.2-12.0); Monocyte# 0.67 X10^3/uL; Monocyte% 9.9 % (0-10); NRBC Flagged by Analyzer 0 % (0-5); Neutrophil # 5.08 X10^3/uL (2.7-7.7); Neutrophil % 75.1 % (47-70); Platelet Count 238 K/mm3 (150-450); RBC Distribution Width CV 17.4 % (11.6-14.6); RBC Distribution Width SD 55.7 fl (35.1-43.9); Red Blood Count 2.48 M/mm3 (4.2-5.4); White Blood Count 6.8 K/mm3 (4.4-11.0)
[2021-03-10] MEDS: Aspirin E.C. 81 MG Tablet PO (08:42)
[2021-03-10] MEDS: predniSONE 5 MG Tablet 2.5 MG PO (08:42)
[2021-03-10] MEDS: Pantoprazole Sodium 40 MG Tablet PO (08:43)
[2021-03-10] MEDS: Carvedilol 6.25 MG Tablet PO ×2 (08:43→21:13)
[2021-03-10] MEDS: amLODIPine 10 MG Tablet PO (08:43)
[2021-03-10] MEDS: Bumetanide 2 MG Tablet PO (08:43)
[2021-03-10] MEDS: Isosorbide Mononitrate 60 MG Tablet PO (08:43)
[2021-03-10] MEDS: Ascorbic Acid 500 MG Tablet PO ×2 (08:43→18:07)
[2021-03-10] MEDS: Furosemide 40 MG Tablet PO (08:43)
[2021-03-10 08:50] LABS: Anion Gap 9 (5-15); BUN 35 mg/dL (7-18); BUN/Creat Ratio 10.9 RATIO (10-20); Chloride 96 mmol/L (98-107); Creatinine, Serum 3.22 mg/dL (0.55-1.02); EST Glomerular Filtration Rate 15 mL/min (>60); Est Glom Filt Rate - Afr Amer 18 mL/min (>60); Estimated Creatinine Clearance 12.12 ml/min; Glucose 86 mg/dL (74-106); Potassium 3.2 mmol/L (3.5-5.1); Sodium Level 136 mmol/L (136-145)
--- NOTE | 2021-03-10 10:34 | PCM.CONS.R ---
Assessment & Plan Assessment/Plan (1) ESRD (end stage renal disease) on dialysis: PLAN: The patient usually dialyzes on MWF schedule. She was dialyzed yesterday prior to admission to the hospital. No need for dialysis today. We will arrange for dialysis on her usual schedule tomorrow. We will not use heparin with dialysis until we find out what is causing her acute anemia. We will also check calcium and phosphorus level. She is currently not on any phosphorus binder. (2) Anemia: PLAN: Her anemia is likely multifactorial. There is certainly some contribution from having chronic kidney disease. We will find out when the last dose of KALPANA was given to the patient. Typically, patients receive long-acting KALPANA, Micera, at [facility] dialysis units. I suspect, however, that there is likely a component of acute blood loss anemia as well. Reticulocyte count is over 2% which is unusual for anemia of chronic kidney disease. We will defer work-up for causes of anemia to primary service. (3) Essential hypertension: PLAN: BP is reasonably controlled currently. Continue current antihypertensives. Ultrafiltration with dialysis tomorrow should also help. HPI Consult Data Date of Consult: 03/10/21 HPI Narrative Reason for Consultation: ESRD HPI Narrative: JULISSA VEGA, is a 75-year-old woman with past history of end-stage renal disease, restless leg syndrome, anemia, COPD, pulmonary hypertension, CAD status post CABG with heart failure with preserved ejection fraction, and mitral regurgitation. The patient dialyzes on a Sunday schedule at [facility]. She is followed there by Dr. Davis. The patient presented to the hospital yesterday on 03/09/2021 with weakness. She was weak after dialysis to the point where she cannot mobilize on her own and had to be carried to the emergency department by her son-in-law. The patient was found to have low hemoglobin at 6.0 g/dL. She was transfused overnight. Hemoglobin is 7.0 g/dL today. The patient denies current chest pain, shortness of breath at rest, nausea, vomiting, or increasing edema. [facility] Medical History (HFpEF) heart failure with preserved ejection fraction Atherosclerotic heart disease of [place] coronary artery without angina pectoris CAD (coronary artery disease) Chronic diastolic heart failure COPD (chronic obstructive pulmonary disease) Diabetes mellitus type 2 in obese Dyslipidemia Essential hypertension Morbid obesity with BMI of 40.0-44.9, adult Non-rheumatic mitral regurgitation Non-rheumatic tricuspid valve insufficiency Pulmonary hypertension Home Medications amitriptyline 100 mg PO QHS 04/09/13 [History Last Taken 11/25/18] aspirin 81 mg PO DAILY 10/25/17 [History Last Taken 11/26/18] atorvastatin 80 mg PO DAILY 10/25/17 [History Last Taken 11/25/18] amlodipine 10 mg PO DAILY 06/01/18 [History Last Taken 11/25/18] doxazosin 8 mg PO QHS 08/20/18 [History Last Taken 11/25/18] omeprazole 40 mg PO DAILY 08/20/18 [History Last Taken 11/26/18] acetaminophen 650 mg PO Q6H PRN PRN tab 12/06/18 [Rx Last Taken Unknown] ascorbic acid (vitamin C) 500 mg PO DAILY@0800,1700 tab 12/06/18 [Rx Last Taken Unknown] hydralazine 100 mg tablet 100 mg PO TID tab 01/01/19 [History Last Taken Unknown] benzonatate 200 mg PO TID PRN PRN #20 cap 03/14/19 [Rx Last Taken Unknown] bumetanide 2 mg PO DAILY 03/14/19 [History Last Taken Unknown] carvedilol 6.25 mg PO BID 03/14/19 [History Last Taken Unknown] nitroglycerin 0.4 mg SL Q5M PRN 03/14/19 [History Last Taken Unknown] furosemide 40 mg PO DAILY #30 tab 08/27/19 [Rx Last Taken Unknown] albuterol sulfate 1.25 mg/3 mL solution for nebulization 1.25 mg INHALATION 4X/DAY #360 ml 08/17/20 [Rx Last Taken Unknown] budesonide-formoterol HFA 160 mcg-4.5 mcg/actuation aerosol inhaler 2 puff INHALATION BID #1 ea 09/14/20 [Rx Last Taken Unknown] albuterol sulfate 90 mcg/actuation aerosol inhaler 2 puff INHALATION Q6H PRN 09/30/20 [History Last Taken Unknown] metolazone 5 mg tablet 5 mg PO DAILY PRN tab 09/30/20 [History Last Taken Unknown] prednisone 2.5 mg tablet 2.5 mg PO DAILY tab 09/30/20 [History Last Taken Unknown] isosorbide mononitrate 60 mg tablet,extended release 24 hr 60 mg PO DAILY #90 tab 11/09/20 [Rx Last Taken Unknown] Allergy/AdvReac Type Severity Reaction Status Date / Time Penicillins Allergy Hives Verified 12/23/20 09:27 adhesive tape AdvReac Other Verified 12/23/20 09:27 Family History Mother Heart disease Surgical History H/O four vessel coronary artery bypass graft (~04/16/13) Social History Smoking Status: Former smoker quit date: 03/05/10 ROS ROS Narrative 02/13 ROS was done and are otherwise noncontributory. Physical Exam Narrative General: Alert and oriented x3, no apparent distress. HEENT: Normocephalic, atraumatic. Mucous membrane moist without mucosal erythema. PERRLA, EOMI. Hearing is intact. Neck: Supple. No JVD. Heart: Normal S1, S2. No rubs, murmurs or gallops. Lungs: Clear to auscultation bilaterally. Abdomen: Normal bowel sound, soft, nontender, no guarding or rebound. Extremities: No clubbing, cyanosis, or edema. Psychiatric: Normal mood and affect. Musculoskeletal: Full passive range of motion. No joint swelling. Skin: Warm and dry. No rash. Lab / Micro Data Result Diagrams: 03/10/21 08:00 03/10/21 08:00 Labs: Laboratory Results - last 24 hr 03/09/21 20:15: Vitamin B12 239 03/09/21 20:45: WBC 7.9, RBC 2.20 L, Hgb 6.0 L*, Hct 19.6 L, MCV 89.1, MCH 27.3, MCHC 30.6 L, RDW Std Deviation 56.9 H, RDW Coeff of Becca 17.8 H, Plt Count 300, MPV 10.0, Immature Gran % (Auto) 1.000 H, Neut % (Auto) 79.6 H, Lymph % (Auto) 9.9 L, [place] % (Auto) 7.3, Eos % (Auto) 1.7, Baso % (Auto) 0.5, Absolute Neuts (auto) 6.3, Absolute Lymphs (auto) 0.78 L, Nucleated RBC % 0, Diff Path Review July03/09/21 20:45: Sodium 136, Potassium 3.5, Chloride 97 L, Carbon Dioxide 32.0, Anion Gap 7, BUN 29 H, Creatinine 2.64 H, Estim Creat Clear Calc 14.79, Est GFR (MDRD) Af Amer 23 L, Est GFR (MDRD) Non-Af 19 L, BUN/Creatinine Ratio 11.0, Glucose 97, Calcium 8.2 L, Total Bilirubin 0.30, AST 20, ALT 17, Alkaline Phosphatase 136 H, Total Protein 6.6, Albumin 3.1 L, Globulin 3.5, Albumin/Globulin Ratio 0.9 03/09/21 20:45: Retic Count 4.34 H, Immature Retic Fraction 18.90 H, Retic Hgb Equivalent 31.5 03/09/21 20:45: Iron 95, TIBC 229 L, Iron Saturation 41.5, Ferritin 296 H, Folate 10.60 03/09/21 22:20: Blood Type Cancelled, Antibody Screen Cancelled, Crossmatch See Detail 03/09/21 22:40: Blood Type A NEGATIVE, Antibody Screen NEGATIVE, Crossmatch See Detail 03/10/21 08:00: WBC 6.8, RBC 2.48 L, Hgb 7.0 L, Hct 22.2 L, MCV 89.5, MCH 28.2, MCHC 31.5 L, RDW Std Deviation 55.7 H, RDW Coeff of Becca 17.4 H, Plt Count 238, MPV 9.9, Immature Gran % (Auto) 1.600 H, Neut % (Auto) 75.1 H, Lymph % (Auto) 10.1 L, [place] % (Auto) 9.9, Eos % (Auto) 2.7, Baso % (Auto) 0.6, Absolute Neuts (auto) 5.1, Absolute Lymphs (auto) 0.68 L, Nucleated RBC % 0 03/10/21 08:00: Sodium 136, Potassium 3.2 L, Chloride 96 L, Carbon Dioxide 31.0, Anion Gap 9, BUN 35 H, Creatinine 3.22 H, Estim Creat Clear Calc 12.12, Est GFR (MDRD) Af Amer 18 L, Est GFR (MDRD) Non-Af 15 L, BUN/Creatinine Ratio 10.9, Glucose 86, Calcium 8.0 L Rhythm Strip Rhythm Strip: Sinus Rhythm Rate: 76 Ectopy: PAC(s) Radiology Impression Chest X-Ray 03/09/21 21:07 IMPRESSION: No acute cardiopulmonary process. Electronically Signed: Farhan Allred MD at 21:29 EST Tel , Service support ,
--- NOTE | 2021-03-10 12:01 | PN.HOSP_ITS ---
Documented by User: Chicho SARABIA 03/10/21 12:18 Subjective Subjective Patient is a 75-year-old female comfortably resting in bed, alert and orient x3. Denies development of any new symptoms overnight. Does not appear in acute distress. Objective Data Objective Data Vital Signs: Vital Signs Temp Pulse Resp BP Pulse Ox 98.1 F 76 16 159/73 H 98 03/10/21 08:34 03/10/21 08:34 03/10/21 08:34 03/10/21 08:34 03/10/21 08:34 Oxygen Flow Rate (L/min) 1.5 Oxygen Delivery Method Nasal Cannula Weight: 159 lb 9.835 oz Body Mass Index (BMI) 29.2 Intake & Output: Intake and Output for Last 24 Hours 03/08/21 03/09/21 03/10/21 23:59 23:59 23:59 Intake Total 0 / 0 Balance 0 / 0 Lab / Micro Data Result Diagrams: 03/10/21 08:00 03/10/21 08:00 Labs: Laboratory Results - last 24 hr 03/09/21 20:15: Vitamin B12 239 03/09/21 20:45: WBC 7.9, RBC 2.20 L, Hgb 6.0 L*, Hct 19.6 L, MCV 89.1, MCH 27.3, MCHC 30.6 L, RDW Std Deviation 56.9 H, RDW Coeff of Becca 17.8 H, Plt Count 300, MPV 10.0, Immature Gran % (Auto) 1.000 H, Neut % (Auto) 79.6 H, Lymph % (Auto) 9.9 L, [place] % (Auto) 7.3, Eos % (Auto) 1.7, Baso % (Auto) 0.5, Absolute Neuts (auto) 6.3, Absolute Lymphs (auto) 0.78 L, Nucleated RBC % 0, Diff Path Review July03/09/21 20:45: Sodium 136, Potassium 3.5, Chloride 97 L, Carbon Dioxide 32.0, Anion Gap 7, BUN 29 H, Creatinine 2.64 H, Estim Creat Clear Calc 14.79, Est GFR (MDRD) Af Amer 23 L, Est GFR (MDRD) Non-Af 19 L, BUN/Creatinine Ratio 11.0, Glucose 97, Calcium 8.2 L, Total Bilirubin 0.30, AST 20, ALT 17, Alkaline Phosphatase 136 H, Total Protein 6.6, Albumin 3.1 L, Globulin 3.5, Albumin/Globulin Ratio 0.9 03/09/21 20:45: Retic Count 4.34 H, Immature Retic Fraction 18.90 H, Retic Hgb Equivalent 31.5 03/09/21 20:45: Iron 95, TIBC 229 L, Iron Saturation 41.5, Ferritin 296 H, Folate 10.60 03/09/21 22:20: Blood Type Cancelled, Antibody Screen Cancelled, Crossmatch See Detail 03/09/21 22:40: Blood Type A NEGATIVE, Antibody Screen NEGATIVE, Crossmatch See Detail 03/10/21 08:00: WBC 6.8, RBC 2.48 L, Hgb 7.0 L, Hct 22.2 L, MCV 89.5, MCH 28.2, MCHC 31.5 L, RDW Std Deviation 55.7 H, RDW Coeff of Becca 17.4 H, Plt Count 238, MPV 9.9, Immature Gran % (Auto) 1.600 H, Neut % (Auto) 75.1 H, Lymph % (Auto) 10.1 L, [place] % (Auto) 9.9, Eos % (Auto) 2.7, Baso % (Auto) 0.6, Absolute Neuts (auto) 5.1, Absolute Lymphs (auto) 0.68 L, Nucleated RBC % 0 03/10/21 08:00: Sodium 136, Potassium 3.2 L, Chloride 96 L, Carbon Dioxide 31.0, Anion Gap 9, BUN 35 H, Creatinine 3.22 H, Estim Creat Clear Calc 12.12, Est GFR (MDRD) Af Amer 18 L, Est GFR (MDRD) Non-Af 15 L, BUN/Creatinine Ratio 10.9, Glucose 86, Calcium 8.0 L Radiography Diagnostic Testing: Radiology Impression Chest X-Ray 03/09/21 21:07 IMPRESSION: No acute cardiopulmonary process. Electronically Signed: Farhan Allred MD at 21:29 EST Tel , Service support , Rhythm Strip Rhythm Strip: Sinus Rhythm Rate: 76 Ectopy: PAC(s) Physical Exam Const alert, oriented x3 and no apparent distress HEENT head/scalp atraumatic and moist oral mucous membranes Head and Scalp: normocephalic Eyes PERRL, EOMs intact bilaterally and conjunctivae normal Neck no lymphadenopathy, supple and no JVD Resp normal respiratory effort, no retractions, no use of accessory muscles and clear to auscultation bilaterally Cardio regular rate, regular rhythm, no murmurs and no JVD GI normal to inspection, nondistended, normoactive bowel sounds, soft to palpation and non-tender Extremity normal to inspection, full ROM and no clubbing, cyanosis or edema Skin no rashes or lesions noted, no wounds and skin turgor normal Neuro CN's II-XII intact bilaterally Psych affect normal Assessment & Plan Assessment/Plan (1) Anemia: (2) ESRD (end stage renal disease) on dialysis: PLAN: Day 1 Discharge planning: Current plan is for patient to discharge home when medically ready. 1) acute symptomatic anemia on chronic normocytic anemia Hemoglobin currently 7.0, after transfusions of 2 units of PRBCs. Iron, folate and B12 within normal limits. Occult stool ordered/pending. GI consult order ed. Continue to monitor CBC. 2) ESRD Patient was dialyzed yesterday, 03/09/2021 in accordance with [facility] schedule. Nephrology following for appropriate management of hemodialysis. 3) history of diabetes mellitus type 2 Patient was euglycemic on presentation and continues to be euglycemic. Calorie restricted diet ordered, continue to monitor BMP. DVT prophylaxis -SCDs, no chemoprophylaxis secondary to #1. Patient seen by Chicho Lanza PA-C, under the supervision of Dr Hillman. Time spent on patient care: 9 minutes. Documented by User: Dr. Sarah Hillman DO 03/10/21 15:27 Subjective Subjective This patient was seen in conjunction with CORNELL Gonzalez. The following is representation my independent history and physical examination. Please see below for any addendum the above. Patient states that she has had transfusions in the past for low blood counts. She is on dialysis at baseline. She does admit to having dark stool but has not had a bowel movement yet since she has been here. She has had colonoscopy remotely but states she has followed up for repeat colonoscopy but every time she goes she has elevated blood pressure and is therefore unable to proceed with her colonoscopy. She denies ever having an EGD. She denies abdominal pain however on exam she does have some mild discomfort with palpation in the epigastric region. She is on prednisone regularly but also takes PPI. Objective Data Lab / Micro Data Result Diagrams: 03/10/21 08:00 03/10/21 08:00 Physical Exam Const alert, no apparent distress and well nourished Constitutional Narrative: Overweight older white female sitting up in bed, appears comfortable, nontoxic Exam Limitations: no limitations Nutritional Appearance: overweight HEENT head/scalp atraumatic and moist oral mucous membranes HEENT Narrative: Dentures in place, Mallampati 2, no thrush Head and Scalp: normocephalic Resp normal respiratory effort, no retractions, no use of accessory muscles and clear to auscultation bilaterally Auscultation: Negative for crackles, rales, rhonchi or wheezes Cardio regular rate, regular rhythm, S1 normal heart sound, S2 normal heart sound, no rub, no gallops, no clicks and no JVD; Negative for no murmurs Cardio Narrative: 3 out of 6 systolic murmur loudest at the right upper sternal border and radiates to bilateral carotids GI normal to inspection, nondistended, normoactive bowel sounds, soft to palpation and non-distended Palpation: tender epigastric (Mild) Extremity no clubbing, cyanosis or edema Peripheral Pulses: Yes pulses 2+ throughout Skin Skin Narrative: Pale Neuro oriented x3, moves all extremities and no focal motor deficits Sensorium / Orientation: awake and alert Speech: speech normal Psych affect normal Psych Narrative: Very pleasant Assessment & Plan Assessment/Plan (1) Hypokalemia: (2) Symptomatic anemia: (3) Shortness of breath: PLAN: Assessment: Acute on chronic normocytic anemia Shortness of breath Generalized weakness Hypokalemia Elevated reticulocyte count End-stage renal disease-HD dependent DM-2 Hyperlipidemia Hypertension COPD PAH who group 2 Aortic valve stenosis Diastolic dysfunction CAD ELAINE Restless leg syndrome Chronic steroid use Plan: -Patient with normocytic anemia but has a markedly elevated reticulocyte count which makes me concerned for acute blood loss -GI consultation -Iron studies are not low -Continue PPI -Oral potassium replacement -Patient has received 2 units packed red blood cells and did correct however did not correct appropriately as her hemoglobin went from 6-7--> will repeat hemoglobin now and if less than 7 transfuse -Repeat CBC in a.m. -Clear liquid diet -Continue home medications for cardiac disease -Nephrology consulted for dialysis Sunday Charges/Coding Visit Charges Inpatient E&M: 86551 Subs Hosp L2
--- NOTE | 2021-03-10 13:25 | CASEMGMT ---
RN CM Face to Face with patient for initial transition planning/care coordination assessment. RN CM introduced self and role at [facility]. Patient lying in bed, alert and oriented, son-in-law at bedside. Patient willing to participate in assessment and is able to answer all questions appropriately. Care providers, pharmacy, and demographics verified. Patient wishes to discharge home, denies need for home health at this time. Patient states she has no further needs or concerns at this time. CM to follow for discharge planning needs that may arise. PCP: E[facility] Specialists: Vince, hvac lead; Jhon hydraulic chair assembler Preferred Pharmacy: [facility] Insurance: [employer] [facility] Prescription Benefit: yes Living Will/HPOA: yes, daughter Doris Robertson LNOK: Daughters, ONUR Living Arrangements: Patient lives with daughter and ONUR in a single story home with 3 steps and railing to enter the home. Patient states he is independent at home for dressing and toileting, daughter assists with bathing. Transportation: daughter or ONUR DME/HHC: Patient states she has walker, rollator, shower chair, grab bars, nebulizer, bipap, home oxygen at 1.5 through [employer] with portable concentrator. Paitent states she has had HHC in the past but could not recall agency. Disposition Plan: Patient to discharge home with family support and follow-up plans in place. Mayra KATZ, RN, CM
--- NOTE | 2021-03-10 15:01 | CON.PCM.GI_ITS ---
HPI Consult Data Date of Consult: 03/10/21 HPI Narrative HPI Narrative: JULISSA VEGA, is a 75 F who presents with worsening shortness of breath. She has a history of end-stage renal disease on hemodialysis every Sunday and Sunday. She also has a history of CAD status post CABG. She has been having worsening anemia thought not to be secondary to end-stage renal disease over the last 2 years. Her son in law and daughter have been trying to get her to have endoscopy however she has refused in the past. On this current admission she was discovered to have a hemoglobin of 6. Her hemoglobin has been as low as 5 as per her son-in-law. She received 2 units of packed red blood cells and her hemoglobin went from 6-7. I was consulted in regarding her anemia. She does have intermittent dark stools. However she has not seen any blood in her stools. She does not know she is on Aranesp, B12, folic acid. She has received iron transfusions in the past and has received multiple units of packed red blood cells over the last 2 years. [facility] Medical History (HFpEF) heart failure with preserved ejection fraction Atherosclerotic heart disease of nikolski coronary artery without angina pectoris CAD (coronary artery disease) Chronic diastolic heart failure COPD (chronic obstructive pulmonary disease) Diabetes mellitus type 2 in obese Dyslipidemia Essential hypertension Morbid obesity with BMI of 40.0-44.9, adult Non-rheumatic mitral regurgitation Non-rheumatic tricuspid valve insufficiency Pulmonary hypertension Home Medications amitriptyline 100 mg PO QHS 04/09/13 [History Last Taken 11/25/18] aspirin 81 mg PO DAILY 10/25/17 [History Last Taken 11/26/18] atorvastatin 80 mg PO DAILY 10/25/17 [History Last Taken 11/25/18] amlodipine 10 mg PO DAILY 06/01/18 [History Last Taken 11/25/18] doxazosin 8 mg PO QHS 08/20/18 [History Last Taken 11/25/18] omeprazole 40 mg PO DAILY 08/20/18 [History Last Taken 11/26/18] acetaminophen 650 mg PO Q6H PRN PRN tab 12/06/18 [Rx Last Taken Unknown] ascorbic acid (vitamin C) 500 mg PO DAILY@0800,1700 tab 12/06/18 [Rx Last Taken Unknown] hydralazine 100 mg tablet 100 mg PO TID tab 01/01/19 [History Last Taken Unknown] benzonatate 200 mg PO TID PRN PRN #20 cap 03/14/19 [Rx Last Taken Unknown] bumetanide 2 mg PO DAILY 03/14/19 [History Last Taken Unknown] carvedilol 6.25 mg PO BID 03/14/19 [History Last Taken Unknown] nitroglycerin 0.4 mg SL Q5M PRN 03/14/19 [History Last Taken Unknown] furosemide 40 mg PO DAILY #30 tab 08/27/19 [Rx Last Taken Unknown] albuterol sulfate 1.25 mg/3 mL solution for nebulization 1.25 mg INHALATION 4X/ DAY #360 ml 08/17/20 [Rx Last Taken Unknown] budesonide-formoterol HFA 160 mcg-4.5 mcg/actuation aerosol inhaler 2 puff INHALATION BID #1 ea 09/14/20 [Rx Last Taken Unknown] albuterol sulfate 90 mcg/actuation aerosol inhaler 2 puff INHALATION Q6H PRN 09/30/20 [History Last Taken Unknown] metolazone 5 mg tablet 5 mg PO DAILY PRN tab 09/30/20 [History Last Taken Unknown] prednisone 2.5 mg tablet 2.5 mg PO DAILY tab 09/30/20 [History Last Taken Unknown] isosorbide mononitrate 60 mg tablet,extended release 24 hr 60 mg PO DAILY #90 tab 11/09/20 [Rx Last Taken Unknown] Allergy/AdvReac Type Severity Reaction Status Date / Time Penicillins Allergy Hives Verified 12/23/20 09:27 adhesive tape AdvReac Other Verified 12/23/20 09:27 Family History Mother Heart disease Surgical History H/O four vessel coronary artery bypass graft (~04/16/13) Social History Smoking Status: Former smoker quit date: 03/05/10 ROS Review of Systems ROS Unobtainable: other Constitutional Constitutional: Reports fatigue, poor appetite and weight loss; Denies weight gain ENT HEENT: Denies mouth lesions Cardiovascular Cardiovascular: Denies abdominal bloating, abdominal edema or abdominal pain Respiratory/Chest Respiratory/Chest: Denies change in mental status, change in phlegm color, chest congestion or chest tightness Gastrointestinal Gastrointestinal: Reports hemorrhoids, loose stools and melena; Denies weight changes Genitourinary Genitourinary: Denies abdominal discomfort, burning urination or itching Musculoskeletal Musculoskeletal: Reports as per HPI; Denies muscle weakness or myalgias Integumentary Integumentary: Denies jaundice Neurologic Neurologic: Denies lack of coordination or weakness Psychiatric Psychiatric: Denies confusion, depression, memory loss, mood swings, paranoia or suicidal ideation Endocrine Endocrinology: Denies systems reviewed and no addt'l complaints, except as documented Hematologic/Lymphatic Hematologic/Lymphatic: Denies anemia, easy bleeding, easy bruising or lymphadenopathy Allergic/Immunologic Allergic/Immunologic: Denies systems reviewed and no addt'l complaints, except as documented Physical Exam Const alert General Appearance: cooperative Orientation / Consciousness: oriented to person HEENT hearing grossly normal bilaterally Head and Scalp: normal to inspection Face and Sinus: face symmetric Nose: external nose normal Mouth: oral and palatal mucosa normal Eyes conjunctivae normal General Eye: normal appearance of both eyes Neck full ROM General: normal visual inspection Lymph Lymphatic: no lymphadenopathy noted Chest inspection of chest normal and palpation of chest normal Chest: symmetrical chest wall rise Resp normal respiratory effort Effort and Inspection: able to speak in complete sentences Cardio regular rate GI non-distended Percussion: normal to percussion Rectal Exam: deferred Neuro Speech: speech normal Gait (Neuro): normal gait Lab / Micro Data Result Diagrams: 03/10/21 08:00 03/10/21 08:00 Labs: Laboratory Results - last 24 hr 03/09/21 20:15: Vitamin B12 239 03/09/21 20:45: WBC 7.9, RBC 2.20 L, Hgb 6.0 L*, Hct 19.6 L, MCV 89.1, MCH 27.3, MCHC 30.6 L, RDW Std Deviation 56.9 H, RDW Coeff of Becca 17.8 H, Plt Count 300, MPV 10.0, Immature Gran % (Auto) 1.000 H, Neut % (Auto) 79.6 H, Lymph % (Auto) 9.9 L, [place] % (Auto) 7.3, Eos % (Auto) 1.7, Baso % (Auto) 0.5, Absolute Neuts (auto) 6.3, Absolute Lymphs (auto) 0.78 L, Nucleated RBC % 0, Diff Path Review July03/09/21 20:45: Sodium 136, Potassium 3.5, Chloride 97 L, Carbon Dioxide 32.0, Anion Gap 7, BUN 29 H, Creatinine 2.64 H, Estim Creat Clear Calc 14.79, Est GFR (MDRD) Af Amer 23 L, Est GFR (MDRD) Non-Af 19 L, BUN/Creatinine Ratio 11.0, Glucose 97, Calcium 8.2 L, Total Bilirubin 0.30, AST 20, ALT 17, Alkaline Phosphatase 136 H, Total Protein 6.6, Albumin 3.1 L, Globulin 3.5, Albumin/Globulin Ratio 0.9 03/09/21 20:45: Retic Count 4.34 H, Immature Retic Fraction 18.90 H, Retic Hgb Equivalent 31.5 03/09/21 20:45: Iron 95, TIBC 229 L, Iron Saturation 41.5, Ferritin 296 H, Folate 10.60 03/09/21 22:20: Blood Type Cancelled, Antibody Screen Cancelled, Crossmatch See Detail 03/09/21 22:40: Blood Type A NEGATIVE, Antibody Screen NEGATIVE, Crossmatch See Detail 03/10/21 08:00: WBC 6.8, RBC 2.48 L, Hgb 7.0 L, Hct 22.2 L, MCV 89.5, MCH 28.2, MCHC 31.5 L, RDW Std Deviation 55.7 H, RDW Coeff of Becca 17.4 H, Plt Count 238, MPV 9.9, Immature Gran % (Auto) 1.600 H, Neut % (Auto) 75.1 H, Lymph % (Auto) 10.1 L, [place] % (Auto) 9.9, Eos % (Auto) 2.7, Baso % (Auto) 0.6, Absolute Neuts (auto) 5.1, Absolute Lymphs (auto) 0.68 L, Nucleated RBC % 0 03/10/21 08:00: Sodium 136, Potassium 3.2 L, Chloride 96 L, Carbon Dioxide 31.0, Anion Gap 9, BUN 35 H, Creatinine 3.22 H, Estim Creat Clear Calc 12.12, Est GFR (MDRD) Af Amer 18 L, Est GFR (MDRD) Non-Af 15 L, BUN/Creatinine Ratio 10.9, Glucose 86, Calcium 8.0 L Rhythm Strip Rhythm Strip: Sinus Rhythm Rate: 76 Ectopy: PAC(s) Radiology Impression Chest X-Ray 03/09/21 21:07 IMPRESSION: No acute cardiopulmonary process. Electronically Signed: Farhan Allred MD at 21:29 EST Tel , Service support , Assessment & Plan Assessment/Plan (1) Anemia: PLAN: Differential diagnosis for her anemia would include anemia chronic disease, GI bleed secondary to peptic ulcer disease, H. pylori, celiac disease, AVMs, neoplasia, dielafouy lesions. She should undergo upper or lower endoscopy and possible capsule endoscopy. She was explained alternatives, risk, benefits including understanding bleeding, infection, sepsis, perforation, need emergent . She will have an ASA of 3. Charges/Coding Visit Charges Inpatient E&M: 21034 Init Hosp L2
[2021-03-10 15:17] LABS: Hematocrit 22.6 % (37-47); Hemoglobin 7.1 g/dL (12.0-15.0)
[2021-03-10] MEDS: Bisacodyl 5 MG Tablet 20 MG PO (16:15)
[2021-03-10] MEDS: Polyethylene Glycol 3350 BOWEL PREP PO (18:04)
[2021-03-10] MEDS: 0.9% Saline Lock 10 ML Syringe IV (18:11)
[2021-03-10] MEDS: Metoclopramide 10 MG/2 ML Vial 5 MG IV (18:11)
[2021-03-10] MEDS: Ondansetron 4 MG/2 ML Vial IV (19:35)
[2021-03-10] MEDS: Atorvastatin Calcium 80 MG Tablet PO (21:13)
[2021-03-10] MEDS: Amitriptyline 100 MG Tablet PO (21:13)
[2021-03-10] MEDS: Pramipexole Di-HCl 0.125 MG Tablet PO (21:13)
[2021-03-11] VITALS (11 sets, daily range): BP systolic 112–179; BP diastolic 52–97; PULSE 61–90; RESP 18–20; TEMP 36.6–37.2; O2SAT 92–99; BMI 29.2
[2021-03-11] MEDS: Metoclopramide 10 MG/2 ML Vial 5 MG IV ×4 (00:16→22:29)
--- NOTE | 2021-03-11 05:28 | NURSING ---
no results from bowel prep, dr goyal notified, new order for golytely 1gallon ordered
[2021-03-11] MEDS: hydrALAZINE 50 MG Tablet 100 MG PO ×2 (06:17→22:07)
--- NOTE | 2021-03-11 06:38 | NURSING ---
pt had a small hard bm, black and voided this am
[2021-03-11 06:49] LABS: Hematocrit 23.6 % (37-47); Hemoglobin 7.4 g/dL (12.0-15.0)
[2021-03-11] MEDS: Electrolyte Solution/Peg's 4000 ML PO (07:00)
[2021-03-11 07:17] LABS: Anion Gap 11 (5-15); BUN 41 mg/dL (7-18); Calcium,Total 7.8 mg/dL (8.5-10.1); Chloride 90 mmol/L (98-107); Creatinine, Serum 4.09 mg/dL (0.55-1.02); EST Glomerular Filtration Rate 11 mL/min (>60); Est Glom Filt Rate - Afr Amer 14 mL/min (>60); Estimated Creatinine Clearance 9.54 ml/min; Glucose 79 mg/dL (74-106); Potassium 3.6 mmol/L (3.5-5.1); Sodium Level 129 mmol/L (136-145)
--- NOTE | 2021-03-11 07:38 | NURSING ---
bowel prep started 0700
[2021-03-11 10:02] LABS: Pathologist Review Reviewed
[2021-03-11 10:53] LABS: Hepatitis B Surface Antigen Non-Reactive (Nonreactive)
--- NOTE | 2021-03-11 13:02 | CASEMGMT ---
Pt is on OP HD and is MWF at [facility]. Pt will need dialysis today and then will go back to OP dialysis clinic on Sunday03/14/21. Therapy has not seen pt yet as she went down for scope. CM to follow. Dyan PADILLA CM
--- NOTE | 2021-03-11 15:46 | PCM.PN.REN ---
Documented by User: TREVOR Paul 03/11/21 15:56 Subjective Subjective Sitting in chair, no complaints Objective Data Objective Data Vital Signs: Vital Signs Temp Pulse Resp BP Pulse Ox 98.2 F 77 18 144/97 H 96 03/11/21 12:25 03/11/21 15:30 03/11/21 12:25 03/11/21 12:25 03/11/21 12:25 Oxygen Flow Rate (L/min) 1.5 Oxygen Delivery Method Nasal Cannula Weight: 72.4 kg Body Mass Index (BMI) 29.2 Intake & Output: Intake and Output for Last 24 Hours 03/09/21 03/10/21 03/11/21 23:59 23:59 23:59 Intake Total 0 / 0 600 / 600 Output Total 500 / 500 Balance 0 / 0 100 / 100 Lab / Micro Data Result Diagrams: 03/12/21 06:30 03/12/21 06:30 Labs: Laboratory Results - last 24 hr 03/09/21 20:15: Hep Bs Antigen Non-Reactive 03/09/21 20:45: Diff Path Review Reviewed 03/09/21 22:40: Crossmatch See Detail 03/11/21 06:16: Sodium 129 L, Potassium 3.6, Chloride 90 L, Carbon Dioxide 28.0, Anion Gap 11, BUN 41 H, Creatinine 4.09 H, Estim Creat Clear Calc 9.54, Est GFR (MDRD) Af Amer 14 L, Est GFR (MDRD) Non-Af 11 L, BUN/Creatinine Ratio 10.0, Glucose 79, Calcium 7.8 L 03/11/21 06:16: Hgb 7.4 L, Hct 23.6 L Micro: Microbiology 03/11/21 Unknown Nasal Secretion SARS-CoV-2 Antigen (Rapid) - Final Rhythm Strip Rhythm Strip: Sinus Rhythm Rate: 76 Ectopy: PAC(s) Physical Exam Narrative Const: A&Ox3 Respiratory: Lung sounds clear anteriorly and posteriorly Extremity: No pitting edema noted bilateral lower leg Tunneled HD catheter right chest dressing clean dry and intact Assessment & Plan Assessment/Plan (1) ESRD (end stage renal disease) on dialysis: (2) Anemia: (3) Essential hypertension: PLAN: - Patient is in process of prep for upper and lower endoscopy, possible capsule endoscopy for today. She dialyzes Sunday. She will need dialysis either today or tomorrow depending on timing of scopes. She cannot be discharged to home today without dialysis as patient's outpatient dialysis center is only open Sunday. Her last HD session was Sunday, 03/09. - Bps acceptable on multiple antihypertensives - GI following. Documented by User: Dr. Yarely Sandra MD 03/12/21 10:49 Objective Data Lab / Micro Data Result Diagrams: 03/12/21 06:30 03/12/21 06:30
--- NOTE | 2021-03-11 16:21 | PN.HOSP_ITS ---
Documented by User: Chicho SARABIA 03/11/21 16:34 Subjective Subjective Patient is a 75-year-old female comfortably resting in a chair, alert and orient x3. Patient did have a minor fall overnight attempting to ambulate to the restroom, small bruise/clot evident on the right knee. No obvious deformity. Patient is without any significant complaints. Does not appear in acute distress. Objective Data Objective Data Vital Signs: Vital Signs Temp Pulse Resp BP Pulse Ox 98.2 F 77 18 144/97 H 96 03/11/21 12:25 03/11/21 15:30 03/11/21 12:25 03/11/21 12:25 03/11/21 12:25 Oxygen Flow Rate (L/min) 1.5 Oxygen Delivery Method Nasal Cannula Weight: 159 lb 9.835 oz Body Mass Index (BMI) 29.2 Intake & Output: Intake and Output for Last 24 Hours 03/09/21 03/10/21 03/11/21 23:59 23:59 23:59 Intake Total 0 / 0 600 / 600 Output Total 500 / 500 Balance 0 / 0 100 / 100 Lab / Micro Data Result Diagrams: 03/11/21 06:16 03/11/21 06:16 Labs: Laboratory Results - last 24 hr 03/09/21 20:15: Hep Bs Antigen Non-Reactive 03/09/21 20:45: Diff Path Review Reviewed 03/09/21 22:40: Crossmatch See Detail 03/11/21 06:16: Sodium 129 L, Potassium 3.6, Chloride 90 L, Carbon Dioxide 28.0, Anion Gap 11, BUN 41 H, Creatinine 4.09 H, Estim Creat Clear Calc 9.54, Est GFR (MDRD) Af Amer 14 L, Est GFR (MDRD) Non-Af 11 L, BUN/Creatinine Ratio 10.0, Glucose 79, Calcium 7.8 L 03/11/21 06:16: Hgb 7.4 L, Hct 23.6 L Micro: Microbiology 03/11/21 Unknown Nasal Secretion SARS-CoV-2 Antigen (Rapid) - Final Rhythm Strip Rhythm Strip: Sinus Rhythm Rate: 76 Ectopy: PAC(s) Physical Exam Const alert, oriented x3 and no apparent distress HEENT head/scalp atraumatic and moist oral mucous membranes Head and Scalp: normocephalic Eyes PERRL, EOMs intact bilaterally and conjunctivae normal Neck no lymphadenopathy, supple and no JVD Resp normal respiratory effort, no retractions, no use of accessory muscles and clear to auscultation bilaterally Cardio regular rate, regular rhythm, no murmurs and no JVD GI normal to inspection, nondistended, normoactive bowel sounds, soft to palpation and non-tender Extremity normal to inspection, full ROM and no clubbing, cyanosis or edema Skin no rashes or lesions noted Neuro CN's II-XII intact bilaterally Psych affect normal Assessment & Plan Assessment/Plan (1) Anemia: (2) ESRD (end stage renal disease) on dialysis: PLAN: Day 2 Discharge planning: Current plan is for patient to discharge home when medically ready. Initial plan was to discharge on 03/11, however endoscopy and dialysis were delayed. Patient will likely be ready for discharge on 03/12. 1) acute symptomatic anemia on chronic normocytic anemia Hemoglobin currently 7.4, remained stable overnight. Transfused 2 units of PRBCs on 03/09. Iron, folate and B12 within normal limits. Patient currently awaiting EGD. 2) ESRD Patient was last dialyzed on 03/09 in accordance with [facility] schedule. Nephrology following for appropriate management of hemodialysis. Patient was supposed to be dialyzed today, 03/11, however EGD procedure has been delayed. Dialysis will either need to take place today or tomorrow, patient cannot discharge before being dialyzed due to dialysis schedule being closed on Sunday. 3) history of diabetes mellitus type 2 Patient was euglycemic on presentation and continues to be euglycemic. Calorie restricted diet ordered, continue to monitor BMP. DVT prophylaxis -SCDs, no chemoprophylaxis secondary to #1. Patient seen by Chicho Lanza PA-C, under the supervision of Dr Hillman. Time spent on patient care: 7 minutes. Documented by User: Dr. Sarah Hillman DO 03/11/21 18:11 Subjective Subjective This patient was seen in conjunction with CORNELL Gonzalez. The following is a representation of my independent history and physical examination. Please see below for addendum the above. The patient had one episode of emesis after she started drinking GoLYTELY last evening. She has been able to get the rest of it down and having good colonic cleanout since that point time. She also unfortunately had a fall last evening when she tried to get out of bed independently. She had no marked injury other than she hit the second digit on her left foot which now shows significant ecchymosis and she is having pain. She states she thinks it is probably broken. I offered an x-ray but discussed clinical treatment is katarina taping to the next toe and she is disinterested in any imaging at this point time. Objective Data Lab / Micro Data Result Diagrams: 03/11/21 06:16 03/11/21 06:16 Physical Exam Const alert, no apparent distress and well nourished Constitutional Narrative: Overweight older white female sitting up in a chair at the bedside, has just gotten off the bedside commode, appears comfortable, nontoxic, aide at bedside Exam Limitations: no limitations Nutritional Appearance: overweight HEENT head/scalp atraumatic and moist oral mucous membranes Head and Scalp: normocephalic Resp normal respiratory effort, no retractions, no use of accessory muscles and clear to auscultation bilaterally Auscultation: Negative for crackles, rales, rhonchi or wheezes Cardio regular rate, regular rhythm, S1 normal heart sound, S2 normal heart sound, no rub, no gallops, no clicks and no JVD; Negative for no murmurs Cardio Narrative: 3 out of 6 systolic murmur loudest at the right upper sternal border and radiates to bilateral carotids GI normal to inspection, nondistended, normoactive bowel sounds, soft to palpation, non-tender and non-distended Extremity no clubbing, cyanosis or edema Extremity Narrative: Second toe on left foot distal with ecchymosis and tenderness but no displacement Peripheral Pulses: Yes pulses 2+ throughout Skin Skin Narrative: Pale Neuro oriented x3, moves all extremities and no focal motor deficits Sensorium / Orientation: awake and alert Speech: speech normal Assessment & Plan Assessment/Plan (1) Hypokalemia: (2) Symptomatic anemia: (3) Shortness of breath: (4) Toe fracture, left: PLAN: Assessment: Acute on chronic normocytic anemia Shortness of breath Generalized weakness Hypokalemia Fall Left second digit fracture foot Elevated reticulocyte count End-stage renal disease-HD dependent Hyponatremia--> will be corrected with dialysis later today DM-2 Hyperlipidemia Hypertension COPD PAH who group 2 Aortic valve stenosis Diastolic dysfunction CAD ELAINE Restless leg syndrome Chronic steroid use Plan: -Hemoglobin has remained stable since transfusion and is 7.4 this morning -Scopes this afternoon -Fall resulted in left second toe fracture -Deferring any imaging at this time -We will katarina tape toe if needed -PT and OT consults are pending and patient will need to be seen prior to discharge secondary to fall -Hypokalemia has resolved -Dialysis later this evening -Prakash a.m. lab Charges/Coding Visit Charges Inpatient E&M: 65385 Subs Hosp L2
[2021-03-11] MEDS: 0.9% Saline Lock 10 ML Syringe IV ×2 (16:26→22:29)
--- NOTE | 2021-03-11 21:50 | NURSING ---
Pt's daughter Doris called with several concerns and felt that her mother was not being properly cared for. She stated that no one had been in her room since shift change and that she was being denied ice or anything to drink. She also stated that she was concerned that her mothers arm was red where she had fallen on it the previous night. This RN informed Doirs that our nurses and/or our cloth feeder's round on every patient at least once an hour. We also discussed the statement that her mother was being denied drink and that she heard someone in the room tell her mom no when she asked for ice. This RN questioned the earlier statement that she felt no one had been in the room but then heard someone in the room deny her drink. Doris became irate and stated that her mother was not incompetent and able to convey the information correctly and that this RN was calling her a liar. This RN explained that she was trying to understand the situation and asked her to speak with the primary RN caring for her mother directly. Call transferred to RANDY Martin.
--- NOTE | 2021-03-11 21:57 | EX.PCM.PN.GI ---
Subjective Subjective Patient was unable to get her EGD and colonoscopy today due to the need for hemodialysis. Her hemoglobin has been holding after blood transfusion. She is currently prepping for colonoscopy in a.m. Objective Data Objective Data Vital Signs: Vital Signs Temp Pulse Resp BP Pulse Ox 97.8 F 77 18 177/55 H 96 03/11/21 16:20 03/11/21 16:20 03/11/21 16:20 03/11/21 16:20 03/11/21 16:20 Oxygen Flow Rate (L/min) 1.5 Oxygen Delivery Method Nasal Cannula Weight: 159 lb 9.835 oz Body Mass Index (BMI) 29.2 Intake & Output: Intake and Output for Last 24 Hours 03/09/21 03/10/21 03/11/21 23:59 23:59 23:59 Intake Total 0 / 0 1080 / 1080 Output Total 500 / 500 Balance 0 / 0 580 / 580 Lab / Micro Data Result Diagrams: 03/11/21 06:16 03/11/21 06:16 Labs: Laboratory Results - last 24 hr 03/09/21 20:15: Hep Bs Antigen Non-Reactive 03/09/21 20:45: Diff Path Review Reviewed 03/09/21 22:40: Crossmatch See Detail 03/11/21 06:16: Sodium 129 L, Potassium 3.6, Chloride 90 L, Carbon Dioxide 28.0, Anion Gap 11, BUN 41 H, Creatinine 4.09 H, Estim Creat Clear Calc 9.54, Est GFR (MDRD) Af Amer 14 L, Est GFR (MDRD) Non-Af 11 L, BUN/Creatinine Ratio 10.0, Glucose 79, Calcium 7.8 L 03/11/21 06:16: Hgb 7.4 L, Hct 23.6 L Micro: Microbiology 03/11/21 Unknown Nasal Secretion SARS-CoV-2 Antigen (Rapid) - Final Rhythm Strip Rhythm Strip: Sinus Rhythm Rate: 76 Ectopy: PAC(s) Physical Exam Const alert General Appearance: cooperative Orientation / Consciousness: oriented to person HEENT hearing grossly normal bilaterally Head and Scalp: normal to inspection Face and Sinus: face symmetric Nose: external nose normal Mouth: oral and palatal mucosa normal Eyes conjunctivae normal General Eye: normal appearance of both eyes Neck full ROM General: normal visual inspection Lymph Lymphatic: no lymphadenopathy noted Chest inspection of chest normal and palpation of chest normal Chest: symmetrical chest wall rise Resp normal respiratory effort Effort and Inspection: able to speak in complete sentences Cardio regular rate GI non-distended Percussion: normal to percussion Rectal Exam: deferred Neuro Speech: speech normal Gait (Neuro): normal gait Assessment & Plan Assessment/Plan (1) Anemia: PLAN: The plan is for EGD and colonoscopy in the a.m. Hopefully she will be clean enough for us to evaluate her lower GI tract. N.p.o. past midnight Charges/Coding Visit Charges Inpatient E&M: 70300 Subs Hosp L2
[2021-03-11] MEDS: Amitriptyline 100 MG Tablet PO (22:07)
[2021-03-11] MEDS: Pramipexole Di-HCl 0.125 MG Tablet PO (22:07)
[2021-03-11] MEDS: Carvedilol 6.25 MG Tablet PO (22:07)
[2021-03-11] MEDS: Atorvastatin Calcium 80 MG Tablet PO (22:07)
--- NOTE | 2021-03-11 22:10 | NURSING ---
Addendum entered by Roxanne Benjamin 03/11/21 22:53: Pt's daughter stated that her mother had stated that she was afraid to use the call light because she had accidentally bumped the call light and that the staff seemed irritated so she didn't want to use it when she did need it. This RN stated that it's not uncommon for patient's to accidentally bump the call light and that we are happy to cancel the call in these situations. This RN assured Doris that she would speak with pt and ensure that she is aware that she should use her call light at any time for any need. Original Note: This RN was transferred back the call with pt's daughter Doris from RANDY Martin to continue to address concerns. After discussing with RANDY Martin we clarified that the pt was denied ice and/or drink because the patient was not finished with her bowel prep and had already missed her egd/colonoscopy today d/t not being clear on the prep. We discussed the importance of completing this procedure tomorrow morning and would place the prep drink on ice to ensure it was as tolerable as possible. Doris was also concerned for pt's arm where she had fallen on the previous night and this RN stated that the MD was made aware of the fall and that it was a skin tear, had been dressed but that we would take down the dressing and complete another assessment of the site. This RN also relayed the rounding done and documented by day shift and thus far on inspector watch parts. This RN assured Doris that her mother would be well taken care of and that our goal as was hers was to be prepared for her procedure in the am.
--- NOTE | 2021-03-11 22:30 | NURSING ---
Alistair from respiratory therapy aware that pt requesting breathing treatment and pt now has aerosols ordered.
[2021-03-12] VITALS (10 sets, daily range): BP systolic 147–176; BP diastolic 52–87; PULSE 82–92; RESP 18–20; TEMP 36.3–37.2; O2SAT 97–100
--- NOTE | 2021-03-12 | GASB_PTH ---
PATIENT: JULISSA VEGA LOC: [facility] U#:[id number] AGE/SX: 75/F ROOM: [facility] RE03/10/[address]: Dr. Sarah Hillman DO : 1945 BED: 1 DIS: 03/12/2021 SPEC #: [id number] RECD: 03/12/21 13:35 STATUS: TIM REErin #: [id number] JOSEPH: 03/12/21 00:[address]: Kameron Chan DEPT: SURGICAL PATHOLOGY RECD BY: Abhinav Wiggins ENTERED: 03/14/21 07:39 SP TYPE: Gastric Bx OTHR DR: MD Dr. Sarah Olmstead DO Dr. Natthavat Tanphaichitr, MD Dr. William Lago, MD Tissues: A - Gastric mucous membrane B - Gastric mucous membrane C - Transverse colon Procedures: Surgery Specimen Level IV Comments: @ Ordering doctor for SUIV edited from to @ by KAREEM at 03/14/21 1237 @ Submitting doctor edited from to @ by KAREEM at 03/14/21 1237 HEADER OPERATION[place] [place] DIAGNOSIS: Anemia TISSUE SUBMITTED: A ? Gastric polyps x3, B ? Hepatic flexure polyps, C ? transverse colon polyps MICROSCOPIC DIAGNOSIS A. Gastric polyps, biopsy: Fragments of hyperplastic polyp. B. Colonic polyps at hepatic flexure, biopsy: Fragments of tubular adenoma. C. Transverse colon polyps, biopsy: Fragments of tubular adenoma. AM:viky 03/15/2021 COMMENT The results of immunohistochemistry for Helicobacter pylori will be reported separately ([id number]). MICROSCOPIC DESCRIPTION Slides are reviewed. GROSS DESCRIPTION A - Received in fixative is one container labeled with the patient's name and designated gastric polyp x3. The specimen consists of multiple irregular fragments of light schaefer soft tissue that in aggregate measure 1.5 x 0.6 x 0.3 cm. The specimen is totally submitted in one cassette. B - Received in fixative is one container labeled with the patient's name and designated hepatic flexure polyps. The specimen consists of multiple pieces of schaefer-pink polyp that in aggregate measure 1.5 x 1 x 0.4 cm. The specimen is totally submitted in one cassette. C - Received in fixative is one container labeled with the patient's name and designated transverse colon polyps. The specimen consists of multiple pieces of schaefer-pink polyp that in aggregate measure 1.5 x 1.5 x 0.5 cm. Multiple fragments of fecal material are also noted. The specimen is totally submitted in one cassette. / SJ:rg 03/14/2021 TC:5 CPT: 77741 x3
[2021-03-12] MEDS: Albuterol 2.5 MG/3 ML VIAL.NEB. INHALATION (02:20)
[2021-03-12] MEDS: Metoclopramide 10 MG/2 ML Vial 5 MG IV (04:48)
[2021-03-12] MEDS: hydrALAZINE 50 MG Tablet 100 MG PO (04:48)
[2021-03-12] MEDS: 0.9% Saline Lock 10 ML Syringe IV (04:52)
[2021-03-12 06:45] LABS: Absolute Lymphocyte Count 0.66 X10^3/uL (0.83-4.51); Absolute Neutrophil Count 7.8 X10^3/uL (2.0-7.7); Basophil# 0.04 X10^3/uL; Basophil% 0.4 % (0-1); Eosinophil# 0.08 X10^3/uL; Eosinophils% 0.8 % (0-5); Hematocrit 21.8 % (37-47); Hemoglobin 7.1 g/dL (12.0-15.0); Lymphocyte # 0.66 X10^3/ul (0.83-4.51); Lymphocyte % 6.9 % (19-41); Mean Corp Hgb Conc 32.6 g/dL (32-36); Mean Corpuscular Hgb 28.3 pg (27.0-32.0); Mean Corpuscular Volume 86.9 fL (81-99); Mean Platelet Vol. 9.6 fl (6.2-12.0); Monocyte# 0.74 X10^3/uL; Monocyte% 7.8 % (0-10); NRBC Flagged by Analyzer 0.2 % (0-5); Neutrophil # 7.84 X10^3/uL (2.7-7.7); Neutrophil % 82.6 % (47-70); Platelet Count 298 K/mm3 (150-450); RBC Distribution Width CV 16.8 % (11.6-14.6); RBC Distribution Width SD 52.5 fl (35.1-43.9); Red Blood Count 2.51 M/mm3 (4.2-5.4); White Blood Count 9.5 K/mm3 (4.4-11.0)
[2021-03-12 07:30] LABS: Anion Gap 17 (5-15); BUN 49 mg/dL (7-18); BUN/Creat Ratio 10.7 RATIO (10-20); Calcium,Total 7.7 mg/dL (8.5-10.1); Chloride 89 mmol/L (98-107); Creatinine, Serum 4.56 mg/dL (0.55-1.02); EST Glomerular Filtration Rate 10 mL/min (>60); Est Glom Filt Rate - Afr Amer 12 mL/min (>60); Estimated Creatinine Clearance 8.56 ml/min; Glucose 63 mg/dL (74-106); Potassium 2.7 mmol/L (3.5-5.1); Sodium Level 133 mmol/L (136-145)
--- NOTE | 2021-03-12 08:00 | IMM_PTH ---
PATIENT: JULISSA VEGA LOC: [facility] U#:[id number] AGE/SX: 75/F ROOM: [facility] RE03/10/[address]: Dr. Sarah Hillman DO : 1945 BED: 1 DIS: 03/12/2021 SPEC #: [id number] RECD: 03/14/21 12:35 STATUS: SOUShivani REQ #: [id number] JOSEPH: 03/12/21 08:[address]: Kameron Chan DEPT: IMMUNOHISTOCHEMISTRY RECD BY: Louise Restrepo ENTERED: 03/14/21 12:36 SP TYPE: IMMUNO OTHR DR: MD Dr. Sarah Olmstead DO Dr. Natthavat Tanphaichitr, MD Dr. William Lago, MD Tissues: A - Stomach, NOS Procedures: H Pylori (initial) PHYSICIAN & INSTITUTION [place] [address] SPECIMEN INFORMATION: Tissue Source: A ? Gastric polyps x3 Clinical Info: Lucretia Specimen Number: [id number] CPT code: 19069 METHODOLOGY: Deparaffinized sections of prefer/formalin-fixed tissue or PAP/DQ stained slides are incubated with monoclonal/polyclonal antibodies/oligonucleotide probes. Localization is made via biotin free immunoperoxidase method. Appropriate controls are performed and reacted as expected. Results on target cell population are indicated in the following table: RESULTS: ANTIBODY / CLONE RESULT Block A H Pylori (polyclonal) negative These tests were developed and their performance characteristics determined by [facility]. They may not have been cleared or approved by the U.S. Food and Drug Administration. The FDA has determined that such clearance or approval is not necessary. INTERPRETATION: A. Gastric polyps, biopsy: Negative for Helicobacter pylori organisms. AM:viky 03/15/2021
--- NOTE | 2021-03-12 08:02 | NURSING ---
Pt to Endo. O2 at 2l N/C.
--- NOTE | 2021-03-12 08:45 | OP.EGD_ITS ---
Patient Name: Shante Trujillo Procedure Date: 03/12/2021 8:10 AM Date of : 1945 Age: 75 Procedure: Upper GI endoscopy Indications: Iron deficiency anemia Providers: Kameron Chan DO Medicines: See the Anesthesia note for documentation of the administered medications Patient Profile: This is a 75 year old female. Refer to note in patient chart for documentation of history and physical. Patient has symptoms. She is status post colonoscopy for treatment of bleeding within the past three years. Complications: No immediate complications. Procedure: Pre-Anesthesia Assessment: - Prior to the procedure, a History and Physical was performed, and patient medications and allergies were reviewed. The risks and benefits of the procedure and the sedation options and risks were discussed with the patient. All questions were answered and informed consent was obtained. Patient identification and proposed procedure were verified by the physician in the pre-procedure area. Mental Status Examination: alert and oriented. Airway Examination: normal oropharyngeal airway and neck mobility. Respiratory Examination: clear to auscultation. CV Examination: normal. Prophylactic Antibiotics: The patient does not require prophylactic antibiotics. Prior Anticoagulants: The patient has taken no previous anticoagulant or antiplatelet agents. ASA Grade Assessment: II - A patient with mild systemic disease. After reviewing the risks and benefits, the patient was deemed in satisfactory condition to undergo the procedure. The anesthesia plan was to use moderate sedation / analgesia (conscious sedation). Immediately prior to administration of medications, the patient was re-assessed for adequacy to receive sedatives. The heart rate, respiratory rate, oxygen saturations, blood pressure, adequacy of pulmonary ventilation, and response to care were monitored throughout the procedure. The physical status of the patient was re-assessed after the procedure. After obtaining informed consent, the endoscope was passed under direct vision. Throughout the procedure, the patient's blood pressure, pulse, and oxygen saturations were monitored continuously. The gastroscope was introduced through the mouth, and advanced to the second part of duodenum. The upper GI endoscopy was accomplished without difficulty. The patient tolerated the procedure well. Moderate Sedation: Moderate (conscious) sedation was administered by the endoscopy nurse and supervised by the endoscopist. The patient's oxygen saturation, heart rate, blood pressure and response to care were monitored. Total physician intraservice time was 15 minutes. Scope In: 8:20:27 AM Scope Out: 8:37:58 AM Total Procedure Duration Time 0 hours 17 minutes 31 seconds Findings: There was a lot of red blood mixed with melanotic stool seen throughout the colon. Any exact source of the bleeding was not seen. It could be from an upper GI source. The examined esophagus was normal. Red blood was found on the lesser curvature of the stomach. Three 5 mm sessile polyps with bleeding and stigmata of recent bleeding were found on the lesser curvature of the stomach and in the prepyloric region of the stomach. The polyp was removed with a hot snare. Resection and retrieval were complete. Verification of patient identification for the specimen was done. Estimated blood loss was minimal. The second portion of the duodenum was normal. There was also some blood seen in the back throat believed to come from the nasopharynx. Impression: - Normal esophagus. - Red blood in the lesser curvature of the stomach. - Three gastric polyps. Resected and retrieved. - Normal second portion of the duodenum. Recommendation: - [facility]. - Use Protonix (pantoprazole) 40 mg PO BID for 8 weeks. - No aspirin, ibuprofen, naproxen, or other non-steroidal anti-inflammatory drugs for 5 days after polyp removal. -ENT evaluation for blood loss anemia from the nasopharynx Procedure Code(s): --- Professional --- 53113, Esophagogastroduodenoscopy, flexible, transoral; with removal of tumor(s), polyp(s), or other lesion(s) by snare technique 25853, 59, Moderate sedation services provided by the same physician or other qualified health patient care representative performing the diagnostic or therapeutic service that the sedation supports, requiring the presence of an independent trained observer to assist in the monitoring of the patient's level of consciousness and physiological status; initial 15 minutes of intraservice time, patient age 5 years or older CPT copyright 2017 [employer]. All rights reserved. The codes documented in this report are preliminary and upon hydraulic technician review may be revised to meet current compliance requirements. Kameron Chan DO 03/12/2021 8:45:06 AM This report has been signed electronically. Number of Addenda: 1 Note Initiated On: 03/12/2021 8:10 AM Addendum Number: 1 Addendum Date: 11/10/2021 6:10:57 AM MAC was used instead of moderate sedation for the patient. Kameron Chan DO 11/10/2021 6:11:01 AM This report has been signed electronically.
--- NOTE | 2021-03-12 08:45 | OP.CCLET_ITS ---
11/10/2021 Levi Laird Re : Upper GI endoscopy procedure for Shante Fuenteshaider Laird This procedure was performed on Friday, March 12, 2021. My impressions and recommendations are as follows: Impressions : - Normal esophagus. - Red blood in the lesser curvature of the stomach. - Three gastric polyps. Resected and retrieved. - Normal second portion of the duodenum. Recommendations : - Return patient to [facility] care. - Use Protonix (pantoprazole) 40 mg PO BID for 8 weeks. - No aspirin, ibuprofen, naproxen, or other non-steroidal anti-inflammatory drugs for 5 days after polyp removal. -ENT evaluation for blood loss anemia from the nasopharynx My findings are described in the full procedure note, which is enclosed. If I can be of further assistance, please feel free to contact me at . Sincerely, Kameron Chan, 03/12/2021 8:45:06 AM This report has been signed electronically.
--- NOTE | 2021-03-12 09:48 | OP.COLON_ITS ---
Patient Name: Shante Trujillo Procedure Date: 03/12/2021 8:43 AM Date of : 1945 Age: 75 Procedure: Colonoscopy Indications: Acute post hemorrhagic anemia, Iron deficiency anemia secondary to chronic blood loss, Iron deficiency anemia Providers: Kameron Chan DO Medicines: See the Anesthesia note for documentation of the administered medications Patient Profile: This is a 75 year old female. Refer to note in patient chart for documentation of history and physical. Patient has symptoms. She is status post colonoscopy for treatment of bleeding within the past three years. Last Colonoscopy: none. The patient's first colonoscopy is today. Complications: No immediate complications. Procedure: Pre-Anesthesia Assessment: - Prior to the procedure, a History and Physical was performed, and patient medications and allergies were reviewed. The risks and benefits of the procedure and the sedation options and risks were discussed with the patient. All questions were answered and informed consent was obtained. Patient identification and proposed procedure were verified by the physician in the pre-procedure area. Mental Status Examination: alert and oriented. Airway Examination: normal oropharyngeal airway and neck mobility. Respiratory Examination: clear to auscultation. CV Examination: normal. Prophylactic Antibiotics: The patient does not require prophylactic antibiotics. Prior Anticoagulants: The patient has taken no previous anticoagulant or antiplatelet agents. ASA Grade Assessment: II - A patient with mild systemic disease. After reviewing the risks and benefits, the patient was deemed in satisfactory condition to undergo the procedure. The anesthesia plan was to use moderate sedation / analgesia (conscious sedation). Immediately prior to administration of medications, the patient was re-assessed for adequacy to receive sedatives. The heart rate, respiratory rate, oxygen saturations, blood pressure, adequacy of pulmonary ventilation, and response to care were monitored throughout the procedure. The physical status of the patient was re-assessed after the procedure. After I obtained informed consent, the scope was passed under direct vision. Throughout the procedure, the patient's blood pressure, pulse, and oxygen saturations were monitored continuously. The Colonoscope was introduced through the anus and advanced to the cecum, identified by appendiceal orifice and ileocecal valve. The colonoscopy was performed without difficulty. The patient tolerated the procedure well. The quality of the bowel preparation was fair. Moderate Sedation: Moderate (conscious) sedation was administered by the endoscopy nurse and supervised by the endoscopist. The patient's oxygen saturation, heart rate, blood pressure and response to care were monitored. Total physician intraservice time was 15 minutes. Scope In: 8:47:48 AM Scope Withdrawal Time 0 hours 19 minutes 0 seconds Scope Out: 9:37:04 AM Total Procedure Duration Time 0 hours 49 minutes 16 seconds Findings: The perianal and digital rectal examinations were normal. 15 sessile polyps were found in the transverse colon, hepatic flexure and cecum. The polyps were 1 to 3 mm in size. These polyps were removed with a hot snare. Resection and retrieval were complete. Verification of patient identification for the specimen was done. Estimated blood loss was minimal. Three small localized angiodysplastic lesions with bleeding were found in the sigmoid colon and in the transverse colon. Coagulation for hemostasis using argon beam at 0.3 liters/minute and 20 kern was successful. Estimated blood loss was minimal. Semi-liquid stool was found in the recto-sigmoid colon, in the sigmoid colon, in the transverse colon, at the hepatic flexure and in the cecum, interfering with visualization. Lavage of the area was performed using greater than 500 mL of sterile water, resulting in clearance with fair visualization. Impression: - Preparation of the colon was fair. - 15 1 to 3 mm polyps in the transverse colon, at the hepatic flexure and in the cecum, removed with a hot snare. Resected and retrieved. - Three bleeding colonic angiodysplastic lesions. Treated with argon beam coagulation. - Stool in the recto-sigmoid colon, in the sigmoid colon, in the transverse colon, at the hepatic flexure and in the cecum. Recommendation: - Return patient to [facility] for [facility] care. - Resume regular diet. - No aspirin, ibuprofen, naproxen, or other non-steroidal anti-inflammatory drugs for 7 days. - Repeat colonoscopy in 6 months for surveillance of multiple polyps. Procedure Code(s): --- Professional --- 02787, 59, Colonoscopy, flexible; with control of bleeding, any method 56588, Colonoscopy, flexible; with removal of tumor(s), polyp(s), or other lesion(s) by snare technique 54495, 59, Moderate sedation services provided by the same physician or other qualified health daycare assistant performing the diagnostic or therapeutic service that the sedation supports, requiring the presence of an independent trained observer to assist in the monitoring of the patient's level of consciousness and physiological status; initial 15 minutes of intraservice time, patient age 5 years or older CPT copyright 2017 [employer]. All rights reserved. The codes documented in this report are preliminary and upon wheel buffer review may be revised to meet current compliance requirements. Kameron Chan DO 03/12/2021 9:47:45 AM This report has been signed electronically. Number of Addenda: 1 Note Initiated On: 03/12/2021 8:43 AM Addendum Number: 1 Addendum Date: 11/10/2021 6:11:10 AM MAC was used instead of moderate sedation for the patient. Kameron Chan DO 11/10/2021 6:11:17 AM This report has been signed electronically.
--- NOTE | 2021-03-12 09:48 | OP.CCLET_ITS ---
11/10/2021 Levi Laird Re : Colonoscopy procedure for Shante Fuenteshaider Laird This procedure was performed on Friday, March 12, 2021. My impressions and recommendations are as follows: Impressions : - Preparation of the colon was fair. - 15 1 to 3 mm polyps in the transverse colon, at the hepatic flexure and in the cecum, removed with a hot snare. Resected and retrieved. - Three bleeding colonic angiodysplastic lesions. Treated with argon beam coagulation. - Stool in the recto-sigmoid colon, in the sigmoid colon, in the transverse colon, at the hepatic flexure and in the cecum. Recommendations : - Return patient to [facility]. - Resume regular diet. - No aspirin, ibuprofen, naproxen, or other non-steroidal anti-inflammatory drugs for 7 days. - Repeat colonoscopy in 6 months for surveillance of multiple polyps. My findings are described in the full procedure note, which is enclosed. If I can be of further assistance, please feel free to contact me at . Sincerely, Kameron Chan, 03/12/2021 9:47:45 AM This report has been signed electronically.
--- NOTE | 2021-03-12 10:49 | PN.RENAL_ITS ---
Subjective Subjective Following for ESRD. The patient refuses dialysis today despite knowing the consequences of missing dialysis for more than 3 days. She denies chest pain, shortness of breath at rest, or nausea. Objective Data Objective Data Vital Signs: Vital Signs Temp Pulse Resp BP Pulse Ox 97.4 F L 83 20 H 173/60 H 100 03/12/21 09:59 03/12/21 09:59 03/12/21 09:59 03/12/21 09:59 03/12/21 09:59 Oxygen Flow Rate (L/min) 2 Oxygen Delivery Method Nasal Cannula Weight: 72.4 kg Body Mass Index (BMI) 29.2 Intake & Output: Intake and Output for Last 24 Hours 03/10/21 03/11/21 03/12/21 23:59 23:59 23:59 Intake Total 0 / 0 1080 / 2080 1000 / 1000 Output Total 500 / 500 Balance 0 / 0 580 / 1580 1000 / 1000 Lab / Micro Data Result Diagrams: 03/12/21 06:30 03/12/21 06:30 Labs: Laboratory Results - last 24 hr 03/09/21 20:15: Hep Bs Antigen Non-Reactive 03/09/21 22:40: Crossmatch See Detail 03/12/21 06:30: Sodium 133 L, Potassium 2.7 L*, Chloride 89 L, Carbon Dioxide 27.0, Anion Gap 17 H, BUN 49 H, Creatinine 4.56 H, Estim Creat Clear Calc 8.56, Est GFR (MDRD) Af Amer 12 L, Est GFR (MDRD) Non-Af 10 L, BUN/Creatinine Ratio 10.7, Glucose 63 L, Calcium 7.7 L 03/12/21 06:30: WBC 9.5, RBC 2.51 L, Hgb 7.1 L, Hct 21.8 L, MCV 86.9, MCH 28.3, MCHC 32.6, RDW Std Deviation 52.5 H, RDW Coeff of Becca 16.8 H, Plt Count 298, MPV 9.6, Immature Gran % (Auto) 1.500 H, Neut % (Auto) 82.6 H, Lymph % (Auto) 6.9 L, Mcintosh % (Auto) 7.8, Eos % (Auto) 0.8, Baso % (Auto) 0.4, Absolute Neuts (auto) 7.8 H, Absolute Lymphs (auto) 0.66 L, Nucleated RBC % 0.2 Micro: Microbiology 03/11/21 Unknown Nasal Secretion SARS-CoV-2 Antigen (Rapid) - Final Rhythm Strip Rhythm Strip: Sinus Rhythm Rate: 76 Ectopy: PAC(s) Physical Exam Narrative Const: A&Ox3 Respiratory: Lung sounds clear anteriorly and posteriorly Extremity: No pitting edema noted bilateral lower leg Tunneled HD catheter right chest dressing clean dry and intact Assessment & Plan Assessment/Plan (1) ESRD (end stage renal disease) on dialysis: PLAN: -The patient refuses to dialyze today. She was not dialyzed yesterday either. Her last dialysis was on 03/09/2021. I explained to the patient possible consequences of missing dialysis for more than 3 days such as volume overload, heart failure, uncontrolled hypertension, hyperkalemia, and . -She is willing to accept all these consequences and forego dialysis today. (2) Anemia: PLAN: -Hemoglobin is low but stable. -Hemoglobin will be monitored at outpatient dialysis unit as well. -Continue KALPANA with dialysis. (3) Essential hypertension: PLAN: -BP is high. Dialysis with ultrafiltration would have helped. Unfortunately, the patient refuses dialysis despite explanation as mentioned above. -Continue current antihypertensives. (4) Hypokalemia: PLAN: -Potassium is low today at 2.7 mmol/L. This is likely due to colonoscopy prep. -This is somewhat protective since she refuses dialysis today. However, potassi um can accumulate quickly as well. We could also have adjusted dialysate to help with hyperkalemia. -Agree with potassium chloride x1. -Potassium should be rechecked at outpatient kidney center.
--- NOTE | 2021-03-12 11:11 | PCM.DC ---
Discharge Instructions Diet Discharge Diet: No restrictions Activity Discharge Activity: Return to Normal Activity Weight Bearing Status: Weight bearing as tolerated Dressing / Incision Call your doctor if you observe: Fever of 101 or Higher, Numbness or Tingling, Shortness of breath, Dizziness, Chest pain, Increased palpitations (irregular heartbeat) and Calf discomfort Follow Up Care Please Follow Up With: Primary care provider When: Within the next two weeks. Test Results: Test results from this visit will be discussed in further detail at your follow-up appointment, if applicable. Discharge Plan Admission Admit Date/Time: 03/10/21 11:30 Primary Reason for Your Visit: Weakness/GI bleed Attending Provider: Sarah Hillman Primary Care Provider: Levi Laird Consulting Providers: Yarely Sandra Instructions Additional Instructions / Restrictions: * No aspirin, Ibuprofen, naproxen, or other non-steroidal anti-inflammatory drugs for 7 days. * Repeat colonoscopy for surveillance of polyps in 6 months. * You declined dialysis in the hospital, resume dialysis on Sunday in accordance with your regular Sunday, Sunday, Sunday schedule. Discharge Orders/Prescriptions Prescriptions: Continued prednisone 2.5 mg tablet 2.5 mg PO DAILY RF: 0 Symbicort 160-4.5 mcg/actuation HFA aerosol inhaler 2 puff INHALATION BID Qty: 1 RF: 11 albuterol sulfate [ProAir HFA] 90 mcg/actuation HFA aerosol inhaler 2 puff inhalation Q6H PRN (Reason: sob) RF: 0 metolazone 5 mg tablet 5 mg PO DAILY PRN (Reason: Weight Gain) RF: 0 amitriptyline 100 MG tablet 100 mg PO QHS RF: 0 atorvastatin 80 MG tablet 80 mg PO DAILY RF: 0 amlodipine 10 MG tablet 10 mg PO DAILY RF: 0 omeprazole 40 MG capsule,delayed release(DR/EC) 40 mg PO DAILY RF: 0 doxazosin 8 MG tablet 8 mg PO QHS RF: 0 hydralazine 100 mg tablet 100 mg PO TID RF: 0 acetaminophen 325 MG tablet 650 mg PO Q6H PRN PRN (Reason: pain) RF: 0 ascorbic acid (vitamin C) 500 MG tablet 500 mg PO DAILY@0800,1700 RF: 0 nitroglycerin 0.4 MG tablet, sublingual 0.4 mg SL Q5M PRN (Reason: CHEST PAIN) RF: 0 carvedilol 6.25 MG tablet 6.25 mg PO BID RF: 0 bumetanide 2 MG tablet 2 mg PO DAILY RF: 0 benzonatate 100 MG capsule 200 mg PO TID PRN PRN (Reason: Cough) Qty: 20 RF: 0 furosemide 40 MG tablet 40 mg PO DAILY Qty: 30 RF: 0 albuterol sulfate 1.25 mg/3 mL solution for nebulization 1.25 mg INHALATION 4X/DAY Qty: 360 RF: 6 isosorbide mononitrate 60 mg tablet extended release 24 hr 60 mg PO DAILY Qty: 90 RF: 6 Held aspirin 81 MG tablet 81 mg PO DAILY RF: 0 Hold Instructions: Resume on 03/20/21. Referrals / Follow Up: Kameron Chan DO [STAFF PHYSICIAN] - See Referral Note (Make appointment with Dr. Chan in 6 months for surveillance of multiple polyps seen on Colonoscopy. ) Levi Laird MD [Primary Care Provider] - Within 2 Weeks Disposition Disposition (needs filled in before D/C Order can be placed): Home, Self Care
[2021-03-12] MEDS: Potassium Chloride 10mEq/100mL 10 MEQ/100 ML IV.SOLN. 100 MEQ IV BOLUS ×4 (11:39→14:47)
[2021-03-12] MEDS: predniSONE 5 MG Tablet 2.5 MG PO (11:50)
[2021-03-12] MEDS: Ascorbic Acid 500 MG Tablet PO (11:51)
[2021-03-12] MEDS: Potassium Chloride Oral Tablet 20 MEQ 40 MEQ PO (11:52)
[2021-03-12] MEDS: Aspirin E.C. 81 MG Tablet PO (11:53)
[2021-03-12] MEDS: Furosemide 40 MG Tablet PO (11:54)
[2021-03-12] MEDS: Bumetanide 2 MG Tablet PO (11:54)
[2021-03-12] MEDS: Pantoprazole Sodium 40 MG Tablet PO (11:54)
[2021-03-12] MEDS: Isosorbide Mononitrate 60 MG Tablet PO (11:54)
[2021-03-12] MEDS: Carvedilol 6.25 MG Tablet PO (11:54)
[2021-03-12] MEDS: amLODIPine 10 MG Tablet PO (11:55)
--- NOTE | 2021-03-12 14:45 | PCM.DC.SUM ---
Documented by User: Chicho SARABIA 03/12/21 14:55 Providers Date of Admission: 03/10/21 Primary Care Physician: Dr. Levi Laird MD Consultations 03/09/21 23:17 Consult: Nephrology Routine Consulting Provider: Yarely Sandra Reason for Consult: ESRD on dialysis (m,w,f) EMERGENT Consult: No Notified: Yes Date Notified: 03/10/21 Time Notified: 08:15 Method of Notification: Answering Service 03/10/21 08:02 Consult: Gastroenterology Routine Consulting Provider: [facility] Reason for Consult: anemia EMERGENT Consult: No Notified: Yes Date Notified: 03/10/21 Time Notified: 08:14 Method of Notification: Text Reason For Visit: GENERAL WEAKNESS/ SYMPTOMATIC ANEMIA Diagnosis Discharge Diagnosis (1) ESRD (end stage renal disease) on dialysis: Status: Acute Code(s): N18.6 - End stage renal disease; Z99.2 - Dependence on renal dialysis (2) Anemia: Status: Acute Code(s): D64.9 - Anemia, unspecified (3) Essential hypertension: Status: Chronic Code(s): I10 - Essential (primary) hypertension (4) Hypokalemia: Status: Acute Code(s): E87.6 - Hypokalemia Medications at Discharge Home Medications amitriptyline 100 mg PO QHS 04/09/13 aspirin 81 mg PO DAILY 10/25/17 atorvastatin 80 mg PO DAILY 10/25/17 amlodipine 10 mg PO DAILY 06/01/18 doxazosin 8 mg PO QHS 08/20/18 omeprazole 40 mg PO DAILY 08/20/18 acetaminophen 650 mg PO Q6H PRN PRN tab 12/06/18 ascorbic acid (vitamin C) 500 mg PO DAILY@0800,1700 tab 12/06/18 hydralazine 100 mg tablet 100 mg PO TID tab 01/01/19 benzonatate 200 mg PO TID PRN PRN #20 cap 03/14/19 bumetanide 2 mg PO DAILY 03/14/19 carvedilol 6.25 mg PO BID 03/14/19 nitroglycerin 0.4 mg SL Q5M PRN 03/14/19 furosemide 40 mg PO DAILY #30 tab 08/27/19 albuterol sulfate 1.25 mg/3 mL solution for nebulization 1.25 mg INHALATION 4X/DAY #360 ml 08/17/20 albuterol sulfate 90 mcg/actuation aerosol inhaler 2 puff INHALATION Q6H PRN 09/30/20 metolazone 5 mg tablet 5 mg PO DAILY PRN tab 09/30/20 prednisone 2.5 mg tablet 2.5 mg PO DAILY tab 09/30/20 isosorbide mononitrate 60 mg tablet,extended release 24 hr 60 mg PO DAILY #90 tab 11/09/20 budesonide-formoterol [Symbicort] 2 puff INHALATION BID 03/12/21 pantoprazole 40 mg PO BID #120 tab 03/12/21 Hospital Course Procedures Colonoscopy Summary of Care Provided Minutes Spent on Discharge: 25 Hospital Course: Disposition: Patient to discharge home. 1) acute symptomatic anemia on chronic normocytic anemia Hemoglobin stable, currently 7.1. EGD on 03/12/2021 demonstrated multiple polyps in the transverse colon and 3 bleeding angiodysplastic lesions that were treated with argon coagulation. Recommendation from GI is no aspirin, ibuprofen, naproxen or other NSAIDs for 7 days and to repeat colonoscopy in 6 months for surveillance of polyps noted above. Continue omeprazole at home, follow-up with primary care provider within the next 2 weeks. Follow-up with Dr. Chan in the next 6 months for follow-up as noted above. 2) ESRD Patient was last dialyzed on 03/09 in accordance with MWF schedule. Patient was scheduled to be dialyzed on day of discharge, however patient refused. Patient was advised by hospital medicine team and die set up worker about risk of missing dialysis to include worsening of her ESRD, heart failure, hypertension and electrolyte imbalances and possible . Patient acknowledged risks, but still wanted to proceed with discharge. Patient is to resume dialysis on 03/14/2021 in accordance with MWF schedule. 3)Left foot fracture; second digit Patient suffered a fall on the evening of 03/10/2021. Ecchymosis and tenderness present on the dorsal aspect of the left second toe, although no deformity is noted. Patient was offered imaging but declined. No need for ongoing therapy assessed by PT/OT evaluation. Patient seen by Chicho Lanza PA-C, under the supervision of Dr Hillman. Time spent on patient care: 25 minutes. Physical Exam Narrative Patient is a 75-year-old female comfortably resting in a chair, alert and orient x3. Denies development of any new symptoms overnight. Does not appear in acute distress. Const alert, oriented x3 and no apparent distress HEENT normocephalic, head/scalp atraumatic and hearing grossly normal bilaterally Eyes PERRL, EOMs intact bilaterally and conjunctivae normal Neck no lymphadenopathy, supple and no JVD Resp normal respiratory effort, no retractions and no use of accessory muscles Cardio regular rate, regular rhythm, no murmurs and no JVD GI normal to inspection, nondistended, normoactive bowel sounds, soft to palpation and non-tender Extremity normal to inspection, full ROM and no clubbing, cyanosis or edema Skin Skin Narrative: Ecchymosis and tenderness noted about the dorsal aspect of left second toe. No obvious deformity. Neuro CN's II-XII intact bilaterally Psych affect normal Weight / BMI Weight Weight: 159 lb 9.835 oz Body Mass Index (BMI) 29.2 ABG / Lab / Microbiology Data Result Diagrams: 03/12/21 06:30 03/12/21 06:30 Laboratory: Laboratory Results - last 24 hr 03/12/21 06:30: Sodium 133 L, Potassium 2.7 L*, Chloride 89 L, Carbon Dioxide 27.0, Anion Gap 17 H, BUN 49 H, Creatinine 4.56 H, Estim Creat Clear Calc 8.56, Est GFR (MDRD) Af Amer 12 L, Est GFR (MDRD) Non-Af 10 L, BUN/Creatinine Ratio 10.7, Glucose 63 L, Calcium 7.7 L 03/12/21 06:30: WBC 9.5, RBC 2.51 L, Hgb 7.1 L, Hct 21.8 L, MCV 86.9, MCH 28.3, MCHC 32.6, RDW Std Deviation 52.5 H, RDW Coeff of Becca 16.8 H, Plt Count 298, MPV 9.6, Immature Gran % (Auto) 1.500 H, Neut % (Auto) 82.6 H, Lymph % (Auto) 6.9 L, [place] % (Auto) 7.8, Eos % (Auto) 0.8, Baso % (Auto) 0.4, Absolute Neuts (auto) 7.8 H, Absolute Lymphs (auto) 0.66 L, Nucleated RBC % 0.2 Microbiology: Microbiology 03/11/21 Unknown Nasal Secretion SARS-CoV-2 Antigen (Rapid) - Final D/C Instructions Discharge Diet: No restrictions Weight Bearing Status: Weight bearing as tolerated Call your doctor if you observe: Fever of 101 or Higher, Numbness or Tingling, Shortness of breath, Dizziness, Chest pain, Increased palpitations (irregular heartbeat) and Calf discomfort Please Follow Up With: Primary care provider When: Within the next two weeks. Meaningful Use Info Meaningful Use Diagnoses (Choose all that apply): None applicable Discharge Plan Admission Admit Date/Time: 03/10/21 11:30 Primary Reason for Your Visit: Weakness/GI bleed Attending Provider: Sarah Hillman Primary Care Provider: Levi Laird Consulting Providers: Yarely Sandra Instructions Additional Instructions / Restrictions: * No aspirin, Ibuprofen, naproxen, or other non-steroidal anti-inflammatory drugs for 7 days. * Repeat colonoscopy for surveillance of polyps in 6 months. * You declined dialysis in the hospital, resume dialysis on Sunday in accordance with your regular Sunday, Sunday, Sunday schedule. * Hold Omeprazole, initiate Pantoprazole for 8 weeks. Discharge Orders/Prescriptions Prescriptions: New pantoprazole 40 mg Tablet,Delayed Release (Dr/Ec) 40 mg PO BID Qty: 120 RF: 0 Continued prednisone 2.5 mg tablet 2.5 mg PO DAILY RF: 0 albuterol sulfate [ProAir HFA] 90 mcg/actuation HFA aerosol inhaler 2 puff inhalation Q6H PRN (Reason: sob) RF: 0 metolazone 5 mg tablet 5 mg PO DAILY PRN (Reason: Weight Gain) RF: 0 amitriptyline 100 MG tablet 100 mg PO QHS RF: 0 atorvastatin 80 MG tablet 80 mg PO DAILY RF: 0 amlodipine 10 MG tablet 10 mg PO DAILY RF: 0 doxazosin 8 MG tablet 8 mg PO QHS RF: 0 hydralazine 100 mg tablet 100 mg PO TID RF: 0 acetaminophen 325 MG tablet 650 mg PO Q6H PRN PRN (Reason: pain) RF: 0 ascorbic acid (vitamin C) 500 MG tablet 500 mg PO DAILY@0800,1700 RF: 0 nitroglycerin 0.4 MG tablet, sublingual 0.4 mg SL Q5M PRN (Reason: CHEST PAIN) RF: 0 carvedilol 6.25 MG tablet 6.25 mg PO BID RF: 0 bumetanide 2 MG tablet 2 mg PO DAILY RF: 0 benzonatate 100 MG capsule 200 mg PO TID PRN PRN (Reason: Cough) Qty: 20 RF: 0 furosemide 40 MG tablet 40 mg PO DAILY Qty: 30 RF: 0 albuterol sulfate 1.25 mg/3 mL solution for nebulization 1.25 mg INHALATION 4X/DAY Qty: 360 RF: 6 isosorbide mononitrate 60 mg tablet extended release 24 hr 60 mg PO DAILY Qty: 90 RF: 6 Held aspirin 81 MG tablet 81 mg PO DAILY RF: 0 Hold Instructions: Resume on 03/20/21. omeprazole 40 MG capsule,delayed release(DR/EC) 40 mg PO DAILY RF: 0 Hold Instructions: Resume on 05/08/21. No Action budesonide-formoterol [Symbicort] 160-4.5 mcg/actuation HFA aerosol inhaler 2 puff INHALATION BID RF: 0 Referrals / Follow Up: Sandoval Hall MD [STAFF PHYSICIAN] - Within 2 Weeks Kameron Chan DO [STAFF PHYSICIAN] - See Referral Note (Make appointment with Dr. Chan in 6 months for surveillance of multiple polyps seen on Colonoscopy. ) Levi Laird MD [Primary Care Provider] - Within 2 Weeks Disposition Disposition (needs filled in before D/C Order can be placed): Home, Self Care Documented by User: Dr. Sarah Hillman DO 03/12/21 17:51 Providers Date of Admission: 03/10/21 Reason For Visit: GENERAL WEAKNESS/ SYMPTOMATIC ANEMIA Medications at Discharge Home Medications amitriptyline 100 mg PO QHS 04/09/13 aspirin 81 mg PO DAILY 10/25/17 atorvastatin 80 mg PO DAILY 10/25/17 amlodipine 10 mg PO DAILY 06/01/18 doxazosin 8 mg PO QHS 08/20/18 omeprazole 40 mg PO DAILY 08/20/18 acetaminophen 650 mg PO Q6H PRN PRN tab 12/06/18 ascorbic acid (vitamin C) 500 mg PO DAILY@0800,1700 tab 12/06/18 hydralazine 100 mg tablet 100 mg PO TID tab 01/01/19 benzonatate 200 mg PO TID PRN PRN #20 cap 03/14/19 bumetanide 2 mg PO DAILY 03/14/19 carvedilol 6.25 mg PO BID 03/14/19 nitroglycerin 0.4 mg SL Q5M PRN 03/14/19 furosemide 40 mg PO DAILY #30 tab 08/27/19 albuterol sulfate 1.25 mg/3 mL solution for nebulization 1.25 mg INHALATION 4X/DAY #360 ml 08/17/20 albuterol sulfate 90 mcg/actuation aerosol inhaler 2 puff INHALATION Q6H PRN 09/30/20 metolazone 5 mg tablet 5 mg PO DAILY PRN tab 09/30/20 prednisone 2.5 mg tablet 2.5 mg PO DAILY tab 09/30/20 isosorbide mononitrate 60 mg tablet,extended release 24 hr 60 mg PO DAILY #90 tab 11/09/20 budesonide-formoterol [Symbicort] 2 puff INHALATION BID 03/12/21 pantoprazole 40 mg PO BID #120 tab 03/12/21 Hospital Course Summary of Care Provided Minutes Spent on Discharge: 42 Hospital Course: Mrs. Trujillo is a 75-year-old female who presented to the emergency department was [facility] on 03/09/2021 with severe weakness. Her son-in-law presented to the hospital with her and reported that she had return from dialysis on the same day as presentation and after returning from dialysis she complained of some restless legs and took her prescribed gabapentin. After that time she was so weak that her son-in-law had to carry her. She evidently has had issues with gabapentin in the past but her son-in-law reports that they keep prescribing it for her and then taking her off of it. We did discuss this and I recommend she stay off of gabapentin and he agreed. In the emergency department she was found to be markedly anemic with a hemoglobin of 6.0 and 2 units of packed red blood cells were given. She evidently has had issues with anemia in the past and required transfusions. She had colonoscopy remotely but indicates she had multiple preps for colonoscopy and would go to the colonoscopy suite and then they did cancel her scope secondary to elevated blood pressure so it has been an extensive period of time since her most recent scope. She was agreeable to colonoscopy in the hospital and was evaluated by gastroenterology on 03/10/2021. Given the fact that she has end-stage renal disease she was also followed by nephrology during her hospitalization. She typically gets dialysis Sunday. Her last dialysis was 03/09/2021 when she was set to be dialyzed on the day of discharge but refused dialysis at that time. The risk and benefits/consequences were discussed with her by both myself and nephrology but she was willing to accept the consequences and forego dialysis on the day of discharge. She indicated she would follow-up with her regular dialysis session on Sunday. With regards to her anemia she was transfused 2 units as noted above and corrected to 7.4. An EGD and colonoscopy were able to be performed on 03/12/2021. They were originally scheduled for 03/11/2021 but her bowel prep was not adequate and therefore had to be delayed after further bowel prep. Her EGD showed a normal esophagus with blood in the lesser curvature of the stomach and 3 gastric polyps that were resected and retrieved, the duodenum was normal to the second portion. With regards to this it was recommended she use Protonix 40 mg p.o. twice daily for 8 weeks and then resume her regular omeprazole. We recommended no aspirin, ibuprofen, naproxen or other nonsteroidal anti-inflammatory drugs for at least 5 days after polyp removal. The blood in the stomach was felt to be related to nasopharyngeal bleeding as no source of active bleeding was noted in the upper GI tract. Her colonoscopy showed fair prep with 15 1 to 3 mm polyps in the transverse colon at the hepatic flexure and in the cecum that were removed with hot snare, resected and retrieved. She had 3 bleeding colonic angiodysplastic lesions that were treated with argon beam coagulation. It was recommended she resume a regular diet and avoid nonsteroidals for 7 days and have a repeat colonoscopy in 6 months for surveillance of multiple polyps. Polyps were sent for pathology. Unfortunately during her hospitalization she tried to get up independently and tripped. She had a fall where she sustained no significant injury other than what appears to be a fractured second digit on her left foot. She had significant ecchymosis and pain with palpation at the tip of the left digit. X-ray was offered but deferred by the patient. We did recommend katarina taping that toe if it caused significant pain. She was evaluated by physical therapy and it did not appear to significantly alter her gait and no further therapy or assistive devices were recommended. She is to follow-up with gastroenterology in 2 weeks. She is to follow-up with nephrology as scheduled. And we recommended follow-up with her PCP in the next 1 to 2 weeks as able. Discharge diagnoses: Acute on chronic anemia GI bleed secondary to colonic angiodysplastic lesions Nasopharyngeal bleeding Fall Left foot second toe fracture Generalized weakness Hypokalemia-resolved End-stage renal disease-HD dependent Hyponatremia-chronic DM-2 Hyperlipidemia Hypertension COPD PAH who group 2 Aortic valve stenosis Diastolic dysfunction CAD ELAINE Restless leg syndrome Chronic steroid use Physical Exam Const alert, no apparent distress and well nourished Constitutional Narrative: Overweight older white female sitting up in bed, has just gotten off back from endoscopy suite, appears comfortable, nontoxic, nursing at bedside, patient indicating she starved General Appearance: cooperative, comfortable, well kempt and well developed Orientation / Consciousness: awake Exam Limitations: no limitations Nutritional Appearance: overweight HEENT normocephalic, head/scalp atraumatic, hearing grossly normal bilaterally and moist oral mucous membranes HEENT Narrative: Dentures in place, no thrush, Mallampati 2 Eyes PERRL and EOMs intact bilaterally Eyes Narrative: Conjunctiva are pale bilaterally, no scleral icterus Neck no lymphadenopathy, supple and no JVD Neck Narrative: Trachea midline, no thyroid enlargement Resp normal respiratory effort, no retractions, no use of accessory muscles and clear to auscultation bilaterally Auscultation: Negative for crackles, rales, rhonchi or wheezes Cardio regular rate, regular rhythm, S1 normal heart sound, S2 normal heart sound, no rub, no gallops, no clicks and no JVD; Negative for no murmurs Cardio Narrative: 3 out of 6 systolic murmur loudest at the right upper sternal border and radiates to bilateral carotids GI normal to inspection, nondistended, normoactive bowel sounds, soft to palpation, non-tender and non-distended Palpation: tender epigastric (Mild) Extremity no clubbing, cyanosis or edema Extremity Narrative: Second toe on left foot distal with ecchymosis and tenderness but no displacement, tender Skin no rashes or lesions noted, no wounds, skin turgor normal and no jaundice Skin Narrative: Pale Neuro oriented x3, CN's II-XII intact bilaterally, moves all extremities and no focal motor deficits Sensorium / Orientation: awake and alert Speech: speech normal Psych affect normal Psych Narrative: Very pleasant ABG / Lab / Microbiology Data Result Diagrams: 03/12/21 06:30 03/12/21 06:30 Discharge Plan Admission Admit Date/Time: 03/10/21 11:30 Primary Reason for Your Visit: Weakness/GI bleed Attending Provider: Sarah Hillman Primary Care Provider: Levi Laird Consulting Providers: Yarely Sandra Instructions Additional Instructions / Restrictions: * No aspirin, Ibuprofen, naproxen, or other non-steroidal anti-inflammatory drugs for 7 days. * Repeat colonoscopy for surveillance of polyps in 6 months. * You declined dialysis in the hospital, resume dialysis on Sunday in accordance with your regular Sunday, Sunday, Sunday schedule. * Hold Omeprazole, initiate Pantoprazole for 8 weeks. Discharge Orders/Prescriptions Prescriptions: New pantoprazole 40 mg Tablet,Delayed Release (Dr/Ec) 40 mg PO BID Qty: 120 RF: 0 Continued prednisone 2.5 mg tablet 2.5 mg PO DAILY RF: 0 albuterol sulfate [ProAir HFA] 90 mcg/actuation HFA aerosol inhaler 2 puff inhalation Q6H PRN (Reason: sob) RF: 0 metolazone 5 mg tablet 5 mg PO DAILY PRN (Reason: Weight Gain) RF: 0 amitriptyline 100 MG tablet 100 mg PO QHS RF: 0 atorvastatin 80 MG tablet 80 mg PO DAILY RF: 0 amlodipine 10 MG tablet 10 mg PO DAILY RF: 0 doxazosin 8 MG tablet 8 mg PO QHS RF: 0 hydralazine 100 mg tablet 100 mg PO TID RF: 0 acetaminophen 325 MG tablet 650 mg PO Q6H PRN PRN (Reason: pain) RF: 0 ascorbic acid (vitamin C) 500 MG tablet 500 mg PO DAILY@0800,1700 RF: 0 nitroglycerin 0.4 MG tablet, sublingual 0.4 mg SL Q5M PRN (Reason: CHEST PAIN) RF: 0 carvedilol 6.25 MG tablet 6.25 mg PO BID RF: 0 bumetanide 2 MG tablet 2 mg PO DAILY RF: 0 benzonatate 100 MG capsule 200 mg PO TID PRN PRN (Reason: Cough) Qty: 20 RF: 0 furosemide 40 MG tablet 40 mg PO DAILY Qty: 30 RF: 0 albuterol sulfate 1.25 mg/3 mL solution for nebulization 1.25 mg INHALATION 4X/DAY Qty: 360 RF: 6 isosorbide mononitrate 60 mg tablet extended release 24 hr 60 mg PO DAILY Qty: 90 RF: 6 Held aspirin 81 MG tablet 81 mg PO DAILY RF: 0 Hold Instructions: Resume on 03/20/21. omeprazole 40 MG capsule,delayed release(DR/EC) 40 mg PO DAILY RF: 0 Hold Instructions: Resume on 05/08/21. No Action budesonide-formoterol [Symbicort] 160-4.5 mcg/actuation HFA aerosol inhaler 2 puff INHALATION BID RF: 0 Referrals / Follow Up: Sandoval Hall MD [STAFF PHYSICIAN] - Within 2 Weeks Kameron Chan DO [STAFF PHYSICIAN] - See Referral Note (Make appointment with Dr. Chan in 6 months for surveillance of multiple polyps seen on Colonoscopy. ) Levi Laird MD [Primary Care Provider] - Within 2 Weeks Disposition Disposition (needs filled in before D/C Order can be placed): Home, Self Care Charges/Coding Visit Charges Inpatient E&M: 85267 Disch Hosp
== END 2021-03-12 17:39 | disposition home or self-care (01) | DRG 291 ==
LOC: ED 22:13 → PCU 22:58
PROVIDERS: Internal Medicine Gastroenterology; Internal Medicine Nephrology; Nurse Practitioner Adult Health; Physician Assistant; Admitting Provider Hospitalist; Emergency Provider Emergency Medicine; PCP Family Medicine; Visit Provider Internal Medicine
PROC: 0DJD8ZZ Inspection of Lower Intestinal Tract, Via Natural or Artificial Opening Endoscopic (ICD-10-PCS; CPT 45378; principal; 2021-03-12 07:55)
DX: I13.2 Hypertensive heart and chronic kidney disease with heart failure and with stage 5 chronic kidney disease, or end stage renal disease (principal); N18.6 End stage renal disease; E87.1 Hypo-osmolality and hyponatremia; D63.1 Anemia in chronic kidney disease; E11.22 Type 2 diabetes mellitus with diabetic chronic kidney disease; D50.0 Iron deficiency anemia secondary to blood loss (chronic); I50.32 Chronic diastolic (congestive) heart failure; Z91.15 Patient's noncompliance with renal dialysis; Z99.2 Dependence on renal dialysis; J44.9 Chronic obstructive pulmonary disease, unspecified; S92.502A Displaced unspecified fracture of left lesser toe(s), initial encounter for closed fracture; W07.XXXA Fall from chair, initial encounter; G25.81 Restless legs syndrome; K63.5 Polyp of colon; E78.5 Hyperlipidemia, unspecified; I25.10 Atherosclerotic heart disease of native coronary artery without angina pectoris; K31.7 Polyp of stomach and duodenum; G47.33 Obstructive sleep apnea (adult) (pediatric); E87.6 Hypokalemia; I35.0 Nonrheumatic aortic (valve) stenosis; Z90.49 Acquired absence of other specified parts of digestive tract; Z87.891 Personal history of nicotine dependence; Z79.52 Long term (current) use of systemic steroids; E66.3 Overweight; Z68.29 Body mass index [BMI] 29.0-29.9, adult; Y92.230 Patient room in hospital as the place of occurrence of the external cause
CPT/HCPCS: 36415; 71045; 80048; 80053; 82607; 82728; 82746; 83540; 83550; 85014; 85018; 85025; 85045; 86850; 86900; 86901; 86920; 86922; 87340; 87426; 88305; 88342; 93005; 94640; 97161; 97165; 99284; P9016; A4216; J2405

== ENCOUNTER 2021-03-13 05:24 | Emergency (ER) | payer MEDICARE, MEDICAID, SELFPAY ==
[2021-03-13 05:25] VITALS: BP 155/56; PULSE 84; RESP 20; TEMP 36.4; O2SAT 97; BMI 30.5
--- NOTE | 2021-03-13 05:34 | EDS_ITS ---
HPI History of Present Illness Chief Complaint: Fall Detail of Chief Complaint: Right-sided chest pain due to blunt trauma Informant: patient and family Onset/Context/Timing Onset: Days Mechanism/Context: Blunt Injury and Fall (Standing position) Quality of Pain: Dull and Aching Location: Anterior axillary line right 6 through eighth rib Current Severity: Mild Maximum Severity: Severe Worsened by: Movement, palpation and breathing Relieved by: Minimal if remains still Associated Symptoms Associated Symptoms: Negative for Parasthesias, Weakness, Loss of function, Inability to ambulate, Loss of consciousness and Amnesia Narrative Narrative: Patient is a 75-year-old woman who was admitted a couple of days ago and discharged yesterday for anemia. She had endoscopy. There were polyps that were removed. She reports the chest pain is after striking object during fall while in the hospital. She reports pain with breathing, movement and palpation. She is not report increased shortness of breath. She has not required increased oxygen. She denies abdominal pain. She denies back pain. She does admit to bruising easily. She is not on an anticoagulant. Tetanus Immunization: 5-10 years Prior similar symptoms: Yes Recent Illness/Hospitalization: Yes [facility] Medical History (HFpEF) heart failure with preserved ejection fraction Atherosclerotic heart disease of [place] coronary artery without angina pectoris CAD (coronary artery disease) Chronic diastolic heart failure COPD (chronic obstructive pulmonary disease) Diabetes mellitus type 2 in obese Dyslipidemia Essential hypertension Morbid obesity with BMI of 40.0-44.9, adult Non-rheumatic mitral regurgitation Non-rheumatic tricuspid valve insufficiency Pulmonary hypertension Home Medications amitriptyline 100 mg PO QHS 04/09/13 [History Last Taken 11/25/18] aspirin 81 mg PO DAILY 10/25/17 [History Last Taken 11/26/18] atorvastatin 80 mg PO DAILY 10/25/17 [History Last Taken 11/25/18] amlodipine 10 mg PO DAILY 06/01/18 [History Last Taken 11/25/18] doxazosin 8 mg PO QHS 08/20/18 [History Last Taken 11/25/18] omeprazole 40 mg PO DAILY 08/20/18 [History Last Taken 11/26/18] acetaminophen 650 mg PO Q6H PRN PRN tab 12/06/18 [Rx Last Taken Unknown] ascorbic acid (vitamin C) 500 mg PO DAILY@0800,1700 tab 12/06/18 [Rx Last Taken Unknown] hydralazine 100 mg tablet 100 mg PO TID tab 01/01/19 [History Last Taken Unknown] benzonatate 200 mg PO TID PRN PRN #20 cap 03/14/19 [Rx Last Taken Unknown] bumetanide 2 mg PO DAILY 03/14/19 [History Last Taken Unknown] carvedilol 6.25 mg PO BID 03/14/19 [History Last Taken Unknown] nitroglycerin 0.4 mg SL Q5M PRN 03/14/19 [History Last Taken Unknown] furosemide 40 mg PO DAILY #30 tab 08/27/19 [Rx Last Taken Unknown] albuterol sulfate 1.25 mg/3 mL solution for nebulization 1.25 mg INHALATION 4X/DAY #360 ml 08/17/20 [Rx Last Taken Unknown] albuterol sulfate 90 mcg/actuation aerosol inhaler 2 puff INHALATION Q6H PRN 09/30/20 [History Last Taken Unknown] metolazone 5 mg tablet 5 mg PO DAILY PRN tab 09/30/20 [History Last Taken Unknown] prednisone 2.5 mg tablet 2.5 mg PO DAILY tab 09/30/20 [History Last Taken Unknown] isosorbide mononitrate 60 mg tablet,extended release 24 hr 60 mg PO DAILY #90 tab 11/09/20 [Rx Last Taken Unknown] budesonide-formoterol [Symbicort] 2 puff INHALATION BID 03/12/21 [History Last Taken Unknown] pantoprazole 40 mg PO BID #120 tab 03/12/21 [Rx Last Taken Unknown] hydrocodone-acetaminophen 1 tab PO Q6H PRN PRN 5 Days #20 tablet 03/13/21 [Rx Last Taken Unknown] Allergy/AdvReac Type Severity Reaction Status Date / Time Penicillins Allergy Hives Verified 12/23/20 09:27 adhesive tape AdvReac Other Verified 12/23/20 09:27 Family History Mother Heart disease Surgical History H/O four vessel coronary artery bypass graft (~04/16/13) Social History (Updated 03/13/21 @ 05:[address] Junior Longoria MD) household members: family Smoking Status: Former smoker quit date: 03/05/10 alcohol intake: current alcohol intake frequency: other substance use type: does not use ROS ROS ED Constitutional Constitutional ED: Denies chills, fever(s), subjective, sweats or weight loss Cardiovascular Cardiovascular: Reports chest pain; Denies palpitations or racing heartbeat Respiratory/Chest Respiratory/Chest: Denies cough, dyspnea or dyspnea on exertion Gastrointestinal Gastrointestinal: Denies abdominal pain, diarrhea, melena, nausea or vomiting Integumentary Denies abscess, Abrasions or rash Hematologic/Lymphatic Hematologic/Lymphatic: Reports easy bruising; Denies easy bleeding or lymphadenopathy EXAM Physical Exam Const Vital Signs: 03/13/21 05:25 03/13/21 05:35 Temperature 97.5 F L Temperature Source Temporal Pulse Rate 84 Respiratory Rate 20 H Respiratory Effort Short of Breath Blood Pressure 155/56 H Blood Pressure Mean 89 Pulse Ox 97 Oxygen Delivery Method Room Air Nasal Cannula Oxygen Flow Rate (L/min) 1.5 Positive well nourished, well developed and obese General Appearance ED: well developed and other Patient is mildly tachypneic. She is not hypoxic. She appears uncomfortable. ; Negative for NAD Nutritional Appearance: obese HEENT HEENT Narrative: Ears are normal. atraumatic; Negative for tenderness Nose: Negative for septum abnormal Eyes PERRL and EOMs intact bilaterally Neck full ROM General: Negative for tenderness Chest Wall inspection of chest normal and palpation of chest normal Breast/Axilla Inspection: other Other Details: Patient has pain no patient axillary line sixth through ninth ribs. There is no crepitus or subcutaneous air. AP pressure to the sternum causes discomfort lateral right side. Resp No normal respiratory effort and clear to auscultation bilaterally Cardio regular rhythm, S1 normal heart sound and S2 normal heart sound; Negative for no murmurs Jugular Venous Distention: other Other Details: Occasional ectopic beat. Rate: regular rate GI normal to inspection, nondistended, normoactive bowel sounds, non-tender, non-distended and no masses GI Narrative: Specifically there is no pain to palpation right costal margin or deep palpation to assess size or tenderness of liver. Palpation: soft Rectal Exam: visual inspection normal Back/Spine no thoracic nor lumbar tenderness; Negative for normal to inspection Back/Spine Narrative: Multiple bruises noted upper back Extremity full ROM; Negative for normal to inspection Extremity Narrative: Numerous ecchymotic areas noted especially the upper extremities. General Extremety ED: Negative for deformity, edema or tenderness General Extremity: Negative for deformity or edema Neuro oriented x3 and CN's II-XII intact bilaterally Sensorium / Orientation: alert Psych mental status grossly normal and thought process normal Skin no rashes or lesions noted and no wounds General Skin Exam: other Multiple bruises previously described MDM MDM MDM Narrative Medical decision making narrative: Will obtain chest x-ray to assess for pneumothorax, hemothorax and obvious fractured ribs. Patient and daughter were informed that x-rays may miss up to 60% of rib fractures. Clinically I suspect she has a fracture since there is a click noted with auscultation. She was medicated with 1 [place] tablet. Radiography Diagnostic Testin view chest x-ray interpreted by me as no acute finding. Cardiac silhouette and size normal. Sternal wires noted. Vas-Cath noted right subclavian. There is no evidence of pneumothorax or hemothorax. Right hemidiaphragm is slightly elevated. There is no evidence of pneumoperitoneum. There is no evidence of rib fracture. X-ray interpreted by me at 0611. Discharge Plan Triage Chief Complaint: Fall ED Provider: Junior Longoria Dx/Rx/DC Orders Clinical Impression: Right rib fracture, Injury due to fall Instructions: ED Rib Contusion or Minor Fracture Prescriptions: New hydrocodone-acetaminophen [hydrocodone-acetaminophen] 1 TABLET tablet 1 tab PO Q6H PRN PRN (Reason: Pain) 5 Days Qty: 20 RF: 0 No Action prednisone 2.5 mg tablet 2.5 mg PO DAILY RF: 0 albuterol sulfate [ProAir HFA] 90 mcg/actuation HFA aerosol inhaler 2 puff inhalation Q6H PRN (Reason: sob) RF: 0 metolazone 5 mg tablet 5 mg PO DAILY PRN (Reason: Weight Gain) RF: 0 amitriptyline 100 MG tablet 100 mg PO QHS RF: 0 atorvastatin 80 MG tablet 80 mg PO DAILY RF: 0 aspirin 81 MG tablet 81 mg PO DAILY RF: 0 Hold Instructions: Resume on 03/20/21. amlodipine 10 MG tablet 10 mg PO DAILY RF: 0 omeprazole 40 MG capsule,delayed release(DR/EC) 40 mg PO DAILY RF: 0 Hold Instructions: Resume on 05/08/21. doxazosin 8 MG tablet 8 mg PO QHS RF: 0 hydralazine 100 mg tablet 100 mg PO TID RF: 0 acetaminophen 325 MG tablet 650 mg PO Q6H PRN PRN (Reason: pain) RF: 0 ascorbic acid (vitamin C) 500 MG tablet 500 mg PO DAILY@0800,1700 RF: 0 nitroglycerin 0.4 MG tablet, sublingual 0.4 mg SL Q5M PRN (Reason: CHEST PAIN) RF: 0 carvedilol 6.25 MG tablet 6.25 mg PO BID RF: 0 bumetanide 2 MG tablet 2 mg PO DAILY RF: 0 benzonatate 100 MG capsule 200 mg PO TID PRN PRN (Reason: Cough) Qty: 20 RF: 0 furosemide 40 MG tablet 40 mg PO DAILY Qty: 30 RF: 0 budesonide-formoterol [Symbicort] 160-4.5 mcg/actuation HFA aerosol inhaler 2 puff INHALATION BID RF: 0 pantoprazole 40 mg Tablet,Delayed Release (Dr/Ec) 40 mg PO BID Qty: 120 RF: 0 albuterol sulfate 1.25 mg/3 mL solution for nebulization 1.25 mg INHALATION 4X/DAY Qty: 360 RF: 6 isosorbide mononitrate 60 mg tablet extended release 24 hr 60 mg PO DAILY Qty: 90 RF: 6 Primary Care Provider: Levi Laird Referrals: Levi Laird MD [Primary Care Provider] - 1 Week if not improving Disposition Disposition: Home, Self Care
[2021-03-13] MEDS: HYDROcodone Bitartrate/Apap 5/325 Tablet PO (05:40)
--- NOTE | 2021-03-13 06:00 | RAD_ITS ---
EXAM: XR CHEST, 2 VIEWS : 1945 CLINICAL INDICATION: Blunt chest trauma with pain over the sixth-ninth TECHNIQUE: Frontal and lateral views of the chest. This report was created using [employer] report generation technology. COMPARISON: 03/09/21 FINDINGS: LUNGS AND PLEURAL SPACES: Unremarkable. No consolidation or edema. No pneumothorax. No effusion. HEART: Unremarkable. Cardiac silhouette not enlarged. MEDIASTINUM: Surgical changes of the mediastinum. BONES/JOINTS: No fractures identified. SOFT TISSUES: Unremarkable. TUBES, LINES AND DEVICES: Right chest central venous catheter. RAD/Chest PA and Lateral IMPRESSION: No acute findings in the chest. at 0641 Reported and signed by: Evelio Bradley MD Electronically Signed: Evelio Bradley MD at 6:40 EST Tel , Service support ,
[2021-03-13 06:33] VITALS: BP 128/78; PULSE 74; RESP 17; O2SAT 96
== END 2021-03-13 06:34 | disposition home or self-care (01) ==
LOC: ED 06:27
PROVIDERS: Emergency Provider Emergency Medicine; PCP Family Medicine; Visit Provider Emergency Medicine
DX: S22.31XA Fracture of one rib, right side, initial encounter for closed fracture (principal); J44.9 Chronic obstructive pulmonary disease, unspecified; I11.0 Hypertensive heart disease with heart failure; I50.32 Chronic diastolic (congestive) heart failure; E66.01 Morbid (severe) obesity due to excess calories; W19.XXXA Unspecified fall, initial encounter; Y92.239 Unspecified place in hospital as the place of occurrence of the external cause; I25.10 Atherosclerotic heart disease of native coronary artery without angina pectoris; E78.5 Hyperlipidemia, unspecified; Z68.35 Body mass index [BMI] 35.0-35.9, adult; Z79.82 Long term (current) use of aspirin; Z79.899 Other long term (current) drug therapy; Z87.891 Personal history of nicotine dependence
CPT/HCPCS: 71046; 99283

== ENCOUNTER → 2021-08-16 | Outpatient (CLI) | payer MEDICARE, MEDICAID, SELFPAY ==
[2021-08-16 12:26] VITALS: BP 175/46; PULSE 75; RESP 16; TEMP 36.6; O2SAT 99
[2021-08-16 12:28] VITALS: BP 175/46; PULSE 75; RESP 20; TEMP 36.7; O2SAT 99; BMI 28.1
[2021-08-16 12:47] VITALS: BP 178/54; PULSE 73; RESP 16; TEMP 36.5; O2SAT 100
[2021-08-16 13:41] VITALS: BP 180/55; PULSE 80; RESP 16; TEMP 36.6
[2021-08-16 14:09] VITALS: BP 179/55; PULSE 80; RESP 16; TEMP 36.8; O2SAT 100
== END | disposition home or self-care (01) ==
LOC: MEDOUTP 11:38
PROVIDERS: PCP Family Medicine
DX: D64.9 Anemia, unspecified (principal); N18.6 End stage renal disease; R53.1 Weakness
CPT/HCPCS: 36415; 36430; 86850; 86900; 86901; 86920; 86922; J7030; P9016; A4216

== ENCOUNTER 2021-09-13 12:35 | Day surgery (SDC) | payer MEDICARE, MEDICAID, SELFPAY ==
[2021-09-13] VITALS (9 sets, daily range): BP systolic 156–177; BP diastolic 49–70; PULSE 65–77; RESP 16; TEMP 36.4–37.2; O2SAT 96–100; BMI 28.1
--- NOTE | 2021-09-13 13:04 | PCM.HP.BLA ---
History and Physical Date of Admission: 09/13/21 JULISSA VEGA, is a 75 F who presents with worsening shortness of breath.? She has a history of end-stage renal disease on hemodialysis every Sunday and Sunday.? She also has a history of CAD status post CABG.? She has been having worsening anemia thought not to be secondary to end-stage renal disease over the last 2 years.? Her son in law and daughter have been trying to get her to have endoscopy however she has refused in the past.? On this current admission she was discovered to have a hemoglobin of 6.? Her hemoglobin has been as low as 5 as per her son-in-law.? She received 2 units of packed red blood cells and her hemoglobin went from 6-7.? I was consulted in regarding her anemia.? She does have intermittent dark stools.? However she has not seen any blood in her stools.? She does not know she is on Aranesp, B12, folic acid.? She has received iron transfusions in the past and has received multiple units of packed red blood cells over the last 2 years. [facility] Medical History? (HFpEF) heart failure with preserved ejection fraction Atherosclerotic heart disease of [place] coronary artery without angina pectoris CAD (coronary artery disease) Chronic diastolic heart failure COPD (chronic obstructive pulmonary disease) Diabetes mellitus type 2 in obese Dyslipidemia Essential hypertension Morbid obesity with BMI of 40.0-44.9, adult Non-rheumatic mitral regurgitation Non-rheumatic tricuspid valve insufficiency Pulmonary hypertension Home Medications amitriptyline 100 mg PO QHS 04/09/13 [History Last Taken 11/25/18] aspirin 81 mg PO DAILY 10/25/17 [History Last Taken 11/26/18] atorvastatin 80 mg PO DAILY 10/25/17 [History Last Taken 11/25/18] amlodipine 10 mg PO DAILY 06/01/18 [History Last Taken 11/25/18] doxazosin 8 mg PO QHS 08/20/18 [History Last Taken 11/25/18] omeprazole 40 mg PO DAILY 08/20/18 [History Last Taken 11/26/18] acetaminophen 650 mg PO Q6H PRN PRN? tab 12/06/18 [Rx Last Taken Unknown] ascorbic acid (vitamin C) 500 mg PO DAILY@0800,1700? tab 12/06/18 [Rx Last Taken Unknown] hydralazine 100 mg tablet 100 mg PO TID? tab 01/01/19 [History Last Taken Unknown] benzonatate 200 mg PO TID PRN PRN #20 cap 03/14/19 [Rx Last Taken Unknown] bumetanide 2 mg PO DAILY 03/14/19 [History Last Taken Unknown] carvedilol 6.25 mg PO BID 03/14/19 [History Last Taken Unknown] nitroglycerin 0.4 mg SL Q5M PRN 03/14/19 [History Last Taken Unknown] furosemide 40 mg PO DAILY #30 tab 08/27/19 [Rx Last Taken Unknown] albuterol sulfate 1.25 mg/3 mL solution for nebulization 1.25 mg INHALATION 4X/DAY #360 ml 08/17/20 [Rx Last Taken Unknown] budesonide-formoterol HFA 160 mcg-4.5 mcg/actuation aerosol inhaler 2 puff INHALATION BID #1 ea 09/14/20 [Rx Last Taken Unknown] albuterol sulfate 90 mcg/actuation aerosol inhaler 2 puff INHALATION Q6H PRN 09/30/20 [History Last Taken Unknown] metolazone 5 mg tablet 5 mg PO DAILY PRN? tab 09/30/20 [History Last Taken Unknown] prednisone 2.5 mg tablet 2.5 mg PO DAILY? tab 09/30/20 [History Last Taken Unknown] isosorbide mononitrate 60 mg tablet,extended release 24 hr 60 mg PO DAILY #90 tab 11/09/20 [Rx Last Taken Unknown] Allergy/AdvReac Type Severity Reaction Status Date / Time Penicillins Allergy ? Hives Verified 12/23/20 09:27 adhesive tape AdvReac ? Other Verified 12/23/20 09:27 Family History? Mother Heart disease Surgical History? H/O four vessel coronary artery bypass graft (~04/16/13) Social History? Smoking Status:? Former smoker quit date: 03/05/10 ROS Review of Systems ROS Unobtainable: other Constitutional Constitutional: Reports fatigue, poor appetite and weight loss; Denies weight gain ENT HEENT: Denies mouth lesions Cardiovascular Cardiovascular: Denies abdominal bloating, abdominal edema or abdominal pain Respiratory/Chest Respiratory/Chest: Denies change in mental status, change in phlegm color, chest congestion or chest tightness Gastrointestinal Gastrointestinal: Reports hemorrhoids, loose stools and melena; Denies weight changes Genitourinary Genitourinary: Denies abdominal discomfort, burning urination or itching Musculoskeletal Musculoskeletal: Reports as per HPI; Denies muscle weakness or myalgias Integumentary Integumentary: Denies jaundice Neurologic Neurologic: Denies lack of coordination or weakness Psychiatric Psychiatric: Denies confusion, depression, memory loss, mood swings, paranoia or suicidal ideation Endocrine Endocrinology: Denies systems reviewed and no addt'l complaints, except as documented Hematologic/Lymphatic Hematologic/Lymphatic: Denies anemia, easy bleeding, easy bruising or lymphadenopathy Allergic/Immunologic Allergic/Immunologic: Denies systems reviewed and no addt'l complaints, except as documented Physical Exam Const alert General Appearance: cooperative Orientation / Consciousness: oriented to person HEENT hearing grossly normal bilaterally Head and Scalp: normal to inspection Face and Sinus: face symmetric Nose: external nose normal Mouth: oral and palatal mucosa normal Eyes conjunctivae normal General Eye: normal appearance of both eyes Neck full ROM General: normal visual inspection Lymph Lymphatic: no lymphadenopathy noted Chest inspection of chest normal and palpation of chest normal Chest: symmetrical chest wall rise Resp normal respiratory effort Effort and Inspection: able to speak in complete sentences Cardio regular rate GI non-distended Percussion: normal to percussion Rectal Exam: deferred Neuro Speech: speech normal Gait (Neuro): normal gait Lab / Micro Data Result Diagrams: 03/10/21 08:00? 03/10/21 08:00? Labs: Laboratory Results - last 24 hr 03/09/21 20:15:?Vitamin B12 239 03/09/21 20:45:?WBC 7.9,?RBC 2.20 L,?Hgb 6.0 L*,?Hct 19.6 L, MCV 89.1, MCH 27.3,?MCHC 30.6 L,?RDW Std Deviation 56.9 H,?RDW Coeff of Becca 17.8 H, Plt Count 300, MPV 10.0,?Immature Gran % (Auto) 1.000 H,?Neut % (Auto) 79.6 H,?Lymph % (Auto) 9.9 L, Steele % (Auto) 7.3, Eos % (Auto) 1.7, Baso % (Auto) 0.5, Absolute Neuts (auto) 6.3,?Absolute Lymphs (auto) 0.78 L, Nucleated RBC % 0, Diff Path Review May foll 03/09/21 20:45:?Sodium 136, Potassium 3.5,?Chloride 97 L, Carbon Dioxide 32.0, Anion Gap 7,?BUN 29 H,?Creatinine 2.64 H, Estim Creat Clear Calc 14.79,?Est GFR (MDRD) Af Amer 23 L,?Est GFR (MDRD) Non-Af 19 L, BUN/Creatinine Ratio 11.0, Glucose 97,?Calcium 8.2 L, Total Bilirubin 0.30, AST 20, ALT 17,?Alkaline Phosphatase 136 H, Total Protein 6.6,?Albumin 3.1 L, Globulin 3.5, Albumin/Globulin Ratio 0.9 03/09/21 20:45: Retic Count 4.34 H,?Immature Retic Fraction 18.90 H, Retic Hgb Equivalent 31.5 03/09/21 20:45:?Iron 95,?TIBC 229 L, Iron Saturation 41.5,?Ferritin 296 H, Folate 10.60 03/09/21 22:20:?Blood Type Cancelled, Antibody Screen Cancelled, Crossmatch See Detail 03/09/21 22:40:?Blood Type A NEGATIVE, Antibody Screen NEGATIVE, Crossmatch See Detail 03/10/21 08:00:?WBC 6.8,?RBC 2.48 L,?Hgb 7.0 L,?Hct 22.2 L, MCV 89.5, MCH 28.2,?MCHC 31.5 L,?RDW Std Deviation 55.7 H,?RDW Coeff of Becca 17.4 H, Plt Count 238, MPV 9.9,?Immature Gran % (Auto) 1.600 H,?Neut % (Auto) 75.1 H,?Lymph % (Auto) 10.1 L, Steele % (Auto) 9.9, Eos % (Auto) 2.7, Baso % (Auto) 0.6, Absolute Neuts (auto) 5.1,?Absolute Lymphs (auto) 0.68 L, Nucleated RBC % 0 03/10/21 08:00:?Sodium 136,?Potassium 3.2 L,?Chloride 96 L, Carbon Dioxide 31.0, Anion Gap 9,?BUN 35 H,?Creatinine 3.22 H, Estim Creat Clear Calc 12.12,?Est GFR (MDRD) Af Amer 18 L,?Est GFR (MDRD) Non-Af 15 L, BUN/Creatinine Ratio 10.9, Glucose 86,?Calcium 8.0 L Rhythm Strip Rhythm Strip: Sinus Rhythm Rate: 76 Ectopy: PAC(s) Radiology Impression Chest X-Ray? 03/09/21 21:07 IMPRESSION: ? No acute cardiopulmonary process. ? Electronically Signed: Farhan Allred MD at 21:29 EST Tel , Service support? , ? Assessment & Plan Assessment/Plan (1) Anemia: PLAN: ? ? ? Differential diagnosis for her anemia would include anemia chronic disease, GI bleed secondary to peptic ulcer disease, H. pylori, celiac disease, AVMs, neoplasia, dielafouy lesions.? She should undergo upper or lower endoscopy and possible capsule endoscopy.? She was explained alternatives, risk, benefits including understanding bleeding, infection, sepsis, perforation, need emergent .? She will have an ASA of 3. I have re-examined the patient. There are no clinical changes since date of exam.
[2021-09-13] MEDS: Lactated Ringers 1,000 ML 15 ML IV (13:34)
--- NOTE | 2021-09-13 14:00 | COLBX_PTH ---
PATIENT: JULISSA VEGA LOC: [facility] U#:[id number] AGE/SX: 75/F ROOM: RE09/13/[address]: Dr. Kameron Chan DO : 1945 BED: DIS: 09/13/2021 SPEC #: [id number] RECD: 09/13/21 21:17 STATUS: TIM ANNIA #: [id number] JOSEPH: 09/13/21 14:[address]: Kameron Chan DEPT: SURGICAL PATHOLOGY RECD BY: Johnathan Santoyo ENTERED: 09/14/21 08:46 SP TYPE: COLON BX OTHR DR: Dr. Levi Laird MD Tissues: A - Ileum, NOS B - Sigmoid colon biopsy Procedures: Surgery Specimen Level IV HEADER OPERATION: Colonoscopy, EGD ([facility] [place]), hemostasis, biopsy PRE-OP DIAGNOSIS: Anemia TISSUE SUBMITTED: A ? Terminal ileum biopsy, B ? Sigmoid polyp biopsy MICROSCOPIC DIAGNOSIS A. Terminal ileum, biopsy: A fragment of small intestinal mucosa, no pathologic diagnosis. B. Sigmoid colon polyp, biopsy: Tubular adenoma. VICENTA:viky 09/15/2021 MICROSCOPIC DESCRIPTION Slides are reviewed. GROSS DESCRIPTION A - Received in fixative is one container labeled with the patient's name and designated terminal ileum. The specimen consists of one irregular fragment of light schaefer soft tissue that measures 0.5 x 0.3 x 0.1 cm. The specimen is totally submitted in one cassette. B - Received in fixative is one container labeled with the patient's name and designated sigmoid polyp biopsy. The specimen consists of one irregular fragment of light schaefer soft tissue that measures 0.3 x 0.3 x 0.1 cm. The specimen is totally submitted in one cassette. / VICENTA:viky 09/14/2021 TC:1 [facility]: [id number] x2
[2021-09-13] MEDS: Epinephrine (1 mg/ml) 1 MG/ML VIAL (14:22)
[2021-09-13] MEDS: 0.9% Normal Saline (Pres. free 10 ML Vial (14:22)
--- NOTE | 2021-09-13 15:03 | OP.EGD_ITS ---
Patient Name: Shante Trujillo Procedure Date: 09/13/2021 1:57 PM Date of : 1945 Age: 75 Procedure: Upper GI endoscopy Indications: Acute post hemorrhagic anemia, Iron deficiency anemia Providers: Kameron Chan DO Referring MD: eLvi Laird Medicines: Monitored Anesthesia Care Patient Profile: This is a 75 year old female. Refer to note in patient chart for documentation of history and physical. Patient has symptoms. Complications: No immediate complications. Procedure: Pre-Anesthesia Assessment: - Prior to the procedure, a History and Physical was performed, and patient medications and allergies were reviewed. The risks and benefits of the procedure and the sedation options and risks were discussed with the patient. All questions were answered and informed consent was obtained. Patient identification and proposed procedure were verified by the physician in the pre-procedure area. Mental Status Examination: alert and oriented. Airway Examination: normal oropharyngeal airway and neck mobility. Respiratory Examination: clear to auscultation. CV Examination: normal. Prophylactic Antibiotics: The patient does not require prophylactic antibiotics. Prior Anticoagulants: The patient has taken no previous anticoagulant or antiplatelet agents. After reviewing the risks and benefits, the patient was deemed in satisfactory condition to undergo the procedure. The anesthesia plan was to use moderate sedation / analgesia (conscious sedation). Immediately prior to administration of medications, the patient was re-assessed for adequacy to receive sedatives. The heart rate, respiratory rate, oxygen saturations, blood pressure, adequacy of pulmonary ventilation, and response to care were monitored throughout the procedure. The physical status of the patient was re-assessed after the procedure. After obtaining informed consent, the endoscope was passed under direct vision. Throughout the procedure, the patient's blood pressure, pulse, and oxygen saturations were monitored continuously. The Colonoscope was introduced through the mouth, and advanced to the second part of duodenum. The upper GI endoscopy was accomplished without difficulty. The patient tolerated the procedure well. Scope In: 2:11:11 PM Scope Out: 2:31:21 PM Total Procedure Duration Time 0 hours 20 minutes 10 seconds Findings: The examined esophagus was normal. Red blood was found in the gastric fundus. Three 5 mm bleeding angiodysplastic lesions were found in the gastric fundus. Coagulation for hemostasis using heater probe was unsuccessful. Area was successfully injected with 19 mL of a 1:10,000 solution of epinephrine for hemostasis. Coagulation for hemostasis using argon beam at 0.3 liters/minute and 20 kern was successful. Estimated blood loss was minimal. Diffuse severe mucosal variance characterized by discoloration and friability (with contact bleeding) was found in the entire duodenum. Impression: - Normal esophagus. - Red blood in the gastric fundus. - Three bleeding angiodysplastic lesions in the stomach. Treatment not successful. Treated with a heater probe. Injected. Treated with argon beam coagulation. - Mucosal variant in the duodenum. - No specimens collected. Recommendation: - Discharge patient to home. - Resume previous diet. - Continue present medications. - Await pathology results. Procedure Code(s): --- Professional --- 99925, Esophagogastroduodenoscopy, flexible, transoral; with control of bleeding, any method CPT copyright 2017 [employer]. All rights reserved. The codes documented in this report are preliminary and upon pulverizer tender review may be revised to meet current compliance requirements. Kameron Chan DO 09/13/2021 3:02:50 PM This report has been signed electronically. Number of Addenda: 1 Note Initiated On: 09/13/2021 1:57 PM Addendum Number: 1 Addendum Date: 12/07/2021 6:21:23 AM MAC was used as sedation for this procedure. Kameron Chan DO 12/07/2021 6:21:27 AM This report has been signed electronically.
--- NOTE | 2021-09-13 15:03 | OP.CCLET_ITS ---
12/07/2021 Levi Laird Re : Upper GI endoscopy procedure for Shante Fuenteshaider Laird This procedure was performed on Monday, September 13, 2021. My impressions and recommendations are as follows: Impressions : - Normal esophagus. - Red blood in the gastric fundus. - Three bleeding angiodysplastic lesions in the stomach. Treatment not successful. Treated with a heater probe. Injected. Treated with argon beam coagulation. - Mucosal variant in the duodenum. - No specimens collected. Recommendations : - Discharge patient to home. - Resume previous diet. - Continue present medications. - Await pathology results. My findings are described in the full procedure note, which is enclosed. If I can be of further assistance, please feel free to contact me at . Sincerely, Kameron Chan, 09/13/2021 3:02:50 PM This report has been signed electronically.
--- NOTE | 2021-09-13 15:06 | OP.CCLET_ITS ---
12/07/2021 Levi Laird Re : Colonoscopy procedure for Shante Trujillo Dear Eitan This procedure was performed on Monday, September 13, 2021. My impressions and recommendations are as follows: Impressions : - One 5 mm polyp in the sigmoid colon, removed with a cold snare. Resected and retrieved. - Congested mucosa in the terminal ileum. Biopsied. Recommendations : - Discharge patient to home. - Resume previous diet. - Continue present medications. - Await pathology results. - Repeat colonoscopy in 5 years for surveillance based on pathology results. My findings are described in the full procedure note, which is enclosed. If I can be of further assistance, please feel free to contact me at . Sincerely, Kameron Chan, 09/13/2021 3:06:05 PM This report has been signed electronically.
--- NOTE | 2021-09-13 15:06 | OP.COLON_ITS ---
Patient Name: Shante Trujillo Procedure Date: 09/13/2021 2:31 PM Date of : 1945 Age: 75 Procedure: Colonoscopy Indications: Iron deficiency anemia Providers: Kameron Chan DO Referring MD: Levi Laird Medicines: Monitored Anesthesia Care Patient Profile: This is a 75 year old female. Refer to note in patient chart for documentation of history and physical. Patient has symptoms. Last Colonoscopy: date unknown. Complications: No immediate complications. Procedure: Pre-Anesthesia Assessment: - Prior to the procedure, a History and Physical was performed, and patient medications and allergies were reviewed. The risks and benefits of the procedure and the sedation options and risks were discussed with the patient. All questions were answered and informed consent was obtained. Patient identification and proposed procedure were verified by the physician in the pre-procedure area. Mental Status Examination: alert and oriented. Airway Examination: normal oropharyngeal airway and neck mobility. Respiratory Examination: clear to auscultation. CV Examination: normal. Prophylactic Antibiotics: The patient does not require prophylactic antibiotics. Prior Anticoagulants: The patient has taken no previous anticoagulant or antiplatelet agents. After reviewing the risks and benefits, the patient was deemed in satisfactory condition to undergo the procedure. The anesthesia plan was to use moderate sedation / analgesia (conscious sedation). Immediately prior to administration of medications, the patient was re-assessed for adequacy to receive sedatives. The heart rate, respiratory rate, oxygen saturations, blood pressure, adequacy of pulmonary ventilation, and response to care were monitored throughout the procedure. The physical status of the patient was re-assessed after the procedure. After I obtained informed consent, the scope was passed under direct vision. Throughout the procedure, the patient's blood pressure, pulse, and oxygen saturations were monitored continuously. The Colonoscope was introduced through the anus and advanced to the terminal ileum. The colonoscopy was performed without difficulty. The patient tolerated the procedure well. The quality of the bowel preparation was good. Scope In: 2:34:25 PM Scope Withdrawal Time 0 hours 8 minutes 48 seconds Scope Out: 2:53:38 PM Total Procedure Duration Time 0 hours 19 minutes 13 seconds Findings: The perianal and digital rectal examinations were normal. A 5 mm polyp was found in the sigmoid colon. The polyp was sessile. The polyp was removed with a cold snare. Resection and retrieval were complete. Verification of patient identification for the specimen was done. Estimated blood loss was minimal. A patchy area of the terminal ileum was congested. Biopsies were taken with a cold forceps for histology. Verification of patient identification for the specimen was done. Estimated blood loss was minimal. Impression: - One 5 mm polyp in the sigmoid colon, removed with a cold snare. Resected and retrieved. - Congested mucosa in the terminal ileum. Biopsied. Recommendation: - Discharge patient to home. - Resume previous diet. - Continue present medications. - Await pathology results. - Repeat colonoscopy in 5 years for surveillance based on pathology results. Procedure Code(s): --- Professional --- 31657, Colonoscopy, flexible; with removal of tumor(s), polyp(s), or other lesion(s) by snare technique 70110, 59, Colonoscopy, flexible; with biopsy, single or multiple CPT copyright 2017 [employer]. All rights reserved. The codes documented in this report are preliminary and upon extrusion die repair manager review may be revised to meet current compliance requirements. Kameron Chan DO 09/13/2021 3:06:05 PM This report has been signed electronically. Number of Addenda: 1 Note Initiated On: 09/13/2021 2:31 PM Addendum Number: 1 Addendum Date: 12/07/2021 6:21:34 AM MAC was used as sedation for this procedure. Kameron Chan DO 12/07/2021 6:21:40 AM This report has been signed electronically.
== END 2021-09-13 15:50 | disposition home or self-care (01) ==
LOC: EN 12:37 → AC 12:37
PROVIDERS: PCP Family Medicine; Referring Provider Family Medicine; Visit Provider Internal Medicine Gastroenterology
PROC: 0DJD8ZZ Inspection of Lower Intestinal Tract, Via Natural or Artificial Opening Endoscopic (ICD-10-PCS; CPT 45378; principal; 2021-09-13 13:55)
DX: K31.811 Angiodysplasia of stomach and duodenum with bleeding (principal); J44.9 Chronic obstructive pulmonary disease, unspecified; I50.22 Chronic systolic (congestive) heart failure; I11.0 Hypertensive heart disease with heart failure; I27.20 Pulmonary hypertension, unspecified; J96.11 Chronic respiratory failure with hypoxia; E11.9 Type 2 diabetes mellitus without complications; D12.5 Benign neoplasm of sigmoid colon; I25.10 Atherosclerotic heart disease of native coronary artery without angina pectoris; E78.5 Hyperlipidemia, unspecified; I34.0 Nonrheumatic mitral (valve) insufficiency; Z79.82 Long term (current) use of aspirin; Z79.899 Other long term (current) drug therapy; Z87.891 Personal history of nicotine dependence; Z95.1 Presence of aortocoronary bypass graft; G47.33 Obstructive sleep apnea (adult) (pediatric); F41.9 Anxiety disorder, unspecified; G25.81 Restless legs syndrome; Z99.81 Dependence on supplemental oxygen; D50.9 Iron deficiency anemia, unspecified; D62 Acute posthemorrhagic anemia
CPT/HCPCS: 43255; 45385; 45380; 88305; J7120; J2405; J3490

== ENCOUNTER 2021-11-28 02:46 | Emergency (ER) | payer MEDICARE, MEDICAID, SELFPAY ==
[2021-11-28 02:47] VITALS: BP 174/82; PULSE 77; RESP 17; TEMP 36.8; O2SAT 99; BMI 38.7
--- NOTE | 2021-11-28 02:58 | EDS_ITS ---
HPI History of Present Illness Chief Complaint: Fall Narrative Narrative: 75-year-old female presenting with left rib pain since Sunday evening when she tripped over her oxygen tubing and fell. She states she fell into the wall and hit her head but she did not hit this hard and she did not lose consciousness. She does not have any lightheadedness, dizziness, blurred vision. She has been acting normally. Today she was out with family walking around and noted that she started to have more pain on left side. She states she did take Tylenol without significant relief. She has not tried ice or heat. She is not short of breath. Her family member brought her in out of concern for may be a cracked rib. She states that she fell in the hospital once before and had a cracked rib and told her that it would take days to heal when there is no specific treatment for it but she wants to have an x-ray of it anyway. [facility] Medical History (HFpEF) heart failure with preserved ejection fraction Anemia Anxiety Arthritis Atherosclerotic heart disease of [place] coronary artery without angina pectoris CAD (coronary artery disease) Chronic diastolic heart failure COPD (chronic obstructive pulmonary disease) Diabetes mellitus type 2 in obese Dyslipidemia ESRD (end stage renal disease) on dialysis Essential hypertension History of blood transfusion Morbid obesity with BMI of 40.0-44.9, adult Non-rheumatic mitral regurgitation Non-rheumatic tricuspid valve insufficiency On home oxygen therapy Pulmonary hypertension Restless leg syndrome Shortness of breath on exertion Toe fracture, left Wears dentures Wears glasses Home Medications amitriptyline 100 mg tablet 100 mg PO QHS mental health 04/09/13 [History Last Taken 11/25/18] aspirin 81 mg tablet,delayed release 81 mg PO DAILY HEART HEALTH 10/25/17 [History Last Taken 11/26/18] atorvastatin 80 mg tablet 80 mg PO DAILY CHOLESTEROL 10/25/17 [History Last Taken 11/25/18] amlodipine 10 mg tablet 10 mg PO DAILY BP 06/01/18 [History Last Taken 09/13/21 09:50] doxazosin 8 mg tablet 8 mg PO QHS blood pressure 08/20/18 [History Last Taken 0 11/25/18] omeprazole 40 mg capsule,delayed release 40 mg PO DAILY gerd 08/20/18 [History Last Taken 09/13/21 09:50] acetaminophen 325 mg tablet 650 mg PO Q6H PRN PRN pain 12/06/18 [Rx Last Taken Unknown] ascorbic acid (vitamin C) 500 mg tablet 500 mg PO DAILY@0800,1700 12/06/18 [Rx Last Taken Unknown] hydralazine 100 mg tablet 100 mg PO TID diuretic 01/01/19 [History Last Taken 09/13/21 09:50] bumetanide 2 mg tablet 2 mg PO DAILY diuretic 03/14/19 [History Last Taken Unknown] carvedilol 6.25 mg tablet 6.25 mg PO BID blood pressure 03/14/19 [History Last Taken 09/13/21 09:50] nitroglycerin 0.4 mg sublingual tablet 0.4 mg sublingual Q5M PRN CHEST PAIN 03/14/19 [History Last Taken Unknown] albuterol sulfate 1.25 mg/3 mL solution for nebulization 1.25 mg (3 mL) inhalation 4X/DAY Wheezing #360 mL 08/17/20 [Rx Last Taken Unknown] albuterol sulfate 90 mcg/actuation aerosol inhaler (ProAir HFA) 2 puff inhalation Q6H PRN sob 09/30/20 [History Last Taken Unknown] prednisone 2.5 mg tablet 2.5 mg PO DAILY inflammation #90 tabs 03/22/21 [Rx Last Taken Unknown] isosorbide mononitrate 60 mg tablet,extended release 24 hr 60 mg PO DAILY #90 tabs 04/15/21 [Rx Last Taken 09/13/21 09:50] ropinirole 0.5 mg tablet 0.5 mg PO DAILY 07/07/21 [History Last Taken Unknown] budesonide-formoterol HFA 160 mcg-4.5 mcg/actuation aerosol inhaler (Symbicort) 2 inh inhalation BID breathing #3 ea 10/02/21 [Rx Last Taken Unknown] hydrocodone-acetaminophen 5-325mg 5mg-325mg 1 tab PO Q6H PRN pain 3 days #10 tabs 11/28/21 [Rx Last Taken Unknown] lidocaine 5 % topical patch (Lidoderm) 1 patch topical DAILY #15 ea 11/28/21 [Rx Last Taken Unknown] Allergy/AdvReac Type Severity Reaction Status Date / Time Penicillins Allergy Hives Verified 11/28/21 02:52 adhesive tape AdvReac Other Verified 11/28/21 02:52 Family History Mother Heart disease Surgical History H/O four vessel coronary artery bypass graft (~04/16/13) Hx of colonoscopy Hx of esophagogastroduodenoscopy Social History household members: family Smoking Status: Former smoker quit date: 03/05/10 alcohol intake: current alcohol intake frequency: other substance use type: does not use ROS ROS ED Constitutional Constitutional ED: Denies chills or fever(s) Eyes Eyes: Denies change in vision ENT ENT ED: Denies rhinorrhea or sore throat Cardiovascular Cardiovascular: Reports other Details: Left lower rib pain ; Denies chest pain or palpitations Respiratory/Chest Respiratory/Chest: Denies cough or dyspnea Gastrointestinal Gastrointestinal: Denies abdominal pain or constipation Genitourinary Genitourinary ED: Denies dysuria or hematuria Musculoskeletal Musculoskeletal: Denies arthralgias or back pain Integumentary Denies abscess or Abrasions Neurologic Neurologic: Denies headache(s) or paresthesias EXAM Physical Exam Const Vital Signs: 11/28/21 02:47 11/28/21 02:52 Temperature 98.2 F Temperature Source Temporal Pulse Rate 77 Respiratory Rate 17 Respiratory Effort Normal Respiratory Depth Normal Respiratory Pattern Normal Blood Pressure 174/82 H Blood Pressure Mean 112 Pulse Ox 99 Oxygen Delivery Method Nasal Cannula Nasal Cannula Oxygen Flow Rate (L/min) 1.5 1.5 Positive well nourished General Appearance ED: NAD HEENT atraumatic Eyes PERRL and EOMs intact bilaterally Chest Wall Chest Narrative: Tenderness palpation of the lower ribs in the midaxillary line. No bruising, crepitance. Equal symmetric breath sounds and chest wall rise. Resp normal respiratory effort and clear to auscultation bilaterally GI normal to inspection, nondistended, normoactive bowel sounds Back/Spine normal to inspection Neuro oriented x3 and CN's II-XII intact bilaterally Motor Exam: strength 5/5 throughout Psych mental status grossly normal Skin no rashes or lesions noted and no wounds MDM MDM MDM Narrative Medical decision making narrative: I reviewed her previous visit in March where she had a fall in the right-sided rib pain and there was no evidence of fracture at that time either. The patient recovered. It looks like she was given [place] for pain. Left rib series is obtained and on my interpretation shows no acute rib fractures. There is no evidence of pneumothorax or acute cardiopulmonary process. The radiologist agree. Patient will be given [place] and Lidoderm patches for home. Return precautions discussed. Impression: 1. Mechanical fall 2. Left rib contusion Radiography Diagnostic Testing: Clinical Impression(s) from Imaging Studies Ribs w/Chest X-Ray 11/28/21 03:15 IMPRESSION: RIBS: No distinct left-sided rib fractures. CHEST: No acute cardiopulmonary disease. Right-sided central line as described. Electronically Signed: Norma Tony MD at 3:41 EDT , Discharge Plan Triage Chief Complaint: Fall ED Provider: Martinez Camarena Dx/Rx/DC Orders Instructions: ED Rib Contusion or Minor Fracture Prescriptions: New hydrocodone-acetaminophen 5-325 mg tablet 1 tab PO Q6H PRN (Reason: pain) 3 Days Qty: 10 0RF lidocaine [Lidoderm] 5 % adhesive patch,medicated 1 patch topical DAILY Qty: 15 0RF Rx Instructions: leave on most painful area for up to 12 hrs No Action albuterol sulfate [ProAir HFA] 90 mcg/actuation HFA aerosol inhaler 2 puff inhalation Q6H PRN (Reason: sob) prednisone 2.5 mg tablet 2.5 mg PO DAILY Qty: 90 1RF ropinirole 0.5 mg tablet 0.5 mg PO DAILY Label Comments: TAKE 1 TABLET BY MOUTH ONCE DAILY amitriptyline 100 MG tablet 100 mg PO QHS Label Comments: MENTAL HEALTH atorvastatin 80 MG tablet 80 mg PO DAILY Label Comments: aspirin 81 MG tablet 81 mg PO DAILY Hold Instructions: Resume on 03/20/21. amlodipine 10 MG tablet 10 mg PO DAILY omeprazole 40 MG capsule,delayed release(DR/EC) 40 mg PO DAILY Hold Instructions: Resume on 05/08/21. doxazosin 8 MG tablet 8 mg PO QHS hydralazine 100 mg tablet 100 mg PO TID acetaminophen 325 MG tablet 650 mg PO Q6H PRN PRN (Reason: pain) 0RF ascorbic acid (vitamin C) 500 MG tablet 500 mg PO DAILY@0800,1700 0RF nitroglycerin 0.4 MG tablet, sublingual 0.4 mg SL Q5M PRN (Reason: CHEST PAIN) carvedilol 6.25 MG tablet 6.25 mg PO BID bumetanide 2 MG tablet 2 mg PO DAILY albuterol sulfate 1.25 mg/3 mL solution for nebulization 1.25 mg INHALATION 4X/DAY Qty: 360 6RF isosorbide mononitrate 60 mg tablet extended release 24 hr 60 mg PO DAILY Qty: 90 6RF budesonide-formoterol [Symbicort] 160-4.5 mcg/actuation HFA aerosol inhaler 2 inh INHALATION BID Qty: 3 3RF Rx Instructions: administer with spacer, rinse mouth after each use Primary Care Provider: Levi Laird Referrals: Levi Laird MD [Primary Care Provider] - Disposition Disposition: Home, Self Care Discharge Date/Time: 11/28/21 04:08
[2021-11-28] MEDS: Lidocaine 5% Patch 1 PATCH TOPICAL (03:03)
--- NOTE | 2021-11-28 03:15 | RAD_ITS ---
STUDY: X-RAY - UNILATERAL RIBS ( LEFT ) WITH CHEST REASON FOR EXAM: Female, 75 years old. pain TECHNIQUE - RIBS: 4 view(s) of the ribs. TECHNIQUE - CHEST: Single AP portable view of the chest. COMPARISON: 03/13/2021. FINDINGS - RIBS: Normal visualized ribs without a demonstrated fracture. FINDINGS - CHEST: There is a right-sided central catheter with the tip in the distal SVC/right atrial junction. The lungs are clear and expanded. There is no demonstrated pleural abnormality. Normal size heart. Sternotomy wires noted. Normal mediastinum and james. Normal visualized pulmonary arteries. There is atherosclerotic calcification of the aortic arch with tortuosity. There are diffuse degenerative changes of the visualized thoracic spine. Normal visualized ribs, clavicles, and shoulders. There is no demonstrated abnormality of the visualized soft tissue structures of the upper abdomen. RAD/Ribs Uni Min 3V w/PA Chest IMPRESSION: RIBS: No distinct left-sided rib fractures. CHEST: No acute cardiopulmonary disease. Right-sided central line as described. Electronically Signed: Norma Tony MD at 3:41 EDT ,
[2021-11-28] MEDS: HYDROcodone Bitartrate/Apap 5/325 Tablet PO (03:17)
== END 2021-11-28 04:08 | disposition home or self-care (01) ==
LOC: ED 04:04
PROVIDERS: Emergency Provider Student in an Organized Health Care Education/Training Program; PCP Family Medicine; Visit Provider Student in an Organized Health Care Education/Training Program
DX: S20.212A Contusion of left front wall of thorax, initial encounter (principal); I13.2 Hypertensive heart and chronic kidney disease with heart failure and with stage 5 chronic kidney disease, or end stage renal disease; J44.9 Chronic obstructive pulmonary disease, unspecified; I50.32 Chronic diastolic (congestive) heart failure; I27.20 Pulmonary hypertension, unspecified; E11.22 Type 2 diabetes mellitus with diabetic chronic kidney disease; N18.6 End stage renal disease; E66.01 Morbid (severe) obesity due to excess calories; F41.9 Anxiety disorder, unspecified; I25.10 Atherosclerotic heart disease of native coronary artery without angina pectoris; I34.0 Nonrheumatic mitral (valve) insufficiency; G25.81 Restless legs syndrome; E78.5 Hyperlipidemia, unspecified; Z79.82 Long term (current) use of aspirin; Z79.899 Other long term (current) drug therapy; Z95.1 Presence of aortocoronary bypass graft; Z87.891 Personal history of nicotine dependence; W18.09XA Striking against other object with subsequent fall, initial encounter; Z68.38 Body mass index [BMI] 38.0-38.9, adult
CPT/HCPCS: 71101; 99284

== ENCOUNTER 2021-12-01 07:53 | Day surgery (SDC) | payer MEDICARE, MEDICAID, SELFPAY ==
[2021-12-01] VITALS (7 sets, daily range): BP systolic 117–162; BP diastolic 50–63; PULSE 66–79; RESP 14–20; TEMP 36.6–37.2; O2SAT 95–100; BMI 28.1
--- NOTE | 2021-12-01 09:15 | IMM_PTH ---
PATIENT: JULISSA VEGA LOC: [facility] U#:[id number] AGE/SX: 75/F ROOM: RE12/01/[address]: Dr. Kameron Chan DO : 1945 BED: DIS: 12/01/2021 SPEC #: [id number] RECD: 12/01/21 12:54 STATUS: TIM REErin #: [id number] JOSEPH: 12/01/21 09:[address]: Kameron Chan DEPT: IMMUNOHISTOCHEMISTRY RECD BY: Louise Restrepo ENTERED: 12/01/21 12:54 SP TYPE: IMMUNO OTHR DR: Dr. Levi Laird MD Tissues: Stomach, NOS Procedures: H Pylori (initial) PHYSICIAN & INSTITUTION [place] [id number] SPECIMEN INFORMATION: Tissue Source: Gastric polyp Clinical Info: GI bleed Specimen Number: [id number] CPT code: 71202 METHODOLOGY: Deparaffinized sections of prefer/formalin-fixed tissue or PAP/DQ stained slides are incubated with monoclonal/polyclonal antibodies/oligonucleotide probes. Localization is made via biotin free immunoperoxidase method. Appropriate controls are performed and reacted as expected. Results on target cell population are indicated in the following table: RESULTS: ANTIBODY / CLONE RESULT H Pylori (polyclonal) negative These tests were developed and their performance characteristics determined by [facility]. They may not have been cleared or approved by the U.S. Food and Drug Administration. The FDA has determined that such clearance or approval is not necessary. The above immunohistochemical/dualISH markers are ordered and reviewed by the Pathologist. INTERPRETATION: Gastric polyp, biopsy: Negative for Helicobacter pylori organisms. AM:viky 12/02/2021
--- NOTE | 2021-12-01 09:15 | EGD_PTH ---
PATIENT: JULISSA VEGA LOC: [facility] U#:[id number] AGE/SX: 75/F ROOM: RE12/01/[address]: Dr. Kameron Chan DO : 1945 BED: DIS: 12/01/2021 SPEC #: [id number] RECD: 12/01/21 11:41 STATUS: TIM REErin #: [id number] JOSEPH: 12/01/21 09:[address]: Kameron Chan DEPT: SURGICAL PATHOLOGY RECD BY: Marita Bailon ENTERED: 12/01/21 12:33 SP TYPE: EGD BIOPSY OT DR: Dr. Levi Laird MD Tissues: Gastric mucous membrane Procedures: Surgery Specimen Level IV HEADER OPERATION: EGD ([place]) PRE-OP DIAGNOSIS: GI bleed TISSUE SUBMITTED: Gastric polyp MICROSCOPIC DIAGNOSIS Gastric polyp, biopsy: Hyperplastic polyp. AM:viky 12/02/2021 COMMENT The results of immunohistochemistry for Helicobacter pylori will be reported separately ([id number]). MICROSCOPIC DESCRIPTION Slides are reviewed. GROSS DESCRIPTION Received in fixative is one container labeled with the patient's name and designated gastric polyp. The specimen consists of a schaefer-pink polyp measuring 1 x 0.5 x 0.5 cm. The polyp is bisected. Also present in the container are multiple fragments of mucoid tissue. The entire specimen is submitted in one cassette. / SJ:rg 12/01/2021 TC:1 CPT: 64216
--- NOTE | 2021-12-01 09:59 | PCM.HP.BLA ---
History and Physical Date of Admission: 12/01/21 JULISSA VEGA, is a 75 F who presents to the office today for discussion of EGD and colonoscopy results.? Patient is accompanied by her daughter.? EGD and colonoscopy were performed to follow-up acute anemia on chronic anemia due to GI bleed GI bleed for which patient was hospitalized in March 2021.? Dr. Chan found 3 bleeding angiodysplastic lesions in the stomach, coagulation using heater probe was unsuccessful, area was successfully injected with epinephrine for hemostasis and coagulation for hemostasis using argon beam was successful.? There was diffuse mucosal variance in the entire duodenum which was characterized by discoloration and friability.? In the colon there was one 5 mm polyp, this was a tubular adenoma.? Biopsy from the terminal ileum was nonpathologic. Patient and her daughter report her recent hemoglobin was above 11.? Daughter tracks her mother's labs very closely.? Labs are drawn routinely at dialysis.? Patient is not interested in having capsule endoscopy done, especially since magnesium citrate prep is needed. Dr. Chan first saw her when she was hospitalized in March 2021 for acute symptomatic anemia on chronic anemia. She had intermittent dark stools. Hemoglobin was 6.? She received 2 units of packed red blood cells.? Hemoglobin was 7.1 at discharge.? She has end-stage renal disease on dialysis Sunday.? During that that hospitalization Dr. Chan did EGD and colonoscopy.? Esophagus was normal.? Red blood was found on the lesser curvature of the stomach.? Three 5 mm polyps with bleeding were found in the stomach.? Duodenum was normal.? Fifteen 1 to 3 mm polyps were removed from the colon.? 3 small angiodysplastic lesions with bleeding were found in the colon, those were treated with argon beam successfully.? Microscopic diagnosis: Tubular adenomas in the colon, hyperplastic polyps in the stomach, negative H. pylori. She taiwo on omeprazole 40 mg daily.? She has no GI complaints.? Denies nausea, vomiting, hematemesis, dysphagia, heartburn, abdominal pain, diarrhea, constipation, melena, hematochezia. 09/13/2021 EGD and colonoscopy Impression: ? - Normal esophagus. ? - Red blood in the gastric fundus. ? - Three bleeding angiodysplastic lesions in the ? stomach. Treatment not successful. Treated with ? a heater probe. Injected. Treated with argon ? beam coagulation. ? - Mucosal variant in the duodenum. ? - No specimens collected. Impression: ? - One 5 mm polyp in the sigmoid colon, removed ? with a cold snare. Resected and retrieved. ? - Congested mucosa in the terminal ileum. ? Biopsied. MICROSCOPIC DIAGNOSIS A.? Terminal ileum, biopsy: ?A fragment of small intestinal mucosa, no pathologic diagnosis. B.? Sigmoid colon polyp, biopsy: ?Tubular adenoma ROS Const Constitutional: No fatigue ENT ENT: No difficulty swallowing Gastro GI: No abdominal pain, belching, bloating, change in bowel habits, change in stool character, coffee ground emesis, constipation, cramping, diarrhea, heartburn, difficulty swallowing, feeling full early, excessive flatus, incontinent of stools, Vomiting blood/hematemesis, Blood in stool, loose stools, Black,tarry stools, nausea/dyspepsia, pain with swallowing, vomiting or other Musc Musculoskeletal: Positive for numbness, tingling, Arthritis and restless legs; No joint pain Skin Skin: Positive for dry skin and itchy eyes; No yellowing of the eye Neuro Neurology: Positive for numbness, tingling and restless legs Psych Psychiatric: No anxiety and No depression Endo Endocrine: No fatigue Aller/Imm Allergy/Immunologic: Positive for itchy eyes Garrick/Lymp Hematologic/Lymphatic: Positive for easy bruising; No easy bleeding Exam Const General: cooperative and comfortable Orientation: alert, awake and oriented x3 Quality Reporting Tobacco Screening ([facility] 138) Smoking Status: Former smoker Assessment and Plan Assessment and Plan (1) GI bleed: ?Status:?Acute ?Plan: I had a long discussion with pt and daughter.? We reviewed her EGD and colonoscopy and biopsy results from both March and September.? I answered all their questions.? I reviewed case with Dr Chan. If hgb drops significantly the next step can be EGD with placement of PillCam capsule.? Patient does not want to do magnesium citrate prep for outpatient PillCam capsule endoscopy.? The plan would be clears for 1 day, Reglan 5 mg 3 times daily x3 days and azithromycin 500 mg daily x3 days, EGD during which Dr. Chan would place the PillCam. (2) Anemia: ?Status:?Acute ? ? ? Medications: Resumed omeprazole 40 mg PO DAILY I have re-examined the patient. There are no clinical changes since date of exam.
--- NOTE | 2021-12-01 10:37 | SUR.PHASEI ---
FREQUENT MOIST COUGH WITH LARGE AMOUNT TENACIOUS WHITE SECRETIONS EXPECTORATED ON PACU ARRIVAL
--- NOTE | 2021-12-01 10:40 | OP.CCLET_ITS ---
12/01/2021 Levi Laird Re : Upper GI endoscopy procedure for Shante Fuenteshaider Laird This procedure was performed on November. My impressions and recommendations are as follows: Impressions : - Grade I esophageal varices. - LA Grade A reflux esophagitis. Biopsied. - Medium-sized hiatal hernia. - Dieulafoy lesion of stomach. - A single gastric polyp. Resected and retrieved. - No gross lesions in the second portion of the duodenum. Recommendations : - Discharge patient to home. - Full liquid diet today. - Continue present medications. - Await pathology results. - Repeat upper endoscopy in 1 month for surveillance based on pathology results. My findings are described in the full procedure note, which is enclosed. If I can be of further assistance, please feel free to contact me at . Sincerely, Kameron Chan, 12/01/2021 10:39:47 AM This report has been signed electronically.
--- NOTE | 2021-12-01 10:40 | OP.EGD_ITS ---
Patient Name: Shante Trujillo Procedure Date: 12/01/2021 9:55 AM Date of : 1945 Age: 75 Procedure: Upper GI endoscopy Indications: Iron deficiency anemia secondary to chronic blood loss, Iron deficiency anemia, Occult blood in stool Providers: Kameron Chan DO Referring MD: Kameron Chan DO Medicines: Monitored Anesthesia Care Patient Profile: This is a 75 year old female. Refer to note in patient chart for documentation of history and physical. Patient has symptoms of chronic abdominal cramping. She is status post EGD for treatment of bleeding within the past six months. Complications: No immediate complications. Procedure: Pre-Anesthesia Assessment: - Prior to the procedure, a History and Physical was performed, and patient medications and allergies were reviewed. The patient is competent. The risks and benefits of the procedure and the sedation options and risks were discussed with the patient. All questions were answered and informed consent was obtained. Patient identification and proposed procedure were verified by the physician in the pre-procedure area. Mental Status Examination: alert and oriented. Airway Examination: normal oropharyngeal airway and neck mobility. Respiratory Examination: clear to auscultation. CV Examination: normal. Prophylactic Antibiotics: The patient does not require prophylactic antibiotics. Prior Anticoagulants: The patient has taken no previous anticoagulant or antiplatelet agents. ASA Grade Assessment: III - A patient with severe systemic disease. After reviewing the risks and benefits, the patient was deemed in satisfactory condition to undergo the procedure. The anesthesia plan was to use monitored anesthesia care (MAC). Immediately prior to administration of medications, the patient was re-assessed for adequacy to receive sedatives. The heart rate, respiratory rate, oxygen saturations, blood pressure, adequacy of pulmonary ventilation, and response to care were monitored throughout the procedure. The physical status of the patient was re-assessed after the procedure. After obtaining informed consent, the endoscope was passed under direct vision. Throughout the procedure, the patient's blood pressure, pulse, and oxygen saturations were monitored continuously. The Endoscope was introduced through the mouth, and advanced to the second part of duodenum. The upper GI endoscopy was accomplished without difficulty. The patient tolerated the procedure well. Scope In: 10:04:25 AM Scope Out: 10:31:15 AM Total Procedure Duration Time 0 hours 26 minutes 50 seconds Findings: Grade I varices were found in the upper third of the esophagus. They were 5 mm in largest diameter. LA Grade A (one or more mucosal breaks less than 5 mm, not extending between tops of 2 mucosal folds) esophagitis with no bleeding was found 36 to 38 cm from the incisors. Biopsies were taken with a cold forceps for histology. Verification of patient identification for the specimen was done. Estimated blood loss was minimal. A medium-sized hiatal hernia was present. A Dieulafoy lesion with oozing bleeding and stigmata of recent bleeding was found in the gastric fundus. Area was successfully injected with 3 mL of a 1:10,000 solution of epinephrine for hemostasis. Coagulation for hemostasis using heater probe was successful. Estimated blood loss was minimal. Coagulation for hemostasis using heater probe was successful. To prevent bleeding post-intervention, one hemostatic clip was successfully placed. There was no bleeding at the end of the procedure. A single 5 mm pedunculated polyp with bleeding and stigmata of recent bleeding was found on the lesser curvature of the stomach. The polyp was removed with a hot snare. Resection and retrieval were complete. Verification of patient identification for the specimen was done. Estimated blood loss was minimal. No gross lesions were noted in the second portion of the duodenum. Impression: - Grade I esophageal varices. - LA Grade A reflux esophagitis. Biopsied. - Medium-sized hiatal hernia. - Dieulafoy lesion of stomach. - A single gastric polyp. Resected and retrieved. - No gross lesions in the second portion of the duodenum. Recommendation: - Discharge patient to home. - Full liquid diet today. - Continue present medications. - Await pathology results. - Repeat upper endoscopy in 1 month for surveillance based on pathology results. Procedure Code(s): --- Professional --- 73626, 59, Esophagogastroduodenoscopy, flexible, transoral; with control of bleeding, any method 73749, Esophagogastroduodenoscopy, flexible, transoral; with removal of tumor(s), polyp(s), or other lesion(s) by snare technique 64435, 59,51, Esophagogastroduodenoscopy, flexible, transoral; with biopsy, single or multiple CPT copyright 2017 [employer]. All rights reserved. The codes documented in this report are preliminary and upon cover inspector review may be revised to meet current compliance requirements. Kameron Chan DO 12/01/2021 10:39:47 AM This report has been signed electronically. Number of Addenda: 0 Note Initiated On: 12/01/2021 9:55 AM
[2021-12-01 11:18] LABS: Absolute Neutrophil Count 5.6 X10^3/uL (2.0-7.7); Basophil# 0.02 X10^3/uL; Basophil% 0.3 % (0-1); Eosinophil# 0.14 X10^3/uL; Eosinophils% 1.9 % (0-5); Hematocrit 31.1 % (37-47); Hemoglobin 9.6 g/dL (12.0-15.0); Lymphocyte % 13.5 % (19-41); Mean Corp Hgb Conc 30.9 g/dL (32-36); Mean Corpuscular Hgb 28.3 pg (27.0-32.0); Mean Corpuscular Volume 91.7 fL (81-99); Mean Platelet Vol. 10.6 fl (6.2-12.0); Monocyte# 0.58 X10^3/uL; Monocyte% 7.8 % (0-10); NRBC Flagged by Analyzer 0 % (0-5); Neutrophil # 5.59 X10^3/uL (2.7-7.7); Neutrophil % 75.7 % (47-70); Platelet Count 266 K/mm3 (150-450); RBC Distribution Width CV 19.1 % (11.6-14.6); RBC Distribution Width SD 64.1 fl (35.1-43.9); Red Blood Count 3.39 M/mm3 (4.2-5.4); White Blood Count 7.4 K/mm3 (4.4-11.0)
== END 2021-12-01 11:36 | disposition home or self-care (01) ==
LOC: EN 07:58 → AC 08:01
PROVIDERS: PCP Family Medicine; Referring Provider Family Medicine; Visit Provider Internal Medicine Gastroenterology
PROC: 0DJ08ZZ Inspection of Upper Intestinal Tract, Via Natural or Artificial Opening Endoscopic (ICD-10-PCS; CPT 43235; principal; 2021-12-01 09:10)
DX: K31.82 Dieulafoy lesion (hemorrhagic) of stomach and duodenum (principal); I85.00 Esophageal varices without bleeding; J44.9 Chronic obstructive pulmonary disease, unspecified; I50.32 Chronic diastolic (congestive) heart failure; I27.20 Pulmonary hypertension, unspecified; I11.0 Hypertensive heart disease with heart failure; J96.11 Chronic respiratory failure with hypoxia; Z68.41 Body mass index [BMI] 40.0-44.9, adult; K31.7 Polyp of stomach and duodenum; D50.0 Iron deficiency anemia secondary to blood loss (chronic); I25.10 Atherosclerotic heart disease of native coronary artery without angina pectoris; E66.9 Obesity, unspecified; E78.5 Hyperlipidemia, unspecified; Z95.1 Presence of aortocoronary bypass graft; Z79.899 Other long term (current) drug therapy; Z79.82 Long term (current) use of aspirin; I34.0 Nonrheumatic mitral (valve) insufficiency; G47.33 Obstructive sleep apnea (adult) (pediatric); I36.1 Nonrheumatic tricuspid (valve) insufficiency; F41.9 Anxiety disorder, unspecified; G25.81 Restless legs syndrome; F17.210 Nicotine dependence, cigarettes, uncomplicated; K21.00 Gastro-esophageal reflux disease with esophagitis, without bleeding; K44.9 Diaphragmatic hernia without obstruction or gangrene
CPT/HCPCS: 43239; 43255; 43251; 85025; 88305; 88342; J7040; J7120; J3490

== ENCOUNTER 2021-12-08 11:14 | Emergency (ER) | payer MEDICARE, MEDICAID, SELFPAY ==
[2021-12-08 11:16] VITALS: BP 171/60; PULSE 72; RESP 18; TEMP 36.5; O2SAT 95; BMI 28.1
--- NOTE | 2021-12-08 12:07 | RAD_ITS ---
STUDY: X-RAY - UNILATERAL RIBS ( LEFT ) WITH CHEST REASON FOR EXAM: Female, 76 years old. 3 week history of cough and shortness of breath. Left rib pain following a recent fall. TECHNIQUE - RIBS: 4 view(s) of the ribs. TECHNIQUE - CHEST: Single PA view of the chest. COMPARISON: Comparison is made with prior chest radiograph dated 11/28/2021. FINDINGS - RIBS: Normal visualized ribs without a demonstrated fracture. FINDINGS - CHEST: A right-sided double-lumen catheter is seen with the tip at the junction of the superior vena cava and right atrium. Since prior study, there is evidence of increased markings at the left lung base. Early left basilar infiltrate should be ruled out. There is no demonstrated pleural abnormality. Sternal cerclage wires and vascular clips are present from a prior sternotomy and coronary artery bypass graft procedure (CABG). Normal mediastinum and james. Normal visualized pulmonary arteries. There is atherosclerotic calcification of the aortic arch with tortuosity. There are diffuse degenerative changes of the visualized thoracic spine. Normal visualized ribs, clavicles, and shoulders. Large amount of fecal material is seen in the colon. RAD/Ribs Uni Min 3V w/PA Chest IMPRESSION: RIBS: Normal x-ray examination of the ribs. CHEST: Increased markings at the left lung base suggestive of left basilar atelectasis and/or early infiltrate. Electronically Signed: Peter Bahena MD at 12:21 EDT ,
--- NOTE | 2021-12-08 13:06 | EX.ED.DYSGE1 ---
HPI History of Present Illness Chief Complaint: Cough Narrative Narrative: -year-old female presenting with cough and left-sided rib pain. She is a recent fall with rib contusion. Lidocaine patches were helping but now she has a cough. No fever, chills, nausea, vomiting. No body aches. Patient has been otherwise well. Family states that she was sleeping on the couch for the last couple of days and it made her back hurt. It is also made her rib hurt more. [facility] Medical History (HFpEF) heart failure with preserved ejection fraction Accidental fall Anxiety Arthritis Atherosclerotic heart disease of [place] coronary artery without angina pectoris CAD (coronary artery disease) Chronic diastolic heart failure COPD (chronic obstructive pulmonary disease) Diabetes mellitus type 2 in obese Dyslipidemia Easy bruising ESRD (end stage renal disease) on dialysis Essential hypertension History of blood transfusion History of renal dialysis Leg cramps Morbid obesity with BMI of 40.0-44.9, adult Non-rheumatic mitral regurgitation Non-rheumatic tricuspid valve insufficiency On home oxygen therapy Pulmonary hypertension Restless leg syndrome Restless legs Shortness of breath on exertion Toe fracture, left Wears dentures Wears glasses Home Medications amitriptyline 100 mg tablet 100 mg PO QHS mental health 04/09/13 [History Last Taken 11/25/18] aspirin 81 mg tablet,delayed release 81 mg PO DAILY HEART HEALTH 10/25/17 [History Last Taken 11/26/18] atorvastatin 80 mg tablet 80 mg PO DAILY CHOLESTEROL 10/25/17 [History Last Taken 11/25/18] amlodipine 10 mg tablet 10 mg PO DAILY BP 06/01/18 [History Last Taken 09/13/21 09:50] doxazosin 8 mg tablet 8 mg PO QHS blood pressure 08/20/18 [History Last Taken 11/25/18] omeprazole 40 mg capsule,delayed release 40 mg PO DAILY gerd 08/20/18 [History Last Taken 09/13/21 09:50] acetaminophen 325 mg tablet 650 mg PO Q6H PRN PRN pain 12/06/18 [Rx Last Taken Unknown] ascorbic acid (vitamin C) 500 mg tablet 500 mg PO DAILY@0800,1700 12/06/18 [Rx Last Taken Unknown] hydralazine 100 mg tablet 100 mg PO TID diuretic 01/01/19 [History Last Taken 09/13/21 09:50] bumetanide 2 mg tablet 2 mg PO DAILY diuretic 03/14/19 [History Last Taken Unknown] carvedilol 6.25 mg tablet 6.25 mg PO BID blood pressure 03/14/19 [History Last Taken 09/13/21 09:50] nitroglycerin 0.4 mg sublingual tablet 0.4 mg sublingual Q5M PRN CHEST PAIN 03/14/19 [History Last Taken Unknown] albuterol sulfate 1.25 mg/3 mL solution for nebulization 1.25 mg (3 mL) inhalation 4X/DAY Wheezing #360 mL 08/17/20 [Rx Last Taken Unknown] albuterol sulfate 90 mcg/actuation aerosol inhaler (ProAir HFA) 2 puff inhalation Q6H PRN sob 09/30/20 [History Last Taken Unknown] prednisone 2.5 mg tablet 2.5 mg PO DAILY inflammation #90 tabs 03/22/21 [Rx Last Taken Unknown] isosorbide mononitrate 60 mg tablet,extended release 24 hr 60 mg PO DAILY #90 tabs 04/15/21 [Rx Last Taken 09/13/21 09:50] ropinirole 0.5 mg tablet 0.5 mg PO QHS 07/07/21 [History Last Taken Unknown] budesonide-formoterol HFA 160 mcg-4.5 mcg/actuation aerosol inhaler (Symbicort) 2 inh inhalation BID breathing #3 ea 10/02/21 [Rx Last Taken Unknown] hydrocodone-acetaminophen 5-325mg 5mg-325mg 1 tab PO Q6H PRN pain 3 days #10 tabs 11/28/21 [Rx Last Taken Unknown] lidocaine 5 % topical patch (Lidoderm) 1 patch topical DAILY #15 ea 11/28/21 [Rx Last Taken Unknown] Allergy/AdvReac Type Severity Reaction Status Date / Time Penicillins Allergy Hives Verified 12/08/21 11:16 adhesive tape AdvReac Other Verified 12/08/21 11:16 Family History Mother Heart disease Surgical History H/O four vessel coronary artery bypass graft (~02/12/14) Hx of colonoscopy Hx of esophagogastroduodenoscopy Social History household members: family Smoking Status: Former smoker quit date: 03/05/10 alcohol intake: current alcohol intake frequency: other substance use type: does not use ROS ROS ED Constitutional Constitutional ED: Denies chills or fever(s) Eyes Eyes: Denies change in vision or diplopia ENT ENT ED: Denies rhinorrhea or sore throat Cardiovascular Cardiovascular: Reports other Details: Left-sided rib pain Respiratory/Chest Respiratory/Chest: Reports cough Gastrointestinal Gastrointestinal: Denies abdominal pain or constipation Genitourinary Genitourinary ED: Denies dysuria or hematuria Musculoskeletal Musculoskeletal: Reports back pain Integumentary Denies abscess or Abrasions Neurologic Neurologic: Denies headache(s) or paresthesias Psychiatric Psychiatric: Denies anxiety or depression Endocrine Endocrinology: Denies cold intolerance or heat intolerance EXAM Physical Exam Const Vital Signs: 12/08/21 11:16 12/08/21 11:59 Temperature 97.7 F L Temperature Source Temporal Pulse Rate 72 Respiratory Rate 18 Respiratory Effort Normal Non-Labored Respiratory Pattern Normal Blood Pressure 171/60 H Blood Pressure Mean 97 Pulse Ox 95 Oxygen Delivery Method Nasal Cannula Oxygen Flow Rate (L/min) 1.5 Positive well nourished General Appearance ED: Negative for pallor HEENT Reports moist mucous membranes Eyes PERRL Chest Wall Chest Narrative: Tenderness palpation left ribs. No crepitance, deformity. Equal symmetric breath sounds and chest wall rise. Resp normal respiratory effort Resp Narrative: Faint bilateral expiratory wheezes Auscultation: Negative for rales GI normal to inspection, nondistended, normoactive bowel sounds Back/Spine no CVA tenderness Neuro oriented x3 and CN's II-XII intact bilaterally Sensorium / Orientation: alert Psych mental status grossly normal Skin General Skin Exam: Negative for jaundice or pallor MDM MDM MDM Narrative Medical decision making narrative: 76-year-old female with a cough. She states she has had this cough that she had a fall and injured her left ribs. She did not have a rib fracture. She is on her baseline nasal cannula at 1.5 L. She is not having any symptoms of systemic illness such as fever, chills, body aches. She has been taking Mucinex at home. She still has some tenderness to the left ribs. She is got a faint wheeze which her family states she always has. She has breathing treatments at home which she is using. I did obtain a chest x-ray and on my interpretation there is a small early infiltrate in the left lower lobe. Radiologist interprets this as atelectasis versus infiltrate. Given the patient is having a cough I will start her on doxycycline. She is given a dose of 60 mg of prednisone and will given a prescription for a burst. She is on 2.5 g daily. Patient is given incentive spirometer as well. She is discharged home in stable condition. Impression: 1. Left lower lobe pneumonia 2. Cough 3. History of left rib contusion Lab Data Attestation: I reviewed the patient's lab results. Radiography Diagnostic Testing: Clinical Impression(s) from Imaging Studies Ribs w/Chest X-Ray 12/08/21 12:07 IMPRESSION: RIBS: Normal x-ray examination of the ribs. CHEST: Increased markings at the left lung base suggestive of left basilar atelectasis and/or early infiltrate. Electronically Signed: Peter Bahena MD at 12:21 EDT , Discharge Plan Triage Chief Complaint: Cough Other Complaint: Chest Other Shortness of Breath ED Provider: Martinez Camarena Dx/Rx/DC Orders Prescriptions: No Action albuterol sulfate [ProAir HFA] 90 mcg/actuation HFA aerosol inhaler 2 puff inhalation Q6H PRN (Reason: sob) prednisone 2.5 mg tablet 2.5 mg PO DAILY Qty: 90 1RF ropinirole 0.5 mg tablet 0.5 mg PO QHS Label Comments: TAKE 1 TABLET BY MOUTH ONCE DAILY amitriptyline 100 MG tablet 100 mg PO QHS Label Comments: MENTAL HEALTH atorvastatin 80 MG tablet 80 mg PO DAILY Label Comments: aspirin 81 MG tablet 81 mg PO DAILY Hold Instructions: Resume on 03/20/21. amlodipine 10 MG tablet 10 mg PO DAILY omeprazole 40 MG capsule,delayed release(DR/EC) 40 mg PO DAILY Hold Instructions: Resume on 05/08/21. doxazosin 8 MG tablet 8 mg PO QHS hydralazine 100 mg tablet 100 mg PO TID acetaminophen 325 MG tablet 650 mg PO Q6H PRN PRN (Reason: pain) 0RF ascorbic acid (vitamin C) 500 MG tablet 500 mg PO DAILY@0800,1700 0RF nitroglycerin 0.4 MG tablet, sublingual 0.4 mg SL Q5M PRN (Reason: CHEST PAIN) carvedilol 6.25 MG tablet 6.25 mg PO BID bumetanide 2 MG tablet 2 mg PO DAILY hydrocodone-acetaminophen 5-325 mg tablet 1 tab PO Q6H PRN (Reason: pain) 3 Days Qty: 10 0RF lidocaine [Lidoderm] 5 % adhesive patch,medicated 1 patch topical DAILY Qty: 15 0RF Rx Instructions: leave on most painful area for up to 12 hrs albuterol sulfate 1.25 mg/3 mL solution for nebulization 1.25 mg INHALATION 4X/DAY Qty: 360 6RF isosorbide mononitrate 60 mg tablet extended release 24 hr 60 mg PO DAILY Qty: 90 6RF budesonide-formoterol [Symbicort] 160-4.5 mcg/actuation HFA aerosol inhaler 2 inh INHALATION BID Qty: 3 3RF Rx Instructions: administer with spacer, rinse mouth after each use Primary Care Provider: Levi Laird Referrals: Levi Laird MD [Primary Care Provider] -
[2021-12-08] MEDS: predniSONE 20 MG Tablet 60 MG PO (13:14)
[2021-12-08] MEDS: Doxycycline 100 MG CAPSULE PO (13:14)
[2021-12-08] MEDS: Lidocaine 5% Patch 1 PATCH TOPICAL (13:14)
[2021-12-08 13:26] VITALS: PULSE 74; RESP 17; O2SAT 97
== END 2021-12-08 13:28 | disposition home or self-care (01) ==
PROVIDERS: Emergency Provider Student in an Organized Health Care Education/Training Program; PCP Family Medicine; Visit Provider Student in an Organized Health Care Education/Training Program
DX: J18.9 Pneumonia, unspecified organism (principal); I13.2 Hypertensive heart and chronic kidney disease with heart failure and with stage 5 chronic kidney disease, or end stage renal disease; J44.9 Chronic obstructive pulmonary disease, unspecified; I50.32 Chronic diastolic (congestive) heart failure; E11.22 Type 2 diabetes mellitus with diabetic chronic kidney disease; N18.6 End stage renal disease; I25.10 Atherosclerotic heart disease of native coronary artery without angina pectoris; W19.XXXA Unspecified fall, initial encounter; Z87.891 Personal history of nicotine dependence; S20.219A Contusion of unspecified front wall of thorax, initial encounter; E78.5 Hyperlipidemia, unspecified; R05.9 Cough, unspecified
CPT/HCPCS: 71101; 99283

== ENCOUNTER → 2021-12-14 | Outpatient (CLI) | payer MEDICARE, MEDICAID, SELFPAY ==
--- NOTE | 2021-12-14 06:42 | CT_ITS ---
STUDY: CTA ABDOMEN AND PELVIS WITH CONTRAST REASON FOR EXAM: Female, 76 years old. GI bleed. -- coordinate to receive dialysis afterward. RADIATION DOSAGE (If Supplied By Facility): CTDIvol = ( 25.06 ) mGy, DLP = ( 1159.61 ) mGycm TECHNIQUE: Transaxial images were obtained from the dome of the diaphragm to the symphysis pubis without oral contrast. IV 100mL Isovue-370 was administered. Sagittal and coronal images were reconstructed. Individualized dose optimization techniques were used for this CT. COMPARISON: Comparison is made with prior examination of 11/18/2018. FINDINGS: Stable mild increased linear markings at the lung bases suggestive of scarring. Tiny left pleural effusion. Coronary artery calcification. Normal liver. The patient is status post cholecystectomy. Normal spleen. Normal pancreas. Normal bilateral adrenal glands. Normal right kidney. Normal left kidney. Normal visualized stomach. Stable 2.5 cm x 2.7 cm diverticulum in the second portion of the duodenum. Normal small intestine. There are multiple colonic diverticula consistent with diverticulosis. There are surgical clips in the region of the appendix consistent with a prior appendectomy. There is diffuse atherosclerotic calcification of the abdominal aorta and its major visceral branches. The distal abdominal aorta has a transverse dimension of 2.5 cm. Normal inferior vena cava. There is borderline retroperitoneal lymphadenopathy with enlarged nodes no greater than 10mm in the short axis diameter. Normal urinary bladder. A small amount of free fluid is seen in the pelvis. There is a small umbilical hernia containing fat. There are diffuse degenerative changes of the visualized lumbar spine. CT/CT ANGIO ABD&PEL W/O&W/DYE IMPRESSION: Tiny amount of free fluid in the cul-de-sac. Umbilical hernia. Sigmoid diverticulosis. Tiny left pleural effusion with scarring at the lung bases. Electronically Signed: Peter Bahena MD at 14:25 EDT ,
== END | disposition home or self-care (01) ==
LOC: CT 06:41
PROVIDERS: PCP Family Medicine; Referring Provider Internal Medicine Gastroenterology; Visit Provider Internal Medicine Gastroenterology
DX: K92.2 Gastrointestinal hemorrhage, unspecified (principal)
CPT/HCPCS: 74174; Q9967

== ENCOUNTER → 2022-05-03 | Outpatient (CLI) | payer MEDICARE, MEDICAID, SELFPAY ==
[2022-05-03 16:47] LABS: Absolute Lymphocyte Count 0.61 X10^3/uL (0.83-4.51); Absolute Neutrophil Count 6.5 X10^3/uL (2.0-7.7); Basophil# 0.04 X10^3/uL; Basophil% 0.5 % (0-1); Eosinophils% 1.2 % (0-5); Hematocrit 25.1 % (37-47); Hemoglobin 8.2 g/dL (12.0-15.0); Lymphocyte # 0.61 X10^3/ul (0.83-4.51); Lymphocyte % 7.6 % (19-41); Mean Corp Hgb Conc 32.7 g/dL (32-36); Mean Corpuscular Hgb 28.4 pg (27.0-32.0); Mean Corpuscular Volume 86.9 fL (81-99); Monocyte% 7.5 % (0-10); NRBC Flagged by Analyzer 0 % (0-5); Neutrophil % 80.7 % (47-70); Platelet Count 301 K/mm3 (150-450); RBC Distribution Width CV 17.5 % (11.6-14.6); RBC Distribution Width SD 56.2 fl (35.1-43.9); Red Blood Count 2.89 M/mm3 (4.2-5.4); White Blood Count 8.1 K/mm3 (4.4-11.0)
== END | disposition home or self-care (01) ==
PROVIDERS: PCP Family Medicine; Visit Provider Nurse Practitioner Adult Health
DX: D50.9 Iron deficiency anemia, unspecified (principal)
CPT/HCPCS: 36415; 85025

== ENCOUNTER 2022-05-04 10:17 | Observation (INO) | payer MEDICARE, MEDICAID, SELFPAY ==
[2022-05-04 10:17] VITALS: BP 145/54; PULSE 80; RESP 18; TEMP 36.2; O2SAT 94
[2022-05-04 10:38] VITALS: BP 157/54; PULSE 97; RESP 18; O2SAT 94; BMI 27.3
--- NOTE | 2022-05-04 10:49 | EX.ED.DYSGE1 ---
HPI History of Present Illness Chief Complaint: Abn Labs Informant: patient, family and SNF (Dr. Chan, gastroenterology) Narrative Narrative: Patient has a history of occult GI bleeding, she states occasional black stools, but denies any recent bright red blood per rectum or hematemesis. She actually has been feeling well, she had a follow-up appointment yesterday with her client support administrator, and today was called because her hemoglobin continues to drop and is 8.2, after having checks at dialysis weekly for the last couple weeks and continuing to drop from hemoglobins in the 10 range, so she was referred to the ED to be admitted for more urgent EGD since the earliest they can schedule her for an outpatient was july. The patient has COPD, end-stage renal disease on dialysis, she was last dialyzed yesterday, and she states she feels relatively well and at baseline. She does have chronic dyspnea with exertion, she denies any angina recently, or abdominal pain/nausea. [facility] Medical History (HFpEF) heart failure with preserved ejection fraction Accidental fall Anxiety Arthritis Atherosclerotic heart disease of [place] coronary artery without angina pectoris CAD (coronary artery disease) Chronic diastolic heart failure COPD (chronic obstructive pulmonary disease) Diabetes mellitus type 2 in obese Dyslipidemia Easy bruising ESRD (end stage renal disease) on dialysis Essential hypertension History of blood transfusion History of renal dialysis Leg cramps Morbid obesity with BMI of 40.0-44.9, adult Non-rheumatic mitral regurgitation Non-rheumatic tricuspid valve insufficiency On home oxygen therapy Pulmonary hypertension Restless leg syndrome Restless legs Shortness of breath on exertion Toe fracture, left Wears dentures Wears glasses Home Medications amitriptyline 100 mg tablet 100 mg PO QHS mental health 04/09/13 [History Last Taken 05/03/22] aspirin 81 mg tablet,delayed release 81 mg PO DAILY HEART HEALTH 10/25/17 [History Last Taken 05/03/22] atorvastatin 80 mg tablet 80 mg PO DAILY CHOLESTEROL 10/25/17 [History Last Taken 05/03/22] amlodipine 10 mg tablet 10 mg PO DAILY BP 06/01/18 [History Last Taken 05/04/22] doxazosin 8 mg tablet 8 mg PO QHS blood pressure 08/20/18 [History Last Taken 05/03/22] omeprazole 40 mg capsule,delayed release 40 mg PO DAILY gerd 08/20/18 [History Last Taken 05/04/22] hydralazine 100 mg tablet 100 mg PO TID diuretic 01/01/19 [History Last Taken 05/04/22] bumetanide 2 mg tablet 2 mg PO DAILY diuretic 03/14/19 [History Last Taken 05/04/22] carvedilol 6.25 mg tablet 6.25 mg PO BID blood pressure 03/14/19 [History Last Taken 05/04/22] nitroglycerin 0.4 mg sublingual tablet 0.4 mg sublingual Q5M PRN CHEST PAIN 03/14/19 [History Last Taken Unknown] albuterol sulfate 1.25 mg/3 mL solution for nebulization 1.25 mg (3 mL) inhalation 4X/DAY Wheezing #360 mL 08/17/20 [Rx Last Taken 05/04/22] albuterol sulfate 90 mcg/actuation aerosol inhaler (ProAir HFA) 2 puff inhalation Q6H PRN sob 09/30/20 [History Last Taken Unknown] ropinirole 0.5 mg tablet 0.5 mg PO QHS 07/07/21 [History Last Taken 05/03/22] isosorbide mononitrate 60 mg tablet,extended release 24 hr 60 mg PO DAILY #90 tabs 12/26/21 [Rx Last Taken 05/04/22] budesonide-formoterol HFA 160 mcg-4.5 mcg/actuation aerosol inhaler (Symbicort) 2 inh inhalation BID breathing #3 ea 03/10/22 [Rx Last Taken 05/04/22] acetaminophen 500 mg tablet (Acetaminophen Extra Strength) 1,000 mg PO DAILY PRN Pain 05/04/22 [History Last Taken Unknown] ascorbic acid (vitamin C) 500 mg tablet 500 mg PO DAILY SUPPLEMENT 05/04/22 [History Last Taken 05/04/22] prednisone 5 mg tablet 5 mg PO DAILY INFLAMMATION 05/04/22 [History Last Taken 05/04/22] sevelamer carbonate 800 mg tablet 800 mg PO TIDCM PHOSPHATE 05/04/22 [History Last Taken 05/03/22] Allergy/AdvReac Type Severity Reaction Status Date / Time Penicillins Allergy Hives Verified 05/04/22 10:34 adhesive tape AdvReac Other Verified 05/04/22 10:34 Family History Mother Heart disease Surgical History H/O four vessel coronary artery bypass graft (~04/16/13) Hx of colonoscopy Hx of esophagogastroduodenoscopy Social History household members: family Smoking Status: Former smoker quit date: 03/05/10 alcohol intake: current alcohol intake frequency: other substance use type: does not use ROS ROS ED Constitutional Constitutional ED: Denies chills or fever(s) Eyes Eyes: Denies change in vision or diplopia ENT ENT ED: Denies rhinorrhea or sore throat Cardiovascular Cardiovascular: Denies chest pain or palpitations Respiratory/Chest Respiratory/Chest: Reports cough and dyspnea on exertion Gastrointestinal Gastrointestinal: Reports as per HPI and melena; Denies abdominal pain, diarrhea, nausea or vomiting Genitourinary Genitourinary ED: Denies dysuria or hematuria Musculoskeletal Musculoskeletal: Denies back pain or neck pain Integumentary Denies abscess or rash Neurologic Neurologic: Denies headache(s), paresthesias or weakness Psychiatric Psychiatric: Denies anxiety or suicidal thoughts EXAM Physical Exam Const Vital Signs: 05/04/22 10:17 05/04/22 10:38 05/04/22 10:38 Temperature 97.2 F L Temperature Source Temporal Pulse Rate 80 97 Respiratory Rate 18 18 Blood Pressure 145/54 H 157/54 H Blood Pressure Mean 84 88 Pulse Ox 94 94 94 Oxygen Delivery Method Nasal Cannula Nasal Cannula Nasal Cannula Oxygen Flow Rate (L/min) 1.5 1.5 1.5 05/04/22 10:56 Temperature Temperature Source Pulse Rate Respiratory Rate Blood Pressure Blood Pressure Mean Pulse Ox 94 Oxygen Delivery Method Nasal Cannula Oxygen Flow Rate (L/min) 1.5 Positive well nourished and well developed Constitutional Narrative: Ambulatory, conversive in full sentences no distress General Appearance ED: well developed and NAD HEENT Reports moist mucous membranes normocephalic and atraumatic Eyes PERRL and EOMs intact bilaterally Neck full ROM and supple Resp normal respiratory effort and clear to auscultation bilaterally Resp Narrative: Diminished throughout otherwise clear and symmetric Cardio regular rate, regular rhythm and no murmurs Rate: Negative for tachycardic GI non-tender and non-distended Auscultation: normoactive bowel sounds Palpation: soft Back/Spine no CVA tenderness General Back: other FROM Extremity normal to inspection General Extremety ED: Negative for edema, pulses abnormal or tenderness General Extremity: Negative for edema or pulses abnormal Neuro oriented x3, CN's II-XII intact bilaterally and no sensory deficits noted Sensorium / Orientation: awake and alert Motor Exam: strength 5/5 throughout Psych mental status grossly normal Skin no rashes or lesions noted and no wounds MDM MDM MDM Narrative Medical decision making narrative: Discussed with Dr. Chan. He agrees with this management and states he will be able to scope the patient tomorrow. I will put her on a Protonix drip. Type and screen obtained, reviewed labs, hemoglobin actually a little higher than yesterday and I do not think in need of emergent transfusion, will discuss with hospitalist. History & Record Review Additional record(s) reviewed:: Prior outpatient record (EGD, showing esophageal varices) and Prior labs Lab Data Attestation: I reviewed the patient's lab results. Labs: Laboratory Results - last 24 hr 05/04/22 05/04/22 05/04/22 10:50 10:50 10:50 WBC 9.6 RBC 3.00 L Hgb 8.3 L Hct 26.6 L MCV 88.7 MCH 27.7 MCHC 31.2 L RDW Std Deviation 56.5 H RDW Coeff of Becca 17.4 H Plt Count 322 MPV 9.9 Immature Gran % (Auto) 3.100 H Neut % (Auto) 78.2 H Lymph % (Auto) 6.7 L [place] % (Auto) 9.0 Eos % (Auto) 2.5 Baso % (Auto) 0.5 Absolute Neuts (auto) 7.5 Absolute Lymphs (auto) 0.64 L Nucleated RBC % 0 Sodium 136 Potassium 3.9 Chloride 98 Carbon Dioxide 28.0 Anion Gap 10 BUN 30 H Creatinine 4.68 H Estim Creat Clear Calc 8.21 Est GFR (MDRD) Af Amer 12 L Est GFR (MDRD) Non-Af 10 L BUN/Creatinine Ratio 6.4 L Glucose 116 H Calcium 8.6 Blood Type A NEGATIVE Antibody Screen NEGATIVE Discharge Plan Dx/Rx/DC Orders Clinical Impression: Acute upper gastrointestinal bleeding, COPD (chronic obstructive pulmonary disease), Acute on chronic blood loss anemia, ESRD on dialysis Disposition Disposition: Acute Care Hospital [facility]
[2022-05-04 10:56] VITALS: O2SAT 94
[2022-05-04 11:00] LABS: Absolute Lymphocyte Count 0.64 X10^3/uL (0.83-4.51); Absolute Neutrophil Count 7.5 X10^3/uL (2.0-7.7); Basophil# 0.05 X10^3/uL; Basophil% 0.5 % (0-1); Eosinophil# 0.24 X10^3/uL; Eosinophils% 2.5 % (0-5); Hematocrit 26.6 % (37-47); Hemoglobin 8.3 g/dL (12.0-15.0); Lymphocyte # 0.64 X10^3/ul (0.83-4.51); Lymphocyte % 6.7 % (19-41); Mean Corp Hgb Conc 31.2 g/dL (32-36); Mean Corpuscular Hgb 27.7 pg (27.0-32.0); Mean Corpuscular Volume 88.7 fL (81-99); Mean Platelet Vol. 9.9 fl (6.2-12.0); Monocyte# 0.86 X10^3/uL; NRBC Flagged by Analyzer 0 % (0-5); Neutrophil # 7.48 X10^3/uL (2.7-7.7); Neutrophil % 78.2 % (47-70); Platelet Count 322 K/mm3 (150-450); RBC Distribution Width CV 17.4 % (11.6-14.6); RBC Distribution Width SD 56.5 fl (35.1-43.9); White Blood Count 9.6 K/mm3 (4.4-11.0)
[2022-05-04 11:11] LABS: Anion Gap 10 (5-15); BUN 30 mg/dL (7-18); BUN/Creat Ratio 6.4 RATIO (10-20); Calcium,Total 8.6 mg/dL (8.5-10.1); Chloride 98 mmol/L (98-107); Creatinine, Serum 4.68 mg/dL (0.55-1.02); EST Glomerular Filtration Rate 10 mL/min (>60); Est Glom Filt Rate - Afr Amer 12 mL/min (>60); Estimated Creatinine Clearance 8.21 ml/min; Glucose 116 mg/dL (74-106); Potassium 3.9 mmol/L (3.5-5.1); Sodium Level 136 mmol/L (136-145)
--- NOTE | 2022-05-04 12:22 | HP.PCM.HOS_ITS ---
HPI - General General Date of Admission: 05/04/22 HPI Narrative JULISSA VEGA, is a 76 F who presents to the hospital by the nurse practitioner for gastroenterology because of concern for her hemoglobin. Her hemoglobin has been as low as 6 and in 2021 was between 7 and 9.6. Today on repeat at 8.3 with no obvious signs of bleeding. Though she does endorse intermittent black stools but no hematemesis. She did have multiple AVMs as well as a Dieulafoy lesion found on her previous EGD. It was also noted at that time that she had some esophageal varices as well. According to the daughter, she has been getting weekly H&H's at dialysis and it has steadily been dropping from 12 in March 2022 down to now 8.3. She denies any abdominal pain. [facility] Medical History (HFpEF) heart failure with preserved ejection fraction Accidental fall Anxiety Arthritis Atherosclerotic heart disease of [place] coronary artery without angina pectoris CAD (coronary artery disease) Chronic diastolic heart failure COPD (chronic obstructive pulmonary disease) Diabetes mellitus type 2 in obese Dyslipidemia Easy bruising ESRD (end stage renal disease) on dialysis Essential hypertension History of blood transfusion History of renal dialysis Leg cramps Morbid obesity with BMI of 40.0-44.9, adult Non-rheumatic mitral regurgitation Non-rheumatic tricuspid valve insufficiency On home oxygen therapy Pulmonary hypertension Restless leg syndrome Restless legs Shortness of breath on exertion Toe fracture, left Wears dentures Wears glasses Home Medications amitriptyline 100 mg tablet 100 mg PO QHS mental health 04/09/13 [History Last Taken 05/03/22] aspirin 81 mg tablet,delayed release 81 mg PO DAILY HEART HEALTH 10/25/17 [History Last Taken 05/03/22] atorvastatin 80 mg tablet 80 mg PO DAILY CHOLESTEROL 10/25/17 [History Last Taken 05/03/22] amlodipine 10 mg tablet 10 mg PO DAILY BP 06/01/18 [History Last Taken 05/04/22] doxazosin 8 mg tablet 8 mg PO QHS blood pressure 08/20/18 [History Last Taken 05/03/22] omeprazole 40 mg capsule,delayed release 40 mg PO DAILY gerd 08/20/18 [History Last Taken 05/04/22] hydralazine 100 mg tablet 100 mg PO TID diuretic 01/01/19 [History Last Taken 05/04/22] bumetanide 2 mg tablet 2 mg PO DAILY diuretic 03/14/19 [History Last Taken 05/04/22] carvedilol 6.25 mg tablet 6.25 mg PO BID blood pressure 03/14/19 [History Last Taken 05/04/22] nitroglycerin 0.4 mg sublingual tablet 0.4 mg sublingual Q5M PRN CHEST PAIN 03/14/19 [History Last Taken Unknown] albuterol sulfate 1.25 mg/3 mL solution for nebulization 1.25 mg (3 mL) inhalation 4X/DAY Wheezing #360 mL 08/17/20 [Rx Last Taken 05/04/22] albuterol sulfate 90 mcg/actuation aerosol inhaler (ProAir HFA) 2 puff inhalation Q6H PRN sob 09/30/20 [History Last Taken Unknown] ropinirole 0.5 mg tablet 0.5 mg PO QHS 07/07/21 [History Last Taken 05/03/22] isosorbide mononitrate 60 mg tablet,extended release 24 hr 60 mg PO DAILY #90 tabs 12/26/21 [Rx Last Taken 05/04/22] budesonide-formoterol HFA 160 mcg-4.5 mcg/actuation aerosol inhaler (Symbicort) 2 inh inhalation BID breathing #3 ea 03/10/22 [Rx Last Taken 05/04/22] acetaminophen 500 mg tablet (Acetaminophen Extra Strength) 1,000 mg PO DAILY PRN Pain 05/04/22 [History Last Taken Unknown] ascorbic acid (vitamin C) 500 mg tablet 500 mg PO DAILY SUPPLEMENT 05/04/22 [History Last Taken 05/04/22] prednisone 5 mg tablet 5 mg PO DAILY INFLAMMATION 05/04/22 [History Last Taken 05/04/22] sevelamer carbonate 800 mg tablet 800 mg PO TIDCM PHOSPHATE 05/04/22 [History Last Taken 05/03/22] Allergy/AdvReac Type Severity Reaction Status Date / Time Penicillins Allergy Hives Verified 05/04/22 10:34 adhesive tape AdvReac Other Verified 05/04/22 10:34 Family History Mother Heart disease Surgical History (Reviewed 03/01/23 @ 15:33 by Joana Fritz PRINTING PRESS OPERATOR, PRINTING PRESS OPERATOR-C) H/O four vessel coronary artery bypass graft (~04/16/13) Hx of colonoscopy Hx of esophagogastroduodenoscopy Social History household members: family Smoking Status: Former smoker quit date: 03/05/10 alcohol intake: current alcohol intake frequency: other substance use type: does not use ROS Constitutional Constitutional: Denies chills, fatigue, fever(s) or malaise Eyes Eyes: Denies blurry vision ENT HEENT: Denies headache(s) or nasal discharge Cardiovascular Cardiovascular: Denies chest pain, dyspnea on exertion or syncope Respiratory/Chest Respiratory/Chest: Denies cough, shortness of breath at rest or shortness of breath with exertion Gastrointestinal Gastrointestinal: Reports melena; Denies constipation, diarrhea, hematemesis, hematochezia, nausea or vomiting Genitourinary Genitourinary: Denies dysuria Neurologic Neurologic: Denies focal weakness, numbness or tremor(s) Psychiatric Psychiatric: Denies anxiety or depression Vital Signs Vital Signs Vital Signs: 05/04/22 10:17 05/04/22 10:38 05/04/22 10:38 Temperature 97.2 F L Temperature Source Temporal Pulse Rate 80 97 Respiratory Rate 18 18 Blood Pressure 145/54 H 157/54 H Blood Pressure Mean 84 88 Pulse Ox 94 94 94 Oxygen Delivery Method Nasal Cannula Nasal Cannula Nasal Cannula Oxygen Flow Rate (L/min) 1.5 1.5 1.5 05/04/22 10:56 Temperature Temperature Source Pulse Rate Respiratory Rate Blood Pressure Blood Pressure Mean Pulse Ox 94 Oxygen Delivery Method Nasal Cannula Oxygen Flow Rate (L/min) 1.5 Weight Weight: 149 lb 4.047 oz Body Mass Index (BMI) 27.3 Physical Exam Narrative General: Alert, Oriented x3, Cooperative, No apparent distress HEENT: Atraumatic, PERRLA, EOMI, Normocephalic Oral: Moist Mucosa Neck: Supple, No JVD Lungs: Clear to auscultation, Normal air movement, No rhonchi, No wheeze, No rales Cardiovascular: Regular rate, Regular Rhythm, Normal S1, Normal S2, murmurs Abdomen: Soft, Non Tender, Non-Distended, No Hepato-splenomegaly, midline abdominal hernia Extremities: No edema, Capillary Refill Less than 3 Seconds Skin: No rashes, No breakdown Musculoskeletal: No Tenderness to Palpation of Joints or Extremities Neurological: Cranial nerves II-XII grossly intact, Motor Exam 5/5 strength throughout, Sensory exam intact to light touch and pain Psych/Mental Status: Normal Affect, Appropriate Results Lab / Micro Data Result Diagrams: 05/04/22 10:50 05/04/22 10:50 Labs: Laboratory Results - last 24 hr 05/04/22 10:50: WBC 9.6, RBC 3.00 L, Hgb 8.3 L, Hct 26.6 L, MCV 88.7, MCH 27.7, MCHC 31.2 L, RDW Std Deviation 56.5 H, RDW Coeff of Becca 17.4 H, Plt Count 322, MPV 9.9, Immature Gran % (Auto) 3.100 H, Neut % (Auto) 78.2 H, Lymph % (Auto) 6.7 L, [place] % (Auto) 9.0, Eos % (Auto) 2.5, Baso % (Auto) 0.5, Absolute Neuts (auto) 7.5, Absolute Lymphs (auto) 0.64 L, Nucleated RBC % 0 05/04/22 10:50: Sodium 136, Potassium 3.9, Chloride 98, Carbon Dioxide 28.0, An ion Gap 10, BUN 30 H, Creatinine 4.68 H, Estim Creat Clear Calc 8.21, Est GFR (MDRD) Af Amer 12 L, Est GFR (MDRD) Non-Af 10 L, BUN/Creatinine Ratio 6.4 L, Glucose 116 H, Calcium 8.6 05/04/22 10:50: Blood Type A NEGATIVE, Antibody Screen NEGATIVE Assessment & Plan Assessment/Plan (1) Acute on chronic blood loss anemia: PLAN: Plan 1. Acute on chronic GI bleed in the setting of anemia of chronic disease secondary to end-stage renal disease on dialysis/GERD ? She had an EGD back in September 2021 which showed a Dieulafoy's lesion as well as multiple gastric AVMs that were treated ? We will continue with Protonix drip and consult gastroenterology for an EGD tomorrow ? No signs of significant hemorrhage, vital signs are all stable and hemoglobin is stable from yesterday at 8.3 ? We will consult nephrology for dialysis tomorrow ? Per family, her hemoglobin at dialysis was in the 12's in March and has steadily been dropping despite the absence of overt bleeding 2. HTN/HLD/CAD status post CABG/chronic diastolic CHF ? Blood pressures are stable ? Can resume all of her home blood pressure medications ? Can continue with Lipitor 3. Chronic hypoxic respiratory failure from COPD ? Stable ? Continue inhaler as well as home O2 at 2 L DVT: Ambulation Charges/Coding Visit Charges Inpatient E&M: 09208 Init Hosp L2
[2022-05-04 13:40] VITALS: BMI 28.3
[2022-05-04 13:45] VITALS: BP 171/69; PULSE 88; RESP 18; TEMP 37.4; O2SAT 100
[2022-05-04 15:00] VITALS: PULSE 80
[2022-05-04] MEDS: hydrALAZINE 50 MG Tablet 100 MG PO ×2 (15:00→20:30)
[2022-05-04] MEDS: SEVELAMER CARBONATE 800 MG TABLET PO (17:22)
--- NOTE | 2022-05-04 17:40 | EX.PCM.CON.G ---
HPI Consult Data Date of Consult: 05/04/22 HPI Narrative Reason for Consultation: GI bleed HPI Narrative: JULISSA VEGA, is a 76 F who presents for evaluation of GI bleed. She presented to the office yesterday for decreasing hemoglobin. She was accompanied by her daughter Doris. Most recent hgb 9 on 04/28/22, down from 9.8 on 04/19/22, 10.4 on 04/12/22, 11 on 04/05/22, 12 on 03/29/22, 12.3 on 03/22/22. Hgb checked every other week at dialysis. I initially saw her when she was hospitalized in March 2021 for acute symptomatic anemia on chronic anemia. She had intermittent dark stools. Hemoglobin was 6.? She received 2 units of packed red blood cells.? Hemoglobin was 7.1 at discharge.? She has end-stage renal disease on dialysis Sunday.? During that that hospitalization I performed an EGD and colonoscopy.? Esophagus was normal.? Red blood was found on the lesser curvature of the stomach.? Three 5 mm polyps with bleeding were found in the stomach.? Duodenum was normal.? Fifteen 1 to 3 mm polyps were removed from the colon.? 3 small angiodysplastic lesions with bleeding were found in the colon, those were treated with argon beam successfully.? Microscopic diagnosis: Tubular adenomas in the colon, hyperplastic polyps in the stomach, negative H. pylori. 05/04/22 10:50: WBC 9.6, RBC 3.00 L, Hgb 8.3 L, Hct 26.6 L, MCV 88.7, MCH 27.7, MCHC 31.2 L, RDW Std Deviation 56.5 H, RDW Coeff of Becca 17.4 H, Plt Count 322, MPV 9.9, Immature Gran % (Auto) 3.100 H, Neut % (Auto) 78.2 H, Lymph % (Auto) 6.7 L, [place] % (Auto) 9.0, Eos % (Auto) 2.5, Baso % (Auto) 0.5, Absolute Neuts (auto) 7.5, Absolute Lymphs (auto) 0.64 L, Nucleated RBC % 0 05/04/22 10:50: Sodium 136, Potassium 3.9, Chloride 98, Carbon Dioxide 28.0, Anion Gap 10, BUN 30 H, Creatinine 4.68 H, Estim Creat Clear Calc 8.21, Est GFR (MDRD) Af Amer 12 L, Est GFR (MDRD) Non-Af 10 L, BUN/Creatinine Ratio 6.4 L, Glucose 116 H, Calcium 8.6 05/04/22 10:50: Blood Type A NEGATIVE, Antibody Screen NEGATIVE [facility] Medical History (HFpEF) heart failure with preserved ejection fraction Accidental fall Anxiety Arthritis Atherosclerotic heart disease of [place] coronary artery without angina pectoris CAD (coronary artery disease) Chronic diastolic heart failure COPD (chronic obstructive pulmonary disease) Diabetes mellitus type 2 in obese Dyslipidemia Easy bruising ESRD (end stage renal disease) on dialysis Essential hypertension History of blood transfusion History of renal dialysis Leg cramps Morbid obesity with BMI of 40.0-44.9, adult Non-rheumatic mitral regurgitation Non-rheumatic tricuspid valve insufficiency On home oxygen therapy Pulmonary hypertension Restless leg syndrome Restless legs Shortness of breath on exertion Toe fracture, left Wears dentures Wears glasses Home Medications amitriptyline 100 mg tablet 100 mg PO QHS mental health 04/09/13 [History Last Taken 05/03/22] aspirin 81 mg tablet,delayed release 81 mg PO DAILY HEART HEALTH 10/25/17 [History Last Taken 05/03/22] atorvastatin 80 mg tablet 80 mg PO DAILY CHOLESTEROL 10/25/17 [History Last Taken 05/03/22] amlodipine 10 mg tablet 10 mg PO DAILY BP 06/01/18 [History Last Taken 05/04/22] doxazosin 8 mg tablet 8 mg PO QHS blood pressure 08/20/18 [History Last Taken 05/03/22] omeprazole 40 mg capsule,delayed release 40 mg PO DAILY gerd 08/20/18 [History Last Taken 05/04/22] hydralazine 100 mg tablet 100 mg PO TID diuretic 01/01/19 [History Last Taken 05/04/22] bumetanide 2 mg tablet 2 mg PO DAILY diuretic 03/14/19 [History Last Taken 05/04/22] carvedilol 6.25 mg tablet 6.25 mg PO BID blood pressure 03/14/19 [History Last Taken 05/04/22] nitroglycerin 0.4 mg sublingual tablet 0.4 mg sublingual Q5M PRN CHEST PAIN 03/14/19 [History Last Taken Unknown] albuterol sulfate 1.25 mg/3 mL solution for nebulization 1.25 mg (3 mL) inhalation 4X/DAY Wheezing #360 mL 08/17/20 [Rx Last Taken 05/04/22] albuterol sulfate 90 mcg/actuation aerosol inhaler (ProAir HFA) 2 puff inhalation Q6H PRN sob 09/30/20 [History Last Taken Unknown] ropinirole 0.5 mg tablet 0.5 mg PO QHS 07/07/21 [History Last Taken 05/03/22] isosorbide mononitrate 60 mg tablet,extended release 24 hr 60 mg PO DAILY #90 tabs 12/26/21 [Rx Last Taken 05/04/22] budesonide-formoterol HFA 160 mcg-4.5 mcg/actuation aerosol inhaler (Symbicort) 2 inh inhalation BID breathing #3 ea 03/10/22 [Rx Last Taken 05/04/22] acetaminophen 500 mg tablet (Acetaminophen Extra Strength) 1,000 mg PO DAILY PRN Pain 05/04/22 [History Last Taken Unknown] ascorbic acid (vitamin C) 500 mg tablet 500 mg PO DAILY SUPPLEMENT 05/04/22 [History Last Taken 05/04/22] prednisone 5 mg tablet 5 mg PO DAILY INFLAMMATION 05/04/22 [History Last Taken 05/04/22] sevelamer carbonate 800 mg tablet 800 mg PO TIDCM PHOSPHATE 05/04/22 [History Last Taken 05/03/22] Allergy/AdvReac Type Severity Reaction Status Date / Time Penicillins Allergy Hives Verified 05/04/22 10:34 adhesive tape AdvReac Other Verified 05/04/22 10:34 Family History Mother Heart disease Surgical History H/O four vessel coronary artery bypass graft (~04/16/13) Hx of colonoscopy Hx of esophagogastroduodenoscopy Social History household members: family Smoking Status: Former smoker quit date: 03/05/10 alcohol intake: current alcohol intake frequency: other substance use type: does not use ROS Constitutional Constitutional: Denies chills, fatigue, fever(s) or malaise Eyes Eyes: Denies blurry vision ENT HEENT: Denies headache(s) or nasal discharge Cardiovascular Cardiovascular: Denies chest pain, dyspnea on exertion or syncope Respiratory/Chest Respiratory/Chest: Denies cough, shortness of breath at rest or shortness of breath with exertion Gastrointestinal Gastrointestinal: Reports melena; Denies constipation, diarrhea, hematemesis, hematochezia, nausea or vomiting Genitourinary Genitourinary: Denies dysuria Neurologic Neurologic: Denies focal weakness, numbness or tremor(s) Psychiatric Psychiatric: Denies anxiety or depression Lab / Micro Data Result Diagrams: 05/04/22 10:50 05/04/22 10:50 Labs: Laboratory Results - last 24 hr 05/04/22 10:50: WBC 9.6, RBC 3.00 L, Hgb 8.3 L, Hct 26.6 L, MCV 88.7, MCH 27.7, MCHC 31.2 L, RDW Std Deviation 56.5 H, RDW Coeff of Becca 17.4 H, Plt Count 322, MPV 9.9, Immature Gran % (Auto) 3.100 H, Neut % (Auto) 78.2 H, Lymph % (Auto) 6.7 L, [place] % (Auto) 9.0, Eos % (Auto) 2.5, Baso % (Auto) 0.5, Absolute Neuts (auto) 7.5, Absolute Lymphs (auto) 0.64 L, Nucleated RBC % 0 05/04/22 10:50: Sodium 136, Potassium 3.9, Chloride 98, Carbon Dioxide 28.0, Anion Gap 10, BUN 30 H, Creatinine 4.68 H, Estim Creat Clear Calc 8.21, Est GFR (MDRD) Af Amer 12 L, Est GFR (MDRD) Non-Af 10 L, BUN/Creatinine Ratio 6.4 L, Glucose 116 H, Calcium 8.6 05/04/22 10:50: Blood Type A NEGATIVE, Antibody Screen NEGATIVE Assessment & Plan Assessment/Plan (1) Anemia: (2) ESRD (end stage renal disease) on dialysis: PLAN: Plan 1) acute symptomatic anemia on chronic normocytic anemia Hemoglobin currently 8.3 Iron, folate and B12 within normal limits. EGD in the am. 2) ESRD Patient was last dialyzed on 03/09 in accordance with [facility] schedule. Nephrology following for appropriate management of hemodialysis. Patient was supposed to be dialyzed today, 03/11, however EGD procedure has been delayed. Dialysis will either need to take place today or tomorrow, patient cannot discharge before being dialyzed due to dialysis schedule being closed on Sunday. Charges/Coding Visit Charges Inpatient E&M: 67843 Init Hosp L3
[2022-05-04 20:30] VITALS: BP 168/62; PULSE 78; RESP 18; TEMP 37.4; O2SAT 100
[2022-05-04] MEDS: Doxazosin 4 MG Tablet 8 MG PO (20:30)
[2022-05-04] MEDS: Amitriptyline 100 MG Tablet PO (20:31)
[2022-05-04] MEDS: Carvedilol 6.25 MG Tablet PO (20:31)
[2022-05-04] MEDS: Atorvastatin Calcium 80 MG Tablet PO (20:32)
[2022-05-05] VITALS (13 sets, daily range): BP systolic 125–172; BP diastolic 40–74; PULSE 72–88; RESP 12–18; TEMP 36.7–37.6; O2SAT 92–98
[2022-05-05] MEDS: hydrALAZINE 50 MG Tablet 100 MG PO ×2 (05:27→13:40)
--- NOTE | 2022-05-05 06:00 | EKG12_ITS ---
Test Reason : PRE OP Blood Pressure : / mmHG Vent. Rate : 074 BPM Atrial Rate : 074 BPM P-R Int : 198 ms QRS Dur : 106 ms QT Int : 442 ms P-R-T Axes : 075 050 072 degrees QTc Int : 490 ms Normal sinus rhythm Prolonged QT Abnormal ECG When compared with ECG of 09-MAR-2021 20:50, Premature atrial complexes are no longer Present Confirmed by CHAITANYA DOVE, CARLOS ENRIQUE ([id number]), assignment editor DENVER KRAUSE ([id number]) on 05/09/2022 8:04:24 AM Referred By: ABEL Confirmed By:CARLOS ENRIQUE TAVARES MD
[2022-05-05 06:53] LABS: Absolute Lymphocyte Count 0.47 X10^3/uL (0.83-4.51); Basophil# 0.04 X10^3/uL; Basophil% 0.5 % (0-1); Eosinophil# 0.24 X10^3/uL; Eosinophils% 2.8 % (0-5); Hematocrit 25.3 % (37-47); Lymphocyte # 0.47 X10^3/ul (0.83-4.51); Lymphocyte % 5.4 % (19-41); Mean Corp Hgb Conc 31.6 g/dL (32-36); Mean Corpuscular Hgb 27.8 pg (27.0-32.0); Mean Corpuscular Volume 87.8 fL (81-99); Mean Platelet Vol. 9.9 fl (6.2-12.0); Monocyte# 0.66 X10^3/uL; Monocyte% 7.6 % (0-10); NRBC Flagged by Analyzer 0 % (0-5); Neutrophil # 7.03 X10^3/uL (2.7-7.7); Neutrophil % 81.4 % (47-70); POSITIVE DIFFERENTIAL YES; Platelet Count 322 K/mm3 (150-450); RBC Distribution Width CV 17.8 % (11.6-14.6); RBC Distribution Width SD 57.2 fl (35.1-43.9); Red Blood Count 2.88 M/mm3 (4.2-5.4); White Blood Count 8.6 K/mm3 (4.4-11.0)
[2022-05-05 07:04] LABS: Differential Indicated SCAN CRITERIA MET
[2022-05-05 07:14] LABS: International Normalized Ratio 1.2; Prothrombin Time (Protime)PT. 14.8 SECONDS (11.7-14.9)
[2022-05-05 07:15] LABS: Partial Thromboplast Time 56.2 Seconds (24.1-36.2)
[2022-05-05 07:22] LABS: Differential Comment SCANNED; Hypochromasia 1+
[2022-05-05 07:23] LABS: Anion Gap 8 (5-15); BUN 36 mg/dL (7-18); BUN/Creat Ratio 6.5 RATIO (10-20); Calcium,Total 8.4 mg/dL (8.5-10.1); Chloride 96 mmol/L (98-107); Creatinine, Serum 5.51 mg/dL (0.55-1.02); EST Glomerular Filtration Rate 8 mL/min (>60); Est Glom Filt Rate - Afr Amer 10 mL/min (>60); Estimated Creatinine Clearance 6.98 ml/min; Glucose 98 mg/dL (74-106); Potassium 4.1 mmol/L (3.5-5.1); Sodium Level 133 mmol/L (136-145)
[2022-05-05] MEDS: Isosorbide Mononitrate 60 MG Tablet PO (08:10)
[2022-05-05] MEDS: SEVELAMER CARBONATE 800 MG TABLET PO ×2 (08:10→13:41)
[2022-05-05] MEDS: Bumetanide 2 MG Tablet PO (08:10)
[2022-05-05] MEDS: Carvedilol 6.25 MG Tablet PO (08:10)
[2022-05-05] MEDS: amLODIPine 10 MG Tablet PO (08:10)
[2022-05-05] MEDS: Ascorbic Acid 500 MG Tablet PO (08:10)
[2022-05-05] MEDS: predniSONE 5 MG Tablet PO (08:11)
[2022-05-05 10:47] LABS: Hemoglobin A1c < 3.8 % (3.8-5.6)
--- NOTE | 2022-05-05 10:49 | PN.HOSP_ITS ---
Subjective Subjective Doing well, no issues overnight. Feels like she did yesterday, denies any abdominal pain. Objective Data Objective Data Vital Signs: Vital Signs Temp Pulse Resp BP Pulse Ox O2 Del Method O2 Flow Rate 98.2 F 77 16 152/66 H 97 Nasal Cannula 1.5 05/05/22 07:55 05/05/22 07:55 05/05/22 07:55 05/05/22 07:55 05/05/22 07:55 05/05/22 07:55 05/05/22 07:55 Oxygen Flow Rate (L/min) 1.5 Oxygen Delivery Method Nasal Cannula Weight: 155 lb Body Mass Index (BMI) 28.3 Intake & Output: Intake and Output for Last 24 Hours 05/04/22 05/05/22 05/06/22 03:59 03:59 03:59 Intake Total 404.83 / 404.83 89.83 / 89.83 Balance 404.83 / 404.83 89.83 / 89.83 Lab / Micro Data Result Diagrams: 05/05/22 06:15 05/05/22 06:15 Labs: Laboratory Results - last 24 hr 05/04/22 10:50: WBC 9.6, RBC 3.00 L, Hgb 8.3 L, Hct 26.6 L, MCV 88.7, MCH 27.7, MCHC 31.2 L, RDW Std Deviation 56.5 H, RDW Coeff of Becca 17.4 H, Plt Count 322, MPV 9.9, Immature Gran % (Auto) 3.100 H, Neut % (Auto) 78.2 H, Lymph % (Auto) 6.7 L, [place] % (Auto) 9.0, Eos % (Auto) 2.5, Baso % (Auto) 0.5, Absolute Neuts (auto) 7.5, Absolute Lymphs (auto) 0.64 L, Nucleated RBC % 0 05/04/22 10:50: Sodium 136, Potassium 3.9, Chloride 98, Carbon Dioxide 28.0, Anion Gap 10, BUN 30 H, Creatinine 4.68 H, Estim Creat Clear Calc 8.21, Est GFR (MDRD) Af Amer 12 L, Est GFR (MDRD) Non-Af 10 L, BUN/Creatinine Ratio 6.4 L, Glucose 116 H, Calcium 8.6 05/04/22 10:50: Blood Type A NEGATIVE, Antibody Screen NEGATIVE 05/05/22 06:15: WBC 8.6, RBC 2.88 L, Hgb 8.0 L, Hct 25.3 L, MCV 87.8, MCH 27.8, MCHC 31.6 L, RDW Std Deviation 57.2 H, RDW Coeff of Becca 17.8 H, Plt Count 322, MPV 9.9, Immature Gran % (Auto) 2.300 H, Neut % (Auto) 81.4 H, Lymph % (Auto) 5.4 L, [place] % (Auto) 7.6, Eos % (Auto) 2.8, Baso % (Auto) 0.5, Absolute Neuts (auto) 7.0, Absolute Lymphs (auto) 0.47 L, Nucleated RBC % 0, Differential Comment SCANNED, Hypochromasia 1+ 05/05/22 06:15: Sodium 133 L, Potassium 4.1, Chloride 96 L, Carbon Dioxide 29.0, Anion Gap 8, BUN 36 H, Creatinine 5.51 H, Estim Creat Clear Calc 6.98, Est GFR (MDRD) Af Amer 10 L, Est GFR (MDRD) Non-Af 8 L, BUN/Creatinine Ratio 6.5 L, Glucose 98, Calcium 8.4 L 05/05/22 06:15: PT 14.8, INR 1.2, APTT 56.2 H 05/05/22 06:15: Hemoglobin A1c < 3.8 L Physical Exam Narrative General: Alert, Oriented x3, Cooperative, No apparent distress HEENT: Atraumatic, PERRLA, EOMI, Normocephalic Oral: Moist Mucosa Neck: Supple, No JVD Lungs: Clear to auscultation, Normal air movement, No rhonchi, No wheeze, No rales Cardiovascular: Regular rate, Regular Rhythm, Normal S1, Normal S2, murmurs Abdomen: Soft, Non Tender, Non-Distended, No Hepato-splenomegaly, midline abdominal hernia Extremities: No edema, Capillary Refill Less than 3 Seconds Skin: No rashes, No breakdown Musculoskeletal: No Tenderness to Palpation of Joints or Extremities Neurological: Cranial nerves II-XII grossly intact, Motor Exam 5/5 strength throughout, Sensory exam intact to light touch and pain Psych/Mental Status: Normal Affect, Appropriate Assessment & Plan Assessment/Plan (1) Acute on chronic blood loss anemia: PLAN: Plan 1. Acute on chronic GI bleed in the setting of anemia of chronic disease teresita daughertyy to end-stage renal disease on dialysis/GERD ? She had an EGD back in September 2021 which showed a Dieulafoy's lesion as well as multiple gastric AVMs that were treated ? We will continue with Protonix drip and consult gastroenterology for an EGD today ? No signs of significant hemorrhage, vital signs are all stable and hemoglobin is 8 today ? We will consult nephrology for dialysis, and may transfuse during dialysis ? Per family, her hemoglobin at dialysis was in the 12's in March and has ana adily been dropping despite the absence of overt bleeding 2. HTN/HLD/CAD status post CABG/chronic diastolic CHF ? Blood pressures are stable ? Can resume all of her home blood pressure medications ? Can continue with Lipitor 3. Chronic hypoxic respiratory failure from COPD ? Stable ? Continue inhaler as well as home O2 at 2 L DVT: SCDs Charges/Coding Visit Charges Inpatient E&M: 79695 Subs Hosp L2
--- NOTE | 2022-05-05 12:51 | OP.EGD_ITS ---
Patient Name: Shante Truj[place] Procedure Date: 05/05/2022 12:29 PM Date of : 1945 Age: 76 Procedure: Upper GI endoscopy Indications: Iron deficiency anemia Providers: Kameron Chan DO Medicines: Monitored Anesthesia Care Patient Profile: This is a 76 year old female. Refer to note in patient chart for documentation of history and physical. Patient has symptoms of chronic nausea. Complications: No immediate complications. Procedure: Pre-Anesthesia Assessment: - Prior to the procedure, a History and Physical was performed, and patient medications and allergies were reviewed. The patient is competent. The risks and benefits of the procedure and the sedation options and risks were discussed with the patient. All questions were answered and informed consent was obtained. Patient identification and proposed procedure were verified by the physician in the pre-procedure area. Mental Status Examination: alert and oriented. Airway Examination: normal oropharyngeal airway and neck mobility. Respiratory Examination: clear to auscultation. CV Examination: normal. Prophylactic Antibiotics: The patient does not require prophylactic antibiotics. Prior Anticoagulants: The patient has taken no previous anticoagulant or antiplatelet agents. After reviewing the risks and benefits, the patient was deemed in satisfactory condition to undergo the procedure. The anesthesia plan was to use monitored anesthesia care (MAC). Immediately prior to administration of medications, the patient was re-assessed for adequacy to receive sedatives. The heart rate, respiratory rate, oxygen saturations, blood pressure, adequacy of pulmonary ventilation, and response to care were monitored throughout the procedure. The physical status of the patient was re-assessed after the procedure. After obtaining informed consent, the endoscope was passed under direct vision. Throughout the procedure, the patient's blood pressure, pulse, and oxygen saturations were monitored continuously. The Endoscope was introduced through the mouth, and advanced to the second part of duodenum. The upper GI endoscopy was accomplished without difficulty. The patient tolerated the procedure well. Scope In: 12:42:14 PM Scope Out: 12:44:56 PM Total Procedure Duration Time 0 hours 2 minutes 42 seconds Findings: Grade I varices were found in the upper third of the esophagus. They were 5 mm in largest diameter. One oozing cratered gastric ulcer with a visible vessel was found on the lesser curvature of the stomach. The lesion was 6 mm in largest dimension. To stop active bleeding, one hemostatic clip was successfully placed. There was no bleeding at the end of the procedure. Coagulation for hemostasis using heater probe was successful. Estimated blood loss was minimal. A 9 mm non-bleeding diverticulum was found in the second portion of the duodenum. Impression: - Grade I esophageal varices. - Oozing gastric ulcer with a visible vessel. Clip was placed. Treated with a heater probe. - Non-bleeding duodenal diverticulum. - No specimens collected. Recommendation: - [facility]. - Resume previous diet. - Continue present medications. Procedure Code(s): --- Professional --- 44775, Esophagogastroduodenoscopy, flexible, transoral; with control of bleeding, any method CPT copyright 2017 [employer]. All rights reserved. The codes documented in this report are preliminary and upon heart specialist review may be revised to meet current compliance requirements. Kameron Chan DO 05/05/2022 12:50:46 PM This report has been signed electronically. Number of Addenda: 0 Note Initiated On: 05/05/2022 12:29 PM
--- NOTE | 2022-05-05 12:51 | OP.CCLET_ITS ---
05/05/2022 Levi Laird Re : Upper GI endoscopy procedure for Shante Fuenteshaider Laird This procedure was performed on Thursday, May 05, 2022. My impressions and recommendations are as follows: Impressions : - Grade I esophageal varices. - Oozing gastric ulcer with a visible vessel. Clip was placed. Treated with a heater probe. - Non-bleeding duodenal diverticulum. - No specimens collected. Recommendations : - Return patient to [facility] for [facility] care. - Resume previous diet. - Continue present medications. My findings are described in the full procedure note, which is enclosed. If I can be of further assistance, please feel free to contact me at . Sincerely, Kameron Chan, 05/05/2022 12:50:46 PM This report has been signed electronically.
--- NOTE | 2022-05-05 13:56 | NURSING ---
dialysis her for pt
--- NOTE | 2022-05-05 14:30 | PCM.CONS.R ---
Assessment & Plan Assessment/Plan (1) ESRD on dialysis: PLAN: on dialysis Sunday, Sunday, Sunday schedule. Will be scheduled for dialysis today after long after endoscopy anemia. Suspected GI bleed. Gastroenterology is following. She gets long-acting erythropoietin with dialysis HPI Consult Data Date of Consult: 05/05/22 HPI Narrative Reason for Consultation: ESRD HPI Narrative: JULISSA VEGA, is a 76 F who presents to the hospital with concerns of GI bleed. Nephrology consultation due to yesterday. Currently on hemodialysis Sunday, Sunday, Sunday schedule. Has a right IJ tunneled dialysis catheter for access.. She goes to [facility]. Dr Mark is primary cook ship. she is scheduled for endoscopy today. [facility] Medical History (HFpEF) heart failure with preserved ejection fraction Accidental fall Anxiety Arthritis Atherosclerotic heart disease of [place] coronary artery without angina pectoris CAD (coronary artery disease) Chronic diastolic heart failure COPD (chronic obstructive pulmonary disease) Diabetes mellitus type 2 in obese Dyslipidemia Easy bruising ESRD (end stage renal disease) on dialysis Essential hypertension History of blood transfusion History of renal dialysis Leg cramps Morbid obesity with BMI of 40.0-44.9, adult Non-rheumatic mitral regurgitation Non-rheumatic tricuspid valve insufficiency On home oxygen therapy Pulmonary hypertension Restless leg syndrome Restless legs Shortness of breath on exertion Toe fracture, left Wears dentures Wears glasses Home Medications amitriptyline 100 mg tablet 100 mg PO QHS mental health 04/09/13 [History Last Taken 05/03/22] aspirin 81 mg tablet,delayed release 81 mg PO DAILY HEART HEALTH 10/25/17 [History Last Taken 05/03/22] atorvastatin 80 mg tablet 80 mg PO DAILY CHOLESTEROL 10/25/17 [History Last Taken 05/03/22] amlodipine 10 mg tablet 10 mg PO DAILY BP 06/01/18 [History Last Taken 05/04/22] doxazosin 8 mg tablet 8 mg PO QHS blood pressure 08/20/18 [History Last Taken 05/03/22] omeprazole 40 mg capsule,delayed release 40 mg PO DAILY gerd 08/20/18 [History Last Taken 05/04/22] hydralazine 100 mg tablet 100 mg PO TID diuretic 01/01/19 [History Last Taken 05/04/22] bumetanide 2 mg tablet 2 mg PO DAILY diuretic 03/14/19 [History Last Taken 05/04/22] carvedilol 6.25 mg tablet 6.25 mg PO BID blood pressure 03/14/19 [History Last Taken 05/04/22] nitroglycerin 0.4 mg sublingual tablet 0.4 mg sublingual Q5M PRN CHEST PAIN 03/14/19 [History Last Taken Unknown] albuterol sulfate 1.25 mg/3 mL solution for nebulization 1.25 mg (3 mL) inhalation 4X/DAY Wheezing #360 mL 08/17/20 [Rx Last Taken 05/04/22] albuterol sulfate 90 mcg/actuation aerosol inhaler (ProAir HFA) 2 puff inhalation Q6H PRN sob 09/30/20 [History Last Taken Unknown] ropinirole 0.5 mg tablet 0.5 mg PO QHS 07/07/21 [History Last Taken 05/03/22] isosorbide mononitrate 60 mg tablet,extended release 24 hr 60 mg PO DAILY #90 tabs 12/26/21 [Rx Last Taken 05/04/22] budesonide-formoterol HFA 160 mcg-4.5 mcg/actuation aerosol inhaler (Symbicort) 2 inh inhalation BID breathing #3 ea 03/10/22 [Rx Last Taken 05/04/22] acetaminophen 500 mg tablet (Acetaminophen Extra Strength) 1,000 mg PO DAILY PRN Pain 05/04/22 [History Last Taken Unknown] ascorbic acid (vitamin C) 500 mg tablet 500 mg PO DAILY SUPPLEMENT 05/04/22 [History Last Taken 05/04/22] prednisone 5 mg tablet 5 mg PO DAILY INFLAMMATION 05/04/22 [History Last Taken 05/04/22] sevelamer carbonate 800 mg tablet 800 mg PO TIDCM PHOSPHATE 05/04/22 [History Last Taken 05/03/22] Allergy/AdvReac Type Severity Reaction Status Date / Time Penicillins Allergy Hives Verified 05/04/22 10:34 adhesive tape AdvReac Other Verified 05/04/22 10:34 Family History Mother Heart disease Surgical History H/O four vessel coronary artery bypass graft (~04/16/13) Hx of colonoscopy Hx of esophagogastroduodenoscopy Social History household members: family Smoking Status: Former smoker quit date: 03/05/10 alcohol intake: current alcohol intake frequency: other substance use type: does not use ROS ROS Narrative negative except above Physical Exam Narrative Alert awake oriented x 3 no obvious distress no pallor no icterus no JVD s1s2 no murmurs lungs clear abdomen soft no organomegaly no edema no cyanosis Lab / Micro Data Result Diagrams: 05/05/22 06:15 05/05/22 06:15 Labs: Laboratory Results - last 24 hr 05/04/22 10:50: Crossmatch See Detail 05/05/22 06:15: WBC 8.6, RBC 2.88 L, Hgb 8.0 L, Hct 25.3 L, MCV 87.8, MCH 27.8, MCHC 31.6 L, RDW Std Deviation 57.2 H, RDW Coeff of Becca 17.8 H, Plt Count 322, MPV 9.9, Immature Gran % (Auto) 2.300 H, Neut % (Auto) 81.4 H, Lymph % (Auto) 5.4 L, [place] % (Auto) 7.6, Eos % (Auto) 2.8, Baso % (Auto) 0.5, Absolute Neuts (auto) 7.0, Absolute Lymphs (auto) 0.47 L, Nucleated RBC % 0, Differential Comment SCANNED, Hypochromasia 1+ 05/05/22 06:15: Sodium 133 L, Potassium 4.1, Chloride 96 L, Carbon Dioxide 29.0, Anion Gap 8, BUN 36 H, Creatinine 5.51 H, Estim Creat Clear Calc 6.98, Est GFR (MDRD) Af Amer 10 L, Est GFR (MDRD) Non-Af 8 L, BUN/Creatinine Ratio 6.5 L, Glucose 98, Calcium 8.4 L 05/05/22 06:15: PT 14.8, INR 1.2, APTT 56.2 H 05/05/22 06:15: Hemoglobin A1c < 3.8 L
--- NOTE | 2022-05-05 15:15 | NURSING ---
pt getting unit of blood during dialysis
--- NOTE | 2022-05-05 15:55 | DCINST_ITS ---
Discharge Instructions Diet Discharge Diet: Renal Diet Activity Discharge Activity: Return to Normal Activity Dressing / Incision Call your doctor if you observe: Fever of 101 or Higher, Shortness of breath, Dizziness, Fainting spells, Swelling in the ankles, Chest pain and Increased palpitations (irregular heartbeat) Follow Up Care Test Results: Test results from this visit will be discussed in further detail at your follow- up appointment, if applicable. Discharge Plan Admission Admit Date/Time: 05/04/22 12:08 Attending Provider: Quinten Chung Primary Care Provider: Levi Laird Consulting Providers: Kameron Chan ; Evert Waite Instructions Additional Instructions / Restrictions: F/u with your PCP in 3-5 days to obtain a CBC to monitor your anemia Discharge Orders/Prescriptions Prescriptions: New sucralfate [Carafate] 1 gram tablet 1 g PO BID Qty: 60 0RF Continued albuterol sulfate [ProAir HFA] 90 mcg/actuation HFA aerosol inhaler 2 puff inhalation Q6H PRN (Reason: sob) ropinirole 0.5 mg tablet 0.5 mg PO QHS Label Comments: TAKE 1 TABLET BY MOUTH ONCE DAILY budesonide-formoterol [Symbicort] 160-4.5 mcg/actuation HFA aerosol inhaler 2 inh INHALATION BID Qty: 3 3RF Rx Instructions: administer with spacer, rinse mouth after each use amitriptyline 100 MG tablet 100 mg PO QHS Label Comments: MENTAL HEALTH atorvastatin 80 MG tablet 80 mg PO DAILY Label Comments: aspirin 81 MG tablet 81 mg PO DAILY Hold Instructions: Resume on 03/20/21. amlodipine 10 MG tablet 10 mg PO DAILY omeprazole 40 MG capsule,delayed release(DR/EC) 40 mg PO DAILY Hold Instructions: Resume on 05/08/21. doxazosin 8 MG tablet 8 mg PO QHS hydralazine 100 mg tablet 100 mg PO TID nitroglycerin 0.4 MG tablet, sublingual 0.4 mg SL Q5M PRN (Reason: CHEST PAIN) carvedilol 6.25 MG tablet 6.25 mg PO BID bumetanide 2 MG tablet 2 mg PO DAILY prednisone 5 mg tablet 5 mg PO DAILY acetaminophen [Acetaminophen Extra Strength] 500 mg Tablet 1,000 mg PO DAILY PRN (Reason: Pain) sevelamer carbonate 800 mg tablet 800 mg PO TIDCM ascorbic acid (vitamin C) 500 MG tablet 500 mg PO DAILY albuterol sulfate 1.25 mg/3 mL solution for nebulization 1.25 mg INHALATION 4X/DAY Qty: 360 6RF isosorbide mononitrate 60 mg tablet extended release 24 hr 60 mg PO DAILY Qty: 90 3RF Referrals / Follow Up: Levi Laird MD [Primary Care Provider] - Within 1 Week Kameron Chan DO [Med Staff - Active Staff] - Within 1 Month Disposition Disposition (needs filled in before D/C Order can be placed): Home, Self Care
--- NOTE | 2022-05-05 16:39 | PCM.DC.SUM ---
Providers Date of Admission: 05/04/22 Primary Care Physician: Dr. Levi Laird MD Consultations 05/04/22 13:18 Consult: Gastroenterology Routine Consulting Provider: Kameron Chan Reason for Consult: EGD tomorrow EMERGENT Consult: No Notified: Yes Date Notified: 05/04/22 Time Notified: 12:20 Method of Notification: Verbal 05/04/22 13:47 Consult: Nephrology Routine Consulting Provider: Evert Waite Reason for Consult: dialysis MWF EMERGENT Consult: No Notified: Yes Date Notified: 05/04/22 Time Notified: 15:35 Method of Notification: office Reason For Visit: ABNORMAL LABS Diagnosis Discharge Diagnosis (1) ESRD on dialysis: Status: Acute Code(s): N18.6 - End stage renal disease; Z99.2 - Dependence on renal dialysis Medications at Discharge Home Medications amitriptyline 100 mg tablet 100 mg PO QHS mental health 04/09/13 aspirin 81 mg tablet,delayed release 81 mg PO DAILY HEART HEALTH 10/25/17 atorvastatin 80 mg tablet 80 mg PO DAILY CHOLESTEROL 10/25/17 amlodipine 10 mg tablet 10 mg PO DAILY BP 06/01/18 doxazosin 8 mg tablet 8 mg PO QHS blood pressure 08/20/18 omeprazole 40 mg capsule,delayed release 40 mg PO DAILY gerd 08/20/18 hydralazine 100 mg tablet 100 mg PO TID diuretic 01/01/19 bumetanide 2 mg tablet 2 mg PO DAILY diuretic 03/14/19 carvedilol 6.25 mg tablet 6.25 mg PO BID blood pressure 03/14/19 nitroglycerin 0.4 mg sublingual tablet 0.4 mg sublingual Q5M PRN CHEST PAIN 03/14/19 albuterol sulfate 1.25 mg/3 mL solution for nebulization 1.25 mg (3 mL) inhalation 4X/DAY Wheezing #360 mL 08/17/20 albuterol sulfate 90 mcg/actuation aerosol inhaler (ProAir HFA) 2 puff inhalation Q6H PRN sob 09/30/20 ropinirole 0.5 mg tablet 0.5 mg PO QHS 07/07/21 isosorbide mononitrate 60 mg tablet,extended release 24 hr 60 mg PO DAILY #90 tabs 12/26/21 budesonide-formoterol HFA 160 mcg-4.5 mcg/actuation aerosol inhaler (Symbicort) 2 inh inhalation BID breathing #3 ea 03/10/22 acetaminophen 500 mg tablet (Acetaminophen Extra Strength) 1,000 mg PO DAILY PRN Pain 05/04/22 ascorbic acid (vitamin C) 500 mg tablet 500 mg PO DAILY SUPPLEMENT 05/04/22 prednisone 5 mg tablet 5 mg PO DAILY INFLAMMATION 05/04/22 sevelamer carbonate 800 mg tablet 800 mg PO TIDCM PHOSPHATE 05/04/22 sucralfate 1 gram tablet (Carafate) 1 g PO BID #60 tabs 05/05/22 Hospital Course Procedures Dialysis and EGD Summary of Care Provided Minutes Spent on Discharge: 35 Hospital Course: Per HPI: JULISSA VEGA, is a 76 F who presents to the hospital by the nurse practitioner for gastroenterology because of concern for her hemoglobin.? Her hemoglobin has been as low as 6 and in 2021 was between 7 and 9.6.? Today on repeat at 8.3 with no obvious signs of bleeding.? Though she does endorse intermittent black stools but no hematemesis.? She did have multiple AVMs as well as a Dieulafoy lesion found on her previous EGD.? It was also noted at that time that she had some esophageal varices as well. According to the daughter, she has been getting weekly H&H's at dialysis and it has steadily been dropping from 12 in March 2022 down to now 8.3.? She denies any abdominal pain. Hospital Course: 1. Acute on chronic GI bleed in the setting of anemia of chronic disease secondary to end-stage renal disease on dialysis/GERD?76-year-old female whose had a previous history of varices in her esophagus is well as AVMs in her stomach with repeat bleeding. Her hemoglobin been dropping since the beginning of March though no significant signs of a bleed, she states that she has not had hematemesis or dark/bloody stools. Her hemoglobin today dropped again to 8 and gastroenterology was able to take her and perform an EGD which demonstrated an ulcer with a visible vessel. This was treated and during dialysis she was also transfused a unit of blood. She asked to be able to go home today I discussed with her the risk and benefits of discharge with her and her daughter and they both expressed understanding and would still like to go home today. Will add Carafate to her medication regimen to try to help prevent further bleeding episodes. I do recommend that she follow-up with her PCP in 3 to 5 days to obtain a repeat CBC to monitor hemoglobin and I recommend that she follow-up with gastroenterology as an outpatient as well. 2. Hypertension, hyperlipidemia, coronary artery disease status post CABG, chronic diastolic CHF, chronic hypoxic respiratory failure from COPD are all chronic medical conditions which complicate her care. Her home medications were continued where appropriate Weight / BMI Weight Weight: 155 lb Body Mass Index (BMI) 28.3 ABG / Lab / Microbiology Data Result Diagrams: 05/05/22 06:15 05/05/22 06:15 Laboratory: Laboratory Results - last 24 hr 05/04/22 10:50: Blood Type A NEGATIVE, Antibody Screen NEGATIVE 05/04/22 10:50: Crossmatch See Detail 05/05/22 06:15: WBC 8.6, RBC 2.88 L, Hgb 8.0 L, Hct 25.3 L, MCV 87.8, MCH 27.8, MCHC 31.6 L, RDW Std Deviation 57.2 H, RDW Coeff of Becca 17.8 H, Plt Count 322, MPV 9.9, Immature Gran % (Auto) 2.300 H, Neut % (Auto) 81.4 H, Lymph % (Auto) 5.4 L, [place] % (Auto) 7.6, Eos % (Auto) 2.8, Baso % (Auto) 0.5, Absolute Neuts (auto) 7.0, Absolute Lymphs (auto) 0.47 L, Nucleated RBC % 0, Differential Comment SCANNED, Hypochromasia 1+ 05/05/22 06:15: Sodium 133 L, Potassium 4.1, Chloride 96 L, Carbon Dioxide 29.0, Anion Gap 8, BUN 36 H, Creatinine 5.51 H, Estim Creat Clear Calc 6.98, Est GFR (MDRD) Af Amer 10 L, Est GFR (MDRD) Non-Af 8 L, BUN/Creatinine Ratio 6.5 L, Glucose 98, Calcium 8.4 L 05/05/22 06:15: PT 14.8, INR 1.2, APTT 56.2 H 05/05/22 06:15: Hemoglobin A1c < 3.8 L D/C Instructions Discharge Diet: Renal Diet Call your doctor if you observe: Fever of 101 or Higher, Shortness of breath, Dizziness, Fainting spells, Swelling in the ankles, Chest pain and Increased palpitations (irregular heartbeat) Meaningful Use Info Meaningful Use Diagnoses (Choose all that apply): None applicable Discharge Plan Admission Admit Date/Time: 05/04/22 12:08 Attending Provider: Quinten Chung Primary Care Provider: Levi Laird Consulting Providers: Kameron Chan ; Evert Waite Instructions Additional Instructions / Restrictions: F/u with your PCP in 3-5 days to obtain a CBC to monitor your anemia Discharge Orders/Prescriptions Prescriptions: New sucralfate [Carafate] 1 gram tablet 1 g PO BID Qty: 60 0RF Continued albuterol sulfate [ProAir HFA] 90 mcg/actuation HFA aerosol inhaler 2 puff inhalation Q6H PRN (Reason: sob) ropinirole 0.5 mg tablet 0.5 mg PO QHS Label Comments: TAKE 1 TABLET BY MOUTH ONCE DAILY budesonide-formoterol [Symbicort] 160-4.5 mcg/actuation HFA aerosol inhaler 2 inh INHALATION BID Qty: 3 3RF Rx Instructions: administer with spacer, rinse mouth after each use amitriptyline 100 MG tablet 100 mg PO QHS Label Comments: MENTAL HEALTH atorvastatin 80 MG tablet 80 mg PO DAILY Label Comments: aspirin 81 MG tablet 81 mg PO DAILY Hold Instructions: Resume on 03/20/21. amlodipine 10 MG tablet 10 mg PO DAILY omeprazole 40 MG capsule,delayed release(DR/EC) 40 mg PO DAILY Hold Instructions: Resume on 05/08/21. doxazosin 8 MG tablet 8 mg PO QHS hydralazine 100 mg tablet 100 mg PO TID nitroglycerin 0.4 MG tablet, sublingual 0.4 mg SL Q5M PRN (Reason: CHEST PAIN) carvedilol 6.25 MG tablet 6.25 mg PO BID bumetanide 2 MG tablet 2 mg PO DAILY prednisone 5 mg tablet 5 mg PO DAILY acetaminophen [Acetaminophen Extra Strength] 500 mg Tablet 1,000 mg PO DAILY PRN (Reason: Pain) sevelamer carbonate 800 mg tablet 800 mg PO TIDCM ascorbic acid (vitamin C) 500 MG tablet 500 mg PO DAILY albuterol sulfate 1.25 mg/3 mL solution for nebulization 1.25 mg INHALATION 4X/DAY Qty: 360 6RF isosorbide mononitrate 60 mg tablet extended release 24 hr 60 mg PO DAILY Qty: 90 3RF Referrals / Follow Up: Kameron Chan DO [Med Staff - Active Staff] - Within 1 Month Levi Laird MD [Primary Care Provider] - Within 1 Week Disposition Disposition (needs filled in before D/C Order can be placed): Home, Self Care Charges/Coding Visit Charges Inpatient E&M: 30718 Disch Hosp >30min
--- NOTE | 2022-05-06 11:11 | CASEMGMT ---
Late entry for 05/05/22 RN CM in to discuss PAL form with patient. RN CM explained PAL form, patient voiced understanding. Pt signed form and filed in chart. Pt provided with a copy of signed PAL form. Patient had no further questions or concerns at this time.
== END 2022-05-05 18:02 | disposition home or self-care (01) ==
LOC: ED 12:18 → MS3 12:29
PROVIDERS: Anesthesiology; Internal Medicine Gastroenterology; Admitting Provider Family Medicine; Emergency Provider Emergency Medicine; PCP Family Medicine; Visit Provider Family Medicine
PROC: 0DJ08ZZ Inspection of Upper Intestinal Tract, Via Natural or Artificial Opening Endoscopic (ICD-10-PCS; CPT 43235; principal; 2022-05-05 15:25)
DX: K25.4 Chronic or unspecified gastric ulcer with hemorrhage (principal); I85.00 Esophageal varices without bleeding; I13.2 Hypertensive heart and chronic kidney disease with heart failure and with stage 5 chronic kidney disease, or end stage renal disease; Z99.2 Dependence on renal dialysis; J44.9 Chronic obstructive pulmonary disease, unspecified; I50.32 Chronic diastolic (congestive) heart failure; E11.22 Type 2 diabetes mellitus with diabetic chronic kidney disease; N18.6 End stage renal disease; J96.11 Chronic respiratory failure with hypoxia; E78.5 Hyperlipidemia, unspecified; K57.10 Diverticulosis of small intestine without perforation or abscess without bleeding; Z79.52 Long term (current) use of systemic steroids; I25.10 Atherosclerotic heart disease of native coronary artery without angina pectoris; Z79.82 Long term (current) use of aspirin; Z79.51 Long term (current) use of inhaled steroids; Z87.891 Personal history of nicotine dependence; D62 Acute posthemorrhagic anemia; Z79.899 Other long term (current) drug therapy; D63.1 Anemia in chronic kidney disease
CPT/HCPCS: 43255; 96365; 96366 ×2; 96376; 36415; 36430; 80048; 83036; 85025; 85610; 85730; 86850; 86900; 86901; 86920; 90937; 93005; J7030; J7040; P9016; A4216; G0257; J2405; J3490

== ENCOUNTER 2022-05-07 09:31 | Inpatient (IN) | payer MEDICARE, MEDICAID, SELFPAY ==
[2022-05-07] VITALS (14 sets, daily range): BP systolic 134–174; BP diastolic 48–81; PULSE 74–89; RESP 16–24; TEMP 36.9–38.1; O2SAT 89–99; BMI 28.1; BMI 28.5
--- NOTE | 2022-05-07 09:40 | EKG12_ITS ---
Test Reason : WEAKNESS Blood Pressure : / mmHG Vent. Rate : 082 BPM Atrial Rate : 082 BPM P-R Int : 174 ms QRS Dur : 104 ms QT Int : 406 ms P-R-T Axes : 059 054 086 degrees QTc Int : 474 ms Sinus rhythm with occasional Premature ventricular complexes Nonspecific ST and T wave abnormality Abnormal ECG Confirmed by ELLEN DOVE, MARKUS ([id number]), make up editor DENVER KRAUSE ([id number]) on 05/08/2022 2:40:21 PM Referred By: Confirmed By:MARKUS HUGHES MD
--- NOTE | 2022-05-07 09:40 | RAD_ITS ---
STUDY: X-RAY CHEST REASON FOR EXAM: Female, 76 years old. fever TECHNIQUE: Single AP portable view of the chest. COMPARISON: December 08, 2021 FINDINGS: 1. Stable right central venous catheter 2. Mild patchy interstitial infiltrates are scattered throughout both lungs with predominance in the left lung base. 3. Normal heart size 4. Stable CABG clips 5. Stable mediastinum and osseous structures 6. No visualized pleural effusion There is no demonstrated abnormality of the visualized soft tissue structures of the upper abdomen. RAD/Chest 1 View (Portable) IMPRESSION: * Mild patchy interstitial infiltrates are scattered throughout both lungs with predominance in the left lung base. Electronically Signed: Kam Hughes MD at 10:59 EST ,
--- NOTE | 2022-05-07 09:49 | EX.ED.DYSGE1 ---
HPI History of Present Illness Chief Complaint: Fever Informant: patient and family (son-in-law) Narrative Narrative: Patient is a 76-year-old female with extensive medical history including end-stage renal disease on hemodialysis (Sunday), coronary artery disease, pulmonary hypertension on 1.5 L at baseline, congestive heart failure, iron deficiency anemia and recent GI bleeding requiring blood transfusion 2 days ago. Patient was discharged from the hospital after receiving a blood transfusion having an EGD and dialysis. Patient was found to have an ulcer with visible vessel on EGD. The son-in-law notes that she did receive her transfusion over 2-1/2 hours which is faster than she normally gets them. She started to have a cough 2 days ago which has progressed. She is been very weak and more short of breath. Family notes that she was working harder to breathe and they increased her oxygen to 2-1/2 L. She had a fever of 101.3 at home is complaining of a stomachache and a headache. She is not sure if she has had any further black or blood in her stool. Patient did receive her regular medications this morning. No other complaints or concerns at this time. [facility] Medical History (Updated 05/07/22 @ 15:[address] Emily Lambert, DO) (HFpEF) heart failure with preserved ejection fraction Accidental fall Anxiety Arthritis Atherosclerotic heart disease of [place] coronary artery without angina pectoris CAD (coronary artery disease) Chronic diastolic heart failure Chronic hyponatremia COPD (chronic obstructive pulmonary disease) Diabetes mellitus type 2 in obese Dyslipidemia Easy bruising ESRD (end stage renal disease) on dialysis Essential hypertension History of blood transfusion History of renal dialysis Leg cramps Morbid obesity with BMI of 40.0-44.9, adult Non-rheumatic mitral regurgitation Non-rheumatic tricuspid valve insufficiency On home oxygen therapy Pulmonary hypertension Restless leg syndrome Restless legs Shortness of breath on exertion Toe fracture, left Wears dentures Wears glasses Home Medications amitriptyline 100 mg tablet 100 mg PO QHS mental health 04/09/13 [History Last Taken 05/06/22] aspirin 81 mg tablet,delayed release 81 mg PO DAILY HEART HEALTH 10/25/17 [History Last Taken 05/07/22] atorvastatin 80 mg tablet 80 mg PO DAILY CHOLESTEROL 10/25/17 [History Last Taken 05/07/22] amlodipine 10 mg tablet 10 mg PO DAILY BP 06/01/18 [History Last Taken 05/06/22] doxazosin 8 mg tablet 8 mg PO QHS blood pressure 08/20/18 [History Last Taken 05/06/22] omeprazole 40 mg capsule,delayed release 40 mg PO DAILY gerd 08/20/18 [History Last Taken 05/06/22] hydralazine 100 mg tablet 100 mg PO TID diuretic 01/01/19 [History Last Taken 05/07/22] bumetanide 2 mg tablet 2 mg PO DAILY diuretic 03/14/19 [History Last Taken 05/07/22] carvedilol 6.25 mg tablet 6.25 mg PO BID blood pressure 03/14/19 [History Last Taken 05/07/22] nitroglycerin 0.4 mg sublingual tablet 0.4 mg sublingual Q5M PRN CHEST PAIN 03/14/19 [History Last Taken Unknown] albuterol sulfate 1.25 mg/3 mL solution for nebulization 1.25 mg (3 mL) inhalation 4X/DAY Wheezing #360 mL 08/17/20 [Rx Last Taken 05/06/22] albuterol sulfate 90 mcg/actuation aerosol inhaler (ProAir HFA) 2 puff inhalation Q6H PRN sob 09/30/20 [History Last Taken 05/06/22] ropinirole 0.5 mg tablet 0.5 mg PO QHS 07/07/21 [History Last Taken 05/06/22] isosorbide mononitrate 60 mg tablet,extended release 24 hr 60 mg PO DAILY #90 tabs 12/26/21 [Rx Last Taken 05/07/22] budesonide-formoterol HFA 160 mcg-4.5 mcg/actuation aerosol inhaler (Symbicort) 2 inh inhalation BID breathing #3 ea 03/10/22 [Rx Last Taken 05/06/22] acetaminophen 500 mg tablet (Acetaminophen Extra Strength) 1,000 mg PO DAILY PRN Pain 05/04/22 [History Last Taken Unknown] ascorbic acid (vitamin C) 500 mg tablet 500 mg PO DAILY SUPPLEMENT 05/04/22 [History Last Taken 05/07/22] prednisone 5 mg tablet 5 mg PO DAILY INFLAMMATION 05/04/22 [History Last Taken 05/07/22] sevelamer carbonate 800 mg tablet 800 mg PO TIDCM PHOSPHATE 05/04/22 [History Last Taken 05/06/22] sucralfate 1 gram tablet (Carafate) 1 g PO BID #60 tabs 05/05/22 [Rx Last Taken 05/07/22] Allergy/AdvReac Type Severity Reaction Status Date / Time Penicillins Allergy Hives Verified 05/04/22 10:34 adhesive tape AdvReac Other Verified 05/04/22 10:34 Family History Mother Heart disease Surgical History H/O four vessel coronary artery bypass graft (~04/16/13) Hx of colonoscopy Hx of esophagogastroduodenoscopy Social History household members: family Smoking Status: Former smoker quit date: 03/05/10 alcohol intake: current alcohol intake frequency: other substance use type: does not use ROS ROS ED Constitutional Constitutional ED: Reports chills and fever(s) Eyes Eyes: Denies change in vision ENT ENT ED: Denies sore throat Cardiovascular Cardiovascular: Denies chest pain Respiratory/Chest Respiratory/Chest: Reports cough and dyspnea Gastrointestinal Gastrointestinal: Denies abdominal pain, nausea or vomiting Musculoskeletal Musculoskeletal: Reports myalgias; Denies arthralgias Integumentary Denies rash Neurologic Neurologic: Reports headache(s) and weakness EXAM Physical Exam Const Vital Signs: 05/07/22 09:32 05/07/22 10:02 05/07/22 10:02 Temperature 99.7 F H 100.6 F H Temperature Source Temporal Temporal Pulse Rate 83 Respiratory Rate 22 H Respiratory Effort Respiratory Pattern Blood Pressure 144/81 H Blood Pressure Mean 102 Pulse Ox 98 Oxygen Delivery Method Room Air Nasal Cannula Oxygen Flow Rate (L/min) 3 05/07/22 10:02 05/07/22 10:10 05/07/22 10:10 Temperature Temperature Source Pulse Rate Respiratory Rate 22 H Respiratory Effort Respiratory Pattern Normal Blood Pressure Blood Pressure Mean Pulse Ox 93 Oxygen Delivery Method Nasal Cannula Oxygen Flow Rate (L/min) 2 05/07/22 10:10 05/07/22 11:31 05/07/22 11:00 Temperature Temperature Source Pulse Rate 78 Respiratory Rate 24 H 16 Respiratory Effort Short of Breath Labored Respiratory Pattern Blood Pressure Blood Pressure Mean Pulse Ox 93 97 89 Oxygen Delivery Method Nasal Cannula Nasal Cannula Nasal Cannula Oxygen Flow Rate (L/min) 2 2 2 05/07/22 11:52 05/07/22 13:39 Temperature 98.7 F 98.9 F Temperature Source Oral Temporal Pulse Rate 89 Respiratory Rate 16 Respiratory Effort Respiratory Pattern Blood Pressure 134/78 H Blood Pressure Mean 96 Pulse Ox 99 Oxygen Delivery Method Nasal Cannula Oxygen Flow Rate (L/min) 3 Positive well nourished and well developed General Appearance ED: well developed and NAD HEENT Reports dry mucous membranes Mouth ED: Yes dry mucous membranes Mouth: dry mucous membranes Eyes PERRL and EOMs intact bilaterally Neck supple and no JVD Chest Wall palpation of chest normal Chest Narrative: Tunneled dialysis catheter in the right anterior chest wall Resp Resp Narrative: Mild tachypnea with increased work of breathing. Scattered wheezing present Cardio regular rate, regular rhythm and no murmurs GI normal to inspection, nondistended, normoactive bowel sounds Back/Spine no CVA tenderness Neuro Neuro Narrative: Somnolent but arouses to verbal stimuli, no focal deficits appreciated. Generally weak. Psych mental status grossly normal Skin no rashes or lesions noted and no wounds MDM MDM MDM Narrative Medical decision making narrative: Patient evaluated for generalized weakness, fever and increased shortness of breath since discharge from the hospital 2 days ago. Family is concerned she could be having a transfusion reaction. She is found to be febrile to emergency with a temperature of 100.6. Patient does have increased work of breathing and is given a DuoNeb in the emergency room. ABG is obtained which shows normal pH, normal PCO2 and mild hypoxia with a PO2 of 62%. Patient's oxygen is increased. Patient does have chronic respiratory failure but only wears a liter and half of oxygen normally. She does have a increase of her white blood cell count with a leukocytosis of 12.7 today and she has an improvement of her anemia with a hemoglobin of 8.8 after her blood transfusion. Given it has been 2 days since her blood transfusion have a low suspicion for transfusion reaction this late afterwards however it is on the differential. Also question of possible aspiration pneumonia, pulmonary emboli or community-acquired pneumonia/viral pneumonia. Possible patient be fluid overloaded as well. Did not check a BNP as patient is end-stage renal and this is often falsely elevated of little clinical value. Patient does not have signs of acute endorgan damage does not meet criteria for sepsis or septic shock. Chest x-ray shows mild patchy interstitial infiltrates scattered at the lungs predominance of the left lung base. This interpreted by myself as well as radiology. Case discussed with hospitalist who recommends CT PE study given her recent hospitalization to ensure she does not have a pulmonary emboli as a cause of her low-grade fever and respiratory symptoms. This is obtained and while this is negative for PE it does show small left pleural effusion, tiny right pleural effusion, moderate groundglass changes which could be consistent with CHF and emphysematous changes of both lungs. Case discussed with admitting physician, Dr. Hillman, patient be covered for community-acquired pneumonia with Levaquin as she does have a penicillin allergy. Blood cultures are pending. She will check antibodies but has a low suspicion for transfusion reaction again given that the symptoms are 48 hours after receiving the transfusion. Given the patient's generalized weakness and somnolence I do think she requires admission at this time as I do not think she is able to properly take care of herself at home because she is so weak. Lab Data Labs: Laboratory Results - last 24 hr 05/07/22 05/07/22 05/07/22 09:57 09:57 09:57 WBC 12.7 H RBC 3.07 L Hgb 8.8 L Hct 27.8 L MCV 90.6 MCH 28.7 MCHC 31.7 L RDW Std Deviation 56.9 H RDW Coeff of Becca 17.2 H Plt Count 336 MPV 9.7 Immature Gran % (Auto) 1.500 H Neut % (Auto) 84.2 H Lymph % (Auto) 4.1 L [place] % (Auto) 8.5 Eos % (Auto) 1.5 Baso % (Auto) 0.2 Absolute Neuts (auto) 10.7 H Absolute Lymphs (auto) 0.52 L Nucleated RBC % 0.2 Differential Comment SCANNED PT 16.6 H INR 1.4 APTT 58.1 H Sodium 133 L Potassium 4.1 Chloride 99 Carbon Dioxide 29.0 Anion Gap 5 BUN 32 H Creatinine 5.30 H Estim Creat Clear Calc 7.25 Est GFR (MDRD) Af Amer 10 L Est GFR (MDRD) Non-Af 8 L BUN/Creatinine Ratio 6.0 L Glucose 116 H Lactic Acid Calcium 8.3 L Total Bilirubin 0.60 AST 17 ALT 13 Alkaline Phosphatase 113 Total Creatine Kinase 88 Total Protein 7.2 Albumin 3.1 L Globulin 4.1 Albumin/Globulin Ratio 0.8 L 05/07/22 09:57 WBC RBC Hgb Hct MCV MCH MCHC RDW Std Deviation RDW Coeff of [place] Plt Count MPV Immature Gran % (Auto) Neut % (Auto) Lymph % (Auto) [place] % (Auto) Eos % (Auto) Baso % (Auto) Absolute Neuts (auto) Absolute Lymphs (auto) Nucleated RBC % Differential Comment PT INR APTT Sodium Potassium Chloride Carbon Dioxide Anion Gap BUN Creatinine Estim Creat Clear Calc Est GFR (MDRD) Af Amer Est GFR (MDRD) Non-Af BUN/Creatinine Ratio Glucose Lactic Acid 0.9 Calcium Total Bilirubin AST ALT Alkaline Phosphatase Total Creatine Kinase Total Protein Albumin Globulin Albumin/Globulin Ratio ABG Data ABG results: ABG 05/07/22 10:33 Specimen Type ART Sample Site L Radial pH 7.40 Bicarbonate Actual 25.7 Total CO2 27 Base Excess 1 O2 Saturation 91 L ABG pCO2 41.2 ABG pO2 62 L Abram Test Positive O2 Delivery Device Cannula Liter Flow 2.0 Radiography Diagnostic Testing: Clinical Impression(s) from Imaging Studies Chest X-Ray 05/07/22 09:40 IMPRESSION: * Mild patchy interstitial infiltrates are scattered throughout both lungs with predominance in the left lung base. Electronically Signed: Kam Hughes MD at 10:59 EST Reading Location ID and State: [employer] / [place] , Service support , Chest CTA 05/07/22 11:59 IMPRESSION: 1. Negative CTA chest examination, without a demonstrated pulmonary embolism or arterial dissection. 2. Mild to moderate subsegmental atelectasis is present in the left lung base and associated with a small left pleural effusion. Mild right basilar atelectasis is also present and associated with a tiny pleural effusion. 3. Mild to moderate diffuse groundglass edema is present throughout both lungs most likely due to CHF. No infiltrates are seen. 4. Cystic emphysematous changes are also present in both lungs with upper lobe predominance. Electronically Signed: Kam Hughes MD at 13:25 EST , Rhythm Strip Rhythm Strip: Sinus Rhythm Rate: 82 Ectopy: PVC(s) EKG Initial EKG: Attestation: I personally reviewed and interpreted this EKG as follows: Interpretation: Sinus Rhythm Comments: Normal sinus rhythm at a rate of 82 bpm with PVCs present Normal axis Normal intervals Nonspecific ST and T wave abnormalities with T wave inversion in aVL, V1 and V2 Compared to prior EKG on 05/05/2022, there are new PVCs Differential Diagnosis Chest pain/SOB: pulmonary embolism Reason(s) PE less likely: Positive for Other (CTA negative for PE), ACS ACS: Positive for EKG without ischemia and history not suggestive of ischemia pain and pneumonia Discharge Plan Dx/Rx/DC Orders Clinical Impression: Acute and chronic respiratory failure with hypoxia, ESRD on dialysis, Generalized weakness, Fever, Leukocytosis, Cough, Pneumonia, Toxic metabolic encephalopathy Disposition Disposition: Acute Care Hospital [facility] Discharge Date/Time: 05/07/22 14:40
[2022-05-07] MEDS: Acetaminophen 325 MG Tablet 650 MG PO (10:07)
[2022-05-07] MEDS: Ipratropium/Albuterol Sulfate 3 ML AMPUL.NEB INHALATION ×2 (10:07→18:59)
[2022-05-07 10:14] LABS: Absolute Lymphocyte Count 0.52 X10^3/uL (0.83-4.51); Absolute Neutrophil Count 10.7 X10^3/uL (2.0-7.7); Basophil# 0.03 X10^3/uL; Basophil% 0.2 % (0-1); Eosinophil# 0.19 X10^3/uL; Eosinophils% 1.5 % (0-5); Hematocrit 27.8 % (37-47); Hemoglobin 8.8 g/dL (12.0-15.0); Lymphocyte # 0.52 X10^3/ul (0.83-4.51); Lymphocyte % 4.1 % (19-41); Mean Corp Hgb Conc 31.7 g/dL (32-36); Mean Corpuscular Hgb 28.7 pg (27.0-32.0); Mean Corpuscular Volume 90.6 fL (81-99); Mean Platelet Vol. 9.7 fl (6.2-12.0); Monocyte# 1.08 X10^3/uL; Monocyte% 8.5 % (0-10); NRBC Flagged by Analyzer 0.2 % (0-5); Neutrophil # 10.66 X10^3/uL (2.7-7.7); Neutrophil % 84.2 % (47-70); POSITIVE DIFFERENTIAL YES; Platelet Count 336 K/mm3 (150-450); RBC Distribution Width CV 17.2 % (11.6-14.6); RBC Distribution Width SD 56.9 fl (35.1-43.9); Red Blood Count 3.07 M/mm3 (4.2-5.4); White Blood Count 12.7 K/mm3 (4.4-11.0)
[2022-05-07 10:23] LABS: Differential Indicated SCAN CRITERIA MET
[2022-05-07 10:28] LABS: International Normalized Ratio 1.4; Prothrombin Time (Protime)PT. 16.6 SECONDS (11.7-14.9)
[2022-05-07 10:29] LABS: Partial Thromboplast Time 58.1 Seconds (24.1-36.2)
[2022-05-07 10:34] LABS: Lactic Acid 0.9 mmol/L (0.4-1.9)
[2022-05-07 10:36] LABS: ALB/GLOB Ratio 0.8 RATIO (0.9-2.4); AST(SGOT) 17 U/L (15-37); Alanine Aminotransfer ALT/SGPT 13 U/L (13-56); Albumin, Serum 3.1 g/dL (3.2-5.0); Alkaline Phosphatase 113 U/L (45-117); Anion Gap 5 (5-15); BUN 32 mg/dL (7-18); CPK Total, Creatine Kinase 88 U/L (26-192); Calcium,Total 8.3 mg/dL (8.5-10.1); Chloride 99 mmol/L (98-107); EST Glomerular Filtration Rate 8 mL/min (>60); Est Glom Filt Rate - Afr Amer 10 mL/min (>60); Estimated Creatinine Clearance 7.25 ml/min; Globulin 4.1 g/dL (2.2-4.2); Glucose 116 mg/dL (74-106); Potassium 4.1 mmol/L (3.5-5.1); Protein, Total 7.2 g/dL (6.4-8.2); Sodium Level 133 mmol/L (136-145)
[2022-05-07 10:41] LABS: Allen Test Positive; Base Excess 1 mmol/L (-2 to +2); Bicarbonate 25.7 mmol/L (22-26); Blood Gas Specimen Type ART; O2 Delivery Device Cannula; PO2 62 mmHG (75-100); SITE L Radial; SO2 91 % (95-99); Total Carbon Dioxide 27 mmol/L; pCO2 41.2 mmHg (35-45)
[2022-05-07 11:10] LABS: Differential Comment SCANNED
--- NOTE | 2022-05-07 11:59 | CT_ITS ---
STUDY: CTA CHEST REASON FOR EXAM: Female, 76 years old. PE weakness and worsening SOB, COPD, 4 vessel CABG, hypertension, dialysis RADIATION DOSAGE (If Supplied By Facility): CTDIvol = ( 9.28 ) mGy, DLP = ( 361.38 ) mGycm TECHNIQUE: The examination was performed with the intravenous administration of IV 75mL [id number]-[id number]. Post-processing of the angiographic images was performed, with multiplanar reformation and 3D reconstruction. Individualized dose optimization techniques were used for this CT. COMPARISON: CT of the chest dated September 22, 2020. Chest x-ray dated May 07, 2022 FINDINGS: Right central venous catheter terminates in the distal SVC. Normal enhancement of the main pulmonary artery and right and left pulmonary arteries. Normal enhancement of the bilateral peripheral pulmonary arteries. There is no demonstrated pulmonary embolism. There is atherosclerotic calcification of the aortic arch with tortuosity. There is no demonstrated aortic dissection. Sternal cerclage wires and vascular clips are present from a prior sternotomy and coronary artery bypass graft procedure (CABG). There are calcifications of the coronary arteries. Normal heart size. No pericardial effusion is present. Normal mediastinum. Normal hilar regions. Normal visualized trachea and bronchi. The lungs are well expanded. Mild to moderate subsegmental atelectasis is present in the left lung base and associated with a small left pleural effusion. Mild right basilar atelectasis is also present and associated with a tiny pleural effusion. Mild to moderate diffuse groundglass edema is present throughout both lungs most likely due to CHF. No infiltrates are seen. Cystic emphysematous changes are also present in both lungs with upper lobe predominance. Normal chest wall structures. There are degenerative changes of thoracic spine. Mild mesenteric edema is seen in the central aspect of the upper abdomen. No acute process is visualized in the upper abdomen. CT/CTA Chest W/WO Contrast IMPRESSION: 1. Negative CTA chest examination, without a demonstrated pulmonary embolism or arterial dissection. 2. Mild to moderate subsegmental atelectasis is present in the left lung base and associated with a small left pleural effusion. Mild right basilar atelectasis is also present and associated with a tiny pleural effusion. 3. Mild to moderate diffuse groundglass edema is present throughout both lungs most likely due to CHF. No infiltrates are seen. 4. Cystic emphysematous changes are also present in both lungs with upper lobe predominance. Electronically Signed: Kam Hughes MD at 13:25 EST ,
[2022-05-07] MEDS: levoFLOXacin IV 750 MG/150 ML BAG 100 MG IV (14:00)
--- NOTE | 2022-05-07 14:12 | PCM.HP.STD ---
HPI - General General Date of Admission: 05/07/22 Date of Service: 05/07/22 Chief Complaint: Cough/shortness of breath HPI Narrative JULISSA VEGA, is a 76 F who presented to the emergency department at [facility] on 05/07/2022 with cough and shortness of breath. The patient was admitted here recently for GI bleed from 05/04/2022 through 05/05/2022. Family states that she was doing okay once they got home but through the night on 05/05/2022 she developed a cough and has gotten progressively more short of breath. She has had associated malaise, mild confusion, generalized weakness, decreased appetite, and fever. Temp at home was as high as 101.3. She is also been complaining of a stomachache and headache. She did have transfusion during the hospitalization on 05/04/2022 but I doubt this is transfusion related based on the timing and associated symptoms. She has had no significant bowel movement since discharge and no black or blood in her stool. She is had no nausea or vomiting. The abdominal pain is in her central abdomen just lateral to her umbilicus on the left side and she does have a firm area there. She was able to take her medications this morning but is not eating or drinking much. Her last dialysis was on Sunday. Vital signs at presentation showed a temperature of 99.7 (Tmax while in the hospital emergency department was 100.6), blood pressure is 144/81, respiratory rate 22, oxygen saturations were 93% on 2 L nasal cannula but she desatted into the upper 80s and her oxygen was increased to 3 L. CBC shows a new leukocytosis at 12.7 with a left shift present having an 84.2% neutrophilia. Her hemoglobin is stable and 8.8. Platelets are normal. Coags are slightly elevated having an INR of 1.4. An ABG was obtained and she was found to have a pH of 7.40/PCO2 of 41.2/PO2 of 62 with a sat of 91% on 2 L nasal cannula. Her chemistry panel shows a chronic hyponatremia and BUN and creatinine elevation as she is end-stage renal disease on dialysis. Lactic acid was 0.9. Liver functions normal. EKG was normal sinus rhythm with few PVCs, normal intervals and no ST-T wave changes concerning for acute ischemia. CTA of her chest was performed and was negative for PE or arterial dissection but did show mild to moderate subsegmental atelectasis at the bilateral bases with small bilateral pleural effusions as well as mild to moderate diffuse groundglass appearance in both lungs and cystic emphysematous changes in both lungs predominantly in the upper lobes. She was started on Levaquin in emergency department and request for admission was made. [facility] Medical History (HFpEF) heart failure with preserved ejection fraction Accidental fall Anxiety Arthritis Atherosclerotic heart disease of [place] coronary artery without angina pectoris CAD (coronary artery disease) Chronic diastolic heart failure Chronic hyponatremia COPD (chronic obstructive pulmonary disease) Diabetes mellitus type 2 in obese Dyslipidemia Easy bruising ESRD (end stage renal disease) on dialysis Essential hypertension History of blood transfusion History of renal dialysis Leg cramps Morbid obesity with BMI of 40.0-44.9, adult Non-rheumatic mitral regurgitation Non-rheumatic tricuspid valve insufficiency On home oxygen therapy Pulmonary hypertension Restless leg syndrome Restless legs Shortness of breath on exertion Toe fracture, left Wears dentures Wears glasses Home Medications amitriptyline 100 mg tablet 100 mg PO QHS mental health 04/09/13 [History Last Taken 05/06/22] aspirin 81 mg tablet,delayed release 81 mg PO DAILY HEART HEALTH 10/25/17 [History Last Taken 05/07/22] atorvastatin 80 mg tablet 80 mg PO DAILY CHOLESTEROL 10/25/17 [History Last Taken 05/07/22] amlodipine 10 mg tablet 10 mg PO DAILY BP 06/01/18 [History Last Taken 05/06/22] doxazosin 8 mg tablet 8 mg PO QHS blood pressure 08/20/18 [History Last Taken 05/06/22] omeprazole 40 mg capsule,delayed release 40 mg PO DAILY gerd 08/20/18 [History Last Taken 05/06/22] hydralazine 100 mg tablet 100 mg PO TID diuretic 01/01/19 [History Last Taken 05/07/22] bumetanide 2 mg tablet 2 mg PO DAILY diuretic 03/14/19 [History Last Taken 05/07/22] carvedilol 6.25 mg tablet 6.25 mg PO BID blood pressure 03/14/19 [History Last Taken 05/07/22] nitroglycerin 0.4 mg sublingual tablet 0.4 mg sublingual Q5M PRN CHEST PAIN 03/14/19 [History Last Taken Unknown] albuterol sulfate 1.25 mg/3 mL solution for nebulization 1.25 mg (3 mL) inhalation 4X/DAY Wheezing #360 mL 08/17/20 [Rx Last Taken 05/06/22] albuterol sulfate 90 mcg/actuation aerosol inhaler (ProAir HFA) 2 puff inhalation Q6H PRN sob 09/30/20 [History Last Taken 05/06/22] ropinirole 0.5 mg tablet 0.5 mg PO QHS 07/07/21 [History Last Taken 05/06/22] isosorbide mononitrate 60 mg tablet,extended release 24 hr 60 mg PO DAILY #90 tabs 12/26/21 [Rx Last Taken 05/07/22] budesonide-formoterol HFA 160 mcg-4.5 mcg/actuation aerosol inhaler (Symbicort) 2 inh inhalation BID breathing #3 ea 03/10/22 [Rx Last Taken 05/06/22] acetaminophen 500 mg tablet (Acetaminophen Extra Strength) 1,000 mg PO DAILY PRN Pain 05/04/22 [History Last Taken Unknown] ascorbic acid (vitamin C) 500 mg tablet 500 mg PO DAILY SUPPLEMENT 05/04/22 [History Last Taken 05/07/22] prednisone 5 mg tablet 5 mg PO DAILY INFLAMMATION 05/04/22 [History Last Taken 05/07/22] sevelamer carbonate 800 mg tablet 800 mg PO TIDCM PHOSPHATE 05/04/22 [History Last Taken 05/06/22] sucralfate 1 gram tablet (Carafate) 1 g PO BID #60 tabs 05/05/22 [Rx Last Taken 05/07/22] Allergy/AdvReac Type Severity Reaction Status Date / Time Penicillins Allergy Hives Verified 05/04/22 10:34 adhesive tape AdvReac Other Verified 05/04/22 10:34 Family History Mother Heart disease Surgical History H/O four vessel coronary artery bypass graft (~04/16/13) Hx of colonoscopy Hx of esophagogastroduodenoscopy Social History household members: family Smoking Status: Former smoker quit date: 03/05/10 alcohol intake: current alcohol intake frequency: other substance use type: does not use ROS Constitutional Constitutional: Reports anorexia, chills, fatigue, fever(s), malaise and weakness; Denies change in weight, night sweats or other Eyes Eyes: Denies blurry vision, change in eye color, change in vision, discharge from eye(s), double vision, erythema, eye pain, loss of vision or other ENT HEENT: Reports headache(s); Denies abnormal hearing, dysphagia, ear pain, epistaxis, hearing loss, nasal congestion, nasal discharge, post nasal drip, sinus pressure, sore throat or other Cardiovascular Cardiovascular: Reports dyspnea on exertion; Denies chest pain, claudication, edema, lightheadedness, orthopnea, palpitations, paroxysmal nocturnal dyspnea, rapid heart rate, syncope or other Respiratory/Chest Respiratory/Chest: Reports cough, dyspnea, shortness of breath at rest, shortness of breath with exertion and wheezing; Denies excessive phlegm production, hemoptysis, productive cough or other Gastrointestinal Gastrointestinal: Reports abdominal pain; Denies coffee ground emesis, constipation, diarrhea, dyspepsia, hematemesis, hematochezia, loose stools, melena, nausea, vomiting or other Genitourinary Genitourinary: Denies burning urination, difficulty urinating, dysuria, hematuria, nocturia, urinary frequency, urinary hesitancy, urinary incontinence, urinary urgency or other Musculoskeletal Musculoskeletal: Reports myalgias; Denies arthralgias, back pain, joint pain, joint stiffness, joint swelling, neck pain or other Neurologic Neurologic: Reports other Details: Significant generalized weakness ; Denies abnormal gait, abnormal speech, confusion, disequilibrium, dizziness, focal weakness, headache(s), numbness, paresthesias, seizure-like activity, seizures, syncope, tingling or tremor(s) Psychiatric Psychiatric: Denies anxiety, depression, homicidal ideation, suicidal ideation or other Endocrine Endocrinology: Denies change in body appearance, cold intolerance, excessive sweating, heat intolerance, polydipsia, polyuria or other Hematologic/Lymphatic Hematologic/Lymphatic: Denies anemia, easy bleeding, easy bruising, lymphadenopathy or other Allergic/Immunologic Allergic/Immunologic: Denies rhinitis, hives, eczemia, asthma or other Vital Signs Vital Signs Vital Signs: 05/07/22 09:32 05/07/22 10:02 05/07/22 10:02 Temperature 99.7 F H 100.6 F H Temperature Source Temporal Temporal Pulse Rate 83 Respiratory Rate 22 H Respiratory Effort Respiratory Pattern Blood Pressure 144/81 H Blood Pressure Mean 102 Pulse Ox 98 Oxygen Delivery Method Room Air Nasal Cannula Oxygen Flow Rate (L/min) 3 05/07/22 10:02 05/07/22 10:10 05/07/22 10:10 Temperature Temperature Source Pulse Rate Respiratory Rate 22 H Respiratory Effort Respiratory Pattern Normal Blood Pressure Blood Pressure Mean Pulse Ox 93 Oxygen Delivery Method Nasal Cannula Oxygen Flow Rate (L/min) 2 05/07/22 10:10 05/07/22 11:31 05/07/22 11:00 Temperature Temperature Source Pulse Rate 78 Respiratory Rate 24 H 16 Respiratory Effort Short of Breath Labored Respiratory Pattern Blood Pressure Blood Pressure Mean Pulse Ox 93 97 89 Oxygen Delivery Method Nasal Cannula Nasal Cannula Nasal Cannula Oxygen Flow Rate (L/min) 2 2 2 05/07/22 11:52 05/07/22 13:39 Temperature 98.7 F 98.9 F Temperature Source Oral Temporal Pulse Rate 89 Respiratory Rate 16 Respiratory Effort Respiratory Pattern Blood Pressure 134/78 H Blood Pressure Mean 96 Pulse Ox 99 Oxygen Delivery Method Nasal Cannula Oxygen Flow Rate (L/min) 3 Weight Weight: 69.853 kg Body Mass Index (BMI) 28.1 Physical Exam Const alert and well nourished; Negative for oriented x3 Constitutional Narrative: Elderly white female lying in bed sleeping, awakens, son-in-law at bedside, appears ill but nontoxic, oriented to self and place but having some confusion with regards to time General Appearance: cooperative HEENT normocephalic, head/scalp atraumatic, hearing grossly normal bilaterally and moist oral mucous membranes HEENT Narrative: Upper dentures in place, Mallampati 3, no thrush Eyes PERRL and EOMs intact bilaterally Eyes Narrative: Conjunctiva are slightly pale, left eye with some crusting but no erythema or injection, no scleral icterus Neck no lymphadenopathy and supple Neck Narrative: Cardiac murmur that radiates to bilateral carotid arteries, trachea midline, no thyroid enlargement Resp no retractions and no use of accessory muscles Resp Narrative: Mild tachypnea, rhonchi at the right base with few scattered end expiratory wheeze at the right base as well otherwise diffusely diminished Auscultation: rhonchi and wheezes; Negative for rales Cardio regular rate, regular rhythm, S1 normal heart sound, no rub, no gallops and no clicks; Negative for S2 normal heart sound or no murmurs Cardio Narrative: 3 out of 6 systolic murmur with a soft S2 GI normal to inspection, nondistended, normoactive bowel sounds and soft to palpation; Negative for non-tender GI Narrative: Tenderness in the left periumbilical area with a nodular feeling elongated firm structure that feels like it is in the abdominal wall subcutaneously-this is tender Extremity no clubbing, cyanosis or edema Extremity Narrative: Pedal pulses are 2+, radial pulses are 2+ Skin Skin Narrative: Skin with darkish hue and ecchymosis scattered, tunneled dialysis catheter in the right chest appears clean, dry and intact Neuro No oriented x3, CN's II-XII intact bilaterally, moves all extremities and no focal motor deficits Neuro Narrative: Significant generalized weakness noted but no focal deficits, speech is appropriate but somewhat delayed in response time due to fatigue Psych Psych Narrative: Pleasant, affect is flat mood is depressed-suspect situationally appropriate Results Lab / Micro Data Result Diagrams: 05/07/22 09:57 05/07/22 09:57 Labs: Laboratory Results - last 24 hr 05/07/22 09:57: Sodium 133 L, Potassium 4.1, Chloride 99, Carbon Dioxide 29.0, Anion Gap 5, BUN 32 H, Creatinine 5.30 H, Estim Creat Clear Calc 7.25, Est GFR (MDRD) Af Amer 10 L, Est GFR (MDRD) Non-Af 8 L, BUN/Creatinine Ratio 6.0 L, Glucose 116 H, Calcium 8.3 L, Total Bilirubin 0.60, AST 17, ALT 13, Alkaline Phosphatase 113, Total Creatine Kinase 88, Total Protein 7.2, Albumin 3.1 L, Globulin 4.1, Albumin/Globulin Ratio 0.8 L 05/07/22 09:57: WBC 12.7 H, RBC 3.07 L, Hgb 8.8 L, Hct 27.8 L, MCV 90.6, MCH 28.7, MCHC 31.7 L, RDW Std Deviation 56.9 H, RDW Coeff of Becca 17.2 H, Plt Count 336, MPV 9.7, Immature Gran % (Auto) 1.500 H, Neut % (Auto) 84.2 H, Lymph % (Auto) 4.1 L, [place] % (Auto) 8.5, Eos % (Auto) 1.5, Baso % (Auto) 0.2, Absolute Neuts (auto) 10.7 H, Absolute Lymphs (auto) 0.52 L, Nucleated RBC % 0.2, Differential Comment SCANNED 05/07/22 09:57: PT 16.6 H, INR 1.4, APTT 58.1 H 05/07/22 09:57: Lactic Acid 0.9 Micro: Microbiology 05/07/22 09:56 Nasal Secretion SARS-CoV-2 & FLU Antigen (Rapid) - Final ABG Data ABG results: ABG 05/07/22 10:33 Specimen Type ART Sample Site L Radial pH 7.40 Bicarbonate Actual 25.7 Total CO2 27 Base Excess 1 O2 Saturation 91 L ABG pCO2 41.2 ABG pO2 62 L Abram Test Positive O2 Delivery Device Cannula Liter Flow 2.0 Radiology Impression Chest X-Ray 05/07/22 09:40 IMPRESSION: * Mild patchy interstitial infiltrates are scattered throughout both lungs with predominance in the left lung base. Electronically Signed: Kam Hughes MD at 10:59 EST Reading Location ID and State: [address] [place] [address] , Service support , Chest CTA 05/07/22 11:59 IMPRESSION: 1. Negative CTA chest examination, without a demonstrated pulmonary embolism or arterial dissection. 2. Mild to moderate subsegmental atelectasis is present in the left lung base and associated with a small left pleural effusion. Mild right basilar atelectasis is also present and associated with a tiny pleural effusion. 3. Mild to moderate diffuse groundglass edema is present throughout both lungs most likely due to CHF. No infiltrates are seen. 4. Cystic emphysematous changes are also present in both lungs with upper lobe predominance. Electronically Signed: Kam Hughes MD at 13:25 EST Reading Location ID and State: [facility] / [place] , Service support , Assessment & Plan Assessment/Plan (1) Fever: (2) Leukocytosis: (3) Cough: (4) Pneumonia: (5) Toxic metabolic encephalopathy: (6) Hypoxia: (7) Abdominal pain: (8) Generalized weakness: PLAN: Plan Acute hypoxia with chronic hypoxic respiratory failure -Suspect acute hypoxia is from pneumonia--> viral versus bacterial -Patient requiring 3 L of oxygen--> baseline is 1.5 to 2 L -Patient with cough/fever/mental status change/anorexia/generalized weakness -COVID and flu were negative -Respiratory viral panel pending -Patient does make some urine so we will check strep pneumo and Legionella antigens -Levaquin initiated the emergency department and will dose 500 every 48 hours ongoing with patient being on dialysis -Blood cultures -Check sputum culture if patient able to produce -Scheduled and as needed aerosols -Continue steroid inhaler -Continue chronic steroids at 10 mg daily -I-S -Acapella 10 times every 2 hours while awake -Lactate was unremarkable -CTA of the chest shows no PE or arterial dissection but does show mild to moderate subsegmental atelectasis in the left lung and a small left pleural effusion along with mild right basilar atelectasis and a tiny pleural effusion as well as mild to moderate groundglass edema in both lungs and cystic emphysematous changes in both upper lung [place] Metabolic/toxic encephalopathy -Patient with mild confusion -Oriented to self and place but difficulty with time -Suspect related to the above -Monitor clinically -Patient also seems very fatigued Fever/leukocytosis -Attributed to the above -Antibiotics as noted -Cultures pending -Monitor Abdominal pain -Patient has nodular area in left lower abdomen just lateral to the umbilicus that is elongated and shape somewhat like a sausage -CT of the abdomen is pending -As needed Tylenol for now -May need more aggressive IV medication for pain depending on symptoms Recent GI bleed -Admitted from 05/04/2022 through 05/05/2022 -EGD performed on 05/05/2022 and demonstrated grade 1 varices in the upper third of the esophagus, 1 oozing cratered gastric ulcer with a visible vessel on the lesser curvature of the stomach for which a hemostatic clip was placed and coagulation using heater probe, 9 mm nonbleeding diverticulum in the second portion of duodenum -Hemoglobin is stable at 8.8--> was 8.0 on discharge -Bowels have not moved since discharge -No sign of bleeding -Repeat CBC in a.m. -Continue PPI and Carafate End-stage renal disease -HD dependent -MWF HD -Consult nephrology COPD/PAH who group 3 -Patient O2 dependent at 1.5-2 L at baseline -Currently requiring 3 L -Hold home nebulizers and albuterol -Home budesonide/formoterol HFA -Scheduled and as needed nebulizers -Continue home oral prednisone -Right ventricular systolic pressure on last echo was 64 mmHg Mitral valve stenosis/aortic valve stenosis -Recommend continued outpatient cardiac follow-up -Last echo was on 10/14/2020 CAD/HTN/HPL -Continue aspirin -Continue atorvastatin -Continue Bumex -Continue carvedilol -Continue doxazosin -Continue hydralazine -continue isosorbide mononitrate History of diabetes -Patient is not on oral medications or insulin -Monitor -Blood sugar on admission was 116 -It appears that patient has lost a significant amount of weight as well Chronic anemia -Baseline hemoglobin appears to be between 8 and 9 -Current hemoglobin is 8.8 -Continue to monitor -No signs of blood loss at this time Restless leg syndrome -Continue home ropinirole History of tobacco abuse -Remote -Quit in 2010 -Encourage continued cessation DVT prophylaxis -Heparin 3 times daily CODE STATUS -DNR CCA with no intubation as verified on admission son-in-law at the bedside Charges/Coding Visit Charges Inpatient E&M: 13957 Init Hosp L3
--- NOTE | 2022-05-07 14:35 | CT_ITS ---
STUDY: CT ABDOMEN AND PELVIS WITHOUT CONTRAST REASON FOR EXAM: Female, 76 years old. abdominal pain L periumbilical area had CTA chest earlier today, dialysis patient, hypertension. RADIATION DOSAGE (If Supplied By Facility): CTDIvol = ( 11.55 ) mGy, DLP = ( 617.69 ) mGycm TECHNIQUE: Transaxial images were obtained from the dome of the diaphragm to the symphysis pubis without oral contrast, and without intravenous contrast. Sagittal and coronal images were reconstructed. Individualized dose optimization techniques were used for this CT. COMPARISON: CT of the abdomen and pelvis dated December 14, 2021 FINDINGS: Small bilateral pleural effusions are present. Mild groundglass edema is also seen in the visualized aspects of both lungs. Redemonstration of mildly cirrhotic liver with nodularity and slight capsular retraction anteriorly. No masses or ductal dilatation is present. Prior cholecystectomy. Portal vein hypertension with venous varices. Mild central abdominal mesenteric edema and subcentimeter lymphadenopathy unchanged likely due to chronic inflammation. Normal liver. Normal spleen. Normal pancreas. Normal bilateral adrenal glands. There is moderate cortical atrophy of the right kidney, consistent with chronic medical renal disease. There is moderate cortical atrophy of the left kidney, consistent with chronic medical renal disease. there is no demonstrated hydronephrosis or renal masses or radiopaque stones. Normal visualized stomach. Normal small intestine. There are multiple colonic diverticula consistent with diverticulosis. There are surgical clips in the region of the appendix consistent with a prior appendectomy. No free air or free fluid or bowel dilatation is seen. There is no evidence of bowel obstruction. 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 Normal inferior vena cava. Normal retroperitoneum. Normal urinary bladder. Unremarkable uterus and adnexa. A small amount of ascites is present in the pelvis. There is a small umbilical hernia containing fat. There are diffuse degenerative changes of the visualized lumbar spine. CT/Abdomen/Pelvis without Cont IMPRESSION: 1. Cirrhosis, portal vein hypertension, chronic subcentimeter central abdominal retroperitoneal lymphadenopathy and mesenteric edema 2. Small amount of pelvic ascites 3. Small fat-containing umbilical hernia 4. Colonic diverticulosis Electronically Signed: Kam Hughes MD at 16:01 EST ,
[2022-05-07] MEDS: 0.9% Saline Lock 10 ML Syringe IV (15:57)
[2022-05-07] MEDS: Heparin Injection (Vial) 5,000 UNIT/ML VIAL 5000 UNIT SC ×2 (15:57→20:57)
[2022-05-07] MEDS: Sucralfate 1 GM Tablet PO (15:57)
[2022-05-07] MEDS: hydrALAZINE 50 MG Tablet 100 MG PO ×2 (17:01→20:57)
[2022-05-07] MEDS: SEVELAMER CARBONATE 800 MG TABLET PO (17:02)
[2022-05-07] MEDS: Carvedilol 6.25 MG Tablet PO (20:57)
[2022-05-07] MEDS: guaiFENesin 1,200 MG Tablet 1200 MG PO (20:57)
[2022-05-07] MEDS: Pramipexole Di-HCl 0.25 MG Tablet PO (20:58)
[2022-05-07] MEDS: Doxazosin 4 MG Tablet 8 MG PO (21:02)
[2022-05-07] MEDS: Amitriptyline 100 MG Tablet PO (21:03)
[2022-05-07 21:24] LABS: M R Staph aureus DNA By PCR Negative (Negative); Probe Check PASS; Specimen Processing Control PASS
[2022-05-07 21:43] LABS: Mucous, Urine 0 SEEN /hpf (<or=2+); Red Blood Cells-Urine 0 SEEN /hpf (0-5)
[2022-05-07 22:54] LABS: Color, Urine Yellow (Yellow); Glucose, Dipstick Normal (Normal); Ketone-Dipstick Negative (Negative); Leukocyte Esterase-Dipstick 500 /ul (Negative); Nitrite-Dipstick Negative (Negative); Occult Blood-Urine Negative /ul (Negative); Protein-Dipstick 30 mg/dl (Negative); Urine Clarity Sl. Cloudy (Clear); Urine Urobilinogen 1 mg/dl (Normal)
[2022-05-07 22:58] LABS: Urine Bilirubin Dipstick 3 mg/dL (Negative)
[2022-05-07 23:06] LABS: Bacteria 1+ /hpf (None Seen); Squamous Epithelial Cells - UA 5-10 SEEN /hpf (5-10); White Blood Cells 10-25 SEEN /hpf (0-5)
[2022-05-08] VITALS (10 sets, daily range): BP systolic 153–174; BP diastolic 58–73; PULSE 74–90; RESP 16–20; TEMP 36.8–37.4; O2SAT 91–96
[2022-05-08] MEDS: Ipratropium/Albuterol Sulfate 3 ML AMPUL.NEB INHALATION ×3 (00:17→19:20)
[2022-05-08 05:27] LABS: Absolute Lymphocyte Count 0.48 X10^3/uL (0.83-4.51); Absolute Neutrophil Count 11.8 X10^3/uL (2.0-7.7); Basophil# 0.05 X10^3/uL; Basophil% 0.4 % (0-1); Eosinophil# 0.17 X10^3/uL; Eosinophils% 1.2 % (0-5); Hematocrit 26.4 % (37-47); Hemoglobin 8.5 g/dL (12.0-15.0); Lymphocyte # 0.48 X10^3/ul (0.83-4.51); Lymphocyte % 3.5 % (19-41); Mean Corp Hgb Conc 32.2 g/dL (32-36); Mean Corpuscular Hgb 28.8 pg (27.0-32.0); Mean Corpuscular Volume 89.5 fL (81-99); Mean Platelet Vol. 9.2 fl (6.2-12.0); Monocyte# 1.11 X10^3/uL; Monocyte% 8.1 % (0-10); NRBC Flagged by Analyzer 0 % (0-5); Neutrophil # 11.78 X10^3/uL (2.7-7.7); Neutrophil % 85.6 % (47-70); POSITIVE DIFFERENTIAL YES; Platelet Count 286 K/mm3 (150-450); RBC Distribution Width CV 17.4 % (11.6-14.6); RBC Distribution Width SD 56.5 fl (35.1-43.9); Red Blood Count 2.95 M/mm3 (4.2-5.4); White Blood Count 13.8 K/mm3 (4.4-11.0)
[2022-05-08 05:32] LABS: Differential Indicated SCAN CRITERIA MET
[2022-05-08 05:57] LABS: ALB/GLOB Ratio 0.7 RATIO (0.9-2.4); AST(SGOT) 16 U/L (15-37); Alanine Aminotransfer ALT/SGPT 9 U/L (13-56); Albumin, Serum 2.8 g/dL (3.2-5.0); Alkaline Phosphatase 108 U/L (45-117); Anion Gap 10 (5-15); BUN 42 mg/dL (7-18); BUN/Creat Ratio 6.6 RATIO (10-20); Calcium,Total 8.3 mg/dL (8.5-10.1); Chloride 95 mmol/L (98-107); Creatinine, Serum 6.34 mg/dL (0.55-1.02); EST Glomerular Filtration Rate 7 mL/min (>60); Est Glom Filt Rate - Afr Amer 8 mL/min (>60); Estimated Creatinine Clearance 6.06 ml/min; Glucose 96 mg/dL (74-106); Magnesium 1.6 mg/dL (1.6-2.6); Protein, Total 6.8 g/dL (6.4-8.2); Sodium Level 132 mmol/L (136-145)
[2022-05-08] MEDS: hydrALAZINE 50 MG Tablet 100 MG PO ×3 (06:04→21:07)
[2022-05-08] MEDS: Sucralfate 1 GM Tablet PO ×2 (06:07→17:04)
[2022-05-08] MEDS: Heparin Injection (Vial) 5,000 UNIT/ML VIAL 5000 UNIT SC ×3 (06:07→21:07)
[2022-05-08 06:56] LABS: Anisocytosis 1+; Hypochromasia 1+; Polychromasia RARE
[2022-05-08] MEDS: SEVELAMER CARBONATE 800 MG TABLET PO ×3 (08:40→18:34)
[2022-05-08] MEDS: Aspirin E.C. 81 MG Tablet PO (08:40)
[2022-05-08] MEDS: Ascorbic Acid 500 MG Tablet PO (08:40)
[2022-05-08] MEDS: predniSONE 5 MG Tablet PO (08:40)
[2022-05-08] MEDS: Carvedilol 6.25 MG Tablet PO ×2 (08:50→21:06)
[2022-05-08] MEDS: Isosorbide Mononitrate 60 MG Tablet PO (08:50)
[2022-05-08] MEDS: amLODIPine 10 MG Tablet PO (08:50)
[2022-05-08] MEDS: guaiFENesin 1,200 MG Tablet 1200 MG PO ×2 (09:38→21:07)
[2022-05-08] MEDS: Pantoprazole Sodium 40 MG Tablet PO (09:38)
[2022-05-08] MEDS: Bumetanide 2 MG Tablet PO (09:38)
--- NOTE | 2022-05-08 13:32 | PCM.CONS.R ---
Assessment & Plan Assessment/Plan (1) ESRD on dialysis: PLAN: Seen on dialysis today. Discussed with staff, see orders/flowsheets. Volume status looks acceptable. Electrolytes are ok Anemia. Suspected GI bleed. Had GI work-up last week. Hemoglobin is stable. She gets long-acting erythropoietin with dialysis. HPI Consult Data Date of Consult: 05/08/22 HPI Narrative Reason for Consultation: ESRD HPI Narrative: JULISSA VEGA, is a 76 F who presents to the hospital with fever, cough. She was admitted here last week with suspected GI bleed, was discharged 2 days ago. Came back next day with fever, cough. Chest x-ray showed pneumonia, currently being treated for pneumonia. Feels somewhat better since admission. Seen on dialysis today. Her usual dialysis schedule is Sunday, Sunday, Sunday. She has a right IJ tunneled dialysis catheter for access. [facility] Medical History (Updated 05/07/22 @ 15:[address] Emily Lambert, DO) (HFpEF) heart failure with preserved ejection fraction Accidental fall Anxiety Arthritis Atherosclerotic heart disease of [place] coronary artery without angina pectoris CAD (coronary artery disease) Chronic diastolic heart failure Chronic hyponatremia COPD (chronic obstructive pulmonary disease) Diabetes mellitus type 2 in obese Dyslipidemia Easy bruising ESRD (end stage renal disease) on dialysis Essential hypertension History of blood transfusion History of renal dialysis Leg cramps Morbid obesity with BMI of 40.0-44.9, adult Non-rheumatic mitral regurgitation Non-rheumatic tricuspid valve insufficiency On home oxygen therapy Pulmonary hypertension Restless leg syndrome Restless legs Shortness of breath on exertion Toe fracture, left Wears dentures Wears glasses Home Medications amitriptyline 100 mg tablet 100 mg PO QHS mental health 04/09/13 [History Last Taken 05/06/22] aspirin 81 mg tablet,delayed release 81 mg PO DAILY HEART HEALTH 10/25/17 [History Last Taken 05/07/22] atorvastatin 80 mg tablet 80 mg PO DAILY CHOLESTEROL 10/25/17 [History Last Taken 05/07/22] amlodipine 10 mg tablet 10 mg PO DAILY BP 06/01/18 [History Last Taken 05/06/22] doxazosin 8 mg tablet 8 mg PO QHS blood pressure 08/20/18 [History Last Taken 05/06/22] omeprazole 40 mg capsule,delayed release 40 mg PO DAILY gerd 08/20/18 [History Last Taken 05/06/22] hydralazine 100 mg tablet 100 mg PO TID diuretic 01/01/19 [History Last Taken 05/07/22] bumetanide 2 mg tablet 2 mg PO DAILY diuretic 03/14/19 [History Last Taken 05/07/22] carvedilol 6.25 mg tablet 6.25 mg PO BID blood pressure 03/14/19 [History Last Taken 05/07/22] nitroglycerin 0.4 mg sublingual tablet 0.4 mg sublingual Q5M PRN CHEST PAIN 03/14/19 [History Last Taken Unknown] albuterol sulfate 1.25 mg/3 mL solution for nebulization 1.25 mg (3 mL) inhalation 4X/DAY Wheezing #360 mL 08/17/20 [Rx Last Taken 05/06/22] albuterol sulfate 90 mcg/actuation aerosol inhaler (ProAir HFA) 2 puff inhalation Q6H PRN sob 09/30/20 [History Last Taken 05/06/22] ropinirole 0.5 mg tablet 0.5 mg PO QHS 07/07/21 [History Last Taken 05/06/22] isosorbide mononitrate 60 mg tablet,extended release 24 hr 60 mg PO DAILY #90 tabs 12/26/21 [Rx Last Taken 05/07/22] budesonide-formoterol HFA 160 mcg-4.5 mcg/actuation aerosol inhaler (Symbicort) 2 inh inhalation BID breathing #3 ea 03/10/22 [Rx Last Taken 05/06/22] acetaminophen 500 mg tablet (Acetaminophen Extra Strength) 1,000 mg PO DAILY PRN Pain 05/04/22 [History Last Taken Unknown] ascorbic acid (vitamin C) 500 mg tablet 500 mg PO DAILY SUPPLEMENT 05/04/22 [History Last Taken 05/07/22] prednisone 5 mg tablet 5 mg PO DAILY INFLAMMATION 05/04/22 [History Last Taken 05/07/22] sevelamer carbonate 800 mg tablet 800 mg PO TIDCM PHOSPHATE 05/04/22 [History Last Taken 05/06/22] sucralfate 1 gram tablet (Carafate) 1 g PO BID #60 tabs 05/05/22 [Rx Last Taken 05/07/22] Allergy/AdvReac Type Severity Reaction Status Date / Time Penicillins Allergy Hives Verified 05/04/22 10:34 adhesive tape AdvReac Other Verified 05/04/22 10:34 Family History Mother Heart disease Surgical History H/O four vessel coronary artery bypass graft (~04/16/13) Hx of colonoscopy Hx of esophagogastroduodenoscopy Social History household members: family Smoking Status: Former smoker quit date: 03/05/10 alcohol intake: current alcohol intake frequency: other substance use type: does not use ROS ROS Narrative Negative except above Physical Exam Narrative Alert awake oriented x 3 no obvious distress no pallor no icterus no JVD s1s2 no murmurs lungs clear abdomen soft no organomegaly no edema no cyanosis Lab / Micro Data Result Diagrams: 05/08/22 05:15 05/08/22 05:15 Labs: Laboratory Results - last 24 hr 05/07/22 16:00: MRSA (PCR) Negative 05/07/22 21:38: Urine Color Yellow, Urine Clarity Sl. Cloudy, Urine pH 5.0, Ur Specific [place] 1.010, Urine Protein 30 H, Urine Glucose (UA) Normal, Urine Ketones Negative, Urine Occult Blood Negative, Urine Nitrite Negative, Urine Bilirubin 3 H, Urine Urobilinogen 1 H, Ur Leukocyte Esterase 500 H, Urine RBC 0 SEEN, Urine WBC 10-25 SEEN, Ur Squamous Epith Cells 5-10 SEEN, Urine Bacteria 1+, Urine Mucus 0 SEEN 05/08/22 05:15: WBC 13.8 H, RBC 2.95 L, Hgb 8.5 L, Hct 26.4 L, MCV 89.5, MCH 28.8, MCHC 32.2, RDW Std Deviation 56.5 H, RDW Coeff of Becca 17.4 H, Plt Count 286, MPV 9.2, Immature Gran % (Auto) 1.200 H, Neut % (Auto) 85.6 H, Lymph % (Auto) 3.5 L, [place] % (Auto) 8.1, Eos % (Auto) 1.2, Baso % (Auto) 0.4, Absolute Neuts (auto) 11.8 H, Absolute Lymphs (auto) 0.48 L, Nucleated RBC % 0, Polychromasia RARE, Hypochromasia 1+, Anisocytosis 1+ 05/08/22 05:15: Sodium 132 L, Potassium 4.0, Chloride 95 L, Carbon Dioxide 27.0, Anion Gap 10, BUN 42 H, Creatinine 6.34 H, Estim Creat Clear Calc 6.06, Est GFR (MDRD) Af Amer 8 L, Est GFR (MDRD) Non-Af 7 L, BUN/Creatinine Ratio 6.6 L, Glucose 96, Calcium 8.3 L, Phosphorus 3.0, Magnesium 1.6, Total Bilirubin 0.60, AST 16, ALT 9 L, Alkaline Phosphatase 108, Total Protein 6.8, Albumin 2.8 L, Globulin 4.0, Albumin/Globulin Ratio 0.7 L Micro: Microbiology 05/07/22 21:38 Urine, Clean Catch Legionella Antigen - Final 05/07/22 21:38 Urine, Clean Catch Streptococcus pneumoniae Antigen (M - Final 05/07/22 16:05 Interface Orders Respiratory Panel (PCR) - Final 05/07/22 09:56 Nasal Secretion SARS-CoV-2 & FLU Antigen (Rapid) - Final Rhythm Strip Rhythm Strip: Sinus Rhythm Rate: 82 Ectopy: PVC(s) Radiology Impression Abdomen/Pelvis CT 05/07/22 14:35 IMPRESSION: 1. Cirrhosis, portal vein hypertension, chronic subcentimeter central abdominal retroperitoneal lymphadenopathy and mesenteric edema 2. Small amount of pelvic ascites 3. Small fat-containing umbilical hernia 4. Colonic diverticulosis Electronically Signed: Kam Hughes MD at 16:01 EST Reading Location ID and State: [facility] / [place] , Service support ,
--- NOTE | 2022-05-08 14:10 | CASEMGMT ---
RANDY MONTALVO Assessment: Face to Face with pt for initial transition planning/care coordination assessment. RANDY MONTALVO introduced self and role at [facility], pt voices understanding and consents to assessment. Pt is A/O x4 and answers all questions appropriately at this time. Pt lying in bed in no distress receiving dialysis. Care providers, pharmacy, and demographics verified/updated. Admitting Dx: pna PCP:Eitan Specialists:TONI, cardio; Deedee, nephro; Jhon puljanak Preferred [facility]acy: [facility] Insurance: Luz OAKLEY, [facility] Prescription Benefit: yes LNOK: Doris Robertson, dtr; Adilene Trujillo, dtr Living Arrangements: Pt lives with dtr Doris and son in law in a single story home with 4 steps to enter. Pt reports she is mostly I in ADL's. She states her dtr assists her with washing her hair d/t her port and does the cooking. Pt is able to bathe the rest of her body and does her own laundry. Pt denies concerns at home. Transportation: Pt family provides transportation. DME/HHC/SNF: Pt has oxygen through [facility], reports it is 1.5 L cont. Will verify. She does have portable tanks to dc home on. Pt reports she does not have any further DME nor use AD. Pt has had HHC in the past, she is unsure of the name of the agency. Pt denies SNF stays. Pt states no concerns with going home at time of dc. She denies need for any HHC. Pt has dialysis M/W/F through [facility] with a morning chair time. Pt states no further concerns/needs. CM to follow. Advised pt to ask CM if any further question/concerns/needs arise, voices understanding. Pt Goal: Home Plan: Home, follow for increased oxygen needs.
--- NOTE | 2022-05-08 14:24 | PN_ITS ---
Subjective Subjective Patient seen and examined. She had no active complaints. She said she wanted to go home. She denied any fever, chills, cough, chest pain, palpitaitons, dizziness, nausea, vomiting or any other symptoms. Review of systems is otherwise negative. Objective Data Objective Data Vital Signs: Vital Signs Temp Pulse Resp BP Pulse Ox O2 Del Method O2 Flow Rate 99.4 F H 87 20 H 174/72 H 94 Nasal Cannula 4 05/08/22 08:43 05/08/22 09:31 05/08/22 08:43 05/08/22 09:31 05/08/22 08:43 05/08/22 09:32 05/08/22 11:22 Oxygen Flow Rate (L/min) 4 Oxygen Delivery Method Nasal Cannula Weight: 156 lb Body Mass Index (BMI) 28.5 Intake & Output: Intake and Output for Last 24 Hours 05/06/22 05/07/22 05/08/22 23:59 23:59 23:59 Intake Total 150 / 150 250 / 250 Output Total 200 / 200 Balance -50 / -50 250 / 250 Lab / Micro Data Result Diagrams: 05/08/22 05:15 05/08/22 05:15 Labs: Laboratory Results - last 24 hr 05/07/22 16:00: MRSA (PCR) Negative 05/07/22 21:38: Urine Color Yellow, Urine Clarity Sl. Cloudy, Urine pH 5.0, Ur Specific [place] 1.010, Urine Protein 30 H, Urine Glucose (UA) Normal, Urine Ketones Negative, Urine Occult Blood Negative, Urine Nitrite Negative, Urine Bilirubin 3 H, Urine Urobilinogen 1 H, Ur Leukocyte Esterase 500 H, Urine RBC 0 SEEN, Urine WBC 10-25 SEEN, Ur Squamous Epith Cells 5-10 SEEN, Urine Bacteria 1+, Urine Mucus 0 SEEN 05/08/22 05:15: WBC 13.8 H, RBC 2.95 L, Hgb 8.5 L, Hct 26.4 L, MCV 89.5, MCH 28.8, MCHC 32.2, RDW Std Deviation 56.5 H, RDW Coeff of Becca 17.4 H, Plt Count 286, MPV 9.2, Immature Gran % (Auto) 1.200 H, Neut % (Auto) 85.6 H, Lymph % (Auto) 3.5 L, [place] % (Auto) 8.1, Eos % (Auto) 1.2, Baso % (Auto) 0.4, Absolute Neuts (auto) 11.8 H, Absolute Lymphs (auto) 0.48 L, Nucleated RBC % 0, Polychromasia RARE, Hypochromasia 1+, Anisocytosis 1+ 05/08/22 05:15: Sodium 132 L, Potassium 4.0, Chloride 95 L, Carbon Dioxide 27.0, Anion Gap 10, BUN 42 H, Creatinine 6.34 H, Estim Creat Clear Calc 6.06, Est GFR (MDRD) Af Amer 8 L, Est GFR (MDRD) Non-Af 7 L, BUN/Creatinine Ratio 6.6 L, Glucose 96, Calcium 8.3 L, Phosphorus 3.0, Magnesium 1.6, Total Bilirubin 0.60, AST 16, ALT 9 L, Alkaline Phosphatase 108, Total Protein 6.8, Albumin 2.8 L, Globulin 4.0, Albumin/Globulin Ratio 0.7 L Micro: Microbiology 05/07/22 21:38 Urine, Clean Catch Legionella Antigen - Final 05/07/22 21:38 Urine, Clean Catch Streptococcus pneumoniae Antigen (M - Final 05/07/22 16:05 Interface Orders Respiratory Panel (PCR) - Final 05/07/22 09:56 Nasal Secretion SARS-CoV-2 & FLU Antigen (Rapid) - Final Radiography Diagnostic Testing: Radiology Impression Abdomen/Pelvis CT 05/07/22 14:35 IMPRESSION: 1. Cirrhosis, portal vein hypertension, chronic subcentimeter central abdominal retroperitoneal lymphadenopathy and mesenteric edema 2. Small amount of pelvic ascites 3. Small fat-containing umbilical hernia 4. Colonic diverticulosis Electronically Signed: Kam Hughes MD at 16:01 EST Reading Location ID and State: [address] [place] [address] , Service support , Rhythm Strip Rhythm Strip: Sinus Rhythm Rate: 82 Ectopy: PVC(s) Physical Exam Const alert, oriented x3 and no apparent distress General Appearance: cooperative HEENT normocephalic, head/scalp atraumatic and moist oral mucous membranes Eyes PERRL and EOMs intact bilaterally Neck supple Lymph Lymphatic: no lymphedema noted Resp Resp Narrative: mildly diminished breath sounds bibasally, no wheezes or crackles. on 4L of oxygen by nasal canula Cardio regular rate, regular rhythm, S1 normal heart sound, S2 normal heart sound and no murmurs GI normal to inspection, nondistended, normoactive bowel sounds, soft to palpation, non-tender and non-distended Extremity normal capillary refill, no clubbing, cyanosis or edema and no calf tenderness Neuro CN's II-XII intact bilaterally, no focal motor deficits and no sensory deficits noted Coordination / Balance: [id number] test normal Motor Exam: strength 5/5 throughout Assessment & Plan Assessment/Plan (1) Chronic respiratory failure with hypoxia: PLAN: Plan #Hypoxia in the setting of chronic hypoxic resp failure * currenly on 4L of oxygen. Usually wears 1L of oxygen at home * thought to be due to viral pneumonia * respiratory panel was negative. COVID and flu test were negative * on IV levaquin q48 hourly due to concern about pneumonia * Patient is on steroids at home and this was continued. * CTA of the chest showed no PE or arterial dissection but showed mild to moderate segmental atelectasis in the left lung and a small left pleural effusion with mild basilar atelectasis * #Acute metabolic encephalopathy due to hypoxia: resolved. 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 * on IV PPI and carafate * #ESRD: on hemodialysis MWF. Nephrology on board. #COPD: not in exacerbation. Wears 1.5L at home. On oral prednisone. Continue breathing treatments of bronchodilators. #CAD: On aspirin and high intensity statin as well as carvedilol and Imdur #Hypertension: On carvedilol and doxazosin as well as hydralazine. #Type 2 diabetes mellitus: Diet controlled. Insulin sliding scale. Accu-Cheks ACHS. #Restless leg syndrome: On ropinirole DVT prophylaxis: Heparin Charges/Coding Visit Charges Inpatient E&M: 95845 Subs Hosp L2
--- NOTE | 2022-05-08 16:25 | DIALYSIS ---
Hemodialysis x 3hrs today. UF -2000mL removed. Pt stable and tolerated tx. See dialysis flowsheet for details. Report to floor RN, Lissa
[2022-05-08] MEDS: Doxazosin 4 MG Tablet 8 MG PO (21:06)
[2022-05-08] MEDS: Pramipexole Di-HCl 0.25 MG Tablet PO (21:07)
[2022-05-08] MEDS: Atorvastatin Calcium 80 MG Tablet PO (21:07)
[2022-05-08] MEDS: Amitriptyline 100 MG Tablet PO (21:15)
[2022-05-09 02:46] VITALS: BP 147/99; PULSE 82; RESP 18; TEMP 36.8; O2SAT 93
[2022-05-09 05:57] VITALS: BP 143/50; PULSE 87
[2022-05-09] MEDS: hydrALAZINE 50 MG Tablet 100 MG PO (05:57)
[2022-05-09] MEDS: Heparin Injection (Vial) 5,000 UNIT/ML VIAL 5000 UNIT SC (05:57)
[2022-05-09] MEDS: Sucralfate 1 GM Tablet PO (06:01)
[2022-05-09 06:35] VITALS: O2SAT 92
[2022-05-09 06:55] LABS: Absolute Lymphocyte Count 0.34 X10^3/uL (0.83-4.51); Absolute Neutrophil Count 10.5 X10^3/uL (2.0-7.7); Basophil# 0.02 X10^3/uL; Basophil% 0.2 % (0-1); Eosinophil# 0.23 X10^3/uL; Eosinophils% 1.9 % (0-5); Hematocrit 27.2 % (37-47); Hemoglobin 8.5 g/dL (12.0-15.0); Lymphocyte # 0.34 X10^3/ul (0.83-4.51); Lymphocyte % 2.8 % (19-41); Mean Corp Hgb Conc 31.3 g/dL (32-36); Mean Corpuscular Hgb 28.1 pg (27.0-32.0); Mean Corpuscular Volume 90.1 fL (81-99); Mean Platelet Vol. 9.8 fl (6.2-12.0); Monocyte# 0.97 X10^3/uL; Monocyte% 7.9 % (0-10); NRBC Flagged by Analyzer 0 % (0-5); Neutrophil # 10.54 X10^3/uL (2.7-7.7); Neutrophil % 85.9 % (47-70); POSITIVE DIFFERENTIAL YES; Platelet Count 315 K/mm3 (150-450); RBC Distribution Width CV 17.2 % (11.6-14.6); RBC Distribution Width SD 56.7 fl (35.1-43.9); Red Blood Count 3.02 M/mm3 (4.2-5.4); White Blood Count 12.3 K/mm3 (4.4-11.0)
[2022-05-09 06:56] LABS: Differential Indicated SCAN CRITERIA MET
[2022-05-09 07:11] LABS: Differential Comment SCANNED
[2022-05-09 07:24] LABS: Anion Gap 8 (5-15); BUN 29 mg/dL (7-18); BUN/Creat Ratio 6.2 RATIO (10-20); Calcium,Total 8.5 mg/dL (8.5-10.1); Chloride 97 mmol/L (98-107); EST Glomerular Filtration Rate 10 mL/min (>60); Est Glom Filt Rate - Afr Amer 12 mL/min (>60); Estimated Creatinine Clearance 8.18 ml/min; Glucose 106 mg/dL (74-106); Potassium 3.8 mmol/L (3.5-5.1); Sodium Level 135 mmol/L (136-145)
[2022-05-09 07:44] VITALS: BP 151/53; PULSE 81; RESP 20; TEMP 37.1; O2SAT 94
[2022-05-09 08:20] LABS: BNP,B-Type NATRIURETIC PEPTIDE 581.6 pg/mL (0-100)
[2022-05-09] MEDS: predniSONE 5 MG Tablet PO (08:43)
[2022-05-09] MEDS: Aspirin E.C. 81 MG Tablet PO (08:43)
[2022-05-09] MEDS: SEVELAMER CARBONATE 800 MG TABLET PO ×2 (08:43→13:07)
[2022-05-09] MEDS: Ascorbic Acid 500 MG Tablet PO (08:43)
[2022-05-09] MEDS: Bumetanide 2 MG Tablet PO (08:44)
[2022-05-09] MEDS: Isosorbide Mononitrate 60 MG Tablet PO (08:44)
[2022-05-09] MEDS: guaiFENesin 1,200 MG Tablet 1200 MG PO (08:45)
[2022-05-09] MEDS: Pantoprazole Sodium 40 MG Tablet PO (08:45)
[2022-05-09] MEDS: Carvedilol 6.25 MG Tablet PO (08:45)
[2022-05-09] MEDS: amLODIPine 10 MG Tablet PO (08:45)
[2022-05-09] MEDS: 0.9% Saline Lock 10 ML Syringe IV ×2 (08:59→13:07)
[2022-05-09] MEDS: levoFLOXacin IV 500 MG/100 ML BAG 100 MG IV (08:59)
--- NOTE | 2022-05-09 11:09 | PN.RENAL_ITS ---
Subjective Subjective no new events Objective Data Objective Data Vital Signs: Vital Signs Temp Pulse Resp BP Pulse Ox O2 Del Method O2 Flow Rate 98.7 F 81 20 H 151/53 H 94 Nasal Cannula 2.5 05/09/22 07:44 05/09/22 07:44 05/09/22 07:44 05/09/22 07:44 05/09/22 07:44 05/09/22 07:58 05/09/22 07:58 Oxygen Flow Rate (L/min) 2.5 Oxygen Delivery Method Nasal Cannula Weight: 70.76 kg Body Mass Index (BMI) 28.5 Intake & Output: Intake and Output for Last 24 Hours 05/07/22 05/08/22 05/09/22 23:59 23:59 23:59 Intake Total 150 / 150 650 / 650 200 / 200 Output Total 200 / 200 1999 / 1999 Balance -50 / -50 -1350 / -1350 200 / 200 Lab / Micro Data Result Diagrams: 05/09/22 06:25 05/09/22 06:25 Labs: Laboratory Results - last 24 hr 05/09/22 06:25: WBC 12.3 H, RBC 3.02 L, Hgb 8.5 L, Hct 27.2 L, MCV 90.1, MCH 28.1, MCHC 31.3 L, RDW Std Deviation 56.7 H, RDW Coeff of Becca 17.2 H, Plt Count 315, MPV 9.8, Immature Gran % (Auto) 1.300 H, Neut % (Auto) 85.9 H, Lymph % (Auto) 2.8 L, [place] % (Auto) 7.9, Eos % (Auto) 1.9, Baso % (Auto) 0.2, Absolute Neuts (auto) 10.5 H, Absolute Lymphs (auto) 0.34 L, Nucleated RBC % 0, Differential Comment SCANNED 05/09/22 06:25: Sodium 135 L, Potassium 3.8, Chloride 97 L, Carbon Dioxide 30.0, Anion Gap 8, BUN 29 H, Creatinine 4.70 H, Estim Creat Clear Calc 8.18, Est GFR (MDRD) Af Amer 12 L, Est GFR (MDRD) Non-Af 10 L, BUN/Creatinine Ratio 6.2 L, Glucose 106, Calcium 8.5 05/09/22 06:25: B-Natriuretic Peptide 581.6 H Micro: Microbiology 05/07/22 09:53 Blood Culture (Wb) - Venous Blood Culture - Preliminary No growth in 48 hours. 05/07/22 09:57 Blood Culture (Wb) - Anticubital Left Blood Culture - Preliminary No growth in 48 hours. 05/07/22 21:38 Urine Catheter - Catheter Urine Culture - Preliminary Mixed Gram Positive Organisms 05/07/22 21:38 Urine, Clean Catch Legionella Antigen - Final 05/07/22 21:38 Urine, Clean Catch Streptococcus pneumoniae Antigen (M - Final 05/07/22 16:05 Interface Orders Respiratory Panel (PCR) - Final 05/07/22 09:56 Nasal Secretion SARS-CoV-2 & FLU Antigen (Rapid) - Final Rhythm Strip Rhythm Strip: Sinus Rhythm Rate: 82 Ectopy: PVC(s) Physical Exam Narrative Alert awake oriented x 3 no obvious distress no pallor no icterus no JVD s1s2 no murmurs lungs clear abdomen soft no organomegaly no edema no cyanosis Assessment & Plan Assessment/Plan (1) ESRD on dialysis: PLAN: ESRD. HD MWF schedule Anemia. Suspected GI bleed. Had GI work-up last week. Hemoglobin is stable. She gets long-acting erythropoietin with dialysis. Pneumonia. management as per primary
[2022-05-09 11:14] VITALS: O2SAT 86; O2SAT 89; O2SAT 91
--- NOTE | 2022-05-09 11:50 | DS.PCM_ITS ---
Providers Date of Admission: 05/07/22 Date of Discharge: 05/09/22 Primary Care Physician: Dr. Levi Laird MD Consultations 05/07/22 14:35 Consult: Nephrology Routine Consulting Provider: Evert Waite Reason for Consult: ESRD-HD dependent (PKTY) EMERGENT Consult: No MD Notified: Yes Date Notified: 05/07/22 Time Notified: 16:02 Method of Notification: Answering Service Reason For Visit: PNEUMONIA Diagnosis Discharge Diagnosis (1) ESRD on dialysis: Status: Acute Code(s): N18.6 - End stage renal disease; Z99.2 - Dependence on renal dialysis Plan #Hypoxia in the setting of chronic hypoxic resp failure * currenly on 4L of oxygen. Usually wears 1L of oxygen at home * thought to be due to viral pneumonia * respiratory panel was negative. COVID and flu test were negative * on IV levaquin q48 hourly due to concern about pneumonia * Patient is on steroids at home and this was continued. * CTA of the chest showed no PE or arterial dissection but showed mild to moderate segmental atelectasis in the left lung and a small left pleural effusion with mild basilar atelectasis * #Acute metabolic encephalopathy due to hypoxia: resolved. Now alert and o riented and able to communicate #Recent GI bleed * Was recently admitted on account of GI bleed and had EGD which showed grade 1 varices in the upper third of the esophagus and an oozing cratered gastric ulcer with visible vessel for which she had coagulation with hemostatic clip being placed. * on IV PPI and carafate * #ESRD: on hemodialysis MWF. Nephrology on board. #COPD: not in exacerbation. Wears 1.5L at home. On oral prednisone. Continue breathing treatments of bronchodilators. #CAD: On aspirin and high intensity statin as well as carvedilol and Imdur #Hypertension: On carvedilol and doxazosin as well as hydralazine. #Type 2 diabetes mellitus: Diet controlled. Insulin sliding scale. Accu-Cheks ACHS. #Restless leg syndrome: On ropinirole DVT prophylaxis: Heparin Medications at Discharge Home Medications amitriptyline 100 mg tablet 100 mg PO QHS mental health 04/09/13 aspirin 81 mg tablet,delayed release 81 mg PO DAILY HEART HEALTH 10/25/17 atorvastatin 80 mg tablet 80 mg PO DAILY CHOLESTEROL 10/25/17 amlodipine 10 mg tablet 10 mg PO DAILY BP 06/01/18 doxazosin 8 mg tablet 8 mg PO QHS blood pressure 08/20/18 omeprazole 40 mg capsule,delayed release 40 mg PO DAILY gerd 08/20/18 hydralazine 100 mg tablet 100 mg PO TID diuretic 01/01/19 bumetanide 2 mg tablet 2 mg PO DAILY diuretic 03/14/19 carvedilol 6.25 mg tablet 6.25 mg PO BID blood pressure 03/14/19 nitroglycerin 0.4 mg sublingual tablet 0.4 mg sublingual Q5M PRN CHEST PAIN 03/14/19 albuterol sulfate 1.25 mg/3 mL solution for nebulization 1.25 mg (3 mL) inhalation 4X/DAY Wheezing #360 mL 08/17/20 albuterol sulfate 90 mcg/actuation aerosol inhaler (ProAir HFA) 2 puff inhalation Q6H PRN sob 09/30/20 ropinirole 0.5 mg tablet 0.5 mg PO QHS 07/07/21 isosorbide mononitrate 60 mg tablet,extended release 24 hr 60 mg PO DAILY #90 tabs 12/26/21 budesonide-formoterol HFA 160 mcg-4.5 mcg/actuation aerosol inhaler (Symbicort) 2 inh inhalation BID breathing #3 ea 03/10/22 acetaminophen 500 mg tablet (Acetaminophen Extra Strength) 1,000 mg PO DAILY PRN Pain 05/04/22 ascorbic acid (vitamin C) 500 mg tablet 500 mg PO DAILY SUPPLEMENT 05/04/22 prednisone 5 mg tablet 5 mg PO DAILY INFLAMMATION 05/04/22 sevelamer carbonate 800 mg tablet 800 mg PO TIDCM PHOSPHATE 05/04/22 sucralfate 1 gram tablet (Carafate) 1 g PO BID #60 tabs 05/05/22 levofloxacin 500 mg tablet 500 mg PO Q48H #4 tabs 05/09/22 Hospital Course Operations None Procedures None Summary of Care Provided Minutes Spent on Discharge: 45 Hospital Course: Patient is a 76-year-old female with past medical history as outlined who was admitted through the ED on 05/07/2022 with a complaint of cough and shortness of breath. She had been admitted from 05/04/2022 through 05/05/2022 with a complaint of GI bleed was subsequently discharged home. When she got home started having a cough and got progressively more short of breath. Of note she was transfused on 05/04/2022 due to the GI bleed but had symptoms were not thought to be due to a transfusion related reaction. On admission she was saturating at 93% on 2 L of oxygen though this had to be bumped up to 3 L of oxygen. EKG showed no acute ST changes and CT of the chest showed no evidence of PE but showed mild to moderate subsegmental atelectasis at the bilateral bases with small bilateral pleural effusions as well as mild to moderate groundglass appearances in both lungs and cystic emphysematous changes in both lungs predominantly in the upper lobes. She was started on Levaquin for presumed pneumonia and admitted to be managed for hypoxia due to pneumonia. Nephrology was also consulted on account of ESRD with a needing dialysis. She was placed on IV Levaquin every 48 hours. His shortness of breath gradually improved and she felt much better. Her CT of the abdomen did show evidence of cirrhosis and esophageal varices and she had recently had EGD unit previous admission which showed grade 1 esophageal varices as well as oozing cratered gastric ulcer with visible vessel for which she had coagulation with hemostatic clip placed. Patient's breathing improved and she felt better. She was discharged on 05/09/2022 after she had a walking pulse ox which showed that she required 2 L of oxygen with walking. Patient was actually on 3 L of oxygen at home but says she had been using 1.5 to 2 L of oxygen at home. She was discharged on 05/09/2022 and is to follow-up with her primary care doctor within 1 to 2 weeks. She was discharged with a prescription for p.o. Levaquin 500 mg every 48 hours for 4 tabs. Patient seen and examined prior to discharge. She had no complaints and felt well. She had an uneventful night and review of systems otherwise negative. Labs and vitals reviewed. Home medication reviewed and reconciled. Physical Exam Const alert, oriented x3, no apparent distress and well nourished General Appearance: cooperative, comfortable and well kempt Orientation / Consciousness: awake Exam Limitations: no limitations HEENT normocephalic, head/scalp atraumatic, hearing grossly normal bilaterally and moist oral mucous membranes Mouth: oral and palatal mucosa normal Eyes PERRL and EOMs intact bilaterally Neck no lymphadenopathy and supple Lymph Lymphatic: no lymphadenopathy noted and no lymphedema noted Resp no retractions and no use of accessory muscles Resp Narrative: mildly diminished breath sounds bibasally, no wheezes or crackles. on 2L of oxygen by nasal canula Auscultation: rhonchi and wheezes; Negative for rales Cardio regular rate, regular rhythm, S1 normal heart sound, S2 normal heart sound, no rub, no gallops and no clicks Cardio Narrative: 3 out of 6 systolic murmur with a soft S2 GI normal to inspection, nondistended, normoactive bowel sounds, soft to palpation, non-tender and non-distended Extremity normal to inspection, full ROM, normal capillary refill, no clubbing, cyanosis or edema and no calf tenderness Skin no rashes or lesions noted Neuro No oriented x3, CN's II-XII intact bilaterally, moves all extremities, no focal motor deficits and no sensory deficits noted Coordination / Balance: [id number] test normal Motor Exam: strength 5/5 throughout Weight / BMI Weight Weight: 156 lb Body Mass Index (BMI) 28.5 ABG / Lab / Microbiology Data Result Diagrams: 05/09/22 06:25 05/09/22 06:25 Laboratory: Laboratory Results - last 24 hr 05/09/22 06:25: WBC 12.3 H, RBC 3.02 L, Hgb 8.5 L, Hct 27.2 L, MCV 90.1, MCH 28.1, MCHC 31.3 L, RDW Std Deviation 56.7 H, RDW Coeff of Becca 17.2 H, Plt Count 315, MPV 9.8, Immature Gran % (Auto) 1.300 H, Neut % (Auto) 85.9 H, Lymph % ( Auto) 2.8 L, Lander % (Auto) 7.9, Eos % (Auto) 1.9, Baso % (Auto) 0.2, Absolute Neuts (auto) 10.5 H, Absolute Lymphs (auto) 0.34 L, Nucleated RBC % 0, Differential Comment SCANNED 05/09/22 06:25: Sodium 135 L, Potassium 3.8, Chloride 97 L, Carbon Dioxide 30.0, Anion Gap 8, BUN 29 H, Creatinine 4.70 H, Estim Creat Clear Calc 8.18, Est GFR (MDRD) Af Amer 12 L, Est GFR (MDRD) Non-Af 10 L, BUN/Creatinine Ratio 6.2 L, Glucose 106, Calcium 8.5 05/09/22 06:25: B-Natriuretic Peptide 581.6 H Microbiology: Microbiology 05/07/22 09:53 Blood Culture (Wb) - Venous Blood Culture - Preliminary No growth in 48 hours. 05/07/22 09:57 Blood Culture (Wb) - Anticubital Left Blood Culture - Preliminary No growth in 48 hours. 05/07/22 21:38 Urine Catheter - Catheter Urine Culture - Preliminary Mixed Gram Positive Organisms 05/07/22 21:38 Urine, Clean Catch Legionella Antigen - Final 05/07/22 21:38 Urine, Clean Catch Streptococcus pneumoniae Antigen (M - Final 05/07/22 16:05 Interface Orders Respiratory Panel (PCR) - Final 05/07/22 09:56 Nasal Secretion SARS-CoV-2 & FLU Antigen (Rapid) - Final D/C Instructions Discharge Diet: Low fat / Low cholesterol Discharge Activity: Return to Normal Activity Weight Bearing Status: Weight bearing as tolerated Call your doctor if you observe: Fever of 101 or Higher, Shortness of breath, Dizziness, Swelling in the ankles, Chest pain and Increased palpitations (irregu lar heartbeat) Meaningful Use Info Meaningful Use Diagnoses (Choose all that apply): None applicable Discharge Plan Admission Admit Date/Time: 05/07/22 13:41 Primary Reason for Your Visit: pneumonia Attending Provider: Jo Ken Primary Care Provider: Levi Laird Consulting Providers: Evert Waite ; Sarah Hillman Instructions Patient Instructions: ED Pneumonia (Adult) Additional Instructions / Restrictions: use oxygen 3L as prescribed at home for shortness of breath as needed Discharge Orders/Prescriptions Prescriptions: New levofloxacin 500 mg tablet 500 mg PO Q48H Qty: 4 0RF Continued albuterol sulfate [ProAir HFA] 90 mcg/actuation HFA aerosol inhaler 2 puff inhalation Q6H PRN (Reason: sob) ropinirole 0.5 mg tablet 0.5 mg PO QHS Label Comments: TAKE 1 TABLET BY MOUTH ONCE DAILY budesonide-formoterol [Symbicort] 160-4.5 mcg/actuation HFA aerosol inhaler 2 inh INHALATION BID Qty: 3 3RF Rx Instructions: administer with spacer, rinse mouth after each use amitriptyline 100 MG tablet 100 mg PO QHS Label Comments: MENTAL HEALTH atorvastatin 80 MG tablet 80 mg PO DAILY Label Comments: aspirin 81 MG tablet 81 mg PO DAILY Hold Instructions: Resume on 03/20/21. amlodipine 10 MG tablet 10 mg PO DAILY omeprazole 40 MG capsule,delayed release(DR/EC) 40 mg PO DAILY Hold Instructions: Resume on 05/08/21. doxazosin 8 MG tablet 8 mg PO QHS hydralazine 100 mg tablet 100 mg PO TID nitroglycerin 0.4 MG tablet, sublingual 0.4 mg SL Q5M PRN (Reason: CHEST PAIN) carvedilol 6.25 MG tablet 6.25 mg PO BID bumetanide 2 MG tablet 2 mg PO DAILY prednisone 5 mg tablet 5 mg PO DAILY acetaminophen [Acetaminophen Extra Strength] 500 mg Tablet 1,000 mg PO DAILY PRN (Reason: Pain) sevelamer carbonate 800 mg tablet 800 mg PO TIDCM ascorbic acid (vitamin C) 500 MG tablet 500 mg PO DAILY sucralfate [Carafate] 1 gram tablet 1 g PO BID Qty: 60 0RF albuterol sulfate 1.25 mg/3 mL solution for nebulization 1.25 mg INHALATION 4X/DAY Qty: 360 6RF isosorbide mononitrate 60 mg tablet extended release 24 hr 60 mg PO DAILY Qty: 90 3RF Referrals / Follow Up: Evert Waite MD [Med Staff - Consulting] - Within 2 Weeks Levi Laird MD [Primary Care Provider] - 05/12/22 2:20 pm Disposition Disposition (needs filled in before D/C Order can be placed): Home, Self Care Charges/Coding Visit Charges Inpatient E&M: 32616 Disch Hosp >30min
[2022-05-09 13:03] VITALS: BP 147/60; PULSE 74; RESP 18; TEMP 36.5; O2SAT 94
== END 2022-05-09 13:58 | disposition home or self-care (01) | DRG 193 ==
LOC: ED 13:18 → MS3 14:05
PROVIDERS: Admitting Provider Internal Medicine; Emergency Provider Emergency Medicine; PCP Family Medicine; Visit Provider Student in an Organized Health Care Education/Training Program
DX: J12.9 Viral pneumonia, unspecified (principal); K25.4 Chronic or unspecified gastric ulcer with hemorrhage; G93.41 Metabolic encephalopathy; N18.6 End stage renal disease; I13.2 Hypertensive heart and chronic kidney disease with heart failure and with stage 5 chronic kidney disease, or end stage renal disease; I85.00 Esophageal varices without bleeding; J44.0 Chronic obstructive pulmonary disease with (acute) lower respiratory infection; E87.1 Hypo-osmolality and hyponatremia; J96.11 Chronic respiratory failure with hypoxia; I50.32 Chronic diastolic (congestive) heart failure; E11.22 Type 2 diabetes mellitus with diabetic chronic kidney disease; Z99.2 Dependence on renal dialysis; K74.60 Unspecified cirrhosis of liver; D64.9 Anemia, unspecified; I25.10 Atherosclerotic heart disease of native coronary artery without angina pectoris; G25.81 Restless legs syndrome; E78.5 Hyperlipidemia, unspecified; I08.0 Rheumatic disorders of both mitral and aortic valves; Z79.51 Long term (current) use of inhaled steroids; Z79.52 Long term (current) use of systemic steroids; Z79.82 Long term (current) use of aspirin; Z87.891 Personal history of nicotine dependence
CPT/HCPCS: 36415; 36430; 36600; 71045; 71275; 74176; 80048; 80053; 81001; 82550; 82803; 83036; 83605; 83735; 83880; 84100; 85025; 85610; 85730; 86850; 86900; 86901; 86920; 87040; 87077; 87086; 87088; 87186; 87428; 87449; 87633; 87641; 90471; 90937; 93005; 94640; 94668; 96365; 96366; 96376; 97162; 97165; 99252; 99285; J7030; J7040; J7050; P9016; Q9967; A4216; G0257; G0463; J2405; J3490

== ENCOUNTER 2022-05-14 15:10 | Inpatient (IN) | payer MEDICARE, MEDICAID, SELFPAY ==
[2022-05-14] VITALS (10 sets, daily range): BP systolic 111–153; BP diastolic 44–59; PULSE 76–88; RESP 18–22; TEMP 36.4–36.9; O2SAT 89–96; BMI 25.2; BMI 28.5
--- NOTE | 2022-05-14 15:28 | EKG12_ITS ---
Test Reason : Blood Pressure : / mmHG Vent. Rate : 078 BPM Atrial Rate : 078 BPM P-R Int : 178 ms QRS Dur : 108 ms QT Int : 424 ms P-R-T Axes : 028 025 068 degrees QTc Int : 483 ms Sinus rhythm with Premature atrial complexes Possible Left atrial enlargement Minimal voltage criteria for LVH, may be normal variant ( [place] product ) Nonspecific ST and T wave abnormality Prolonged QT Abnormal ECG Confirmed by CHAITANYA DOVE, CARLOS ENRIQUE ([id number]), medical transcription editor DENVER KRAUSE ([id number]) on 05/15/2022 1:56:20 PM Referred By: HAILEY Confirmed By:CARLOS ENRIQUE TAVARES MD
[2022-05-14] MEDS: Albuterol 2.5 MG/3 ML VIAL.NEB. INHALATION ×3 (15:46)
[2022-05-14] MEDS: Ipratropium/Albuterol Sulfate 3 ML AMPUL.NEB INHALATION ×2 (15:46→23:35)
[2022-05-14] MEDS: MethylPREDNISolone 125 MG/2 ML Vial 60 MG IV (15:48)
--- NOTE | 2022-05-14 15:51 | ED.VIS.DYS ---
HPI History of Present Illness Chief Complaint: Shortness of Breath Detail of Chief Complaint: Dyspnea and recently diagnosed with pneumonia Informant: patient and spouse/S.O. Onset/Context/Timing Onset: Days Context: sudden Timing: Continuous and Waxes and wanes Quality: Positive for Dyspnea on exertion and Wheezing; Negative for Orthopnea or PND Current Severity: Mild Maximum Severity: Severe Worsened by: Exertion and Coughing Relieved by: Nothing Associated Symptoms cough, fever and yellow sputum; Negative for rhinorrhea, post nasal drip, ear pain, sore throat, subjective, chills, sweats, clear sputum or white sputum Chest Pain: Positive for None Narrative Narrative: Patient is a 76-year-old woman with history of COPD who is oxygen dependent at 1.5 L. Pulse ox was noted to be 89% on 3.5 L. She presents because she has not gotten better. She was recently admitted on May 04 for GI bleed with a hemoglobin of 6. She had intermittent black stools with no hematemesis. She was found to have multiple AVMs as well as a dieulafoy lesion found on her previous EGD. She apparently also had esophageal varices. She required transfusion. She was discharged to home. She was admitted this past May 07 for pneumonia. She was discharged to home SundayMay 09. The records for that admission were reviewed. Patient was discharged to home on levofloxacin 500 mg. She was seen by nephrology during her hospital stay. She had hypoxia that was worse, acute on chronic respiratory failure. She required 4 L of oxygen at that time. Patient presents today because of Tmax of 102.0 ?F. Dyspnea at rest, dyspnea with minimal activity and requiring more oxygen been baseline. She denies headache, visual, ocular auditory symptoms. She denies rhinorrhea or congestion. She denies sore throat. She denies chest discomfort. She does endorse cough that is productive. She denies leg pain, swelling discoloration. She denies GI symptoms. She denies urologic symptoms. PE Risk Factors: Positive for Recent immobilization; Negative for Cancer, OCP + Smoking + > 35, Prior DVT or PE, Recent surgery or Recent travel Prior similar symptoms: Yes (Pneumonia) Recent Illness/Hospitalization: Yes [facility] [place] Medical History (HFpEF) heart failure with preserved ejection fraction Accidental fall Anxiety Arthritis Atherosclerotic heart disease of [place] coronary artery without angina pectoris CAD (coronary artery disease) Chronic diastolic heart failure Chronic hyponatremia COPD (chronic obstructive pulmonary disease) Diabetes mellitus type 2 in obese Dyslipidemia Easy bruising ESRD (end stage renal disease) on dialysis Essential hypertension History of blood transfusion History of renal dialysis Leg cramps Morbid obesity with BMI of 40.0-44.9, adult Non-rheumatic mitral regurgitation Non-rheumatic tricuspid valve insufficiency On home oxygen therapy Pulmonary hypertension Restless leg syndrome Restless legs Shortness of breath on exertion Toe fracture, left Wears dentures Wears glasses Home Medications amitriptyline 100 mg tablet 100 mg PO QHS mental health 04/09/13 [History Last Taken 05/06/22] aspirin 81 mg tablet,delayed release 81 mg PO DAILY HEART HEALTH 10/25/17 [History Last Taken 05/07/22] atorvastatin 80 mg tablet 80 mg PO DAILY CHOLESTEROL 10/25/17 [History Last Taken 05/07/22] amlodipine 10 mg tablet 10 mg PO DAILY BP 06/01/18 [History Last Taken 05/06/22] doxazosin 8 mg tablet 8 mg PO QHS blood pressure 08/20/18 [History Last Taken 05/06/22] omeprazole 40 mg capsule,delayed release 40 mg PO DAILY gerd 08/20/18 [History Last Taken 05/06/22] hydralazine 100 mg tablet 100 mg PO TID diuretic 01/01/19 [History Last Taken 05/07/22] bumetanide 2 mg tablet 2 mg PO DAILY diuretic 03/14/19 [History Last Taken 05/07/22] carvedilol 6.25 mg tablet 6.25 mg PO BID blood pressure 03/14/19 [History Last Taken 05/07/22] nitroglycerin 0.4 mg sublingual tablet 0.4 mg sublingual Q5M PRN CHEST PAIN 03/14/19 [History Last Taken Unknown] albuterol sulfate 1.25 mg/3 mL solution for nebulization 1.25 mg (3 mL) inhalation 4X/DAY Wheezing #360 mL 08/17/20 [Rx Last Taken 05/06/22] albuterol sulfate 90 mcg/actuation aerosol inhaler (ProAir HFA) 2 puff inhalation Q6H PRN sob 09/30/20 [History Last Taken 05/06/22] ropinirole 0.5 mg tablet 0.5 mg PO QHS 07/07/21 [History Last Taken 05/06/22] isosorbide mononitrate 60 mg tablet,extended release 24 hr 60 mg PO DAILY #90 tabs 12/26/21 [Rx Last Taken 05/07/22] budesonide-formoterol HFA 160 mcg-4.5 mcg/actuation aerosol inhaler (Symbicort) 2 inh inhalation BID breathing #3 ea 03/10/22 [Rx Last Taken 05/06/22] acetaminophen 500 mg tablet (Acetaminophen Extra Strength) 1,000 mg PO DAILY PRN Pain 05/04/22 [History Last Taken Unknown] ascorbic acid (vitamin C) 500 mg tablet 500 mg PO DAILY SUPPLEMENT 05/04/22 [History Last Taken 05/07/22] prednisone 5 mg tablet 5 mg PO DAILY INFLAMMATION 05/04/22 [History Last Taken 05/07/22] sevelamer carbonate 800 mg tablet 800 mg PO TIDCM PHOSPHATE 05/04/22 [History Last Taken 05/06/22] sucralfate 1 gram tablet (Carafate) 1 g PO BID #60 tabs 05/05/22 [Rx Last Taken 05/07/22] levofloxacin 500 mg tablet 500 mg PO Q48H #4 tabs 05/09/22 [Rx Last Taken Unknown] Allergy/AdvReac Type Severity Reaction Status Date / Time Penicillins Allergy Hives Verified 05/14/22 15:13 adhesive tape AdvReac Other Verified 05/14/22 15:13 Family History Mother Heart disease Surgical History H/O four vessel coronary artery bypass graft (~04/16/13) Hx of colonoscopy Hx of esophagogastroduodenoscopy Social History household members: family Smoking Status: Former smoker quit date: 03/05/10 alcohol intake: current alcohol intake frequency: other substance use type: does not use ROS ROS ED Constitutional Constitutional ED: Reports chills and fever(s); Denies sweats or weight loss Eyes Eyes: Denies blurry vision, change in vision or diplopia ENT ENT ED: Denies ear pain, rhinorrhea or sore throat Cardiovascular Cardiovascular: Denies chest pain, orthopnea, palpitations, paroxysmal nocturnal dyspnea or racing heartbeat Respiratory/Chest Respiratory/Chest: Reports cough, dyspnea and dyspnea on exertion; Denies orthopnea or paroxysmal nocturnal dyspnea Gastrointestinal Gastrointestinal: Denies abdominal pain, constipation, diarrhea, melena, nausea or vomiting Genitourinary Genitourinary ED: Denies dysuria, hematuria or urinary frequency Musculoskeletal Musculoskeletal: Denies arthralgias, back pain, myalgias or neck pain Integumentary Denies Abrasions or rash Neurologic Neurologic: Reports weakness; Denies headache(s) or paresthesias Psychiatric Psychiatric: Denies anxiety or depression Hematologic/Lymphatic Hematologic/Lymphatic: Denies easy bleeding or easy bruising EXAM Physical Exam Const Vital Signs: 05/14/22 15:11 05/14/22 15:40 05/14/22 15:40 Temperature 98.4 F Temperature Source Temporal Pulse Rate 83 Respiratory Rate 22 H Respiratory Effort Short of Breath Labored Respiratory Depth Normal Respiratory Pattern Normal Blood Pressure 153/57 H Blood Pressure Mean 89 Pulse Ox 89 94 Oxygen Delivery Method Nasal Cannula Nasal Cannula Oxygen Flow Rate (L/min) 3 1.5 1.5 Fraction of Inspired Oxygen (FIO2) 05/14/22 16:42 05/14/22 16:48 Temperature 97.5 F L Temperature Source Temporal Pulse Rate 76 Respiratory Rate 18 Respiratory Effort Respiratory Depth Respiratory Pattern Blood Pressure 111/44 L Blood Pressure Mean 66 Pulse Ox 89 93 Oxygen Delivery Method Nasal Cannula Nasal Cannula Oxygen Flow Rate (L/min) 1 3 Fraction of Inspired Oxygen (FIO2) 1.5 Positive well nourished and well developed Constitutional Narrative: Patient is tachypneic at rest with use of accessory muscles. He has increased shortness of breath with conversation. General Appearance ED: well developed and pallor; Negative for NAD HEENT Reports dry mucous membranes HEENT Narrative: Head is atraumatic normocephalic. Ears are normal. Nares is patent. Posterior pharynx out erythema or exudate. Mouth ED: Yes dry mucous membranes Mouth: dry mucous membranes Eyes PERRL and EOMs intact bilaterally General Eye ED: Yes pale conjunctiva; Negative for scleral icterus Neck no lymphadenopathy, supple and no meningeal signs Neck Narrative: Trachea is midline. There is no inspiratory expiratory stridor. Resp No normal respiratory effort and No clear to auscultation bilaterally Effort and Inspection: Negative for pain with movement Auscultation: rales left base, wheezes expiratory wheezes and throughout and diminished lung sounds bilateral throughout Cardio regular rate, regular rhythm, S1 normal heart sound and S2 normal heart sound; Negative for no murmurs Cardio Narrative: Patient does have a murmur. Patient states she has a known murmur. GI non-tender, non-distended and no masses Auscultation: normoactive bowel sounds Back/Spine no CVA tenderness and normal to inspection Extremity normal to inspection General Extremety ED: Negative for edema or tenderness General Extremity: Negative for edema Neuro oriented x3, CN's II-XII intact bilaterally and no sensory deficits noted Justin Coma Scale: document GCS findings Spontaneous Obeys Commands Oriented 15 Sensorium / Orientation: alert Psych Mood & Affect: depressed Skin no wounds and No skin turgor normal General Skin Exam: pallor; Negative for jaundice Lesions: no lesions Rashes: no rashes MDM MDM MDM Narrative Medical decision making narrative: With patient having fever increased oxygen demand sepsis work-up was undertaken. She may be a failed outpatient therapy. Because of her wheezing history of smoking/COPD she was treated with DuoNeb, albuterol and Solu-Medrol. VBG was obtained to assess acid-base status and CO2 to evaluate for retention. CBC to assess white count and with recent GI bleed to determine if there is been a drop in her H&H. Electrolyte panel was obtained. Obtain lactate as well because of concern for possible sepsis. Differential would be exacerbated COPD due to pneumonia, worsening pneumonia, doubt pulm embolus as this has been gradual and patient had a documented temperature of 102.0 ?F at home. This is unusual for PE. History & Record Review Discussion w/independent historian: Patient and Significant other Additional record(s) reviewed:: Prior inpatient record, Prior outpatient record, Prior ED visit and Prior labs Lab Data Attestation: I reviewed the patient's lab results. Lab results narrative: White count is elevated. Patient is anemic with an H&H of 7.8 and 25.6. There is a slight shift with no bands Rosemarie. BUN and creatinine are elevated from baseline at 39 and 5.54. Lactate is normal. Alkaline phosphatase is slightly elevated at 120. Albumin is slightly decreased at 2.7. Suspect patient's BUN and creatinine are elevated from baseline because she is end-stage renal disease on hemodialysis and due for dialysis tomorrow. Hemoglobin is dropped 1 g from 1 week ago. Patient has been typed and screened Labs: Laboratory Results - last 24 hr 05/14/22 05/14/22 05/14/22 15:47 15:47 15:47 WBC 12.9 H RBC 2.84 L Hgb 7.8 L Hct 25.6 L MCV 90.1 MCH 27.5 MCHC 30.5 L RDW Std Deviation 57.8 H RDW Coeff of Becca 17.5 H Plt Count 356 MPV 9.3 Immature Gran % (Auto) 1.900 H Neut % (Auto) 85.4 H Lymph % (Auto) 2.9 L [place] % (Auto) 7.3 Eos % (Auto) 2.2 Baso % (Auto) 0.3 Absolute Neuts (auto) 11.0 H Absolute Lymphs (auto) 0.38 L Nucleated RBC % 0 Differential Comment SCANNED Sodium 138 Potassium 3.6 Chloride 100 Carbon Dioxide 28.0 Anion Gap 10 BUN 39 H Creatinine 5.54 H Est GFR (MDRD) Af Amer 10 L Est GFR (MDRD) Non-Af 8 L BUN/Creatinine Ratio 7.0 L Glucose 105 Lactic Acid 1.2 Calcium 8.4 L Total Bilirubin 0.70 AST 15 ALT 10 L Alkaline Phosphatase 120 H Total Protein 7.1 Albumin 2.7 L Globulin 4.4 H Albumin/Globulin Ratio 0.6 L Radiography Chest X-Ray - ED: 2 View and Read by ED Physician (Compared to prior film there is no infiltrate. There is a small pleural effusion noted. Cardiac silhouette and size unremarkable. Perihilar region unremarkable. Patient does have a Vas-Cath noted.) Diagnostic Testing: Clinical Impression(s) from Imaging Studies Chest X-Ray 05/14/22 16:52 IMPRESSION: Small pleural effusions without pulmonary infiltrate. Electronically Signed: Jaden Suh DO at 17:07 EDT Reading Location ID and State: [address] [place] [address] Tel [phone], Service support , EKG Initial EKG: Attestation: I personally reviewed and interpreted this EKG as follows: Interpretation: Sinus Rhythm (Rate is 78. There are premature atrial beats noted. SC interval is 170 ms. QS duration 100 ms. QT duration 424 ms. [place] is normal. There is nonspecific changes noted. We will need to compare to prior. Patient does have evidence of LVH by voltage criteria. The acute ANUJ duration is prolonged) Treatment and Re-Evaluation :: Patient was read at 1722. Patient is still tachypneic. Patient still has wheezing. She is not requiring as much oxygen. The infiltrate has resolved. There is a small effusion noted on the chest x-ray. Since patient is still wheezing tachypneic will contact hospitalist for admission. Her dyspnea may be worse because of the 1 g drop in her hemoglobin. As previously noted she was admitted on May 04 for GI bleed that revealed multiple abnormalities. Discharge Plan Triage Chief Complaint: Shortness of Breath ED Provider: Junior Longoria Dx/Rx/DC Orders Clinical Impression: Acute exacerbation of chronic obstructive pulmonary disease, Acute on chronic respiratory failure with hypoxia, Atherosclerotic heart disease of [place] coronary artery without angina pectoris, Dyslipidemia, Anemia, unspecified, Fever, Acute bronchospasm, End-stage renal disease on hemodialysis, Pleural effusion Prescriptions: No Action albuterol sulfate [ProAir HFA] 90 mcg/actuation HFA aerosol inhaler 2 puff inhalation Q6H PRN (Reason: sob) ropinirole 0.5 mg tablet 0.5 mg PO QHS Label Comments: TAKE 1 TABLET BY MOUTH ONCE DAILY budesonide-formoterol [Symbicort] 160-4.5 mcg/actuation HFA aerosol inhaler 2 inh INHALATION BID Qty: 3 3RF Rx Instructions: administer with spacer, rinse mouth after each use amitriptyline 100 MG tablet 100 mg PO QHS Label Comments: MENTAL HEALTH atorvastatin 80 MG tablet 80 mg PO DAILY Label Comments: aspirin 81 MG tablet 81 mg PO DAILY Hold Instructions: Resume on 03/20/21. amlodipine 10 MG tablet 10 mg PO DAILY omeprazole 40 MG capsule,delayed release(DR/EC) 40 mg PO DAILY Hold Instructions: Resume on 05/08/21. doxazosin 8 MG tablet 8 mg PO QHS hydralazine 100 mg tablet 100 mg PO TID nitroglycerin 0.4 MG tablet, sublingual 0.4 mg SL Q5M PRN (Reason: CHEST PAIN) carvedilol 6.25 MG tablet 6.25 mg PO BID bumetanide 2 MG tablet 2 mg PO DAILY prednisone 5 mg tablet 5 mg PO DAILY acetaminophen [Acetaminophen Extra Strength] 500 mg Tablet 1,000 mg PO DAILY PRN (Reason: Pain) sevelamer carbonate 800 mg tablet 800 mg PO TIDCM ascorbic acid (vitamin C) 500 MG tablet 500 mg PO DAILY sucralfate [Carafate] 1 gram tablet 1 g PO BID Qty: 60 0RF levofloxacin 500 mg tablet 500 mg PO Q48H Qty: 4 0RF albuterol sulfate 1.25 mg/3 mL solution for nebulization 1.25 mg INHALATION 4X/DAY Qty: 360 6RF isosorbide mononitrate 60 mg tablet extended release 24 hr 60 mg PO DAILY Qty: 90 3RF Primary Care Provider: Levi Laird Referrals: Levi Laird MD [Primary Care Provider] - Disposition Disposition: Acute Care Hospital [facility]
[2022-05-14 15:58] LABS: Absolute Lymphocyte Count 0.38 X10^3/uL (0.83-4.51); Basophil# 0.04 X10^3/uL; Basophil% 0.3 % (0-1); Eosinophil# 0.28 X10^3/uL; Eosinophils% 2.2 % (0-5); Hematocrit 25.6 % (37-47); Hemoglobin 7.8 g/dL (12.0-15.0); Lymphocyte # 0.38 X10^3/ul (0.83-4.51); Lymphocyte % 2.9 % (19-41); Mean Corp Hgb Conc 30.5 g/dL (32-36); Mean Corpuscular Hgb 27.5 pg (27.0-32.0); Mean Corpuscular Volume 90.1 fL (81-99); Mean Platelet Vol. 9.3 fl (6.2-12.0); Monocyte# 0.94 X10^3/uL; Monocyte% 7.3 % (0-10); NRBC Flagged by Analyzer 0 % (0-5); Neutrophil # 11.02 X10^3/uL (2.7-7.7); Neutrophil % 85.4 % (47-70); POSITIVE DIFFERENTIAL YES; Platelet Count 356 K/mm3 (150-450); RBC Distribution Width CV 17.5 % (11.6-14.6); RBC Distribution Width SD 57.8 fl (35.1-43.9); Red Blood Count 2.84 M/mm3 (4.2-5.4); White Blood Count 12.9 K/mm3 (4.4-11.0)
[2022-05-14 16:01] LABS: Differential Indicated SCAN CRITERIA MET
[2022-05-14 16:17] LABS: ALB/GLOB Ratio 0.6 RATIO (0.9-2.4); AST(SGOT) 15 U/L (15-37); Alanine Aminotransfer ALT/SGPT 10 U/L (13-56); Albumin, Serum 2.7 g/dL (3.2-5.0); Alkaline Phosphatase 120 U/L (45-117); Anion Gap 10 (5-15); BUN 39 mg/dL (7-18); Calcium,Total 8.4 mg/dL (8.5-10.1); Chloride 100 mmol/L (98-107); Creatinine, Serum 5.54 mg/dL (0.55-1.02); EST Glomerular Filtration Rate 8 mL/min (>60); Est Glom Filt Rate - Afr Amer 10 mL/min (>60); Globulin 4.4 g/dL (2.2-4.2); Glucose 105 mg/dL (74-106); Potassium 3.6 mmol/L (3.5-5.1); Protein, Total 7.1 g/dL (6.4-8.2); Sodium Level 138 mmol/L (136-145)
[2022-05-14 16:27] LABS: Differential Comment SCANNED
[2022-05-14 16:28] LABS: Lactic Acid 1.2 mmol/L (0.4-1.9)
--- NOTE | 2022-05-14 16:52 | RAD_ITS ---
STUDY: X-RAY CHEST REASON FOR EXAM: Female, 76 years old. Hypoxia. Fever. Rales wheezing. TECHNIQUE: PA and lateral views of the chest. COMPARISON: May 07, 2022. FINDINGS: Right jugular hemodialysis catheter. Mild elevation right hemidiaphragm. The lungs are clear. Small bilateral pleural effusiosn. Sternal cerclage wires are present from a prior sternotomy. The heart is normal in size. Normal mediastinum and james. Normal visualized pulmonary arteries. There is atherosclerotic calcification of the aortic arch with tortuosity. There is demineralization of the osseous structures. Normal visualized ribs, clavicles, and shoulders. There is no demonstrated abnormality of the visualized soft tissue structures of the upper abdomen. RAD/Chest PA and Lateral IMPRESSION: Small pleural effusions without pulmonary infiltrate. Electronically Signed: Jaden Suh DO at 17:07 EDT ,
--- NOTE | 2022-05-14 18:42 | HP.PCM.HOS_ITS ---
HPI - General General Date of Admission: 05/14/22 Date of Service: 05/14/22 Chief Complaint: SOB HPI Narrative JULISSA VEGA, is a 76 F who with history of recent upper GI bleed with AVMs found on admission 05/04, pneumonia on admission 05/07 on Levaquin, end-stage renal disease on hemodialysis, ELAINE, heart failure with preserved ejection fraction who presented to [facility] 05/14/2022 with increasing shortness of breath and congestion as well as temperature of 102 degrees at home yesterday and today. In the ED she was 89% on 3.5 L, chest x-ray with small pleural effusions without pulmonary infiltrate. Hospitalist contacted for admission. Patient seen with family member at bedside and they do endorse increasing shortness of breath and possible can congestion or feeling like she has to cough something up for the past 2 days with fever for the past 2 days with a Tmax of 102 at home. Additional complaint of constipation for 4 to 5 days. Sometimes notes that her shortness of breath is worse when lying flat. [facility] Medical History (HFpEF) heart failure with preserved ejection fraction Accidental fall Anxiety Arthritis Atherosclerotic heart disease of [place] coronary artery without angina pectoris CAD (coronary artery disease) Chronic diastolic heart failure Chronic hyponatremia COPD (chronic obstructive pulmonary disease) Diabetes mellitus type 2 in obese Dyslipidemia Easy bruising ESRD (end stage renal disease) on dialysis Essential hypertension History of blood transfusion History of renal dialysis Leg cramps Morbid obesity with BMI of 40.0-44.9, adult Non-rheumatic mitral regurgitation Non-rheumatic tricuspid valve insufficiency On home oxygen therapy Pulmonary hypertension Restless leg syndrome Restless legs Shortness of breath on exertion Toe fracture, left Wears dentures Wears glasses Home Medications amitriptyline 100 mg tablet 100 mg PO QHS mental health 04/09/13 [History Last Taken 05/13/22 21:00] aspirin 81 mg tablet,delayed release 81 mg PO DAILY HEART HEALTH 10/25/17 [History Last Taken 05/14/22 14:00] atorvastatin 80 mg tablet 80 mg PO DAILY CHOLESTEROL 10/25/17 [History Last Taken 05/13/22 21:30] amlodipine 10 mg tablet 10 mg PO DAILY BP 06/01/18 [History Last Taken 05/14/22 08:30] doxazosin 8 mg tablet 8 mg PO QHS blood pressure 08/20/18 [History Last Taken 05/13/22 21:30] omeprazole 40 mg capsule,delayed release 40 mg PO DAILY gerd 08/20/18 [History Last Taken 05/13/22 21:30] hydralazine 100 mg tablet 100 mg PO TID diuretic 01/01/19 [History Last Taken 05/14/22 14:00] bumetanide 2 mg tablet 2 mg PO DAILY diuretic 03/14/19 [History Last Taken 05/14/22 08:30] carvedilol 6.25 mg tablet 6.25 mg PO BID blood pressure 03/14/19 [History Last Taken 05/14/22 08:30] nitroglycerin 0.4 mg sublingual tablet 0.4 mg sublingual Q5M PRN CHEST PAIN 03/14/19 [History Last Taken Unknown] albuterol sulfate 1.25 mg/3 mL solution for nebulization 1.25 mg (3 mL) inhalation 4X/DAY Wheezing #360 mL 08/17/20 [Rx Last Taken 05/14/22 08:30] albuterol sulfate 90 mcg/actuation aerosol inhaler (ProAir HFA) 2 puff inhalation Q6H PRN sob 09/30/20 [History Last Taken 05/13/22 08:30] ropinirole 0.5 mg tablet 0.5 mg PO QHS Check with primary doctor 07/07/21 [History Last Taken 05/13/22 21:30] budesonide-formoterol HFA 160 mcg-4.5 mcg/actuation aerosol inhaler (Symbicort) 2 inh inhalation BID breathing #3 ea 03/10/22 [Rx Last Taken 05/14/22 08:30] acetaminophen 500 mg tablet (Acetaminophen Extra Strength) 1,000 mg PO DAILY PRN Pain 05/04/22 [History Last Taken 05/14/22 14:00] ascorbic acid (vitamin C) 500 mg tablet 500 mg PO DAILY SUPPLEMENT 05/04/22 [History Last Taken 05/14/22 08:30] prednisone 5 mg tablet 5 mg PO DAILY INFLAMMATION 05/04/22 [History Last Taken 05/14/22 08:30] sevelamer carbonate 800 mg tablet 800 mg PO TIDCM PHOSPHATE 05/04/22 [History Last Taken 05/14/22 14:00] isosorbide mononitrate 60 mg tablet,extended release 24 hr 60 mg PO DAILY Check with primary doctor 05/14/22 [History Last Taken 05/13/22 21:30] levofloxacin 500 mg tablet 500 mg PO Q48H Check with primary doctor 05/14/22 [History Last Taken 05/12/22 08:30] sucralfate 1 gram tablet (Carafate) 1 g PO BID Check with primary doctor 05/14/22 [History Last Taken 05/14/22 08:30] Allergy/AdvReac Type Severity Reaction Status Date / Time Penicillins Allergy Hives Verified 05/14/22 15:13 adhesive tape AdvReac Other Verified 05/14/22 15:13 Family History Mother Heart disease Surgical History H/O four vessel coronary artery bypass graft (~04/16/13) Hx of colonoscopy Hx of esophagogastroduodenoscopy Social History household members: family Smoking Status: Former smoker quit date: 03/05/10 alcohol intake: current alcohol intake frequency: other substance use type: does not use ROS ROS Narrative General: Fever at home HENT: Some congestion EYES: Denies changes in vision Resp: Shortness of breath Cardiac: Denies chest pain GI: Denies abdominal pain, does have some constipation : Denies changes in urination Extremity: Denies swelling MSK: Denies weakness Neuro: Denies any numbness, denies tingling Heme: Denies any bleeding or bruising Skin: Denies rashes Psychiatric: No complaints voiced Vital Signs Vital Signs Vital Signs: 05/14/22 15:11 05/14/22 15:40 05/14/22 15:40 Temperature 98.4 F Temperature Source Temporal Pulse Rate 83 Respiratory Rate 22 H Respiratory Effort Short of Breath Labored Respiratory Depth Normal Respiratory Pattern Normal Blood Pressure 153/57 H Blood Pressure Mean 89 Pulse Ox 89 94 Oxygen Delivery Method Nasal Cannula Nasal Cannula Oxygen Flow Rate (L/min) 3 1.5 1.5 Fraction of Inspired Oxygen (FIO2) 05/14/22 16:42 05/14/22 16:48 Temperature 97.5 F L Temperature Source Temporal Pulse Rate 76 Respiratory Rate 18 Respiratory Effort Respiratory Depth Respiratory Pattern Blood Pressure 111/44 L Blood Pressure Mean 66 Pulse Ox 89 93 Oxygen Delivery Method Nasal Cannula Nasal Cannula Oxygen Flow Rate (L/min) 1 3 Fraction of Inspired Oxygen (FIO2) 1.5 Weight Weight: 62.5 kg Body Mass Index (BMI) 25.2 Physical Exam Narrative General: Alert, oriented, no apparent distress HEENT: Atraumatic, normocephalic Eyes: Anicteric, normal conjunctiva, extraocular movements grossly intact Neck: Supple Respiratory: Faint crackles at the bases, scattered wheezes, slight increase in work of breathing Cardiovascular: Regular rate and rhythm GI: Soft, nontender, nondistended Extremities: No edema Musculoskeletal: Moving all extremities Neuro: No overt focal neurological deficits Skin: No rashes appreciated Psych: Cooperative Results Lab / Micro Data Result Diagrams: 05/14/22 15:47 05/14/22 15:47 Labs: Laboratory Results - last 24 hr 05/14/22 15:47: WBC 12.9 H, RBC 2.84 L, Hgb 7.8 L, Hct 25.6 L, MCV 90.1, MCH 27.5, MCHC 30.5 L, RDW Std Deviation 57.8 H, RDW Coeff of Becca 17.5 H, Plt Count 356, MPV 9.3, Immature Gran % (Auto) 1.900 H, Neut % (Auto) 85.4 H, Lymph % (Auto) 2.9 L, [place]rus % (Auto) 7.3, Eos % (Auto) 2.2, Baso % (Auto) 0.3, Absolute Neuts (auto) 11.0 H, Absolute Lymphs (auto) 0.38 L, Nucleated RBC % 0, Differential Comment SCANNED 05/14/22 15:47: Sodium 138, Potassium 3.6, Chloride 100, Carbon Dioxide 28.0, Anion Gap 10, BUN 39 H, Creatinine 5.54 H, Est GFR (MDRD) Af Amer 10 L, Est GFR (MDRD) Non-Af 8 L, BUN/Creatinine Ratio 7.0 L, Glucose 105, Calcium 8.4 L, Total Bilirubin 0.70, AST 15, ALT 10 L, Alkaline Phosphatase 120 H, Total Protein 7.1, Albumin 2.7 L, Globulin 4.4 H, Albumin/Globulin Ratio 0.6 L 05/14/22 15:47: Lactic Acid 1.2 Radiology Impression Chest X-Ray 05/14/22 16:52 IMPRESSION: Small pleural effusions without pulmonary infiltrate. Electronically Signed: Jaden Suh, at 17:07 EDT Reading Location ID and State: [address] [place] [address] Tel [phone], Service support , Assessment & Plan Assessment/Plan (1) Acute exacerbation of chronic obstructive pulmonary disease: PLAN: Plan #Acute on chronic hypoxia likely secondary to acute exacerbation of COPD -Chest x-ray with small pleural effusions but no overt infiltrate -Continue DuoNebs and Methylpred for 4 doses followed by oral prednisone -Mucinex -Due to her fevers despite antibiotics suspect there could be a viral component, no infiltrate suggestive of pneumonia, will continue Levaquin -Incentive spirometer -Daily weight -I's and O's -BNP 416 which was lower than 05/09, does not appear to be dehydrated so we will continue her Bumex -Last echo 10/14/2020 with EF of 60%, mild concentric left ventricular hypertrophy with D-shaped septum, moderate mitral and tricuspid valve insufficiency, RVSP of 64 with evidence of diastolic dysfunction. We will repeat echo -Follows with Dr. Ferreira on an outpatient basis #History of heart failure with preserved ejection fraction -BNP is 416 which is down from 500's 05/09 Continue Bumex -Last echo 10/14/2020 with EF of 60%, mild concentric left ventricular hypertrophy with D-shaped septum, moderate mitral and tricuspid valve insufficiency, RVSP of 64 with evidence of diastolic dysfunction. We will repeat echo #Coronary artery disease status post bypass in 2013 -Aspirin, statin #Recent GI bleed -No current signs or symptoms of bleeding -Monitor H&H -Continue PPI #End-stage renal disease on HD -Consult nephrology #DVT ppx: scds 2/2 recent ELISABETH Mike MD Time spent in the patient's overall evaluation,decision-making process, review of diagnostic data, adjustment of management, discussion with other providers, nursing nursing and ancillary staff involved in patient's care documentation, 60 minutes Charges/Coding Visit Charges Inpatient E&M: 55827 Init Hosp L2
--- NOTE | 2022-05-14 19:11 | ECHOD_ITS ---
Reason For Study: DYSPNEA/SOB Procedure This was a 2D Doppler, Color Flow transthoracic echocardiogram. Exam performed portable in patient room. Left Ventricle Normal LV size. Mild concentric left ventricular hypertrophy. Left ventricular systolic function is normal. The estimated ejection fraction is 55 %. No regional wall motion abnormalities noted. Right Ventricle Normal RV size. Normal systolic function. Atria The left atrium is moderately enlarged. Normal right atrium. Mitral Valve There is moderate mitral annular calcification. Moderate (2+) eccentric mitral valve insufficiency. Tricuspid Valve Normal tricuspid valve. Moderate (2+) tricuspid valve insufficiency. Pulmonary artery systolic pressure is 63 mmHg. Aortic Valve Trisinus/trileaflet aortic valve. Mild focal aortic valve calcification. Trivial aortic valve insufficiency. Pulmonic Valve Normal pulmonic valve. Trivial pulmonic valve insufficiency. Great Vessels Normal aortic root. The pulmonary artery is normal size. and partially collapses. Pericardium/Pleural No pericardial effusion. MMode/2D Measurements & Calculations LVIDd: 5.2 cm IVSd: 1.4 cm LVOT diam: 2.1 cm LVIDs: 3.9 cm LVPWd: 1.4 cm LVOT area: 3.5 cm2 RVDd: 4.0 cm FS: 26.2 % Ao root diam: 3.4 cm LAV(MOD-bp): 113.2 ml LA A4 area: 27.9 cm2 LAV(MOD-bp) Indexed: 69.3 ml/m2 LAV(MOD-sp2): 117.1 ml LAV(MOD-sp4): 108.2 ml LA dimension(2D): 5.0 cm RA A4 area: 17.5 cm2 Time Measurements MV dec time: 0.21 sec Doppler Measurements & Calculations MV E max enmanuel: 169.8 cm/sec Lat Peak E' Enmanuel: 12.8 cm/sec Med Peak E' Enmanuel: 13.6 cm/sec MV A max enmanuel: 152.0 cm/sec E/E' lat: 13.2 E/E' med: 12.5 MV E/A: 1.1 MV V2 max: 190.7 cm/sec MV dec slope: 823.3 cm/sec2 Ao V2 max: 277.9 cm/sec MV max P.6 mmHg Ao max P.0 mmHg MV V2 mean: 123.2 cm/sec Ao V2 mean: 202.9 cm/sec MV mean P.7 mmHg Ao mean P.2 mmHg MV V2 VTI: 41.2 cm Ao V2 VTI: 67.2 cm MVA(VTI): 2.7 cm2 AV (velocity ratio): 0.46 LIVE(I,D): 1.6 cm2 LIVE(V,D): 1.7 cm2 LV V1 max: 131.6 cm/sec MR max enmanuel: 647.8 cm/sec SV(LVOT): 110.1 ml LV V1 max P.9 mmHg MR max P.1 mmHg LV V1 mean P.0 mmHg MR mean enmanuel: 535.4 cm/sec LV V1 mean: 95.7 cm/sec MR mean P.8 mmHg LV V1 VTI: 31.1 cm MR VTI: 217.3 cm PA V2 max: 152.7 cm/sec TR max enmanuel: 373.4 cm/sec TR max P.8 mmHg ECHO/Echo Complete Interpretation Summary Normal LV size. Left ventricular systolic function is normal. The estimated ejection fraction is 55 %. The left atrium is moderately enlarged. Moderate (2+) eccentric mitral valve insufficiency. Pulmonary artery systolic pressure is 63 mmHg. Mild concentric left ventricular hypertrophy. Compared to previous study, the left ventricular systolic function is the same. . Ordering Physician: Siobhan Mike Referring Physician: Levi Laird Performed By: Ana Valle, SKIP, RVT
[2022-05-14 19:53] LABS: BNP,B-Type NATRIURETIC PEPTIDE 416.7 pg/mL (0-100)
--- NOTE | 2022-05-14 22:19 | CPS ---
Patient refuses PAP at this time
[2022-05-14] MEDS: 0.9% Saline Lock 10 ML Syringe IV (23:29)
[2022-05-14] MEDS: hydrALAZINE 50 MG Tablet 100 MG PO (23:29)
[2022-05-14] MEDS: Pramipexole Di-HCl 0.25 MG Tablet PO (23:30)
[2022-05-14] MEDS: Sucralfate 1 GM Tablet PO (23:30)
[2022-05-14] MEDS: Amitriptyline 100 MG Tablet PO (23:30)
[2022-05-14] MEDS: guaiFENesin 1,200 MG Tablet 1200 MG PO (23:31)
[2022-05-15] VITALS (18 sets, daily range): BP systolic 151–167; BP diastolic 55–79; PULSE 78–89; RESP 16–20; TEMP 36.5–37.2; O2SAT 91–99; BMI 29.4
[2022-05-15] MEDS: 0.9% Saline Lock 10 ML Syringe IV ×3 (00:19→21:43)
[2022-05-15] MEDS: levoFLOXacin IV 750 MG/150 ML BAG 100 MG IV (00:19)
[2022-05-15 02:37] LABS: M R Staph aureus DNA By PCR Negative (Negative); Probe Check PASS; Specimen Processing Control PASS
[2022-05-15] MEDS: Ipratropium/Albuterol Sulfate 3 ML AMPUL.NEB INHALATION ×5 (03:07→23:13)
[2022-05-15] MEDS: hydrALAZINE 50 MG Tablet 100 MG PO ×3 (06:17→21:43)
[2022-05-15] MEDS: Sucralfate 1 GM Tablet PO ×2 (06:18→21:43)
[2022-05-15] MEDS: Senna/Docusate Sodium 1 Tablet 2 TABLET PO (06:45)
[2022-05-15 06:49] LABS: Blood Gas Specimen Type VEN; O2 Delivery Device Room Air; VBG BASE EXCESS 2 mmol/L (-1.0-3.5); VBG Bicarbonate 26 mmol/L (22-26); VBG PO2 73 mmHg (25-40); VBG SO2 95 % (50-70); VBG TCO2 27 mmol/L (23-33); VBG pCO2 37.9 mmHg (41-51); VBG pH 7.44 (7.32-7.42)
[2022-05-15 07:07] LABS: Absolute Lymphocyte Count 0.23 X10^3/uL (0.83-4.51); Absolute Neutrophil Count 9.5 X10^3/uL (2.0-7.7); Basophil# 0.01 X10^3/uL; Basophil% 0.1 % (0-1); Hematocrit 26.3 % (37-47); Hemoglobin 8.1 g/dL (12.0-15.0); Lymphocyte # 0.23 X10^3/ul (0.83-4.51); Lymphocyte % 2.3 % (19-41); Mean Corp Hgb Conc 30.8 g/dL (32-36); Mean Corpuscular Hgb 27.6 pg (27.0-32.0); Mean Corpuscular Volume 89.5 fL (81-99); Mean Platelet Vol. 9.3 fl (6.2-12.0); Monocyte# 0.11 X10^3/uL; Monocyte% 1.1 % (0-10); NRBC Flagged by Analyzer 0 % (0-5); Neutrophil # 9.52 X10^3/uL (2.7-7.7); Neutrophil % 93.8 % (47-70); POSITIVE DIFFERENTIAL YES; Platelet Count 383 K/mm3 (150-450); RBC Distribution Width CV 17.4 % (11.6-14.6); RBC Distribution Width SD 57.6 fl (35.1-43.9); Red Blood Count 2.94 M/mm3 (4.2-5.4); White Blood Count 10.1 K/mm3 (4.4-11.0)
[2022-05-15 07:09] LABS: Differential Indicated SCAN CRITERIA MET
[2022-05-15 07:43] LABS: ALB/GLOB Ratio 0.5 RATIO (0.9-2.4); AST(SGOT) 15 U/L (15-37); Alanine Aminotransfer ALT/SGPT 10 U/L (13-56); Albumin, Serum 2.6 g/dL (3.2-5.0); Alkaline Phosphatase 122 U/L (45-117); Anion Gap 12 (5-15); BUN 51 mg/dL (7-18); BUN/Creat Ratio 8.5 RATIO (10-20); Calcium,Total 8.7 mg/dL (8.5-10.1); Chloride 97 mmol/L (98-107); Creatinine, Serum 6.02 mg/dL (0.55-1.02); EST Glomerular Filtration Rate 7 mL/min (>60); Est Glom Filt Rate - Afr Amer 9 mL/min (>60); Estimated Creatinine Clearance 6.39 ml/min; Globulin 4.8 g/dL (2.2-4.2); Glucose 191 mg/dL (74-106); Magnesium 2.1 mg/dL (1.6-2.6); Phosphorus 4.4 mg/dL (2.5-4.9); Potassium 3.6 mmol/L (3.5-5.1); Protein, Total 7.4 g/dL (6.4-8.2); Sodium Level 133 mmol/L (136-145)
[2022-05-15 07:49] LABS: Hypochromasia 1+
[2022-05-15] MEDS: Carvedilol 6.25 MG Tablet PO ×2 (09:00→17:48)
--- NOTE | 2022-05-15 09:06 | PN.HOSP_ITS ---
Subjective Subjective Feels a little bit better today. No issues overnight Objective Data Objective Data Vital Signs: Vital Signs Temp Pulse Resp BP Pulse Ox O2 Del Method O2 Flow Rate 97.8 F 85 16 157/63 H 96 Nasal Cannula 3 05/15/22 06:11 05/15/22 07:15 05/15/22 07:15 05/15/22 06:17 05/15/22 07:15 05/15/22 07:15 05/15/22 07:15 FiO2 1.5 05/14/22 16:42 Oxygen Flow Rate (L/min) 3 Oxygen Delivery Method Nasal Cannula Weight: 155 lb 4.345 oz Body Mass Index (BMI) 28.5 Intake & Output: Intake and Output for Last 24 Hours 05/14/22 05/15/22 05/16/22 03:59 03:59 03:59 Intake Total 350 / 350 193 / 193 Balance 350 / 350 193 / 193 Lab / Micro Data Result Diagrams: 05/15/22 06:45 05/15/22 06:45 Labs: Laboratory Results - last 24 hr 05/14/22 15:47: WBC 12.9 H, RBC 2.84 L, Hgb 7.8 L, Hct 25.6 L, MCV 90.1, MCH 27.5, MCHC 30.5 L, RDW Std Deviation 57.8 H, RDW Coeff of Becca 17.5 H, Plt Count 356, MPV 9.3, Immature Gran % (Auto) 1.900 H, Neut % (Auto) 85.4 H, Lymph % (Auto) 2.9 L, [place] % (Auto) 7.3, Eos % (Auto) 2.2, Baso % (Auto) 0.3, Absolute Neuts (auto) 11.0 H, Absolute Lymphs (auto) 0.38 L, Nucleated RBC % 0, Differential Comment SCANNED 05/14/22 15:47: Sodium 138, Potassium 3.6, Chloride 100, Carbon Dioxide 28.0, Anion Gap 10, BUN 39 H, Creatinine 5.54 H, Est GFR (MDRD) Af Amer 10 L, Est GFR (MDRD) Non-Af 8 L, BUN/Creatinine Ratio 7.0 L, Glucose 105, Calcium 8.4 L, Total Bilirubin 0.70, AST 15, ALT 10 L, Alkaline Phosphatase 120 H, Total Protein 7.1, Albumin 2.7 L, Globulin 4.4 H, Albumin/Globulin Ratio 0.6 L 05/14/22 15:47: Lactic Acid 1.2 05/14/22 15:47: B-Natriuretic Peptide 416.7 H 05/14/22 18:30: Blood Type A NEGATIVE, Antibody Screen NEGATIVE 05/14/22 20:50: COVID-19 (ISHAN) Not Detected 05/14/22 23:35: MRSA (PCR) Negative 05/15/22 06:45: WBC 10.1, RBC 2.94 L, Hgb 8.1 L, Hct 26.3 L, MCV 89.5, MCH 27.6, MCHC 30.8 L, RDW Std Deviation 57.6 H, RDW Coeff of Becca 17.4 H, Plt Count 383, MPV 9.3, Immature Gran % (Auto) 2.700 H, Neut % (Auto) 93.8 H, Lymph % (Auto) 2.3 L, [place] % (Auto) 1.1, Eos % (Auto) 0.0, Baso % (Auto) 0.1, Absolute Neuts (auto) 9.5 H, Absolute Lymphs (auto) 0.23 L, Nucleated RBC % 0, Hypochromasia 1+ 05/15/22 06:45: Sodium 133 L, Potassium 3.6, Chloride 97 L, Carbon Dioxide 24.0, Anion Gap 12, BUN 51 H, Creatinine 6.02 H, Estim Creat Clear Calc 6.39, Est GFR (MDRD) Af Amer 9 L, Est GFR (MDRD) Non-Af 7 L, BUN/Creatinine Ratio 8.5 L, Glucose 191 H, Calcium 8.7, Phosphorus 4.4, Magnesium 2.1, Total Bilirubin 0.90, AST 15, ALT 10 L, Alkaline Phosphatase 122 H, Total Protein 7.4, Albumin 2.6 L, Globulin 4.8 H, Albumin/Globulin Ratio 0.5 L Micro: Microbiology 05/14/22 20:50 Mucosa - Nose Respiratory Panel (PCR) - Final ABG Data ABG results: ABG 05/14/22 15:07 Specimen Type MARY VBG pH 7.44 H VBG pO2 73 H VBG HCO3 26 VBG Total CO2 27 VBG O2 Sat (Calc) 95 H VBG Base Excess 2 POC Mix VBG pCO2 Pt Tmp 37.9 L O2 Delivery Device Room Air Radiography Diagnostic Testing: Radiology Impression Chest X-Ray 05/14/22 16:52 IMPRESSION: Small pleural effusions without pulmonary infiltrate. Electronically Signed: Jaden Suh DO at 17:07 EDT Reading Location ID and State: [address] [place] [address] Tel [phone], Service support , Physical Exam Narrative General: Alert, Oriented x3, Cooperative, No apparent distress HEENT: Atraumatic, PERRLA, EOMI, Normocephalic Oral: Moist Mucosa Neck: Supple, No JVD Lungs: Normal air movement, rhonchi, wheeze, No rales Cardiovascular: Regular rate, Regular Rhythm, Normal S1, Normal S2, murmurs Abdomen: Soft, Non Tender, Non-Distended, No Hepato-splenomegaly, midline abdominal hernia Extremities: No edema, Capillary Refill Less than 3 Seconds Skin: No rashes, No breakdown Musculoskeletal: No Tenderness to Palpation of Joints or Extremities Neurological: Cranial nerves II-XII grossly intact, Motor Exam 5/5 strength throughout, Sensory exam intact to light touch and pain Psych/Mental Status: Normal Affect, Appropriate Assessment & Plan Assessment/Plan (1) Acute exacerbation of chronic obstructive pulmonary disease: PLAN: Plan 1.? Acute on chronic hypoxic respiratory failure from COPD exacerbation ? Can continue with Solu-Medrol and then transition to prednisone and inhalers ? Oxygen requirements are at 3 L nasal cannula, her home requirement is at 2 L, she did have improvement because on admission she was at 4 L, she says that she feels much better now and her breathing has eased, no longer tachypneic and no longer increased work of breathing which she had on initial examination ? She was recently hospitalized for pneumonia, will continue the Levaquin 2.? HTN/HLD/CAD status post CABG/chronic diastolic CHF ? Blood pressures are stable ? Can resume all of her home blood pressure medications ? Can continue with Lipitor ? We will obtain a repeat echo to differentiate between truly being a COPD exacerbation worse versus an exacerbation of her heart failure ? Continue with Bumex 3. Chronic GI bleed in the setting of anemia of chronic disease secondary to end-stage renal disease on dialysis/GERD ? She had an EGD back in September 2021 which showed a Dieulafoy's lesion as well as multiple gastric AVMs that were treated ? Continue with PPI, she had an EGD about 2 weeks ago that showed an ulcer with a visible vessel that was treated ? No signs of significant hemorrhage, vital signs are all stable and hemoglobin is 8.1 today ? We will consult nephrology for dialysis, and may transfuse during dialysis ? Per family, her hemoglobin at dialysis was in the 12's in March and has steadily been dropping despite the absence of overt bleeding DVT: SCDs Charges/Coding Visit Charges Inpatient E&M: 03245 Subs Hosp L2
[2022-05-15 10:10] LABS: Absolute Lymphocyte Count 0.17 X10^3/uL (0.83-4.51); Absolute Neutrophil Count 9.8 X10^3/uL (2.0-7.7); Basophil# 0.01 X10^3/uL; Basophil% 0.1 % (0-1); Hematocrit 25.4 % (37-47); Hemoglobin 7.8 g/dL (12.0-15.0); Lymphocyte # 0.17 X10^3/ul (0.83-4.51); Lymphocyte % 1.6 % (19-41); Mean Corp Hgb Conc 30.7 g/dL (32-36); Mean Corpuscular Hgb 27.4 pg (27.0-32.0); Mean Corpuscular Volume 89.1 fL (81-99); Mean Platelet Vol. 9.2 fl (6.2-12.0); Monocyte# 0.16 X10^3/uL; Monocyte% 1.5 % (0-10); NRBC Flagged by Analyzer 0 % (0-5); Neutrophil # 9.79 X10^3/uL (2.7-7.7); Neutrophil % 94.4 % (47-70); POSITIVE DIFFERENTIAL YES; Platelet Count 374 K/mm3 (150-450); RBC Distribution Width CV 17.6 % (11.6-14.6); RBC Distribution Width SD 57.4 fl (35.1-43.9); Red Blood Count 2.85 M/mm3 (4.2-5.4); White Blood Count 10.4 K/mm3 (4.4-11.0)
[2022-05-15] MEDS: Bumetanide 2 MG Tablet PO (10:11)
[2022-05-15] MEDS: Pantoprazole Sodium 40 MG Tablet PO (10:12)
[2022-05-15] MEDS: amLODIPine 10 MG Tablet PO (10:13)
[2022-05-15] MEDS: Isosorbide Mononitrate 60 MG Tablet PO (10:13)
[2022-05-15] MEDS: guaiFENesin 1,200 MG Tablet 1200 MG PO ×2 (10:13→21:42)
[2022-05-15 10:15] LABS: Differential Indicated SCAN CRITERIA MET
--- NOTE | 2022-05-15 10:31 | PCM.CONS.R ---
Assessment & Plan Assessment/Plan (1) End-stage renal disease on hemodialysis: (2) Anemia: (3) Acute on chronic respiratory failure with hypoxia: (4) HTN (hypertension): (5) Acute exacerbation of chronic obstructive pulmonary disease: (6) Pleural effusion: PLAN: Plan Impression/Plan: The patient is a 76-year-old woman with past history of end-stage renal disease, restless leg syndrome, anemia, COPD, pulmonary hypertension, CAD status post CABG with heart failure with preserved ejection fraction, ELAINE, and mitral regurgitation. The patient is admitted to the hospital 05/14/2022 with acute on chronic hypoxic respiratory failure due to exacerbation of COPD. Nephrology is following for management of dialysis in ESRD patient. ESRD. The patient dialyzes on a MW schedule at [facility]. I will arrange for dialysis today. Anemia in chronic kidney disease. Hemoglobin is low at 7.8 g/dL, but this is stable compared to yesterday. I will see if she is receiving long-acting KALPANA such as Micera at her outpatient kidney center. Continue to monitor hemoglobin. Hypertension. The patient is on amlodipine, carvedilol, and hydralazine. BP is reasonably controlled. Ultrafiltration with dialysis today should also help. We will continue to monitor BP. Acute on chronic hypoxic respiratory failure. The patient is being treated for COPD exacerbation with corticosteroid and bronchodilator. She is also being covered for lower respiratory tract infection with levofloxacin. We will ultrafilter the patient with dialysis today since she also has small pleural effusion. HPI Consult Data Date of Consult: 05/15/22 HPI Narrative Reason for Consultation: ESRD HPI Narrative: JULISSA VEGA is a 76-year-old woman with past history of end-stage renal disease, restless leg syndrome, anemia, COPD, pulmonary hypertension, CAD status post CABG with heart failure with preserved ejection fraction, ELAINE, and mitral regurgitation.? The patient dialyzes on a Sunday schedule at [facility] [place].? She is followed at the kidney center by Dr. Davis. The patient was just admitted to the hospital tween 05/07/2022 until 05/09/2022 with acute on chronic hypoxic respiratory failure secondary to viral pneumonia. The patient represented to the hospital yesterday on 05/14/2022 with increasing dyspnea.? The patient also had a fever with temperature 102 Fahrenheit and hypoxemia with SPO2 of 89% in the ED. The patient feels about the same today compared to when she was admitted. She denies chest pain, but she still has dyspnea with exertion. There is no nausea, vomiting, or diarrhea. There is no edema of the lower extremities. The patient did attend dialysis on 05/12/2022 prior to admission. [facility] Medical History (HFpEF) heart failure with preserved ejection fraction Accidental fall Anxiety Arthritis Atherosclerotic heart disease of [place] coronary artery without angina pectoris CAD (coronary artery disease) Chronic diastolic heart failure Chronic hyponatremia COPD (chronic obstructive pulmonary disease) Diabetes mellitus type 2 in obese Dyslipidemia Easy bruising ESRD (end stage renal disease) on dialysis Essential hypertension History of blood transfusion History of renal dialysis Leg cramps Morbid obesity with BMI of 40.0-44.9, adult Non-rheumatic mitral regurgitation Non-rheumatic tricuspid valve insufficiency On home oxygen therapy Pulmonary hypertension Restless leg syndrome Restless legs Shortness of breath on exertion Toe fracture, left Wears dentures Wears glasses Home Medications amitriptyline 100 mg tablet 100 mg PO QHS mental health 04/09/13 [History Last Taken 05/13/22 21:00] aspirin 81 mg tablet,delayed release 81 mg PO DAILY HEART HEALTH 10/25/17 [History Last Taken 05/14/22 14:00] atorvastatin 80 mg tablet 80 mg PO DAILY CHOLESTEROL 10/25/17 [History Last Taken 05/13/22 21:30] amlodipine 10 mg tablet 10 mg PO DAILY BP 06/01/18 [History Last Taken 05/14/22 08:30] doxazosin 8 mg tablet 8 mg PO QHS blood pressure 08/20/18 [History Last Taken 05/13/22 21:30] omeprazole 40 mg capsule,delayed release 40 mg PO DAILY gerd 08/20/18 [History Last Taken 05/13/22 21:30] hydralazine 100 mg tablet 100 mg PO TID diuretic 01/01/19 [History Last Taken 05/14/22 14:00] bumetanide 2 mg tablet 2 mg PO DAILY diuretic 03/14/19 [History Last Taken 05/14/22 08:30] carvedilol 6.25 mg tablet 6.25 mg PO BID blood pressure 03/14/19 [History Last Taken 05/14/22 08:30] nitroglycerin 0.4 mg sublingual tablet 0.4 mg sublingual Q5M PRN CHEST PAIN 03/14/19 [History Last Taken Unknown] albuterol sulfate 1.25 mg/3 mL solution for nebulization 1.25 mg (3 mL) inhalation 4X/DAY Wheezing #360 mL 08/17/20 [Rx Last Taken 05/14/22 08:30] albuterol sulfate 90 mcg/actuation aerosol inhaler (ProAir HFA) 2 puff inhalation Q6H PRN sob 09/30/20 [History Last Taken 05/13/22 08:30] ropinirole 0.5 mg tablet 0.5 mg PO QHS Check with primary doctor 07/07/21 [History Last Taken 05/13/22 21:30] budesonide-formoterol HFA 160 mcg-4.5 mcg/actuation aerosol inhaler (Symbicort) 2 inh inhalation BID breathing #3 ea 03/10/22 [Rx Last Taken 05/14/22 08:30] acetaminophen 500 mg tablet (Acetaminophen Extra Strength) 1,000 mg PO DAILY PRN Pain 05/04/22 [History Last Taken 05/14/22 14:00] ascorbic acid (vitamin C) 500 mg tablet 500 mg PO DAILY SUPPLEMENT 05/04/22 [History Last Taken 05/14/22 08:30] prednisone 5 mg tablet 5 mg PO DAILY INFLAMMATION 05/04/22 [History Last Taken 05/14/22 08:30] sevelamer carbonate 800 mg tablet 800 mg PO TIDCM PHOSPHATE 05/04/22 [History Last Taken 05/14/22 14:00] isosorbide mononitrate 60 mg tablet,extended release 24 hr 60 mg PO DAILY Check with primary doctor 05/14/22 [History Last Taken 05/13/22 21:30] levofloxacin 500 mg tablet 500 mg PO Q48H Check with primary doctor 05/14/22 [History Last Taken 05/12/22 08:30] sucralfate 1 gram tablet (Carafate) 1 g PO BID Check with primary doctor 05/14/22 [History Last Taken 05/14/22 08:30] Allergy/AdvReac Type Severity Reaction Status Date / Time Penicillins Allergy Hives Verified 05/14/22 15:13 adhesive tape AdvReac Other Verified 05/14/22 15:13 Family History Mother Heart disease Surgical History H/O four vessel coronary artery bypass graft (~04/16/13) Hx of colonoscopy Hx of esophagogastroduodenoscopy Social History household members: family Smoking Status: Former smoker quit date: 03/05/10 alcohol intake: current alcohol intake frequency: other substance use type: does not use Physical Exam Narrative General: Alert, oriented, no apparent distress HEENT: Atraumatic, normocephalic Eyes: Anicteric, normal conjunctiva, PERRLA, extraocular movements grossly intact Neck: Supple, trachea is midline, no JVD Respiratory: Bilateral wheezes diffusely on auscultation the lungs Cardiovascular: Normal S1, S2. There is a 3/6 systolic murmur GI: Soft, nontender, nondistended, no guarding or rebound Extremities: No edema. No clubbing or cyanosis Musculoskeletal: Full passive range of motion. No joint swelling. Neuro: No focal neurological deficits Skin: No rashes appreciated Psych: Normal mood/affect Lab / Micro Data Result Diagrams: 05/15/22 09:53 05/15/22 06:45 Labs: Laboratory Results - last 24 hr 05/14/22 15:47: WBC 12.9 H, RBC 2.84 L, Hgb 7.8 L, Hct 25.6 L, MCV 90.1, MCH 27.5, MCHC 30.5 L, RDW Std Deviation 57.8 H, RDW Coeff of Becca 17.5 H, Plt Count 356, MPV 9.3, Immature Gran % (Auto) 1.900 H, Neut % (Auto) 85.4 H, Lymph % (Auto) 2.9 L, [place] % (Auto) 7.3, Eos % (Auto) 2.2, Baso % (Auto) 0.3, Absolute Neuts (auto) 11.0 H, Absolute Lymphs (auto) 0.38 L, Nucleated RBC % 0, Differential Comment SCANNED 05/14/22 15:47: Sodium 138, Potassium 3.6, Chloride 100, Carbon Dioxide 28.0, Anion Gap 10, BUN 39 H, Creatinine 5.54 H, Est GFR (MDRD) Af Amer 10 L, Est GFR (MDRD) Non-Af 8 L, BUN/Creatinine Ratio 7.0 L, Glucose 105, Calcium 8.4 L, Total Bilirubin 0.70, AST 15, ALT 10 L, Alkaline Phosphatase 120 H, Total Protein 7.1, Albumin 2.7 L, Globulin 4.4 H, Albumin/Globulin Ratio 0.6 L 05/14/22 15:47: Lactic Acid 1.2 05/14/22 15:47: B-Natriuretic Peptide 416.7 H 05/14/22 18:30: Blood Type A NEGATIVE, Antibody Screen NEGATIVE 05/14/22 20:50: COVID-19 (ISHAN) Not Detected 05/14/22 23:35: MRSA (PCR) Negative 05/15/22 06:45: WBC 10.1, RBC 2.94 L, Hgb 8.1 L, Hct 26.3 L, MCV 89.5, MCH 27.6, MCHC 30.8 L, RDW Std Deviation 57.6 H, RDW Coeff of Becca 17.4 H, Plt Count 383, MPV 9.3, Immature Gran % (Auto) 2.700 H, Neut % (Auto) 93.8 H, Lymph % (Auto) 2.3 L, [place] % (Auto) 1.1, Eos % (Auto) 0.0, Baso % (Auto) 0.1, Absolute Neuts (auto) 9.5 H, Absolute Lymphs (auto) 0.23 L, Nucleated RBC % 0, Hypochromasia 1+ 05/15/22 06:45: Sodium 133 L, Potassium 3.6, Chloride 97 L, Carbon Dioxide 24.0, Anion Gap 12, BUN 51 H, Creatinine 6.02 H, Estim Creat Clear Calc 6.39, Est GFR (MDRD) Af Amer 9 L, Est GFR (MDRD) Non-Af 7 L, BUN/Creatinine Ratio 8.5 L, Glucose 191 H, Calcium 8.7, Phosphorus 4.4, Magnesium 2.1, Total Bilirubin 0.90, AST 15, ALT 10 L, Alkaline Phosphatase 122 H, Total Protein 7.4, Albumin 2.6 L, Globulin 4.8 H, Albumin/Globulin Ratio 0.5 L 05/15/22 09:53: WBC 10.4, RBC 2.85 L, Hgb 7.8 L, Hct 25.4 L, MCV 89.1, MCH 27.4, MCHC 30.7 L, RDW Std Deviation 57.4 H, RDW Coeff of [place] 17.6 H, Plt Count 374, MPV 9.2, Immature Gran % (Auto) 2.400 H, Neut % (Auto) 94.4 H, Lymph % (Auto) 1.6 L, [place] % (Auto) 1.5, Eos % (Auto) 0.0, Baso % (Auto) 0.1, Absolute Neuts (auto) 9.8 H, Absolute Lymphs (auto) 0.17 L, Nucleated RBC % 0 Micro: Microbiology 05/14/22 20:50 Mucosa - Nose Respiratory Panel (PCR) - Final ABG Data ABG results: ABG 05/14/22 15:07 Specimen Type MARY VBG pH 7.44 H VBG pO2 73 H VBG HCO3 26 VBG Total CO2 27 VBG O2 Sat (Calc) 95 H VBG Base Excess 2 POC Mix VBG pCO2 Pt Tmp 37.9 L O2 Delivery Device Room Air Radiology Impression Chest X-Ray 05/14/22 16:52 IMPRESSION: Small pleural effusions without pulmonary infiltrate. Electronically Signed: Jaden Suh DO at 17:07 EDT Reading Location ID and State: [address] [place] [address] Tel [phone], Service support ,
[2022-05-15 10:44] LABS: Anisocytosis 1+; Hypochromasia 1+
[2022-05-15 13:13] LABS: Hematocrit 25.1 % (37-47); Hemoglobin 7.8 g/dL (12.0-15.0)
--- NOTE | 2022-05-15 16:08 | CASEMGMT ---
RANDY MONTALVO Readmission Note Previous Admission:? 05/07/22-05/09/22 Diagnosis:? pneumonia DC Disposition: Home with?family support Current Admission? Current Diagnosis: AE COPD Pt is a 76 F who with history of recent upper GI bleed with AVMs found on admission 05/04, pneumonia on admission 05/07 on Levaquin, end-stage renal disease on hemodialysis, ELAINE, heart failure with preserved ejection fraction who presented to [facility] 05/14/2022 with increasing shortness of breath and congestion as well as temperature of 102 degrees at home for 2 days. Small pleural effusions found without pulmunory infiltrates. Pt reports taking her medications as ordered. Pt states she has been wearing oxygen at 1.5L at home. Pt aware that per [employer] her orders are 3L cont. Pt receiving dialysis. Discussed with patient having [facility] to follow her at home for her COPD. Therapy has not eval'd pt yet. Pt is agreeable to this. RANDY MONTALVO will bring a list of in network providers. DC Plan: Home with [facility] ?
[2022-05-15] MEDS: Heparin 10,000 UNITS/10 ML Vial 4000 UNITS IV (17:57)
--- NOTE | 2022-05-15 18:47 | DIALYSIS ---
Hemodialysis tx completed x 3 hours without issues. Pt tolerated tx well, fluid removed 2700ml. One unit of PRBC's transfused during dialysis per order for Hgb of 7.8 without complications. Hyper tensive post tx. Verbal report to RANDY Beckman post tx
[2022-05-15] MEDS: Pramipexole Di-HCl 0.25 MG Tablet PO (21:42)
[2022-05-15] MEDS: Atorvastatin Calcium 80 MG Tablet PO (21:43)
[2022-05-15] MEDS: Amitriptyline 100 MG Tablet PO (21:43)
[2022-05-16] VITALS (11 sets, daily range): BP systolic 131–177; BP diastolic 55–104; PULSE 80–91; RESP 16–18; TEMP 36.1–36.6; O2SAT 93–98; BMI 29.5
[2022-05-16] MEDS: hydrALAZINE 50 MG Tablet 100 MG PO ×3 (06:29→21:47)
[2022-05-16] MEDS: Sucralfate 1 GM Tablet PO ×2 (06:30→21:47)
[2022-05-16 06:48] LABS: Absolute Neutrophil Count 13.7 X10^3/uL (2.0-7.7); Basophil# 0.03 X10^3/uL; Basophil% 0.2 % (0-1); Hematocrit 30.7 % (37-47); Hemoglobin 9.6 g/dL (12.0-15.0); Mean Corp Hgb Conc 31.3 g/dL (32-36); Mean Corpuscular Hgb 27.4 pg (27.0-32.0); Mean Corpuscular Volume 87.7 fL (81-99); Mean Platelet Vol. 9.1 fl (6.2-12.0); Monocyte# 0.39 X10^3/uL; Monocyte% 2.6 % (0-10); NRBC Flagged by Analyzer 0 % (0-5); Neutrophil # 13.73 X10^3/uL (2.7-7.7); Neutrophil % 92.4 % (47-70); POSITIVE DIFFERENTIAL YES; Platelet Count 457 K/mm3 (150-450); RBC Distribution Width CV 17.5 % (11.6-14.6); RBC Distribution Width SD 56.1 fl (35.1-43.9); White Blood Count 14.9 K/mm3 (4.4-11.0)
[2022-05-16 07:08] LABS: Differential Indicated SCAN CRITERIA MET
[2022-05-16] MEDS: Ipratropium/Albuterol Sulfate 3 ML AMPUL.NEB INHALATION ×3 (07:13→19:58)
[2022-05-16 07:15] LABS: Anion Gap 10 (5-15); BUN 36 mg/dL (7-18); BUN/Creat Ratio 9.1 RATIO (10-20); Calcium,Total 8.6 mg/dL (8.5-10.1); Chloride 99 mmol/L (98-107); Creatinine, Serum 3.97 mg/dL (0.55-1.02); EST Glomerular Filtration Rate 12 mL/min (>60); Est Glom Filt Rate - Afr Amer 14 mL/min (>60); Estimated Creatinine Clearance 9.68 ml/min; Glucose 180 mg/dL (74-106); Potassium 3.6 mmol/L (3.5-5.1); Sodium Level 137 mmol/L (136-145)
[2022-05-16 07:19] LABS: Phosphorus 4.2 mg/dL (2.5-4.9)
[2022-05-16 07:21] LABS: Differential Comment SCANNED
[2022-05-16] MEDS: Carvedilol 6.25 MG Tablet PO ×2 (09:00→17:46)
[2022-05-16] MEDS: predniSONE 20 MG Tablet 40 MG PO (09:00)
--- NOTE | 2022-05-16 09:02 | PCM.PN.HOSP ---
Subjective Subjective Doing well, feels much better today Objective Data Objective Data Vital Signs: Vital Signs Temp Pulse Resp BP Pulse Ox O2 Del Method O2 Flow Rate 97.8 F 91 18 161/68 H 97 Nasal Cannula 3 05/16/22 03:26 05/16/22 06:29 05/16/22 03:26 05/16/22 06:29 05/16/22 03:26 05/16/22 03:30 05/16/22 03:30 FiO2 1.5 05/14/22 16:42 Oxygen Flow Rate (L/min) 3 Oxygen Delivery Method Nasal Cannula Weight: 161 lb 6.054 oz Body Mass Index (BMI) 29.5 Intake & Output: Intake and Output for Last 24 Hours 05/15/22 05/16/22 05/17/22 03:59 03:59 03:59 Intake Total 350 / 350 1533 / 1533 200 / 200 Balance 350 / 350 1533 / 1533 200 / 200 Lab / Micro Data Result Diagrams: 05/16/22 06:25 05/16/22 06:25 Labs: Laboratory Results - last 24 hr 05/14/22 18:30: Crossmatch See Detail 05/15/22 09:53: WBC 10.4, RBC 2.85 L, Hgb 7.8 L, Hct 25.4 L, MCV 89.1, MCH 27.4, MCHC 30.7 L, RDW Std Deviation 57.4 H, RDW Coeff of Becca 17.6 H, Plt Count 374, MPV 9.2, Immature Gran % (Auto) 2.400 H, Neut % (Auto) 94.4 H, Lymph % (Auto) 1.6 L, [place] % (Auto) 1.5, Eos % (Auto) 0.0, Baso % (Auto) 0.1, Absolute Neuts (auto) 9.8 H, Absolute Lymphs (auto) 0.17 L, Nucleated RBC % 0, Hypochromasia 1+, Anisocytosis 1+ 05/15/22 13:00: Hgb 7.8 L, Hct 25.1 L 05/16/22 06:25: Sodium 137, Potassium 3.6, Chloride 99, Carbon Dioxide 28.0, Anion Gap 10, BUN 36 H, Creatinine 3.97 H, Estim Creat Clear Calc 9.68, Est GFR (MDRD) Af Amer 14 L, Est GFR (MDRD) Non-Af 12 L, BUN/Creatinine Ratio 9.1 L, Glucose 180 H, Calcium 8.6 05/16/22 06:25: Phosphorus 4.2 05/16/22 06:25: WBC 14.9 H, RBC 3.50 L, Hgb 9.6 L, Hct 30.7 L, MCV 87.7, MCH 27.4, MCHC 31.3 L, RDW Std Deviation 56.1 H, RDW Coeff of [place]cca 17.5 H, Plt Count 457 H, MPV 9.1, Immature Gran % (Auto) 2.800 H, Neut % (Auto) 92.4 H, Lymph % (Auto) 2.0 L, [place] % (Auto) 2.6, Eos % (Auto) 0.0, Baso % (Auto) 0.2, Absolute Neuts (auto) 13.7 H, Absolute Lymphs (auto) 0.30 L, Nucleated RBC % 0, Differential Comment SCANNED Micro: Microbiology 05/14/22 20:50 Mucosa - Nose Respiratory Panel (PCR) - Final Radiography Diagnostic Testing: Radiology Impression Echocardiogram 05/14/22 19:11 Interpretation Summary Normal LV size. Left ventricular systolic function is normal. The estimated ejection fraction is 55 %. The left atrium is moderately enlarged. Moderate (2+) eccentric mitral valve insufficiency. Pulmonary artery systolic pressure is 63 mmHg. Mild concentric left ventricular hypertrophy. Compared to previous study, the left ventricular systolic function is the same.. Ordering Physician: Siobhan Mike Referring Physician: Levi Laird Performed By: Ana Valle, SKIP, RVT Physical Exam Narrative General: Alert, Oriented x3, Cooperative, No apparent distress HEENT: Atraumatic, PERRLA, EOMI, Normocephalic Oral: Moist Mucosa Neck: Supple, No JVD Lungs: Diminished, normal air movement, no rhonchi, no wheeze, No rales Cardiovascular: Regular rate, Regular Rhythm, Normal S1, Normal S2, murmurs Abdomen: Soft, Non Tender, Non-Distended, No Hepato-splenomegaly, midline abdominal hernia Extremities: No edema, Capillary Refill Less than 3 Seconds Skin: No rashes, No breakdown Musculoskeletal: No Tenderness to Palpation of Joints or Extremities Neurological: Cranial nerves II-XII grossly intact, Motor Exam 5/5 strength throughout, Sensory exam intact to light touch and pain Psych/Mental Status: Normal Affect, Appropriate Assessment & Plan Assessment/Plan (1) Acute exacerbation of chronic obstructive pulmonary disease: PLAN: Plan 1.? Acute on chronic hypoxic respiratory failure from COPD exacerbation ? Can continue with Solu-Medrol and then transition to prednisone and inhalers ? Respiratory issues have resolved ? She was recently hospitalized for pneumonia, can discontinue Levaquin if okay with pulmonology 2.? HTN/HLD/CAD status post CABG/chronic diastolic CHF ? Blood pressures are stable ? Can resume all of her home blood pressure medications ? Can continue with Lipitor ? We will obtain a repeat echo to differentiate between truly being a COPD exacerbation worse versus an exacerbation of her heart failure ? Continue with Bumex 3. Chronic GI bleed in the setting of anemia of chronic disease secondary to end-stage renal disease on dialysis/GERD ? She had an EGD back in September 2021 which showed a Dieulafoy's lesion as well as multiple gastric AVMs that were treated ? Continue with PPI, she had an EGD about 2 weeks ago that showed an ulcer with a visible vessel that was treated ? No signs of significant hemorrhage, vital signs are all stable and hemoglobin is 9.6 today ? We will consult GI for evaluation to see if a repeat scope is necessary versus proceeding with a capsule endoscopy as an outpatient ? We will consult nephrology for dialysis, and may transfuse during dialysis ? Per family, her hemoglobin at dialysis was in the 12's in March and has steadily been dropping despite the absence of overt bleeding DVT: SCDs Charges/Coding Visit Charges Inpatient E&M: 66533 Subs Hosp L2
[2022-05-16] MEDS: Pantoprazole Sodium 40 MG Tablet PO (09:05)
[2022-05-16] MEDS: Isosorbide Mononitrate 60 MG Tablet PO (09:05)
[2022-05-16] MEDS: guaiFENesin 1,200 MG Tablet 1200 MG PO ×2 (09:05→21:47)
[2022-05-16] MEDS: Bumetanide 2 MG Tablet PO (09:05)
[2022-05-16] MEDS: amLODIPine 10 MG Tablet PO (09:06)
[2022-05-16] MEDS: 0.9% Saline Lock 10 ML Syringe IV (09:06)
--- NOTE | 2022-05-16 09:45 | EX.PCM.CONCC ---
Assessment & Plan Assessment/Plan (1) Secondary pulmonary hypertension: (2) Chronic diastolic heart failure: PLAN: Plan RECOMMENDATIONS: 1. Await GI consultation 2. Okay to discontinue Levaquin from my perspective 3. Continue therapeutic substitution for baseline respiratory medications 4. Likely okay to treat with a 5-day burst of prednisone 5. Walking oximetry prior to discharge IMPRESSIONS: 1. Chronic hypoxic respiratory failure with acute exacerbation Patient with exacerbation and symptoms, but etiology is unclear at this time. Patient does have an echocardiogram showing significantly elevated pulmonary artery pressures at 63 mmHg. This would be improved by volume removal, which patient had hemodialysis yesterday. Anemia will also lead to significant worsening of symptomatology. Patient does have a history of a recent GI bleed, but appears to have incremented appropriately with blood transfusion yesterday. Patient is feeling very good today, so this complicates the ability to tell an etiology at this time. Patient has received a full course of Levaquin and this can likely be discontinued. Given improvement following dialysis and volume removal, reasonable to keep prednisone burst at 5 days. 2.??Type II pulmonary hypertension/obstructive sleep apnea Patient with moderate to severe elevation on right heart cath in the past.? Acute hypoxemia would exacerbate patient's underlying cor pulmonale could lead to flash pulmonary edema.? Patient saturations are doing well at this time.? We will continue to monitor.? Patient appears to be responding well to volume removal with hemodialysis therapy.? Patient should have a walking oximetry prior to discharge.? It will be impaired if the patient's saturations stay above 90% at all times, even with ambulation.? Patient would benefit from the use of CPAP at night with sleep, but feels this is not necessary.? This is complicated by relatively severe MVR and diffuse aortic valve calcification.? 3.??Hypertension/diabetes mellitus/iron deficiency anemia/advanced age/morbid obesity/recent GI bleed Complicates care, management, recovery and prognosis.? Patient was significant improvement following blood transfusion.? Continue to monitor blood sugars closely.? Encourage weight loss. HPI Consult Data Date of Consult: 05/16/22 HPI Narrative Reason for Consultation: Respiratory distress HPI Narrative: JULISSA VEGA is a 76 F, with past medical history listed below, who presents to [facility] on 05/14/2022 secondary to progressive shortness of breath and recent diagnosis of pneumonia. Patient had been on antibiotics and discharged home. Patient is on supplemental oxygen at baseline at about 2 L/min, but was noted to have a saturation of 89% on 3-1/2 L. Family had brought her in because of failure to improve. Patient was admitted at the beginning of May secondary to a GI bleed with a hemoglobin of 6. At that time she had had some intermittent black stools and was found to have multiple AVMs and a deltoid lesion on EGD. Patient also reportedly had esophageal varices and required transfusion. Patient had completed 7 days of Levaquin twice daily secondary to her renal failure. Patient reportedly had a fever of 102 ?F at home was brought in for an evaluation. In the ER, patient was afebrile, but tachypneic at 22 breaths/min. Patient's blood pressure was adequate and patient required between 1-1/2 and 3 L/min to maintain saturations. Laboratory work-up showed a white blood cell count of 12.9, hemoglobin of 7.8 and platelets of 356. Patient had a creatinine of 5.54, but is on hemodialysis at baseline. Patient did have a slightly elevated alkaline phosphatase at 120, but lactate was within normal limits at 1.2. Chest x-ray did not show any acute infiltrate, but patient did have small bilateral pleural effusions. Patient was admitted to the regular medical floor. Yesterday, patient received a blood transfusion and hemodialysis with fluid removal. This morning, patient feels significantly improved compared to yesterday. Patient states she was able to ambulate to the bathroom and to the sink without assistance on her baseline nasal cannula oxygen. Patient states that she has had no significant change in cough. Patient describes the cough is relatively nonproductive. Patient has not reported any significant lower extremity edema. Patient states that she has been told that she has done very well from a fluid standpoint during dialysis. Patient has not reported any truncated dialysis related to hypotension, cramping or bleeding complications. Patient states she has been compliant with her low-salt diet. Patient is not aware of any black stools recently. Review of systems otherwise negative from a constitutional, HEENT, respiratory, cardiovascular, GI, genitourinary, musculoskeletal, skin, neurologic, psychiatric and hematologic system unless stated above. FORMERLY [facility] Medical History (HFpEF) heart failure with preserved ejection fraction Accidental fall Anxiety Arthritis Atherosclerotic heart disease of [place] coronary artery without angina pectoris CAD (coronary artery disease) Chronic diastolic heart failure Chronic hyponatremia COPD (chronic obstructive pulmonary disease) Diabetes mellitus type 2 in obese Dyslipidemia Easy bruising ESRD (end stage renal disease) on dialysis Essential hypertension History of blood transfusion History of renal dialysis Leg cramps Morbid obesity with BMI of 40.0-44.9, adult Non-rheumatic mitral regurgitation Non-rheumatic tricuspid valve insufficiency On home oxygen therapy Pulmonary hypertension Restless leg syndrome Restless legs Shortness of breath on exertion Toe fracture, left Wears dentures Wears glasses Home Medications amitriptyline 100 mg tablet 100 mg PO QHS mental health 04/09/13 [History Last Taken 05/13/22 21:00] aspirin 81 mg tablet,delayed release 81 mg PO DAILY HEART HEALTH 10/25/17 [History Last Taken 05/14/22 14:00] atorvastatin 80 mg tablet 80 mg PO DAILY CHOLESTEROL 10/25/17 [History Last Taken 05/13/22 21:30] amlodipine 10 mg tablet 10 mg PO DAILY BP 06/01/18 [History Last Taken 05/14/22 08:30] doxazosin 8 mg tablet 8 mg PO QHS blood pressure 08/20/18 [History Last Taken 05/13/22 21:30] omeprazole 40 mg capsule,delayed release 40 mg PO DAILY gerd 08/20/18 [History Last Taken 05/13/22 21:30] hydralazine 100 mg tablet 100 mg PO TID diuretic 01/01/19 [History Last Taken 05/14/22 14:00] bumetanide 2 mg tablet 2 mg PO DAILY diuretic 03/14/19 [History Last Taken 05/14/22 08:30] carvedilol 6.25 mg tablet 6.25 mg PO BID blood pressure 03/14/19 [History Last Taken 05/14/22 08:30] nitroglycerin 0.4 mg sublingual tablet 0.4 mg sublingual Q5M PRN CHEST PAIN 03/14/19 [History Last Taken Unknown] albuterol sulfate 1.25 mg/3 mL solution for nebulization 1.25 mg (3 mL) inhalation 4X/DAY Wheezing #360 mL 08/17/20 [Rx Last Taken 05/14/22 08:30] albuterol sulfate 90 mcg/actuation aerosol inhaler (ProAir HFA) 2 puff inhalation Q6H PRN sob 09/30/20 [History Last Taken 05/13/22 08:30] ropinirole 0.5 mg tablet 0.5 mg PO QHS Check with primary doctor 07/07/21 [History Last Taken 05/13/22 21:30] budesonide-formoterol HFA 160 mcg-4.5 mcg/actuation aerosol inhaler (Symbicort) 2 inh inhalation BID breathing #3 ea 03/10/22 [Rx Last Taken 05/14/22 08:30] acetaminophen 500 mg tablet (Acetaminophen Extra Strength) 1,000 mg PO DAILY PRN Pain 05/04/22 [History Last Taken 05/14/22 14:00] ascorbic acid (vitamin C) 500 mg tablet 500 mg PO DAILY SUPPLEMENT 05/04/22 [History Last Taken 05/14/22 08:30] prednisone 5 mg tablet 5 mg PO DAILY INFLAMMATION 05/04/22 [History Last Taken 05/14/22 08:30] sevelamer carbonate 800 mg tablet 800 mg PO TIDCM PHOSPHATE 05/04/22 [History Last Taken 05/14/22 14:00] isosorbide mononitrate 60 mg tablet,extended release 24 hr 60 mg PO DAILY Check with primary doctor 05/14/22 [History Last Taken 05/13/22 21:30] levofloxacin 500 mg tablet 500 mg PO Q48H Check with primary doctor 05/14/22 [History Last Taken 05/12/22 08:30] sucralfate 1 gram tablet (Carafate) 1 g PO BID Check with primary doctor 05/14/22 [History Last Taken 05/14/22 08:30] Allergy/AdvReac Type Severity Reaction Status Date / Time Penicillins Allergy Hives Verified 05/14/22 15:13 adhesive tape AdvReac Other Verified 05/14/22 15:13 Family History Mother Heart disease Surgical History H/O four vessel coronary artery bypass graft (~04/16/13) Hx of colonoscopy Hx of esophagogastroduodenoscopy Social History household members: family Smoking Status: Former smoker quit date: 03/05/10 alcohol intake: current alcohol intake frequency: other substance use type: does not use ROS ROS Narrative See HPI Physical Exam Const alert, oriented x3, no apparent distress and well nourished General Appearance: cooperative HEENT normocephalic, head/scalp atraumatic, hearing grossly normal bilaterally and moist oral mucous membranes HEENT Narrative: Upper dentures in place, Mallampati 3, no thrush Eyes PERRL, EOMs intact bilaterally and conjunctivae normal Neck no lymphadenopathy and supple Chest inspection of chest normal Resp normal respiratory effort, no retractions and no use of accessory muscles Auscultation: diminished lung sounds; Negative for rales, rhonchi or wheezes Cardio regular rate, regular rhythm, S1 normal heart sound, no rub, no gallops and no clicks; Negative for S2 normal heart sound Heart Sounds: murmur systolic IV/ loud mid left sternal border GI normal to inspection, nondistended, normoactive bowel sounds and soft to palpation; Negative for non-tender Extremity General Extremity: clubbing Skin Skin Narrative: Skin with darkish hue and ecchymosis scattered, tunneled dialysis catheter in the right chest appears clean, dry and intact Neuro oriented x3, CN's II-XII intact bilaterally, moves all extremities and no focal motor deficits Psych cooperative and affect normal Medical Records Data Attestation: I reviewed the patient's medical records Medical records narrative: Patient's last PFT in 2020 showed a partially reversible mild large airways obstructive ventilatory defect with a disproportionate reduction in diffusion capacity. An exercise oximetry around that time showed patient was 94% on room air, but did desaturate with ambulating only 325 feet. Patient does have a history of not being compliant with her CPAP therapy for ELAINE. Lab / Micro Data Attestation: I reviewed the patient's lab results. Result Diagrams: 05/16/22 06:25 05/16/22 06:25 Labs: Laboratory Results - last 24 hr 05/14/22 18:30: Crossmatch See Detail 05/15/22 09:53: WBC 10.4, RBC 2.85 L, Hgb 7.8 L, Hct 25.4 L, MCV 89.1, MCH 27.4, MCHC 30.7 L, RDW Std Deviation 57.4 H, RDW Coeff of Becca 17.6 H, Plt Count 374, MPV 9.2, Immature Gran % (Auto) 2.400 H, Neut % (Auto) 94.4 H, Lymph % (Auto) 1.6 L, [place] % (Auto) 1.5, Eos % (Auto) 0.0, Baso % (Auto) 0.1, Absolute Neuts (auto) 9.8 H, Absolute Lymphs (auto) 0.17 L, Nucleated RBC % 0, Hypochromasia 1+, Anisocytosis 1+ 05/15/22 13:00: Hgb 7.8 L, Hct 25.1 L 05/16/22 06:25: Sodium 137, Potassium 3.6, Chloride 99, Carbon Dioxide 28.0, Anion Gap 10, BUN 36 H, Creatinine 3.97 H, Estim Creat Clear Calc 9.68, Est GFR (MDRD) Af Amer 14 L, Est GFR (MDRD) Non-Af 12 L, BUN/Creatinine Ratio 9.1 L, Glucose 180 H, Calcium 8.6 05/16/22 06:25: Phosphorus 4.2 05/16/22 06:25: WBC 14.9 H, RBC 3.50 L, Hgb 9.6 L, Hct 30.7 L, MCV 87.7, MCH 27.4, MCHC 31.3 L, RDW Std Deviation 56.1 H, RDW Coeff of Becca 17.5 H, Plt Count 457 H, MPV 9.1, Immature Gran % (Auto) 2.800 H, Neut % (Auto) 92.4 H, Lymph % (Auto) 2.[address] L, [place] % (Auto) 2.6, Eos % (Auto) 0.0, Baso % (Auto) 0.2, Absolute Neuts (auto) 13.7 H, Absolute Lymphs (auto) 0.30 L, Nucleated RBC % 0, Differential Comment SCANNED Radiology Impression Echocardiogram 05/14/22 19:11 Interpretation Summary Normal LV size. Left ventricular systolic function is normal. The estimated ejection fraction is 55 %. The left atrium is moderately enlarged. Moderate (2+) eccentric mitral valve insufficiency. Pulmonary artery systolic pressure is 63 mmHg. Mild concentric left ventricular hypertrophy. Compared to previous study, the left ventricular systolic function is the same.. Ordering Physician: Siobhan Mike Referring Physician: Levi Laird Performed By: Ana Valle, SKIP, RVT Charges/Coding Visit Charges Inpatient E&M: 66975 Init Hosp L2
--- NOTE | 2022-05-16 12:35 | CASEMGMT ---
RANDY MONTALVO into pt room, pt sitting up in chair in no distress. Patient was provided a list of C providers including quality and resource use data and consistent with the patient?s preferred geographic region, medical needs, and insurance network were provided from the [employer] Guide. Pt states she has changed her mind and does not want this now. Discussed Patient Link, pt states she does not want this either. Discussed multiple admissions and pt denies needing any follow up at home. She states she went a year before coming into the hospital this time. Made pt aware that if she gets home and changes her mind, she has the HHC list and she can notify her PCP. Pt verbalized understanding.
--- NOTE | 2022-05-16 14:19 | PCM.PN.REN ---
Documented by User: TREVOR Paul 05/16/22 14:27 Subjective Subjective Following for ESRD Patient is sitting in chair, hopeful to go home today. Denies any complaints. Objective Data Objective Data Vital Signs: Vital Signs Temp Pulse Resp BP Pulse Ox O2 Del Method O2 Flow Rate 96.9 F L 80 16 159/104 H 93 Nasal Cannula 1.5 05/16/22 09:30 05/16/22 11:24 05/16/22 11:24 05/16/22 09:30 05/16/22 11:24 05/16/22 11:24 05/16/22 11:24 FiO2 1.5 05/14/22 16:42 Oxygen Flow Rate (L/min) 1.5 Oxygen Delivery Method Nasal Cannula Weight: 73.2 kg Body Mass Index (BMI) 29.5 Intake & Output: Intake and Output for Last 24 Hours 05/14/22 05/15/22 05/16/22 23:59 23:59 23:59 Intake Total 1583 / 1883 740 / 740 Balance 1583 / 1883 740 / 740 Lab / Micro Data Result Diagrams: 05/16/22 06:25 05/16/22 06:25 Labs: Laboratory Results - last 24 hr 05/14/22 18:30: Crossmatch See Detail 05/16/22 06:25: Sodium 137, Potassium 3.6, Chloride 99, Carbon Dioxide 28.0, Anion Gap 10, BUN 36 H, Creatinine 3.97 H, Estim Creat Clear Calc 9.68, Est GFR (MDRD) Af Amer 14 L, Est GFR (MDRD) Non-Af 12 L, BUN/Creatinine Ratio 9.1 L, Glucose 180 H, Calcium 8.6 05/16/22 06:25: Phosphorus 4.2 05/16/22 06:25: WBC 14.9 H, RBC 3.50 L, Hgb 9.6 L, Hct 30.7 L, MCV 87.7, MCH 27.4, MCHC 31.3 L, RDW Std Deviation 56.1 H, RDW Coeff of Becca 17.5 H, Plt Count 457 H, MPV 9.1, Immature Gran % (Auto) 2.800 H, Neut % (Auto) 92.4 H, Lymph % (Auto) 2.0 L, [place] % (Auto) 2.6, Eos % (Auto) 0.0, Baso % (Auto) 0.2, Absolute Neuts (auto) 13.7 H, Absolute Lymphs (auto) 0.30 L, Nucleated RBC % 0, Differential Comment SCANNED Micro: Microbiology 05/14/22 20:50 Mucosa - Nose Respiratory Panel (PCR) - Final Radiography Diagnostic Testing: Radiology Impression Echocardiogram 05/14/22 19:11 Interpretation Summary Normal LV size. Left ventricular systolic function is normal. The estimated ejection fraction is 55 %. The left atrium is moderately enlarged. Moderate (2+) eccentric mitral valve insufficiency. Pulmonary artery systolic pressure is 63 mmHg. Mild concentric left ventricular hypertrophy. Compared to previous study, the left ventricular systolic function is the same.. Ordering Physician: Siobhan Mike Referring Physician: Levi Laird Performed By: Ana Valle, SKIP, RVT Physical Exam Narrative General: Alert, oriented, no apparent distress HEENT: Atraumatic, normocephalic Neck: Supple, no JVD Respiratory: Clear anteriorly, faint rales noted posterior bilateral upper lobes Cardiovascular: Normal S1, S2. There is a 3/6 systolic murmur GI: Soft, nontender, nondistended Extremities: No edema Right chest tunneled HD catheter dressing clean, dry and intact Assessment & Plan Assessment/Plan (1) End-stage renal disease on hemodialysis: (2) Anemia: (3) Acute on chronic respiratory failure with hypoxia: (4) HTN (hypertension): (5) Acute exacerbation of chronic obstructive pulmonary disease: (6) Pleural effusion: PLAN: Plan - The patient dialyzes on a MWF schedule at [facility]. Patient tolerated dialysis on Sunday with 3 L UF. Patient does not know outpatient dry weight. No acute indication for ENGINEERING TECHNOLOGY INSTRUCTOR today, patient will have dialysis tomorrow and will attempt to remove fluid as patient/blood pressure tolerates. Quite possibly dry weight will need to be lowered. - Awaiting GI evaluation. Hemoglobin improved at 9.6 g/dL. - Blood pressure reasonably controlled, the patient is on amlodipine, carvedilol, Imdur and hydralazine. - treated for COPD exacerbation with corticosteroid and bronchodilator. Levaquin course completed. Documented by User: Dr. Yarely Sandra MD 05/16/22 17:45 Objective Data Lab / Micro Data Result Diagrams: 05/16/22 06:25 05/16/22 06:25 Assessment & Plan Assessment/Plan (1) End-stage renal disease on hemodialysis: (2) Anemia: (3) Acute on chronic respiratory failure with hypoxia: (4) HTN (hypertension): (5) Acute exacerbation of chronic obstructive pulmonary disease: (6) Pleural effusion: PLAN: Plan - The patient dialyzes on a MWF schedule at [facility]. Patient tolerated dialysis on Sunday with 3 L UF. Patient does not know outpatient dry weight. No acute indication for ENGINEERING TECHNOLOGY INSTRUCTOR today, patient will have dialysis tomorrow and will attempt to remove fluid as patient/blood pressure tolerates. Quite possibly dry weight will need to be lowered. - Awaiting GI evaluation. Hemoglobin improved at 9.6 g/dL. - Blood pressure reasonably controlled, the patient is on amlodipine, carvedilol, Imdur and hydralazine. - treated for COPD exacerbation with corticosteroid and bronchodilator. Levaquin course completed. Nephrology attending addendum: The patient is seen and examined. Nurse practitioner's note reflects my evaluation and management decision. The patient is feeling better today with less shortness of breath. Continue to remove fluid with dialysis. If the patient is not discharged, we will arrange for dialysis again tomorrow. Keo Patel MD
--- NOTE | 2022-05-16 17:44 | EX.PCM.CON.G ---
HPI Consult Data Date of Consult: 05/16/22 HPI Narrative Reason for Consultation: Anemia HPI Narrative: JULISSA VEGA, is a 76 F who presents with fever and chills. She is known to GI service. Most recent hgb 9 on 04/28/22, down from 9.8 on 04/19/22, 10.4 on 04/12/22, 11 on 04/05/22, 12 on 03/29/22, 12.3 on 03/22/22. Hgb checked every other week at dialysis. ? I initially saw her when she was hospitalized in March 2021 for acute symptomatic anemia on chronic anemia. She had intermittent dark stools. Hemoglobin was 6.? She received 2 units of packed red blood cells.? Hemoglobin was 7.1 at discharge.? She has end-stage renal disease on dialysis Sunday.? During that that hospitalization I performed an EGD and colonoscopy.? Esophagus was normal.? Red blood was found on the lesser curvature of the stomach.? Three 5 mm polyps with bleeding were found in the stomach.? Duodenum was normal.? Fifteen 1 to 3 mm polyps were removed from the colon.? 3 small angiodysplastic lesions with bleeding were found in the colon, those were treated with argon beam successfully.? Microscopic diagnosis: Tubular adenomas in the colon, hyperplastic polyps in the stomach, negative H. pylori. [facility] Medical History (HFpEF) heart failure with preserved ejection fraction Accidental fall Anxiety Arthritis Atherosclerotic heart disease of [place] coronary artery without angina pectoris CAD (coronary artery disease) Chronic diastolic heart failure Chronic hyponatremia COPD (chronic obstructive pulmonary disease) Diabetes mellitus type 2 in obese Dyslipidemia Easy bruising ESRD (end stage renal disease) on dialysis Essential hypertension History of blood transfusion History of renal dialysis Leg cramps Morbid obesity with BMI of 40.0-44.9, adult Non-rheumatic mitral regurgitation Non-rheumatic tricuspid valve insufficiency On home oxygen therapy Pulmonary hypertension Restless leg syndrome Restless legs Shortness of breath on exertion Toe fracture, left Wears dentures Wears glasses Home Medications amitriptyline 100 mg tablet 100 mg PO QHS mental health 04/09/13 [History Last Taken 05/13/22 21:00] aspirin 81 mg tablet,delayed release 81 mg PO DAILY HEART HEALTH 10/25/17 [History Last Taken 05/14/22 14:00] atorvastatin 80 mg tablet 80 mg PO DAILY CHOLESTEROL 10/25/17 [History Last Taken 05/13/22 21:30] amlodipine 10 mg tablet 10 mg PO DAILY BP 06/01/18 [History Last Taken 05/14/22 08:30] doxazosin 8 mg tablet 8 mg PO QHS blood pressure 08/20/18 [History Last Taken 05/13/22 21:30] omeprazole 40 mg capsule,delayed release 40 mg PO DAILY gerd 08/20/18 [History Last Taken 05/13/22 21:30] hydralazine 100 mg tablet 100 mg PO TID diuretic 01/01/19 [History Last Taken 05/14/22 14:00] bumetanide 2 mg tablet 2 mg PO DAILY diuretic 03/14/19 [History Last Taken 05/14/22 08:30] carvedilol 6.25 mg tablet 6.25 mg PO BID blood pressure 03/14/19 [History Last Taken 05/14/22 08:30] nitroglycerin 0.4 mg sublingual tablet 0.4 mg sublingual Q5M PRN CHEST PAIN 03/14/19 [History Last Taken Unknown] albuterol sulfate 1.25 mg/3 mL solution for nebulization 1.25 mg (3 mL) inhalation 4X/DAY Wheezing #360 mL 08/17/20 [Rx Last Taken 05/14/22 08:30] albuterol sulfate 90 mcg/actuation aerosol inhaler (ProAir HFA) 2 puff inhalation Q6H PRN sob 09/30/20 [History Last Taken 05/13/22 08:30] ropinirole 0.5 mg tablet 0.5 mg PO QHS Check with primary doctor 07/07/21 [History Last Taken 05/13/22 21:30] budesonide-formoterol HFA 160 mcg-4.5 mcg/actuation aerosol inhaler (Symbicort) 2 inh inhalation BID breathing #3 ea 03/10/22 [Rx Last Taken 05/14/22 08:30] acetaminophen 500 mg tablet (Acetaminophen Extra Strength) 1,000 mg PO DAILY PRN Pain 05/04/22 [History Last Taken 05/14/22 14:00] ascorbic acid (vitamin C) 500 mg tablet 500 mg PO DAILY SUPPLEMENT 05/04/22 [History Last Taken 05/14/22 08:30] prednisone 5 mg tablet 5 mg PO DAILY INFLAMMATION 05/04/22 [History Last Taken 05/14/22 08:30] sevelamer carbonate 800 mg tablet 800 mg PO TIDCM PHOSPHATE 05/04/22 [History Last Taken 05/14/22 14:00] isosorbide mononitrate 60 mg tablet,extended release 24 hr 60 mg PO DAILY Check with primary doctor 05/14/22 [History Last Taken 05/13/22 21:30] sucralfate 1 gram tablet (Carafate) 1 g PO BID Check with primary doctor 05/14/22 [History Last Taken 05/14/22 08:30] linaclotide 145 mcg capsule (Linzess) 145 mcg PO DAILY #30 caps 05/17/22 [Rx Last Taken Unknown] prednisone 20 mg tablet 40 mg PO DAILY@0800 #11 tabs 05/17/22 [Rx Last Taken Unknown] Allergy/AdvReac Type Severity Reaction Status Date / Time Penicillins Allergy Hives Verified 05/14/22 15:13 adhesive tape AdvReac Other Verified 05/14/22 15:13 Family History Mother Heart disease Surgical History H/O four vessel coronary artery bypass graft (~04/16/13) Hx of colonoscopy Hx of esophagogastroduodenoscopy Social History household members: family Smoking Status: Former smoker quit date: 03/05/10 alcohol intake: current alcohol intake frequency: other substance use type: does not use ROS ROS Narrative See HPI Physical Exam Narrative General: Alert, Oriented x3, Cooperative, No apparent distress HEENT: Atraumatic, PERRLA, EOMI, Normocephalic Oral: Moist Mucosa Neck: Supple, No JVD Lungs: Diminished, normal air movement, no rhonchi, no wheeze, No rales Cardiovascular: Regular rate, Regular Rhythm, Normal S1, Normal S2, murmurs Abdomen: Soft, Non Tender, Non-Distended, No Hepato-splenomegaly, midline abdominal hernia Extremities: No edema, Capillary Refill Less than 3 Seconds Skin: No rashes, No breakdown Musculoskeletal: No Tenderness to Palpation of Joints or Extremities Neurological: Cranial nerves II-XII grossly intact, Motor Exam 5/5 strength throughout, Sensory exam intact to light touch and pain Psych/Mental Status: Normal Affect, Appropriate Lab / Micro Data Result Diagrams: 05/17/22 05:42 05/17/22 05:42 Labs: Laboratory Results - last 24 hr 05/17/22 05:42: WBC 10.5, RBC 3.47 L, Hgb 9.4 L, Hct 30.4 L, MCV 87.6, MCH 27.1, MCHC 30.9 L, RDW Std Deviation 57.1 H, RDW Coeff of Becca 17.7 H, Plt Count 474 H, MPV 9.2, Neut % (Auto) Not Reportable, Absolute Neuts (auto) 9.5 H, Absolute Lymphs (auto) 0.53 L, Total Counted 100, Neutrophils % (Manual) 87 H, Band Neutrophils % 3, Lymphocytes % (Manual) 5 L, Monocytes % (Manual) 3, Metamyelocytes % 1, Myelocytes % 1 H, Diff Path Review Reviewed, Platelet Estimate ADEQUATE, RBC Morphology N CYTIC, Hypochromasia 1+ 05/17/22 05:42: Sodium 137, Potassium 3.6, Chloride 98, Carbon Dioxide 29.0, Anion Gap 10, BUN 58 H, Creatinine 4.72 H, Estim Creat Clear Calc 8.15, Est GFR (MDRD) Af Amer 12 L, Est GFR (MDRD) Non-Af 10 L, BUN/Creatinine Ratio 12.3, Glucose 91, Calcium 8.4 L 05/17/22 06:45: Urine Color Yellow, Urine Clarity Clear, Urine pH 5.0, Ur Specific [place] 1.015, Urine Protein 15 H, Urine Glucose (UA) Normal, Urine Ketones 5 H, Urine Occult Blood Negative, Urine Nitrite Negative, Urine Bilirubin 1 H, Urine Urobilinogen Normal, Ur Leukocyte Esterase 100 H, Urine RBC 0 SEEN, Urine WBC 0 SEEN, Ur Squamous Epith Cells 0 SEEN, Urine Bacteria 0 SEEN, Urine Mucus 0 SEEN Assessment & Plan Assessment/Plan (1) Acute exacerbation of chronic obstructive pulmonary disease: (2) Anemia: PLAN: Plan #Acute on chronic hypoxia likely secondary to acute exacerbation of COPD -Chest x-ray with small pleural effusions but no overt infiltrate -Continue DuoNebs and Methylpred for 4 doses followed by oral prednisone -Mucinex -Due to her fevers despite antibiotics suspect there could be a viral component, no infiltrate suggestive of pneumonia, will continue Levaquin #Recent GI bleed -No current signs or symptoms of bleeding -Monitor H&H -Continue PPI #End-stage renal disease on HD -Consult nephrology #DVT ppx: scds 2/2 recent GIB Charges/Coding Visit Charges Inpatient E&M: 74738 Init Hosp L3
[2022-05-16] MEDS: Electrolyte Solution/Peg's 4000 ML 2000 ML PO (20:29)
[2022-05-16] MEDS: Amitriptyline 100 MG Tablet PO (21:47)
[2022-05-16] MEDS: Pramipexole Di-HCl 0.25 MG Tablet PO (21:47)
[2022-05-16] MEDS: Atorvastatin Calcium 80 MG Tablet PO (21:47)
[2022-05-17] VITALS (10 sets, daily range): BP systolic 143–163; BP diastolic 61–74; PULSE 77–94; RESP 16–20; TEMP 36.4–37; O2SAT 94–96; BMI 29.0
[2022-05-17] MEDS: levETIRAcetam 500 MG Tablet PO (06:09)
[2022-05-17] MEDS: hydrALAZINE 50 MG Tablet 100 MG PO ×2 (06:09→16:02)
[2022-05-17] MEDS: Sucralfate 1 GM Tablet PO (06:09)
[2022-05-17 06:13] LABS: Hematocrit 30.4 % (37-47); Hemoglobin 9.4 g/dL (12.0-15.0); Mean Corp Hgb Conc 30.9 g/dL (32-36); Mean Corpuscular Hgb 27.1 pg (27.0-32.0); Mean Corpuscular Volume 87.6 fL (81-99); Mean Platelet Vol. 9.2 fl (6.2-12.0); POSITIVE COUNT YES; POSITIVE MORPHOLOGY YES; Platelet Count 474 K/mm3 (150-450); RBC Distribution Width CV 17.7 % (11.6-14.6); RBC Distribution Width SD 57.1 fl (35.1-43.9); Red Blood Count 3.47 M/mm3 (4.2-5.4); White Blood Count 10.5 K/mm3 (4.4-11.0)
[2022-05-17 06:15] LABS: Differential Indicated MANUAL DIFF
[2022-05-17 06:40] LABS: Anion Gap 10 (5-15); BUN 58 mg/dL (7-18); BUN/Creat Ratio 12.3 RATIO (10-20); Calcium,Total 8.4 mg/dL (8.5-10.1); Chloride 98 mmol/L (98-107); Creatinine, Serum 4.72 mg/dL (0.55-1.02); EST Glomerular Filtration Rate 10 mL/min (>60); Est Glom Filt Rate - Afr Amer 12 mL/min (>60); Estimated Creatinine Clearance 8.15 ml/min; Glucose 91 mg/dL (74-106); Potassium 3.6 mmol/L (3.5-5.1); Sodium Level 137 mmol/L (136-145)
[2022-05-17 06:52] LABS: Metamyelocyte 1 % (0-1); Myelocyte 1 % (0-0); Neutrophil-Band 3 % (0-5); Neutrophil-Segmented 87 % (47-70); Total Cells Counted 100 (MANUAL DIFF)
[2022-05-17 06:53] LABS: Hypochromasia 1+; Lymphocyte 5 % (19-41); Monocyte 3 % (0-10); Platelet Estimate ADEQUATE (ADEQ); Red Cell Morphology N CYTIC NORMAL (NORM C&C)
[2022-05-17 06:54] LABS: Absolute Lymphocyte Count 0.53 X10^3/uL (0.83-4.51); Absolute Neutrophil Count 9.5 X10^3/uL (2.0-7.7); Lymphocyte # 0.53 X10^3/ul (0.83-4.51); Neutrophil # 9.48 X10^3/uL (2.7-7.7)
[2022-05-17] MEDS: Ipratropium/Albuterol Sulfate 3 ML AMPUL.NEB INHALATION ×3 (07:10→15:25)
[2022-05-17 07:14] LABS: Bacteria 0 SEEN /hpf (None Seen); Mucous, Urine 0 SEEN /hpf (<or=2+); Red Blood Cells-Urine 0 SEEN /hpf (0-5); Squamous Epithelial Cells - UA 0 SEEN /hpf (5-10); White Blood Cells 0 SEEN /hpf (0-5)
[2022-05-17 07:18] LABS: Color, Urine Yellow (Yellow); Glucose, Dipstick Normal (Normal); Ketone-Dipstick 5 mg/dl (Negative); Leukocyte Esterase-Dipstick 100 /ul (Negative); Nitrite-Dipstick Negative (Negative); Occult Blood-Urine Negative /ul (Negative); Protein-Dipstick 15 mg/dl (Negative); Specific Gravity, Urine 1.015 (1.002-1.030); Urine Clarity Clear (Clear); Urine Urobilinogen Normal (Normal)
[2022-05-17 07:20] LABS: Urine Bilirubin Dipstick 1 mg/dL (Negative)
[2022-05-17] MEDS: Carvedilol 6.25 MG Tablet PO (08:00)
[2022-05-17] MEDS: Bumetanide 2 MG Tablet PO (08:00)
[2022-05-17] MEDS: guaiFENesin 1,200 MG Tablet 1200 MG PO (08:01)
[2022-05-17] MEDS: predniSONE 20 MG Tablet 40 MG PO (08:01)
[2022-05-17] MEDS: Isosorbide Mononitrate 60 MG Tablet PO (08:01)
[2022-05-17] MEDS: Pantoprazole Sodium 40 MG Tablet PO (08:01)
[2022-05-17] MEDS: amLODIPine 10 MG Tablet PO (08:02)
--- NOTE | 2022-05-17 09:22 | DCINST_ITS ---
Discharge Instructions Diet Discharge Diet: Renal Diet Activity Discharge Activity: Return to Normal Activity Dressing / Incision Call your doctor if you observe: Fever of 101 or Higher, Shortness of breath, Dizziness, Fainting spells, Swelling in the ankles, Chest pain and Increased palpitations (irregular heartbeat) Follow Up Care Test Results: Test results from this visit will be discussed in further detail at your follow- up appointment, if applicable. Discharge Plan Admission Admit Date/Time: 05/14/22 18:29 Attending Provider: Quinten Chung Primary Care Provider: Levi Laird Consulting Providers: Yarely Sandra ; Siobhan Mike ; Friend,Kameron ; Lucien Ferreira Discharge Orders/Prescriptions Prescriptions: New prednisone 20 mg Tablet 40 mg PO DAILY@0800 Qty: 11 0RF Rx Instructions: Take 2 tablets daily for 3 days then 1 tablet daily for 3 days then half tablet daily for 4 days then resume your 5 mg of prednisone daily. Continued albuterol sulfate [ProAir HFA] 90 mcg/actuation HFA aerosol inhaler 2 puff inhalation Q6H PRN (Reason: sob) ropinirole 0.5 mg tablet 0.5 mg PO QHS Label Comments: TAKE 1 TABLET BY MOUTH ONCE DAILY budesonide-formoterol [Symbicort] 160-4.5 mcg/actuation HFA aerosol inhaler 2 inh INHALATION BID Qty: 3 3RF Rx Instructions: administer with spacer, rinse mouth after each use amitriptyline 100 MG tablet 100 mg PO QHS Label Comments: MENTAL HEALTH atorvastatin 80 MG tablet 80 mg PO DAILY Label Comments: amlodipine 10 MG tablet 10 mg PO DAILY omeprazole 40 MG capsule,delayed release(DR/EC) 40 mg PO DAILY Hold Instructions: Resume on 05/08/21. doxazosin 8 MG tablet 8 mg PO QHS hydralazine 100 mg tablet 100 mg PO TID nitroglycerin 0.4 MG tablet, sublingual 0.4 mg SL Q5M PRN (Reason: CHEST PAIN) carvedilol 6.25 MG tablet 6.25 mg PO BID bumetanide 2 MG tablet 2 mg PO DAILY prednisone 5 mg tablet 5 mg PO DAILY acetaminophen [Acetaminophen Extra Strength] 500 mg Tablet 1,000 mg PO DAILY PRN (Reason: Pain) sevelamer carbonate 800 mg tablet 800 mg PO TIDCM ascorbic acid (vitamin C) 500 MG tablet 500 mg PO DAILY sucralfate [Carafate] 1 gram tablet 1 g PO BID isosorbide mononitrate 60 mg tablet extended release 24 hr 60 mg PO DAILY albuterol sulfate 1.25 mg/3 mL solution for nebulization 1.25 mg INHALATION 4X/DAY Qty: 360 6RF Held aspirin 81 MG tablet 81 mg PO DAILY Hold Instructions: Resume on 05/24/22. Discontinued levofloxacin 500 mg tablet 500 mg PO Q48H Referrals / Follow Up: Kameron Chan DO [Med Staff - Active Staff] - Within 2 Weeks Levi Laird MD [Primary Care Provider] - Within 1 Week Disposition Disposition (needs filled in before D/C Order can be placed): Home, Self Care
--- NOTE | 2022-05-17 09:37 | CASEMGMT ---
Pt is not requiring increased oxygen for updated rx.
--- NOTE | 2022-05-17 09:45 | PCM.PN.REN ---
Subjective Subjective Following for ESRD. The patient is seen during hemodialysis treatment. She denies cramping, nausea, or dizziness. Dyspnea has improved and she is back on her usual 1.5 L nasal cannula oxygen. Objective Data Objective Data Vital Signs: Vital Signs Temp Pulse Resp BP Pulse Ox O2 Del Method O2 Flow Rate 98.0 F 78 18 163/74 H 96 Nasal Cannula 1.5 05/17/22 08:45 05/17/22 08:45 05/17/22 08:45 05/17/22 08:45 05/17/22 07:57 05/17/22 08:45 05/17/22 08:45 FiO2 1.5 05/14/22 16:42 Oxygen Flow Rate (L/min) 1.5 Oxygen Delivery Method Nasal Cannula Weight: 72 kg Body Mass Index (BMI) 29.0 Intake & Output: Intake and Output for Last 24 Hours 05/15/22 05/16/22 05/17/22 23:59 23:59 23:59 Intake Total 1583 / 1883 860 / 1260 700 / 700 Balance 1583 / 1883 860 / 1260 700 / 700 Lab / Micro Data Result Diagrams: 05/17/22 05:42 05/17/22 05:42 Labs: Laboratory Results - last 24 hr 05/17/22 05:42: WBC 10.5, RBC 3.47 L, Hgb 9.4 L, Hct 30.4 L, MCV 87.6, MCH 27.1, MCHC 30.9 L, RDW Std Deviation 57.1 H, RDW Coeff of Becca 17.7 H, Plt Count 474 H, MPV 9.2, Neut % (Auto) Not Reportable, Absolute Neuts (auto) 9.5 H, Absolute Lymphs (auto) 0.53 L, Total Counted 100, Neutrophils % (Manual) 87 H, Band Neutrophils % 3, Lymphocytes % (Manual) 5 L, Monocytes % (Manual) 3, Metamyelocytes % 1, Myelocytes % 1 H, Diff Path Review May , Platelet Estimate ADEQUATE, RBC Morphology N CYTIC, Hypochromasia 1+ 05/17/22 05:42: Sodium 137, Potassium 3.6, Chloride 98, Carbon Dioxide 29.0, Anion Gap 10, BUN 58 H, Creatinine 4.72 H, Estim Creat Clear Calc 8.15, Est GFR (MDRD) Af Amer 12 L, Est GFR (MDRD) Non-Af 10 L, BUN/Creatinine Ratio 12.3, Glucose 91, Calcium 8.4 L 05/17/22 06:45: Urine Color Yellow, Urine Clarity Clear, Urine pH 5.0, Ur Specific [place] 1.015, Urine Protein 15 H, Urine Glucose (UA) Normal, Urine Ketones 5 H, Urine Occult Blood Negative, Urine Nitrite Negative, Urine Bilirubin 1 H, Urine Urobilinogen Normal, Ur Leukocyte Esterase 100 H, Urine RBC 0 SEEN, Urine WBC 0 SEEN, Ur Squamous Epith Cells 0 SEEN, Urine Bacteria 0 SEEN, Urine Mucus 0 SEEN Micro: Microbiology 05/14/22 20:50 Mucosa - Nose Respiratory Panel (PCR) - Final Physical Exam Narrative General: Alert, oriented, no apparent distress HEENT: Atraumatic, normocephalic Neck: Supple, no JVD Respiratory: Clear anteriorly, faint rales noted posterior bilateral upper lobes Cardiovascular: Normal S1, S2. There is a 3/6 systolic murmur GI: Soft, nontender, nondistended Extremities: No edema Right chest tunneled HD catheter dressing clean, dry and intact Assessment & Plan Assessment/Plan (1) End-stage renal disease on hemodialysis: (2) Anemia: (3) Acute on chronic respiratory failure with hypoxia: (4) HTN (hypertension): (5) Acute exacerbation of chronic obstructive pulmonary disease: (6) Pleural effusion: PLAN: Plan Impression/Plan: The patient is a 76-year-old woman with past history of end-stage renal disease, restless leg syndrome, anemia, COPD, pulmonary hypertension, CAD status post CABG with heart failure with preserved ejection fraction, ELAINE, and mitral regurgitation.? The patient is admitted to the hospital? 05/14/2022 with acute on chronic hypoxic respiratory failure due to exacerbation of COPD.? Nephrology is following for management of dialysis in ESRD patient. ESRD. The patient dialyzes on a MWF schedule at [facility] [place]. I prescribed and saw the patient on hemodialysis today. F160 dialyzer is used with blood flow 400 and dialysate flow 600. 3K dialysate is used. We will remove 3 L of fluid with ultrafiltration. Anemia in chronic kidney disease. Hemoglobin is low but better at 9.4 g/dL. She should restart KALPANA at her outpatient dialysis unit. Continue to monitor hemoglobin. Hypertension. The patient is on amlodipine, carvedilol, and hydralazine. BP is reasonably controlled.? Ultrafiltration with dialysis today should also help. We will continue to monitor BP. Acute on chronic hypoxic respiratory failure.? The patient is being treated for COPD exacerbation with corticosteroid and bronchodilator.? We will ultrafilter the patient with dialysis today since she also has small pleural effusion. Disposition: The patient should be able to be discharged today from nephrology standpoint after dialysis.
--- NOTE | 2022-05-17 10:23 | PN.CC_ITS ---
Assessment & Plan Assessment/Plan (1) Secondary pulmonary hypertension: (2) Chronic diastolic heart failure: PLAN: Plan RECOMMENDATIONS: 1. Defer to GI on work-up 2. Monitor off antibiotics 3. Continue therapeutic substitution for baseline respiratory medications 4. Likely okay to treat with a 5-day burst of prednisone 5. Walking oximetry prior to discharge 6. Follow-up in pulmonary as previously scheduled IMPRESSIONS: 1. Chronic hypoxic respiratory failure with acute exacerbation Patient with exacerbation and symptoms, but etiology is unclear at this time. Patient does have an echocardiogram showing significantly elevated pulmonary artery pressures at 63 mmHg. This would be improved by volume removal, which patient had hemodialysis yesterday. Anemia will also lead to significant worsening of symptomatology. Patient does have a history of a recent GI bleed, but appears to have incremented appropriately with blood transfusion yesterday. Patient is feeling very good today, so this complicates the ability to tell an etiology at this time. Patient has received a full course of Levaquin and this was discontinued. Patient should be weaned on prednisone down to her baseline 5 mg 2.??Type II pulmonary hypertension/obstructive sleep apnea Patient with moderate to severe elevation on right heart cath in the past.? Acute hypoxemia would exacerbate patient's underlying cor pulmonale could lead to flash pulmonary edema.? Patient saturations are doing well at this time.? We will continue to monitor.? Patient appears to be responding well to volume removal with hemodialysis therapy.? Patient should have a walking oximetr y prior to discharge.? It will be impaired if the patient's saturations stay above 90% at all times, even with ambulation.? Patient would benefit from the use of CPAP at night with sleep, but feels this is not necessary.? This is complicated by relatively severe MVR and diffuse aortic valve calcification.? 3.??Hypertension/diabetes mellitus/iron deficiency anemia/advanced age/morbid obesity/recent GI bleed Complicates care, management, recovery and prognosis.? Patient was significant improvement following blood transfusion.? Continue to monitor blood sugars closely.? Encourage weight loss. Subjective Subjective Patient did well overnight. Patient seen while on hemodialysis. Patient states her respiratory status remained stable. Patient is not reporting any chest pain. Per dialysis nurse, patient has been tolerating dialysis well. Objective Data Objective Data Vital Signs: Vital Signs Temp Pulse Resp BP Pulse Ox O2 Del Method O2 Flow Rate 36.7 C 78 18 163/74 H 96 Nasal Cannula 1.5 05/17/22 08:45 05/17/22 08:45 05/17/22 08:45 05/17/22 08:45 05/17/22 07:57 05/17/22 08:45 05/17/22 08:45 FiO2 1.5 05/14/22 16:42 Oxygen Flow Rate (L/min) 1.5 Oxygen Delivery Method Nasal Cannula Weight: 72 kg Body Mass Index (BMI) 29.0 Intake & Output: Intake and Output for Last 24 Hours 05/15/22 05/16/22 05/17/22 23:59 23:59 23:59 Intake Total 1583 / 1883 860 / 1260 700 / 700 Balance 1583 / 1883 860 / 1260 700 / 700 Lab / Micro Data Attestation: I reviewed the patient's lab results. Result Diagrams: 05/17/22 05:42 05/17/22 05:42 Labs: Laboratory Results - last 24 hr 05/17/22 05:42: WBC 10.5, RBC 3.47 L, Hgb 9.4 L, Hct 30.4 L, MCV 87.6, MCH 27.1, MCHC 30.9 L, RDW Std Deviation 57.1 H, RDW Coeff of Becca 17.7 H, Plt Count 474 H, MPV 9.2, Neut % (Auto) Not Reportable, Absolute Neuts (auto) 9.5 H, Absolute Lymphs (auto) 0.53 L, Total Counted 100, Neutrophils % (Manual) 87 H, Band Neutrophils % 3, Lymphocytes % (Manual) 5 L, Monocytes % (Manual) 3, Metamyelocytes % 1, Myelocytes % 1 H, Diff Path Review May , Platelet Estimate ADEQUATE, RBC Morphology N CYTIC, Hypochromasia 1+ 05/17/22 05:42: Sodium 137, Potassium 3.6, Chloride 98, Carbon Dioxide 29.0, Anion Gap 10, BUN 58 H, Creatinine 4.72 H, Estim Creat Clear Calc 8.15, Est GFR (MDRD) Af Amer 12 L, Est GFR (MDRD) Non-Af 10 L, BUN/Creatinine Ratio 12.3, Glucose 91, Calcium 8.4 L 05/17/22 06:45: Urine Color Yellow, Urine Clarity Clear, Urine pH 5.0, Ur Specific [place] 1.015, Urine Protein 15 H, Urine Glucose (UA) Normal, Urine Ketones 5 H, Urine Occult Blood Negative, Urine Nitrite Negative, Urine Fabricio irubin 1 H, Urine Urobilinogen Normal, Ur Leukocyte Esterase 100 H, Urine RBC 0 SEEN, Urine WBC 0 SEEN, Ur Squamous Epith Cells 0 SEEN, Urine Bacteria 0 SEEN, Urine Mucus 0 SEEN Micro: Microbiology 05/14/22 20:50 Mucosa - Nose Respiratory Panel (PCR) - Final Physical Exam Const alert, oriented x3, no apparent distress and well nourished General Appearance: cooperative HEENT normocephalic, head/scalp atraumatic, hearing grossly normal bilaterally and moist oral mucous membranes Eyes PERRL, EOMs intact bilaterally and conjunctivae normal Neck no lymphadenopathy and supple Chest inspection of chest normal Resp normal respiratory effort, no retractions and no use of accessory muscles Auscultation: diminished lung sounds; Negative for rales, rhonchi or wheezes Cardio regular rate, regular rhythm, S1 normal heart sound, no rub, no gallops and no clicks; Negative for S2 normal heart sound Heart Sounds: murmur systolic IV/ loud mid left sternal border GI normal to inspection, nondistended, normoactive bowel sounds and soft to palpation; Negative for non-tender Extremity no clubbing, cyanosis or edema General Extremity: clubbing Skin Skin Narrative: Skin with darkish hue and ecchymosis scattered, tunneled dialysis catheter in the right chest appears clean, dry and intact Neuro oriented x3, CN's II-XII intact bilaterally, moves all extremities and no focal motor deficits Psych cooperative and affect normal Charges/Coding Visit Charges Inpatient E&M: 37961 Subs Hosp L2
[2022-05-17] MEDS: Heparin 10,000 UNITS/10 ML Vial 4000 UNITS IV (12:20)
--- NOTE | 2022-05-17 12:32 | DS.PCM_ITS ---
Providers Date of Admission: 05/14/22 Primary Care Physician: Dr. Levi Laird MD Consultations 05/15/22 03:43 Consult: Nephrology Routine Consulting Provider: Yarely Sandra Reason for Consult: dialysis EMERGENT Consult: No Notified: Yes Date Notified: 05/15/22 Time Notified: 03:43 Method of Notification: Answering Service 05/15/22 15:04 Consult: Gastroenterology Routine Consulting Provider: Kameron Chan Reason for Consult: Continued anemia EMERGENT Consult: No Notified: Yes Date Notified: 05/15/22 Time Notified: 15:27 Method of Notification: Text Consult: Manager Statistics / Pulmonary Medicine Routine Consulting Provider: Lucien Ferreira Reason for Consult: patient known to you EMERGENT Consult: No Notified: Yes Date Notified: 05/15/22 Time Notified: 15:30 Method of Notification: Text Reason For Visit: AECOPD Diagnosis Discharge Diagnosis (1) End-stage renal disease on hemodialysis: Status: Acute Code(s): N18.6 - End stage renal disease; Z99.2 - Dependence on renal dialysis (2) Anemia: Status: Acute Code(s): D64.9 - Anemia, unspecified (3) Acute on chronic respiratory failure with hypoxia: Status: Chronic Code(s): J96.21 - Acute and chronic respiratory failure with hypoxia (4) HTN (hypertension): Status: Chronic Code(s): I10 - Essential (primary) hypertension (5) Acute exacerbation of chronic obstructive pulmonary disease: Status: Chronic Code(s): J44.1 - Chronic obstructive pulmonary disease with (acute) exacerbation (6) Pleural effusion: Status: Acute Code(s): J90 - Pleural effusion, not elsewhere classified Medications at Discharge Home Medications amitriptyline 100 mg tablet 100 mg PO QHS mental health 04/09/13 aspirin 81 mg tablet,delayed release 81 mg PO DAILY HEART HEALTH 10/25/17 atorvastatin 80 mg tablet 80 mg PO DAILY CHOLESTEROL 10/25/17 amlodipine 10 mg tablet 10 mg PO DAILY BP 06/01/18 doxazosin 8 mg tablet 8 mg PO QHS blood pressure 08/20/18 omeprazole 40 mg capsule,delayed release 40 mg PO DAILY gerd 08/20/18 hydralazine 100 mg tablet 100 mg PO TID diuretic 10/30/19 bumetanide 2 mg tablet 2 mg PO DAILY diuretic 03/14/19 carvedilol 6.25 mg tablet 6.25 mg PO BID blood pressure 03/14/19 nitroglycerin 0.4 mg sublingual tablet 0.4 mg sublingual Q5M PRN CHEST PAIN 03/14/19 albuterol sulfate 1.25 mg/3 mL solution for nebulization 1.25 mg (3 mL) inhala tion 4X/DAY Wheezing #360 mL 08/17/20 albuterol sulfate 90 mcg/actuation aerosol inhaler (ProAir HFA) 2 puff inhalation Q6H PRN sob 09/30/20 ropinirole 0.5 mg tablet 0.5 mg PO QHS Check with primary doctor 07/07/21 budesonide-formoterol HFA 160 mcg-4.5 mcg/actuation aerosol inhaler (Symbicort) 2 inh inhalation BID breathing #3 ea 03/10/22 acetaminophen 500 mg tablet (Acetaminophen Extra Strength) 1,000 mg PO DAILY PRN Pain 05/04/22 ascorbic acid (vitamin C) 500 mg tablet 500 mg PO DAILY SUPPLEMENT 05/04/22 prednisone 5 mg tablet 5 mg PO DAILY INFLAMMATION 05/04/22 sevelamer carbonate 800 mg tablet 800 mg PO TIDCM PHOSPHATE 05/04/22 isosorbide mononitrate 60 mg tablet,extended release 24 hr 60 mg PO DAILY Check with primary doctor 05/14/22 sucralfate 1 gram tablet (Carafate) 1 g PO BID Check with primary doctor 05/14/22 prednisone 20 mg tablet 40 mg PO DAILY@0800 #11 tabs 05/17/22 Hospital Course Operations None Procedures 2-D Echocardiogram Summary of Care Provided Minutes Spent on Discharge: 37 Hospital Course: Per HPI: JULISSA VEGA, is a 76 F who with history of recent upper GI bleed with AVMs found on admission 05/04, pneumonia on admission 05/07 on Levaquin, end-stage renal disease on hemodialysis, ELAINE, heart failure with preserved ejection fraction who presented to [facility] 05/14/2022 with increasing shortness of breath and congestion as well as temperature of 102 degrees at home yesterday and today.? In the ED she was 89% on 3.5 L, chest x-ray with small ple ural effusions without pulmonary infiltrate.? Hospitalist contacted for admission.? Patient seen with family member at bedside and they do endorse increasing shortness of breath and possible can congestion or feeling like she has to cough something up for the past 2 days with fever for the past 2 days with a Tmax of 102 at home.? Additional complaint of constipation for 4 to 5 days.? Sometimes notes that her shortness of breath is worse when lying flat. Hospital Course: 1.? Acute on chronic hypoxic respiratory failure from COPD exacerbation ? Can continue with Solu-Medrol and then transition to prednisone and inhalers ? Respiratory issues have resolved ? She was recently hospitalized for pneumonia, will discontinue Levaquin on discharge, pulmonology agrees ? I discussed with her the plan for discharge today she expressed understanding of the risk benefits going home and would like to go home today. I do recommend that she follow-up with her PCP as an outpatient in 3 to [address] her on a short steroid taper and then she can resume her home prednisone, most of her shortness of breath is likely related to volume overload as she improved both with blood products and dialysis. 2.? HTN/HLD/CAD status post CABG/chronic diastolic CHF ? Blood pressures are stable ? Can resume all of her home blood pressure medications ? Can continue with Lipitor ? We will obtain a repeat echo to differentiate between truly being a COPD exacerbation worse versus an exacerbation of her heart failure ? Continue with Bumex 3. Chronic GI bleed in the setting of anemia of chronic disease secondary to end-stage renal disease on dialysis/GERD ? She had an EGD back in September 2021 which showed a Dieulafoy's lesion as well as multiple gastric AVMs that were treated ? Continue with PPI, she had an EGD about 2 weeks ago that showed an ulcer with a visible vessel that was treated ? No signs of significant hemorrhage, vital signs are all stable and hemoglobin is 9.6 today ? She will need to follow-up with GI as an outpatient for a capsule endoscopy, this was discussed at length with the family ? We will consult nephrology for dialysis, and may transfuse during dialysis ? Per family, her hemoglobin at dialysis was in the 12's in March and has steadily been dropping despite the absence of overt bleeding Physical Exam Narrative General: Alert, Oriented x3, Cooperative, No apparent distress HEENT: Atraumatic, PERRLA, EOMI, Normocephalic Oral: Moist Mucosa Neck: Supple, No JVD Lungs: Diminished, normal air movement, no rhonchi, no wheeze, No rales Cardiovascular: Regular rate, Regular Rhythm, Normal S1, Normal S2, murmurs Abdomen: Soft, Non Tender, Non-Distended, No Hepato-splenomegaly, midline abdominal hernia Extremities: No edema, Capillary Refill Less than 3 Seconds Skin: No rashes, No breakdown Musculoskeletal: No Tenderness to Palpation of Joints or Extremities Neurological: Cranial nerves II-XII grossly intact, Motor Exam 5/5 strength throughout, Sensory exam intact to light touch and pain Psych/Mental Status: Normal Affect, Appropriate Weight / BMI Weight Weight: 158 lb 11.725 oz Body Mass Index (BMI) 29.0 ABG / Lab / Microbiology Data Result Diagrams: 05/17/22 05:42 05/17/22 05:42 Laboratory: Laboratory Results - last 24 hr 05/17/22 05:42: WBC 10.5, RBC 3.47 L, Hgb 9.4 L, Hct 30.4 L, MCV 87.6, MCH 27.1, MCHC 30.9 L, RDW Std Deviation 57.1 H, RDW Coeff of Becca 17.7 H, Plt Count 474 H, MPV 9.2, Neut % (Auto) Not Reportable, Absolute Neuts (auto) 9.5 H, Absolute Lymphs (auto) 0.53 L, Total Counted 100, Neutrophils % (Manual) 87 H, Band Neutrophils % 3, Lymphocytes % (Manual) 5 L, Monocytes % (Manual) 3, Metam yelocytes % 1, Myelocytes % 1 H, Diff Path Review July, Platelet Estimate ADEQUATE, RBC Morphology N CYTIC, Hypochromasia 1+ 05/17/22 05:42: Sodium 137, Potassium 3.6, Chloride 98, Carbon Dioxide 29.0, Anion Gap 10, BUN 58 H, Creatinine 4.72 H, Estim Creat Clear Calc 8.15, Est GFR (MDRD) Af Amer 12 L, Est GFR (MDRD) Non-Af 10 L, BUN/Creatinine Ratio 12.3, Glucose 91, Calcium 8.4 L 05/17/22 06:45: Urine Color Yellow, Urine Clarity Clear, Urine pH 5.0, Ur Specific [place] 1.015, Urine Protein 15 H, Urine Glucose (UA) Normal, Urine Ketones 5 H, Urine Occult Blood Negative, Urine Nitrite Negative, Urine Bilirubin 1 H, Urine Urobilinogen Normal, Ur Leukocyte Esterase 100 H, Urine RBC 0 SEEN, Urine WBC 0 SEEN, Ur Squamous Epith Cells 0 SEEN, Urine Bacteria 0 SEEN, Urine Mucus 0 SEEN Microbiology: Microbiology 05/14/22 20:50 Mucosa - Nose Respiratory Panel (PCR) - Final D/C Instructions Discharge Diet: Renal Diet Call your doctor if you observe: Fever of 101 or Higher, Shortness of breath, Dizziness, Fainting spells, Swelling in the ankles, Chest pain and Increased palpitations (irregular heartbeat) Meaningful Use Info Meaningful Use Diagnoses (Choose all that apply): None applicable Discharge Plan Admission Admit Date/Time: 05/14/22 18:29 Attending Provider: Quinten Chung Primary Care Provider: Levi Laird Consulting Providers: Yarely Sandra ; Siobhan Mike ; Friend,Kameron ; Lucien Ferreira Discharge Orders/Prescriptions Prescriptions: New prednisone 20 mg Tablet 40 mg PO DAILY@0800 Qty: 11 0RF Rx Instructions: Take 2 tablets daily for 3 days then 1 tablet daily for 3 days then half tablet daily for 4 days then resume your 5 mg of prednisone daily. Continued albuterol sulfate [ProAir HFA] 90 mcg/actuation HFA aerosol inhaler 2 puff inhalation Q6H PRN (Reason: sob) ropinirole 0.5 mg tablet 0.5 mg PO QHS Label Comments: TAKE 1 TABLET BY MOUTH ONCE DAILY budesonide-formoterol [Symbicort] 160-4.5 mcg/actuation HFA aerosol inhaler 2 inh INHALATION BID Qty: 3 3RF Rx Instructions: administer with spacer, rinse mouth after each use amitriptyline 100 MG tablet 100 mg PO QHS Label Comments: MENTAL HEALTH atorvastatin 80 MG tablet 80 mg PO DAILY Label Comments: amlodipine 10 MG tablet 10 mg PO DAILY omeprazole 40 MG capsule,delayed release(DR/EC) 40 mg PO DAILY Hold Instructions: Resume on 05/08/21. doxazosin 8 MG tablet 8 mg PO QHS hydralazine 100 mg tablet 100 mg PO TID nitroglycerin 0.4 MG tablet, sublingual 0.4 mg SL Q5M PRN (Reason: CHEST PAIN) carvedilol 6.25 MG tablet 6.25 mg PO BID bumetanide 2 MG tablet 2 mg PO DAILY prednisone 5 mg tablet 5 mg PO DAILY acetaminophen [Acetaminophen Extra Strength] 500 mg Tablet 1,000 mg PO DAILY PRN (Reason: Pain) sevelamer carbonate 800 mg tablet 800 mg PO TIDCM ascorbic acid (vitamin C) 500 MG tablet 500 mg PO DAILY sucralfate [Carafate] 1 gram tablet 1 g PO BID isosorbide mononitrate 60 mg tablet extended release 24 hr 60 mg PO DAILY albuterol sulfate 1.25 mg/3 mL solution for nebulization 1.25 mg INHALATION 4X/DAY Qty: 360 6RF Held aspirin 81 MG tablet 81 mg PO DAILY Hold Instructions: Resume on 05/24/22. Discontinued levofloxacin 500 mg tablet 500 mg PO Q48H Referrals / Follow Up: Kameron Chan DO [Med Staff - Active Staff] - Within 2 Weeks Levi Laird MD [Primary Care Provider] - Within 1 Week Disposition Disposition (needs filled in before D/C Order can be placed): Home, Self Care Charges/Coding Visit Charges Inpatient E&M: 10828 Disch Hosp >30min
--- NOTE | 2022-05-17 12:35 | DIALYSIS ---
Hemodialysis complete. 3 hour run, 3k bath. Net fluid removed = 3000 ml. Patient tolerated HD tx well. Right chest CVC: Site benign. Biofilm dressing dry and intact. Lumen flushed with NS, filled to volume with Heparin, capped and clamped. Report given to primary RN, Kellie Toledo
[2022-05-17 13:49] LABS: Pathologist Review Reviewed
--- NOTE | 2022-05-17 17:47 | PCM.PROGNOTE ---
Subjective Subjective Patient received 2 units of packed red blood cells and underwent dialysis today. Objective Data Objective Data Vital Signs: Vital Signs Temp Pulse Resp BP Pulse Ox O2 Del Method O2 Flow Rate 98.6 F 83 20 H 143/67 H 94 Nasal Cannula 1.5 05/17/22 16:04 05/17/22 16:04 05/17/22 16:04 05/17/22 16:04 05/17/22 16:04 05/17/22 16:04 05/17/22 16:04 FiO2 1.5 05/14/22 16:42 Oxygen Flow Rate (L/min) 1.5 Oxygen Delivery Method Nasal Cannula Weight: 158 lb 11.725 oz Body Mass Index (BMI) 29.0 Intake & Output: Intake and Output for Last 24 Hours 05/15/22 05/16/22 05/17/22 23:59 23:59 23:59 Intake Total 1583 / 1883 860 / 1260 1060 / 1060 Output Total 6000 / 6000 Balance 1583 / 1883 860 / 1260 -4940 / -4940 Lab / Micro Data Result Diagrams: 05/17/22 05:42 05/17/22 05:42 Labs: Laboratory Results - last 24 hr 05/17/22 05:42: WBC 10.5, RBC 3.47 L, Hgb 9.4 L, Hct 30.4 L, MCV 87.6, MCH 27.1, MCHC 30.9 L, RDW Std Deviation 57.1 H, RDW Coeff of Becca 17.7 H, Plt Count 474 H, MPV 9.2, Neut % (Auto) Not Reportable, Absolute Neuts (auto) 9.5 H, Absolute Lymphs (auto) 0.53 L, Total Counted 100, Neutrophils % (Manual) 87 H, Band Neutrophils % 3, Lymphocytes % (Manual) 5 L, Monocytes % (Manual) 3, Metamyelocytes % 1, Myelocytes % 1 H, Diff Path Review Reviewed, Platelet Estimate ADEQUATE, RBC Morphology N CYTIC, Hypochromasia 1+ 05/17/22 05:42: Sodium 137, Potassium 3.6, Chloride 98, Carbon Dioxide 29.0, Anion Gap 10, BUN 58 H, Creatinine 4.72 H, Estim Creat Clear Calc 8.15, Est GFR (MDRD) Af Amer 12 L, Est GFR (MDRD) Non-Af 10 L, BUN/Creatinine Ratio 12.3, Glucose 91, Calcium 8.4 L 05/17/22 06:45: Urine Color Yellow, Urine Clarity Clear, Urine pH 5.0, Ur Specific [place] 1.015, Urine Protein 15 H, Urine Glucose (UA) Normal, Urine Ketones 5 H, Urine Occult Blood Negative, Urine Nitrite Negative, Urine Bilirubin 1 H, Urine Urobilinogen Normal, Ur Leukocyte Esterase 100 H, Urine RBC 0 SEEN, Urine WBC 0 SEEN, Ur Squamous Epith Cells 0 SEEN, Urine Bacteria 0 SEEN, Urine Mucus 0 SEEN Micro: Microbiology 05/14/22 20:50 Mucosa - Nose Respiratory Panel (PCR) - Final Physical Exam Narrative General: Alert, Oriented x3, Cooperative, No apparent distress HEENT: Atraumatic, PERRLA, EOMI, Normocephalic Oral: Moist Mucosa Neck: Supple, No JVD Lungs: Diminished, normal air movement, no rhonchi, no wheeze, No rales Cardiovascular: Regular rate, Regular Rhythm, Normal S1, Normal S2, murmurs Abdomen: Soft, Non Tender, Non-Distended, No Hepato-splenomegaly, midline abdominal hernia Extremities: No edema, Capillary Refill Less than 3 Seconds Skin: No rashes, No breakdown Musculoskeletal: No Tenderness to Palpation of Joints or Extremities Neurological: Cranial nerves II-XII grossly intact, Motor Exam 5/5 strength throughout, Sensory exam intact to light touch and pain Psych/Mental Status: Normal Affect, Appropriate Assessment & Plan Assessment/Plan (1) Acute exacerbation of chronic obstructive pulmonary disease: PLAN: Plan Chronic GI bleed in the setting of anemia of chronic disease secondary to end-stage renal disease on dialysis/GERD ? She had an EGD back in September 2021 which showed a Dieulafoy's lesion as well as multiple gastric AVMs that were treated ? Continue with PPI, she had an EGD about 2 weeks ago that showed an ulcer with a visible vessel that was treated ? No signs of significant hemorrhage, vital signs are all stable and hemoglobin is 9.6 today ? She will need a capsule endoscopy as an outpatient ? We will consult nephrology for dialysis, and may transfuse during dialysis ? Per family, her hemoglobin at dialysis was in the 12's in March and has steadily been dropping despite the absence of overt bleeding Charges/Coding Visit Charges Inpatient E&M: 72056 Subs Hosp L3
== END 2022-05-17 18:34 | disposition home or self-care (01) | DRG 190 ==
LOC: ED 18:05 → MS3 18:58
PROVIDERS: Internal Medicine Gastroenterology; Internal Medicine Nephrology; Admitting Provider Internal Medicine; Emergency Provider Emergency Medicine; PCP Family Medicine; Visit Provider Family Medicine
DX: J44.1 Chronic obstructive pulmonary disease with (acute) exacerbation (principal); N18.6 End stage renal disease; J96.21 Acute and chronic respiratory failure with hypoxia; K31.82 Dieulafoy lesion (hemorrhagic) of stomach and duodenum; I13.2 Hypertensive heart and chronic kidney disease with heart failure and with stage 5 chronic kidney disease, or end stage renal disease; E87.1 Hypo-osmolality and hyponatremia; I85.00 Esophageal varices without bleeding; I50.32 Chronic diastolic (congestive) heart failure; J90 Pleural effusion, not elsewhere classified; K92.2 Gastrointestinal hemorrhage, unspecified; I27.29 Other secondary pulmonary hypertension; D63.1 Anemia in chronic kidney disease; E11.22 Type 2 diabetes mellitus with diabetic chronic kidney disease; J44.0 Chronic obstructive pulmonary disease with (acute) lower respiratory infection; Z99.2 Dependence on renal dialysis; I27.81 Cor pulmonale (chronic); I70.0 Atherosclerosis of aorta; E66.01 Morbid (severe) obesity due to excess calories; I25.10 Atherosclerotic heart disease of native coronary artery without angina pectoris; I08.1 Rheumatic disorders of both mitral and tricuspid valves; J98.01 Acute bronchospasm; E78.5 Hyperlipidemia, unspecified; D64.9 Anemia, unspecified; K21.9 Gastro-esophageal reflux disease without esophagitis; G47.33 Obstructive sleep apnea (adult) (pediatric); D50.9 Iron deficiency anemia, unspecified; Z79.52 Long term (current) use of systemic steroids; Z79.51 Long term (current) use of inhaled steroids; Z87.891 Personal history of nicotine dependence; Z79.82 Long term (current) use of aspirin
CPT/HCPCS: 36415; 71046; 80048; 80053; 81001; 82803; 83605; 83735; 83880; 84100; 85014; 85018; 85025; 86850; 86900; 86901; 86920; 87086; 87633; 87635; 87641; 90937; 93005; 93306; 94640; 94668; 94762; 97162; 99252; 99285; J7040; J7050; P9016; A4216; G0257; G0463; U0003; U0005

== ENCOUNTER → 2022-05-19 | Outpatient (CLI) | payer MEDICARE, MEDICAID, SELFPAY ==
[2022-05-19 16:07] LABS: Hematocrit 33.7 % (37-47); Hemoglobin 10.2 g/dL (12.0-15.0)
== END | disposition home or self-care (01) ==
LOC: LAB 15:58
PROVIDERS: PCP Family Medicine; Referring Provider Internal Medicine Gastroenterology; Visit Provider Internal Medicine Gastroenterology
DX: D64.9 Anemia, unspecified (principal)
CPT/HCPCS: 36415; 85014; 85018

== ENCOUNTER 2022-06-23 13:44 | Observation (INO) | payer MEDICARE, MEDICAID, SELFPAY ==
[2022-06-23] VITALS (10 sets, daily range): BP systolic 154–191; BP diastolic 56–95; PULSE 66–81; RESP 16–20; TEMP 36.5–37.2; O2SAT 97–100; BMI 28.0
--- NOTE | 2022-06-23 14:45 | EX.ED.DYSGE1 ---
HPI History of Present Illness Chief Complaint: Abn Labs Informant: patient Narrative Narrative: Patient presents secondary to concerns for anemia. She had a capsule endoscopy done a week ago that revealed a large amount of blood in her intestine. She states that she received a phone call from Dr. Chan's office today asking her to come to the emergency room. She does report having black stools for the past week. She is on dialysis and had a full run today. She does report some increased fatigue over the last several days. [facility] Medical History (HFpEF) heart failure with preserved ejection fraction Accidental fall Anxiety Arthritis Atherosclerotic heart disease of [place] coronary artery without angina pectoris CAD (coronary artery disease) Chronic diastolic heart failure Chronic hyponatremia COPD (chronic obstructive pulmonary disease) Diabetes mellitus type 2 in obese Dyslipidemia Easy bruising ESRD (end stage renal disease) on dialysis Essential hypertension History of blood transfusion History of renal dialysis Leg cramps Morbid obesity with BMI of 40.0-44.9, adult Non-rheumatic mitral regurgitation Non-rheumatic tricuspid valve insufficiency On home oxygen therapy Pulmonary hypertension Restless leg syndrome Restless legs Shortness of breath on exertion Toe fracture, left Wears dentures Wears glasses Home Medications amitriptyline 100 mg tablet 100 mg PO QHS mental health 04/09/13 [History Last Taken 05/13/22 21:00] aspirin 81 mg tablet,delayed release 81 mg PO DAILY HEART HEALTH 10/25/17 [History Last Taken 05/14/22 14:00] atorvastatin 80 mg tablet 80 mg PO DAILY CHOLESTEROL 10/25/17 [History Last Taken 05/13/22 21:30] amlodipine 10 mg tablet 10 mg PO DAILY BP 06/01/18 [History Last Taken 05/14/22 08:30] doxazosin 8 mg tablet 8 mg PO QHS blood pressure 08/20/18 [History Last Taken 05/13/22 21:30] omeprazole 40 mg capsule,delayed release 40 mg PO DAILY gerd 08/20/18 [History Last Taken 05/13/22 21:30] hydralazine 100 mg tablet 100 mg PO TID diuretic 01/01/19 [History Last Taken 05/14/22 14:00] bumetanide 2 mg tablet 2 mg PO DAILY diuretic 03/14/19 [History Last Taken 05/14/22 08:30] carvedilol 6.25 mg tablet 6.25 mg PO BID blood pressure 03/14/19 [History Last Taken 05/14/22 08:30] nitroglycerin 0.4 mg sublingual tablet 0.4 mg sublingual Q5M PRN CHEST PAIN 03/14/19 [History Last Taken Unknown] albuterol sulfate 1.25 mg/3 mL solution for nebulization 1.25 mg (3 mL) inhalation 4X/DAY Wheezing #360 mL 08/17/20 [Rx Last Taken 05/14/22 08:30] albuterol sulfate 90 mcg/actuation aerosol inhaler (ProAir HFA) 2 puff inhalation Q6H PRN sob 09/30/20 [History Last Taken 05/13/22 08:30] ropinirole 0.5 mg tablet 0.5 mg PO QHS Check with primary doctor 07/07/21 [History Last Taken 05/13/22 21:30] budesonide-formoterol HFA 160 mcg-4.5 mcg/actuation aerosol inhaler (Symbicort) 2 inh inhalation BID breathing #3 ea 03/10/22 [Rx Last Taken 05/14/22 08:30] acetaminophen 500 mg tablet (Acetaminophen Extra Strength) 1,000 mg PO DAILY PRN Pain 05/04/22 [History Last Taken 05/14/22 14:00] ascorbic acid (vitamin C) 500 mg tablet 500 mg PO DAILY SUPPLEMENT 05/04/22 [History Last Taken 05/14/22 08:30] prednisone 5 mg tablet 5 mg PO DAILY INFLAMMATION 05/04/22 [History Last Taken 05/14/22 08:30] sevelamer carbonate 800 mg tablet 800 mg PO TIDCM PHOSPHATE 05/04/22 [History Last Taken 05/14/22 14:00] isosorbide mononitrate 60 mg tablet,extended release 24 hr 60 mg PO DAILY Check with primary doctor 05/14/22 [History Last Taken 05/13/22 21:30] linaclotide 145 mcg capsule (Linzess) 145 mcg PO DAILY #30 caps 05/17/22 [Rx Last Taken Unknown] prednisone 20 mg tablet 40 mg PO DAILY@0800 #11 tabs 05/17/22 [Rx Last Taken Unknown] Allergy/AdvReac Type Severity Reaction Status Date / Time Penicillins Allergy Hives Verified 06/23/22 13:50 adhesive tape AdvReac Other Verified 06/23/22 13:50 Family History Mother Heart disease Surgical History H/O four vessel coronary artery bypass graft (~04/16/13) Hx of colonoscopy Hx of esophagogastroduodenoscopy Social History household members: family Smoking Status: Former smoker quit date: 03/05/10 alcohol intake: current alcohol intake frequency: other substance use type: does not use ROS ROS ED Constitutional Constitutional ED: Denies chills or fever(s) Eyes Eyes: Denies change in vision or discharge from eye(s) ENT ENT ED: Denies discharge from eye(s), rhinorrhea or sore throat Cardiovascular Cardiovascular: Denies chest pain or palpitations Respiratory/Chest Respiratory/Chest: Denies cough or dyspnea Gastrointestinal Gastrointestinal: Reports abdominal pain and diarrhea; Denies nausea or vomiting Genitourinary Genitourinary ED: Denies dysuria Musculoskeletal Musculoskeletal: Denies back pain or extremity pain Integumentary Denies Abrasions or rash Neurologic Neurologic: Reports weakness; Denies headache(s) Psychiatric Psychiatric: Denies anxiety or depression Allergic/Immunologic Allergic/Immunologic ED: Denies lip swelling or urticaria EXAM Physical Exam Const Vital Signs: 06/23/22 13:45 06/23/22 14:30 Temperature 98 F Temperature Source Temporal Pulse Rate 80 Respiratory Rate 16 Respiratory Effort Normal Non-Labored Respiratory Pattern Normal Blood Pressure 178/56 H Blood Pressure Mean 96 Pulse Ox 97 Oxygen Delivery Method Room Air Positive well nourished and well developed General Appearance ED: well developed HEENT Reports normocephalic and head/scalp atraumatic Eyes PERRL and EOMs intact bilaterally Neck supple Chest Wall inspection of chest normal and palpation of chest normal Resp normal respiratory effort and clear to auscultation bilaterally Cardio regular rate and regular rhythm GI normal to inspection, nondistended, normoactive bowel sounds Palpation: soft Extremity normal to inspection Neuro oriented x3 and no sensory deficits noted Sensorium / Orientation: alert Motor Exam: strength 5/5 throughout Psych mental status grossly normal Skin no rashes or lesions noted MDM MDM MDM Narrative Medical decision making narrative: Labwork obtained to evaluate for leukocytosis, anemia, and electrolyte derangement. Type and screen sent. I did review the patient's recent capsule endoscopy report. History & Record Review Additional record(s) reviewed:: Prior outpatient record and Prior labs Lab Data Attestation: I reviewed the patient's lab results. Labs: Laboratory Results - last 24 hr 06/23/22 06/23/22 14:47 14:47 WBC 10.2 RBC 3.03 L Hgb 8.9 L Hct 29.4 L MCV 97.0 MCH 29.4 MCHC 30.3 L RDW Std Deviation 64.4 H RDW Coeff of Becca 18.4 H Plt Count 302 MPV 10.7 Immature Gran % (Auto) 2.300 H Neut % (Auto) 81.4 H Lymph % (Auto) 8.0 L Stewart % (Auto) 6.8 Eos % (Auto) 0.9 Baso % (Auto) 0.6 Absolute Neuts (auto) 8.3 H Absolute Lymphs (auto) 0.82 L Nucleated RBC % 0.6 Sodium 135 L Potassium 4.5 Chloride 101 Carbon Dioxide 29.0 Anion Gap 5 BUN 20 H Creatinine 3.61 H Estim Creat Clear Calc 10.65 Est GFR (MDRD) Af Amer 16 L Est GFR (MDRD) Non-Af 13 L BUN/Creatinine Ratio 5.5 L Glucose 103 Calcium 8.7 Treatment and Re-Evaluation :: CBC reveals a hemoglobin of 8.9. She has been as low as 6 in the past but appears that she normally runs in the 8 range. Chemistry studies significant for a BUN of 20 and a creatinine of 3.61. She did have her full run of dialysis today. I did speak with Dr. Chan. He states that in the past the patient has been reluctant to undergo the prep needed for colonoscopy. If she will agree to do the prep, he would prefer to admit her and perform colonoscopy and attempt to treat her source of bleeding. He would like 1 unit of blood given now. I did speak with the patient and she did agree to the colon prep and scope. I will speak with the hospitalist. Discharge Plan Triage Chief Complaint: Abn Labs ED Provider: Hina Warren Dx/Rx/DC Orders Clinical Impression: Anemia, GI bleed Prescriptions: No Action albuterol sulfate [ProAir HFA] 90 mcg/actuation HFA aerosol inhaler 2 puff inhalation Q6H PRN (Reason: sob) ropinirole 0.5 mg tablet 0.5 mg PO QHS Label Comments: TAKE 1 TABLET BY MOUTH ONCE DAILY budesonide-formoterol [Symbicort] 160-4.5 mcg/actuation HFA aerosol inhaler 2 inh INHALATION BID Qty: 3 3RF Rx Instructions: administer with spacer, rinse mouth after each use amitriptyline 100 MG tablet 100 mg PO QHS Label Comments: MENTAL HEALTH atorvastatin 80 MG tablet 80 mg PO DAILY Label Comments: aspirin 81 MG tablet 81 mg PO DAILY Hold Instructions: Resume on 05/24/22. amlodipine 10 MG tablet 10 mg PO DAILY omeprazole 40 MG capsule,delayed release(DR/EC) 40 mg PO DAILY Hold Instructions: Resume on 05/08/21. doxazosin 8 MG tablet 8 mg PO QHS hydralazine 100 mg tablet 100 mg PO TID nitroglycerin 0.4 MG tablet, sublingual 0.4 mg SL Q5M PRN (Reason: CHEST PAIN) carvedilol 6.25 MG tablet 6.25 mg PO BID bumetanide 2 MG tablet 2 mg PO DAILY prednisone 5 mg tablet 5 mg PO DAILY acetaminophen [Acetaminophen Extra Strength] 500 mg Tablet 1,000 mg PO DAILY PRN (Reason: Pain) sevelamer carbonate 800 mg tablet 800 mg PO TIDCM ascorbic acid (vitamin C) 500 MG tablet 500 mg PO DAILY isosorbide mononitrate 60 mg tablet extended release 24 hr 60 mg PO DAILY prednisone 20 mg Tablet 40 mg PO DAILY@0800 Qty: 11 0RF Rx Instructions: Take 2 tablets daily for 3 days then 1 tablet daily for 3 days then half tablet daily for 4 days then resume your 5 mg of prednisone daily. albuterol sulfate 1.25 mg/3 mL solution for nebulization 1.25 mg INHALATION 4X/DAY Qty: 360 6RF Linzess 145 mcg capsule 145 mcg PO DAILY Qty: 30 3RF Primary Care Provider: Levi Laird Referrals: Levi Laird MD [Primary Care Provider] - Disposition Disposition: Acute Care Hospital [facility]
[2022-06-23 15:22] LABS: Absolute Lymphocyte Count 0.82 X10^3/uL (0.83-4.51); Absolute Neutrophil Count 8.3 X10^3/uL (2.0-7.7); Basophil# 0.06 X10^3/uL; Basophil% 0.6 % (0-1); Eosinophil# 0.09 X10^3/uL; Eosinophils% 0.9 % (0-5); Hematocrit 29.4 % (37-47); Hemoglobin 8.9 g/dL (12.0-15.0); Lymphocyte # 0.82 X10^3/ul (0.83-4.51); Mean Corp Hgb Conc 30.3 g/dL (32-36); Mean Corpuscular Hgb 29.4 pg (27.0-32.0); Mean Platelet Vol. 10.7 fl (6.2-12.0); Monocyte# 0.69 X10^3/uL; Monocyte% 6.8 % (0-10); NRBC Flagged by Analyzer 0.6 % (0-5); Neutrophil # 8.32 X10^3/uL (2.7-7.7); Neutrophil % 81.4 % (47-70); Platelet Count 302 K/mm3 (150-450); RBC Distribution Width CV 18.4 % (11.6-14.6); RBC Distribution Width SD 64.4 fl (35.1-43.9); Red Blood Count 3.03 M/mm3 (4.2-5.4); White Blood Count 10.2 K/mm3 (4.4-11.0)
[2022-06-23 15:27] LABS: Anion Gap 5 (5-15); BUN 20 mg/dL (7-18); BUN/Creat Ratio 5.5 RATIO (10-20); Calcium,Total 8.7 mg/dL (8.5-10.1); Chloride 101 mmol/L (98-107); Creatinine, Serum 3.61 mg/dL (0.55-1.02); EST Glomerular Filtration Rate 13 mL/min (>60); Est Glom Filt Rate - Afr Amer 16 mL/min (>60); Estimated Creatinine Clearance 10.65 ml/min; Glucose 103 mg/dL (74-106); Potassium 4.5 mmol/L (3.5-5.1); Sodium Level 135 mmol/L (136-145)
[2022-06-23 15:45] LABS: International Normalized Ratio 1.1; Prothrombin Time (Protime)PT. 14.2 SECONDS (11.7-14.9)
[2022-06-23 15:46] LABS: Partial Thromboplast Time 40.5 Seconds (24.1-36.2)
--- NOTE | 2022-06-23 15:59 | HP.PCM.HOS_ITS ---
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 She had a capsule endoscopy last week which showed a lot of blood in her intestine. She was called to come to the ED by her GI's office. She also complained of dark stools for the past week, increased fatigue and weakness. She denied any abdominal pain, chest pain, nausea, vomiting or any other symptoms. Review of systems is otherwise negative. Vitals were Bp of 178.56, WI of 80, RR of 16 and temp of 98F, with oxygen sats of 97% on room air. CBC showed hb of 8.9, wbc of 10.2 and platelets of 302. INR is 1.1. Chemistry showed sodium of 1135, bicarb of 29 and Cr of 3.1. She is on dialysis and had a full run of dialysis today. Gastroenterology wants to do a colonoscopy tomorrow, hence patient is being admitted. [facility] Medical History (HFpEF) heart failure with preserved ejection fraction Accidental fall Anxiety Arthritis Atherosclerotic heart disease of [place] coronary artery without angina pectoris CAD (coronary artery disease) Chronic diastolic heart failure Chronic hyponatremia COPD (chronic obstructive pulmonary disease) Diabetes mellitus type 2 in obese Dyslipidemia Easy bruising ESRD (end stage renal disease) on dialysis Essential hypertension History of blood transfusion History of renal dialysis Leg cramps Morbid obesity with BMI of 40.0-44.9, adult Non-rheumatic mitral regurgitation Non-rheumatic tricuspid valve insufficiency On home oxygen therapy Pulmonary hypertension Restless leg syndrome Restless legs Shortness of breath on exertion Toe fracture, left Wears dentures Wears glasses Home Medications amitriptyline 100 mg tablet 100 mg PO QHS mental health 04/09/13 [History Last Taken 05/13/22 21:00] aspirin 81 mg tablet,delayed release 81 mg PO DAILY HEART HEALTH 10/25/17 [History Last Taken 05/14/22 14:00] atorvastatin 80 mg tablet 80 mg PO DAILY CHOLESTEROL 10/25/17 [History Last Taken 05/13/22 21:30] amlodipine 10 mg tablet 10 mg PO DAILY BP 06/01/18 [History Last Taken 05/14/22 08:30] doxazosin 8 mg tablet 8 mg PO QHS blood pressure 08/20/18 [History Last Taken 05/13/22 21:30] omeprazole 40 mg capsule,delayed release 40 mg PO DAILY gerd 08/20/18 [History Last Taken 05/13/22 21:30] hydralazine 100 mg tablet 100 mg PO TID diuretic 01/01/19 [History Last Taken 05/14/22 14:00] bumetanide 2 mg tablet 2 mg PO DAILY diuretic 03/14/19 [History Last Taken 05/14/22 08:30] carvedilol 6.25 mg tablet 6.25 mg PO BID blood pressure 03/14/19 [History Last Taken 05/14/22 08:30] nitroglycerin 0.4 mg sublingual tablet 0.4 mg sublingual Q5M PRN CHEST PAIN 03/14/19 [History Last Taken Unknown] albuterol sulfate 1.25 mg/3 mL solution for nebulization 1.25 mg (3 mL) inhalation 4X/DAY Wheezing #360 mL 08/17/20 [Rx Last Taken 05/14/22 08:30] albuterol sulfate 90 mcg/actuation aerosol inhaler (ProAir HFA) 2 puff inhalation Q6H PRN sob 09/30/20 [History Last Taken 05/13/22 08:30] ropinirole 0.5 mg tablet 0.5 mg PO QHS Check with primary doctor 07/07/21 [History Last Taken 05/13/22 21:30] budesonide-formoterol HFA 160 mcg-4.5 mcg/actuation aerosol inhaler (Symbicort) 2 inh inhalation BID breathing #3 ea 03/10/22 [Rx Last Taken 05/14/22 08:30] acetaminophen 500 mg tablet (Acetaminophen Extra Strength) 1,000 mg PO DAILY PRN Pain 05/04/22 [History Last Taken 05/14/22 14:00] ascorbic acid (vitamin C) 500 mg tablet 500 mg PO DAILY SUPPLEMENT 05/04/22 [History Last Taken 05/14/22 08:30] prednisone 5 mg tablet 5 mg PO DAILY INFLAMMATION 05/04/22 [History Last Taken 05/14/22 08:30] sevelamer carbonate 800 mg tablet 800 mg PO TIDCM PHOSPHATE 05/04/22 [History Last Taken 05/14/22 14:00] isosorbide mononitrate 60 mg tablet,extended release 24 hr 60 mg PO DAILY Check with primary doctor 05/14/22 [History Last Taken 05/13/22 21:30] linaclotide 145 mcg capsule (Linzess) 145 mcg PO DAILY #30 caps 05/17/22 [Rx Last Taken Unknown] prednisone 20 mg tablet 40 mg PO DAILY@0800 #11 tabs 05/17/22 [Rx Last Taken Unknown] Allergy/AdvReac Type Severity Reaction Status Date / Time Penicillins Allergy Hives Verified 06/23/22 13:50 adhesive tape AdvReac Other Verified 06/23/22 13:50 Family History Mother Heart disease Surgical History H/O four vessel coronary artery bypass graft (~04/16/13) Hx of colonoscopy Hx of esophagogastroduodenoscopy Social History household members: family Smoking Status: Former smoker quit date: 03/05/10 alcohol intake: current alcohol intake frequency: other substance use type: does not use ROS Review of Systems ROS Unobtainable: Denies due to encephalopathy Constitutional Constitutional: Denies anorexia, change in weight, chills, fatigue, fever(s), malaise or weakness Eyes Eyes: Denies change in vision ENT HEENT: Denies dysphagia, headache(s) or sore throat Cardiovascular Cardiovascular: Denies chest pain, edema, lightheadedness, orthopnea, palpitations, paroxysmal nocturnal dyspnea or rapid heart rate Respiratory/Chest Respiratory/Chest: Denies cough, dyspnea, productive cough, shortness of breath at rest or shortness of breath with exertion Gastrointestinal Gastrointestinal: Reports abdominal pain and other Details: dark stools ; Denies coffee ground emesis, constipation, diarrhea, dyspepsia, nausea or vomiting Genitourinary Genitourinary: Reports difficulty urinating; Denies burning urination or dysuria Musculoskeletal Musculoskeletal: Denies arthralgias Neurologic Neurologic: Denies confusion, dizziness, focal weakness, headache(s) or seizures Psychiatric Psychiatric: Denies anxiety or depression Endocrine Endocrinology: Denies change in body appearance Hematologic/Lymphatic Hematologic/Lymphatic: Denies anemia Vital Signs Vital Signs Vital Signs: 06/23/22 13:45 06/23/22 14:30 Temperature 98 F Temperature Source Temporal Pulse Rate 80 Respiratory Rate 16 Respiratory Effort Normal Non-Labored Respiratory Pattern Normal Blood Pressure 178/56 H Blood Pressure Mean 96 Pulse Ox 97 Oxygen Delivery Method Room Air Weight Weight: 153 lb Body Mass Index (BMI) 28.0 Physical Exam Const alert, oriented x3 and no apparent distress General Appearance: cooperative HEENT normocephalic, head/scalp atraumatic, hearing grossly normal bilaterally and moist oral mucous membranes Mouth: oral and palatal mucosa normal Eyes PERRL, EOMs intact bilaterally and conjunctivae normal Neck no lymphadenopathy and supple Resp normal respiratory effort, no retractions, no use of accessory muscles and clear to auscultation bilaterally Cardio regular rate, regular rhythm, S1 normal heart sound, S2 normal heart sound and no murmurs GI normal to inspection, nondistended, normoactive bowel sounds, soft to palpation, non-tender and non-distended Extremity normal to inspection, full ROM and no clubbing, cyanosis or edema Neuro oriented x3, CN's II-XII intact bilaterally, moves all extremities and no focal motor deficits Sensorium / Orientation: awake and alert Motor Exam: strength 5/5 throughout Psych affect normal Results Lab / Micro Data Result Diagrams: 06/23/22 14:47 06/23/22 14:47 Labs: Laboratory Results - last 24 hr 06/23/22 14:47: WBC 10.2, RBC 3.03 L, Hgb 8.9 L, Hct 29.4 L, MCV 97.0, MCH 29.4, MCHC 30.3 L, RDW Std Deviation 64.4 H, RDW Coeff of Becca 18.4 H, Plt Count 302, MPV 10.7, Immature Gran % (Auto) 2.300 H, Neut % (Auto) 81.4 H, Lymph % (Auto) 8.0 L, [place] % (Auto) 6.8, Eos % (Auto) 0.9, Baso % (Auto) 0.6, Absolute Neuts (auto) 8.3 H, Absolute Lymphs (auto) 0.82 L, Nucleated RBC % 0.6 06/23/22 14:47: PT 14.2, INR 1.1, APTT 40.5 H 06/23/22 14:47: Sodium 135 L, Potassium 4.5, Chloride 101, Carbon Dioxide 29.0, Anion Gap 5, BUN 20 H, Creatinine 3.61 H, Estim Creat Clear Calc 10.65, Est GFR (MDRD) Af Amer 16 L, Est GFR (MDRD) Non-Af 13 L, BUN/Creatinine Ratio 5.5 L, Glucose 103, Calcium 8.7 06/23/22 14:47: Blood Type A NEGATIVE, Antibody Screen NEGATIVE 06/23/22 14:47: Crossmatch See Detail Assessment & Plan Assessment/Plan (1) Anemia: (2) GI bleed: PLAN: Plan #Anemia in the setting of GI bleed * hb is 8.9 * had a capsule endoscopy and was told today that it showed a large amount of blood in the terminal ileum and so was called to come to the ED * she admits to abdominal pain and dark stools * keep nPO past midnight * start on IV pantoprazole 40mg bid * consult gastroentrology * for colonoscopy tomorrow. * being transfused with one unit of PRBC per gastrenterology to shore her up * #Peptic ulcer disease * has had previous EGDs which showed bleeding AVMs and a deltoid lesion on the EGD * on IV PPI * for EGD and colonoscopy today * NPO past midnight * #ESRD * on hemodialysis MWF. * consult nephrology to help with dialysis whilst she is in the hospital * On sevelamer * #Hypertension: On amlodipine, hydralazine and carvedilol as well as Bumex. #ELAINE:on CPAP qhs #History of COPD: On breathing treatments of bronchodilators. Not in exacerbation. #Restless leg syndrome: On pramipexole #CAD: On aspirin and high intensity statin as well as carvedilol and Imdur. Hold aspirin for now. #Type 2 diabetes mellitus: Diet controlled. On insulin sliding scale. Accu- Cheks ACHS. DVT prophylaxis: SCDs \ CODE STATUS: DNR CCA no intubation * Patient and her daughter counseled extensively about different types of CODE STATUS including full code, DNR CCA and DNR CCA. Patient elects to be DNRCCA no intubation. * Total [id number] time 17 minutes. Total time spent on evaluation and management of patient, reviewing chart and specialist notes, discussing plan with patient and her daughter, discussion with nursing and ancillary staff as well as documentation: 72 mins Charges/Coding Visit Charges Inpatient E&M: 64836 Init Hosp L2 Procedures Hospitalists Procedures: 89028 Advncd Care Plan 30 Min
--- NOTE | 2022-06-23 16:53 | EX.PCM.CON.G ---
HPI Consult Data Date of Consult: 06/23/22 HPI Narrative Reason for Consultation: GI bleed HPI Narrative: JULISSA VEGA, is a 76 F who presents?76 F, who presents to [facility] on 05/14/2022 secondary to progressive shortness of breath and recent diagnosis of pneumonia.? Patient had been on antibiotics and discharged home.? Patient is on supplemental oxygen at baseline at about 2 L/min, but was noted to have a saturation of 89% on 3-1/2 L.? Family had brought her in because of failure to improve.? Patient was admitted at the beginning of May secondary to a GI bleed with a hemoglobin of 6.? At that time she had had some intermittent black stools and was found to have multiple AVMs and a deltoid lesion on EGD.? Recently patient underwent a capsule endoscopy and was discovered to have some blackish and maroon blood in her distal terminal ileum. Her recent hemoglobin was 8.9 which is down from 10.6. We will requested that she come to the hospital for further evaluation. In the ED she was discovered to have elevated creatinine ratio consistent with with her End-stage renal disease. [facility] Medical History (HFpEF) heart failure with preserved ejection fraction Accidental fall Anxiety Arthritis Atherosclerotic heart disease of [place] coronary artery without angina pectoris CAD (coronary artery disease) Chronic diastolic heart failure Chronic hyponatremia COPD (chronic obstructive pulmonary disease) Diabetes mellitus type 2 in obese Dyslipidemia Easy bruising ESRD (end stage renal disease) on dialysis Essential hypertension History of blood transfusion History of renal dialysis Leg cramps Morbid obesity with BMI of 40.0-44.9, adult Non-rheumatic mitral regurgitation Non-rheumatic tricuspid valve insufficiency On home oxygen therapy Pulmonary hypertension Restless leg syndrome Restless legs Shortness of breath on exertion Toe fracture, left Wears dentures Wears glasses Home Medications amitriptyline 100 mg tablet 100 mg PO QHS mental health 04/09/13 [History Last Taken 05/13/22 21:00] aspirin 81 mg tablet,delayed release 81 mg PO DAILY HEART HEALTH 10/25/17 [History Last Taken 05/14/22 14:00] atorvastatin 80 mg tablet 80 mg PO DAILY CHOLESTEROL 10/25/17 [History Last Taken 05/13/22 21:30] amlodipine 10 mg tablet 10 mg PO DAILY BP 06/01/18 [History Last Taken 05/14/22 08:30] doxazosin 8 mg tablet 8 mg PO QHS blood pressure 08/20/18 [History Last Taken 05/13/22 21:30] omeprazole 40 mg capsule,delayed release 40 mg PO DAILY gerd 08/20/18 [History Last Taken 05/13/22 21:30] hydralazine 100 mg tablet 100 mg PO TID diuretic 01/01/19 [History Last Taken 05/14/22 14:00] bumetanide 2 mg tablet 2 mg PO DAILY diuretic 03/14/19 [History Last Taken 05/14/22 08:30] carvedilol 6.25 mg tablet 6.25 mg PO BID blood pressure 03/14/19 [History Last Taken 05/14/22 08:30] nitroglycerin 0.4 mg sublingual tablet 0.4 mg sublingual Q5M PRN CHEST PAIN 03/14/19 [History Last Taken Unknown] albuterol sulfate 1.25 mg/3 mL solution for nebulization 1.25 mg (3 mL) inhalation 4X/DAY Wheezing #360 mL 08/17/20 [Rx Last Taken 05/14/22 08:30] albuterol sulfate 90 mcg/actuation aerosol inhaler (ProAir HFA) 2 puff inhalation Q6H PRN sob 09/30/20 [History Last Taken 05/13/22 08:30] ropinirole 0.5 mg tablet 0.5 mg PO QHS Check with primary doctor 07/07/21 [History Last Taken 05/13/22 21:30] budesonide-formoterol HFA 160 mcg-4.5 mcg/actuation aerosol inhaler (Symbicort) 2 inh inhalation BID breathing #3 ea 03/10/22 [Rx Last Taken 05/14/22 08:30] acetaminophen 500 mg tablet (Acetaminophen Extra Strength) 1,000 mg PO DAILY PRN Pain 05/04/22 [History Last Taken 05/14/22 14:00] ascorbic acid (vitamin C) 500 mg tablet 500 mg PO DAILY SUPPLEMENT 05/04/22 [History Last Taken 05/14/22 08:30] prednisone 5 mg tablet 5 mg PO DAILY INFLAMMATION 05/04/22 [History Last Taken 05/14/22 08:30] sevelamer carbonate 800 mg tablet 800 mg PO TIDCM PHOSPHATE 05/04/22 [History Last Taken 05/14/22 14:00] isosorbide mononitrate 60 mg tablet,extended release 24 hr 60 mg PO DAILY Check with primary doctor 05/14/22 [History Last Taken 05/13/22 21:30] linaclotide 145 mcg capsule (Linzess) 145 mcg PO DAILY #30 caps 05/17/22 [Rx Last Taken Unknown] prednisone 20 mg tablet 40 mg PO DAILY@0800 #11 tabs 05/17/22 [Rx Last Taken Unknown] Allergy/AdvReac Type Severity Reaction Status Date / Time Penicillins Allergy Hives Verified 06/23/22 13:50 adhesive tape AdvReac Other Verified 06/23/22 13:50 Family History Mother Heart disease Surgical History H/O four vessel coronary artery bypass graft (~04/16/13) Hx of colonoscopy Hx of esophagogastroduodenoscopy Social History household members: family Smoking Status: Former smoker quit date: 03/05/10 alcohol intake: current alcohol intake frequency: other substance use type: does not use ROS ROS Narrative See HPI Physical Exam Narrative General: Alert, Oriented x3, Cooperative, No apparent distress HEENT: Atraumatic, PERRLA, EOMI, Normocephalic Oral: Moist Mucosa Neck: Supple, No JVD Lungs: Diminished, normal air movement, no rhonchi, no wheeze, No rales Cardiovascular: Regular rate, Regular Rhythm, Normal S1, Normal S2, murmurs Abdomen: Soft, Non Tender, Non-Distended, No Hepato-splenomegaly, midline abdominal hernia Extremities: No edema, Capillary Refill Less than 3 Seconds Skin: No rashes, No breakdown Musculoskeletal: No Tenderness to Palpation of Joints or Extremities Neurological: Cranial nerves II-XII grossly intact, Motor Exam 5/5 strength throughout, Sensory exam intact to light touch and pain Psych/Mental Status: Normal Affect, Appropriate Lab / Micro Data Result Diagrams: 06/23/22 14:47 06/23/22 14:47 Labs: Laboratory Results - last 24 hr 06/23/22 14:47: WBC 10.2, RBC 3.03 L, Hgb 8.9 L, Hct 29.4 L, MCV 97.0, MCH 29.4, MCHC 30.3 L, RDW Std Deviation 64.4 H, RDW Coeff of Becca 18.4 H, Plt Count 302, MPV 10.7, Immature Gran % (Auto) 2.300 H, Neut % (Auto) 81.4 H, Lymph % (Auto) 8.0 L, [place] % (Auto) 6.8, Eos % (Auto) 0.9, Baso % (Auto) 0.6, Absolute Neuts (auto) 8.3 H, Absolute Lymphs (auto) 0.82 L, Nucleated RBC % 0.6 06/23/22 14:47: PT 14.2, INR 1.1, APTT 40.5 H 06/23/22 14:47: Sodium 135 L, Potassium 4.5, Chloride 101, Carbon Dioxide 29.0, Anion Gap 5, BUN 20 H, Creatinine 3.61 H, Estim Creat Clear Calc 10.65, Est GFR (MDRD) Af Amer 16 L, Est GFR (MDRD) Non-Af 13 L, BUN/Creatinine Ratio 5.5 L, Glucose 103, Calcium 8.7 06/23/22 14:47: Blood Type A NEGATIVE, Antibody Screen NEGATIVE 06/23/22 14:47: Crossmatch See Detail Assessment & Plan Assessment/Plan (1) Acute exacerbation of chronic obstructive pulmonary disease: (2) GI bleed: (3) Anemia: PLAN: Plan Acute recurrent GI bleed likely only from the small bowel. She will need to undergo an EGD and colonoscopy for evaluation of the upper and lower GI tract. If we cannot locate the site of bleeding that she would need to be seen at a tertiary care center for double-balloon or single enteroscopy. She will be on clear liquid diet and she will need to prep tonight. She can have tapwater enemas if she has not clear4 am. Charges/Coding Visit Charges Inpatient E&M: 98542 Init Hosp L2
[2022-06-23] MEDS: Polyethylene Glycol 3350 BOWEL PREP PO (18:45)
[2022-06-23] MEDS: Senna/Docusate Sodium 1 Tablet 2 TABLET PO (18:50)
[2022-06-23] MEDS: Metoclopramide 10 MG/2 ML Vial IV (18:50)
[2022-06-23] MEDS: Bisacodyl 5 MG Tablet 20 MG PO (18:50)
[2022-06-23] MEDS: hydrALAZINE 50 MG Tablet 100 MG PO (19:48)
[2022-06-23] MEDS: Carvedilol 6.25 MG Tablet PO (19:48)
[2022-06-23] MEDS: Albuterol 2.5 MG/3 ML VIAL.NEB. INHALATION (20:34)
[2022-06-23] MEDS: Budesonide Respules 0.5 MG/2 ML AMPUL.NEB. INHALATION (20:34)
[2022-06-23] MEDS: Doxazosin 4 MG Tablet 8 MG PO (21:01)
[2022-06-23] MEDS: Pramipexole Di-HCl 0.25 MG Tablet PO (21:01)
[2022-06-23] MEDS: Amitriptyline 100 MG Tablet PO (21:01)
[2022-06-23] MEDS: Atorvastatin Calcium 80 MG Tablet PO (22:02)
[2022-06-24] VITALS (14 sets, daily range): BP systolic 120–146; BP diastolic 50–72; PULSE 67–81; RESP 16–19; TEMP 36.2–36.8; O2SAT 96–100; BMI 28.1
[2022-06-24] MEDS: Metoclopramide 10 MG/2 ML Vial IV ×3 (00:16→13:07)
[2022-06-24] MEDS: 0.9% Saline Lock 10 ML Syringe IV ×2 (00:16→05:45)
[2022-06-24] MEDS: Albuterol 2.5 MG/3 ML VIAL.NEB. INHALATION ×2 (02:00→07:02)
[2022-06-24 05:20] LABS: Absolute Neutrophil Count 9.2 X10^3/uL (2.0-7.7); Basophil# 0.07 X10^3/uL; Basophil% 0.6 % (0-1); Eosinophil# 0.12 X10^3/uL; Eosinophils% 1.1 % (0-5); Hemoglobin 9.8 g/dL (12.0-15.0); Lymphocyte % 5.5 % (19-41); Mean Corp Hgb Conc 31.6 g/dL (32-36); Mean Corpuscular Hgb 30.3 pg (27.0-32.0); Mean Platelet Vol. 10.1 fl (6.2-12.0); Monocyte# 0.69 X10^3/uL; Monocyte% 6.3 % (0-10); NRBC Flagged by Analyzer 0.4 % (0-5); Neutrophil # 9.17 X10^3/uL (2.7-7.7); Neutrophil % 84.5 % (47-70); POSITIVE DIFFERENTIAL YES; POSITIVE MORPHOLOGY YES; Platelet Count 267 K/mm3 (150-450); RBC Distribution Width CV 18.4 % (11.6-14.6); RBC Distribution Width SD 65.2 fl (35.1-43.9); Red Blood Count 3.23 M/mm3 (4.2-5.4); White Blood Count 10.9 K/mm3 (4.4-11.0)
[2022-06-24 05:29] LABS: Anion Gap 4 (5-15); BUN 24 mg/dL (7-18); Calcium,Total 8.6 mg/dL (8.5-10.1); Chloride 98 mmol/L (98-107); Creatinine, Serum 4.01 mg/dL (0.55-1.02); EST Glomerular Filtration Rate 12 mL/min (>60); Est Glom Filt Rate - Afr Amer 14 mL/min (>60); Estimated Creatinine Clearance 9.59 ml/min; Glucose 106 mg/dL (74-106); Potassium 3.8 mmol/L (3.5-5.1); Sodium Level 129 mmol/L (136-145)
--- NOTE | 2022-06-24 05:30 | RAD_ITS ---
INDICATION: preoperative EXAMINATION/TECHNIQUE: X-RAY - XR Chest 1 View COMPARISON: 05/14/2022. FINDINGS: LINES/DEVICES: Right-sided dialysis catheter is stable. LUNGS: No consolidation or evidence of an effusion. No evidence of edema or a pneumothorax. Stable elevation of the right hemidiaphragm. MEDIASTINUM AND CARDIOVASCULAR STRUCTURES: Cardiac silhouette is normal in size and contour. Stable post surgical changes. BONES AND SOFT TISSUES: No acute abnormality. RAD/Chest 1 View IMPRESSION: No evidence of acute cardiopulmonary disease. Electronically Signed: Dev Munson DO at 6:02 EDT ,
[2022-06-24 05:49] LABS: Differential Indicated SCAN CRITERIA MET
--- NOTE | 2022-06-24 06:00 | EKG12_ITS ---
Test Reason : PRE-OP Blood Pressure : / mmHG Vent. Rate : 082 BPM Atrial Rate : 082 BPM P-R Int : 208 ms QRS Dur : 112 ms QT Int : 414 ms P-R-T Axes : 094 045 066 degrees QTc Int : 483 ms Normal sinus rhythm Normal ECG When compared with ECG of 14-MAY-2022 15:45, Premature atrial complexes are no longer Present T wave inversion no longer evident in Anterior leads Confirmed by CHAITANYA DOVE, CARLOS ENRIQUE ([id number]), continuity editor DENVER KRAUSE ([id number]) on 06/27/2022 10:44:31 AM Referred By: SHRUTHI Confirmed By:CARLOS ENRIQUE TAVARES MD
[2022-06-24 06:04] LABS: Anisocytosis 2+; Differential Comment SCANNED
[2022-06-24 07:00] LABS: Bedside Glucose 96 mg/dL (74-106)
[2022-06-24] MEDS: Budesonide Respules 0.5 MG/2 ML AMPUL.NEB. INHALATION (07:02)
[2022-06-24 08:08] LABS: Hemoglobin A1c < 3.8 % (3.8-5.6)
--- NOTE | 2022-06-24 08:37 | NURSING ---
pt off floor for procedure
--- NOTE | 2022-06-24 09:00 | OP.EGD_ITS ---
Patient Name: Shante Trujillo Procedure Date: 06/24/2022 7:50 AM Date of : 1945 Age: 76 Procedure: Upper GI endoscopy Indications: Iron deficiency anemia, Melena Providers: Kameron Chan DO Medicines: Monitored Anesthesia Care Patient Profile: This is a 76 year old female. Refer to note in patient chart for documentation of history and physical. Patient has symptoms. Complications: No immediate complications. Procedure: Pre-Anesthesia Assessment: - Prior to the procedure, a History and Physical was performed, and patient medications and allergies were reviewed. The risks and benefits of the procedure and the sedation options and risks were discussed with the patient. All questions were answered and informed consent was obtained. Patient identification and proposed procedure were verified by the physician in the pre-procedure area. Mental Status Examination: alert and oriented. Airway Examination: normal oropharyngeal airway and neck mobility. Respiratory Examination: clear to auscultation. CV Examination: normal. Prophylactic Antibiotics: The patient does not require prophylactic antibiotics. Prior Anticoagulants: The patient has taken no previous anticoagulant or antiplatelet agents. After reviewing the risks and benefits, the patient was deemed in satisfactory condition to undergo the procedure. The anesthesia plan was to use minimal sedation / analgesia (anxiolysis). Immediately prior to administration of medications, the patient was re-assessed for adequacy to receive sedatives. The heart rate, respiratory rate, oxygen saturations, blood pressure, adequacy of pulmonary ventilation, and response to care were monitored throughout the procedure. The physical status of the patient was re-assessed after the procedure. After obtaining informed consent, the endoscope was passed under direct vision. Throughout the procedure, the patient's blood pressure, pulse, and oxygen saturations were monitored continuously. The pediatric colonoscope was introduced through the mouth, and advanced to the second part of duodenum. The upper GI endoscopy was accomplished without difficulty. The patient tolerated the procedure well. Scope In: 8:33:11 AM Scope Out: 8:36:16 AM Total Procedure Duration Time 0 hours 3 minutes 5 seconds Findings: Small (< 5 mm) varices were found in the upper third of the esophagus. They were 1 mm in largest diameter. A medium-sized hiatal hernia was present. No other significant abnormalities were identified in a careful examination of the stomach. Diffuse melanosis mucosa without active bleeding and with no stigmata of bleeding was found in the entire duodenum. Impression: - Small (< 5 mm) esophageal varices. - Medium-sized hiatal hernia. - Erythematous duodenopathy. - No specimens collected. Recommendation: - [facility] patient [facility]. - Resume regular diet. - Continue present medications. Procedure Code(s): --- Professional --- 17318, Esophagogastroduodenoscopy, flexible, transoral; diagnostic, including collection of specimen(s) by brushing or washing, when performed (separate procedure) CPT copyright 2017 [employer]. All rights reserved. The codes documented in this report are preliminary and upon ct scan special procedures technologist review may be revised to meet current compliance requirements. Kameron Chan DO 06/24/2022 9:00:01 AM This report has been signed electronically. Number of Addenda: 0 Note Initiated On: 06/24/2022 7:50 AM
--- NOTE | 2022-06-24 09:01 | OP.CCLET_ITS ---
06/24/2022 Levi Laird Re : Upper GI endoscopy procedure for Shante Trujillo Deahaider Laird This procedure was performed on Friday, June 24, 2022. My impressions and recommendations are as follows: Impressions : - Small (< 5 mm) esophageal varices. - Medium-sized hiatal hernia. - Erythematous duodenopathy. - No specimens collected. Recommendations : - Return patient to [facility]. - Resume regular diet. - Continue present medications. My findings are described in the full procedure note, which is enclosed. If I can be of further assistance, please feel free to contact me at . Sincerely, Kameron Chan, 06/24/2022 9:00:01 AM This report has been signed electronically.
--- NOTE | 2022-06-24 09:03 | OP.COLON_ITS ---
Patient Name: Shante Trujillo Procedure Date: 06/24/2022 8:36 AM Date of : 1945 Age: 76 Procedure: Colonoscopy Indications: Gastrointestinal bleeding Providers: Kameron Chan DO Medicines: Monitored Anesthesia Care Patient Profile: This is a 76 year old female. Refer to note in patient chart for documentation of history and physical. Patient has symptoms. Last Colonoscopy: 1 year ago. Complications: No immediate complications. Procedure: Pre-Anesthesia Assessment: - Prior to the procedure, a History and Physical was performed, and patient medications and allergies were reviewed. The risks and benefits of the procedure and the sedation options and risks were discussed with the patient. All questions were answered and informed consent was obtained. Patient identification and proposed procedure were verified by the physician in the pre-procedure area. Mental Status Examination: alert and oriented. Airway Examination: normal oropharyngeal airway and neck mobility. Respiratory Examination: clear to auscultation. CV Examination: normal. Prophylactic Antibiotics: The patient does not require prophylactic antibiotics. Prior Anticoagulants: The patient has taken no previous anticoagulant or antiplatelet agents. After reviewing the risks and benefits, the patient was deemed in satisfactory condition to undergo the procedure. The anesthesia plan was to use minimal sedation / analgesia (anxiolysis). Immediately prior to administration of medications, the patient was re-assessed for adequacy to receive sedatives. The heart rate, respiratory rate, oxygen saturations, blood pressure, adequacy of pulmonary ventilation, and response to care were monitored throughout the procedure. The physical status of the patient was re-assessed after the procedure. After I obtained informed consent, the scope was passed under direct vision. Throughout the procedure, the patient's blood pressure, pulse, and oxygen saturations were monitored continuously. The pediatric colonoscope was introduced through the anus and advanced to 15 cm into the ileum. The colonoscopy was performed without difficulty. The patient tolerated the procedure well. The quality of the bowel preparation was fair. Scope In: 8:39:39 AM Scope Out: 8:53:58 AM Total Procedure Duration Time 0 hours 14 minutes 19 seconds Findings: The perianal and digital rectal examinations were normal. A few small-mouthed diverticula were found in the recto-sigmoid colon and sigmoid colon. A moderate amount of stool was found in the rectum, in the recto-sigmoid colon, in the descending colon, at the splenic flexure and in the cecum. Lavage of the area was performed using greater than 500 mL of sterile water, resulting in clearance with fair visualization. Impression: - Preparation of the colon was fair. - Diverticulosis in the recto-sigmoid colon and in the sigmoid colon. - Stool in the rectum, in the recto-sigmoid colon, in the descending colon, at the splenic flexure and in the cecum. - No specimens collected. Recommendation: - Return patient to [facility] for [facility] care. - Resume previous diet. - Continue present medications. - No recommendation at this time regarding repeat colonoscopy due to age. Procedure Code(s): --- Professional --- 53016, Colonoscopy, flexible; diagnostic, including collection of specimen(s) by brushing or washing, when performed (separate procedure) CPT copyright 2017 [employer]. All rights reserved. The codes documented in this report are preliminary and upon professional fee coder review may be revised to meet current compliance requirements. Kameron Chan DO 06/24/2022 9:02:48 AM This report has been signed electronically. Number of Addenda: 0 Note Initiated On: 06/24/2022 8:36 AM
--- NOTE | 2022-06-24 09:03 | OP.CCLET_ITS ---
06/24/2022 Levi Laird Re : Colonoscopy procedure for Shante Trujillo Deahaider Laird This procedure was performed on Friday, June 24, 2022. My impressions and recommendations are as follows: Impressions : - Preparation of the colon was fair. - Diverticulosis in the recto-sigmoid colon and in the sigmoid colon. - Stool in the rectum, in the recto-sigmoid colon, in the descending colon, at the splenic flexure and in the cecum. - No specimens collected. Recommendations : - Return patient to [facility]. - Resume previous diet. - Continue present medications. - No recommendation at this time regarding repeat colonoscopy due to age. My findings are described in the full procedure note, which is enclosed. If I can be of further assistance, please feel free to contact me at . Sincerely, Kameron Chan, 06/24/2022 9:02:48 AM This report has been signed electronically.
[2022-06-24] MEDS: amLODIPine 10 MG Tablet PO (09:55)
[2022-06-24] MEDS: Isosorbide Mononitrate 60 MG Tablet PO (09:55)
[2022-06-24] MEDS: Ascorbic Acid 500 MG Tablet PO (09:55)
[2022-06-24] MEDS: Bumetanide 2 MG Tablet PO (09:55)
[2022-06-24] MEDS: Carvedilol 6.25 MG Tablet PO (09:55)
--- NOTE | 2022-06-24 12:58 | PN_ITS ---
Subjective Subjective Patient seen and examined. She has no active complaints. She had EGD and colonoscopy today. She has remained hemodynamically stable. Objective Data Objective Data Vital Signs: Vital Signs Temp Pulse Resp BP Pulse Ox O2 Del Method O2 Flow Rate 98.0 F 77 18 140/52 H 98 Nasal Cannula 2 06/24/22 10:27 06/24/22 10:27 06/24/22 10:27 06/24/22 10:27 06/24/22 10:06/24/22 10:06/24/22 11:34 Oxygen Flow Rate (L/min) 2 Oxygen Delivery Method Nasal Cannula Weight: 153 lb 0.013 oz Body Mass Index (BMI) 28.1 Intake & Output: Intake and Output for Last 24 Hours 06/22/22 06/23/22 06/24/22 23:59 23:59 23:59 Intake Total 767 / 767 360 / 360 Balance 767 / 767 360 / 360 Lab / Micro Data Result Diagrams: 06/24/22 04:46 06/24/22 04:46 Labs: Laboratory Results - last 24 hr 06/23/22 14:47: WBC 10.2, RBC 3.03 L, Hgb 8.9 L, Hct 29.4 L, MCV 97.0, MCH 29.4, MCHC 30.3 L, RDW Std Deviation 64.4 H, RDW Coeff of Becca 18.4 H, Plt Count 302, MPV 10.7, Immature Gran % (Auto) 2.300 H, Neut % (Auto) 81.4 H, Lymph % (Auto) 8.0 L, [place] % (Auto) 6.8, Eos % (Auto) 0.9, Baso % (Auto) 0.6, Absolute Neuts (auto) 8.3 H, Absolute Lymphs (auto) 0.82 L, Nucleated RBC % 0.6 06/23/22 14:47: PT 14.2, INR 1.1, APTT 40.5 H 06/23/22 14:47: Sodium 135 L, Potassium 4.5, Chloride 101, Carbon Dioxide 29.0, Anion Gap 5, BUN 20 H, Creatinine 3.61 H, Estim Creat Clear Calc 10.65, Est GFR (MDRD) Af Amer 16 L, Est GFR (MDRD) Non-Af 13 L, BUN/Creatinine Ratio 5.5 L, Glucose 103, Calcium 8.7 06/23/22 14:47: Blood Type A NEGATIVE, Antibody Screen NEGATIVE 06/23/22 14:47: Crossmatch See Detail 06/24/22 04:46: Sodium 129 L, Potassium 3.8, Chloride 98, Carbon Dioxide 27.0, Anion Gap 4 L, BUN 24 H, Creatinine 4.01 H, Estim Creat Clear Calc 9.59, Est GFR (MDRD) Af Amer 14 L, Est GFR (MDRD) Non-Af 12 L, BUN/Creatinine Ratio 6.0 L, Glucose 106, Calcium 8.6 06/24/22 04:46: WBC 10.9, RBC 3.23 L, Hgb 9.8 L, Hct 31.0 L, MCV 96.0, MCH 30.3, MCHC 31.6 L, RDW Std Deviation 65.2 H, RDW Coeff of [place] 18.4 H, Plt Count 267, MPV 10.1, Immature Gran % (Auto) 2.000 H, Neut % (Auto) 84.5 H, Lymph % (Auto) 5.5 L, [place] % (Auto) 6.3, Eos % (Auto) 1.1, Baso % (Auto) 0.6, Absolute Neuts (auto) 9.2 H, Absolute Lymphs (auto) 0.60 L, Nucleated RBC % 0.4, Differential Comment SCANNED, Anisocytosis 2+ 06/24/22 04:46: Hemoglobin A1c < 3.8 L 06/24/22 06:43: POC Glucose 96 Radiography Diagnostic Testing: Radiology Impression Chest X-Ray 06/24/22 05:30 IMPRESSION: No evidence of acute cardiopulmonary disease. Electronically Signed: Dev Munson DO at 6:02 EDT , Physical Exam Const alert, oriented x3 and no apparent distress General Appearance: cooperative HEENT normocephalic, head/scalp atraumatic, hearing grossly normal bilaterally and moist oral mucous membranes Eyes PERRL, EOMs intact bilaterally and conjunctivae normal Neck no lymphadenopathy and supple Resp normal respiratory effort, no retractions, no use of accessory muscles and clear to auscultation bilaterally Cardio regular rate, regular rhythm, S1 normal heart sound, S2 normal heart sound and no murmurs GI normal to inspection, nondistended, normoactive bowel sounds, soft to palpation, non-tender and non-distended Extremity normal to inspection, full ROM and no clubbing, cyanosis or edema Neuro oriented x3, CN's II-XII intact bilaterally, moves all extremities and no focal motor deficits Sensorium / Orientation: awake and alert Motor Exam: strength 5/5 throughout Psych affect normal Assessment & Plan Assessment/Plan (1) Anemia: (2) GI bleed: PLAN: Plan #Anemia in the setting of GI bleed * hb is 9.8 today after she was given a unit of PRBC * had a capsule endoscopy and was told today that it showed a large amount of blood in the terminal ileum and so was called to come to the ED * she admits to abdominal pain and dark stools * Colonoscopy today showed diverticulosis in the rectosigmoid colon and the sigmoid colon and stool in the rectum, rectosigmoid colon, descending colon and at the splenic flexure and in the cecum. * EGD showed medium size hiatal hernia and erythematous duodenal apathy and small esophageal varices. * on IV pantoprazole * * #Peptic ulcer disease * has had previous EGDs which showed bleeding AVMs and a deltoid lesion on the EGD * on IV PPI * EGD and colonoscopy findings as above * * #ESRD * on hemodialysis MWF. * consult nephrology to help with dialysis whilst she is in the hospital * On sevelamer * #Hypertension: On amlodipine, hydralazine and carvedilol as well as Bumex. #ELAINE:on CPAP qhs #History of COPD: On breathing treatments of bronchodilators. Not in exacerbation. #Restless leg syndrome: On pramipexole #CAD: On aspirin and high intensity statin as well as carvedilol and Imdur. Hold aspirin for now. #Type 2 diabetes mellitus: Diet controlled. On insulin sliding scale. Accu- Cheks ACHS. DVT prophylaxis: SCDs \ CODE STATUS: DNR CCA no intubation * Total time spent on evaluation and management of patient, reviewing chart and specialist notes, discussing plan with patient, discussion with nursing and ancillary staff as well as documentation: 43 mins Charges/Coding Visit Charges Inpatient E&M: 09256 Subs Hosp L2
[2022-06-24] MEDS: hydrALAZINE 50 MG Tablet 100 MG PO (13:06)
[2022-06-24] MEDS: SEVELAMER CARBONATE 800 MG TABLET PO (13:06)
--- NOTE | 2022-06-24 14:16 | CASEMGMT ---
RANDY MONTALVO NOTE: Therapy evals have been completed and reviewe. No additional therapy recommended. RN CM to room. Pt sitting up in chair in room. Dtr, Adilene, @ bedside. Intro role of CM to patient and family. Pt lives w/her dtr and son-in-law. She states she feels she is @ her baseline and denies having any discharge planning needs or concerns. She denies need for HHC. She goes to [facility] for OP HD MWF. Chair time 0640. PAL form explained re: Observation status for treatment of GIB.? Explained hospitalization will be paid per?her insurance policy for Outpatient billing?and condition will continue to be evaluated for Inpt necessity. Also let pt know that [facility] sends paper in the billing packet with their phone number if questions arise. Discussed Pharmacy section of PAL form and self administered medication guideline.? Pt verbalizes understanding and does not have further questions. ?Form signed, copy made and placed in chart, and original given to pt. Amanuel KATZ RN, CM
--- NOTE | 2022-06-24 16:17 | DS.PCM_ITS ---
Providers Date of Admission: 06/23/22 Date of Discharge: 06/24/22 Primary Care Physician: Dr. Levi Laird MD Consultations 06/23/22 16:51 Consult: Gastroenterology Routine Consulting Provider: [facility] Reason for Consult: GI bleed EMERGENT Consult: No MD Notified: Yes Date Notified: 06/23/22 Time Notified: 16:09 Method of Notification: Text Reason For Visit: GI BLEED Diagnosis Discharge Diagnosis (1) Anemia: Status: Acute Code(s): D64.9 - Anemia, unspecified (2) GI bleed: Status: Acute Code(s): K92.2 - Gastrointestinal hemorrhage, unspecified Plan #Anemia in the setting of GI bleed * hb is 9.8 today after she was given a unit of PRBC * had a capsule endoscopy and was told today that it showed a large amount of blood in the terminal ileum and so was called to come to the ED * she admits to abdominal pain and dark stools * Colonoscopy today showed diverticulosis in the rectosigmoid colon and the sigmoid colon and stool in the rectum, rectosigmoid colon, descending colon and at the splenic flexure and in the cecum. * EGD showed medium size hiatal hernia and erythematous duodenal apathy and small esophageal varices. * on IV pantoprazole * * #Peptic ulcer disease * has had previous EGDs which showed bleeding AVMs and a deltoid lesion on the EGD * on IV PPI * EGD and colonoscopy findings as above * * #ESRD * on hemodialysis MWF. * consult nephrology to help with dialysis whilst she is in the hospital * On sevelamer * #Hypertension: On amlodipine, hydralazine and carvedilol as well as Bumex. #ELAINE:on CPAP qhs #History of COPD: On breathing treatments of bronchodilators. Not in exacerbation. #Restless leg syndrome: On pramipexole #CAD: On aspirin and high intensity statin as well as carvedilol and Imdur. Hold aspirin for now. #Type 2 diabetes mellitus: Diet controlled. On insulin sliding scale. Accu- Cheks ACHS. DVT prophylaxis: SCDs \ CODE STATUS: DNR CCA no intubation * Total time spent on evaluation and management of patient, reviewing chart and specialist notes, discussing plan with patient, discussion with nursing and ancillary staff as well as documentation: 43 mins Medications at Discharge Home Medications amitriptyline 100 mg tablet 100 mg PO QHS mental health 04/09/13 aspirin 81 mg tablet,delayed release 81 mg PO DAILY HEART HEALTH 10/25/17 atorvastatin 80 mg tablet 80 mg PO DAILY CHOLESTEROL 10/25/17 amlodipine 10 mg tablet 10 mg PO DAILY BP 06/01/18 doxazosin 8 mg tablet 8 mg PO QHS blood pressure 08/20/18 omeprazole 40 mg capsule,delayed release 40 mg PO DAILY gerd 08/20/18 hydralazine 100 mg tablet 100 mg PO TID diuretic 01/01/19 bumetanide 2 mg tablet 2 mg PO DAILY diuretic 03/14/19 carvedilol 6.25 mg tablet 6.25 mg PO BID blood pressure 03/14/19 nitroglycerin 0.4 mg sublingual tablet 0.4 mg sublingual Q5M PRN CHEST PAIN 03/14/19 albuterol sulfate 1.25 mg/3 mL solution for nebulization 1.25 mg (3 mL) inhalation 4X/DAY Wheezing #360 mL 08/17/20 albuterol sulfate 90 mcg/actuation aerosol inhaler (ProAir HFA) 2 puff inhalation Q6H PRN sob 09/30/20 ropinirole 0.5 mg tablet 0.5 mg PO QHS Check with primary doctor 07/07/21 budesonide-formoterol HFA 160 mcg-4.5 mcg/actuation aerosol inhaler (Symbicort) 2 inh inhalation BID breathing #3 ea 03/10/22 acetaminophen 500 mg tablet (Acetaminophen Extra Strength) 1,000 mg PO DAILY PRN Pain 05/04/22 ascorbic acid (vitamin C) 500 mg tablet 500 mg PO DAILY SUPPLEMENT 05/04/22 prednisone 5 mg tablet 5 mg PO DAILY INFLAMMATION 05/04/22 sevelamer carbonate 800 mg tablet 800 mg PO TIDCM PHOSPHATE 05/04/22 isosorbide mononitrate 60 mg tablet,extended release 24 hr 60 mg PO DAILY Check with primary doctor 05/14/22 linaclotide 145 mcg capsule (Linzess) 145 mcg PO DAILY #30 caps 05/17/22 prednisone 20 mg tablet 40 mg PO DAILY@0800 #11 tabs 05/17/22 Hospital Course Operations None Procedures Colonoscopy and EGD Summary of Care Provided Minutes Spent on Discharge: 45 Hospital Course: JULISSA VEGA, is a 76 F? 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 She had a capsule endoscopy last week which showed a lot of blood in her intestine. She was called to come to the ED by her GI's office. She also complained of dark stools for the past week, increased fatigue and weakness. She denied any abdominal pain, chest pain, nausea, vomiting or any other symptoms. Review of systems is otherwise negative. Vitals were Bp of 178.56, MT of 80, RR of 16 and temp of 98F, with oxygen sats of 97% on room air. CBC showed hb of 8.9, wbc of 10.2 and platelets of 302. INR is 1.1. Chemistry showed sodium of 1135, bicarb of 29 and Cr of 3.1. She is on dialysis and had a full run of dialysis today. Gastroenterology wants to do a colonoscopy tomorrow, hence patient was admitted. Patient was transfused with one unit of PRBC per GI. She had EGD which showed diverticulosis in the sigmoid and rectosigmoid colon and the EGD showed medium sized hiatal hernia and erythematous duodenopathy and small esophageal varices. She did well after the procedure and tolerated an oral diet. She remained stable and was discharged home on 06/24/2022. She is to follow up with her PCP and gastroenterology within 1-2 weeks. Patient seen and examined. She had no active complaints and had an uneventful night. Review of systems is otherwise negative. Labs and vitals reviewed. Home meds reviewed and reconciled. Physical Exam Const alert, oriented x3 and no apparent distress General Appearance: cooperative, comfortable and well kempt Orientation / Consciousness: awake HEENT normocephalic, head/scalp atraumatic, hearing grossly normal bilaterally and moist oral mucous membranes Mouth: oral and palatal mucosa normal Eyes PERRL, EOMs intact bilaterally and conjunctivae normal Neck no lymphadenopathy and supple Resp normal respiratory effort, no retractions, no use of accessory muscles and clear to auscultation bilaterally Cardio regular rate, regular rhythm, S1 normal heart sound, S2 normal heart sound and no murmurs GI normal to inspection, nondistended, normoactive bowel sounds, soft to palpation, non-tender and non-distended Extremity normal to inspection, full ROM and no clubbing, cyanosis or edema Skin no rashes or lesions noted Neuro oriented x3, CN's II-XII intact bilaterally, moves all extremities and no focal motor deficits Sensorium / Orientation: awake and alert Motor Exam: strength 5/5 throughout Psych affect normal Weight / BMI Weight Weight: 153 lb 0.013 oz Body Mass Index (BMI) 28.1 ABG / Lab / Microbiology Data Result Diagrams: 06/24/22 04:46 06/24/22 04:46 Laboratory: Laboratory Results - last 24 hr 06/23/22 14:47: Crossmatch See Detail 06/24/22 04:46: Sodium 129 L, Potassium 3.8, Chloride 98, Carbon Dioxide 27.0, Anion Gap 4 L, BUN 24 H, Creatinine 4.01 H, Estim Creat Clear Calc 9.59, Est GFR (MDRD) Af Amer 14 L, Est GFR (MDRD) Non-Af 12 L, BUN/Creatinine Ratio 6.0 L, Glucose 106, Calcium 8.6 06/24/22 04:46: WBC 10.9, RBC 3.23 L, Hgb 9.8 L, Hct 31.0 L, MCV 96.0, MCH 30.3, MCHC 31.6 L, RDW Std Deviation 65.2 H, RDW Coeff of Becca 18.4 H, Plt Count 267, MPV 10.1, Immature Gran % (Auto) 2.000 H, Neut % (Auto) 84.5 H, Lymph % (Auto) 5.5 L, [place] % (Auto) 6.3, Eos % (Auto) 1.1, Baso % (Auto) 0.6, Absolute Neuts (auto) 9.2 H, Absolute Lymphs (auto) 0.60 L, Nucleated RBC % 0.4, Differential Comment SCANNED, Anisocytosis 2+ 06/24/22 04:46: Hemoglobin A1c < 3.8 L 06/24/22 06:43: POC Glucose 96 Radiography Diagnostic Testing: Radiology Impression Chest X-Ray 06/24/22 05:30 IMPRESSION: No evidence of acute cardiopulmonary disease. Electronically Signed: Dev Munson DO at 6:02 EDT , D/C Instructions Discharge Diet: Low fat / Low cholesterol Discharge Activity: Return to Normal Activity Call your doctor if you observe: Fever of 101 or Higher, Shortness of breath, Swelling in the ankles, Chest pain and Increased palpitations (irregular heartbeat) Meaningful Use Info Meaningful Use Diagnoses (Choose all that apply): None applicable Discharge Plan Admission Admit Date/Time: 06/23/22 16:04 Primary Reason for Your Visit: acute on chronic anemia due to GI bleed Attending Provider: Jo Ken Primary Care Provider: Levi Laird Instructions Patient Instructions: GI Bleeding Ch Discharge Orders/Prescriptions Prescriptions: Continued albuterol sulfate [ProAir HFA] 90 mcg/actuation HFA aerosol inhaler 2 puff inhalation Q6H PRN (Reason: sob) ropinirole 0.5 mg tablet 0.5 mg PO QHS Label Comments: TAKE 1 TABLET BY MOUTH ONCE DAILY budesonide-formoterol [Symbicort] 160-4.5 mcg/actuation HFA aerosol inhaler 2 inh INHALATION BID Qty: 3 3RF Rx Instructions: administer with spacer, rinse mouth after each use amitriptyline 100 MG tablet 100 mg PO QHS Label Comments: MENTAL HEALTH atorvastatin 80 MG tablet 80 mg PO DAILY Label Comments: aspirin 81 MG tablet 81 mg PO DAILY Hold Instructions: Resume on 05/24/22. amlodipine 10 MG tablet 10 mg PO DAILY omeprazole 40 MG capsule,delayed release(DR/EC) 40 mg PO DAILY Hold Instructions: Resume on 05/08/21. doxazosin 8 MG tablet 8 mg PO QHS hydralazine 100 mg tablet 100 mg PO TID nitroglycerin 0.4 MG tablet, sublingual 0.4 mg SL Q5M PRN (Reason: CHEST PAIN) carvedilol 6.25 MG tablet 6.25 mg PO BID bumetanide 2 MG tablet 2 mg PO DAILY prednisone 5 mg tablet 5 mg PO DAILY acetaminophen [Acetaminophen Extra Strength] 500 mg Tablet 1,000 mg PO DAILY PRN (Reason: Pain) sevelamer carbonate 800 mg tablet 800 mg PO TIDCM ascorbic acid (vitamin C) 500 MG tablet 500 mg PO DAILY isosorbide mononitrate 60 mg tablet extended release 24 hr 60 mg PO DAILY prednisone 20 mg Tablet 40 mg PO DAILY@0800 Qty: 11 0RF Rx Instructions: Take 2 tablets daily for 3 days then 1 tablet daily for 3 days then half tablet daily for 4 days then resume your 5 mg of prednisone daily. albuterol sulfate 1.25 mg/3 mL solution for nebulization 1.25 mg INHALATION 4X/DAY Qty: 360 6RF Linzess 145 mcg capsule 145 mcg PO DAILY Qty: 30 3RF Referrals / Follow Up: Kameron Chan DO [Med Staff - Active Staff] - Within 2 Weeks Levi Laird MD [Primary Care Provider] - Within 2 Weeks Disposition Disposition (needs filled in before D/C Order can be placed): Home, Self Care Charges/Coding Visit Charges Inpatient E&M: 16475 Disch Hosp >30min
== END 2022-06-24 16:39 | disposition home or self-care (01) ==
LOC: ED 16:02 → MS3 16:28
PROVIDERS: Anesthesiology; Internal Medicine Gastroenterology; Admitting Provider Student in an Organized Health Care Education/Training Program; Emergency Provider Emergency Medicine; PCP Family Medicine; Visit Provider Student in an Organized Health Care Education/Training Program
PROC: 0DJD8ZZ Inspection of Lower Intestinal Tract, Via Natural or Artificial Opening Endoscopic (ICD-10-PCS; CPT 45378; principal; 2022-06-24 08:00)
DX: D64.9 Anemia, unspecified (principal); I85.00 Esophageal varices without bleeding; I13.2 Hypertensive heart and chronic kidney disease with heart failure and with stage 5 chronic kidney disease, or end stage renal disease; Z99.2 Dependence on renal dialysis; J44.9 Chronic obstructive pulmonary disease, unspecified; I50.32 Chronic diastolic (congestive) heart failure; E11.22 Type 2 diabetes mellitus with diabetic chronic kidney disease; N18.6 End stage renal disease; K92.2 Gastrointestinal hemorrhage, unspecified; I25.10 Atherosclerotic heart disease of native coronary artery without angina pectoris; Z79.52 Long term (current) use of systemic steroids; Z79.82 Long term (current) use of aspirin; E78.5 Hyperlipidemia, unspecified; Z87.891 Personal history of nicotine dependence; Z79.51 Long term (current) use of inhaled steroids; K44.9 Diaphragmatic hernia without obstruction or gangrene; K57.30 Diverticulosis of large intestine without perforation or abscess without bleeding; Z79.899 Other long term (current) drug therapy
CPT/HCPCS: 45378; 43235; 36415; 36430; 71045; 80048; 82962; 83036; 85025; 85610; 85730; 86850; 86900; 86901; 86920; 86922; 93005; 94640; 96365; 96366; 96367; 96375; 96376; 97161; 97165; 99221; 99284; J7040; J7050; P9016; A4216; G0378

== ENCOUNTER 2023-05-20 13:24 | Emergency (ER) | payer MEDICARE, MEDICAID, SELFPAY ==
[2023-05-20] VITALS (12 sets, daily range): BP systolic 134–148; BP diastolic 54–78; PULSE 64–81; RESP 14–23; TEMP 36.4–37.2; O2SAT 90–99; BMI 32.2
--- NOTE | 2023-05-20 13:45 | EKG12_ITS ---
Test Reason : SOB Blood Pressure : / mmHG Vent. Rate : 078 BPM Atrial Rate : 078 BPM P-R Int : 204 ms QRS Dur : 108 ms QT Int : 438 ms P-R-T Axes : 111 039 079 degrees QTc Int : 499 ms Normal sinus rhythm with sinus arrhythmia Nonspecific ST abnormality Prolonged QT Abnormal ECG Confirmed by CHAITANYA DOVE, CARLOS ENRIQUE ([id number]), index editor JALIL JENSEN ([id number]) on 05/22/2023 10:48:09 AM Referred By: GE/MICK Confirmed By:CARLOS ENRIQUE TAVARES MD
--- NOTE | 2023-05-20 13:46 | EX.ED.DYSGE1 ---
HPI History of Present Illness Chief Complaint: Shortness of Breath Informant: patient and family Narrative Narrative: 77-year-old presenting to the emergency room for chief complaint of dyspnea. Patient has a history of coronary artery disease, COPD on home oxygen, end-stage renal disease on dialysis, obstructive sleep apnea, congestive heart failure, and pulmonary hypertension. She sees Dr. Ferreira with pulmonology. Patient states on Sunday she began to notice a change in her breathing with cough nasal congestion and some wheezing. She has been using home aerosols. Noted to have more abdominal breathing today. Patient denies any chest pain. She feels some phlegm in her chest but does not get it up. No fever. [facility] Medical History (HFpEF) heart failure with preserved ejection fraction Abdominal pain Abdominal pain Accidental fall Acute and chronic respiratory failure with hypoxia Acute bronchospasm Acute on chronic blood loss anemia Acute on chronic respiratory failure with hypoxia Acute renal failure superimposed on stage 3 chronic kidney disease Acute upper gastrointestinal bleeding Anemia Anemia Anemia Anemia, unspecified Anxiety Arthritis Atherosclerotic heart disease of [place] coronary artery without angina pectoris CAD (coronary artery disease) Chronic diastolic heart failure Chronic hyponatremia Chronic respiratory failure with hypoxia CKD (chronic kidney disease), stage III Congestive heart failure COPD (chronic obstructive pulmonary disease) Cough Diabetes mellitus type 2 in obese Dyslipidemia Easy bruising End-stage renal disease on hemodialysis ESRD (end stage renal disease) on dialysis ESRD on dialysis Essential hypertension Fever Fever Gastritis Generalized weakness GI bleed GI bleed History of blood transfusion History of renal dialysis HTN (hypertension) Hypoxia Iron deficiency anemia Leg cramps Leukocytosis Morbid obesity with BMI of 40.0-44.9, adult Non-rheumatic mitral regurgitation Non-rheumatic tricuspid valve insufficiency On home oxygen therapy ELAINE (obstructive sleep apnea) Pleural effusion Pneumonia Pulmonary hypertension Restless leg syndrome Restless legs Rib contusion Secondary pulmonary hypertension Shortness of breath on exertion Smoking greater than 40 pack years Toe fracture, left Toxic metabolic encephalopathy Valvular heart disease Wears dentures Wears glasses Home Medications amitriptyline 100 mg tablet 100 mg PO QHS mental health 04/09/13 [History Last Taken 05/13/22 21:00] atorvastatin 80 mg tablet 80 mg PO DAILY CHOLESTEROL 10/25/17 [History Last Taken 05/13/22 21:30] amlodipine 10 mg tablet 10 mg PO DAILY BP 06/01/18 [History Last Taken 05/14/22 08:30] doxazosin 8 mg tablet 8 mg PO QHS blood pressure 08/20/18 [History Last Taken 05/13/22 21:30] omeprazole 40 mg capsule,delayed release 40 mg PO DAILY gerd 08/20/18 [History Last Taken 05/13/22 21:30] hydralazine 100 mg tablet 100 mg PO TID diuretic 01/01/19 [History Last Taken 05/14/22 14:00] bumetanide 2 mg tablet 2 mg PO DAILY diuretic 03/14/19 [History Last Taken 05/14/22 08:30] nitroglycerin 0.4 mg sublingual tablet 0.4 mg sublingual Q5M PRN CHEST PAIN 03/14/19 [History Last Taken Unknown] albuterol sulfate 90 mcg/actuation aerosol inhaler (ProAir HFA) 2 puff inhalation Q6H PRN sob 09/30/20 [History Last Taken 05/13/22 08:30] ropinirole 0.5 mg tablet 0.5 mg PO QHS Check with primary doctor 07/07/21 [History Last Taken 05/13/22 21:30] acetaminophen 500 mg tablet (Acetaminophen Extra Strength) 1,000 mg PO DAILY PRN Pain 05/04/22 [History Last Taken 05/14/22 14:00] ascorbic acid (vitamin C) 500 mg tablet 500 mg PO DAILY SUPPLEMENT 05/04/22 [History Last Taken 05/14/22 08:30] sevelamer carbonate 800 mg tablet 800 mg PO TIDCM PHOSPHATE 05/04/22 [History Last Taken 05/14/22 14:00] isosorbide mononitrate 60 mg tablet,extended release 24 hr 60 mg PO DAILY Check with primary doctor 05/14/22 [History Last Taken 05/13/22 21:30] albuterol sulfate 1.25 mg/3 mL solution for nebulization 1.25 mg (3 mL) inhalation 4X/DAY Wheezing #360 mL 03/20/23 [Rx Last Taken Unknown] budesonide-formoterol HFA 160 mcg-4.5 mcg/actuation aerosol inhaler (Symbicort) 2 inh inhalation BID breathing #3 ea 05/01/23 [Rx Last Taken Unknown] aspirin 81 mg tablet,delayed release (Adult Low Dose Aspirin) 81 mg PO DAILY 05/17/23 [History Last Taken Unknown] carvedilol 12.5 mg tablet 12.5 mg PO BID #180 tabs 05/17/23 [Rx Last Taken Unknown] guaifenesin 1,200 mg tablet, extended release 12 hr 1,200 mg PO Q12H PRN 05/17/23 [History Last Taken Unknown] doxycycline monohydrate 100 mg capsule 100 mg PO BID #14 CAPSULES 05/20/23 [Rx Last Taken Unknown] prednisone 20 mg tablet 60 mg (3 x 20 mg) PO DAILY #15 TABLETS 05/20/23 [Rx Last Taken Unknown] Allergy/AdvReac Type Severity Reaction Status Date / Time Penicillins Allergy Hives Verified 05/20/23 13:25 adhesive tape AdvReac Other Verified 05/20/23 13:25 Family History Mother Heart disease Surgical History H/O four vessel coronary artery bypass graft (~04/16/13) Hx of colonoscopy Hx of esophagogastroduodenoscopy Social History household members: family Smoking Status: Former smoker quit date: 03/05/10 alcohol intake: current alcohol intake frequency: other substance use type: does not use ROS ROS ED Constitutional Constitutional ED: Denies chills, fever(s) or weight loss Eyes Eyes: Denies change in vision or diplopia ENT ENT ED: Reports rhinorrhea; Denies ear pain or sore throat Cardiovascular Cardiovascular: Denies chest pain, orthopnea, palpitations or racing heartbeat Respiratory/Chest Respiratory/Chest: Reports cough, dyspnea and dyspnea on exertion; Denies orthopnea Gastrointestinal Gastrointestinal: Denies abdominal pain, diarrhea, nausea or vomiting Genitourinary Genitourinary ED: Denies dysuria, hematuria or urinary frequency Musculoskeletal Musculoskeletal: Denies arthralgias or myalgias Integumentary Denies abscess or rash Neurologic Neurologic: Denies headache(s) or weakness Psychiatric Psychiatric: Denies anxiety, depression, suicidal ideation or suicidal thoughts Endocrine Endocrinology: Denies polydipsia, polyphagia or polyuria Allergic/Immunologic Allergic/Immunologic ED: Denies mouth swelling, tongue swelling or urticaria EXAM Physical Exam Const Vital Signs: 05/20/23 13:25 05/20/23 13:27 05/20/23 13:46 Temperature 99 F Temperature Source Temporal Pulse Rate 81 Respiratory Rate 22 H Respiratory Effort Respiratory Depth Respiratory Pattern Blood Pressure 140/54 H Blood Pressure Mean 82 Pulse Ox 90 94 Oxygen Delivery Method Nasal Cannula Nasal Cannula Room Air Oxygen Flow Rate (L/min) 2 2 05/20/23 13:47 05/20/23 13:53 05/20/23 14:12 Temperature Temperature Source Pulse Rate 73 76 Respiratory Rate 16 23 H Respiratory Effort Short of Breath Respiratory Depth Shallow Respiratory Pattern Tachypnea Blood Pressure Blood Pressure Mean Pulse Ox 95 Oxygen Delivery Method Nasal Cannula Oxygen Flow Rate (L/min) 2 05/20/23 14:20 05/20/23 14:30 05/20/23 14:40 Temperature Temperature Source Pulse Rate 76 75 76 Respiratory Rate 14 17 18 Respiratory Effort Respiratory Depth Respiratory Pattern Blood Pressure Blood Pressure Mean Pulse Ox 95 96 96 Oxygen Delivery Method Oxygen Flow Rate (L/min) 05/20/23 14:50 05/20/23 15:00 05/20/23 16:00 Temperature Temperature Source Pulse Rate 77 77 65 Respiratory Rate 18 17 Respiratory Effort Respiratory Depth Respiratory Pattern Blood Pressure 142/78 H 148/61 H Blood Pressure Mean 99 90 Pulse Ox 96 96 98 Oxygen Delivery Method Room Air Oxygen Flow Rate (L/min) 2 Positive well nourished and well developed General Appearance ED: well developed HEENT Reports normocephalic, head/scalp atraumatic and moist mucous membranes Eyes PERRL and EOMs intact bilaterally Neck no lymphadenopathy, supple and no JVD Resp Resp Narrative: Increased work of breathing with abdominal breathing. Auscultation: wheezes expiratory wheezes and throughout Cardio regular rate, regular rhythm and no murmurs GI normal to inspection, nondistended, normoactive bowel sounds and non-tender Palpation: soft Back/Spine no CVA tenderness and normal ROM Extremity normal to inspection General Extremety ED: Negative for edema General Extremity: Negative for edema Neuro oriented x3 and CN's II-XII intact bilaterally Sensorium / Orientation: alert Motor Exam: strength 5/5 throughout Psych mental status grossly normal Mood & Affect: Negative for depressed or tearful Skin no rashes or lesions noted and no wounds Skin Narrative: Chronic skin discoloration of extremities MDM MDM MDM Narrative Medical decision making narrative: My independent interpretation of the chest x-ray is no acute process. White count 7.5. Hemoglobin 8.3. She does have chronic anemia in the setting of renal disease and hemodialysis. Platelet count is 232. BUN 44 creatinine 5.65 troponin 36. Patient received breathing treatments and Solu-Medrol. Repeat exam shows the wheezing to have resolved. She is resting more comfortably. She is on her home O2 settings. At this point I think the patient most likely has a viral illness which caused COPD flare. Will treat him with steroids continued breathing treatments and I will write for some doxycycline as there is been a change in cough with mucus production. Patient understands return instructions History & Record Review Discussion w/independent historian: Patient and Significant other Lab Data Attestation: I reviewed the patient's lab results. Labs: Laboratory Results - last 24 hr 05/20/23 13:50 WBC 7.5 RBC 3.03 L Hgb 8.3 L Hct 27.8 L MCV 91.7 MCH 27.4 MCHC 29.9 L RDW Std Deviation 62.7 H RDW Coeff of Becca 18.6 H Plt Count 232 MPV 10.6 Immature Gran % (Auto) 1.100 H Neut % (Auto) 77.1 H Lymph % (Auto) 10.0 L [place] % (Auto) 6.9 Eos % (Auto) 4.4 Baso % (Auto) 0.5 Absolute Neuts (auto) 5.8 Absolute Lymphs (auto) 0.75 L Nucleated RBC % 0 Sodium 137 Potassium 4.7 Chloride 101 Carbon Dioxide 30.0 Anion Gap 6 BUN 44 H Creatinine 5.65 H Estim Creat Clear Calc 7.98 Est GFR (MDRD) Af Amer 9 L Est GFR (MDRD) Non-Af 8 L BUN/Creatinine Ratio 7.8 L Glucose 97 Calcium 7.7 L Troponin I High Sens 36 Radiography Diagnostic Testing: Clinical Impression(s) from Imaging Studies Chest X-Ray 05/20/23 15:00 IMPRESSION: There are no acute findings. Electronically Signed: Evelio Ross MD at 15:21 EDT , EKG Initial EKG: Attestation: I personally reviewed and interpreted this EKG as follows: Comments: Normal sinus rhythm with a ventricular rate of 78 bpm. No definitive features of ACS or ectopy noted. Discharge Plan Triage Chief Complaint: Shortness of Breath ED Provider: Yehuda Blanchard Dx/Rx/DC Orders Clinical Impression: End-stage renal disease on hemodialysis, CAD (coronary artery disease), Asthma exacerbation in COPD Instructions: ED COPD Flare Prescriptions: New prednisone 20 mg tablet 60 mg PO DAILY Qty: 15 0RF doxycycline monohydrate 100 mg capsule 100 mg PO BID Qty: 14 0RF No Action albuterol sulfate [ProAir HFA] 90 mcg/actuation HFA aerosol inhaler 2 puff inhalation Q6H PRN (Reason: sob) ropinirole 0.5 mg tablet 0.5 mg PO QHS Patient Comments: TAKE 1 TABLET BY MOUTH ONCE DAILY guaifenesin 1,200 mg tablet extended release 12hr 1,200 mg PO Q12H PRN aspirin [Adult Low Dose Aspirin] 81 mg tablet,delayed release (DR/EC) 81 mg PO DAILY amitriptyline 100 MG tablet 100 mg PO QHS Patient Comments: MENTAL HEALTH atorvastatin 80 MG tablet 80 mg PO DAILY Patient Comments: amlodipine 10 MG tablet 10 mg PO DAILY omeprazole 40 MG capsule,delayed release(DR/EC) 40 mg PO DAILY Hold Instructions: Resume on 05/08/21. doxazosin 8 MG tablet 8 mg PO QHS hydralazine 100 mg tablet 100 mg PO TID nitroglycerin 0.4 MG tablet, sublingual 0.4 mg SL Q5M PRN (Reason: CHEST PAIN) bumetanide 2 MG tablet 2 mg PO DAILY acetaminophen [Acetaminophen Extra Strength] 500 mg Tablet 1,000 mg PO DAILY PRN (Reason: Pain) sevelamer carbonate 800 mg tablet 800 mg PO TIDCM ascorbic acid (vitamin C) 500 MG tablet 500 mg PO DAILY isosorbide mononitrate 60 mg tablet extended release 24 hr 60 mg PO DAILY albuterol sulfate 1.25 mg/3 mL solution for nebulization 1.25 mg INHALATION 4X/DAY Qty: 360 6RF budesonide-formoterol [Symbicort] 160-4.5 mcg/actuation HFA aerosol inhaler 2 inh INHALATION BID Qty: 3 3RF Rx Instructions: administer with spacer, rinse mouth after each use carvedilol 12.5 mg tablet 12.5 mg PO BID Qty: 180 3RF Rx Instructions: must administer with a meal/food Primary Care Provider: Levi Laird Referrals: Levi Laird MD [Primary Care Provider] - As Needed Disposition Disposition: Home, Self Care
[2023-05-20] MEDS: Ipratropium/Albuterol Sulfate 3 ML AMPUL.NEB INHALATION (13:52)
[2023-05-20 14:04] LABS: Absolute Lymphocyte Count 0.75 X10^3/uL (0.83-4.51); Absolute Neutrophil Count 5.8 X10^3/uL (2.0-7.7); Basophil# 0.04 X10^3/uL; Basophil% 0.5 % (0-1); Eosinophil# 0.33 X10^3/uL; Eosinophils% 4.4 % (0-5); Hematocrit 27.8 % (37-47); Hemoglobin 8.3 g/dL (12.0-15.0); Lymphocyte # 0.75 X10^3/ul (0.83-4.51); Mean Corp Hgb Conc 29.9 g/dL (32-36); Mean Corpuscular Hgb 27.4 pg (27.0-32.0); Mean Corpuscular Volume 91.7 fL (81-99); Mean Platelet Vol. 10.6 fl (6.2-12.0); Monocyte# 0.52 X10^3/uL; Monocyte% 6.9 % (0-10); NRBC Flagged by Analyzer 0 % (0-5); Neutrophil # 5.81 X10^3/uL (2.7-7.7); Neutrophil % 77.1 % (47-70); Platelet Count 232 K/mm3 (150-450); RBC Distribution Width CV 18.6 % (11.6-14.6); RBC Distribution Width SD 62.7 fl (35.1-43.9); Red Blood Count 3.03 M/mm3 (4.2-5.4); White Blood Count 7.5 K/mm3 (4.4-11.0)
[2023-05-20] MEDS: Albuterol 2.5 MG/3 ML VIAL.NEB. INHALATION ×3 (14:05)
[2023-05-20] MEDS: MethylPREDNISolone 125 MG/2 ML Vial IV (14:05)
[2023-05-20 14:20] LABS: Anion Gap 6 (5-15); BUN 44 mg/dL (7-18); BUN/Creat Ratio 7.8 RATIO (10-20); Calcium,Total 7.7 mg/dL (8.5-10.1); Chloride 101 mmol/L (98-107); Creatinine, Serum 5.65 mg/dL (0.55-1.02); EST Glomerular Filtration Rate 8 mL/min (>60); Est Glom Filt Rate - Afr Amer 9 mL/min (>60); Estimated Creatinine Clearance 7.98 ml/min; Glucose 97 mg/dL (74-106); Potassium 4.7 mmol/L (3.5-5.1); Sodium Level 137 mmol/L (136-145); Troponin-I HS 36 pg/mL (3.0-54.0)
--- NOTE | 2023-05-20 15:00 | RAD_ITS ---
STUDY: XR Chest 1 View 05/20/2023 2:59 PM REASON FOR EXAM: Female, 77 years old. dyspnea COMPARISON: 4.22.23 TECHNIQUE: XR Chest 1 View FINDINGS: There is no demonstrated pleural abnormality. There is an elevated right hemidiaphragm. There are multiple median sternotomy wires. There is no pneumothorax. Right vascular catheter. Tip in the superior vena caval atrial junction. Normal heart size. Normal mediastinum. Normal james. Prominent appearing increased interstitial lung markings. Normal visualized pulmonary arteries. There is atherosclerotic calcification of the aortic arch with tortuosity. There are diffuse degenerative changes of the visualized thoracic spine. There is degenerative osteoarthritis of the bilateral shoulders. There are no acute findings of the upper abdomen. RAD/Chest 1 View (Portable) IMPRESSION: There are no acute findings. Electronically Signed: Evelio Ross MD at 15:21 EDT ,
== END 2023-05-20 16:39 | disposition home or self-care (01) ==
PROVIDERS: Emergency Provider Emergency Medicine; PCP Family Medicine; Visit Provider Emergency Medicine
DX: J44.1 Chronic obstructive pulmonary disease with (acute) exacerbation (principal); I13.2 Hypertensive heart and chronic kidney disease with heart failure and with stage 5 chronic kidney disease, or end stage renal disease; Z99.2 Dependence on renal dialysis; E11.22 Type 2 diabetes mellitus with diabetic chronic kidney disease; N18.6 End stage renal disease; D63.1 Anemia in chronic kidney disease; I25.10 Atherosclerotic heart disease of native coronary artery without angina pectoris; Z87.891 Personal history of nicotine dependence; Z99.81 Dependence on supplemental oxygen; G47.33 Obstructive sleep apnea (adult) (pediatric); Z79.899 Other long term (current) drug therapy; G25.81 Restless legs syndrome; Z79.51 Long term (current) use of inhaled steroids; Z79.82 Long term (current) use of aspirin
CPT/HCPCS: 96374; 99284; 71045; 80048; 84484; 85025; 87040; 93005; 94640; A4216

== ENCOUNTER 2023-05-22 13:13 | Inpatient (IN) | payer MEDICARE, MEDICAID, SELFPAY ==
[2023-05-22] VITALS (17 sets, daily range): BP systolic 144–175; BP diastolic 57–87; PULSE 80–90; RESP 15–27; TEMP 36.6–36.9; O2SAT 93–100; BMI 32.4; BMI 28.7
--- NOTE | 2023-05-22 14:15 | EKG12_ITS ---
Test Reason : WEAKNES Blood Pressure : / mmHG Vent. Rate : 080 BPM Atrial Rate : 080 BPM P-R Int : 180 ms QRS Dur : 098 ms QT Int : 426 ms P-R-T Axes : 068 045 084 degrees QTc Int : 491 ms Normal sinus rhythm Possible Left atrial enlargement Prolonged QT Abnormal ECG Confirmed by Wilbur Cao ([id number]), department editor DENVER KRAUSE ([id number]) on 05/24/2023 11:02:38 AM Referred By: Confirmed By:Wilbur Cao
--- NOTE | 2023-05-22 14:20 | EX.ED.DYSGE1 ---
HPI History of Present Illness Chief Complaint: Shortness of Breath Informant: family Narrative Narrative: Patient brought in secondary to continued shortness of breath. History provided by family members at bedside. Family states that she has a history of recurrent anemia and when her hemoglobin gets too low she will become short of breath and have difficulty staying awake as they are noticing her doing today. They report she has had increased shortness of breath since Sunday. She was seen here in the ER 2 days ago where she had wheezing noted throughout. She was given aerosol treatments with improvement. She was discharged on doxycycline and steroids. Family states yesterday she seemed to be doing pretty well but today appears to be working harder to breathe and has had difficulty staying awake. Again, they state this typically happens when her hemoglobin drops below 8. [facility] Medical History (Updated 05/22/23 @ 15:[address] Hina Warren MD) (HFpEF) heart failure with preserved ejection fraction Abdominal pain Accidental fall Acute and chronic respiratory failure with hypoxia Acute bronchospasm Acute on chronic blood loss anemia Acute on chronic respiratory failure with hypoxia Acute renal failure superimposed on stage 3 chronic kidney disease Acute upper gastrointestinal bleeding Anemia Anxiety Arthritis Atherosclerotic heart disease of [place] coronary artery without angina pectoris CAD (coronary artery disease) Chronic diastolic heart failure Chronic hyponatremia Chronic respiratory failure with hypoxia CKD (chronic kidney disease), stage III Congestive heart failure COPD (chronic obstructive pulmonary disease) Cough Diabetes mellitus type 2 in obese Dyslipidemia Easy bruising End-stage renal disease on hemodialysis Essential hypertension Gastritis Generalized weakness GI bleed GI bleed History of blood transfusion History of renal dialysis Hypoxia Iron deficiency anemia Leg cramps Leukocytosis Morbid obesity with BMI of 40.0-44.9, adult Non-rheumatic mitral regurgitation Non-rheumatic tricuspid valve insufficiency On home oxygen therapy ELAINE (obstructive sleep apnea) Pleural effusion Pneumonia Pulmonary hypertension Restless leg syndrome Restless legs Rib contusion Secondary pulmonary hypertension Shortness of breath on exertion Smoking greater than 40 pack years Toe fracture, left Toxic metabolic encephalopathy Valvular heart disease Wears dentures Wears glasses Home Medications amitriptyline 100 mg tablet 100 mg PO QHS mental health 04/09/13 [History Last Taken 05/13/22 21:00] atorvastatin 80 mg tablet 80 mg PO DAILY CHOLESTEROL 10/25/17 [History Last Taken 05/13/22 21:30] amlodipine 10 mg tablet 10 mg PO DAILY BP 03/30/19 [History Last Taken 05/14/22 08:30] doxazosin 8 mg tablet 8 mg PO QHS blood pressure 08/20/18 [History Last Taken 05/13/22 21:30] omeprazole 40 mg capsule,delayed release 40 mg PO DAILY gerd 08/20/18 [History Last Taken 05/13/22 21:30] hydralazine 100 mg tablet 100 mg PO TID diuretic 01/01/19 [History Last Taken 05/14/22 14:00] bumetanide 2 mg tablet 2 mg PO DAILY diuretic 03/14/19 [History Last Taken 05/14/22 08:30] nitroglycerin 0.4 mg sublingual tablet 0.4 mg sublingual Q5M PRN CHEST PAIN 03/14/19 [History Last Taken Unknown] albuterol sulfate 90 mcg/actuation aerosol inhaler (ProAir HFA) 2 puff inhalation Q6H PRN sob 09/30/20 [History Last Taken 05/13/22 08:30] ropinirole 0.5 mg tablet 0.5 mg PO QHS Check with primary doctor 07/07/21 [History Last Taken 05/13/22 21:30] acetaminophen 500 mg tablet (Acetaminophen Extra Strength) 1,000 mg PO DAILY PRN Pain 05/04/22 [History Last Taken 05/14/22 14:00] ascorbic acid (vitamin C) 500 mg tablet 500 mg PO DAILY SUPPLEMENT 05/04/22 [History Last Taken 05/14/22 08:30] sevelamer carbonate 800 mg tablet 800 mg PO TIDCM PHOSPHATE 05/04/22 [History Last Taken 05/14/22 14:00] isosorbide mononitrate 60 mg tablet,extended release 24 hr 60 mg PO DAILY Check with primary doctor 05/14/22 [History Last Taken 05/13/22 21:30] albuterol sulfate 1.25 mg/3 mL solution for nebulization 1.25 mg (3 mL) inhalation 4X/DAY Wheezing #360 mL 03/20/23 [Rx Last Taken Unknown] budesonide-formoterol HFA 160 mcg-4.5 mcg/actuation aerosol inhaler (Symbicort) 2 inh inhalation BID breathing #3 ea 05/01/23 [Rx Last Taken Unknown] aspirin 81 mg tablet,delayed release (Adult Low Dose Aspirin) 81 mg PO DAILY 05/17/23 [History Last Taken Unknown] carvedilol 12.5 mg tablet 12.5 mg PO BID #180 tabs 05/17/23 [Rx Last Taken Unknown] guaifenesin 1,200 mg tablet, extended release 12 hr 1,200 mg PO Q12H PRN 05/17/23 [History Last Taken Unknown] doxycycline monohydrate 100 mg capsule 100 mg PO BID #14 CAPSULES 05/20/23 [Rx Last Taken Unknown] prednisone 20 mg tablet 60 mg (3 x 20 mg) PO DAILY #15 TABLETS 05/20/23 [Rx Last Taken Unknown] Allergy/AdvReac Type Severity Reaction Status Date / Time Penicillins Allergy Hives Verified 05/22/23 13:16 adhesive tape AdvReac Other Verified 05/22/23 13:16 Family History Mother Heart disease Surgical History H/O four vessel coronary artery bypass graft (~04/16/13) Hx of colonoscopy Hx of esophagogastroduodenoscopy Social History household members: family Smoking Status: Former smoker quit date: 03/05/10 alcohol intake: current alcohol intake frequency: other substance use type: does not use ROS ROS ED Review of Systems ROS Unobtainable: due to mental condition EXAM Physical Exam Narrative Exam Narrative: Patient resting with eyes closed. Will open to eyes with voice command and palpation to her shoulder, but will fall asleep again easily. Const Vital Signs: 05/22/23 13:13 05/22/23 13:16 05/22/23 14:11 Temperature 98.4 F 98.4 F Temperature Source Temporal Temporal Pulse Rate 80 80 Respiratory Rate 25 H 25 H Respiratory Effort Normal Non-Labored Respiratory Depth Normal Respiratory Pattern Normal Blood Pressure 154/87 H 154/87 H Blood Pressure Mean 109 109 Pulse Ox 100 100 Oxygen Delivery Method Nasal Cannula Nasal Cannula Nasal Cannula Oxygen Flow Rate (L/min) 3 3 3 05/22/23 14:40 05/22/23 13:45 05/22/23 14:00 Temperature Temperature Source Pulse Rate 82 80 80 Respiratory Rate 22 H 17 15 Respiratory Effort Respiratory Depth Respiratory Pattern Tachypnea Blood Pressure 159/63 H 144/63 H Blood Pressure Mean 91 88 Pulse Ox 97 97 Oxygen Delivery Method Oxygen Flow Rate (L/min) 05/22/23 15:00 Temperature Temperature Source Pulse Rate 88 Respiratory Rate 16 Respiratory Effort Respiratory Depth Respiratory Pattern Blood Pressure 165/69 H Blood Pressure Mean 98 Pulse Ox 96 Oxygen Delivery Method Oxygen Flow Rate (L/min) Positive well nourished and well developed General Appearance ED: well developed HEENT Reports moist mucous membranes Eyes EOMs intact bilaterally Chest Wall inspection of chest normal and palpation of chest normal Resp Resp Narrative: Prolonged expiratory phase with tight wheezes. Cardio regular rate and regular rhythm GI non-tender Palpation: soft Extremity Extremity Narrative: Old appearing ecchymosis noted to her upper extremities. Neuro Neuro Narrative: Patient opens eyes to voice and touch. History provided by family at bedside. MDM MDM MDM Narrative Medical decision making narrative: Patient placed on career advisor. IV line initiated. EKG obtained to evaluate for cardiac arrhythmia/ischemia. Chest x-ray obtained to evaluate for acute lung pathology, cardiac size, or mediastinal abnormality. Labwork obtained to evaluate for leukocytosis, anemia, and electrolyte derangement. Given her history with similar symptoms and anemia I will go ahead and order a type and screen. Aerosols ordered. History & Record Review Discussion w/independent historian: Patient Additional record(s) reviewed:: Prior ED visit and Prior labs Lab Data Attestation: I reviewed the patient's lab results. Labs: Laboratory Results - last 24 hr 05/22/23 14:25 WBC 13.6 H RBC 3.06 L Hgb 8.6 L Hct 28.5 L MCV 93.1 MCH 28.1 MCHC 30.2 L RDW Std Deviation 64.8 H RDW Coeff of Becca 18.9 H Plt Count 253 MPV 10.3 Immature Gran % (Auto) 0.800 Neut % (Auto) 94.5 H Lymph % (Auto) 3.2 L [place] % (Auto) 1.0 Eos % (Auto) 0.1 Baso % (Auto) 0.4 Absolute Neuts (auto) 12.8 H Absolute Lymphs (auto) 0.44 L Nucleated RBC % 0 PT 14.6 INR 1.1 APTT 38.9 H Sodium 139 Potassium 5.1 Chloride 100 Carbon Dioxide 30.0 Anion Gap 9 BUN 43 H Creatinine 5.06 H Estim Creat Clear Calc 8.94 Est GFR (MDRD) Af Amer 11 L Est GFR (MDRD) Non-Af 9 L BUN/Creatinine Ratio 8.5 L Glucose 178 H Calcium 7.7 L Total Bilirubin 0.40 Direct Bilirubin 0.14 AST 21 ALT 13 Alkaline Phosphatase 143 H Ammonia 16.0 Total Protein 7.4 Albumin 3.7 Globulin 3.7 Radiography Chest X-Ray - ED: 1 View, Read by ED Physician and Chronic Changes Diagnostic Testing: Clinical Impression(s) from Imaging Studies Chest X-Ray 05/22/23 14:55 IMPRESSION: 1. No significant change. 2. No new infiltrate is seen. Electronically Signed: Christiano Leal MD at 15:09 EDT , EKG Initial EKG: Attestation: I personally reviewed and interpreted this EKG as follows: Interpretation: Sinus Rhythm (Sinus at 80 with no acute ischemia. Significant artifact noted in lead V1. No significant changes when compared to prior study from 05/20/2023.) Treatment and Re-Evaluation :: Patient was given aerosol treatments here. EKG is sinus rhythm at 80 bpm. Some nonspecific changes noted unchanged when compared to prior. CBC reveals a white count of 13.6 with 94% neutrophils. This may be elevated because she has been on steroids now for the last 3 days. Hemoglobin is 8.6 which is slightly improved when compared to her prior visit. Coags unremarkable. Chemistry studies significant for a BUN of 43 and a creatinine of 5.06. Glucose is 178. LFTs are unremarkable. Ammonia is normal at 16. Portable chest x-ray per my interpretation reveals chronic changes with no obvious infiltrate. Radiology interpretation reviewed and agrees. Test results discussed with family at bedside. Given that she typically access way with anemia but her hemoglobin is actually improved, I will also obtain an ABG to ensure she is not retaining CO2. I will speak with hospitalist regarding admission. Discharge Plan Triage Chief Complaint: Shortness of Breath ED Provider: Hina Warren Dx/Rx/DC Orders Clinical Impression: Altered mental status, COPD exacerbation Prescriptions: No Action albuterol sulfate [ProAir HFA] 90 mcg/actuation HFA aerosol inhaler 2 puff inhalation Q6H PRN (Reason: sob) ropinirole 0.5 mg tablet 0.5 mg PO QHS Patient Comments: TAKE 1 TABLET BY MOUTH ONCE DAILY guaifenesin 1,200 mg tablet extended release 12hr 1,200 mg PO Q12H PRN aspirin [Adult Low Dose Aspirin] 81 mg tablet,delayed release (DR/EC) 81 mg PO DAILY amitriptyline 100 MG tablet 100 mg PO QHS Patient Comments: MENTAL HEALTH atorvastatin 80 MG tablet 80 mg PO DAILY Patient Comments: amlodipine 10 MG tablet 10 mg PO DAILY omeprazole 40 MG capsule,delayed release(DR/EC) 40 mg PO DAILY Hold Instructions: Resume on 05/08/21. doxazosin 8 MG tablet 8 mg PO QHS hydralazine 100 mg tablet 100 mg PO TID nitroglycerin 0.4 MG tablet, sublingual 0.4 mg SL Q5M PRN (Reason: CHEST PAIN) bumetanide 2 MG tablet 2 mg PO DAILY acetaminophen [Acetaminophen Extra Strength] 500 mg Tablet 1,000 mg PO DAILY PRN (Reason: Pain) sevelamer carbonate 800 mg tablet 800 mg PO TIDCM ascorbic acid (vitamin C) 500 MG tablet 500 mg PO DAILY isosorbide mononitrate 60 mg tablet extended release 24 hr 60 mg PO DAILY prednisone 20 mg tablet 60 mg PO DAILY Qty: 15 0RF doxycycline monohydrate 100 mg capsule 100 mg PO BID Qty: 14 0RF albuterol sulfate 1.25 mg/3 mL solution for nebulization 1.25 mg INHALATION 4X/DAY Qty: 360 6RF budesonide-formoterol [Symbicort] 160-4.5 mcg/actuation HFA aerosol inhaler 2 inh INHALATION BID Qty: 3 3RF Rx Instructions: administer with spacer, rinse mouth after each use carvedilol 12.5 mg tablet 12.5 mg PO BID Qty: 180 3RF Rx Instructions: must administer with a meal/food Primary Care Provider: Levi Laird Referrals: Levi Laird MD [Primary Care Provider] - Disposition Disposition: [facility]
[2023-05-22] MEDS: Ipratropium/Albuterol Sulfate 3 ML AMPUL.NEB INHALATION ×2 (14:33→18:50)
[2023-05-22] MEDS: Albuterol 2.5 MG/3 ML VIAL.NEB. INHALATION ×2 (14:35)
[2023-05-22 14:41] LABS: Absolute Lymphocyte Count 0.44 X10^3/uL (0.83-4.51); Absolute Neutrophil Count 12.8 X10^3/uL (2.0-7.7); Basophil# 0.05 X10^3/uL; Basophil% 0.4 % (0-1); Eosinophil# 0.02 X10^3/uL; Eosinophils% 0.1 % (0-5); Hematocrit 28.5 % (37-47); Hemoglobin 8.6 g/dL (12.0-15.0); Lymphocyte # 0.44 X10^3/ul (0.83-4.51); Lymphocyte % 3.2 % (19-41); Mean Corp Hgb Conc 30.2 g/dL (32-36); Mean Corpuscular Hgb 28.1 pg (27.0-32.0); Mean Corpuscular Volume 93.1 fL (81-99); Mean Platelet Vol. 10.3 fl (6.2-12.0); Monocyte# 0.14 X10^3/uL; NRBC Flagged by Analyzer 0 % (0-5); Neutrophil # 12.81 X10^3/uL (2.7-7.7); Neutrophil % 94.5 % (47-70); POSITIVE DIFFERENTIAL YES; Platelet Count 253 K/mm3 (150-450); RBC Distribution Width CV 18.9 % (11.6-14.6); RBC Distribution Width SD 64.8 fl (35.1-43.9); Red Blood Count 3.06 M/mm3 (4.2-5.4); White Blood Count 13.6 K/mm3 (4.4-11.0)
[2023-05-22 14:48] LABS: International Normalized Ratio 1.1; Prothrombin Time (Protime)PT. 14.6 SECONDS (11.7-14.9)
[2023-05-22 14:49] LABS: Partial Thromboplast Time 38.9 Seconds (24.1-36.2)
--- NOTE | 2023-05-22 14:55 | RAD_ITS ---
INDICATION: sob EXAMINATION/TECHNIQUE: X-RAY - XR Chest 1 View COMPARISON: Prior study dated: 05/20/2023 FINDINGS: LINES/DEVICES: Right-sided permacath in stable position. LUNGS: Hypoventilatory changes in the right lower lung. No evidence of pleural effusions. MEDIASTINUM AND CARDIOVASCULAR STRUCTURES: Stable cardiomediastinal silhouette. Status post CABG. BONES AND SOFT TISSUES: Unremarkable. RAD/Chest 1 View (Portable) IMPRESSION: 1. No significant change. 2. No new infiltrate is seen. Electronically Signed: Christiano Leal MD at 15:09 EDT ,
[2023-05-22 15:02] LABS: AST(SGOT) 21 U/L (15-37); Alanine Aminotransfer ALT/SGPT 13 U/L (13-56); Albumin, Serum 3.7 g/dL (3.2-5.0); Alkaline Phosphatase 143 U/L (45-117); Anion Gap 9 (5-15); BUN 43 mg/dL (7-18); BUN/Creat Ratio 8.5 RATIO (10-20); Bilirubin, Direct 0.14 mg/dL (0.00-0.30); Calcium,Total 7.7 mg/dL (8.5-10.1); Chloride 100 mmol/L (98-107); Creatinine, Serum 5.06 mg/dL (0.55-1.02); EST Glomerular Filtration Rate 9 mL/min (>60); Est Glom Filt Rate - Afr Amer 11 mL/min (>60); Estimated Creatinine Clearance 8.94 ml/min; Globulin 3.7 g/dL (2.2-4.2); Glucose 178 mg/dL (74-106); Potassium 5.1 mmol/L (3.5-5.1); Protein, Total 7.4 g/dL (6.4-8.2); Sodium Level 139 mmol/L (136-145)
[2023-05-22 15:36] LABS: Allen Test Positive; Base Excess 5 mmol/L (-2 to +2); Bicarbonate 30.3 mmol/L (22-26); Blood Gas Specimen Type ART; Mode Not entered; O2 Delivery Device Cannula; PO2 68 mmHG (75-100); SITE L Radial; SO2 93 % (95-99); Total Carbon Dioxide 32 mmol/L; pCO2 50.4 mmHg (35-45); pH 7.39 (7.35-7.45)
--- NOTE | 2023-05-22 15:37 | PCM.HP.STD ---
HPI - General General Date of Admission: 05/22/23 Date of Service: 05/22/23 Chief Complaint: Altered mental status, worsening shortness of breath HPI Narrative JULISSA VEGA, is a 77 F who presented to [facility] ED on 05/22/2023 with altered mental status and worsening shortness of breath. Patient seen at bedside in the ED, son present. Patient was laying back in bed and had her eyes closed when I entered the room. Initially had a short conversation with her son and she kept her eyes closed for the entirety of that discussion. However when I initiated conversation with her, she opened her eyes appropriately and actually was answering all my questions appropriately. She knew that she was at [facility], that it was May 2023 and that the current president was Jean and previous president was Alma Rosa. She reported feeling more fatigued than normal, and also mildly confused. However, she did remember coming to the ED with her son earlier today. She reported mild shortness of breath at rest, similar to previous days as noted below. She otherwise denied any chest pain, abdominal pain or discomfort. Denied any fevers or chills. No other acute concerns at this time. Patient has an extensive past medical history including ESRD on HD, chronic anemia with baseline hemoglobin around 8, COPD on home 3 L nasal cannula, pulmonary hypertension, ELAINE with nonadherence to home CPAP and previous episodes of altered mental status similar to the current episode. Son states that on several previous episodes she was found to have worsening anemia, and her mental status improved significantly after blood transfusion. He notes that the patient lives with him. She receives hemodialysis Sunday and her last session was on the day prior to admission. Had no issues with this HD session. Patient notably was seen in the ED on 05/19 for worsening shortness of breath. She stated at that time that she noticed change in her breathing a few days prior to that along with cough, nasal congestion and some wheezing. She was started on steroids and p.o. doxycycline for concern for COPD exacerbation and discharged from the ED. She states today that her breathing feels similar today to a few days ago. However she denies any cough or congestion today. She follows with both cardiology and pulmonology in the office. She saw Dr. Quinones with cardiology on 05/16, who noted that her shortness of breath with exertion had worsened slightly. He recommended that she have both a Lexiscan stress test and repeat echocardiogram done. He also noted a carotid bruit on exam and recommended that she have a carotid ultrasound she has not had these tests done yet. She last saw Dr. Ferreira with pulmonology in the office in mid April. He noted that she appeared stable at that time from a respiratory standpoint. Noted that she had been reporting a chronic cough with some sputum production and he suspected mucous plugging so he started her on scheduled guaifenesin as well as pulmonary toilet at home. [facility] Medical History (Updated 05/22/23 @ 15:[address] Hina Warren MD) (HFpEF) heart failure with preserved ejection fraction Abdominal pain Accidental fall Acute and chronic respiratory failure with hypoxia Acute bronchospasm Acute on chronic blood loss anemia Acute on chronic respiratory failure with hypoxia Acute renal failure superimposed on stage 3 chronic kidney disease Acute upper gastrointestinal bleeding Anemia Anxiety Arthritis Atherosclerotic heart disease of [place] coronary artery without angina pectoris CAD (coronary artery disease) Chronic diastolic heart failure Chronic hyponatremia Chronic respiratory failure with hypoxia CKD (chronic kidney disease), stage III Congestive heart failure COPD (chronic obstructive pulmonary disease) Cough Diabetes mellitus type 2 in obese Dyslipidemia Easy bruising End-stage renal disease on hemodialysis Essential hypertension Gastritis Generalized weakness GI bleed GI bleed History of blood transfusion History of renal dialysis Hypoxia Iron deficiency anemia Leg cramps Leukocytosis Morbid obesity with BMI of 40.0-44.9, adult Non-rheumatic mitral regurgitation Non-rheumatic tricuspid valve insufficiency On home oxygen therapy ELAINE (obstructive sleep apnea) Pleural effusion Pneumonia Pulmonary hypertension Restless leg syndrome Restless legs Rib contusion Secondary pulmonary hypertension Shortness of breath on exertion Smoking greater than 40 pack years Toe fracture, left Toxic metabolic encephalopathy Valvular heart disease Wears dentures Wears glasses Home Medications amitriptyline 100 mg tablet 100 mg PO QHS mental health 04/09/13 [History Last Taken 05/13/22 21:00] atorvastatin 80 mg tablet 80 mg PO DAILY CHOLESTEROL 10/25/17 [History Last Taken 05/13/22 21:30] amlodipine 10 mg tablet 10 mg PO DAILY BP 06/01/18 [History Last Taken 05/14/22 08:30] doxazosin 8 mg tablet 8 mg PO QHS blood pressure 08/20/18 [History Last Taken 05/13/22 21:30] omeprazole 40 mg capsule,delayed release 40 mg PO DAILY gerd 08/20/18 [History Last Taken 05/13/22 21:30] hydralazine 100 mg tablet 100 mg PO TID diuretic 01/01/19 [History Last Taken 05/14/22 14:00] bumetanide 2 mg tablet 2 mg PO DAILY diuretic 03/14/19 [History Last Taken 05/14/22 08:30] nitroglycerin 0.4 mg sublingual tablet 0.4 mg sublingual Q5M PRN CHEST PAIN 03/14/19 [History Last Taken Unknown] albuterol sulfate 90 mcg/actuation aerosol inhaler (ProAir HFA) 2 puff inhalation Q6H PRN sob 09/30/20 [History Last Taken 05/13/22 08:30] ropinirole 0.5 mg tablet 1.5 mg PO .COMPLEX Check with primary doctor 07/07/21 [History Last Taken 05/13/22 21:30] acetaminophen 500 mg tablet (Acetaminophen Extra Strength) 1,000 mg PO DAILY PRN Pain 05/04/22 [History Last Taken 05/14/22 14:00] ascorbic acid (vitamin C) 500 mg tablet 500 mg PO DAILY SUPPLEMENT 05/04/22 [History Last Taken 05/14/22 08:30] sevelamer carbonate 800 mg tablet 800 mg PO TIDCM PHOSPHATE 05/04/22 [History Last Taken 05/14/22 14:00] isosorbide mononitrate 60 mg tablet,extended release 24 hr 60 mg PO DAILY Check with primary doctor 05/14/22 [History Last Taken 05/13/22 21:30] albuterol sulfate 1.25 mg/3 mL solution for nebulization 1.25 mg (3 mL) inhalation 4X/DAY Wheezing #360 mL 03/20/23 [Rx Last Taken Unknown] budesonide-formoterol HFA 160 mcg-4.5 mcg/actuation aerosol inhaler (Symbicort) 2 inh inhalation BID breathing #3 ea 05/01/23 [Rx Last Taken Unknown] aspirin 81 mg tablet,delayed release (Adult Low Dose Aspirin) 81 mg PO DAILY heart health 05/17/23 [History Last Taken Unknown] carvedilol 12.5 mg tablet 12.5 mg PO BID bp #180 tabs 05/17/23 [Rx Last Taken Unknown] guaifenesin 1,200 mg tablet, extended release 12 hr 1,200 mg PO Q12H PRN congestion 05/17/23 [History Last Taken Unknown] doxycycline monohydrate 100 mg capsule 100 mg PO BID infection #14 CAPSULES 05/20/23 [Rx Last Taken Unknown] prednisone 20 mg tablet 60 mg (3 x 20 mg) PO DAILY copd exac #15 TABLETS 05/20/23 [Rx Last Taken Unknown] Allergy/AdvReac Type Severity Reaction Status Date / Time Penicillins Allergy Hives Verified 05/22/23 13:16 adhesive tape AdvReac Other Verified 05/22/23 13:16 Family History Mother Heart disease Surgical History H/O four vessel coronary artery bypass graft (~04/16/13) Hx of colonoscopy Hx of esophagogastroduodenoscopy Social History household members: family Smoking Status: Former smoker quit date: 03/05/10 alcohol intake: current alcohol intake frequency: other substance use type: does not use ROS Constitutional Constitutional: Reports fatigue; Denies chills, fever(s) or weakness Eyes Eyes: Denies change in vision ENT HEENT: Denies nasal congestion or nasal discharge Cardiovascular Cardiovascular: Reports dyspnea on exertion; Denies chest pain, lightheadedness, palpitations or syncope Respiratory/Chest Respiratory/Chest: Reports shortness of breath at rest; Denies cough or wheezing Gastrointestinal Gastrointestinal: Denies abdominal pain, constipation, diarrhea, nausea or vomiting Genitourinary Genitourinary: Denies dysuria Musculoskeletal Musculoskeletal: Denies arthralgias, back pain or myalgias Neurologic Neurologic: Denies dizziness, focal weakness, headache(s), numbness or paresthesias Vital Signs Vital Signs Vital Signs: 05/22/23 13:13 05/22/23 13:16 05/22/23 14:11 Temperature 98.4 F 98.4 F Temperature Source Temporal Temporal Pulse Rate 80 80 Respiratory Rate 25 H 25 H Respiratory Effort Normal Non-Labored Respiratory Depth Normal Respiratory Pattern Normal Blood Pressure 154/87 H 154/87 H Blood Pressure Mean 109 109 Pulse Ox 100 100 Oxygen Delivery Method Nasal Cannula Nasal Cannula Nasal Cannula Oxygen Flow Rate (L/min) 3 3 3 05/22/23 14:40 05/22/23 13:45 05/22/23 14:00 Temperature Temperature Source Pulse Rate 82 80 80 Respiratory Rate 22 H 17 15 Respiratory Effort Respiratory Depth Respiratory Pattern Tachypnea Blood Pressure 159/63 H 144/63 H Blood Pressure Mean 91 88 Pulse Ox 97 97 Oxygen Delivery Method Oxygen Flow Rate (L/min) 05/22/23 15:00 Temperature Temperature Source Pulse Rate 88 Respiratory Rate 16 Respiratory Effort Respiratory Depth Respiratory Pattern Blood Pressure 165/69 H Blood Pressure Mean 98 Pulse Ox 96 Oxygen Delivery Method Oxygen Flow Rate (L/min) Weight Weight: 77.9 kg Body Mass Index (BMI) 32.4 Physical Exam Const alert, oriented x3 and no apparent distress Constitutional Narrative: Elderly female, chronically ill-appearing, moderately fatigued appearing, otherwise sitting up fairly comfortably in bed, answering questions appropriately, in no acute distress. General Appearance: cooperative and comfortable HEENT normocephalic, head/scalp atraumatic, hearing grossly normal bilaterally and nasal mucous membranes and turbinates normal Eyes PERRL, EOMs intact bilaterally and conjunctivae normal Neck full ROM Chest inspection of chest normal Resp Resp Narrative: Breathing comfortably on 3 L nasal cannula with good oxygen saturations. Fairly good air movement bilaterally, no wheezing noted. Cardio regular rate, regular rhythm, no murmurs and peripheral pulses 2+ throughout GI normal to inspection, nondistended, normoactive bowel sounds, soft to palpation, non-tender and non-distended Back/Spine normal ROM Extremity normal to inspection, full ROM and no pedal edema Skin no rashes or lesions noted Neuro oriented x3, moves all extremities and no focal motor deficits Coordination / Balance: roiwfy-hy-rcct test normal Speech: speech normal Results Lab / Micro Data 05/22/23 14:25 05/22/23 14:25 Labs: Laboratory Results - last 24 hr 05/22/23 14:25: WBC 13.6 H, RBC 3.06 L, Hgb 8.6 L, Hct 28.5 L, MCV 93.1, MCH 28.1, MCHC 30.2 L, RDW Std Deviation 64.8 H, RDW Coeff of Becca 18.9 H, Plt Count 253, MPV 10.3, Immature Gran % (Auto) 0.800, Neut % (Auto) 94.5 H, Lymph % (Auto) 3.2 L, [place] % (Auto) 1.0, Eos % (Auto) 0.1, Baso % (Auto) 0.4, Absolute Neuts (auto) 12.8 H, Absolute Lymphs (auto) 0.44 L, Nucleated RBC % 0, PT 14.6, INR 1.1, APTT 38.9 H, Sodium 139, Potassium 5.1, Chloride 100, Carbon Dioxide 30.0, Anion Gap 9, BUN 43 H, Creatinine 5.06 H, Estim Creat Clear Calc 8.94, Est GFR (MDRD) Af Amer 11 L, Est GFR (MDRD) Non-Af 9 L, BUN/Creatinine Ratio 8.5 L, Glucose 178 H, Calcium 7.7 L, Total Bilirubin 0.40, Direct Bilirubin 0.14, AST 21, ALT 13, Alkaline Phosphatase 143 H, Ammonia 16.0, Total Protein 7.4, Albumin 3.7, Globulin 3.7 ABG Data ABG results: ABG 05/22/23 15:32 Specimen Type ART Sample Site L Radial pH 7.39 Bicarbonate Actual 30.3 H Total CO2 32 Base Excess 5 H O2 Saturation 93 L O2 % 3.0 ABG pCO2 50.4 H ABG pO2 68 L Abram Test Positive O2 Delivery Device Cannula Vent Mode Not entered Imaging Radiology Impression Chest X-Ray 05/22/23 14:55 IMPRESSION: 1. No significant change. 2. No new infiltrate is seen. Electronically Signed: Christiano Leal MD at 15:09 EDT , Assessment & Plan Assessment/Plan (1) Altered mental status: (2) COPD exacerbation: (3) Dyspnea on exertion: PLAN: Plan Patient is a 77-year-old female who presented [facility] ED on 05/22/2023 with altered mental status and worsening shortness of breath. 1. Altered mental status, improving ? Unclear etiology. Previously reported that she has mental status changes with worsening anemia but hemoglobin was slightly improved from hemoglobin in ED on 05/19. ABG showed mild hypercapnia with pCO2 of 50, otherwise normal pH and normal oxygenation. CT head without contrast showed no acute disease. BUN 43, near baseline. Ammonia level 16. No other significant lab abnormalities. ? Moderately fatigued on my exam in the ED but was alert and oriented x 3 and answering all questions appropriately. ? Continue to monitor closely. Will hold on any further workup with labs and imaging given findings as above are largely negative and she is showing improvement. 2. Reported worsening shortness of breath, history of COPD with chronic respiratory failure on home 3 L and recently diagnosed mild COPD exacerbation ? Recent ED visit on 05/19 with reported worsening shortness of breath with mild cough and congestion. Chest x-ray on 05/19 was nonacute. Discharged on steroids and doxycycline for presumed COPD exacerbation. ? Chest x-ray on 05/21 again nonacute. Satting well and breathing comfortably on home 3 L nasal cannula. Fairly good air movement and no significant wheezing noted on exam. ? Notably follows with pulmonology in the office, last office visit in mid April, only changes made at that time were scheduling guaifenesin and using pulmonary toilet more frequently. ? Okay to continue p.o. steroids and doxycycline to complete 5-day course total. Further workup per outpatient cardiology recommendations as noted below. 3. History of CAD s/p CABG, history of diastolic heart failure with pulmonary hypertension, history of hypertension ? Follows with outpatient cardiology, last office visit with Dr. Quinones on 05/16. She reported mild worsening dyspnea on exertion at that time and plan was to get a Lexiscan stress test and repeat echocardiogram. These tests have not been completed yet. Will order stress test and echocardiogram now. Okay to continue home Coreg, Bumex, amlodipine, doxazosin, hydralazine and isosorbide mononitrate. 4. Mild leukocytosis ? WBC count 13 on admit, neutrophil predominant. Suspect secondary to recent steroids. Follow-up a.m. CBC. 5. Chronic anemia ? Hemoglobin 8.6 on admit, baseline hemoglobin 8-9. Stable at baseline. 6. ESRD on HD ? On Sunday schedule. Last HD session was on Saturday 05/20, patient and son reported no issues with this session. Nephrology consulted. 7. Reported carotid bruit ? Noted on physical exam at cardiology visit on 05/16. Carotid ultrasound was ordered but had not been completed yet. Will order carotid ultrasound now. 8. ELAINE ? Per history. Nonadherent to home CPAP due to intolerance. Okay to continue nasal cannula at night. DVT prophylaxis: SCDs CODE STATUS: DNR CCA, DNI Expected disposition: TBD Total clinical time spent by myself addressing the patient's medical issues, reviewing all the data, and collaborating with patient's care team: 75 minutes. Charges/Coding Visit Charges Inpatient E&M: 40754 Init Hosp L3
--- NOTE | 2023-05-22 15:42 | CT_ITS ---
STUDY: CT BRAIN WITHOUT CONTRAST REASON FOR EXAM: Female, 77 years old. altered mental status RADIATION DOSAGE (If Supplied By Facility): CTDIvol = ( 44.99 ) mGy, DLP = ( 745.49 ) mGycm TECHNIQUE: Transaxial CT imaging of the brain was performed without administration of intravenous contrast material. Individualized dose optimization techniques were used for this CT. COMPARISON: CT brain October 25, 2017 FINDINGS: Normal soft tissue structures. Normal calvarium. Bilateral lens implants. Intracranial atherosclerosis. There is mild cerebral atrophy with widening of the extra-axial spaces and ventricular dilatation. Normal white matter tracts of the cerebral hemispheres. Normal basal ganglia and thalami. Normal brainstem. Normal cerebellum. There is no intracranial hemorrhage. There are no findings of an acute ischemic infarction. Normal visualized paranasal sinuses. CT/Brain/Head without Contrast IMPRESSION: No acute disease Electronically Signed: Edy Meza MD at 16:19 EDT ,
--- NOTE | 2023-05-22 16:06 | NURSING ---
PCU SHIMA COPD EXAC, ALTERED MENTAL STATUS
--- NOTE | 2023-05-22 17:24 | ECHOD_ITS ---
Reason For Study: CORONARY ARTERY DISEASE Procedure This was a 2D Doppler, Color Flow transthoracic echocardiogram. Patient was scanned in sitting position during reflux assessment. Exam performed in department. Left Ventricle Normal LV size. Mild concentric left ventricular hypertrophy. Left ventricular systolic function is normal. The estimated ejection fraction is 60 %. Stage 2 diastolic dysfunction. No regional wall motion abnormalities noted. Right Ventricle Normal RV size. Normal systolic function. Mitral Valve Bileaflet diffuse mitral valve thickening. There is mild to moderate mitral annular calcification. Moderate (2+) eccentric mitral valve insufficiency. Tricuspid Valve Normal tricuspid valve. Mild to moderate (1-2+) tricuspid valve insufficiency. Pulmonary artery systolic pressure is 55 mmHg. Moderate pulmonary hypertension. Aortic Valve Trisinus/trileaflet aortic valve. Mild focal aortic valve calcification. Peak aortic valve gradient 32 mmHg. Mean aortic valve gradient 16 mmHg. Mild aortic stenosis. Pulmonic Valve Normal pulmonic valve. Great Vessels Normal aortic root. The pulmonary artery is normal size. Inferior vena cava collapse with respiration. Pericardium/Pleural No pericardial effusion. MMode/2D Measurements & Calculations LVIDd: 5.5 cm IVSd: 1.3 cm LVOT diam: 2.0 cm LVIDs: 3.5 cm LVPWd: 1.2 cm LVOT area: 3.3 cm2 RVDd: 4.2 cm FS: 36.1 % Ao root diam: 3.1 cm LAV(MOD-bp): 76.7 ml LVAd ap4: 30.7 cm2 LAV(MOD-bp) Indexed: 43.4 ml/m2 LVLd ap4: 8.8 cm LAV(MOD-sp2): 85.8 ml EDV(MOD-sp4): 90.7 ml LAV(MOD-sp4): 65.7 ml EDV(sp4-el): 91.5 ml LVAs ap4: 18.9 cm2 LVLs ap4: 7.7 cm ESV(MOD-sp4): 41.3 ml ESV(sp4-el): 39.6 ml EF(MOD-sp4): 54.4 % EF(sp4-el): 56.7 % SV(MOD-sp4): 49.4 ml SV(MOD-sp2): 62.2 ml LVAd ap2: 36.9 cm2 LVLd ap2: 9.6 cm EDV(MOD-sp2): 117.0 ml EDV(sp2-el): 120.1 ml LVAs ap2: 22.6 cm2 LVLs ap2: 8.4 cm ESV(MOD-sp2): 54.8 ml ESV(sp2-el): 51.6 ml EF(MOD-sp2): 53.1 % SV(sp4-el): 51.8 ml LA A4 area: 22.4 cm2 LA dimension(2D): 5.2 cm TAPSE: 1.1 cm RA A4 area: 18.6 cm2 Time Measurements MV dec time: 0.17 sec Doppler Measurements & Calculations MV E max enmanuel: 132.5 cm/sec Lat Peak E' Enmanuel: 10.6 cm/sec Med Peak E' Enmanuel: 9.2 cm/sec MV A max enmanuel: 105.3 cm/sec E/E' lat: 12.5 E/E' med: 14.5 MV E/A: 1.3 MV V2 max: 184.2 cm/sec MV dec slope: 800.7 cm/sec2 Ao V2 max: 283.4 cm/sec MV max P.6 mmHg Ao max P.2 mmHg MV V2 mean: 123.1 cm/sec Ao V2 mean: 187.9 cm/sec MV mean P.5 mmHg Ao mean P.4 mmHg MV V2 VTI: 40.8 cm Ao V2 VTI: 57.5 cm MVA(VTI): 1.9 cm2 AV (velocity ratio): 0.41 LIVE(I,D): 1.3 cm2 LIVE(V,D): 1.4 cm2 LV V1 max: 126.2 cm/sec SV(LVOT): 75.8 ml PA V2 max: 149.6 cm/sec LV V1 max P.4 mmHg PA max PG (full): 2.6 mmHg LV V1 mean P.8 mmHg LV V1 mean: 76.3 cm/sec LV V1 VTI: 23.3 cm TR max enmanuel: 295.4 cm/sec TR max P.9 mmHg RVSP(TR): 49.9 mmHg ECHO/Echo Complete Interpretation Summary Normal LV size. Left ventricular systolic function is normal. The estimated ejection fraction is 60 %. Stage 2 diastolic dysfunction. Mean aortic valve gradient 16 mmHg. Mild aortic stenosis. Moderate (2+) eccentric mitral valve insufficiency. Pulmonary artery systolic pressure is 55 mmHg. Moderate pulmonary hypertension. Ordering Physician: Saul Falk Performed By: Nayeli Brown RDCS
--- NOTE | 2023-05-22 17:24 | CDU_ITS ---
Reason For Study: Carotid bruit Rt. Velocities/BP Lt. Velocities/BP Prox CCA 56/11.6 cm/sec. Prox CCA 79/10.2 cm/sec. Mid CCA 60.7/12.6 cm/sec. Mid CCA 104.7/15.1 cm/sec. Dist CCA 73/12.6 cm/sec. Dist CCA 90/13.9 cm/sec. Prox ICA 279/78.5 cm/sec. Prox ICA 177/42.2 cm/sec. Mid ICA 134.6/46.8 cm/sec. Mid ICA 121.4/22.6 cm/sec. Dist ICA 90/27.9 cm/sec. Dist ICA 96.1/27.4 cm/sec. Rt. ICA/CCA = 4.60. Lt. ICA/CCA = 1.97. Prox ECA 246.6/4.2 cm/sec. Prox ECA 97.4/6 cm/sec. Rt. Vert. 95.5/22.5 cm/sec. Lt. Vert. 67.9/18.8 cm/sec. Right Extracranial There is heterogeneous, irregular atherosclerotic plaque noted in the right common carotid artery. There is heterogeneous, irregular atherosclerotic plaque noted in the right internal carotid artery. There is heterogeneous, irregular atherosclerotic plaque noted in the right external carotid artery. Antegrade flow is noted in the right vertebral artery. Left Extracranial There is heterogeneous, irregular atherosclerotic plaque noted in the left common carotid artery. There is heterogeneous, irregular atherosclerotic plaque noted in the left internal carotid artery. There is heterogeneous, irregular atherosclerotic plaque noted in the left external carotid artery. Antegrade flow is noted in the left vertebral artery. Procedure This is a Carotid Duplex examination using B-mode, color flow and specral Doppler. Carotid Duplex [id number]. Exam performed in department. 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 VL/Carotid Duplex Ultrasound Interpretation Summary Severe (>70%) stenosis right extracranial internal carotid. Moderate (50-69%) stenosis left extracranial internal carotid. Patent and antegrade vertebrals bilaterally. Ordering Physician: Saul Falk Referring Physician: Levi Laird Performed By: Mayra Clarke RVT
[2023-05-22] MEDS: SEVELAMER CARBONATE 800 MG TABLET PO (20:30)
[2023-05-22] MEDS: hydrALAZINE 50 MG Tablet 100 MG PO (20:54)
[2023-05-22] MEDS: Doxazosin 4 MG Tablet 8 MG PO (20:55)
[2023-05-22] MEDS: Carvedilol 12.5 MG Tablet PO (20:56)
[2023-05-22] MEDS: Doxycycline 100 MG CAPSULE PO (20:56)
[2023-05-22] MEDS: Amitriptyline 100 MG Tablet PO (20:56)
[2023-05-22] MEDS: guaiFENesin 1,200 MG Tablet 1200 MG PO (20:57)
[2023-05-22] MEDS: Pramipexole Di-HCl 0.25 MG Tablet PO (22:51)
[2023-05-23] VITALS (16 sets, daily range): BP systolic 140–206; BP diastolic 61–71; PULSE 78–91; RESP 16–22; TEMP 36.2–36.8; O2SAT 93–100; BMI 28.7
--- NOTE | 2023-05-23 05:08 | EKG12_ITS ---
Test Reason : AM EKG Blood Pressure : / mmHG Vent. Rate : 082 BPM Atrial Rate : 082 BPM P-R Int : 208 ms QRS Dur : 108 ms QT Int : 416 ms P-R-T Axes : 045 025 077 degrees QTc Int : 486 ms Normal sinus rhythm Possible Left atrial enlargement Borderline ECG When compared with ECG of 22-MAY-2023 14:32, MANUAL COMPARISON REQUIRED, DATA IS UNCONFIRMED Confirmed by Wilbur Cao ([id number]), purchase request editor DENVER KRAUSE ([id number]) on 05/24/2023 11:09:00 AM Referred By: SHIMA Confirmed By:Wilbur Cao
[2023-05-23] MEDS: hydrALAZINE 50 MG Tablet 100 MG PO ×3 (05:50→22:41)
[2023-05-23] MEDS: Aspirin E.C. 81 MG Tablet PO (05:50)
[2023-05-23] MEDS: Atorvastatin Calcium 80 MG Tablet PO (09:35)
[2023-05-23] MEDS: predniSONE 20 MG Tablet 40 MG PO (09:35)
[2023-05-23] MEDS: Doxycycline 100 MG CAPSULE PO ×2 (09:35→22:40)
[2023-05-23] MEDS: Pantoprazole Sodium 40 MG Tablet PO (09:35)
[2023-05-23] MEDS: Isosorbide Mononitrate 60 MG Tablet PO (09:35)
[2023-05-23] MEDS: SEVELAMER CARBONATE 800 MG TABLET PO ×2 (09:36→16:14)
[2023-05-23] MEDS: guaiFENesin 1,200 MG Tablet 1200 MG PO ×2 (09:36→22:40)
--- NOTE | 2023-05-23 10:06 | PCM.CONS.R ---
Assessment & Plan Assessment/Plan (1) End-stage renal disease on hemodialysis: (2) Altered mental status: (3) COPD (chronic obstructive pulmonary disease): QUALIFIERS: COPD type: unspecified COPD Qualified Code(s): J44.9 - Chronic obstructive pulmonary disease, unspecified (4) Anemia in chronic kidney disease: PLAN: Plan This is a 77-year-old female with past medical history significant for ESRD on hemodialysis Sunday in [place] via a tunneled hemodialysis catheter who presented to emergency room yesterday with complaints of shortness of breath and altered mental status changes. Patient was admitted for further evaluation and treatment. Workup is ongoing. Nephrology consulted as patient has history of ESRD, for dialysis management. Patient last dialyzed Sunday at her kidney center. Will plan for dialysis today over 3 hours, on 2K bath attempting fluid removal as patient/blood pressure tolerates. Patient has history of anemia of chronic disease and receives KALPANA and iron at kidney center. Will monitor hemoglobin trends. Workup in the emergency room included brain CT which did not show any acute process. Chest x-ray no pleural effusions, no new infiltrate seen. Blood pressure slightly elevated and may see improvement with ultrafiltration with dialysis. Further orders forthcoming as hospitalization evolves, thank you for allowing us to participate in the care of Ms. Vega. HPI Consult Data Date of Consult: 05/23/23 HPI Narrative HPI Narrative: JULISSA VEGA, is a 77 F with past medical history significant for COPD on home O2 at 3 L, pulmonary hypertension, ELAINE, ESRD on hemodialysis Sunday last dialyzed Sunday who presented to the emergency room yesterday with complaints of altered mental status changes and worsening shortness of breath. Patient was admitted for further evaluation and treatment. Nephrology consulted as patient has history of ESRD, for dialysis management. Patient is alert and oriented this morning. She denies any complaints. Per patient reports she last dialyzed on Sunday at her kidney center which is in [place]. Patient currently dialyzes through tunneled hemodialysis catheter. [facility] Medical History (Updated 05/23/23 @ 10:09 by TREVOR Paul) (HFpEF) heart failure with preserved ejection fraction Abdominal pain Accidental fall Acute and chronic respiratory failure with hypoxia Acute bronchospasm Acute on chronic blood loss anemia Acute on chronic respiratory failure with hypoxia Acute renal failure superimposed on stage 3 chronic kidney disease Acute upper gastrointestinal bleeding Anemia Anxiety Arthritis Atherosclerotic heart disease of [place] coronary artery without angina pectoris CAD (coronary artery disease) Chronic diastolic heart failure Chronic hyponatremia Chronic respiratory failure with hypoxia CKD (chronic kidney disease), stage III Congestive heart failure COPD (chronic obstructive pulmonary disease) Cough Diabetes mellitus type 2 in obese Dyslipidemia Easy bruising End-stage renal disease on hemodialysis Essential hypertension Gastritis Generalized weakness GI bleed GI bleed History of blood transfusion History of renal dialysis Hypoxia Iron deficiency anemia Leg cramps Leukocytosis Morbid obesity with BMI of 40.0-44.9, adult Non-rheumatic mitral regurgitation Non-rheumatic tricuspid valve insufficiency On home oxygen therapy ELAINE (obstructive sleep apnea) Pleural effusion Pneumonia Pulmonary hypertension Restless leg syndrome Restless legs Rib contusion Secondary pulmonary hypertension Shortness of breath on exertion Smoking greater than 40 pack years Toe fracture, left Toxic metabolic encephalopathy Valvular heart disease Wears dentures Wears glasses Home Medications amitriptyline 100 mg tablet 100 mg PO QHS mental health 04/09/13 [History Last Taken 05/13/22 21:00] atorvastatin 80 mg tablet 80 mg PO DAILY CHOLESTEROL 10/25/17 [History Last Taken 05/13/22 21:30] amlodipine 10 mg tablet 10 mg PO DAILY BP 06/01/18 [History Last Taken 05/14/22 08:30] doxazosin 8 mg tablet 8 mg PO QHS blood pressure 08/20/18 [History Last Taken 05/13/22 21:30] omeprazole 40 mg capsule,delayed release 40 mg PO DAILY gerd 08/20/18 [History Last Taken 05/13/22 21:30] hydralazine 100 mg tablet 100 mg PO TID diuretic 01/01/19 [History Last Taken 05/14/22 14:00] bumetanide 2 mg tablet 2 mg PO DAILY diuretic 03/14/19 [History Last Taken 05/14/22 08:30] nitroglycerin 0.4 mg sublingual tablet 0.4 mg sublingual Q5M PRN CHEST PAIN 03/14/19 [History Last Taken Unknown] albuterol sulfate 90 mcg/actuation aerosol inhaler (ProAir HFA) 2 puff inhalation Q6H PRN sob 09/30/20 [History Last Taken 05/13/22 08:30] ropinirole 0.5 mg tablet 1.5 mg PO .COMPLEX Check with primary doctor 07/07/21 [History Last Taken 05/13/22 21:30] acetaminophen 500 mg tablet (Acetaminophen Extra Strength) 1,000 mg PO DAILY PRN Pain 05/04/22 [History Last Taken 05/14/22 14:00] ascorbic acid (vitamin C) 500 mg tablet 500 mg PO DAILY SUPPLEMENT 05/04/22 [History Last Taken 05/14/22 08:30] sevelamer carbonate 800 mg tablet 800 mg PO TIDCM PHOSPHATE 05/04/22 [History Last Taken 05/14/22 14:00] isosorbide mononitrate 60 mg tablet,extended release 24 hr 60 mg PO DAILY Check with primary doctor 05/14/22 [History Last Taken 05/13/22 21:30] albuterol sulfate 1.25 mg/3 mL solution for nebulization 1.25 mg (3 mL) inhalation 4X/DAY Wheezing #360 mL 03/20/23 [Rx Last Taken Unknown] budesonide-formoterol HFA 160 mcg-4.5 mcg/actuation aerosol inhaler (Symbicort) 2 inh inhalation BID breathing #3 ea 05/01/23 [Rx Last Taken Unknown] aspirin 81 mg tablet,delayed release (Adult Low Dose Aspirin) 81 mg PO DAILY heart health 05/17/23 [History Last Taken Unknown] carvedilol 12.5 mg tablet 12.5 mg PO BID bp #180 tabs 05/17/23 [Rx Last Taken Unknown] guaifenesin 1,200 mg tablet, extended release 12 hr 1,200 mg PO Q12H PRN congestion 05/17/23 [History Last Taken Unknown] doxycycline monohydrate 100 mg capsule 100 mg PO BID infection #14 CAPSULES 05/20/23 [Rx Last Taken Unknown] prednisone 20 mg tablet 60 mg (3 x 20 mg) PO DAILY copd exac #15 TABLETS 05/20/23 [Rx Last Taken Unknown] Allergy/AdvReac Type Severity Reaction Status Date / Time Penicillins Allergy Hives Verified 05/22/23 13:16 adhesive tape AdvReac Other Verified 05/22/23 13:16 Family History Mother Heart disease Surgical History H/O four vessel coronary artery bypass graft (~04/16/13) Hx of colonoscopy Hx of esophagogastroduodenoscopy Social History household members: family Smoking Status: Former smoker quit date: 03/05/10 alcohol intake: current alcohol intake frequency: other substance use type: does not use ROS ROS Narrative As in HPI and past medical history Physical Exam Narrative Alert and orient x 3, no apparent distress S1, S2, RRR Lung sounds diminished, no rales or rhonchi Abdomen soft, nontender No edema Tunneled dialysis catheter dressing clean, dry and intact Lab / Micro Data 05/22/23 14:25 05/22/23 14:25 Labs: Laboratory Results - last 24 hr 05/22/23 14:00: Glycated Hemoglobin Cancelled 05/22/23 14:25: WBC 13.6 H, RBC 3.06 L, Hgb 8.6 L, Hct 28.5 L, MCV 93.1, MCH 28.1, MCHC 30.2 L, RDW Std Deviation 64.8 H, RDW Coeff of Becca 18.9 H, Plt Count 253, MPV 10.3, Immature Gran % (Auto) 0.800, Neut % (Auto) 94.5 H, Lymph % (Auto) 3.2 L, [place] % (Auto) 1.0, Eos % (Auto) 0.1, Baso % (Auto) 0.4, Absolute Neuts (auto) 12.8 H, Absolute Lymphs (auto) 0.44 L, Nucleated RBC % 0, PT 14.6, INR 1.1, APTT 38.9 H, Sodium 139, Potassium 5.1, Chloride 100, Carbon Dioxide 30.0, Anion Gap 9, BUN 43 H, Creatinine 5.06 H, Estim Creat Clear Calc 8.94, Est GFR (MDRD) Af Amer 11 L, Est GFR (MDRD) Non-Af 9 L, BUN/Creatinine Ratio 8.5 L, Glucose 178 H, Glycated Hemoglobin Cancelled, Hemoglobin A1c Cancelled, Calcium 7.7 L, Total Bilirubin 0.40, Direct Bilirubin 0.14, AST 21, ALT 13, Alkaline Phosphatase 143 H, Ammonia 16.0, Total Protein 7.4, Albumin 3.7, Globulin 3.7, Blood Type A NEGATIVE, Antibody Screen NEGATIVE ABG Data ABG results: ABG 05/22/23 15:32 Specimen Type ART Sample Site L Radial pH 7.39 Bicarbonate Actual 30.3 H Total CO2 32 Base Excess 5 H O2 Saturation 93 L O2 % 3.0 ABG pCO2 50.4 H ABG pO2 68 L Abram Test Positive O2 Delivery Device Cannula Vent Mode Not entered Imaging Radiology Impression Chest X-Ray 05/22/23 14:55 IMPRESSION: 1. No significant change. 2. No new infiltrate is seen. Electronically Signed: Christiano Leal MD at 15:09 EDT , Brain CT 05/22/23 15:42 IMPRESSION: No acute disease Electronically Signed: Edy Meza MD at 16:19 EDT ,
--- NOTE | 2023-05-23 12:12 | STRESSREP ---
Stress Test Report Pharmacologic myocardial perfusion stress test. 77-year-old lady with a history of shortness of breath Resting EKG demonstrates sinus rhythm with a rate of 84 bpm. Resting blood pressure is 154/68 mmHg. 0.4 mg of regadenoson was infused per usual protocol followed by rapid intravenous saline flush injection. Continuous EKG monitoring was performed. The maximum heart rate was 108 bpm which was 75% of max impacted heart rate the maximum workload was 1 metabolic equivalent. At rest there were no ST or T wave changes noted to suggest ischemia and at peak infusion nonspecific ST changes were noted which did not meet the criteria for ischemia. No clinical angina is noted. The final blood pressure was 142/58 mmHg. Myocardial perfusion protocol. 11.5 mCi of technetium 99m sestamibi was injected at rest. 0.4 mg of regadenoson was infused per usual protocol. At peak infusion 34.5 mCi of technetium 99m sestamibi was injected stress images were obtained stress and rest images were reconstructed and compared in the short axis vertical long and horizontal long axis. Gated images were also obtained. Perfusion SPECT analysis: Review of the stress images demonstrate normal uptake of tracer noted in all areas of the myocardium. The resting images similar demonstrated normal uptake of tracer noted in all areas of the myocardium. No areas of reversibility are noted to suggest ischemia and no previous infarct is noted. Gated SPECT analysis: The gated ejection fraction is 61%. Conclusion: Normal pharmacologic myocardial perfusion stress test. Preserved ejection fraction.
[2023-05-23] MEDS: 0.9% Normal Saline 1,000 ML IV.SOLN. 1000 ML OPERA.SITE (12:42)
[2023-05-23] MEDS: PureFlow B 2K Dialysis Soln 1 BAG 6 BAG PF (12:43)
--- NOTE | 2023-05-23 15:18 | CASEMGMT ---
RANDY MONTALVO Assessment Face to Face with patient for initial transition planning/care coordination assessment. RANDY MONTALVO introduced self and role at [facility], pt voices understanding. Pt is A&Ox4 and is resting comfortably in bed and is calm. Pt daughter (Adilene) at bedside. Care providers, pharmacy, and demographics verified. Admitting dx: AMS, Worsening SOB PCP: [facility] Specialists: TONI, cardio; Deedee, nephro; Jhon, pulm Preferred Pharmacy: [facility] Insurance: Luz [facility] Community Plan Prescription Benefit: Yes LNOK: Doris Robertson (Daughter), Adilene Morin (Daughter) Living Arrangements: Pt lives with her daughter Chitra in a single story home with a BM with HR and 4 steps to enter. ADLs/IADLs: Ind with ADLs. Daughter helps with IADLs. Pt states that her daughter helps her shower to keep her port for dialysis clean and dry. Transportation: Family (Daughters, ONUR) DME: Pt states that she wears 2L continuous through [facility]. Pt states that she used to wear a CPAP at night but does not anymore. Rich from [facility] states that the pt current order is 3L Continuous and 2L bleed thru PAP. Pt states that she has portable tanks and that she has one in the room. Pt has a concentrator and P Ox at home. Pt states that she has a cane and walker at home but does not use. BP Cuff. Walk in shower with GB and seat. HHC/SNF: HHC History x 5 years ago, pt could not recall the agency. Denies SNF history. HD: Pt is active with [facility] in [place] [facility] at 0620. Pt states that her family is able to transport her. Pt?s goal: Home Plan: Pt states that she wants to go homer tomorrow. Pt 6-Click is 14. PT was unable to see today d/t the pt starting dialysis. Pt refuses HHC or SNF at this time. Pt states that she feels safe DCing home with her family and wants to continue dialysis through [facility]. CM to follow for safe DC home. Follow for potential increased O2 needs. Jeff Robertson RN, CM
[2023-05-23] MEDS: Heparin 10,000 UNITS/10 ML Vial IV (15:29)
--- NOTE | 2023-05-23 15:57 | PN_ITS ---
Subjective Subjective Patient seen and examined prior to discharge. She says she felt much better. She had no active complaints. Blood pressure remained elevated. She denied any cough or chest pain, palpitations, dizziness, nausea vomiting or any other symptoms. Review of systems otherwise negative. She has remained hemodynamically stable otherwise. Objective Data Objective Data Vital Signs: Vital Signs Temp Pulse Resp BP Pulse Ox O2 Del Method O2 Flow Rate 98.0 F 86 20 H 177/66 H 99 Nasal Cannula 2 05/23/23 12:30 05/23/23 15:35 05/23/23 15:35 05/23/23 15:35 05/23/23 15:35 05/23/23 15:35 05/23/23 15:35 Oxygen Flow Rate (L/min) 2 Oxygen Delivery Method Nasal Cannula Weight: 167 lb 5.294 oz Body Mass Index (BMI) 28.7 Intake & Output: Intake and Output for Last 24 Hours 05/21/23 05/22/23 05/23/23 23:59 23:59 23:59 Intake Total 250 / 250 30 / 30 Output Total 1470 / 1470 Balance 250 / 250 -1440 / -1440 Lab / Micro Data 05/22/23 14:25 05/22/23 14:25 Labs: Laboratory Results - last 24 hr 05/22/23 14:00: Glycated Hemoglobin Cancelled 05/22/23 14:25: Glycated Hemoglobin Cancelled, Hemoglobin A1c Cancelled, Blood Type A NEGATIVE, Antibody Screen NEGATIVE Radiography Diagnostic Testing: Radiology Impression Brain CT 05/22/23 15:42 IMPRESSION: No acute disease Electronically Signed: Edy Meza MD at 16:19 EDT , Echocardiogram 05/22/23 17:24 Interpretation Summary Normal LV size. Left ventricular systolic function is normal. The estimated ejection fraction is 60 %. Stage 2 diastolic dysfunction. Mean aortic valve gradient 16 mmHg. Mild aortic stenosis. Moderate (2+) eccentric mitral valve insufficiency. Pulmonary artery systolic pressure is 55 mmHg. Moderate pulmonary hypertension. Ordering Physician: Saul Falk Performed By: Nayeli Brown, SKIP Physical Exam Const alert, oriented x3 and no apparent distress General Appearance: cooperative and well developed HEENT normocephalic, head/scalp atraumatic, moist oral mucous membranes and oropharynx normal Eyes PERRL and EOMs intact bilaterally Neck no lymphadenopathy and supple Lymph Lymphatic: no lymphadenopathy noted and no lymphedema noted Resp Resp Narrative: diminished breath sounds bibasally, no wheezes or crackles. on 2L of oxygen by nasal canula. Cardio regular rate, regular rhythm, S1 normal heart sound, S2 normal heart sound and no murmurs GI normal to inspection, nondistended, normoactive bowel sounds, soft to palpation, non-tender and non-distended Extremity normal capillary refill, no clubbing, cyanosis or edema and no calf tenderness General Extremity: no tenderness to palpation of joints or extremities Skin General Skin Exam: no breakdown Neuro CN's II-XII intact bilaterally, no focal motor deficits, no sensory deficits noted and deep tendon reflexes 2+ bilaterally Motor Exam: strength 5/5 throughout and general weakness Psych thought process normal and cooperative Appearance: appropriate Assessment & Plan Assessment/Plan (1) COPD exacerbation: (2) Altered mental status: (3) Asthma exacerbation in COPD: PLAN: Plan #Acute encephalopathy * Resolved. Her mentation is much better and she is alert and oriented x 3. * CT of the brain was negative for any acute intracranial pathology. * PT OT on board. Fall precautions. #Acute exacerbation of COPD: Chest x-ray showed no acute cardiopulmonary process. BP trend has bronchodilators. On steroids and doxycycline. #History of CAD s/p CABG: * On hydralazine and doxazosin as well as Coreg. Stress test had been ordered on outpatient basis by PCP and this came back negative for any evidence of ischemia. * 2D echo done today showed EF of 60% with stage II diastolic dysfunction and n ormal left ventricular size with mild aortic stenosis. * Pulmonary artery systolic pressure was 55 mmHg indicating moderate pulmonary hypertension. * On aspirin and statin #Chronic heart failure preserved ejection fraction: On Bumex and Coreg. Not in exacerbation. #Hypertension: On Coreg, Bumex and amlodipine as well as hydralazine and doxazosin #ESRD on hemodialysis: On hemodialysis Wednesdays. Nephrology consulted. #Carotid stenosis * Carotid ultrasound had been ordered on outpatient basis. Carotid ultrasound done showed bilateral carotid stenosis. Will consult vascular surgery. #ELAINE: On CPAP which she is noncompliant with. On oxygen nightly. #Chronic respiratory failure due to COPD: On 2 L of oxygen chronically. Breathing treatments bronchodilators. DVT prophylaxis: SCDs Charges/Coding Visit Charges Inpatient E&M: 36453 Subs Hosp L2
[2023-05-23] MEDS: Carvedilol 12.5 MG Tablet PO (16:13)
[2023-05-23] MEDS: Ipratropium/Albuterol Sulfate 3 ML AMPUL.NEB INHALATION (21:22)
[2023-05-23] MEDS: 0.9% Saline Lock 10 ML Syringe IV (22:40)
[2023-05-23] MEDS: Pramipexole Di-HCl 0.25 MG Tablet PO (22:40)
[2023-05-23] MEDS: Doxazosin 4 MG Tablet 8 MG PO (22:40)
[2023-05-23] MEDS: Amitriptyline 100 MG Tablet PO (22:40)
[2023-05-24] VITALS (7 sets, daily range): BP systolic 140–163; BP diastolic 55–90; PULSE 72–82; RESP 16–18; TEMP 36.4–37.1; O2SAT 92–100
[2023-05-24] MEDS: hydrALAZINE 50 MG Tablet 100 MG PO ×2 (05:47→13:28)
[2023-05-24 08:23] LABS: Absolute Lymphocyte Count 0.99 X10^3/uL (0.83-4.51); Absolute Neutrophil Count 6.5 X10^3/uL (2.0-7.7); Basophil# 0.06 X10^3/uL; Basophil% 0.7 % (0-1); Eosinophil# 0.07 X10^3/uL; Eosinophils% 0.8 % (0-5); Hematocrit 27.8 % (37-47); Hemoglobin 8.1 g/dL (12.0-15.0); Lymphocyte # 0.99 X10^3/ul (0.83-4.51); Lymphocyte % 11.8 % (19-41); Mean Corp Hgb Conc 29.1 g/dL (32-36); Mean Corpuscular Hgb 27.2 pg (27.0-32.0); Mean Corpuscular Volume 93.3 fL (81-99); Mean Platelet Vol. 10.1 fl (6.2-12.0); Monocyte# 0.61 X10^3/uL; Monocyte% 7.3 % (0-10); NRBC Flagged by Analyzer 0 % (0-5); Neutrophil # 6.48 X10^3/uL (2.7-7.7); Neutrophil % 77.6 % (47-70); Platelet Count 239 K/mm3 (150-450); RBC Distribution Width CV 18.2 % (11.6-14.6); RBC Distribution Width SD 61.9 fl (35.1-43.9); Red Blood Count 2.98 M/mm3 (4.2-5.4); White Blood Count 8.4 K/mm3 (4.4-11.0)
[2023-05-24 08:44] LABS: Anion Gap 6 (5-15); BUN 54 mg/dL (7-18); BUN/Creat Ratio 11.5 RATIO (10-20); Calcium,Total 8.1 mg/dL (8.5-10.1); Chloride 103 mmol/L (98-107); Creatinine, Serum 4.68 mg/dL (0.55-1.02); EST Glomerular Filtration Rate 10 mL/min (>60); Est Glom Filt Rate - Afr Amer 12 mL/min (>60); Glucose 126 mg/dL (74-106); Potassium 4.1 mmol/L (3.5-5.1); Sodium Level 138 mmol/L (136-145)
[2023-05-24] MEDS: guaiFENesin 1,200 MG Tablet 1200 MG PO (08:55)
[2023-05-24] MEDS: Bumetanide 2 MG Tablet PO (08:55)
[2023-05-24] MEDS: Carvedilol 12.5 MG Tablet PO (08:55)
[2023-05-24] MEDS: Aspirin E.C. 81 MG Tablet PO (08:55)
[2023-05-24] MEDS: predniSONE 20 MG Tablet 40 MG PO (08:55)
[2023-05-24] MEDS: Pantoprazole Sodium 40 MG Tablet PO (08:56)
[2023-05-24] MEDS: Atorvastatin Calcium 80 MG Tablet PO (08:56)
[2023-05-24] MEDS: SEVELAMER CARBONATE 800 MG TABLET PO ×2 (08:56→13:28)
[2023-05-24] MEDS: Doxycycline 100 MG CAPSULE PO (08:56)
[2023-05-24] MEDS: Isosorbide Mononitrate 60 MG Tablet PO (08:56)
[2023-05-24] MEDS: amLODIPine 10 MG Tablet PO (08:56)
--- NOTE | 2023-05-24 10:01 | PN.RENAL_ITS ---
Subjective Subjective Sitting in chair. Reports feeling better overall. Hopeful to be discharged today to home. States tolerated dialysis yesterday without any cramping. Objective Data Objective Data Vital Signs: Vital Signs Temp Pulse Resp BP Pulse Ox O2 Del Method O2 Flow Rate 97.9 F 82 16 163/59 H 97 Nasal Cannula 2 05/24/23 08:53 05/24/23 08:53 05/24/23 08:53 05/24/23 08:53 05/24/23 08:53 05/24/23 08:58 05/24/23 08:58 Oxygen Flow Rate (L/min) 2 Oxygen Delivery Method Nasal Cannula Weight: 75.9 kg Body Mass Index (BMI) 28.7 Intake & Output: Intake and Output for Last 24 Hours 05/22/23 05/23/23 05/24/23 23:59 23:59 23:59 Intake Total 250 / 250 30 / 30 100 / 100 Output Total 1470 / 1470 Balance 250 / 250 -1440 / -1440 100 / 100 Lab / Micro Data 05/24/23 08:05 05/24/23 08:05 Labs: Laboratory Results - last 24 hr 05/24/23 08:05: WBC 8.4, RBC 2.98 L, Hgb 8.1 L, Hct 27.8 L, MCV 93.3, MCH 27.2, MCHC 29.1 L, RDW Std Deviation 61.9 H, RDW Coeff of Becca 18.2 H, Plt Count 239, MPV 10.1, Immature Gran % (Auto) 1.800 H, Neut % (Auto) 77.6 H, Lymph % (Auto) 11.8 L, [place] % (Auto) 7.3, Eos % (Auto) 0.8, Baso % (Auto) 0.7, Absolute Neuts (auto) 6.5, Absolute Lymphs (auto) 0.99, Nucleated RBC % 0, Sodium 138, Pota ssium 4.1, Chloride 103, Carbon Dioxide 29.0, Anion Gap 6, BUN 54 H, Creatinine 4.68 H, Estim Creat Clear Calc 10.20, Est GFR (MDRD) Af Amer 12 L, Est GFR (MDRD) Non-Af 10 L, BUN/Creatinine Ratio 11.5, Glucose 126 H, Calcium 8.1 L Radiography Diagnostic Testing: Radiology Impression Carotid Duplex 05/22/23 17:24 Interpretation Summary Severe (>70%) stenosis right extracranial internal carotid. Moderate (50-69%) stenosis left extracranial internal carotid. Patent and antegrade vertebrals bilaterally. Ordering Physician: Saul Falk Referring Physician: Levi Laird Performed By: Mayra Clarke RVT Echocardiogram 05/22/23 17:24 Interpretation Summary Normal LV size. Left ventricular systolic function is normal. The estimated ejection fraction is 60 %. Stage 2 diastolic dysfunction. Mean aortic valve gradient 16 mmHg. Mild aortic stenosis. Moderate (2+) eccentric mitral valve insufficiency. Pulmonary artery systolic pressure is 55 mmHg. Moderate pulmonary hypertension. Ordering Physician: Saul Falk Performed By: Nayeli Brown RDCS Physical Exam Narrative Alert and orient x 3, no apparent distress S1, S2, RRR Lung sounds clear Abdomen soft, nontender No edema Tunneled dialysis catheter dressing clean, dry and intact Assessment & Plan Assessment/Plan (1) End-stage renal disease on hemodialysis: (2) Altered mental status: (3) COPD (chronic obstructive pulmonary disease): QUALIFIERS: COPD type: unspecified COPD Qualified Code(s): J44.9 - Chronic obstructive pulmonary disease, unspecified (4) Anemia in chronic kidney disease: PLAN: Plan - ESRD on hemodialysis Sunday via a tunneled hemodialysis catheter at [facility]. Patient underwent hemodialysis yesterday. No acute indication for [employer] today. Next dialysis will be tomorrow. - history of anemia of chronic disease and receives KALPANA and iron at [facility]. Will monitor hemoglobin trends. - AMS; mentation at baseline. brain CT which did not show any acute process. Chest x-ray no pleural effusions, no new infiltrate seen - HTN; bps slightly elevated but should see improvement with taking antihypertensives this morning. Will continue to remove fluid with dialysis as patient/blood pressure tolerates. -History of COPD; chest x-ray did not show any acute cardiopulmonary process. Patient on steroids and doxycycline. On O2 which she wears at home as well.
--- NOTE | 2023-05-24 11:40 | EX.PCM.CON.S ---
Assessment & Plan Assessment/Plan (1) Carotid artery stenosis: PLAN: Plan Carotid duplex suggests R ICA with >70% stenosis with max PSV 279/78.5 cm/s. Do not think this contributed to her recent episode of altered mental status, but it is near threshold for asymptomatic surgical intervention. Recommend CTA Head and Neck with contrast to correlate these results and for potential interventional planning. Can complete as an outpatient if preferred, surgery as indicated would be on an outpatient basis. She is medically optimized with ASA 81mg daily and atorvastatin 80mg daily. Will plan to have her follow-up in the office as an outpatient for further management. Our office will contact her to schedule an appointment. HPI Consult Data Date of Consult: 05/24/23 HPI Narrative HPI Narrative: JULISSA VEGA, is a 77 F who presented to the ER on 05/22/23 with SOB, mild confusion, and fatigue. Her family was concerned that she needed a blood transfusion as she has had similar symptoms with acute anemia in the past. She is in ESRD on HD MWF and had had dialysis the day prior to presentation. No issues with dialysis, she utilizes a catheter. Her confusion seemed to resolve by time of her presentation in the ER. CT Head was negative. She was admitted for further workup of her dyspnea including echo, stress test. She had a carotid duplex ordered as an outpatient secondary to carotid bruit, this was completed while she was inpatient this admission and revealed R ICA stenosis >70% and L ICA stenosis 50-69%. No history of known CVA/TIA. No prior carotid interventions. Her medical history is otherwise significant for COPD, CHF, ELAINE, CAD s/p CABG, valvular heart disease, pulmonary hypertension, T2DM. [facility] Medical History (Updated 05/24/23 @ 11:51 by CORNELL Summers) (HFpEF) heart failure with preserved ejection fraction Abdominal pain Accidental fall Acute and chronic respiratory failure with hypoxia Acute bronchospasm Acute on chronic blood loss anemia Acute on chronic respiratory failure with hypoxia Acute renal failure superimposed on stage 3 chronic kidney disease Acute upper gastrointestinal bleeding Anemia Anxiety Arthritis Atherosclerotic heart disease of [place] coronary artery without angina pectoris CAD (coronary artery disease) Chronic diastolic heart failure Chronic hyponatremia Chronic respiratory failure with hypoxia CKD (chronic kidney disease), stage III Congestive heart failure COPD (chronic obstructive pulmonary disease) Cough Diabetes mellitus type 2 in obese Dyslipidemia Easy bruising End-stage renal disease on hemodialysis Essential hypertension Gastritis Generalized weakness GI bleed GI bleed History of blood transfusion History of renal dialysis Hypoxia Iron deficiency anemia Leg cramps Leukocytosis Morbid obesity with BMI of 40.0-44.9, adult Non-rheumatic mitral regurgitation Non-rheumatic tricuspid valve insufficiency On home oxygen therapy ELAINE (obstructive sleep apnea) Pleural effusion Pneumonia Pulmonary hypertension Restless leg syndrome Restless legs Rib contusion Secondary pulmonary hypertension Shortness of breath on exertion Smoking greater than 40 pack years Toe fracture, left Toxic metabolic encephalopathy Valvular heart disease Wears dentures Wears glasses Home Medications amitriptyline 100 mg tablet 100 mg PO QHS mental health 04/09/13 [History Last Taken 05/13/22 21:00] atorvastatin 80 mg tablet 80 mg PO DAILY CHOLESTEROL 10/25/17 [History Last Taken 05/13/22 21:30] amlodipine 10 mg tablet 10 mg PO DAILY BP 06/01/18 [History Last Taken 05/14/22 08:30] doxazosin 8 mg tablet 8 mg PO QHS blood pressure 08/20/18 [History Last Taken 05/13/22 21:30] omeprazole 40 mg capsule,delayed release 40 mg PO DAILY gerd 08/20/18 [History Last Taken 05/13/22 21:30] hydralazine 100 mg tablet 100 mg PO TID diuretic 01/01/19 [History Last Taken 05/14/22 14:00] bumetanide 2 mg tablet 2 mg PO DAILY diuretic 03/14/19 [History Last Taken 05/14/22 08:30] nitroglycerin 0.4 mg sublingual tablet 0.4 mg sublingual Q5M PRN CHEST PAIN 03/14/19 [History Last Taken Unknown] albuterol sulfate 90 mcg/actuation aerosol inhaler (ProAir HFA) 2 puff inhalation Q6H PRN sob 09/30/20 [History Last Taken 05/13/22 08:30] ropinirole 0.5 mg tablet 1.5 mg PO .COMPLEX Check with primary doctor 07/07/21 [History Last Taken 05/13/22 21:30] acetaminophen 500 mg tablet (Acetaminophen Extra Strength) 1,000 mg PO DAILY PRN Pain 05/04/22 [History Last Taken 05/14/22 14:00] ascorbic acid (vitamin C) 500 mg tablet 500 mg PO DAILY SUPPLEMENT 05/04/22 [History Last Taken 05/14/22 08:30] sevelamer carbonate 800 mg tablet 800 mg PO TIDCM PHOSPHATE 05/04/22 [History Last Taken 05/14/22 14:00] isosorbide mononitrate 60 mg tablet,extended release 24 hr 60 mg PO DAILY Check with primary doctor 05/14/22 [History Last Taken 05/13/22 21:30] albuterol sulfate 1.25 mg/3 mL solution for nebulization 1.25 mg (3 mL) inhalation 4X/DAY Wheezing #360 mL 03/20/23 [Rx Last Taken Unknown] budesonide-formoterol HFA 160 mcg-4.5 mcg/actuation aerosol inhaler (Symbicort) 2 inh inhalation BID breathing #3 ea 05/01/23 [Rx Last Taken Unknown] aspirin 81 mg tablet,delayed release (Adult Low Dose Aspirin) 81 mg PO DAILY heart health 05/17/23 [History Last Taken Unknown] carvedilol 12.5 mg tablet 12.5 mg PO BID bp #180 tabs 05/17/23 [Rx Last Taken Unknown] guaifenesin 1,200 mg tablet, extended release 12 hr 1,200 mg PO Q12H PRN congestion 05/17/23 [History Last Taken Unknown] doxycycline monohydrate 100 mg capsule 100 mg PO BID infection #14 CAPSULES 05/20/23 [Rx Last Taken Unknown] prednisone 20 mg tablet 60 mg (3 x 20 mg) PO DAILY copd exac #15 TABLETS 05/20/23 [Rx Last Taken Unknown] Allergy/AdvReac Type Severity Reaction Status Date / Time Penicillins Allergy Hives Verified 05/22/23 13:16 adhesive tape AdvReac Other Verified 05/22/23 13:16 Family History Mother Heart disease Surgical History H/O four vessel coronary artery bypass graft (~04/16/13) Hx of colonoscopy Hx of esophagogastroduodenoscopy Social History household members: family Smoking Status: Former smoker quit date: 03/05/10 alcohol intake: current alcohol intake frequency: other substance use type: does not use Physical Exam Const alert, oriented x3 and no apparent distress General Appearance: cooperative and comfortable HEENT normocephalic, head/scalp atraumatic, hearing grossly normal bilaterally, external ears normal and external nose normal Eyes EOMs intact bilaterally General Eye: normal appearance of both eyes Neck General: normal visual inspection and trachea midline Resp normal respiratory effort, no retractions and no use of accessory muscles Effort and Inspection: able to speak in complete sentences; Negative for labored, grunting, stridor or audible wheezes Cardio regular rate and regular rhythm Bruits: carotid bruit Skin no rashes or lesions noted and no wounds Neuro oriented x3, CN's II-XII intact bilaterally, moves all extremities and no focal motor deficits Speech: speech normal Psych mental status grossly normal Appearance: grossly normal Attitude: calm and engaged Activity / Motor Behavior: appropriate eye contact Speech: normal speech Lab / Micro Data 05/24/23 08:05 05/24/23 08:05 Labs: Laboratory Results - last 24 hr 05/24/23 08:05: WBC 8.4, RBC 2.98 L, Hgb 8.1 L, Hct 27.8 L, MCV 93.3, MCH 27.2, MCHC 29.1 L, RDW Std Deviation 61.9 H, RDW Coeff of Becca 18.2 H, Plt Count 239, MPV 10.1, Immature Gran % (Auto) 1.800 H, Neut % (Auto) 77.6 H, Lymph % (Auto) 11.8 L, [place] % (Auto) 7.3, Eos % (Auto) 0.8, Baso % (Auto) 0.7, Absolute Neuts (auto) 6.5, Absolute Lymphs (auto) 0.99, Nucleated RBC % 0, Sodium 138, Potassium 4.1, Chloride 103, Carbon Dioxide 29.0, Anion Gap 6, BUN 54 H, Creatinine 4.68 H, Estim Creat Clear Calc 10.20, Est GFR (MDRD) Af Amer 12 L, Est GFR (MDRD) Non-Af 10 L, BUN/Creatinine Ratio 11.5, Glucose 126 H, Calcium 8.1 L Imaging Radiology Impression Carotid Duplex 05/22/23 17:24 Interpretation Summary Severe (>70%) stenosis right extracranial internal carotid. Moderate (50-69%) stenosis left extracranial internal carotid. Patent and antegrade vertebrals bilaterally. Ordering Physician: Saul Falk Referring Physician: Levi Laird Performed By: Mayra Clarke RVT Echocardiogram 05/22/23 17:24 Interpretation Summary Normal LV size. Left ventricular systolic function is normal. The estimated ejection fraction is 60 %. Stage 2 diastolic dysfunction. Mean aortic valve gradient 16 mmHg. Mild aortic stenosis. Moderate (2+) eccentric mitral valve insufficiency. Pulmonary artery systolic pressure is 55 mmHg. Moderate pulmonary hypertension. Ordering Physician: Saul Falk Performed By: Nayeli Brown RDCS
--- NOTE | 2023-05-24 14:36 | PCM.DC.SUM ---
Providers Date of Admission: 05/22/23 Date of Discharge: 05/24/23 Primary Care Physician: Dr. Levi Laird MD Consultations 05/22/23 17:24 Consult: Nephrology Routine Consulting Provider: Evert Waite Reason for Consult: ESRD on HD EMERGENT Consult: No Notified: Yes Date Notified: 05/22/23 Time Notified: 19:36 Method of Notification: Text 05/24/23 07:52 Consult: Vascular Surgery Routine Consulting Provider: Sandoval Farias Reason for Consult: bilateral carotid stenosis EMERGENT Consult: No Notified: Yes Date Notified: 05/24/23 Time Notified: 07:52 Method of Notification: Text Reason For Visit: ALTERED MENTAL STATUS, WORSENING SHORTNESS OF Diagnosis Discharge Diagnosis (1) Carotid artery stenosis: Status: Acute Code(s): I65.29 - Occlusion and stenosis of unspecified carotid artery Plan #Acute encephalopathy Resolved. Her mentation is much better and she is alert and oriented x 3. CT of the brain was negative for any acute intracranial pathology. PT OT on board. Fall precautions. #Acute exacerbation of COPD: Chest x-ray showed no acute cardiopulmonary process. BP trend has bronchodilators. On steroids and doxycycline. #History of CAD s/p CABG: On hydralazine and doxazosin as well as Coreg. Stress test had been ordered on outpatient basis by PCP and this came back negative for any evidence of ischemia. 2D echo done today showed EF of 60% with stage II diastolic dysfunction and normal left ventricular size with mild aortic stenosis. Pulmonary artery systolic pressure was 55 mmHg indicating moderate pulmonary hypertension. On aspirin and statin #Chronic heart failure preserved ejection fraction: On Bumex and Coreg. Not in exacerbation. #Hypertension: On Coreg, Bumex and amlodipine as well as hydralazine and doxazosin #ESRD on hemodialysis: On hemodialysis Wednesdays. Nephrology consulted. #Carotid stenosis Carotid ultrasound had been ordered on outpatient basis. Carotid ultrasound done showed bilateral carotid stenosis. Will consult vascular surgery. #ELAINE: On CPAP which she is noncompliant with. On oxygen nightly. #Chronic respiratory failure due to COPD: On 2 L of oxygen chronically. Breathing treatments bronchodilators. DVT prophylaxis: SCDs Medications at Discharge Home Medications amitriptyline 100 mg tablet 100 mg PO QHS mental health 04/09/13 atorvastatin 80 mg tablet 80 mg PO DAILY CHOLESTEROL 10/25/17 amlodipine 10 mg tablet 10 mg PO DAILY BP 06/01/18 doxazosin 8 mg tablet 8 mg PO QHS blood pressure 08/20/18 omeprazole 40 mg capsule,delayed release 40 mg PO DAILY gerd 08/20/18 hydralazine 100 mg tablet 100 mg PO TID diuretic 01/01/19 bumetanide 2 mg tablet 2 mg PO DAILY diuretic 03/14/19 nitroglycerin 0.4 mg sublingual tablet 0.4 mg sublingual Q5M PRN CHEST PAIN 03/14/19 albuterol sulfate 90 mcg/actuation aerosol inhaler (ProAir HFA) 2 puff inhalation Q6H PRN sob 09/30/20 ropinirole 0.5 mg tablet 1.5 mg PO .COMPLEX Check with primary doctor 07/07/21 acetaminophen 500 mg tablet (Acetaminophen Extra Strength) 1,000 mg PO DAILY PRN Pain 05/04/22 ascorbic acid (vitamin C) 500 mg tablet 500 mg PO DAILY SUPPLEMENT 05/04/22 sevelamer carbonate 800 mg tablet 800 mg PO TIDCM PHOSPHATE 05/04/22 isosorbide mononitrate 60 mg tablet,extended release 24 hr 60 mg PO DAILY Check with primary doctor 05/14/22 albuterol sulfate 1.25 mg/3 mL solution for nebulization 1.25 mg (3 mL) inhalation 4X/DAY Wheezing #360 mL 03/20/23 budesonide-formoterol HFA 160 mcg-4.5 mcg/actuation aerosol inhaler (Symbicort) 2 inh inhalation BID breathing #3 ea 05/01/23 aspirin 81 mg tablet,delayed release (Adult Low Dose Aspirin) 81 mg PO DAILY heart health 05/17/23 carvedilol 12.5 mg tablet 12.5 mg PO BID bp #180 tabs 05/17/23 guaifenesin 1,200 mg tablet, extended release 12 hr 1,200 mg PO Q12H PRN congestion 05/17/23 doxycycline monohydrate 100 mg capsule 100 mg PO BID infection #14 CAPSULES 05/20/23 prednisone 20 mg tablet 40 mg (2 x 20 mg) PO BREAKFAST #10 tabs 05/24/23 Hospital Course Operations None Procedures None and 2-D Echocardiogram Summary of Care Provided Minutes Spent on Discharge: 55 Hospital Course: Patient is a 77-year-old female with a past medical history as outlined who was admitted through the ED on 05/22/2023 with a complaint of altered mental status and shortness of breath. She had been seen in the ED on 05/20/2023 for shortness of breath and was started on p.o. steroids and doxycycline for COPD exacerbation and discharged home. However his shortness of breath persisted. She had seen her driver recruiter on outpatient basis who had ordered a stress test and repeat echocardiogram on account of her persistent shortness of breath. A carotid bruit was also noted on examination and she was supposed to have a carotid ultrasound done but had not yet had these done when she came into the hospital. Chest x-ray showed no significant change and no new infiltrate was seen. She was admitted and managed for acute encephalopathy likely due to COPD exacerbation. She was placed on breathing treatments bronchodilators. Her mentation improved significantly. CT of the brain showed no acute intracranial pathology. Ammonia level was 16. ABG showed mild hypercapnia with pCO2 of 50. The labs as requested by her driver recruiter were ordered namely carotid ultrasound and 2D echo. Nephrology was also consulted for dialysis. She did have a carotid ultrasound which showed bilateral carotid stenosis. Vascular surgery was consulted and recommended that patient follow-up on outpatient basis. Patient's symptoms resolved completely and she felt much better. She was discharged home on 05/24/2023. She is follow-up with her primary care doctor within 1 to 2 weeks and also to follow-up with vascular surgery and her driver recruiter within 1 to 2 weeks. Patient seen and examined prior to discharge. He had no active complaints and had an uneventful night. Review of systems otherwise negative. Labs and vitals reviewed. Home medication reviewed. Physical Exam Const alert, oriented x3 and no apparent distress General Appearance: cooperative, comfortable, well kempt and well developed HEENT normocephalic, head/scalp atraumatic, hearing grossly normal bilaterally, nasal mucous membranes and turbinates normal, moist oral mucous membranes and oropharynx normal Mouth: oral and palatal mucosa normal Eyes PERRL, EOMs intact bilaterally and conjunctivae normal Neck full ROM, no lymphadenopathy and supple Lymph Lymphatic: no lymphadenopathy noted and no lymphedema noted Chest inspection of chest normal Resp Resp Narrative: diminished breath sounds bibasally, no wheezes or crackles. on 2L of oxygen by nasal canula. Cardio regular rate, regular rhythm, S1 normal heart sound, S2 normal heart sound, no murmurs and peripheral pulses 2+ throughout GI normal to inspection, nondistended, normoactive bowel sounds, soft to palpation, non-tender and non-distended Back/Spine normal ROM Extremity normal to inspection, full ROM, normal capillary refill, no clubbing, cyanosis or edema, no calf tenderness and no pedal edema General Extremity: no tenderness to palpation of joints or extremities Skin no rashes or lesions noted General Skin Exam: no breakdown Neuro oriented x3, CN's II-XII intact bilaterally, moves all extremities, no focal motor deficits, no sensory deficits noted and deep tendon reflexes 2+ bilaterally Coordination / Balance: [id number] test normal Speech: speech normal Motor Exam: strength 5/5 throughout and general weakness Psych thought process normal and cooperative Appearance: appropriate Weight / BMI Weight Weight: 167 lb 5.294 oz Body Mass Index (BMI) 28.7 ABG / Lab / Microbiology Data 05/24/23 08:05 05/24/23 08:05 Laboratory: Laboratory Results - last 24 hr 05/24/23 08:05: WBC 8.4, RBC 2.98 L, Hgb 8.1 L, Hct 27.8 L, MCV 93.3, MCH 27.2, MCHC 29.1 L, RDW Std Deviation 61.9 H, RDW Coeff of Becca 18.2 H, Plt Count 239, MPV 10.1, Immature Gran % (Auto) 1.800 H, Neut % (Auto) 77.6 H, Lymph % (Auto) 11.8 L, [place] % (Auto) 7.3, Eos % (Auto) 0.8, Baso % (Auto) 0.7, Absolute Neuts (auto) 6.5, Absolute Lymphs (auto) 0.99, Nucleated RBC % 0, Sodium 138, Potassium 4.1, Chloride 103, Carbon Dioxide 29.0, Anion Gap 6, BUN 54 H, Creatinine 4.68 H, Estim Creat Clear Calc 10.20, Est GFR (MDRD) Af Amer 12 L, Est GFR (MDRD) Non-Af 10 L, BUN/Creatinine Ratio 11.5, Glucose 126 H, Calcium 8.1 L Radiography Diagnostic Testing: Radiology Impression Carotid Duplex 05/22/23 17:24 Interpretation Summary Severe (>70%) stenosis right extracranial internal carotid. Moderate (50-69%) stenosis left extracranial internal carotid. Patent and antegrade vertebrals bilaterally. Ordering Physician: Saul Falk Referring Physician: Levi Laird Performed By: Mayra Clarke RVT D/C Instructions Discharge Diet: Low fat / Low cholesterol Discharge Activity: Return to Normal Activity Weight Bearing Status: Weight bearing as tolerated Call your doctor if you observe: Fever of 101 or Higher, Shortness of breath, Dizziness, Swelling in the ankles and Chest pain Meaningful Use Info Meaningful Use Diagnoses (Choose all that apply): None applicable Discharge Plan Admission Admit Date/Time: 05/22/23 16:00 Primary Reason for Your Visit: altered mental status, bilateral carotid stenosis Attending Provider: Jo Ken Primary Care Provider: Levi Laird Consulting Providers: Evert Waite; Saul Falk; Sandoval Farias Instructions Patient Instructions: ED ALOC, Carotid Artery Disease Discharge Orders/Prescriptions Prescriptions: New prednisone 20 mg Tablet 40 mg PO BREAKFAST Qty: 10 0RF Continued albuterol sulfate [ProAir HFA] 90 mcg/actuation HFA aerosol inhaler 2 puff inhalation Q6H PRN (Reason: sob) ropinirole 0.5 mg tablet 1.5 mg PO .COMPLEX Patient Comments: 1 mg every morning and afternoon 1.5mg every evening Rx Instructions: 1.5 mg orally QHS; 1 mg orally every morning and afternoon guaifenesin 1,200 mg tablet extended release 12hr 1,200 mg PO Q12H PRN (Reason: congestion) aspirin [Adult Low Dose Aspirin] 81 mg tablet,delayed release (DR/EC) 81 mg PO DAILY amitriptyline 100 MG tablet 100 mg PO QHS Patient Comments: MENTAL HEALTH atorvastatin 80 MG tablet 80 mg PO DAILY Patient Comments: amlodipine 10 MG tablet 10 mg PO DAILY omeprazole 40 MG capsule,delayed release(DR/EC) 40 mg PO DAILY Hold Instructions: Resume on 05/08/21. doxazosin 8 MG tablet 8 mg PO QHS hydralazine 100 mg tablet 100 mg PO TID nitroglycerin 0.4 MG tablet, sublingual 0.4 mg SL Q5M PRN (Reason: CHEST PAIN) bumetanide 2 MG tablet 2 mg PO DAILY acetaminophen [Acetaminophen Extra Strength] 500 mg Tablet 1,000 mg PO DAILY PRN (Reason: Pain) sevelamer carbonate 800 mg tablet 800 mg PO TIDCM ascorbic acid (vitamin C) 500 MG tablet 500 mg PO DAILY isosorbide mononitrate 60 mg tablet extended release 24 hr 60 mg PO DAILY doxycycline monohydrate 100 mg capsule 100 mg PO BID Qty: 14 0RF albuterol sulfate 1.25 mg/3 mL solution for nebulization 1.25 mg INHALATION 4X/DAY Qty: 360 6RF budesonide-formoterol [Symbicort] 160-4.5 mcg/actuation HFA aerosol inhaler 2 inh INHALATION BID Qty: 3 3RF Rx Instructions: administer with spacer, rinse mouth after each use carvedilol 12.5 mg tablet 12.5 mg PO BID Qty: 180 3RF Rx Instructions: must administer with a meal/food Discontinued prednisone 20 mg tablet 60 mg PO DAILY Qty: 15 0RF Referrals / Follow Up: Sandoval Farias MD [Med Staff - Active Staff] - Within 2 Weeks Evert Waite MD [Med Staff - Consulting] - Within 1 Week Levi Laird MD [Primary Care Provider] - Within 2 Weeks Disposition Disposition (needs filled in before D/C Order can be placed): Home, Self Care Charges/Coding Visit Charges Inpatient E&M: 81837 Disch Hosp >30min
--- NOTE | 2023-05-24 15:33 | CASEMGMT ---
Patient has order for discharge. Patient does not qualify for more oxygen at discharge. No therapy recommended at discharge. RN CM in to discuss needs at discharge. Patient denies needs or help at discharge. Patient had no further questions or concerns.
== END 2023-05-24 16:05 | disposition home or self-care (01) | DRG 190 ==
LOC: ED 15:24 → PCU 16:08
PROVIDERS: Admitting Provider Hospitalist; Emergency Provider Emergency Medicine; PCP Family Medicine; Visit Provider Student in an Organized Health Care Education/Training Program
DX: J44.1 Chronic obstructive pulmonary disease with (acute) exacerbation (principal); N18.6 End stage renal disease; J96.92 Respiratory failure, unspecified with hypercapnia; G93.41 Metabolic encephalopathy; I13.2 Hypertensive heart and chronic kidney disease with heart failure and with stage 5 chronic kidney disease, or end stage renal disease; I50.32 Chronic diastolic (congestive) heart failure; I27.20 Pulmonary hypertension, unspecified; D63.1 Anemia in chronic kidney disease; E11.22 Type 2 diabetes mellitus with diabetic chronic kidney disease; Z99.2 Dependence on renal dialysis; I65.23 Occlusion and stenosis of bilateral carotid arteries; G25.81 Restless legs syndrome; I25.10 Atherosclerotic heart disease of native coronary artery without angina pectoris; E78.5 Hyperlipidemia, unspecified; G47.33 Obstructive sleep apnea (adult) (pediatric); D72.828 Other elevated white blood cell count; R41.82 Altered mental status, unspecified; Z79.51 Long term (current) use of inhaled steroids; Z87.891 Personal history of nicotine dependence; Z99.89 Dependence on other enabling machines and devices; Z79.899 Other long term (current) drug therapy; Z79.82 Long term (current) use of aspirin; Z95.1 Presence of aortocoronary bypass graft; R01.1 Cardiac murmur, unspecified
CPT/HCPCS: 36415; 36600; 70450; 71045; 78452; 80048; 80076; 82140; 82803; 83036; 84484; 85025; 85610; 85730; 86850; 86900; 86901; 87040; 90937; 93005; 93017; 93306; 93880; 94640; 94668; 96374; 97161; 97166; 97802; 99252; 99284; A9500; J7030; A4216; G0257; G0463; J2785

== ENCOUNTER 2023-05-29 08:05 | Outpatient (CLI) | payer MEDICARE, MEDICAID, SELFPAY ==
[2023-05-29] VITALS (7 sets, daily range): BP systolic 119–140; BP diastolic 44–48; PULSE 68–76; RESP 16; TEMP 36.6–37.2; O2SAT 99–100; BMI 29.0
[2023-05-29] MEDS: Furosemide 20 MG/2 ML VIAL IV (11:08)
== END 2023-05-29 08:06 | disposition home or self-care (01) ==
PROVIDERS: PCP Family Medicine
DX: D64.9 Anemia, unspecified (principal)
CPT/HCPCS: 96374; 36415; 36430; 86850; 86900; 86901; 86920; 86922; J7040; P9016; A4216; J1940

== ENCOUNTER 2023-06-02 12:58 | Emergency (ER) | payer MEDICARE, MEDICAID, SELFPAY ==
[2023-06-02] VITALS (7 sets, daily range): BP systolic 156–167; BP diastolic 59–68; PULSE 79–88; RESP 16–22; TEMP 36.8–37.2; O2SAT 95–98; BMI 32.3
--- NOTE | 2023-06-02 13:27 | EKG12_ITS ---
Test Reason : Blood Pressure : / mmHG Vent. Rate : 084 BPM Atrial Rate : 084 BPM P-R Int : 172 ms QRS Dur : 102 ms QT Int : 394 ms P-R-T Axes : 046 030 085 degrees QTc Int : 465 ms Normal sinus rhythm Possible Left atrial enlargement Nonspecific ST and T wave abnormality Abnormal ECG Confirmed by Wilbur Cao ([id number]), associate entertainment editor DENVER KRAUSE ([id number]) on 06/05/2023 10:24:27 AM Referred By: Confirmed By:Wilbur Cao
--- NOTE | 2023-06-02 13:32 | ED.VIS.DYS ---
HPI <CORNELL Selby - Last Filed: 06/02/23 16:40> History of Present Illness Chief Complaint: Shortness of Breath Narrative Narrative: Patient presenting today due to shortness of breath, cough, and fatigue that she has had for about a week. She is here with her son-in-law who reports that she has seemed more congested over this past week. She did have a fever of 102 ?F this afternoon. She does wear 2 L O2 at baseline. She has a PMH of coronary artery disease, COPD on home oxygen, end-stage renal disease on dialysis, obstructive sleep apnea, congestive heart failure, and pulmonary hypertension. She sees Dr. Ferreira with pulmonology. Family reports that she was just recently in the hospital for altered mental status and COPD exacerbation from 05/21 through 05/23. PE Risk Factors: Negative for Cancer, Prior DVT or PE, Recent immobilization, Recent surgery or Recent travel PFSH <CORNELL Selby - Last Filed: 06/02/23 16:40> [facility] Medical History (HFpEF) heart failure with preserved ejection fraction Abdominal pain Accidental fall Acute and chronic respiratory failure with hypoxia Acute bronchospasm Acute on chronic blood loss anemia Acute on chronic respiratory failure with hypoxia Acute renal failure superimposed on stage 3 chronic kidney disease Acute upper gastrointestinal bleeding Anemia Anemia in chronic kidney disease Anxiety Arthritis Atherosclerotic heart disease of [place] coronary artery without angina pectoris CAD (coronary artery disease) Carotid artery stenosis Chronic diastolic heart failure Chronic hyponatremia Chronic respiratory failure with hypoxia CKD (chronic kidney disease), stage III Congestive heart failure COPD (chronic obstructive pulmonary disease) Cough Diabetes mellitus type 2 in obese Dyslipidemia Easy bruising End-stage renal disease on hemodialysis Essential hypertension Gastritis Generalized weakness GI bleed GI bleed History of blood transfusion History of renal dialysis Hypoxia Iron deficiency anemia Leg cramps Leukocytosis Morbid obesity with BMI of 40.0-44.9, adult Non-rheumatic mitral regurgitation Non-rheumatic tricuspid valve insufficiency On home oxygen therapy ELAINE (obstructive sleep apnea) Pleural effusion Pneumonia Pulmonary hypertension Restless leg syndrome Restless legs Rib contusion Secondary pulmonary hypertension Shortness of breath on exertion Smoking greater than 40 pack years Toe fracture, left Toxic metabolic encephalopathy Valvular heart disease Wears dentures Wears glasses Home Medications amitriptyline 100 mg tablet 100 mg PO QHS mental health 04/09/13 [History Last Taken 05/13/22 21:00] atorvastatin 80 mg tablet 80 mg PO DAILY CHOLESTEROL 10/25/17 [History Last Taken 05/13/22 21:30] amlodipine 10 mg tablet 10 mg PO DAILY BP 06/01/18 [History Last Taken 05/14/22 08:30] doxazosin 8 mg tablet 8 mg PO QHS blood pressure 08/20/18 [History Last Taken 05/13/22 21:30] omeprazole 40 mg capsule,delayed release 40 mg PO DAILY gerd 08/20/18 [History Last Taken 05/13/22 21:30] hydralazine 100 mg tablet 100 mg PO TID diuretic 01/01/19 [History Last Taken 05/14/22 14:00] bumetanide 2 mg tablet 2 mg PO DAILY diuretic 03/14/19 [History Last Taken 05/14/22 08:30] nitroglycerin 0.4 mg sublingual tablet 0.4 mg sublingual Q5M PRN CHEST PAIN 03/14/19 [History Last Taken Unknown] albuterol sulfate 90 mcg/actuation aerosol inhaler (ProAir HFA) 2 puff inhalation Q6H PRN sob 09/30/20 [History Last Taken 05/13/22 08:30] ropinirole 0.5 mg tablet 1.5 mg PO .COMPLEX restless legs 07/07/21 [History Last Taken 05/13/22 21:30] acetaminophen 500 mg tablet (Acetaminophen Extra Strength) 1,000 mg PO DAILY PRN Pain 05/04/22 [History Last Taken 05/14/22 14:00] ascorbic acid (vitamin C) 500 mg tablet 500 mg PO DAILY SUPPLEMENT 05/04/22 [History Last Taken 05/14/22 08:30] sevelamer carbonate 800 mg tablet 800 mg PO TIDCM PHOSPHATE 05/04/22 [History Last Taken 05/14/22 14:00] isosorbide mononitrate 60 mg tablet,extended release 24 hr 60 mg PO DAILY heart 05/14/22 [History Last Taken 05/13/22 21:30] albuterol sulfate 1.25 mg/3 mL solution for nebulization 1.25 mg (3 mL) inhalation 4X/DAY Wheezing #360 mL 03/20/23 [Rx Last Taken Unknown] budesonide-formoterol HFA 160 mcg-4.5 mcg/actuation aerosol inhaler (Symbicort) 2 inh inhalation BID breathing #3 ea 05/01/23 [Rx Last Taken Unknown] aspirin 81 mg tablet,delayed release (Adult Low Dose Aspirin) 81 mg PO DAILY heart health 05/17/23 [History Last Taken Unknown] carvedilol 12.5 mg tablet 12.5 mg PO BID bp #180 tabs 05/17/23 [Rx Last Taken Unknown] guaifenesin 1,200 mg tablet, extended release 12 hr 1,200 mg PO Q12H PRN congestion 05/17/23 [History Last Taken Unknown] doxycycline monohydrate 100 mg capsule 100 mg PO BID infection #14 CAPSULES 05/20/23 [Rx Last Taken Unknown] prednisone 20 mg tablet 40 mg (2 x 20 mg) PO BREAKFAST #10 tabs 05/24/23 [Rx Last Taken Unknown] prednisone 10 mg tablet 10 mg PO UD #30 tabs 06/02/23 [Rx Last Taken Unknown] Allergy/AdvReac Type Severity Reaction Status Date / Time Penicillins Allergy Hives Verified 06/02/23 13:01 adhesive tape AdvReac Other Verified 06/02/23 13:01 Family History Mother Heart disease Surgical History H/O four vessel coronary artery bypass graft (~04/16/13) Hx of colonoscopy Hx of esophagogastroduodenoscopy Social History household members: family Smoking Status: Former smoker quit date: 03/05/10 alcohol intake: current alcohol intake frequency: other substance use type: does not use ROS <CORNELL Selby - Last Filed: 06/02/23 16:40> ROS ED Constitutional Constitutional ED: Reports fever(s) ENT ENT ED: Reports nasal congestion Cardiovascular Cardiovascular: Denies chest pain or palpitations Respiratory/Chest Respiratory/Chest: Reports cough and dyspnea Gastrointestinal Gastrointestinal: Denies abdominal pain, nausea or vomiting Musculoskeletal Musculoskeletal: Denies arthralgias or myalgias Integumentary Denies rash Neurologic Neurologic: Denies weakness EXAM <CORNELL Selby - Last Filed: 06/02/23 16:40> Physical Exam Const Vital Signs: 06/02/23 12:59 06/02/23 13:00 06/02/23 13:08 Temperature 98.7 F 98.7 F Temperature Source Temporal Temporal Pulse Rate 88 88 Respiratory Rate 22 H 22 H Respiratory Effort Short of Breath Labored Respiratory Depth Shallow Respiratory Pattern Tachypnea Blood Pressure 165/59 H 165/59 H Blood Pressure Mean 94 94 Pulse Ox 95 95 Oxygen Delivery Method Nasal Cannula Nasal Cannula Nasal Cannula Oxygen Flow Rate (L/min) 3 3 2 06/02/23 13:34 06/02/23 14:00 06/02/23 13:58 Temperature 98.9 F Temperature Source Axillary Pulse Rate 83 83 Respiratory Rate 17 19 H Respiratory Effort Respiratory Depth Respiratory Pattern Blood Pressure 167/68 H 164/64 H Blood Pressure Mean 101 97 Pulse Ox 97 96 Oxygen Delivery Method Nasal Cannula Nasal Cannula Nasal Cannula Oxygen Flow Rate (L/min) 2 2 2 06/02/23 15:00 06/02/23 15:47 Temperature 98.7 F 98.3 F Temperature Source Axillary Pulse Rate 81 79 Respiratory Rate 16 21 H Respiratory Effort Respiratory Depth Respiratory Pattern Blood Pressure 156/62 H 161/64 H Blood Pressure Mean 93 96 Pulse Ox 98 98 Oxygen Delivery Method Nasal Cannula Oxygen Flow Rate (L/min) 2 Positive well nourished, well developed and no apparent distress General Appearance ED: well developed HEENT Reports normocephalic and head/scalp atraumatic Mouth ED: Yes moist mucous membranes normal Eyes PERRL and EOMs intact bilaterally Neck full ROM and supple Chest Wall inspection of chest normal Resp normal respiratory effort Resp Narrative: Diffuse coarse breath sounds and expiratory wheezes bilaterally. Cardio regular rate and regular rhythm GI soft to palpation, non-tender, non-distended and no masses Back/Spine normal ROM and normal to inspection Extremity normal to inspection and full ROM Neuro oriented x3, CN's II-XII intact bilaterally, moves all extremities, no focal motor deficits and no sensory deficits noted Sensorium / Orientation: awake and alert Psych mental status grossly normal and thought process normal Skin no rashes or lesions noted and no wounds <Dr. Sandoval Hernández, DO - Last Filed: 06/02/23 16:03> Physical Exam Const Vital Signs: 06/02/23 12:59 06/02/23 13:00 06/02/23 13:08 Temperature 98.7 F 98.7 F Temperature Source Temporal Temporal Pulse Rate 88 88 Respiratory Rate 22 H 22 H Respiratory Effort Short of Breath Labored Respiratory Depth Shallow Respiratory Pattern Tachypnea Blood Pressure 165/59 H 165/59 H Blood Pressure Mean 94 94 Pulse Ox 95 95 Oxygen Delivery Method Nasal Cannula Nasal Cannula Nasal Cannula Oxygen Flow Rate (L/min) 3 3 2 06/02/23 13:34 06/02/23 14:00 06/02/23 13:58 Temperature 98.9 F Temperature Source Axillary Pulse Rate 83 83 Respiratory Rate 17 19 H Respiratory Effort Respiratory Depth Respiratory Pattern Blood Pressure 167/68 H 164/64 H Blood Pressure Mean 101 97 Pulse Ox 97 96 Oxygen Delivery Method Nasal Cannula Nasal Cannula Nasal Cannula Oxygen Flow Rate (L/min) 2 2 2 06/02/23 15:00 06/02/23 15:47 Temperature 98.7 F 98.3 F Temperature Source Axillary Pulse Rate 81 79 Respiratory Rate 16 21 H Respiratory Effort Respiratory Depth Respiratory Pattern Blood Pressure 156/62 H 161/64 H Blood Pressure Mean 93 96 Pulse Ox 98 98 Oxygen Delivery Method Nasal Cannula Oxygen Flow Rate (L/min) 2 MDM <CORNELL Selby - Last Filed: 06/02/23 16:40> [facility] Narrative Medical decision making narrative: Patient presenting with flulike symptoms and shortness of breath she has had over the past week or so. She is nontoxic-appearing and in no acute distress, she is afebrile and oxygen saturation is 98% on her usual 2 L O2. COVID, influenza, and RSV swabs will be obtained as well as labs. Labs show a WBC of 17.6, the nurse did come in to see patient was triggering sepsis criteria with her white count and respiratory rate, therefore blood cultures and lactic were obtained. Lactic is WNL, She did test positive for COVID but is outside of the window for Paxlovid. I did speak with Dr. Ferreira, her magento web developer who recommends starting her on a prednisone taper over 12 days. Supportive care measures were discussed and return instructions were given. She will be discharged home in stable condition and is comfortable with plan. Lab Data Attestation: I reviewed the patient's lab results. Lab results narrative: WBC 17.6, H&H 9.3 and 30.6, BUN 29, creatinine 4.82 Labs: Laboratory Results - last 24 hr 06/02/23 06/02/23 13:40 14:15 WBC 17.6 H RBC 3.23 L Hgb 9.3 L Hct 30.6 L MCV 94.7 MCH 28.8 MCHC 30.4 L RDW Std Deviation 64.6 H RDW Coeff of Becca 20.1 H Plt Count 275 MPV 10.4 Immature Gran % (Auto) 3.900 H Neut % (Auto) 90.6 H Lymph % (Auto) 2.3 L [place] % (Auto) 2.8 Eos % (Auto) 0.2 Baso % (Auto) 0.2 Absolute Neuts (auto) 16.0 H Absolute Lymphs (auto) 0.40 L Nucleated RBC % 0.3 Anisocytosis 2+ Sodium 138 Potassium 5.0 Chloride 101 Carbon Dioxide 29.0 Anion Gap 8 BUN 29 H Creatinine 4.82 H Estim Creat Clear Calc 9.37 Est GFR (MDRD) Af Amer 11 L Est GFR (MDRD) Non-Af 9 L BUN/Creatinine Ratio 6.0 L Glucose 168 H Lactic Acid 0.6 Calcium 8.0 L Troponin I High Sens 20 Radiography X-Ray: Read by ED Physician and Read by Radiologist Diagnostic Testing: Clinical Impression(s) from Imaging Studies Chest X-Ray 06/02/23 13:48 IMPRESSION: Chronic CHF Electronically Signed: Kam Hughes MD at 14:35 EDT Reading Location ID and State: [address] [place] [address] , Service support , <Dr. Sandoval Hernández, DO - Last Filed: 06/02/23 16:03> [facility] Lab Data Labs: Laboratory Results - last 24 hr 06/02/23 06/02/23 13:40 14:15 WBC 17.6 H RBC 3.23 L Hgb 9.3 L Hct 30.6 L MCV 94.7 MCH 28.8 MCHC 30.4 L RDW Std Deviation 64.6 H RDW Coeff of Becca 20.1 H Plt Count 275 MPV 10.4 Immature Gran % (Auto) 3.900 H Neut % (Auto) 90.6 H Lymph % (Auto) 2.3 L [place] % (Auto) 2.8 Eos % (Auto) 0.2 Baso % (Auto) 0.2 Absolute Neuts (auto) 16.0 H Absolute Lymphs (auto) 0.40 L Nucleated RBC % 0.3 Anisocytosis 2+ Sodium 138 Potassium 5.0 Chloride 101 Carbon Dioxide 29.0 Anion Gap 8 BUN 29 H Creatinine 4.82 H Estim Creat Clear Calc 9.37 Est GFR (MDRD) Af Amer 11 L Est GFR (MDRD) Non-Af 9 L BUN/Creatinine Ratio 6.0 L Glucose 168 H Lactic Acid 0.6 Calcium 8.0 L Troponin I High Sens 20 Radiography Diagnostic Testing: Clinical Impression(s) from Imaging Studies Chest X-Ray 06/02/23 13:48 IMPRESSION: Chronic CHF Electronically Signed: Kam Hughes MD at 14:35 EDT , EKG Initial EKG: Attestation: I personally reviewed and interpreted this EKG as follows: Interpretation: Sinus Rhythm (84) and Non-Specific ST Changes Comments: EKG was obtained. On my independent interpretation, it showed a normal sinus rhythm with a rate of 84. SC interval, QRS interval, and QTc intervals were all normal. [place] was normal. There are nonspecific ST-T wave changes. Prior EKG tracings: available for review Prior: Unchanged (05/23/2023) Treatment and Re-Evaluation :: I have personally performed a face to face assessment of the patient and have reviewed the SANDIE Note. I performed a substantive portion of the visit including all aspects of the following. My lynch findings include: History: Patient presents with shortness of breath that has been getting progressively worse over the past few days. Family states patient has had a fever up to 102. Family states patient was recently admitted and given a blood transfusion 4 days ago. Family states that she normally gets this way when she becomes anemic. Family also states patient was recently started on steroids for COPD exacerbation. Family states that they contacted the patient's magento web developer who referred the patient to the emergency department for possible pneumonia. Exam: Vital signs are stable. Patient is afebrile. Patient is in no acute distress. Oral mucosa is pink and moist. Neck is supple. Trachea is midline. Lungs show diffuse expiratory wheezing. There is good respiratory effort noted. There are no retractions noted. Heart with regular rate and rhythm. There is a grade 3/6 systolic murmur at the left upper sternal border. Abdomen is soft. Bowel sounds normal. There is no tenderness. Extremities are intact. There is no calf tenderness or edema. Cranial nerves II through XII are grossly intact. There are no focal motor or sensory deficits noted. Medical Decision Making: Differential diagnosis includes pneumonia, bronchitis, viral illness, congestive heart failure, cardiac dysrhythmia, cardiac ischemia, and COPD exacerbation. EKG will be obtained to assess for cardiac dysrhythmia and cardiac ischemia. Chest x-ray will be obtained to assess for pneumonia, congestive heart failure, and COPD. CBC will be obtained to assess for leukocytosis and anemia. Basic metabolic profile will be obtained to assess for electrolyte abnormality and renal function. High-sensitivity troponin will be obtained to assess for cardiac ischemia. COVID flu, and RSV PCR will be obtained to assess for viral illness. EKG was obtained. On my independent interpretation, it showed a normal sinus rhythm with a rate of 84. SC interval, QRS interval, and QTc intervals were all normal. [place] was normal. There are nonspecific ST-T wave changes. This was unchanged compared to previous EKG. PA and lateral chest x-rays obtained. There are 2 views. My independent interpretation, there is evidence of chronic congestive heart failure. There is no acute process noted. There is no cardiomegaly noted. Radiologist also interpreted the x-ray and agrees. CBC was reviewed. There is a mild leukocytosis of 17.6. Hemoglobin was 9.3 and hematocrit is 30.6. This is similar to previous results. Basic metabolic profile was reviewed. BUN was 29 and creatinine was 4.82. These are consistent with prior results. High-sensitivity troponin was reviewed and was normal at 20. Serum lactate was reviewed and was 0.6. COVID-19 PCR was reviewed and was positive. Influenza PCR was reviewed and was negative for influenza A and influenza B. RSV PCR was reviewed and was negative. Patient was advised of her findings. Patient wants to go home. Patient was instructed to follow-up with her primary care physician in 5 to 7 days. Patient was instructed return if worse in any way. Patient understood and was agreeable with the plan. All questions were answered. Discharge Plan Triage Chief Complaint: Shortness of Breath ED Midlevel Provider: Liliane Tejeda ED Provider: Sandoval Hernández Dx/Rx/DC Orders Clinical Impression: COVID-19, CKD (chronic kidney disease), stage III Instructions: Coronavirus Disease 2019 (COVID-19): Caring for Yourself or Others Prescriptions: New prednisone 10 mg tablet 10 mg PO UD Qty: 30 0RF Rx Instructions: Take 4 tablets daily for 3 days, then 3 daily for 3 days, then 2 daily for 3 days, then 1 a day for 3 days. No Action albuterol sulfate [ProAir HFA] 90 mcg/actuation HFA aerosol inhaler 2 puff inhalation Q6H PRN (Reason: sob) ropinirole 0.5 mg tablet 1.5 mg PO .COMPLEX Patient Comments: 1 mg every morning and afternoon 1.5mg every evening Rx Instructions: 1.5 mg orally QHS; 1 mg orally every morning and afternoon guaifenesin 1,200 mg tablet extended release 12hr 1,200 mg PO Q12H PRN (Reason: congestion) aspirin [Adult Low Dose Aspirin] 81 mg tablet,delayed release (DR/EC) 81 mg PO DAILY amitriptyline 100 MG tablet 100 mg PO QHS Patient Comments: MENTAL HEALTH atorvastatin 80 MG tablet 80 mg PO DAILY Patient Comments: amlodipine 10 MG tablet 10 mg PO DAILY omeprazole 40 MG capsule,delayed release(DR/EC) 40 mg PO DAILY Hold Instructions: Resume on 05/08/21. doxazosin 8 MG tablet 8 mg PO QHS hydralazine 100 mg tablet 100 mg PO TID nitroglycerin 0.4 MG tablet, sublingual 0.4 mg SL Q5M PRN (Reason: CHEST PAIN) bumetanide 2 MG tablet 2 mg PO DAILY acetaminophen [Acetaminophen Extra Strength] 500 mg Tablet 1,000 mg PO DAILY PRN (Reason: Pain) sevelamer carbonate 800 mg tablet 800 mg PO TIDCM ascorbic acid (vitamin C) 500 MG tablet 500 mg PO DAILY isosorbide mononitrate 60 mg tablet extended release 24 hr 60 mg PO DAILY doxycycline monohydrate 100 mg capsule 100 mg PO BID Qty: 14 0RF prednisone 20 mg Tablet 40 mg PO BREAKFAST Qty: 10 0RF albuterol sulfate 1.25 mg/3 mL solution for nebulization 1.25 mg INHALATION 4X/DAY Qty: 360 6RF budesonide-formoterol [Symbicort] 160-4.5 mcg/actuation HFA aerosol inhaler 2 inh INHALATION BID Qty: 3 3RF Rx Instructions: administer with spacer, rinse mouth after each use carvedilol 12.5 mg tablet 12.5 mg PO BID Qty: 180 3RF Rx Instructions: must administer with a meal/food Primary Care Provider: Levi Laird Referrals: Levi Laird MD [Primary Care Provider] - 5-7 Days Activity Restrictions/Additional Instructions: Please follow-up with your PCP and return for any worsening of your symptoms. Give Tylenol for fevers as needed. Disposition Disposition: Home, Self Care Discharge Date/Time: 06/02/23 16:02
[2023-06-02 13:48] LABS: Basophil# 0.04 X10^3/uL; Basophil% 0.2 % (0-1); Eosinophil# 0.03 X10^3/uL; Eosinophils% 0.2 % (0-5); Hematocrit 30.6 % (37-47); Hemoglobin 9.3 g/dL (12.0-15.0); Lymphocyte % 2.3 % (19-41); Mean Corp Hgb Conc 30.4 g/dL (32-36); Mean Corpuscular Hgb 28.8 pg (27.0-32.0); Mean Corpuscular Volume 94.7 fL (81-99); Mean Platelet Vol. 10.4 fl (6.2-12.0); Monocyte# 0.49 X10^3/uL; Monocyte% 2.8 % (0-10); NRBC Flagged by Analyzer 0.3 % (0-5); Neutrophil # 15.98 X10^3/uL (2.7-7.7); Neutrophil % 90.6 % (47-70); POSITIVE DIFFERENTIAL YES; POSITIVE MORPHOLOGY YES; Platelet Count 275 K/mm3 (150-450); RBC Distribution Width CV 20.1 % (11.6-14.6); RBC Distribution Width SD 64.6 fl (35.1-43.9); Red Blood Count 3.23 M/mm3 (4.2-5.4); White Blood Count 17.6 K/mm3 (4.4-11.0)
--- NOTE | 2023-06-02 13:48 | RAD_ITS ---
STUDY: X-RAY CHEST REASON FOR EXAM: Female, 77 years old. shortness of breath TECHNIQUE: AP and lateral views of the chest. COMPARISON: May 22, 2023 FINDINGS: 1. Right central venous catheter is stable 2. Normal heart size. Stable CABG clips 3. Chronic pulmonary vascular prominence/CHF 4. No demonstrated consolidation or infiltrates 5. No pleural effusion or pneumothorax 6. Stable mediastinum and osseous structures There is no demonstrated abnormality of the visualized soft tissue structures of the upper abdomen. RAD/Chest PA and Lateral IMPRESSION: Chronic CHF Electronically Signed: Kam Hughes MD at 14:35 EDT ,
[2023-06-02 13:49] LABS: Differential Indicated SCAN CRITERIA MET
[2023-06-02 14:03] LABS: Anion Gap 8 (5-15); BUN 29 mg/dL (7-18); Chloride 101 mmol/L (98-107); Creatinine, Serum 4.82 mg/dL (0.55-1.02); EST Glomerular Filtration Rate 9 mL/min (>60); Est Glom Filt Rate - Afr Amer 11 mL/min (>60); Estimated Creatinine Clearance 9.37 ml/min; Glucose 168 mg/dL (74-106); Sodium Level 138 mmol/L (136-145); Troponin-I HS 20 pg/mL (3.0-54.0)
[2023-06-02 14:10] LABS: Anisocytosis 2+
[2023-06-02 14:53] LABS: Lactic Acid 0.6 mmol/L (0.4-1.9)
== END 2023-06-02 16:02 | disposition home or self-care (01) ==
PROVIDERS: Physician Assistant; Emergency Provider Emergency Medicine; PCP Family Medicine; Visit Provider Emergency Medicine
DX: U07.1 COVID-19 (principal); I13.2 Hypertensive heart and chronic kidney disease with heart failure and with stage 5 chronic kidney disease, or end stage renal disease; N18.6 End stage renal disease; I50.30 Unspecified diastolic (congestive) heart failure; J44.9 Chronic obstructive pulmonary disease, unspecified; E11.22 Type 2 diabetes mellitus with diabetic chronic kidney disease; I25.10 Atherosclerotic heart disease of native coronary artery without angina pectoris; Z87.891 Personal history of nicotine dependence; Z99.81 Dependence on supplemental oxygen; Z99.2 Dependence on renal dialysis; G47.33 Obstructive sleep apnea (adult) (pediatric); Z79.899 Other long term (current) drug therapy; G25.81 Restless legs syndrome; Z79.51 Long term (current) use of inhaled steroids; Z79.82 Long term (current) use of aspirin
CPT/HCPCS: 71046; 80048; 83605; 84484; 85025; 87040; 87631; 93005; 99284; J7050; A4216

== ENCOUNTER 2023-06-07 16:11 | Inpatient (IN) | payer MEDICARE, MEDICAID, SELFPAY ==
[2023-06-07] VITALS (14 sets, daily range): BP systolic 162–182; BP diastolic 58–92; PULSE 76–91; RESP 15–20; TEMP 36–37.1; O2SAT 94–100; BMI 31.2
[2023-06-07] MEDS: Albuterol 2.5 MG/3 ML VIAL.NEB. INHALATION ×2 (17:11→22:11)
[2023-06-07] MEDS: Ipratropium/Albuterol Sulfate 3 ML AMPUL.NEB INHALATION (17:11)
--- NOTE | 2023-06-07 17:11 | EDS_ITS ---
HPI <TREVOR Price - Last Filed: 06/07/23 18:32> History of Present Illness Chief Complaint: Abn Labs Narrative Narrative: Patient is a 77-year-old female with history of CAD, hypertension, COPD, kidney failure who uses dialysis Sunday who is currently on baby aspirin presents to the emergency department for low hemoglobin. Per the , the patient is been struggling ever since the patient was placed back on aspirin. Patient does have a history of upper GI bleeding. Today, the patient's hemoglobin was 6, and they were told to the emergency department. Patient states for the last week, she denies any blood in vomit however is unsure the color of her stools. Patient states she has been more fatigued, denies any fever or chills. Patient did get diagnosed with COVID-19 on June 02, 2023. Patient is on 2 L nasal cannula oxygen daily. Patient states she does not feel more short of breath than usual. She does have a cough with no sputum production PFSH <TREVOR Price - Last Filed: 06/07/23 18:32> [facility] Medical History (HFpEF) heart failure with preserved ejection fraction Abdominal pain Accidental fall Acute and chronic respiratory failure with hypoxia Acute bronchospasm Acute on chronic blood loss anemia Acute on chronic respiratory failure with hypoxia Acute renal failure superimposed on stage 3 chronic kidney disease Acute upper gastrointestinal bleeding Anemia Anemia in chronic kidney disease Anxiety Arthritis Atherosclerotic heart disease of [place] coronary artery without angina pectoris CAD (coronary artery disease) Carotid artery stenosis Chronic diastolic heart failure Chronic hyponatremia Chronic respiratory failure with hypoxia CKD (chronic kidney disease), stage III Congestive heart failure COPD (chronic obstructive pulmonary disease) Cough Diabetes mellitus type 2 in obese Dyslipidemia Easy bruising End-stage renal disease on hemodialysis Essential hypertension Gastritis Generalized weakness GI bleed GI bleed History of blood transfusion History of renal dialysis Hypoxia Iron deficiency anemia Leg cramps Leukocytosis Morbid obesity with BMI of 40.0-44.9, adult Non-rheumatic mitral regurgitation Non-rheumatic tricuspid valve insufficiency On home oxygen therapy ELAINE (obstructive sleep apnea) Pleural effusion Pneumonia Pulmonary hypertension Restless leg syndrome Restless legs Rib contusion Secondary pulmonary hypertension Shortness of breath on exertion Smoking greater than 40 pack years Toe fracture, left Toxic metabolic encephalopathy Valvular heart disease Wears dentures Wears glasses Home Medications amitriptyline 100 mg tablet 100 mg PO QHS mental health 04/09/13 [History Last Taken 05/13/22 21:00] atorvastatin 80 mg tablet 80 mg PO DAILY CHOLESTEROL 10/25/17 [History Last Taken 05/13/22 21:30] amlodipine 10 mg tablet 10 mg PO DAILY BP 06/01/18 [History Last Taken 05/14/22 08:30] doxazosin 8 mg tablet 8 mg PO QHS blood pressure 08/20/18 [History Last Taken 05/13/22 21:30] omeprazole 40 mg capsule,delayed release 40 mg PO DAILY gerd 08/20/18 [History Last Taken 05/13/22 21:30] hydralazine 100 mg tablet 100 mg PO TID diuretic 01/01/19 [History Last Taken 05/14/22 14:00] bumetanide 2 mg tablet 2 mg PO DAILY diuretic 03/14/19 [History Last Taken 0 05/14/22 08:30] nitroglycerin 0.4 mg sublingual tablet 0.4 mg sublingual Q5M PRN CHEST PAIN 03/14/19 [History Last Taken Unknown] albuterol sulfate 90 mcg/actuation aerosol inhaler (ProAir HFA) 2 puff inhalation Q6H PRN sob 09/30/20 [History Last Taken 05/13/22 08:30] ropinirole 0.5 mg tablet 1.5 mg PO .COMPLEX restless legs 07/07/21 [History Last Taken 05/13/22 21:30] acetaminophen 500 mg tablet (Acetaminophen Extra Strength) 1,000 mg PO DAILY PRN Pain 05/04/22 [History Last Taken 05/14/22 14:00] ascorbic acid (vitamin C) 500 mg tablet 500 mg PO DAILY SUPPLEMENT 05/04/22 [History Last Taken 05/14/22 08:30] sevelamer carbonate 800 mg tablet 800 mg PO TIDCM PHOSPHATE 05/04/22 [History Last Taken 05/14/22 14:00] isosorbide mononitrate 60 mg tablet,extended release 24 hr 60 mg PO DAILY heart 05/14/22 [History Last Taken 05/13/22 21:30] albuterol sulfate 1.25 mg/3 mL solution for nebulization 1.25 mg (3 mL) inhalation 4X/DAY Wheezing #360 mL 03/20/23 [Rx Last Taken Unknown] budesonide-formoterol HFA 160 mcg-4.5 mcg/actuation aerosol inhaler (Symbicort) 2 inh inhalation BID breathing #3 ea 05/01/23 [Rx Last Taken Unknown] aspirin 81 mg tablet,delayed release (Adult Low Dose Aspirin) 81 mg PO DAILY heart health 05/17/23 [History Last Taken Unknown] carvedilol 12.5 mg tablet 12.5 mg PO BID bp #180 tabs 05/17/23 [Rx Last Taken Unknown] guaifenesin 1,200 mg tablet, extended release 12 hr 1,200 mg PO Q12H PRN congestion 05/17/23 [History Last Taken Unknown] prednisone 10 mg tablet 10 mg PO UD #30 tabs 06/02/23 [Rx Last Taken Unknown] Allergy/AdvReac Type Severity Reaction Status Date / Time Penicillins Allergy Hives Verified 06/07/23 16:12 adhesive tape AdvReac Other Verified 06/07/23 16:12 Family History Mother Heart disease Surgical History H/O four vessel coronary artery bypass graft (~04/16/13) Hx of colonoscopy Hx of esophagogastroduodenoscopy Social History household members: family Smoking Status: Former smoker quit date: 03/05/10 alcohol intake: current alcohol intake frequency: other substance use type: does not use ROS <TREVOR Price - Last Filed: 06/07/23 18:32> ROS ED ROS Narrative Constitutional: Negative for fever, chills, weight loss. Positive for weakness Eyes: Negative for vision loss, vision change, double vision ENT: Negative for any sore throat, ear pain, congestion Cardiovascular: Negative for any chest pain, tightness, palpitations Respiratory: Negative for any sputum production, hemoptysis, dyspnea, dyspnea on exertion, orthopnea. Positive for cough Gastrointestinal: Negative for any abdominal pain, nausea, vomiting, diarrhea, constipation, blood in stool, blood in vomit : Negative for any urinary frequency, dysuria, retention, blood in urine Muscle skeletal: Negative for any neck pain, back pain Neurological: Negative for any headache, syncope, dizziness Skin: Negative for any rashes, itching, abrasions, lacerations Psychiatric: Negative for any depression, anxiety, stress, suicidal ideation, homicidal ideation Hematologic: Negative for any excessive bruising, easy bleeding EXAM <Alex BealTREVOR rodriguez - Last Filed: 06/07/23 18:32> Physical Exam Narrative Exam Narrative: Vital signs reviewed. Patient is in no obvious respiratory distress, patient's vital signs are stable on 2 L nasal cannula. HEET: Head normocephalic atraumatic, TMs clear bilaterally. Posterior pharynx is clear, moist mucous membranes. Nares clear bilaterally. Neck: Supple with no lymphadenopathy or tenderness. No signs of meningismus. Cardiac: Regular rate and rhythm no murmurs gallops or rubs, equal peripheral pulses bilaterally. Respiratory: Rhonchorous breath sounds to bilateral lower lobes, wheezes expiratory to the upper left lobe. No chest tenderness. Abdomen: Soft, nontender, nondistended. No abdominal bruit or pulsatile masses. No hepatosplenomegaly Extremities: No peripheral edema, no signs of gross trauma or deformity. Active full range of motion of all extremities. Patient has multiple discoloration to bilateral arms secondary to bruising. Neuro: Cranial nerves II through XII intact, no focal neurological deficits. Skin: Clean dry and intact with no rash, purpura, petechiae, vesicles or pustules. Backs/flank: No CVA tenderness, no midline spinal tenderness, no deformity. Psych: Normal mood and affect. No SI, HI or acute psychosis. Rectal; rectal exam was completed with female nurse sharon Hernandez, there is no acute or chronic hemorrhoids, is no gross red bleeding or dark tarry stools around the anus. Patient had minimal stool in rectal vault. Const Vital Signs: 06/07/23 16:12 06/07/23 16:29 06/07/23 17:13 Temperature 96.8 F L Temperature Source Temporal Pulse Rate 91 90 Respiratory Rate 18 20 H Respiratory Effort Short of Breath Respiratory Pattern Normal Normal Blood Pressure 175/58 H Blood Pressure Mean 97 Pulse Ox 99 Oxygen Delivery Method Nasal Cannula Oxygen Flow Rate (L/min) 2 06/07/23 17:13 06/07/23 17:15 06/07/23 18:15 Temperature Temperature Source Pulse Rate 91 89 Respiratory Rate 17 15 Respiratory Effort Respiratory Pattern Blood Pressure 182/73 H 166/65 H Blood Pressure Mean 103 94 Pulse Ox 99 99 100 Oxygen Delivery Method Nasal Cannula Oxygen Flow Rate (L/min) 2 Positive well nourished and well developed General Appearance ED: well developed <Dr. Mario Guerrero MD - Last Filed: 06/07/23 21:58> Physical Exam Const Vital Signs: 06/07/23 16:12 06/07/23 16:29 06/07/23 17:13 Temperature 96.8 F L Temperature Source Temporal Pulse Rate 91 90 Respiratory Rate 18 20 H Respiratory Effort Short of Breath Respiratory Pattern Normal Normal Blood Pressure 175/58 H Blood Pressure Mean 97 Pulse Ox 99 Oxygen Delivery Method Nasal Cannula Oxygen Flow Rate (L/min) 2 06/07/23 17:13 06/07/23 17:15 06/07/23 18:15 Temperature Temperature Source Pulse Rate 91 89 Respiratory Rate 17 15 Respiratory Effort Respiratory Pattern Blood Pressure 182/73 H 166/65 H Blood Pressure Mean 103 94 Pulse Ox 99 99 100 Oxygen Delivery Method Nasal Cannula Oxygen Flow Rate (L/min) 2 MDM <TREVOR Price - Last Filed: 06/07/23 18:32> [facility] Lab Data Labs: Laboratory Results - last 24 hr 06/07/23 17:10 WBC 16.3 H RBC 2.23 L Hgb 6.4 L Hct 21.7 L MCV 97.3 MCH 28.7 MCHC 29.5 L RDW Std Deviation 71.7 H RDW Coeff of Becca 20.5 H Plt Count 310 MPV 9.7 Neut % (Auto) Not Reportable Absolute Neuts (auto) 15.2 H Absolute Lymphs (auto) 0.82 L Total Counted 100 Neutrophils % (Manual) 90 H Band Neutrophils % 3 Lymphocytes % (Manual) 5 L Myelocytes % 2 H Diff Path Review May foll Anisocytosis 2+ Sodium 139 Potassium 4.7 Chloride 104 Carbon Dioxide 28.0 Anion Gap 7 BUN 69 H Creatinine 4.43 H Est GFR (MDRD) Af Amer 12 L Est GFR (MDRD) Non-Af 10 L BUN/Creatinine Ratio 15.6 Glucose 252 H Calcium 7.4 L Magnesium 2.3 Blood Type A NEGATIVE Antibody Screen NEGATIVE Crossmatch See Detail Radiography Diagnostic Testing: Clinical Impression(s) from Imaging Studies Chest X-Ray 06/07/23 17:55 IMPRESSION: No definite acute or significant abnormality seen. Electronically Signed: Osmani Rizo MD at 18:08 EDT , Treatment and Re-Evaluation :: Differential diagnosis includes however is not limited to: Upper GI bleed, lower GI bleed, acute on chronic anemia, sequelae of COVID-19 Patient vital signs are stable, patient is not hypoxic, presenting to the emergency department for low hemoglobin. Patient will receive a chest x-ray secondary to the rhonchorous breath sounds, patient will see basic laboratory values including type and screen. Patient did receive a rectal exam, stool occu lt will be sent. Patient's chest x-ray entered by the ER physician shows no definite acute or significant abnormality seen. Patient's CBC shows a leukocytosis with a white blood count of 16.3, hemoglobin was 6.4, this is down from 9.3 at the end of May. Patient's kidney function is consistent with end-stage renal disease with a creatinine of 4.43 as well as a BUN of 69, electrolytes are unremarkable. Patient was typed and screened and will be given 2 units of packed red blood cells. Patient will need to be admitted to the hospital. Patient's stool was positive for blood. Dr. Chan will be aware this patient. I will speak with hospitalist. <Dr. Mario Guerrero MD - Last Filed: 06/07/23 21:58> [facility] Narrative Medical decision making narrative: I have personally performed a face to face assessment of the patient and have reviewed the SANDIE Note. I performed a substantive portion of the visit including all aspects of the following. My lynch findings include: History is cough and shortness of breath for about 2 weeks, tested positive for COVID about 4-5 days ago, and also feeling fatigued and had outpatient labs showing 3 g drop in hemoglobin over the past 5 days. Has not been on any specific prescriptions for her breathing/COVID. Patient does not know what her stools have been showing, but she had a blood transfusion couple weeks ago right after she restarted aspirin at the recommendation of her lime slaker. A year or so ago when she was on aspirin she had some GI bleeding and blood loss from that, and had a scope and had abnormalities on EGD and colonoscopy both. Had been off aspirin since then until couple weeks ago. She denies any symptoms of angina. Exam is wet sounding cough, diffuse mild wheezing and upper airway sounds symmetric bilaterally no respiratory distress. Abdomen soft nontender nondistended. Hemoccult positive per FORMULA WEIGHER rectal exam and specimen that did not appear to be melena. Medical Decison Making consented verbally for blood transfusion. Type and crossed for 2 units. One-view portable chest x-ray my interpretation shows some possible mild patchy infiltrates in the left base, but otherwise unchanged compared with the prior and showing no pulmonary congestion. Discussed with GI and hospitalist. Other additions or changes: [None] Lab Data Labs: Laboratory Results - last 24 hr 06/07/23 17:10 WBC 16.3 H RBC 2.23 L Hgb 6.4 L Hct 21.7 L MCV 97.3 MCH 28.7 MCHC 29.5 L RDW Std Deviation 71.7 H RDW Coeff of Becca 20.5 H Plt Count 310 MPV 9.7 Neut % (Auto) Not Reportable Absolute Neuts (auto) 15.2 H Absolute Lymphs (auto) 0.82 L Total Counted 100 Neutrophils % (Manual) 90 H Band Neutrophils % 3 Lymphocytes % (Manual) 5 L Myelocytes % 2 H Diff Path Review May foll Anisocytosis 2+ Sodium 139 Potassium 4.7 Chloride 104 Carbon Dioxide 28.0 Anion Gap 7 BUN 69 H Creatinine 4.43 H Est GFR (MDRD) Af Amer 12 L Est GFR (MDRD) Non-Af 10 L BUN/Creatinine Ratio 15.6 Glucose 252 H Calcium 7.4 L Magnesium 2.3 Blood Type A NEGATIVE Antibody Screen NEGATIVE Crossmatch See Detail Radiography Diagnostic Testing: Clinical Impression(s) from Imaging Studies Chest X-Ray 06/07/23 17:55 IMPRESSION: No definite acute or significant abnormality seen. Electronically Signed: Osmani Rizo MD at 18:08 EDT , Management Discussion w/another healthcare provider: Hospitalist and Emergency Veterinarian (GI friend, aware of consultation and agrees to discontinue aspirin) <Dr. Mario Guerrero MD - Last Filed: 06/07/23 21:58> Critical Care Time Critical Care Time: Yes Critical care time (excluding procedures): 30-74 minutes (32 min), Including time spent:, Discussing w/Patient &/or Family/Office Clerk, Discussing w/Consultants, Arranging Admission or Transfer and Performing Direct Patient Care at Bedside Discharge Plan Dx/Rx/DC Orders Clinical Impression: ABLA (acute blood loss anemia), Occult gastrointestinal hemorrhage, COVID-19, COPD with acute exacerbation Disposition Disposition: Acute Care Hospital [facility] Discharge Date/Time: 06/07/23 19:52
[2023-06-07 17:22] LABS: Hematocrit 21.7 % (37-47); Hemoglobin 6.4 g/dL (12.0-15.0); Mean Corp Hgb Conc 29.5 g/dL (32-36); Mean Corpuscular Hgb 28.7 pg (27.0-32.0); Mean Corpuscular Volume 97.3 fL (81-99); Mean Platelet Vol. 9.7 fl (6.2-12.0); POSITIVE COUNT YES; POSITIVE DIFFERENTIAL YES; POSITIVE MORPHOLOGY YES; Platelet Count 310 K/mm3 (150-450); RBC Distribution Width CV 20.5 % (11.6-14.6); RBC Distribution Width SD 71.7 fl (35.1-43.9); Red Blood Count 2.23 M/mm3 (4.2-5.4); White Blood Count 16.3 K/mm3 (4.4-11.0)
[2023-06-07 17:28] LABS: Differential Indicated MANUAL DIFF
[2023-06-07 17:34] LABS: Anion Gap 7 (5-15); BUN 69 mg/dL (7-18); BUN/Creat Ratio 15.6 RATIO (10-20); Calcium,Total 7.4 mg/dL (8.5-10.1); Chloride 104 mmol/L (98-107); Creatinine, Serum 4.43 mg/dL (0.55-1.02); EST Glomerular Filtration Rate 10 mL/min (>60); Est Glom Filt Rate - Afr Amer 12 mL/min (>60); Glucose 252 mg/dL (74-106); Potassium 4.7 mmol/L (3.5-5.1); Sodium Level 139 mmol/L (136-145)
[2023-06-07 17:52] LABS: Lymphocyte 5 % (19-41); Myelocyte 2 % (0-0); Neutrophil-Band 3 % (0-5); Neutrophil-Segmented 90 % (47-70); Total Cells Counted 100 (MANUAL DIFF)
[2023-06-07 17:53] LABS: Absolute Lymphocyte Count 0.82 X10^3/uL (0.83-4.51); Absolute Neutrophil Count 15.2 X10^3/uL (2.0-7.7)
[2023-06-07 17:54] LABS: Anisocytosis 2+
--- NOTE | 2023-06-07 17:55 | RAD_ITS ---
STUDY: X-RAY CHEST REASON FOR EXAM: Female, 77 years old. cough TECHNIQUE: Single AP portable view of the chest. COMPARISON: 06/02/2023 FINDINGS: Stable right IJ dialysis catheter terminating in the lower SVC. The lungs are clear and expanded. Elevated right hemidiaphragm. There is no demonstrated pleural abnormality. Normal size heart. Previous CABG. Normal mediastinum and james. Normal visualized pulmonary arteries. There is atherosclerotic calcification of the aortic arch with tortuosity. Normal visualized thoracic spine. Normal visualized ribs, clavicles, and shoulders. There is no demonstrated abnormality of the visualized soft tissue structures of the upper abdomen. RAD/Chest 1 View (Portable) IMPRESSION: No definite acute or significant abnormality seen. Electronically Signed: Osmani Rizo MD at 18:08 EDT ,
--- NOTE | 2023-06-07 18:37 | HP.PCM.HOS_ITS ---
HPI - General HPI Narrative JULISSA VEGA, is a 77 F who presents [facility] Medical History (HFpEF) heart failure with preserved ejection fraction Abdominal pain Accidental fall Acute and chronic respiratory failure with hypoxia Acute bronchospasm Acute on chronic blood loss anemia Acute on chronic respiratory failure with hypoxia Acute renal failure superimposed on stage 3 chronic kidney disease Acute upper gastrointestinal bleeding Anemia Anemia in chronic kidney disease Anxiety Arthritis Atherosclerotic heart disease of [place] coronary artery without angina pectoris CAD (coronary artery disease) Carotid artery stenosis Chronic diastolic heart failure Chronic hyponatremia Chronic respiratory failure with hypoxia CKD (chronic kidney disease), stage III Congestive heart failure COPD (chronic obstructive pulmonary disease) Cough Diabetes mellitus type 2 in obese Dyslipidemia Easy bruising End-stage renal disease on hemodialysis Essential hypertension Gastritis Generalized weakness GI bleed GI bleed History of blood transfusion History of renal dialysis Hypoxia Iron deficiency anemia Leg cramps Leukocytosis Morbid obesity with BMI of 40.0-44.9, adult Non-rheumatic mitral regurgitation Non-rheumatic tricuspid valve insufficiency On home oxygen therapy ELAINE (obstructive sleep apnea) Pleural effusion Pneumonia Pulmonary hypertension Restless leg syndrome Restless legs Rib contusion Secondary pulmonary hypertension Shortness of breath on exertion Smoking greater than 40 pack years Toe fracture, left Toxic metabolic encephalopathy Valvular heart disease Wears dentures Wears glasses Home Medications amitriptyline 100 mg tablet 100 mg PO QHS mental health 04/09/13 [History Last Taken 05/13/22 21:00] atorvastatin 80 mg tablet 80 mg PO DAILY CHOLESTEROL 10/25/17 [History Last Taken 05/13/22 21:30] amlodipine 10 mg tablet 10 mg PO DAILY BP 06/01/18 [History Last Taken 05/14/22 08:30] doxazosin 8 mg tablet 8 mg PO QHS blood pressure 08/20/18 [History Last Taken 21:30] omeprazole 40 mg capsule,delayed release 40 mg PO DAILY gerd 08/20/18 [History Last Taken 05/13/22 21:30] hydralazine 100 mg tablet 100 mg PO TID diuretic 01/01/19 [History Last Taken 14:00] bumetanide 2 mg tablet 2 mg PO DAILY diuretic 03/14/19 [History Last Taken 05/14/22 08:30] nitroglycerin 0.4 mg sublingual tablet 0.4 mg sublingual Q5M PRN CHEST PAIN 03/14/19 [History Last Taken Unknown] albuterol sulfate 90 mcg/actuation aerosol inhaler (ProAir HFA) 2 puff inhalation Q6H PRN sob 09/30/20 [History Last Taken 05/13/22 08:30] ropinirole 0.5 mg tablet 1.5 mg PO .COMPLEX restless legs 07/07/21 [History Last Taken 05/13/22 21:30] acetaminophen 500 mg tablet (Acetaminophen Extra Strength) 1,000 mg PO DAILY PRN Pain 05/04/22 [History Last Taken 05/14/22 14:00] ascorbic acid (vitamin C) 500 mg tablet 500 mg PO DAILY SUPPLEMENT 05/04/22 [History Last Taken 05/14/22 08:30] sevelamer carbonate 800 mg tablet 800 mg PO TIDCM PHOSPHATE 05/04/22 [History Last Taken 05/14/22 14:00] isosorbide mononitrate 60 mg tablet,extended release 24 hr 60 mg PO DAILY heart 05/14/22 [History Last Taken 05/13/22 21:30] albuterol sulfate 1.25 mg/3 mL solution for nebulization 1.25 mg (3 mL) inhalation 4X/DAY Wheezing #360 mL 03/20/23 [Rx Last Taken Unknown] budesonide-formoterol HFA 160 mcg-4.5 mcg/actuation aerosol inhaler (Symbicort) 2 inh inhalation BID breathing #3 ea 05/01/23 [Rx Last Taken Unknown] aspirin 81 mg tablet,delayed release (Adult Low Dose Aspirin) 81 mg PO DAILY heart health 05/17/23 [History Last Taken Unknown] carvedilol 12.5 mg tablet 12.5 mg PO BID bp #180 tabs 05/17/23 [Rx Last Taken Unknown] guaifenesin 1,200 mg tablet, extended release 12 hr 1,200 mg PO Q12H PRN congestion 05/17/23 [History Last Taken Unknown] doxycycline monohydrate 100 mg capsule 100 mg PO BID infection #14 CAPSULES 05/20/23 [Rx Last Taken Unknown] prednisone 20 mg tablet 40 mg (2 x 20 mg) PO BREAKFAST #10 tabs 05/24/23 [Rx Last Taken Unknown] prednisone 10 mg tablet 10 mg PO UD #30 tabs 06/02/23 [Rx Last Taken Unknown] Allergy/AdvReac Type Severity Reaction Status Date / Time Penicillins Allergy Hives Verified 06/07/23 16:12 adhesive tape AdvReac Other Verified 06/07/23 16:12 Family History Mother Heart disease Surgical History H/O four vessel coronary artery bypass graft (~04/16/13) Hx of colonoscopy Hx of esophagogastroduodenoscopy Social History household members: family Smoking Status: Former smoker quit date: 03/05/10 alcohol intake: current alcohol intake frequency: other substance use type: does not use Vital Signs Vital Signs Vital Signs: 06/07/23 16:12 06/07/23 16:29 06/07/23 17:13 Temperature 96.8 F L Temperature Source Temporal Pulse Rate 91 90 Respiratory Rate 18 20 H Respiratory Effort Short of Breath Respiratory Pattern Normal Normal Blood Pressure 175/58 H Blood Pressure Mean 97 Pulse Ox 99 Oxygen Delivery Method Nasal Cannula Oxygen Flow Rate (L/min) 2 06/07/23 17:13 06/07/23 17:15 06/07/23 18:15 Temperature Temperature Source Pulse Rate 91 89 Respiratory Rate 17 15 Respiratory Effort Respiratory Pattern Blood Pressure 182/73 H 166/65 H Blood Pressure Mean 103 94 Pulse Ox 99 99 100 Oxygen Delivery Method Nasal Cannula Oxygen Flow Rate (L/min) 2 Results Lab / Micro Data 06/07/23 17:10 06/07/23 17:10 Labs: Laboratory Results - last 24 hr 06/07/23 17:10: WBC 16.3 H, RBC 2.23 L, Hgb 6.4 L, Hct 21.7 L, MCV 97.3, MCH 28.7, MCHC 29.5 L, RDW Std Deviation 71.7 H, RDW Coeff of Becca 20.5 H, Plt Count 310, MPV 9.7, Neut % (Auto) Not Reportable, Absolute Neuts (auto) 15.2 H, Absolute Lymphs (auto) 0.82 L, Total Counted 100, Neutrophils % (Manual) 90 H, Band Neutrophils % 3, Lymphocytes % (Manual) 5 L, Myelocytes % 2 H, Diff Path Review July, Anisocytosis 2+, Sodium 139, Potassium 4.7, Chloride 104, Carbon Dioxide 28.0, Anion Gap 7, BUN 69 H, Creatinine 4.43 H, Est GFR (MDRD) Af Amer 12 L, Est GFR (MDRD) Non-Af 10 L, BUN/Creatinine Ratio 15.6, Glucose 252 H, Calcium 7.4 L, Blood Type A NEGATIVE, Antibody Screen NEGATIVE, Crossmatch See Detail Micro: Microbiology 06/07/23 17:10 Stool Stool Occult Blood (SANJUANA) - Final Occult Blood Positive Imaging Radiology Impression Chest X-Ray 06/07/23 17:55 IMPRESSION: No definite acute or significant abnormality seen. Electronically Signed: Osmani Rizo MD at 18:08 EDT , Assessment & Plan Assessment/Plan PLAN: Plan COPD: Chest x-ray showed no acute cardiopulmonary process. BP trend has bronchodilators. On steroids and doxycycline. #History of CAD s/p CABG: * On hydralazine and doxazosin as well as Coreg. Stress test had been ordered on outpatient basis by PCP and this came back negative for any evidence of ischemia. * 2D echo done today showed EF of 60% with stage II diastolic dysfunction and normal left ventricular size with mild aortic stenosis. * Pulmonary artery systolic pressure was 55 mmHg indicating moderate pulmonary hypertension. * On aspirin and statin #Chronic heart failure preserved ejection fraction: On Bumex and Coreg. Not in exacerbation. #Hypertension: On Coreg, Bumex and amlodipine as well as hydralazine and doxazosin #ESRD on hemodialysis: On hemodialysis Wednesdays. Nephrology consulted. #Carotid stenosis * Carotid ultrasound had been ordered on outpatient basis. Carotid ultrasound done showed bilateral carotid stenosis. Will consult vascular surgery. #ELAINE: On CPAP which she is noncompliant with. On oxygen nightly. #Chronic respiratory failure due to COPD: On 2 L of oxygen chronically. Breathing treatments bronchodilators. DVT prophylaxis: SCDs
[2023-06-07 18:52] LABS: Magnesium 2.3 mg/dL (1.6-2.6)
[2023-06-07 19:06] LABS: International Normalized Ratio 1.2; Prothrombin Time (Protime)PT. 14.8 SECONDS (11.7-14.9)
--- NOTE | 2023-06-07 19:20 | ED.RN ---
per Dr. Erickson, pt can come out of COVID precautions d/t date of symptoms.
--- NOTE | 2023-06-07 19:56 | HP.PCM.HOS_ITS ---
HPI - General General Date of Admission: 06/07/23 Date of Service: 06/07/23 Chief Complaint: Dyspnea, low Hgb HPI Narrative The patient is a 77 y/o F w/ PMHx: RLS, Obesity, HFpEF, Chronic anemia/AOCD/Fe deficiency anemia, GERD w/ Hx GI bleed, Anxiety and Depression, CAD s/p CABG x 4, COPD w/ Chronic Hypoxic Respiratory Failure (2L NC), Diabetes mellitus type II, ESRD on HD, Former tobacco use who presents to the [facility] ED on 06/07/23 with his tory of increased fatigue, malaise with dyspnea worse with exertion, decreased energy with history of previous GI bleed, upper GI bleed specifically recently placed back on aspirin therapy with issues ongoing since then with outpatient hemoglobin assessments noted to be 6 prompting referral to the ED for evaluation. Patient is unsure of her stool colors. She was recently diagnosed with a positive test for COVID on 06/02/2023 however she had symptoms for at least a week prior to this and has since had improvement of the upper respiratory type symptoms but ongoing dyspnea worsening with her worsening anemia as noted. In the ED patient initiated on 2 unit PRBC. Patient's guaiac noted to be positive in the ED therefore ED discussed case with gastroenterology Dr. Chan who noted intention for further evaluation. Workup in the ED included T96.8, heart rate 91, BP 175/58, respiratory rate 18, 99% on 2 L nasal cannula, CBC with WBC 16.3, hemoglobin 6.4, MCV 97.3, platelet 310 with left sh ift and lymphopenia, coags not marked appearing, BMP with BUN/creatinine 69/4.43, glucose 252, calcium 7.4, type and cross for 2 unit initiated per ED physician as noted, chest x-ray with no acute cardiopulmonary findings, stool guaiac positive. In the ED patient administered albuterol therapy, DuoNeb therapy. [facility] Medical History (Updated 06/07/23 @ 22:[address] Jennifer Erickson MD) (HFpEF) heart failure with preserved ejection fraction Anemia Anemia in chronic kidney disease Anxiety Arthritis CAD (coronary artery disease) Carotid artery stenosis Chronic hyponatremia Chronic respiratory failure with hypoxia COPD (chronic obstructive pulmonary disease) Diabetes mellitus type 2 in obese Dyslipidemia ESRD on dialysis Essential hypertension History of blood transfusion History of renal dialysis History of upper gastrointestinal bleeding Iron deficiency anemia Leg cramps Leukocytosis Morbid obesity with BMI of 40.0-44.9, adult Non-rheumatic mitral regurgitation Non-rheumatic tricuspid valve insufficiency On home oxygen therapy ELAINE (obstructive sleep apnea) Pleural effusion Pulmonary hypertension Restless leg syndrome Secondary pulmonary hypertension Shortness of breath on exertion Smoking greater than 40 pack years Valvular heart disease Wears dentures Wears glasses Home Medications amitriptyline 100 mg tablet 100 mg PO QHS mental health 04/09/13 [History Last Taken 05/13/22 21:00] atorvastatin 80 mg tablet 80 mg PO DAILY CHOLESTEROL 10/25/17 [History Last Taken 05/13/22 21:30] amlodipine 10 mg tablet 10 mg PO DAILY BP 06/01/18 [History Last Taken 05/14/22 08:30] doxazosin 8 mg tablet 8 mg PO QHS blood pressure 08/20/18 [History Last Taken 05/13/22 21:30] omeprazole 40 mg capsule,delayed release 40 mg PO DAILY gerd 08/20/18 [History Last Taken 05/13/22 21:30] hydralazine 100 mg tablet 100 mg PO TID diuretic 01/01/19 [History Last Taken 05/14/22 14:00] bumetanide 2 mg tablet 2 mg PO DAILY diuretic 03/14/19 [History Last Taken 05/14/22 08:30] nitroglycerin 0.4 mg sublingual tablet 0.4 mg sublingual Q5M PRN CHEST PAIN 03/14/19 [History Last Taken Unknown] albuterol sulfate 90 mcg/actuation aerosol inhaler (ProAir HFA) 2 puff inhalation Q6H PRN sob 09/30/20 [History Last Taken 05/13/22 08:30] ropinirole 0.5 mg tablet 1.5 mg PO .COMPLEX restless legs 07/07/21 [History Last Taken 05/13/22 21:30] acetaminophen 500 mg tablet (Acetaminophen Extra Strength) 1,000 mg PO DAILY PRN Pain 05/04/22 [History Last Taken 05/14/22 14:00] ascorbic acid (vitamin C) 500 mg tablet 500 mg PO DAILY SUPPLEMENT 05/04/22 [History Last Taken 05/14/22 08:30] sevelamer carbonate 800 mg tablet 800 mg PO TIDCM PHOSPHATE 05/04/22 [History Last Taken 05/14/22 14:00] isosorbide mononitrate 60 mg tablet,extended release 24 hr 60 mg PO DAILY heart 05/14/22 [History Last Taken 05/13/22 21:30] albuterol sulfate 1.25 mg/3 mL solution for nebulization 1.25 mg (3 mL) inhalation 4X/DAY Wheezing #360 mL 03/20/23 [Rx Last Taken Unknown] budesonide-formoterol HFA 160 mcg-4.5 mcg/actuation aerosol inhaler (Symbicort) 2 inh inhalation BID breathing #3 ea 05/01/23 [Rx Last Taken Unknown] aspirin 81 mg tablet,delayed release (Adult Low Dose Aspirin) 81 mg PO DAILY heart health 05/17/23 [History Last Taken Unknown] carvedilol 12.5 mg tablet 12.5 mg PO BID bp #180 tabs 05/17/23 [Rx Last Taken Unknown] guaifenesin 1,200 mg tablet, extended release 12 hr 1,200 mg PO Q12H PRN congestion 05/17/23 [History Last Taken Unknown] prednisone 10 mg tablet 10 mg PO UD #30 tabs 06/02/23 [Rx Last Taken Unknown] Allergy/AdvReac Type Severity Reaction Status Date / Time Penicillins Allergy Hives Verified 06/07/23 16:12 adhesive tape AdvReac Other Verified 06/07/23 16:12 Family History Mother Heart disease Father No problems noted. Surgical History H/O four vessel coronary artery bypass graft (~04/16/13) Hx of colonoscopy Hx of esophagogastroduodenoscopy Social History household members: family Smoking Status: Former smoker quit date: 03/05/10 how long ago did patient quit smoking: Quit ~ 13 yrs prior, smoked 3 ppd since in her 20s until quit. alcohol intake: current alcohol intake frequency: holidays/special occasions only substance use type: does not use ROS ROS Narrative Admission Review of Systems: CONSTITUTIONAL: No weight loss, fever, chills, + weakness or fatigue. HEENT: + Improved congestion/rhinorrhea. Eyes: No visual loss, blurred vision, double vision or yellow sclerae. Ears, Nose, Throat: No hearing loss, sneezing, sore throat. SKIN: No rash or itching, lesions, wounds except + occasional very staged ecchymoses, stasis disease. CARDIOVASCULAR: + Chronic issues with edema. No chest pain, chest pressure or chest discomfort, palpitations, orthopnea, syncopal events. RESPIRATORY: + Dyspnea, worse with activity, occasional cough not markedly productive. No wheezing, hemoptysis. GASTROINTESTINAL: No anorexia, nausea, vomiting or diarrhea, abdominal pain, melena, BRBPR. GENITOURINARY: No dysuria, frequency, urgency or retention. NEUROLOGICAL: No headache, dizziness, syncope, paralysis, ataxia, numbness or tingling in the extremities, focal weakness, change in bowel or bladder control, seizure. MUSCULOSKELETAL: + muscle, back pain, joint pain or stiffness. HEMATOLOGIC: + Chronic anemia, easy bleeding/bruising. LYMPHATICS: No enlarged nodes. No history of splenectomy. PSYCHIATRIC: + History of anxiety and depression. ENDOCRINOLOGIC: No reports of sweating, cold or heat intolerance. No polyuria or polydipsia. ALLERGIES: + History of hives. Vital Signs Vital Signs Vital Signs: 06/07/23 16:12 06/07/23 16:29 06/07/23 17:13 Temperature 96.8 F L Temperature Source Temporal Pulse Rate 91 90 Respiratory Rate 18 20 H Respiratory Effort Short of Breath Respiratory Pattern Normal Normal Blood Pressure 175/58 H Blood Pressure Mean 97 Blood Pressure Source Blood Pressure Position Blood Pressure Location Pulse Ox 99 Oxygen Delivery Method Nasal Cannula Oxygen Flow Rate (L/min) 2 06/07/23 17:13 06/07/23 17:15 06/07/23 18:15 Temperature Temperature Source Pulse Rate 91 89 Respiratory Rate 17 15 Respiratory Effort Respiratory Pattern Blood Pressure 182/73 H 166/65 H Blood Pressure Mean 103 94 Blood Pressure Source Blood Pressure Position Blood Pressure Location Pulse Ox 99 99 100 Oxygen Delivery Method Nasal Cannula Oxygen Flow Rate (L/min) 2 06/07/23 19:11 06/07/23 19:26 06/07/23 19:51 Temperature 98.7 F 97.9 F 97.9 F Temperature Source Temporal Temporal Pulse Rate 91 89 89 Respiratory Rate 17 17 17 Respiratory Effort Respiratory Pattern Blood Pressure 169/82 H 162/92 H 162/92 H Blood Pressure Mean 111 115 115 Blood Pressure Source Monitor Monitor Blood Pressure Position Semi-Fowlers Semi-Fowlers Blood Pressure Location Right Arm Right Arm Pulse Ox 100 99 99 Oxygen Delivery Method Nasal Cannula Nasal Cannula Oxygen Flow Rate (L/min) 2 2 Physical Exam Narrative Physical Examination: General: Awake, alert, oriented x 3 and cooperative, seated upright in the ED bed, fatigued, flat affect. Skin: Normal color, normal turgor, no icterus, no cyanosis except occasional staged ecchymoses, bilateral extremity venous stasis skin change. HEENT: AT/NC, EOMI, PERRLA, mildly dry MM, no carotid bruits or JVD noted. Lungs: Diminished, greater bases, very soft occasional end expiratory wheeze but not marked, no evidence of any distress, no rales, ronchi or wheezing. Heart: Regular rate and rhythm; no gallop, rub audible. Abdomen: Soft, obese, NTTP, no marked distention, unable to discern any HSM, mildly hyperactive BS. Extremities: No cyanosis, no clubbing, mild venous stasis skin changes as noted, mild ankle not markedly pitting edema. Neurological: Patient awake, alert, oriented as noted, cognitive function intact; pupils equally reactive to light and accommodation, cranial nerves grossly normal, moving all 4 extremities, no focal deficits, strength moderately to severely global decreased secondary to acute presentation complaints Psychiatric: Affect appears flat, fatigued, no acute evidence of depressive or anxiety feelings but does have underlying history. Results Lab / Micro Data 06/07/23 17:10 06/07/23 17:10 Labs: Laboratory Results - last 24 hr 06/07/23 17:10: WBC 16.3 H, RBC 2.23 L, Hgb 6.4 L, Hct 21.7 L, MCV 97.3, MCH 28.7, MCHC 29.5 L, RDW Std Deviation 71.7 H, RDW Coeff of Becca 20.5 H, Plt Count 310, MPV 9.7, Neut % (Auto) Not Reportable, Absolute Neuts (auto) 15.2 H, Absolute Lymphs (auto) 0.82 L, Total Counted 100, Neutrophils % (Manual) 90 H, Band Neutrophils % 3, Lymphocytes % (Manual) 5 L, Myelocytes % 2 H, Diff Path Review May foll, Anisocytosis 2+, Sodium 139, Potassium 4.7, Chloride 104, Carbon Dioxide 28.0, Anion Gap 7, BUN 69 H, Creatinine 4.43 H, Est GFR (MDRD) Af Amer 12 L, Est GFR (MDRD) Non-Af 10 L, BUN/Creatinine Ratio 15.6, Glucose 252 H, Calcium 7.4 L, Magnesium 2.3, Blood Type A NEGATIVE, Antibody Screen NEGATIVE, Crossmatch See Detail 06/07/23 18:40: PT 14.8, INR 1.2 Micro: Microbiology 06/07/23 17:10 Stool Stool Occult Blood (SANJUANA) - Final Occult Blood Positive Imaging Radiology Impression Chest X-Ray 06/07/23 17:55 IMPRESSION: No definite acute or significant abnormality seen. Electronically Signed: Osmani Rizo MD at 18:08 EDT , Assessment & Plan Assessment/Plan (1) ABLA (acute blood loss anemia): (2) Occult gastrointestinal hemorrhage: PLAN: Plan The patient is a 77 y/o F w/ PMHx: RLS, Obesity, HFpEF, Chronic anemia/AOCD/Fe deficiency anemia, GERD w/ Hx GI bleed, Anxiety and Depression, CAD s/p CABG x 4, COPD w/ Chronic Hypoxic Respiratory Failure (2L NC), Diabetes mellitus type II, ESRD on HD, Former tobacco use who presents to the [facility] ED on 06/07/23 with history of increased fatigue, malaise with dyspnea worse with exertion, decreased energy with history of previous GI bleed, upper GI bleed specifically recently placed back on aspirin therapy with issues ongoing since then with outpatient hemoglobin assessments noted to be 6 prompting referral to the ED for evaluation. #1. Acute GI Bleed w/ resultant Acute Blood Loss Anemia on Chronic a nemia/AOCD/Fe Deficiency anemia: Admission Hgb 6.4, will admit to PCU, continue ED initiated PRBC administration, obtain serial H+Hs, maintain on IV PPI, maintain on octreotide, given possible cirrhotic history to be cautious will maintain on prophylaxis w/ rocephin. GI consulted, evaluation pending. #2. Recent Acute Viral Syndrome, COVID-19, Resolved, No longer in isolation: Likely in part contributing as well as recent steroid usage, no longer on precautions, will maintain on oxygen with wean as tolerated to room air, PRN albuterol, ATC budesonide therapy, HOB, IS parameters. #3. CAD: s/p CABG x 4, continue patient home Coreg, statin therapy, holding aspirin given acute presentation as noted, not on NICOLAS inhibitor/ARB. #4. HFpEF: Continue home Coreg, statin, Bumex, not on NICOLAS or/ARB, holding aspirin therapy given acute presentation as noted. Will judiciously hydrate given history and run blood slow. 05/22/2023 echocardiogram with normal LV size, LV systolic function normal, EF 60%, stage II diastolic dysfunction, mean AV gradient 60 mmHg, mild aortic stenosis, moderate MV insufficiency, PASP 55 mmHg consistent with moderate pulmonary hypertension. #5. Hypertension: Continue home regimen including isosorbide, hydralazine, doxazosin, Coreg, amlodipine, Bumex, PRN hydralazine. #6. Hyperlipidemia: We will continue patient on statin therapy. #7. ESRD: On HD MWF, will consult Nephrology to continue ongoing routine dialysis regimen, continue patient home sevelamer regimen. #8. Chronic COPD with chronic hypoxic respiratory failure w/ recent history of exacerbation: Will maintain on home oxygen supplementation, will hold home inhalers in the interim maintain on ATC budesonide therapies, PRN albuterol, HOB, IS parameters. Given current presentation we will hold further steroid regimen as has been weaned down notably and in the setting of acute GI bleed. #9. Anxiety and Depression: We will continue patient home Elavil home regimen. #10. Diabetes mellitus type II: Hold oral home regimen, will allow currently clears with transition to n.p.o. status at midnight, will maintain in interim on every 6 hours accu checks w/ ISS. #11. RLS: We will continue patient home Mirapex regimen. #12. Former tobacco use: Encourage continued tobacco cessation. #13. Obesity: Weight loss and lifestyle changes encouraged. #14. CODE status: Patient ELY is her daughters and son-in-law and living will is in place. Discussed CODE status at length including difference between FULL code, DNR-CCA and DNR-CC status. Following discussions about the differences in these status, requested DNR-CCA, no intubation status. Advanced Care Planning Face to Face Time: 16 minutes. Charges/Coding Visit Charges Inpatient E&M: 79651 Init Hosp L3 Procedures Hospitalists Procedures: 66837 Advncd Care Plan 30 Min
[2023-06-07] MEDS: 0.9% Normal Saline (1000mL) 1,000 ML 75 ML IV (21:25)
[2023-06-07] MEDS: Ceftriaxone 1 GM/50 ML BAG IV (21:36)
[2023-06-07] MEDS: Budesonide Respules 0.5 MG/2 ML AMPUL.NEB. INHALATION (22:11)
[2023-06-07] MEDS: Pantoprazole Sodium 40 MG in 0.9% Normal Saline (100mL MB+) 100 ML 330 MG IV (22:27)
[2023-06-07] MEDS: Doxazosin 4 MG Tablet 8 MG PO (22:29)
[2023-06-07] MEDS: hydrALAZINE 50 MG Tablet 100 MG PO (22:29)
[2023-06-07] MEDS: Carvedilol 12.5 MG Tablet PO (22:30)
[2023-06-07] MEDS: Pramipexole Di-HCl 0.25 MG Tablet 0.75 MG PO (22:30)
[2023-06-07] MEDS: Amitriptyline 100 MG Tablet PO (22:30)
[2023-06-07] MEDS: Octreotide 0.5 MG in Dextrose 5%-Water (250mL Bag) 249 ML 25 MG CONT INF (22:31)
--- NOTE | 2023-06-07 23:48 | EX.PCM.CON.G ---
HPI Consult Data Date of Consult: 06/07/23 HPI Narrative HPI Narrative: JULISSA VEGA, is a 77 F who presents [facility] Medical History (Updated 06/08/23 @ 11:[address] Deena Vera MD) (HFpEF) heart failure with preserved ejection fraction Anemia Anemia in chronic kidney disease Anxiety Arthritis CAD (coronary artery disease) Carotid artery stenosis Chronic hyponatremia Chronic respiratory failure with hypoxia COPD (chronic obstructive pulmonary disease) Diabetes mellitus type 2 in obese Dyslipidemia ESRD on dialysis Essential hypertension History of blood transfusion History of renal dialysis History of upper gastrointestinal bleeding Iron deficiency anemia Leg cramps Leukocytosis Morbid obesity with BMI of 40.0-44.9, adult Non-rheumatic mitral regurgitation Non-rheumatic tricuspid valve insufficiency On home oxygen therapy LEAINE (obstructive sleep apnea) Pleural effusion Pulmonary hypertension Restless leg syndrome Secondary pulmonary hypertension Shortness of breath on exertion Smoking greater than 40 pack years Valvular heart disease Wears dentures Wears glasses Home Medications amitriptyline 100 mg tablet 100 mg PO QHS mental health 04/09/13 [History Last Taken 05/13/22 21:00] atorvastatin 80 mg tablet 80 mg PO DAILY CHOLESTEROL 10/25/17 [History Last Taken 05/13/22 21:30] amlodipine 10 mg tablet 10 mg PO DAILY BP 06/01/18 [History Last Taken 05/14/22 08:30] doxazosin 8 mg tablet 8 mg PO QHS blood pressure 08/20/18 [History Last Taken 05/13/22 21:30] omeprazole 40 mg capsule,delayed release 40 mg PO DAILY gerd 08/20/18 [History Last Taken 05/13/22 21:30] hydralazine 100 mg tablet 100 mg PO TID diuretic 01/01/19 [History Last Taken 05/14/22 14:00] bumetanide 2 mg tablet 2 mg PO DAILY diuretic 03/14/19 [History Last Taken 05/14/22 08:30] nitroglycerin 0.4 mg sublingual tablet 0.4 mg sublingual Q5M PRN CHEST PAIN 03/14/19 [History Last Taken Unknown] albuterol sulfate 90 mcg/actuation aerosol inhaler (ProAir HFA) 2 puff inhalation Q6H PRN sob 09/30/20 [History Last Taken 05/13/22 08:30] ropinirole 0.5 mg tablet 1.5 mg PO .COMPLEX restless legs 07/07/21 [History Last Taken 05/13/22 21:30] acetaminophen 500 mg tablet (Acetaminophen Extra Strength) 1,000 mg PO DAILY PRN Pain 05/04/22 [History Last Taken 05/14/22 14:00] ascorbic acid (vitamin C) 500 mg tablet 500 mg PO DAILY SUPPLEMENT 05/04/22 [History Last Taken 05/14/22 08:30] sevelamer carbonate 800 mg tablet 800 mg PO TIDCM PHOSPHATE 05/04/22 [History Last Taken 05/14/22 14:00] isosorbide mononitrate 60 mg tablet,extended release 24 hr 60 mg PO DAILY heart 05/14/22 [History Last Taken 05/13/22 21:30] albuterol sulfate 1.25 mg/3 mL solution for nebulization 1.25 mg (3 mL) inhalation 4X/DAY Wheezing #360 mL 03/20/23 [Rx Last Taken Unknown] budesonide-formoterol HFA 160 mcg-4.5 mcg/actuation aerosol inhaler (Symbicort) 2 inh inhalation BID breathing #3 ea 05/01/23 [Rx Last Taken Unknown] carvedilol 12.5 mg tablet 12.5 mg PO BID bp #180 tabs 05/17/23 [Rx Last Taken Unknown] guaifenesin 1,200 mg tablet, extended release 12 hr 1,200 mg PO Q12H PRN congestion 05/17/23 [History Last Taken Unknown] prednisone 10 mg tablet 10 mg PO UD #30 tabs 06/02/23 [Rx Last Taken Unknown] Allergy/AdvReac Type Severity Reaction Status Date / Time Penicillins Allergy Hives Verified 06/07/23 16:12 adhesive tape AdvReac Other Verified 06/07/23 16:12 Family History Mother Heart disease Father No problems noted. Surgical History H/O four vessel coronary artery bypass graft (~04/16/13) Hx of colonoscopy Hx of esophagogastroduodenoscopy Social History household members: family Smoking Status: Former smoker quit date: 03/05/10 how long ago did patient quit smoking: Quit ~ 13 yrs prior, smoked 3 ppd since in her 20s until quit. alcohol intake: current alcohol intake frequency: holidays/special occasions only substance use type: does not use ROS Constitutional Constitutional: Reports fatigue, lethargy, malaise and poor appetite Eyes Eyes: Denies systems reviewed and no addt'l complaints, except as documented, as per HPI, none, acute decrease in peripheral vision, blindness, blind spots, bloody eye, blurry vision, burning, change in eye color, change in vision, decreased night vision, diplopia, discharge from eye(s), discongugate gaze, double vision, dry eyes, erythema, excessive blinking, exophthalmos, eye pain, floaters, foreign body, halo effect, irritation, itchy eyes, loss of central vision, loss of peripheral vision, loss of vision, miosis, mydriasis, numbness, nystagmus, other visual disturbances, periorbital itching, photophobia, ptosis, puffy eyes, requires corrective lenses, seeing flashes, spots in vision, sunken eyes, tearing, tunnel vision or other ENT HEENT: Denies systems reviewed and no addt'l complaints, except as documented, as per HPI, none, abnormal hearing, bleeding gums, change in voice, dental pain, disequillibrium, dizziness, dry mouth, dysphagia, ear discharge, ear pain, epistaxis, facial pain, foreign body in nose, halitosis, headache(s), hearing loss, hoarseness, lip swelling, loss taste/smell, mouth lesions, mouth pain, mucositis, nasal congestion, nasal discharge, nasal obstruction, nasal trauma, neck mass, neck pain, nose pain, odynophagia, otalgia, post nasal drip, rhinorrhea, sinus pain, sinus pressure, sore throat, throat swelling, tinnitus, tongue swelling, vertigo or other Cardiovascular Cardiovascular: Denies systems reviewed and no addt'l complaints, except as documented, as per HPI, none, abdominal bloating, abdominal edema, abdominal pain, arrhythmia on telemetry, bluish discoloration of hand/feet, chest pain, chest pain at rest, chest pain with activity, claudication, clubbing, cold extremities, cyanosis, diaphoresis, dizziness, dyspnea, dyspnea at rest, dyspnea on exertion, easily tiring during activity, edema, erythema on extremities, fatigue, flutter in chest, hypertension, irregular heart rhythm, leg edema, leg ulcers, lightheadedness, nausea, numbness in extremities, orthopnea, orthostatic symptoms, pale ruby skin, palpitations, paroxysmal nocturnal dyspnea, pedal edema, periorbital swelling, pounding heartbeat, racing heartbeat, radiating jaw, neck or arm pain, rapid heart rate, slow heart rate, syncope, tachypnea, vomiting, weakness in extremities, weight gain or other Respiratory/Chest Respiratory/Chest: Denies systems reviewed and no addt'l complaints, except as documented, as per HPI, none, change in mental status, change in phlegm color, chest congestion, chest tightness, cough, difficulty clearing secretions, dry cough, dusky skin, dyspnea, dyspnea on exertion, excessive phlegm production, hemoptysis, hoarseness, inability to speak, mouth breathing, nail bed cyanosis, non-rest sleep EDS, pain on inspiration, pain with cough, pale skin, angel-oral cyanosis, portable oxygen @ home, productive cough, red skin, restlessness, shortness of breath at rest, shortness of breath with exertion, snoring, stridor, tachypnea, wheezing, witnessed apneas, breast mass, breast pain, breast skin changes, breast swelling, change in breast shape, nipple discharge or other Gastrointestinal Gastrointestinal: Denies systems reviewed and no addt'l complaints, except as documented, as per HPI, none, abdominal pain, anorexia, belching, bloating, change in bowel habits, change in stool character, chewing difficulty, coffee ground emesis, constipation, cramping, diarrhea, dry heaves, dyspepsia, dysphagia, early satiety, excessive flatus, fecal incontinence, heartburn, hematemesis, hematochezia, hemorrhoids, loose stools, melena, nausea, odynophagia, rectal bleeding, taste impaired, tenesmus, vomiting, weight changes or other Genitourinary Genitourinary: Denies systems reviewed and no addt'l complaints, except as documented, as per HPI, none, abdominal discomfort, anuria, burning urination, change in libido, change in urinary stream, contractions, difficulty urinating, difficulty with ejaculations, dribbling, dysuria, erectile dysfunction, external genitalia discoloration, movement, flank pain, genital bruising, genital lesions, genital pain, hematospermia, hematuria, itching, low back pain, nocturia, oliguria, painful ejaculations, penile discharge, penile swelling, polyuria, post void dribbling, scrotal pain, scrotal swelling, testicular mass, testicular swelling, undescended testicles, urinary frequency, urinary hesitancy, urinary incontinence, urinary urgency or other Musculoskeletal Musculoskeletal: Denies systems reviewed and no addt'l complaints, except as documented, as per HPI, none, abnormal gait, arthralgias, atrophy, back pain, deformity, difficulty walking, extremity pain, joint pain, joint stiffness, joint swelling, limited range of motion, loss of height, muscle cramps, muscle spasms, muscle weakness, myalgias, neck pain, numbness, radiating pain into limb, stiffness, tingling, tremors or other Integumentary Integumentary: Denies systems reviewed and no addt'l complaints, except as documented, as per HPI, none, acne, alopecia, bleeding lesions, change in hair, change in pigmentation, changing lesions, dry skin, erythema, furuncle, hirsutism, jaundice, lesions, nail changes, new lesions, non-healing lesions, photosensitivity, pruritus, rash, skin pain, skin ulcer, skin swelling, sores, striae, unusual bruising, wounds or other Neurologic Neurologic: Denies systems reviewed and no addt'l complaints, except as documented, as per HPI, none, abnormal gait, abnormal hearing, abnormal movements, abnormal speech, behavior changes, burning sensations, confusion, convulsions, disequilibrium, dizziness, focal weakness, frequent falls, headache(s), lack of coordination, loss of vision, memory loss, numbness, other visual disturbances, paresthesias, radicular pain, restless legs, seizure-like activity, seizures, sensory deficit, syncope, tingling, tremor(s), vertigo, weakness or other Psychiatric Psychiatric: Denies systems reviewed and no addt'l complaints, except as documented, as per HPI, none, abnormal sleep pattern, anhedonia, anxiety, auditory hallucinations, behavioral changes, change in appetite, change in libido, cognitive impairment, confusion, depression, difficulty concentrating, hallucinations, homicidal ideation, hopelessness, irritability, memory loss, mood swings, panic attacks, paranoia, suicidal ideation, suicidal thoughts, tactile hallucinations, visual hallucinations or other Endocrine Endocrinology: Denies systems reviewed and no addt'l complaints, except as documented, as per HPI, none, change in body appearance, change in libido, cold intolerance, deepening of the voice, excessive sweating, fatigue, flushing, heat intolerance, increase in ring/shoe/hat size, palpitations, polydipsia, polyphagia, polyuria or other Hematologic/Lymphatic Hematologic/Lymphatic: Denies systems reviewed and no addt'l complaints, except as documented, as per HPI, none, anemia, easy bleeding, easy bruising, lymphadenopathy or other Allergic/Immunologic Allergic/Immunologic: Denies systems reviewed and no addt'l complaints, except as documented, as per HPI, none, GI upset w/certain foods, itchy eyes, lip swelling, seasonal rhinorrhea, rhinitis, throat swelling, tongue swelling, hives, urticaria, eczemia, wheezing, asthma or other Physical Exam Const alert, oriented x3, no apparent distress and average body habitus Orientation / Consciousness: oriented to person, oriented to place and oriented to time HEENT Head and Scalp: atraumatic Neck no lymphadenopathy Resp no use of accessory muscles and clear to auscultation bilaterally Cardio Cardio Narrative: Has harsh systolic murmur GI non-tender Auscultation: normoactive bowel sounds Palpation: soft Extremity no clubbing, cyanosis or edema Neuro Sensorium / Orientation: awake and alert Lab / Micro Data 06/08/23 10:47 06/08/23 04:17 Labs: Laboratory Results - last 24 hr 06/07/23 17:10: WBC 16.3 H, RBC 2.23 L, Hgb 6.4 L, Hct 21.7 L, MCV 97.3, MCH 28.7, MCHC 29.5 L, RDW Std Deviation 71.7 H, RDW Coeff of Becca 20.5 H, Plt Count 310, MPV 9.7, Neut % (Auto) Not Reportable, Absolute Neuts (auto) 15.2 H, Absolute Lymphs (auto) 0.82 L, Total Counted 100, Neutrophils % (Manual) 90 H, Band Neutrophils % 3, Lymphocytes % (Manual) 5 L, Myelocytes % 2 H, Diff Path Review Reviewed, Anisocytosis 2+, Sodium 139, Potassium 4.7, Chloride 104, Carbon Dioxide 28.0, Anion Gap 7, BUN 69 H, Creatinine 4.43 H, Est GFR (MDRD) Af Amer 12 L, Est GFR (MDRD) Non-Af 10 L, BUN/Creatinine Ratio 15.6, Glucose 252 H, Calcium 7.4 L, Magnesium 2.3, Blood Type A NEGATIVE, Antibody Screen NEGATIVE, Crossmatch See Detail 06/07/23 18:40: PT 14.8, INR 1.2 06/08/23 04:17: WBC 17.0 H, RBC 2.83 L, Hgb 8.1 L, Hct 26.8 L, MCV 94.7, MCH 28.6, MCHC 30.2 L, RDW Std Deviation 67.3 H, RDW Coeff of Becca 20.2 H, Plt Count 278, MPV 9.6, Neut % (Auto) Not Reportable, Absolute Neuts (auto) 13.4 H, Absolute Lymphs (auto) 1.53, Total Counted 100, Neutrophils % (Manual) 75 H, Band Neutrophils % 4, Lymphocytes % (Manual) 9 L, Monocytes % (Manual) 4, Myelocytes % 7 H, Promyelocytes % 3 H, Diff Path Review Reviewed, PT 14.6, INR 1.1, Sodium 137, Potassium 4.8, Chloride 102, Carbon Dioxide 25.0, Anion Gap 10, BUN 81 H, Creatinine 4.73 H, Estim Creat Clear Calc 9.76, Est GFR (MDRD) Af Amer 12 L, Est GFR (MDRD) Non-Af 10 L, BUN/Creatinine Ratio 17.1, Glucose 147 H, Calcium 7.1 L 06/08/23 10:47: Hgb 8.0 L, Hct 26.3 L Micro: Microbiology 06/07/23 17:10 Stool Stool Occult Blood (SANJUANA) - Final Occult Blood Positive Imaging Radiology Impression Chest X-Ray 06/07/23 17:55 IMPRESSION: No definite acute or significant abnormality seen. Electronically Signed: Osmani Rizo MD at 18:08 EDT , Assessment & Plan Assessment/Plan (1) Acute exacerbation of chronic obstructive pulmonary disease: (2) GI bleed: (3) Anemia: PLAN: Plan Acute recurrent GI bleed likely only from the small bowel. She will need to undergo an EGD and colonoscopy possible for evaluation of the upper and lower GI tract. If we cannot locate the site of bleeding, she would need to be seen at a tertiary care center for double-balloon or single enteroscopy. She will be on clear liquid diet and n.p.o. after midnight. Charges/Coding Visit Charges Inpatient E&M: 70431 Init Hosp L3
[2023-06-08] VITALS (24 sets, daily range): BP systolic 124–225; BP diastolic 54–78; PULSE 70–89; RESP 16–187; TEMP 36.6–37; O2SAT 93–100; BMI 32.7
--- NOTE | 2023-06-08 | GASB_PTH ---
PATIENT: JULISSA VEGA LOC: [facility] U#:[id number] AGE/SX: 77/F ROOM: [facility] RE06/07/[address]: Dr. Sandoval Tong DO : 1945 BED: 1 DIS: 06/18/2023 SPEC #: [id number] RECD: 06/08/23 18:05 STATUS: TIM REQ #: [id number] JOSEPH: 06/08/23 00:[address]: Kameron Chan DEPT: SURGICAL PATHOLOGY RECD BY: Abhinav Wiggins ENTERED: 06/11/23 10:17 SP TYPE: Gastric Bx OTHR DR: MD Dr. Dario Winter MD Dr. Bruce Arthur, MD Dr. Derek Brown, DO Dr. Edward Matheis, MD Dr. Gautam Baskaran, MD Dr. Yordanos Habtegebriel, MD Dr. Hemant Dand, MD Dr. Jayaprakas Dasari, MD Dr. Kimber Foust, MD Dr. Kathryn Lee, DO Dr. Lamia Aljundi, MD Dr. Nana Yaa Koram, MD Dr. Prakash Chand, MD Dr. Pritam Ghosh, MD Dr. Pavan Irukulla, MD Dr. Saad Farooqi, MD Dr. Vikram Anand, MD Dr. William Haden, MD Dr. William Lago, MD Tissues: Gastric mucous membrane Procedures: Surgery Specimen Level IV Comments: @ Ordering doctor for SUIV edited from to @ oumar MOHAMUD at 06/12/23 1054 @ Submitting doctor edited from to @ oumar MOHAMUD at 06/12/23 1051 HEADER OPERATION: EGD, Gold probe, Polypectomy PRE-OP DIAGNOSIS: Acute blood loss anemia, Occult gastrointestinal hemorrhage TISSUE SUBMITTED: Gastric antrum polyp MICROSCOPIC DIAGNOSIS Gastric antrum polyp, polypectomy: Hyperplastic/ inflammatory polyp. Chronic inflammation. SJ/mr 06/12/23 COMMENT The results of immunohistochemistry for Helicobacter pylori will be reported separately ([id number]). MICROSCOPIC DESCRIPTION Slides are reviewed. GROSS DESCRIPTION Received in fixative is one container labeled with the patient's name and designated Gastric antrum polyp. The specimen consists of a polypoid fragment of schaefer tissue measuring 1.0 x 0.9 x 0.8 cm. The polyp is bisected and submitted entirely in one cassette. ALYSSA/ 06/11/23 TC:5 CPT:74499
[2023-06-08 04:33] LABS: Hematocrit 26.8 % (37-47); Hemoglobin 8.1 g/dL (12.0-15.0); Mean Corp Hgb Conc 30.2 g/dL (32-36); Mean Corpuscular Hgb 28.6 pg (27.0-32.0); Mean Corpuscular Volume 94.7 fL (81-99); Mean Platelet Vol. 9.6 fl (6.2-12.0); POSITIVE COUNT YES; POSITIVE MORPHOLOGY YES; Platelet Count 278 K/mm3 (150-450); RBC Distribution Width CV 20.2 % (11.6-14.6); RBC Distribution Width SD 67.3 fl (35.1-43.9); Red Blood Count 2.83 M/mm3 (4.2-5.4)
[2023-06-08 04:49] LABS: Differential Indicated MANUAL DIFF
[2023-06-08] MEDS: hydrALAZINE 50 MG Tablet 100 MG PO ×3 (05:29→22:01)
[2023-06-08 05:33] LABS: Anion Gap 10 (5-15); BUN 81 mg/dL (7-18); BUN/Creat Ratio 17.1 RATIO (10-20); Calcium,Total 7.1 mg/dL (8.5-10.1); Chloride 102 mmol/L (98-107); Creatinine, Serum 4.73 mg/dL (0.55-1.02); EST Glomerular Filtration Rate 10 mL/min (>60); Est Glom Filt Rate - Afr Amer 12 mL/min (>60); Estimated Creatinine Clearance 9.76 ml/min; Glucose 147 mg/dL (74-106); Potassium 4.8 mmol/L (3.5-5.1); Sodium Level 137 mmol/L (136-145)
[2023-06-08 05:36] LABS: International Normalized Ratio 1.1; Prothrombin Time (Protime)PT. 14.6 SECONDS (11.7-14.9)
[2023-06-08 06:23] LABS: Total Cells Counted 100 (MANUAL DIFF)
[2023-06-08 06:24] LABS: Lymphocyte 9 % (19-41); Monocyte 4 % (0-10); Myelocyte 7 % (0-0); Neutrophil-Band 4 % (0-5); Neutrophil-Segmented 75 % (47-70); Promyelocyte 3 % (0-0)
[2023-06-08 06:25] LABS: Absolute Lymphocyte Count 1.53 X10^3/uL (0.83-4.51); Absolute Neutrophil Count 13.4 X10^3/uL (2.0-7.7)
[2023-06-08] MEDS: Budesonide Respules 0.5 MG/2 ML AMPUL.NEB. INHALATION ×2 (07:08→20:48)
[2023-06-08] MEDS: PureFlow B 2K Dialysis Soln 1 BAG 6 BAG PF (08:10)
[2023-06-08] MEDS: 0.9% Normal Saline 1,000 ML IV.SOLN. 1000 ML OPERA.SITE (08:11)
[2023-06-08 11:03] LABS: Hematocrit 26.3 % (37-47)
--- NOTE | 2023-06-08 11:06 | PCM.CONS.R ---
Assessment & Plan Assessment/Plan (1) ESRD on dialysis: PLAN: Patient is due for dialysis today, she appears to be euvolemic, electrolytes are fine. Will schedule her for dialysis today HPI Consult Data Date of Consult: 06/08/23 HPI Narrative Reason for Consultation: ESRD HPI Narrative: JULISSA VEGA, is a 77 F who presents acute anemia, possible upper GI bleed. Patient has end-stage kidney disease and has been on dialysis for about 5 years. She is normally dialyzed in [place]. Her schedule is every Sunday. Overall, according to her daughter, patient is great on dialysis, she is compliant with diet, fluid intake and medications. The only thing that she refused placement of fistula or graft and continues to get dialysis through tunneled hemodialysis catheter. Her usual schedule is Sunday. Hemoglobin on admission was 6. She is going for EGD today. [facility] Medical History (Updated 06/08/23 @ 11:[address] Deena Vera MD) (HFpEF) heart failure with preserved ejection fraction Anemia Anemia in chronic kidney disease Anxiety Arthritis CAD (coronary artery disease) Carotid artery stenosis Chronic hyponatremia Chronic respiratory failure with hypoxia COPD (chronic obstructive pulmonary disease) Diabetes mellitus type 2 in obese Dyslipidemia ESRD on dialysis Essential hypertension History of blood transfusion History of renal dialysis History of upper gastrointestinal bleeding Iron deficiency anemia Leg cramps Leukocytosis Morbid obesity with BMI of 40.0-44.9, adult Non-rheumatic mitral regurgitation Non-rheumatic tricuspid valve insufficiency On home oxygen therapy ELAINE (obstructive sleep apnea) Pleural effusion Pulmonary hypertension Restless leg syndrome Secondary pulmonary hypertension Shortness of breath on exertion Smoking greater than 40 pack years Valvular heart disease Wears dentures Wears glasses Home Medications amitriptyline 100 mg tablet 100 mg PO QHS mental health 04/09/13 [History Last Taken 05/13/22 21:00] atorvastatin 80 mg tablet 80 mg PO DAILY CHOLESTEROL 10/25/17 [History Last Taken 05/13/22 21:30] amlodipine 10 mg tablet 10 mg PO DAILY BP 06/01/18 [History Last Taken 05/14/22 08:30] doxazosin 8 mg tablet 8 mg PO QHS blood pressure 08/20/18 [History Last Taken 05/13/22 21:30] omeprazole 40 mg capsule,delayed release 40 mg PO DAILY gerd 08/20/18 [History Last Taken 05/13/22 21:30] hydralazine 100 mg tablet 100 mg PO TID diuretic 01/01/19 [History Last Taken 05/14/22 14:00] bumetanide 2 mg tablet 2 mg PO DAILY diuretic 03/14/19 [History Last Taken 05/14/22 08:30] nitroglycerin 0.4 mg sublingual tablet 0.4 mg sublingual Q5M PRN CHEST PAIN 03/14/19 [History Last Taken Unknown] albuterol sulfate 90 mcg/actuation aerosol inhaler (ProAir HFA) 2 puff inhalation Q6H PRN sob 09/30/20 [History Last Taken 05/13/22 08:30] ropinirole 0.5 mg tablet 1.5 mg PO .COMPLEX restless legs 07/07/21 [History Last Taken 05/13/22 21:30] acetaminophen 500 mg tablet (Acetaminophen Extra Strength) 1,000 mg PO DAILY PRN Pain 05/04/22 [History Last Taken 05/14/22 14:00] ascorbic acid (vitamin C) 500 mg tablet 500 mg PO DAILY SUPPLEMENT 05/04/22 [History Last Taken 05/14/22 08:30] sevelamer carbonate 800 mg tablet 800 mg PO TIDCM PHOSPHATE 05/04/22 [History Last Taken 05/14/22 14:00] isosorbide mononitrate 60 mg tablet,extended release 24 hr 60 mg PO DAILY heart 05/14/22 [History Last Taken 05/13/22 21:30] albuterol sulfate 1.25 mg/3 mL solution for nebulization 1.25 mg (3 mL) inhalation 4X/DAY Wheezing #360 mL 03/20/23 [Rx Last Taken Unknown] budesonide-formoterol HFA 160 mcg-4.5 mcg/actuation aerosol inhaler (Symbicort) 2 inh inhalation BID breathing #3 ea 05/01/23 [Rx Last Taken Unknown] carvedilol 12.5 mg tablet 12.5 mg PO BID bp #180 tabs 05/17/23 [Rx Last Taken Unknown] guaifenesin 1,200 mg tablet, extended release 12 hr 1,200 mg PO Q12H PRN congestion 05/17/23 [History Last Taken Unknown] prednisone 10 mg tablet 10 mg PO UD #30 tabs 06/02/23 [Rx Last Taken Unknown] Allergy/AdvReac Type Severity Reaction Status Date / Time Penicillins Allergy Hives Verified 06/07/23 16:12 adhesive tape AdvReac Other Verified 06/07/23 16:12 Family History Mother Heart disease Father No problems noted. Surgical History H/O four vessel coronary artery bypass graft (~04/16/13) Hx of colonoscopy Hx of esophagogastroduodenoscopy Social History household members: family Smoking Status: Former smoker quit date: 03/05/10 how long ago did patient quit smoking: Quit ~ 13 yrs prior, smoked 3 ppd since in her 20s until quit. alcohol intake: current alcohol intake frequency: holidays/special occasions only substance use type: does not use ROS Constitutional Constitutional: Reports fatigue, lethargy, malaise and poor appetite Eyes Eyes: Denies systems reviewed and no addt'l complaints, except as documented, as per HPI, none, acute decrease in peripheral vision, blindness, blind spots, bloody eye, blurry vision, burning, change in eye color, change in vision, decreased night vision, diplopia, discharge from eye(s), discongugate gaze, double vision, dry eyes, erythema, excessive blinking, exophthalmos, eye pain, floaters, foreign body, halo effect, irritation, itchy eyes, loss of central vision, loss of peripheral vision, loss of vision, miosis, mydriasis, numbness, nystagmus, other visual disturbances, periorbital itching, photophobia, ptosis, puffy eyes, requires corrective lenses, seeing flashes, spots in vision, sunken eyes, tearing, tunnel vision or other ENT HEENT: Denies systems reviewed and no addt'l complaints, except as documented, as per HPI, none, abnormal hearing, bleeding gums, change in voice, dental pain, disequillibrium, dizziness, dry mouth, dysphagia, ear discharge, ear pain, epistaxis, facial pain, foreign body in nose, halitosis, headache(s), hearing loss, hoarseness, lip swelling, loss taste/smell, mouth lesions, mouth pain, mucositis, nasal congestion, nasal discharge, nasal obstruction, nasal trauma, neck mass, neck pain, nose pain, odynophagia, otalgia, post nasal drip, rhinorrhea, sinus pain, sinus pressure, sore throat, throat swelling, tinnitus, tongue swelling, vertigo or other Cardiovascular Cardiovascular: Denies systems reviewed and no addt'l complaints, except as documented, as per HPI, none, abdominal bloating, abdominal edema, abdominal pain, arrhythmia on telemetry, bluish discoloration of hand/feet, chest pain, chest pain at rest, chest pain with activity, claudication, clubbing, cold extremities, cyanosis, diaphoresis, dizziness, dyspnea, dyspnea at rest, dyspnea on exertion, easily tiring during activity, edema, erythema on extremities, fatigue, flutter in chest, hypertension, irregular heart rhythm, leg edema, leg ulcers, lightheadedness, nausea, numbness in extremities, orthopnea, orthostatic symptoms, pale ruby skin, palpitations, paroxysmal nocturnal dyspnea, pedal edema, periorbital swelling, pounding heartbeat, racing heartbeat, radiating jaw, neck or arm pain, rapid heart rate, slow heart rate, syncope, tachypnea, vomiting, weakness in extremities, weight gain or other Respiratory/Chest Respiratory/Chest: Denies systems reviewed and no addt'l complaints, except as documented, as per HPI, none, change in mental status, change in phlegm color, chest congestion, chest tightness, cough, difficulty clearing secretions, dry cough, dusky skin, dyspnea, dyspnea on exertion, excessive phlegm production, hemoptysis, hoarseness, inability to speak, mouth breathing, nail bed cyanosis, non-rest sleep EDS, pain on inspiration, pain with cough, pale skin, angel-oral cyanosis, portable oxygen @ home, productive cough, red skin, restlessness, shortness of breath at rest, shortness of breath with exertion, snoring, stridor, tachypnea, wheezing, witnessed apneas, breast mass, breast pain, breast skin changes, breast swelling, change in breast shape, nipple discharge or other Gastrointestinal Gastrointestinal: Denies systems reviewed and no addt'l complaints, except as documented, as per HPI, none, abdominal pain, anorexia, belching, bloating, change in bowel habits, change in stool character, chewing difficulty, coffee ground emesis, constipation, cramping, diarrhea, dry heaves, dyspepsia, dysphagia, early satiety, excessive flatus, fecal incontinence, heartburn, hematemesis, hematochezia, hemorrhoids, loose stools, melena, nausea, odynophagia, rectal bleeding, taste impaired, tenesmus, vomiting, weight changes or other Genitourinary Genitourinary: Denies systems reviewed and no addt'l complaints, except as documented, as per HPI, none, abdominal discomfort, anuria, burning urination, change in libido, change in urinary stream, contractions, difficulty urinating, difficulty with ejaculations, dribbling, dysuria, erectile dysfunction, external genitalia discoloration, movement, flank pain, genital bruising, genital lesions, genital pain, hematospermia, hematuria, itching, low back pain, nocturia, oliguria, painful ejaculations, penile discharge, penile swelling, polyuria, post void dribbling, scrotal pain, scrotal swelling, testicular mass, testicular swelling, undescended testicles, urinary frequency, urinary hesitancy, urinary incontinence, urinary urgency or other Musculoskeletal Musculoskeletal: Denies systems reviewed and no addt'l complaints, except as documented, as per HPI, none, abnormal gait, arthralgias, atrophy, back pain, deformity, difficulty walking, extremity pain, joint pain, joint stiffness, joint swelling, limited range of motion, loss of height, muscle cramps, muscle spasms, muscle weakness, myalgias, neck pain, numbness, radiating pain into limb, stiffness, tingling, tremors or other Integumentary Integumentary: Denies systems reviewed and no addt'l complaints, except as documented, as per HPI, none, acne, alopecia, bleeding lesions, change in hair, change in pigmentation, changing lesions, dry skin, erythema, furuncle, hirsutism, jaundice, lesions, nail changes, new lesions, non-healing lesions, photosensitivity, pruritus, rash, skin pain, skin ulcer, skin swelling, sores, striae, unusual bruising, wounds or other Neurologic Neurologic: Denies systems reviewed and no addt'l complaints, except as documented, as per HPI, none, abnormal gait, abnormal hearing, abnormal movements, abnormal speech, behavior changes, burning sensations, confusion, convulsions, disequilibrium, dizziness, focal weakness, frequent falls, headache(s), lack of coordination, loss of vision, memory loss, numbness, other visual disturbances, paresthesias, radicular pain, restless legs, seizure-like activity, seizures, sensory deficit, syncope, tingling, tremor(s), vertigo, weakness or other Psychiatric Psychiatric: Denies systems reviewed and no addt'l complaints, except as documented, as per HPI, none, abnormal sleep pattern, anhedonia, anxiety, auditory hallucinations, behavioral changes, change in appetite, change in libido, cognitive impairment, confusion, depression, difficulty concentrating, hallucinations, homicidal ideation, hopelessness, irritability, memory loss, mood swings, panic attacks, paranoia, suicidal ideation, suicidal thoughts, tactile hallucinations, visual hallucinations or other Endocrine Endocrinology: Denies systems reviewed and no addt'l complaints, except as documented, as per HPI, none, change in body appearance, change in libido, cold intolerance, deepening of the voice, excessive sweating, fatigue, flushing, heat intolerance, increase in ring/shoe/hat size, palpitations, polydipsia, polyphagia, polyuria or other Hematologic/Lymphatic Hematologic/Lymphatic: Denies systems reviewed and no addt'l complaints, except as documented, as per HPI, none, anemia, easy bleeding, easy bruising, lymphadenopathy or other Allergic/Immunologic Allergic/Immunologic: Denies systems reviewed and no addt'l complaints, except as documented, as per HPI, none, GI upset w/certain foods, itchy eyes, lip swelling, seasonal rhinorrhea, rhinitis, throat swelling, tongue swelling, hives, urticaria, eczemia, wheezing, asthma or other Physical Exam Const alert and oriented x3 General Appearance: cooperative and comfortable HEENT normocephalic Head and Scalp: normal to inspection Eyes General Eye: normal appearance of both eyes Lymph Lymphatic: no lymphadenopathy noted Resp normal respiratory effort and normal air movement Cardio regular rate Rate: regular rate Heart Sounds: murmur systolic / harsh GI normal to inspection, nondistended, normoactive bowel sounds Skin no rashes or lesions noted Neuro Sensorium / Orientation: awake, alert, oriented to person, oriented to place and oriented to time Medical Records Data Attestation: I reviewed the patient's medical records Lab / Micro Data Attestation: I reviewed the patient's lab results. 06/08/23 10:47 06/08/23 04:17 Labs: Laboratory Results - last 24 hr 06/07/23 17:10: WBC 16.3 H, RBC 2.23 L, Hgb 6.4 L, Hct 21.7 L, MCV 97.3, MCH 28.7, MCHC 29.5 L, RDW Std Deviation 71.7 H, RDW Coeff of Becca 20.5 H, Plt Count 310, MPV 9.7, Neut % (Auto) Not Reportable, Absolute Neuts (auto) 15.2 H, Absolute Lymphs (auto) 0.82 L, Total Counted 100, Neutrophils % (Manual) 90 H, Band Neutrophils % 3, Lymphocytes % (Manual) 5 L, Myelocytes % 2 H, Diff Path Review July alexandra, Anisocytosis 2+, Sodium 139, Potassium 4.7, Chloride 104, Carbon Dioxide 28.0, Anion Gap 7, BUN 69 H, Creatinine 4.43 H, Est GFR (MDRD) Af Amer 12 L, Est GFR (MDRD) Non-Af 10 L, BUN/Creatinine Ratio 15.6, Glucose 252 H, Calcium 7.4 L, Magnesium 2.3, Blood Type A NEGATIVE, Antibody Screen NEGATIVE, Crossmatch See Detail 06/07/23 18:40: PT 14.8, INR 1.2 06/08/23 04:17: WBC 17.0 H, RBC 2.83 L, Hgb 8.1 L, Hct 26.8 L, MCV 94.7, MCH 28.6, MCHC 30.2 L, RDW Std Deviation 67.3 H, RDW Coeff of Becca 20.2 H, Plt Count 278, MPV 9.6, Neut % (Auto) Not Reportable, Absolute Neuts (auto) 13.4 H, Absolute Lymphs (auto) 1.53, Total Counted 100, Neutrophils % (Manual) 75 H, Band Neutrophils % 4, Lymphocytes % (Manual) 9 L, Monocytes % (Manual) 4, Myelocytes % 7 H, Promyelocytes % 3 H, Diff Path Review July alexandra, PT 14.6, INR 1.1, Sodium 137, Potassium 4.8, Chloride 102, Carbon Dioxide 25.0, Anion Gap 10, BUN 81 H, Creatinine 4.73 H, Estim Creat Clear Calc 9.76, Est GFR (MDRD) Af Amer 12 L, Est GFR (MDRD) Non-Af 10 L, BUN/Creatinine Ratio 17.1, Glucose 147 H, Calcium 7.1 L 06/08/23 10:47: Hgb 8.0 L, Hct 26.3 L Micro: Microbiology 06/07/23 17:10 Stool Stool Occult Blood (SANJUANA) - Final Occult Blood Positive Imaging Radiology Impression Chest X-Ray 06/07/23 17:55 IMPRESSION: No definite acute or significant abnormality seen. Electronically Signed: Osmani Rizo MD at 18:08 EDT ,
--- NOTE | 2023-06-08 11:12 | PN.RENAL_ITS ---
Subjective Subjective Came over to supervise during dialysis session. Using dialysis catheter with no issues. Trying to remove 2000 cc, she is hemodynamically stable. Objective Data Objective Data Vital Signs: Vital Signs Temp Pulse Resp BP Pulse Ox O2 Del Method O2 Flow Rate 98 F 80 18 160/61 H 95 Nasal Cannula 2 06/08/23 02:57 06/08/23 11:00 06/08/23 11:00 06/08/23 11:00 06/08/23 11:00 06/08/23 11:00 06/08/23 11:00 Oxygen Flow Rate (L/min) 2 Oxygen Delivery Method Nasal Cannula Weight: 80.739 kg Body Mass Index (BMI) 32.7 Intake & Output: Intake and Output for Last 24 Hours 06/06/23 06/07/23 06/08/23 23:59 23:59 23:59 Intake Total 244.75 / 244.75 251 / 251 Output Total 1999 Balance 244.75 / 244.75 -1749 / -1749 Lab / Micro Data Attestation: I reviewed the patient's lab results. 06/08/23 10:47 06/08/23 04:17 Labs: Laboratory Results - last 24 hr 06/07/23 17:10: WBC 16.3 H, RBC 2.23 L, Hgb 6.4 L, Hct 21.7 L, MCV 97.3, MCH 28.7, MCHC 29.5 L, RDW Std Deviation 71.7 H, RDW Coeff of Becca 20.5 H, Plt Count 310, MPV 9.7, Neut % (Auto) Not Reportable, Absolute Neuts (auto) 15.2 H, Absolute Lymphs (auto) 0.82 L, Total Counted 100, Neutrophils % (Manual) 90 H, Band Neutrophils % 3, Lymphocytes % (Manual) 5 L, Myelocytes % 2 H, Diff Path Review May foll, Anisocytosis 2+, Sodium 139, Potassium 4.7, Chloride 104, Carbon Dioxide 28.0, Anion Gap 7, BUN 69 H, Creatinine 4.43 H, Est GFR (MDRD) Af Amer 12 L, Est GFR (MDRD) Non-Af 10 L, BUN/Creatinine Ratio 15.6, Glucose 252 H, Calcium 7.4 L, Magnesium 2.3, Blood Type A NEGATIVE, Antibody Screen NEGATIVE, Crossmatch See Detail 06/07/23 18:40: PT 14.8, INR 1.2 06/08/23 04:17: WBC 17.0 H, RBC 2.83 L, Hgb 8.1 L, Hct 26.8 L, MCV 94.7, MCH 28.6, MCHC 30.2 L, RDW Std Deviation 67.3 H, RDW Coeff of Becca 20.2 H, Plt Count 278, MPV 9.6, Neut % (Auto) Not Reportable, Absolute Neuts (auto) 13.4 H, A bsolute Lymphs (auto) 1.53, Total Counted 100, Neutrophils % (Manual) 75 H, Band Neutrophils % 4, Lymphocytes % (Manual) 9 L, Monocytes % (Manual) 4, Myelocytes % 7 H, Promyelocytes % 3 H, Diff Path Review July, PT 14.6, INR 1.1, Sodium 137, Potassium 4.8, Chloride 102, Carbon Dioxide 25.0, Anion Gap 10, BUN 81 H, Creatinine 4.73 H, Estim Creat Clear Calc 9.76, Est GFR (MDRD) Af Amer 12 L, Est GFR (MDRD) Non-Af 10 L, BUN/Creatinine Ratio 17.1, Glucose 147 H, Calcium 7.1 L 06/08/23 10:47: Hgb 8.0 L, Hct 26.3 L Micro: Microbiology 06/07/23 17:10 Stool Stool Occult Blood (SANJUANA) - Final Occult Blood Positive Radiography Diagnostic Testing: Radiology Impression Chest X-Ray 06/07/23 17:55 IMPRESSION: No definite acute or significant abnormality seen. Electronically Signed: Osmani Rizo MD at 18:08 EDT , Physical Exam Const alert, oriented x3, no apparent distress and average body habitus Orientation / Consciousness: oriented to person, oriented to place and oriented to time HEENT Head and Scalp: atraumatic Neck no lymphadenopathy Resp no use of accessory muscles and clear to auscultation bilaterally Cardio Cardio Narrative: Has harsh systolic murmur GI non-tender Auscultation: normoactive bowel sounds Palpation: soft Extremity no clubbing, cyanosis or edema Neuro Sensorium / Orientation: awake and alert Assessment & Plan Assessment/Plan (1) ESRD on dialysis: PLAN: Patient has been seen and evaluated during dialysis session and appears to be stable. Continue with current ultrafiltration, and prescription
[2023-06-08] MEDS: Pramipexole Di-HCl 0.5 MG Tablet PO ×2 (12:08→17:41)
[2023-06-08] MEDS: amLODIPine 10 MG Tablet PO (12:09)
[2023-06-08] MEDS: Carvedilol 12.5 MG Tablet PO ×2 (12:09→22:01)
[2023-06-08] MEDS: Isosorbide Mononitrate 60 MG Tablet PO (12:11)
[2023-06-08] MEDS: Pantoprazole Sodium 40 MG in 0.9% Normal Saline (100mL MB+) 100 ML 330 MG IV ×2 (12:22→22:09)
[2023-06-08] MEDS: Ceftriaxone 1 GM/50 ML BAG IV (12:53)
[2023-06-08] MEDS: Octreotide 0.5 MG in Dextrose 5%-Water (250mL Bag) 249 ML 25 MG CONT INF (13:00)
[2023-06-08 13:13] LABS: Pathologist Review Reviewed
[2023-06-08 13:14] LABS: Pathologist Review Reviewed
--- NOTE | 2023-06-08 15:02 | CASEMGMT ---
RANDY MONTALVO chart review: Patient was admitted 05/21-05/24/23 for altered mental status and COPD exertion. See RN CM assessment from 05/23/23. Patient was discharged to home maintaining on home oxygen orders, family support, and follow-up plans in place. Patient returned 06/07/23 for dyspnea and low hgb of 6.4, admitted for GI bleed with GI consult. RANDY CM in to discuss readmission and needs at discharge. Daughter at bedside. Per patient and daughter, pateint followed up with PCP on 06/05/23. Patient was wearing oxygen as ordered and taking medications as prescribed. Patient was attending HD on MWF at [facility]. Patient denies needs at discharge, has assistance from daughter. Patietn will have portable tank at discharge. Patient and daughter deny further needs or concerns. Patient to discharge home with family support and follow-up plans in place. CM will continue to follow this patient and plan for a safe discharge.
--- NOTE | 2023-06-08 15:30 | IMM_PTH ---
PATIENT: JULISSA VEGA LOC: [facility] U#:[id number] AGE/SX: 77/F ROOM: [facility] RE06/07/[address]: Dr. Sandoval Tong DO : 1945 BED: 1 DIS: 06/18/2023 SPEC #: [id number] RECD: 06/11/23 10:25 STATUS: SOUT REQ #: [id number] JOSEPH: 06/08/23 15:[address]: Kameron Chan DEPT: IMMUNOHISTOCHEMISTRY RECD BY: Uriah Diaz ENTERED: 06/11/23 10:25 SP TYPE: IMMUNO OTHR DR: MD Dr. Dario Winter MD Dr. Bruce Arthur, MD Dr. Derek Brown, DO Dr. Edward Matheis, MD Dr. Gautam Baskaran, MD Dr. Yordanos Habtegebriel, MD Dr. Hemant Dand, MD Dr. Jayaprakas Dasari, MD Dr. Kimber Foust, MD Dr. Kathryn Lee, DO Dr. Lamia Aljundi, MD Dr. Nana Yaa Koram, MD Dr. Prakash Chand, MD Dr. Pritam Ghosh, MD Dr. Pavan Irukulla, MD Dr. Saad Farooqi, MD Dr. Vikram Anand, MD Dr. William Haden, MD Dr. William Lago, MD Tissues: Stomach, NOS Procedures: H Pylori (initial) Comments: @ Ordering doctor for H.PYLORI edited from to @ oumar MOHAMUD at 06/11/23 1028 @ Submitting doctor edited from to @ oumar MOHAMUD at 06/11/23 1028 PHYSICIAN & INSTITUTION [address] [address] SPECIMEN INFORMATION: Tissue Source: Gastric antrum polyp Clinical Info: Acute blood loss anemia, Occult gastrointestinal hemorrhage Specimen Number: [id number] CPT code: 56607 METHODOLOGY: Deparaffinized sections of prefer/formalin-fixed tissue or PAP/DQ stained slides are incubated with monoclonal/polyclonal antibodies/oligonucleotide probes. Localization is made via biotin free immunoperoxidase method. Appropriate controls are performed and reacted as expected. Results on target cell population are indicated in the following table: RESULTS: ANTIBODY / CLONE RESULT H Pylori (polyclonal) negative These tests were developed and their performance characteristics determined by [facility]. They may not have been cleared or approved by the U.S. Food and Drug Administration. The FDA has determined that such clearance or approval is not necessary. The above immunohistochemical/dualISH markers are ordered and reviewed by the Pathologist. INTERPRETATION: Gastric antrum polyp, biopsy: Negative for Helicobacter pylori organisms. VICENTA/ 06/12/23
--- NOTE | 2023-06-08 16:47 | OP.CCLET_ITS ---
06/08/2023 Levi Laird Re : Upper GI endoscopy procedure for Shante Fuenteshaider Laird This procedure was performed on Thursday, June 08, 2023. My impressions and recommendations are as follows: Impressions : - Grade II esophageal varices. - Oozing gastric ulcer with pigmented material. Injected. Treated with a heater probe. - A single gastric polyp. Resected and retrieved. - A single bleeding angiodysplastic lesion in the duodenum. Treated with argon plasma coagulation (APC). Recommendations : - [facility]. - Resume previous diet. - Continue present medications. My findings are described in the full procedure note, which is enclosed. If I can be of further assistance, please feel free to contact me at . Sincerely, Kameron Friend, 06/08/2023 4:46:48 PM This report has been signed electronically.
--- NOTE | 2023-06-08 16:47 | OP.EGD_ITS ---
Patient Name: Shante Trujillo Procedure Date: 06/08/2023 4:07 PM Date of : 1945 Age: 77 Procedure: Upper GI endoscopy Indications: Iron deficiency anemia, Melena Providers: Kameron Chan DO Medicines: Monitored Anesthesia Care Patient Profile: This is a 77 year old female. Refer to note in patient chart for documentation of history and physical. Patient has symptoms of acute epigastric abdominal pain, acute dyspepsia and acute nausea. Her most recent EGD for treatment of bleeding was one year ago. Complications: No immediate complications. Procedure: Pre-Anesthesia Assessment: - Prior to the procedure, a History and Physical was performed, and patient medications and allergies were reviewed. The patient is competent. The risks and benefits of the procedure and the sedation options and risks were discussed with the patient. All questions were answered and informed consent was obtained. Patient identification and proposed procedure were verified by the physician in the pre-procedure area. Mental Status Examination: alert and oriented. Airway Examination: normal oropharyngeal airway and neck mobility. Respiratory Examination: clear to auscultation. CV Examination: normal. Prophylactic Antibiotics: The patient does not require prophylactic antibiotics. Prior Anticoagulants: The patient has taken no anticoagulant or antiplatelet agents. ASA Grade Assessment: IV - A patient with severe systemic disease that is a constant threat to life. After reviewing the risks and benefits, the patient was deemed in satisfactory condition to undergo the procedure. The anesthesia plan was to use monitored anesthesia care (MAC). Immediately prior to administration of medications, the patient was re-assessed for adequacy to receive sedatives. The heart rate, respiratory rate, oxygen saturations, blood pressure, adequacy of pulmonary ventilation, and response to care were monitored throughout the procedure. The physical status of the patient was re-assessed after the procedure. After obtaining informed consent, the endoscope was passed under direct vision. Throughout the procedure, the patient's blood pressure, pulse, and oxygen saturations were monitored continuously. The Endoscope was introduced through the mouth, and advanced to the second part of duodenum. The upper GI endoscopy was accomplished without difficulty. The patient tolerated the procedure well. Scope In: 4:17:50 PM Scope Out: 4:35:54 PM Total Procedure Duration Time 0 hours 18 minutes 4 seconds Findings: Grade II varices were found in the upper third of the esophagus. They were 5 mm in largest diameter. One oozing linear gastric ulcer with pigmented material was found in the cardia. The lesion was 6 mm in largest dimension. Area was successfully injected with 5 mL of a 0.1 mg/mL solution of epinephrine for drug delivery. Coagulation for hemostasis using heater probe was successful. Estimated blood loss was minimal. A single 15 mm pedunculated and sessile polyp with bleeding and stigmata of recent bleeding was found in the gastric antrum. The polyp was removed with a saline injection-lift technique using a hot snare. Resection and retrieval were complete. Verification of patient identification for the specimen was done by the physician. A single 5 mm angiodysplastic lesion with bleeding was found in the first portion of the duodenum. Coagulation for hemostasis using argon plasma at 0.3 liters/minute and 20 kern was successful. Estimated blood loss was minimal. Impression: - Grade II esophageal varices. - Oozing gastric ulcer with pigmented material. Injected. Treated with a heater probe. - A single gastric polyp. Resected and retrieved. - A single bleeding angiodysplastic lesion in the duodenum. Treated with argon plasma coagulation (APC). Recommendation: - [facility]. - Resume previous diet. - Continue present medications. Procedure Code(s): --- Professional --- 83123, 59, Esophagogastroduodenoscopy, flexible, transoral; with control of bleeding, any method 09392, 51, Esophagogastroduodenoscopy, flexible, transoral; with removal of tumor(s), polyp(s), or other lesion(s) by snare technique 75542, 59, Esophagogastroduodenoscopy, flexible, transoral; with directed submucosal injection(s), any substance CPT copyright 2021 [employer]. All rights reserved. The codes documented in this report are preliminary and upon fiscal agent review may be revised to meet current compliance requirements. Kameron Chan DO 06/08/2023 4:46:48 PM This report has been signed electronically. Number of Addenda: 0 Note Initiated On: 06/08/2023 4:07 PM
[2023-06-08] MEDS: Bumetanide 2 MG Tablet PO (17:40)
[2023-06-08] MEDS: SEVELAMER CARBONATE 800 MG TABLET PO (17:41)
[2023-06-08] MEDS: Atorvastatin Calcium 80 MG Tablet PO (17:43)
[2023-06-08] MEDS: 0.9% Saline Lock 10 ML Syringe IV (17:52)
[2023-06-08 18:17] LABS: Bedside Glucose 111 mg/dL (74-106)
[2023-06-08] MEDS: Albuterol 2.5 MG/3 ML VIAL.NEB. INHALATION (20:48)
[2023-06-08] MEDS: Pramipexole Di-HCl 0.25 MG Tablet 0.75 MG PO (22:01)
[2023-06-08] MEDS: Amitriptyline 100 MG Tablet PO (22:02)
[2023-06-08] MEDS: Doxazosin 4 MG Tablet 8 MG PO (22:03)
[2023-06-08 22:49] LABS: Bedside Glucose 131 mg/dL (74-106)
[2023-06-09] VITALS (19 sets, daily range): BP systolic 138–177; BP diastolic 56–82; PULSE 63–81; RESP 15–20; TEMP 36.4–36.9; O2SAT 93–98; BMI 32.3
[2023-06-09] MEDS: Octreotide 0.5 MG in Dextrose 5%-Water (250mL Bag) 249 ML 25 MG CONT INF (04:20)
[2023-06-09] MEDS: hydrALAZINE 50 MG Tablet 100 MG PO ×3 (05:39→20:55)
[2023-06-09 06:18] LABS: Bedside Glucose 130 mg/dL (74-106)
[2023-06-09] MEDS: Budesonide Respules 0.5 MG/2 ML AMPUL.NEB. INHALATION ×2 (07:31→20:09)
[2023-06-09] MEDS: Pramipexole Di-HCl 0.5 MG Tablet PO ×2 (07:43→16:45)
[2023-06-09] MEDS: SEVELAMER CARBONATE 800 MG TABLET PO ×3 (07:43→16:44)
[2023-06-09] MEDS: Atorvastatin Calcium 80 MG Tablet PO (07:44)
[2023-06-09] MEDS: Carvedilol 12.5 MG Tablet PO ×2 (07:44→20:55)
[2023-06-09] MEDS: Isosorbide Mononitrate 60 MG Tablet PO (07:44)
[2023-06-09] MEDS: Bumetanide 2 MG Tablet PO (07:45)
[2023-06-09] MEDS: amLODIPine 10 MG Tablet PO (07:45)
[2023-06-09] MEDS: Pantoprazole Sodium 40 MG in 0.9% Normal Saline (100mL MB+) 100 ML 330 MG IV ×2 (08:59→20:55)
[2023-06-09] MEDS: Ceftriaxone 1 GM/50 ML BAG IV (09:25)
--- NOTE | 2023-06-09 11:32 | PN_ITS ---
Subjective Subjective Patient seen and examined. I assumed care of the patient today. She was admitted with a complaint of GI bleed. She is s/p EGD. Patient has no complaints today. Review of systems is otherwise negative. She had EGD yesterday which showed grade 2 esophageal varices and oozing gastric ulcer with pigmented material whi ch was injected and treated with heater probe as well as a single angiodysplastic lesion which was treated. Review of systems is otherwise negative. Objective Data Objective Data Vital Signs: Vital Signs Temp Pulse Resp BP Pulse Ox O2 Del Method O2 Flow Rate 98.1 F 77 16 177/68 H 94 Nasal Cannula 2 06/09/23 07:40 06/09/23 07:40 06/09/23 07:40 06/09/23 07:40 06/09/23 07:40 06/09/23 08:13 06/09/23 09:01 Oxygen Flow Rate (L/min) 2 Oxygen Delivery Method Nasal Cannula Weight: 176 lb 8.386 oz Body Mass Index (BMI) 32.3 Intake & Output: Intake and Output for Last 24 Hours 06/07/23 06/08/23 06/09/23 23:59 23:59 23:59 Intake Total 244.75 / 244.75 1577.25 / 1677.25 588.75 / 588.75 Output Total 1999 Balance 244.75 / 244.75 -422.75 / -322.75 588.75 / 588.75 Lab / Micro Data 06/09/23 12:03 06/09/23 12:03 Labs: Laboratory Results - last 24 hr 06/07/23 17:10: Diff Path Review Reviewed 06/08/23 04:17: Diff Path Review Reviewed 06/08/23 17:50: POC Glucose 111 H 06/08/23 22:08: POC Glucose 131 H 06/09/23 05:37: POC Glucose 130 H Micro: Microbiology 06/07/23 17:10 Stool Stool Occult Blood (SANJUANA) - Final Occult Blood Positive Physical Exam Const alert, oriented x3 and no apparent distress Constitutional Narrative: frail General Appearance: cooperative and well developed HEENT normocephalic and head/scalp atraumatic Mouth: dry mucous membranes Eyes PERRL and EOMs intact bilaterally Neck no lymphadenopathy and supple Lymph Lymphatic: no lymphadenopathy noted Cardio regular rate, regular rhythm, S1 normal heart sound and S2 normal heart sound GI normal to inspection, nondistended, normoactive bowel sounds, soft to palpation, non-tender and non-distended Extremity normal capillary refill, no clubbing, cyanosis or edema and no calf tenderness General Extremity: no tenderness to palpation of joints or extremities Skin Skin Narrative: AV fistula in situ, with good thrill. General Skin Exam: no breakdown Neuro CN's II-XII intact bilaterally, no focal motor deficits, no sensory deficits noted and deep tendon reflexes 2+ bilaterally Motor Exam: strength 5/5 throughout and general weakness Psych thought process normal and cooperative Appearance: appropriate Assessment & Plan Assessment/Plan (1) ABLA (acute blood loss anemia): (2) Occult gastrointestinal hemorrhage: PLAN: Plan #Acute on chronic anemia due to acute blood loss from GI bleed * Hb was 6.4 on admission. * had EGD which showed * on IV pantoprazole * Patient's hemoglobin dropped today from 8-7.4 so not comfortable with discharging patient. Watch patient 1 more day to make sure that the downward trend in the hemoglobin does not continue as if it does she may need another scope. * Was on octreotide due to history of cirrhosis and that this was discontinued today. * GI on board. * #CAD s/p CABG x 4: On Coreg and statin. Aspirin on hold. #Heart failure preserved ejection fraction: On Coreg and statin as well as Bumex. Has known EF of 60%. #Hypertension: On Imdur and hydralazine as well as Coreg, amlodipine and dexamethasone as well as Bumex. IV hydralazine as needed #Hyperlipidemia: On statin #ESRD with mild hyperkalemia: * On hemodialysis Sunday. * She says her Sunday dialysis has been moved to Sunday on account of the experts. On sevelamer. * #Chronic respiratory failure due to COPD: on 2L of oxygen by nasal canula. Breathing treatment with bronchodilators. Titrate oxygen to maintain sats .905 #Anxiety and depression: on elavil Type 2 diactes mellitus: on lantus. ISS. Accuchecks ACHS #Restless leg syndrome: on mirapex DVT prophylaxis: SCDs Disposition: Anticipate discharge over the next 24 to 48 hours if her hemoglobin does not trend downward further. Charges/Coding Visit Charges Inpatient E&M: 75721 Subs Hosp L2
[2023-06-09 12:10] LABS: Hematocrit 25.7 % (37-47); Hemoglobin 7.4 g/dL (12.0-15.0); Mean Corp Hgb Conc 28.8 g/dL (32-36); Mean Corpuscular Hgb 29.1 pg (27.0-32.0); Mean Corpuscular Volume 101.2 fL (81-99); Mean Platelet Vol. 9.6 fl (6.2-12.0); POSITIVE COUNT YES; POSITIVE MORPHOLOGY YES; Platelet Count 295 K/mm3 (150-450); RBC Distribution Width CV 20.9 % (11.6-14.6); RBC Distribution Width SD 72.4 fl (35.1-43.9); Red Blood Count 2.54 M/mm3 (4.2-5.4)
[2023-06-09 12:12] LABS: Differential Indicated MANUAL DIFF
[2023-06-09 12:26] LABS: Anion Gap 7 (5-15); BUN 80 mg/dL (7-18); BUN/Creat Ratio 16.9 RATIO (10-20); Calcium,Total 7.1 mg/dL (8.5-10.1); Chloride 102 mmol/L (98-107); Creatinine, Serum 4.74 mg/dL (0.55-1.02); EST Glomerular Filtration Rate 10 mL/min (>60); Est Glom Filt Rate - Afr Amer 12 mL/min (>60); Glucose 187 mg/dL (74-106); Potassium 5.2 mmol/L (3.5-5.1); Sodium Level 136 mmol/L (136-145)
[2023-06-09 12:52] LABS: White Blood Count 15.4 K/mm3 (4.4-11.0)
[2023-06-09 12:54] LABS: Eosinophil 3 % (0-5); Lymphocyte 4 % (19-41); Metamyelocyte 4 % (0-1); Monocyte 2 % (0-10); Myelocyte 1 % (0-0); Neutrophil-Band 2 % (0-5); Neutrophil-Segmented 84 % (47-70); Nucleated Red Bld Cells,Manual 1 % (0-5); Platelet Estimate ADEQUATE (ADEQ); Total Cells Counted 100 (MANUAL DIFF)
[2023-06-09 12:55] LABS: Anisocytosis 2+; Basophilic Stippling 1+; Polychromasia 1+
[2023-06-09 12:56] LABS: Absolute Lymphocyte Count 0.61 X10^3/uL (0.83-4.51); Absolute Neutrophil Count 1.3 X10^3/uL (2.0-7.7)
--- NOTE | 2023-06-09 16:08 | CASEMGMT ---
Social Work Both living will and POA for Healthcare scanned into [email or web address], Janessa Robertson is listed as healthcare POA. RENAY Ramirez
--- NOTE | 2023-06-09 16:23 | PN.GI_ITS ---
Subjective Subjective Patient underwent an upper endoscopy yesterday. She was discovered to have active bleeding in the proximal portion of her stomach. She does not have any abdominal pain and is tolerating a diet. Objective Data Objective Data Vital Signs: Vital Signs Temp Pulse Resp BP Pulse Ox O2 Del Method O2 Flow Rate 98.4 F 63 18 138/56 H 94 Nasal Cannula 2 06/09/23 13:44 06/09/23 13:49 06/09/23 13:44 06/09/23 13:49 06/09/23 13:44 06/09/23 13:57 06/09/23 13:44 Oxygen Flow Rate (L/min) 2 Oxygen Delivery Method Nasal Cannula Weight: 176 lb 8.386 oz Body Mass Index (BMI) 32.3 Intake & Output: Intake and Output for Last 24 Hours 06/07/23 06/08/23 06/09/23 23:59 23:59 23:59 Intake Total 244.75 / 244.75 1577.25 / 1677.25 763.75 / 763.75 Output Total 1999 Balance 244.75 / 244.75 -422.75 / -322.75 763.75 / 763.75 Lab / Micro Data 06/09/23 12:03 06/09/23 12:03 Labs: Laboratory Results - last 24 hr 06/08/23 17:50: POC Glucose 111 H 06/08/23 22:08: POC Glucose 131 H 06/09/23 05:37: POC Glucose 130 H 06/09/23 12:03: WBC 15.4 H, RBC 2.54 L, Hgb 7.4 L, Hct 25.7 L, MCV 101.2 H D, MCH 29.1, MCHC 28.8 L, RDW Std Deviation 72.4 H, RDW Coeff of Becca 20.9 H, Plt Count 295, MPV 9.6, Neut % (Auto) Not Reportable, Absolute Neuts (auto) 1.3 L, Absolute Lymphs (auto) 0.61 L, Total Counted 100, Neutrophils % (Manual) 84 H, Band Neutrophils % 2, Lymphocytes % (Manual) 4 L, Monocytes % (Manual) 2, Eosinophils % (Manual) 3, Metamyelocytes % 4 H, Myelocytes % 1 H, Nucleated RBCs/100 WBC 1, Diff Path Review May foll, Platelet Estimate ADEQUATE, Polychromasia 1+, Basophilic Stippling 1+, Anisocytosis 2+, Sodium 136, Potassium 5.2 H, Chloride 102, Carbon Dioxide 27.0, Anion Gap 7, BUN 80 H, Creatinine 4.74 H, Estim Creat Clear Calc 9.90, Est GFR (MDRD) Af Amer 12 L, Est GFR (MDRD) Non-Af 10 L, BUN/Creatinine Ratio 16.9, Glucose 187 H, Calcium 7.1 L Micro: Microbiology 06/07/23 17:10 Stool Stool Occult Blood (SANJUANA) - Final Occult Blood Positive Physical Exam Const alert, oriented x3 and no apparent distress Constitutional Narrative: frail General Appearance: cooperative and well developed HEENT normocephalic and head/scalp atraumatic Mouth: dry mucous membranes Eyes PERRL and EOMs intact bilaterally Neck no lymphadenopathy and supple Lymph Lymphatic: no lymphadenopathy noted Cardio regular rate, regular rhythm, S1 normal heart sound and S2 normal heart sound GI normal to inspection, nondistended, normoactive bowel sounds, soft to palpation, non-tender and non-distended Extremity normal capillary refill, no clubbing, cyanosis or edema and no calf tenderness General Extremity: no tenderness to palpation of joints or extremities Skin Skin Narrative: AV fistula in situ, with good thrill. General Skin Exam: no breakdown Neuro CN's II-XII intact bilaterally, no focal motor deficits, no sensory deficits noted and deep tendon reflexes 2+ bilaterally Motor Exam: strength 5/5 throughout and general weakness Psych thought process normal and cooperative Appearance: appropriate Assessment & Plan Assessment/Plan (1) Acute exacerbation of chronic obstructive pulmonary disease: PLAN: Plan Chronic GI bleed in the setting of anemia of chronic disease secondary to end- stage renal disease on dialysis/GERD ? She had an EGD back in September 2022 which showed a Dieulafoy's lesion as well as multiple gastric AVMs that were treated - Recent upper GI bleed yesterday that showed different bleeding etiology the proximal portion of the stomach and she had a polyp that was removed with bleeding stigmata at the base of her stomach. ? Continue with PPI, she had an EGD about 2 weeks ago that showed an ulcer with a visible vessel that was treated ? No signs of significant hemorrhage, vital signs are all stable and hemoglobin is 7.2 today ? She will need a capsule endoscopy as an outpatient ? Per family, her hemoglobin at dialysis was in the 10's in March and has steadily been dropping. - I will transfuse packed red blood cells today. Charges/Coding Visit Charges Inpatient E&M: 91403 Subs Hosp L3
--- NOTE | 2023-06-09 17:11 | PN.RENAL_ITS ---
Subjective Subjective Following for ESRD. The patient denies chest pain, shortness of breath, or nausea. She is tired. Objective Data Objective Data Vital Signs: Vital Signs Temp Pulse Resp BP Pulse Ox O2 Del Method O2 Flow Rate 98.4 F 63 18 138/56 H 94 Nasal Cannula 2 06/09/23 13:44 06/09/23 13:49 06/09/23 13:44 06/09/23 13:49 06/09/23 13:44 06/09/23 13:57 06/09/23 13:44 Oxygen Flow Rate (L/min) 2 Oxygen Delivery Method Nasal Cannula Weight: 80.07 kg Body Mass Index (BMI) 32.3 Intake & Output: Intake and Output for Last 24 Hours 06/07/23 06/08/23 06/09/23 23:59 23:59 23:59 Intake Total 244.75 / 244.75 1577.25 / 1677.25 763.75 / 763.75 Output Total 1999 Balance 244.75 / 244.75 -422.75 / -322.75 763.75 / 763.75 Lab / Micro Data 06/09/23 12:03 06/09/23 12:03 Labs: Laboratory Results - last 24 hr 06/07/23 17:10: Crossmatch See Detail 06/08/23 17:50: POC Glucose 111 H 06/08/23 22:08: POC Glucose 131 H 06/09/23 05:37: POC Glucose 130 H 06/09/23 12:03: WBC 15.4 H, RBC 2.54 L, Hgb 7.4 L, Hct 25.7 L, MCV 101.2 H D, MCH 29.1, MCHC 28.8 L, RDW Std Deviation 72.4 H, RDW Coeff of Becca 20.9 H, Plt Count 295, MPV 9.6, Neut % (Auto) Not Reportable, Absolute Neuts (auto) 1.3 L, Absolute Lymphs (auto) 0.61 L, Total Counted 100, Neutrophils % (Manual) 84 H, Band Neutrophils % 2, Lymphocytes % (Manual) 4 L, Monocytes % (Manual) 2, Eosinophils % (Manual) 3, Metamyelocytes % 4 H, Myelocytes % 1 H, Nucleated RBCs/100 WBC 1, Diff Path Review May foll, Platelet Estimate ADEQUATE, Polychromasia 1+, Basophilic Stippling 1+, Anisocytosis 2+, Sodium 136, Potassium 5.2 H, Chloride 102, Carbon Dioxide 27.0, Anion Gap 7, BUN 80 H, Creatinine 4.74 H, Estim Creat Clear Calc 9.90, Est GFR (MDRD) Af Amer 12 L, Est GFR (MDRD) Non-Af 10 L, BUN/Creatinine Ratio 16.9, Glucose 187 H, Calcium 7.1 L Micro: Microbiology 06/07/23 17:10 Stool Stool Occult Blood (SANJUANA) - Final Occult Blood Positive Physical Exam Const alert, oriented x3, no apparent distress and average body habitus General Appearance: cooperative and comfortable Orientation / Consciousness: oriented to person, oriented to place and oriented to time HEENT normocephalic Eyes General Eye: normal appearance of both eyes Neck no lymphadenopathy Lymph Lymphatic: no lymphadenopathy noted Resp normal respiratory effort, normal air movement, no use of accessory muscles and clear to auscultation bilaterally Cardio regular rate Cardio Narrative: Has harsh systolic murmur Rate: regular rate Heart Sounds: murmur systolic / harsh GI normal to inspection, nondistended, normoactive bowel sounds and non-tender Auscultation: normoactive bowel sounds Palpation: soft Extremity no clubbing, cyanosis or edema Skin no rashes or lesions noted Neuro Sensorium / Orientation: awake, alert, oriented to person, oriented to place and oriented to time Assessment & Plan Assessment/Plan (1) ESRD on dialysis: PLAN: Plan Impression/Plan: The patient is a 77-year-old woman with past history of type 2 diabetes mellitus, hypertension, CAD, HFpEF, anemia, GERD, ESRD, and anxiety disorder. The patient is admitted to hospital on 06/07/2023 with acute blood loss anemia due to GI bleed. Nephrology is following for ESRD and dialysis management. ESRD. The patient dialyzes on MWF schedule at [facility] in [place]. No need for dialysis today. Will schedule patient for dialysis first thing in the morning on 06/11/2023. Hypertension. BP is reasonably controlled on current medical therapy. Further ultrafiltration with dialysis should help control BP as well. Anemia. Hemoglobin remains low but overall stable at 7.4 g/dL today. Hemoglobin was as low as 6.4 g/dL on 06/07/2023 on admission. Continue KALPANA with dialysis. CKD?mineral bone disease. Continue sevelamer with meals. Will recheck calcium/phosphorus control as outpatient at dialysis unit.
[2023-06-09] MEDS: Doxazosin 4 MG Tablet 8 MG PO (20:56)
[2023-06-09] MEDS: Amitriptyline 100 MG Tablet PO (20:56)
[2023-06-09] MEDS: Pramipexole Di-HCl 0.25 MG Tablet 0.75 MG PO (20:56)
[2023-06-10] VITALS (27 sets, daily range): BP systolic 87–162; BP diastolic 39–61; PULSE 49–103; RESP 14–24; TEMP 35.9–36.6; O2SAT 86–100
--- NOTE | 2023-06-10 03:01 | NURSING ---
pt refusing q6 blood sugar checks
[2023-06-10] MEDS: hydrALAZINE 50 MG Tablet 100 MG PO (05:15)
[2023-06-10] MEDS: Budesonide Respules 0.5 MG/2 ML AMPUL.NEB. INHALATION ×2 (06:53→19:31)
[2023-06-10 07:03] LABS: Hematocrit 30.7 % (37-47); Hemoglobin 9.4 g/dL (12.0-15.0); Mean Corp Hgb Conc 30.6 g/dL (32-36); Mean Corpuscular Hgb 30.1 pg (27.0-32.0); Mean Corpuscular Volume 98.4 fL (81-99); Mean Platelet Vol. 9.8 fl (6.2-12.0); POSITIVE COUNT YES; POSITIVE MORPHOLOGY YES; Platelet Count 280 K/mm3 (150-450); RBC Distribution Width CV 19.9 % (11.6-14.6); RBC Distribution Width SD 63.5 fl (35.1-43.9); Red Blood Count 3.12 M/mm3 (4.2-5.4)
[2023-06-10 07:10] LABS: Differential Indicated MANUAL DIFF; White Blood Count 15.7 K/mm3 (4.4-11.0)
[2023-06-10 08:01] LABS: Anisocytosis 2+; Eosinophil 3 % (0-5); Lymphocyte 4 % (19-41); Metamyelocyte 2 % (0-1); Monocyte 3 % (0-10); Myelocyte 1 % (0-0); Neutrophil-Band 2 % (0-5); Neutrophil-Segmented 85 % (47-70); Nucleated Red Bld Cells,Manual 1 % (0-5); Polychromasia 1+; Total Cells Counted 100 (MANUAL DIFF)
[2023-06-10 08:02] LABS: Absolute Neutrophil Count 13.6 X10^3/uL (2.0-7.7); Platelet Estimate ADEQUATE (ADEQ)
[2023-06-10 08:03] LABS: Absolute Lymphocyte Count 0.62 X10^3/uL (0.83-4.51)
[2023-06-10] MEDS: SEVELAMER CARBONATE 800 MG TABLET PO (08:12)
[2023-06-10] MEDS: Pramipexole Di-HCl 0.5 MG Tablet PO (08:12)
[2023-06-10] MEDS: Bumetanide 2 MG Tablet PO (08:13)
[2023-06-10] MEDS: Carvedilol 12.5 MG Tablet PO (08:13)
[2023-06-10] MEDS: Isosorbide Mononitrate 60 MG Tablet PO (08:13)
[2023-06-10] MEDS: Atorvastatin Calcium 80 MG Tablet PO (08:14)
[2023-06-10] MEDS: amLODIPine 10 MG Tablet PO (08:14)
[2023-06-10 08:17] LABS: Anion Gap 9 (5-15); BUN 85 mg/dL (7-18); BUN/Creat Ratio 15.3 RATIO (10-20); Calcium,Total 6.8 mg/dL (8.5-10.1); Chloride 102 mmol/L (98-107); Creatinine, Serum 5.56 mg/dL (0.55-1.02); EST Glomerular Filtration Rate 8 mL/min (>60); Est Glom Filt Rate - Afr Amer 10 mL/min (>60); Estimated Creatinine Clearance 8.44 ml/min; Glucose 147 mg/dL (74-106); Sodium Level 134 mmol/L (136-145)
[2023-06-10] MEDS: Pantoprazole Sodium 40 MG in 0.9% Normal Saline (100mL MB+) 100 ML 330 MG IV (09:36)
[2023-06-10] MEDS: Ceftriaxone 1 GM/50 ML BAG IV (09:38)
--- NOTE | 2023-06-10 10:00 | NURSING ---
Pt up to chair with [employer]. States that she is feeling dizzy and nauseated. Vitals checked, BP 136/56 HR 59 Oxygen 93% on 2L, feet elevated at this time. Gave zofran for nausea, advised physician of symptoms.
[2023-06-10] MEDS: Ondansetron 4 MG/2 ML Vial IV (10:03)
--- NOTE | 2023-06-10 10:26 | PN_ITS ---
Subjective Subjective Patient seen and examined. She had no active complaints today. I was notified by her nurse that at this morning the patient had a brief episode of dizziness which resolved. Hemoglobin came up to 9.4 today. Review of systems otherwise negative. Objective Data Objective Data Vital Signs: Vital Signs Temp Pulse Resp BP Pulse Ox O2 Del Method O2 Flow Rate 97.7 F L 78 20 H 162/60 H 96 Nasal Cannula 2 06/10/23 05:10 06/10/23 06:53 06/10/23 06:53 06/10/23 05:15 06/10/23 06:53 06/10/23 08:15 06/10/23 08:15 Oxygen Flow Rate (L/min) 2 Oxygen Delivery Method Nasal Cannula Weight: 176 lb 8.386 oz Body Mass Index (BMI) 32.3 Intake & Output: Intake and Output for Last 24 Hours 06/08/23 06/09/23 06/10/23 23:59 23:59 23:59 Intake Total 1577.25 / 1677.25 995.75 / 995.75 160 / 160 Output Total 1999 Balance -422.75 / -322.75 995.75 / 995.75 160 / 160 Lab / Micro Data 06/10/23 05:35 06/10/23 05:35 Labs: Laboratory Results - last 24 hr 06/07/23 17:10: Crossmatch See Detail 06/09/23 12:03: WBC 15.4 H, RBC 2.54 L, Hgb 7.4 L, Hct 25.7 L, MCV 101.2 H D, MCH 29.1, MCHC 28.8 L, RDW Std Deviation 72.4 H, RDW Coeff of Becca 20.9 H, Plt Count 295, MPV 9.6, Neut % (Auto) Not Reportable, Absolute Neuts (auto) 1.3 L, Absolute Lymphs (auto) 0.61 L, Total Counted 100, Neutrophils % (Manual) 84 H, Band Neutrophils % 2, Lymphocytes % (Manual) 4 L, Monocytes % (Manual) 2, Eosinophils % (Manual) 3, Metamyelocytes % 4 H, Myelocytes % 1 H, Nucleated RBCs/100 WBC 1, Diff Path Review July, Platelet Estimate ADEQUATE, Polychromasia 1+, Basophilic Stippling 1+, Anisocytosis 2+, Sodium 136, Potassium 5.2 H, Chloride 102, Carbon Dioxide 27.0, Anion Gap 7, BUN 80 H, Creatinine 4.74 H, Estim Creat Clear Calc 9.90, Est GFR (MDRD) Af Amer 12 L, Est GFR (MDRD) Non-Af 10 L, BUN/Creatinine Ratio 16.9, Glucose 187 H, Calcium 7.1 L 06/10/23 05:35: WBC 15.7 H, RBC 3.12 L, Hgb 9.4 L, Hct 30.7 L, MCV 98.4, MCH 30.1, MCHC 30.6 L D, RDW Std Deviation 63.5 H, RDW Coeff of Becca 19.9 H, Plt Count 280, MPV 9.8, Neut % (Auto) Not Reportable, Absolute Neuts (auto) 13.6 H, Absolute Lymphs (auto) 0.62 L, Total Counted 100, Neutrophils % (Manual) 85 H, Band Neutrophils % 2, Lymphocytes % (Manual) 4 L, Monocytes % (Manual) 3, Eosinophils % (Manual) 3, Metamyelocytes % 2 H, Myelocytes % 1 H, Nucleated RBCs /100 WBC 1, Diff Path Review May foll, Platelet Estimate ADEQUATE, Polychromasia 1+, Anisocytosis 2+, Sodium 134 L, Potassium 5.0, Chloride 102, Carbon Dioxide 23.0, Anion Gap 9, BUN 85 H, Creatinine 5.56 H, Estim Creat Clear Calc 8.44, Est GFR (MDRD) Af Amer 10 L, Est GFR (MDRD) Non-Af 8 L, BUN/Creatinine Ratio 15.3, Glucose 147 H, Calcium 6.8 L Micro: Microbiology 06/07/23 17:10 Stool Stool Occult Blood (SANJUANA) - Final Occult Blood Positive Physical Exam Const alert, oriented x3 and no apparent distress Constitutional Narrative: frail General Appearance: cooperative and well developed HEENT normocephalic and head/scalp atraumatic Eyes PERRL and EOMs intact bilaterally Neck no lymphadenopathy and supple Lymph Lymphatic: no lymphadenopathy noted Resp normal respiratory effort, normal air movement and clear to auscultation bilaterally Resp Narrative: On 2 L of oxygen chronically. Cardio regular rate, regular rhythm, S1 normal heart sound and S2 normal heart sound GI normal to inspection, nondistended, normoactive bowel sounds, soft to palpation, non-tender and non-distended Extremity normal capillary refill, no clubbing, cyanosis or edema and no calf tenderness General Extremity: no tenderness to palpation of joints or extremities Skin Skin Narrative: LUE AV fistula in situ, with good thrill. General Skin Exam: no breakdown Neuro CN's II-XII intact bilaterally, no focal motor deficits, no sensory deficits noted and deep tendon reflexes 2+ bilaterally Motor Exam: strength 5/5 throughout and general weakness Psych thought process normal and cooperative Appearance: appropriate Assessment & Plan Assessment/Plan (1) ABLA (acute blood loss anemia): (2) Occult gastrointestinal hemorrhage: PLAN: Plan #Acute on chronic anemia due to acute blood loss from GI bleed * Hb was 6.4 on admission. * had EGD which showed grade 2 esophageal varices and oozing gastric ulcer with pigmented material which was injected and treated with heater probe as well as a single bleeding angiodysplastic lesion in the duodenum which was treated with argon plasma coagulation. She also had a single gastric polyp which was resected. * on IV pantoprazole * Hemoglobin was 7.4 yesterday but is now back to 9.4. GI on board. * * #CAD s/p CABG x 4: On Coreg and statin. Aspirin on hold. #Heart failure preserved ejection fraction: On Coreg and statin as well as Bumex. Has known EF of 60%. #Hypertension: On Imdur and hydralazine as well as Coreg, amlodipine and dexamethasone as well as Bumex. IV hydralazine as needed #Hyperlipidemia: On statin #ESRD with mild hyperkalemia: * On hemodialysis Sunday. * She says her Sunday dialysis has been moved to Sunday on account of her dialysis center and last known being closed tomorrow for there are clips. * Patient will therefore be kept in hospital for her to have dialysis tomorrow and then she can be discharged. #Chronic respiratory failure due to COPD: on 2L of oxygen by nasal canula. Breathing treatment with bronchodilators. Titrate oxygen to maintain sats .905 #Anxiety and depression: on elavil Type 2 diactes mellitus: on lantus. ISS. Accuchecks ACHS #Restless leg syndrome: on mirapex DVT prophylaxis: SCDs Disposition: Discharge tomorrow after dialysis. Charges/Coding Visit Charges Inpatient E&M: 39267 Subs Hosp L2
--- NOTE | 2023-06-10 12:50 | NURSING ---
Notified physician of hematemesis. New orders received.
[2023-06-10] MEDS: 0.9% Normal Saline (500mL Bag) 500 ML 999 ML IV (12:55)
[2023-06-10] MEDS: 0.9% Saline Lock 10 ML Syringe IV ×2 (13:02→22:49)
[2023-06-10 13:14] LABS: Differential Indicated MANUAL DIFF; Hemoglobin 7.2 g/dL (12.0-15.0); Mean Corpuscular Hgb 29.8 pg (27.0-32.0); Mean Corpuscular Volume 99.2 fL (81-99); Mean Platelet Vol. 9.5 fl (6.2-12.0); POSITIVE COUNT YES; POSITIVE MORPHOLOGY YES; Platelet Count 239 K/mm3 (150-450); RBC Distribution Width CV 19.9 % (11.6-14.6); RBC Distribution Width SD 65.2 fl (35.1-43.9); Red Blood Count 2.42 M/mm3 (4.2-5.4); White Blood Count 16.3 K/mm3 (4.4-11.0)
[2023-06-10] MEDS: Pantoprazole Sodium 80 MG in 0.9% Normal Saline (100mL Bag) 80 ML 10 MG CONT INF (13:16)
[2023-06-10 13:39] LABS: Anisocytosis 1+; Eosinophil 1 % (0-5); Lymphocyte 8 % (19-41); Metamyelocyte 5 % (0-1); Monocyte 3 % (0-10); Myelocyte 1 % (0-0); Neutrophil-Segmented 82 % (47-70); Nucleated Red Bld Cells,Manual 1 % (0-5); Platelet Estimate ADEQUATE (ADEQ); Polychromasia 1+; Total Cells Counted 100 (MANUAL DIFF)
[2023-06-10 13:40] LABS: Absolute Neutrophil Count 13.3 X10^3/uL (2.0-7.7)
--- NOTE | 2023-06-10 14:14 | PN.GI_ITS ---
Subjective Subjective I was called to evaluate the patient due to hematemesis. She had 2 episodes of coffee-ground emesis. Her blood pressure has been stable in the 130s to 140s with a heart rate ranging from 60s to 80s. As per the family at the bedside she has been very lethargic and has been having an intermittent cough with some mild shortness of breath over the last 3 weeks. She has been admitted to the hospital and been checked for community-acquired pneumonia's. She has been on multiple rounds of antibiotics and is currently on ceftriaxone. As per her son she has been getting aspirin and prednisone therapy. She does sound a little bit more crackly than previous as per nursing Objective Data Objective Data Vital Signs: Vital Signs Temp Pulse Resp BP Pulse Ox O2 Del Method O2 Flow Rate 97.6 F L 63 16 117/53 L 98 Nasal Cannula 2 06/10/23 12:12 06/10/23 12:12 06/10/23 12:12 06/10/23 12:12 06/10/23 12:12 06/10/23 12:12 06/10/23 10:41 Oxygen Flow Rate (L/min) 2 Oxygen Delivery Method Nasal Cannula Weight: 176 lb 8.386 oz Body Mass Index (BMI) 32.3 Intake & Output: Intake and Output for Last 24 Hours 06/08/23 06/09/23 06/10/23 23:59 23:59 23:59 Intake Total 1577.25 / 1677.25 995.75 / 995.75 660 / 660 Output Total 1999 / 1999 Balance -422.75 / -322.75 995.75 / 995.75 660 / 660 Lab / Micro Data 06/10/23 13:10 06/10/23 05:35 Labs: Laboratory Results - last 24 hr 05/11/23 17:10: Crossmatch See Detail 06/07/23 17:10: Crossmatch See Detail 06/10/23 05:35: WBC 15.7 H, RBC 3.12 L, Hgb 9.4 L, Hct 30.7 L, MCV 98.4, MCH 30.1, MCHC 30.6 L D, RDW Std Deviation 63.5 H, RDW Coeff of Becca 19.9 H, Plt Count 280, MPV 9.8, Neut % (Auto) Not Reportable, Absolute Neuts (auto) 13.6 H, Absolute Lymphs (auto) 0.62 L, Total Counted 100, Neutrophils % (Manual) 85 H, Band Neutrophils % 2, Lymphocytes % (Manual) 4 L, Monocytes % (Manual) 3, Eosinophils % (Manual) 3, Metamyelocytes % 2 H, Myelocytes % 1 H, Nucleated RBCs/100 WBC 1, Diff Path Review May foll, Platelet Estimate ADEQUATE, Polychromasia 1+, Anisocytosis 2+, Sodium 134 L, Potassium 5.0, Chloride 102, Carbon Dioxide 23.0, Anion Gap 9, BUN 85 H, Creatinine 5.56 H, Estim Creat Clear Calc 8.44, Est GFR (MDRD) Af Amer 10 L, Est GFR (MDRD) Non-Af 8 L, BUN/Creatinine Ratio 15.3, Glucose 147 H, Calcium 6.8 L 06/10/23 13:10: WBC 16.3 H, RBC 2.42 L, Hgb 7.2 L, Hct 24.0 L, MCV 99.2 H, MCH 29.8, MCHC 30.0 L, RDW Std Deviation 65.2 H, RDW Coeff of Becca 19.9 H, Plt Count 239, MPV 9.5, Neut % (Auto) Not Reportable, Absolute Neuts (auto) 13.3 H, Absolute Lymphs (auto) 1.30, Total Counted 100, Neutrophils % (Manual) 82 H, Lymphocytes % (Manual) 8 L, Monocytes % (Manual) 3, Eosinophils % (Manual) 1, Metamyelocytes % 5 H, Myelocytes % 1 H, Nucleated RBCs/100 WBC 1, Diff Path Review July foll, Platelet Estimate ADEQUATE, Polychromasia 1+, Anisocytosis 1+ Micro: Microbiology 06/07/23 17:10 Stool Stool Occult Blood (SANJUANA) - Final Occult Blood Positive Physical Exam Const alert, oriented x3 and no apparent distress Constitutional Narrative: frail General Appearance: cooperative and well developed HEENT normocephalic and head/scalp atraumatic Eyes PERRL and EOMs intact bilaterally Neck no lymphadenopathy and supple Lymph Lymphatic: no lymphadenopathy noted Resp normal respiratory effort, normal air movement and clear to auscultation bilaterally Resp Narrative: On 2 L of oxygen chronically. Effort and Inspection: able to speak in complete sentences and symmetric chest movement Cardio regular rate, regular rhythm, S1 normal heart sound and S2 normal heart sound GI normal to inspection, nondistended, normoactive bowel sounds, soft to palpation, non-tender and non-distended Extremity normal capillary refill, no clubbing, cyanosis or edema and no calf tenderness General Extremity: no tenderness to palpation of joints or extremities Skin Skin Narrative: LUE AV fistula in situ, with good thrill. General Skin Exam: no breakdown Neuro CN's II-XII intact bilaterally, no focal motor deficits, no sensory deficits noted and deep tendon reflexes 2+ bilaterally Motor Exam: strength 5/5 throughout and general weakness Psych thought process normal and cooperative Appearance: appropriate Assessment & Plan Assessment/Plan (1) Acute exacerbation of chronic obstructive pulmonary disease: PLAN: Plan Chronic GI bleed in the setting of anemia of chronic disease secondary to end- stage renal disease on dialysis/GERD ? She had an EGD back in September 2022 which showed a Dieulafoy's lesion as well as multiple gastric AVMs that were treated - Recent upper GI bleed yesterday that showed different bleeding etiology the proximal portion of the stomach and she had a polyp that was removed with bleeding stigmata at the base of her stomach. ? Continue with PPI, she had an EGD about 2 weeks ago that showed an ulcer with a visible vessel that was treated ? No signs of significant hemorrhage, vital signs are all stable and hemoglobin is 7.2 today ? She will need a capsule endoscopy as an outpatient ? Per family, her hemoglobin at dialysis was in the 10's in March and has steadily been dropping. - I will transfuse packed red blood cells today. -06/10/23-upper GI bleed from multiple sources including recent gastric ulcer bleed, possible Lidia-Connor tear, erosive esophagitis in the setting of a spirin and prednisone therapy. Her hemoglobin has gone down to 7.4 and was up to 9.4 after getting 2 units of packed red blood cells. I will give her 2 more units of packed red blood cells and schedule her for emergent endoscopy. Charges/Coding Visit Charges Inpatient E&M: 33502 Subs Hosp L3
--- NOTE | 2023-06-10 16:07 | PCM.PN.BLA ---
Progress Note A CODE BLUE was called because patient was down in the endoscopy suite. Apparently after the endoscopic probe was inserted, patient became unresponsive and hypotensive. Patient did maintain a pulse. Patient was intubated on account of her being unresponsive and is being required for the upper endoscopy. I spoke to patient's family about her CODE STATUS being DNR CCA no intubation. She had however been intubated on account of requiring intubation for the EGD. Family wanted to respect patient's wishes for being DNR CCA but understood that since she was currently intubated, she would be admitted to the ICU. In line with her wishes no CPR would be done if she did have cardiac arrest. If she is unable to be extubated, family would make the decision about whether to withdraw care at that point. Visit Charges Inpatient E&M: 68856 PROLNG IP/OBS E/M EA 15 MIN
[2023-06-10] MEDS: 0.9% Normal Saline (Pres. free 10 ML Vial ×2 (16:17→16:30)
[2023-06-10] MEDS: Epinephrine (1 mg/ml) 1 MG/ML VIAL ×2 (16:17→16:30)
--- NOTE | 2023-06-10 16:44 | OP.EGD_ITS ---
Patient Name: Shante Trujillo Procedure Date: 06/10/2023 2:44 PM Date of : 1945 Age: 77 Procedure: Upper GI endoscopy Indications: Hematemesis Providers: Kameron Chan DO Medicines: Monitored Anesthesia Care Patient Profile: This is a 77 year old female. Refer to note in patient chart for documentation of history and physical. Patient has symptoms. Her most recent EGD for treatment of bleeding was recently. Complications: No immediate complications. Procedure: Pre-Anesthesia Assessment: - Prior to the procedure, a History and Physical was performed, and patient medications and allergies were reviewed. The patient is competent. The risks and benefits of the procedure and the sedation options and risks were discussed with the patient. All questions were answered and informed consent was obtained. Patient identification and proposed procedure were verified by the physician. Mental Status Examination: alert and oriented. Airway Examination: normal oropharyngeal airway and neck mobility. Respiratory Examination: clear to auscultation. CV Examination: normal. Prophylactic Antibiotics: The patient does not require prophylactic antibiotics. Prior Anticoagulants: The patient has taken no anticoagulant or antiplatelet agents. ASA Grade Assessment: IV - A patient with severe systemic disease that is a constant threat to life. After reviewing the risks and benefits, the patient was deemed in satisfactory condition to undergo the procedure. The anesthesia plan was to use monitored anesthesia care (MAC). Immediately prior to administration of medications, the patient was re-assessed for adequacy to receive sedatives. The heart rate, respiratory rate, oxygen saturations, blood pressure, adequacy of pulmonary ventilation, and response to care were monitored throughout the procedure. The physical status of the patient was re-assessed after the procedure. After obtaining informed consent, the endoscope was passed under direct vision. Throughout the procedure, the patient's blood pressure, pulse, and oxygen saturations were monitored continuously. The Endoscope was introduced through the mouth, and advanced to the second part of duodenum. The upper GI endoscopy was accomplished without difficulty. The patient tolerated the procedure well. Scope In: 3:32:02 PM Scope Out: 4:33:27 PM Total Procedure Duration Time 1 hour 1 minute 25 seconds Findings: Grade I varices were found in the upper third of the esophagus. They were 5 mm in largest diameter. Red blood was found in the entire examined stomach. One oozing cratered gastric ulcer with a visible vessel was found in the cardia. The lesion was 6 mm in largest dimension. Area was successfully injected with 7 mL of a 0.1 mg/mL solution of epinephrine for drug delivery. Coagulation for hemostasis using heater probe was successful. Estimated blood loss was minimal. To stop active bleeding, hemostatic spray was deployed. A single spray was applied. There was no bleeding at the end of the procedure. One spurting cratered gastric ulcer with a visible vessel was found in the prepyloric region of the stomach. The lesion was 6 mm in largest dimension. Area was successfully injected with 10 mL of a 0.1 mg/mL solution of epinephrine for drug delivery. Coagulation for hemostasis using heater probe was successful. To prevent bleeding post-intervention, five hemostatic clips were successfully placed. Clip displayer: Entrenarme. There was no bleeding at the end of the procedure. To stop active bleeding, hemostatic spray was deployed. A single spray was applied. There was no bleeding at the end of the procedure. No gross lesions were noted in the first portion of the duodenum. Impression: - Grade I esophageal varices. - Red blood in the entire stomach. - Oozing gastric ulcer with a visible vessel. Injected. Treated with a heater probe. hemostatic spray applied. - Spurting gastric ulcer with a visible vessel. Injected. Treated with a heater probe. Clips were placed. Clip displayer: Entrenarme. hemostatic spray applied. - No gross lesions in the first portion of the duodenum. - No specimens collected. Recommendation: - Return patient to ICU for ongoing care. - NPO. - Continue present medications. Procedure Code(s): --- Professional --- 86712, Esophagogastroduodenoscopy, flexible, transoral; with control of bleeding, any method 30989, 59,51, Esophagogastroduodenoscopy, flexible, transoral; with directed submucosal injection(s), any substance CPT copyright 2021 [employer]. All rights reserved. The codes documented in this report are preliminary and upon data coder operator review may be revised to meet current compliance requirements. Kameron Chna DO 06/10/2023 4:43:16 PM This report has been signed electronically. Number of Addenda: 0 Note Initiated On: 06/10/2023 2:44 PM
--- NOTE | 2023-06-10 16:44 | OP.CCLET_ITS ---
06/10/2023 Levi Laird Re : Upper GI endoscopy procedure for Shante Fuenteshaider Laird This procedure was performed on Saturday, June 10, 2023. My impressions and recommendations are as follows: Impressions : - Grade I esophageal varices. - Red blood in the entire stomach. - Oozing gastric ulcer with a visible vessel. Injected. Treated with a heater probe. hemostatic spray applied. - Spurting gastric ulcer with a visible vessel. Injected. Treated with a heater probe. Clips were placed. Clip file machine operator: V Wave. hemostatic spray applied. - No gross lesions in the first portion of the duodenum. - No specimens collected. Recommendations : - Return patient to ICU for ongoing care. - NPO. - Continue present medications. My findings are described in the full procedure note, which is enclosed. If I can be of further assistance, please feel free to contact me at . Sincerely, Kameron Chan, 06/10/2023 4:43:16 PM This report has been signed electronically.
[2023-06-10] MEDS: Propofol 10MG/Ml 1,000 MG/100 ML Bottle 4.8 MG CONT INF (17:44)
[2023-06-10] MEDS: fentaNYL drip 100 ML 5 MCG CONT INF (17:46)
[2023-06-10 17:47] LABS: Allen Test Positive; Base Excess -5 mmol/L (-2 to +2); Bicarbonate 22.8 mmol/L (22-26); Blood Gas Specimen Type ART; Mode AC; O2 Delivery Device Adult Vent; PEEP 5; PO2 300 mmHG (75-100); RR 14; SITE L Radial; SO2 100 % (95-99); Time Given 17:43:45; Total Carbon Dioxide 25 mmol/L; pCO2 59.4 mmHg (35-45); pH 7.19 (7.35-7.45)
--- NOTE | 2023-06-10 17:55 | RAD_ITS ---
STUDY: XR Chest 2 Views 06/10/2023 5:47 PM REASON FOR EXAM: Female, 77 years old. ETT placement COMPARISON: 06.07.23 TECHNIQUE: XR Chest 2 Views FINDINGS: There is no demonstrated pleural abnormality. There are multiple median sternotomy wires. ET tube and NG tube tube noted. ET tube in good position. NG tube extends off the field of view. There is no pneumothorax. Right vascular line. The tip is in the superior vena caval - atrial junction. Enlarged heart size. Normal mediastinum. Normal james. Prominent appearing increased interstitial lung markings. Normal visualized pulmonary arteries. There is atherosclerotic calcification of the aortic arch with tortuosity. There are diffuse degenerative changes of the visualized thoracic spine. There is degenerative osteoarthritis of the bilateral shoulders. There are no acute findings of the upper abdomen. RAD/Chest 1 View (Portable) IMPRESSION: There are no acute findings. Electronically Signed: Evelio Ross MD at 18:10 EDT ,
--- NOTE | 2023-06-10 19:30 | CON.PCM.CC_ITS ---
HPI Consult Data Date of Consult: 06/10/23 HPI Narrative HPI Narrative: 77yo F w/ COPD on home 2L NC, h/o GI bleed, recent COVID-19, ESRD on HD, CAD s/p CABG, HFpEF, HTN, DM2, anxiety/depression, RLS who initially presented 06/06 for low Hgb. She apparently had increased CAMARENA, fatigue after being put back on aspirin, and outpatient testing showed Hgb 6 and she was told to come to ED. She was evaluated by GI service who performed initial EGD 06/07 with evidence of bleeding gastric ulcer and duodenal angiodysplasia treated with cautery (also with G2 EV). She had improved after this, however then earlier today she developed recurrent hematemesis and so was taken back for urgent EGD. She became unresponsive during start of EGD (reportedly this was even prior to any sedatives being given), and so code blue was called and she was emergently intubated. She did not actually lose pulse by report. Repeat EGD showed spurting gastric ulcer and another oozing gastric ulcer that were treated with cautery/clipping. She was brought back to ICU intubated. Of note pt was actually DNR/DNI code status, however required intubation to facilitate repeat EGD in setting of unresponsiveness. [facility] Medical History (Updated 06/08/23 @ 11:[address] Deena Vera MD) (HFpEF) heart failure with preserved ejection fraction Anemia Anemia in chronic kidney disease Anxiety Arthritis CAD (coronary artery disease) Carotid artery stenosis Chronic hyponatremia Chronic respiratory failure with hypoxia COPD (chronic obstructive pulmonary disease) Diabetes mellitus type 2 in obese Dyslipidemia ESRD on dialysis Essential hypertension History of blood transfusion History of renal dialysis History of upper gastrointestinal bleeding Iron deficiency anemia Leg cramps Leukocytosis Morbid obesity with BMI of 40.0-44.9, adult Non-rheumatic mitral regurgitation Non-rheumatic tricuspid valve insufficiency On home oxygen therapy ELAINE (obstructive sleep apnea) Pleural effusion Pulmonary hypertension Restless leg syndrome Secondary pulmonary hypertension Shortness of breath on exertion Smoking greater than 40 pack years Valvular heart disease Wears dentures Wears glasses Home Medications amitriptyline 100 mg tablet 100 mg PO QHS mental health 04/09/13 [History Last Taken 05/13/22 21:00] atorvastatin 80 mg tablet 80 mg PO DAILY CHOLESTEROL 10/25/17 [History Last Taken 05/13/22 21:30] amlodipine 10 mg tablet 10 mg PO DAILY BP 06/01/18 [History Last Taken 05/14/22 08:30] doxazosin 8 mg tablet 8 mg PO QHS blood pressure 08/20/18 [History Last Taken 05/13/22 21:30] omeprazole 40 mg capsule,delayed release 40 mg PO DAILY gerd 08/20/18 [History Last Taken 05/13/22 21:30] hydralazine 100 mg tablet 100 mg PO TID diuretic 01/01/19 [History Last Taken 05/14/22 14:00] bumetanide 2 mg tablet 2 mg PO DAILY diuretic 03/14/19 [History Last Taken 05/14/22 08:30] nitroglycerin 0.4 mg sublingual tablet 0.4 mg sublingual Q5M PRN CHEST PAIN 03/14/19 [History Last Taken Unknown] albuterol sulfate 90 mcg/actuation aerosol inhaler (ProAir HFA) 2 puff inhalation Q6H PRN sob 09/30/20 [History Last Taken 05/13/22 08:30] ropinirole 0.5 mg tablet 1.5 mg PO .COMPLEX restless legs 07/07/21 [History Last Taken 05/13/22 21:30] acetaminophen 500 mg tablet (Acetaminophen Extra Strength) 1,000 mg PO DAILY PRN Pain 05/04/22 [History Last Taken 05/14/22 14:00] ascorbic acid (vitamin C) 500 mg tablet 500 mg PO DAILY SUPPLEMENT 05/04/22 [History Last Taken 05/14/22 08:30] sevelamer carbonate 800 mg tablet 800 mg PO TIDCM PHOSPHATE 05/04/22 [History Last Taken 05/14/22 14:00] isosorbide mononitrate 60 mg tablet,extended release 24 hr 60 mg PO DAILY heart 05/14/22 [History Last Taken 05/13/22 21:30] albuterol sulfate 1.25 mg/3 mL solution for nebulization 1.25 mg (3 mL) inh alation 4X/DAY Wheezing #360 mL 03/20/23 [Rx Last Taken Unknown] budesonide-formoterol HFA 160 mcg-4.5 mcg/actuation aerosol inhaler (Symbicort) 2 inh inhalation BID breathing #3 ea 05/01/23 [Rx Last Taken Unknown] carvedilol 12.5 mg tablet 12.5 mg PO BID bp #180 tabs 05/17/23 [Rx Last Taken Unknown] guaifenesin 1,200 mg tablet, extended release 12 hr 1,200 mg PO Q12H PRN congestion 05/17/23 [History Last Taken Unknown] prednisone 10 mg tablet 10 mg PO UD #30 tabs 06/02/23 [Rx Last Taken Unknown] Allergy/AdvReac Type Severity Reaction Status Date / Time Penicillins Allergy Hives Verified 06/07/23 16:12 adhesive tape AdvReac Other Verified 06/07/23 16:12 Family History Mother Heart disease Father No problems noted. Surgical History H/O four vessel coronary artery bypass graft (~04/16/13) Hx of colonoscopy Hx of esophagogastroduodenoscopy Social History household members: family Smoking Status: Former smoker quit date: 03/05/10 how long ago did patient quit smoking: Quit ~ 13 yrs prior, smoked 3 ppd since in her 20s until quit. alcohol intake: current alcohol intake frequency: holidays/special occasions only substance use type: does not use ROS ROS Narrative Unable to obtain as pt intubated Review of Systems ROS Unobtainable: due to endotracheal tube Objective Data Objective Data Vital Signs: Vital Signs Last response Temperature 36.4 C L 06/10/23 17:45 Temperature Source Temporal 06/10/23 17:45 Pulse Rate 88 06/10/23 19:00 Pulse Strength Normal (2+) 06/09/23 08:13 Respiratory Rate 14 06/10/23 19:00 Respiratory Effort Mechanically Ventilated 06/10/23 17:57 Respiratory Depth Normal 06/10/23 17:57 Respiratory Pattern Normal 06/10/23 17:57 Blood Pressure 95/46 L 06/10/23 19:00 Blood Pressure Mean 62 06/10/23 19:00 Blood Pressure Source Monitor 06/10/23 19:00 Blood Pressure Position Semi-Fowlers 06/10/23 19:00 Blood Pressure Location Right Arm 06/10/23 19:00 Baseline BP 160/61 06/10/23 17:02 Pulse Ox 93 06/10/23 19:00 Oxygen Delivery Method Mechanical Ventilator 06/10/23 19:00 Oxygen Flow Rate (L/min) 2 06/10/23 15:00 Fraction of Inspired Oxygen (FIO2) 50 06/10/23 19:00 I&O: I&O Last 24 Hours 06/09/23 06/10/23 06/10/23 23:59 11:59 23:59 Intake Total 407 / 995.75 160 / 1469.65 1309.65 / 1469.65 Output Total 100 / 100 Balance 407 / 995.75 160 / 1369.65 1209.65 / 1369.65 I&O: Total Stay 06/07/23 16:11 thru 06/10/23 19:00 Intake Total 4287.40 Output Total 2100 Balance 2187.40 Current Meds Ordered / Administered: Current meds ordered / Administered Generic Name Dose Route Start Last Admin Trade Name Freq PRN Reason Stop Dose Admin Acetaminophen 650 mg 06/07/23 20:29 Acetaminophen 325 Mg Tablet PO Q4H PRN PRN Fever, pain 1-12/12 Albuterol Sulfate 2.5 mg 06/07/23 20:29 06/08/23 20:48 Albuterol 2.5 Mg/3 Ml Vial.Neb. INHALATION 2.5 mg Q2H PRN PRN Administration Dyspnea, wheezing Amitriptyline HCl 100 mg 06/07/23 22:00 06/09/23 20:56 Amitriptyline 100 Mg Tablet PO 100 mg QHS EPHRAIM Administration Amlodipine Besylate 10 mg 06/08/23 10:00 06/10/23 08:14 Amlodipine 10 Mg Tablet PO 10 mg DAILY EPHRAIM Administration Protocol Atorvastatin Calcium 80 mg 06/08/23 10:00 06/10/23 08:14 Atorvastatin Calcium 80 Mg Tablet PO 80 mg DAILY EPHRAIM Administration Budesonide 0.5 mg 06/07/23 20:45 06/10/23 06:53 Budesonide Respules 0.5 Mg/2 Ml Ampul.Neb. INHALATION 0.5 mg Q12H.RT EPHRAIM Administration Bumetanide 2 mg 06/08/23 10:00 06/10/23 08:13 Bumetanide 2 Mg Tablet PO 2 mg DAILY EPHRAIM Administration Protocol Carvedilol 12.5 mg 06/07/23 22:00 06/10/23 08:13 Carvedilol 12.5 Mg Tablet PO 12.5 mg BID EPHRAIM Administration Protocol Doxazosin Mesylate 8 mg 06/07/23 22:00 06/09/23 20:56 Doxazosin 4 Mg Tablet PO 8 mg QHS EPHRAIM Administration Hydralazine HCl 100 mg 06/07/23 22:00 06/10/23 15:02 Hydralazine 50 Mg Tablet PO Not Given TID EPHRAIM Hydralazine HCl 10 mg 06/07/23 20:29 Hydralazine 20 Mg/Ml Vial IV Q4H PRN PRN SBP > 160 Protocol Ceftriaxone Sodium 1 gm in 50 mls @ 100 mls/hr 06/07/23 20:29 06/10/23 10:16 Rocephin IV 06/14/23 20:30 Infused Q24 EPHRAIM Infusion Sodium Chloride 250 mls @ 15 mls/hr 06/07/23 20:47 IV .[id number] PRN Additional IVPB Infusion Sodium Chloride 250 mls @ 15 mls/hr 06/07/23 20:47 IV .[id number] PRN Saline Flush Pantoprazole Sodium 80 mg/ 100 mls @ 10 mls/hr 06/10/23 12:55 06/10/23 13:16 Sodium Chloride CONT INF 10 mls/hr Q10H EPHRAIM Administration Propofol 1,000 mg in 100 mls @ 4.804 mls/hr 06/10/23 16:45 06/10/23 19:00 Diprivan CONT INF 15 mcg/kg/min .Q12H EPHRAIM 7.2 mls/hr Titration Protocol 10 MCG/KG/MIN Norepinephrine Bitartrate 8 mg 250 mls @ 9.375 mls/hr 06/10/23 16:55 06/10/23 18:41 / Sodium Chloride CONT INF Not Given .[id number] EPHRAIM Protocol 5 MCG/MIN Fentanyl 100 mls @ 5 mls/hr 06/10/23 17:35 06/10/23 19:00 CONT INF 50 mcg/hr UD EPHRAIM 5 mls/hr Titration Protocol 50 MCG/HR Insulin Human Lispro 0 unit 06/07/23 20:29 06/10/23 15:12 Insulin Lispro 100 Unit/Ml Insuln.Pen SC Not Given Q6H [facility] Protocol Isosorbide Mononitrate 60 mg 06/08/23 10:00 06/10/23 08:13 Isosorbide Mononitrate 60 Mg Tablet PO 60 mg DAILY [facility] Administration Protocol Melatonin 3 mg 06/07/23 20:29 Melatonin 3 Mg Tablet PO QHS PRN PRN INSOMNIA Nitroglycerin 0.4 mg 06/07/23 20:29 Nitroglycerin (Inpatient Use) 0.4 Mg Tab.Subl SL Q5M PRN CARDIAC/CHEST PAIN Ondansetron HCl 4 mg 06/07/23 20:29 06/10/23 10:03 Ondansetron 4 Mg/2 Ml Vial IV 4 mg Q8H PRN PRN Administration NAUSEA/VOMITING Pramipexole Dihydrochloride 0.5 mg 06/08/23 08:00 06/10/23 17:01 Pramipexole Di-Hcl 0.5 Mg Tablet PO Not Given BID@0800,1600 [facility] Pramipexole Dihydrochloride 0.75 mg 06/07/23 22:00 06/09/23 20:56 Pramipexole Di-Hcl 0.25 Mg Tablet PO 0.75 mg QHS [facility] Administration Prochlorperazine Edisylate 5 mg 06/07/23 20:29 Prochlorperazine 10 Mg/2 Ml Vial IV Q4H PRN PRN Breakthrough Nausea/Vomiting Sevelamer Carbonate 800 mg 06/08/23 08:00 06/10/23 18:08 Sevelamer Carbonate 800 Mg Tablet PO Not Given TIDCM [facility] Sodium Chloride 10 - 40 ml 06/07/23 20:47 06/10/23 13:02 0.9% Saline Lock 10 Ml Syringe IV 20 ml UD PRN Administration SALINE FLUSH Lab / Micro Data 06/10/23 13:10 06/10/23 05:35 Labs: Laboratory Results - last 24 hr 06/07/23 17:10: Crossmatch See Detail 06/07/23 17:10: Crossmatch See Detail 06/10/23 05:35: WBC 15.7 H, RBC 3.12 L, Hgb 9.4 L, Hct 30.7 L, MCV 98.4, MCH 30.1, MCHC 30.6 L D, RDW Std Deviation 63.5 H, RDW Coeff of Becca 19.9 H, Plt Count 280, MPV 9.8, Neut % (Auto) Not Reportable, Absolute Neuts (auto) 13.6 H, Absolute Lymphs (auto) 0.62 L, Total Counted 100, Neutrophils % (Manual) 85 H, Band Neutrophils % 2, Lymphocytes % (Manual) 4 L, Monocytes % (Manual) 3, Eosinophils % (Manual) 3, Metamyelocytes % 2 H, Myelocytes % 1 H, Nucleated RBCs/100 WBC 1, Diff Path Review July alexandra, Platelet Estimate ADEQUATE, Praneeth ychromasia 1+, Anisocytosis 2+, Sodium 134 L, Potassium 5.0, Chloride 102, Ca rbon Dioxide 23.0, Anion Gap 9, BUN 85 H, Creatinine 5.56 H, Estim Creat Clear Calc 8.44, Est GFR (MDRD) Af Amer 10 L, Est GFR (MDRD) Non-Af 8 L, BUN/Creatinine Ratio 15.3, Glucose 147 H, Calcium 6.8 L 06/10/23 13:10: WBC 16.3 H, RBC 2.42 L, Hgb 7.2 L, Hct 24.0 L, MCV 99.2 H, MCH 29.8, MCHC 30.0 L, RDW Std Deviation 65.2 H, RDW Coeff of Becca 19.9 H, Plt Count 239, MPV 9.5, Neut % (Auto) Not Reportable, Absolute Neuts (auto) 13.3 H, Absolute Lymphs (auto) 1.30, Total Counted 100, Neutrophils % (Manual) 82 H, Lymphocytes % (Manual) 8 L, Monocytes % (Manual) 3, Eosinophils % (Manual) 1, Metamyelocytes % 5 H, Myelocytes % 1 H, Nucleated RBCs/100 WBC 1, Diff Path Review July alexandra, Platelet Estimate ADEQUATE, Polychromasia 1+, Anisocytosis 1+ 06/10/23 14:27: Ammonia 27.0 ABG Data ABG results: ABG 06/10/23 17:42 Specimen Type ART Sample Site L Radial pH 7.19 L* Bicarbonate Actual 22.8 Total CO2 25 Base Excess -5 L O2 Saturation 100 H O2 % 80.0 ABG pCO2 59.4 H ABG pO2 300 H Abram Test Positive Respiration Rate 14 O2 Delivery Device Adult Vent Vent Mode AC Tidal Volume 400.0 POC PEEP 5 Crit Call To/Read Back Yes Blood Gas Notified Whom KORAM Blood Gas Notified Time 17:43:45 Imaging Radiology Impression Chest X-Ray 06/10/23 17:55 IMPRESSION: There are no acute findings. Electronically Signed: Evelio Ross MD at 18:10 EDT Reading Location ID and State: [facility] / [place] , Service support , Assessment and Plan . Assessment and plan: Physical Exam: Gen - NAD, obese, intubated HEENT - MMM. ETT in place Resp - +few rhonchi. Mechanically ventilated CV - RRR. No m/g/r. +R chest wall permacath Abd - Soft, NT, ND Ext - No c/c. Trace edema Skin - No rashes? Neuro - Sedated, intubated I have reviewed the pertinent vital sign, laboratory, and imaging data. ASSESSMENT: # Acute on chronic hypoxic respiratory failure - on home 2L NC. Intubated mainly for unresponsiveness during EGD today # Acute GI bleed - 2/2 gastric ulcers, s/p EGD x 2 and multiple cautery, clippi ng. Also had cautery of duodenal angiodysplasia and noted to have G1-2 EV which did not require intervention. Prior h/o GI bleed as well # Metabolic acidosis # Acute blood loss anemia # Acute encephalopathy - reportedly occurred during EGD even prior to sedation administration # COPD # Recent COVID-19 - pt reports having URI sx about a week prior to admission, and these had resolved even prior to admit # ESRD on HD # CAD s/p CABG # HFpEF # HTN # DM2 # Anxiety/depression # RLS PLAN: -Adjusted vent to VC 400/20/5/50%. Repeat ABG, can adjust vent further as needed -Wean sedation as tolerated. Monitor mental status with this, may need head imaging if not waking up further -Repeat STAT labs. Likely needs additional blood -Start bicarb gtt given significant acidosis. s/p IVF bolus reported during EGD as well -Marginal BP, hold antihypertensive meds for now. May need pressors if worsening -Cont PPI gtt. GI following -Repeat EKG, trop, lactate -On empiric rocephin, will cont for now. Low threshold to broaden abx if developing signs of aspiration PNA. Obtain sputum Cx. Low suspicion that earlier COVID-19 contributing to current episode, will hold off on directed therapies for this -Cont budesonide, add scheduled duonebs; avoid systemic steroids as possible given significant gastric bleeding -Nephrology following. Cont intermittent HD as per their recs FEN/GI: NPO Proph DVT/GI: SCDs, protonix gtt DNR code status Pt was actually supposed to be DNR/DNI but was emergently intubated to facilitate EGD. Tentative plan per IM discussion with family is to keep pt intubated overnight, and then will likely plan for extubation tomorrow regar dless of clinical status. Will need to revisit this in AM with them Critical Care Time: 60 mins The entirety of this encounter was completed via telemedicine
--- NOTE | 2023-06-10 19:46 | EKG12_ITS ---
Test Reason : arrhythmia Blood Pressure : / mmHG Vent. Rate : 051 BPM Atrial Rate : 051 BPM P-R Int : 264 ms QRS Dur : 096 ms QT Int : 538 ms P-R-T Axes : 051 043 025 degrees QTc Int : 495 ms Sinus bradycardia with 1st degree A-V block with Premature atrial complexes Nonspecific ST and T wave abnormality Prolonged QT Abnormal ECG When compared with ECG of 07-JUN-2023 17:14, Premature atrial complexes are now Present GA interval has increased Vent. rate has decreased BY 39 BPM Confirmed by CHAITANYA DOVE, CARLOS ENRIQUE ([id number]), medical transcription editor JALIL JENSEN ([id number]) on 06/18/2023 11:29:12 AM Referred By: Filipe Confirmed By:CARLOS ENRIQUE TAVARES MD
[2023-06-10 20:21] LABS: Hematocrit 22.2 % (37-47); Mean Corp Hgb Conc 31.5 g/dL (32-36); Mean Corpuscular Volume 98.2 fL (81-99); Mean Platelet Vol. 9.8 fl (6.2-12.0); Platelet Count 222 K/mm3 (150-450); RBC Distribution Width CV 19.3 % (11.6-14.6); RBC Distribution Width SD 62.4 fl (35.1-43.9); Red Blood Count 2.26 M/mm3 (4.2-5.4); White Blood Count 17.5 K/mm3 (4.4-11.0)
[2023-06-10 20:44] LABS: International Normalized Ratio 1.3; Prothrombin Time (Protime)PT. 15.8 SECONDS (11.7-14.9)
[2023-06-10 20:45] LABS: Fibrinogen 247 mg/dl (203-444)
[2023-06-10 20:46] LABS: Base Excess -6 mmol/L (-2 to +2); Bicarbonate 20.5 mmol/L (22-26); Blood Gas Specimen Type ART; Mode AC; O2 Delivery Device Adult Vent; PEEP 5; PO2 88 mmHG (75-100); RR 20; SITE L Radial; SO2 96 % (95-99); Total Carbon Dioxide 22 mmol/L; pCO2 39.4 mmHg (35-45); pH 7.32 (7.35-7.45)
[2023-06-10 20:50] LABS: Partial Thromboplast Time 20.4 Seconds (24.1-36.2)
[2023-06-10 20:54] LABS: Lactic Acid 0.7 mmol/L (0.4-1.9)
[2023-06-10 20:55] LABS: AST(SGOT) 12 U/L (15-37); Alanine Aminotransfer ALT/SGPT 10 U/L (13-56); Albumin, Serum 2.4 g/dL (3.2-5.0); Alkaline Phosphatase 57 U/L (45-117); Anion Gap 6 (5-15); BUN 103 mg/dL (7-18); BUN/Creat Ratio 17.5 RATIO (10-20); Calcium,Total 6.1 mg/dL (8.5-10.1); Chloride 106 mmol/L (98-107); Creatinine, Serum 5.87 mg/dL (0.55-1.02); EST Glomerular Filtration Rate 7 mL/min (>60); Est Glom Filt Rate - Afr Amer 9 mL/min (>60); Estimated Creatinine Clearance 7.99 ml/min; Globulin 2.4 g/dL (2.2-4.2); Glucose 156 mg/dL (74-106); Magnesium 1.9 mg/dL (1.6-2.6); Phosphorus 5.4 mg/dL (2.5-4.9); Potassium 6.3 mmol/L (3.5-5.1); Protein, Total 4.8 g/dL (6.4-8.2); Sodium Level 136 mmol/L (136-145); Troponin-I HS 10 pg/mL (3.0-54.0)
[2023-06-10] MEDS: Insulin Lispro 100 UNIT/ML INSULN.PEN SC (21:11)
[2023-06-10] MEDS: Sodium Bicarbonate 150 MEQ in Dextrose 5%-Water (1000mL Bag) 1,000 ML 100 MEQ IV (21:11)
[2023-06-10] MEDS: Chlorhexidine 15 ML PO (21:14)
--- NOTE | 2023-06-10 21:56 | PCM.HOSP.N ---
Hospitalist Note K 6.3, will initiate hyperkalemia orders set; however, given bleed will defer kaexelate, repeat BMP at midnight.
[2023-06-10] MEDS: Calcium Gluconate 1 GM/10 ML Vial 0.5 GM IVP (22:50)
[2023-06-10] MEDS: Insulin Lispro 10 UNIT in Syringe 0 ML 6 UNIT IV (22:50)
[2023-06-10] MEDS: Dextrose 50%-Water 25 GM/50 ML DISP.SYRIN IV (22:50)
[2023-06-10] MEDS: Albuterol 2.5 MG/3 ML VIAL.NEB. 10 MG INHALATION (23:32)
[2023-06-11] VITALS (50 sets, daily range): BP systolic 102–174; BP diastolic 35–65; PULSE 46–78; RESP 17–25; TEMP 35.8–36.9; O2SAT 92–98; BMI 33.2; BMI 32.2
[2023-06-11] MEDS: Ipratropium/Albuterol Sulfate 3 ML AMPUL.NEB INHALATION ×4 (00:38→18:47)
[2023-06-11 01:38] LABS: Anion Gap 8 (5-15); BUN 109 mg/dL (7-18); BUN/Creat Ratio 18.1 RATIO (10-20); Calcium,Total 6.1 mg/dL (8.5-10.1); Chloride 105 mmol/L (98-107); Creatinine, Serum 6.03 mg/dL (0.55-1.02); EST Glomerular Filtration Rate 7 mL/min (>60); Est Glom Filt Rate - Afr Amer 9 mL/min (>60); Estimated Creatinine Clearance 7.78 ml/min; Glucose 103 mg/dL (74-106); Potassium 5.1 mmol/L (3.5-5.1); Sodium Level 137 mmol/L (136-145)
[2023-06-11] MEDS: CHLORHEXIDINE GLUC 2% CLOTH 1 EACH TOWELETTE TOPICAL (01:45)
[2023-06-11] MEDS: Pantoprazole Sodium 80 MG in 0.9% Normal Saline (100mL Bag) 80 ML 10 MG CONT INF ×3 (01:48→21:53)
[2023-06-11 02:09] LABS: Bedside Glucose 82 mg/dL (74-106)
[2023-06-11] MEDS: fentaNYL drip 100 ML 10 MCG CONT INF ×3 (03:34→20:43)
[2023-06-11] MEDS: Propofol 10MG/Ml 1,000 MG/100 ML Bottle 4.8 MG CONT INF (03:35)
[2023-06-11] MEDS: TITRATION PARAMETER CHANGE 1 EACH IV (05:55)
[2023-06-11 05:58] LABS: Absolute Lymphocyte Count 0.77 X10^3/uL (0.83-4.51); Absolute Neutrophil Count 14.3 X10^3/uL (2.0-7.7); Basophil# 0.02 X10^3/uL; Basophil% 0.1 % (0-1); Eosinophil# 0.17 X10^3/uL; Hematocrit 20.6 % (37-47); Hemoglobin 6.3 g/dL (12.0-15.0); Lymphocyte # 0.77 X10^3/ul (0.83-4.51); Lymphocyte % 4.7 % (19-41); Mean Corp Hgb Conc 30.6 g/dL (32-36); Mean Corpuscular Hgb 30.1 pg (27.0-32.0); Mean Corpuscular Volume 98.6 fL (81-99); Mean Platelet Vol. 9.7 fl (6.2-12.0); Monocyte% 4.2 % (0-10); NRBC Flagged by Analyzer 0.7 % (0-5); Neutrophil # 14.33 X10^3/uL (2.7-7.7); Platelet Count 183 K/mm3 (150-450); RBC Distribution Width CV 19.9 % (11.6-14.6); RBC Distribution Width SD 63.7 fl (35.1-43.9); Red Blood Count 2.09 M/mm3 (4.2-5.4); White Blood Count 16.5 K/mm3 (4.4-11.0)
--- NOTE | 2023-06-11 06:24 | PCM.HOSP.N ---
Hospitalist Note Hgb 6.3, 1 u PRBC ordered with repeat HH following.
[2023-06-11 06:27] LABS: Anion Gap 9 (5-15); BUN 106 mg/dL (7-18); BUN/Creat Ratio 16.7 RATIO (10-20); Chloride 105 mmol/L (98-107); Creatinine, Serum 6.34 mg/dL (0.55-1.02); EST Glomerular Filtration Rate 7 mL/min (>60); Est Glom Filt Rate - Afr Amer 8 mL/min (>60); Estimated Creatinine Clearance 7.51 ml/min; Glucose 116 mg/dL (74-106); Potassium 4.7 mmol/L (3.5-5.1); Sodium Level 138 mmol/L (136-145)
--- NOTE | 2023-06-11 06:45 | PN.CC_ITS ---
Assessment & Plan Assessment/Plan (1) ABLA (acute blood loss anemia): PLAN: Plan RECOMMENDATIONS: 1. Continue assist-control mode of mechanical ventilation. Wean FiO2 and PEEP to maintain saturations at or above 90%. 2. Bronchodilator therapy. 3. Transfuse blood products to maintain a hemoglobin at or above 7 g/dL. 4. Continue PPI therapy. 5. Dialysis support per nephrology recommendations. IMPRESSIONS: 1. Acute blood loss anemia Secondary to upper GI blood loss. The patient is status post endoscopy x 2. Plan to continue current supportive measures and transfuse blood products to maintain hemoglobin at or above 7 g/dL. Continue PPI therapy. 2. Acute on chronic hypoxemic respiratory failure The patient was intubated in the setting of a CODE BLUE during her second endoscopic procedure. CODE STATUS was previously documented to be DNR CCA without intubation. However, intubation was felt to be required to facilitate the successful completion of her endoscopic evaluation. Plan to continue assi st-control mode of mechanical ventilation and wean FiO2 and PEEP to maintain saturations at or above 90%. Continue bronchodilator therapy. The patient failed her spontaneous breathing trial this morning. Recommend continuing invasive mechanical ventilatory support until there is clear evidence that the patient is no longer bleeding from a gastrointestinal perspective. 3. End-stage renal disease on hemodialysis Nephrology following to assist with hemodialysis needs. 4. History of COPD/obstructive sleep apnea/secondary pulmonary hypertension/coronary artery disease status post CABG/diabetes mellitus Complicates care, management, recovery and prognosis. Continue supportive measures as noted above. TIME: 35 minutes of critical care time, independent of procedures, was spent addressing the patient's acute blood loss anemia, acute on chronic hypoxemic respiratory failure, end-stage renal disease on hemodialysis, review of all data and collaboration with the care team. Subjective Subjective The patient was seen and examined at the bedside this morning. Events from the last 24 hours have been reviewed. The patient is currently afebrile, hemodynamically stable and maintaining appropriate oxygen saturations on assist- control mode mechanical ventilation with an FiO2 requirement of 40% and PEEP of 5. The patient remains lightly sedated on propofol and fentanyl. She failed her spontaneous breathing trial this morning. She continues to have bloody output from her OG tube. Hemoglobin has dropped to 6.3 g/dL this morning. White count remains elevated at 16,000. BUN is elevated at 106 with a creatinine of 6.34. Objective Data Objective Data The patient's most recent lab work, culture data and imaging studies have all been personally reviewed. Surface echocardiogram from May 2023 demonstrated stage II diastolic dysfunction with an ejection fraction of 60%. Pulmonary artery systolic pressure was estimated to be 55 mmHg. COVID PCR was positive on June 01. Stool for occult blood was positive on June 06. Sputum culture is pending. Vital Signs: Vital Signs Temp Pulse Resp BP Pulse Ox O2 Del Method O2 Flow Rate 98.4 F 60 20 H 136/55 H 96 Mechanical Ventilator 2 06/11/23 04:00 06/11/23 06:00 06/11/23 06:00 06/11/23 06:00 06/11/23 06:00 06/11/23 06:00 06/10/23 15:00 FiO2 40 06/11/23 06:00 Oxygen Flow Rate (L/min) 2 Oxygen Delivery Method Mechanical Ventilator Weight: 181 lb 7.047 oz Body Mass Index (BMI) 33.2 Intake & Output: Intake and Output for Last 24 Hours 06/09/23 06/10/23 06/11/23 23:59 23:59 23:59 Intake Total 995.75 / 995.75 1536.30 / 1561.10 219.48 / 219.48 Output Total 100 / 300 450 / 450 Balance 995.75 / 995.75 1436.30 / 1261.10 -230.52 / -230.52 Lab / Micro Data 06/11/23 05:45 06/11/23 05:45 Labs: Laboratory Results - last 24 hr 06/07/23 17:10: Crossmatch See Detail 06/10/23 05:35: WBC 15.7 H, RBC 3.12 L, Hgb 9.4 L, Hct 30.7 L, MCV 98.4, MCH 30.1, MCHC 30.6 L D, RDW Std Deviation 63.5 H, RDW Coeff of Becca 19.9 H, Plt Count 280, MPV 9.8, Neut % (Auto) Not Reportable, Absolute Neuts (auto) 13.6 H, Absolute Lymphs (auto) 0.62 L, Total Counted 100, Neutrophils % (Manual) 85 H, Band Neutrophils % 2, Lymphocytes % (Manual) 4 L, Monocytes % (Manual) 3, Eosinophils % (Manual) 3, Metamyelocytes % 2 H, Myelocytes % 1 H, Nucleated RBCs/100 WBC 1, Diff Path Review July alexandra, Platelet Estimate ADEQUATE, Polychromasia 1+, Anisocytosis 2+, Sodium 134 L, Potassium 5.0, Chloride 102, Carbon Dioxide 23.0, Anion Gap 9, BUN 85 H, Creatinine 5.56 H, Estim Creat Clear Calc 8.44, Est GFR (MDRD) Af Amer 10 L, Est GFR (MDRD) Non-Af 8 L, BUN/Creatinine Ratio 15.3, Glucose 147 H, Calcium 6.8 L 06/10/23 13:10: WBC 16.3 H, RBC 2.42 L, Hgb 7.2 L, Hct 24.0 L, MCV 99.2 H, MCH 29.8, MCHC 30.0 L, RDW Std Deviation 65.2 H, RDW Coeff of Becca 19.9 H, Plt Count 239, MPV 9.5, Neut % (Auto) Not Reportable, Absolute Neuts (auto) 13.3 H, Absolute Lymphs (auto) 1.30, Total Counted 100, Neutrophils % (Manual) 82 H, Lym phocytes % (Manual) 8 L, Monocytes % (Manual) 3, Eosinophils % (Manual) 1, Me tamyelocytes % 5 H, Myelocytes % 1 H, Nucleated RBCs/100 WBC 1, Diff Path Review July alexandra, Platelet Estimate ADEQUATE, Polychromasia 1+, Anisocytosis 1+ 06/10/23 14:27: Ammonia 27.0 06/10/23 20:05: WBC 17.5 H, RBC 2.26 L, Hgb 7.0 L, Hct 22.2 L, MCV 98.2, MCH 31.0, MCHC 31.5 L, RDW Std Deviation 62.4 H, RDW Coeff of Becca 19.3 H, Plt Count 222, MPV 9.8, Sodium 136, Potassium 6.3 H*, Chloride 106, Carbon Dioxide 24.0, Anion Gap 6, BUN 103 H*, Creatinine 5.87 H, Estim Creat Clear Calc 7.99, Est GFR (MDRD) Af Amer 9 L, Est GFR (MDRD) Non-Af 7 L, BUN/Creatinine Ratio 17.5, Glucose 156 H, Calcium 6.1 L*, Phosphorus 5.4 H, Magnesium 1.9, Total Bilirubin 0.30, AST 12 L, ALT 10 L, Alkaline Phosphatase 57, Troponin I High Sens 10, Total Protein 4.8 L, Albumin 2.4 L, Globulin 2.4, Albumin/Globulin Ratio 1.0 06/10/23 20:20: PT 15.8 H, INR 1.3, APTT 20.4 L, Fibrinogen 247, Lactic Acid 0.7 06/11/23 01:00: Sodium 137, Potassium 5.1, Chloride 105, Carbon Dioxide 24.0, Anion Gap 8, BUN 109 H*, Creatinine 6.03 H, Estim Creat Clear Calc 7.78, Est GFR (MDRD) Af Amer 9 L, Est GFR (MDRD) Non-Af 7 L, BUN/Creatinine Ratio 18.1, Glucose 103, Calcium 6.1 L* 06/11/23 01:49: POC Glucose 82 06/11/23 05:45: WBC 16.5 H, RBC 2.09 L, Hgb 6.3 L, Hct 20.6 L, MCV 98.6, MCH 30.1, MCHC 30.6 L, RDW Std Deviation 63.7 H, RDW Coeff of Becca 19.9 H, Plt Count 183, MPV 9.7, Immature Gran % (Auto) 3.000 H, Neut % (Auto) 87.0 H, Lymph % (Auto) 4.7 L, [place] % (Auto) 4.2, Eos % (Auto) 1.0, Baso % (Auto) 0.1, Absolute Neuts (auto) 14.3 H, Absolute Lymphs (auto) 0.77 L, Nucleated RBC % 0.7, Sodium 138, Potassium 4.7, Chloride 105, Carbon Dioxide 24.0, Anion Gap 9, BUN 106 H*, Creatinine 6.34 H, Estim Creat Clear Calc 7.51, Est GFR (MDRD) Af Amer 8 L, Est GFR (MDRD) Non-Af 7 L, BUN/Creatinine Ratio 16.7, Glucose 116 H, Calcium 6.0 L* Micro: Microbiology 06/07/23 17:10 Stool Stool Occult Blood (SANJUANA) - Final Occult Blood Positive ABG Data ABG results: ABG 06/10/23 06/10/23 17:42 20:41 Specimen Type ART ART Sample Site L Radial L Radial pH 7.19 L* 7.32 L Bicarbonate Actual 22.8 20.5 L Total CO2 25 22 Base Excess -5 L -6 L O2 Saturation 100 H 96 O2 % 80.0 50.0 ABG pCO2 59.4 H 39.4 ABG pO2 300 H 88 Abram Test Positive N/A Respiration Rate 14 20 O2 Delivery Device Adult Vent Adult Vent Vent Mode AC AC Tidal Volume 400.0 400.0 POC PEEP 5 5 Crit Call To/Read Back Yes Blood Gas Notified Whom KORAM Blood Gas Notified Time 17:43:45 Radiography Diagnostic Testing: Radiology Impression Chest X-Ray 06/10/23 17:55 IMPRESSION: There are no acute findings. Electronically Signed: Evelio Ross MD at 18:10 EDT , Physical Exam Const Constitutional Narrative: Intubated, sedated and mechanically ventilated. No ventilator dyssynchrony noted. HEENT normocephalic and head/scalp atraumatic HEENT Narrative: Bloody output from OG tube. Mouth: endotracheal tube in place and OG tube in place Eyes EOMs intact bilaterally and conjunctivae normal Neck supple General: trachea midline Chest inspection of chest normal Resp Auscultation: diminished lung sounds; Negative for rales, rhonchi or wheezes Cardio S1 normal heart sound and S2 normal heart sound Rhythm: abnormal rhythm Heart Sounds: murmur GI soft to palpation and non-tender Extremity no clubbing, cyanosis or edema Skin no rashes or lesions noted Neuro Sensorium / Orientation: sedated on vent Charges/Coding Procedures Hospitalists Procedures: 27777 Critical Care 1st Hr
--- NOTE | 2023-06-11 06:55 | PCM.PN.HOSP ---
Reason for Visit Reason for Visit: Shortness of breath/abnormal labs Subjective Subjective Ms Trujillo is a 77-year-old white female who presented to the emergency department which commands but on 06/07/2023 with a history of increasing fatigue, malaise, and shortness of breath that was worse with exertion. She had a GI bleed in June 2022 that was found to be an upper GI bleed and she had recently been placed back on her home aspirin therapy. Outpatient hemoglobin was found to be 6 and she was referred to the emergency department for further evaluation. Vital signs on presentation were unremarkable and she was hemodynamically stable. CBC showed a leukocytosis with a count of 16.3/hemoglobin of 6.4 and her platelet count was normal. Her BMP demonstrated abnormal BUN/creatinine however she does have a history of end-stage renal disease and is on dialysis. She was Hemoccult positive in the emergency department and was transfused 2 units of packed red blood cells and admitted to the hospital. GI was consulted as well as nephrology and she was taken for EGD on 07/07/2023 at which time she was found to have grade 2 esophageal varices with an oozing gastric ulcer. This was treated with heater probe. She was also found to have an single gastric polyp that was resected and retrieved and a single bleeding angiodysplastic lesion in the duodenum that was treated with APC. She was restarted on a diet and seems to be doing well on the , however the patient had episode of hematemesis on 06/10/2023 with 2 episodes of coffee-ground emesis. Her blood pressures were stable and her heart rates were within normal range between 60s and 80s during this time period. She was transfused 2 more units of packed red blood cells and emergent endoscopy was done on 06/10/2023 that showed grade 1 esophageal varices, red blood in the entire stomach, oozing gastric ulcer with a visible vessel that was injected, treated with heater probe and sprayed with hemostatic spray, spurting gastric ulcer with visible vessel that was injected, treated with heater probe and clipped. This too was treated with hemostatic spray and no gross lesions in the first portion of the duodenum. JULEE OLMSTEAD was called and endoscopy and after the endoscopy probe was inserted the patient became unresponsive and hypotensive. She did not lose her pulse however and she was intubated at that time. Her baseline CODE STATUS was DNR CCA and this was discussed with family however they understood that since her decompensation occurred during the procedure the intubation was required but did not want her to have any ongoing CPR. She was admitted to the ICU following and the dry press operator helper was consulted. Today her hemoglobin is down to 6.3 and 1 unit packed red blood cells has been ordered. She was also noted to be hyperkalemic last evening however this seems to be when she was acidotic and likely related to shifts in her potassium. She is mechanically ventilated with an oxygen saturation 96% on 40% FiO2. Currently appears comfortable and on hemodialysis. Tolerating dialysis well. Objective Data Objective Data Vital Signs: Vital Signs Temp Pulse Resp BP Pulse Ox O2 Del Method O2 Flow Rate 98.4 F 60 20 H 136/55 H 96 Mechanical Ventilator 2 06/11/23 04:00 06/11/23 06:00 06/11/23 06:00 06/11/23 06:00 06/11/23 06:00 06/11/23 06:00 06/10/23 15:00 FiO2 40 06/11/23 06:00 Oxygen Flow Rate (L/min) 2 Oxygen Delivery Method Mechanical Ventilator Weight: 82.3 kg Body Mass Index (BMI) 33.2 Intake & Output: Intake and Output for Last 24 Hours 06/09/23 06/10/23 06/11/23 23:59 23:59 23:59 Intake Total 995.75 / 995.75 1536.30 / 1561.10 219.48 / 219.48 Output Total 100 / 300 450 / 450 Balance 995.75 / 995.75 1436.30 / 1261.10 -230.52 / -230.52 Lab / Micro Data 06/11/23 05:45 06/11/23 05:45 Labs: Laboratory Results - last 24 hr 06/07/23 17:10: Crossmatch See Detail 06/10/23 05:35: WBC 15.7 H, RBC 3.12 L, Hgb 9.4 L, Hct 30.7 L, MCV 98.4, MCH 30.1, MCHC 30.6 L D, RDW Std Deviation 63.5 H, RDW Coeff of Becca 19.9 H, Plt Count 280, MPV 9.8, Neut % (Auto) Not Reportable, Absolute Neuts (auto) 13.6 H, Absolute Lymphs (auto) 0.62 L, Total Counted 100, Neutrophils % (Manual) 85 H, Band Neutrophils % 2, Lymphocytes % (Manual) 4 L, Monocytes % (Manual) 3, Eosinophils % (Manual) 3, Metamyelocytes % 2 H, Myelocytes % 1 H, Nucleated RBCs/100 WBC 1, Diff Path Review July alexandra, Platelet Estimate ADEQUATE, Polychromasia 1+, Anisocytosis 2+, Sodium 134 L, Potassium 5.0, Chloride 102, Carbon Dioxide 23.0, Anion Gap 9, BUN 85 H, Creatinine 5.56 H, Estim Creat Clear Calc 8.44, Est GFR (MDRD) Af Amer 10 L, Est GFR (MDRD) Non-Af 8 L, BUN/Creatinine Ratio 15.3, Glucose 147 H, Calcium 6.8 L 06/10/23 13:10: WBC 16.3 H, RBC 2.42 L, Hgb 7.2 L, Hct 24.0 L, MCV 99.2 H, MCH 29.8, MCHC 30.0 L, RDW Std Deviation 65.2 H, RDW Coeff of Becca 19.9 H, Plt Count 239, MPV 9.5, Neut % (Auto) Not Reportable, Absolute Neuts (auto) 13.3 H, Absolute Lymphs (auto) 1.30, Total Counted 100, Neutrophils % (Manual) 82 H, Lymphocytes % (Manual) 8 L, Monocytes % (Manual) 3, Eosinophils % (Manual) 1, Metamyelocytes % 5 H, Myelocytes % 1 H, Nucleated RBCs/100 WBC 1, Diff Path Review July alexandra, Platelet Estimate ADEQUATE, Polychromasia 1+, Anisocytosis 1+ 06/10/23 14:27: Ammonia 27.0 06/10/23 20:05: WBC 17.5 H, RBC 2.26 L, Hgb 7.0 L, Hct 22.2 L, MCV 98.2, MCH 31.0, MCHC 31.5 L, RDW Std Deviation 62.4 H, RDW Coeff of Becca 19.3 H, Plt Count 222, MPV 9.8, Sodium 136, Potassium 6.3 H*, Chloride 106, Carbon Dioxide 24.0, Anion Gap 6, BUN 103 H*, Creatinine 5.87 H, Estim Creat Clear Calc 7.99, Est GFR (MDRD) Af Amer 9 L, Est GFR (MDRD) Non-Af 7 L, BUN/Creatinine Ratio 17.5, Glucose 156 H, Calcium 6.1 L*, Phosphorus 5.4 H, Magnesium 1.9, Total Bilirubin 0.30, AST 12 L, ALT 10 L, Alkaline Phosphatase 57, Troponin I High Sens 10, Total Protein 4.8 L, Albumin 2.4 L, Globulin 2.4, Albumin/Globulin Ratio 1.0 06/10/23 20:20: PT 15.8 H, INR 1.3, APTT 20.4 L, Fibrinogen 247, Lactic Acid 0.7 06/11/23 01:00: Sodium 137, Potassium 5.1, Chloride 105, Carbon Dioxide 24.0, Anion Gap 8, BUN 109 H*, Creatinine 6.03 H, Estim Creat Clear Calc 7.78, Est GFR (MDRD) Af Amer 9 L, Est GFR (MDRD) Non-Af 7 L, BUN/Creatinine Ratio 18.1, Glucose 103, Calcium 6.1 L* 06/11/23 01:49: POC Glucose 82 06/11/23 05:45: WBC 16.5 H, RBC 2.09 L, Hgb 6.3 L, Hct 20.6 L, MCV 98.6, MCH 30.1, MCHC 30.6 L, RDW Std Deviation 63.7 H, RDW Coeff of Becca 19.9 H, Plt Count 183, MPV 9.7, Immature Gran % (Auto) 3.000 H, Neut % (Auto) 87.0 H, Lymph % (Auto) 4.7 L, [place] % (Auto) 4.2, Eos % (Auto) 1.0, Baso % (Auto) 0.1, Absolute Neuts (auto) 14.3 H, Absolute Lymphs (auto) 0.77 L, Nucleated RBC % 0.7, Sodium 138, Potassium 4.7, Chloride 105, Carbon Dioxide 24.0, Anion Gap 9, BUN 106 H*, Creatinine 6.34 H, Estim Creat Clear Calc 7.51, Est GFR (MDRD) Af Amer 8 L, Est GFR (MDRD) Non-Af 7 L, BUN/Creatinine Ratio 16.7, Glucose 116 H, Calcium 6.0 L* Micro: Microbiology 06/07/23 17:10 Stool Stool Occult Blood (SANJUANA) - Final Occult Blood Positive ABG Data ABG results: ABG 06/10/23 06/10/23 17:42 20:41 Specimen Type ART ART Sample Site L Radial L Radial pH 7.19 L* 7.32 L Bicarbonate Actual 22.8 20.5 L Total CO2 25 22 Base Excess -5 L -6 L O2 Saturation 100 H 96 O2 % 80.0 50.0 ABG pCO2 59.4 H 39.4 ABG pO2 300 H 88 Abram Test Positive N/A Respiration Rate 14 20 O2 Delivery Device Adult Vent Adult Vent Vent Mode AC AC Tidal Volume 400.0 400.0 POC PEEP 5 5 Crit Call To/Read Back Yes Blood Gas Notified Whom KORAM Blood Gas Notified Time 17:43:45 Radiography Diagnostic Testing: Radiology Impression Chest X-Ray 06/10/23 17:55 IMPRESSION: There are no acute findings. Electronically Signed: Evelio Ross MD at 18:10 EDT Reading Location ID and State: [facility] / [place] , Service support , Physical Exam Const no apparent distress and well nourished; Negative for average body habitus or healthy appearing Constitutional Narrative: Obese, older, white female, intubated and sedated, appears comfortable, currently appears nontoxic, dialysis nurse at bedside and patient is on hemodialysis. HEENT head/scalp atraumatic and moist oral mucous membranes HEENT Narrative: ET tube/OG in place, OG with coffee-ground and tube in canister Head and Scalp: normocephalic Eyes PERRL; Negative for conjunctivae normal Eyes Narrative: Conjunctiva are pale bilaterally, no scleral icterus Neck no lymphadenopathy and supple Neck Narrative: Trachea midline, no thyroid enlargement Resp normal respiratory effort, no retractions and no use of accessory muscles Resp Narrative: Diminished at bases bilaterally Auscultation: Negative for rales, rhonchi or wheezes Cardio regular rate, regular rhythm, S1 normal heart sound, S2 normal heart sound, no rub, no gallops and no clicks; Negative for no murmurs Cardio Narrative: 4 out of 6 systolic murmur GI normal to inspection, nondistended, normoactive bowel sounds, soft to palpation and non-tender Extremity no clubbing, cyanosis or edema Extremity Narrative: Pedal pulses are 2+, radial pulses are 2+ Skin Skin Narrative: Tunneled dialysis catheter right upper chest that appears to be clean dry and dressing intact Neuro Neuro Narrative: Patient is intubated and sedated on a ventilator Psych Psych Narrative: Intubated and sedated on a ventilator Assessment & Plan Assessment/Plan (1) Gastric peptic ulcer: (2) Upper GI bleed: (3) Acute on chronic anemia: (4) Acute hypoxic respiratory failure: PLAN: Plan Acute hypoxic and hypercapnic respiratory failure -Intubated during endoscopy due to decompensation despite patient being in no intubation -This was discussed with family and they were okay with intubation for short period of time given the fact that it was decompensation during the procedure -Hypercapnia has resolved -Currently on mechanical ventilator with an SpO2 of 96% and FiO2 of 40% -Spontaneous breathing trials per protocol -Wean ventilator as able -Would likely avoid extubation until we can assure that her bleeding is stabilized -[facility]/pulmonary medicine following-appreciate input Upper GI bleed secondary to gastric ulcers -Initial EGD done on 06/08/2023 and showed grade 2 esophageal varices with oozing gastric ulcer that was injected and treated with heater probe as well as a single gastric polyp that was resected and retrieved and a single bleeding angiodysplastic lesion in the duodenum -Recurrent bleeding so emergent repeat EGD done on 06/10/2023 that demonstrated grade 1 esophageal varices with red blood in the entire stomach, oozing gastric ulcer with a visible vessel that was treated with heater probe and hemostatic spray and injected, a spurting gastric ulcer with visible vessel that was treated with heater probe, hemostatic spray and clips were placed. This too was injected. -Continue Protonix drip -Start Carafate once extubated -Await GI input for ongoing care -may need transferred for embolization Esophageal varices -Grade 2 noted on initial EGD -With upper GI bleed and esophageal varices will continue ceftriaxone for SBP prophylaxis Acute on chronic anemia due to blood loss with chronic anemia secondary to renal disease -Appears that her baseline hemoglobin runs between 7.5 and 9.5 -6.3 this morning -1 unit packed red blood cells transfused -Will place 2 units on hold -Acute component secondary to above -Monitor with every 6 hour hemoglobin Mixed metabolic and respiratory acidosis -Respiratory component has resolved -Discontinue bicarb -Continue to monitor Acute hyperkalemia -Likely related to acidosis and potassium shifts with acidosis -Now has resolved with improvement in her pH -Dialysis per nephrology Hypocalcemia -When corrected for albumin calcium is 9 next-no intervention required CAD/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/mild aortic stenosis -History of CABG x 4 -EF is 60% with stage II diastolic dysfunction, pulmonary pressures are 55 mmHg, mild aortic stenosis with a mean valve gradient of 16 mmHg, moderate mitral valve insufficiency noted on last echo -Continue to hold aspirin -Continue Coreg/Imdur/hydralazine/amlodipine/Bumex/prazosin -Continue statin Moderate secondary pulmonary hypertension -Secondary to COPD-who group 2 -Pulmonary pressures on last echo were 55 mmHg -Continue diuretics -Majority of fluid management for her is managed with dialysis End-stage renal disease-HD dependent -Patient is typically dialyzed M/W/F -Continue home phosphate binder -Nephrology following -Appreciate input Recent COVID-19 infection -Seems to be stable from the standpoint Chronic hypoxic respiratory failure secondary to COPD -Patient on 2 L of oxygen at baseline -Continue bronchodilators -Patient is currently mechanically ventilated -Hold home guaifenesin -Hold home scheduled inhalers DM-2 -Blood glucose is well-controlled with current a.m. fasting being 116 -Does not appear like patient is taking any medications for glucose control at this time -Continue SSI every 6 -Accu-Cheks as ordered RLS -Continue home Mirapex GERD -IV PPI as noted above Anxiety/depression -Continue home amitriptyline DVT prophylaxis -SCDs -Chemoprophylaxis contraindicated due to bleeding CODE STATUS -DNR CCA okay for short-term intubation due to decompensation during procedure however once extubated plan is for no reintubation Charges/Coding Visit Charges Inpatient E&M: [address] [facility] L3
[2023-06-11] MEDS: Budesonide Respules 0.5 MG/2 ML AMPUL.NEB. INHALATION ×2 (07:43→18:47)
[2023-06-11] MEDS: 0.9% Normal Saline 1,000 ML IV.SOLN. 1000 ML OPERA.SITE (08:54)
[2023-06-11] MEDS: PureFlow B 2K Dialysis Soln 1 BAG 6 BAG PF (08:54)
[2023-06-11] MEDS: 0.9% Saline Lock 10 ML Syringe IV ×2 (08:55→10:57)
[2023-06-11 09:59] LABS: Triglycerides 185 mg/dL
[2023-06-11] MEDS: Heparin 10,000 UNITS/10 ML Vial IV (10:57)
--- NOTE | 2023-06-11 10:57 | PCM.PN.REN ---
Subjective Subjective Patient is undergoing hemodialysis, tolerating treatment well. On ventilator support. Objective Data Objective Data Vital Signs: Vital Signs Temp Pulse Resp BP Pulse Ox O2 Del Method O2 Flow Rate 98.3 F 67 20 H 145/56 H 96 Mechanical Ventilator 2 06/11/23 10:38 06/11/23 10:45 06/11/23 10:45 06/11/23 10:45 06/11/23 10:45 06/11/23 10:45 06/10/23 15:00 FiO2 40 06/11/23 10:38 Oxygen Flow Rate (L/min) 2 Oxygen Delivery Method Mechanical Ventilator Weight: 82.3 kg Body Mass Index (BMI) 33.2 Intake & Output: Intake and Output for Last 24 Hours 06/09/23 06/10/23 06/11/23 23:59 23:59 23:59 Intake Total 995.75 / 995.75 1536.30 / 1561.10 1273.55 / 1273.55 Output Total 100 / 300 450 / 450 Balance 995.75 / 995.75 1436.30 / 1261.10 823.55 / 823.55 Lab / Micro Data 06/11/23 05:45 06/11/23 05:45 Labs: Laboratory Results - last 24 hr 06/07/23 17:10: Crossmatch See Detail 06/10/23 13:10: WBC 16.3 H, RBC 2.42 L, Hgb 7.2 L, Hct 24.0 L, MCV 99.2 H, MCH 29.8, MCHC 30.0 L, RDW Std Deviation 65.2 H, RDW Coeff of Becca 19.9 H, Plt Count 239, MPV 9.5, Neut % (Auto) Not Reportable, Absolute Neuts (auto) 13.3 H, Absolute Lymphs (auto) 1.30, Total Counted 100, Neutrophils % (Manual) 82 H, Lymphocytes % (Manual) 8 L, Monocytes % (Manual) 3, Eosinophils % (Manual) 1, Metamyelocytes % 5 H, Myelocytes % 1 H, Nucleated RBCs/100 WBC 1, Diff Path Review May , Platelet Estimate ADEQUATE, Polychromasia 1+, Anisocytosis 1+ 06/10/23 14:27: Ammonia 27.0, Blood Type A NEGATIVE, Antibody Screen NEGATIVE, Crossmatch See Detail 06/10/23 14:27: Crossmatch See Detail 06/10/23 20:05: WBC 17.5 H, RBC 2.26 L, Hgb 7.0 L, Hct 22.2 L, MCV 98.2, MCH 31.0, MCHC 31.5 L, RDW Std Deviation 62.4 H, RDW Coeff of Becca 19.3 H, Plt Count 222, MPV 9.8, Sodium 136, Potassium 6.3 H*, Chloride 106, Carbon Dioxide 24.0, Anion Gap 6, BUN 103 H*, Creatinine 5.87 H, Estim Creat Clear Calc 7.99, Est GFR (MDRD) Af Amer 9 L, Est GFR (MDRD) Non-Af 7 L, BUN/Creatinine Ratio 17.5, Glucose 156 H, Calcium 6.1 L*, Phosphorus 5.4 H, Magnesium 1.9, Total Bilirubin 0.30, AST 12 L, ALT 10 L, Alkaline Phosphatase 57, Troponin I High Sens 10, Total Protein 4.8 L, Albumin 2.4 L, Globulin 2.4, Albumin/Globulin Ratio 1.0 06/10/23 20:20: PT 15.8 H, INR 1.3, APTT 20.4 L, Fibrinogen 247, Lactic Acid 0.7 06/11/23 01:00: Sodium 137, Potassium 5.1, Chloride 105, Carbon Dioxide 24.0, Anion Gap 8, BUN 109 H*, Creatinine 6.03 H, Estim Creat Clear Calc 7.78, Est GFR (MDRD) Af Amer 9 L, Est GFR (MDRD) Non-Af 7 L, BUN/Creatinine Ratio 18.1, Glucose 103, Calcium 6.1 L* 06/11/23 01:49: POC Glucose 82 06/11/23 05:45: WBC 16.5 H, RBC 2.09 L, Hgb 6.3 L, Hct 20.6 L, MCV 98.6, MCH 30.1, MCHC 30.6 L, RDW Std Deviation 63.7 H, RDW Coeff of Becca 19.9 H, Plt Count 183, MPV 9.7, Immature Gran % (Auto) 3.000 H, Neut % (Auto) 87.0 H, Lymph % (Auto) 4.7 L, [place] % (Auto) 4.2, Eos % (Auto) 1.0, Baso % (Auto) 0.1, Absolute Neuts (auto) 14.3 H, Absolute Lymphs (auto) 0.77 L, Nucleated RBC % 0.7, Sodium 138, Potassium 4.7, Chloride 105, Carbon Dioxide 24.0, Anion Gap 9, BUN 106 H*, Creatinine 6.34 H, Estim Creat Clear Calc 7.51, Est GFR (MDRD) Af Amer 8 L, Est GFR (MDRD) Non-Af 7 L, BUN/Creatinine Ratio 16.7, Glucose 116 H, Calcium 6.0 L*, Triglycerides 185 Micro: Microbiology 06/07/23 17:10 Stool Stool Occult Blood (SANJUANA) - Final Occult Blood Positive ABG Data ABG results: ABG 06/10/23 06/10/23 17:42 20:41 Specimen Type ART ART Sample Site L Radial L Radial pH 7.19 L* 7.32 L Bicarbonate Actual 22.8 20.5 L Total CO2 25 22 Base Excess -5 L -6 L O2 Saturation 100 H 96 O2 % 80.0 50.0 ABG pCO2 59.4 H 39.4 ABG pO2 300 H 88 Abram Test Positive N/A Respiration Rate 14 20 O2 Delivery Device Adult Vent Adult Vent Vent Mode AC AC Tidal Volume 400.0 400.0 POC PEEP 5 5 Crit Call To/Read Back Yes Blood Gas Notified Whom KORAM Blood Gas Notified Time 17:43:45 Radiography Diagnostic Testing: Radiology Impression Chest X-Ray 06/10/23 17:55 IMPRESSION: There are no acute findings. Electronically Signed: Evelio Ross MD at 18:10 EDT Reading Location ID and State: [facility] / [place] , Service support , Physical Exam Narrative Sedated on vent, no apparent distress S1, S2, RRR Lung sounds clear Abdomen soft No pitting edema Tunneled HD catheter dressing clean, dry and intact, accessed for hemodialysis Assessment & Plan Assessment/Plan (1) ESRD on dialysis: PLAN: Plan Impression/Plan: The patient is a 77-year-old woman with past history of type 2 diabetes mellitus, hypertension, CAD, HFpEF, anemia, GERD, ESRD, and anxiety disorder. The patient is admitted to hospital on 06/07/2023 with acute blood loss anemia due to GI bleed. Nephrology is following for ESRD and dialysis management. - ESRD. The patient dialyzes on MWF schedule at [facility] in [place]. Patient is undergoing hemodialysis today over 3.5 hours, tolerating around 2.5 L fluid removal. Will evaluate for hemodialysis needs on daily basis -Upper GI bleed secondary to gastric ulcers. Patient had EGD on 06/07 which showed 2 esophageal varices with oozing gastric ulcer. Patient was having recurrent bleeding so underwent emergent EGD 06/09 with red blood in entire stomach, oozing gastric ulcer with visible vessel, spurting gastric ulcer. On PPI drip. Received 1 unit PRBC during dialysis today. Will continue monitor hemoglobin trends. Hgb 6.3. -Acute hypoxic respiratory failure. Patient was intubated during endoscopic evaluation.
[2023-06-11] MEDS: Propofol 10MG/Ml 1,000 MG/100 ML Bottle 7.4 MG CONT INF (11:25)
[2023-06-11] MEDS: Chlorhexidine 15 ML PO ×2 (11:31→20:39)
[2023-06-11] MEDS: 0.9% Normal Saline (250mL Bag) 250 ML 15 ML IV (11:54)
[2023-06-11] MEDS: Ceftriaxone 1 GM/50 ML BAG IV (11:54)
[2023-06-11 12:02] LABS: Hematocrit 27.3 % (37-47); Hemoglobin 8.6 g/dL (12.0-15.0)
[2023-06-11 12:09] LABS: Bedside Glucose 100 mg/dL (74-106)
--- NOTE | 2023-06-11 16:45 | RAD_ITS ---
INDICATION: og placement EXAMINATION/TECHNIQUE: X-RAY - XR Abdomen 1 View COMPARISON: June 10, 2023 FINDINGS: TUBES: Endotracheal tube 2.9 cm above the lauren. Enteric tube subdiaphragmatic in the stomach. Right internal jugular dual lumen catheter tip projects at the superior cavoatrial junction. Overlying telemetry leads. Left upper abdominal surgical clips. BOWEL GAS PATTERN: Nonspecific non-obstructive bowel gas pattern. No focal stomach or bowel distention. FREE AIR: Not well assessed on a supine view. ORGANOMEGALY: Not seen. CALCIFICATIONS: Aortic atherosclerosis. LOWER CHEST: Scattered bilateral linear atelectasis in the lung bases. BONES AND SOFT TISSUES: No acute pathology. RAD/Abdomen Single View (Portable) IMPRESSION: Enteric tube projects subdiaphragmatic in the stomach. Electronically Signed: Alphonso Gray MD at 17:40 EDT ,
[2023-06-11 20:06] LABS: Hemoglobin 7.9 g/dL (12.0-15.0)
[2023-06-11 20:06] LABS: Bedside Glucose 88 mg/dL (74-106)
[2023-06-11] MEDS: hydrALAZINE 50 MG Tablet 100 MG PO (20:37)
[2023-06-11] MEDS: Amitriptyline 100 MG Tablet PO (20:37)
[2023-06-11] MEDS: Carvedilol 12.5 MG Tablet PO (20:37)
[2023-06-11] MEDS: Doxazosin 4 MG Tablet 8 MG PO (20:38)
[2023-06-11] MEDS: Pramipexole Di-HCl 0.25 MG Tablet 0.75 MG PO (20:38)
[2023-06-11] MEDS: Propofol 10MG/Ml 1,000 MG/100 ML Bottle 9.9 MG CONT INF (20:43)
[2023-06-12] VITALS (47 sets, daily range): BP systolic 83–153; BP diastolic 38–75; PULSE 56–102; RESP 20–32; TEMP 36.6–37; O2SAT 89–100; BMI 32.7
[2023-06-12] MEDS: Ipratropium/Albuterol Sulfate 3 ML AMPUL.NEB INHALATION ×4 (00:59→19:14)
[2023-06-12 03:14] LABS: Absolute Neutrophil Count 15.2 X10^3/uL (2.0-7.7); Basophil# 0.04 X10^3/uL; Basophil% 0.2 % (0-1); Eosinophil# 0.35 X10^3/uL; Hematocrit 24.8 % (37-47); Hemoglobin 7.8 g/dL (12.0-15.0); Lymphocyte % 5.1 % (19-41); Mean Corp Hgb Conc 31.5 g/dL (32-36); Mean Corpuscular Hgb 30.2 pg (27.0-32.0); Mean Corpuscular Volume 96.1 fL (81-99); Mean Platelet Vol. 9.9 fl (6.2-12.0); Monocyte# 0.78 X10^3/uL; Monocyte% 4.4 % (0-10); NRBC Flagged by Analyzer 0.4 % (0-5); Neutrophil # 15.24 X10^3/uL (2.7-7.7); Neutrophil % 85.5 % (47-70); POSITIVE MORPHOLOGY YES; Platelet Count 192 K/mm3 (150-450); RBC Distribution Width CV 20.3 % (11.6-14.6); Red Blood Count 2.58 M/mm3 (4.2-5.4); White Blood Count 17.8 K/mm3 (4.4-11.0)
[2023-06-12 03:35] LABS: Differential Indicated SCAN CRITERIA MET
[2023-06-12 03:47] LABS: Anion Gap 9 (5-15); BUN 82 mg/dL (7-18); Calcium,Total 6.2 mg/dL (8.5-10.1); Chloride 103 mmol/L (98-107); Creatinine, Serum 5.11 mg/dL (0.55-1.02); EST Glomerular Filtration Rate 9 mL/min (>60); Est Glom Filt Rate - Afr Amer 11 mL/min (>60); Estimated Creatinine Clearance 9.15 ml/min; Glucose 81 mg/dL (74-106); Potassium 4.7 mmol/L (3.5-5.1); Sodium Level 136 mmol/L (136-145)
[2023-06-12] MEDS: Propofol 10MG/Ml 1,000 MG/100 ML Bottle 9.7 MG CONT INF (03:59)
[2023-06-12] MEDS: TITRATION PARAMETER CHANGE 1 EACH IV (04:08)
[2023-06-12] MEDS: CHLORHEXIDINE GLUC 2% CLOTH 1 EACH TOWELETTE TOPICAL (04:08)
[2023-06-12 05:09] LABS: Anisocytosis 2+
[2023-06-12] MEDS: 0.9% Normal Saline (250mL Bag) 250 ML 15 ML IV (05:10)
[2023-06-12] MEDS: hydrALAZINE 50 MG Tablet 100 MG PO (05:11)
--- NOTE | 2023-06-12 07:04 | PCM.PN.INT ---
Assessment & Plan Assessment/Plan (1) ABLA (acute blood loss anemia): PLAN: Plan RECOMMENDATIONS: 1. Continue assist-control mode of mechanical ventilation. Wean FiO2 and PEEP to maintain saturations at or above 90%. 2. Bronchodilator therapy. 3. Transfuse blood products to maintain a hemoglobin at or above 7 g/dL. 4. Continue PPI therapy. 5. Dialysis support per nephrology recommendations. 6. Family discussion this morning regarding goals of care. IMPRESSIONS: 1. Acute blood loss anemia Secondary to upper GI blood loss. The patient is status post endoscopy x 3. Plan to continue current supportive measures and transfuse blood products to maintain hemoglobin at or above 7 g/dL. Continue PPI therapy. 2. Acute on chronic hypoxemic respiratory failure The patient was intubated in the setting of a CODE BLUE during her second endoscopic procedure. CODE STATUS was previously documented to be DNR CCA without intubation. However, intubation was felt to be required to facilitate the successful completion of her endoscopic evaluation. Plan to continue assist-control mode of mechanical ventilation and wean FiO2 and PEEP to maintain saturations at or above 90%. Continue bronchodilator therapy. The patient continues to fail her spontaneous breathing trials. Therefore, we will transition her from propofol to Precedex for sedation and reattempt breathing trial again tomorrow morning. The family would like to continue supportive measures for now and see how she does over the next 48 to 72 hours. 3. End-stage renal disease on hemodialysis Nephrology following to assist with hemodialysis needs. 4. History of COPD/obstructive sleep apnea/secondary pulmonary hypertension/coronary artery disease status post CABG/diabetes mellitus Complicates care, management, recovery and prognosis. Continue supportive measures as noted above. TIME: 37 minutes of critical care time, independent of procedures, was spent addressing the patient's acute blood loss anemia, acute on chronic hypoxemic respiratory failure, end-stage renal disease on hemodialysis, review of all data and collaboration with the care team. Subjective Subjective The patient was seen and examined at the bedside this morning. Events from the last 24 hours have been reviewed. The patient is currently afebrile, hemodynamically stable and maintaining appropriate oxygen saturations on assist-control mode mechanical ventilation with an FiO2 requirement of 35% and PEEP of 5. The patient once again failed her spontaneous breathing trial this morning on account of worsening hypoxemia and ectopy. The patient apparently underwent additional endoscopic evaluation yesterday with additional cauterization. Hemoglobin this morning is relatively stable at 7.8 g/dL. White blood cell count is elevated 18,000. Platelet count is normal. The patient tolerated dialysis yesterday. Objective Data Objective Data The patient's most recent lab work, culture data and imaging studies have all been personally reviewed. Surface echocardiogram from May 2023 demonstrated stage II diastolic dysfunction with an ejection fraction of 60%. Pulmonary artery systolic pressure was estimated to be 55 mmHg. COVID PCR was positive on June 01. Stool for occult blood was positive on June 06. Sputum culture is pending. Vital Signs: Vital Signs Temp Pulse Resp BP Pulse Ox O2 Del Method O2 Flow Rate 98.1 F 71 20 H 107/45 L 96 Mechanical Ventilator 2 06/12/23 04:00 06/12/23 06:00 06/12/23 06:00 06/12/23 06:00 06/12/23 06:00 06/12/23 06:00 06/10/23 15:00 FiO2 35 06/12/23 06:00 Oxygen Flow Rate (L/min) 2 Oxygen Delivery Method Mechanical Ventilator Weight: 177 lb 14.609 oz Body Mass Index (BMI) 32.7 Intake & Output: Intake and Output for Last 24 Hours 06/10/23 06/11/23 06/12/23 23:59 23:59 23:59 Intake Total 1536.30 / 1561.10 1926.97 / 2006.87 337.85 / 337.85 Output Total 100 / 300 3845 / 3895 410 / 410 Balance 1436.30 / 1261.10 -1918.03 / -1888.13 -72.15 / -72.15 Lab / Micro Data Attestation: I reviewed the patient's lab results. 06/12/23 03:00 06/12/23 03:00 Labs: Laboratory Results - last 24 hr 06/10/23 14:27: Blood Type A NEGATIVE, Antibody Screen NEGATIVE, Crossmatch See Detail 06/10/23 14:27: Crossmatch See Detail 06/11/23 05:45: Triglycerides 185 06/11/23 11:51: POC Glucose 100 06/11/23 11:55: Hgb 8.6 L, Hct 27.3 L 06/11/23 19:45: Hgb 7.9 L 06/11/23 19:46: POC Glucose 88 06/12/23 03:00: WBC 17.8 H, RBC 2.58 L, Hgb 7.8 L, Hct 24.8 L, MCV 96.1, MCH 30.2, MCHC 31.5 L, RDW Std Deviation 62.0 H, RDW Coeff of Becca 20.3 H, Plt Count 192, MPV 9.9, Immature Gran % (Auto) 2.800 H, Neut % (Auto) 85.5 H, Lymph % (Auto) 5.1 L, [place] % (Auto) 4.4, Eos % (Auto) 2.0, Baso % (Auto) 0.2, Absolute Neuts (auto) 15.2 H, Absolute Lymphs (auto) 0.90, Nucleated RBC % 0.4, Anisocytosis 2+, Sodium 136, Potassium 4.7, Chloride 103, Carbon Dioxide 24.0, Anion Gap 9, BUN 82 H, Creatinine 5.11 H, Estim Creat Clear Calc 9.15, Est GFR (MDRD) Af Amer 11 L, Est GFR (MDRD) Non-Af 9 L, BUN/Creatinine Ratio 16.0, Glucose 81, Calcium 6.2 L* Micro: Microbiology 06/10/23 23:43 Sputum, Tracheal Aspirate Gram Stain - Final 06/07/23 17:10 Stool Stool Occult Blood (SANJUANA) - Final Occult Blood Positive ABG Data ABG results: ABG 06/10/23 06/10/23 17:42 20:41 Specimen Type ART ART Sample Site L Radial L Radial pH 7.19 L* 7.32 L Bicarbonate Actual 22.8 20.5 L Total CO2 25 22 Base Excess -5 L -6 L O2 Saturation 100 H 96 O2 % 80.0 50.0 ABG pCO2 59.4 H 39.4 ABG pO2 300 H 88 Abram Test Positive N/A Respiration Rate 14 20 O2 Delivery Device Adult Vent Adult Vent Vent Mode AC AC Tidal Volume 400.0 400.0 POC PEEP 5 5 Crit Call To/Read Back Yes Blood Gas Notified Whom KORAM Blood Gas Notified Time 17:43:45 Radiography Diagnostic Testing: Radiology Impression KUB X-Ray 06/11/23 16:45 IMPRESSION: Enteric tube projects subdiaphragmatic in the stomach. Electronically Signed: Alphonso Gray MD at 17:40 EDT , Physical Exam Const Constitutional Narrative: Intubated, sedated and mechanically ventilated. No ventilator dyssynchrony noted. HEENT normocephalic and head/scalp atraumatic HEENT Narrative: Bloody output from OG tube. Mouth: endotracheal tube in place and OG tube in place Eyes EOMs intact bilaterally and conjunctivae normal Neck supple General: trachea midline Chest inspection of chest normal Resp Auscultation: diminished lung sounds; Negative for rales, rhonchi or wheezes Cardio S1 normal heart sound and S2 normal heart sound Rhythm: abnormal rhythm Heart Sounds: murmur GI soft to palpation and non-tender Extremity no clubbing, cyanosis or edema Skin no rashes or lesions noted Neuro Sensorium / Orientation: sedated on vent Charges/Coding Procedures Hospitalists Procedures: [id number] Critical Care 1st Hr
[2023-06-12] MEDS: Budesonide Respules 0.5 MG/2 ML AMPUL.NEB. INHALATION ×2 (07:06→19:14)
[2023-06-12] MEDS: Ceftriaxone 1 GM/50 ML BAG IV (07:46)
[2023-06-12] MEDS: Pantoprazole Sodium 80 MG in 0.9% Normal Saline (100mL Bag) 80 ML 10 MG CONT INF ×2 (07:47→17:16)
[2023-06-12] MEDS: Chlorhexidine 15 ML PO ×2 (07:48→19:45)
[2023-06-12] MEDS: fentaNYL drip 100 ML 10 MCG CONT INF ×2 (07:49→17:20)
--- NOTE | 2023-06-12 07:59 | PN.HOSP_ITS ---
Reason for Visit Reason for Visit: Shortness of breath/abnormal lab Subjective Subjective No significant events overnight. Tolerated dialysis well. Repeat endoscopy yesterday was performed yesterday afternoon with no significant bleeding noted per discussion with gastroenterology yesterday. On propofol and fentanyl for sedation and blood pressures are little bit lower however suspect this is medication effect. Will hold her home antihypertensives except for her Coreg and we did put hold parameters on those. Did poorly on her spontaneous breathing trial this morning with desaturations into the 80s. Objective Data Objective Data Vital Signs: Vital Signs Temp Pulse Resp BP Pulse Ox O2 Del Method O2 Flow Rate 98.1 F 70 20 H 105/46 L 95 Mechanical Ventilator 2 06/12/23 04:00 06/12/23 07:07 06/12/23 07:07 06/12/23 07:00 06/12/23 07:07 06/12/23 07:00 06/10/23 15:00 FiO2 35 06/12/23 07:07 Oxygen Flow Rate (L/min) 2 Oxygen Delivery Method Mechanical Ventilator Weight: 80.7 kg Body Mass Index (BMI) 32.7 Intake & Output: Intake and Output for Last 24 Hours 06/10/23 06/11/23 06/12/23 23:59 23:59 23:59 Intake Total 1536.30 / 1561.10 1926.97 / 2006.87 464.72 / 464.72 Output Total 100 / 300 3845 / 3895 410 / 410 Balance 1436.30 / 1261.10 -1918.03 / -1888.13 54.72 / 54.72 Lab / Micro Data 06/12/23 03:00 06/12/23 03:00 Labs: Laboratory Results - last 24 hr 06/10/23 14:27: Blood Type A NEGATIVE, Antibody Screen NEGATIVE, Crossmatch See Detail 06/10/23 14:27: Crossmatch See Detail 06/11/23 05:45: Triglycerides 185 06/11/23 11:51: POC Glucose 100 06/11/23 11:55: Hgb 8.6 L, Hct 27.3 L 06/11/23 19:45: Hgb 7.9 L 06/11/23 19:46: POC Glucose 88 06/12/23 03:00: WBC 17.8 H, RBC 2.58 L, Hgb 7.8 L, Hct 24.8 L, MCV 96.1, MCH 30.2, MCHC 31.5 L, RDW Std Deviation 62.0 H, RDW Coeff of Becca 20.3 H, Plt Count 192, MPV 9.9, Immature Gran % (Auto) 2.800 H, Neut % (Auto) 85.5 H, Lymph % (Aut o) 5.1 L, [place] % (Auto) 4.4, Eos % (Auto) 2.0, Baso % (Auto) 0.2, Absolute Neuts (auto) 15.2 H, Absolute Lymphs (auto) 0.90, Nucleated RBC % 0.4, Anisocytosis 2+, Sodium 136, Potassium 4.7, Chloride 103, Carbon Dioxide 24.0, Anion Gap 9, BUN 82 H, Creatinine 5.11 H, Estim Creat Clear Calc 9.15, Est GFR (MDRD) Af Amer 11 L, Est GFR (MDRD) Non-Af 9 L, BUN/Creatinine Ratio 16.0, Glucose 81, Calcium 6.2 L* Micro: Microbiology 06/10/23 23:43 Sputum, Tracheal Aspirate Gram Stain - Final 06/07/23 17:10 Stool Stool Occult Blood (SANJUANA) - Final Occult Blood Positive Radiography Diagnostic Testing: Radiology Impression KUB X-Ray 06/11/23 16:45 IMPRESSION: Enteric tube projects subdiaphragmatic in the stomach. Electronically Signed: Alphonso Gray MD at 17:40 EDT Reading Location ID and State: [facility] / [place] Tel , Service support , Physical Exam Const no apparent distress and well nourished; Negative for average body habitus or healthy appearing Constitutional Narrative: Obese, older, white female, intubated and sedated, appears comfortable, currently appears nontoxic, ICU nurse at the bedside HEENT normocephalic, head/scalp atraumatic and moist oral mucous membranes Resp normal respiratory effort, normal air movement, no retractions, no use of accessory muscles and clear to auscultation bilaterally Resp Narrative: Diminished at bases bilaterally, intubated and sedated Auscultation: Negative for rales, rhonchi or wheezes Cardio regular rate, regular rhythm, S1 normal heart sound, S2 normal heart sound, no rub, no gallops and no clicks; Negative for no murmurs Cardio Narrative: 4 out of 6 systolic murmur GI normal to inspection, nondistended, normoactive bowel sounds, soft to palpation and non-tender Extremity no clubbing, cyanosis or edema Extremity Narrative: Pedal pulses are 2+, radial pulses are 2+ General Extremity: no tenderness to palpation of joints or extremities Neuro Neuro Narrative: Patient is intubated and sedated on a ventilator Psych Psych Narrative: Intubated and sedated on a ventilator Assessment & Plan Assessment/Plan (1) Gastric peptic ulcer: (2) Upper GI bleed: (3) Acute on chronic anemia: (4) Acute hypoxic respiratory failure: PLAN: Plan Acute hypoxic and hypercapnic respiratory failure -Intubated during endoscopy due to decompensation despite patient being in no intubation -This was discussed with family and they were okay with intubation for short period of time given the fact that it was decompensation during the procedure -Currently on mechanical ventilator with an SpO2 of 95% and FiO2 of 35% -Spontaneous breathing trials per protocol--> patient is not doing well thus far with spontaneous breathing trials however she is on minimal vent settings -Wean ventilator as able -CCM/pulmonary medicine following-appreciate input Upper GI bleed secondary to gastric ulcers -Initial EGD done on 06/08/2023 and showed grade 2 esophageal varices with oozing gastric ulcer that was injected and treated with heater probe as well as a single gastric polyp that was resected and retrieved and a single bleeding angiodysplastic lesion in the duodenum -Recurrent bleeding so emergent repeat EGD done on 06/10/2023 that demonstrated grade 1 esophageal varices with red blood in the entire stomach, oozing gastric ulcer with a visible vessel that was treated with heater probe and hemostatic spray and injected, a spurting gastric ulcer with visible vessel that was treated with heater probe, hemostatic spray and clips were placed. This too was injected. -Repeat EGD done yesterday 06/11/2023 with no obvious bleeding noted -Continue Protonix drip for now with transition to oral Protonix twice daily when okay with GI -Start Carafate once extubated -GI is following-appreciate input Esophageal varices -Grade 2 noted on initial EGD -With upper GI bleed and esophageal varices will continue ceftriaxone for SBP prophylaxis Acute on chronic anemia due to blood loss with chronic anemia secondary to renal disease -Appears that her baseline hemoglobin runs between 7.5 and 9.5 - hemoglobin improved from 6.3-8.6 after transfusion and has stabilized between 7.5 and 8.0 -Drop in hemoglobin and required transfusion yesterday was probably equilibration from previous bleed as EGD did not show any signs of active bleeding -I do have 2 units of packed red blood cells on hold -With stability no reason for ongoing serial monitoring unless a change in status Mixed metabolic and respiratory acidosis -Resolved Acute hyperkalemia -Resolved Hypocalcemia -When corrected for albumin calcium is 9 -no intervention required CAD/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/mild aortic stenosis -History of CABG x 4 -EF is 60% with stage II diastolic dysfunction, pulmonary pressures are 55 mmHg, mild aortic stenosis with a mean valve gradient of 16 mmHg, moderate mitral valve insufficiency noted on last echo -Continue to hold aspirin -Hold Imdur/hydralazine/amlodipine/Bumex/prazosin as she currently has some borderline blood pressures with the fentanyl and propofol for sedation -Will continue Coreg but hold parameters for systolic blood pressure less than 100 or MAP less than 70 -Continue statin Moderate secondary pulmonary hypertension -Secondary to COPD-who group 2 -Pulmonary pressures on last echo were 55 mmHg -Bumex on hold -Majority of fluid management for her is managed with dialysis End-stage renal disease-HD dependent -Patient is typically dialyzed M/W/F--> continue dialysis per nephrology -Continue home phosphate binder -Nephrology following -Appreciate input Recent COVID-19 infection -Seems to be stable from the standpoint Chronic hypoxic respiratory failure secondary to COPD -Patient on 2 L of oxygen at baseline -Continue bronchodilators -Patient is currently mechanically ventilated -Hold home guaifenesin -Hold home scheduled inhalers DM-2 -Blood glucose is well-controlled with current a.m. fasting being 116 -Does not appear like patient is taking any medications for glucose control at this time -Continue SSI every 6 -Accu-Cheks as ordered RLS -Continue home Mirapex GERD -IV PPI as noted above Anxiety/depression -Continue home amitriptyline DVT prophylaxis -SCDs -Chemoprophylaxis contraindicated due to bleeding CODE STATUS -DNR CCA okay for short-term intubation due to decompensation during procedure however once extubated plan is for no reintubation Disposition: -Family updated yesterday afternoon prior to EGD and then Dr. Chan updated after EGD. Discussed case with Dr. Aldrich today and he will have ongoing discussion with family with regards to their wishes on how to proceed if she is not doing well with her spontaneous breathing trials. Charges/Coding Visit Charges Inpatient E&M: 94184 Subs Hosp L2
[2023-06-12] MEDS: Pramipexole Di-HCl 0.5 MG Tablet GT (08:04)
[2023-06-12 08:53] LABS: Pathologist Review Reviewed
[2023-06-12 08:54] LABS: Pathologist Review Reviewed
[2023-06-12 09:10] LABS: Pathologist Review Reviewed
--- NOTE | 2023-06-12 10:11 | CASEMGMT ---
Social Work SW participated in ICU rounds, pt's daughters Adilene and Doris were present. Physician spoke w/family about goals of care and plan in regard to ventilator. Doris tearful during rounds. SW spoke w/daughters after rounds, offered support. They would like to speak w/physician again, SW let Dr. Aldrich know. SW will continue to follow and remains available for support to family. RENAY Ramirez
[2023-06-12] MEDS: dexMEDEtomidine 400 MCG in 0.9% Normal Saline (100mL Bag) 96 ML 10.1 MCG CONT INF (11:34)
[2023-06-12 11:57] LABS: Bedside Glucose 85 mg/dL (74-106)
--- NOTE | 2023-06-12 13:07 | CHAPLAIN ---
Type of Pastoral Visit _x__ Initial Visit ___ Follow-up Visit ___ On-call Visit ___ General Patient Visit ___ Spiritual Assessment ___ Family Conference ___ Bereavement ___ Rapid Response ___ Code Blue ___ Other (describe below) Pastoral Care Referral From ___ Patient ___ Family _x__ Nurse ___ Physician ___ Management Technician ___ [employer] Force Captain ___ Other (describe below) Sacrament/Intervention _x__ Active listening ___ Anointing ___ Tenriism ___ Bereavement ___ Communion ___ Nichole exploration ___ ___ Life review _x__ Prayer ___ Reconciliation ___ Sacrament of Sick _x__ Supportive presence ___ Wedding ___ Other (describe below) Pastoral Comments patient is intubated and unresponsive; RN recommended a visit to the family in the waiting area and an offer of presence and spiritual care; two daughters were in the waiting area and willing to talk and receive presence and support; family welcomes prayer for themselves and then later in the patients room for the pt herself;
[2023-06-12] MEDS: 0.9% Normal Saline (1000mL) 1,000 ML 999 ML IV (16:08)
[2023-06-12 16:21] LABS: Hemoglobin 7.5 g/dL (12.0-15.0)
--- NOTE | 2023-06-12 16:51 | OP.EGD_ITS ---
Patient Name: Shante Trujillo Procedure Date: 06/11/2023 4:11 PM Date of : 1945 Age: 77 Procedure: Upper GI endoscopy Indications: Coffee-ground emesis Providers: Kameron Chan DO Medicines: Monitored Anesthesia Care Patient Profile: This is a 77 year old female. Refer to note in patient chart for documentation of history and physical. Patient has symptoms of acute vomiting. Her most recent EGD for treatment of bleeding was recently. Complications: No immediate complications. Procedure: Pre-Anesthesia Assessment: - Prior to the procedure, a History and Physical was performed, and patient medications and allergies were reviewed. The patient is competent. The risks and benefits of the procedure and the sedation options and risks were discussed with the patient. All questions were answered and informed consent was obtained. Patient identification and proposed procedure were verified by the physician in the pre-procedure area. Mental Status Examination: alert and oriented. Airway Examination: normal oropharyngeal airway and neck mobility. Respiratory Examination: clear to auscultation. CV Examination: normal. Prophylactic Antibiotics: The patient does not require prophylactic antibiotics. Prior Anticoagulants: The patient has taken no anticoagulant or antiplatelet agents. ASA Grade Assessment: IV - A patient with severe systemic disease that is a constant threat to life. After reviewing the risks and benefits, the patient was deemed in satisfactory condition to undergo the procedure. The anesthesia plan was to use moderate sedation / analgesia (conscious sedation). Immediately prior to administration of medications, the patient was re-assessed for adequacy to receive sedatives. The heart rate, respiratory rate, oxygen saturations, blood pressure, adequacy of pulmonary ventilation, and response to care were monitored throughout the procedure. The physical status of the patient was re-assessed after the procedure. After obtaining informed consent, the endoscope was passed under direct vision. Throughout the procedure, the patient's blood pressure, pulse, and oxygen saturations were monitored continuously. The Endoscope was introduced through the mouth, and advanced to the second part of duodenum. The upper GI endoscopy was accomplished without difficulty. The patient tolerated the procedure well. Scope In: 4:14:33 PM Scope Out: 4:35:21 PM Total Procedure Duration Time 0 hours 20 minutes 48 seconds Findings: Grade I varices were found in the upper third of the esophagus. They were 5 mm in largest diameter. Hematin (altered blood/vwrfer-wtcibh-omif material) was found in the entire examined stomach. One non-bleeding cratered gastric ulcer with no stigmata of bleeding was found in the gastric fundus. The lesion was 6 mm in largest dimension. Coagulation for bleeding prevention using heater probe was successful. One non-bleeding cratered gastric ulcer was found in the gastric antrum. The lesion was 12 mm in largest dimension. No gross lesions were noted in the first portion of the duodenum. Impression: - Grade I esophageal varices. - Hematin (altered blood/saonom-nciwax-oxwn material) in the entire stomach. - Non-bleeding gastric ulcer with no stigmata of bleeding. Treated with a heater probe. - Non-bleeding gastric ulcer. - No gross lesions in the first portion of the duodenum. - No specimens collected. Recommendation: - [facility]. - Continue present medications. Procedure Code(s): --- Professional --- 84306, Esophagogastroduodenoscopy, flexible, transoral; with control of bleeding, any method CPT copyright 2021 [employer]. All rights reserved. The codes documented in this report are preliminary and upon district representative review may be revised to meet current compliance requirements. Kameron Chan DO 06/12/2023 4:51:00 PM This report has been signed electronically. Number of Addenda: 0 Note Initiated On: 06/11/2023 4:11 PM
--- NOTE | 2023-06-12 16:51 | OP.CCLET_ITS ---
06/12/2023 [facility] Re : Upper GI endoscopy procedure for Shante Peters Eitan This procedure was performed on Sunday, June 11, 2023. My impressions and recommendations are as follows: Impressions : - Grade I esophageal varices. - Hematin (altered blood/lrihvv-lxaylm-nebj material) in the entire stomach. - Non-bleeding gastric ulcer with no stigmata of bleeding. Treated with a heater probe. - Non-bleeding gastric ulcer. - No gross lesions in the first portion of the duodenum. - No specimens collected. Recommendations : - Return [facility] to [facility]. - Continue present medications. My findings are described in the full procedure note, which is enclosed. If I can be of further assistance, please feel free to contact me at . Sincerely, Kameron Chan, 06/12/2023 4:51:00 PM This report has been signed electronically.
--- NOTE | 2023-06-12 16:51 | EX.PCM.PN.GI ---
Subjective Subjective Patient underwent emergent endoscopy at the bedside yesterday. There was no sign or symptoms of active bleeding seen. She did have her previous ulcers cauterized in order to prevent rebleeding as she had a lot of bile in her stomach and I believe suffers from some form of gastroparesis that causes irritation and can disrupt healing. She is still intubated and sedated at that she does not do well on her breathing trial today. Objective Data Objective Data Vital Signs: Vital Signs Temp Pulse Resp BP Pulse Ox O2 Del Method O2 Flow Rate 98.5 F 66 20 H 87/55 L 94 Mechanical Ventilator 2 06/12/23 16:00 06/12/23 16:25 06/12/23 16:25 06/12/23 16:00 06/12/23 16:25 06/12/23 16:00 06/10/23 15:00 FiO2 35 06/12/23 16:25 Oxygen Flow Rate (L/min) 2 Oxygen Delivery Method Mechanical Ventilator Weight: 177 lb 14.609 oz Body Mass Index (BMI) 32.7 Intake & Output: Intake and Output for Last 24 Hours 06/10/23 06/11/23 06/12/23 23:59 23:59 23:59 Intake Total 1536.30 / 1561.10 1926.97 / 2006.87 719.23 / 719.23 Output Total 100 / 300 3845 / 3895 560 / 560 Balance 1436.30 / 1261.10 -1918.03 / -1888.13 159.23 / 159.23 Lab / Micro Data 06/12/23 16:09 06/12/23 03:00 Labs: Laboratory Results - last 24 hr 06/09/23 12:03: Diff Path Review Reviewed 06/10/23 05:35: Diff Path Review Reviewed 06/10/23 13:10: Diff Path Review Reviewed 06/11/23 19:45: Hgb 7.9 L 06/11/23 19:46: POC Glucose 88 06/12/23 03:00: WBC 17.8 H, RBC 2.58 L, Hgb 7.8 L, Hct 24.8 L, MCV 96.1, MCH 30.2, MCHC 31.5 L, RDW Std Deviation 62.0 H, RDW Coeff of Becca 20.3 H, Plt Count 192, MPV 9.9, Immature Gran % (Auto) 2.800 H, Neut % (Auto) 85.5 H, Lymph % (Auto) 5.1 L, Towner % (Auto) 4.4, Eos % (Auto) 2.0, Baso % (Auto) 0.2, Absolute Neuts (auto) 15.2 H, Absolute Lymphs (auto) 0.90, Nucleated RBC % 0.4, Anisocytosis 2+, Sodium 136, Potassium 4.7, Chloride 103, Carbon Dioxide 24.0, Anion Gap 9, BUN 82 H, Creatinine 5.11 H, Estim Creat Clear Calc 9.15, Est GFR (MDRD) Af Amer 11 L, Est GFR (MDRD) Non-Af 9 L, BUN/Creatinine Ratio 16.0, Glucose 81, Calcium 6.2 L* 06/12/23 11:29: POC Glucose 85 06/12/23 16:09: Hgb 7.5 L Micro: Microbiology 06/10/23 23:43 Sputum, Tracheal Aspirate Gram Stain - Final 06/10/23 23:43 Sputum, Tracheal Aspirate Respiratory Culture - Preliminary Yeast Like Organism 06/07/23 17:10 Stool Stool Occult Blood (SANJUANA) - Final Occult Blood Positive Radiography Diagnostic Testing: Radiology Impression KUB X-Ray 06/11/23 16:45 IMPRESSION: Enteric tube projects subdiaphragmatic in the stomach. Electronically Signed: Alphonso Gray MD at 17:40 EDT Reading Location ID and State: [address] [place] [address] Tel , Service support , Physical Exam Const no apparent distress and well nourished; Negative for average body habitus or healthy appearing HEENT normocephalic, head/scalp atraumatic and moist oral mucous membranes Resp normal respiratory effort, normal air movement, no retractions, no use of accessory muscles and clear to auscultation bilaterally Resp Narrative: Diminished at bases bilaterally, intubated and sedated Auscultation: Negative for rales, rhonchi or wheezes Cardio regular rate, regular rhythm, S1 normal heart sound, S2 normal heart sound, no rub, no gallops and no clicks; Negative for no murmurs Cardio Narrative: 4 out of 6 systolic murmur GI normal to inspection, nondistended, normoactive bowel sounds, soft to palpation and non-tender Extremity no clubbing, cyanosis or edema Extremity Narrative: Pedal pulses are 2+, radial pulses are 2+ General Extremity: no tenderness to palpation of joints or extremities Neuro Neuro Narrative: Patient is intubated and sedated on a ventilator Psych Psych Narrative: Intubated and sedated on a ventilator Assessment & Plan Assessment/Plan (1) Acute exacerbation of chronic obstructive pulmonary disease: PLAN: Plan Chronic GI bleed in the setting of anemia of chronic disease secondary to end-stage renal disease on dialysis/GERD ? She had an EGD back in September 2022 which showed a Dieulafoy's lesion as well as multiple gastric AVMs that were treated - Recent upper GI bleed yesterday that showed different bleeding etiology the proximal portion of the stomach and she had a polyp that was removed with bleeding stigmata at the base of her stomach. ? Continue with PPI, she had an EGD about 2 weeks ago that showed an ulcer with a visible vessel that was treated ? No signs of significant hemorrhage, vital signs are all stable and hemoglobin is 7.2 today ? She will need a capsule endoscopy as an outpatient ? Per family, her hemoglobin at dialysis was in the 10's in March and has steadily been dropping. - I will transfuse packed red blood cells today. -06/10/23-upper GI bleed from multiple sources including recent gastric ulcer bleed, possible Lidia-Connor tear, erosive esophagitis in the setting of aspirin and prednisone therapy. Her hemoglobin has gone down to 7.4 and was up to 9.4 after getting 2 units of packed red blood cells. I will give her 2 more units of packed red blood cells and schedule her for emergent endoscopy. -06/11/2023-repeat upper endoscopy. Findings: Grade I varices were found in the upper third of the esophagus. They were 5 mm in largest diameter. Hematin (altered blood/spgizk-xsbrnj-gjse material) was found in the entire examined stomach. One non-bleeding cratered gastric ulcer with no stigmata of bleeding was found in the gastric fundus. The lesion was 6 mm in largest dimension. Coagulation for bleeding prevention using heater probe was successful. One non-bleeding cratered gastric ulcer was found in the gastric antrum. The lesion was 12 mm in largest dimension. No gross lesions were noted in the first portion of the duodenum. Impression: - Grade I esophageal varices. - Hematin (altered blood/vieune-ggtzhk-sbpy material) in the entire stomach. - Non-bleeding gastric ulcer with no stigmata of bleeding. Treated with a heater probe. - Non-bleeding gastric ulcer. - No gross lesions in the first portion of the duodenum. - No specimens collected. Recommendation: -PPI every 12 hours IV. - Continue present medications. Charges/Coding Visit Charges Inpatient E&M: 93489 [facility] Hosp L3
--- NOTE | 2023-06-12 17:09 | PCM.HOSP.N ---
Hospitalist Note Called with some hypotension. Blood pressures were soft earlier in the day and was felt that this was related to her fentanyl and propofol. These have been discontinued and she is now on Precedex however her pressures are still on the low side. We repeated a stat hemoglobin and her hemoglobin was 7.5 showing relative stability. Her hemoglobin this morning was 7.8. No obvious blood loss at this time. Will repeat hemoglobin again tonight at 2100. 1 L IV fluid bolus given. Home antihypertensives are on hold. If hemoglobin drops patient will likely need transfused and need to discuss case with Dr. Chan.
[2023-06-12 17:42] LABS: Bedside Glucose 80 mg/dL (74-106)
--- NOTE | 2023-06-12 19:19 | PN.RENAL_ITS ---
Subjective Subjective Intubated. Objective Data Objective Data Vital Signs: Vital Signs Temp Pulse Resp BP Pulse Ox O2 Del Method O2 Flow Rate 98.5 F 64 20 H 92/43 L 94 Mechanical Ventilator 2 06/12/23 16:00 06/12/23 19:00 06/12/23 19:00 06/12/23 19:00 06/12/23 19:00 06/12/23 19:00 06/10/23 15:00 FiO2 35 06/12/23 19:00 Oxygen Flow Rate (L/min) 2 Oxygen Delivery Method Mechanical Ventilator Weight: 80.7 kg Body Mass Index (BMI) 32.7 Intake & Output: Intake and Output for Last 24 Hours 06/10/23 06/11/23 06/12/23 23:59 23:59 23:59 Intake Total 1536.30 / 1561.10 1926.97 / 2005.87 2036.86 / 2036.86 Output Total 100 / 300 3845 / 3895 710 / 710 Balance 1436.30 / 1261.10 -1918.03 / -1888.13 1326.86 / 1326.86 Lab / Micro Data 06/12/23 16:09 06/12/23 03:00 Labs: Laboratory Results - last 24 hr 06/09/23 12:03: Diff Path Review Reviewed 06/10/23 05:35: Diff Path Review Reviewed 06/10/23 13:10: Diff Path Review Reviewed 06/11/23 19:45: Hgb 7.9 L 06/11/23 19:46: POC Glucose 88 06/12/23 03:00: WBC 17.8 H, RBC 2.58 L, Hgb 7.8 L, Hct 24.8 L, MCV 96.1, MCH 30.2, MCHC 31.5 L, RDW Std Deviation 62.0 H, RDW Coeff of Becca 20.3 H, Plt Count 192, MPV 9.9, Immature Gran % (Auto) 2.800 H, Neut % (Auto) 85.5 H, Lymph % (Auto) 5.1 L, Sheridan % (Auto) 4.4, Eos % (Auto) 2.0, Baso % (Auto) 0.2, Absolute Neuts (auto) 15.2 H, Absolute Lymphs (auto) 0.90, Nucleated RBC % 0.4, Anisocytosis 2+, Sodium 136, Potassium 4.7, Chloride 103, Carbon Dioxide 24.0, Anion Gap 9, BUN 82 H, Creatinine 5.11 H, Estim Creat Clear Calc 9.15, Est GFR (MDRD) Af Amer 11 L, Est GFR (MDRD) Non-Af 9 L, BUN/Creatinine Ratio 16.0, Glucose 81, Calcium 6.2 L* 06/12/23 11:29: POC Glucose 85 06/12/23 16:09: Hgb 7.5 L 06/12/23 17:19: POC Glucose 80 Micro: Microbiology 06/10/23 23:43 Sputum, Tracheal Aspirate Gram Stain - Final 06/10/23 23:43 Sputum, Tracheal Aspirate Respiratory Culture - Preliminary Yeast Like Organism 06/07/23 17:10 Stool Stool Occult Blood (SANJUANA) - Final Occult Blood Positive Physical Exam Narrative Sedated on vent, no apparent distress S1, S2, RRR Lung sounds clear Abdomen soft No pitting edema Tunneled HD catheter dressing clean, dry and intact, accessed for hemodialysis Const alert, oriented x3, no apparent distress and average body habitus General Appearance: cooperative and comfortable Orientation / Consciousness: oriented to person, oriented to place and oriented to time HEENT normocephalic Eyes General Eye: normal appearance of both eyes Neck no lymphadenopathy Lymph Lymphatic: no lymphadenopathy noted Resp normal respiratory effort, normal air movement, no use of accessory muscles and clear to auscultation bilaterally Cardio regular rate Cardio Narrative: Has harsh systolic murmur Rate: regular rate Heart Sounds: murmur systolic / harsh GI normal to inspection, nondistended, normoactive bowel sounds and non-tender Auscultation: normoactive bowel sounds Palpation: soft Extremity no clubbing, cyanosis or edema Skin no rashes or lesions noted Neuro Sensorium / Orientation: awake, alert, oriented to person, oriented to place and oriented to time Assessment & Plan Assessment/Plan (1) ESRD on dialysis: PLAN: Plan Impression/Plan: The patient is a 77-year-old woman with past history of type 2 diabetes mellitus, hypertension, CAD, HFpEF, anemia, GERD, ESRD, and anxiety disorder. The patient is admitted to hospital on 06/07/2023 with acute blood loss anemia due to GI bleed. Nephrology is following for ESRD and dialysis management. - ESRD. The patient dialyzes on MWF schedule at [facility]. Will maintain Sunday, Sunday, Sunday schedule. -Upper GI bleed secondary to gastric ulcers. Gastroenterology following -Acute hypoxic respiratory failure. Patient was intubated during endoscopic evaluation.
[2023-06-12] MEDS: dexMEDEtomidine 400 MCG in 0.9% Normal Saline (100mL Bag) 96 ML 12.1 MCG CONT INF (19:45)
[2023-06-12] MEDS: Atorvastatin Calcium 80 MG Tablet GT (21:01)
[2023-06-12] MEDS: Amitriptyline 100 MG Tablet GT (21:01)
[2023-06-12] MEDS: Pramipexole Di-HCl 0.25 MG Tablet 0.75 MG GT (21:02)
[2023-06-12 21:12] LABS: Hemoglobin 7.8 g/dL (12.0-15.0)
[2023-06-12] MEDS: Norepinephrine 8 MG in 0.9% Normal Saline (250mL Bag) 242 ML 9.4 MG CONT INF (21:15)
[2023-06-13] VITALS (53 sets, daily range): BP systolic 93–189; BP diastolic 44–98; PULSE 61–114; RESP 12–80; TEMP 36.4–37.1; O2SAT 91–100; BMI 33.0; BMI 33.3; BMI 32.1
[2023-06-13 01:11] LABS: Bedside Glucose 83 mg/dL (74-106)
[2023-06-13] MEDS: Ipratropium/Albuterol Sulfate 3 ML AMPUL.NEB INHALATION ×4 (01:58→19:00)
[2023-06-13] MEDS: fentaNYL drip 100 ML 12.5 MCG CONT INF (02:00)
[2023-06-13] MEDS: Pantoprazole Sodium 80 MG in 0.9% Normal Saline (100mL Bag) 80 ML 10 MG CONT INF ×3 (02:13→20:43)
[2023-06-13] MEDS: dexMEDEtomidine 400 MCG in 0.9% Normal Saline (100mL Bag) 96 ML 20.2 MCG CONT INF ×3 (02:13→11:19)
[2023-06-13 03:30] LABS: Absolute Lymphocyte Count 0.57 X10^3/uL (0.83-4.51); Absolute Neutrophil Count 13.3 X10^3/uL (2.0-7.7); Basophil# 0.03 X10^3/uL; Basophil% 0.2 % (0-1); Eosinophil# 0.25 X10^3/uL; Eosinophils% 1.6 % (0-5); Hematocrit 24.8 % (37-47); Hemoglobin 7.6 g/dL (12.0-15.0); Lymphocyte # 0.57 X10^3/ul (0.83-4.51); Lymphocyte % 3.7 % (19-41); Mean Corp Hgb Conc 30.6 g/dL (32-36); Mean Corpuscular Hgb 29.9 pg (27.0-32.0); Mean Corpuscular Volume 97.6 fL (81-99); Mean Platelet Vol. 10.3 fl (6.2-12.0); Monocyte# 0.72 X10^3/uL; Monocyte% 4.7 % (0-10); NRBC Flagged by Analyzer 0.1 % (0-5); Neutrophil # 13.25 X10^3/uL (2.7-7.7); Neutrophil % 87.2 % (47-70); POSITIVE DIFFERENTIAL YES; Platelet Count 201 K/mm3 (150-450); RBC Distribution Width CV 19.2 % (11.6-14.6); RBC Distribution Width SD 64.9 fl (35.1-43.9); Red Blood Count 2.54 M/mm3 (4.2-5.4); White Blood Count 15.2 K/mm3 (4.4-11.0)
[2023-06-13 04:01] LABS: Anion Gap 12 (5-15); BUN 94 mg/dL (7-18); BUN/Creat Ratio 14.5 RATIO (10-20); Calcium,Total 5.5 mg/dL (8.5-10.1); Chloride 104 mmol/L (98-107); Creatinine, Serum 6.49 mg/dL (0.55-1.02); EST Glomerular Filtration Rate 7 mL/min (>60); Est Glom Filt Rate - Afr Amer 8 mL/min (>60); Estimated Creatinine Clearance 7.26 ml/min; Glucose 85 mg/dL (74-106); Potassium 4.7 mmol/L (3.5-5.1); Sodium Level 136 mmol/L (136-145)
--- NOTE | 2023-06-13 06:52 | PCM.PN.INT ---
Assessment & Plan Assessment/Plan (1) ABLA (acute blood loss anemia): PLAN: Plan RECOMMENDATIONS: 1. Continue invasive mechanical ventilatory support. 2. Bronchodilator therapy. 3. Transfuse blood products to maintain a hemoglobin at or above 7 g/dL. 4. Continue PPI therapy. 5. Dialysis support per nephrology recommendations. 6. Holding on extubation until mentation improves. IMPRESSIONS: 1. Acute blood loss anemia Secondary to upper GI blood loss. The patient is status post endoscopy x 3. Plan to continue current supportive measures and transfuse blood products to maintain hemoglobin at or above 7 g/dL. Continue PPI therapy. 2. Acute on chronic hypoxemic respiratory failure The patient was intubated in the setting of a CODE BLUE during her second endoscopic procedure. CODE STATUS was previously documented to be DNR CCA without intubation. However, intubation was felt to be required to facilitate the successful completion of her endoscopic evaluation. Plan to continue assist-control mode of mechanical ventilation and wean FiO2 and PEEP to maintain saturations at or above 90%. Continue bronchodilator therapy. Although the patient has done okay on a breathing trial this morning, her mentation would preclude a successful attempt at extubation. Continue to provide supportive care and minimize sedating medications as tolerated. 3. End-stage renal disease on hemodialysis Nephrology following to assist with hemodialysis needs. 4. Encephalopathy Likely metabolic in etiology with elevated BUN. Recommend limiting sedative medications while on ventilator. Continue current supportive care. 5. History of COPD/obstructive sleep apnea/secondary pulmonary hypertension/coronary artery disease status post CABG/diabetes mellitus Complicates care, management, recovery and prognosis. Continue supportive measures as noted above. TIME: 33 minutes of critical care time, independent of procedures, was spent addressing the patient's acute blood loss anemia, acute on chronic hypoxemic respiratory failure, end-stage renal disease on hemodialysis, review of all data and collaboration with the care team. Subjective Subjective The patient was seen and examined at the bedside this morning. Events from the last 24 hours have been reviewed. The patient is currently afebrile, hemodynamically stable and maintaining appropriate oxygen saturations on spontaneous mode of mechanical ventilation with an FiO2 requirement of 35%. The patient has done relatively well on a breathing trial this morning. However, she is not currently able to follow simple commands. The patient did receive some small supplemental IV fluid resuscitation yesterday due to hypotension and was transiently on Levophed. She has been weaned from vasopressor support. Hemoglobin is stable at 7.6 g/dL. BUN remains elevated at 94. Objective Data Objective Data The patient's most recent lab work, culture data and imaging studies have all been personally reviewed. Surface echocardiogram from May 2023 demonstrated stage II diastolic dysfunction with an ejection fraction of 60%. Pulmonary artery systolic pressure was estimated to be 55 mmHg. COVID PCR was positive on June 01. Stool for occult blood was positive on June 06. Sputum culture is demonstrating growth of yeastlike organism. Vital Signs: Vital Signs Temp Pulse Resp BP Pulse Ox O2 Del Method O2 Flow Rate 98.8 F 69 20 H 115/53 L 93 Mechanical Ventilator 35 06/13/23 04:00 06/13/23 06:00 06/13/23 06:00 06/13/23 06:00 06/13/23 06:00 06/13/23 06:00 06/12/23 23:00 FiO2 35 06/13/23 06:00 Oxygen Flow Rate (L/min) 35 Oxygen Delivery Method Mechanical Ventilator Weight: 180 lb 15.992 oz Body Mass Index (BMI) 33.0 Intake & Output: Intake and Output for Last 24 Hours 06/11/23 06/12/23 06/13/23 23:59 23:59 23:59 Intake Total 1926.97 / 2006.87 2172.50 / 2257.58 390.21 / 390.21 Output Total 3845 / 3895 710 / 740 200 / 200 Balance -1918.03 / -1888.13 1462.50 / 1517.58 190.21 / 190.21 Lab / Micro Data Attestation: I reviewed the patient's lab results. 06/13/23 03:10 06/13/23 03:10 Labs: Laboratory Results - last 24 hr 06/09/23 12:03: Diff Path Review Reviewed 06/10/23 05:35: Diff Path Review Reviewed 06/10/23 13:10: Diff Path Review Reviewed 06/12/23 11:29: POC Glucose 85 06/12/23 16:09: Hgb 7.5 L 06/12/23 17:19: POC Glucose 80 06/12/23 20:55: Hgb 7.8 L 06/13/23 00:48: POC Glucose 83 06/13/23 03:10: WBC 15.2 H, RBC 2.54 L, Hgb 7.6 L, Hct 24.8 L, MCV 97.6, MCH 29.9, MCHC 30.6 L, RDW Std Deviation 64.9 H, RDW Coeff of Becca 19.2 H, Plt Count 201, MPV 10.3, Immature Gran % (Auto) 2.600 H, Neut % (Auto) 87.2 H, Lymph % (Auto) 3.7 L, Hall % (Auto) 4.7, Eos % (Auto) 1.6, Baso % (Auto) 0.2, Absolute Neuts (auto) 13.3 H, Absolute Lymphs (auto) 0.57 L, Nucleated RBC % 0.1, Sodium 136, Potassium 4.7, Chloride 104, Carbon Dioxide 20.0 L, Anion Gap 12, BUN 94 H, Creatinine 6.49 H, Estim Creat Clear Calc 7.26, Est GFR (MDRD) Af Amer 8 L, Est GFR (MDRD) Non-Af 7 L, BUN/Creatinine Ratio 14.5, Glucose 85, Calcium 5.5 L*, Cortisol 11.30 Micro: Microbiology 06/10/23 23:43 Sputum, Tracheal Aspirate Gram Stain - Final 06/10/23 23:43 Sputum, Tracheal Aspirate Respiratory Culture - Preliminary Yeast Like Organism 06/07/23 17:10 Stool Stool Occult Blood (SANJUANA) - Final Occult Blood Positive ABG Data ABG results: ABG 06/10/23 06/10/23 17:42 20:41 Specimen Type ART ART Sample Site L Radial L Radial pH 7.19 L* 7.32 L Bicarbonate Actual 22.8 20.5 L Total CO2 25 22 Base Excess -5 L -6 L O2 Saturation 100 H 96 O2 % 80.0 50.0 ABG pCO2 59.4 H 39.4 ABG pO2 300 H 88 Abram Test Positive N/A Respiration Rate 14 20 O2 Delivery Device Adult Vent Adult Vent Vent Mode AC AC Tidal Volume 400.0 400.0 POC PEEP 5 5 Crit Call To/Read Back Yes Blood Gas Notified Whom KORAM Blood Gas Notified Time 17:43:45 Radiography Diagnostic Testing: Radiology Impression KUB X-Ray 06/11/23 16:45 IMPRESSION: Enteric tube projects subdiaphragmatic in the stomach. Electronically Signed: Alphonso Gray MD at 17:40 EDT , Physical Exam Const Constitutional Narrative: Remains intubated and mechanically ventilated. Currently tolerating SBT. HEENT normocephalic and head/scalp atraumatic HEENT Narrative: Bloody output from OG tube. Mouth: endotracheal tube in place and OG tube in place Eyes EOMs intact bilaterally and conjunctivae normal Neck supple General: trachea midline Chest inspection of chest normal Resp Auscultation: diminished lung sounds; Negative for rales, rhonchi or wheezes Cardio regular rate, S1 normal heart sound and S2 normal heart sound Heart Sounds: murmur GI soft to palpation and non-tender Extremity no clubbing, cyanosis or edema Skin no rashes or lesions noted Neuro Neuro Narrative: Minimally sedated. Will open eyes but will not follow any commands. Charges/Coding Procedures Hospitalists Procedures: 26543 Critical Care 1st Hr
[2023-06-13] MEDS: Budesonide Respules 0.5 MG/2 ML AMPUL.NEB. INHALATION (07:18)
[2023-06-13] MEDS: Pramipexole Di-HCl 0.5 MG Tablet GT ×2 (07:56→16:07)
[2023-06-13] MEDS: Chlorhexidine 15 ML PO (07:56)
[2023-06-13] MEDS: CHLORHEXIDINE GLUC 2% CLOTH 1 EACH TOWELETTE TOPICAL (07:56)
--- NOTE | 2023-06-13 08:39 | PCM.PN.HOSP ---
Reason for Visit Reason for Visit: Abnormal lab Subjective Subjective Patient with some lower blood pressures through the evening and low-dose Levophed was started. It is currently off and her blood pressures are actually quite elevated with her most recent being 176/75. She is on a breathing trial. We suspect her blood pressure issues may be due to her sedation as her hemoglobin has been stable and she shows no signs of infection however she also takes steroids quite frequently as an outpatient so stress dose steroids were started and will be weaned accordingly. She is doing a bit better and her breathing trial at this time. Getting ready to set up dialysis. Objective Data Objective Data Vital Signs: Vital Signs Temp Pulse Resp BP Pulse Ox O2 Del Method O2 Flow Rate 98.2 F 85 15 176/75 H 94 Mechanical Ventilator 35 06/13/23 08:00 06/13/23 08:00 06/13/23 08:00 06/13/23 08:00 06/13/23 08:00 06/13/23 08:00 06/12/23 23:00 FiO2 35 06/13/23 08:00 Oxygen Flow Rate (L/min) 35 Oxygen Delivery Method Mechanical Ventilator Weight: 82.1 kg Body Mass Index (BMI) 33.0 Intake & Output: Intake and Output for Last 24 Hours 06/11/23 06/12/23 06/13/23 23:59 23:59 23:59 Intake Total 1926.97 / 2006.87 2172.50 / 2257.58 474.79 / 474.79 Output Total 3845 / 3895 710 / 740 200 / 200 Balance -1918.03 / -1888.13 1462.50 / 1517.58 274.79 / 274.79 Lab / Micro Data 06/13/23 03:10 06/13/23 03:10 Labs: Laboratory Results - last 24 hr 06/09/23 12:03: Diff Path Review Reviewed 06/10/23 05:35: Diff Path Review Reviewed 06/10/23 13:10: Diff Path Review Reviewed 06/12/23 11:29: POC Glucose 85 06/12/23 16:09: Hgb 7.5 L 06/12/23 17:19: POC Glucose 80 06/12/23 20:55: Hgb 7.8 L 06/13/23 00:48: POC Glucose 83 06/13/23 03:10: WBC 15.2 H, RBC 2.54 L, Hgb 7.6 L, Hct 24.8 L, MCV 97.6, MCH 29.9, MCHC 30.6 L, RDW Std Deviation 64.9 H, RDW Coeff of Becca 19.2 H, Plt Count 201, MPV 10.3, Immature Gran % (Auto) 2.600 H, Neut % (Auto) 87.2 H, Lymph % (Auto) 3.7 L, Pacific % (Auto) 4.7, Eos % (Auto) 1.6, Baso % (Auto) 0.2, Absolute Neuts (auto) 13.3 H, Absolute Lymphs (auto) 0.57 L, Nucleated RBC % 0.1, Sodium 136, Potassium 4.7, Chloride 104, Carbon Dioxide 20.0 L, Anion Gap 12, BUN 94 H, Creatinine 6.49 H, Estim Creat Clear Calc 7.26, Est GFR (MDRD) Af Amer 8 L, Est GFR (MDRD) Non-Af 7 L, BUN/Creatinine Ratio 14.5, Glucose 85, Calcium 5.5 L*, Cortisol 11.30 Micro: Microbiology 06/10/23 23:43 Sputum, Tracheal Aspirate Gram Stain - Final 06/10/23 23:43 Sputum, Tracheal Aspirate Respiratory Culture - Preliminary Yeast Like Organism 06/07/23 17:10 Stool Stool Occult Blood (SANJUANA) - Final Occult Blood Positive Physical Exam Const no apparent distress and well nourished; Negative for average body habitus or healthy appearing Constitutional Narrative: Obese, older, white female, intubated and sedated, appears comfortable, currently appears nontoxic, ICU nurse and dialysis nurses are at the bedside getting set up for dialysis. HEENT normocephalic, head/scalp atraumatic and moist oral mucous membranes HEENT Narrative: ET tube and OG are in place Resp normal respiratory effort, normal air movement, no retractions and no use of accessory muscles Resp Narrative: Scattered rhonchi and crackles Auscultation: crackles and rhonchi; Negative for wheezes Cardio regular rate, regular rhythm, S1 normal heart sound, S2 normal heart sound, no rub, no gallops and no clicks; Negative for no murmurs Cardio Narrative: 4 out of 6 systolic murmur GI normal to inspection, nondistended, normoactive bowel sounds, soft to palpation and non-tender Extremity Extremity Narrative: Pedal pulses are 2+, radial pulses are 2+, no clubbing or cyanosis, trace edema distal upper and lower extremities Neuro Neuro Narrative: Patient is intubated and sedated on a ventilator, opens eyes but does not follow command, does blink to threat Psych Psych Narrative: Intubated and sedated on a ventilator Assessment & Plan Assessment/Plan (1) Gastric peptic ulcer: (2) Upper GI bleed: (3) Acute on chronic anemia: (4) Acute hypoxic respiratory failure: PLAN: Plan Acute hypoxic and hypercapnic respiratory failure -Intubated during endoscopy due to decompensation despite patient being in no intubation -This was discussed with family and they were okay with intubation for short period of time given the fact that it was decompensation during the procedure per previous documentation -Currently on mechanical ventilator with an SpO2 of 94% and FiO2 of 35% -Spontaneous breathing trials per protocol--> eyes are open but patient is not following commands however she is doing better and her breathing trials -Mental status is currently the limitation to extubation at this time -Wean ventilator as able -CCM/pulmonary medicine following-appreciate input -Plan per discussion with family yesterday with pulm critical care is for her to remain intubated for couple more days and if she shows no sign of progress to terminally extubate Upper GI bleed secondary to gastric ulcers -Initial EGD done on 06/08/2023 and showed grade 2 esophageal varices with oozing gastric ulcer that was injected and treated with heater probe as well as a single gastric polyp that was resected and retrieved and a single bleeding angiodysplastic lesion in the duodenum -Recurrent bleeding so emergent repeat EGD done on 06/10/2023 that demonstrated grade 1 esophageal varices with red blood in the entire stomach, oozing gastric ulcer with a visible vessel that was treated with heater probe and hemostatic spray and injected, a spurting gastric ulcer with visible vessel that was treated with heater probe, hemostatic spray and clips were placed. This too was injected. -Repeat EGD done yesterday 06/11/2023 with no obvious bleeding noted -Hemoglobin is currently stable -Will continue Protonix drip for another 24 hours and if hemoglobin remained stable will transition to oral PPI twice daily -Start Carafate once extubated -GI is following-appreciate input Esophageal varices -Grade 2 noted on initial EGD -With upper GI bleed and esophageal varices will continue ceftriaxone for SBP prophylaxis Acute on chronic anemia due to blood loss with chronic anemia secondary to renal disease -Appears that her baseline hemoglobin runs between 7.5 and 9.5 - hemoglobin improved from 6.3-8.6 after transfusion and has stabilized between 7.5 and 8.0 -Drop in hemoglobin and required transfusion yesterday was probably equilibration from previous bleed as EGD did not show any signs of active bleeding -I do have 2 units of packed red blood cells on hold -With stability no reason for ongoing serial monitoring unless a change in status Hypocalcemia -When corrected for albumin calcium is normal -no intervention required CAD/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/mild aortic stenosis -History of CABG x 4 -EF is 60% with stage II diastolic dysfunction, pulmonary pressures are 55 mmHg, mild aortic stenosis with a mean valve gradient of 16 mmHg, moderate mitral valve insufficiency noted on last echo -Continue to hold aspirin -Hold Imdur/hydralazine/amlodipine/Bumex/prazosin until her pressures stabilize -Will continue Coreg but hold parameters for systolic blood pressure less than 100 or MAP less than 70 -Continue statin Moderate secondary pulmonary hypertension -Secondary to COPD-who group 2 -Pulmonary pressures on last echo were 55 mmHg -Bumex on hold -Majority of fluid management for her is managed with dialysis End-stage renal disease-HD dependent -Patient is typically dialyzed M/W/F--> continue dialysis per nephrology -Continue home phosphate binder -Nephrology following -Appreciate input Recent COVID-19 infection -Seems to be stable from the standpoint Chronic hypoxic respiratory failure secondary to COPD -Patient on 2 L of oxygen at baseline -Continue bronchodilators -Patient is currently mechanically ventilated -Hold home guaifenesin -Hold home scheduled inhalers DM-2 -Blood glucose is well-controlled with current a.m. fasting being 85 -Does not appear like patient is taking any medications for glucose control at this time -Continue SSI every 6 -Accu-Cheks as ordered RLS -Continue home Mirapex GERD -IV PPI as noted above Anxiety/depression -Continue home amitriptyline DVT prophylaxis -SCDs -Chemoprophylaxis contraindicated due to bleeding CODE STATUS -DNR CCA okay for short-term intubation due to decompensation during procedure however once extubated plan is for no reintubation Disposition: -Plan is to see how she does over the next 24 to 48 hours and then plan for terminal extubation if she cannot be stable for therapeutic extubate Charges/Coding Visit Charges Inpatient E&M: 91906 Subs Hosp L2
[2023-06-13] MEDS: 0.9% Normal Saline 1,000 ML IV.SOLN. 1000 ML OPERA.SITE (08:43)
[2023-06-13] MEDS: Heparin 10,000 UNITS/10 ML Vial IV (08:44)
[2023-06-13] MEDS: 0.9% Saline Lock 10 ML Syringe IV ×4 (08:45→23:28)
--- NOTE | 2023-06-13 10:02 | CASEMGMT ---
Social Work SW attended ICU rounds. Pt's dgts Doris and Adilene present. After rounds, SW met with daughters in family waiting room. Emotional support provided and SW and family discussed choices regarding intubation and goals of care. SW will remain available for additional support as needed. DEXTER Aceves
[2023-06-13] MEDS: Epoetin Alfa epbx 10,000 UNIT/ML 20000 UNIT IV (11:06)
[2023-06-13] MEDS: PureFlow B 2K Dialysis Soln 1 BAG 6 BAG PF (11:12)
[2023-06-13 11:44] LABS: Bedside Glucose 92 mg/dL (74-106)
[2023-06-13] MEDS: Ceftriaxone 1 GM/50 ML BAG IV (12:45)
[2023-06-13] MEDS: Hydrocortisone Sod Succinate 100 MG/2 ML Vial IV ×2 (12:45→20:43)
[2023-06-13] MEDS: Carvedilol 12.5 MG Tablet GT (12:45)
[2023-06-13] MEDS: Ondansetron 4 MG/2 ML Vial IV ×2 (13:18→23:28)
--- NOTE | 2023-06-13 14:59 | PCM.PN.REN ---
Subjective Subjective Resting in bed, no apparent distress. Remains on ventilator support. Objective Data Objective Data Vital Signs: Vital Signs Temp Pulse Resp BP Pulse Ox O2 Del Method O2 Flow Rate 97.6 F L 79 12 93/51 L 96 Mechanical Ventilator 35 06/13/23 14:00 06/13/23 14:53 06/13/23 14:53 06/13/23 14:00 06/13/23 14:53 06/13/23 14:00 06/12/23 23:00 FiO2 35 06/13/23 14:00 Oxygen Flow Rate (L/min) 35 Oxygen Delivery Method Mechanical Ventilator Weight: 79.2 kg Body Mass Index (BMI) 32.1 Intake & Output: Intake and Output for Last 24 Hours 06/11/23 06/12/23 06/13/23 23:59 23:59 23:59 Intake Total 1926.97 / 2005.87 2172.50 / 2257.58 766.09 / 766.09 Output Total 3845 / 3895 710 / 740 6190 / 6190 Balance -1918.03 / -1888.13 1462.50 / 1517.58 -5423.91 / -5423.91 Lab / Micro Data 06/13/23 03:10 06/13/23 03:10 Labs: Laboratory Results - last 24 hr 06/12/23 16:09: Hgb 7.5 L 06/12/23 17:19: POC Glucose 80 06/12/23 20:55: Hgb 7.8 L 06/13/23 00:48: POC Glucose 83 06/13/23 03:10: WBC 15.2 H, RBC 2.54 L, Hgb 7.6 L, Hct 24.8 L, MCV 97.6, MCH 29.9, MCHC 30.6 L, RDW Std Deviation 64.9 H, RDW Coeff of Becca 19.2 H, Plt Count 201, MPV 10.3, Immature Gran % (Auto) 2.600 H, Neut % (Auto) 87.2 H, Lymph % (Auto) 3.7 L, Leon % (Auto) 4.7, Eos % (Auto) 1.6, Baso % (Auto) 0.2, Absolute Neuts (auto) 13.3 H, Absolute Lymphs (auto) 0.57 L, Nucleated RBC % 0.1, Sodium 136, Potassium 4.7, Chloride 104, Carbon Dioxide 20.0 L, Anion Gap 12, BUN 94 H, Creatinine 6.49 H, Estim Creat Clear Calc 7.26, Est GFR (MDRD) Af Amer 8 L, Est GFR (MDRD) Non-Af 7 L, BUN/Creatinine Ratio 14.5, Glucose 85, Calcium 5.5 L*, Cortisol 11.30 06/13/23 11:24: POC Glucose 92 Micro: Microbiology 06/10/23 23:43 Sputum, Tracheal Aspirate Gram Stain - Final 06/10/23 23:43 Sputum, Tracheal Aspirate Respiratory Culture - Final Brina albicans Yeast, not Brina albicans 06/07/23 17:10 Stool Stool Occult Blood (SANJUANA) - Final Occult Blood Positive Physical Exam Narrative No apparent distress S1, S2, RRR lung sounds clear anteriorly Abdomen soft No pitting edema Tunneled HD catheter dressing clean, dry and intact Assessment & Plan Assessment/Plan (1) ESRD on dialysis: PLAN: Plan Impression/Plan: The patient is a 77-year-old woman with past history of type 2 diabetes mellitus, hypertension, CAD, HFpEF, anemia, GERD, ESRD, and anxiety disorder. The patient is admitted to hospital on 06/07/2023 with acute blood loss anemia due to GI bleed. Nephrology is following for ESRD and dialysis management. - ESRD. The patient dialyzes on MWF schedule at [facility]. Patient underwent hemodialysis today and tolerated around 2.5 L fluid removal. -Upper GI bleed secondary to gastric ulcers. Gastroenterology following. Hgb 7.6. -Acute hypoxic respiratory failure. Patient was intubated during endoscopic evaluation. Discussed with ICU staff, plan per family discussion is to extubate patient. Possibly to undergo extubation today
--- NOTE | 2023-06-13 16:14 | CHAPLAIN ---
Type of Pastoral Visit ___ Initial Visit _x__ Follow-up Visit ___ On-call Visit ___ General Patient Visit ___ Spiritual Assessment ___ Family Conference ___ Bereavement ___ Rapid Response ___ Code Blue ___ Other (describe below) Pastoral Care Referral From ___ Patient _x__ Family ___ Nurse ___ Physician ___ Sports Editor ___ Junior Electrical Engineer ___ Other (describe below) Sacrament/Intervention ___ Active listening ___ Anointing ___ Latter Day ___ Bereavement ___ Communion ___ Nichole exploration ___ ___ Life review _x__ Prayer ___ Reconciliation ___ Sacrament of Sick _x__ Supportive presence ___ Wedding ___ Other (describe below) Pastoral Comments met with family in the waiting room prior to extubation of the patient; family members have gathered together prior to extubation; daughters request a prayer for pt and then for another prayer in the room alone with pr prior to extubation; both requests completed
[2023-06-13] MEDS: HYDROmorphone 0.5 MG/0.5 ML SYRINGE IV (16:43)
--- NOTE | 2023-06-13 16:55 | PN.HOSP_ITS ---
Hospitalist Note Family requested to have a conversation earlier this afternoon with regards to goals of care. We had a long talk with regards to terminal extubation with no plans for reintubation. At this point they feel that they would not like to have her intubated any longer. She is doing well and her spontaneous breathing trial and they would like to see how she does off the ventilator. We were able to extubate her at about 445. She was extubated to 4 L nasal cannula and doing okay. Nursing is to let me know how she does clinically and if she dec ompensates comfort meds will be ordered but for now we will continue what we are doing. She did receive 0.25 mg of Dilaudid shortly after extubation as she did have some air hunger immediately after extubation however she looked much better after she received the medication. She was able to interact and follow commands. Family was updated with regards to extubation and at the bedside.
[2023-06-13 17:33] LABS: Bedside Glucose 132 mg/dL (74-106)
[2023-06-13] MEDS: Albuterol 2.5 MG/3 ML VIAL.NEB. INHALATION (22:35)
[2023-06-13] MEDS: proCHLORPERazine 10 MG/2 ML Vial 5 MG IV (23:34)
[2023-06-13 23:49] LABS: Bedside Glucose 125 mg/dL (74-106)
[2023-06-14] VITALS (23 sets, daily range): BP systolic 118–174; BP diastolic 52–87; PULSE 73–95; RESP 12–23; TEMP 36.3–36.6; O2SAT 95–100; BMI 32.7
[2023-06-14] MEDS: Ipratropium/Albuterol Sulfate 3 ML AMPUL.NEB INHALATION ×3 (01:25→18:58)
[2023-06-14 03:58] LABS: Absolute Lymphocyte Count 0.16 X10^3/uL (0.83-4.51); Basophil# 0.04 X10^3/uL; Basophil% 0.2 % (0-1); Hematocrit 30.1 % (37-47); Hemoglobin 9.3 g/dL (12.0-15.0); Lymphocyte # 0.16 X10^3/ul (0.83-4.51); Lymphocyte % 0.9 % (19-41); Mean Corp Hgb Conc 30.9 g/dL (32-36); Mean Corpuscular Hgb 29.8 pg (27.0-32.0); Mean Corpuscular Volume 96.5 fL (81-99); Monocyte# 0.29 X10^3/uL; Monocyte% 1.6 % (0-10); NRBC Flagged by Analyzer 0.1 % (0-5); Neutrophil # 17.03 X10^3/uL (2.7-7.7); Neutrophil % 94.7 % (47-70); POSITIVE DIFFERENTIAL YES; Platelet Count 265 K/mm3 (150-450); RBC Distribution Width CV 18.2 % (11.6-14.6); RBC Distribution Width SD 61.1 fl (35.1-43.9); Red Blood Count 3.12 M/mm3 (4.2-5.4)
[2023-06-14 04:25] LABS: AST(SGOT) 23 U/L (15-37); Alanine Aminotransfer ALT/SGPT 9 U/L (13-56); Albumin, Serum 2.4 g/dL (3.2-5.0); Alkaline Phosphatase 87 U/L (45-117); Anion Gap 13 (5-15); BUN 64 mg/dL (7-18); BUN/Creat Ratio 13.3 RATIO (10-20); Bilirubin, Direct 0.18 mg/dL (0.00-0.30); Calcium,Total 6.6 mg/dL (8.5-10.1); Chloride 102 mmol/L (98-107); Creatinine, Serum 4.82 mg/dL (0.55-1.02); EST Glomerular Filtration Rate 9 mL/min (>60); Est Glom Filt Rate - Afr Amer 11 mL/min (>60); Estimated Creatinine Clearance 9.77 ml/min; Globulin 3.9 g/dL (2.2-4.2); Glucose 132 mg/dL (74-106); Potassium 4.9 mmol/L (3.5-5.1); Protein, Total 6.3 g/dL (6.4-8.2); Sodium Level 135 mmol/L (136-145)
[2023-06-14] MEDS: Hydrocortisone Sod Succinate 100 MG/2 ML Vial IV (05:13)
[2023-06-14] MEDS: hydrALAZINE 20 MG/ML Vial 10 MG IV ×2 (05:13→17:09)
[2023-06-14] MEDS: 0.9% Saline Lock 10 ML Syringe IV ×4 (05:13→17:09)
[2023-06-14 05:35] LABS: Bedside Glucose 120 mg/dL (74-106)
[2023-06-14] MEDS: Pantoprazole Sodium 80 MG in 0.9% Normal Saline (100mL Bag) 80 ML 10 MG CONT INF ×2 (06:24→15:49)
[2023-06-14] MEDS: Labetalol (Prefilled) 20 MG/4 ML IV ×2 (07:35→13:38)
--- NOTE | 2023-06-14 07:48 | PN.HOSP_ITS ---
Reason for Visit Reason for Visit: Abnormal labs Subjective Subjective Patient was extubated late yesterday afternoon and is doing well. She has been weaned to 2 L nasal cannula. Had 1 episode of emesis at about 1130 last night and states she no longer has any nausea. No complaints at this time other than her mouth is dry. I did discuss with the above speech therapy see her and hopefully be able to start her on a diet later today. P.o. meds are on hold until we have that evaluation. I will go ahead and get her some IV blood pressure medication and substitution for her oral medication until we can start p.o. medication. Objective Data Objective Data Vital Signs: Vital Signs Temp Pulse Resp BP Pulse Ox O2 Del Method O2 Flow Rate 97.7 F L 89 20 H 168/64 H 97 Nasal Cannula 3 06/14/23 04:00 06/14/23 07:00 06/14/23 07:00 06/14/23 07:00 06/14/23 07:00 06/14/23 07:00 06/14/23 07:00 FiO2 35 06/13/23 16:00 Oxygen Flow Rate (L/min) 3 Oxygen Delivery Method Nasal Cannula Weight: 80.6 kg Body Mass Index (BMI) 32.7 Intake & Output: Intake and Output for Last 24 Hours 06/12/23 06/13/23 06/14/23 23:59 23:59 23:59 Intake Total 2172.50 / 2257.58 894.09 / 894.09 96.83 / 96.83 Output Total 710 / 740 6410 / 6410 45 / 45 Balance 1462.50 / 1517.58 -5515.91 / -5515.91 51.83 / 51.83 Lab / Micro Data 06/14/23 03:53 06/14/23 03:53 Labs: Laboratory Results - last 24 hr 06/13/23 11:24: POC Glucose 92 06/13/23 17:11: POC Glucose 132 H 06/13/23 23:31: POC Glucose 125 H 06/14/23 03:53: WBC 18.0 H, RBC 3.12 L, Hgb 9.3 L, Hct 30.1 L, MCV 96.5, MCH 29.8, MCHC 30.9 L, RDW Std Deviation 61.1 H, RDW Coeff of Becca 18.2 H, Plt Count 265, MPV 10.0, Immature Gran % (Auto) 2.600 H, Neut % (Auto) 94.7 H, Lymph % (Auto) 0.9 L, Ida % (Auto) 1.6, Eos % (Auto) 0.0, Baso % (Auto) 0.2, Absolute Neuts (auto) 17.0 H, Absolute Lymphs (auto) 0.16 L, Nucleated RBC % 0.1, Sodium 135 L, Potassium 4.9, Chloride 102, Carbon Dioxide 20.0 L, Anion Gap 13, BUN 64 H, Creatinine 4.82 H, Estim Creat Clear Calc 9.77, Est GFR (MDRD) Af Amer 11 L, Est GFR (MDRD) Non-Af 9 L, BUN/Creatinine Ratio 13.3, Glucose 132 H, Calcium 6.6 L, Total Bilirubin 0.30, Direct Bilirubin 0.18, AST 23, ALT 9 L, Alkaline Phosphatase 87, Total Protein 6.3 L, Albumin 2.4 L, Globulin 3.9 06/14/23 05:13: POC Glucose 120 H Micro: Microbiology 06/10/23 23:43 Sputum, Tracheal Aspirate Gram Stain - Final 06/10/23 23:43 Sputum, Tracheal Aspirate Respiratory Culture - Final Brina albicans Yeast, not Brina albicans 06/07/23 17:10 Stool Stool Occult Blood (SANJUANA) - Final Occult Blood Positive Physical Exam Const alert, oriented x3, no apparent distress and well nourished; Negative for average body habitus or healthy appearing Constitutional Narrative: Obese, older, white female, sitting up in bed watching television, appears comfortable, nontoxic General Appearance: cooperative and well developed HEENT normocephalic and head/scalp atraumatic HEENT Narrative: Mouth is dry, patient is edentulous, Mallampati is 2, no thrush Eyes Negative for conjunctivae normal Resp normal respiratory effort, normal air movement, no retractions, no use of accessory muscles and clear to auscultation bilaterally Resp Narrative: Few scattered end expiratory wheezes but otherwise clear, patient does have intermittent cough that is moderately weak Auscultation: wheezes; Negative for crackles, rales or rhonchi Cardio regular rate, regular rhythm, S1 normal heart sound, S2 normal heart sound, no rub, no gallops and no clicks; Negative for no murmurs Cardio Narrative: 4 out of 6 systolic murmur GI normal to inspection, nondistended, normoactive bowel sounds, soft to palpation and non-tender Extremity no clubbing, cyanosis or edema Extremity Narrative: Dorsalis pedis pulses are 2+ Neuro oriented x3, CN's II-XII intact bilaterally, moves all extremities and no focal motor deficits Neuro Narrative: Moderate generalized weakness, voice is intelligible but mildly weak Psych thought process normal and cooperative Psych Narrative: Affect is slightly flat but appropriate for the situation Assessment & Plan Assessment/Plan (1) Gastric peptic ulcer: (2) Upper GI bleed: (3) Acute on chronic anemia: (4) Acute hypoxic respiratory failure: PLAN: Plan Acute hypoxic and hypercapnic respiratory failure -Resolved -Intubated during endoscopy due to decompensation despite patient being in no intubation -Extubated with no plans for reintubation on 06/13/2023 -Will continue pulmonary toilet, incentive spirometry, Acapella as able -Speech therapy to evaluate now that extubated -[facility] [place]pulmonary medicine following-appreciate input Upper GI bleed secondary to gastric ulcers -Initial EGD done on 06/08/2023 and showed grade 2 esophageal varices with oozing gastric ulcer that was injected and treated with heater probe as well as a single gastric polyp that was resected and retrieved and a single bleeding angiodysplastic lesion in the duodenum -Recurrent bleeding so emergent repeat EGD done on 06/10/2023 that demonstrated grade 1 esophageal varices with red blood in the entire stomach, oozing gastric ulcer with a visible vessel that was treated with heater probe and hemostatic spray and injected, a spurting gastric ulcer with visible vessel that was treated with heater probe, hemostatic spray and clips were placed. This too was injected. -Repeat EGD done 06/11/2023 with no obvious bleeding noted -Hemoglobin is currently stable at 9.3 -Continue Protonix drip until patient passes for diet with speech therapy -Start Carafate once patient passes for diet with speech therapy -GI is following-appreciate input Esophageal varices -Grade 2 noted on initial EGD -With upper GI bleed and esophageal varices will continue ceftriaxone for SBP prophylaxis Acute on chronic anemia due to blood loss with chronic anemia secondary to renal disease -Appears that her baseline hemoglobin runs between 7.5 and 9.5 -Stable and acuity has resolved -Hemoglobin this morning is 9.3 -With stability no reason for ongoing serial monitoring unless a change in status Hypocalcemia -When corrected for albumin calcium is normal -no intervention required Debility/generalized weakness -Related to her acute hospitalization -PT/OT consulted CAD/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/mild aortic stenosis -History of CABG x 4 -EF is 60% with stage II diastolic dysfunction, pulmonary pressures are 55 mmHg, mild aortic stenosis with a mean valve gradient of 16 mmHg, moderate mitral valve insufficiency noted on last echo -Continue to hold aspirin--> will hold until okay to restart per GI recommendations -Will restart antihypertensives once patient has been cleared for p.o. diet -Start scheduled labetalol 20 every 6 -Continue as needed hydralazine -Restart statin once p.o. diet has been initiated Moderate secondary pulmonary hypertension -Secondary to COPD-who group 2 -Pulmonary pressures on last echo were 55 mmHg -Bumex on hold but will plan to restart once she is back on a p.o. diet -Majority of fluid management for her is managed with dialysis End-stage renal disease-HD dependent -Patient is typically dialyzed M/W/F--> continue dialysis per nephrology -Continue home phosphate binder -Nephrology following -Appreciate input Recent COVID-19 infection -Seems to be stable from the standpoint Chronic hypoxic respiratory failure secondary to COPD -Patient on 2 L of oxygen at baseline -Patient has now been weaned to 2 L nasal cannula status post extubation -Continue bronchodilators -Patient is currently mechanically ventilated -Hold home guaifenesin -Hold home scheduled inhalers DM-2 -Blood glucose is well-controlled with current a.m. fasting being 132 -Does not appear like patient is taking any medications for glucose control at this time -Continue SSI every 6 -Accu-Cheks as ordered RLS -Restart Mirapex once p.o. diet has been initiated GERD -IV PPI as noted above Anxiety/depression -Restart amitriptyline once p.o. diet has been initiated DVT prophylaxis -SCDs -Chemoprophylaxis contraindicated due to bleeding CODE STATUS -DNR CCA okay for short-term intubation due to decompensation during procedure however once extubated plan is for no reintubation Disposition: -Patient extubated. Will need to go to [facility] facility at the time of discharge--> will discuss with case management Charges/Coding Visit Charges Inpatient E&M: 52935 Subs Hosp L2
[2023-06-14] MEDS: proCHLORPERazine 10 MG/2 ML Vial 5 MG IV ×2 (08:46→20:55)
--- NOTE | 2023-06-14 09:11 | PN.CC_ITS ---
Assessment & Plan Assessment/Plan (1) ABLA (acute blood loss anemia): PLAN: Plan RECOMMENDATIONS: 1. Wean supplemental oxygen to maintain saturations at or above 90%. 2. Dietary advancement following speech therapy evaluation 3. Bronchodilator therapy. 4. Transfuse blood products to maintain a hemoglobin at or above 7 g/dL. 5. Continue PPI therapy. 6. Dialysis support per nephrology recommendations. IMPRESSIONS: 1. Acute blood loss anemia Secondary to upper GI blood loss. The patient is status post endoscopy x 3. Plan to continue current supportive measures and transfuse blood products to maintain hemoglobin at or above 7 g/dL. Continue PPI therapy. 2. Acute on chronic hypoxemic respiratory failure The patient was intubated in the setting of a CODE BLUE during her second endoscopic procedure. CODE STATUS was previously documented to be DNR CCA without intubation. However, intubation was felt to be required to facilitate the successful completion of her endoscopic evaluation. Plan to continue assist-control mode of mechanical ventilation and wean FiO2 and PEEP to maintain saturations at or above 90%. Continue bronchodilator therapy. Although the patient has done okay on a breathing trial this morning, her mentation would preclude a successful attempt at extubation. Continue to provide supportive care and minimize sedating medications as tolerated. 3. End-stage renal disease on hemodialysis Nephrology following to assist with hemodialysis needs. 4. Encephalopathy Likely metabolic in etiology with elevated BUN. Recommend limiting sedative medications while on ventilator. Continue current supportive care. 5. History of COPD/obstructive sleep apnea/secondary pulmonary hypertension/coronary artery disease status post CABG/diabetes mellitus Complicates care, management, recovery and prognosis. Continue supportive measures as noted above. TIME: 33 minutes of critical care time, independent of procedures, was spent addressing the patient's acute blood loss anemia, acute on chronic hypoxemic respiratory failure, end-stage renal disease on hemodialysis, review of all data and collaboration with the care team. Subjective Subjective The patient was seen and examined at the bedside this morning. Events from the last 24 hours have been reviewed. The patient is currently afebrile, h emodynamically stable and maintaining appropriate oxygen saturations on 2 L/min via nasal cannula. The patient was extubated yesterday evening per family request, without complication. Hemoglobin is stable at 9.3 g/dL. BUN has improved to 64. Objective Data Objective Data The patient's most recent lab work, culture data and imaging studies have all been personally reviewed. Surface echocardiogram from May 2023 demonstrated stage II diastolic dysfunction with an ejection fraction of 60%. Pulmonary artery systolic pressure was estimated to be 55 mmHg. COVID PCR was positive on June 01. Stool for occult blood was positive on June 06. Sputum culture is demonstrating growth of yeastlike organism. Vital Signs: Vital Signs Temp Pulse Resp BP Pulse Ox O2 Del Method O2 Flow Rate 97.4 F L 82 19 H 170/61 H 96 Nasal Cannula 2 06/14/23 08:00 06/14/23 09:00 06/14/23 09:00 06/14/23 09:00 06/14/23 09:00 06/14/23 09:00 06/14/23 09:00 FiO2 35 06/13/23 16:00 Oxygen Flow Rate (L/min) 2 Oxygen Delivery Method Nasal Cannula Weight: 177 lb 11.081 oz Body Mass Index (BMI) 32.7 Intake & Output: Intake and Output for Last 24 Hours 06/12/23 06/13/23 06/14/23 23:59 23:59 23:59 Intake Total 2172.50 / 2257.58 894.09 / 894.09 96.83 / 96.83 Output Total 710 / 740 6410 / 6410 45 / 45 Balance 1462.50 / 1517.58 -5515.91 / -5515.91 51.83 / 51.83 Lab / Micro Data Attestation: I reviewed the patient's lab results. 06/14/23 03:53 06/14/23 03:53 Labs: Laboratory Results - last 24 hr 06/13/23 11:24: POC Glucose 92 06/13/23 17:11: POC Glucose 132 H 06/13/23 23:31: POC Glucose 125 H 06/14/23 03:53: WBC 18.0 H, RBC 3.12 L, Hgb 9.3 L, Hct 30.1 L, MCV 96.5, MCH 29.8, MCHC 30.9 L, RDW Std Deviation 61.1 H, RDW Coeff of Becca 18.2 H, Plt Count 265, MPV 10.0, Immature Gran % (Auto) 2.600 H, Neut % (Auto) 94.7 H, Lymph % (Auto) 0.9 L, [place] % (Auto) 1.6, Eos % (Auto) 0.0, Baso % (Auto) 0.2, Absolute Neuts (auto) 17.0 H, Absolute Lymphs (auto) 0.16 L, Nucleated RBC % 0.1, Sodium 135 L, Potassium 4.9, Chloride 102, Carbon Dioxide 20.0 L, Anion Gap 13, BUN 64 H, Creatinine 4.82 H, Estim Creat Clear Calc 9.77, Est GFR (MDRD) Af Amer 11 L, Est GFR (MDRD) Non-Af 9 L, BUN/Creatinine Ratio 13.3, Glucose 132 H, Calcium 6.6 L, Total Bilirubin 0.30, Direct Bilirubin 0.18, AST 23, ALT 9 L, Alkaline Phosphatase 87, Total Protein 6.3 L, Albumin 2.4 L, Globulin 3.9 06/14/23 05:13: POC Glucose 120 H Micro: Microbiology 06/10/23 23:43 Sputum, Tracheal Aspirate Gram Stain - Final 06/10/23 23:43 Sputum, Tracheal Aspirate Respiratory Culture - Final Brina albicans Yeast, not Brina albicans 06/07/23 17:10 Stool Stool Occult Blood (SANJUANA) - Final Occult Blood Positive ABG Data ABG results: ABG 06/10/23 06/10/23 17:42 20:41 Specimen Type ART ART Sample Site L Radial L Radial pH 7.19 L* 7.32 L Bicarbonate Actual 22.8 20.5 L Total CO2 25 22 Base Excess -5 L -6 L O2 Saturation 100 H 96 O2 % 80.0 50.0 ABG pCO2 59.4 H 39.4 ABG pO2 300 H 88 Abram Test Positive N/A Respiration Rate 14 20 O2 Delivery Device Adult Vent Adult Vent Vent Mode AC AC Tidal Volume 400.0 400.0 POC PEEP 5 5 Crit Call To/Read Back Yes Blood Gas Notified Whom KORAM Blood Gas Notified Time 17:43:45 Radiography Diagnostic Testing: Radiology Impression KUB X-Ray 06/11/23 16:45 IMPRESSION: Enteric tube projects subdiaphragmatic in the stomach. Electronically Signed: Alphonso Gray MD at 17:40 EDT , Physical Exam Const alert and no apparent distress General Appearance: cooperative HEENT normocephalic and head/scalp atraumatic HEENT Narrative: Bloody output from OG tube. Eyes EOMs intact bilaterally and conjunctivae normal Neck supple General: trachea midline Chest inspection of chest normal Resp normal respiratory effort Auscultation: wheezes and diminished lung sounds; Negative for rales or rhonchi Cardio regular rate, S1 normal heart sound and S2 normal heart sound Heart Sounds: murmur GI soft to palpation and non-tender Extremity no clubbing, cyanosis or edema Skin no rashes or lesions noted Neuro moves all extremities and no focal motor deficits Psych Mood & Affect: flat affect
[2023-06-14] MEDS: Ceftriaxone 1 GM/50 ML BAG IV (09:23)
--- NOTE | 2023-06-14 10:05 | PN.RENAL_ITS ---
Subjective Subjective Sitting up in bed. Alert and oriented. Extubated yesterday. Objective Data Objective Data Vital Signs: Vital Signs Temp Pulse Resp BP Pulse Ox O2 Del Method O2 Flow Rate 97.5 F L 88 21 H 152/60 H 97 Nasal Cannula 2 06/14/23 10:00 06/14/23 10:00 06/14/23 10:00 06/14/23 10:00 06/14/23 10:00 06/14/23 10:00 06/14/23 10:00 FiO2 35 06/13/23 16:00 Oxygen Flow Rate (L/min) 2 Oxygen Delivery Method Nasal Cannula Weight: 80.6 kg Body Mass Index (BMI) 32.7 Intake & Output: Intake and Output for Last 24 Hours 06/12/23 06/13/23 06/14/23 23:59 23:59 23:59 Intake Total 2172.50 / 2257.58 894.09 / 894.09 146.83 / 146.83 Output Total 710 / 740 6410 / 6410 45 / 45 Balance 1462.50 / 1517.58 -5515.91 / -5515.91 101.83 / 101.83 Lab / Micro Data 06/14/23 03:53 06/14/23 03:53 Labs: Laboratory Results - last 24 hr 06/13/23 11:24: POC Glucose 92 06/13/23 17:11: POC Glucose 132 H 06/13/23 23:31: POC Glucose 125 H 06/14/23 03:53: WBC 18.0 H, RBC 3.12 L, Hgb 9.3 L, Hct 30.1 L, MCV 96.5, MCH 2 9.8, MCHC 30.9 L, RDW Std Deviation 61.1 H, RDW Coeff of Becca 18.2 H, Plt Count 265, MPV 10.0, Immature Gran % (Auto) 2.600 H, Neut % (Auto) 94.7 H, Lymph % (Auto) 0.9 L, [place] % (Auto) 1.6, Eos % (Auto) 0.0, Baso % (Auto) 0.2, Absolute Neuts (auto) 17.0 H, Absolute Lymphs (auto) 0.16 L, Nucleated RBC % 0.1, Sodium 135 L, Potassium 4.9, Chloride 102, Carbon Dioxide 20.0 L, Anion Gap 13, BUN 64 H, Creatinine 4.82 H, Estim Creat Clear Calc 9.77, Est GFR (MDRD) Af Amer 11 L, Est GFR (MDRD) Non-Af 9 L, BUN/Creatinine Ratio 13.3, Glucose 132 H, Calcium 6.6 L, Total Bilirubin 0.30, Direct Bilirubin 0.18, AST 23, ALT 9 L, Alkaline Phosphatase 87, Total Protein 6.3 L, Albumin 2.4 L, Globulin 3.9 06/14/23 05:13: POC Glucose 120 H Micro: Microbiology 06/10/23 23:43 Sputum, Tracheal Aspirate Gram Stain - Final 06/10/23 23:43 Sputum, Tracheal Aspirate Respiratory Culture - Final Brina albicans Yeast, not Brina albicans 06/07/23 17:10 Stool Stool Occult Blood (SANJUANA) - Final Occult Blood Positive Physical Exam Narrative Alert and oriented, no apparent distress S1, S2, RRR Lung sounds clear anteriorly, diminished breath sounds posterior bases Abdomen soft No edema bilateral legs. Trace edema to hands Tunneled dialysis catheter dressing clean, dry and intact Assessment & Plan Assessment/Plan (1) ESRD on dialysis: PLAN: Plan Impression/Plan: The patient is a 77-year-old woman with past history of type 2 diabetes mellitus, hypertension, CAD, HFpEF, anemia, GERD, ESRD, and anxiety disorder. The patient is admitted to hospital on 06/07/2023 with acute blood loss anemia due to GI bleed. Nephrology is following for ESRD and dialysis management. - ESRD. The patient dialyzes on MWF schedule at [facility]. Patient underwent hemodialysis yesterday and tolerated around 2.5 L fluid removal. No acute indication for [employer] today. Next dialysis to be tomorrow with fluid removal as patient/blood pressure tolerates -Upper GI bleed secondary to gastric ulcers. Gastroenterology following. Hgb 9.3 -Acute hypoxic respiratory failure. Patient was intubated during endoscopic evaluation. Successful extubation 06/12 -Blood pressures acceptable. Recommend holding antihypertensives morning of dialysis
--- NOTE | 2023-06-14 11:05 | CASEMGMT ---
Social Work SW spoke w/pt and family in room in regard to discharge plan, spoke w/them about the possibility of pt going somewhere for rehab. Pt and family would prefer pt go home if possible. SW explained will provide to them a list of care home facilities in the event pt cannot go home. SW did come back a short time late and spoke w/daughters and son in law in the waiting room, pt is resting. SW provided to pt a list of care home facilities in network w/insurance, in pt's preferred geographic area, and complete w/quality and resource use data, via [email or web address]. SW explained to them if pt is too weak to return home, SW will be asking them and pt to choose 3 facilities where we can send referrals. Once we send referrals and we have an accepting facility, we ask them to start the precertification process w/insurance. Daughters state understanding. SW will continue to follow along w/CM, and will make referrals when appropriate to needed level of care for pt. RENAY Ramirez
[2023-06-14 12:09] LABS: Bedside Glucose 152 mg/dL (74-106)
[2023-06-14] MEDS: Insulin Lispro 100 UNIT/ML INSULN.PEN SC (12:32)
[2023-06-14] MEDS: SEVELAMER CARBONATE 800 MG TABLET PO ×2 (12:32→15:49)
[2023-06-14] MEDS: Pramipexole Di-HCl 0.5 MG Tablet PO (15:31)
[2023-06-14] MEDS: Sucralfate 1 GM Tablet PO ×2 (16:47→20:47)
[2023-06-14 17:06] LABS: Bedside Glucose 112 mg/dL (74-106)
[2023-06-14] MEDS: Ondansetron 4 MG/2 ML Vial IV (17:09)
[2023-06-14] MEDS: Carvedilol 12.5 MG Tablet PO (20:46)
[2023-06-14] MEDS: Atorvastatin Calcium 80 MG Tablet PO (20:46)
[2023-06-14] MEDS: Pantoprazole Sodium 40 MG Tablet PO (20:46)
[2023-06-14] MEDS: Amitriptyline 100 MG Tablet PO (20:47)
[2023-06-14] MEDS: Pramipexole Di-HCl 0.25 MG Tablet 0.75 MG PO (20:47)
[2023-06-14 21:02] LABS: Bedside Glucose 86 mg/dL (74-106)
--- NOTE | 2023-06-14 21:04 | NURSING ---
Pt denies nausea. Gave all evening pills with applesauce, pt tolerated well during administration. Minutes later, pt vomiting up all medications and applesauce. PRN IV compazine given. Pt states she feels better.
[2023-06-15] VITALS (32 sets, daily range): BP systolic 143–267; BP diastolic 58–80; PULSE 86–105; RESP 15–20; TEMP 36.4–36.9; O2SAT 90–98; BMI 31.6; BMI 30.6
[2023-06-15] MEDS: hydrALAZINE 20 MG/ML Vial 10 MG IV (00:39)
[2023-06-15] MEDS: 0.9% Saline Lock 10 ML Syringe IV ×5 (00:40→20:13)
[2023-06-15] MEDS: Ipratropium/Albuterol Sulfate 3 ML AMPUL.NEB INHALATION ×4 (01:54→19:12)
[2023-06-15 04:14] LABS: Absolute Lymphocyte Count 0.39 X10^3/uL (0.83-4.51); Absolute Neutrophil Count 11.7 X10^3/uL (2.0-7.7); Basophil# 0.05 X10^3/uL; Basophil% 0.4 % (0-1); Eosinophil# 0.17 X10^3/uL; Eosinophils% 1.3 % (0-5); Hematocrit 29.8 % (37-47); Hemoglobin 9.1 g/dL (12.0-15.0); Lymphocyte # 0.39 X10^3/ul (0.83-4.51); Lymphocyte % 2.9 % (19-41); Mean Corp Hgb Conc 30.5 g/dL (32-36); Mean Corpuscular Hgb 29.4 pg (27.0-32.0); Mean Corpuscular Volume 96.4 fL (81-99); Mean Platelet Vol. 9.7 fl (6.2-12.0); Monocyte# 0.86 X10^3/uL; Monocyte% 6.4 % (0-10); NRBC Flagged by Analyzer 0 % (0-5); Neutrophil # 11.71 X10^3/uL (2.7-7.7); POSITIVE DIFFERENTIAL YES; Platelet Count 319 K/mm3 (150-450); RBC Distribution Width CV 18.2 % (11.6-14.6); Red Blood Count 3.09 M/mm3 (4.2-5.4); White Blood Count 13.5 K/mm3 (4.4-11.0)
[2023-06-15 04:37] LABS: Anion Gap 12 (5-15); BUN 74 mg/dL (7-18); BUN/Creat Ratio 12.4 RATIO (10-20); Calcium,Total 5.9 mg/dL (8.5-10.1); Chloride 103 mmol/L (98-107); Creatinine, Serum 5.96 mg/dL (0.55-1.02); EST Glomerular Filtration Rate 7 mL/min (>60); Est Glom Filt Rate - Afr Amer 9 mL/min (>60); Glucose 101 mg/dL (74-106); Sodium Level 136 mmol/L (136-145)
--- NOTE | 2023-06-15 06:45 | PCM.PN.INT ---
Assessment & Plan Assessment/Plan (1) ABLA (acute blood loss anemia): PLAN: Plan RECOMMENDATIONS: 1. Wean supplemental oxygen to maintain saturations at or above 90%. 2. Bronchodilator therapy. 3. Transfuse blood products to maintain a hemoglobin at or above 7 g/dL. 4. Continue PPI therapy. 5. Dialysis support per nephrology recommendations. 6. Will sign off at this time from a pulmonary/critical care perspective. Please call with any additional questions. IMPRESSIONS: 1. Acute blood loss anemia Secondary to upper GI blood loss. The patient is status post endoscopy x 3. Plan to continue current supportive measures and transfuse blood products to maintain hemoglobin at or above 7 g/dL. Continue PPI therapy. 2. Acute on chronic hypoxemic respiratory failure The patient was intubated in the setting of a CODE BLUE during her second endoscopic procedure. CODE STATUS was previously documented to be DNR CCA without intubation. However, intubation was felt to be required to facilitate the successful completion of her endoscopic evaluation. Ultimately, with supportive care, the patient was able to be extubated on June 12. She is doing relatively well from a respiratory perspective on supplemental oxygen. Continue bronchodilator therapy. Encourage incentive spirometer use and mobilize patient as tolerated. 3. End-stage renal disease on hemodialysis Nephrology following to assist with hemodialysis needs. 4. History of COPD/obstructive sleep apnea/secondary pulmonary hypertension/coronary artery disease status post CABG/diabetes mellitus Complicates care, management, recovery and prognosis. Continue supportive measures as noted above. This note was generated with [employer] dictation software. It may contain incorrect words, spelling, and punctuation that were not noted in checking the note before signing. Subjective Subjective The patient was seen and examined at the bedside this morning. Events from the last 24 hours have been reviewed. The patient is currently afebrile, hemodynamically stable and maintaining appropriate oxygen saturations on 2 L/min nasal cannula. Nursing staff reported that the patient continues to have episodes of emesis with p.o. intake. She continues to tolerate dialysis without complication. Hemoglobin remains stable. Objective Data Objective Data The patient's most recent lab work, culture data and imaging studies have all been personally reviewed. Surface echocardiogram from May 2023 demonstrated stage II diastolic dysfunction with an ejection fraction of 60%. Pulmonary artery systolic pressure was estimated to be 55 mmHg. COVID PCR was positive on June 01. Stool for occult blood was positive on June 06. Sputum culture is demonstrating growth of yeastlike organism. Vital Signs: Vital Signs Temp Pulse Resp BP Pulse Ox O2 Del Method O2 Flow Rate 97.8 F 86 16 167/66 H 93 Nasal Cannula 2 06/15/23 03:00 06/15/23 03:00 06/15/23 03:00 06/15/23 03:00 06/15/23 03:00 06/15/23 03:55 06/15/23 03:55 FiO2 35 06/13/23 16:00 Oxygen Flow Rate (L/min) 2 Oxygen Delivery Method Nasal Cannula Weight: 172 lb 9.951 oz Body Mass Index (BMI) 31.6 Intake & Output: Intake and Output for Last 24 Hours 06/13/23 06/14/23 06/15/23 23:59 23:59 23:59 Intake Total 894.09 / 894.09 522.67 / 522.67 Output Total 6410 / 6410 415 / 515 100 / 100 Balance -5515.91 / -5515.91 107.67 / 7.67 -100 / -100 Lab / Micro Data Attestation: I reviewed the patient's lab results. 06/15/23 04:00 06/15/23 04:00 Labs: Laboratory Results - last 24 hr 06/10/23 14:27: Crossmatch See Detail 06/14/23 11:52: POC Glucose 152 H 06/14/23 16:46: POC Glucose 112 H 06/14/23 20:42: POC Glucose 86 06/15/23 04:00: WBC 13.5 H, RBC 3.09 L, Hgb 9.1 L, Hct 29.8 L, MCV 96.4, MCH 29.4, MCHC 30.5 L, RDW Std Deviation 62.0 H, RDW Coeff of Becca 18.2 H, Plt Count 319, MPV 9.7, Immature Gran % (Auto) 2.000 H, Neut % (Auto) 87.0 H, Lymph % (Auto) 2.9 L, [place] % (Auto) 6.4, Eos % (Auto) 1.3, Baso % (Auto) 0.4, Absolute Neuts (auto) 11.7 H, Absolute Lymphs (auto) 0.39 L, Nucleated RBC % 0, Sodium 136, Potassium 4.0, Chloride 103, Carbon Dioxide 21.0, Anion Gap 12, BUN 74 H, Creatinine 5.96 H, Estim Creat Clear Calc 7.90, Est GFR (MDRD) Af Amer 9 L, Est GFR (MDRD) Non-Af 7 L, BUN/Creatinine Ratio 12.4, Glucose 101, Calcium 5.9 L* Micro: Microbiology 06/10/23 23:43 Sputum, Tracheal Aspirate Gram Stain - Final 06/10/23 23:43 Sputum, Tracheal Aspirate Respiratory Culture - Final Brina albicans Yeast, not Brina albicans 06/07/23 17:10 Stool Stool Occult Blood (SANJUANA) - Final Occult Blood Positive ABG Data ABG results: ABG 06/10/23 06/10/23 17:42 20:41 Specimen Type ART ART Sample Site L Radial L Radial pH 7.19 L* 7.32 L Bicarbonate Actual 22.8 20.5 L Total CO2 25 22 Base Excess -5 L -6 L O2 Saturation 100 H 96 O2 % 80.0 50.0 ABG pCO2 59.4 H 39.4 ABG pO2 300 H 88 Abram Test Positive N/A Respiration Rate 14 20 O2 Delivery Device Adult Vent Adult Vent Vent Mode AC AC Tidal Volume 400.0 400.0 POC PEEP 5 5 Crit Call To/Read Back Yes Blood Gas Notified Whom KORAM Blood Gas Notified Time 17:43:45 Radiography Diagnostic Testing: Radiology Impression KUB X-Ray 06/11/23 16:45 IMPRESSION: Enteric tube projects subdiaphragmatic in the stomach. Electronically Signed: Alphonso Gray MD at 17:40 EDT , Physical Exam Const alert and no apparent distress General Appearance: cooperative HEENT normocephalic and head/scalp atraumatic HEENT Narrative: Bloody output from OG tube. Eyes EOMs intact bilaterally and conjunctivae normal Neck supple General: trachea midline Chest inspection of chest normal Resp normal respiratory effort Auscultation: wheezes and diminished lung sounds; Negative for rales or rhonchi Cardio regular rate, S1 normal heart sound and S2 normal heart sound Heart Sounds: murmur GI soft to palpation and non-tender Extremity no clubbing, cyanosis or edema Skin no rashes or lesions noted Neuro moves all extremities and no focal motor deficits Psych Mood & Affect: flat affect Charges/Coding Visit Charges Inpatient E&M: 16882 Subs Hosp L2
--- NOTE | 2023-06-15 07:25 | RAD_ITS ---
STUDY: X-RAY - ABDOMEN/PELVIS REASON FOR EXAM: Female, 77 years old. Vomiting TECHNIQUE: Single AP view of the abdomen / pelvis. COMPARISON: Comparison is made with prior study dated June 11, 2023. FINDINGS: Elevation of the right hemidiaphragm. Residual infiltration and/or atelectasis at both lung bases although there has been improvement. The oral gastric tube has been removed. Moderate amount of fecal material is seen throughout the colon. The visualized liver, spleen and kidneys are grossly normal in size and morphology. Surgical clips are seen in the left upper quadrant as well as in the epigastric region. Surgical clips are also seen in the right lower quadrant. Vascular calcification. There are diffuse degenerative changes of the visualized lumbar spine. RAD/Abdomen Single View (Portable) IMPRESSION: Moderate amount of fecal material is seen in the colon. The previously seen oral gastric tube has been removed. Electronically Signed: Peter Bahena MD at 8:22 EDT ,
[2023-06-15] MEDS: 0.9% Normal Saline 1,000 ML IV.SOLN. 1000 ML OPERA.SITE (07:56)
[2023-06-15] MEDS: PureFlow B 2K Dialysis Soln 1 BAG 6 BAG PF (07:57)
[2023-06-15 08:12] LABS: Bedside Glucose 100 mg/dL (74-106)
--- NOTE | 2023-06-15 08:28 | CT_ITS ---
EXAM: CT ABDOMEN AND PELVIS WITHOUT INTRAVENOUS CONTRAST CLINICAL INDICATION: vomiting TECHNIQUE: Helically acquired images were obtained of the abdomen and pelvis without intravenous contrast. This CT exam was performed using one or more of the following dose reduction techniques: automated exposure control, adjustment of the mA and/or kV according to patient size, and/or use of iterative reconstruction technique. COMPARISON: CT Abdomen Pelvis dated 05/07/2022 FINDINGS: LOWER THORAX: Residual bibasilar atelectasis and trace left pleural effusion. ABDOMEN: LIVER: Nodular contour of the liver and prominence of the left and caudate lobes suggestive of liver cirrhosis. PANCREAS: Normal. No focal cystic mass. SPLEEN: Spleen remains mildly prominent in size. ADRENALS: Normal. No nodules. KIDNEYS AND URETERS: Normal. No hydronephrosis. STOMACH AND BOWEL: Multiple metallic foreign bodies are noted within the stomach, duodenum and distal ileum. PELVIS: APPENDIX: No evidence of acute appendicitis. BLADDER: Kimble catheter in place within a decompressed urinary bladder. REPRODUCTIVE: Unremarkable as visualized. No mass. ABDOMEN and PELVIS: INTRAPERITONEAL SPACE: Normal. No ascites or other fluid collection. No free air. BONES/JOINTS: No suspicious lytic or blastic abnormality. SOFT TISSUES: Subcutaneous edema noted along the flanks bilaterally. 4 cm fat-containing periumbilical hernia again seen. VASCULATURE: Stable 2.8 cm ectasia of the infrarenal abdominal aorta. LYMPH NODES: Normal. No enlarged lymph nodes. CT/Abdomen/Pelvis without Cont IMPRESSION: 1. Findings again noted suggestive of liver cirrhosis and portal hypertension. 2. Multiple radiopaque foreign bodies within the stomach, duodenum and distal ileum. 3. Subcutaneous edema. Electronically Signed: Jose Turk MD at 17:05 EDT ,
[2023-06-15] MEDS: Epoetin Alfa epbx 10,000 UNIT/ML 10000 UNIT IV (09:18)
[2023-06-15] MEDS: Ondansetron 4 MG/2 ML Vial IV ×2 (11:13→20:14)
[2023-06-15] MEDS: Heparin 10,000 UNITS/10 ML Vial IV (11:18)
--- NOTE | 2023-06-15 11:38 | CASEMGMT ---
Social Work SW spoke w/pt's daughters, son in law and brother in room, pt out of the room for testing. SW spoke again w/them about pt going somewhere for rehab. Daughter Adilene states that pt cried about that when they spoke w/her. They state are taking things one day at a time in regard to making a discharge plan. SW did explain to family that both [facility] and [facility] have dialysis on site, if she were to go elsewhere we would need to make sure the other facilities can transport pt to and from dialysis if family cannot. SW did explain that it may be difficult for pt to get in and out of a family car however if she does need to go somewhere for rehab. SW did let them know that both [facility] and [facility] are in network w/pt's insurance. Daughters state understanding. They are not ready to make any decisions at this time however. SW will continue to follow. RENAY Ramirez
[2023-06-15] MEDS: Bisacodyl 10 MG Suppository RC (12:06)
[2023-06-15] MEDS: Bumetanide 2 MG Tablet PO (12:07)
[2023-06-15] MEDS: Pantoprazole Sodium 40 MG Tablet PO ×2 (12:07→21:09)
[2023-06-15] MEDS: amLODIPine 10 MG Tablet PO (12:07)
[2023-06-15] MEDS: Carvedilol 12.5 MG Tablet PO ×2 (12:08→20:51)
[2023-06-15 12:18] LABS: Bedside Glucose 101 mg/dL (74-106)
--- NOTE | 2023-06-15 12:21 | PCM.PN.REN ---
Subjective Subjective Sitting up in bed. Just finished dialysis. Denies any complaints. Objective Data Objective Data Vital Signs: Vital Signs Temp Pulse Resp BP Pulse Ox O2 Del Method O2 Flow Rate 97.9 F 102 H 15 174/71 H 97 Nasal Cannula 2 06/15/23 08:00 06/15/23 11:19 06/15/23 11:19 06/15/23 11:19 06/15/23 11:19 06/15/23 11:19 06/15/23 11:19 FiO2 35 06/13/23 16:00 Oxygen Flow Rate (L/min) 2 Oxygen Delivery Method Nasal Cannula Weight: 75.5 kg Body Mass Index (BMI) 30.6 Intake & Output: Intake and Output for Last 24 Hours 06/13/23 06/14/23 06/15/23 23:59 23:59 23:59 Intake Total 894.09 / 894.09 522.67 / 522.67 50 / 50 Output Total 6410 / 6410 415 / 515 2875 / 2875 Balance -5515.91 / -5515.91 107.67 / 7.67 -2825 / -2825 Lab / Micro Data 06/15/23 04:00 06/15/23 04:00 Labs: Laboratory Results - last 24 hr 06/10/23 14:27: Crossmatch See Detail 06/14/23 16:46: POC Glucose 112 H 06/14/23 20:42: POC Glucose 86 06/15/23 04:00: WBC 13.5 H, RBC 3.09 L, Hgb 9.1 L, Hct 29.8 L, MCV 96.4, MCH 29.4, MCHC 30.5 L, RDW Std Deviation 62.0 H, RDW Coeff of Becca 18.2 H, Plt Count 319, MPV 9.7, Immature Gran % (Auto) 2.000 H, Neut % (Auto) 87.0 H, Lymph % (Auto) 2.9 L, [place] % (Auto) 6.4, Eos % (Auto) 1.3, Baso % (Auto) 0.4, Absolute Neuts (auto) 11.7 H, Absolute Lymphs (auto) 0.39 L, Nucleated RBC % 0, Sodium 136, Potassium 4.0, Chloride 103, Carbon Dioxide 21.0, Anion Gap 12, BUN 74 H, Creatinine 5.96 H, Estim Creat Clear Calc 7.90, Est GFR (MDRD) Af Amer 9 L, Est GFR (MDRD) Non-Af 7 L, BUN/Creatinine Ratio 12.4, Glucose 101, Calcium 5.9 L* 06/15/23 07:54: POC Glucose 100 06/15/23 12:01: POC Glucose 101 Micro: Microbiology 06/10/23 23:43 Sputum, Tracheal Aspirate Gram Stain - Final 06/10/23 23:43 Sputum, Tracheal Aspirate Respiratory Culture - Final Brina albicans Yeast, not Brina albicans 06/07/23 17:10 Stool Stool Occult Blood (SANJUANA) - Final Occult Blood Positive Radiography Diagnostic Testing: Radiology Impression KUB X-Ray 06/15/23 07:25 IMPRESSION: Moderate amount of fecal material is seen in the colon. The previously seen oral gastric tube has been removed. Electronically Signed: Peter Baehna MD at 8:22 EDT , Physical Exam Narrative alert and oriented, no apparent distress S1, S2, RRR Lung sounds clear anteriorly Abdomen soft No edema bilateral legs. Trace edema to hands Tunneled dialysis catheter dressing clean, dry and intact Assessment & Plan Assessment/Plan (1) ESRD on dialysis: PLAN: Plan Impression/Plan: The patient is a 77-year-old woman with past history of type 2 diabetes mellitus, hypertension, CAD, HFpEF, anemia, GERD, ESRD, and anxiety disorder. The patient is admitted to hospital on 06/07/2023 with acute blood loss anemia due to GI bleed. Nephrology is following for ESRD and dialysis management. - ESRD. The patient dialyzes on MWF schedule at [facility]. Patient underwent hemodialysis today and tolerated around 2.7 L fluid removal. Likely next dialysis will be Sunday unless acute need arises -Upper GI bleed secondary to gastric ulcers. Gastroenterology following. Hgb 9.1. Received KALPANA with dialysis -Acute hypoxic respiratory failure. Patient was intubated during endoscopic evaluation. Successful extubation 06/12 -Blood pressures slightly elevated but should see improvement with ultrafiltration.
[2023-06-15] MEDS: Isosorbide Mononitrate 60 MG Tablet PO (13:01)
[2023-06-15] MEDS: Sucralfate 1 GM Tablet PO ×3 (13:02→20:51)
--- NOTE | 2023-06-15 14:11 | PN.HOSP_ITS ---
Reason for Visit Reason for Visit: Abnormal labs Subjective Subjective Patient with some intermittent nausea and vomiting still. It seems to be after pills. She has been able to keep liquids down. She has not had a bowel movement about 6 days so this could can be contributing. KUB was done and showed moderate amount of fecal load in the colon. She denies any shortness of breath or chest pain and states she is feeling okay otherwise. Objective Data Objective Data Vital Signs: Vital Signs Temp Pulse Resp BP Pulse Ox O2 Del Method O2 Flow Rate 97.9 F 99 18 174/71 H 94 Nasal Cannula 2 06/15/23 08:00 06/15/23 12:45 06/15/23 12:45 06/15/23 11:19 06/15/23 13:15 06/15/23 11:19 06/15/23 13:15 FiO2 35 06/13/23 16:00 Oxygen Flow Rate (L/min) 2 Oxygen Delivery Method Nasal Cannula Weight: 75.5 kg Body Mass Index (BMI) 30.6 Intake & Output: Intake and Output for Last 24 Hours 06/13/23 06/14/23 06/15/23 23:59 23:59 23:59 Intake Total 894.09 / 894.09 522.67 / 522.67 50 / 50 Output Total 6410 / 6410 415 / 515 2875 / 2875 Balance -5515.91 / -5515.91 107.67 / 7.67 -2825 / -2825 Lab / Micro Data 06/15/23 04:00 06/15/23 04:00 Labs: Laboratory Results - last 24 hr 06/10/23 14:27: Crossmatch See Detail 06/14/23 16:46: POC Glucose 112 H 06/14/23 20:42: POC Glucose 86 06/15/23 04:00: WBC 13.5 H, RBC 3.09 L, Hgb 9.1 L, Hct 29.8 L, MCV 96.4, MCH 29.4, MCHC 30.5 L, RDW Std Deviation 62.0 H, RDW Coeff of Becca 18.2 H, Plt Count 319, MPV 9.7, Immature Gran % (Auto) 2.000 H, Neut % (Auto) 87.0 H, Lymph % (Auto) 2.9 L, [place] % (Auto) 6.4, Eos % (Auto) 1.3, Baso % (Auto) 0.4, Absolute Neuts (auto) 11.7 H, Absolute Lymphs (auto) 0.39 L, Nucleated RBC % 0, Sodium 13 6, Potassium 4.0, Chloride 103, Carbon Dioxide 21.0, Anion Gap 12, BUN 74 H, Creatinine 5.96 H, Estim Creat Clear Calc 7.90, Est GFR (MDRD) Af Amer 9 L, Est GFR (MDRD) Non-Af 7 L, BUN/Creatinine Ratio 12.4, Glucose 101, Calcium 5.9 L* 06/15/23 07:54: POC Glucose 100 06/15/23 12:01: POC Glucose 101 Micro: Microbiology 06/10/23 23:43 Sputum, Tracheal Aspirate Gram Stain - Final 06/10/23 23:43 Sputum, Tracheal Aspirate Respiratory Culture - Final Brina albicans Yeast, not Brina albicans 06/07/23 17:10 Stool Stool Occult Blood (SANJUANA) - Final Occult Blood Positive Radiography Diagnostic Testing: Radiology Impression KUB X-Ray 06/15/23 07:25 IMPRESSION: Moderate amount of fecal material is seen in the colon. The previously seen oral gastric tube has been removed. Electronically Signed: Peter Bahena MD at 8:22 EDT , Physical Exam Const alert, oriented x3, no apparent distress and well nourished; Negative for average body habitus or healthy appearing Constitutional Narrative: Obese, older, white female, lying in bed, watching television, appears comfortable currently, nontoxic General Appearance: cooperative HEENT normocephalic, head/scalp atraumatic and moist oral mucous membranes HEENT Narrative: Mallampati 2, no thrush Eyes Negative for conjunctivae normal Resp normal respiratory effort, normal air movement, no retractions, no use of acces winter muscles and clear to auscultation bilaterally Resp Narrative: Diffusely diminished but clear Auscultation: Negative for crackles, rales, rhonchi or wheezes Cardio regular rate, regular rhythm, S1 normal heart sound, S2 normal heart sound, no rub, no gallops and no clicks; Negative for no murmurs Cardio Narrative: 4 out of 6 systolic murmur GI soft to palpation and non-tender GI Narrative: Mild distention Auscultation: hypoactive bowel sounds Extremity no clubbing, cyanosis or edema Extremity Narrative: Dorsalis pedis pulses are 2+ Neuro oriented x3, moves all extremities and no focal motor deficits Neuro Narrative: Moderate generalized weakness, voice seems to be stronger today Psych thought process normal and cooperative Psych Narrative: Affect is slightly flat but appropriate for the situation Appearance: appropriate Assessment & Plan Assessment/Plan (1) Gastric peptic ulcer: (2) Upper GI bleed: (3) Acute on chronic anemia: (4) Acute hypoxic respiratory failure: (5) Nausea and vomiting: (6) Constipation: PLAN: Plan Acute hypoxic and hypercapnic respiratory failure -Resolved--> remains on her home 2 L -Intubated during endoscopy due to decompensation despite patient being in no intubation -Extubated with no plans for reintubation on 06/13/2023 -Will continue pulmonary toilet, incentive spirometry, Acapella as able -Patient passed for diet with speech therapy -[facility]/pulmonary medicine following-appreciate input Nausea and vomiting/constipation -Suspect this may be related to her constipation -Bowel sounds are hypoactive -KUB shows a moderate amount of fecal material in the colon -Is high risk for ileus so we will check CT of the abdomen pelvis -Start bowel regimen -As needed antiemetics and patient does seem to be better if she is pretreated w ith antiemetics before she receives her pills Upper GI bleed secondary to gastric ulcers -Initial EGD done on 06/08/2023 and showed grade 2 esophageal varices with oozing gastric ulcer that was injected and treated with heater probe as well as a single gastric polyp that was resected and retrieved and a single bleeding angiodysplastic lesion in the duodenum -Recurrent bleeding so emergent repeat EGD done on 06/10/2023 that demonstrated grade 1 esophageal varices with red blood in the entire stomach, oozing gastric ulcer with a visible vessel that was treated with heater probe and hemostatic spray and injected, a spurting gastric ulcer with visible vessel that was treate d with heater probe, hemostatic spray and clips were placed. This too was injected. -Repeat EGD done 06/11/2023 with no obvious bleeding noted -Hemoglobin is currently stable at 9.1 -P.o. Protonix 40 mg p.o. twice daily for 8 weeks with a transition to 40 mg daily after this time. -Carafate started 4 times daily and she will continue this for 6 weeks -GI is following-appreciate input Esophageal varices -Grade 2 noted on initial EGD -With upper GI bleed and esophageal varices will continue ceftriaxone for SBP prophylaxis -Day 8 of 10 for ceftriaxone Acute on chronic anemia due to blood loss with chronic anemia secondary to renal disease -Appears that her baseline hemoglobin runs between 7.5 and 9.5 -Stable and acuity has resolved -Hemoglobin this morning is 9.3 Hypocalcemia -When corrected for albumin calcium is normal -no intervention required Debility/generalized weakness -Related to her acute hospitalization -PT/OT following -Recommending skilled facility at discharge which is not unexpected due to the significant acuity of her hospitalization -Anticipate patient will be here through the weekend as family has not decided if they want to send her to a skilled facility yet or not and would really like her to be able to go home and would like to see how she does with a few more days of therapy CAD/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/mild aortic stenosis -History of CABG x 4 -EF is 60% with stage II diastolic dysfunction, pulmonary pressures are 55 mmHg, mild aortic stenosis with a mean valve gradient of 16 mmHg, moderate mitral va lve insufficiency noted on last echo -Continue to hold aspirin--> will hold until okay to restart per GI recommendations -Slowly restarting home antihypertensives as blood pressure allows -Continue as needed hydralazine -Restart home statin Moderate secondary pulmonary hypertension -Secondary to COPD-who group 2 -Pulmonary pressures on last echo were 55 mmHg -Resume Bumex today -Majority of fluid management for her is managed with dialysis End-stage renal disease-HD dependent -Patient is typically dialyzed M/W/F--> continue dialysis per nephrology -Continue home phosphate binder -Nephrology following -Appreciate input Recent COVID-19 infection -Seems to be stable from the standpoint Chronic hypoxic respiratory failure secondary to COPD -Patient on 2 L of oxygen at baseline -Patient has now been weaned to 2 L nasal cannula status post extubation -Continue bronchodilators -Patient is currently mechanically ventilated -Hold home guaifenesin -Hold home scheduled inhalers DM-2 -Blood glucose is well-controlled with current a.m. fasting being 132 -Does not appear like patient is taking any medications for glucose control at this time -Accu-Cheks changed to 3 times daily -Cardiac/carb controlled diet -Accu-Cheks as ordered RLS -Restart home Mirapex GERD -Protonix p.o. twice daily -Carafate Anxiety/depression -Restart home amitriptyline DVT prophylaxis -SCDs -Chemoprophylaxis contraindicated due to bleeding CODE STATUS -DNR CCA okay for short-term intubation due to decompensation during procedure however once extubated plan is for no reintubation Disposition: -Patient will likely need placement at discharge however family would like to see how she does with therapy over the next couple days before they make a decision Charges/Coding Visit Charges Inpatient E&M: 34979 Subs Hosp L2
[2023-06-15] MEDS: proCHLORPERazine 10 MG/2 ML Vial 5 MG IV (15:28)
[2023-06-15] MEDS: Metoclopramide 10 MG/2 ML Vial 5 MG IV (16:17)
[2023-06-15] MEDS: Polyethylene Glycol 3350 17 GM PACKET PO ×2 (16:17→20:50)
[2023-06-15] MEDS: Pramipexole Di-HCl 0.5 MG Tablet PO (16:18)
[2023-06-15] MEDS: SEVELAMER CARBONATE 800 MG TABLET PO (16:19)
[2023-06-15 16:50] LABS: Bedside Glucose 101 mg/dL (74-106)
[2023-06-15] MEDS: Pramipexole Di-HCl 0.25 MG Tablet 0.75 MG PO (20:50)
[2023-06-15] MEDS: Amitriptyline 100 MG Tablet PO (21:09)
[2023-06-15] MEDS: Atorvastatin Calcium 80 MG Tablet PO (21:09)
[2023-06-15 21:30] LABS: Bedside Glucose 81 mg/dL (74-106)
--- NOTE | 2023-06-15 22:35 | CT_ITS ---
STUDY: CT BRAIN WITHOUT CONTRAST REASON FOR EXAM: Female, 77 years old. stroke RADIATION DOSAGE (If Supplied By Facility): CTDIvol = ( ) mGy, DLP = ( ) mGycm TECHNIQUE: Transaxial CT imaging of the brain was performed without administration of intravenous contrast material. Individualized dose optimization techniques were used for this CT. COMPARISON: 05/22/2023 FINDINGS: Normal soft tissue structures. Normal calvarium. There is mild cerebral atrophy with widening of the extra-axial spaces and ventricular dilatation. There are areas of decreased attenuation within the white matter tracts of the supratentorial brain, consistent with microvascular disease changes. Normal basal ganglia and thalami. Normal brainstem. Normal cerebellum. There is no intracranial hemorrhage. There are no findings of an acute ischemic infarction. Mucosal thickening in the right sphenoid sinus consistent with chronic sinusitis. CT/STROKE Brain/Head without Cont IMPRESSION: Chronic involutional changes of the brain. N.B. : The above Results were Read Back by Jorge Navarrete MD to Nasrin Salvador RN, and understanding confirmed on 06/15/2023 22:59:28 (ET). Electronically Signed: Jorge Navarrete MD at 23:00 EDT ,
--- NOTE | 2023-06-15 22:45 | CT_ITS ---
We are attempting to reach an attending provider to discuss findings. An addendum with communication details will be sent when the communication is complete. STUDY: CTA HEAD AND NECK WITH CONTRAST REASON FOR EXAM: Female, 77 years old. stroke alert RADIATION DOSAGE (If Supplied By Facility): CTDIvol = ( 34.66 ) mGy, DLP = ( 591.14 ) mGycm TECHNIQUE: CT angiography was performed with a multi-detector CT scanner. Data acquisition was obtained from the skull base through the vertex following intravenous administration of IV 100mL [id number]-[id number]. MIP images were reconstructed from the axial data set. Post-processing of the angiographic images was performed, with multiplanar reformation and 3D reconstruction. Individualized dose optimization techniques were used for this CT. COMPARISON: No relevant priors. FINDINGS: Normal bilateral petrous carotid arteries. Normal right cavernous carotid artery with a normal supraclinoid bifurcation. Normal left cavernous carotid artery with a normal supraclinoid bifurcation. Normal right A1 segments of the anterior cerebral artery. Normal left A1 segments of the anterior cerebral artery. Normal intact anterior communicating artery (ACOM). Normal bilateral A2 segments of the anterior cerebral arteries. Normal right M1 and M2 segments of the middle cerebral arteries, with a normal M1 bifurcation. Normal left M1 and M2 segments of the middle cerebral arteries, with a normal M1 bifurcation. There is a persistent origin of the right posterior cerebral artery with absence of the posterior communicating artery (PCOM). Normal left posterior communicating artery (PCOM). Normal bilateral vertebral arteries. Normal basilar artery with a normal basilar bifurcation. The visualized bilateral superior cerebellar (SCA) arteries are normal. Normal bilateral P1, P2 and visualized P3 segments of the posterior cerebral arteries. There is no demonstrated aneurysm of the [place]. There is no demonstrated abnormality of the visualized brain. AORTIC ARCH: Normal visualized aortic arch. Normal origins of the brachiocephalic, left common carotid, and left subclavian arteries. RIGHT CAROTID ARTERIES: Normal right common carotid artery (CCA). There is extensive atherosclerotic plaque formation with severe narrowing of the right carotid bulb with a hemodynamically significant stenosis. There is severe atherosclerotic plaque formation of the origin of the right internal carotid artery with a near complete occlusion. There is atherosclerotic tortuous elongation of the cervical portion of the right internal carotid artery. Normal origin of the right external carotid artery (ECA). LEFT CAROTID ARTERIES: Normal left common carotid artery (CCA). There is extensive atherosclerotic plaque formation with severe narrowing of the carotid bulb with a hemodynamically significant stenosis. There is extensive atherosclerotic plaque formation of the origin of the left internal carotid artery with an estimated stenosis of greater than 70%. Normal visualized cervical portion of the left internal carotid artery. Normal origin of the left external carotid artery (ECA). VERTEBRAL ARTERIES: Normal bilateral vertebral arteries. CT/STROKE CTA Head AND Neck W/Con IMPRESSION: Normal CTA Head with contrast. Critical (99%) right carotid stenosis. Severe (80%) left carotid stenosis. Patent vertebral arteries bilaterally. Electronically Signed: Jorge Navarrete MD at 23:28 EDT ,
--- NOTE | 2023-06-15 23:05 | PN.HOSP_ITS ---
Hospitalist Note Stroke alert was called overhead at approximately 10:30 PM after patient was noted to be dysarthric and confused by the ELECTROPLATING SALES REPRESENTATIVE. Stroke alert was immediately called with the patient undergoing stat CT of the head without contrast after her IV blew. Her CT scan of the head was unremarkable for acute pathologic changes but the CT scan of her neck revealed 99% right carotid stenosis and approximately 80% left carotid stenosis. Thankfully, her speech also markedly improved and she was able to read without difficulty and respond appropriately. I personally spoke with the teleneurologist from [facility] and explained patient is a DNR-CCA with recent GI bleed and multiple endoscopies and not only was not a candidate for TNK or even aspirin due to her recent hemorrhage. Her vital signs are stable and she appears to be returning to her baseline at this time. The neurologist recommended MRI of the brain without contrast in the morning which will be ordered according to protocol along with carotid Doppler and vascular surgery consult. In my opinion this patient is likely not a good candidate for any high-risk vascular procedures compounded by her inability to safely take antiplatelet medications so her family will need to be contacted to set up meeting to hopefully adjust her CODE STATUS. -------- [facility] Imaging Services [address] [place], [place] [address] [address] STROKE Brain/Head without Cont MR#: [id number] Acct: [id number] Name: JULISSA VEGA Rep #: [id number] : 1945 F 77 From: Jorge Navarrete MD PCP: Dr. Levi Laird MD Status: ADM IN Study: STROKE Brain/Head without Cont Date of Exam: 06/15/23 Exam# [id number] Ordering Dr: Rogelio Sanabria DO ADDENDUM by Dr. Jorge Navarrete MD on 06/15/23 at 2300 STUDY: CT BRAIN WITHOUT CONTRAST REASON FOR EXAM: Female, 77 years old. stroke RADIATION DOSAGE (If Supplied By Facility): CTDIvol = ( ) mGy, DLP = ( ) mGycm TECHNIQUE: Transaxial CT imaging of the brain was performed without administration of intravenous contrast material. Individualized dose optimization techniques were used for this CT. COMPARISON: 05/22/2023 FINDINGS: Normal soft tissue structures. Normal calvarium. There is mild cerebral atrophy with widening of the extra-axial spaces and ventricular dilatation. There are areas of decreased attenuation within the white matter tracts of the supratentorial brain, consistent with microvascular disease changes. Normal basal ganglia and thalami. Normal brainstem. Normal cerebellum. There is no intracranial hemorrhage. There are no findings of an acute ischemic infarction. Mucosal thickening in the right sphenoid sinus consistent with chronic sinusitis. 06/15/23 2300 Date cc: Dr. Rogelio Sanabria DO; Dr. Levi Laird MD ~* Signed ADDENDUM by Dr. Jorge Navarrete MD on 06/15/[address]/STROKE Brain/Head without Cont IMPRESSION: Chronic involutional changes of the brain. N.B. : The above Results were Read Back by Jorge Navarrete MD to Nasrin Salvador RN, and understanding confirmed on 06/15/2023 22:59:28 (ET). Electronically Signed: Jorge Navarrete MD at 23:00 EDT , 06/15/232306 Date cc: Dr. Rogelio Sanabria DO; Dr. Levi Laird MD ~* Signed STUDY: CT BRAIN WITHOUT CONTRAST REASON FOR EXAM: Female, 77 years old. stroke RADIATION DOSAGE (If Supplied By Facility): CTDIvol = ( ) mGy, DLP = ( ) mGycm TECHNIQUE: Transaxial CT imaging of the brain was performed without administration of intravenous contrast material. Individualized dose optimization techniques were used for this CT. COMPARISON: 05/22/2023 FINDINGS: Normal soft tissue structures. Normal calvarium. There is mild cerebral atrophy with widening of the extra-axial spaces and ventricular dilatation. There are areas of decreased attenuation within the white matter tracts of the supratentorial brain, consistent with microvascular disease changes. Normal basal ganglia and thalami. Normal brainstem. Normal cerebellum. There is no intracranial hemorrhage. There are no findings of an acute ischemic infarction. Mucosal thickening in the right sphenoid sinus consistent with chronic sinusitis. CT/STROKE Brain/Head without Cont IMPRESSION: Chronic involutional changes of the brain. N.B. : The above Results were Read Back by Jorge Navarrete MD to Nasrin Salvador RN, and understanding confirmed on 06/15/2023 22:59:28 (ET). Electronically Signed: Jorge Navarrete MD at 23:00 EDT , CC: Dr. Rogelio Sanabria DO; Dr. Levi Laird MD ~ Aircraft Restorer: Signed [facility] Imaging Services [address] [place] [id number] STROKE CTA Head AND Neck W/Con MR#: [id number] Acct: [id number] Name: JULISSA VEGA Rep #: [id number] : 1945 F 77 From: Jorge Navarrete MD PCP: Dr. Levi Laird MD Status: ADM IN Study: STROKE CTA Head AND Neck W/Con Date of Exam: 06/15/23 Exam# [id number] Ordering Dr: Rogelio Sanabria DO ADDENDUM by Dr. Jorge Navarrete MD on 06/15/23 at 2328 STUDY: CTA HEAD AND NECK WITH CONTRAST REASON FOR EXAM: Female, 77 years old. stroke alert RADIATION DOSAGE (If Supplied By Facility): CTDIvol = ( 34.66 ) mGy, DLP = ( 591.14 ) mGycm TECHNIQUE: CT angiography was performed with a multi-detector CT scanner. Data acquisition was obtained from the skull base through the vertex following intravenous administration of IV 100mL Isovue-370. MIP images were reconstructed from the axial data set. Post-processing of the angiographic images was performed, with multiplanar reformation and 3D reconstruction. Individualized dose optimization techniques were used for this CT. COMPARISON: No relevant priors. FINDINGS: Normal bilateral petrous carotid arteries. Normal right cavernous carotid artery with a normal supraclinoid bifurcation. Normal left cavernous carotid artery with a normal supraclinoid bifurcation. Normal right A1 segments of the anterior cerebral artery. Normal left A1 segments of the anterior cerebral artery. Normal intact anterior communicating artery (ACOM). Normal bilateral A2 segments of the anterior cerebral arteries. Normal right M1 and M2 segments of the middle cerebral arteries, with a normal M1 bifurcation. Normal left M1 and M2 segments of the middle cerebral arteries, with a normal M1 bifurcation. There is a persistent origin of the right posterior cerebral artery with absence of the posterior communicating artery (PCOM). Normal left posterior communicating artery (PCOM). Normal bilateral vertebral arteries. Normal basilar artery with a normal basilar bifurcation. The visualized bilateral superior cerebellar (SCA) arteries are normal. Normal bilateral P1, P2 and visualized P3 segments of the posterior cerebral arteries. There is no demonstrated aneurysm of the [place]. There is no demonstrated abnormality of the visualized brain. AORTIC ARCH: Normal visualized aortic arch. Normal origins of the brachiocephalic, left common carotid, and left subclavian arteries. RIGHT CAROTID ARTERIES: Normal right common carotid artery (CCA). There is extensive atherosclerotic plaque formation with severe narrowing of the right carotid bulb with a hemodynamically significant stenosis. There is severe atherosclerotic plaque formation of the origin of the right internal carotid artery with a near complete occlusion. There is atherosclerotic tortuous elongation of the cervical portion of the right internal carotid artery. Normal origin of the right external carotid artery (ECA). LEFT CAROTID ARTERIES: Normal left common carotid artery (CCA). There is extensive atherosclerotic plaque formation with severe narrowing of the carotid bulb with a hemodynamically significant stenosis. There is extensive atherosclerotic plaque formation of the origin of the left internal carotid artery with an estimated stenosis of greater than 70%. Normal visualized cervical portion of the left internal carotid artery. Normal origin of the left external carotid artery (ECA). VERTEBRAL ARTERIES: Normal bilateral vertebral arteries. 06/15/23 2328 Date cc: Dr. Rogelio Sanabria DO; Dr. Levi Laird MD ~* Signed ADDENDUM by Dr. Jorge Navarrete MD on 06/15/[address]/STROKE CTA Head AND Neck W/Con IMPRESSION: Normal CTA Head with contrast. Critical (99%) right carotid stenosis. Severe (80%) left carotid stenosis. Patent vertebral arteries bilaterally. N.B. : The above Results were Read Back by Jorge Navarrete MD to Rogelio Sanabria DO, and understanding confirmed on 06/15/2023 23:32:59 (ET). Electronically Signed: Jorge Navarrete MD at 23:28 EDT , 06/15/23 2339 Date cc: Dr. Rogelio Sanabria DO; Dr. Levi Laird MD ~* Signed We are attempting to reach an attending provider to discuss findings. An addendum with communication details will be sent when the communication is complete. STUDY: CTA HEAD AND NECK WITH CONTRAST REASON FOR EXAM: Female, 77 years old. stroke alert RADIATION DOSAGE (If Supplied By Facility): CTDIvol = ( 34.66 ) mGy, DLP = ( 591.14 ) mGycm TECHNIQUE: CT angiography was performed with a multi-detector CT scanner. Data acquisition was obtained from the skull base through the vertex following intravenous administration of IV 100mL Isovue-370. MIP images were reconstructed from the axial data set. Post-processing of the angiographic images was performed, with multiplanar reformation and 3D reconstruction. Individualized dose optimization techniques were used for this CT. COMPARISON: No relevant priors. FINDINGS: Normal bilateral petrous carotid arteries. Normal right cavernous carotid artery with a normal supraclinoid bifurcation. Normal left cavernous carotid artery with a normal supraclinoid bifurcation. Normal right A1 segments of the anterior cerebral artery. Normal left A1 segments of the anterior cerebral artery. Normal intact anterior communicating artery (ACOM). Normal bilateral A2 segments of the anterior cerebral arteries. Normal right M1 and M2 segments of the middle cerebral arteries, with a normal M1 bifurcation. Normal left M1 and M2 segments of the middle cerebral arteries, with a normal M1 bifurcation. There is a persistent origin of the right posterior cerebral artery with absence of the posterior communicating artery (PCOM). Normal left posterior communicating artery (PCOM). Normal bilateral vertebral arteries. Normal basilar artery with a normal basilar bifurcation. The visualized bilateral superior cerebellar (SCA) arteries are normal. Normal bilateral P1, P2 and visualized P3 segments of the posterior cerebral arteries. There is no demonstrated aneurysm of the [place]. There is no demonstrated abnormality of the visualized brain. AORTIC ARCH: Normal visualized aortic arch. Normal origins of the brachiocephalic, left common carotid, and left subclavian arteries. RIGHT CAROTID ARTERIES: Normal right common carotid artery (CCA). There is extensive atherosclerotic plaque formation with severe narrowing of the right carotid bulb with a hemodynamically significant stenosis. There is severe atherosclerotic plaque formation of the origin of the right internal carotid artery with a near complete occlusion. There is atherosclerotic tortuous elongation of the cervical portion of the right internal carotid artery. Normal origin of the right external carotid artery (ECA). LEFT CAROTID ARTERIES: Normal left common carotid artery (CCA). There is extensive atherosclerotic plaque formation with severe narrowing of the carotid bulb with a hemodynamically significant stenosis. There is extensive atherosclerotic plaque formation of the origin of the left internal carotid artery with an estimated stenosis of greater than 70%. Normal visualized cervical portion of the left internal carotid artery. Normal origin of the left external carotid artery (ECA). VERTEBRAL ARTERIES: Normal bilateral vertebral arteries. CT/STROKE CTA Head AND Neck W/Con IMPRESSION: Normal CTA Head with contrast. Critical (99%) right carotid stenosis. Severe (80%) left carotid stenosis. Patent vertebral arteries bilaterally. Electronically Signed: Jorge Navarrete MD at 23:28 EDT , CC: Dr. Rogelio Sanabria DO; Dr. Levi Laird MD ~ Aircraft Restorer: Signed
--- NOTE | 2023-06-15 23:24 | NURSING ---
Pt given HS meds around 2100 and had been heard speaking on the phone with several family members following that. No speech deficits noted at that time. At 2230, pt was noted by another RN to be restlessly moving around in the bed. Upon investigation, pt's speech was incoherent and she appeared confused. Pt answered orientation questions appropriately but was not making sense otherwise. NIHSS completed and pt was noted to have aphasia, dysarthria, mild facial paralysis, and upper extremity ataxia. Blood sugar 113. Stroke alert called.
[2023-06-15 23:28] LABS: Bedside Glucose 113 mg/dL (74-106)
--- NOTE | 2023-06-15 23:39 | ECHOL_ITS ---
Reason For Study: TIA/CVA Procedure This was a limited 2D transthoracic echocardiogram. Exam performed portable in ICU/CCU. Left Ventricle Normal LV size. The estimated ejection fraction is 60 %. Unable to assess diastolic dysfunction. No regional wall motion abnormalities noted. Right Ventricle Normal RV size. Normal systolic function. Atria The left atrium is mildly enlarged. Normal right atrium. No doppler evidence for ASD. Bubble contrast study negative for right to left interatrial shunt. Mitral Valve There is severe mitral annular calcification. There is no mitral valve stenosis. Moderately severe (3+) mitral valve insufficiency. Tricuspid Valve There is no tricuspid stenosis. Mild tricuspid valve insufficiency. Pulmonary artery systolic pressure is 45-50 mmHg. Aortic Valve Trisinus/trileaflet aortic valve. Mild aortic stenosis. Trivial aortic valve insufficiency. Pulmonic Valve There is no pulmonic valvular stenosis. No pulmonic valve insufficiency. Great Vessels Normal aortic root. Pericardium/Pleural No pericardial effusion. Medication Performed a rapid injection of agitated mix of 9 cc saline and 1cc air to assess for atrial septal defect. MMode/2D Measurements & Calculations LVIDd: 5.3 cm IVSd: 1.2 cm Ao root diam: 3.1 cm LVIDs: 3.9 cm LVPWd: 1.2 cm FS: 27.0 % LAV(MOD-bp): 88.2 ml LVAd ap4: 32.2 cm2 LVAd ap2: 38.2 cm2 LAV(MOD-bp) Indexed: 50.0 ml/m2 LVLd ap4: 9.2 cm LVLd ap2: 9.3 cm LAV(MOD-sp2): 104.0 ml EDV(MOD-sp4): 92.1 ml EDV(MOD-sp2): 131.0 ml LAV(MOD-sp4): 70.5 ml EDV(sp4-el): 95.9 ml EDV(sp2-el): 132.5 ml LVAs ap4: 20.4 cm2 LVAs ap2: 22.8 cm2 LVLs ap4: 7.7 cm LVLs ap2: 8.2 cm ESV(MOD-sp4): 45.7 ml ESV(MOD-sp2): 57.1 ml ESV(sp4-el): 45.8 ml ESV(sp2-el): 53.8 ml EF(MOD-sp4): 50.3 % EF(MOD-sp2): 56.4 % EF(sp4-el): 52.3 % SV(MOD-sp4): 46.3 ml SV(MOD-sp2): 74.0 ml SV(sp4-el): 50.1 ml LA A4 area: 22.8 cm2 LA dimension(2D): 4.5 cm RA A4 area: 20.0 cm2 Time Measurements MV dec time: 0.18 sec Doppler Measurements & Calculations MV E max enmanuel: 161.2 cm/sec Lat Peak E' Enmanuel: 9.5 cm/sec Med Peak E' Enmanuel: 11.2 cm/sec MV A max enmanuel: 128.0 cm/sec E/E' lat: 17.0 E/E' med: 14.4 MV E/A: 1.3 MV V2 max: 184.6 cm/sec Ao V2 max: 269.6 cm/sec MV max P.6 mmHg MV dec slope: 921.0 cm/sec2 Ao max P.1 mmHg MV V2 mean: 120.6 cm/sec Ao V2 mean: 184.8 cm/sec MV mean P.3 mmHg Ao mean P.9 mmHg MV V2 VTI: 36.0 cm Ao V2 VTI: 53.8 cm AV (velocity ratio): 0.47 LV V1 max: 123.1 cm/sec TR max enmanuel: 324.8 cm/sec LV V1 max P.1 mmHg TR max P.2 mmHg LV V1 mean P.7 mmHg LV V1 mean: 90.7 cm/sec LV V1 VTI: 25.5 cm ECHO/Echo, Limited Study Interpretation Summary The estimated ejection fraction is 60 %. Unable to assess diastolic dysfunction. The left atrium is mildly enlarged. Moderately severe (3+) mitral valve insufficiency. Mild aortic stenosis. Trivial aortic valve insufficiency. Ordering Physician: Rogelio Garzon Performed By: Nayeli Brown RDCS
[2023-06-16] VITALS (15 sets, daily range): BP systolic 154–189; BP diastolic 66–84; PULSE 78–98; RESP 16–23; TEMP 36.1–36.8; O2SAT 94–100; BMI 31.1
[2023-06-16 00:33] LABS: Thyroid Stim Hormone (TSH) 3.07 uIU/mL (0.358-3.74)
[2023-06-16] MEDS: Ipratropium/Albuterol Sulfate 3 ML AMPUL.NEB INHALATION ×4 (01:13→19:15)
[2023-06-16 03:07] LABS: Hemoglobin A1c 4.7 % (3.8-5.6)
[2023-06-16 03:58] LABS: Absolute Lymphocyte Count 0.39 X10^3/uL (0.83-4.51); Absolute Neutrophil Count 8.6 X10^3/uL (2.0-7.7); Basophil# 0.04 X10^3/uL; Basophil% 0.4 % (0-1); Eosinophil# 0.32 X10^3/uL; Eosinophils% 3.1 % (0-5); Hematocrit 27.8 % (37-47); Hemoglobin 8.4 g/dL (12.0-15.0); Lymphocyte # 0.39 X10^3/ul (0.83-4.51); Lymphocyte % 3.8 % (19-41); Mean Corp Hgb Conc 30.2 g/dL (32-36); Mean Corpuscular Hgb 29.3 pg (27.0-32.0); Mean Corpuscular Volume 96.9 fL (81-99); Mean Platelet Vol. 9.9 fl (6.2-12.0); Monocyte# 0.78 X10^3/uL; Monocyte% 7.6 % (0-10); NRBC Flagged by Analyzer 0 % (0-5); Neutrophil # 8.63 X10^3/uL (2.7-7.7); POSITIVE DIFFERENTIAL YES; Platelet Count 330 K/mm3 (150-450); RBC Distribution Width CV 18.3 % (11.6-14.6); RBC Distribution Width SD 61.5 fl (35.1-43.9); Red Blood Count 2.87 M/mm3 (4.2-5.4); White Blood Count 10.3 K/mm3 (4.4-11.0)
[2023-06-16 04:20] LABS: Anion Gap 10 (5-15); BUN 46 mg/dL (7-18); BUN/Creat Ratio 9.7 RATIO (10-20); Calcium,Total 6.5 mg/dL (8.5-10.1); Chloride 104 mmol/L (98-107); Cholesterol 97 mg/dL (200); Creatinine, Serum 4.73 mg/dL (0.55-1.02); EST Glomerular Filtration Rate 10 mL/min (>60); Est Glom Filt Rate - Afr Amer 12 mL/min (>60); Estimated Creatinine Clearance 9.63 ml/min; Glucose 99 mg/dL (74-106); High Density Lipoprotein 42 mg/dL; Potassium 3.8 mmol/L (3.5-5.1); Sodium Level 139 mmol/L (136-145); Triglycerides 142 mg/dL; Very Low Density Lipoprotein 28 mg/dL (5-40)
[2023-06-16] MEDS: Sucralfate 1 GM Tablet PO ×4 (06:45→21:42)
[2023-06-16] MEDS: Ondansetron 4 MG/2 ML Vial IV (07:42)
[2023-06-16] MEDS: 0.9% Saline Lock 10 ML Syringe IV ×2 (07:42→18:10)
[2023-06-16 08:06] LABS: Bedside Glucose 81 mg/dL (74-106)
[2023-06-16] MEDS: SEVELAMER CARBONATE 800 MG TABLET PO ×3 (08:52→18:11)
[2023-06-16] MEDS: Pantoprazole Sodium 40 MG Tablet PO ×2 (08:52→21:42)
[2023-06-16] MEDS: Pramipexole Di-HCl 0.5 MG Tablet PO ×2 (08:52→16:17)
[2023-06-16] MEDS: Polyethylene Glycol 3350 17 GM PACKET PO ×2 (08:52→21:42)
[2023-06-16] MEDS: Bumetanide 2 MG Tablet PO (08:53)
[2023-06-16] MEDS: Carvedilol 12.5 MG Tablet PO ×2 (09:35→21:44)
--- NOTE | 2023-06-16 10:38 | STROKE.CONS ---
Assessment and Plan: Stroke Assessment/Plan JULISSA VEGA is a 77 F with a history of CAD, HTN, HLD, HFPEF, mild aortic stenosis, moderate pulmonary hypertension, ESRD on HD, COPD, RLS, GERD, anxiety, depression recent upper GI Bleed from gastric ulcers who presents for evaluation of dysarthria and facial droop. Stroke code was called due to acute dysarthria and right facial drop. This has improved and currently per family her speech is back to baseline. Likely had a TIA Neurological examination shows intact examination. Neuroimaging shows Ct ehad is negative. CTA head and neck revealed near complete - 99% right carotid stenosis and more than 80% left carotid stenosis. Due to recent GI bleed was not started on ASA.Was not a candidate for thrombolysis due to GI bleed and improving symptoms 1. ASA when able from GI stand point 2. F/up Carotid duplex, MRI Brain 3. Please obtain fasting lipid profile, HbA1C 4. Vascular surgery opinion given bilateral stenosis 5. Optimization of stroke risk factors - HTN, HLD, ESRD. 6. Avoid fluctuations in blood pressure especially during HD given carotid stenosis 7. PT, OT, speech, swallow evaluation 8. Stroke education Thanks for the consultation. I spent 75 min in evaluation and management of this patient. Mara Augustin HPI Consult Data Date of Consult: 06/16/23 HPI Narrative HPI Narrative: JULISSA VEGA, is a 77 F with a history of CAD, HTN, HLD, HFPEF, mild aortic stenosis, moderate pulmonary hypertension, ESRD on HD, COPD, RLS, GERD, anxiety, depression recent upper GI Bleed from gastric ulcers who presents for evaluation of dysarthria and right facial droop. Stroke code was called due to acute dysarthria and facial drop. This has improved and currently per family her speech is back to baseline. No weakness or numbness of her extremities. Was not a candidate for thrombolysis due to GI bleed and improving symptoms. No LVO for thrombectomy. Her CT head was negative. CTA head and neck revealed near complete - 99% right carotid stenosis and 80% left carotid stenosis. Due to recent GI bleed was not started on ASA. [facility] Medical History (Updated 06/15/23 @ 23:[address] Rogelio Garzon, DO) (HFpEF) heart failure with preserved ejection fraction Anemia Anemia in chronic kidney disease Anxiety Arthritis CAD (coronary artery disease) Carotid artery stenosis Chronic hyponatremia Chronic respiratory failure with hypoxia COPD (chronic obstructive pulmonary disease) Diabetes mellitus type 2 in obese Dyslipidemia ESRD on dialysis Essential hypertension History of blood transfusion History of renal dialysis History of upper gastrointestinal bleeding Iron deficiency anemia Leg cramps Leukocytosis Morbid obesity with BMI of 40.0-44.9, adult Non-rheumatic mitral regurgitation Non-rheumatic tricuspid valve insufficiency On home oxygen therapy ELAINE (obstructive sleep apnea) Pleural effusion Pulmonary hypertension Restless leg syndrome Secondary pulmonary hypertension Shortness of breath on exertion Smoking greater than 40 pack years Valvular heart disease Wears dentures Wears glasses Home Medications amitriptyline 100 mg tablet 100 mg PO QHS mental health 04/09/13 [History Last Taken 05/13/22 21:00] atorvastatin 80 mg tablet 80 mg PO DAILY CHOLESTEROL 10/25/17 [History Last Taken 05/13/22 21:30] amlodipine 10 mg tablet 10 mg PO DAILY BP 06/01/18 [History Last Taken 05/14/22 08:30] doxazosin 8 mg tablet 8 mg PO QHS blood pressure 08/20/18 [History Last Taken 05/13/22 21:30] omeprazole 40 mg capsule,delayed release 40 mg PO DAILY gerd 08/20/18 [History Last Taken 05/13/22 21:30] hydralazine 100 mg tablet 100 mg PO TID diuretic 01/01/19 [History Last Taken 05/14/22 14:00] bumetanide 2 mg tablet 2 mg PO DAILY diuretic 03/14/19 [History Last Taken 05/14/22 08:30] nitroglycerin 0.4 mg sublingual tablet 0.4 mg sublingual Q5M PRN CHEST PAIN 03/14/19 [History Last Taken Unknown] albuterol sulfate 90 mcg/actuation aerosol inhaler (ProAir HFA) 2 puff inhalation Q6H PRN sob 09/30/20 [History Last Taken 05/13/22 08:30] ropinirole 0.5 mg tablet 1.5 mg PO .COMPLEX restless legs 07/07/21 [History Last Taken 05/13/22 21:30] acetaminophen 500 mg tablet (Acetaminophen Extra Strength) 1,000 mg PO DAILY PRN Pain 05/04/22 [History Last Taken 05/14/22 14:00] ascorbic acid (vitamin C) 500 mg tablet 500 mg PO DAILY SUPPLEMENT 05/04/22 [History Last Taken 05/14/22 08:30] sevelamer carbonate 800 mg tablet 800 mg PO TIDCM PHOSPHATE 05/04/22 [History Last Taken 05/14/22 14:00] isosorbide mononitrate 60 mg tablet,extended release 24 hr 60 mg PO DAILY heart 05/14/22 [History Last Taken 05/13/22 21:30] albuterol sulfate 1.25 mg/3 mL solution for nebulization 1.25 mg (3 mL) inhalation 4X/DAY Wheezing #360 mL 03/20/23 [Rx Last Taken Unknown] budesonide-formoterol HFA 160 mcg-4.5 mcg/actuation aerosol inhaler (Symbicort) 2 inh inhalation BID breathing #3 ea 05/01/23 [Rx Last Taken Unknown] carvedilol 12.5 mg tablet 12.5 mg PO BID bp #180 tabs 05/17/23 [Rx Last Taken Unknown] guaifenesin 1,200 mg tablet, extended release 12 hr 1,200 mg PO Q12H PRN congestion 05/17/23 [History Last Taken Unknown] prednisone 10 mg tablet 10 mg PO UD #30 tabs 06/02/23 [Rx Last Taken Unknown] Allergy/AdvReac Type Severity Reaction Status Date / Time Penicillins Allergy Hives Verified 06/07/23 16:12 adhesive tape AdvReac Other Verified 06/07/23 16:12 Family History Mother Heart disease Father No problems noted. Surgical History H/O four vessel coronary artery bypass graft (~04/16/13) Hx of colonoscopy Hx of esophagogastroduodenoscopy Social History household members: family Smoking Status: Former smoker quit date: 03/05/10 how long ago did patient quit smoking: Quit ~ 13 yrs prior, smoked 3 ppd since in her 20s until quit. alcohol intake: current alcohol intake frequency: holidays/special occasions only substance use type: does not use Vital Signs Vital Signs Vital Signs: 06/15/23 10:42 06/15/23 10:54 06/15/23 11:19 Temperature Temperature Source Pulse Rate 104 H 105 H 102 H Pulse Strength Respiratory Rate 18 15 15 Respiratory Effort Normal Non-Labored Respiratory Depth Normal Respiratory Pattern Normal Blood Pressure 174/74 H 174/64 H 174/71 H Blood Pressure Mean 107 100 105 Blood Pressure Source Monitor Monitor Monitor Blood Pressure Position Supine Supine Supine Blood Pressure Location Left Arm Left Arm Left Arm Pulse Ox 97 Oxygen Delivery Method Nasal Cannula Nasal Cannula Nasal Cannula Oxygen Flow Rate (L/min) 2 2 2 06/15/23 12:45 06/15/23 13:15 06/15/23 14:10 Temperature Temperature Source Pulse Rate 99 Pulse Strength Respiratory Rate 18 Respiratory Effort Normal Non-Labored Respiratory Depth Normal Respiratory Pattern Normal Normal Blood Pressure Blood Pressure Mean Blood Pressure Source Blood Pressure Position Blood Pressure Location Pulse Ox 94 Oxygen Delivery Method Nasal Cannula Oxygen Flow Rate (L/min) 2 2 06/15/23 14:27 06/15/23 19:12 06/15/23 19:22 Temperature 97.5 F L Temperature Source Temporal Pulse Rate 91 101 H Pulse Strength Weak (1+) Respiratory Rate 19 H 18 Respiratory Effort Respiratory Depth Respiratory Pattern Normal Blood Pressure 146/77 H Blood Pressure Mean 100 Blood Pressure Source Monitor Blood Pressure Position Semi-Fowlers Blood Pressure Location Left Arm Pulse Ox 94 Oxygen Delivery Method Nasal Cannula Oxygen Flow Rate (L/min) 2 06/15/23 19:23 06/15/23 20:45 06/15/23 22:33 Temperature 98.4 F Temperature Source Temporal Pulse Rate 97 90 Pulse Strength Respiratory Rate 19 H 18 Respiratory Effort Normal Non-Labored Respiratory Depth Normal Respiratory Pattern Normal Blood Pressure 150/68 H 147/67 H Blood Pressure Mean 95 93 Blood Pressure Source Monitor Blood Pressure Position Semi-Fowlers Blood Pressure Location Left Arm Pulse Ox 94 93 Oxygen Delivery Method Nasal Cannula Nasal Cannula Nasal Cannula Oxygen Flow Rate (L/min) 2 2 2 06/15/23 22:47 06/15/23 23:17 06/15/23 23:02 Temperature Temperature Source Pulse Rate 92 86 90 Pulse Strength Respiratory Rate 19 H 19 H 18 Respiratory Effort Respiratory Depth Respiratory Pattern Blood Pressure 155/63 H 163/79 H 166/58 H Blood Pressure Mean 93 107 94 Blood Pressure Source Blood Pressure Position Blood Pressure Location Pulse Ox 90 98 93 Oxygen Delivery Method Room Air Nasal Cannula Nasal Cannula Oxygen Flow Rate (L/min) 2 2 06/15/23 23:30 06/16/23 01:13 06/16/23 03:30 Temperature 98.4 F 97.2 F L Temperature Source Temporal Temporal Pulse Rate 88 85 98 Pulse Strength Respiratory Rate 18 16 19 H Respiratory Effort Respiratory Depth Respiratory Pattern Normal Blood Pressure 151/70 H 172/74 H Blood Pressure Mean 97 106 Blood Pressure Source Monitor Monitor Blood Pressure Position Semi-Fowlers Semi-Fowlers Blood Pressure Location Right Arm Right Arm Pulse Ox 94 94 Oxygen Delivery Method Nasal Cannula Nasal Cannula Oxygen Flow Rate (L/min) 2 2 06/16/23 03:54 06/16/23 06:45 06/16/23 06:36 Temperature 97.3 F L Temperature Source Temporal Pulse Rate 96 98 Pulse Strength Respiratory Rate 19 H 18 Respiratory Effort Normal Non-Labored Respiratory Depth Normal Respiratory Pattern Normal Blood Pressure 178/75 H Blood Pressure Mean 109 Blood Pressure Source Monitor Blood Pressure Position Semi-Fowlers Blood Pressure Location Right Arm Pulse Ox 95 Oxygen Delivery Method Nasal Cannula Nasal Cannula Oxygen Flow Rate (L/min) 2 2 06/16/23 06:36 06/16/23 07:54 06/16/23 09:06 Temperature Temperature Source Pulse Rate Pulse Strength Weak (1+) Respiratory Rate Respiratory Effort Respiratory Depth Respiratory Pattern Blood Pressure Blood Pressure Mean Blood Pressure Source Blood Pressure Position Blood Pressure Location Pulse Ox 98 Oxygen Delivery Method Nasal Cannula Oxygen Flow Rate (L/min) 2 2 06/16/23 08:45 06/16/23 10:00 Temperature Temperature Source Pulse Rate 92 Pulse Strength Respiratory Rate 20 H Respiratory Effort Respiratory Depth Respiratory Pattern Blood Pressure 177/75 H Blood Pressure Mean 109 Blood Pressure Source Monitor Blood Pressure Position Semi-Fowlers Blood Pressure Location Right Arm Pulse Ox 95 Oxygen Delivery Method Room Air Oxygen Flow Rate (L/min) 2 Weight Weight: 76.7 kg Body Mass Index (BMI) 31.1 NIHSS NIHSS Nursing Documentation NIHSS Nursing Documentation: NIHSS: Ischemic Stroke/TIA Start: 06/15/23 23:35 Text: For PCU Patients: NIH and Neuro Check every 4 Status: Active hours, PRN and with change in RN caregiver. Freq: [id number] Protocol: Activity Type Activity Date Activity User E-sign Co-sign Detail Recorded Client Recorded Date Recorded By Document 06/16/23 10:00 KES Desktop 06/16/23 10:08 KE 06/16/23 10:00 NIH Stroke Scale [NIHSS] A score of 0 is normal or asymptomatic . Total possible score is 42. Inpatient: RN or Physician to activate a stroke alert for onset of new stroke symptoms or with NIHSS increase >/= 3 points. Following change in neurological status, NIHSS will be performed per physician order or more frequently PRN. -1a. Level of Consciousness Alert; keenly responsive -1b. LOC Questions Answers one question correctly. -1c. LOC Commands Performs both tasks correctly . -2. Best Gaze Normal -3. Visual No visual loss -4. Facial Palsy Minor paralysis (flattened nasolabial fold , asymmetry on smiling) -5a. Left Arm No drift; arm holds 90 (or 45 ) degrees for full 10 seconds -5b. Right Arm No drift; arm holds 90 (or 45 ) degrees for full 10 seconds -6a. Left Leg No drift; leg holds 30-degree position for full 5 seconds -6b. Right Leg No drift; leg holds 30-degree position for full 5 seconds -7. Limb Ataxia Absent -8. Sensory Normal; no sensory loss -9. Best Language No aphasia; normal -10. Dysarthria Mild-to- moderate dysarthria; -11. Extinction and Inattention No abnormality -Total 3 Query Text:A score of 0 is normal or asymptomatic. Total possible score is 42 . ED: Notify Physician for NIHSS increase by > / = 3 points. Inpatient: RN or Physician to activate a stroke alert for NIHSS increase of > / = 3 points. NIHSS 1a. Level of Consciousness: Alert; keenly responsive 1b. LOC Questions: Answers BOTH questions correctly. 1c. LOC Commands: Performs both tasks correctly. 2. Best Gaze: Normal 3. Visual: No visual loss 4. Facial Palsy: Normal symmetrical movements 5a. Left Arm: No drift; arm holds 90 (or 45) degrees for full 10 seconds 5b. Right Arm: No drift; arm holds 90 (or 45) degrees for full 10 seconds 6a. Left Leg: No drift; leg holds 30-degree position for full 5 seconds 6b. Right Leg: No drift; leg holds 30-degree position for full 5 seconds 7. Limb Ataxia: Absent 8. Sensory: Normal; no sensory loss 9. Best Language: No aphasia; normal 10. Dysarthria: Normal 11. Extinction and Inattention: No abnormality Total: 0 Physical Exam Narrative Awake, alert Const Constitutional Narrative: Comfortable, Knows she is in hospital Eyes Eyes Narrative: EOM intact Resp normal respiratory effort Neuro oriented x3 and moves all extremities Neuro Narrative: Comfortable Speech is fluent, identifies simple objects, no dysarthria Cranial nerves intact Motor: Moves all extremities equally Sensation: intact No ataxia Lab / Micro Data 06/16/23 03:45 06/16/23 03:45 Labs: Laboratory Results - last 24 hr 06/15/23 04:00: Hemoglobin A1c 4.7, TSH 3.07 06/15/23 12:01: POC Glucose 101 06/15/23 16:22: POC Glucose 101 06/15/23 21:08: POC Glucose 81 06/15/23 22:32: POC Glucose 113 H 06/16/23 03:45: WBC 10.3, RBC 2.87 L, Hgb 8.4 L, Hct 27.8 L, MCV 96.9, MCH 29.3, MCHC 30.2 L, RDW Std Deviation 61.5 H, RDW Coeff of Becca 18.3 H, Plt Count 330, MPV 9.9, Immature Gran % (Auto) 1.100 H, Neut % (Auto) 84.0 H, Lymph % (Auto) 3.8 L, [place] % (Auto) 7.6, Eos % (Auto) 3.1, Baso % (Auto) 0.4, Absolute Neuts (auto) 8.6 H, Absolute Lymphs (auto) 0.39 L, Nucleated RBC % 0, Sodium 139, Potassium 3.8, Chloride 104, Carbon Dioxide 25.0, Anion Gap 10, BUN 46 H, Creatinine 4.73 H, Estim Creat Clear Calc 9.63, Est GFR (MDRD) Af Amer 12 L, Est GFR (MDRD) Non-Af 10 L, BUN/Creatinine Ratio 9.7 L, Glucose 99, Calcium 6.5 L*, Triglycerides 142, Cholesterol 97, LDL Cholesterol 27, VLDL Cholesterol 28, HDL Cholesterol 42 06/16/23 07:44: POC Glucose 81 Imaging Radiology Impression Abdomen/Pelvis CT 06/15/23 08:28 IMPRESSION: 1. Findings again noted suggestive of liver cirrhosis and portal hypertension. 2. Multiple radiopaque foreign bodies within the stomach, duodenum and distal ileum. 3. Subcutaneous edema. Electronically Signed: Jose Turk MD at 17:05 EDT , Brain CT 06/15/23 22:35 IMPRESSION: Chronic involutional changes of the brain. N.B. : The above Results were Read Back by Jorge Navarrete MD to Nasrin Salvador RN, and understanding confirmed on 06/15/2023 22:59:28 (ET). Electronically Signed: Jorge Navarrete MD at 23:00 EDT , ADDENDUM: 06/15/23 2307 IMPRESSION: Chronic involutional changes of the brain. N.B. : The above Results were Read Back by Jorge Navarrete MD to Nasrin Salvador RN, and understanding confirmed on 06/15/2023 22:59:28 (ET). Electronically Signed: Jorge Navarrete MD at 23:00 EDT , Head/Neck CTA 06/15/23 22:45 IMPRESSION: Normal CTA Head with contrast. Critical (99%) right carotid stenosis. Severe (80%) left carotid stenosis. Patent vertebral arteries bilaterally. Electronically Signed: Jorge Navarrete MD at 23:28 EDT , ADDENDUM: 06/15/23 2339 IMPRESSION: Normal CTA Head with contrast. Critical (99%) right carotid stenosis. Severe (80%) left carotid stenosis. Patent vertebral arteries bilaterally. N.B. : The above Results were Read Back by Jorge Navarrete MD to Rogelio Garzon DO, and understanding confirmed on 06/15/2023 23:32:59 (ET). Electronically Signed: Jorge Navarrete MD at 23:28 EDT , Active Medications Active Medications Active Medications: Current Medications Generic Name Dose Route Start Last Admin Trade Name Freq PRN Reason Stop Dose Admin Acetaminophen 650 mg 06/14/23 09:29 Acetaminophen 325 Mg Tablet PO Q4H PRN PRN Fever, pain Albuterol Sulfate 2.5 mg 06/07/23 20:29 06/13/23 22:35 Albuterol 2.5 Mg/3 Ml Vial.Neb. INHALATION 2.5 mg Q2H PRN PRN Administration Dyspnea, wheezing Albuterol/Ipratropium 3 ml 06/10/23 20:00 06/16/23 06:36 Ipratropium/Albuterol Sulfate 3 Ml Ampul.Neb INHALATION 3 ml Q6H.RT EPHRAIM Administration Amitriptyline HCl 100 mg 06/14/23 22:00 06/15/23 21:09 Amitriptyline 100 Mg Tablet PO 100 mg QHS EPHRAIM Administration Amlodipine Besylate 10 mg 06/14/23 10:00 06/16/23 09:35 Amlodipine 10 Mg Tablet PO Not Given DAILY EPHRAIM Protocol Atorvastatin Calcium 80 mg 06/14/23 22:00 06/15/23 21:09 Atorvastatin Calcium 80 Mg Tablet PO 80 mg QHS EPHRAIM Administration Bisacodyl 10 mg 06/15/23 10:00 06/15/23 12:06 Bisacodyl 10 Mg Suppository RC 10 mg DAILY EPHRAIM Administration Bumetanide 2 mg 06/14/23 10:00 06/16/23 08:53 Bumetanide 2 Mg Tablet PO 2 mg DAILY EPHRAIM Administration Protocol Carvedilol 12.5 mg 06/14/23 10:00 06/16/23 09:35 Carvedilol 12.5 Mg Tablet PO 12.5 mg BID EPHRAIM Administration Protocol Doxazosin Mesylate 8 mg 06/14/23 22:00 Doxazosin 4 Mg Tablet PO QHS EPHRAIM Hydralazine HCl 10 mg 06/07/23 20:29 06/15/23 00:39 Hydralazine 20 Mg/Ml Vial IV 10 mg Q4H PRN PRN Administration SBP > 160 Protocol Hydralazine HCl 100 mg 06/14/23 14:00 Hydralazine 50 Mg Tablet PO TID [facility] Protocol Sodium Chloride 250 mls @ 15 mls/hr 06/07/23 20:47 06/12/23 14:00 IV 0 mls/hr .[id number] PRN Infusion Additional IVPB Infusion Sodium Chloride 250 mls @ 15 mls/hr 06/07/23 20:47 IV .[id number] PRN Saline Flush Insulin Human Lispro 0 unit 06/14/23 16:00 06/16/23 07:49 Insulin Lispro 100 Unit/Ml Insuln.Pen SC Not Given ACHS [facility] Protocol Isosorbide Mononitrate 60 mg 06/08/23 10:00 06/16/23 09:35 Isosorbide Mononitrate 60 Mg Tablet PO Not Given DAILY [facility] Protocol Melatonin 3 mg 06/14/23 09:30 Melatonin 3 Mg Tablet PO QHS PRN PRN INSOMNIA Nitroglycerin 0.4 mg 06/07/23 20:29 Nitroglycerin (Inpatient Use) 0.4 Mg Tab.Subl SL Q5M PRN CARDIAC/CHEST PAIN Ondansetron HCl 4 mg 06/07/23 20:29 06/16/23 07:42 Ondansetron 4 Mg/2 Ml Vial IV 4 mg Q8H PRN PRN Administration NAUSEA/VOMITING Pantoprazole Sodium 40 mg 06/14/23 22:00 06/16/23 08:52 Pantoprazole Sodium 40 Mg Tablet PO 40 mg BID EPHRAIM Administration Polyethylene Glycol 17 gm 06/15/23 15:31 06/16/23 08:52 Polyethylene Glycol 3350 17 Gm Packet PO 17 gm BID EPHRAIM Administration Pramipexole Dihydrochloride 0.5 mg 06/14/23 16:00 06/16/23 08:52 Pramipexole Di-Hcl 0.5 Mg Tablet PO 0.5 mg BID@0800,1600 EPHRAIM Administration Pramipexole Dihydrochloride 0.75 mg 06/14/23 22:00 06/15/23 20:50 Pramipexole Di-Hcl 0.25 Mg Tablet PO 0.75 mg QHS EPHRAIM Administration Prochlorperazine Edisylate 5 mg 06/07/23 20:29 06/15/23 15:28 Prochlorperazine 10 Mg/2 Ml Vial IV 5 mg Q4H PRN PRN Administration Breakthrough Nausea/Vomiting Sevelamer Carbonate 800 mg 06/08/23 08:00 06/16/23 08:52 Sevelamer Carbonate 800 Mg Tablet PO 800 mg TIDCM EPHRAIM Administration Sodium Chloride 10 - 40 ml 06/07/23 20:47 06/16/23 07:42 0.9% Saline Lock 10 Ml Syringe IV 10 ml UD PRN Administration SALINE FLUSH Sucralfate 1 gm 06/14/23 16:00 06/16/23 06:45 Sucralfate 1 Gm Tablet PO 1 gm 1HR_ACHS EPHRAIM Administration
--- NOTE | 2023-06-16 10:48 | PCM.PN.HOSP ---
Reason for Visit Reason for Visit: Abnormal lab Subjective Subjective Stroke team was called about 1030 last evening due to dysarthria and confusion. Stat CT of the head was performed and showed only chronic delusional changes of the brain. Stat CT of the head neck was performed and showed no LVO but it did demonstrate significant bilateral carotid artery stenosis being critical on the right with 99% stenosis and severe with 80 percent left carotid artery stenosis and patent vertebral arteries. Patient did have a appointment last Sunday with vascular surgery which she missed. Unfortunately we are not able to put her on aspirin and Plavix at this time due to her massive GI bleed on presentation. Patient still has intermittent confusion today which seems more like delirium. Her speech is now clear and she is alert and oriented x 3 however occasionally will say some things that are completely [id number]. I did discuss extensively with family our options which are limited at this time due to her medical complexity. She is not a candidate for any medical or surgical therapy of her carotids at this time. MRI is pending and they would like to see what this shows. Her most recent NIH at 10 AM was 34 some mild to moderate dysarthria, mildly flattening of the nasolabial fold however for me she was able to answer all questions of orientation but missed some orientation questions at her last and age. We did discuss hospice on and they will consider and think about this at this time. Patient did have several good bowel movements yesterday and is no longer having any nausea or vomiting. Objective Data Objective Data Vital Signs: Vital Signs Temp Pulse Resp BP Pulse Ox O2 Del Method O2 Flow Rate 97.3 F L 92 20 H 177/75 H 95 Room Air 2 06/16/23 06:45 06/16/23 10:00 06/16/23 10:00 06/16/23 10:00 06/16/23 10:00 06/16/23 10:06/16/23 09:06 FiO2 35 06/13/23 16:00 Oxygen Flow Rate (L/min) 2 Oxygen Delivery Method Room Air Weight: 76.7 kg Body Mass Index (BMI) 31.1 Intake & Output: Intake and Output for Last 24 Hours 06/14/23 06/15/23 06/16/23 23:59 23:59 23:59 Intake Total 522.67 / 522.67 510 / 510 Output Total 415 / 515 2910 / 2910 Balance 107.67 / 7.67 -2400 / -2400 Lab / Micro Data 06/16/23 03:45 06/16/23 03:45 Labs: Laboratory Results - last 24 hr 06/15/23 04:00: Hemoglobin A1c 4.7, TSH 3.07 06/15/23 12:01: POC Glucose 101 06/15/23 16:22: POC Glucose 101 06/15/23 21:08: POC Glucose 81 06/15/23 22:32: POC Glucose 113 H 06/16/23 03:45: WBC 10.3, RBC 2.87 L, Hgb 8.4 L, Hct 27.8 L, MCV 96.9, MCH 29.3, MCHC 30.2 L, RDW Std Deviation 61.5 H, RDW Coeff of Becca 18.3 H, Plt Count 330, MPV 9.9, Immature Gran % (Auto) 1.100 H, Neut % (Auto) 84.0 H, Lymph % (Auto) 3.8 L, Sullivan % (Auto) 7.6, Eos % (Auto) 3.1, Baso % (Auto) 0.4, Absolute Neuts (auto) 8.6 H, Absolute Lymphs (auto) 0.39 L, Nucleated RBC % 0, Sodium 139, Potassium 3.8, Chloride 104, Carbon Dioxide 25.0, Anion Gap 10, BUN 46 H, Creatinine 4.73 H, Estim Creat Clear Calc 9.63, Est GFR (MDRD) Af Amer 12 L, Est GFR (MDRD) Non-Af 10 L, BUN/Creatinine Ratio 9.7 L, Glucose 99, Calcium 6.5 L*, Triglycerides 142, Cholesterol 97, LDL Cholesterol 27, VLDL Cholesterol 28, HDL Cholesterol 42 06/16/23 07:44: POC Glucose 81 Micro: Microbiology 06/10/23 23:43 Sputum, Tracheal Aspirate Gram Stain - Final 06/10/23 23:43 Sputum, Tracheal Aspirate Respiratory Culture - Final Brina albicans Yeast, not Brina albicans 06/07/23 17:10 Stool Stool Occult Blood (SANJUANA) - Final Occult Blood Positive Radiography Diagnostic Testing: Radiology Impression Abdomen/Pelvis CT 06/15/23 08:28 IMPRESSION: 1. Findings again noted suggestive of liver cirrhosis and portal hypertension. 2. Multiple radiopaque foreign bodies within the stomach, duodenum and distal ileum. 3. Subcutaneous edema. Electronically Signed: Jose Turk MD at 17:05 EDT , Brain CT 06/15/23 22:35 IMPRESSION: Chronic involutional changes of the brain. N.B. : The above Results were Read Back by Jorge Navarrete MD to Nasrin Salvador RN, and understanding confirmed on 06/15/2023 22:59:28 (ET). Electronically Signed: Jorge Navarrete MD at 23:00 EDT , ADDENDUM: 06/15/23 2307 IMPRESSION: Chronic involutional changes of the brain. N.B. : The above Results were Read Back by Jorge Navarrete MD to Nasrin Salvador RN, and understanding confirmed on 06/15/2023 22:59:28 (ET). Electronically Signed: Jorge Navarrete MD at 23:00 EDT , Head/Neck CTA 06/15/23 22:45 IMPRESSION: Normal CTA Head with contrast. Critical (99%) right carotid stenosis. Severe (80%) left carotid stenosis. Patent vertebral arteries bilaterally. Electronically Signed: Jorge Navarrete MD at 23:28 EDT , ADDENDUM: 06/15/23 2339 IMPRESSION: Normal CTA Head with contrast. Critical (99%) right carotid stenosis. Severe (80%) left carotid stenosis. Patent vertebral arteries bilaterally. N.B. : The above Results were Read Back by Jorge Navarrete MD to Rogelio Sanabria DO, and understanding confirmed on 06/15/2023 23:32:59 (ET). Electronically Signed: Jorge Navarrete MD at 23:28 EDT , Physical Exam Const alert, oriented x3, no apparent distress and well nourished; Negative for average body habitus or healthy appearing Constitutional Narrative: Obese, older, white female, sitting up in a chair at the bedside, watching television, appears comfortable currently, nontoxic, remains alert oriented x 3 however intermittently says some odd things HEENT normocephalic, head/scalp atraumatic and moist oral mucous membranes HEENT Narrative: Mallampati is 2, no thrush Eyes PERRL and EOMs intact bilaterally; Negative for conjunctivae normal Eyes Narrative: Conjunctiva are pale bilaterally, no scleral icterus Neck no lymphadenopathy and supple Neck Narrative: Trachea midline, no thyroid enlargement Resp normal respiratory effort, normal air movement, no retractions, no use of accessory muscles and clear to auscultation bilaterally Resp Narrative: Diffusely diminished but clear Auscultation: Negative for crackles, rales, rhonchi or wheezes Cardio regular rate, regular rhythm, S1 normal heart sound, S2 normal heart sound, no rub, no gallops and no clicks; Negative for no murmurs Cardio Narrative: 4 out of 6 systolic murmur GI normal to inspection, nondistended, normoactive bowel sounds, soft to palpation and non-tender GI Narrative: Mild distention Extremity normal capillary refill, no clubbing, cyanosis or edema and no calf tenderness Extremity Narrative: Dorsalis pedis pulses are 2+ General Extremity: no tenderness to palpation of joints or extremities Skin Skin Narrative: Tunneled dialysis catheter right upper chest that appears to be clean dry and dressing intact General Skin Exam: no breakdown Neuro oriented x3, CN's II-XII intact bilaterally, moves all extremities and no focal motor deficits Neuro Narrative: Moderate generalized weakness, intermittent confusion which almost seems like delirium or possibly expressive aphasia Motor Exam: general weakness Psych thought process normal and cooperative Psych Narrative: Affect is slightly flat but appropriate for the situation Appearance: appropriate Assessment & Plan Assessment/Plan (1) Gastric peptic ulcer: (2) Upper GI bleed: (3) Acute on chronic anemia: (4) Acute hypoxic respiratory failure: (5) Nausea and vomiting: (6) Constipation: (7) Aphasia: (8) Dysarthria: PLAN: Plan Dysarthria/acute confusion -Stroke team last evening -Continue stroke protocol -Will allow for some permissive hypertension but will dose Coreg -Continue home statin -Aspirin and Plavix are contraindicated at this time due to her recent massive GI bleeding -Will need some further input from GI if we proceed with aggressive care as to exactly how long he would like her off dual antiplatelet therapy -MRI is pending -CTA of the head and neck showed critical (99%) right carotid artery stenosis and severe (80%) left carotid artery stenosis with patent vertebrals bilaterally -Patient has known carotid artery stenosis and actually an appointment last Sunday with vascular surgery which she missed due to being in the hospital for her GI bleed -PT and OT already following Bilateral carotid artery stenosis -99% on the right and 80% on the left -Patient just had carotid Dopplers on 05/22/2023 so no need to repeat -These demonstrated severe (greater than 70%) stenosis in the right internal carotid artery and moderate 50 to 69% stenosis in the left carotid artery -Aspirin and Plavix need to be held due to recent GI bleeding -Discussed case with vascular surgery--> she is currently not a medical or surgical candidate for any intervention on her carotid arteries due to contraindication to anticoagulation with heparin and antiplatelet therapy at this time Acute hypoxic and hypercapnic respiratory failure -Resolved--> remains on her home 2 L -Intubated during endoscopy due to decompensation despite patient being in no intubation -Extubated with no plans for reintubation on 06/13/2023 -Will continue pulmonary toilet, incentive spirometry, Acapella as able Nausea and vomiting/constipation -Resolved -Patient had several large bowel movements yesterday -Likely related to constipation -Continue to monitor Upper GI bleed secondary to gastric ulcers -Initial EGD done on 06/08/2023 and showed grade 2 esophageal varices with oozing gastric ulcer that was injected and treated with heater probe as well as a single gastric polyp that was resected and retrieved and a single bleeding angiodysplastic lesion in the duodenum -Recurrent bleeding so emergent repeat EGD done on 06/10/2023 that demonstrated grade 1 esophageal varices with red blood in the entire stomach, oozing gastric ulcer with a visible vessel that was treated with heater probe and hemostatic spray and injected, a spurting gastric ulcer with visible vessel that was treated with heater probe, hemostatic spray and clips were placed. This too was injected. -Repeat EGD done 06/11/2023 with no obvious bleeding noted -Hemoglobin is currently stable at 9.1 -P.o. Protonix 40 mg p.o. twice daily for 8 weeks with a transition to 40 mg daily after this time. -Carafate started 4 times daily and she will continue this for 6 weeks -GI --> will need discussed with GI how long antiplatelet therapy will need to be held Esophageal varices -Grade 2 noted on initial EGD -With upper GI bleed and esophageal varices will continue ceftriaxone for SBP prophylaxis -Day 9 of 10 for ceftriaxone Acute on chronic anemia due to blood loss with chronic anemia secondary to renal disease -Appears that her baseline hemoglobin runs between 7.5 and 9.5 -Stable and acuity has resolved -Hemoglobin this morning is 9.3 Hypocalcemia -When corrected for albumin calcium is normal -no intervention required Debility/generalized weakness -Related to her acute hospitalization -PT/OT following -Recommending skilled facility at discharge which is not unexpected due to the significant acuity of her hospitalization -Anticipate patient will be here through the weekend as family has not decided if they want to send her to a skilled facility yet or not and would really like her to be able to go home and would like to see how she does with a few more days of therapy CAD/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/mild aortic stenosis -History of CABG x 4 -EF is 60% with stage II diastolic dysfunction, pulmonary pressures are 55 mmHg, mild aortic stenosis with a mean valve gradient of 16 mmHg, moderate mitral valve insufficiency noted on last echo -Continue to hold aspirin--> will hold until okay to restart per GI recommendations -Will continue Coreg but hold the rest of her antihypertensives and allow some for permissive hypertension with stroke concerns -Continue as needed hydralazine -Continue home statin Moderate secondary pulmonary hypertension -Secondary to COPD-who group 2 -Pulmonary pressures on last echo were 55 mmHg -Continue Bumex -Majority of fluid management for her is managed with dialysis End-stage renal disease-HD dependent -Patient is typically dialyzed M/W/F--> continue dialysis per nephrology -Continue home phosphate binder -Nephrology following -Appreciate input Recent COVID-19 infection -Seems to be stable from the standpoint Chronic hypoxic respiratory failure secondary to COPD -Patient on 2 L of oxygen at baseline -Patient has now been weaned to 2 L nasal cannula status post extubation -Continue bronchodilators -Patient is currently mechanically ventilated -Hold home guaifenesin -Hold home scheduled inhalers DM-2 -Blood glucose is well-controlled with current a.m. fasting being 99 -Does not appear like patient is taking any medications for glucose control at this time -Accu-Cheks changed to 3 times daily -Cardiac/carb controlled diet -Accu-Cheks as ordered RLS -Restart home Mirapex GERD -Protonix p.o. twice daily -Carafate Anxiety/depression -Continue home amitriptyline DVT prophylaxis -SCDs -Chemoprophylaxis contraindicated due to bleeding CODE STATUS -DNR CCA okay for short-term intubation due to decompensation during procedure however once extubated plan is for no reintubation Disposition: -Did have an extensive discussion with family given the patient had new stroke symptoms and not able to be on dual antiplatelet therapy. I am waiting to hear from Dr. Chan if he she can be on anything Plavix or aspirin alone. Will start if permissible. They are considering hospice after our discussion. Would like to see what MRI shows. They were aware she had significant carotid stenosis bilaterally as she did have an appointment to see Dr. Farias last Sunday but missed it due to being in the hospital. Charges/Coding Visit Charges Inpatient E&M: 36313 Subs Hosp L3
--- NOTE | 2023-06-16 11:17 | PCM.HOSP.N ---
Hospitalist Note Discussed events with Dr. Chan with regards to last night. He states she can start Plavix now but we need to hold off on aspirin. Plavix 75 mg started for today. But will need to be off any aspirin for the next 2 weeks.
[2023-06-16] MEDS: LORazepam 0.5 MG Tablet PO (11:33)
--- NOTE | 2023-06-16 12:00 | MRI_ITS ---
STUDY: MRI BRAIN WITHOUT CONTRAST REASON FOR EXAM: Female, 77 years old. Dysarthric speech with AMS and stroke alert. TECHNIQUE: Standardized multiplanar fat and water weighted pulse sequences were obtained. COMPARISON: Head CT dated June 15, 2023 FINDINGS: Normal size of the ventricles and extra-axial spaces for the patient''s age. There are multiple white matter hyperintensities, distributed throughout the deep white matter tracts of the cerebral hemispheres, consistent with moderate chronic white matter ischemic changes. There is no evidence for recent intracranial ischemia or other cause of cytotoxic edema on diffusion weighted imaging (DWI). Normal T2* images of the brain without demonstrated susceptibility artifact. There is no demonstrated hemosiderin stain. No hydrocephalus or midline shift is present. Normal bilateral basal ganglia. Normal thalami. There is no extra-axial fluid accumulation. Normal flow voids within the major intracranial circulation suggesting patency by spin echo criteria. Normal sella turcica, pituitary gland, infundibular stalk, optic chiasm and hypothalamus. Normal tectal plate and pineal gland. Normal midbrain, kyra and medulla. Normal cerebellum. Normal basal cisterns. Normal bilateral temporal bones. Normal bilateral internal auditory canals. No demonstrated orbital abnormality, within the constraints of a routine brain study. Normal visualized paranasal sinuses. Normal calvarium and skull base. Normal visualized soft tissue structures. Normal visualized upper cervical spine. MRI/Brain without Contrast IMPRESSION: Involutional changes of the brain, as described above. Electronically Signed: Kam Hugehs MD at 12:53 EDT ,
--- NOTE | 2023-06-16 12:42 | NURSING ---
While patient eating lunch, O2 Sats dropping to 86%, placed back on 2L NC
[2023-06-16] MEDS: Clopidogrel Bisulfate 75 MG Tablet PO (12:53)
[2023-06-16 13:12] LABS: Bedside Glucose 109 mg/dL (74-106)
--- NOTE | 2023-06-16 15:01 | CASEMGMT ---
Social Work SW spoke w/daughters, son in law, brother and sister in waiting room on PCU, offered support. SW will continue to follow, available for support as needed. RENAY Ramirez
[2023-06-16 16:39] LABS: Bedside Glucose 103 mg/dL (74-106)
[2023-06-16] MEDS: hydrALAZINE 20 MG/ML Vial 10 MG IV (18:09)
[2023-06-16] MEDS: hydrALAZINE 50 MG Tablet 100 MG PO (21:42)
[2023-06-16] MEDS: MELATONIN 3 MG TABLET PO (21:42)
[2023-06-16] MEDS: Pramipexole Di-HCl 0.25 MG Tablet 0.75 MG PO (21:43)
[2023-06-16] MEDS: Atorvastatin Calcium 80 MG Tablet PO (21:43)
[2023-06-16] MEDS: Amitriptyline 100 MG Tablet PO (21:47)
[2023-06-16 22:19] LABS: Bedside Glucose 97 mg/dL (74-106)
[2023-06-17] VITALS (10 sets, daily range): BP systolic 115–160; BP diastolic 54–69; PULSE 69–88; RESP 16–20; TEMP 36.2–36.9; O2SAT 86–99; BMI 31.3
[2023-06-17] MEDS: Ipratropium/Albuterol Sulfate 3 ML AMPUL.NEB INHALATION ×3 (01:05→19:00)
--- NOTE | 2023-06-17 01:17 | NURSING ---
NIH very limited due to patient not wanting to participate. Patient told RN No when asked to perform several of the tasks. States she is tired and wants to sleep- Patient was able to tell RN where she is the year. Also squeezed RN hands and moved all extremities. Patient would not open eyes to look at any of the pictures or words. Kept telling RN NO
[2023-06-17] MEDS: hydrALAZINE 50 MG Tablet 100 MG PO (05:12)
[2023-06-17] MEDS: Sucralfate 1 GM Tablet PO ×4 (05:12→20:58)
[2023-06-17 05:53] LABS: Bedside Glucose 75 mg/dL (74-106)
[2023-06-17 06:48] LABS: Absolute Lymphocyte Count 0.62 X10^3/uL (0.83-4.51); Basophil# 0.04 X10^3/uL; Basophil% 0.5 % (0-1); Eosinophil# 0.46 X10^3/uL; Eosinophils% 5.2 % (0-5); Hematocrit 27.6 % (37-47); Hemoglobin 8.1 g/dL (12.0-15.0); Lymphocyte # 0.62 X10^3/ul (0.83-4.51); Mean Corp Hgb Conc 29.3 g/dL (32-36); Mean Corpuscular Volume 98.9 fL (81-99); Mean Platelet Vol. 9.6 fl (6.2-12.0); Monocyte# 0.54 X10^3/uL; Monocyte% 6.1 % (0-10); NRBC Flagged by Analyzer 0 % (0-5); Neutrophil # 6.99 X10^3/uL (2.7-7.7); Neutrophil % 79.3 % (47-70); Platelet Count 333 K/mm3 (150-450); RBC Distribution Width SD 64.2 fl (35.1-43.9); Red Blood Count 2.79 M/mm3 (4.2-5.4); White Blood Count 8.8 K/mm3 (4.4-11.0)
[2023-06-17 07:38] LABS: Anion Gap 9 (5-15); BUN 53 mg/dL (7-18); BUN/Creat Ratio 8.8 RATIO (10-20); Calcium,Total 6.4 mg/dL (8.5-10.1); Chloride 104 mmol/L (98-107); Creatinine, Serum 6.02 mg/dL (0.55-1.02); EST Glomerular Filtration Rate 7 mL/min (>60); Est Glom Filt Rate - Afr Amer 9 mL/min (>60); Estimated Creatinine Clearance 7.65 ml/min; Glucose 71 mg/dL (74-106); Sodium Level 138 mmol/L (136-145)
[2023-06-17] MEDS: SEVELAMER CARBONATE 800 MG TABLET PO ×3 (09:03→18:12)
[2023-06-17] MEDS: Clopidogrel Bisulfate 75 MG Tablet PO (09:04)
[2023-06-17] MEDS: Carvedilol 12.5 MG Tablet PO ×2 (09:04→20:58)
[2023-06-17] MEDS: Polyethylene Glycol 3350 17 GM PACKET PO ×2 (09:04→21:01)
[2023-06-17] MEDS: Pantoprazole Sodium 40 MG Tablet PO ×2 (09:05→21:00)
[2023-06-17] MEDS: amLODIPine 10 MG Tablet PO (09:05)
[2023-06-17] MEDS: Isosorbide Mononitrate 60 MG Tablet PO (09:06)
[2023-06-17] MEDS: Bumetanide 2 MG Tablet PO (09:07)
[2023-06-17] MEDS: Pramipexole Di-HCl 0.5 MG Tablet PO ×2 (09:08→16:35)
--- NOTE | 2023-06-17 10:04 | PN.NEURO_ITS ---
Objective Data Objective Data Vital Signs: Vital Signs Temp Pulse Resp BP Pulse Ox O2 Del Method O2 Flow Rate 98 F 86 16 128/58 H 95 Nasal Cannula 2 06/17/23 09:30 06/17/23 09:30 06/17/23 09:30 06/17/23 09:30 06/17/23 09:30 06/17/23 09:30 06/17/23 09:30 FiO2 35 06/13/23 16:00 Oxygen Flow Rate (L/min) 2 Oxygen Delivery Method Nasal Cannula Weight: 77.2 kg Body Mass Index (BMI) 31.3 Intake & Output: Intake and Output for Last 24 Hours 06/15/23 06/16/23 06/17/23 23:59 23:59 23:59 Intake Total 510 / 510 470 / 470 Output Total 2910 / 2910 300 / 300 Balance -2400 / -2400 470 / 470 -300 / -300 Lab / Micro Data 06/17/23 05:23 06/17/23 05:23 Labs: Laboratory Results - last 24 hr 06/16/23 12:49: POC Glucose 109 H 06/16/23 16:14: POC Glucose 103 06/16/23 21:46: POC Glucose 97 06/17/23 05:03: POC Glucose 75 06/17/23 05:23: WBC 8.8, RBC 2.79 L, Hgb 8.1 L, Hct 27.6 L, MCV 98.9, MCH 29.0, MCHC 29.3 L, RDW Std Deviation 64.2 H, RDW Coeff of Becca 18.0 H, Plt Count 333, MPV 9.6, Immature Gran % (Auto) 1.900 H, Neut % (Auto) 79.3 H, Lymph % (Auto) 7.0 L, [place] % (Auto) 6.1, Eos % (Auto) 5.2 H, Baso % (Auto) 0.5, Absolute Neuts (auto) 7.0, Absolute Lymphs (auto) 0.62 L, Nucleated RBC % 0, Sodium 138, Potassium 4.0, Chloride 104, Carbon Dioxide 25.0, Anion Gap 9, BUN 53 H, Creati nine 6.02 H, Estim Creat Clear Calc 7.65, Est GFR (MDRD) Af Amer 9 L, Est GFR (MDRD) Non-Af 7 L, BUN/Creatinine Ratio 8.8 L, Glucose 71 L, Calcium 6.4 L* Micro: Microbiology 06/10/23 23:43 Sputum, Tracheal Aspirate Gram Stain - Final 06/10/23 23:43 Sputum, Tracheal Aspirate Respiratory Culture - Final Brina albicans Yeast, not Brina albicans 06/07/23 17:10 Stool Stool Occult Blood (SANJUANA) - Final Occult Blood Positive Radiography Diagnostic Testing: Radiology Impression Echocardiogram 06/15/23 23:39 Interpretation Summary The estimated ejection fraction is 60 %. Unable to assess diastolic dysfunction. The left atrium is mildly enlarged. Moderately severe (3+) mitral valve insufficiency. Mild aortic stenosis. Trivial aortic valve insufficiency. Ordering Physician: Rogelio Garzon Performed By: Nayeli Brown RDCS Brain MRI 06/16/23 12:00 IMPRESSION: Involutional changes of the brain, as described above. Electronically Signed: Kam Hughes MD at 12:53 EDT Reading Location ID and State: [address] [place] [address] , Service support , Physical Exam Narrative Awake, alert, cooperative, no acute distress Neuro Neuro Narrative: Responds appropriately Speech fluent, no aphasia Cranial nerves intact Moves all extremities well. Limited left UE movement due to shoulder issues Sensation intact Subject: Neurology Subjective JULISSA VEGA is a 77 year old F, who we are seeing in consultation today for advice on the management of recent slurred speech and facial droop. Her speech is back to baseline. Assessment and Plan: Stroke Assessment/Plan JULISSA VEGA is a 77 F with a history of CAD, HTN, HLD, HFPEF, mild aortic stenosis, moderate pulmonary hypertension, ESRD on HD, COPD, RLS, GERD, anxiety, depression recent upper GI Bleed from gastric ulcers who presents for evaluation of dysarthria and facial droop. Stroke code was called due to acute dysarthria and right facial drop. She is back to baseline. Mild delirium on an off. MRI Brain shows no acute stroke. She likely had a TIA from bilateral ICA stenosis. Neurological examination shows intact examination. Neuroimaging shows Ct head is negative. CTA head and neck revealed near complete - 99% right carotid stenosis and more than 80% left carotid stenosis. ECHO shows EF 60%. Due to recent GI b leemariza was not started on ASA.Was not a candidate for thrombolysis due to GI bleed and improving symptoms 1. Was started on Plavix as was okay with GI. 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 2. F/up Carotid duplex, HbA1C 3. F/up with Vascular surgery given bilateral stenosis after discussion with family 4. Optimization of stroke risk factors - HTN, HLD, ESRD. 5. Avoid fluctuations in blood pressure especially during HD given carotid stenosis 6. PT, OT evaluation 7. Stroke education Thanks for the consultation. I spent 35 min in evaluation and management of this patient. Mara Augustin
[2023-06-17] MEDS: RisperiDONE 0.25 MG Tablet PO (10:41)
[2023-06-17 10:45] LABS: Hemoglobin 8.2 g/dL (12.0-15.0)
[2023-06-17 11:49] LABS: Bedside Glucose 94 mg/dL (74-106)
--- NOTE | 2023-06-17 12:34 | PN.HOSP_ITS ---
Reason for Visit Reason for Visit: Abnormal lab Subjective Subjective Patient with some ongoing hallucinations and intermittent confusion. Had not been sleeping well after extubation but did finally sleep well last night. Still confused this morning. Hemoglobin down a bit with repeat stable at 8.2. Due for dialysis tomorrow. No complaints this morning. Family at bedside and no concerns other than her intermittent confusion. Objective Data Objective Data Vital Signs: Vital Signs Temp Pulse Resp BP Pulse Ox O2 Del Method O2 Flow Rate 98 F 86 16 128/58 H 95 Nasal Cannula 2 06/17/23 09:30 06/17/23 09:30 06/17/23 09:30 06/17/23 09:30 06/17/23 09:30 06/17/23 09:30 06/17/23 09:30 FiO2 35 06/13/23 16:00 Oxygen Flow Rate (L/min) 2 Oxygen Delivery Method Nasal Cannula Weight: 77.2 kg Body Mass Index (BMI) 31.3 Intake & Output: Intake and Output for Last 24 Hours 06/15/23 06/16/23 06/17/23 23:59 23:59 23:59 Intake Total 510 / 510 470 / 470 240 / 240 Output Total 2910 / 2910 300 / 300 Balance -2400 / -2400 470 / 470 -60 / -60 Lab / Micro Data 06/17/23 10:30 06/17/23 05:23 Labs: Laboratory Results - last 24 hr 06/16/23 12:49: POC Glucose 109 H 06/16/23 16:14: POC Glucose 103 06/16/23 21:46: POC Glucose 97 06/17/23 05:03: POC Glucose 75 06/17/23 05:23: WBC 8.8, RBC 2.79 L, Hgb 8.1 L, Hct 27.6 L, MCV 98.9, MCH 29.0, MCHC 29.3 L, RDW Std Deviation 64.2 H, RDW Coeff of Becca 18.0 H, Plt Count 333, MPV 9.6, Immature Gran % (Auto) 1.900 H, Neut % (Auto) 79.3 H, Lymph % (Auto) 7.0 L, [place] % (Auto) 6.1, Eos % (Auto) 5.2 H, Baso % (Auto) 0.5, Absolute Neuts (auto) 7.0, Absolute Lymphs (auto) 0.62 L, Nucleated RBC % 0, Sodium 138, Potassium 4.0, Chloride 104, Carbon Dioxide 25.0, Anion Gap 9, BUN 53 H, Creatinine 6.02 H, Estim Creat Clear Calc 7.65, Est GFR (MDRD) Af Amer 9 L, Est GFR (MDRD) Non-Af 7 L, BUN/Creatinine Ratio 8.8 L, Glucose 71 L, Calcium 6.4 L* 06/17/23 10:30: Hgb 8.2 L 06/17/23 11:32: POC Glucose 94 Micro: Microbiology 06/10/23 23:43 Sputum, Tracheal Aspirate Gram Stain - Final 06/10/23 23:43 Sputum, Tracheal Aspirate Respiratory Culture - Final Brina albicans Yeast, not Brina albicans 06/07/23 17:10 Stool Stool Occult Blood (SANJUANA) - Final Occult Blood Positive Radiography Diagnostic Testing: Radiology Impression Echocardiogram 06/15/23 23:39 Interpretation Summary The estimated ejection fraction is 60 %. Unable to assess diastolic dysfunction. The left atrium is mildly enlarged. Moderately severe (3+) mitral valve insufficiency. Mild aortic stenosis. Trivial aortic valve insufficiency. Ordering Physician: Rogelio Garzon Performed By: Nayeli Brown RDCS Brain MRI 06/16/23 12:00 IMPRESSION: Involutional changes of the brain, as described above. Electronically Signed: Kam Hughes MD at 12:53 EDT , Physical Exam Const alert, oriented x3 and no apparent distress; Negative for average body habitus or healthy appearing Constitutional Narrative: Obese, older, white female, sitting up in a chair at the bedside, watching last night's [employer] game, appears comfortable currently, nontoxic, remains alert oriented x 3 however is having intermittent hallucinations, daughter at bedside General Appearance: cooperative and well developed HEENT normocephalic, head/scalp atraumatic and moist oral mucous membranes HEENT Narrative: No thrush, Mallampati 2-3 Resp normal respiratory effort, normal air movement, no retractions and no use of accessory muscles Resp Narrative: Few crackles at bases bilaterally that diminished with deep breathing-suspect atelectasis Auscultation: crackles; Negative for rales, rhonchi or wheezes Cardio regular rate, regular rhythm, S1 normal heart sound, S2 normal heart sound, no rub, no gallops and no clicks; Negative for no murmurs Cardio Narrative: 4 out of 6 systolic murmur GI normal to inspection, nondistended, normoactive bowel sounds, soft to palpation and non-tender GI Narrative: Mild distention Neuro oriented x3, moves all extremities and no focal motor deficits Neuro Narrative: Moderate generalized weakness, intermittent confusion/hallucination which seems most consistent with delirium Psych cooperative Psych Narrative: A bit snarky but pleasant Assessment & Plan Assessment/Plan (1) Gastric peptic ulcer: (2) Upper GI bleed: (3) Acute on chronic anemia: (4) Acute hypoxic respiratory failure: (5) Nausea and vomiting: (6) Constipation: (7) Aphasia: (8) Dysarthria: PLAN: Plan Dysarthria/acute confusion -Stroke team 06/15/2023 -Neurology to evaluate -MRI negative -Continue home statin -Continue Plavix -CTA of the head and neck showed critical (99%) right carotid artery stenosis and severe (80%) left carotid artery stenosis with patent vertebrals bilaterally -Patient has known carotid artery stenosis and actually an appointment last Sunday with vascular surgery which she missed due to being in the hospital for her GI bleed -PT and OT already following Bilateral carotid artery stenosis -99% on the right and 80% on the left -Patient just had carotid Dopplers on 05/22/2023 so no need to repeat -These demonstrated severe (greater than 70%) stenosis in the right internal carotid artery and moderate 50 to 69% stenosis in the left carotid artery -Discussed with Dr. Chan and Plavix okay but no aspirin for the next 2 weeks -Discussed case with vascular surgery--> she is currently not a medical or surg ical candidate for any intervention on her carotid arteries due to contraindication to anticoagulation with heparin and DAPT -Dr. Farias to see the patient tomorrow Upper GI bleed secondary to gastric ulcers -Initial EGD done on 06/08/2023 and showed grade 2 esophageal varices with oozing gastric ulcer that was injected and treated with heater probe as well as a single gastric polyp that was resected and retrieved and a single bleeding angiodysplastic lesion in the duodenum -Recurrent bleeding so emergent repeat EGD done on 06/10/2023 that demonstrated grade 1 esophageal varices with red blood in the entire stomach, oozing gastric ulcer with a visible vessel that was treated with heater probe and hemostatic spray and injected, a spurting gastric ulcer with visible vessel that was treated with heater probe, hemostatic spray and clips were placed. This too was injected. -Repeat EGD done 06/11/2023 with no obvious bleeding noted -Hemoglobin down to 8.1 this morning with a repeat at 8.2 showing stability -P.o. Protonix 40 mg p.o. twice daily for 8 weeks with a transition to 40 mg daily after this time. -Carafate started 4 times daily and she will continue this for 6 weeks -GI --> no antiplatelet therapy with aspirin for [address] Chan was okay with starting Plavix and this was initiated on 06/16/2023 Esophageal varices -Grade 2 noted on initial EGD -With upper GI bleed and esophageal varices will continue ceftriaxone for SBP prophylaxis -Empiric ceftriaxone completed Acute on chronic anemia due to blood loss with chronic anemia secondary to renal disease -Appears that her baseline hemoglobin runs between 7.5 and 9.5 -Stable and acuity has resolved -Hemoglobin this morning is 8.1 with repeat at 8.2 Hypocalcemia -When corrected for albumin calcium is normal -no intervention required Debility/generalized weakness -Related to her acute hospitalization -PT/OT following -Recommending skilled facility at discharge which is not unexpected due to the significant acuity of her hospitalization -Anticipate patient will be here through the weekend as family has not decided if they want to send her to a skilled facility yet or not and would really like her to be able to go home and would like to see how she does with a few more days of therapy -Will need to decide tomorrow whether patient can go home or will need skilled facility at discharge CAD/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/mild aortic stenosis -History of CABG x 4 -EF is 60% with stage II diastolic dysfunction, pulmonary pressures are 55 mmHg, mild aortic stenosis with a mean valve gradient of 16 mmHg, moderate mitral valve insufficiency noted on last echo -Aspirin to be held for 2 weeks -Patient was started on Plavix 75 mg daily due to the above and ideally should probably be on dual antiplatelet therapy -Will continue Coreg but hold the rest of her antihypertensives and allow some for permissive hypertension with stroke concerns -Continue as needed hydralazine -Continue home statin Moderate secondary pulmonary hypertension -Secondary to COPD-who group 2 -Pulmonary pressures on last echo were 55 mmHg -Continue Bumex -Majority of fluid management for her is managed with dialysis End-stage renal disease-HD dependent -Patient is typically dialyzed M/W/F--> continue dialysis per nephrology -Continue home phosphate binder -Nephrology following -Appreciate input Chronic hypoxic respiratory failure secondary to COPD -Patient on 2 L of oxygen at baseline -Patient has now been weaned to 2 L nasal cannula status post extubation -Continue bronchodilators -Patient is currently mechanically ventilated -Hold home guaifenesin -Hold home scheduled inhalers DM-2 -Blood glucose is well-controlled with current a.m. fasting being 99 -Does not appear like patient is taking any medications for glucose control at this time -Accu-Cheks changed to 3 times daily -Cardiac/carb controlled diet -Accu-Cheks as ordered RLS -Continue home Mirapex GERD -Protonix p.o. twice daily -Carafate Anxiety/depression -Continue home amitriptyline DVT prophylaxis -SCDs -Chemoprophylaxis contraindicated due to bleeding CODE STATUS -DNR CCA no intubation Disposition: -Will need to decide tomorrow whether she is going to be able to go home or will need ongoing rehab at a group home facility. Family would really prefer her to be able to go home with skilled therapy. We did add risperidone to help with her hallucination as she is showing signs of ICU delirium. Charges/Coding Visit Charges Inpatient E&M: 77099 Subs Hosp L2
[2023-06-17 16:49] LABS: Bedside Glucose 119 mg/dL (74-106)
[2023-06-17] MEDS: Atorvastatin Calcium 80 MG Tablet PO (20:59)
[2023-06-17] MEDS: Amitriptyline 100 MG Tablet PO (20:59)
[2023-06-17] MEDS: Pramipexole Di-HCl 0.25 MG Tablet 0.75 MG PO (21:00)
[2023-06-17] MEDS: RisperiDONE 0.5 MG Tablet PO (21:01)
[2023-06-17] MEDS: MELATONIN 3 MG TABLET PO (21:07)
[2023-06-18] VITALS (17 sets, daily range): BP systolic 140–224; BP diastolic 55–78; PULSE 67–84; RESP 12–20; TEMP 36.6–37; O2SAT 82–98; BMI 31.2; BMI 30.3
[2023-06-18 00:45] LABS: Bedside Glucose 142 mg/dL (74-106)
[2023-06-18] MEDS: Ipratropium/Albuterol Sulfate 3 ML AMPUL.NEB INHALATION ×3 (00:55→12:48)
[2023-06-18 05:53] LABS: Absolute Lymphocyte Count 0.49 X10^3/uL (0.83-4.51); Absolute Neutrophil Count 7.8 X10^3/uL (2.0-7.7); Basophil# 0.05 X10^3/uL; Basophil% 0.5 % (0-1); Eosinophil# 0.56 X10^3/uL; Eosinophils% 5.9 % (0-5); Hematocrit 26.9 % (37-47); Hemoglobin 7.9 g/dL (12.0-15.0); Lymphocyte # 0.49 X10^3/ul (0.83-4.51); Lymphocyte % 5.2 % (19-41); Mean Corp Hgb Conc 29.4 g/dL (32-36); Mean Corpuscular Hgb 28.8 pg (27.0-32.0); Mean Corpuscular Volume 98.2 fL (81-99); Mean Platelet Vol. 9.6 fl (6.2-12.0); Monocyte# 0.41 X10^3/uL; Monocyte% 4.4 % (0-10); NRBC Flagged by Analyzer 0 % (0-5); Neutrophil # 7.79 X10^3/uL (2.7-7.7); Neutrophil % 82.7 % (47-70); POSITIVE DIFFERENTIAL YES; Platelet Count 374 K/mm3 (150-450); RBC Distribution Width CV 18.2 % (11.6-14.6); RBC Distribution Width SD 64.6 fl (35.1-43.9); Red Blood Count 2.74 M/mm3 (4.2-5.4); White Blood Count 9.4 K/mm3 (4.4-11.0)
[2023-06-18] MEDS: Sucralfate 1 GM Tablet PO ×2 (06:07→13:44)
[2023-06-18 06:26] LABS: Bedside Glucose 81 mg/dL (74-106)
[2023-06-18 06:40] LABS: Anion Gap 11 (5-15); BUN 61 mg/dL (7-18); BUN/Creat Ratio 8.4 RATIO (10-20); Calcium,Total 6.1 mg/dL (8.5-10.1); Chloride 103 mmol/L (98-107); Creatinine, Serum 7.29 mg/dL (0.55-1.02); EST Glomerular Filtration Rate 6 mL/min (>60); Est Glom Filt Rate - Afr Amer 7 mL/min (>60); Estimated Creatinine Clearance 6.31 ml/min; Glucose 69 mg/dL (74-106); Potassium 4.2 mmol/L (3.5-5.1); Sodium Level 137 mmol/L (136-145)
[2023-06-18] MEDS: 0.9% Normal Saline 1,000 ML IV.SOLN. 1000 ML OPERA.SITE (08:53)
[2023-06-18] MEDS: PureFlow B 3K Dialysis Soln 1 BAG 6 BAG PF (08:53)
[2023-06-18] MEDS: 0.9% Saline Lock 10 ML Syringe IV (08:54)
--- NOTE | 2023-06-18 09:11 | PCM.PN.HOSP ---
Reason for Visit Reason for Visit: Diagnoses Acute posthemorrhagic anemia (06/07/23) Anemia, unspecified (06/07/23) Transient cerebral ischemic attack, unspecified (06/07/23) Chronic obstructive pulmonary disease with (acute) exacerbation (06/07/23) Acute respiratory failure with hypoxia (06/07/23) Gastric ulcer, unspecified as acute or chronic, without hemorrhage or perforation (06/07/23) Constipation, unspecified (06/07/23) Gastrointestinal hemorrhage, unspecified (06/07/23) End stage renal disease (06/07/23) Nausea with vomiting, unspecified (06/07/23) Other fecal abnormalities (06/07/23) Altered mental status, unspecified (06/07/23) Aphasia (06/07/23) Dysarthria and anarthria (06/07/23) Dependence on renal dialysis (06/07/23) Subjective Subjective Feels well. Denies complaints. Objective Data Objective Data Vital Signs: Vital Signs Temp Pulse Resp BP Pulse Ox O2 Del Method O2 Flow Rate 36.6 C 82 14 150/62 H 93 Room Air 2 06/18/23 06:35 06/18/23 08:58 06/18/23 08:58 06/18/23 08:58 06/18/23 08:35 06/18/23 08:58 06/18/23 07:45 FiO2 35 06/13/23 16:00 Oxygen Flow Rate (L/min) 2 Oxygen Delivery Method Room Air Weight: 77.1 kg Body Mass Index (BMI) 31.2 Intake & Output: Intake and Output for Last 24 Hours 06/16/23 06/17/23 06/18/23 23:59 23:59 23:59 Intake Total 470 / 470 920 / 920 200 / 200 Output Total 300 / 300 Balance 470 / 470 620 / 620 200 / 200 Lab / Micro Data 06/18/23 04:26 06/18/23 04:26 Labs: Laboratory Results - last 24 hr 06/17/23 10:30: Hgb 8.2 L 06/17/23 11:32: POC Glucose 94 06/17/23 16:32: POC Glucose 119 H 06/17/23 20:56: POC Glucose 142 H 06/18/23 04:26: WBC 9.4, RBC 2.74 L, Hgb 7.9 L, Hct 26.9 L, MCV 98.2, MCH 28.8, MCHC 29.4 L, RDW Std Deviation 64.6 H, RDW Coeff of Becca 18.2 H, Plt Count 374, MPV 9.6, Immature Gran % (Auto) 1.300 H, Neut % (Auto) 82.7 H, Lymph % (Auto) 5.2 L, [place] % (Auto) 4.4, Eos % (Auto) 5.9 H, Baso % (Auto) 0.5, Absolute Neuts (auto) 7.8 H, Absolute Lymphs (auto) 0.49 L, Nucleated RBC % 0, Sodium 137, Potassium 4.2, Chloride 103, Carbon Dioxide 23.0, Anion Gap 11, BUN 61 H, Creatinine 7.29 H, Estim Creat Clear Calc 6.31, Est GFR (MDRD) Af Amer 7 L, Est GFR (MDRD) Non-Af 6 L, BUN/Creatinine Ratio 8.4 L, Glucose 69 L, Calcium 6.1 L* 06/18/23 06:02: POC Glucose 81 Micro: Microbiology 06/10/23 23:43 Sputum, Tracheal Aspirate Gram Stain - Final 06/10/23 23:43 Sputum, Tracheal Aspirate Respiratory Culture - Final Brina albicans Yeast, not Brina albicans 06/07/23 17:10 Stool Stool Occult Blood (SANJUANA) - Final Occult Blood Positive Physical Exam Const alert and no apparent distress HEENT head/scalp atraumatic and moist oral mucous membranes Resp normal respiratory effort, no retractions, no use of accessory muscles and clear to auscultation bilaterally Cardio regular rate, regular rhythm, S1 normal heart sound and S2 normal heart sound GI normal to inspection, nondistended, normoactive bowel sounds, soft to palpation, non-tender and non-distended Extremity normal to inspection Assessment & Plan Assessment/Plan (1) Gastric peptic ulcer: (2) Upper GI bleed: (3) Acute on chronic anemia: (4) Acute hypoxic respiratory failure: (5) Aphasia: (6) Dysarthria: PLAN: Plan Dysarthria/acute confusion Stroke team 06/15/2023 MRI negative Continue home statin Continue Plavix CTA of the head and neck showed critical (99%) right carotid artery stenosis and severe (80%) left carotid artery stenosis with patent vertebrals bilaterally. Patient has known carotid artery stenosis and actually an appointment last Sunday with vascular surgery which she missed due to being in the hospital for her GI bleed PT and OT already following Bilateral carotid artery stenosis 99% on the right and 80% on the left Patient just had carotid Dopplers on 05/22/2023 so no need to repeat. These demonstrated severe (greater than 70%) stenosis in the right internal carotid artery and moderate 50 to 69% stenosis in the left carotid artery. Discussed with Dr. Chan and Plavix okay but no aspirin for the next 2 weeks Discussed case with vascular surgery--> she is currently not a medical or surgical candidate for any intervention on her carotid arteries due to contraindication to anticoagulation with heparin and DAPT Dr. Farias recommending outpt follow up. No acute intervention at this time. Upper GI bleed secondary to gastric ulcers Initial EGD done on 06/08/2023 and showed grade 2 esophageal varices with oozing gastric ulcer that was injected and treated with heater probe as well as a single gastric polyp that was resected and retrieved and a single bleeding angiodysplastic lesion in the duodenum Recurrent bleeding so emergent repeat EGD done on 06/10/2023 that demonstrated grade 1 esophageal varices with red blood in the entire stomach, oozing gastric ulcer with a visible vessel that was treated with heater probe and hemostatic spray and injected, a spurting gastric ulcer with visible vessel that was treated with heater probe, hemostatic spray and clips were placed. This too was injected. Repeat EGD done 06/11/2023 with no obvious bleeding noted P.o. Protonix 40 mg p.o. twice daily for 8 weeks with a transition to 40 mg daily after this time. Carafate started 4 times daily and she will continue this for 6 weeks GI --> no antiplatelet therapy with aspirin for [address] Chan was okay with starting Plavix and this was initiated on 06/16/2023 Esophageal varices Grade 2 noted on initial EGD. With upper GI bleed and esophageal varices will continue ceftriaxone for SBP prophylaxis Empiric ceftriaxone completed Acute on chronic anemia due to blood loss with chronic anemia secondary to renal disease Appears that her baseline hemoglobin runs between 7.5 and 9.5 Stable and acuity has resolved Hemoglobin this morning is 8.1 with repeat at 8.2 Debility/generalized weakness Related to her acute hospitalization PT/OT following Recommending skilled facility at discharge which is not unexpected due to the significant acuity of her hospitalization Anticipate patient will be here through the weekend as family has not decided if they want to send her to a skilled facility yet or not and would really like her to be able to go home and would like to see how she does with a few more days of therapy Chronic conditions: CAD/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/mild aortic stenosis-History of CABG x 4-EF is 60% with stage II diastolic dysfunction, pulmonary pressures are 55 mmHg, mild aortic stenosis with a mean valve gradient of 16 mmHg, moderate mitral valve insufficiency noted on last echo-Aspirin to be held for 2 weeks-Patient was started on Plavix 75 mg daily due to the above and ideally should probably be on dual antiplatelet therapy-Will continue Coreg but hold the rest of her antihypertensives and allow some for permissive hypertension with stroke concerns-Continue as needed hydralazine-Continue home statin Moderate secondary pulmonary hypertension-Secondary to COPD-who group 2-Pulmonary pressures on last echo were 55 mmHg-Continue Bumex-Majority of fluid management for her is managed with dialysis End-stage renal disease-HD dependent-Patient is typically dialyzed M/W/F--> continue dialysis per nephrology-Continue home phosphate binder-Nephrology following. Appreciate input Chronic hypoxic respiratory failure secondary to COPD-Patient on 2 L of oxygen at baseline-Patient has now been weaned to 2 L nasal cannula status post extubation-Continue bronchodilators. Patient is currently mechanically ventilated-Hold home guaifenesin-Hold home scheduled inhalers DM-2-Blood glucose is well-controlled with current a.m. fasting being 99-Does not appear like patient is taking any medications for glucose control at this fcab-Wjca-Zfrnz changed to 3 times daily-Cardiac/carb controlled woys-Kiov-Tjwhr as ordered RLS-Continue home Mirapex GERD-Protonix p.o. twice daily-Carafate Anxiety/depression-Continue home amitriptyline DVT prophylaxis: -SCDs-Chemoprophylaxis contraindicated due to bleeding CODE STATUS -DNR CCA no intubation Disposition: -plan for [facility]. KEM family at bedside.
[2023-06-18] MEDS: Epoetin Alfa epbx 10,000 UNIT/ML 10000 UNIT IV (09:20)
[2023-06-18] MEDS: Heparin 10,000 UNITS/10 ML Vial IV (11:30)
--- NOTE | 2023-06-18 11:36 | PCM.PN.REN ---
Subjective Subjective Patient seen and examined on dialysis. Overall clinically looks better again today. Possible discharge to home. Multiple family members at bedside. Objective Data Objective Data Vital Signs: Vital Signs Temp Pulse Resp BP Pulse Ox O2 Del Method O2 Flow Rate 97.9 F 84 14 172/55 H 97 Nasal Cannula 2 06/18/23 06:35 06/18/23 10:58 06/18/23 10:58 06/18/23 10:58 06/18/23 10:58 06/18/23 10:58 06/18/23 10:58 FiO2 35 06/13/23 16:00 Oxygen Flow Rate (L/min) 2 Oxygen Delivery Method Nasal Cannula Weight: 77.1 kg Body Mass Index (BMI) 31.2 Intake & Output: Intake and Output for Last 24 Hours 06/16/23 06/17/23 06/18/23 23:59 23:59 23:59 Intake Total 470 / 470 920 / 920 200 / 200 Output Total 300 / 300 Balance 470 / 470 620 / 620 200 / 200 Lab / Micro Data 06/18/23 04:26 06/18/23 04:26 Labs: Laboratory Results - last 24 hr 06/17/23 11:32: POC Glucose 94 06/17/23 16:32: POC Glucose 119 H 06/17/23 20:56: POC Glucose 142 H 06/18/23 04:26: WBC 9.4, RBC 2.74 L, Hgb 7.9 L, Hct 26.9 L, MCV 98.2, MCH 28.8, MCHC 29.4 L, RDW Std Deviation 64.6 H, RDW Coeff of Becca 18.2 H, Plt Count 374, MPV 9.6, Immature Gran % (Auto) 1.300 H, Neut % (Auto) 82.7 H, Lymph % (Auto) 5.2 L, [place] % (Auto) 4.4, Eos % (Auto) 5.9 H, Baso % (Auto) 0.5, Absolute Neuts (auto) 7.8 H, Absolute Lymphs (auto) 0.49 L, Nucleated RBC % 0, Sodium 137, Potassium 4.2, Chloride 103, Carbon Dioxide 23.0, Anion Gap 11, BUN 61 H, Creatinine 7.29 H, Estim Creat Clear Calc 6.31, Est GFR (MDRD) Af Amer 7 L, Est GFR (MDRD) Non-Af 6 L, BUN/Creatinine Ratio 8.4 L, Glucose 69 L, Calcium 6.1 L* 06/18/23 06:02: POC Glucose 81 Micro: Microbiology 06/10/23 23:43 Sputum, Tracheal Aspirate Gram Stain - Final 06/10/23 23:43 Sputum, Tracheal Aspirate Respiratory Culture - Final Brina albicans Yeast, not Brina albicans 06/07/23 17:10 Stool Stool Occult Blood (SANJUANA) - Final Occult Blood Positive Physical Exam Narrative Alert orient x 3, no apparent distress S1, S2, RRR Lungs clear anteriorly and posteriorly Abdomen soft No pitting edema Tunneled HD catheter accessed for hemodialysis, dressing clean dry and intact Assessment & Plan Assessment/Plan (1) ESRD on dialysis: PLAN: Plan Impression/Plan: The patient is a 77-year-old woman with past history of type 2 diabetes mellitus, hypertension, CAD, HFpEF, anemia, GERD, ESRD, and anxiety disorder. The patient is admitted to hospital on 06/07/2023 with acute blood loss anemia due to GI bleed. Nephrology is following for ESRD and dialysis management. - ESRD. The patient dialyzes on MWF schedule at [facility] in [place]. Undergoing hemodialysis today and tolerating around 2.5 L fluid removal. Possible discharge today and patient will resume dialysis and dialysis schedule at her kidney center in [place]. -Upper GI bleed secondary to gastric ulcers. Gastroenterology following. Hgb 7.9. Received KALPANA with dialysis -Acute hypoxic respiratory failure. Patient was intubated during endoscopic evaluation. Successful extubation 06/12. Currently on oxygen 2 L which is patient's baseline. -Blood pressures slightly elevated but should see improvement with ultrafiltration. -Discharge planning, possible discharge today
[2023-06-18 11:42] LABS: Bedside Glucose 94 mg/dL (74-106)
--- NOTE | 2023-06-18 12:51 | CASEMGMT ---
Addendum entered by Mayra Nagy 06/18/23 15:54: [facility] is not able to accept patient. [facility] and [facility] are both able to accept. RN CM updated patient and daughter, [facility] is facility of choice. RN CM updated [facility] and discharge plan. Patient and daughter had no further questions or concerns. Addendum entered by Mayra Nagy 06/18/23 14:51: Patient has order for discharge today. RN CM in to disucss HHC preferences. Patient and daughters prefer [facility] as first choice. [facility] and [facility] additional choices. Daughter agreeable to have referral sent to all preferred agencies. RN CM [facility], [facility], and [facility]. CM will continue to follow this patient and plan for a safe discharge. Original Note: RN CM in to discuss needs at discharge and progress with therapy. Patient ambulated 30 feet contact guard. RN CM discussed possible HHC. Per Daughter, patient will be staying with her other daughter in [place]. A list of HHC providers including quality and resource use data and consistent with the patient?s preferred geographical region, medical needs, and insurance network were provided from the [employer]. Paiient and daughter to review list and provide preferences. CM will continue to follow this patient and plan for a safe discharge.
[2023-06-18] MEDS: Pramipexole Di-HCl 0.5 MG Tablet PO (13:42)
[2023-06-18] MEDS: Bumetanide 2 MG Tablet PO (13:43)
[2023-06-18] MEDS: Pantoprazole Sodium 40 MG Tablet PO (13:43)
[2023-06-18] MEDS: Isosorbide Mononitrate 60 MG Tablet PO (13:43)
[2023-06-18] MEDS: Clopidogrel Bisulfate 75 MG Tablet PO (13:43)
[2023-06-18] MEDS: amLODIPine 10 MG Tablet PO (13:43)
[2023-06-18] MEDS: Carvedilol 12.5 MG Tablet PO (13:43)
[2023-06-18] MEDS: SEVELAMER CARBONATE 800 MG TABLET PO (13:43)
[2023-06-18] MEDS: Polyethylene Glycol 3350 17 GM PACKET PO (13:44)
--- NOTE | 2023-06-18 14:08 | DS.PCM_ITS ---
Providers Date of Admission: 06/07/23 Primary Care Physician: Dr. Levi Laird MD Consultations 06/07/23 20:29 Consult: Gastroenterology Routine Consulting Provider: [facility] Reason for Consult: GI bleed EMERGENT Consult: No MD Notified: Yes Date Notified: 06/07/23 Time Notified: 18:31 Method of Notification: ED Physician Initiated Consult: Nephrology Routine Consulting Provider: Evert Waite Reason for Consult: ESRD on HD EMERGENT Consult: No MD Notified: Yes Date Notified: 06/08/23 Time Notified: 06:12 Method of Notification: Answering Service 06/10/23 17:25 Consult: Check Inspector / Pulmonary Medicine Routine Consulting Provider: [facility]/Pulmonary Med Reason for Consult: acute respiratory failure EMERGENT Consult: No Notified: Yes Date Notified: 06/10/23 Time Notified: 17:25 Method of Notification: Answering Service Method of Consult:: Telemedicine 06/15/23 23:35 Consult: Tele-Neurology Routine Consulting Provider: [facility] Reason for Consult: Acute Ischemic Stroke/TIA EMERGENT Consult: No Notified: Yes Date Notified: 06/15/23 Time Notified: 23:35 Method of Notification: Verbal Nursing Unit Staff Notify [facility] of Tele-Neurology Consult: Yes 06/15/23 23:48 Consult: Vascular Surgery Routine Consulting Provider: [facility] Reason for Consult: 99% right carotid stenosis EMERGENT Consult: No Notified: Yes Date Notified: 06/15/23 Time Notified: 23:48 Method of Notification: Text Reason For Visit: SEVERE ANEMIA Diagnosis Discharge Diagnosis (1) Gastric peptic ulcer: Status: Acute Code(s): K25.9 - Gastric ulcer, unspecified as acute or chronic, without hemorrhage or perforation (2) Upper GI bleed: Status: Resolved Code(s): K92.2 - Gastrointestinal hemorrhage, unspecified (3) Acute on chronic anemia: Status: Chronic Code(s): D64.9 - Anemia, unspecified (4) Acute hypoxic respiratory failure: Status: Resolved Code(s): J96.01 - Acute respiratory failure with hypoxia (5) Aphasia: Status: Acute Code(s): R47.01 - Aphasia (6) Dysarthria: Status: Acute Code(s): R47.1 - Dysarthria and anarthria Plan Dysarthria/acute confusion * Stroke team 06/15/2023 * MRI negative * Continue home statin * Continue Plavix * CTA of the head and neck showed critical (99%) right carotid artery stenosis and severe (80%) left carotid artery stenosis with patent vertebrals bilaterally. Patient has known carotid artery stenosis and actually an appointment last Sunday with vascular surgery which she missed due to being in the hospital for her GI bleed * PT and OT already following Bilateral carotid artery stenosis * 99% on the right and 80% on the left * Patient just had carotid Dopplers on 05/22/2023 so no need to repeat. These demonstrated severe (greater than 70%) stenosis in the right internal carotid artery and moderate 50 to 69% stenosis in the left carotid artery. * Discussed with Dr. Chan and Plavix okay but no aspirin for the next 2 weeks * Discussed case with vascular surgery--> she is currently not a medical or surgical candidate for any intervention on her carotid arteries due to contraindication to anticoagulation with heparin and DAPT * Dr. Farias recommending outpt follow up. No acute intervention at this time. Upper GI bleed secondary to gastric ulcers * Initial EGD done on 06/08/2023 and showed grade 2 esophageal varices with oozing gastric ulcer that was injected and treated with heater probe as well as a single gastric polyp that was resected and retrieved and a single bleeding angiodysplastic lesion in the duodenum * Recurrent bleeding so emergent repeat EGD done on 06/10/2023 that demonstrated grade 1 esophageal varices with red blood in the entire stomach, oozing gastric ulcer with a visible vessel that was treated with heater probe and hemostatic spray and injected, a spurting gastric ulcer with visible vessel t hat was treated with heater probe, hemostatic spray and clips were placed. This too was injected. * Repeat EGD done 06/11/2023 with no obvious bleeding noted * P.o. Protonix 40 mg p.o. twice daily for 8 weeks with a transition to 40 mg daily after this time. * Carafate started 4 times daily and she will continue this for 6 weeks * GI --> no aspirin for [address] Chan was okay with starting Plavix and this was initiated on 06/16/2023 Esophageal varices * Grade 2 noted on initial EGD. * With upper GI bleed and esophageal varices will continue ceftriaxone for SBP prophylaxis * Empiric ceftriaxone completed Acute on chronic anemia due to blood loss with chronic anemia secondary to renal disease * Appears that her baseline hemoglobin runs between 7.5 and 9.5 * Stable and acuity has resolved * Hemoglobin this morning is 8.1 with repeat at 8.2 Debility/generalized weakness * Related to her acute hospitalization * PT/OT following * Recommending skilled facility at discharge which is not unexpected due to the significant acuity of her hospitalization * Anticipate patient will be here through the weekend as family has not decided if they want to send her to a skilled facility yet or not and would really like her to be able to go home and would like to see how she does with a few more days of therapy Chronic conditions: * CAD/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/mild aortic stenosis- History of CABG x 4-EF is 60% with stage II diastolic dysfunction, pulmonary pressures are 55 mmHg, mild aortic stenosis with a mean valve gradient of 16 mmHg, moderate mitral valve insufficiency noted on last echo-Aspirin to be held for 2 weeks-Patient was started on Plavix 75 mg daily due to the above and ideally should probably be on dual antiplatelet therapy-Will continue Coreg but hold the rest of her antihypertensives and allow some for permissive hypertension with stroke concerns-Continue as needed hydralazine-Continue home statin * Moderate secondary pulmonary hypertension-Secondary to COPD-who group 2- Pulmonary pressures on last echo were 55 mmHg-Continue Bumex-Majority of fluid management for her is managed with dialysis * End-stage renal disease-HD dependent-Patient is typically dialyzed M/W/F--> continue dialysis per nephrology-Continue home phosphate binder-Nephrology following. Appreciate input * Chronic hypoxic respiratory failure secondary to COPD-Patient on 2 L of oxygen at baseline-Patient has now been weaned to 2 L nasal cannula status post extubation-Continue bronchodilators. Patient is currently mechanically ventilated-Hold home guaifenesin-Hold home scheduled inhalers * DM-2-Blood glucose is well-controlled with current a.m. fasting being 99-Does not appear like patient is taking any medications for glucose control at this iadl-Geki-Duhgj changed to 3 times daily-Cardiac/carb controlled llfa-Bwsm-Bxkga as ordered * RLS-Continue home Mirapex * GERD-Protonix p.o. twice daily-Carafate * Anxiety/depression-Continue home amitriptyline DVT prophylaxis: -SCDs-Chemoprophylaxis contraindicated due to bleeding CODE STATUS -DNR CCA no intubation Disposition: -plan for [facility]. DW family at bedside. Medications at Discharge Home Medications amitriptyline 100 mg tablet 100 mg PO QHS mental health 04/09/13 atorvastatin 80 mg tablet 80 mg PO DAILY CHOLESTEROL 10/25/17 amlodipine 10 mg tablet 10 mg PO DAILY BP 06/01/18 doxazosin 8 mg tablet 8 mg PO QHS blood pressure 08/20/18 hydralazine 100 mg tablet 100 mg PO TID diuretic 01/01/19 bumetanide 2 mg tablet 2 mg PO DAILY diuretic 03/14/19 nitroglycerin 0.4 mg sublingual tablet 0.4 mg sublingual Q5M PRN CHEST PAIN 03/14/19 albuterol sulfate 90 mcg/actuation aerosol inhaler (ProAir HFA) 2 puff inhalation Q6H PRN sob 09/30/20 ropinirole 0.5 mg tablet 1.5 mg PO .COMPLEX restless legs 07/07/21 acetaminophen 500 mg tablet (Acetaminophen Extra Strength) 1,000 mg PO DAILY PRN Pain 05/04/22 ascorbic acid (vitamin C) 500 mg tablet 500 mg PO DAILY SUPPLEMENT 05/04/22 sevelamer carbonate 800 mg tablet 800 mg PO TIDCM PHOSPHATE 05/04/22 isosorbide mononitrate 60 mg tablet,extended release 24 hr 60 mg PO DAILY heart 05/14/22 albuterol sulfate 1.25 mg/3 mL solution for nebulization 1.25 mg (3 mL) inhalation 4X/DAY Wheezing #360 mL 03/20/23 budesonide-formoterol HFA 160 mcg-4.5 mcg/actuation aerosol inhaler (Symbicort) 2 inh inhalation BID breathing #3 ea 05/01/23 carvedilol 12.5 mg tablet 12.5 mg PO BID bp #180 tabs 05/17/23 guaifenesin 1,200 mg tablet, extended release 12 hr 1,200 mg PO Q12H PRN congestion 05/17/23 clopidogrel 75 mg tablet 75 mg PO DAILY #30 tabs 06/18/23 pantoprazole 40 mg tablet,delayed release 40 mg PO BID #60 tabs 06/18/23 sucralfate 1 gram tablet 1 g PO 1HR_ACHS #120 tabs 06/18/23 Hospital Course Operations None Procedures Dialysis and EGD Summary of Care Provided Minutes Spent on Discharge: 40 Hospital Course: Patient presents with dyspnea found to have GI bleed. She underwent an EGD on the that showed grade 2 esophageal varices with oozing gastric ulcer with pigmented material. She underwent a repeat EGD on the that showed grade 1 esophageal varices, red blood in the entire stomach, oozing gastric ulcer with visible vessel that was injected. Spurting gastric ulcer with visible vessel that was also injected. No repeat EGD showed grade 1 esophageal varices [id number] material throughout the incensed higher stomach. Nonbleeding gastric ulcer with no stigmata of bleeding. On the , patient had dysarthria and confusion. She underwent a stroke workup: MRI of the brain was unremarkable . CT of the head no acute showed severe narrowing of the right carotid bulb. Patient's symptoms did subsequent resolved. Vascular surgery evaluated and felt there may have been some timing issue in regards to the contrast and radiology read but given her current issues did not recommend acute intervention at this time. He would follow-up with her as outpatient. Patient was evaluated for usp but the family would prefer the patient to go home with home care. They are concerned about the facilities, that require dialysis may not be ideal for her long-term recovery. Weight / BMI Weight Weight: 74.8 kg Body Mass Index (BMI) 30.3 ABG / Lab / Microbiology Data 06/18/23 04:26 06/18/23 04:26 Laboratory: Laboratory Results - last 24 hr 06/17/23 16:32: POC Glucose 119 H 06/17/23 20:56: POC Glucose 142 H 06/18/23 04:26: WBC 9.4, RBC 2.74 L, Hgb 7.9 L, Hct 26.9 L, MCV 98.2, MCH 28.8, MCHC 29.4 L, RDW Std Deviation 64.6 H, RDW Coeff of Becca 18.2 H, Plt Count 374, MPV 9.6, Immature Gran % (Auto) 1.300 H, Neut % (Auto) 82.7 H, Lymph % (Auto) 5.2 L, Bacon % (Auto) 4.4, Eos % (Auto) 5.9 H, Baso % (Auto) 0.5, Absolute Neuts (auto) 7.8 H, Absolute Lymphs (auto) 0.49 L, Nucleated RBC % 0, Sodium 137, Potassium 4.2, Chloride 103, Carbon Dioxide 23.0, Anion Gap 11, BUN 61 H, Creatinine 7.29 H, Estim Creat Clear Calc 6.31, Est GFR (MDRD) Af Amer 7 L, Est GFR (MDRD) Non-Af 6 L, BUN/Creatinine Ratio 8.4 L, Glucose 69 L, Calcium 6.1 L* 06/18/23 06:02: POC Glucose 81 06/18/23 11:17: POC Glucose 94 Microbiology: Microbiology 06/10/23 23:43 Sputum, Tracheal Aspirate Gram Stain - Final 06/10/23 23:43 Sputum, Tracheal Aspirate Respiratory Culture - Final Brina albicans Yeast, not Brina albicans 06/07/23 17:10 Stool Stool Occult Blood (SANJUANA) - Final Occult Blood Positive D/C Instructions Discharge Diet: Renal Diet Meaningful Use Info Meaningful Use Diagnoses (Choose all that apply): None applicable Discharge Plan Admission Admit Date/Time: 06/07/23 18:30 Attending Provider: Sandoval Tong Primary Care Provider: Levi Laird Consulting Providers: Trent Resendiz; Jo Ken; Evert Waite; Mal Escoto; Evelia Munoz; Mara Augustin; Sally Oates; Maryam Dietz; Eulalio Garcia; Isabel Saldana; Jovi Boss; Angelo Conner; Mine Eugene; Alphonso Mckeon; Denise Schroeder; Hakeem Garcia; Dandre Lopez; Jose De Jesus Vasquez; Thomas Holguin; Arsh Nguyen; Sheila Hillman; Rigo Mcelroy; Sandoval Farias; Sally Spain; Sarah Hillman Instructions Additional Instructions / Restrictions: He has symptomatic anemia secondary to gastric ulcers and varices. He underwent 3 EGDs where the at the cauterized ulcers. Not Supportan that you do continue to take Protonix and Carafate. He also have a severe carotid stenosis. Your evaluated by Dr. Farias who recommends outpatient follow-up at this time as there is no acute indication for surgery at this time. Follow-up with nephrology for routine dialysis. Discharge Orders/Prescriptions Prescriptions: New clopidogrel 75 mg Tablet 75 mg PO DAILY Qty: 30 0RF sucralfate 1 gram Tablet 1 g PO 1HR_ACHS Qty: 120 0RF pantoprazole 40 mg Tablet,Delayed Release (Dr/Ec) 40 mg PO BID Qty: 60 0RF Continued albuterol sulfate [ProAir HFA] 90 mcg/actuation HFA aerosol inhaler 2 puff inhalation Q6H PRN (Reason: sob) ropinirole 0.5 mg tablet 1.5 mg PO .COMPLEX Patient Comments: 1 mg every morning and afternoon 1.5mg every evening Rx Instructions: 1.5 mg orally QHS; 1 mg orally every morning and afternoon guaifenesin 1,200 mg tablet extended release 12hr 1,200 mg PO Q12H PRN (Reason: congestion) amitriptyline 100 MG tablet 100 mg PO QHS Patient Comments: MENTAL HEALTH atorvastatin 80 MG tablet 80 mg PO DAILY Patient Comments: amlodipine 10 MG tablet 10 mg PO DAILY doxazosin 8 MG tablet 8 mg PO QHS hydralazine 100 mg tablet 100 mg PO TID nitroglycerin 0.4 MG tablet, sublingual 0.4 mg SL Q5M PRN (Reason: CHEST PAIN) bumetanide 2 MG tablet 2 mg PO DAILY acetaminophen [Acetaminophen Extra Strength] 500 mg Tablet 1,000 mg PO DAILY PRN (Reason: Pain) sevelamer carbonate 800 mg tablet 800 mg PO TIDCM ascorbic acid (vitamin C) 500 MG tablet 500 mg PO DAILY isosorbide mononitrate 60 mg tablet extended release 24 hr 60 mg PO DAILY albuterol sulfate 1.25 mg/3 mL solution for nebulization 1.25 mg INHALATION 4X/DAY Qty: 360 6RF budesonide-formoterol [Symbicort] 160-4.5 mcg/actuation HFA aerosol inhaler 2 inh INHALATION BID Qty: 3 3RF Rx Instructions: administer with spacer, rinse mouth after each use carvedilol 12.5 mg tablet 12.5 mg PO BID Qty: 180 3RF Rx Instructions: must administer with a meal/food Discontinued omeprazole 40 MG capsule,delayed release(DR/EC) 40 mg PO DAILY Hold Instructions: Resume on 05/08/21. prednisone 10 mg tablet 10 mg PO UD Qty: 30 0RF Patient Comments: 20 mg dosing starts tomorrow Rx Instructions: Take 4 tablets daily for 3 days, then 3 daily for 3 days, then 2 daily for 3 days, then 1 a day for 3 days. Referrals / Follow Up: [facility] [Provider Group] - Within 1 Month [facility] [Provider Group] - Within 2 Weeks [facility] [Provider Group] - Within 1 Month Levi Laird MD [Primary Care Provider] - Within 2 Weeks Disposition Disposition (needs filled in before D/C Order can be placed): Home Health Service Charges/Coding Visit Charges Inpatient E&M: 42584 Disch Hosp >30min
--- NOTE | 2023-06-18 14:32 | NURSING ---
Per MATERIAL CHECKER Pt and pt's family wanted to make their own appts.
--- NOTE | 2023-06-18 15:45 | PHA.DC_ITS ---
Pharmacy [facility] Pharm[facility] Service has performed discharge medication reconciliation and counseling for this patient. 1. CLOPIDOGREL 75MG PO DAILY 2. SUCRALFATE 1GM PO 1HR_ACHS 3. PANTOPRAZOLE 40MG PO BID The patient's discharge medication list was reviewed for discrepancies and discrepancies were resolved. The patient was counseled on the following discharge medications and changes in medications for homegoing were reviewed. The Reason for Use, instructions for use, and potential side effects were reviewed for all new medications. The patient's questions regarding all of their medications were answered. The patient was able to verbally demonstrate an understanding of their discharge medications. Medications at Discharge Home Medications amitriptyline 100 mg tablet 100 mg PO QHS mental health 04/09/13 atorvastatin 80 mg tablet 80 mg PO DAILY CHOLESTEROL 10/25/17 amlodipine 10 mg tablet 10 mg PO DAILY BP 06/01/18 doxazosin 8 mg tablet 8 mg PO QHS blood pressure 08/20/18 hydralazine 100 mg tablet 100 mg PO TID diuretic 01/01/19 bumetanide 2 mg tablet 2 mg PO DAILY diuretic 03/14/19 nitroglycerin 0.4 mg sublingual tablet 0.4 mg sublingual Q5M PRN CHEST PAIN 03/14/19 albuterol sulfate 90 mcg/actuation aerosol inhaler (ProAir HFA) 2 puff inhalation Q6H PRN sob 09/30/20 ropinirole 0.5 mg tablet 1.5 mg PO .COMPLEX restless legs 07/07/21 acetaminophen 500 mg tablet (Acetaminophen Extra Strength) 1,000 mg PO DAILY PRN Pain 05/04/22 ascorbic acid (vitamin C) 500 mg tablet 500 mg PO DAILY SUPPLEMENT 05/04/22 sevelamer carbonate 800 mg tablet 800 mg PO TIDCM PHOSPHATE 05/04/22 isosorbide mononitrate 60 mg tablet,extended release 24 hr 60 mg PO DAILY heart 05/14/22 albuterol sulfate 1.25 mg/3 mL solution for nebulization 1.25 mg (3 mL) inhalation 4X/DAY Wheezing #360 mL 03/20/23 budesonide-formoterol HFA 160 mcg-4.5 mcg/actuation aerosol inhaler (Symbicort) 2 inh inhalation BID breathing #3 ea 05/01/23 carvedilol 12.5 mg tablet 12.5 mg PO BID bp #180 tabs 05/17/23 guaifenesin 1,200 mg tablet, extended release 12 hr 1,200 mg PO Q12H PRN con gestion 05/17/23 clopidogrel 75 mg tablet 75 mg PO DAILY #30 tabs 06/18/23 pantoprazole 40 mg tablet,delayed release 40 mg PO BID #60 tabs 06/18/23 sucralfate 1 gram tablet 1 g PO 1HR_ACHS #120 tabs 06/18/23
--- NOTE | 2023-06-18 18:52 | EX.PCM.CON.S ---
Assessment & Plan Assessment/Plan (1) Carotid artery stenosis: QUALIFIERS: Laterality: bilateral Qualified Code(s): I65.23 - Occlusion and stenosis of bilateral carotid arteries PLAN: -MRI negative for stroke -CTA images reviewed; poor contrast timing, right ICA 70% stenosis, left 65% -currently on plavix; no aspirin for at least 2 weeks -severe COPD; not likely to be operative candidate -if stent then will require dual antiplatelet for at least 1 month -ideally would repeat CTA with better contrast timing to more acurately assess degree of stenosis; if truly borderline would lean toward conservative and treat medically HPI Consult Data Date of Consult: 06/18/23 HPI Narrative HPI Narrative: JULISSA VEGA, is a 77 F who presents with acute upper GI bleed, required multiple endoscopic procedures to control followed by respiratory failure requiring intubation with difficult extubation. She has been intermittently confused over the past several days but now improved. She is awake and alert and acting appropriately interacting with family. No prior focal lateralizing numbness/weakness/vision loss/speech difficulty. She was recently admitted with confusion and imaging suggested carotid stenosis. Prior duplex with right ICA >70% stenosis, left 50-69%. CTA was performed this admission. FORMERLY [facility] Medical History (Updated 06/18/23 @ 19:[address] Sandoval Farias MD) (HFpEF) heart failure with preserved ejection fraction Anemia Anemia in chronic kidney disease Anxiety Arthritis CAD (coronary artery disease) Carotid artery stenosis Chronic hyponatremia Chronic respiratory failure with hypoxia COPD (chronic obstructive pulmonary disease) Diabetes mellitus type 2 in obese Dyslipidemia ESRD on dialysis Essential hypertension History of blood transfusion History of renal dialysis History of upper gastrointestinal bleeding Iron deficiency anemia Leg cramps Leukocytosis Morbid obesity with BMI of 40.0-44.9, adult Non-rheumatic mitral regurgitation Non-rheumatic tricuspid valve insufficiency On home oxygen therapy ELAINE (obstructive sleep apnea) Pleural effusion Pulmonary hypertension Restless leg syndrome Secondary pulmonary hypertension Shortness of breath on exertion Smoking greater than 40 pack years Valvular heart disease Wears dentures Wears glasses Home Medications amitriptyline 100 mg tablet 100 mg PO QHS mental health 04/09/13 [History Last Taken 05/13/22 21:00] atorvastatin 80 mg tablet 80 mg PO DAILY CHOLESTEROL 10/25/17 [History Last Taken 05/13/22 21:30] amlodipine 10 mg tablet 10 mg PO DAILY BP 06/01/18 [History Last Taken 05/14/22 08:30] doxazosin 8 mg tablet 8 mg PO QHS blood pressure 08/20/18 [History Last Taken 05/13/22 21:30] hydralazine 100 mg tablet 100 mg PO TID diuretic 01/01/19 [History Last Taken 05/14/22 14:00] bumetanide 2 mg tablet 2 mg PO DAILY diuretic 03/14/19 [History Last Taken 05/14/22 08:30] nitroglycerin 0.4 mg sublingual tablet 0.4 mg sublingual Q5M PRN CHEST PAIN 03/14/19 [History Last Taken Unknown] albuterol sulfate 90 mcg/actuation aerosol inhaler (ProAir HFA) 2 puff inhalation Q6H PRN sob 09/30/20 [History Last Taken 05/13/22 08:30] ropinirole 0.5 mg tablet 1.5 mg PO .COMPLEX restless legs 07/07/21 [History Last Taken 05/13/22 21:30] acetaminophen 500 mg tablet (Acetaminophen Extra Strength) 1,000 mg PO DAILY PRN Pain 05/04/22 [History Last Taken 05/14/22 14:00] ascorbic acid (vitamin C) 500 mg tablet 500 mg PO DAILY SUPPLEMENT 05/04/22 [History Last Taken 05/14/22 08:30] sevelamer carbonate 800 mg tablet 800 mg PO TIDCM PHOSPHATE 05/04/22 [History Last Taken 05/14/22 14:00] isosorbide mononitrate 60 mg tablet,extended release 24 hr 60 mg PO DAILY heart 05/14/22 [History Last Taken 05/13/22 21:30] albuterol sulfate 1.25 mg/3 mL solution for nebulization 1.25 mg (3 mL) inhalation 4X/DAY Wheezing #360 mL 03/20/23 [Rx Last Taken Unknown] budesonide-formoterol HFA 160 mcg-4.5 mcg/actuation aerosol inhaler (Symbicort) 2 inh inhalation BID breathing #3 ea 05/01/23 [Rx Last Taken Unknown] carvedilol 12.5 mg tablet 12.5 mg PO BID bp #180 tabs 05/17/23 [Rx Last Taken Unknown] guaifenesin 1,200 mg tablet, extended release 12 hr 1,200 mg PO Q12H PRN congestion 05/17/23 [History Last Taken Unknown] clopidogrel 75 mg tablet 75 mg PO DAILY #30 tabs 06/18/23 [Rx Last Taken Unknown] pantoprazole 40 mg tablet,delayed release 40 mg PO BID #60 tabs 06/18/23 [Rx Last Taken Unknown] sucralfate 1 gram tablet 1 g PO 1HR_ACHS #120 tabs 06/18/23 [Rx Last Taken Unknown] Allergy/AdvReac Type Severity Reaction Status Date / Time Penicillins Allergy Hives Verified 06/07/23 16:12 adhesive tape AdvReac Other Verified 06/07/23 16:12 Family History Mother Heart disease Father No problems noted. Surgical History H/O four vessel coronary artery bypass graft (~04/16/13) Hx of colonoscopy Hx of esophagogastroduodenoscopy Social History household members: family Smoking Status: Unknown if ever smoked how long ago did patient quit smoking: Quit ~ 13 yrs prior, smoked 3 ppd since in her 20s until quit. alcohol intake: current alcohol intake frequency: holidays/special occasions only substance use type: does not use ROS Constitutional Constitutional: Reports weakness; Denies chills, fever(s), frequent falls or lethargy Eyes Eyes: Denies blind spots, change in vision or loss of vision ENT HEENT: Denies bleeding gums, hoarseness or sore throat Cardiovascular Cardiovascular: Denies abdominal pain, bluish discoloration of hand/feet, chest pain with activity, claudication, cold extremities, cyanosis, dyspnea on exertion, erythema on extremities, irregular heart rhythm, leg edema, leg ulcers, numbness in extremities or weakness in extremities Respiratory/Chest Respiratory/Chest: Denies cough, excessive phlegm production, shortness of breath at rest, shortness of breath with exertion or wheezing Gastrointestinal Gastrointestinal: Denies anorexia, change in stool character, constipation, diarrhea, melena or rectal bleeding Genitourinary Genitourinary: Denies dysuria or hematuria Musculoskeletal Musculoskeletal: Denies abnormal gait Integumentary Integumentary: Reports other Details: ; Denies erythema, non-healing lesions or wounds Neurologic Neurologic: Denies abnormal speech, focal weakness, headache(s), loss of vision, numbness, paresthesias or sensory deficit Hematologic/Lymphatic Hematologic/Lymphatic: Denies easy bleeding, easy bruising or lymphadenopathy Physical Exam Const alert, oriented x3, no apparent distress and healthy appearing General Appearance: cooperative; Negative for combative or lethargic Orientation / Consciousness: awake Exam Limitations: no limitations HEENT Head and Scalp: normocephalic and atraumatic Eyes EOMs intact bilaterally General Eye: normal appearance of both eyes Neck full ROM, no lymphadenopathy, thyroid normal and No no carotid bruits General: trachea midline; Negative for lymphadenopathy or tenderness Thyroid: thyroid normal Lymph Lymphatic: Negative for no lymphadenopathy noted Resp normal respiratory effort and no use of accessory muscles Effort and Inspection: Negative for labored, stridor or audible wheezes Cardio regular rate and regular rhythm Back/Spine Cervical Spine: cervical ROM normal Extremity full ROM and normal capillary refill Skin no rashes or lesions noted and no wounds Neuro oriented x3, CN's II-XII intact bilaterally, no focal motor deficits and no sensory deficits noted Psych thought process normal, cooperative, affect normal, speech normal and activity/motor behavior normal Lab / Micro Data 06/18/23 04:26 06/18/23 04:26 Labs: Laboratory Results - last 24 hr 06/17/23 20:56: POC Glucose 142 H 06/18/23 04:26: WBC 9.4, RBC 2.74 L, Hgb 7.9 L, Hct 26.9 L, MCV 98.2, MCH 28.8, MCHC 29.4 L, RDW Std Deviation 64.6 H, RDW Coeff of Becca 18.2 H, Plt Count 374, MPV 9.6, Immature Gran % (Auto) 1.300 H, Neut % (Auto) 82.7 H, Lymph % (Auto) 5.2 L, [place] % (Auto) 4.4, Eos % (Auto) 5.9 H, Baso % (Auto) 0.5, Absolute Neuts (auto) 7.8 H, Absolute Lymphs (auto) 0.49 L, Nucleated RBC % 0, Sodium 137, Potassium 4.2, Chloride 103, Carbon Dioxide 23.0, Anion Gap 11, BUN 61 H, Creatinine 7.29 H, Estim Creat Clear Calc 6.31, Est GFR (MDRD) Af Amer 7 L, Est GFR (MDRD) Non-Af 6 L, BUN/Creatinine Ratio 8.4 L, Glucose 69 L, Calcium 6.1 L* 06/18/23 06:02: POC Glucose 81 06/18/23 11:17: POC Glucose 94 Charges/Coding Visit Charges Inpatient E&M: 80586 Init Hosp L3
--- NOTE | 2023-06-18 21:16 | PN.NEURO_ITS ---
Objective Data Objective Data Vital Signs: Vital Signs Temp Pulse Resp BP Pulse Ox O2 Del Method O2 Flow Rate 97.9 F 84 14 158/74 H 97 Nasal Cannula 2 06/18/23 15:04 06/18/23 15:04 06/18/23 15:04 06/18/23 15:04 06/18/23 15:04 06/18/23 15:04 06/18/23 15:04 FiO2 35 06/13/23 16:00 Oxygen Flow Rate (L/min) [ 2 AMBULATING with Oxygen #1] Oxygen Flow Rate (L/min) 2 Oxygen Delivery Method Nasal Cannula Weight: 74.8 kg Body Mass Index (BMI) 30.3 Intake & Output: Intake and Output for Last 24 Hours 06/16/23 06/17/23 06/18/23 23:59 23:59 23:59 Intake Total 470 / 470 920 / 920 1214 / 1214 Output Total 300 / 300 5100 / 5100 Balance 470 / 470 620 / 620 -3886 / -3886 Lab / Micro Data 06/18/23 04:26 06/18/23 04:26 Labs: Laboratory Results - last 24 hr 06/17/23 20:56: POC Glucose 142 H 06/18/23 04:26: WBC 9.4, RBC 2.74 L, Hgb 7.9 L, Hct 26.9 L, MCV 98.2, MCH 28.8, MCHC 29.4 L, RDW Std Deviation 64.6 H, RDW Coeff of Becca 18.2 H, Plt Count 374, MPV 9.6, Immature Gran % (Auto) 1.300 H, Neut % (Auto) 82.7 H, Lymph % (Auto) 5.2 L, [place] % (Auto) 4.4, Eos % (Auto) 5.9 H, Baso % (Auto) 0.5, Absolute Neuts (auto) 7.8 H, Absolute Lymphs (auto) 0.49 L, Nucleated RBC % 0, Sodium 137, Potassium 4.2, Chloride 103, Carbon Dioxide 23.0, Anion Gap 11, BUN 61 H, Creatinine 7.29 H, Estim Creat Clear Calc 6.31, Est GFR (MDRD) Af Amer 7 L, Est GFR (MDRD) Non-Af 6 L, BUN/Creatinine Ratio 8.4 L, Glucose 69 L, Calcium 6.1 L* 06/18/23 06:02: POC Glucose 81 06/18/23 11:17: POC Glucose 94 Micro: Microbiology 06/10/23 23:43 Sputum, Tracheal Aspirate Gram Stain - Final 06/10/23 23:43 Sputum, Tracheal Aspirate Respiratory Culture - Final Brina albicans Yeast, not Brina albicans 06/07/23 17:10 Stool Stool Occult Blood (SANJUANA) - Final Occult Blood Positive Physical Exam Neuro Neuro Narrative: Exam is not focal. Back to baseline. NIHSS: 0. Subject: Neurology Subjective Currently at baseline. Assessment and Plan: Stroke Assessment/Plan JULISSA VEGA is a 77 F with a history of CAD, HTN, HLD, HFPEF, mild aortic stenosis, moderate pulmonary hypertension, ESRD on HD, COPD, RLS, GERD, anxiety, depression recent upper GI Bleed from gastric ulcers who developed an episode of dysarthria while in the ICU. She is back to baseline. Mild fluctuating delirium. MRI Brain shows no acute stroke. She likely had a TIA from bilateral ICA stenosis. Neurological examination is without focal deficit. Neuroimaging shows Ct head is negative. CTA head and neck with bilateral ICA stenosis that are significant. ECHO shows EF 60%. Due to recent GI bleed was not started on ASA.Was not a candidate for thrombolysis due to GI bleed and improving symptoms 1. Was started on Plavix as was okay with GI. Please continue. 2. Has been seen and evaluated by vascular surgery for possible intervention for her carotid pending improvement in her medical condition (see vascular surgery note). 3. Optimization of stroke risk factors - HTN, HLD, ESRD.
== END 2023-06-18 17:03 | disposition home health service (06) | DRG 377 ==
LOC: ED 18:25 → PCU 18:52 → ICU 06-10 19:43 → PCU 06-18 06:59 → ICU 06-21 11:38 → PCU 06-21 11:40
PROVIDERS: Family Medicine; Internal Medicine; Internal Medicine Critical Care Medicine; Internal Medicine Gastroenterology; Internal Medicine Pulmonary Disease; Nurse Practitioner; Student in an Organized Health Care Education/Training Program; Admitting Provider Internal Medicine; Emergency Provider Emergency Medicine; PCP Family Medicine
PROC: 0DJ08ZZ Inspection of Upper Intestinal Tract, Via Natural or Artificial Opening Endoscopic (ICD-10-PCS; CPT 43235; principal; 2023-06-08 15:25)
DX: K25.4 Chronic or unspecified gastric ulcer with hemorrhage (principal); N18.6 End stage renal disease; J96.02 Acute respiratory failure with hypercapnia; G93.41 Metabolic encephalopathy; I13.2 Hypertensive heart and chronic kidney disease with heart failure and with stage 5 chronic kidney disease, or end stage renal disease; I50.32 Chronic diastolic (congestive) heart failure; Z99.11 Dependence on respirator [ventilator] status; J96.11 Chronic respiratory failure with hypoxia; E87.4 Mixed disorder of acid-base balance; D62 Acute posthemorrhagic anemia; F05 Delirium due to known physiological condition; R47.01 Aphasia; E87.20 Acidosis, unspecified; D63.8 Anemia in other chronic diseases classified elsewhere; D63.1 Anemia in chronic kidney disease; E83.51 Hypocalcemia; I85.00 Esophageal varices without bleeding; I27.29 Other secondary pulmonary hypertension; E11.622 Type 2 diabetes mellitus with other skin ulcer; E11.22 Type 2 diabetes mellitus with diabetic chronic kidney disease; Z79.4 Long term (current) use of insulin; F32.A Depression, unspecified; G25.81 Restless legs syndrome; I08.0 Rheumatic disorders of both mitral and aortic valves; D50.9 Iron deficiency anemia, unspecified; I65.23 Occlusion and stenosis of bilateral carotid arteries; E78.5 Hyperlipidemia, unspecified; I25.10 Atherosclerotic heart disease of native coronary artery without angina pectoris; K21.00 Gastro-esophageal reflux disease with esophagitis, without bleeding; D72.810 Lymphocytopenia; K31.7 Polyp of stomach and duodenum; F41.9 Anxiety disorder, unspecified; Z99.2 Dependence on renal dialysis; E87.5 Hyperkalemia; K59.00 Constipation, unspecified; E66.9 Obesity, unspecified; Z87.891 Personal history of nicotine dependence; Z79.52 Long term (current) use of systemic steroids; Z79.51 Long term (current) use of inhaled steroids; Z66 Do not resuscitate; K31.82 Dieulafoy lesion (hemorrhagic) of stomach and duodenum; K31.811 Angiodysplasia of stomach and duodenum with bleeding; Z79.82 Long term (current) use of aspirin; R53.81 Other malaise; Z86.16 Personal history of COVID-19; Z95.1 Presence of aortocoronary bypass graft; R47.1 Dysarthria and anarthria
CPT/HCPCS: 31720; 36415; 36600; 70450; 70496; 70498; 70551; 71045; 74018; 74176; 80048; 80053; 80061; 80076; 82140; 82274; 82533; 82803; 82962; 83036; 83605; 83735; 84100; 84443; 84478; 84484; 85014; 85018; 85025; 85027; 85384; 85610; 85730; 86850; 86900; 86901; 86920; 86922; 87070; 87205; 88305; 88342; 90937; 92526; 92610; 93005; 93308; 94002; 94003; 94640; 94660; 94668; 97110; 97116; 97161; 97162; 97165; 97530; 97535; 97803; 99283; J7030; J7040; J7050; P9016; Q9967; A4216; G0257; J0612; J2405; J3490; Q5106

== ENCOUNTER 2023-07-02 06:33 | Inpatient (IN) | payer MEDICARE, MEDICAID, SELFPAY ==
[2023-07-02] VITALS (22 sets, daily range): BP systolic 110–213; BP diastolic 40–84; PULSE 63–77; RESP 15–22; TEMP 36.1–37.4; O2SAT 92–98; BMI 31.8; BMI 31.4; BMI 31.6; BMI 30.6
--- NOTE | 2023-07-02 06:42 | RAD_ITS ---
INDICATION: sob EXAMINATION/TECHNIQUE: X-RAY - XR Chest 1 View COMPARISON: 06/11/2023. FINDINGS: LINES/DEVICES: Stable right-sided dialysis catheter. LUNGS: Bibasilar atelectasis versus infiltrates. Small bilateral pleural effusions. Stable elevation of the right hemidiaphragm. No evidence of a pneumothorax. MEDIASTINUM AND CARDIOVASCULAR STRUCTURES: Cardiac silhouette is normal in size and contour. Mediastinum is unremarkable. BONES AND SOFT TISSUES: No acute abnormality. RAD/Chest 1 View (Portable) IMPRESSION: Bibasilar atelectasis versus infiltrates and small bilateral pleural effusions. Electronically Signed: Dev Munson DO at 7:45 EDT ,
--- NOTE | 2023-07-02 06:43 | EKG12_ITS ---
Test Reason : SOB Blood Pressure : / mmHG Vent. Rate : 069 BPM Atrial Rate : 069 BPM P-R Int : 218 ms QRS Dur : 108 ms QT Int : 434 ms P-R-T Axes : 000 028 069 degrees QTc Int : 465 ms Sinus rhythm with 1st degree A-V block Otherwise normal ECG Confirmed by CHAITANYA DOVE, CARLOS ENRIQUE ([id number]), writer editor DENVER KRAUSE ([id number]) on 07/05/2023 11:32:29 AM Referred By: ROSALINDA Confirmed By:CARLOS ENRIQUE TAVARES MD
--- NOTE | 2023-07-02 06:50 | EX.ED.DYSGE1 ---
HPI <Dr. Hina Warren MD - Last Filed: 07/02/23 06:54> History of Present Illness Chief Complaint: Shortness of Breath Informant: patient Onset/Context/Timing Onset: Yesterday Context: Gradual Onset Narrative Narrative: Patient presents secondary to increasing shortness of breath with cough and congestion. Daughter reports that she noted symptoms getting worse around 9 PM last evening. She does not have a thermometer so they were not able to check to see if she has a fever. She did use her inhalers more frequently overnight and this morning. She was getting ready for dialysis this morning but given her shortness of breath felt she needed to come to the emergency room. They do note that her pulse ox readings were in the 80s at home. She did get a breathing treatment just prior to coming in. Patient was admitted to the hospital June 06 through the with upper GI bleeding and anemia. On the there was concern for potential stroke and she was found have bilateral carotid stenosis that is going to be followed as an outpatient. She was also diagnosed with COVID 1 month ago. [facility] <Dr. Hina Warren MD - Last Filed: 07/02/23 06:54> [facility] Medical History (HFpEF) heart failure with preserved ejection fraction Anemia Anemia in chronic kidney disease Anxiety Arthritis Atherosclerotic heart disease of [place] coronary artery without angina pectoris CAD (coronary artery disease) Carotid artery stenosis Carotid bruit Chronic diastolic heart failure Chronic hyponatremia Chronic respiratory failure with hypoxia CKD (chronic kidney disease), stage III Congestive heart failure COPD (chronic obstructive pulmonary disease) COVID-19 Diabetes mellitus type 2 in obese Dyslipidemia ESRD on dialysis Essential hypertension Gastritis History of blood transfusion History of renal dialysis History of upper gastrointestinal bleeding HTN (hypertension) Iron deficiency anemia Leg cramps Leukocytosis Mitral regurgitation Morbid obesity with BMI of 40.0-44.9, adult Non-rheumatic mitral regurgitation Non-rheumatic tricuspid valve insufficiency On home oxygen therapy ELAINE (obstructive sleep apnea) Pleural effusion Pulmonary hypertension Restless leg syndrome Secondary pulmonary hypertension Shortness of breath on exertion Smoking greater than 40 pack years Valvular heart disease Wears dentures Wears glasses Home Medications amitriptyline 100 mg tablet 100 mg PO QHS mental health 04/09/13 [History Last Taken 05/13/22 21:00] atorvastatin 80 mg tablet 80 mg PO DAILY CHOLESTEROL 08/23/18 [History Last Taken 05/13/22 21:30] amlodipine 10 mg tablet 10 mg PO DAILY BP 06/01/18 [History Last Taken 05/14/22 08:30] doxazosin 8 mg tablet 8 mg PO QHS blood pressure 08/20/18 [History Last Taken 05/13/22 21:30] hydralazine 100 mg tablet 100 mg PO TID diuretic 01/01/19 [History Last Taken 05/14/22 14:00] bumetanide 2 mg tablet 2 mg PO DAILY diuretic 03/14/19 [History Last Taken 05/14/22 08:30] nitroglycerin 0.4 mg sublingual tablet 0.4 mg sublingual Q5M PRN CHEST PAIN 03/14/19 [History Last Taken Unknown] albuterol sulfate 90 mcg/actuation aerosol inhaler (ProAir HFA) 2 puff inhalation Q6H PRN sob 09/30/20 [History Last Taken 05/13/22 08:30] ropinirole 0.5 mg tablet 1.5 mg PO .COMPLEX restless legs 07/07/21 [History Last Taken 05/13/22 21:30] acetaminophen 500 mg tablet (Acetaminophen Extra Strength) 1,000 mg PO DAILY PRN Pain 05/04/22 [History Last Taken 05/14/22 14:00] ascorbic acid (vitamin C) 500 mg tablet 500 mg PO DAILY SUPPLEMENT 05/04/22 [History Last Taken 05/14/22 08:30] sevelamer carbonate 800 mg tablet 800 mg PO TIDCM PHOSPHATE 05/04/22 [History Last Taken 05/14/22 14:00] isosorbide mononitrate 60 mg tablet,extended release 24 hr 60 mg PO DAILY heart 05/14/22 [History Last Taken 05/13/22 21:30] albuterol sulfate 1.25 mg/3 mL solution for nebulization 1.25 mg (3 mL) inhalation 4X/DAY Wheezing #360 mL 03/20/23 [Rx Last Taken Unknown] budesonide-formoterol HFA 160 mcg-4.5 mcg/actuation aerosol inhaler (Symbicort) 2 inh inhalation BID breathing #3 ea 05/01/23 [Rx Last Taken Unknown] carvedilol 12.5 mg tablet 12.5 mg PO BID bp #180 tabs 05/17/23 [Rx Last Taken Unknown] guaifenesin 1,200 mg tablet, extended release 12 hr 1,200 mg PO Q12H PRN congestion 05/17/23 [History Last Taken Unknown] clopidogrel 75 mg tablet 75 mg PO DAILY #30 tabs 06/18/23 [Rx Last Taken Unknown] pantoprazole 40 mg tablet,delayed release 40 mg PO BID #60 tabs 06/18/23 [Rx Last Taken Unknown] sucralfate 1 gram tablet 1 g PO 1HR_ACHS #120 tabs 06/18/23 [Rx Last Taken Unknown] Allergy/AdvReac Type Severity Reaction Status Date / Time Penicillins Allergy Hives Verified 06/07/23 16:12 adhesive tape AdvReac Other Verified 06/07/23 16:12 Family History Mother Heart disease Father No problems noted. Surgical History H/O four vessel coronary artery bypass graft (~04/16/13) Hx of colonoscopy Hx of esophagogastroduodenoscopy Social History household members: family Smoking Status: Former smoker quit date: 03/05/10 how long ago did patient quit smoking: Quit ~ 13 yrs prior, smoked 3 ppd since in her 20s until quit. alcohol intake: current alcohol intake frequency: holidays/special occasions only substance use type: does not use ROS <Dr. Hina Warren MD - Last Filed: 07/02/23 06:54> ROS ED Constitutional Constitutional ED: Denies chills or fever(s) Eyes Eyes: Denies discharge from eye(s) ENT ENT ED: Denies discharge from eye(s), rhinorrhea or sore throat Cardiovascular Cardiovascular: Denies chest pain or palpitations Respiratory/Chest Respiratory/Chest: Reports cough and dyspnea Gastrointestinal Gastrointestinal: Denies abdominal pain, diarrhea, nausea or vomiting Musculoskeletal Musculoskeletal: Denies back pain or extremity pain Integumentary Denies Abrasions or rash Neurologic Neurologic: Reports weakness; Denies headache(s) Psychiatric Psychiatric: Denies anxiety or depression Allergic/Immunologic Allergic/Immunologic ED: Denies lip swelling or urticaria EXAM <Dr. Hina Warren MD - Last Filed: 07/02/23 06:54> Physical Exam Const Vital Signs: 07/02/23 06:34 07/02/23 06:38 07/02/23 06:41 Temperature 98.4 F 98.4 F Temperature Source Oral Oral Pulse Rate 74 74 Respiratory Rate 22 H 22 H Respiratory Effort Normal Non-Labored Respiratory Depth Normal Respiratory Pattern Tachypnea Blood Pressure 144/59 H 144/59 H Blood Pressure Mean 87 87 Pulse Ox 95 95 Oxygen Delivery Method Nasal Cannula Nasal Cannula Nasal Cannula Oxygen Flow Rate (L/min) 2 2 2 07/02/23 07:34 07/02/23 07:38 07/02/23 08:15 Temperature 97.9 F Temperature Source Temporal Pulse Rate 69 69 68 Respiratory Rate 18 18 17 Respiratory Effort Respiratory Depth Respiratory Pattern Blood Pressure 122/50 H 122/50 H 146/48 H Blood Pressure Mean 74 74 80 Pulse Ox 98 98 97 Oxygen Delivery Method Nasal Cannula Nasal Cannula Nasal Cannula Oxygen Flow Rate (L/min) 2 07/02/23 08:15 Temperature 97.1 F L Temperature Source Oral Pulse Rate 68 Respiratory Rate 17 Respiratory Effort Respiratory Depth Respiratory Pattern Blood Pressure 146/48 H Blood Pressure Mean 80 Pulse Ox 97 Oxygen Delivery Method Nasal Cannula Oxygen Flow Rate (L/min) 2 Positive well nourished and well developed General Appearance ED: well developed HEENT Reports moist mucous membranes Eyes EOMs intact bilaterally Chest Wall inspection of chest normal and palpation of chest normal Resp normal respiratory effort Resp Narrative: Diminished breath sounds in the bilateral bases. No appreciable wheezes at this time. Cardio regular rate and regular rhythm GI non-tender Palpation: soft Extremity Extremity Narrative: 1-2+ lower extremity edema, symmetric. Neuro oriented x3 Neuro Narrative: No focal neurologic deficit. Psych mental status grossly normal <Dr. Benjamin May DO - Last Filed: 07/02/23 08:36> Physical Exam Const Vital Signs: 07/02/23 06:34 07/02/23 06:38 07/02/23 06:41 Temperature 98.4 F 98.4 F Temperature Source Oral Oral Pulse Rate 74 74 Respiratory Rate 22 H 22 H Respiratory Effort Normal Non-Labored Respiratory Depth Normal Respiratory Pattern Tachypnea Blood Pressure 144/59 H 144/59 H Blood Pressure Mean 87 87 Pulse Ox 95 95 Oxygen Delivery Method Nasal Cannula Nasal Cannula Nasal Cannula Oxygen Flow Rate (L/min) 2 2 2 07/02/23 07:34 07/02/23 07:38 07/02/23 08:15 Temperature 97.9 F Temperature Source Temporal Pulse Rate 69 69 68 Respiratory Rate 18 18 17 Respiratory Effort Respiratory Depth Respiratory Pattern Blood Pressure 122/50 H 122/50 H 146/48 H Blood Pressure Mean 74 74 80 Pulse Ox 98 98 97 Oxygen Delivery Method Nasal Cannula Nasal Cannula Nasal Cannula Oxygen Flow Rate (L/min) 2 07/02/23 08:15 Temperature 97.1 F L Temperature Source Oral Pulse Rate 68 Respiratory Rate 17 Respiratory Effort Respiratory Depth Respiratory Pattern Blood Pressure 146/48 H Blood Pressure Mean 80 Pulse Ox 97 Oxygen Delivery Method Nasal Cannula Oxygen Flow Rate (L/min) 2 MDM <Dr. Hina Warren MD - Last Filed: 07/02/23 06:54> [facility] MDM Narrative Medical decision making narrative: Patient placed on cafeteria monitor. EKG obtained to evaluate for cardiac arrhythmia/ischemia. IV line initiated. Labwork obtained to evaluate for leukocytosis, anemia, and electrolyte derangement. Chest x-ray obtained to evaluate for acute lung pathology, cardiac size, or mediastinal abnormality. Swab for COVID, influenza, and RSV will be obtained. Patient arrived at the end of my shift and will be followed by oncoming physician for repeat evaluation and final disposition. Patient and daughter at bedside are aware of the plan. Lab Data Labs: Laboratory Results - last 24 hr 07/02/23 06:48 WBC 8.8 RBC 3.25 L Hgb 9.2 L Hct 32.1 L MCV 98.8 MCH 28.3 MCHC 28.7 L RDW Std Deviation 65.9 H RDW Coeff of Becca 18.6 H Plt Count 324 MPV 10.2 Immature Gran % (Auto) 1.900 H Neut % (Auto) 77.1 H Lymph % (Auto) 8.6 L [place] % (Auto) 7.8 Eos % (Auto) 3.7 Baso % (Auto) 0.9 Absolute Neuts (auto) 6.8 Absolute Lymphs (auto) 0.76 L Nucleated RBC % 0.3 Polychromasia 1+ Anisocytosis RARE Sodium 140 Potassium 4.6 Chloride 103 Carbon Dioxide 33.0 H Anion Gap 4 L BUN 31 H Creatinine 7.00 H Estim Creat Clear Calc 6.66 Est GFR (MDRD) Af Amer 7 L Est GFR (MDRD) Non-Af 6 L BUN/Creatinine Ratio 4.4 L Glucose 124 H Calcium 8.3 L Troponin I High Sens 10 B-Natriuretic Peptide 395.8 H Radiography Diagnostic Testing: Clinical Impression(s) from Imaging Studies Chest X-Ray 07/02/23 06:42 IMPRESSION: Bibasilar atelectasis versus infiltrates and small bilateral pleural effusions. Electronically Signed: Dev Munson DO at 7:45 EDT , <Dr. Benjamin May DO - Last Filed: 07/02/23 08:36> [facility] Narrative Medical decision making narrative: Patient placed on cafeteria monitor. EKG obtained to evaluate for cardiac arrhythmia/ischemia. IV line initiated. Labwork obtained to evaluate for leukocytosis, anemia, and electrolyte derangement. Chest x-ray obtained to evaluate for acute lung pathology, cardiac size, or mediastinal abnormality. Swab for COVID, influenza, and RSV will be obtained. Patient arrived at the end of my shift and will be followed by oncoming physician for repeat evaluation and final disposition. Patient and daughter at bedside are aware of the plan. Care of patient turned over to vt by night physician. Awaiting lab workup and final disposition. EKG obtained on arrival showed a sinus rhythm with a rate of 69 bpm with first-degree AV block. CBC with differential showed a white count of 8.8 with hemoglobin of 9.2 and platelet count of 324. Chemistries unremarkable. Troponin was 10. BNP was 395. BUN was 31 and creatinine 7.0. Patient tested positive for COVID-19. Chest x-ray showed bilateral small effusions and some atelectasis versus early infiltrate in both lung bases. Patient was ambulated in the department on her 2 L and she dropped her O2 sat down to 86% on room air and became very dyspneic. Case discussed with hospitalist will evaluate patient for admission. Lab Data Attestation: I reviewed the patient's lab results. Labs: Laboratory Results - last 24 hr 07/02/23 06:48 WBC 8.8 RBC 3.25 L Hgb 9.2 L Hct 32.1 L MCV 98.8 MCH 28.3 MCHC 28.7 L RDW Std Deviation 65.9 H RDW Coeff of Becca 18.6 H Plt Count 324 MPV 10.2 Immature Gran % (Auto) 1.900 H Neut % (Auto) 77.1 H Lymph % (Auto) 8.6 L [place] % (Auto) 7.8 Eos % (Auto) 3.7 Baso % (Auto) 0.9 Absolute Neuts (auto) 6.8 Absolute Lymphs (auto) 0.76 L Nucleated RBC % 0.3 Polychromasia 1+ Anisocytosis RARE Sodium 140 Potassium 4.6 Chloride 103 Carbon Dioxide 33.0 H Anion Gap 4 L BUN 31 H Creatinine 7.00 H Estim Creat Clear Calc 6.66 Est GFR (MDRD) Af Amer 7 L Est GFR (MDRD) Non-Af 6 L BUN/Creatinine Ratio 4.4 L Glucose 124 H Calcium 8.3 L Troponin I High Sens 10 B-Natriuretic Peptide 395.8 H Radiography Diagnostic Testing: Clinical Impression(s) from Imaging Studies Chest X-Ray 07/02/23 06:42 IMPRESSION: Bibasilar atelectasis versus infiltrates and small bilateral pleural effusions. Electronically Signed: Dev Munson DO at 7:45 EDT , 1 view chest x-ray obtained interpreted by myself as pulmonary congestion with small bilateral effusions. Radiology felt there was bibasilar atelectasis versus infiltrate and small bilateral pleural effusions. EKG Initial EKG: Attestation: I personally reviewed and interpreted this EKG as follows: Comments: Sinus rhythm with rate of 69 bpm with first-degree AV block Discharge Plan Dx/Rx/DC Orders Clinical Impression: COVID-19, Acute dyspnea, Chronic kidney disease Disposition Disposition: [facility]
[2023-07-02 07:06] LABS: Absolute Lymphocyte Count 0.76 X10^3/uL (0.83-4.51); Absolute Neutrophil Count 6.8 X10^3/uL (2.0-7.7); Basophil# 0.08 X10^3/uL; Basophil% 0.9 % (0-1); Eosinophil# 0.33 X10^3/uL; Eosinophils% 3.7 % (0-5); Hematocrit 32.1 % (37-47); Hemoglobin 9.2 g/dL (12.0-15.0); Lymphocyte # 0.76 X10^3/ul (0.83-4.51); Lymphocyte % 8.6 % (19-41); Mean Corp Hgb Conc 28.7 g/dL (32-36); Mean Corpuscular Hgb 28.3 pg (27.0-32.0); Mean Corpuscular Volume 98.8 fL (81-99); Mean Platelet Vol. 10.2 fl (6.2-12.0); Monocyte# 0.69 X10^3/uL; Monocyte% 7.8 % (0-10); NRBC Flagged by Analyzer 0.3 % (0-5); Neutrophil # 6.79 X10^3/uL (2.7-7.7); Neutrophil % 77.1 % (47-70); POSITIVE MORPHOLOGY YES; Platelet Count 324 K/mm3 (150-450); RBC Distribution Width CV 18.6 % (11.6-14.6); RBC Distribution Width SD 65.9 fl (35.1-43.9); Red Blood Count 3.25 M/mm3 (4.2-5.4); White Blood Count 8.8 K/mm3 (4.4-11.0)
[2023-07-02 07:08] LABS: Differential Indicated SCAN CRITERIA MET
[2023-07-02 07:22] LABS: Anion Gap 4 (5-15); BUN 31 mg/dL (7-18); BUN/Creat Ratio 4.4 RATIO (10-20); Calcium,Total 8.3 mg/dL (8.5-10.1); Chloride 103 mmol/L (98-107); EST Glomerular Filtration Rate 6 mL/min (>60); Est Glom Filt Rate - Afr Amer 7 mL/min (>60); Estimated Creatinine Clearance 6.66 ml/min; Glucose 124 mg/dL (74-106); Potassium 4.6 mmol/L (3.5-5.1); Sodium Level 140 mmol/L (136-145); Troponin-I HS 10 pg/mL (3.0-54.0)
[2023-07-02 07:43] LABS: Anisocytosis RARE; Polychromasia 1+
[2023-07-02 08:06] LABS: BNP,B-Type NATRIURETIC PEPTIDE 395.8 pg/mL (0-100)
--- NOTE | 2023-07-02 08:29 | NURSING ---
DR TIMBO SHELL
--- NOTE | 2023-07-02 08:30 | NURSING ---
DR TIMBO FIGUEROA
--- NOTE | 2023-07-02 08:32 | PCM.HP.STD ---
[facility] - General General Date of Admission: 07/02/23 Date of Service: 07/02/23 Chief Complaint: Shortness of breath HPI Narrative JULISSA VEGA, is a 77 F with past medical history seen for end-stage renal disease on hemodialysis Wednesdays and Fridays, chronic congestive heart failure with preserved ejection fraction, coronary artery disease status post CABG anemia of chronic disorder who presented with shortness of breath. Her symptoms apparently started a day prior to coming in. Patient's daughter who accompanied the notice patient with persistent cough. There was no reported fever no chills. Patient denied any chest pain. In view of the worsening symptoms she presented to the emergency department.Bibasilar atelectasis versus infiltrates and small bilateral pleural effusions. Patient was placed on supplemental oxygen decision made to admit patient to a monitored bed for further management. [facility] Medical History (HFpEF) heart failure with preserved ejection fraction Anemia Anemia in chronic kidney disease Anxiety Arthritis Atherosclerotic heart disease of [place] coronary artery without angina pectoris CAD (coronary artery disease) Carotid artery stenosis Carotid bruit Chronic diastolic heart failure Chronic hyponatremia Chronic respiratory failure with hypoxia CKD (chronic kidney disease), stage III Congestive heart failure COPD (chronic obstructive pulmonary disease) COVID-19 Diabetes mellitus type 2 in obese Dyslipidemia ESRD on dialysis Essential hypertension Gastritis History of blood transfusion History of renal dialysis History of upper gastrointestinal bleeding HTN (hypertension) Iron deficiency anemia Leg cramps Leukocytosis Mitral regurgitation Morbid obesity with BMI of 40.0-44.9, adult Non-rheumatic mitral regurgitation Non-rheumatic tricuspid valve insufficiency On home oxygen therapy ELAINE (obstructive sleep apnea) Pleural effusion Pulmonary hypertension Restless leg syndrome Secondary pulmonary hypertension Shortness of breath on exertion Smoking greater than 40 pack years Valvular heart disease Wears dentures Wears glasses Home Medications amitriptyline 100 mg tablet 100 mg PO QHS mental health 04/09/13 [History Last Taken 05/13/22 21:00] atorvastatin 80 mg tablet 80 mg PO DAILY CHOLESTEROL 10/25/17 [History Last Taken 05/13/22 21:30] amlodipine 10 mg tablet 10 mg PO DAILY BP 06/01/18 [History Last Taken 05/14/22 08:30] doxazosin 8 mg tablet 8 mg PO QHS blood pressure 08/20/18 [History Last Taken 05/13/22 21:30] hydralazine 100 mg tablet 100 mg PO TID diuretic 01/01/19 [History Last Taken 05/14/22 14:00] bumetanide 2 mg tablet 2 mg PO DAILY diuretic 03/14/19 [History Last Taken 05/14/22 08:30] nitroglycerin 0.4 mg sublingual tablet 0.4 mg sublingual Q5M PRN CHEST PAIN 03/14/19 [History Last Taken Unknown] albuterol sulfate 90 mcg/actuation aerosol inhaler (ProAir HFA) 2 puff inhalation Q6H PRN sob 09/30/20 [History Last Taken 05/13/22 08:30] ropinirole 0.5 mg tablet 1.5 mg PO .COMPLEX restless legs 07/07/21 [History Last Taken 05/13/22 21:30] acetaminophen 500 mg tablet (Acetaminophen Extra Strength) 1,000 mg PO DAILY PRN Pain 05/04/22 [History Last Taken 05/14/22 14:00] ascorbic acid (vitamin C) 500 mg tablet 500 mg PO DAILY SUPPLEMENT 05/04/22 [History Last Taken 05/14/22 08:30] sevelamer carbonate 800 mg tablet 800 mg PO TIDCM PHOSPHATE 05/04/22 [History Last Taken 05/14/22 14:00] isosorbide mononitrate 60 mg tablet,extended release 24 hr 60 mg PO DAILY heart 05/14/22 [History Last Taken 05/13/22 21:30] albuterol sulfate 1.25 mg/3 mL solution for nebulization 1.25 mg (3 mL) inhalation 4X/DAY Wheezing #360 mL 03/20/23 [Rx Last Taken Unknown] budesonide-formoterol HFA 160 mcg-4.5 mcg/actuation aerosol inhaler (Symbicort) 2 inh inhalation BID breathing #3 ea 05/01/23 [Rx Last Taken Unknown] carvedilol 12.5 mg tablet 12.5 mg PO BID bp #180 tabs 05/17/23 [Rx Last Taken Unknown] guaifenesin 1,200 mg tablet, extended release 12 hr 1,200 mg PO Q12H PRN congestion 05/17/23 [History Last Taken Unknown] clopidogrel 75 mg tablet 75 mg PO DAILY #30 tabs 06/18/23 [Rx Last Taken Unknown] pantoprazole 40 mg tablet,delayed release 40 mg PO BID #60 tabs 06/18/23 [Rx Last Taken Unknown] sucralfate 1 gram tablet 1 g PO 1HR_ACHS #120 tabs 06/18/23 [Rx Last Taken Unknown] Allergy/AdvReac Type Severity Reaction Status Date / Time Penicillins Allergy Hives Verified 06/07/23 16:12 adhesive tape AdvReac Other Verified 06/07/23 16:12 Family History Mother Heart disease Father No problems noted. Surgical History H/O four vessel coronary artery bypass graft (~04/16/13) Hx of colonoscopy Hx of esophagogastroduodenoscopy Social History household members: family Smoking Status: Former smoker quit date: 03/05/10 how long ago did patient quit smoking: Quit ~ 13 yrs prior, smoked 3 ppd since in her 20s until quit. alcohol intake: current alcohol intake frequency: holidays/special occasions only substance use type: does not use ROS ROS Narrative GENERAL: denies fever, chills, night sweats, weight loss, anorexia HEENT: denies headache, sinus congestion, or drainage, dysphagia RESPIRATORY: shortness of breath, dyspnea on exertion CARDIAC: denies chest pain, palpitations, orthopnea, PND GASTROINTESTINAL: denies abdominal pain, nausea, vomiting, melena, GENITOURINARY: denies dysuria, urgency, frequency, heamaturia EXTREMITY: denies swelling MUSCULOSKELETAL: denies current joint pain or tenderness NEUROLOGIC: denies focal numbness, weakness, tingling HEMATOLOGIC: denies easy bruising and/or hemorrhage INTEGUMENT: denies rashes PSYCHIATRIC: denies suicidal or homicidal ideation Vital Signs Vital Signs Vital Signs: 07/02/23 06:34 07/02/23 06:38 07/02/23 06:41 Temperature 98.4 F 98.4 F Temperature Source Oral Oral Pulse Rate 74 74 Respiratory Rate 22 H 22 H Respiratory Effort Normal Non-Labored Respiratory Depth Normal Respiratory Pattern Tachypnea Blood Pressure 144/59 H 144/59 H Blood Pressure Mean 87 87 Pulse Ox 95 95 Oxygen Delivery Method Nasal Cannula Nasal Cannula Nasal Cannula Oxygen Flow Rate (L/min) 2 2 2 07/02/23 07:34 07/02/23 07:38 07/02/23 08:15 Temperature 97.9 F Temperature Source Temporal Pulse Rate 69 69 68 Respiratory Rate 18 18 17 Respiratory Effort Respiratory Depth Respiratory Pattern Blood Pressure 122/50 H 122/50 H 146/48 H Blood Pressure Mean 74 74 80 Pulse Ox 98 98 97 Oxygen Delivery Method Nasal Cannula Nasal Cannula Nasal Cannula Oxygen Flow Rate (L/min) 2 07/02/23 08:15 Temperature 97.1 F L Temperature Source Oral Pulse Rate 68 Respiratory Rate 17 Respiratory Effort Respiratory Depth Respiratory Pattern Blood Pressure 146/48 H Blood Pressure Mean 80 Pulse Ox 97 Oxygen Delivery Method Nasal Cannula Oxygen Flow Rate (L/min) 2 Weight Weight: 79.1 kg Body Mass Index (BMI) 31.8 Physical Exam Narrative GENERAL: Dyspneic at rest HEENT: Atraumatic; normocephalic EYES; Anicteric, Normal Conjunctiva NECK; supple, normal thyroid, RESPIRATORY: Diminished to auscultation CARDIOVASCULAR: Regular S1 S2, GI: soft, normoactive bowel sounds, : No Renal angle tenderness; EXTREMITIES: edema, no clubbing, MUSCULOSKELETAL: no muscle wasting NEURO: Awake; no lateralizing signs. SKIN: No Rash PSYCH; Flat affect Results Lab / Micro Data 07/02/23 06:48 07/02/23 06:48 Labs: Laboratory Results - last 24 hr 07/02/23 06:48: WBC 8.8, RBC 3.25 L, Hgb 9.2 L, Hct 32.1 L, MCV 98.8, MCH 28.3, MCHC 28.7 L, RDW Std Deviation 65.9 H, RDW Coeff of Becca 18.6 H, Plt Count 324, MPV 10.2, Immature Gran % (Auto) 1.900 H, Neut % (Auto) 77.1 H, Lymph % (Auto) 8.6 L, [place] % (Auto) 7.8, Eos % (Auto) 3.7, Baso % (Auto) 0.9, Absolute Neuts (auto) 6.8, Absolute Lymphs (auto) 0.76 L, Nucleated RBC % 0.3, Polychromasia 1+, Anisocytosis RARE, Sodium 140, Potassium 4.6, Chloride 103, Carbon Dioxide 33.0 H, Anion Gap 4 L, BUN 31 H, Creatinine 7.00 H, Estim Creat Clear Calc 6.66, Est GFR (MDRD) Af Amer 7 L, Est GFR (MDRD) Non-Af 6 L, BUN/Creatinine Ratio 4.4 L, Glucose 124 H, Calcium 8.3 L, Troponin I High Sens 10, B-Natriuretic Peptide 395.8 H Micro: Microbiology 07/02/23 06:55 Mucosa - Nose SARS-CoV-2, Influenza & RSV (PCR) - Final SARS-CoV-2 (COVID 19 PCR) Imaging Radiology Impression Chest X-Ray 07/02/23 06:42 IMPRESSION: Bibasilar atelectasis versus infiltrates and small bilateral pleural effusions. Electronically Signed: Dev Munson DO at 7:45 EDT , Assessment & Plan Assessment/Plan (1) Acute dyspnea: PLAN: Plan Patient is a 77-year-old lady with history of end-stage renal disease presenting with progressive shortness of breath 1. Acute hypoxia ? Multifactorial including fluid overload due to congestive heart failure, Admitted to monitored bed for treatment of underlying clinical condition 2. Acute on chronic congestive heart failure with preserved ejection fraction Echo from 06/15/2023 demonstrated EF of 60 %. Admitted to monitored bed consult placed to nephrology for dialysis orders to manage patient for fluid overload status 3. End-stage renal disease ? On hemodialysis on Wednesdays and Fridays consult placed to nephrology 4.Anemia - Secondary to chronic disorder as well as chronic blood loss anemia from recent upper GI monitoring H&H and transfuse if patient becomes symptomatic or hemoglobin falls below 7 5. Recent upper GI bleed Patient underwent EGD on 06/08/2023 and showed grade 2 esophageal varices with oozing gastric ulcer that was injected and treated with heater probe as well as a single gastric polyp that was resected and retrieved and a single bleeding angiodysplastic lesion in the duodenum she apparently did develop recurrent bleeding resulting in a new repeat EGD on 06/10/2023 that demonstrated grade 1 esophageal varices with red blood in the entire stomach, oozing gastric ulcer with a visible vessel that was treated with heater probe and hemostatic spray and injected, a spurting gastric ulcer with visible vessel that was treated with heater probe, hemostatic spray and clips were placed. Remains on PPI and Carafate 6. Esophageal varices ? Noted on recent EGD 7. Coronary artery disease ? Status post CABG. Patient remains on guideline directed medical therapy 8. Hypertension - Blood pressure controlled, home medications continued with dose adjustment as needed 9. Dyslipidemia -Patient is on statin therapy, continued at home dose 10. COPD ? Currently not in exacerbation bronchodilator treatment as needed 11. Pulmonary hypertension ? Secondary to COPD supplemental oxygen and bronchodilator treatment as needed 12. Diabetes mellitus type 2 ? Currently manage on diet please on Accu-Cheks before meals and at bedtime with sliding scale coverage 13. Class I obesity with BMI of 31.5 ? Complicating care weight loss advised 14. Chronic hypoxic respiratory failure secondary to COPD 15. Restless leg syndrome ? Patient is on Mirapex at home 16. Depression with anxiety ? Patient is on amitriptyline 17. DVT prophylaxis ? Bilateral SCDs only given patient recent GI bleed Time spent in the patient's overall evaluation,decision-making process, review of diagnostic data, adjustment of management, discussion with other providers, nursing nursing and ancillary staff involved in patient's care documentation, 78 Minutes Advance planning; did discuss with the patient and family regarding advanced directives as well as CODE STATUS. Did explain the various scenarios involved ( FULL CODE, DNR CCA, DNR CCA with no intubation, and DNR CC and what each meant) patient elected to be DNR CCA no intubation. Order was placed. Time spent on discussion 18 minutes. Charges/Coding Visit Charges Inpatient E&M: 18840 Init Hosp L3 Procedures Hospitalists Procedures: 88596 Advncd Care Plan 30 Min
--- NOTE | 2023-07-02 08:40 | NURSING ---
PCU KITTOE DYSPNEA, HYPOXIA, COVID 19, CHRONIC KIDNEY DISEASE
--- NOTE | 2023-07-02 11:05 | CON.PCM.RE_ITS ---
Assessment & Plan Assessment/Plan (1) ESRD (end stage renal disease): PLAN: Dialysis to be arranged today HPI Consult Data Date of Consult: 07/02/23 HPI Narrative Reason for Consultation: ESRD HPI Narrative: JULISSA VEGA, is a 77 F who presents to the hospital with shortness of breath. Nephrology on consultation in view of ESRD. ESRD on hemodialysis, goes to [facility]. Had several admissions. Currently admitted with suspicion of COVID versus fluid overload. [facility] Medical History (HFpEF) heart failure with preserved ejection fraction Anemia Anemia in chronic kidney disease Anxiety Arthritis Atherosclerotic heart disease of [place] coronary artery without angina pectoris CAD (coronary artery disease) Carotid artery stenosis Carotid bruit Chronic diastolic heart failure Chronic hyponatremia Chronic respiratory failure with hypoxia CKD (chronic kidney disease), stage III Congestive heart failure COPD (chronic obstructive pulmonary disease) COVID-19 Diabetes mellitus type 2 in obese Dyslipidemia ESRD on dialysis Essential hypertension Gastritis History of blood transfusion History of renal dialysis History of upper gastrointestinal bleeding HTN (hypertension) Iron deficiency anemia Leg cramps Leukocytosis Mitral regurgitation Morbid obesity with BMI of 40.0-44.9, adult Non-rheumatic mitral regurgitation Non-rheumatic tricuspid valve insufficiency On home oxygen therapy ELAINE (obstructive sleep apnea) Pleural effusion Pulmonary hypertension Restless leg syndrome Secondary pulmonary hypertension Shortness of breath on exertion Smoking greater than 40 pack years Valvular heart disease Wears dentures Wears glasses Home Medications amitriptyline 100 mg tablet 100 mg PO QHS mental health 04/09/13 [History Last Taken 05/13/22 21:00] atorvastatin 80 mg tablet 80 mg PO DAILY CHOLESTEROL 10/25/17 [History Last Taken 05/13/22 21:30] amlodipine 10 mg tablet 10 mg PO DAILY BP 06/01/18 [History Last Taken 05/14/22 08:30] doxazosin 8 mg tablet 8 mg PO QHS blood pressure 08/20/18 [History Last Taken 05/13/22 21:30] hydralazine 100 mg tablet 100 mg PO TID diuretic 01/01/19 [History Last Taken 05/14/22 14:00] bumetanide 2 mg tablet 2 mg PO DAILY diuretic 03/14/19 [History Last Taken 05/14/22 08:30] nitroglycerin 0.4 mg sublingual tablet 0.4 mg sublingual Q5M PRN CHEST PAIN 03/14/19 [History Last Taken Unknown] albuterol sulfate 90 mcg/actuation aerosol inhaler (ProAir HFA) 2 puff inhal ation Q6H PRN sob 09/30/20 [History Last Taken 05/13/22 08:30] ropinirole 0.5 mg tablet 1.5 mg PO .COMPLEX restless legs 07/07/21 [History Last Taken 05/13/22 21:30] acetaminophen 500 mg tablet (Acetaminophen Extra Strength) 1,000 mg PO DAILY PRN Pain 05/04/22 [History Last Taken 05/14/22 14:00] ascorbic acid (vitamin C) 500 mg tablet 500 mg PO DAILY SUPPLEMENT 05/04/22 [History Last Taken 05/14/22 08:30] sevelamer carbonate 800 mg tablet 800 mg PO TIDCM PHOSPHATE 05/04/22 [History Last Taken 05/14/22 14:00] isosorbide mononitrate 60 mg tablet,extended release 24 hr 60 mg PO DAILY heart 05/14/22 [History Last Taken 05/13/22 21:30] albuterol sulfate 1.25 mg/3 mL solution for nebulization 1.25 mg (3 mL) inhalation 4X/DAY Wheezing #360 mL 03/20/23 [Rx Last Taken Unknown] budesonide-formoterol HFA 160 mcg-4.5 mcg/actuation aerosol inhaler (Symbicort) 2 inh inhalation BID breathing #3 ea 05/01/23 [Rx Last Taken Unknown] carvedilol 12.5 mg tablet 12.5 mg PO BID bp #180 tabs 05/17/23 [Rx Last Taken Unknown] guaifenesin 1,200 mg tablet, extended release 12 hr 1,200 mg PO Q12H PRN congestion 05/17/23 [History Last Taken Unknown] clopidogrel 75 mg tablet 75 mg PO DAILY #30 tabs 06/18/23 [Rx Last Taken Unknown] pantoprazole 40 mg tablet,delayed release 40 mg PO BID #60 tabs 06/18/23 [Rx Las t Taken Unknown] sucralfate 1 gram tablet 1 g PO 1HR_ACHS #120 tabs 06/18/23 [Rx Last Taken Unknown] Allergy/AdvReac Type Severity Reaction Status Date / Time Penicillins Allergy Hives Verified 06/07/23 16:12 adhesive tape AdvReac Other Verified 06/07/23 16:12 Family History Mother Heart disease Father No problems noted. Surgical History H/O four vessel coronary artery bypass graft (~04/16/13) Hx of colonoscopy Hx of esophagogastroduodenoscopy Social History household members: family Smoking Status: Former smoker quit date: 03/05/10 how long ago did patient quit smoking: Quit ~ 13 yrs prior, smoked 3 ppd since in her 20s until quit. alcohol intake: current alcohol intake frequency: holidays/special occasions only substance use type: does not use ROS ROS Narrative Negative except above Physical Exam Narrative Exam minimize due to COVID Lab / Micro Data 07/02/23 06:48 07/02/23 06:48 Labs: Laboratory Results - last 24 hr 07/02/23 06:48: WBC 8.8, RBC 3.25 L, Hgb 9.2 L, Hct 32.1 L, MCV 98.8, MCH 28.3, MCHC 28.7 L, RDW Std Deviation 65.9 H, RDW Coeff of Becca 18.6 H, Plt Count 324, MPV 10.2, Immature Gran % (Auto) 1.900 H, Neut % (Auto) 77.1 H, Lymph % (Auto) 8.6 L, [place] % (Auto) 7.8, Eos % (Auto) 3.7, Baso % (Auto) 0.9, Absolute Neuts (auto) 6.8, Absolute Lymphs (auto) 0.76 L, Nucleated RBC % 0.3, Polychromasia 1+, Anisocytosis RARE, Sodium 140, Potassium 4.6, Chloride 103, Carbon Dioxide 33.0 H, Anion Gap 4 L, BUN 31 H, Creatinine 7.00 H, Estim Creat Clear Calc 6.66, Est GFR (MDRD) Af Amer 7 L, Est GFR (MDRD) Non-Af 6 L, BUN/Creatinine Ratio 4.4 L, Glucose 124 H, Calcium 8.3 L, Troponin I High Sens 10, B-Natriuretic Peptide 395.8 H Micro: Microbiology 07/02/23 06:55 Mucosa - Nose SARS-CoV-2, Influenza & RSV (PCR) - Final SARS-CoV-2 (COVID 19 PCR) Imaging Radiology Impression Chest X-Ray 07/02/23 06:42 IMPRESSION: Bibasilar atelectasis versus infiltrates and small bilateral pleural effusions. Electronically Signed: Dev Munson DO at 7:45 EDT ,
[2023-07-02] MEDS: 0.9% Normal Saline 1,000 ML IV.SOLN. 1000 ML OPERA.SITE (12:10)
[2023-07-02] MEDS: 0.9% Saline Lock 10 ML Syringe IV ×3 (12:13→16:21)
[2023-07-02] MEDS: PureFlow B 2K Dialysis Soln 1 BAG 6 BAG PF (12:13)
[2023-07-02] MEDS: Heparin 10,000 UNITS/10 ML Vial IV (14:43)
[2023-07-02] MEDS: hydrALAZINE 50 MG Tablet 100 MG PO ×2 (15:29→21:18)
[2023-07-02] MEDS: Ondansetron 4 MG/2 ML Vial IV (16:21)
[2023-07-02] MEDS: Albuterol 2.5 MG/3 ML VIAL.NEB. INHALATION (17:30)
[2023-07-02] MEDS: Budesonide Respules 0.5 MG/2 ML AMPUL.NEB. INHALATION (17:30)
[2023-07-02] MEDS: Sucralfate 1 GM Tablet PO (21:20)
[2023-07-02] MEDS: Doxazosin 4 MG Tablet 8 MG PO (21:20)
[2023-07-02] MEDS: Carvedilol 12.5 MG Tablet PO (21:20)
[2023-07-02] MEDS: Amitriptyline 100 MG Tablet PO (21:21)
[2023-07-02] MEDS: Heparin Injection (Vial) 5,000 UNIT/ML VIAL 5000 UNIT SC (21:21)
[2023-07-02] MEDS: Atorvastatin Calcium 80 MG Tablet PO (21:22)
[2023-07-02] MEDS: Pramipexole Di-HCl 0.25 MG Tablet 0.75 MG PO (21:24)
[2023-07-02] MEDS: Famotidine 20 MG Tablet PO (21:24)
[2023-07-02] MEDS: Pantoprazole Sodium 40 MG Tablet PO (21:28)
[2023-07-03] VITALS (22 sets, daily range): BP systolic 105–191; BP diastolic 48–98; PULSE 66–102; RESP 12–25; TEMP 36.7–36.9; O2SAT 91–99; BMI 30.5; BMI 29.4
[2023-07-03] MEDS: hydrALAZINE 50 MG Tablet 100 MG PO ×3 (05:59→21:19)
[2023-07-03] MEDS: Sucralfate 1 GM Tablet PO ×3 (06:00→21:20)
[2023-07-03 06:57] LABS: Absolute Lymphocyte Count 0.66 X10^3/uL (0.83-4.51); Basophil# 0.05 X10^3/uL; Basophil% 0.7 % (0-1); Eosinophil# 0.23 X10^3/uL; Hematocrit 32.9 % (37-47); Hemoglobin 9.3 g/dL (12.0-15.0); Lymphocyte # 0.66 X10^3/ul (0.83-4.51); Lymphocyte % 8.7 % (19-41); Mean Corp Hgb Conc 28.3 g/dL (32-36); Mean Corpuscular Hgb 28.1 pg (27.0-32.0); Mean Corpuscular Volume 99.4 fL (81-99); Monocyte# 0.59 X10^3/uL; Monocyte% 7.7 % (0-10); NRBC Flagged by Analyzer 0 % (0-5); Neutrophil # 5.99 X10^3/uL (2.7-7.7); Neutrophil % 78.5 % (47-70); Platelet Count 274 K/mm3 (150-450); RBC Distribution Width CV 18.2 % (11.6-14.6); RBC Distribution Width SD 64.8 fl (35.1-43.9); Red Blood Count 3.31 M/mm3 (4.2-5.4); White Blood Count 7.6 K/mm3 (4.4-11.0)
[2023-07-03 07:19] LABS: Anion Gap 4 (5-15); BUN 27 mg/dL (7-18); BUN/Creat Ratio 4.6 RATIO (10-20); Calcium,Total 8.3 mg/dL (8.5-10.1); Chloride 104 mmol/L (98-107); Creatinine, Serum 5.85 mg/dL (0.55-1.02); EST Glomerular Filtration Rate 8 mL/min (>60); Est Glom Filt Rate - Afr Amer 9 mL/min (>60); Estimated Creatinine Clearance 7.77 ml/min; Glucose 101 mg/dL (74-106); Magnesium 2.1 mg/dL (1.6-2.6); Phosphorus 4.9 mg/dL (2.5-4.9); Potassium 4.8 mmol/L (3.5-5.1); Sodium Level 138 mmol/L (136-145)
[2023-07-03] MEDS: Albuterol 2.5 MG/3 ML VIAL.NEB. INHALATION ×2 (07:31→20:19)
[2023-07-03] MEDS: Budesonide Respules 0.5 MG/2 ML AMPUL.NEB. INHALATION (07:31)
[2023-07-03] MEDS: Carvedilol 12.5 MG Tablet PO ×2 (08:08→21:19)
[2023-07-03] MEDS: Isosorbide Mononitrate 60 MG Tablet PO (08:08)
[2023-07-03] MEDS: SEVELAMER CARBONATE 800 MG TABLET PO ×2 (08:09→16:05)
[2023-07-03] MEDS: Heparin Injection (Vial) 5,000 UNIT/ML VIAL 5000 UNIT SC ×2 (08:09→21:19)
[2023-07-03] MEDS: Pramipexole Di-HCl 0.5 MG Tablet PO ×2 (08:10→16:05)
[2023-07-03] MEDS: Ascorbic Acid 500 MG Tablet PO (08:10)
[2023-07-03] MEDS: Bumetanide 2 MG Tablet PO (08:11)
[2023-07-03] MEDS: Pantoprazole Sodium 40 MG Tablet PO ×2 (08:13→21:20)
[2023-07-03 09:37] LABS: Allen Test Positive; Base Excess 3 mmol/L (-2 to +2); Bicarbonate 28.1 mmol/L (22-26); Blood Gas Specimen Type ART; Mode Not entered; O2 Delivery Device Cannula; PO2 67 mmHG (75-100); SITE L Radial; SO2 92 % (95-99); Total Carbon Dioxide 30 mmol/L; pCO2 49.9 mmHg (35-45); pH 7.36 (7.35-7.45)
--- NOTE | 2023-07-03 09:39 | PCM.PN.HOSP ---
Reason for Visit Reason for Visit: Diagnoses Dyspnea, unspecified (07/02/23) Subjective Subjective Patient seen much more lethargic than the day prior. Objective Data Objective Data Vital Signs: Vital Signs Temp Pulse Resp BP Pulse Ox O2 Del Method O2 Flow Rate 98.5 F 72 16 142/50 H 92 Nasal Cannula 3 07/03/23 03:25 07/03/23 05:59 07/03/23 03:25 07/03/23 03:25 07/03/23 03:25 07/03/23 03:46 07/03/23 03:46 Oxygen Flow Rate (L/min) 3 Oxygen Delivery Method Nasal Cannula Weight: 75.3 kg Body Mass Index (BMI) 30.5 Intake & Output: Intake and Output for Last 24 Hours 07/01/23 07/02/23 07/03/23 23:59 23:59 23:59 Intake Total 680 / 680 200 / 200 Output Total 2850 / 2850 0 / 0 Balance -2170 / -2170 200 / 200 Lab / Micro Data 07/03/23 06:13 07/03/23 06:13 Labs: Laboratory Results - last 24 hr 07/03/23 06:13: WBC 7.6, RBC 3.31 L, Hgb 9.3 L, Hct 32.9 L, MCV 99.4 H, MCH 28.1, MCHC 28.3 L, RDW Std Deviation 64.8 H, RDW Coeff of Becca 18.2 H, Plt Count 274, MPV 10.0, Immature Gran % (Auto) 1.400 H, Neut % (Auto) 78.5 H, Lymph % (Auto) 8.7 L, [place] % (Auto) 7.7, Eos % (Auto) 3.0, Baso % (Auto) 0.7, Absolute Neuts (auto) 6.0, Absolute Lymphs (auto) 0.66 L, Nucleated RBC % 0, Sodium 138, Potassium 4.8, Chloride 104, Carbon Dioxide 30.0, Anion Gap 4 L, BUN 27 H, Creatinine 5.85 H, Estim Creat Clear Calc 7.77, Est GFR (MDRD) Af Amer 9 L, Est GFR (MDRD) Non-Af 8 L, BUN/Creatinine Ratio 4.6 L, Glucose 101, Calcium 8.3 L, Phosphorus 4.9, Magnesium 2.1 Micro: Microbiology 07/02/23 11:05 Nasal Secretion SARS-CoV-2 Antigen (Rapid) - Final 07/02/23 06:55 Mucosa - Nose SARS-CoV-2, Influenza & RSV (PCR) - Final SARS-CoV-2 (COVID 19 PCR) ABG Data ABG results: ABG 07/03/23 09:34 Specimen Type ART Sample Site L Radial pH 7.36 Bicarbonate Actual 28.1 H Total CO2 30 Base Excess 3 H O2 Saturation 92 L O2 % 4.0 ABG pCO2 49.9 H ABG pO2 67 L Abram Test Positive O2 Delivery Device Cannula Vent Mode Not entered Physical Exam Narrative GENERAL: Dyspneic at rest HEENT: Atraumatic; normocephalic EYES; Anicteric, Normal Conjunctiva NECK; supple, normal thyroid, RESPIRATORY: Diminished to auscultation CARDIOVASCULAR: Regular S1 S2, GI: soft, normoactive bowel sounds, : No Renal angle tenderness; EXTREMITIES: edema, no clubbing, MUSCULOSKELETAL: no muscle wasting NEURO: Awake; no lateralizing signs. SKIN: No Rash PSYCH; Flat affect Assessment & Plan Assessment/Plan (1) Acute dyspnea: PLAN: Plan Patient is a 77-year-old lady with history of end-stage renal disease presenting with progressive shortness of breath 1. Acute hypoxic and hypercapnic ? Multifactorial including fluid overload due to congestive heart failure, COPD admitted to monitored bed for treatment of underlying clinical condition ? 07/03/2023; patient seen much more lethargic than usual ABGs obtained did demonstrate hypercapnic respiratory failure patient placed on noninvasive ventilation BiPAP 2. Acute on chronic congestive heart failure with preserved ejection fraction Echo from 06/15/2023 demonstrated EF of 60 %. Admitted to monitored bed consult placed to nephrology for dialysis orders to manage patient for fluid overload status 3. End-stage renal disease ? On hemodialysis on Wednesdays and Fridays consult placed to nephrology 4. Acute metabolic encephalopathy ? Secondary to hypercapnic respiratory failure from COPD, plan is to treat underlying clinical condition 5. COPD with acute exacerbation - Patient started on bronchodilator treatment, systemic steroid as well as antibiotic therapy. Patient placed on oxygen titrated to keep saturation greater than 90. 6.Anemia - Secondary to chronic disorder as well as chronic blood loss anemia from recent upper GI monitoring H&H and transfuse if patient becomes symptomatic or hemoglobin falls below 7 7. Recent upper GI bleed Patient underwent EGD on 06/08/2023 and showed grade 2 esophageal varices with oozing gastric ulcer that was injected and treated with heater probe as well as a single gastric polyp that was resected and retrieved and a single bleeding angiodysplastic lesion in the duodenum she apparently did develop recurrent bleeding resulting in a new repeat EGD on 06/10/2023 that demonstrated grade 1 esophageal varices with red blood in the entire stomach, oozing gastric ulcer with a visible vessel that was treated with heater probe and hemostatic spray and injected, a spurting gastric ulcer with visible vessel that was treated with heater probe, hemostatic spray and clips were placed. Remains on PPI and Carafate 8. Esophageal varices ? Noted on recent EGD 9. Dyslipidemia -Patient is on statin therapy, continued at home dose 10. COPD ? Currently not in exacerbation bronchodilator treatment as needed 11. Pulmonary hypertension ? Secondary to COPD supplemental oxygen and bronchodilator treatment as needed 12. Diabetes mellitus type 2 ? Currently manage on diet please on Accu-Cheks before meals and at bedtime with sliding scale coverage 13. Class I obesity with BMI of 31.5 ? Complicating care weight loss advised 14. Coronary artery disease ? Status post CABG. Patient remains on guideline directed medical therapy 15 . Hypertension - Blood pressure controlled, home medications continued with dose adjustment as needed 16. Chronic hypoxic respiratory failure secondary to COPD 17. Restless leg syndrome ? Patient is on Mirapex at home 18. Depression with anxiety ? Patient is on amitriptyline 19. DVT prophylaxis ? Bilateral SCDs only given patient recent GI bleed Time spent in the patient's overall evaluation,decision-making process, review of diagnostic data, adjustment of management, discussion with other providers, nursing nursing and ancillary staff involved in patient's care documentation, discussion with patient's family member 55 Minutes Charges/Coding Visit Charges Inpatient E&M: 04481 [facility] Hosp L3
[2023-07-03] MEDS: amLODIPine 10 MG Tablet PO (10:19)
[2023-07-03] MEDS: levoFLOXacin 750 MG Tablet PO (10:19)
--- NOTE | 2023-07-03 10:45 | CASEMGMT ---
Discharge Planning Resumption HH order sent via [facility] to [facility]. Lani Mckinley, Discharge Planning Asst.
--- NOTE | 2023-07-03 10:58 | PCM.PN.REN ---
Subjective Subjective Resting in bed. Oxygenation requirements worsened this morning now patient is on BiPAP Objective Data Objective Data Vital Signs: Vital Signs Temp Pulse Resp BP Pulse Ox O2 Del Method O2 Flow Rate 98.5 F 78 20 H 142/50 H 91 Nasal Cannula 4 07/03/23 03:25 07/03/23 07:11 07/03/23 07:11 07/03/23 03:25 07/03/23 07:11 07/03/23 07:11 07/03/23 07:11 Oxygen Flow Rate (L/min) 4 Oxygen Delivery Method Nasal Cannula Weight: 75.3 kg Body Mass Index (BMI) 30.5 Intake & Output: Intake and Output for Last 24 Hours 07/01/23 07/02/23 07/03/23 23:59 23:59 23:59 Intake Total 680 / 680 200 / 200 Output Total 2850 / 2850 0 / 0 Balance -2170 / -2170 200 / 200 Lab / Micro Data 07/03/23 06:13 07/03/23 06:13 Labs: Laboratory Results - last 24 hr 07/03/23 06:13: WBC 7.6, RBC 3.31 L, Hgb 9.3 L, Hct 32.9 L, MCV 99.4 H, MCH 28.1, MCHC 28.3 L, RDW Std Deviation 64.8 H, RDW Coeff of Becca 18.2 H, Plt Count 274, MPV 10.0, Immature Gran % (Auto) 1.400 H, Neut % (Auto) 78.5 H, Lymph % (Auto) 8.7 L, [place] % (Auto) 7.7, Eos % (Auto) 3.0, Baso % (Auto) 0.7, Absolute Neuts (auto) 6.0, Absolute Lymphs (auto) 0.66 L, Nucleated RBC % 0, Sodium 138, Potassium 4.8, Chloride 104, Carbon Dioxide 30.0, Anion Gap 4 L, BUN 27 H, Creatinine 5.85 H, Estim Creat Clear Calc 7.77, Est GFR (MDRD) Af Amer 9 L, Est GFR (MDRD) Non-Af 8 L, BUN/Creatinine Ratio 4.6 L, Glucose 101, Calcium 8.3 L, Phosphorus 4.9, Magnesium 2.1 Micro: Microbiology 07/02/23 11:05 Nasal Secretion SARS-CoV-2 Antigen (Rapid) - Final 07/02/23 06:55 Mucosa - Nose SARS-CoV-2, Influenza & RSV (PCR) - Final SARS-CoV-2 (COVID 19 PCR) ABG Data ABG results: ABG 07/03/23 09:34 Specimen Type ART Sample Site L Radial pH 7.36 Bicarbonate Actual 28.1 H Total CO2 30 Base Excess 3 H O2 Saturation 92 L O2 % 4.0 ABG pCO2 49.9 H ABG pO2 67 L Abram Test Positive O2 Delivery Device Cannula Vent Mode Not entered Physical Exam Narrative Alert to name, lethargic, no acute distress S1, S2, RRR Diminished breath sounds with faint scattered rales Abdomen soft, nontender No pitting edema Tunneled dialysis catheter dressing clean, dry and intact Assessment & Plan Assessment/Plan (1) ESRD (end stage renal disease): PLAN: Patient dialyzes at [facility] unit Sunday. Underwent hemodialysis yesterday with fluid removal. This morning patient more lethargic, obtained ABG, oxygen requirements worsened now patient is on BiPAP. Will plan for sequential dialysis today for fluid removal and regular hemodialysis session with fluid removal tomorrow as patient/bp tolerates. Blood pressure is acceptable today. Hemoglobin today 9.3. Discussed with Dr. Leach.
[2023-07-03] MEDS: 0.9% Saline Lock 10 ML Syringe IV ×2 (11:22→13:16)
[2023-07-03] MEDS: 0.9% Normal Saline 1,000 ML IV.SOLN. 1000 ML OPERA.SITE (11:22)
--- NOTE | 2023-07-03 11:30 | CASEMGMT ---
RN CM chart review: Patient was admitted 06/06-06/18/23 for severe anemia. See RN CM assessment from 05/23/23. Patient was discharged to daughter's home with [facility]. Patient returned to [facility] ED on 07/02/23 for SOB and was admitted for CHF. Patient is now requiring bipap at 40%. Patient wear 2-3lpm at home. RN CM in to discuss readmission and discharge needs with daughters as patient is on bipap at this time. Per daughters, patient returned to ED prior to follow-up appt that was scheduled on 07/02/23. Patient was taking medications as prescribed. Patient was Daughters wish for patient to return home with [facility], will monitor for additional needs pending therapy and course of treatment. CM to continue to follow this patient and plan for a safe discharge.
[2023-07-03] MEDS: Heparin 10,000 UNITS/10 ML Vial IV (13:17)
[2023-07-03] MEDS: Pramipexole Di-HCl 0.25 MG Tablet 0.75 MG PO (21:20)
[2023-07-03] MEDS: Atorvastatin Calcium 80 MG Tablet PO (21:22)
[2023-07-03] MEDS: Doxazosin 4 MG Tablet 8 MG PO (21:22)
[2023-07-03] MEDS: Amitriptyline 100 MG Tablet PO (21:23)
[2023-07-04] VITALS (14 sets, daily range): BP systolic 113–244; BP diastolic 35–71; PULSE 73–89; RESP 18–20; TEMP 36.4–36.7; O2SAT 93–98; BMI 29.9
[2023-07-04] MEDS: Sucralfate 1 GM Tablet PO (06:00)
[2023-07-04] MEDS: hydrALAZINE 50 MG Tablet 100 MG PO (06:00)
[2023-07-04 07:02] LABS: Absolute Lymphocyte Count 0.34 X10^3/uL (0.83-4.51); Absolute Neutrophil Count 5.4 X10^3/uL (2.0-7.7); Basophil# 0.02 X10^3/uL; Basophil% 0.3 % (0-1); Hematocrit 32.7 % (37-47); Hemoglobin 9.9 g/dL (12.0-15.0); Lymphocyte # 0.34 X10^3/ul (0.83-4.51); Lymphocyte % 5.7 % (19-41); Mean Corp Hgb Conc 30.3 g/dL (32-36); Mean Corpuscular Hgb 28.9 pg (27.0-32.0); Mean Corpuscular Volume 95.3 fL (81-99); Mean Platelet Vol. 10.5 fl (6.2-12.0); Monocyte# 0.13 X10^3/uL; Monocyte% 2.2 % (0-10); NRBC Flagged by Analyzer 0 % (0-5); Neutrophil # 5.42 X10^3/uL (2.7-7.7); Neutrophil % 90.6 % (47-70); POSITIVE DIFFERENTIAL YES; Platelet Count 294 K/mm3 (150-450); RBC Distribution Width CV 17.7 % (11.6-14.6); RBC Distribution Width SD 60.4 fl (35.1-43.9); Red Blood Count 3.43 M/mm3 (4.2-5.4)
[2023-07-04] MEDS: Albuterol 2.5 MG/3 ML VIAL.NEB. INHALATION ×2 (07:06→13:13)
[2023-07-04 07:25] LABS: Anion Gap 5 (5-15); BUN 37 mg/dL (7-18); BUN/Creat Ratio 5.1 RATIO (10-20); Calcium,Total 7.9 mg/dL (8.5-10.1); Chloride 101 mmol/L (98-107); Creatinine, Serum 7.28 mg/dL (0.55-1.02); EST Glomerular Filtration Rate 6 mL/min (>60); Est Glom Filt Rate - Afr Amer 7 mL/min (>60); Glucose 165 mg/dL (74-106); Potassium 5.5 mmol/L (3.5-5.1); Sodium Level 134 mmol/L (136-145)
--- NOTE | 2023-07-04 07:58 | PCM.PN.HOSP ---
Reason for Visit Reason for Visit: Diagnoses Dyspnea, unspecified (07/02/23) Subjective Subjective Patient seen, currently undergoing dialysis. Much more awake and interactive compared to previous day. Still remains on 4 L oxygen to more than her baseline. Objective Data Objective Data Vital Signs: Vital Signs Temp Pulse Resp BP Pulse Ox O2 Del Method O2 Flow Rate 98.0 F 76 18 113/35 L 93 Nasal Cannula 2 07/04/23 03:22 07/04/23 06:00 07/04/23 03:22 07/04/23 03:22 07/04/23 03:22 07/04/23 03:22 07/04/23 03:22 FiO2 40 07/03/23 14:20 Oxygen Flow Rate (L/min) 2 Oxygen Delivery Method Nasal Cannula Weight: 74.3 kg Body Mass Index (BMI) 29.9 Intake & Output: Intake and Output for Last 24 Hours 07/02/23 07/03/23 07/04/23 23:59 23:59 23:59 Intake Total 680 / 680 290 / 290 Output Total 2850 / 2850 2600 / 2600 0 / 0 Balance -2170 / -2170 -2310 / -2310 0 / 0 Lab / Micro Data 07/04/23 06:35 07/04/23 06:35 Labs: Laboratory Results - last 24 hr 07/04/23 06:35: WBC 6.0, RBC 3.43 L, Hgb 9.9 L, Hct 32.7 L, MCV 95.3, MCH 28.9, MCHC 30.3 L D, RDW Std Deviation 60.4 H, RDW Coeff of Becca 17.7 H, Plt Count 294, MPV 10.5, Immature Gran % (Auto) 1.200 H, Neut % (Auto) 90.6 H, Lymph % (Auto) 5.7 L, [place] % (Auto) 2.2, Eos % (Auto) 0.0, Baso % (Auto) 0.3, Absolute Neuts (auto) 5.4, Absolute Lymphs (auto) 0.34 L, Nucleated RBC % 0, Sodium 134 L, Potassium 5.5 H, Chloride 101, Carbon Dioxide 28.0, Anion Gap 5, BUN 37 H, Creatinine 7.28 H, Estim Creat Clear Calc 6.20, Est GFR (MDRD) Af Amer 7 L, Est GFR (MDRD) Non-Af 6 L, BUN/Creatinine Ratio 5.1 L, Glucose 165 H, Calcium 7.9 L Micro: Microbiology 07/02/23 11:05 Nasal Secretion SARS-CoV-2 Antigen (Rapid) - Final 07/02/23 06:55 Mucosa - Nose SARS-CoV-2, Influenza & RSV (PCR) - Final SARS-CoV-2 (COVID 19 PCR) ABG Data ABG results: ABG 07/03/23 09:34 Specimen Type ART Sample Site L Radial pH 7.36 Bicarbonate Actual 28.1 H Total CO2 30 Base Excess 3 H O2 Saturation 92 L O2 % 4.0 ABG pCO2 49.9 H ABG pO2 67 L Abram Test Positive O2 Delivery Device Cannula Vent Mode Not entered Physical Exam Narrative GENERAL: Dyspneic at rest HEENT: Atraumatic; normocephalic EYES; Anicteric, Normal Conjunctiva NECK; supple, normal thyroid, RESPIRATORY: Diminished to auscultation CARDIOVASCULAR: Regular S1 S2, GI: soft, normoactive bowel sounds, : No Renal angle tenderness; EXTREMITIES: edema, no clubbing, MUSCULOSKELETAL: no muscle wasting NEURO: Awake; no lateralizing signs. SKIN: No Rash PSYCH; Flat affect Assessment & Plan Assessment/Plan (1) Acute dyspnea: PLAN: Plan Patient is a 77-year-old lady with history of end-stage renal disease presenting with progressive shortness of breath 1. Acute hypoxic and hypercapnic ? Multifactorial including fluid overload due to congestive heart failure, COPD admitted to monitored bed for treatment of underlying clinical condition ? 07/03/2023; patient seen much more lethargic than usual ABGs obtained did demonstrate hypercapnic respiratory failure patient placed on noninvasive ventilation BiPAP ? 07/04/2023 BiPAP as has been weaned off patient remains on supplemental oxygen via nasal cannula currently 4 L flow per minute 2. Acute on chronic congestive heart failure with preserved ejection fraction Echo from 06/15/2023 demonstrated EF of 60 %. Admitted to monitored bed consult placed to nephrology for dialysis orders to manage patient for fluid overload status ? 07/04/2023 patient has been tolerated dialysis 3. End-stage renal disease ? On hemodialysis on Wednesdays and Fridays consult placed to nephrology 4. Acute metabolic encephalopathy ? Secondary to hypercapnic respiratory failure from COPD, plan is to treat underlying clinical condition 5. COPD with acute exacerbation - Patient started on bronchodilator treatment, systemic steroid as well as antibiotic therapy. Patient placed on oxygen titrated to keep saturation greater than 90. 6.Anemia - Secondary to chronic disorder as well as chronic blood loss anemia from recent upper GI monitoring H&H and transfuse if patient becomes symptomatic or hemoglobin falls below 7 7. Recent upper GI bleed Patient underwent EGD on 06/08/2023 and showed grade 2 esophageal varices with oozing gastric ulcer that was injected and treated with heater probe as well as a single gastric polyp that was resected and retrieved and a single bleeding angiodysplastic lesion in the duodenum she apparently did develop recurrent bleeding resulting in a new repeat EGD on 06/10/2023 that demonstrated grade 1 esophageal varices with red blood in the entire stomach, oozing gastric ulcer with a visible vessel that was treated with heater probe and hemostatic spray and injected, a spurting gastric ulcer with visible vessel that was treated with heater probe, hemostatic spray and clips were placed. Remains on PPI and Carafate 8. Esophageal varices ? Noted on recent EGD 9. Dyslipidemia -Patient is on statin therapy, continued at home dose 10. COPD ? Currently not in exacerbation bronchodilator treatment as needed 11. Pulmonary hypertension ? Secondary to COPD supplemental oxygen and bronchodilator treatment as needed 12. Diabetes mellitus type 2 ? Currently manage on diet please on Accu-Cheks before meals and at bedtime with sliding scale coverage 13. Class I obesity with BMI of 31.5 ? Complicating care weight loss advised 14. Coronary artery disease ? Status post CABG. Patient remains on guideline directed medical therapy 15 . Hypertension - Blood pressure controlled, home medications continued with dose adjustment as needed 16. Chronic hypoxic respiratory failure secondary to COPD 17. Restless leg syndrome ? Patient is on Mirapex at home 18. Depression with anxiety ? Patient is on amitriptyline 19. DVT prophylaxis ? Bilateral SCDs only given patient recent GI bleed Time spent in the patient's overall evaluation,decision-making process, review of diagnostic data, adjustment of management, discussion with other providers, nursing nursing and ancillary staff involved in patient's care documentation, discussion with patient's family member 35 Minutes Charges/Coding Visit Charges Inpatient E&M: 95932 Subs Hosp L2
[2023-07-04] MEDS: 0.9% Normal Saline 1,000 ML IV.SOLN. 1000 ML OPERA.SITE (08:41)
--- NOTE | 2023-07-04 09:51 | DS.PCM_ITS ---
Providers Date of Admission: 07/02/23 Date of Discharge: 07/04/23 Primary Care Physician: Dr. Levi Laird MD Consultations 07/02/23 09:28 Consult: Nephrology Routine Consulting Provider: Evert Waite Reason for Consult: ESRD EMERGENT Consult: No MD Notified: Yes Date Notified: 07/02/23 Time Notified: 09:28 Method of Notification: Answering Service Reason For Visit: CHF Diagnosis Discharge Diagnosis (1) Acute dyspnea: Status: Acute Code(s): R06.00 - Dyspnea, unspecified Plan Patient is a 77-year-old lady with history of end-stage renal disease presenting with progressive shortness of breath 1. Acute hypoxic and hypercapnic ? Multifactorial including fluid overload due to congestive heart failure, COPD admitted to monitored bed for treatment of underlying clinical condition ? 07/03/2023; patient seen much more lethargic than usual ABGs obtained did demonstrate hypercapnic respiratory failure patient placed on noninvasive ventilation BiPAP ? 07/04/2023 BiPAP as has been weaned off patient remains on supplemental oxygen via nasal cannula currently 4 L flow per minute 2. Acute on chronic congestive heart failure with preserved ejection fraction Echo from 06/15/2023 demonstrated EF of 60 %. Admitted to monitored bed consult placed to nephrology for dialysis orders to manage patient for fluid overload status ? 07/04/2023 patient has been tolerated dialysis 3. End-stage renal disease ? On hemodialysis on Wednesdays and Fridays consult placed to nephrology 4. Acute metabolic encephalopathy ? Secondary to hypercapnic respiratory failure from COPD, plan is to treat underlying clinical condition 5. COPD with acute exacerbation - Patient started on bronchodilator treatment, systemic steroid as well as antibiotic therapy. Patient placed on oxygen titrated to keep saturation greater than 90. 6.Anemia - Secondary to chronic disorder as well as chronic blood loss anemia from recent upper GI monitoring H&H and transfuse if patient becomes symptomatic or hemoglobin falls below 7 7. Recent upper GI bleed Patient underwent EGD on 06/08/2023 and showed grade 2 esophageal varices with oozing gastric ulcer that was injected and treated with heater probe as well as a single gastric polyp that was resected and retrieved and a single bleeding angiodysplastic lesion in the duodenum she apparently did develop recurrent bleeding resulting in a new repeat EGD on 06/10/2023 that demonstrated grade 1 esophageal varices with red blood in the entire stomach, oozing gastric ulcer with a visible vessel that was treated with heater probe and hemostatic spray and injected, a spurting gastric ulcer with visible vessel that was treated with heater probe, hemostatic spray and clips were placed. Remains on PPI and Carafate 8. Esophageal varices ? Noted on recent EGD 9. Dyslipidemia -Patient is on statin therapy, continued at home dose 10. COPD ? Currently not in exacerbation bronchodilator treatment as needed 11. Pulmonary hypertension ? Secondary to COPD supplemental oxygen and bronchodilator treatment as needed 12. Diabetes mellitus type 2 ? Currently manage on diet please on Accu-Cheks before meals and at bedtime with sliding scale coverage 13. Class I obesity with BMI of 31.5 ? Complicating care weight loss advised 14. Coronary artery disease ? Status post CABG. Patient remains on guideline directed medical therapy 15 . Hypertension - Blood pressure controlled, home medications continued with dose adjustment as needed 16. Chronic hypoxic respiratory failure secondary to COPD 17. Restless leg syndrome ? Patient is on Mirapex at home 18. Depression with anxiety ? Patient is on amitriptyline 19. DVT prophylaxis ? Bilateral SCDs only given patient recent GI bleed Time spent in the patient's overall evaluation,decision-making process, review of diagnostic data, adjustment of management, discussion with other providers, nursing nursing and ancillary staff involved in patient's care documentation, discussion with patient's family member 35 Minutes Medications at Discharge Home Medications amitriptyline 100 mg tablet 100 mg PO QHS mental health 04/09/13 atorvastatin 80 mg tablet 80 mg PO DAILY CHOLESTEROL 10/25/17 amlodipine 10 mg tablet 10 mg PO DAILY BP 06/01/18 doxazosin 8 mg tablet 8 mg PO QHS blood pressure 08/20/18 hydralazine 100 mg tablet 100 mg PO TID diuretic 01/01/19 bumetanide 2 mg tablet 2 mg PO DAILY diuretic 03/14/19 nitroglycerin 0.4 mg sublingual tablet 0.4 mg sublingual Q5M PRN CHEST PAIN 03/14/19 albuterol sulfate 90 mcg/actuation aerosol inhaler (ProAir HFA) 2 puff inhalat ion Q6H PRN sob 09/30/20 ropinirole 0.5 mg tablet 1.5 mg PO .COMPLEX restless legs 07/07/21 acetaminophen 500 mg tablet (Acetaminophen Extra Strength) 1,000 mg PO DAILY PRN Pain 05/04/22 ascorbic acid (vitamin C) 500 mg tablet 500 mg PO DAILY SUPPLEMENT 05/04/22 sevelamer carbonate 800 mg tablet 800 mg PO TIDCM PHOSPHATE 05/04/22 isosorbide mononitrate 60 mg tablet,extended release 24 hr 60 mg PO DAILY heart 05/14/22 albuterol sulfate 1.25 mg/3 mL solution for nebulization 1.25 mg (3 mL) i nhalation 4X/DAY Wheezing #360 mL 03/20/23 budesonide-formoterol HFA 160 mcg-4.5 mcg/actuation aerosol inhaler (Symbicort) 2 inh inhalation BID breathing #3 ea 05/01/23 carvedilol 12.5 mg tablet 12.5 mg PO BID bp #180 tabs 05/17/23 guaifenesin 1,200 mg tablet, extended release 12 hr 1,200 mg PO Q12H PRN congestion 05/17/23 clopidogrel 75 mg tablet 75 mg PO DAILY #30 tabs 06/18/23 pantoprazole 40 mg tablet,delayed release 40 mg PO BID #60 tabs 06/18/23 sucralfate 1 gram tablet 1 g PO 1HR_ACHS #120 tabs 06/18/23 levofloxacin 500 mg tablet 500 mg PO Q48 #3 tabs 07/04/23 prednisone 20 mg tablet 40 mg (2 x 20 mg) PO DAILY@0800 #10 tabs 07/04/23 Physical Exam Narrative GENERAL: Dyspneic at rest HEENT: Atraumatic; normocephalic EYES; Anicteric, Normal Conjunctiva NECK; supple, normal thyroid, RESPIRATORY: Diminished to auscultation CARDIOVASCULAR: Regular S1 S2, GI: soft, normoactive bowel sounds, : No Renal angle tenderness; EXTREMITIES: edema, no clubbing, MUSCULOSKELETAL: no muscle wasting NEURO: Awake; no lateralizing signs. SKIN: No Rash PSYCH; Flat affect Weight / BMI Weight Weight: 74.3 kg Body Mass Index (BMI) 29.9 ABG / Lab / Microbiology Data 07/04/23 06:35 07/04/23 06:35 Laboratory: Laboratory Results - last 24 hr 07/04/23 06:35: WBC 6.0, RBC 3.43 L, Hgb 9.9 L, Hct 32.7 L, MCV 95.3, MCH 28.9, MCHC 30.3 L D, RDW Std Deviation 60.4 H, RDW Coeff of Becca 17.7 H, Plt Count 294, MPV 10.5, Immature Gran % (Auto) 1.200 H, Neut % (Auto) 90.6 H, Lymph % (Auto) 5.7 L, [place] % (Auto) 2.2, Eos % (Auto) 0.0, Baso % (Auto) 0.3, Absolute Neuts (auto) 5.4, Absolute Lymphs (auto) 0.34 L, Nucleated RBC % 0, Sodium 134 L, Potassium 5.5 H, Chloride 101, Carbon Dioxide 28.0, Anion Gap 5, BUN 37 H, Creatinine 7.28 H, Estim Creat Clear Calc 6.20, Est GFR (MDRD) Af Amer 7 L, Est GFR (MDRD) Non-Af 6 L, BUN/Creatinine Ratio 5.1 L, Glucose 165 H, Calcium 7.9 L Microbiology: Microbiology 07/02/23 11:05 Nasal Secretion SARS-CoV-2 Antigen (Rapid) - Final 07/02/23 06:55 Mucosa - Nose SARS-CoV-2, Influenza & RSV (PCR) - Final SARS-CoV-2 (COVID 19 PCR) D/C Instructions Discharge Diet: 8 Cup Fluid Restriction and Renal Diet Discharge Activity: Return to Normal Activity Call your doctor if you observe: Fever of 101 or Higher, Shortness of breath, Fainting spells and Chest pain Meaningful Use Info Meaningful Use Meaningful Use Diagnoses (Choose all that apply): CHF CHF NICOLAS/ARB ordered at discharge?: No Reason NICOLAS/ARB not ordered?: Not indicated Documented LVEF (%): 60 Ischemic Stroke Statin Dosing Therapy Reference: STATIN DOSE THERAPY REFERENCE: * Patients > 75 years receive moderate or high dose statin therapy. * Patients 75 years or YOUNGER should receive HIGH intensity statin dose unless contraindicated. You will be required to document reason for non-treatment if statin daily dose does not meet guidelines. HIGH DOSE STATIN THERAPY DAILY Atorvastatin > than or = to 40 mg Rosuvastatin > than or = to 20 mg Amlodipine + Atorvastatin > than or = to 2.5/40 mg Ezetimibe + Simvastatin 10/80 mg Simvastatin 80mg Discharge Plan Admission Admit Date/Time: 07/02/23 08:31 Attending Provider: Rogelio Leach Primary Care Provider: Levi Laird Consulting Providers: Evert Waite Discharge Orders/Prescriptions Prescriptions: New prednisone 20 mg Tablet 40 mg PO DAILY@0800 Qty: 10 0RF levofloxacin 500 mg Tablet 500 mg PO Q48 Qty: 3 0RF Continued albuterol sulfate [ProAir HFA] 90 mcg/actuation HFA aerosol inhaler 2 puff inhalation Q6H PRN (Reason: sob) ropinirole 0.5 mg tablet 1.5 mg PO .COMPLEX Patient Comments: 1 mg every morning and afternoon 1.5mg every evening Rx Instructions: 1.5 mg orally QHS; 1 mg orally every morning and afternoon guaifenesin 1,200 mg tablet extended release 12hr 1,200 mg PO Q12H PRN (Reason: congestion) amitriptyline 100 MG tablet 100 mg PO QHS Patient Comments: MENTAL HEALTH atorvastatin 80 MG tablet 80 mg PO DAILY Patient Comments: amlodipine 10 MG tablet 10 mg PO DAILY doxazosin 8 MG tablet 8 mg PO QHS hydralazine 100 mg tablet 100 mg PO TID nitroglycerin 0.4 MG tablet, sublingual 0.4 mg SL Q5M PRN (Reason: CHEST PAIN) bumetanide 2 MG tablet 2 mg PO DAILY acetaminophen [Acetaminophen Extra Strength] 500 mg Tablet 1,000 mg PO DAILY PRN (Reason: Pain) sevelamer carbonate 800 mg tablet 800 mg PO TIDCM ascorbic acid (vitamin C) 500 MG tablet 500 mg PO DAILY isosorbide mononitrate 60 mg tablet extended release 24 hr 60 mg PO DAILY clopidogrel 75 mg Tablet 75 mg PO DAILY Qty: 30 0RF sucralfate 1 gram Tablet 1 g PO 1HR_ACHS Qty: 120 0RF pantoprazole 40 mg Tablet,Delayed Release (Dr/Ec) 40 mg PO BID Qty: 60 0RF albuterol sulfate 1.25 mg/3 mL solution for nebulization 1.25 mg INHALATION 4X/DAY Qty: 360 6RF budesonide-formoterol [Symbicort] 160-4.5 mcg/actuation HFA aerosol inhaler 2 inh INHALATION BID Qty: 3 3RF Rx Instructions: administer with spacer, rinse mouth after each use carvedilol 12.5 mg tablet 12.5 mg PO BID Qty: 180 3RF Rx Instructions: must administer with a meal/food Referrals / Follow Up: Levi Laird MD [Primary Care Provider] - Disposition Disposition (needs filled in before D/C Order can be placed): Home Health Service Charges/Coding Visit Charges Inpatient E&M: 74209 Disch Hosp >30min
[2023-07-04] MEDS: Heparin 10,000 UNITS/10 ML Vial IV (12:15)
--- NOTE | 2023-07-04 12:24 | PHA.DC.MC.R ---
Pharmacy [facility] has performed discharge medication reconciliation and counseling for this patient. 1. LEVOFLOXACIN 500MG PO Q48 X 3 DOSES 2. PREDNISONE 40MG PO DAILYCM X 5 DAYS The patient's discharge medication list was reviewed for discrepancies and discrepancies were resolved. The patient was counseled on the following discharge medications and changes in medications for homegoing were reviewed. The Reason for Use, instructions for use, and potential side effects were reviewed for all new medications. The patient's questions regarding all of their medications were answered. The patient was able to verbally demonstrate an understanding of their discharge medications. Medications at Discharge Home Medications amitriptyline 100 mg tablet 100 mg PO QHS mental health 04/09/13 atorvastatin 80 mg tablet 80 mg PO DAILY CHOLESTEROL 10/25/17 amlodipine 10 mg tablet 10 mg PO DAILY BP 06/01/18 doxazosin 8 mg tablet 8 mg PO QHS blood pressure 08/20/18 hydralazine 100 mg tablet 100 mg PO TID diuretic 01/01/19 bumetanide 2 mg tablet 2 mg PO DAILY diuretic 03/14/19 nitroglycerin 0.4 mg sublingual tablet 0.4 mg sublingual Q5M PRN CHEST PAIN 03/14/19 albuterol sulfate 90 mcg/actuation aerosol inhaler (ProAir HFA) 2 puff inhalation Q6H PRN sob 09/30/20 ropinirole 0.5 mg tablet 1.5 mg PO .COMPLEX restless legs 07/07/21 acetaminophen 500 mg tablet (Acetaminophen Extra Strength) 1,000 mg PO DAILY PRN Pain 05/04/22 ascorbic acid (vitamin C) 500 mg tablet 500 mg PO DAILY SUPPLEMENT 05/04/22 sevelamer carbonate 800 mg tablet 800 mg PO TIDCM PHOSPHATE 05/04/22 isosorbide mononitrate 60 mg tablet,extended release 24 hr 60 mg PO DAILY heart 05/14/22 albuterol sulfate 1.25 mg/3 mL solution for nebulization 1.25 mg (3 mL) inhalation 4X/DAY Wheezing #360 mL 03/20/23 budesonide-formoterol HFA 160 mcg-4.5 mcg/actuation aerosol inhaler (Symbicort) 2 inh inhalation BID breathing #3 ea 05/01/23 carvedilol 12.5 mg tablet 12.5 mg PO BID bp #180 tabs 05/17/23 guaifenesin 1,200 mg tablet, extended release 12 hr 1,200 mg PO Q12H PRN congestion 05/17/23 clopidogrel 75 mg tablet 75 mg PO DAILY #30 tabs 06/18/23 pantoprazole 40 mg tablet,delayed release 40 mg PO BID #60 tabs 06/18/23 sucralfate 1 gram tablet 1 g PO 1HR_ACHS #120 tabs 06/18/23 levofloxacin 500 mg tablet 500 mg PO Q48 #3 tabs 07/04/23 prednisone 20 mg tablet 40 mg (2 x 20 mg) PO DAILY@0800 #10 tabs 07/04/23
[2023-07-04] MEDS: Carvedilol 12.5 MG Tablet PO (12:30)
[2023-07-04] MEDS: Bumetanide 2 MG Tablet PO (12:30)
[2023-07-04] MEDS: amLODIPine 10 MG Tablet PO (12:30)
[2023-07-04] MEDS: Famotidine 20 MG Tablet PO (12:30)
[2023-07-04] MEDS: SEVELAMER CARBONATE 800 MG TABLET PO (12:30)
[2023-07-04] MEDS: Isosorbide Mononitrate 60 MG Tablet PO (12:31)
[2023-07-04] MEDS: Pantoprazole Sodium 40 MG Tablet PO (12:31)
[2023-07-04] MEDS: Pramipexole Di-HCl 0.5 MG Tablet PO (12:32)
[2023-07-04] MEDS: Ascorbic Acid 500 MG Tablet PO (12:32)
--- NOTE | 2023-07-04 12:37 | NURSING ---
Morning medications given late at this time due to dialysis
--- NOTE | 2023-07-04 13:51 | CASEMGMT ---
Patient has order for discharge. Patient maintaining on home oxygen orders. RANDY MONTALVO in to discuss needs at discharge. Patient and daughter states patient will discharge home with resumption of [facility]. Patient has home oxygen in room for at discharge. Patient and daughters want to discuss Palliative care more at home. RANDY MONTALVO informed family that if they would like palliative care in the future to follow-up with PCP, family voiced understanding. Patient and daughters had no further questions or concerns.
--- NOTE | 2023-07-04 14:10 | CASEMGMT ---
Discharge Planning Discharge summary and updated order sent via [facility] to [facility]. Lani Mckinley, Discharge Planning Asst.
== END 2023-07-04 14:29 | disposition home health service (06) | DRG 291 ==
LOC: ED 08:35 → PCU 08:49
PROVIDERS: Emergency Medicine; Admitting Provider Internal Medicine; Emergency Provider Emergency Medicine; PCP Family Medicine; Visit Provider Internal Medicine
DX: I13.2 Hypertensive heart and chronic kidney disease with heart failure and with stage 5 chronic kidney disease, or end stage renal disease (principal); I50.33 Acute on chronic diastolic (congestive) heart failure; J96.21 Acute and chronic respiratory failure with hypoxia; G93.41 Metabolic encephalopathy; K25.4 Chronic or unspecified gastric ulcer with hemorrhage; K26.4 Chronic or unspecified duodenal ulcer with hemorrhage; N18.6 End stage renal disease; J96.22 Acute and chronic respiratory failure with hypercapnia; I85.00 Esophageal varices without bleeding; J44.1 Chronic obstructive pulmonary disease with (acute) exacerbation; I27.20 Pulmonary hypertension, unspecified; E11.22 Type 2 diabetes mellitus with diabetic chronic kidney disease; E66.01 Morbid (severe) obesity due to excess calories; I65.23 Occlusion and stenosis of bilateral carotid arteries; D50.0 Iron deficiency anemia secondary to blood loss (chronic); G25.81 Restless legs syndrome; K31.7 Polyp of stomach and duodenum; F41.8 Other specified anxiety disorders; I25.10 Atherosclerotic heart disease of native coronary artery without angina pectoris; I44.0 Atrioventricular block, first degree; E78.5 Hyperlipidemia, unspecified; Z68.31 Body mass index [BMI] 31.0-31.9, adult; Z86.16 Personal history of COVID-19; Z79.51 Long term (current) use of inhaled steroids; Z79.02 Long term (current) use of antithrombotics/antiplatelets; Z66 Do not resuscitate; Z87.891 Personal history of nicotine dependence; Z95.1 Presence of aortocoronary bypass graft
CPT/HCPCS: 36415; 36600; 71045; 80048; 82803; 83735; 83880; 84100; 84484; 85025; 87631; 87811; 90937; 93005; 94002; 94640; 94762; 97162; 97166; 97530; 97802; 97803; 99285; J7030; A4216; G0257; J2405

== ENCOUNTER 2023-07-13 10:51 | Outpatient (CLI) | payer MEDICARE, MEDICAID, SELFPAY | END 2023-07-13 10:52 | disposition home or self-care (01) | PROVIDERS: PCP Family Medicine | DX: N18.6 End stage renal disease (principal) | CPT/HCPCS: 36415; 86850; 86900; 86901; 86920; 86922 ==

== ENCOUNTER → 2023-07-13 | Outpatient (CLI) | payer MEDICARE, MEDICAID, SELFPAY | END | disposition home or self-care (01) | LOC: LAB.FUTURE 09:51 | PROVIDERS: PCP Family Medicine | DX: N18.6 End stage renal disease (principal) ==